=== PATIENT | female | born 1955 | race Caucasian/White ===

== ENCOUNTER → 2017-10-02 10:42 | Outpatient (CLI) | payer MEDICAID, SELFPAY ==
[2017-10-02 12:28] LABS: Anion Gap 8 (5-15); BUN 33 mg/dL (7-18); BUN/Creat Ratio 27.5 RATIO (10-20); Chloride 107 mmol/L (98-107); EST Glomerular Filtration Rate 48 mL/min (>60); Est Glom Filt Rate - Afr Amer 58 mL/min (>60); Glucose 97 mg/dL (70-110); Potassium 4.2 mmol/L (3.5-5.1); Sodium Level 137 mmol/L (136-145)
== END ==
PROVIDERS: Visit Provider Family Medicine
DX: N28.9 Disorder of kidney and ureter, unspecified (principal)
CPT/HCPCS: 36415; 80048

== ENCOUNTER → 2018-08-20 15:30 | Outpatient (CLI) | payer MEDICAID, SELFPAY ==
[2018-08-20 17:26] LABS: ALB/GLOB Ratio 1.1 RATIO (0.9-2.4); AST(SGOT) 14 U/L (15-37); Alanine Aminotransfer ALT/SGPT 24 U/L (13-56); Albumin, Serum 3.6 g/dL (3.2-5.0); Alkaline Phosphatase 91 U/L (45-117); Anion Gap 7 (5-15); BUN 32 mg/dL (7-18); BUN/Creat Ratio 24.6 RATIO (10-20); Calcium,Total 9.3 mg/dL (8.5-10.1); Chloride 111 mmol/L (98-107); EST Glomerular Filtration Rate 44 mL/min (>60); Est Glom Filt Rate - Afr Amer 53 mL/min (>60); Globulin 3.4 g/dL (2.2-4.2); Glucose 136 mg/dL (74-106); Potassium 3.8 mmol/L (3.5-5.1); Sodium Level 143 mmol/L (136-145)
[2018-08-20 17:32] LABS: Vitamin B12 1358 pg/mL (211-911); Vitamin D,25 Hydroxy 28.3 ng/mL (29.95-100.01)
== END ==
PROVIDERS: Family Provider Family Medicine; PCP Family Medicine; Visit Provider Family Medicine
DX: E55.9 Vitamin D deficiency, unspecified (principal); E53.8 Deficiency of other specified B group vitamins; Z51.81 Encounter for therapeutic drug level monitoring
CPT/HCPCS: 36415; 80053; 82306; 82607

== ENCOUNTER → 2020-02-08 14:49 | Outpatient (CLI) | payer MEDICARE, SELFPAY ==
[2020-02-08 17:06] LABS: Free T3 3.5 pg/mL (2.18-3.98); T4 Free Direct 1.18 ng/dL (0.76-1.46); T4 Total, Thyroxin 9.4 ug/dL (4.8-13.9); Thyroid Stim Hormone (TSH) 2.86 uIU/mL (0.358-3.74)
[2020-02-10 23:50] LABS: Anti-Thyroglobulin AB < 1.0 IU/mL (0.0-0.9); Thyroglobulin, Serum Qt. 4.8 ng/mL (1.5-38.5); Thyroxin Bind Glob (TBG) 18 ug/mL (13-39)
== END ==
PROVIDERS: PCP Family Medicine; Referring Provider Family Medicine; Visit Provider Family Medicine
DX: R53.83 Other fatigue (principal); R79.89 Other specified abnormal findings of blood chemistry
CPT/HCPCS: 36415; 82533; 84432; 84436; 84439; 84442; 84443; 84481; 86800

== ENCOUNTER 2021-10-20 14:00 | Outpatient (RCR) | payer MEDICARE, SELFPAY ==
--- NOTE | 2021-09-22 13:05 | HP.SP.AD_ITS ---
History - History Date of Eval: 09/22/21 Medical Diagnosis (from RX): CEREBAL PALSY Previous speech therapy: No Smoking Status: Never smoker Hx Smoking: No Hx Tobacco Use: No Hx Smoking Exposure: No - Pain Is pain an issue with your current prescribed condition?: No - Personal Right Hearing Abillity: Use of Hearing Aid Left Hearing Abillity: Use of Hearing Aid Visual Assistive Devices: Glasses Patients Living Arrangements: With Significant Other Subjective Oral Motor - Comments Comments: Patient experiencing muscle loss after hospitalization stay for pancreatitis. While hospitalized - recommended to be seen by PT and ST for muscle loss/weakness and speech intelligibility. Patient has extensive dental hx which is the sole reason for speech intelligibility / articulation concerns. Objective Oral Motor - Oral Status Dentition: Missing Teeth - Labial Impairment: WNL Observation at Rest: WNL Closure: WNL Pucker: WNL Retraction: WNL - Lingual Impairment: WNL Protrusion: WNL Retraction: WNL Lateralization: WNL - Jaw Comments Comments: Patient's jaw is not symmetrical - deviates to the left side. - Respiratory Status Respiratory Status: Room Air Other Impressions - Comments Impressions -: Patient referred to PT/ST for muscle loss s/p hospitalization for pancre atitis and difficulty w/ speech. Patient has extensive dental hx including - rotten teeth and inability for oral care as a child, infection in oral cavity in [id number] which caused pt. to pull all her teeth. Patient is edentulous - has ill fitting dentures. Reports that dentures do not fit properly (d/t pt.'s small oral cavity), rub against the gum tissue and causes inflammation, raw spots or bleeding. Cuts or scrapes on the gums can increase the risk of infection. Patient has learned to compensate for speech difficulties. Pt. and family report that she is at baseline for speech intelligibility / articulation. To unfamiliar communication partner (speech therapist) - patient is 98-100% intelligible w/ noted 2-3x pt. left off final consonant. Oral mech WNL - besides jaw out of alignment. Plan - Plan Plan: No further skilled ST warranted at this time. Re-consult speech therapy if condition changes. - Recommendations MBS: No Treatment Warranted: No Education - Patient has Indicated that the Following Identified Educational Needs: None The Patient has indicated that they have no educational or learning abilities that may effect their care.: Yes - Patient Instruction Patient Education: Treatment Plan Other Education: No further skilled ST warranted at this time - please re- consult should status change / worsen. Educated pt. on compensatory strategies to improve speech intelligibility re: slow rate, increase volume, put emphasis on all parts of the word. Patient already uses these compensatory strategies throughout structured / conversational speech. Person Taught: Patient Teaching Method: Discussion Response to teaching: Verbalize understanding
--- NOTE | 2021-09-22 13:50 | HP.PTEVAL ---
Patient's Visit Information SUAD HADDAD is a 66 year old F referred to Physical Therapy by Dr. Awa Hargrove DO with a diagnosis of CP. Date of Evaluation: 09/22/21 Physical Therapist: Phillip Melchor, DPT, OCS, CSCS - Visit Plan Frequency: 1-2x /Week Duration: 2-4 Weeks Plan: 1-2x/week for 1-4 weeks keeping it to a minimum due to cost. Please teach patient gym based LE and postural exercises and balasnce ex and work to I after one visit if possible for Silver Sneakers continuance. - Subjective Dr. Hargrove sent her over a whikle ago after pancreatitis before covid but then covid hit. She was weak at the time. Still feels weak when she lowers down into the tub as this is challenging. was helping her get in and out of tub with grab bar. Can't trust muscles like she used to. Has CP and that was always a problem to some degree but more pronounced now and every day. Steps are done daily and they are hard to do and has someone carry stuff up steps for her. Uses stick to walk with for balance and has used it for 13 years when diagnosed with CP. Was falling alot at that time. No pain usually. No spinning or dizzyness regularly. 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 Not employed. No regular exercises. Spends day working on [employer] work adn studying and research. Mostly sitting. Standing long time is hard due to R LBP. Wants ot dance and needs strength adn balance. - Objective Ambulates with cane into PT aafter speech i. Trasnfers I needing UE support for weakness and l knee pain. Steps are with T only as L hurts and has not used it in years. Also requires rail and some pulling gently. LB and neck aROM min limited but no pain. LE AROM WFL, minor tightness in HS. 3+ strength knees, 3 in hip abd and ext and 4 in ankles. sensation LE WNL to gross light touch. Able to heel rasie easily. reflexes patella and achilles 2/3. UE aROM limited in shoulder flexion but not painful, strength 3+/5. Balance is functional albeit low for her age and pt is hesitant and fearful without cane. 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 Rehabilitation Potential: Fair - Anticipated Interventions Patient/Client Instruction: Educate patient on: Condition, Plan of Care For the Purpose of:: To improve muscle performance and motor function, To increase tolerance to activity/condition/position Therapeutic Exercise to Include: Strength training, Postural training, Flexibilty training For the Purpose of:: To improve muscle performance and motor function, To increase tolerance to activity/condition/position Thank you for the opportunity to evaluate your patient. For Medicare and Medicare HMO plans, please review the plan of care and approve it. It will need to be FAXED BACK to us at [phone] for Medicare purposes. For Medicare only, by signing this I certify the plan of care. Please let me know if there are questions or concerns regarding this plan of care. Physician Signature: Date:
--- NOTE | 2022-01-05 08:09 | HP.PTDCSUM ---
It has been my pleasure to treat SUAD HADDAD referred by Dr. Awa Hargrove DO, with the diagnosis of CP for a total of 2 visit(s). Discharge Date: Please see the following information for a summary of their discharge status. Subjective: Seeing pt for rest of her 2nd visit. Teaching her gym ex's - for her to do on her own after today or she may choose another PT appt to go over gym ex;s again. Objective/Function: bEFORE LEAVING- SHOWED HER WERE ALL MACHINES WERER LOCATED ONCE MORE. PT LEFT HER LIST OF EX'S Goal 1:: Pt I in Silver sneakers exercises in gym for LE and postural strength adn balance Goal Progress: to call if not able Plan: hold til end of December and d/c if no contact. She will call if problems. If there are questions or concerns regarding this patient's physical therapy, please feel free to call me at [phone]. Thank you for the referral of this patient. Sincerely, Phillip Melchor, DPT, OCS, CSCS Balance/Gait/Functional tests - Balance/Special Test Scores Functional Gait Assessment Score: 25 % Disability: 16.6700 Lower Extremity Functional Score: 37
== END 2021-10-20 19:00 | disposition home or self-care (01) ==
LOC: PT 14:00
PROVIDERS: PCP Family Medicine; Referring Provider Family Medicine; Visit Provider Family Medicine
DX: G80.9 Cerebral palsy, unspecified (principal); R53.1 Weakness; R47.89 Other speech disturbances
CPT/HCPCS: 92523; 97110; 97162

== ENCOUNTER → 2023-06-05 | Outpatient (CLI) | payer MEDICARE, SELFPAY | END | disposition home or self-care (01) | LOC: BFHLAB 15:11 → LABSPEC 15:14 | PROVIDERS: PCP Family Medicine; Referring Provider Family Medicine; Visit Provider Family Medicine | DX: N39.0 Urinary tract infection, site not specified (principal) | CPT/HCPCS: 87077; 87086; 87088; 87186 ==

== ENCOUNTER 2023-07-25 17:01 | Inpatient (IN) | payer MEDICARE, SELFPAY ==
[2023-07-25] VITALS (12 sets, daily range): BP systolic 136–213; BP diastolic 82–124; PULSE 55–86; RESP 17–22; TEMP 36.2–36.8; O2SAT 96–97; BMI 29.5; BMI 28.3
--- NOTE | 2023-07-25 17:24 | EDS_ITS ---
HPI History of Present Illness Chief Complaint: Chest Pain PFSH PFSH Allergy/AdvReac Type Severity Reaction Status Date / Time No Known Allergies Allergy Verified 07/25/23 17:02 Social History Smoking Status: Never smoker EXAM Physical Exam Const Vital Signs: 07/25/23 17:02 07/25/23 17:08 07/25/23 17:25 Temperature 98.3 F Temperature Source Temporal Pulse Rate 74 Respiratory Rate 22 H Respiratory Effort Normal Non-Labored Blood Pressure 213/124 H Blood Pressure Mean 153 Pulse Ox 96 Oxygen Delivery Method Room Air Room Air [facility] [place] Medical decision making narrative: HISTORY OF PRESENT ILLNESS: 68-year-old female here with concern for chest pain. Notes chest pain is been ongoing for the last 8 hours. It is right-sided it is not an radiating it is nonexertional she denies any shortness of breath. No recent cough. No recent syncope. The patient denies recent surgery in the last 4 weeks or immobilization in the last 3 days, denies previous diagnosis of DVT or PE, hemoptysis, unilateral leg swelling or malignancy with treatment the last 6 months or palliative. No estrogen use noted. Patient denies sudden onset of pain, no tearing sensation, no migratory symptoms, no new numbness, weakness or loss of sensation. Patient denies family history or personal history of [place] ective tissue disorders (Marfan's Syndrome, Elisa Danlos etc). Patient additionally notes several weeks of intermittent breast tenderness. She notes she felt a mass in her right breast. She notes she saw her primary care physician several weeks ago and this was noted at that time it was agreed that she would get confirmatory testing as outpatient but has not received this testing as of yet. Notes family history of breast cancer in her mother REVIEW OF SYSTEMS: Pertinent positives: Chest pain, palpitations, breast mass Pertinent negatives: Syncope, shortness of breath, cough, vomiting PHYSICAL EXAM: Nursing triage notes reviewed, Vital signs reviewed Constitutional: please see mdm HENT: MMM Eyes: Pupils equal round and reactive to light, Extraocular muscles intact Neck: No stridor, no JVD, full neck ROM Lungs: Clear to auscultation, No wheezing or rales. No increased work of breathing, no conversational dyspnea, no accessory muscle use, no nasal flaring. No respiratory distress noted Breast: Breast exam performed jalyn Liang RN present. Right breast with nipple retraction, there is ecchymosis noted to right lateral quadrant, is a palpable mass in this area. There is no warmth, no overlying erythema, crepitus, bullae no fluctuance. The mass is mobile. Heart: Regular rate and rhythm, No murmurs, No rubs and No gallops, 2+ distal pulses (radial, femoral, posterior tibial) in all extremities Abdomen: Soft, there is no tenderness, rigidity, rebound or guarding, no obvious peritoneal signs, no palpable pulsatile abdominal masses, no auscultated abdominal bruit : No CVAT Extremities: No edema Neuro: No focal neurological deficits, cranial nerves II through XII intact, 5/5 strength in all extremities. Intact sensation to light touch in all extremities, 2+ reflexes bilateral patella tendons. Normal gait. No ataxia. Skin: No rash or lesions noted MEDICAL DECISION MAKING: Chief Complaint: Chest pain External records reviewed: No recent cardiac catheterization stress test or echocardiograms noted in the chart Factors affecting care: Hypertension Social determinants of health: Denies cocaine or methamphetamine abuse History obtained from others: Consults: Cardiology (Dr. Hernandez), internal medicine (Dr. Torrez) MDM Narrative: Patient was initially hypertensive otherwise hemodynamically stable and afebrile. No focal cardiopulmonary abnormalities I considered the following differential diagnosis: ACS, pneumonia, PE, anemia, electrolyte disturbance, breast cancer, breast abscess I obtained a broad lab and imaging workup to further elucidate the etiology of the patient's complaints. Given breast symptoms I wanted to obtain a confirmatory ultrasound however this was not available at this time given there is no staff available to conduct the study. Aside opted for CT scan of the patient's chest to further elucidate if there is a PE versus any signs of mass or infection in the right breast ALL IMAGES (IF OBTAINED) HAVE BEEN PERSONALLY REVIEWED AND INTERPRETED BY MYSELF. EKG with n sinus bradycardia, left axis deviation, no obvious ischemic changes Initial high-sensitivity troponin elevated consistent with myocardial ischemia, repeat high-sensitivity troponin continues to uptrend CBC with leukocytosis suggestive of s systemic inflammation, no anemia or thrombocytopenia BMP without significant Union normalities, there is no anion gap to suggest endorgan hypoperfusion, there is CKD BNP elevated consistent with increased myocyte stretch I have personally reviewed the patient's chest x-ray. Chest x-ray is unremarkable for pulmonary edema, pneumothorax, pneumonia or focal cardiopulmonary abnormality. CT scan of the chest shows no evidence of PE, noted stranding in the right breast concerning for infection or mastitis The synthesis of the patient's labs, images, history and physical exam are consistent with NSTEMI, ?breast infection or mass. No evidence of acute STEMI. No evidence of PE. Patient's right breast exam is concerning for breast cancer versus breast infection. Given white blood cell count and signs of stranding and other infectious changes on patient's CT I gave her empiric vancomycin. Patient was admitted to PCU stable condition after starting heparin drip as per Dr. Mueller's recommendations. The patient and/or family, caregivers express understanding. The patient and/or family, caregivers agrees with the plan. Shared decision making: I will have a discussion with the patient and or visitors regarding risk/benefits of further testing or admission. They will be made aware of of the risk/benefits inherent in this decision they will be given the opportunity to voice understanding. Total critical care time today provided was at least 0 minutes. This excludes separately billable procedures. Critical care time (if documented) is secondary to the patient having high probability of clinically significant/life threatening deterioration in the patient's condition which required my urgent intervention. Impression: 1. Chest pain 2. Breast mass 3. NSTEMI 4. Leukocytosis 5. CKD 6. Right breast mastitis Dispo: Admit Lab Data Attestation: I reviewed the patient's lab results. Labs: Laboratory Results - last 24 hr 07/25/23 18:05 WBC 19.0 H RBC 4.88 Hgb 13.9 Hct 43.2 MCV 88.5 MCH 28.5 MCHC 32.2 RDW Std Deviation 45.2 H RDW Coeff of Rory 14.1 Plt Count 429 MPV 10.6 Immature Gran % (Auto) 0.500 Neut % (Auto) 88.1 H Lymph % (Auto) 5.4 L [place] % (Auto) 5.4 Eos % (Auto) 0.1 Baso % (Auto) 0.5 Absolute Neuts (auto) 16.7 H Absolute Lymphs (auto) 1.03 Nucleated RBC % 0 Radiography Diagnostic Testing: Clinical Impression(s) from Imaging Studies Chest X-Ray 07/25/23 17:50 IMPRESSION: No radiographic evidence of acute cardiopulmonary disease. Electronically Signed: Сергей Altman DO at 18:23 EST , Discharge Plan Triage Chief Complaint: Chest Pain ED Provider: Valentin Ceballos Dx/Rx/DC Orders Primary Care Provider: Awa Hargrove Referrals: Awa Hargrove DO [Primary Care Provider] -
--- NOTE | 2023-07-25 17:33 | ED.RN ---
NO OLD EKG
--- NOTE | 2023-07-25 17:50 | RAD_ITS ---
INDICATION: chest pain EXAMINATION/TECHNIQUE: X-RAY - XR Chest 1 View COMPARISON: FINDINGS: LINES/DEVICES: None. LUNGS: No consolidation, edema or effusion. No pneumothorax. MEDIASTINUM AND CARDIOVASCULAR STRUCTURES: Cardiac silhouette not enlarged. Central airways and mediastinal contour are unremarkable. BONES AND SOFT TISSUES: Mild degenerative vertebral changes. RAD/Chest 1 View (Portable) IMPRESSION: No radiographic evidence of acute cardiopulmonary disease. Electronically Signed: Сергей Altman DO at 18:23 [facility] ,
[2023-07-25 18:19] LABS: Absolute Lymphocyte Count 1.03 X10^3/uL (0.83-4.51); Absolute Neutrophil Count 16.7 X10^3/uL (2.0-7.7); Basophil# 0.09 X10^3/uL; Basophil% 0.5 % (0-1); Eosinophil# 0.01 X10^3/uL; Eosinophils% 0.1 % (0-5); Hematocrit 43.2 % (37-47); Hemoglobin 13.9 g/dL (12.0-15.0); Lymphocyte # 1.03 X10^3/ul (0.83-4.51); Lymphocyte % 5.4 % (19-41); Mean Corp Hgb Conc 32.2 g/dL (32-36); Mean Corpuscular Hgb 28.5 pg (27.0-32.0); Mean Corpuscular Volume 88.5 fL (81-99); Mean Platelet Vol. 10.6 fl (6.2-12.0); Monocyte# 1.02 X10^3/uL; Monocyte% 5.4 % (0-10); NRBC Flagged by Analyzer 0 % (0-5); Neutrophil # 16.73 X10^3/uL (2.7-7.7); Neutrophil % 88.1 % (47-70); Platelet Count 429 K/mm3 (150-450); RBC Distribution Width CV 14.1 % (11.6-14.6); RBC Distribution Width SD 45.2 fl (35.1-43.9); Red Blood Count 4.88 M/mm3 (4.2-5.4)
[2023-07-25] MEDS: Aspirin 81 MG TAB.CHEW 324 MG PO (18:42)
[2023-07-25 18:45] LABS: Anion Gap 10 (5-15); BUN 23 mg/dL (7-18); BUN/Creat Ratio 16.3 RATIO (10-20); Calcium,Total 9.3 mg/dL (8.5-10.1); Chloride 111 mmol/L (98-107); Creatinine, Serum 1.41 mg/dL (0.55-1.02); EST Glomerular Filtration Rate 39 mL/min (>60); Est Glom Filt Rate - Afr Amer 47 mL/min (>60); Estimated Creatinine Clearance 29.36 ml/min; Glucose 146 mg/dL (74-106); Potassium 3.7 mmol/L (3.5-5.1); Sodium Level 142 mmol/L (136-145)
--- NOTE | 2023-07-25 18:45 | CT_ITS ---
STUDY: CTA CHEST REASON FOR EXAM: Female, 68 years old. chest pain RADIATION DOSAGE (If Supplied By Facility): CTDIvol = ( 11.73 ) mGy, DLP = ( 445.75 ) mGycm TECHNIQUE: The examination was performed with the intravenous administration of IV 75mL Isovue-370. Post-processing of the angiographic images was performed, with multiplanar reformation and 3D reconstruction. Individualized dose optimization techniques were used for this CT. COMPARISON: FINDINGS: Normal enhancement of the main pulmonary artery and right and left pulmonary arteries. Normal enhancement of the bilateral peripheral pulmonary arteries. There is no demonstrated pulmonary embolism. Normal thoracic aorta and visualized great vessels. There is no demonstrated aortic dissection. Normal heart and pericardium. Normal mediastinum. Normal hilar regions. Normal visualized trachea and bronchi. The lungs are well expanded. 3 mm left upper lobe peripheral nodule, image 177, series 2. Normal pleura. Normal chest wall structures. Degenerative vertebral changes. Normal visualized upper abdomen. CT/CTA Chest W/WO Contrast IMPRESSION: No demonstrated pulmonary embolism or arterial dissection. Left upper lobe nodule likely a granuloma. Electronically Signed: Сергей Altman DO at 20:23 [facility] Reading Location ID and State: [facility] / [place] Tel [phone], Service support ,
[2023-07-25 19:40] LABS: BNP,B-Type NATRIURETIC PEPTIDE 383.4 pg/mL (0-100)
[2023-07-25 20:15] LABS: Reflex Troponin-HS? (from REC) Y
[2023-07-25 21:11] LABS: Troponin-I HS 2328 pg/mL (3.0-54.0)
[2023-07-25] MEDS: Vancomycin IV 1,000 MG/200 ML BAG 200 MG IV (21:26)
[2023-07-25] MEDS: HEPARIN/D5w 25,000 UNITS 25,000 UNITS/250 ML IV.SOLN. 9 UNITS CONT INF (21:27)
[2023-07-25] MEDS: Clonidine HCl 0.1 MG, Clonidine HCl 0.2 MG 0.3 MG PO (21:40)
[2023-07-25 21:54] LABS: Partial Thromboplast Time 28.7 Seconds (24.1-36.2)
[2023-07-25 21:59] LABS: International Normalized Ratio 1.1; Prothrombin Time (Protime)PT. 14.2 SECONDS (11.7-14.9)
[2023-07-25] MEDS: Metoprolol Tartrate 100 MG Tablet PO (22:51)
[2023-07-25] MEDS: 0.9% Normal Saline (500mL Bag) 500 ML 50 ML IV (22:51)
[2023-07-25] MEDS: Lisinopril 40 MG Tablet PO (22:52)
[2023-07-25] MEDS: 0.9% Saline Lock 10 ML Syringe IV (22:52)
--- NOTE | 2023-07-25 22:58 | HP.PCM.HOS_ITS ---
HPI - General General Date of Admission: 07/25/23 Date of Service: 07/25/23 Chief Complaint: Chest pain HPI Narrative SUAD MUSTAFA, is a 68 F who presents to the emergency department with acute onset chest pain since this morning. She woke up this morning with throbbing headache, and severe retrosternal chest pain radiating to the back. The pain was associated with sweating, nausea and vomiting. There were multiple episodes of dry eructations. She has occasionally had chest pain in the past but this was more severe. She resumed it would subside on its own but when the pain became unbearable came to the ED about 7 to 8 hours since the onset of pain. She has a history of resistant hypertension on clonidine, metoprolol, spironola ctone, lisinopril for her blood pressure. She suspects that she forgot her medications last night. At the time of presentation to the ED her blood pressures were extremely elevated above 200/120 mmHg. Over the last few days she is also noticing a tender lump on her right breast. This was seen previously and she was informed by the Nurse Practitioner regarding a suspected abscess per the patient. She has been treated with oral antibiotics in the past. There was minimal response. Does not smoke, no alcohol use, no other drug abuse. [facility] Medical History (Updated 07/25/23 @ 23:[address] Melecio Torrez MD) Chest pain CKD (chronic kidney disease) Hypertension Home Medications clonidine HCl 0.3 mg tablet 0.3 mg PO Q8H BP 07/25/23 [History Last Taken Unknown] ergocalciferol (vitamin D2) 1,250 mcg (50,000 unit) capsule (Vitamin D2) 50,000 unit PO QWEEK supplement 07/25/23 [History Last Taken Unknown] fenofibrate 54 mg tablet 54 mg PO DAILY CHOLESTEROL 07/25/23 [History Last Taken Unknown] lisinopril 40 mg tablet 40 mg PO BID BP 07/25/23 [History Last Taken Unknown] metoprolol tartrate 100 mg tablet 100 mg PO Q12H BP 07/25/23 [History Last Taken Unknown] multivitamin with folic acid 400 mcg tablet (Tab-A-Marcella) 1 tab PO DAILY supplement 07/25/23 [History Last Taken Unknown] spironolactone 25 mg tablet 25 mg PO DAILY DIURESIS 07/25/23 [History Last Taken Unknown] Allergy/AdvReac Type Severity Reaction Status Date / Time No Known Allergies Allergy Verified 07/25/23 17:02 Social History Smoking Status: Never smoker ROS Constitutional Constitutional: Reports malaise Cardiovascular Cardiovascular: Reports chest pain, lightheadedness, palpitations and rapid heart rate; Denies claudication, dyspnea on exertion, edema, paroxysmal nocturnal dyspnea or syncope Respiratory/Chest Respiratory/Chest: Reports cough and dyspnea Gastrointestinal Gastrointestinal: Reports nausea and vomiting; Denies abdominal pain Musculoskeletal Musculoskeletal: Reports back pain Vital Signs Vital Signs Vital Signs: 07/25/23 17:02 07/25/23 17:08 07/25/23 17:25 Temperature 98.3 F Temperature Source Temporal Pulse Rate 74 Respiratory Rate 22 H Respiratory Effort Normal Non-Labored Blood Pressure 213/124 H Blood Pressure Mean 153 Blood Pressure Source Blood Pressure Position Blood Pressure Location Pulse Ox 96 Oxygen Delivery Method Room Air Room Air 07/25/23 18:02 07/25/23 19:30 07/25/23 21:53 Temperature 98.2 F Temperature Source Pulse Rate 59 L 61 Respiratory Rate 19 H 20 H Respiratory Effort Blood Pressure 164/96 H 182/92 H Blood Pressure Mean 118 122 Blood Pressure Source Blood Pressure Position Blood Pressure Location Pulse Ox 96 Oxygen Delivery Method 07/25/23 20:00 07/25/23 21:00 07/25/23 22:32 Temperature 97.1 F L Temperature Source Temporal Pulse Rate 55 L 55 L 65 Respiratory Rate 17 18 18 Respiratory Effort Blood Pressure 178/96 H 182/92 H 168/94 H Blood Pressure Mean 119 118 118 Blood Pressure Source Monitor Blood Pressure Position Semi-Fowlers Blood Pressure Location Right Arm Pulse Ox 97 Oxygen Delivery Method Room Air 07/25/23 22:51 Temperature Temperature Source Pulse Rate 65 Respiratory Rate Respiratory Effort Blood Pressure Blood Pressure Mean Blood Pressure Source Blood Pressure Position Blood Pressure Location Pulse Ox Oxygen Delivery Method Weight Weight: 154 lb 15.759 oz Body Mass Index (BMI) 28.3 Physical Exam Narrative Registered nurse was present in the room throughout the examination as registered occupational therapist. The was also present in the room tenderness present in the right upper quadrant of the breast. No marco-areolar changes. No sinuses or skin changes. Results Lab / Micro Data Attestation: I reviewed the patient's lab results. 07/25/23 18:05 07/25/23 18:05 Labs: Laboratory Results - last 24 hr 07/25/23 18:05: WBC 19.0 H, RBC 4.88, Hgb 13.9, Hct 43.2, MCV 88.5, MCH 28.5, MCHC 32.2, RDW Std Deviation 45.2 H, RDW Coeff of Rory 14.1, Plt Count 429, MPV 10.6, Immature Gran % (Auto) 0.500, Neut % (Auto) 88.1 H, Lymph % (Auto) 5.4 L, [place] % (Auto) 5.4, Eos % (Auto) 0.1, Baso % (Auto) 0.5, Absolute Neuts (auto) 16.7 H, Absolute Lymphs (auto) 1.03, Nucleated RBC % 0, Sodium 142, Potassium 3.7, Chloride 111 H, Carbon Dioxide 21.0, Anion Gap 10, BUN 23 H, Creatinine 1.41 H, Estim Creat Clear Calc 29.36, Est GFR (MDRD) Af Amer 47 L, Est GFR (MDRD) Non-Af 39 L, BUN/Creatinine Ratio 16.3, Glucose 146 H, Calcium 9.3, Troponin I High Sens 1954 H*, B-Natriuretic Peptide 383.4 H 07/25/23 20:22: Troponin I High Sens 2328 H* 07/25/23 21:35: PT 14.2, INR 1.1, APTT 28.7 Imagaing Radiology Impression Chest X-Ray 07/25/23 17:50 IMPRESSION: No radiographic evidence of acute cardiopulmonary disease. Electronically Signed: Сергей Altman DO at 18:23 EST , Chest CTA 07/25/23 18:45 IMPRESSION: No demonstrated pulmonary embolism or arterial dissection. Left upper lobe nodule likely a granuloma. Electronically Signed: Сергей Altman DO at 20:23 EST , ADDENDUM: 07/25/232110 IMPRESSION: undefined Assessment & Plan Assessment/Plan (1) NSTEMI (non-ST elevated myocardial infarction): PLAN: Continue heparin, continue metoprolol, lisinopril, spironolactone, clonidine. Cardiology consulted, n.p.o. after midnight. (2) Hypertensive emergency without congestive heart failure: PLAN: Admit patient to [facility], close monitoring of vitals. Antihypertensive medications as before. Pressure is better controlled now. (3) Resistant hypertension: PLAN: Restart home antihypertensive medications. Close monitoring of blood pressure (4) CKD (chronic kidney disease): PLAN: Daily renal function test (5) Infection: PLAN: Start IV antibiotics. PLAN: Plan Ms Mustafa, presents to the ED with concerns of chest pain in the setting of high blood pressure. 1. ACS: The elevated troponin, clinical presentation and minimal changes on her EKG are suspicious for NSTEMI. This was discussed with the operations administrative assistant on-call, and the patient was started on heparin, aspirin was given. Her home medications were restarted with metoprolol, lisinopril, spironolactone and clonidine. Will keep her n.p.o. overnight if there are plans for cardiac catheterization in the morning. 2. Hypertensive emergency: She presented with a blood pressure of 212/122 in the setting of missing her antihypertensive medications. Given her presentation with severe headache, chest pain the NSTEMI could be because of the hypertensive emergency. We will initially restart all her home medications and gradually titrate to reduce her blood pressure back to her baseline. 3. Chronic kidney disease: Likely secondary to hypertensive nephrosclerosis. Continue to monitor for now 4. Right breast mass, abscess suspected: Start her on IV Augmentin for the suspected breast infection. Her leukocytosis could be because of the severe pain and ACS also. Charges/Coding Visit Charges Inpatient E&M: 45607 Init Hosp L2
[2023-07-25] MEDS: Nitroglycerin (INPATIENT USE) 0.4 MG TAB.SUBL SL (23:12)
[2023-07-25 23:28] LABS: Troponin-I HS (w/2H Reflex) 1954 pg/mL (3.0-54.0)
[2023-07-25] MEDS: Cefazolin 1 GM/50 ML BAG IV (23:35)
[2023-07-26] VITALS (11 sets, daily range): BP systolic 125–139; BP diastolic 61–86; PULSE 56–85; RESP 14–16; TEMP 36.2–36.6; O2SAT 93–96
[2023-07-26 01:48] LABS: Troponin-I HS 1815 pg/mL (3.0-54.0)
[2023-07-26 04:12] LABS: Absolute Lymphocyte Count 2.42 X10^3/uL (0.83-4.51); Absolute Neutrophil Count 10.1 X10^3/uL (2.0-7.7); Basophil% 0.7 % (0-1); Eosinophils% 0.7 % (0-5); Hematocrit 38.6 % (37-47); Hemoglobin 12.2 g/dL (12.0-15.0); Lymphocyte # 2.42 X10^3/ul (0.83-4.51); Lymphocyte % 16.6 % (19-41); Mean Corp Hgb Conc 31.6 g/dL (32-36); Mean Corpuscular Hgb 28.6 pg (27.0-32.0); Mean Corpuscular Volume 90.6 fL (81-99); Mean Platelet Vol. 10.7 fl (6.2-12.0); Monocyte# 1.78 X10^3/uL; Monocyte% 12.2 % (0-10); NRBC Flagged by Analyzer 0 % (0-5); Neutrophil # 10.13 X10^3/uL (2.7-7.7); Neutrophil % 69.2 % (47-70); POSITIVE DIFFERENTIAL YES; Platelet Count 363 K/mm3 (150-450); RBC Distribution Width CV 14.4 % (11.6-14.6); RBC Distribution Width SD 47.1 fl (35.1-43.9); Red Blood Count 4.26 M/mm3 (4.2-5.4); White Blood Count 14.6 K/mm3 (4.4-11.0)
[2023-07-26 04:20] LABS: Differential Indicated SCAN CRITERIA MET
[2023-07-26 04:21] LABS: Partial Thromboplast Time 45.6 Seconds (24.1-36.2)
[2023-07-26 04:29] LABS: International Normalized Ratio 1.1; Prothrombin Time (Protime)PT. 14.7 SECONDS (11.7-14.9)
[2023-07-26 04:31] LABS: AST(SGOT) 22 U/L (15-37); Alanine Aminotransfer ALT/SGPT 26 U/L (13-56); Albumin, Serum 3.2 g/dL (3.2-5.0); Alkaline Phosphatase 68 U/L (45-117); Anion Gap 8 (5-15); BUN 23 mg/dL (7-18); BUN/Creat Ratio 18.3 RATIO (10-20); Bilirubin, Direct 0.12 mg/dL (0.00-0.30); Calcium,Total 8.5 mg/dL (8.5-10.1); Chloride 114 mmol/L (98-107); Creatinine, Serum 1.26 mg/dL (0.55-1.02); EST Glomerular Filtration Rate 45 mL/min (>60); Est Glom Filt Rate - Afr Amer 54 mL/min (>60); Estimated Creatinine Clearance 32.86 ml/min; Globulin 3.1 g/dL (2.2-4.2); Glucose 109 mg/dL (74-106); Potassium 3.6 mmol/L (3.5-5.1); Protein, Total 6.3 g/dL (6.4-8.2); Sodium Level 142 mmol/L (136-145)
[2023-07-26 04:35] LABS: Differential Comment SCANNED; Platelet Morphology LARGE
[2023-07-26 04:38] LABS: BNP,B-Type NATRIURETIC PEPTIDE 1014.8 pg/mL (0-100)
[2023-07-26] MEDS: cloNIDine HCl 0.1 MG Tablet 0.3 MG PO ×3 (05:18→21:01)
--- NOTE | 2023-07-26 07:59 | PCM.PN.HOSP ---
Reason for Visit Reason for Visit: Diagnoses Unspecified infectious disease (07/26/23) Hypertensive emergency (07/26/23) Resistant hypertension (07/26/23) Non-ST elevation (NSTEMI) myocardial infarction (07/26/23) Chronic kidney disease, unspecified (07/26/23) Subjective Subjective Patient is a 68-year-old lady admitted with chest pain and palpitations. Patient was found to have elevated troponin consistent with acute non-STEMI. Was also found to have markedly elevated blood pressure admitted to a monitored bed for subsequent management Objective Data Objective Data Vital Signs: Vital Signs Temp Pulse Resp BP Pulse Ox O2 Del Method 97.1 F L 64 16 126/66 H 95 Room Air 07/26/23 03:23 07/26/23 05:15 07/26/23 03:23 07/26/23 05:15 07/26/23 03:23 07/26/23 03:39 Oxygen Delivery Method Room Air Weight: 70.3 kg Body Mass Index (BMI) 28.3 Intake & Output: Intake and Output for Last 24 Hours 07/24/23 07/25/23 07/26/23 23:59 23:59 23:59 Intake Total 400 / 400 163.45 / 163.45 Balance 400 / 400 163.45 / 163.45 Lab / Micro Data 07/26/23 03:50 07/26/23 03:50 Labs: Laboratory Results - last 24 hr 07/25/23 18:05: WBC 19.0 H, RBC 4.88, Hgb 13.9, Hct 43.2, MCV 88.5, MCH 28.5, MCHC 32.2, RDW Std Deviation 45.2 H, RDW Coeff of Rory 14.1, Plt Count 429, MPV 10.6, Immature Gran % (Auto) 0.500, Neut % (Auto) 88.1 H, Lymph % (Auto) 5.4 L, [place] % (Auto) 5.4, Eos % (Auto) 0.1, Baso % (Auto) 0.5, Absolute Neuts (auto) 16.7 H, Absolute Lymphs (auto) 1.03, Nucleated RBC % 0, Sodium 142, Potassium 3.7, Chloride 111 H, Carbon Dioxide 21.0, Anion Gap 10, BUN 23 H, Creatinine 1.41 H, Estim Creat Clear Calc 29.36, Est GFR (MDRD) Af Amer 47 L, Est GFR (MDRD) Non-Af 39 L, BUN/Creatinine Ratio 16.3, Glucose 146 H, Calcium 9.3, Troponin I High Sens 1954 H*, B-Natriuretic Peptide 383.4 H 07/25/23 20:22: Troponin I High Sens 2328 H* 07/25/23 21:35: PT 14.2, INR 1.1, APTT 28.7 07/26/23 00:55: Troponin I High Sens 1815 H* 07/26/23 03:50: WBC 14.6 H, RBC 4.26, Hgb 12.2, Hct 38.6, MCV 90.6, MCH 28.6, MCHC 31.6 L, RDW Std Deviation 47.1 H, RDW Coeff of Rory 14.4, Plt Count 363, MPV 10.7, Immature Gran % (Auto) 0.600, Neut % (Auto) 69.2, Lymph % (Auto) 16.6 L, [place] % (Auto) 12.2 H, Eos % (Auto) 0.7, Baso % (Auto) 0.7, Absolute Neuts (auto) 10.1 H, Absolute Lymphs (auto) 2.42, Nucleated RBC % 0, Differential Comment SCANNED, Diff Path Review December, Plt Morphology Comment LARGE, PT 14.7, INR 1.1, APTT 45.6 H, Sodium 142, Potassium 3.6, Chloride 114 H, Carbon Dioxide 20.0 L, Anion Gap 8, BUN 23 H, Creatinine 1.26 H, Estim Creat Clear Calc 32.86, Est GFR (MDRD) Af Amer 54 L, Est GFR (MDRD) Non-Af 45 L, BUN/Creatinine Ratio 18.3, Glucose 109 H, Calcium 8.5, Total Bilirubin 0.40, Direct Bilirubin 0.12, AST 22, ALT 26, Alkaline Phosphatase 68, B-Natriuretic Peptide 1014.8 H, Total Protein 6.3 L, Albumin 3.2, Globulin 3.1 Radiography Diagnostic Testing: Radiology Impression Chest X-Ray 07/25/23 17:50 IMPRESSION: No radiographic evidence of acute cardiopulmonary disease. Electronically Signed: Сергей Altman DO at 18:23 EST Reading Location ID and State: [facility] / [place] Tel [phone], Service support , Chest CTA 07/25/23 18:45 IMPRESSION: No demonstrated pulmonary embolism or arterial dissection. Left upper lobe nodule likely a granuloma. Electronically Signed: Сергей Altman DO at 20:23 EST Reading Location ID and State: [place] / [place] Tel [phone], Service support , ADDENDUM: 07/25/232110 IMPRESSION: undefined Physical Exam Narrative GENERAL: cooperative HEENT: Atraumatic; normocephalic EYES; Anicteric, Normal Conjunctiva NECK; supple, normal thyroid, RESPIRATORY: Diminished to auscultation CARDIOVASCULAR: Regular S1 S2, GI: soft, normoactive bowel sounds, : No Renal angle tenderness; EXTREMITIES: No edema, no clubbing, MUSCULOSKELETAL: no muscle wasting NEURO: Awake; no lateralizing signs. SKIN: No Rash PSYCH; Flat affect Assessment & Plan Assessment/Plan (1) NSTEMI (non-ST elevated myocardial infarction): (2) Hypertensive emergency without congestive heart failure: PLAN: Plan Patient is a 68-year-old lady admitted with chest pain and palpitations. Patient was found to have elevated troponin consistent with acute non-STEMI. Was also found to have markedly elevated blood pressure admitted to a monitored bed for subsequent management 1. Acute non-STEMI ? Treatment initiated per protocol with heparin antiplatelet therapy with aspirin patient is already on beta-blockers 8 continue added statin therapy. As part of her management serial cardiac enzymes and 2D echo ordered with consultation placed to cardiology 2. Acute hypertensive emergency ? Admitted to monitored bed treatment initiated with Lisinopril, clonidine, metoprolol. Goal is to keep systolic blood pressure less than 140 3. Acute congestive heart failure ? With suspected heart failure with preserved ejection fraction patient is on diuretics continued 4. Chronic kidney disease stage III ? Secondary to hypertensive nephrosclerosis monitor with daily BMPs 5. Right mass abscess ? Was thought to be an abscess started on Augmentin switched to Zosyn. Did request for ultrasound of the right breast and consultation placed to general surgery 6. Left upper lobe nodule likely a granuloma. ? Patient informed of above plan is to follow-up with serial CT to be organized by PCP 7. Dyslipidemia ? Patient is on fenofibrate and statin therapy 8. DVT prophylaxis ? Patient on heparin Time spent in the patient's overall evaluation,decision-making process, review of diagnostic data, adjustment of management, discussion with other providers, nursing nursing and ancillary staff involved in patient's care documentation, 52 Minutes Charges/Coding Visit Charges Inpatient E&M: 84310 [facility] Hosp L3
--- NOTE | 2023-07-26 08:03 | ECHOD_ITS ---
Reason For Study: s/p MT Procedure This was a 2D Doppler, Color Flow transthoracic echocardiogram. Exam performed portable in patient room. Left Ventricle Normal LV size. Moderate to severe concentric LV hypertrophy. Stage 1 diastolic dysfunction. The left ventricular ejection fraction is 50 %. Basal anterior, septal and basal lateral hypokinesis. Right Ventricle Normal right ventricle. Atria The left and right atria are normal. Mitral Valve Trivial mitral valve insufficiency. Tricuspid Valve Trivial tricuspid valve insufficiency. Normal pulmonary artery pressure. Aortic Valve Trisinus/trileaflet aortic valve. Pulmonic Valve The pulmonic valve is not well visualized. Great Vessels Normal sized aortic root. Pericardium/Pleural No pericardial effusion. MMode/2D Measurements & Calculations LVIDd: 4.2 cm IVSd: 1.7 cm Ao root diam: 3.5 cm LVIDs: 3.4 cm LVPWd: 1.5 cm LA dimension: 3.3 cm FS: 18.8 % LAV(MOD-bp): 32.7 ml LVAd ap4: 22.5 cm2 SV(MOD-sp4): 27.8 ml LAV(MOD-bp) Indexed: 19.1 ml/m2 LVLd ap4: 7.1 cm LAV(MOD-sp2): 35.4 ml EDV(MOD-sp4): 57.6 ml LAV(MOD-sp4): 28.5 ml EDV(sp4-el): 60.3 ml LVAs ap4: 14.2 cm2 LVLs ap4: 5.7 cm ESV(MOD-sp4): 29.8 ml ESV(sp4-el): 30.1 ml EF(MOD-sp4): 48.2 % EF(sp4-el): 50.1 % SV(sp4-el): 30.2 ml LA A4 area: 12.8 cm2 RA A4 area: 12.5 cm2 TAPSE: 1.7 cm Time Measurements MV dec time: 0.23 sec Doppler Measurements & Calculations MV E max quique: 53.6 cm/sec Lat Peak E' Quique: 5.5 cm/sec Med Peak E' Quique: 4.5 cm/sec MV A max quique: 87.1 cm/sec E/E' lat: 9.8 E/E' med: 11.9 MV E/A: 0.62 MV V2 max: 96.9 cm/sec MV P1/2t max quique: 61.2 cm/sec Ao V2 max: 111.4 cm/sec MV max P.8 mmHg MV P1/2t: 81.5 msec Ao max P.0 mmHg MV V2 mean: 44.3 cm/sec MV dec slope: 220.0 cm/sec2 MV mean P.96 mmHg MV V2 VTI: 25.8 cm MVA(P1/2t): 2.7 cm2 LV V1 max: 87.4 cm/sec PA V2 max: 80.4 cm/sec TR max quique: 229.3 cm/sec LV V1 max P.1 mmHg PA V2 mean: 55.3 cm/sec TR max P.0 mmHg LV V1 mean P.6 mmHg LV V1 mean: 57.5 cm/sec LV V1 VTI: 19.2 cm ECHO/Echo Complete Interpretation Summary Moderate to severe concentric LV hypertrophy Basal anterior, septal and basal lateral hypokinesis Stage 1 diastolic dysfunction. The left ventricular ejection fraction is 50 %. Ordering Physician: Ronald Lowe Referring Physician: Awa Hargrove Performed By: Armando Benoit RCS
[2023-07-26] MEDS: Lisinopril 40 MG Tablet PO ×2 (09:22→21:02)
[2023-07-26] MEDS: Fenofibrate 48 MG Tablet PO (09:22)
[2023-07-26] MEDS: Metoprolol Tartrate 100 MG Tablet PO ×2 (09:22→21:02)
[2023-07-26] MEDS: Cefazolin 1 GM/50 ML BAG IV ×3 (09:32→21:02)
--- NOTE | 2023-07-26 09:35 | PCM.CONS.C ---
Assessment & Plan Assessment/Plan (1) NSTEMI (non-ST elevated myocardial infarction): PLAN: Continue aspirin. Beta-blockers. Coronary angiography recommended. Risks benefits and alternatives explained. She understand these and wishes to proceed. (2) Resistant hypertension: PLAN: Add hydrochlorothiazide. On clonidine, lisinopril and metoprolol. (3) CKD (chronic kidney disease): PLAN: Monitor creatinine. HPI Consult Data Date of Consult: 07/26/23 HPI Narrative Reason for Consultation: NSTEMI HPI Narrative: This lady has past medical history significant for resistant hypertension. She presented to the emergency room yesterday with complaints of anterior chest discomfort. According to her, it was a pressure across her anterior chest. No radiation to the arm neck or jaw. Some associated shortness of breath. Per her, it lasted for more than an hour. Patient's workup revealed elevated troponin ruling her in for NSTEMI. Patient denies any previous history of heart disease. [facility] Medical History (Updated 07/25/23 @ 23:[address] Melecio Torrez MD) Chest pain CKD (chronic kidney disease) Hypertension Home Medications clonidine HCl 0.3 mg tablet 0.3 mg PO Q8H BP 07/25/23 [History Last Taken Unknown] ergocalciferol (vitamin D2) 1,250 mcg (50,000 unit) capsule (Vitamin D2) 50,000 unit PO QWEEK supplement 07/25/23 [History Last Taken Unknown] fenofibrate 54 mg tablet 54 mg PO DAILY CHOLESTEROL 07/25/23 [History Last Taken Unknown] lisinopril 40 mg tablet 40 mg PO BID BP 07/25/23 [History Last Taken Unknown] metoprolol tartrate 100 mg tablet 100 mg PO Q12H BP 07/25/23 [History Last Taken Unknown] multivitamin with folic acid 400 mcg tablet (Tab-A-Marcella) 1 tab PO DAILY supplement 07/25/23 [History Last Taken Unknown] spironolactone 25 mg tablet 25 mg PO DAILY DIURESIS 07/25/23 [History Last Taken Unknown] Allergy/AdvReac Type Severity Reaction Status Date / Time No Known Allergies Allergy Verified 07/25/23 17:02 Social History Smoking Status: Never smoker Physical Exam Narrative Comfortable. No apparent distress. Heart sounds 1 and 2 are normal. No murmurs or rubs are noted. Chest is clear to auscultation bilaterally. Alert oriented x 3. No ankle edema. Risk Stratification Risk Stratification Applicable: No Objective Data Vital Signs: Vital Signs Temp Pulse Resp BP Pulse Ox O2 Del Method 97.9 F 62 16 139/86 H 93 Room Air 07/26/23 09:19 07/26/23 09:22 07/26/23 09:19 07/26/23 09:19 07/26/23 09:19 07/26/23 09:19 Oxygen Delivery Method Room Air Weight: 154 lb 15.759 oz Body Mass Index (BMI) 28.3 Intake & Output: Intake and Output for Last 24 Hours 07/24/23 07/25/23 07/26/23 23:59 23:59 23:59 Intake Total 400 / 400 629.28 / 629.28 Balance 400 / 400 629.28 / 629.28 Lab / Micro Data Attestation: I reviewed the patient's lab results. 07/26/23 03:50 07/26/23 03:50 Labs: Laboratory Results - last 24 hr 07/25/23 18:05: WBC 19.0 H, RBC 4.88, Hgb 13.9, Hct 43.2, MCV 88.5, MCH 28.5, MCHC 32.2, RDW Std Deviation 45.2 H, RDW Coeff of Rory 14.1, Plt Count 429, MPV 10.6, Immature Gran % (Auto) 0.500, Neut % (Auto) 88.1 H, Lymph % (Auto) 5.4 L, [place] % (Auto) 5.4, Eos % (Auto) 0.1, Baso % (Auto) 0.5, Absolute Neuts (auto) 16.7 H, Absolute Lymphs (auto) 1.03, Nucleated RBC % 0, Sodium 142, Potassium 3.7, Chloride 111 H, Carbon Dioxide 21.0, Anion Gap 10, BUN 23 H, Creatinine 1.41 H, Estim Creat Clear Calc 29.36, Est GFR (MDRD) Af Amer 47 L, Est GFR (MDRD) Non-Af 39 L, BUN/Creatinine Ratio 16.3, Glucose 146 H, Calcium 9.3, Troponin I High Sens 1954 H*, B-Natriuretic Peptide 383.4 H 07/25/23 20:22: Troponin I High Sens 2328 H* 07/25/23 21:35: PT 14.2, INR 1.1, APTT 28.7 07/26/23 00:55: Troponin I High Sens 1815 H* 07/26/23 03:50: WBC 14.6 H, RBC 4.26, Hgb 12.2, Hct 38.6, MCV 90.6, MCH 28.6, MCHC 31.6 L, RDW Std Deviation 47.1 H, RDW Coeff of Rory 14.4, Plt Count 363, MPV 10.7, Immature Gran % (Auto) 0.600, Neut % (Auto) 69.2, Lymph % (Auto) 16.6 L, [place] % (Auto) 12.2 H, Eos % (Auto) 0.7, Baso % (Auto) 0.7, Absolute Neuts (auto) 10.1 H, Absolute Lymphs (auto) 2.42, Nucleated RBC % 0, Differential Comment SCANNED, Diff Path Review May roman, Plt Morphology Comment LARGE, PT 14.7, INR 1.1, APTT 45.6 H, Sodium 142, Potassium 3.6, Chloride 114 H, Carbon Dioxide 20.0 L, Anion Gap 8, BUN 23 H, Creatinine 1.26 H, Estim Creat Clear Calc 32.86, Est GFR (MDRD) Af Amer 54 L, Est GFR (MDRD) Non-Af 45 L, BUN/Creatinine Ratio 18.3, Glucose 109 H, Calcium 8.5, Total Bilirubin 0.40, Direct Bilirubin 0.12, AST 22, ALT 26, Alkaline Phosphatase 68, B-Natriuretic Peptide 1014.8 H, Total Protein 6.3 L, Albumin 3.2, Globulin 3.1 Rhythm Strip Rhythm Strip: Sinus Rhythm Cardiology Labs/Tests 07/25/23 18:05: WBC 19.0 H, RBC 4.88, Hgb 13.9, Hct 43.2, MCV 88.5, MCH 28.5, MCHC 32.2, Plt Count 429, MPV 10.6, Immature Gran % (Auto) 0.500, Neut % (Auto) 88.1 H, Lymph % (Auto) 5.4 L, [place] % (Auto) 5.4, Eos % (Auto) 0.1, Baso % (Auto) 0.5, Absolute Neuts (auto) 16.7 H, Nucleated RBC % 0, Sodium 142, Potassium 3.7, Chloride 111 H, Carbon Dioxide 21.0, Anion Gap 10, BUN 23 H, Creatinine 1.41 H, Est GFR (MDRD) Af Amer 47 L, Est GFR (MDRD) Non-Af 39 L, BUN/Creatinine Ratio 16.3, Glucose 146 H, Calcium 9.3, B-Natriuretic Peptide 383.4 H 07/25/23 21:35: PT 14.2, INR 1.1, APTT 28.7 07/26/23 03:50: WBC 14.6 H, RBC 4.26, Hgb 12.2, Hct 38.6, MCV 90.6, MCH 28.6, MCHC 31.6 L, Plt Count 363, MPV 10.7, Immature Gran % (Auto) 0.600, Neut % (Auto) 69.2, Lymph % (Auto) 16.6 L, [place] % (Auto) 12.2 H, Eos % (Auto) 0.7, Baso % (Auto) 0.7, Absolute Neuts (auto) 10.1 H, Nucleated RBC % 0, PT 14.7, INR 1.1, APTT 45.6 H, Sodium 142, Potassium 3.6, Chloride 114 H, Carbon Dioxide 20.0 L, Anion Gap 8, BUN 23 H, Creatinine 1.26 H, Est GFR (MDRD) Af Amer 54 L, Est GFR (MDRD) Non-Af 45 L, BUN/Creatinine Ratio 18.3, Glucose 109 H, Calcium 8.5, Total Bilirubin 0.40, Direct Bilirubin 0.12, B-Natriuretic Peptide 1014.8 H Rhythm: EKG: Normal sinus rhythm. T wave changes in inferior leads. ECHO: Stress Test: Cardiac Cath: PCI: CT Surgery: Holter monitor: EPS: PPM: CXR: Chest CT Scan: Radiography Diagnostic Testing: Radiology Impression Chest X-Ray 07/25/23 17:50 IMPRESSION: No radiographic evidence of acute cardiopulmonary disease. Electronically Signed: Сергей Altman DO at 18:23 EST Reading Location ID and State: [facility] / [place] Tel [phone], Service support , Chest CTA 07/25/23 18:45 IMPRESSION: No demonstrated pulmonary embolism or arterial dissection. Left upper lobe nodule likely a granuloma. Electronically Signed: Сергей Altman DO at 20:23 EST Reading Location ID and State: [facility] / [place] Tel [phone], Service support , ADDENDUM: 07/25/232110 IMPRESSION: undefined
--- NOTE | 2023-07-26 10:00 | CASEMGMT ---
RN?CM?GASTROENTEROLOGY MANAGER?CM?to room to meet with patient for initial transition planning/care coordination?assessment.?RN?CM?introduced self and role at [facility].? Pt voices understanding and consents to?assessment?at this time.? Pt resting in bed in no distress at this time.? Pt is A/O at this time and answers all questions appropriately.?? Care providers, pharmacy, and demographics verified/updated at this time. PCP: Dr Hargrove Specialists: none Preferred Pharmacy: [facility] Insurance: Johnna ARRIETA Prescription Benefit:?yes Living Will/HPOA:?Pt does not currently have LW/HCPOA and would like to complete. Ngozi BLUNT, made aware LNOK: , Paul. 8 biological children. 3 step-children Living Arrangements: Lives w/her in 2nd-floor apt w/a flight of stairs to go up. Pt states she does have difficulty w/the stairs. She would like info from JOSE RAUL re: housing. JOSE RAUL Melvin, made aware. Pt states her assists her in and out of tub. Pt manages her own medications. Pt and share home mgnt tasks. Transportation:? pt and both drive DME: States has the following DME:?cane, grab bars ?Pt states no need for further DME at this time.? HHC/SNF: No hx of either. Pt declines wanting HHC or OP therapy at this time. She was made aware, if she changes her mind once she returns home, to discuss this w/her PCP. She voices understanding. Pt wishes to return home and states has no concerns with going home at time of discharge and she states she feels safe to return home. CM?to follow for any further discharge planning/needs.? Pt voices no further concerns/needs at this time.? Advised pt to ask for?CM?if any further questions/concerns/needs arise.? Voices understanding. PLAN:??Home Lonnie LAURENN?RN?CM
--- NOTE | 2023-07-26 10:49 | CASEMGMT ---
Insurance review for hospitals In-network with [employer] insurance if transfer is recommended is as follows:. [facility], [place], [facility], [facility], [facility], [facility], [facility]), [place], [facility], [place], and . Pallavi Guadarrama, Discharge Planning Asst.
--- NOTE | 2023-07-26 11:00 | US_ITS ---
STUDY: ULTRASOUND BREAST - RIGHT REASON FOR EXAM: Female, 68 years old. Bruising in the upper-outer quadrant of the right breast. TECHNIQUE: Axial and longitudinal images of the RIGHT breast were performed with a high resolution ultrasound transducer. # OF IMAGES: 48 COMPARISON: Comparison is made with prior CT scan of the chest dated July 25, 2023. FINDINGS: RIGHT Breast: The upper-outer quadrant of the right breast was examined with ultrasound. There is evidence of dilated ducts with debris within the ducts. There is also evidence of a 1.1 cm x 0.8 cm x 0.6 cm cyst at the 9:00 position of the breast at 6 cm from the nipple. US/Breast Limited Unilateral IMPRESSION: Dilated ducts. 1.1 cm x 0.8 cm x 0.6 cm cyst at the 9:00 position of the breast at 6 sites from nipple. ASSESSMENT CATEGORY: BIRADS Category 2: Benign. A letter regarding these results will be sent to the patient by the facility within 30 days. Electronically Signed: Celestino Irizarry MD at 14:19 EST ,
--- NOTE | 2023-07-26 11:35 | CL.D_ITS ---
Patient Name: SUAD HADDAD Study Date: 07/26/2023 Performing: Zelalem Hernandez MD Ht: 62 inches 157.48 cm : 1955 Wt: 154.98 lbs 70.3 kg Age: 68 Gender: female BSA: 1.72 PROCEDURE(S) PERFORMED [id number])[facility] CLINICAL PROFILE AND INDICATIONS Indications: ACS <= 24 hrs Heart Failure: None Angina Classification Anginal Classification w/in 2 Weeks: CCS IV CAD Presentations: Non-STEMI. Symptom onset Date/Time: Time Not Available CONCLUSIONS Mild Prox RCA /Mid LAD LVEDP 23 mm Hg Coronary artery tortuosity suggestive of hypertensive heaert disease RECOMMENDATIONS Medical therapy Risk factor modification DESCRIPTION OF PROCEDURE The patient arrived to the procedure lab. The risks and benefits of the procedure as well as a full description of our services here and current unavailability of surgical backup were fully explained to the patient and/or their significant other prior to the catheterization. The Timeout was completed, verifying the correct patient and procedure. The patient's procedural site was prepped and draped in the usual fashion. Local anesthetic was given subcutaneously to right radial region with Lidocaine 2%. Using a modified Seldinger technique, arterial access was obtained via the right ulnar artery, a 6Fr sheath was inserted. Right Coronary Artery selective angiography was then performed in multiple views using a 5 Fr. 4.0 Pennock catheter. LV to AO pullback pressures were then recorded. Left Coronary Artery selective angiography was performed in multiple views using a 5 Fr. 4.0 Pennock catheter.The arterial sheath was pulled and a TR Band was applied for hemostasis 10cc air CORONARY ANGIOGRAPHY DOMINANCE: Right Dominant LEFT HEART ASSESSMENT LVEDP: 23 mmHg LEFT MAIN: Angiographically normal LEFT ANTERIOR DESCENDING ARTERY: LAD: Tubular 20% Mid lesion in LAD CIRCUMFLEX ARTERY: Angiographically normal RIGHT CORONARY ARTERY: RCA: Tubular 30% Proximal lesion in RCA COMPLICATIONS No Complications PROCEDURE MEDICATIONS Versed 1 mg IV Fentanyl 50 mcg IV Versed 1 mg IV Morphine 25 mg IV Oxygen: 2 L/min via nasal cannula Oxygen: 3 L/min via nasal cannula Aspirin (325mg) 1 Tabs PO @ 07/26/2023 10:38:09 Nitro Tab .4 SL 07/26/2023 11:03:09 IV Bolus: .9 NaCl 250 ml total 07/26/2023 11:15:14 SUMMARY OF HEMODYNAMIC DATA Time AIR REST ECG 10:35:18 AO 103/65 (83) SA 11:15:02 LV 105/18, 24 11:17:11 LV 114/18, 21 11:17:19 LVp 110/18, 23 11:17:24 AOp 109/72 (90) 11:17:31 11:31:04 Signed By Zelalem Hernandez MD On 07/26/2023 11:35:06 Zelalem Hernandez MD
--- NOTE | 2023-07-26 11:36 | PCM.PN.BLA ---
Progress Note Mild proximal RCA and mid LAD disease. Chest pain and troponin elevation likely secondary to severe uncontrolled hypertension at presentation. Also consider vasospasm. Recommend adequate control of blood pressure. Start on amlodipine for possible vasospasm. Continue aspirin. Risk factor modification.
--- NOTE | 2023-07-26 12:36 | CASEMGMT ---
Social Work SW met w/pt, gave pt some resources for housing. Pt states that she has a [employer] application and just needs to complete it. Pt is agreeable also to a referral to [facility]. Referral made online. Pt is interested in completing LW/POA. SW gave pt the blank forms w/the SW dept number to make an appt, though will try to return to see pt this afternoon to complete the documents as time allows. LEO Duarte
[2023-07-26 14:26] LABS: Pathologist Review Reviewed
--- NOTE | 2023-07-26 16:20 | CASEMGMT ---
Social Work SW assisted pt in completing LW/POA. Pt listed her as POA. SW gave pt originals and copies, and copies placed on the chart. LEO Duarte
[2023-07-26] MEDS: Atorvastatin Calcium 40 MG Tablet PO (21:02)
[2023-07-27 03:15] VITALS: BP 124/79; PULSE 75; RESP 16; TEMP 36.3; O2SAT 95
[2023-07-27 06:00] VITALS: BP 134/111
[2023-07-27] MEDS: cloNIDine HCl 0.1 MG Tablet 0.3 MG PO (06:00)
[2023-07-27] MEDS: Cefazolin 1 GM/50 ML BAG IV (06:03)
[2023-07-27 06:23] LABS: Absolute Lymphocyte Count 2.05 X10^3/uL (0.83-4.51); Absolute Neutrophil Count 6.8 X10^3/uL (2.0-7.7); Basophil# 0.08 X10^3/uL; Basophil% 0.8 % (0-1); Eosinophil# 0.27 X10^3/uL; Eosinophils% 2.6 % (0-5); Hematocrit 35.3 % (37-47); Hemoglobin 11.1 g/dL (12.0-15.0); Lymphocyte # 2.05 X10^3/ul (0.83-4.51); Lymphocyte % 19.7 % (19-41); Mean Corp Hgb Conc 31.4 g/dL (32-36); Mean Corpuscular Hgb 28.9 pg (27.0-32.0); Mean Corpuscular Volume 91.9 fL (81-99); Mean Platelet Vol. 11.2 fl (6.2-12.0); Monocyte# 1.12 X10^3/uL; Monocyte% 10.8 % (0-10); NRBC Flagged by Analyzer 0 % (0-5); Neutrophil # 6.82 X10^3/uL (2.7-7.7); Neutrophil % 65.5 % (47-70); Platelet Count 301 K/mm3 (150-450); RBC Distribution Width CV 14.6 % (11.6-14.6); RBC Distribution Width SD 49.1 fl (35.1-43.9); Red Blood Count 3.84 M/mm3 (4.2-5.4); White Blood Count 10.4 K/mm3 (4.4-11.0)
[2023-07-27 06:46] LABS: Anion Gap 5 (5-15); BUN 30 mg/dL (7-18); BUN/Creat Ratio 21.7 RATIO (10-20); Calcium,Total 9.1 mg/dL (8.5-10.1); Chloride 113 mmol/L (98-107); Creatinine, Serum 1.38 mg/dL (0.55-1.02); EST Glomerular Filtration Rate 40 mL/min (>60); Est Glom Filt Rate - Afr Amer 49 mL/min (>60); Glucose 127 mg/dL (74-106); Magnesium 1.6 mg/dL (1.6-2.6); Phosphorus 2.7 mg/dL (2.5-4.9); Potassium 3.8 mmol/L (3.5-5.1); Sodium Level 140 mmol/L (136-145)
[2023-07-27 08:21] VITALS: BP 101/89; PULSE 79; RESP 16; TEMP 36.7; O2SAT 93
[2023-07-27] MEDS: Lisinopril 40 MG Tablet PO (08:36)
[2023-07-27] MEDS: amLODIPine 5 MG Tablet PO (08:36)
[2023-07-27 08:37] VITALS: PULSE 79
[2023-07-27] MEDS: Metoprolol Tartrate 100 MG Tablet PO (08:37)
[2023-07-27] MEDS: Multivitamins,Therapeutic Tablet 1 TABLET PO (08:37)
[2023-07-27] MEDS: Spironolactone 25 MG Tablet PO (08:37)
[2023-07-27] MEDS: Fenofibrate 48 MG Tablet PO (08:37)
[2023-07-27] MEDS: hydroCHLOROthiazide 25 MG Tablet PO (08:37)
--- NOTE | 2023-07-27 10:29 | PCM.DC.SUM ---
Providers Date of Admission: 07/26/23 Date of Discharge: 07/27/23 Primary Care Physician: Dr. Awa Hargrove, DO Consultations 07/26/23 08:00 Consult: Cardiology Routine Consulting Provider: Zelalem Hernandez Reason for Consult: NSTEMI EMERGENT Consult: No MD Notified: Yes Date Notified: 07/26/23 Time Notified: 08:01 Method of Notification: Text Reason For Visit: NSTEMI Diagnosis Discharge Diagnosis (1) NSTEMI (non-ST elevated myocardial infarction): Status: Acute Code(s): I21.4 - Non-ST elevation (NSTEMI) myocardial infarction (2) Hypertensive emergency without congestive heart failure: Status: Acute Code(s): I16.1 - Hypertensive emergency Plan Patient is a 68-year-old lady admitted with chest pain and palpitations. Patient was found to have elevated troponin consistent with acute non-STEMI. Was also found to have markedly elevated blood pressure admitted to a monitored bed for subsequent management 1. Acute non-STEMI ? Treatment initiated per protocol with heparin antiplatelet therapy with aspirin patient is already on beta-blockers 8 continue added statin therapy. As part of her management serial cardiac enzymes and 2D echo ordered with consultation placed to cardiology ? Patient left heart catheterization did not demonstrate any hemodynamically obstructive lesions. Case was discussed with cardiology was felt patient was possibly experiencing coronary vasospasm amlodipine was added to her treatment regimen. 2D echo obtained during patient hospital stay demonstrated Theleft ventricular ejection fraction is 50 %. Basal anterior, septal and basal lateral hypokinesis. 2. Acute hypertensive emergency ? Admitted to monitored bed treatment initiated with Lisinopril, clonidine, metoprolol. Goal is to keep systolic blood pressure less than 140 ? 07/27/2023; patient blood pressure did improve after addition of HCTZ and amlodipine per recommendations from cardiology. Prescriptions written on discharge for the patient. 3. Acute congestive heart failure ? With suspected heart failure with preserved ejection fraction patient is on diuretics continued 4. Chronic kidney disease stage III ? Secondary to hypertensive nephrosclerosis monitor with daily BMPs 5. Right mass abscess ? Was thought to be an abscess started on Augmentin switched to Zosyn. Did request for ultrasound of the right breast and consultation placed to general surgery 6. Left upper lobe nodule likely a granuloma. ? Patient informed of above plan is to follow-up with serial CT to be organized by PCP 7. Dyslipidemia ? Patient is on fenofibrate and statin therapy 8. DVT prophylaxis ? Patient on heparin Time spent in the patient's overall evaluation,decision-making process, review of diagnostic data, adjustment of management, discussion with other providers, nursing nursing and ancillary staff involved in patient's care documentation, 35 Minutes Medications at Discharge Home Medications clonidine HCl 0.3 mg tablet 0.3 mg PO Q8H BP 07/25/23 ergocalciferol (vitamin D2) 1,250 mcg (50,000 unit) capsule (Vitamin D2) 50,000 unit PO QWEEK supplement 07/25/23 fenofibrate 54 mg tablet 54 mg PO DAILY CHOLESTEROL 07/25/23 lisinopril 40 mg tablet 40 mg PO BID BP 07/25/23 metoprolol tartrate 100 mg tablet 100 mg PO Q12H BP 07/25/23 multivitamin with folic acid 400 mcg tablet (Tab-A-Marcella) 1 tab PO DAILY supplement 07/25/23 spironolactone 25 mg tablet 25 mg PO DAILY DIURESIS 07/25/23 amlodipine 5 mg tablet 5 mg PO DAILY 60 days #60 tabs 07/27/23 aspirin 81 mg capsule 81 mg PO DAILY #60 caps 07/27/23 atorvastatin 40 mg tablet 40 mg PO QHS #60 tabs 07/27/23 hydrochlorothiazide 25 mg tablet 25 mg PO BREAKFAST #60 tabs 07/27/23 Hospital Course Procedures 2-D Echocardiogram and Cardiac catheterization Summary of Care Provided Minutes Spent on Discharge: 35 Physical Exam Narrative GENERAL: cooperative HEENT: Atraumatic; normocephalic EYES; Anicteric, Normal Conjunctiva NECK; supple, normal thyroid, RESPIRATORY: Diminished to auscultation CARDIOVASCULAR: Regular S1 S2, GI: soft, normoactive bowel sounds, : No Renal angle tenderness; EXTREMITIES: No edema, no clubbing, MUSCULOSKELETAL: no muscle wasting NEURO: Awake; no lateralizing signs. SKIN: No Rash PSYCH; Flat affect Weight / BMI Weight Weight: 70.3 kg Body Mass Index (BMI) 28.3 ABG / Lab / Microbiology Data 07/27/23 05:30 07/27/23 05:30 Laboratory: Laboratory Results - last 24 hr 07/26/23 03:50: Diff Path Review Reviewed 07/27/23 05:30: WBC 10.4, RBC 3.84 L, Hgb 11.1 L, Hct 35.3 L, MCV 91.9, MCH 28.9, MCHC 31.4 L, RDW Std Deviation 49.1 H, RDW Coeff of Rory 14.6, Plt Count 301, MPV 11.2, Immature Gran % (Auto) 0.600, Neut % (Auto) 65.5, Lymph % (Auto) 19.7, [place] % (Auto) 10.8 H, Eos % (Auto) 2.6, Baso % (Auto) 0.8, Absolute Neuts (auto) 6.8, Absolute Lymphs (auto) 2.05, Nucleated RBC % 0, Sodium 140, Potassium 3.8, Chloride 113 H, Carbon Dioxide 22.0, Anion Gap 5, BUN 30 H, Creatinine 1.38 H, Estim Creat Clear Calc 30.00, Est GFR (MDRD) Af Amer 49 L, Est GFR (MDRD) Non-Af 40 L, BUN/Creatinine Ratio 21.7 H, Glucose 127 H, Calcium 9.1, Phosphorus 2.7, Magnesium 1.6 Radiography Diagnostic Testing: Radiology Impression Echocardiogram 07/26/23 08:03 Interpretation Summary Moderate to severe concentric LV hypertrophy Basal anterior, septal and basal lateral hypokinesis Stage 1 diastolic dysfunction. The left ventricular ejection fraction is 50 %. Ordering Physician: Ronald Lowe Referring Physician: Awa Hargrove Performed By: Armando Benoit RCS D/C Instructions Discharge Diet: 2000 mg Sodium Diet Discharge Activity: Return to Normal Activity Call your doctor if you observe: Fever of 101 or Higher, Shortness of breath, Fainting spells and Chest pain Meaningful Use Info Meaningful Use Diagnoses (Choose all that apply): AMI AMI/Post PCI/Angioplasty Aspirin given w/in 24hrs of arrival?: Yes ASA at discharge?: Yes Antiplatelet Therapy at Discharge:: No Reason Antiplatelet Therapy not ordered:: Not indicated Statins at discharge?: Yes Eric/ARB at discharge?: Yes Beta Shantel at discharge?: Yes Done w/ Acute NE measure.: Yes Documented LVEF (%): 50 Discharge Plan Admission Admit Date/Time: 07/26/23 00:00 Attending Provider: Ronald Lowe Primary Care Provider: Awa Hargrove Consulting Providers: Melecio Torrez; Zelalem Hernandez Discharge Orders/Prescriptions Prescriptions: New atorvastatin 40 mg Tablet 40 mg PO QHS Qty: 60 0RF amlodipine 5 mg Tablet 5 mg PO DAILY 60 Days Qty: 60 0RF hydrochlorothiazide 25 mg Tablet 25 mg PO BREAKFAST Qty: 60 0RF aspirin 81 mg capsule 81 mg PO DAILY Qty: 60 0RF Continued metoprolol tartrate 100 mg tablet 100 mg PO Q12H Patient Comments: TAKE 1 TABLET BY MOUTH TWICE DAILY clonidine HCl 0.3 mg tablet 0.3 mg PO Q8H Patient Comments: TAKE 1 TABLET BY MOUTH THREE TIMES DAILY lisinopril 40 mg tablet 40 mg PO BID Patient Comments: TAKE 1 TABLET BY MOUTH TWICE DAILY spironolactone 25 mg tablet 25 mg PO DAILY Patient Comments: TAKE 1 TABLET BY MOUTH EVERY DAY fenofibrate 54 mg tablet 54 mg PO DAILY Patient Comments: TAKE 1 TABLET BY MOUTH EVERY DAY ergocalciferol (vitamin D2) [Vitamin D2] 1,250 mcg (50,000 unit) capsule 50,000 unit PO QWEEK multivitamin with folic acid [Tab-A-Marcella] 400 mcg tablet 1 tab PO DAILY Referrals / Follow Up: Awa Hargrove DO [Primary Care Provider] - Within 1 Week Disposition Disposition (needs filled in before D/C Order can be placed): Home, Self Care Charges/Coding Visit Charges Inpatient E&M: 02585 Disch Hosp >30min
[2023-07-27 12:39] VITALS: BP 143/85; PULSE 76; RESP 16; TEMP 36.6; O2SAT 95
== END 2023-07-27 13:32 | disposition home or self-care (01) | DRG 281 ==
LOC: ED 21:28 → PCU 07-26 00:12
PROVIDERS: Admitting Provider Internal Medicine; Emergency Provider Emergency Medicine; PCP Family Medicine; Visit Provider Internal Medicine
DX: I21.4 Non-ST elevation (NSTEMI) myocardial infarction (principal); I50.30 Unspecified diastolic (congestive) heart failure; I16.1 Hypertensive emergency; J84.10 Pulmonary fibrosis, unspecified; N18.30 Chronic kidney disease, stage 3 unspecified; I12.9 Hypertensive chronic kidney disease with stage 1 through stage 4 chronic kidney disease, or unspecified chronic kidney disease; E78.5 Hyperlipidemia, unspecified; Z80.3 Family history of malignant neoplasm of breast; Z79.01 Long term (current) use of anticoagulants; N61.1 Abscess of the breast and nipple; Z79.82 Long term (current) use of aspirin
CPT/HCPCS: 36415; 71045; 71275; 76642; 80048; 80076; 83735; 83880; 84100; 84484; 85025; 85610; 85730; 93005; 93306; 93454; 99152; 99153; 99285; C1894; J7030; J7040; Q9957; Q9967; A4216; C1769

== ENCOUNTER → 2023-09-16 | Outpatient (CLI) | payer MEDICARE, SELFPAY ==
--- OUTSIDE RECORDS SUMMARY | 2023-09-16 14:07 | XMS RPT_ITS | CCD ---
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 Unavailable Bonko, Ronaldo A Unavailable Unavailable Bonko, Ronaldo A Unavailable Unavailable Bonko, Ronaldo A Unavailable Unavailable Bonko, Ronaldo A Unavailable Unavailable Bonko, Ronaldo A Unavailable Unavailable Bonko, Ronaldo A Unavailable Unavailable Bonko, Ronaldo A Unavailable Unavailable Bonko, Ronaldo A Unavailable Unavailable Bonko, Ronaldo A Unavailable Unavailable Bonko, Ronaldo A Unavailable Unavailable Bonko, Ronaldo A Unavailable Unavailable Bonko, Ronaldo A Unavailable Unavailable Malys, Awa A Unavailable Unavailable Malys, Awa A Unavailable Unavailable Malys, Awa A Unavailable Unavailable Unavailable Primary Care Provider Unavailabl e Malys, Awa A Primary Care Provider [phone] Ronaldo Butler. Unavailable Malys, Awa A Primary Care Provider Ronaldo Butler A. Unavailable HANNA VILA Attending Unavailab le MALYS, AWA A Primary Care Unavailable MALYS, AWA A Referring Unavailable HANNA VILA Attending Unavailab le MALYS, AWA A Primary Care Unavailable MALYS, AWA A Referring Unavailable RONALDO BUTLER ACammy Attending Unavailable MALYS, AWA A Primary Care Unavailable SYDNEE ROY Attending U navailable MALYS, AWA A Primary Care Unavailable MALYS, AWA A Referring Unavailable HANNA VILA Admitting Unavailab ANDREE Patel Attending Unavailab le HANNA VILA Referring Unavailab le MALYS, AWA A Primary Care Unavailable MALYS, AWA A Primary Care Unavailable STAREMYANDREE KAYY Attending Unavailab le STADNICK, ANDREE KAYY Referring Unavailab le AWA HARGROVE Primary Care Unavailable STADNICK, ANDREE KAYY Admitting Unavailab le STADNICK, ANDREE KAYY Referring Unavailab le AWA HARGROVE Primary Care Unavailable Awa Hargrove Primary Care Provider Aaw Hargrove Unavailable Elizabeth Patricio Unavailable Unavailabl e Allergies Allergy Classification Reported Allergen(s) Allergy Type Date of Onset Reaction(s) Facility (17 sources) amLODIPine; Translations: [Unknown] Propensity to adverse reactions to drug 7 Swelling/Edema [facility] Work Phone: (1 source) amLODIPine; Translations: [Norvasc] Drug Allergy AOF [facility] Repository (1 source) No Known Allergies; Translations: [No Known Allergies] Propensity to adverse reactions to drug (disorder) [facility] Repository Medications Current Medications Medication Drug Class(es) Dates Sig (Normalized) Sig (Original) Sodium Chloride-Aloe Vera Nasal [place] (2 sources) Start: 02-14-2018 take 1 spray(s) nasal route twice daily as needed sodium chloride-aloe vera [place] Indications: Nasal mucosa dry Instill 1 spray into each nostril 2 (two) times a day as needed. 22 mL 3 02/14/2018 Active cetirizine hydrochloride 10 mg oral tablet (9 sources) Histamine-1 Receptor Antagonist Start: 02-14-2018 End: 02-14-2019 take 1 tablet by mouth once daily cetirizine (ZYRTEC) 10 MG tablet Indications: Allergic rhinitis, unspecified seasonality, unspecified trigger Take 1 (one) tablet (10 mg total) by mouth daily. 30 tablet 5 02/14/2018 Active cloNIDine hydrochloride 0.3 mg oral tablet (15 sources) [place] alpha-2 Adrenergic Agonist Start: 09-06-2016 take 1 tablet by mouth three times daily cloNIDine HCl (CATAPRES) 0.3 MG tablet Take 0.3 mg by mouth 3 (three) times a day. 11 09/06/2016 Active Completed/Discontinued Medications Medication Drug Class(es) Dates Sig (Normalized) Sig (Original) sodium chloride-aloe vera [place] (1 source) Start: 02-14-2018 End: 05-12-2019 take 1 spray(s) nasal route twice daily as needed sodium chloride-aloe vera [place] Indications: Nasal mucosa dry Instill 1 spray into each nostril 2 (two) times a day as needed. 22 mL 3 02/14/2018 05/12/2019 Discontinued (Patient's Request) Problems Active Problems Problem Classification Problem Date Documented Date Episodic/Chronic Immunizations and screening for infectious disease (4 sources) Anti-nuclear factor positive; Translations: [Raised antinuclear antibody] Episodic Other ear and sense organ disorders (3 sources) Sensorineural hearing loss, bilateral; Translations: [Sensorineural hearing loss, bilateral] Chronic Other ear and sense organ disorders (1 source) Excessive cerumen in ear canal ; Translations: [Excessive cerumen in both ear canals] Episodic Other non-traumatic joint disorders (8 sources) Pain in left knee; Translations: [Left knee pain] Onset: 09-13-2016 09-13-2016 Other upper respiratory disease (1 source) Allergic rhinitis Chronic Other upper respiratory disease (2 sources) Nasal mucosa dry; Translations: [Bleeding from nose] Episodic Other upper respiratory disease (4 sources) Perforation of nasal septum; Translations: [Nasal septum perforation] Episodic Spondylosis; intervertebral disc disorders; other back problems (2 sources) Backache 02-24-2022 Episodic Past or Other Problems Problem Classification Problem Date Documented Da te Episodic/Chronic Other non-traumatic joint disorders (4 sources) Pain in left knee; Translations: [Left knee pain] Onset: 09-13-2016 09-13-2016 Episodic Other non-traumatic joint disorders (2 sources) Knee pain; Translations: [Left knee pain] Onset: 09-13-2016 09-13-2016 Episodic Results Test Name Value Interpretation Reference Range Facil ity Vital Signs Date Time Vital Sign Value Performing Clinician Facility 02-24-2022 20:37-0400 Diastolic blood pressure 106 mm[Hg] Awa Hargrove Other Phone: [facility] 02-24-2022 20:37-0400 Heart rate 76 /min Awa Hargrove Other Phone: [facility] 02-24-2022 20:37-0400 Respiratory rate 16 /min Awa Hargrove Other Phone: [facility] 02-24-2022 20:37-0400 SaO2% (BldA) [Mass fraction] 95 % Awa Hargrove Other Phone: [facility] 02-24-2022 20:37-0400 Systolic blood pressure 144 mm[Hg] Awa Hargrove Other Phone: [facility] 02-24-2022 17:58-0400 Body height 157.4 cm Awa Hargrove Other Phone: [facility] 02-24-2022 17:58-0400 Body temperature 97.88 [degF] Awa Hargrove Other Phone: [facility] 08-13-2019 13:10-0500 BMI (Body Mass Index) 32.74 kg/m2 [facility] 08-13-2019 13:10-0500 Body weight 81.19 kg [facility] 08-13-2019 13:10-0500 BP Diastolic 83 mm[Hg] [facility] 08-13-2019 13:10-0500 BP Systolic 148 mm[Hg] [facility] 08-13-2019 13:10-0500 Pulse (Heart Rate) 71 /min Andree [facility] 06-29-2019 09:23-0400 BMI (Body Mass Index) 32.19 kg/m2 [facility] 09:23-0400 Body [facility] 79.83 [facility]-2019 09:23-0400 BP Diastolic 66 mm[Hg] [facility] 06-29-2019 09:23-0400 BP Systolic 99 mm[Hg] [facility] 06-29-2019 09:23-0400 Height 157.5 cm [facility] 06-29-2019 09:23-0400 Pulse (Heart Rate) 67 /min [facility] 06-29-2019 09:23-0400 Pulse Oximetry 95 % Sydnee Roy [facility] 06-04-2019 14:50-0400 BMI (Body Mass Index) 31.77 kg/m2 [facility] 06-04-2019 14:50-0400 Body weight 78.[address] [facility] 06-04-2019 14:50-0400 BP Diastolic 77 mm[Hg] [facility] 06-04-2019 14:50-0400 BP Systolic 140 mm[Hg] [facility] 06-04-2019 14:50-[address] [facility] 06-04-2019 14:50-0400 Pulse (Heart Rate) 69 /min [facility] 06-04-2019 14:50-0400 Pulse Oximetry 95 % [facility] 05-12-2019 13:37-0400 BMI (Body Mass Index) 31.62 kg/m2 [facility] 05-12-2019 13:37-0400 Body weight 78.[address] [facility] 05-12-2019 13:37-0400 BP Diastolic 90 mm[Hg] [facility] 05-12-2019 13:37-0400 BP Systolic 159 mm[Hg] [facility] 05-12-2019 13:37-0400 Pulse (Heart Rate) 94 /min [facility] 05-12-2019 13:37-0400 Pulse Oximetry 91 % [facility] 02-14-2018 11:28-0400 BMI (Body Mass Index) 32.15 kg/m2 [facility] 02-14-2018 11:28-0400 BP Diastolic 73 mm[Hg] [facility] 02-14-2018 11:28-0400 BP Systolic 115 mm[Hg] [facility] 02-14-2018 11:28-[address] [facility] 02-14-2018 11:28-0400 Pulse (Heart Rate) 63 /min [facility] 02-14-2018 11:28-0400 Pulse Oximetry 96 % [facility] 02-14-2018 11:28-[address] [facility] Encounters Encounter Date Encounter Type Care Provider Facility Start: 02-24-2022 End: 02-24-2022 Emergency department patient visit Elizabeth Patricio [facility] Emergency 02 Start: 10-10-2020 End: 10-10-2020 Orders Only Queta Harvey Work Phone: [facility] Start: 08-18-2019 End: 08-18-2019 Documentation procedure Andree Ballesterosbasiliojuliocesar Work Phone: [facility] Start: 08-13-2019 End: 08-17-2019 Patient encounter procedure ANDREE KAYY SALEEMREMY [facility] Start: 08-13-2019 End: 08-13-2019 Patient encounter procedure HANNA TAMEZ [facility] Start: 08-13-2019 End: 08-13-2019 Subsequent hospital visit by physician Andree Flores Saleemremy Work Phone: [facility] Procedures Date Procedure Procedure Detail Performing Clinician Start: 08-13-2019 Urinalysis Andree pérez Saleembasiliojuliocesar Work Phone: Start: 08-13-2019 Standard chest X-ray Da sofi Ballesterosbasiliojuliocesar Work Phone: Plan of Treatment Date Care Activity Detail Author Start: 06-28-2020 End: 06-28-2020 Clinical Support 06/28/2020 Clinical Support Otolaryngology Ronaldo Butler AuD [address] [place] [address] [phone] [facility] Start: 05-03-2020 Influenza vaccination given Sequential Influenza Vaccine (#1) [facility] Start: 01-04-2020 End: 01-04-2020 Office Visit 01/04/2020 Office Visit Otolaryngology Hanna Vila, [place] [address] [facility] [address] [place] [address] [phone] [facility] Start: 06-30-2019 End: 06-30-2019 Office Visit 06/30/2019 Office Visit Orthopedic Surgery Hanna Vila CNP [address] [facility] [address] [place] [address] [phone] Andree Huffman MD [address] [place] [address] [phone] [facility] Start: 06-29-2019 End: 06-29-2019 Office Visit 06/29/2019 Office Visit Otolaryngology Sydnee Roy MD [address] [place] [address] [phone] [facility] Start: 06-25-2019 End: 06-25-2019 Hospital Encounter [facility] Start: 06-04-2019 End: 06-04-2019 Office Visit 06/04/2019 Office Visit Otolaryngology Hanna Vila CNP [address] [place] [address] [phone] [facility] Start: 05-03-2019 Influenza vaccination given SEQUENTIAL INFLUENZA VACCINE (#1) [facility] Start: 2018 Pneumococcal vaccination PNEUMOCOCCAL VACCINE AGE 65+ (1 of 2 - PCV13) [facility] Start: 06-20-2018 Ambulatory 06/20/2018 Hospital Encounter Ronaldo Butler AuD [address] [place] [address] [phone] [facility] Start: 05-03-2018 Influenza vaccination SEQUENTIAL INFLUENZA VACCINE (Season Ended) [facility] Start: 06-18-2017 Ambulatory 06/18/2017 Hospital Encounter Ronaldo Butler AuD [address] [place] [address] [facility] Start: 05-21-2017 Ambulatory 05/21/2017 Hospital Encounter Ronaldo Butler AuD [address] [place] [address] [facility] Start: 05-03-2017 Influenza vaccination SEQUENTIAL INFLUENZA VACCINE (#1) [facility] Work Phone: Start: 05-03-2017 SEQUENTIAL INFLUENZA VACCINE (#1) SEQUENTIAL INFLUENZA VACCINE (#1) [facility] Work Phone: Start: 2013 Zoster vacc, sc ZOSTER VACCINE [facility] Work Phone: Start: 2003 Administration of herpes zoster vaccine Zoster Vaccines (1 of 2) [facility] Start: 2003 Screening for malignant neoplasm of colon [facility] Start: 1971 Hepatitis C antibody, confirmatory test Hepatitis C Screening [facility] Start: 1969 COVID-19 Vaccine (1 of 2) COVID-19 Vaccine (1 of 2) [facility] Start: 1965 Adolescent depression screening assessment Depression Screening (PHQ9) [facility] Start: 1956 History and physical examination, annual for health maintenance Wellness Visit [facility] Start: 1953 Colonoscopy COLONOSCOPY [facility] Work Phone: Start: 1953 Depression screening using PHQ-9 (Patient Health Questionnaire 9) score DEPRESSION SCREENING (PHQ9) [facility] Start: 1953 Fall risk assessment Falls Risk Assessment [facility] Start: 1953 Hepatitis C antibody, confirmatory test HEPATITIS C SCREENING [facility] Start: 1953 HEPATITIS C SCREENING HEPATITIS C SCREENING [facility] Work Phone: Start: 1953 Microscopic observation Cyto stain Nom (Cvx) PAP SMEAR [facility] Work Phone: Start: 1953 Screening colonoscopy COLONOSCOPY [facility] Work Phone: Start: 1953 Screening for malignant neoplasm of cervix PAP SMEAR [facility] Work Phone: Start: 1953 Screening for malignant neoplasm of colon Colorectal Cancer Screening: Colonoscopy [facility] Start: 1953 Screening for osteoporosis Dexa Scan [facility] Start: 1953 Screening for substance abuse SUBSTANCE ABUSE SCREENING (AUDIT-C) [facility] Start: 1953 Screening mammography Mammogram [facility] Start: 1953 TETANUS EVERY 10 YR TETANUS EVERY 10 YR [facility] Work Phone: Start: 1953 Tetanus vaccination [facility] Work Phone: Abnormal finding on CT scan Abnormal finding on CT scan [facility] End: 08-13-2020 Extractable nuclear antigen antibody screening test KENROY Screen (SSA/B,SM,OYSTER CULTURIST,SCL70,JO1) Lab Routine Elevated antinuclear antibody (VINI) level 1 Occurrences starting 08/13/2019 until 08/13/2020 [facility] Payers Date Payer Category Payer Medicare MMO MANAGED MEDI CARE MMO MANAGED MEDICARE O xxxxxxx 2018-Present [id number] 2018 Medicare [id number] 2018 Medicare MMO MANAGED MEDI CARE MMO MANAGED MEDICARE O [id number] 2018-Present [id number] 2017 Unknown 1953 Unknown [id number] 1953 Unknown [id number] 1953 Unknown [id number] 1953 Unknown [id number] 1953 Unknown [id number] 1953 Unknown [id number] 1953 Unknown [id number] 1953 Unknown [id number] Medicaid [id number] Social History Date Type Detail Facility Start: 01-01-2017 End: 08-13-2019 Tobacco smoking status NHIS Never smoker [facility] Work Phone: Sex Assigned At Not on file [facility] Work Phone: Start: 05-12-2019 End: 08-13-2019 Alcohol intake Current non-drinker of alcohol (finding) [facility] Start: 08-13-2019 Tobacco use and exposure Never used [facility] Tobacco smoking consumption unknown [facility] Summary Purpose Family History No Family History Records FoundNo Family History Records FoundNo Family History Records FoundNo Family History Records FoundNo Family History Records Found Advance Directives No Advanced Directives Records FoundDocuments on File Type Date Recorded Patient Perinatal Technician Expl anation Advance Directives and Living Will Documents on File Type Date Recorded Patient Perinatal Technician Expl anation Advance Directives and Livin g Will 08/13/2019 2:07 PM Documents on File Type Date Recorded Patient Perinatal Technician Expl anation Advance Directives and Livin g Will 08/13/2019 2:07 PM Assessments Diagnosis Sensorineural hearing loss, bilateral - Primary Nasal mucosa dry Other diseases of nasal cavity and sinuses Epistaxis Allergic rhinitis, unspecifi ed seasonality, unspecified trigger Diagnosis Nasal septum perforation- Primary Other diseases of nasal cavity and sinuses Excessive cerumen in both ear canals Diagnosis Nasal septum perforation- Primary Other diseases of nasal cavity and sinuses VINI positive Diagnosis Sensorineural hearing loss, bilateral- Primary Diagnosis Nasal septum perforation- Primary Other diseases of nasal cavity and sinuses Elevated antinuclear antibody (VINI) level Other and unspecified nonspecific immunological findings Sensorineural hearing loss, bilateral Diagnosis Elevated antinuclear antibody (VINI) level Other and unspecified nonspecific immunological findings Perforated nasal septum Other diseases of nasal cavity and sinuses Diagnosis Elevated antinuclear antibody (VINI) level Other and unspecified nonspecific immunological findings History of Present Illness * Hanna Vila CNP - 05/12/2019 2:14 PM EDT ENT Clinic Follow up Note History of Present Illness Suad Haddad is a 63 y.o. y/o female presents for follow up regarding nasal perforation. She is a known patient in our clinic who presents today for a new concern. Patient reports approximately 1 month ago she was blowing her nose & noticed she had a hole in her nasal septum that shewas able to put her finger through & feel on the other side. She hears whistling when she breathes. She has a longstanding history of sinus symptoms and recurrent epistaxis. In the past she has tried zyrtec but did not have much change or relief in her symptoms so she discontinued it. Her primary care provider started her on Nasonex nasal spray 2- 3 weeks prior to her noticing the perforation in her nasal septum. She has since discontinued the nasonex. She denies any recreational drug activity, sensitivity to aspirin, asthma or excessive nose picking. Allergies Allergen Reactions Norvasc [Amlodipine] Past Medical History: Diagnosis Date CP (cerebral palsy) (HCC) Fractures Hyperlipidemia Hypertension Social History Socioeconomic History Marital status: Spouse name: Not on file Number of children: Not on file Years of education: Not on file Highest education level: Not on file Occupational History Not on file Social Needs Financial resource strain: Not on file Food insecurity: Worry: Not on file Inability: Not on file Transportation needs: Medical: Not on file Non-medical: Not on file Tobacco Use Smoking status: Never Smoker Smokeless tobacco: Never Used Substance and Sexual Activity Alcohol use: No Drug use: Not on file Sexual activity: Not on file Lifestyle Physical activity: Days per week: Not on file Minutes per session: Not on file Stress: Not on file Relationships Social connections: Talks on phone: Not on file Gets together: Not on file Attends denominational service: Not on file Active member of club or organization: Not on file Attends meetings of clubs or organizations: Not on file Relationship status: Not on file Other Topics Concern Not on file Social History Narrative Not on file History reviewed. No pertinent family history. Past Surgical History: Procedure Laterality Date GALLBLADDER TUBAL LIGATION The following systems were reviewed and revealed the following in addition to any already discussedin the HPI: Review of Systems Constitution: Negative for chills, decreased appetite, fever and weight loss. HENT: Positive for congestion (mild ), hearing loss (long histrory since the late 1969's, wears bilateral hearing amplification ), nosebleeds ( hx of epistaxis & has had scant bleeding from the nose over the last month) and tinnitus (Both ears). Negative for ear discharge, ear pain, hoarse voice and sore throat. Nasal irritation, drainage down the back of the throat, runny nose, throat clearing Patient noticed a perforation in her nasal septum approximately 1 month ago after using nasonex spray for 2-3 weeks Eyes: Negative for discharge, pain and redness. Cardiovascular: Negative for near-syncope, paroxysmal nocturnal dyspnea and syncope. Respiratory: Positive for cough ( occsaionally due to the drainage ). Negative for sleep disturbances due to breathing and snoring. Neurological: Positive for numbness (pt has neuropathy ). Negative for dizziness, headaches, light-headedness, loss of balance, paresthesias, vertigo and weakness. Allergic/Immunologic: Positive for environmental allergies (mild, worse in the spring and fall, notcurrently taking anything ). Negative for persistent infections. Physical Exam Vitals: 05/12/19 1337 BP: (!) 159/90 BP Location: Left arm Patient Position: Sitting BP Cuff Size: X-large Adult Pulse: 94 SpO2: 91% Weight: 78.4 kg (172 lb 14.4 oz) Physical Exam Constitutional: She is oriented to person, place, and time and well-developed, well-nourished, and in no distress. Vital signs are normal. She does not have a sickly appearance. No distress. HENT: Head: Normocephalic and atraumatic. Right Ear: Tympanic membrane and external ear normal. No drainage, swelling or tenderness. A foreign body (scant amount of cerumen cleaned with loop ) is present. No mastoid tenderness. No middle eareffusion. Decreased hearing (able to take voice, misses whisper) is noted. Left Ear: Tympanic membrane and external ear normal. No drainage, swelling or tenderness. A foreignbody (scant amount of cerumen cleaned with loop ) is present. No mastoid tenderness. No middle ear effusion. Decreased hearing (able to take voice, misses whisper) is noted. Nose: Rhinorrhea present. No mucosal edema, nose lacerations or sinus tenderness. Right sinus exhibits no maxillary sinus tenderness and no frontal sinus tenderness. Left sinus exhibits no maxillary sinus tenderness and no frontal sinus tenderness. Mouth/Throat: Uvula is midline, oropharynx is clear and moist and mucous membranes are normal. Eyes: Right eye exhibits no discharge. Left eye exhibits no discharge. Neck: Normal range of motion. Neck supple. Neurological: She is alert and oriented to person, place, and time. Gait normal. Skin: Skin is warm and dry. She is not diaphoretic. Procedure: With the patient in a sitting position utilizing the microscope excessive cerumen was found partially blocking both of the canals causing symptoms noted in physical exam. Excessive cerumen was removed from both ear canals using loop & forceps. The canals and tympanic membranes were then visualized and found to be without acute/chronic pathology. Assessment and Plan: Suad Haddad is a 63 y.o. y/o female who presents with nasal perforation. Subjective history & physical exam are consistent with nasal septum perforation. Patient reports this occurred after 2-3 weeks of using Nasonex nasal spray. She was educated to not using any nasal sprays in the future. She will be given mupirocin ointment & nasal saline gel to help sooth the perforation, aid in healing and to help prevent bleeding. Lab work will be performed to rule out we gener's disease. Patient wears bilateral hearing aids. Upon exam excessive cerumen was found partially blocking bilateral ear canals. Excessive cerumen was removed without difficulty using loop & forceps. There are no signs of acute or chronic pathology. Follow up in 3-4 weeks to evaluate nasal septum perforation & to review lab work results. 1. Nasal septum perforation - VINI; Future - mupirocin (BACTROBAN) 2 % ointment; Apply topically 3 (three) times a day . Dispense: 22 g; Refill: 0 - sodium chloride-aloe vera Gel; Apply topically 2 (two) times a day as needed . Dispense: 14.1 g; Refill: 3 Diagnoses and all orders for this visit: Nasal septum perforation - VINI; Future - mupirocin (BACTROBAN) 2 % ointment; Apply topically 3 (three) times a day . - sodium chloride-aloe vera Gel; Apply topically 2 (two) times a day as needed . Excessive cerumen in both ear canals Hanna Vila CNP documented in this encounter* Hanna Vila CNP - 06/04/2019 4:08 PM EDT ENT Clinic Follow up Note History of Present Illness Suad Haddad is a 63 y.o. y/o female presents for follow up regarding nasal septum perforation & positive VINI results. . She is a known patient in our clinic who was seen 3 weeks ago for a perforation in her nasal septumwhich occurred after using Nasonex nasal spray. Patient was educated to use mupirocin ointment & then transition to nasal saline gel daily. These medications were ordered to help with the dryness& irritation inside the nose, to prevent bleeding, & to prevent worsening of the nasal septum perforation. VINI was order to evaluate for potential Fernando's disease. Patient's VINI came back at 160. I sent a referral for the patient to follow up with rheumatology for further work up and management. Patient denies any bleeding from the nose. Reports she has been using the prescribed ointment &nasal saline gel as directed. She reports the ointments have helped with irritation inside the nose. She denies any recent fevers or infections. Patient's nose whistles due to the perforation in her septum, which is very bothersome for her. Allergies Allergen Reactions Norvasc [Amlodipine] Past Medical History: Diagnosis Date CP (cerebral palsy) (HCC) Fractures Hyperlipidemia Hypertension Nasal septal perforation Social History Socioeconomic History Marital status: Spouse name: Not on file Number of children: Not on file Years of education: Not on file Highest education level: Not on file Occupational History Not on file Social Needs Financial resource strain: Not on file Food insecurity: Worry: Not on file Inability: Not on file Transportation needs: Medical: Not on file Non-medical: Not on file Tobacco Use Smoking status: Never Smoker Smokeless tobacco: Never Used Substance and Sexual Activity Alcohol use: No Drug use: Not on file Sexual activity: Not on file Lifestyle Physical activity: Days per week: Not on file Minutes per session: Not on file Stress: Not on file Relationships Social connections: Talks on phone: Not on file Gets together: Not on file Attends denominational service: Not on file Active member of club or organization: Not on file Attends meetings of clubs or organizations: Not on file Relationship status: Not on file Other Topics Concern Not on file Social History Narrative Not on file History reviewed. No pertinent family history. Past Surgical History: Procedure Laterality Date GALLBLADDER TUBAL LIGATION The following systems were reviewed and revealed the following in addition to any already discussedin the HPI: Review of Systems Constitution: Negative for chills, decreased appetite, fever and weight loss. HENT: Positive for congestion (mild ), hearing loss (long histrory since the late 1970's, wears bilateral hearing amplification ) and tinnitus (Both ears). Negative for ear discharge, ear pain, hoarse voice, nosebleeds ( ) and sore throat. Drainage down the back of the throat, runny nose, throat clearing Patient noticed a perforation in her nasal septum approximately 2 month ago after using nasonex spray for 2-3 weeks. Reports the nasal gel is helping with irritation in the nose Eyes: Negative for discharge, pain and redness. Cardiovascular: Negative for near-syncope, paroxysmal nocturnal dyspnea and syncope. Respiratory: Positive for cough ( occsaionally due to the drainage ). Negative for sleep disturbances due to breathing and snoring. Neurological: Positive for numbness (pt has neuropathy ). Negative for dizziness, headaches, light-headedness, loss of balance, paresthesias, vertigo and weakness. Allergic/Immunologic: Positive for environmental allergies (mild, worse in the spring and fall, notcurrently taking anything ). Negative for persistent infections. Physical Exam Vitals: 06/04/19 1450 BP: 140/77 Pulse: 69 SpO2: 95% Weight: 78.8 kg (173 lb 11 oz) Height: 5' 2 Physical Exam Constitutional: She is oriented to person, place, and time and well-developed, well-nourished, and in no distress. Vital signs are normal. She does not have a sickly appearance. No distress. HENT: Head: Normocephalic and atraumatic. Right Ear: Tympanic membrane and external ear normal. No drainage, swelling or tenderness. No foreign bodies. No mastoid tenderness. No middle ear effusion. Decreased hearing (able to take voice, misses whisper) is noted. Left Ear: Tympanic membrane and external ear normal. No drainage, swelling or tenderness. No foreign bodies. No mastoid tenderness. No middle ear effusion. Decreased hearing (able to take voice, misses whisper) is noted. Nose: No mucosal edema, rhinorrhea, nose lacerations or sinus tenderness. Right sinus exhibits no maxillary sinus tenderness and no frontal sinus tenderness. Left sinus exhibits no maxillary sinus tenderness and no frontal sinus tenderness. Mouth/Throat: Uvula is midline, oropharynx is clear and moist and mucous membranes are normal. Eyes: Right eye exhibits no discharge. Left eye exhibits no discharge. Neck: Normal range of motion. Neck supple. Neurological: She is alert and oriented to person, place, and time. Gait normal. Skin: Skin is warm and dry. She is not diaphoretic. Assessment and Plan: Suad Haddad is a 63 y.o. y/o female who presents with nasal septum perforation & positive VINI. Upon physical exam nasal septum perforation is still present but has not changed in size. The nasalsaline gel does seem to be helping to maintain healthy tissue surrounding the perforation. Patient was educated to continue using nasal saline gel daily to help prevent dryness, irritation or bleeding from the nose. She was educated to avoid picking inside the nose so the perforation does not become larger. Patient has an appointment with scale balancer on 06/30/19 to discuss positive VINI of 160 & forfurther work up & management of potential Fernando's disease. Patient is bothered about the perforation in her nose because it makes a whistling noise which wakes her up at night. At this point she would not be a good surgical candidate for septum repair because she will most likely not heal well & it may only worsen the internal structure of her nose. Patient verbalized understanding & is in agreement with the plan. Follow up as needed for any related or non related problems or concerns in the future. 1. Nasal septum perforation - sodium chloride-aloe vera Gel; Apply topically 2 (two) times a day as needed . Dispense: 14.1 g; Refill: 11 Diagnoses and all orders for this visit: Nasal septum perforation - sodium chloride-aloe vera Gel; Apply topically 2 (two) times a day as needed . VINI positive Hanna Vila CNP documented in this encounter* Ronaldo Btuler, AuD - 06/25/2019 2:27 PM EDT [facility] [address] [place] [address] Name: Suad Haddad : 1955 Date: 06/25/19 Hearing Aid Contact Note: Ms. Haddad returned today for her annual hearing aid follow-up. She reports that she is doing very well with her hearing aids and she denies a decrease in hearing. However, she does feel that the right hearing aid occasionally works its way out of her ear canal. A visual inspection and listening check of her hearing aids was unremarkable. I cleaned her aids, changed her domes and replaced her waxtraps. Function was observed to be excellent. I increased the size of Ms. Haddad's dome on the right side to a medium vented dome. She reported an immediate increase in the feeling of security and animprovement in hearing. She requested I do the same for the other side. Ms. Haddad declined any changes to the output of the hearing aids stating that she was hearing well. Ms. Haddad will return as needed for hearing aid concerns and as scheduled for her routine follow-up. Ms. Haddad expressed agreement with an understanding of the above. Jodi Monge, CCC/A, FAAA MARIBETH Certified Elementary Substitute Teacher documented in this encounter* Piper Quintana MA - 06/29/2019 2:12 PM EDT * Sydnee Roy MD - 06/29/2019 11:40 AM EDT Subjective: Patient ID: Suad Haddad is a 63 y.o. female. Chief Complaint Patient presents with Follow-up positive VINI of 160 & for further work up & management of potential Fernando's disease HPI my reevaluation was requested due to complexity of refractory symptoms and suspected surgical abnormality. Reportedly, patient had developed spontaneous anterior nasal septum perforation, which was annoying due to constant whistling, especially at night. Patient denies associated trauma, cocaine use, illness or infection. She denies lung or throat problems but admits to some arthritis. Patient states that the nasal septum perforation is getting bigger and whistling is less based on her selfdigital examination. The following portions of the patient's history were reviewed and updated as appropriate: allergies, current medications, past family history, past medical history, past social history, past surgicalhistory and problem list. Review of Systems Constitutional: Negative. Negative for activity change, appetite change, chills, diaphoresis, fatigue and fever. HENT: Positive for nosebleeds. Negative for congestion, dental problem, drooling, ear discharge, ear pain, facial swelling, hearing loss, mouth sores, postnasal drip, rhinorrhea, sinus pressure, sinus pain, sneezing, sore throat, tinnitus, trouble swallowing and voice change. Eyes: Negative. Negative for photophobia, pain, discharge, redness, itching and visual disturbance. Respiratory: Negative. Negative for apnea, cough, choking, chest tightness, shortness of breath, wheezing and stridor. Cardiovascular: Negative. Negative for chest pain, palpitations and leg swelling. Gastrointestinal: Negative. Negative for abdominal distention, abdominal pain, anal bleeding, bloodin stool, constipation, diarrhea, nausea and rectal pain. Endocrine: Negative. Genitourinary: Negative. Musculoskeletal: Positive for arthralgias, back pain and joint swelling. Negative for gait problem,myalgias, neck pain and neck stiffness. Skin: Negative. Negative for color change, pallor, rash and wound. Allergic/Immunologic: Negative. Neurological: Negative for dizziness, tremors, seizures, syncope, facial asymmetry, speech difficulty, weakness, light-headedness, numbness and headaches. Objective: BP 99/66 Pulse 67 Ht 5' 2 Wt 79.8 kg (176 lb) SpO2 95% BMI 32.19 kg/m Physical Exam Constitutional: She is oriented to person, place, and time. She appears well- developed and well-nourished. No distress. HENT: Head: Normocephalic and atraumatic. Right Ear: Hearing, tympanic membrane, external ear and ear canal normal. No drainage. No decreasedhearing is noted. Left Ear: Hearing, tympanic membrane, external ear and ear canal normal. No drainage. No decreased hearing is noted. Nose: Septal deviation present. No mucosal edema, rhinorrhea, nose lacerations, sinus tenderness, nasal deformity or nasal septal hematoma. No epistaxis. No foreign bodies. Right sinus exhibits no maxillary sinus tenderness and no frontal sinus tenderness. Left sinus exhibits no maxillary sinus tenderness and no frontal sinus tenderness. Mouth/Throat: Uvula is midline, oropharynx is clear and moist and mucous membranes are normal. She does not have dentures. No oral lesions. No trismus in the jaw. Normal dentition. No dental abscesses, uvula swelling, lacerations or dental caries. No oropharyngeal exudate, posterior oropharyngeal edema, posterior oropharyngeal erythema or tonsillar abscesses. Hearing intact with good healthcare receptionist of whisper at 2 feet distance. C-512, C-1024 tuning fork tests: Hernandez midline, Rinne Air>bone bilateral. Anterior cartilaginous portion of the nasal septum perforation approximately 8- 10 mm in size. No granulations, ulceration or bleeding. Eyes: Pupils are equal, round, and reactive to light. Conjunctivae and EOM are normal. Right eye exhibits no discharge. Left eye exhibits no discharge. No scleral icterus. Neck: Normal range of motion. Neck supple. No JVD present. No tracheal deviation present. No thyromegaly present. Cardiovascular: Normal rate, regular rhythm and normal heart sounds. Pulmonary/Chest: Effort normal and breath sounds normal. No stridor. No respiratory distress. She has no wheezes. Lymphadenopathy: She has no cervical adenopathy. Right cervical: No superficial cervical, no deep cervical and no posterior cervical adenopathy present. Left cervical: No superficial cervical, no deep cervical and no posterior cervical adenopathy present. Neurological: She is alert and oriented to person, place, and time. No cranial nerve deficit. Skin: Skin is warm and dry. She is not diaphoretic. Psychiatric: Her behavior is normal. Endoscopy was used to evaluate the airway on patient with suspected Fernando's disease. Flexible Fiberoptic Laryngoscopy Procedure Note, CPT code 34330. Pre-operative Diagnosis: Fernando's disease. Post-operative Diagnosis: Nasal septum perforation Anesthesia: topical with afrin and lidocaine 4% Endoscopy Type: Flexible Fiberoptic Laryngoscopy Procedure Details: The patient was placed in the sitting position. After topical anesthesia and decongestion, the scope was passed. The nasal cavities, nasopharynx, oropharynx, hypopharynx, and larynx were all examined. Vocal cords were examined during respiration and phonation. The following findings were noted: Findings: The nasal cavity has normal, pink but dry mucosa. Anterior cartilaginous portion of the nasal septum perforation approximately 8-10 mm in size. No granulations, ulceration or bleeding. the nasopharynx is normal, without adenoid hypertrophy or masses. The oropharynx is normal. The hypopharynx is normal. The epiglottis and tongue base are normal. The vocal cords are mobile bilaterally. The pyriform sinuses are normal bilaterally. Condition: Stable. Patient tolerated procedure well. Complications: None Assessment/Plan: Focused examination, including office-based endoscopy had confirmed spontaneous anterior cartilaginous portion of the nasal septum perforation approximately 8-10 mm in size. No granulations, ulceration or bleeding. No glottic or subglottic lesions. This is associated with positive VINI test and highly suspicious for Fernando's disease presentation. Main disturbance symptom of whistling upon breathing is getting better along with enlargement of the size of the perforation. 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 Patient might bene fit from silicone nasal septum buttons if continued to be symptomatic. She has rheumatology consultation pending. We had offered continue routine reevaluation's every 6-month or immediately as neededupon resumption of bleeding or sinus infections. 1. Nasal septum perforation 2. Elevated antinuclear antibody (VINI) level 3. Sensorineural hearing loss, bilateral No orders of the defined types were placed in this encounter. documented in this encounter* Andree Huffman MD - 08/13/2019 3:17 PM EST [facility]. [facility] [address]) [facility] [address] [facility] [address] [facility] [id number] Name: Suad Haddad Date:08/13/19 Allergies: Norvasc [amlodipine] Medications: Current Outpatient Medications: cloNIDine HCl (CATAPRES) 0.3 MG tablet, Take 0.3 mg by mouth 3 (three) times a day., Disp: , Rfl: 11 diclofenac sodium (VOLTAREN) 75 MG EC tablet, Take 75 mg by mouth 2 (two) times a day with meals., Disp: , Rfl: 2 fenofibrate (TRICOR) 54 MG tablet, Take 54 mg by mouth daily., Disp: , Rfl: 11 lisinopril (PRINIVIL,ZESTRIL) 40 MG tablet, Take 40 mg by mouth 2 (two) times a day., Disp: , Rfl: 11 metoprolol tartrate (LOPRESSOR) 100 MG tablet, Take 100 mg by mouth 2 (two) times a day., Disp: , Rfl: 0 spironolactone (ALDACTONE) 50 MG tablet, , Disp: , Rfl: TAB-A-ALVAREZ per tablet, Take 1 tablet by mouth daily ., Disp: , Rfl: 5 VITAMIN D2 50,000 unit capsule, Take 1 capsule by mouth once a week ., Disp: , Rfl: 5 cetirizine (ZYRTEC) 10 MG tablet, Take 1 (one) tablet (10 mg total) by mouth daily., Disp: 30 tablet, Rfl: 5 folic acid-vit B6-vit B12 (FOLBIC) 2.5-25-2 mg tablet, Take 1 tablet by mouth daily ., Disp: , Rfl: KLOR-CON M20 20 mEq tablet, Take 20 mEq by mouth daily., Disp: , Rfl: 11 metoprolol tartrate (LOPRESSOR) 25 MG tablet, Take 25 mg by mouth 2 (two) times a day., Disp: , Rfl: 11 metoprolol tartrate (LOPRESSOR) 50 MG tablet, Take 50 mg by mouth 2 (two) times a day., Disp: , Rfl: 3 mupirocin (BACTROBAN) 2 % ointment, Apply topically 3 (three) times a day . (Patient not taking: Reported on 08/13/2019 .), Disp: 22 g, Rfl: 0 sodium chloride-aloe vera Gel, Apply topically 2 (two) times a day as needed . (Patient not taking:Reported on 08/13/2019 .), Disp: 14.1 g, Rfl: 11 Occupation:Data Unavailable Chief Complaint: Question of granulomatosis with polyangiitis HPI: Suad Haddad is a 64 y.o. female sent in consultation by Gala Vila CNP. Medical information regarding the patient was accessed on [employer]. The patient states that she has a hole in her nose. By this she means a lacuna in the nasal septum.She states that she has a long history of nosebleeds, cannot recall exactly how long but notes thatshe did have nosebleeds in the . Usually fresh blood would be produced. Earlier this year she was given Nasonex by her primary care practitioner and it was after starting this medication that she noted that she had nasal septum home. She was seen by Dr. Roy who evaluated her and his findings are as follows: spontaneous anterior cartilaginous portion of the nasal septum perforation approximately 8-10 mm in size. No granulations, ulceration or bleeding. No glottic or subglottic lesions. This is associated with positive VINI test and highly suspicious for Fernando's disease presentation. Main disturbance symptom of whistling upon breathing is getting better. . . The nasal cavity has normal, pink but dry mucosa. Anterior cartilaginous portion of the nasal septum perforation approximately 8-10 mm in size. No granulations, ulceration or bleeding. the nasopharynx is normal, without adenoid hypertrophy or masses. The oropharynx is normal. The hypopharynx is normal. The epiglottis and tongue base are normal. The vocal cords are mobile bilaterally. The pyriform sinuses are normal bilaterally. The patient states that she has never had hemoptysis. She has no kidney disease she is aware of. She did have kidney stones at one time but that was years ago. She has no skin diseases. She has not recently had any rashes. She has not had a chest x-ray for several years. She denies joint swelling and Raynaud's phenomenon. The patient recently had an antinuclear antibody test done ([facility]) which wasdetermined to be 1: 160, speckled pattern FAMILY HISTORY: 1 maternal aunt had rheumatoid arthritis. Father age 79; mother age 76. 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 Denies asthma, bronchitis, hemoptysis and sleep apnea Last Chest X-Ray: Date: Cardiovascular System: _Positive for hypertension. Denies OR, CHF but states she has a murmur____ Gastrointestinal System: Denies PUD, hepatitis, nausea, vomiting, diarrhea and constipation. Has pyrosis___ Last G.I. X-Ray: ____ Date: ____ Rectum: _Denies rectal bleeding and hemorrhoids____ Genitourinary System: _Positive for kidney stones and kidney disease___ Menstrual History: L.M.P: Endocrine System: _Denies diabetes and thyroid disease Joints: Back, Muscles and Bones: History positive for fractures of toes and fingers; was seen by Dr. Duffy several years ago and determined to have osteoarthritis of the left knee Neuro: _Cerebral palsy (patient notes her left side is the weak side); denies LOC, seizure and phlebitis; claims neuropathy of both feet, etiology unknown Emotional Factors: Sleep (Hours): Alcohol: _Denies Coffee: Tobacco: Denies Industrial Exposure To: Disability: _Yes/No_ Date Stopped Working: ____ Compensation Case: __Yes\No__ Comments: Physical Exams: Gen.: _The patient is well-developed, well-nourished white female who appears stated age. In NAD. Oriented x3 and affect normal___ Head: _Normocephalic and atraumatic with no alopecia___ Neck: Practically no left lateral rotation. Normal right lateral rotation. Markedly reduced left and right lateral flexion. Flexion and extension are intact. Trachea is midline____ Eyes: _EOMI. Pupils are equally round and miotic. Nonresponsive to light. Sclerae anicteric and noninjected___ Nose: _No discharge, deformity or discoloration___ Heart: _Regular rate and rhythm with no murmur or gallop___ Lungs: _Clear to auscultation and percussion bilaterally___ Shoulders: _The left shoulder has a normal range of motion with no tenderness or synovitis. The right shoulder demonstrates anterior tenderness. No synovitis. Pain on abduction. Negative Neer's and Gonzalez signs. Positive pain produced on resistance of supraspinatus tendon.___ Back:_Increased thoracic kyphosis.____ Elbows: Full range of motion with no synovitis or tenderness____ Wrists: _Full range of motion with no synovitis or tenderness___ Hands: _Right-handed. MCPs and PIPs are nontender and without synovitis. Able to make a tight fist bilaterally___ Hips: _Good range of motion bilaterally. Negative Sofia. Negative trochanteric tenderness___ Knees: _Both knees have good range of motion without crepitus or pain. Mildly increased laxity on valgus/varus stressing of the left knee. Positive patellar prehension bilaterally. Medial and lateraljoint tenderness of the left knee.___ Ankles:_Full range of motion bilaterally. No synovitis or tenderness___ Feet: _Negative lateral squeeze test. No MTP tenderness. No toe joint swelling. Symmetric gaps between great toes and second toes bilaterally___ Skin: _Warm and dry no rashes present.___ Strength: Upper extremities:_5/5 strength of deltoids, biceps, triceps and handgrips___ Lower extremities: _5/5 strength of the right hip flexor, quadriceps, hamstring, anterior tibialis and EHL. On the left, the hip flexors 4.5/5, the quadriceps and hamstrings are 4.5/5 and the EHL is 4.5/5 as is the anterior tibialis___ Reflexes: _Biceps DTRs 1+ bilaterally. Infrapatellar tendon reflexes 2+; Achilles tendon reflexes 1+ bilaterally. Plantar responses flat bilaterally___ Assessment and Plan: 1. A chest x-ray is obtained. My impression is patient has no findings consistent with GPA on this film. We will await the radiologist's formal report. 2. It should be noted that an VINI has no value in confirming or refuting a diagnosis of GPA. Low titer, speckled pattern ANAs have a high probability of being false positive . However with the patient's history of dry eyes and dry mouth, there is some possibility of keratoconjunctivitis sicca being present. We will obtain an KENROY battery to further pursue this. 3. We will obtain appropriate lab testing to probe further the hypothesis of GPA being present. We will notify the patient and her healthcare providers when the results are available. Discussed all the above with the patient. documented in this encounter* Andree Huffman MD - 08/18/2019 5:40 PM EST 08/18/2019. 1740 hrs. Patient's labs have all returned and are normal or negative. A letter has been sent to her and her primary care physician regarding this. It is my opinion that the patient does not have GPA. DSS Please note: Portions of this chart may have been created with [employer] voice recognition software. Occasional wrong-word or sound-like substitutions may have occurred due to inherent limitations of the voice recognition software. Please read the chart carefully and recognize, using context, where the substitutions have occurred. documented in this encounter Additional Source Comments INFORMATION SOURCE (unrecogn ized section and content) DATE CREATED AUTHOR AUTHOR'S ORGANIZ ATION 02/20/2018 [facility] DATE CREATED AUTHOR AUTHOR'S ORGANIZ ATION 08/13/2019 [facility] DATE CREATED AUTHOR AUTHOR'S ORGANIZ ATION 08/17/2019 [facility] DATE CREATED AUTHOR AUTHOR'S ORGANIZ ATION 02/28/2022 [facility] Reason for Visit (unrecogniz ed section and content) Reason Comments Follow-up 3 week nasal perf. f /u Reason Comments Follow-up positive VINI of 160 & for further work up & management of potential Fernando's disease Status Reason Specialty Diagnoses / Procedures Re ferred By Contact Referred To Contact Closed Rheumatology Diagnoses Elevated antinuclear antibody (VINI) level Perforated nasal septum Hanna Vila CNP [address] [place] [facility] [address] [place] [address] Andree Huffman MD [address] [phone] <item> Privacy Markings (unrecogniz ed section and content) Section Author: Krystina Menard PROHIBITION ON REDISCLOSURE OF CONFIDENTIAL INFORMATION This notice accompanies a disclosure of information concerning a client made to you with the consent of such client. FOR RECORDS PERTAINING TO PATIENTS WHO ARE OR HAVE BEEN ENROLLED IN A CHEMICAL DEPENDENCY/SUBSTANCEABUSE PROGRAM, SOME INFORMATION MAY BE OMITTED. This clinical summary was aggregated from multiple sources. Caution should be exercised in using it in the provision of clinical care. This summary normalizes information from multiple sources, and as a consequence, information in this document may materially change the coding, format and clinical context of patient data. In addition, data may be omitted in some cases. CLINICAL DECISIONS SHOULD BE BASED ON THE PRIMARY CLINICAL RECORDS. [facility] provides no warranty or guarantee of the accuracy or completeness of information in this document.
--- NOTE | 2023-09-16 14:08 | ST.MBS ---
Modified Barium Swallow Patient Information Study Date: 09/16/23 Study Time: 13:00 Direct Billable Minutes: 124 Total Minutes procedure & reportin Diagnosis: Dysphagia R13.10, Cerebral Palsy G80.9 Referring Physician: Awa Hargrove Reason for Referral: Objectively assess swallow function, assess risk for aspiration, and determine recommendations for least restrictive diet textures and compensatory strategies to improve safety of swallow. Medical History: PMH: CP, dysphagia, NSTEMI, HTN, CKD. The patient reports lifelong swallowing difficulty which worsened from an unspecified illness this past fall. She reports ear infection, fever, and cold symptoms lasting months beginning the end of summer and into fall of 2021. During this time she reported not being able to swallow for 3 weeks. No prior swallow evaluation to today. She reports nuts, pills, and rice are most difficult to swallow. They feel caught in her throat and are hard to get up or down once stuck. She feels fearful of choking in her home at times. She is edentulous and reports being unable to obtain dentures given that her mouth does not have enough space for top and bottom teeth. She wants dental implants but has been told this is not possible due to an issue with her jaw. She reports even if she had jaw surgery she could still not get teeth. For larger meds, she splits them into smaller pieces or dissolves them. For tough to chew foods, she cuts them up or puts them in chopper. Current Diet Ordered: Soft solids / Thin liquids Dentition: Edentulous Mental Status: WNL Respiratory Status: Oxygenating on Room Air Penetration-Aspiration Scale Penetration-Aspiration Scale: OBJECTIVE ASSESSMENT OF SWALLOW FUNCTION (QUANTITATIVE ? PER TRIAL): PENETRATION / ASPIRATION SCALE (ALDANA): 1 = does not enter airway 2 = enters airway/above vocal folds/ejected 3 = enters airway/above vocal folds/not ejected 4 = enters airway/contacts vocal folds/ejected 5 = enters airway/contacts vocal folds/not ejected 6 = enters airway/below vocal folds/ejected 7 = enters airway/below vocal folds/not ejected despite effort 8 = enters airway/below vocal folds/no effort VIDEOFLOROSCOPIC SCALE SCORE (ALDANA): Grade I = aspiration of material that has penetrated into the laryngeal vestibule, intact cough reflex Grade II = aspiration < 10 % of the bolus, intact cough reflex Grade III = aspiration of < 10 % of the bolus, reduced cough reflex or aspiration of > 10 % of the bolus, intact cough reflex Grade IV = aspiration of > 10 % of the bolus, reduced cough reflex Penetration-Aspiration Scale Score Thin Liquid via teaspoon: Result: 1= does not enter airway Thin Liquid via teaspoon Trial 2: Result: 1= does not enter airway Thin Liquid via small single sip: cup: Result: 1= does not enter airway Thin Liquid via sequential sips: cup: Result: 1= does not enter airway Comment: Esophageal screen - overall good esophageal clearance with minimal retention in the lower esophagus. [place] Thick Liquid via small single sip: cup: Result: 1= does not enter airway Comment: Esophageal screen - Complete clearance. Pudding via teaspoon: Result: 1= does not enter airway Comment: Min retention in upper esophagus, which has cleared by the start of the next trial. 1/2 Cookie: Result: 1= does not enter airway Comment: Esophageal screen - Complete clearance. Thin Liquid via single sip: straw: Result: 1= does not enter airway Comment: Minimal retention of barium in upper esophagus Barium tablet with two thin water washes: Result: 1= does not enter airway Comment: Esophageal screen - Complete clearance. Oral Phase Labial Seal: No Labial Escape Tongue Control During Bolus Hold: Posterior escape of less than half of bolus Bolus Preparation/Mastication: Slow prolonged chewing/mashing with complete recollection Bolus Transport/Lingual Motion: Repetitive/disorganized tongue motion (pudding - min lingual pumping for A-P transport) Oral Residue: Residue collection on oral structures Pharyngeal Phase Initiation of Pharyngeal Swallow: Bolus head in pyriforms (thin by straw) Soft Palate Elevation: No bolus between soft palate and pharyngeal wall Laryngeal Elevation: Comp. Superior move thyroid cart w/comp. apprx arytenoid cart-epig pet Anterior Hyoid Excursion: Complete anterior movement Epiglottic Movement: Complete inversion Laryngeal Vestibule Closure at Height of Swallow: Complete; no air/contrast in laryngeal vestibule Pharyngeal Stripping Wave: Present - complete Pharyngoesophageal Segment Opening: Complete distension and complete duration; no obstruction of flow Tongue Base Retraction: Trace column of contrast between tongue base & post. pharyngeal wall Pharyngeal Residue: Trace residue within or on pharyngeal structures Esophageal Phase Esophageal Clearance: Esophageal retention Diagnosis/Impression Diagnosis: Mild oral dysphagia R13.10 Impression: The oral phase is primarily marked by... -Prolonged, but adequate mastication of cookie. Due to patient reporting difficulty with regular lettuce, nuts, seeds, and popcorn, STEEL CRANE OPERATOR suspects inadequate mastication with certain textures due to edentulous status. -Mildly decreased bolus control of thin liquids via straw spilling posteriorly to the pyriforms prior to swallow onset. -Lingual pumping and piecemeal deglutition of pudding. -Mild oral residues of pudding and cookie, which fully cleared with independent initiation of a second swallow. The pharyngeal phase is grossly WNL. A small amount of upper esophageal retention of thin liquid barium was seen at the end of thin liquids via straw. STEEL CRANE OPERATOR reviewed the retention with radiologist, Dr. Irizarry, who verbalized the retention is very minimal and no further work up is warranted at this time. Recommendations Diet: Regular Textures (Easy to chew Textures IDDSI Level 7) and Thin Liquids Comment: Avoid nuts/seeds, tough meat, sticky/chewy food. Small meds ok whole in water. Dissolve/split large medications as needed. Compensatory Strategies: Small Bites, Small Sips, Slow Rate, Alternate bites/solids and sips/liquids, Sitting upright and Remain sitting upright for 30 minutes after PO intake Recommend Repeat Modified Barium Swallow: TBD Need for Skilled Speech Therapy Services: Yes Comment: STEEL CRANE OPERATOR recommended OP evaluation and encouraged the patient to bring some [id number] textures to the bedside evaluation to trial with an STEEL CRANE OPERATOR. Will recommend education re: recommended diet textures and aspiration precautions. Will also recommend implementation of oral motor exercises to include lingual resistance and lingual coordination exercises due to mild oral deficits observed during MBSS. Education Completed: 1. Described result of evaluation., 2. Pt understands evaluation & agrees with goals and treatment plan. and 7. Pt requires further education on strategies & risks. Status Active ST Patient: Active Contact Information [facility] Speech Therapy:: Bernie Young M.A. [facility]-STEEL CRANE OPERATOR Speech-Language Pathologist [facility] [address] [place] [address] [email or web address] [phone]
== END | disposition home or self-care (01) ==
LOC: RAD 13:25
PROVIDERS: PCP Family Medicine; Referring Provider Family Medicine; Visit Provider Family Medicine
DX: R13.10 Dysphagia, unspecified (principal); G80.9 Cerebral palsy, unspecified
CPT/HCPCS: 74230; 92611

== ENCOUNTER 2023-10-25 12:00 | Outpatient (RCR) | payer MEDICARE, SELFPAY ==
--- NOTE | 2023-10-01 15:30 | ST ---
[facility] Speech Pathology [address] [place] [address] Modified Barium Swallow Study MR#: [id number] Acct: [id number] Name: SUAD HADDAD Rep #: [id number] : 1955 68 years old From: Bernie Young M.A., [facility]-BEEF SPLITTER Modified Barium Swallow Patient Information Study Date: 09/16/23 Study Time: 13:00 Direct Billable Minutes: 124 Total Minutes procedure & reportin Diagnosis: Dysphagia R13.10, Cerebral Palsy G80.9 Referring Physician: Awa Hargrove Reason for Referral: Objectively assess swallow function, assess risk for aspiration, and determine recommendations for least restrictive diet textures and compensatory strategies to improve safety of swallow. Medical History: PMH: CP, dysphagia, NSTEMI, HTN, CKD. The patient reports lifelong swallowing difficulty which worsened from an unspecified illness this past fall. She reports ear infection, fever, and cold symptoms lasting months beginning the end of summer and into fall of 2021. During this time she reported not being able to swallow for 3 weeks. No prior swallow evaluation to today. She reports nuts, pills, and rice are most difficult to swallow. They feel caught in her throat and are hard to get up or down once stuck. She feels fearful of choking in her home at times. She is edentulous and reports being unable to obtain dentures given that her mouth does not have enough space for top and bottom teeth. She wants dental implants but has been told this is not possible due to an issue with her jaw. She reports even if she had jaw surgery she could still not get teeth. For larger meds, she splits them into smaller pieces or dissolves them. For tough to chew foods, she cuts them up or puts them in chopper. Current Diet Ordered: Soft solids / Thin liquids Dentition: Edentulous Mental Status: WNL Respiratory Status: Oxygenating on Room Air Penetration-Aspiration Scale Penetration-Aspiration Scale: OBJECTIVE ASSESSMENT OF SWALLOW FUNCTION (QUANTITATIVE ? PER TRIAL): PENETRATION / ASPIRATION SCALE (ALDANA): 1 = does not enter airway 2 = enters airway/above vocal folds/ejected 3 = enters airway/above vocal folds/not ejected 4 = enters airway/contacts vocal folds/ejected 5 = enters airway/contacts vocal folds/not ejected 6 = enters airway/below vocal folds/ejected 7 = enters airway/below vocal folds/not ejected despite effort 8 = enters airway/below vocal folds/no effort VIDEOFLOROSCOPIC SCALE SCORE (ALDANA): Grade I = aspiration of material that has penetrated into the laryngeal vestibule, intact cough reflex Grade II = aspiration < 10 % of the bolus, intact cough reflex Grade III = aspiration of < 10 % of the bolus, reduced cough reflex or aspiration of > 10 % of the bolus, intact cough reflex Grade IV = aspiration of > 10 % of the bolus, reduced cough reflex Penetration-Aspiration Scale Score Thin Liquid via teaspoon: Result: 1= does not enter airway Thin Liquid via teaspoon Trial 2: Result: 1= does not enter airway Thin Liquid via small single sip: cup: Result: 1= does not enter airway Thin Liquid via sequential sips: cup: Result: 1= does not enter airway Comment: Esophageal screen - overall good esophageal clearance with minimal retention in the lower esophagus. [place] Thick Liquid via small single sip: cup: Result: 1= does not enter airway Comment: Esophageal screen - Complete clearance. Pudding via teaspoon: Result: 1= does not enter airway Comment: Min retention in upper esophagus, which has cleared by the start of the next trial. 1/2 Cookie: Result: 1= does not enter airway Comment: Esophageal screen - Complete clearance. Thin Liquid via single sip: straw: Result: 1= does not enter airway Comment: Minimal retention of barium in upper esophagus Barium tablet with two thin water washes: Result: 1= does not enter airway Comment: Esophageal screen - Complete clearance. Oral Phase Labial Seal: No Labial Escape Tongue Control During Bolus Hold: Posterior escape of less than half of bolus Bolus Preparation/Mastication: Slow prolonged chewing/mashing with complete recollection Bolus Transport/Lingual Motion: Repetitive/disorganized tongue motion (pudding - min lingual pumping for A-P transport) Oral Residue: Residue collection on oral structures Pharyngeal Phase Initiation of Pharyngeal Swallow: Bolus head in pyriforms (thin by straw) Soft Palate Elevation: No bolus between soft palate and pharyngeal wall Laryngeal Elevation: Comp. Superior move thyroid cart w/comp. apprx arytenoid cart-epig pet Anterior Hyoid Excursion: Complete anterior movement Epiglottic Movement: Complete inversion Laryngeal Vestibule Closure at Height of Swallow: Complete; no air/contrast in laryngeal vestibule Pharyngeal Stripping Wave: Present - complete Pharyngoesophageal Segment Opening: Complete distension and complete duration; no obstruction of flow Tongue Base Retraction: Trace column of contrast between tongue base & post. pharyngeal wall Pharyngeal Residue: Trace residue within or on pharyngeal structures Esophageal Phase Esophageal Clearance: Esophageal retention Diagnosis/Impression Diagnosis: Mild oral dysphagia R13.10 Impression: The oral phase is primarily marked by... -Prolonged, but adequate mastication of cookie. Due to patient reporting difficulty with regular lettuce, nuts, seeds, and popcorn, BEEF SPLITTER suspects inadequate mastication with certain textures due to edentulous status. -Mildly decreased bolus control of thin liquids via straw spilling posteriorly to the pyriforms prior to swallow onset. -Lingual pumping and piecemeal deglutition of pudding. -Mild oral residues of pudding and cookie, which fully cleared with independent initiation of a second swallow. The pharyngeal phase is grossly WNL. A small amount of upper esophageal retention of thin liquid barium was seen at the end of thin liquids via straw. BEEF SPLITTER reviewed the retention with radiologist, Dr. Irizarry, who verbalized the retention is very minimal and no further work up is warranted at this time. Recommendations Diet: Regular Textures (Easy to chew Textures IDDSI Level 7) and Thin Liquids Comment: Avoid nuts/seeds, tough meat, sticky/chewy food. Small meds ok whole in water. Dissolve/split large medications as needed. Compensatory Strategies: Small Bites, Small Sips, Slow Rate, Alternate bites/solids and sips/liquids, Sitting upright and Remain sitting upright for 30 minutes after PO intake Recommend Repeat Modified Barium Swallow: TBD Need for Skilled Speech Therapy Services: Yes Comment: BEEF SPLITTER recommended OP evaluation and encouraged the patient to bring some [id number] textures to the bedside evaluation to trial with an BEEF SPLITTER. Will recommend education re: recommended diet textures and aspiration precautions. Will also recommend implementation of oral motor exercises to include lingual resistance and lingual coordination exercises due to mild oral deficits observed during MBSS. Education Completed: 1. Described result of evaluation., 2. Pt understands evaluation & agrees with goals and treatment plan. and 7. Pt requires further education on strategies & risks. Status Active ST Patient: Active Contact Information [facility] Speech Therapy:: Bernie Young M.A. CCC-BEEF SPLITTER Speech-Language Pathologist [facility] [address] [place] [address] [email or web address] [phone]
--- NOTE | 2023-10-04 09:25 | HP.SP.EV_ITS ---
Visit History Visit Info Date of Eval: 10/01/23 Visit: 1 Fireperson: SHANNAN Zarate Attending Doctor: Reason for Referral: SWALLOWING TECHNIQUES. RX HERE Previous speech therapy: Yes Results: Previous MBSS on 09/15/23. See results below. Previous bedside swallow evaluation when admitted to the hospital in April 2022. She was not picked up on speech therapy caseload. Other Relevant Medical History/Diagnoses/Surgery: SUAD HADDAD is a 68 year old female who presents to [facility] Therapy d/t concerns with oral phase dysphagia. Per MBSS report She is edentulous (for about 45 years) and reports being unable to obtain dentures given that her mouth does not have enough space for top and bottom teeth. Suad reports about 10 or so years ago she inquired about dental implants but has been told this is not possible due to an issue with needing to reset her jaw. She reports even if she had jaw surgery she could still not get teeth. For larger meds, she splits them into smaller pieces or dissolves them. For tough to chew foods, she cuts them up or puts them in chopper. Suad reports that her symptoms are intermittent and do not occur at every meal. The most frequent symptoms she experiences is odynophagia or globus sensation. Smoking Status: Never smoker Diagnosis Diagnosis: Mild oral dysphagia R13.10 Pain Is pain an issue with your current prescribed condition?: No Personal Preferred language: Kyrgyz Patient Allergies Allergies Allergies: Allergies No Known Allergies Allergy (Verified 07/25/23 17:02) Objective Dysphagia Administered by Administered by: Self Thin Liquids Administred via: Cup Oral Transit: WNL Bolus clearance: fully cleared Gagging: No Cough: none observed/unable to assess Pharyngeal phase: immediate laryngeal elevation Comments: D/t Pt being edentulous, Pt appearing to take a large drink from a cup with how she positions the cup. Even so, there were no overt sign/symptoms of aspiration/penetration. Soft & Bite sized (Mechanical) Administered via: Spoon Oral Preparation: minimal chew thrust gravity assisted Oral Transit: WNL Bolus clearance: fully cleared Gagging: No Cough: none observed/unable to assess Pharyngeal phase: immediate laryngeal elevation Patient Report: Pt reporting that it will be difficult to implement recommended compensatory strategies of alternating bites/drinks, small bites, limiting distractions, and not talking while eating because she has always eaten like she does at baseline. ST expressed that since the Pt has reached out for help this tells ST that she must feel like her swallowing has areas where changes could be made. ST provided education on she hopes Pt would consider implementing some of the recommended strategies to see if this would help improve her swallowing and reduce the choking episodes. Pt showing comprehension of education provided this date. Comments: Pt trialing rice for bedside swallow evaluation because she reports this is a food she intermittently has difficulty with at home. She states that it will typically feel like it stacks up in her throat and then she'll choke on it. Observed Pt on her first 4 independent bites with her consuming large bite sizes and administering another bite prior to swallowing all of the previous one. She benefited from ST cueing her 3x to take intermittent drinks as liquid washes to help prevent the rice from stacking up. At the end of her trials (about 10 bites) Pt reporting her throat felt clear and that nothing was stuck. Regular Administered via: Cup Oral Preparation: minimal chew thrust gravity assisted Oral Transit: Delay > 5 seconds Bolus clearance: fully cleared Gagging: No Cough: none observed/unable to assess Pharyngeal phase: immediate laryngeal elevation Comments: Pt reporting she has a hard time with her medications at home. When asked how she consumes them, Pt stating that she takes 6-7 small ones at the s dwight time and 1-2 large capsules at the same time with only tea. When asked if she has considered trying them in a puree like applesauce, pudding, or yogurt, Pt stating she doesn't think this would work because she doesn't have those foods at home. She is also worried about them dissolving in the puree. During evaluation this date, Pt consuming two large capsules (cinnamon capsules) at the same time with her iced tea. Pt with one swallow and then a forceful backwards head jolt followed by another swallow. Pt reporting intermittent difficulties with pills like this because at times they feel like they go down sideways. ST recommending taking only 1 of the large capsules at a time to help prevent difficulties at home. Pt stating she has worked hard to build up the tolerance to take multiple and that she has so many prescriptions, vitamins and minerals that she takes every day and doesn't want to waste time taking only one at a time. ST reminded her about earlier conversation and how if she wants to mitigate problems at home, that it could be helpful to implement suggested compensatory strategies. Pt showing understanding. Swallowing Impairment Contributing Factors to Swallowing Impairment: Mastication Inefficiency Impact Impact on Safety & Functioning: No Limitations Recommendations Modified Barium Swallow/Cookie Swallow Recommended: No Swallowing Treatment: Yes Diet Texture Recommendations Solids: Soft & Bite sized (Level 6, Chopped) Liquids: Thin (Level 0) Other: Taking only 1 larger pill at a time followed by a liquid wash, vs. taking two at a time like she is used to. Safety Saftey Precautions/Swallowing Recommendations (Check all that Apply): Reduce Dis tractions, Small Sips & Bites when Eating and Alternate Liquids & Solids Results Swallowing Within Normal Limits: No Swallowing Diagnosis: Oral Phase Dysphagia (R13.11) Severity: Mild Modified Barium Results Hx If Applicable Enter into a NOTE MBS Results (from prior exam): 10/01/23 15:30 Speech Therapy by Lata Meneses [facility] Speech Pathology [address] [place] [address] Modified Barium Swallow Study MR#: [id number] Acct: [id number] Name: SUAD HADDAD Rep #: [id number] : 1955 68 years old From: Bernie Young M.A., [facility]-APPLICATION SYSTEMS ARCHITECT Modified Barium Swallow Patient Information Study Date: 09/16/23 Study Time: 13:00 Direct Billable Minutes: 124 Total Minutes procedure & reportin Diagnosis: Dysphagia R13.10, Cerebral Palsy G80.9 Referring Physician: Awa Hargrove Reason for Referral: Objectively assess swallow function, assess risk for aspiration, and determine recommendations for least restrictive diet textures and compensatory strategies to improve safety of swallow. Medical History: PMH: CP, dysphagia, NSTEMI, HTN, CKD. The patient reports lifelong swallowing difficulty which worsened from an unspecified illness this past fall. She reports ear infection, fever, and cold symptoms lasting months beginning the end of summer and into fall. During this time she reported not being able to swallow for 3 weeks. No prior swallow evaluation to today. She reports nuts, pills, and rice are most difficult to swallow. They feel caught in her throat and are hard to get up or down once stuck. She feels fearful of choking in her home at times. She is edentulous and reports being unable to obtain dentures given that her mouth does not have enough space for top and bottom teeth. She wants dental implants but has been told this is not possible due to an issue with her jaw. She reports even if she had jaw surgery she could still not get teeth. For larger meds, she splits them into smaller pieces or dissolves them. For tough to chew foods, she cuts them up or puts them in chopper. Current Diet Ordered: Soft solids / Thin liquids Dentition: Edentulous Mental Status: WNL Respiratory Status: Oxygenating on Room Air Penetration-Aspiration Scale Penetration-Aspiration Scale: OBJECTIVE ASSESSMENT OF SWALLOW FUNCTION (QUANTITATIVE ? PER TRIAL): PENETRATION / ASPIRATION SCALE (ALDANA): 1 = does not enter airway 2 = enters airway/above vocal folds/ejected 3 = enters airway/above vocal folds/not ejected 4 = enters airway/contacts vocal folds/ejected 5 = enters airway/contacts vocal folds/not ejected 6 = enters airway/below vocal folds/ejected 7 = enters airway/below vocal folds/not ejected despite effort 8 = enters airway/below vocal folds/no effort VIDEOFLOROSCOPIC SCALE SCORE (ALDANA): Grade I = aspiration of material that has penetrated into the laryngeal vestibule, intact cough reflex Grade II = aspiration < 10 % of the bolus, intact cough reflex Grade III = aspiration of < 10 % of the bolus, reduced cough reflex or aspiration of > 10 % of the bolus, intact cough reflex Grade IV = aspiration of > 10 % of the bolus, reduced cough reflex Penetration-Aspiration Scale Score Thin Liquid via teaspoon: Result: 1= does not enter airway Thin Liquid via teaspoon Trial 2: Result: 1= does not enter airway Thin Liquid via small single sip: cup: Result: 1= does not enter airway Thin Liquid via sequential sips: cup: Result: 1= does not enter airway Comment: Esophageal screen - overall good esophageal clearance with minimal retention in the lower esophagus. [place] Thick Liquid via small single sip: cup: Result: 1= does not enter airway Comment: Esophageal screen - Complete clearance. Pudding via teaspoon: Result: 1= does not enter airway Comment: Min retention in upper esophagus, which has cleared by the start of the next trial. 1/2 Cookie: Result: 1= does not enter airway Comment: Esophageal screen - Complete clearance. Thin Liquid via single sip: straw: Result: 1= does not enter airway Comment: Minimal retention of barium in upper esophagus Barium tablet with two thin water washes: Result: 1= does not enter airway Comment: Esophageal screen - Complete clearance. Oral Phase Labial Seal: No Labial Escape Tongue Control During Bolus Hold: Posterior escape of less than half of bolus Bolus Preparation/Mastication: Slow prolonged chewing/mashing with complete recollection Bolus Transport/Lingual Motion: Repetitive/disorganized tongue motion (pudding - min lingual pumping for A-P transport) Oral Residue: Residue collection on oral structures Pharyngeal Phase Initiation of Pharyngeal Swallow: Bolus head in pyriforms (thin by straw) Soft Palate Elevation: No bolus between soft palate and pharyngeal wall Laryngeal Elevation: Comp. Superior move thyroid cart w/comp. apprx arytenoid cart-epig pet Anterior Hyoid Excursion: Complete anterior movement Epiglottic Movement: Complete inversion Laryngeal Vestibule Closure at Height of Swallow: Complete; no air/contrast in laryngeal vestibule Pharyngeal Stripping Wave: Present - complete Pharyngoesophageal Segment Opening: Complete distension and complete duration; no obstruction of flow Tongue Base Retraction: Trace column of contrast between tongue base & post. pharyngeal wall Pharyngeal Residue: Trace residue within or on pharyngeal structures Esophageal Phase Esophageal Clearance: Esophageal retention Diagnosis/Impression Diagnosis: Mild oral dysphagia R13.10 Impression: The oral phase is primarily marked by... -Prolonged, but adequate mastication of cookie. Due to patient reporting dif ficulty with regular lettuce, nuts, seeds, and popcorn, APPLICATION SYSTEMS ARCHITECT suspects inadequate mastication with certain textures due to edentulous status. -Mildly decreased bolus control of thin liquids via straw spilling posteriorly to the pyriforms prior to swallow onset. -Lingual pumping and piecemeal deglutition of pudding. -Mild oral residues of pudding and cookie, which fully cleared with independent initiation of a second swallow. The pharyngeal phase is grossly WNL. A small amount of upper esophageal retention of thin liquid barium was seen at the end of thin liquids via straw. APPLICATION SYSTEMS ARCHITECT reviewed the retention with radiologist, Dr. Irizarry, who verbalized the retention is very minimal and no further work up is warranted at this time. Recommendations Diet: Regular Textures (Easy to chew Textures IDDSI Level 7) and Thin Liquids Comment: Avoid nuts/seeds, tough meat, sticky/chewy food. Small meds ok whole in water. Dissolve/split large medications as needed. Compensatory Strategies: Small Bites, Small Sips, Slow Rate, Alternate bites/solids and sips/liquids, Sitting upright and Remain sitting upright for 30 minutes after PO intake Recommend Repeat Modified Barium Swallow: TBD Need for Skilled Speech Therapy Services: Yes Comment: APPLICATION SYSTEMS ARCHITECT recommended OP evaluation and encouraged the patient to bring some [id number] textures to the bedside evaluation to trial with an APPLICATION SYSTEMS ARCHITECT. Will recommend education re: recommended diet textures and aspiration precautions. Will also recommend implementation of oral motor exercises to include lingual resistance and lingual coordination exercises due to mild oral deficits observed during MBSS. Education Completed: 1. Described result of evaluation., 2. Pt understands evaluation & agrees with goals and treatment plan. and 7. Pt requires further education on strategies & risks. Status Active ST Patient: Active Contact Information [facility] Speech Therapy:: Bernie Young M.A. [facility]-APPLICATION SYSTEMS ARCHITECT Speech-Language Pathologist [address] [address] [email or web address] [phone] Electronically signed by Lata Meneses M.S., [facility]-APPLICATION SYSTEMS ARCHITECT on 10/01/23 15:32 Initialized on 10/01/23 15:30 - END OF NOTE Reference: Neuro-QoL instrument Radiation Oncology Patient Plan Plan Plan: Will rx Suad for skilled outpatient tx to address deficits in mild oral dysphagia. Pt would benefit from training and education re: adhering to safe swallowing compensatory strategies, taking larger medication capsules 1 at a time, and adhering to recommended diet textures. Without skilled intervention, Pt is at risk for consuming a restrictive diet putting her at risk for aspiration pneumonia and atrophy of laryngeal musculature. Recommendations Treatment Warranted: Yes Treatment Warranted: Dysphagia Progress Prognosis: Excellent Frequency Frequency: 1x/Week Duration: 4 Weeks Goals that are Established Determination:: Goals will be added/modified as deemed necessary and appropriate. Therapy will be discontinued when results of re-evaluation indicate therapy is no longer needed or lack of progress has been documented. Goal #1-5 Goal #1: Suad will demonstrate understanding of behaviors that impact safety of the swallow by charting frequency of instances of unhealthy intake behaviors (fast rate of intake, large bites/drinks) as they occur throughout the day for at least 4 of the 7 days of the week via bringing chart back to therapy. Goal #2: Suad will demonstrate understanding of compensatory strategy use that improve safety of her swallow by charting frequency of instances of compliance for slow rate of intake, small bites/drinks, alternating bites/sips, adhering to diet recommendations, and taking larger medications 1 at a time as they occur throughout the day for at least 4 of the 7 days of the week via bringing chart back to therapy. Education Patient has Indicated that the Following Identified Educational Needs: None The Patient has indicated that they have no educational or learning abilities that may effect their care.: Yes Patient Instruction Patient Education: Diagnosis, Treatment Plan and Goals Person Taught: Patient Teaching Method: Discussion and Demonstration Response to teaching: Return demonstration and Verbalize understanding
--- NOTE | 2023-10-25 14:03 | HP.SP.DC ---
ST Discharge Summary Discharged: Discharge: KARY HADDAD is a 68 year old female who presented to [facility] Speech Therapy following participation in an MBSS d/t concerns with dysphagia. MBSS interpretation recommended easy to chew foods and thin liquids. Kary participated in three treatment sessions following initial evaluation targeting behavioral changes when approaching how she eats her foods. Discussed following safe swallowing strategies such as taking much smaller bites, slowing her rate of intake, and alternating bites with her drinks. Extensive education was provided during each treatment session re: these safe swallowing strategies with a 7-day checklist provided where Pt could check off her adherence to the strategies at each meal. Asked Pt to return the checklist at each treatment visit. In her two treatment sessions after checklist was given, Pt did not return the checklist and stated that she did not fill it out. During conversations, Pt often stating well I have always done it this way or It's not possible for me to take smaller bites/drinks. Continued education on how if she starts to have difficulties at home that she now has tools and strategies to help mitigate her coughing. Patient appropriate for d/c at this time d/t poor adherence to POC. Pt would benefit from working on the strategies at home independently as extensive education was provided re: how to use at each treatment session. Patient in agreeance re: d/c. Education was provided re: if she were to strictly adhere to the strategies for a month (4 weeks of handouts were given) that ST felt this would become a new habit for her to eat with smaller bites and at a slower rate with intermittent drinks. Please refer Patient back to therapy if she is not noticing any changes in a few months after strictly adhering to the safe swallowing discussed during her sessions. Thank you for allowing me to participate in the care of your patient.
== END 2023-10-25 19:00 | disposition home or self-care (01) ==
LOC: SP 12:00
PROVIDERS: PCP Family Medicine; Referring Provider Family Medicine; Visit Provider Family Medicine
DX: R13.10 Dysphagia, unspecified (principal)
CPT/HCPCS: 92526; 92610

== ENCOUNTER 2023-12-01 10:07 | Inpatient (IN) | payer MEDICARE, SELFPAY ==
[2023-12-01] VITALS (8 sets, daily range): BP systolic 108–144; BP diastolic 72–82; PULSE 48–89; RESP 14–18; TEMP 36.6–36.7; O2SAT 94–98; BMI 30.8
--- NOTE | 2023-12-01 10:23 | EX.ED.DYSGE1 ---
HPI History of Present Illness Chief Complaint: Abd Pain Informant: patient Onset/Context/Timing Onset: Days (7 days) Context: Gradual Onset Timing: Waxes and wanes Narrative Narrative: Patient present secondary to abdominal and back pain for the past week. She states on Saturday, the she had a vasovagal episode while having a bowel movement. She states when she finished she noted the stool was black and tarry. Since that time she is been passing rust colored stool. She does report having at least 2 prior colonoscopies, 1 of which showed some polyps. [facility] Medical History (Updated 12/01/23 @ 14:[address] Raisa Calhoun MD) CKD (chronic kidney disease) High cholesterol Hypertension Home Medications clonidine HCl 0.3 mg tablet 0.3 mg PO Q8H BP 07/25/23 [History Last Taken Unknown] ergocalciferol (vitamin D2) 1,250 mcg (50,000 unit) capsule (Vitamin D2) 50,000 unit PO QWEEK supplement 07/25/23 [History Last Taken Unknown] fenofibrate 54 mg tablet 54 mg PO DAILY CHOLESTEROL 07/25/23 [History Last Taken Unknown] lisinopril 40 mg tablet 40 mg PO BID BP 07/25/23 [History Last Taken Unknown] metoprolol tartrate 100 mg tablet 100 mg PO Q12H BP 07/25/23 [History Last Taken Unknown] multivitamin with folic acid 400 mcg tablet (Tab-A-Marcella) 1 tab PO DAILY supplement 07/25/23 [History Last Taken Unknown] spironolactone 25 mg tablet 25 mg PO DAILY DIURESIS 07/25/23 [History Last Taken Unknown] Allergy/AdvReac Type Severity Reaction Status Date / Time No Known Allergies Allergy Verified 12/01/23 10:09 Social History Smoking Status: Never smoker ROS ROS ED Constitutional Constitutional ED: Denies chills or fever(s) Eyes Eyes: Denies discharge from eye(s) ENT ENT ED: Denies discharge from eye(s), rhinorrhea or sore throat Cardiovascular Cardiovascular: Denies chest pain or palpitations Respiratory/Chest Respiratory/Chest: Denies cough or dyspnea Gastrointestinal Gastrointestinal: Reports abdominal pain and melena; Denies diarrhea, nausea or vomiting Genitourinary Genitourinary ED: Denies dysuria Musculoskeletal Musculoskeletal: Reports back pain; Denies extremity pain Integumentary Denies Abrasions or rash Neurologic Neurologic: Denies headache(s) or weakness Psychiatric Psychiatric: Denies anxiety or depression Allergic/Immunologic Allergic/Immunologic ED: Denies lip swelling or urticaria EXAM Physical Exam Const Vital Signs: 12/01/23 10:07 12/01/23 11:29 12/01/23 12:49 Temperature 98.1 F 98.1 F 98.1 F Temperature Source Temporal Oral Oral Pulse Rate 57 L 53 L 50 L Respiratory Rate 16 18 18 Blood Pressure 118/82 H 125/72 H 108/72 Blood Pressure Mean 94 89 84 Pulse Ox 97 97 97 Oxygen Delivery Method Room Air Room Air Room Air 12/01/23 14:15 Temperature 98 F Temperature Source Pulse Rate 48 L Respiratory Rate 14 Blood Pressure 128/76 H Blood Pressure Mean 93 Pulse Ox 98 Oxygen Delivery Method Positive well nourished and well developed General Appearance ED: well developed HEENT Reports normocephalic and head/scalp atraumatic Eyes PERRL and EOMs intact bilaterally Neck supple Chest Wall inspection of chest normal and palpation of chest normal Resp normal respiratory effort and clear to auscultation bilaterally Cardio regular rate and regular rhythm GI GI Narrative: Abdomen soft with mild diffuse tenderness palpation. No guarding or rebound. Palpation: soft Extremity normal to inspection Neuro oriented x3 and no sensory deficits noted Sensorium / Orientation: alert Motor Exam: strength 5/5 throughout Psych mental status grossly normal Skin no rashes or lesions noted MDM MDM MDM Narrative Medical decision making narrative: IV line established. Labwork obtained to evaluate for leukocytosis, anemia, and electrolyte derangement. Patient given morphine and Zofran for pain and nausea. CT scan of the abdomen pelvis with IV contrast obtained to evaluate for colitis, diverticulitis, other acute bowel abnormality. History & Record Review Discussion w/independent historian: Patient Additional record(s) reviewed:: Prior labs Lab Data Attestation: I reviewed the patient's lab results. Labs: Laboratory Results - last 24 hr 12/01/23 10:35 WBC 12.1 H RBC 3.87 L Hgb 11.1 L Hct 34.7 L MCV 89.7 MCH 28.7 MCHC 32.0 RDW Std Deviation 45.1 H RDW Coeff of Rory 13.9 Plt Count 401 MPV 10.5 Immature Gran % (Auto) 0.600 Neut % (Auto) 71.5 H Lymph % (Auto) 16.6 L Edgar % (Auto) 8.4 Eos % (Auto) 2.2 Baso % (Auto) 0.7 Absolute Neuts (auto) 8.7 H Absolute Lymphs (auto) 2.01 Nucleated RBC % 0 PT 14.6 INR 1.1 APTT 28.2 Sodium 139 Potassium 3.9 Chloride 109 H Carbon Dioxide 23.0 Anion Gap 7 BUN 52 H Creatinine 1.86 H Estim Creat Clear Calc 25.91 Est GFR (MDRD) Af Amer 34 L Est GFR (MDRD) Non-Af 28 L BUN/Creatinine Ratio 28.0 H Glucose 139 H Lactic Acid 1.3 Calcium 9.4 Total Bilirubin 0.40 Direct Bilirubin 0.12 AST 18 ALT 20 Alkaline Phosphatase 76 Total Protein 6.9 Albumin 3.5 Globulin 3.4 Radiography Diagnostic Testing: Clinical Impression(s) from Imaging Studies Abdomen/Pelvis CT 12/01/23 11:08 IMPRESSION: 1. There are multiple colonic diverticula consistent with diverticulosis. No visualized colonic masses or bowel dilatation or high density hemorrhagic fluid within the colon or rectosigmoid junction on the current study. A nuclear medicine RBC scan can be obtained if there is continued clinical concern for GI bleeding. 2. The appendix contains a large appendicolith/6 calcified stone at its origin that measures 9.7 mm in diameter. The appendix is also thickened with a total diameter maximally measuring 1.05 cm in diameter, however there is no periappendiceal inflammatory stranding or active edema in the mucosal wall of the appendix and this is likely due to chronic inflammation or sequela from an appendix mucocele or similar process. Electronically Signed: Jeremie Hernandez MD at 12:39 EDT , Treatment and Re-Evaluation :: Patient declined morphine but did take Zofran. CBC reveals mildly elevated white count at 12.1 with a hemoglobin 11.1. This hemoglobin is stable when compared to prior values from last July. Chemistry studies reveal a BUN of 52 and creatinine 1.86. This is slightly increased over her baseline, but she does have chronic kidney disease. Glucose is 139. LFTs are unremarkable. CT scan without contrast obtained given her renal function. There are multiple colonic diverticula consistent with diverticulosis. No mass or bowel dilatation. The appendix contains a large appendicolith at its origin that measures 9.7 mm in diameter. The appendix is also thickened with a total diameter maximally measuring 1.05 cm. There is no periappendiceal inflammation or stranding. Stool guaiac is obtained and returns negative. I spoke with Dr. Hudson, on-call for surgery. Given the patient does have an elevated white count, although minimal, he did recommend observation in the hospital overnight for clear liquids, repeat abdominal exams, and repeat labs. This was discussed with the patient and she is in agreement. She is now stating that her back hurts worse than what her abdomen does and describes the pain is in the scapular region. I will obtain a chest x-ray as well as an EKG to ensure no acute abnormalities. Patient was admitted in July for an NSTEMI secondary to hypertensive emergency. She had a cardiac cath at that time that showed no focal disease. Portable chest x-ray per my interpretation reveals no acute abnormalities. EKG is sinus bradycardia 59 bpm with no evidence of ischemia. Dr. Hudson did ultimately present to the emergency room to see the patient. He notes that there was also evidence of a mass in the upper abdomen and he is concerned that she may have a duodenal mass with a reactive lymph node. He thinks this better explains the patient's pain including her upper back pain. Patient will be admitted overnight with plan for EGD tomorrow. Discharge Plan Dx/Rx/DC Orders Clinical Impression: Appendicolith, Back pain, Leukocytosis, Duodenal mass Disposition Disposition: Acute Care Hospital [facility]
[2023-12-01] MEDS: Ondansetron 4 MG/2 ML Vial IV (10:35)
[2023-12-01 10:39] LABS: Absolute Lymphocyte Count 2.01 X10^3/uL (0.83-4.51); Absolute Neutrophil Count 8.7 X10^3/uL (2.0-7.7); Basophil# 0.09 X10^3/uL; Basophil% 0.7 % (0-1); Eosinophil# 0.27 X10^3/uL; Eosinophils% 2.2 % (0-5); Hematocrit 34.7 % (37-47); Hemoglobin 11.1 g/dL (12.0-15.0); Lymphocyte # 2.01 X10^3/ul (0.83-4.51); Lymphocyte % 16.6 % (19-41); Mean Corpuscular Hgb 28.7 pg (27.0-32.0); Mean Corpuscular Volume 89.7 fL (81-99); Mean Platelet Vol. 10.5 fl (6.2-12.0); Monocyte# 1.02 X10^3/uL; Monocyte% 8.4 % (0-10); NRBC Flagged by Analyzer 0 % (0-5); Neutrophil # 8.67 X10^3/uL (2.7-7.7); Neutrophil % 71.5 % (47-70); Platelet Count 401 K/mm3 (150-450); RBC Distribution Width CV 13.9 % (11.6-14.6); RBC Distribution Width SD 45.1 fl (35.1-43.9); Red Blood Count 3.87 M/mm3 (4.2-5.4); White Blood Count 12.1 K/mm3 (4.4-11.0)
[2023-12-01] MEDS: 0.9% Normal Saline (1000mL) 1,000 ML 150 ML IV ×2 (10:39→17:13)
[2023-12-01 10:57] LABS: AST(SGOT) 18 U/L (15-37); Alanine Aminotransfer ALT/SGPT 20 U/L (13-56); Albumin, Serum 3.5 g/dL (3.2-5.0); Alkaline Phosphatase 76 U/L (45-117); Anion Gap 7 (5-15); BUN 52 mg/dL (7-18); Bilirubin, Direct 0.12 mg/dL (0.00-0.30); Calcium,Total 9.4 mg/dL (8.5-10.1); Chloride 109 mmol/L (98-107); Creatinine, Serum 1.86 mg/dL (0.55-1.02); EST Glomerular Filtration Rate 28 mL/min (>60); Est Glom Filt Rate - Afr Amer 34 mL/min (>60); Estimated Creatinine Clearance 25.91 ml/min; Globulin 3.4 g/dL (2.2-4.2); Glucose 139 mg/dL (74-106); Potassium 3.9 mmol/L (3.5-5.1); Protein, Total 6.9 g/dL (6.4-8.2); Sodium Level 139 mmol/L (136-145)
[2023-12-01 11:07] LABS: Lactic Acid 1.3 mmol/L (0.4-1.9)
--- NOTE | 2023-12-01 11:08 | CT_ITS ---
STUDY: CT ABDOMEN AND PELVIS WITHOUT CONTRAST REASON FOR EXAM: Female, 68 years old. abd pain, GI bleed RADIATION DOSAGE (If Supplied By Facility): CTDIvol = ( 12.87 ) mGy, DLP = ( 581.96 ) mGycm TECHNIQUE: Transaxial images were obtained from the dome of the diaphragm to the symphysis pubis without oral contrast, and without intravenous contrast. Sagittal and coronal images were reconstructed. Individualized dose optimization techniques were used for this CT. COMPARISON: None. FINDINGS: There are chronic interstitial fibrotic changes of the lung bases. Normal liver. There are surgical clips in the gallbladder fossa consistent with a prior cholecystectomy. Normal spleen. Normal pancreas. There is a small, circumscribed, smooth, low attenuation left adrenal mass, consistent with an adrenal adenoma. Normal right adrenal gland. There is mild cortical atrophy of the right kidney, consistent with chronic medical renal disease. There is moderate cortical atrophy of the left kidney, consistent with chronic medical renal disease. There is a 2.70 x 2.70 cm soft tissue mass/nodule to the right of the C-loop of the duodenum in the right upper quadrant, favored to represent an enlarged mesenteric lymph node or a nonspecified mesenteric tumor. Normal visualized stomach. Normal small intestine. There are multiple colonic diverticula consistent with diverticulosis. No visualized colonic masses or bowel dilatation or high density hemorrhagic fluid within the colon or rectosigmoid junction on the current study. A nuclear medicine RBC scan can be obtained if there is continued clinical concern for GI bleeding. The appendix contains a large appendicolith/6 calcified stone at its origin that measures 9.7 mm in diameter. The appendix is also thickened with a total diameter maximally measuring 1.05 cm in diameter, however there is no periappendiceal inflammatory stranding or active edema in the mucosal wall of the appendix and this is likely due to chronic inflammation or sequela from an appendix mucocele or similar process. There is diffuse atherosclerotic calcification of the abdominal aorta with elongation and tortuosity, but without a demonstrated aneurysm. Normal inferior vena cava. Normal retroperitoneum. Normal urinary bladder. Unremarkable uterus and adnexa. Normal abdominal wall. There are diffuse degenerative changes of the visualized lumbar spine. CT/Abdomen/Pelvis without Cont IMPRESSION: 1. There are multiple colonic diverticula consistent with diverticulosis. No visualized colonic masses or bowel dilatation or high density hemorrhagic fluid within the colon or rectosigmoid junction on the current study. A nuclear medicine RBC scan can be obtained if there is continued clinical concern for GI bleeding. 2. The appendix contains a large appendicolith/6 calcified stone at its origin that measures 9.7 mm in diameter. The appendix is also thickened with a total diameter maximally measuring 1.05 cm in diameter, however there is no periappendiceal inflammatory stranding or active edema in the mucosal wall of the appendix and this is likely due to chronic inflammation or sequela from an appendix mucocele or similar process. Electronically Signed: Jeremie Hernandez MD at 12:39 EDT ,
[2023-12-01 11:30] LABS: International Normalized Ratio 1.1; Prothrombin Time (Protime)PT. 14.6 SECONDS (11.7-14.9)
[2023-12-01 11:31] LABS: Partial Thromboplast Time 28.2 Seconds (24.1-36.2)
--- NOTE | 2023-12-01 13:38 | EKG12_ITS ---
Test Reason : GENERAL Blood Pressure : / mmHG Vent. Rate : 059 BPM Atrial Rate : 059 BPM P-R Int : 176 ms QRS Dur : 096 ms QT Int : 456 ms P-R-T Axes : 007 -25 -10 degrees QTc Int : 451 ms Sinus bradycardia Moderate voltage criteria for LVH, may be normal variant ( R in aVL , [place] product ) Borderline ECG Confirmed by Jose Capone ([id number]), visual effects editor TEZ RICHARDSON ([id number]) on 12/03/2023 10:21:23 AM Referred By: Confirmed By:Jose Capone
--- NOTE | 2023-12-01 14:13 | RAD_ITS ---
STUDY: X-RAY CHEST REASON FOR EXAM: Female, 68 years old. back pain TECHNIQUE: Single AP portable view of the chest. COMPARISON: July 25, 2023 FINDINGS: The lungs are clear and expanded. There is no demonstrated pleural abnormality. Normal size heart. Normal mediastinum and sarah. Normal visualized pulmonary arteries. There is atherosclerotic calcification of the aortic arch with tortuosity. There are diffuse degenerative changes of the visualized thoracic spine. Normal visualized ribs, clavicles, and shoulders. There is no demonstrated abnormality of the visualized soft tissue structures of the upper abdomen. RAD/Chest 1 View (Portable) IMPRESSION: 1. Degenerative changes, as described above. No demonstrated acute cardiopulmonary process. Electronically Signed: Jeremie Hernandez MD at 14:50 EDT ,
--- NOTE | 2023-12-01 14:16 | CON.PCM.SX_ITS ---
Assessment & Plan Assessment/Plan (1) Upper GI bleed: PLAN: Plan The patient seems to be having at least 1 episode of upper GI bleeding and she is having upper GI pain. She has CT scan today and a CT scan revealed a 2.7 x 2.7 cm mass in the right upper quadrant at the C-loop of the duodenum. This was read as possible mesenteric lymph node versus mesenteric mass. I also believe the pylorus looks thickened on the CT scan. She does have an appendicolith and that is why I was originally called. There is no inflammation around the appendix and she does not have any lower abdominal pain or nausea or vomiting. I am concerned for possible ulceration versus malignancy in the upper GI tract. I do not believe she has appendicitis given the fact that she does not have any lower abdominal pain or nausea or vomiting and the CT scan does not show any inflammation around her appendix. 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 I would like to perform an EGD tomorrow to evaluate. I discussed with the admit ting team. She could have full liquids until midnight and then n.p.o. after midnight and I will plan for EGD tomorrow to evaluate. I explained endoscopy in detail to the patient. I explained the risks including but not limited to stroke or heart attack with anesthesia, perforation of the GI tract, bleeding, infection. I explained that any of these could necessitate further emergency surgery. The patient understands and all questions were answered sufficiently. The patient wishes to proceed with procedure. Jules Hudson MD Pager: [facility] [address] [place] [address] [address] [place] [address] Office: HPI Consult Data Date of Consult: 12/01/23 HPI Narrative HPI Narrative: SUAD HADDAD, is a 68 F who presents with upper abdominal pain and black tarry stools. The patient reports that she had none of the symptoms a week ago. She said this past Saturday she started having upper abdominal pain and felt very crampy and sat down to have a bowel movement had a large black tarry bowel movement. The patient reports that she has remained painful throughout the week. She says she has not had any more bleeding or black tarry bowel movements but she still has upper abdominal pain and upper back pain. She does not have any lower abdominal pain. She denies any diarrhea. She denies nausea or vomiting. She denies fevers or chills. [facility] Medical History (Updated 12/01/23 @ 14:[address] Jules Hudson MD) CKD (chronic kidney disease) High cholesterol Hypertension Home Medications clonidine HCl 0.3 mg tablet 0.3 mg PO Q8H BP 07/25/23 [History Last Taken Unknown] ergocalciferol (vitamin D2) 1,250 mcg (50,000 unit) capsule (Vitamin D2) 50,000 unit PO QWEEK supplement 07/25/23 [History Last Taken Unknown] fenofibrate 54 mg tablet 54 mg PO DAILY CHOLESTEROL 07/25/23 [History Last Taken Unknown] lisinopril 40 mg tablet 40 mg PO BID BP 07/25/23 [History Last Taken Unknown] metoprolol tartrate 100 mg tablet 100 mg PO Q12H BP 07/25/23 [History Last Taken Unknown] multivitamin with folic acid 400 mcg tablet (Tab-A-Marcella) 1 tab PO DAILY supp lement 07/25/23 [History Last Taken Unknown] spironolactone 25 mg tablet 25 mg PO DAILY DIURESIS 07/25/23 [History Last Taken Unknown] Allergy/AdvReac Type Severity Reaction Status Date / Time No Known Allergies Allergy Verified 12/01/23 10:09 Social History Smoking Status: Never smoker ROS Constitutional Constitutional: Reports anorexia; Denies chills or fatigue Eyes Eyes: Denies blurry vision ENT HEENT: Denies abnormal hearing Cardiovascular Cardiovascular: Denies chest pain Respiratory/Chest Respiratory/Chest: Denies cough or dyspnea Gastrointestinal Gastrointestinal: Reports abdominal pain and melena; Denies constipation, diarrhea, nausea or vomiting Genitourinary Genitourinary: Denies change in urinary stream Musculoskeletal Musculoskeletal: Denies abnormal gait Integumentary Integumentary: Denies new lesions Neurologic Neurologic: Denies abnormal gait Psychiatric Psychiatric: Denies anxiety Physical Exam Const alert and oriented x3 HEENT normocephalic Eyes PERRL Resp normal respiratory effort Cardio Rate: regular rate Rhythm: regular rhythm GI soft to palpation Inspection: Negative for abdominal distention Palpation: tender epigastric Extremity normal to inspection Neuro CN's II-XII intact bilaterally Lab / Micro Data 12/01/23 10:35 12/01/23 10:35 Labs: Laboratory Results - last 24 hr 12/01/23 10:35: WBC 12.1 H, RBC 3.87 L, Hgb 11.1 L, Hct 34.7 L, MCV 89.7, MCH 28.7, MCHC 32.0, RDW Std Deviation 45.1 H, RDW Coeff of Rory 13.9, Plt Count 401, MPV 10.5, Immature Gran % (Auto) 0.600, Neut % (Auto) 71.5 H, Lymph % (Auto) 16.6 L, Scurry % (Auto) 8.4, Eos % (Auto) 2.2, Baso % (Auto) 0.7, Absolute Neuts (auto) 8.7 H, Absolute Lymphs (auto) 2.01, Nucleated RBC % 0, PT 14.6, INR 1.1, APTT 28.2, Sodium 139, Potassium 3.9, Chloride 109 H, Carbon Dioxide 23.0, Anion Gap 7, BUN 52 H, Creatinine 1.86 H, Estim Creat Clear Calc 25.91, Est GFR (MDRD) Af Amer 34 L, Est GFR (MDRD) Non-Af 28 L, BUN/Creatinine Ratio 28.0 H, Glucose 139 H, Lactic Acid 1.3, Calcium 9.4, Total Bilirubin 0.40, Direct Bilirubin 0.12, AST 18, ALT 20, Alkaline Phosphatase 76, Total Protein 6.9, Albumin 3.5, Globulin 3.4 Micro: Microbiology 12/01/23 13:00 Stool Stool Occult Blood (ABRAHAM) - Final Imaging Radiology Impression Abdomen/Pelvis CT 12/01/23 11:08 IMPRESSION: 1. There are multiple colonic diverticula consistent with diverticulosis. No visualized colonic masses or bowel dilatation or high density hemorrhagic fluid within the colon or rectosigmoid junction on the current study. A nuclear medicine RBC scan can be obtained if there is continued clinical concern for GI bleeding. 2. The appendix contains a large appendicolith/6 calcified stone at its origin that measures 9.7 mm in diameter. The appendix is also thickened with a total diameter maximally measuring 1.05 cm in diameter, however there is no periappendiceal inflammatory stranding or active edema in the mucosal wall of the appendix and this is likely due to chronic inflammation or sequela from an appendix mucocele or similar process. Electronically Signed: Jeremie Hernandez MD at 12:39 EDT ,
--- NOTE | 2023-12-01 15:07 | HP.PCM.HOS_ITS ---
HPI - General General Date of Admission: 12/01/23 Date of Service: 12/01/23 Chief Complaint: abdominal pain HPI Narrative SUAD HADDAD, is a 68 F who presents with abdominal pain. Abdominal pains been going on for 1 week. It is more or less constant, described as pain. Generalized all over her abdomen and not specific. No exacerbating or relieving factors. In the midst of all this, patient did have 1 day where she had a large amount of tarry stool. She presented to the emergency room for evaluation. She had a CAT scan that showed colonic diverticula and large pendulous in the appendix. It also mentioned something in the duodenum measuring 2.7 x 2.7 cm right of the C-loop of the duodenum in the right upper quadrant. Patient was seen by general surgery who was concerned that her abdominal pain not being due to the [place] but possibly due to this area around the duodenum and concern of a GI bleed. Tentative plan is for endoscopy on December 01. [facility] Medical History (Updated 12/01/23 @ 15:[address] Phillip Kingsley DO) CAD (coronary artery disease) Cerebral palsy CKD (chronic kidney disease) High cholesterol Hypertension Home Medications clonidine HCl 0.3 mg tablet 0.3 mg PO Q8H BP 07/25/23 [History Last Taken Un known] ergocalciferol (vitamin D2) 1,250 mcg (50,000 unit) capsule (Vitamin D2) 50,000 unit PO QWEEK supplement 07/25/23 [History Last Taken Unknown] fenofibrate 54 mg tablet 54 mg PO DAILY CHOLESTEROL 07/25/23 [History Last Taken Unknown] lisinopril 40 mg tablet 40 mg PO BID BP 07/25/23 [History Last Taken Unknown] metoprolol tartrate 100 mg tablet 100 mg PO Q12H BP 07/25/23 [History Last Taken Unknown] multivitamin with folic acid 400 mcg tablet (Tab-A-Marcella) 1 tab PO DAILY supplement 07/25/23 [History Last Taken Unknown] spironolactone 25 mg tablet 25 mg PO DAILY DIURESIS 07/25/23 [History Last Taken Unknown] Allergy/AdvReac Type Severity Reaction Status Date / Time No Known Allergies Allergy Verified 12/01/23 10:09 Family History (Updated 12/01/23 @ 15:[address] Phillip Kingsley DO) Other Heart disease Social History (Updated 12/01/23 @ 15:[address] Phillip Kingsley DO) Smoking Status: Never smoker alcohol intake: never substance use type: does not use ROS ROS Narrative Hard of hearing. All review of systems were negative except as mentioned above in the history of present illness and the other review of systems. Vital Signs Vital Signs Vital Signs: 12/01/23 10:07 12/01/23 11:29 12/01/23 12:49 Temperature 36.7 C 36.7 C 36.7 C Temperature Source Temporal Oral Oral Pulse Rate 57 L 53 L 50 L Respiratory Rate 16 18 18 Blood Pressure 118/82 H 125/72 H 108/72 Blood Pressure Mean 94 89 84 Pulse Ox 97 97 97 Oxygen Delivery Method Room Air Room Air Room Air 12/01/23 14:15 Temperature 36.6 C Temperature Source Pulse Rate 48 L Respiratory Rate 14 Blood Pressure 128/76 H Blood Pressure Mean 93 Pulse Ox 98 Oxygen Delivery Method Weight Weight: 74.072 kg Body Mass Index (BMI) 30.8 Physical Exam Narrative - Physical Exam General: Alert, Oriented x3, Cooperative. Hard of hearing HEENT: Atraumatic, PERRLA, EOMI, Normocephalic edentulous Oral: Moist Mucosa, No Gingival or Mucosal Lesions/ Ulcerations Neck: Supple, No JVD, Negative Carotid Bruits Lungs: Clear to auscultation, Normal air movement Cardiovascular: Regular rate, Normal S1, Normal S2, No murmurs Abdomen: Bowel Sounds Present, Soft, Non-Distended, No Hepato-splenomegaly. Ge neralized abdominal pain. Extremities: No clubbing, No cyanosis, No edema, Capillary Refill Less than 3 Seconds Skin: No rashes, No breakdown Musculoskeletal: No Tenderness to Palpation of Joints or Extremities Neurological: Neuro grossly intact Psych/Mental Status: Normal Affect, Appropriate Results Lab / Micro Data Attestation: I reviewed the patient's lab results. 12/01/23 10:35 12/01/23 10:35 Labs: Laboratory Results - last 24 hr 12/01/23 10:35: WBC 12.1 H, RBC 3.87 L, Hgb 11.1 L, Hct 34.7 L, MCV 89.7, MCH 28.7, MCHC 32.0, RDW Std Deviation 45.1 H, RDW Coeff of Rory 13.9, Plt Count 401, MPV 10.5, Immature Gran % (Auto) 0.600, Neut % (Auto) 71.5 H, Lymph % (Auto) 16.6 L, [place] % (Auto) 8.4, Eos % (Auto) 2.2, Baso % (Auto) 0.7, Absolute Neuts (auto) 8.7 H, Absolute Lymphs (auto) 2.01, Nucleated RBC % 0, PT 14.6, INR 1.1, APTT 28.2, Sodium 139, Potassium 3.9, Chloride 109 H, Carbon Dioxide 23.0, Anion Gap 7, BUN 52 H, Creatinine 1.86 H, Estim Creat Clear Calc 25.91, Est GFR (MDRD) Af Amer 34 L, Est GFR (MDRD) Non-Af 28 L, BUN/Creatinine Ratio 28.0 H, Glucose 139 H, Lactic Acid 1.3, Calcium 9.4, Total Bilirubin 0.40, Direct Bilirubin 0.12, AST 18, ALT 20, Alkaline Phosphatase 76, Total Protein 6.9, Albumin 3.5, Globulin 3.4 Micro: Microbiology 12/01/23 13:00 Stool Stool Occult Blood (ABRAHAM) - Final Imaging Radiology Impression Abdomen/Pelvis CT 12/01/23 11:08 IMPRESSION: 1. There are multiple colonic diverticula consistent with diverticulosis. No visualized colonic masses or bowel dilatation or high density hemorrhagic fluid within the colon or rectosigmoid junction on the current study. A nuclear medicine RBC scan can be obtained if there is continued clinical concern for GI bleeding. 2. The appendix contains a large appendicolith/6 calcified stone at its origin that measures 9.7 mm in diameter. The appendix is also thickened with a total diameter maximally measuring 1.05 cm in diameter, however there is no periappendiceal inflammatory stranding or active edema in the mucosal wall of the appendix and this is likely due to chronic inflammation or sequela from an appendix mucocele or similar process. Electronically Signed: Jeremie Hernandez MD at 12:39 EDT , Chest X-Ray 12/01/23 14:13 IMPRESSION: 1. Degenerative changes, as described above. No demonstrated acute cardiopulmonary process. Electronically Signed: Jeremie eHrnandez MD at 14:50 EDT , Assessment & Plan Assessment/Plan (1) Duodenal mass: (2) Upper GI bleed: PLAN: Plan Duodenal mass * Unclear what that is. If it is indeed a mass, lymph nodes, ulceration * General surgery on consultation and plan for EGD on the first. Suspected GI bleed * Patient was complaining of tarry stools earlier in the week * Will start the patient on pantoprazole IV twice daily. * No active bleeding so we will just check a hemoglobin in the morning. * Continue IV fluids for now until patient can eat adequately. Chronic conditions * Hypertension: Continue with clonidine, lisinopril and metoprolol tartrate. Hold spironolactone while on IV fluids. * Hyperlipidemia: Hold fenofibrate for now. * History of CAD: Stable. * Cerebral palsy: No acute issues VTE prophylaxis with SCDs Charges/Coding Visit Charges Inpatient E&M: 19479 Init Hosp L3
[2023-12-01] MEDS: cloNIDine HCl 0.1 MG Tablet 0.3 MG PO ×2 (17:17→21:47)
[2023-12-01] MEDS: Pantoprazole Sodium 40 MG in 0.9% Normal Saline (100mL MB+) 100 ML 330 MG IV (21:47)
[2023-12-01] MEDS: Lisinopril 40 MG Tablet PO (21:47)
[2023-12-02] VITALS (10 sets, daily range): BP systolic 100–148; BP diastolic 58–80; PULSE 56–64; RESP 15–16; TEMP 36–36.6; O2SAT 93–98; BMI 30.8
[2023-12-02] MEDS: 0.9% Normal Saline (1000mL) 1,000 ML 150 ML IV ×2 (00:08→06:36)
[2023-12-02 04:48] LABS: Anion Gap 6 (5-15); BUN 37 mg/dL (7-18); BUN/Creat Ratio 25.3 RATIO (10-20); Calcium,Total 8.4 mg/dL (8.5-10.1); Chloride 117 mmol/L (98-107); Creatinine, Serum 1.46 mg/dL (0.55-1.02); EST Glomerular Filtration Rate 38 mL/min (>60); Est Glom Filt Rate - Afr Amer 46 mL/min (>60); Glucose 106 mg/dL (74-106); Potassium 3.9 mmol/L (3.5-5.1); Sodium Level 141 mmol/L (136-145)
[2023-12-02 05:36] LABS: Absolute Lymphocyte Count 2.03 X10^3/uL (0.83-4.51); Absolute Neutrophil Count 4.7 X10^3/uL (2.0-7.7); Basophil# 0.07 X10^3/uL; Basophil% 0.9 % (0-1); Eosinophils% 3.8 % (0-5); Hematocrit 29.6 % (37-47); Hemoglobin 9.4 g/dL (12.0-15.0); Lymphocyte # 2.03 X10^3/ul (0.83-4.51); Lymphocyte % 25.7 % (19-41); Mean Corp Hgb Conc 31.8 g/dL (32-36); Mean Corpuscular Hgb 28.8 pg (27.0-32.0); Mean Corpuscular Volume 90.8 fL (81-99); Mean Platelet Vol. 10.4 fl (6.2-12.0); Monocyte# 0.76 X10^3/uL; Monocyte% 9.6 % (0-10); NRBC Flagged by Analyzer 0 % (0-5); Neutrophil % 59.5 % (47-70); Platelet Count 288 K/mm3 (150-450); RBC Distribution Width CV 13.7 % (11.6-14.6); RBC Distribution Width SD 45.5 fl (35.1-43.9); Red Blood Count 3.26 M/mm3 (4.2-5.4); White Blood Count 7.9 K/mm3 (4.4-11.0)
[2023-12-02] MEDS: cloNIDine HCl 0.1 MG Tablet 0.3 MG PO ×3 (06:34→22:01)
--- NOTE | 2023-12-02 07:11 | PN.SURG_ITS ---
Subjective Subjective Patient no complaints overnight and reports that her pain is mildly improved. Objective Data Objective Data Vital Signs: Vital Signs Temp Pulse Resp BP Pulse Ox O2 Del Method 98 F 57 L 16 141/58 H 98 Room Air 12/02/23 04:06 12/02/23 04:06 12/02/23 04:06 12/02/23 04:06 12/02/23 04:06 12/02/23 04:06 Oxygen Delivery Method Room Air Weight: 163 lb 4.8 oz Body Mass Index (BMI) 30.8 Intake & Output: Intake and Output for Last 24 Hours 11/30/23 12/01/23 12/02/23 23:59 23:59 23:59 Intake Total 2810 / 3010 1220 / 1220 Balance 2810 / 3010 1220 / 1220 Lab / Micro Data 12/02/23 05:25 12/02/23 03:45 Labs: Laboratory Results - last 24 hr 12/01/23 10:35: WBC 12.1 H, RBC 3.87 L, Hgb 11.1 L, Hct 34.7 L, MCV 89.7, MCH 28.7, MCHC 32.0, RDW Std Deviation 45.1 H, RDW Coeff of Rory 13.9, Plt Count 401, MPV 10.5, Immature Gran % (Auto) 0.600, Neut % (Auto) 71.5 H, Lymph % (Auto) 16.6 L, [place] % (Auto) 8.4, Eos % (Auto) 2.2, Baso % (Auto) 0.7, Absolute Neuts (auto) 8.7 H, Absolute Lymphs (auto) 2.01, Nucleated RBC % 0, PT 14.6, INR 1.1, APTT 28.2, Sodium 139, Potassium 3.9, Chloride 109 H, Carbon Dioxide 23.0, Anion Gap 7, BUN 52 H, Creatinine 1.86 H, Estim Creat Clear Calc 25.91, Est GFR (MDRD) Af Amer 34 L, Est GFR (MDRD) Non-Af 28 L, BUN/Creatinine Ratio 28.0 H, Glucose 139 H, Lactic Acid 1.3, Calcium 9.4, Total Bilirubin 0.40, Direct Bilirubin 0.12, AST 18, ALT 20, Alkaline Phosphatase 76, Total Protein 6.9, Albumin 3.5, Globulin 3.4 12/02/23 03:45: WBC Cancelled, Corrected WBC Cancelled, RBC Cancelled, Hgb Cancelled, Hct Cancelled, MCV Cancelled, MCH Cancelled, MCHC Cancelled, RDW Std Deviation Cancelled, RDW Coeff of Rory Cancelled, Plt Count Cancelled, MPV Cancelled, Immature Gran % (Auto) Cancelled, Neut % (Auto) Cancelled, Lymph % (Auto) Cancelled, [place] % (Auto) Cancelled, Eos % (Auto) Cancelled, Baso % (Auto) Cancelled, Absolute Neuts (auto) Cancelled, Absolute Lymphs (auto) Cancelled, Total Counted Cancelled, Neutrophils % (Manual) Cancelled, Band Neutrophils % Cancelled, Lymphocytes % (Manual) Cancelled, Monocytes % (Manual) Cancelled, Eosinophils % (Manual) Cancelled, Basophils % (Manual) Cancelled, Metamyelocytes % Cancelled, Myelocytes % Cancelled, Promyelocytes % Cancelled, Blast Cells % Cancelled, Plasma Cell % (Manual) Cancelled, Other Cells % Cancelled, Nucleated RBC % Cancelled, Nucleated RBCs/100 WBC Cancelled, Differential Comment Cancell ed, Diff Path Review Cancelled, Hypersegmented Neuts Cancelled, Atypical Lymphocytes Cancelled, Reactive Lymphocytes Cancelled, Smudge Cells Cancelled, Toxic Granulation Cancelled, Toxic Vacuolation Cancelled, Dohle Bodies Cancelled, Shivam Rods Cancelled, Platelet Estimate Cancelled, Plt Morphology C omment Cancelled, RBC Morphology Cancelled 12/02/23 03:45: RBC Morphology Cancelled, Polychromasia Cancelled, Hypochromasia Cancelled, Basophilic Stippling Cancelled, Anisocytosis Cancelled, Microcytosis Cancelled, Macrocytosis Cancelled, Spherocytes Cancelled, Sickle Cells Ca ncelled, Target Cells Cancelled, Tear Drop Cells Cancelled, Ovalocytes Cancelled, Stomatocytes Cancelled, [place] Bodies Cancelled, [place] Cells Cancelled, Bite Cells Cancelled, Crenated Cell Cancelled, Acanthocytes (Spur) Cancelled, Rouleaux Cancelled, Schistocytes Cancelled, Sodium 141, Potassium 3.9, Chloride 117 H, Carbon Dioxide 18.0 L, Anion Gap 6, BUN 37 H, Creatinine 1.46 H, Estim Creat Clear Calc 33.00, Est GFR (MDRD) Af Amer 46 L, Est GFR (MDRD) Non-Af 38 L, BUN/Creatinine Ratio 25.3 H, Glucose 106, Calcium 8.4 L 12/02/23 05:25: WBC 7.9, RBC 3.26 L, Hgb 9.4 L, Hct 29.6 L, MCV 90.8, MCH 28.8, MCHC 31.8 L, RDW Std Deviation 45.5 H, RDW Coeff of Rory 13.7, Plt Count 288, MPV 10.4, Immature Gran % (Auto) 0.500, Neut % (Auto) 59.5, Lymph % (Auto) 25.7, [place] % (Auto) 9.6, Eos % (Auto) 3.8, Baso % (Auto) 0.9, Absolute Neuts (auto) 4.7, Absolute Lymphs (auto) 2.03, Nucleated RBC % 0 Micro: Microbiology 12/01/23 13:00 Stool Stool Occult Blood (ABRAHAM) - Final Radiography Diagnostic Testing: Radiology Impression Abdomen/Pelvis CT 12/01/23 11:08 IMPRESSION: 1. There are multiple colonic diverticula consistent with diverticulosis. No visualized colonic masses or bowel dilatation or high density hemorrhagic fluid within the colon or rectosigmoid junction on the current study. A nuclear medicine RBC scan can be obtained if there is continued clinical concern for GI bleeding. 2. The appendix contains a large appendicolith/6 calcified stone at its origin that measures 9.7 mm in diameter. The appendix is also thickened with a total diameter maximally measuring 1.05 cm in diameter, however there is no periappendiceal inflammatory stranding or active edema in the mucosal wall of the appendix and this is likely due to chronic inflammation or sequela from an appendix mucocele or similar process. Electronically Signed: Jeremie Hernandez MD at 12:39 EDT , Chest X-Ray 12/01/23 14:13 IMPRESSION: 1. Degenerative changes, as described above. No demonstrated acute cardiopulmonary process. Electronically Signed: Jeremie Hernandez MD at 14:50 EDT , Physical Exam Const oriented x3 and no apparent distress Resp normal respiratory effort GI soft to palpation Palpation: tender RUQ Assessment & Plan Assessment/Plan (1) Duodenal mass: (2) Upper GI bleed: PLAN: Plan The patient reported having black tarry stools about a week ago which slowly turned to rust colored. She also reports that she is having right upper quadrant pain and epigastric pain. CT was concerning for an appendicolith but her white count came down to normal on no antibiotics with no left shift today. I do not believe she has acute appendicitis. I am planning on an EGD to evaluate the duodenal bulb and C-loop today. She does have a small mass in the right upper quadrant which could be reactive lymph node versus mesenteric mass. The duodenum also looks thickened on the CT scan. Jules Hudson MD Pager: [facility] [address] [place] [address], [address] [place] [address] Office:
[2023-12-02] MEDS: Lisinopril 40 MG Tablet PO ×2 (08:49→22:00)
[2023-12-02] MEDS: Pantoprazole Sodium 40 MG in 0.9% Normal Saline (100mL MB+) 100 ML 330 MG IV ×2 (08:49→21:59)
[2023-12-02] MEDS: Metoprolol Tartrate 100 MG Tablet PO (08:49)
--- NOTE | 2023-12-02 09:01 | PN.HOSP_ITS ---
Reason for Visit Reason for Visit: Diagnoses Other diseases of stomach and duodenum (12/01/23) Gastrointestinal hemorrhage, unspecified (12/01/23) Subjective Subjective Patient is a 68-year-old lady who presented with abdominal and back pain as well as black tarry stools. Objective Data Objective Data Vital Signs: Vital Signs Temp Pulse Resp BP Pulse Ox O2 Del Method 98 F 61 16 141/58 H 98 Room Air 12/02/23 04:06 12/02/23 08:49 12/02/23 04:06 12/02/23 04:06 12/02/23 04:06 12/02/23 04:06 Oxygen Delivery Method Room Air Weight: 74.072 kg Body Mass Index (BMI) 30.8 Intake & Output: Intake and Output for Last 24 Hours 11/30/23 12/01/23 12/02/23 23:59 23:59 23:59 Intake Total 2810 / 3010 1220 / 1220 Balance 2810 / 3010 1220 / 1220 Lab / Micro Data 12/02/23 05:25 12/02/23 03:45 Labs: Laboratory Results - last 24 hr 12/01/23 10:35: WBC 12.1 H, RBC 3.87 L, Hgb 11.1 L, Hct 34.7 L, MCV 89.7, MCH 28.7, MCHC 32.0, RDW Std Deviation 45.1 H, RDW Coeff of Rory 13.9, Plt Count 401, MPV 10.5, Immature Gran % (Auto) 0.600, Neut % (Auto) 71.5 H, Lymph % (Auto) 16.6 L, [place] % (Auto) 8.4, Eos % (Auto) 2.2, Baso % (Auto) 0.7, Absolute Neuts (auto) 8.7 H, Absolute Lymphs (auto) 2.01, Nucleated RBC % 0, PT 14.6, INR 1.1, APTT 28.2, Sodium 139, Potassium 3.9, Chloride 109 H, Carbon Dioxide 23.0, Anion Gap 7, BUN 52 H, Creatinine 1.86 H, Estim Creat Clear Calc 25.91, Est GFR (MDRD) Af Amer 34 L, Est GFR (MDRD) Non-Af 28 L, BUN/Creatinine Ratio 28.0 H, Glucose 139 H, Lactic Acid 1.3, Calcium 9.4, Total Bilirubin 0.40, Direct Bilirubin 0.12, AST 18, ALT 20, Alkaline Phosphatase 76, Total Protein 6.9, Albumin 3.5, Globulin 3.4 12/02/23 03:45: WBC Cancelled, Corrected WBC Cancelled, RBC Cancelled, Hgb C ancelled, Hct Cancelled, MCV Cancelled, MCH Cancelled, MCHC Cancelled, RDW Std Deviation Cancelled, RDW Coeff of Rory Cancelled, Plt Count Cancelled, MPV Cancelled, Immature Gran % (Auto) Cancelled, Neut % (Auto) Cancelled, Lymph % (Auto) Cancelled, [place] % (Auto) Cancelled, Eos % (Auto) Cancelled, Baso % (Auto) Cancelled, Absolute Neuts (auto) Cancelled, Absolute Lymphs (auto) Cancelled, Total Counted Cancelled, Neutrophils % (Manual) Cancelled, Band Neutrophils % Cancelled, Lymphocytes % (Manual) Cancelled, Monocytes % (Manual) Cancelled, Eosinophils % (Manual) Cancelled, Basophils % (Manual) Cancelled, Metamyelocytes % Cancelled, Myelocytes % Cancelled, Promyelocytes % Cancelled, Blast Cells % Cancelled, Plasma Cell % (Manual) Cancelled, Other Cells % Cancelled, Nucleated RBC % Cancelled, Nucleated RBCs/100 WBC Cancelled, Differential Comment Cancelled, Diff Path Review Cancelled, Hypersegmented Neuts Cancelled, Atypical Lymphocytes Cancelled, Reactive Lymphocytes Cancelled, Smudge Cells Cancelled, Toxic Granulation Cancelled, Toxic Vacuolation Cancelled, Dohle Bodies Cancelled, Shivam Rods Cancelled, Platelet Estimate Cancelled, Plt Morphology Comment Cancelled, RBC Morphology Cancelled 12/02/23 03:45: RBC Morphology Cancelled, Polychromasia Cancelled, Hypochromasia Cancelled, Basophilic Stippling Cancelled, Anisocytosis Cancelled, Microcytosis Cancelled, Macrocytosis Cancelled, Spherocytes Cancelled, Sickle Cells Cancelled, Target Cells Cancelled, Tear Drop Cells Cancelled, Ovalocytes Cancelled, Stomatocytes Cancelled, [place] Bodies Cancelled, [place]erv[place] Cells Cancelled, Bite Cells Cancelled, Crenated Cell Cancelled, Acanthocytes (Spur) Cancelled, Rouleaux Cancelled, Schistocytes Cancelled, Sodium 141, Potassium 3.9, Chloride 117 H, Carbon Dioxide 18.0 L, Anion Gap 6, BUN 37 H, Creatinine 1.46 H, Estim Creat Clear Calc 33.00, Est GFR (MDRD) Af Amer 46 L, Est GFR (MDRD) Non-Af 38 L, BUN/Creatinine Ratio 25.3 H, Glucose 106, Calcium 8.4 L 12/02/23 05:25: WBC 7.9, RBC 3.26 L, Hgb 9.4 L, Hct 29.6 L, MCV 90.8, MCH 28.8, MCHC 31.8 L, RDW Std Deviation 45.5 H, RDW Coeff of Rory 13.7, Plt Count 288, MPV 10.4, Immature Gran % (Auto) 0.500, Neut % (Auto) 59.5, Lymph % (Auto) 25.7, [place] % (Auto) 9.6, Eos % (Auto) 3.8, Baso % (Auto) 0.9, Absolute Neuts (auto) 4.7, Absolute Lymphs (auto) 2.03, Nucleated RBC % 0 Micro: Microbiology 12/01/23 13:00 Stool Stool Occult Blood (ABRAHAM) - Final Radiography Diagnostic Testing: Radiology Impression Abdomen/Pelvis CT 12/01/23 11:08 IMPRESSION: 1. There are multiple colonic diverticula consistent with diverticulosis. No visualized colonic masses or bowel dilatation or high density hemorrhagic fluid within the colon or rectosigmoid junction on the current study. A nuclear medicine RBC scan can be obtained if there is continued clinical concern for GI bleeding. 2. The appendix contains a large appendicolith/6 calcified stone at its origin that measures 9.7 mm in diameter. The appendix is also thickened with a total diameter maximally measuring 1.05 cm in diameter, however there is no periappendiceal inflammatory stranding or active edema in the mucosal wall of the appendix and this is likely due to chronic inflammation or sequela from an appendix mucocele or similar process. Electronically Signed: Jeremie Hernandez MD at 12:39 EDT , Chest X-Ray 12/01/23 14:13 IMPRESSION: 1. Degenerative changes, as described above. No demonstrated acute cardiopulmonary process. Electronically Signed: Jeremie Hernandez MD at 14:50 EDT , Physical Exam Narrative GENERAL: cooperative HEENT: Atraumatic; normocephalic EYES; Anicteric, Normal Conjunctiva NECK; supple, normal thyroid, RESPIRATORY: Diminished to auscultation CARDIOVASCULAR: Regular S1 S2, GI: soft, normoactive bowel sounds, : No Renal angle tenderness; EXTREMITIES: No edema, no clubbing, MUSCULOSKELETAL: no muscle wasting NEURO: Awake; no lateralizing signs. SKIN: No Rash PSYCH; Flat affect Assessment & Plan Assessment/Plan (1) Duodenal mass: (2) Upper GI bleed: PLAN: Plan Patient is a 68-year-old lady who presented with abdominal and back pain as well as black tarry stools. 1. Suspected upper GI bleed ? Patient was started on Protonix consult placed to general surgery for possible endoscopic evaluation 2.Abnormal CT ? CT of the abdomen and pelvis was concerning for appendicolith patient however did not have symptoms consistent with the finding. General surgery on board 3. Hypertension - Blood pressure controlled, home medications continued with dose adjustment as needed 4. Dyslipidemia ? Patient is on fenofibrate, held on admission 5. Cerebral palsy ? Supportive care 6. Coronary artery disease ? No ischemic symptoms on admission 7. DVT prophylaxis ? Bilateral SCDs for now given patient's presentation on admission Time spent in the patient's overall evaluation,decision-making process, review of diagnostic data, adjustment of management, discussion with other providers, nursing nursing and ancillary staff involved in patient's care documentation, 50 Minutes Charges/Coding Visit Charges Inpatient E&M: 68967 Subs Hosp L3
[2023-12-02] MEDS: Lactated Ringers 1,000 ML 15 ML IV (10:34)
--- NOTE | 2023-12-02 11:30 | EGD_PTH ---
PATIENT: NELIDA MUSTAFA LOC: MS3 U#:[id number] AGE/SX: 68/F ROOM: [facility] RE12/01/[address]: Dr. Ronald Lowe MD : [id number] BED: 1 DIS: 12/03/2023 SPEC #: [id number] RECD: 12/02/23 13:50 STATUS: CM RETwyla #: [id number] JERZY: 12/02/23 11:[address]: Jules Hudson DEPT: SURGICAL PATHOLOGY RECD BY: Izabella Lo ENTERED: 12/03/23 08:40 SP TYPE: EGD BIOPSY OTHR DR: MD Dr. Ronald Lombardo MD Dr. Lisa Malys, DO Dr. Nicholas F Kotsonis, MD Tissues: Duodenum, NOS Procedures: Surgery Specimen Level IV Comments: @ Ordering doctor for SUIV edited from to @ chela MORRIS at 12/03/23 0937 @ Submitting doctor edited from to @ by ALEXANDRA at 12/03/23 0937 HEADER OPERATION: EGD biopsy PRE-OP DIAGNOSIS: Duodenal mass, Upper GI bleed TISSUE SUBMITTED: Duodenal ulcer biopsy MICROSCOPIC DIAGNOSIS Duodenal ulcer, biopsy: Fragments of duodenal mucosa with extensive ulceration, fibrinopurulent exudation, acute and chronic inflammation, granulation tissue reaction and reactive epithelial changes. CYRIL/ 12/04/23 MICROSCOPIC DESCRIPTION Slides are reviewed. GROSS DESCRIPTION Received in fixative is one container labeled with the patient's name and designated Duodenal ulcer biopsy. The specimen consists of multiple irregular fragments of light dewey soft tissue that in aggregate measure 1.0 x 0.5 x 0.1 cm. The specimen is totally submitted in one cassette. CYRIL/ 12/03/2023 TC:2 CPT: 08331
--- NOTE | 2023-12-02 11:36 | OP.EGD_ITS ---
Patient Name: Kary Mustafa Procedure Date: 12/02/2023 10:50 AM Date of : 1955 Age: 68 Procedure: Upper GI endoscopy Indications: Abdominal pain in the right upper quadrant, Abnormal CT of the GI tract Providers: Jules Hudson MD Medicines: Propofol per Anesthesia Patient Profile: This is a 68 year old female. Refer to note in patient chart for documentation of history and physical. Complications: No immediate complications. Estimated blood loss: Minimal. Procedure: Pre-Anesthesia Assessment: - Prior to the procedure, a History and Physical was performed, and patient medications and allergies were reviewed. The patient's tolerance of previous anesthesia was also reviewed. The risks and benefits of the procedure and the sedation options and risks were discussed with the patient. All questions were answered, and informed consent was obtained. Prior Anticoagulants: The patient has taken no anticoagulant or antiplatelet agents. After reviewing the risks and benefits, the patient was deemed in satisfactory condition to undergo the procedure. After obtaining informed consent, the endoscope was passed under direct vision. Throughout the procedure, the patient's blood pressure, pulse, and oxygen saturations were monitored continuously. The Endoscope was introduced through the mouth, and advanced to the jejunum. The upper GI endoscopy was accomplished without difficulty. The patient tolerated the procedure well. Scope In: 11:06:17 AM Scope Out: 11:22:28 AM Total Procedure Duration Time 0 hours 16 minutes 11 seconds Findings: Esophagitis with no bleeding was found at the gastroesophageal junction. The stomach was normal. One non-bleeding cratered duodenal ulcer with no stigmata of bleeding was found in the second portion of the duodenum. There was food that was unable to pass this area. It was pushed forward into the duodenum. There was some stenosis of the duodenum. Biopsies were taken with a cold forceps for histology. Biopsies were taken with a cold forceps for histology. Impression: - Reflux esophagitis with no bleeding. - Normal stomach. - Non-bleeding duodenal ulcer with no stigmata of bleeding. Biopsied. Recommendation: - [facility]. - Use Prilosec (omeprazole) 40 mg PO daily for 2 months. - Use sucralfate tablets 1 gram PO QID for 2 weeks. - Continue present medications. Procedure Code(s): --- Professional --- 71333, Esophagogastroduodenoscopy, flexible, transoral; with biopsy, single or multiple Diagnosis Code(s): --- Professional --- K21.00, Gastro-esophageal reflux disease with esophagitis, without bleeding K26.9, Duodenal ulcer, unspecified as acute or chronic, without hemorrhage or perforation R10.11, Right upper quadrant pain R93.3, Abnormal findings on diagnostic imaging of other parts of digestive tract CPT copyright 2021 [employer]. All rights reserved. The codes documented in this report are preliminary and upon boiler shop supervisor review may be revised to meet current compliance requirements. Jules Hudson MD 12/02/2023 11:36:17 AM This report has been signed electronically. Number of Addenda: 0 Note Initiated On: 12/02/2023 10:50 AM
--- NOTE | 2023-12-02 11:36 | PN_ITS ---
Progress Note I performed an EGD on the patient. The GE junction did show some signs of esophagitis. The stomach appeared normal. Once entering the bulb of the duodenum there were some food pieces that were unable to pass the stenosis. I was able to push these pieces past the stenosis. There was an ulcer at the area of stenosis. Biopsies were obtained. I like to start the patient on a PPI and Carafate and I will order full liquids. If she is tolerating full liquids tomorrow she will likely be discharged home on a soft diet on PPI and Carafate. Pathology pending. Jules Hudson MD Pager: [facility] [address] [place] [address], [address] [place] [address] Office:
--- NOTE | 2023-12-02 11:37 | OP.CCLET_ITS ---
12/02/2023 Awa Hargrove [address] [place] [address] Re : Upper GI endoscopy procedure for Kary Mustafa Dear Dr. Hargrove This procedure was performed on Saturday, December 02, 2023. My impressions and recommendations are as follows: Impressions : - Reflux esophagitis with no bleeding. - Normal stomach. - Non-bleeding duodenal ulcer with no stigmata of bleeding. Biopsied. Recommendations : - [facility]. - Use Prilosec (omeprazole) 40 mg PO daily for 2 months. - Use sucralfate tablets 1 gram PO QID for 2 weeks. - Continue present medications. My findings are described in the full procedure note, which is enclosed. If I can be of further assistance, please feel free to contact me at Doctor phone number(s): , Work: . Sincerely, Jules Hudson MD 12/02/2023 11:36:17 AM This report has been signed electronically.
--- NOTE | 2023-12-02 13:05 | CASEMGMT ---
RN?CM?BUS TRANSPORTATION MANAGER?CM?to room to meet with patient for initial transition planning/care coordination?assessment.?RN?CM?introduced self and role at [facility].? Pt voices understanding and consents to?assessment?at this time.? Pt resting in bed in no distress at this time.? Pt is A/O at this time and answers all questions appropriately.?? Care providers, pharmacy, and demographics verified/updated at this time. PCP: Dr Hargrove Specialists: none Preferred Pharmacy: [facility] Insurance: Johnna ARRIETA Prescription Benefit:?yes Living Will/HPOA:?Pt has both LW and HCPOA, who is her . These are on file @ [facility]. LNOK: , Paul. 8 biological children. 3 step-children Living Arrangements: Lives w/her in 2nd-floor apt w/a flight of stairs to go up. Pt states she does have difficulty w/the stairs. She was provided w/ housing info from when she was @ [facility] 07/2023 and referral was made w/[facility]. Pt states they did contact her but she forgets where they're at in the process. She states she was finally able to apply for [employer] housing about 1-2 weeks ago. Pt states her assists her in and out of tub and he does most home mgnt tasks. Pt manages her own medications. Transportation:? pt and both drive DME: States has the following DME:?cane, grab bars ?Pt states no need for further DME at this time.? HHC/SNF: No hx of either. Pt declines wanting HHC. No needs identified. Pt wishes to return home and states has no concerns with going home at time of discharge and she states she feels safe to return home. CM?to follow for any further discharge planning/needs.? Pt voices no further concerns/needs at this time.? Advised pt to ask for?CM?if any further questions/concerns/needs arise.? Voices understanding. PLAN:??Home Lonnie BSN?RN?CM
[2023-12-02] MEDS: Sucralfate 1 GM Tablet PO ×2 (17:24→22:00)
[2023-12-03 05:12] VITALS: BP 116/59; PULSE 63; RESP 16; TEMP 36.8; O2SAT 96
[2023-12-03] MEDS: cloNIDine HCl 0.1 MG Tablet 0.3 MG PO (05:15)
[2023-12-03 06:51] LABS: Absolute Lymphocyte Count 1.83 X10^3/uL (0.83-4.51); Basophil# 0.05 X10^3/uL; Basophil% 0.7 % (0-1); Eosinophils% 4.4 % (0-5); Hematocrit 29.8 % (37-47); Hemoglobin 9.5 g/dL (12.0-15.0); Lymphocyte # 1.83 X10^3/ul (0.83-4.51); Lymphocyte % 26.7 % (19-41); Mean Corp Hgb Conc 31.9 g/dL (32-36); Mean Corpuscular Hgb 29.1 pg (27.0-32.0); Mean Corpuscular Volume 91.1 fL (81-99); Mean Platelet Vol. 11.5 fl (6.2-12.0); Monocyte# 0.68 X10^3/uL; Monocyte% 9.9 % (0-10); NRBC Flagged by Analyzer 0 % (0-5); Neutrophil # 3.96 X10^3/uL (2.7-7.7); Neutrophil % 57.9 % (47-70); Platelet Count 276 K/mm3 (150-450); RBC Distribution Width CV 13.7 % (11.6-14.6); RBC Distribution Width SD 46.1 fl (35.1-43.9); Red Blood Count 3.27 M/mm3 (4.2-5.4); White Blood Count 6.9 K/mm3 (4.4-11.0)
--- NOTE | 2023-12-03 06:59 | PN.SURG_ITS ---
Subjective Subjective The patient reported that she tolerated full liquids yesterday. She is not having any abdominal pain today. Objective Data Objective Data Vital Signs: Vital Signs Temp Pulse Resp BP Pulse Ox O2 Del Method 98.3 F 63 16 116/59 L 96 Room Air 12/03/23 05:12 12/03/23 05:12 12/03/23 05:12 12/03/23 05:12 12/03/23 05:12 12/03/23 05:12 Oxygen Delivery Method Room Air Weight: 163 lb 4.8 oz Body Mass Index (BMI) 30.8 Intake & Output: Intake and Output for Last 24 Hours 12/01/23 12/02/23 12/03/23 23:59 23:59 23:59 Intake Total 2810 / 3010 2200 / 2400 400 / 400 Balance 2810 / 3010 2200 / 2400 400 / 400 Lab / Micro Data 12/03/23 05:45 12/02/23 03:45 Labs: Laboratory Results - last 24 hr 12/03/23 05:45: WBC 6.9, RBC 3.27 L, Hgb 9.5 L, Hct 29.8 L, MCV 91.1, MCH 29.1, MCHC 31.9 L, RDW Std Deviation 46.1 H, RDW Coeff of Rory 13.7, Plt Count 276, MPV 11.5, Immature Gran % (Auto) 0.400, Neut % (Auto) 57.9, Lymph % (Auto) 26.7, Hardin % (Auto) 9.9, Eos % (Auto) 4.4, Baso % (Auto) 0.7, Absolute Neuts (auto) 4.0, Absolute Lymphs (auto) 1.83, Nucleated RBC % 0 Micro: Microbiology 12/01/23 13:00 Stool Stool Occult Blood (ABRAHAM) - Final Physical Exam Const oriented x3 and no apparent distress Resp normal respiratory effort GI soft to palpation and non-tender Assessment & Plan Assessment/Plan (1) Duodenal ulcer: PLAN: The patient had duodenal ulcer yesterday on scope. Pathology from around the ulcer is pending. I have started on a PPI and Carafate. She is not having any pain today I will advance her to a mechanical soft diet. As long as she tolerates diet and is pain-free with eating she can be discharged home on PPI and Carafate and she will follow-up with me in 2 weeks. Pathology is pending. If the pathology is benign I will likely repeat a CT in 1 to 2 months to check on that right upper quadrant mass. If the pathology is malignant I will refer her to tertiary care. Jules Hudson MD Pager: [facility] [address] [place] [address], [address] [place] [address] Office:
[2023-12-03] MEDS: Sucralfate 1 GM Tablet PO (07:01)
[2023-12-03 07:41] LABS: Anion Gap 6 (5-15); BUN 23 mg/dL (7-18); BUN/Creat Ratio 16.2 RATIO (10-20); Calcium,Total 8.6 mg/dL (8.5-10.1); Chloride 117 mmol/L (98-107); Creatinine, Serum 1.42 mg/dL (0.55-1.02); EST Glomerular Filtration Rate 39 mL/min (>60); Est Glom Filt Rate - Afr Amer 47 mL/min (>60); Estimated Creatinine Clearance 33.93 ml/min; Glucose 105 mg/dL (74-106); Magnesium 1.6 mg/dL (1.6-2.6); Phosphorus 2.4 mg/dL (2.5-4.9); Potassium 4.1 mmol/L (3.5-5.1); Sodium Level 143 mmol/L (136-145)
[2023-12-03 07:50] VITALS: BP 105/44; PULSE 55; RESP 16; TEMP 36.8; O2SAT 96
[2023-12-03 07:53] VITALS: PULSE 55
--- NOTE | 2023-12-03 08:54 | PCM.DC.SUM ---
Providers Date of Admission: 12/01/23 Date of Discharge: 12/03/23 Primary Care Physician: Dr. Awa Hargrove, Consultations 12/01/23 16:24 Consult: General Surgery Routine Consulting Provider: Jules Hudson Reason for Consult: duodenal mass EMERGENT Consult: No MD Notified: Yes Date Notified: 12/01/23 Time Notified: 14:35 Method of Notification: ED Physician Initiated Reason For Visit: DUODENAL MASS Diagnosis Discharge Diagnosis (1) Duodenal ulcer: Status: Acute Code(s): K26.9 - Duodenal ulcer, unspecified as acute or chronic, without hemorrhage or perforation Plan Patient is a 68-year-old lady who presented with abdominal and back pain as well as black tarry stools. 1. Suspected upper GI bleed ? Patient was started on Protonix consult placed to general surgery for possible endoscopic evaluation ? Endoscopic evaluation performed on 12/02/2023. Findings and recommendations as below Impressions : - Reflux esophagitis with no bleeding. - Normal stomach. - Non-bleeding duodenal ulcer with no stigmata of bleeding. Biopsied. Recommendations : - [facility]. - Use Prilosec (omeprazole) 40 mg PO daily for 2 months. - Use sucralfate tablets 1 gram PO QID for [address] ? CT of the abdomen and pelvis was concerning for appendicolith patient however did not have symptoms consistent with the finding. General surgery on board 3. Hypertension - Blood pressure controlled, home medications continued with dose adjustment as needed 4. Dyslipidemia ? Patient is on fenofibrate, held on admission 5. Cerebral palsy ? Supportive care 6. Coronary artery disease ? No ischemic symptoms on admission 7. DVT prophylaxis ? Bilateral SCDs for now given patient's presentation on admission Time spent in the patient's overall evaluation,decision-making process, review of diagnostic data, adjustment of management, discussion with other providers, nursing nursing and ancillary staff involved in patient's care documentation, 50 Minutes Medications at Discharge Home Medications clonidine HCl 0.3 mg tablet 0.3 mg PO Q8H BP 07/25/23 ergocalciferol (vitamin D2) 1,250 mcg (50,000 unit) capsule (Vitamin D2) 50,000 unit PO QWEEK supplement 07/25/23 fenofibrate 54 mg tablet 54 mg PO DAILY CHOLESTEROL 07/25/23 lisinopril 40 mg tablet 40 mg PO BID BP 07/25/23 metoprolol tartrate 100 mg tablet 100 mg PO Q12H BP 07/25/23 multivitamin with folic acid 400 mcg tablet (Tab-A-Marcella) 1 tab PO DAILY supplement 07/25/23 spironolactone 25 mg tablet 25 mg PO DAILY DIURESIS 07/25/23 pantoprazole 40 mg tablet,delayed release (Protonix) 40 mg PO DAILY #60 tabs 12/03/23 sucralfate 1 gram tablet 1 g PO 1HR_ACHS 14 days #56 tabs 12/03/23 Hospital Course Summary of Care Provided Minutes Spent on Discharge: 32 Physical Exam Narrative GENERAL: cooperative HEENT: Atraumatic; normocephalic EYES; Anicteric, Normal Conjunctiva NECK; supple, normal thyroid, RESPIRATORY: Diminished to auscultation CARDIOVASCULAR: Regular S1 S2, GI: soft, normoactive bowel sounds, : No Renal angle tenderness; EXTREMITIES: No edema, no clubbing, MUSCULOSKELETAL: no muscle wasting NEURO: Awake; no lateralizing signs. SKIN: No Rash PSYCH; Flat affect Weight / BMI Weight Weight: 74.072 kg Body Mass Index (BMI) 30.8 ABG / Lab / Microbiology Data 12/03/23 05:45 12/03/23 05:45 Laboratory: Laboratory Results - last 24 hr 12/03/23 05:45: WBC 6.9, RBC 3.27 L, Hgb 9.5 L, Hct 29.8 L, MCV 91.1, MCH 29.1, MCHC 31.9 L, RDW Std Deviation 46.1 H, RDW Coeff of Rory 13.7, Plt Count 276, MPV 11.5, Immature Gran % (Auto) 0.400, Neut % (Auto) 57.9, Lymph % (Auto) 26.7, Hockley % (Auto) 9.9, Eos % (Auto) 4.4, Baso % (Auto) 0.7, Absolute Neuts (auto) 4.0, Absolute Lymphs (auto) 1.83, Nucleated RBC % 0, Sodium 143, Potassium 4.1, Chloride 117 H, Carbon Dioxide 20.0 L, Anion Gap 6, BUN 23 H, Creatinine 1.42 H, Estim Creat Clear Calc 33.93, Est GFR (MDRD) Af Amer 47 L, Est GFR (MDRD) Non-Af 39 L, BUN/Creatinine Ratio 16.2, Glucose 105, Calcium 8.6, Phosphorus 2.4 L, Magnesium 1.6 Microbiology: Microbiology 12/01/23 13:00 Stool Stool Occult Blood (ABRAHAM) - Final D/C Instructions Discharge Diet: No restrictions Discharge Activity: Return to Normal Activity Call your doctor if you observe: Fever of 101 or Higher, Shortness of breath, Fainting spells and Chest pain Meaningful Use Info Meaningful Use Diagnoses (Choose all that apply): None applicable Discharge Plan Admission Admit Date/Time: 12/01/23 14:32 Attending Provider: Ronald Lowe Primary Care Provider: Awa Hargrove Consulting Providers: Jules Hudson; Claudy Munoz Discharge Orders/Prescriptions Prescriptions: New sucralfate 1 gram Tablet 1 g PO 1HR_ACHS 14 Days Qty: 56 0RF pantoprazole [Protonix] 40 mg tablet,delayed release (DR/EC) 40 mg PO DAILY Qty: 60 0RF Continued metoprolol tartrate 100 mg tablet 100 mg PO Q12H Patient Comments: TAKE 1 TABLET BY MOUTH TWICE DAILY clonidine HCl 0.3 mg tablet 0.3 mg PO Q8H Patient Comments: TAKE 1 TABLET BY MOUTH THREE TIMES DAILY lisinopril 40 mg tablet 40 mg PO BID Patient Comments: TAKE 1 TABLET BY MOUTH TWICE DAILY spironolactone 25 mg tablet 25 mg PO DAILY Patient Comments: TAKE 1 TABLET BY MOUTH EVERY DAY fenofibrate 54 mg tablet 54 mg PO DAILY Patient Comments: TAKE 1 TABLET BY MOUTH EVERY DAY ergocalciferol (vitamin D2) [Vitamin D2] 1,250 mcg (50,000 unit) capsule 50,000 unit PO QWEEK multivitamin with folic acid [Tab-A-Marcella] 400 mcg tablet 1 tab PO DAILY Referrals / Follow Up: Jules Hudson MD [Med Staff - Active Staff] - Within 1 Month Awa Hargrove DO [Primary Care Provider] - Within 2 Weeks Disposition Disposition (needs filled in before D/C Order can be placed): Home, Self Care Charges/Coding Visit Charges Inpatient E&M: 60116 Disch Hosp >30min
--- NOTE | 2023-12-03 10:02 | PHA.DC.MC.R ---
Pharmacy [facility] has performed discharge medication reconciliation and counseling for this patient. The patient's discharge medication list was reviewed for discrepancies and discrepancies were resolved. The patient was counseled on the following discharge medications and changes in medications for homegoing were reviewed. The Reason for Use, instructions for use, and potential side effects were reviewed for all new medications. The patient's questions regarding all of their medications were answered. 1. Pantoprazole 40 mg PO daily x 2 months 2. Sucralfate 1 gram PO 4x/day x 2 weeks The patient was able to verbally demonstrate an understanding of their discharge medications. Medications at Discharge Home Medications clonidine HCl 0.3 mg tablet 0.3 mg PO Q8H BP 07/25/23 ergocalciferol (vitamin D2) 1,250 mcg (50,000 unit) capsule (Vitamin D2) 50,000 unit PO QWEEK supplement 07/25/23 fenofibrate 54 mg tablet 54 mg PO DAILY CHOLESTEROL 07/25/23 lisinopril 40 mg tablet 40 mg PO BID BP 07/25/23 metoprolol tartrate 100 mg tablet 100 mg PO Q12H BP 07/25/23 multivitamin with folic acid 400 mcg tablet (Tab-A-Marcella) 1 tab PO DAILY supplement 07/25/23 spironolactone 25 mg tablet 25 mg PO DAILY DIURESIS 07/25/23 pantoprazole 40 mg tablet,delayed release (Protonix) 40 mg PO DAILY #60 tabs 12/03/23 sucralfate 1 gram tablet 1 g PO 1HR_ACHS 14 days #56 tabs 12/03/23
[2023-12-03] MEDS: Pantoprazole Sodium 40 MG Tablet PO (10:18)
== END 2023-12-03 14:00 | disposition home or self-care (01) | DRG 384 ==
LOC: ED 13:58 → MS3 15:14
PROVIDERS: Surgery; Admitting Provider Family Medicine; Emergency Provider Emergency Medicine; PCP Family Medicine; Visit Provider Internal Medicine
PROC: 0DJ08ZZ Inspection of Upper Intestinal Tract, Via Natural or Artificial Opening Endoscopic (ICD-10-PCS; CPT 43235; principal; 2023-12-02 11:25)
DX: K26.9 Duodenal ulcer, unspecified as acute or chronic, without hemorrhage or perforation (principal); E78.00 Pure hypercholesterolemia, unspecified; G80.9 Cerebral palsy, unspecified; I12.9 Hypertensive chronic kidney disease with stage 1 through stage 4 chronic kidney disease, or unspecified chronic kidney disease; N18.9 Chronic kidney disease, unspecified; I25.10 Atherosclerotic heart disease of native coronary artery without angina pectoris; K21.00 Gastro-esophageal reflux disease with esophagitis, without bleeding; K92.2 Gastrointestinal hemorrhage, unspecified; R10.11 Right upper quadrant pain; R93.3 Abnormal findings on diagnostic imaging of other parts of digestive tract
CPT/HCPCS: 36415; 71045; 74176; 80048; 80076; 82274; 83605; 83735; 84100; 85025; 85610; 85730; 88305; 93005; 99284; J7030; J7120; J2405

== ENCOUNTER → 2024-04-15 07:06 | Outpatient (REF) | payer MEDICARE, SELFPAY ==
[2024-04-15 08:18] LABS: Absolute Lymphocyte Count 1.52 X10^3/uL (0.83-4.51); Absolute Neutrophil Count 5.4 X10^3/uL (2.0-7.7); Basophil# 0.07 X10^3/uL; Basophil% 0.9 % (0-1); Eosinophil# 0.28 X10^3/uL; Eosinophils% 3.4 % (0-5); Hematocrit 27.9 % (37-47); Hemoglobin 8.5 g/dL (12.0-15.0); Lymphocyte # 1.52 X10^3/ul (0.83-4.51); Lymphocyte % 18.6 % (19-41); Mean Corp Hgb Conc 30.5 g/dL (32-36); Mean Corpuscular Hgb 27.1 pg (27.0-32.0); Mean Corpuscular Volume 88.9 fL (81-99); Mean Platelet Vol. 10.2 fl (6.2-12.0); Monocyte# 0.84 X10^3/uL; Monocyte% 10.3 % (0-10); NRBC Flagged by Analyzer 0 % (0-5); Neutrophil # 5.36 X10^3/uL (2.7-7.7); Neutrophil % 65.7 % (47-70); Platelet Count 352 K/mm3 (150-450); RBC Distribution Width CV 15.8 % (11.6-14.6); RBC Distribution Width SD 50.7 fl (35.1-43.9); Red Blood Count 3.14 M/mm3 (4.2-5.4); White Blood Count 8.2 K/mm3 (4.4-11.0)
[2024-04-15 08:38] LABS: Anion Gap 8 (5-15); BUN 58 mg/dL (7-18); BUN/Creat Ratio 12.2 RATIO (10-20); Calcium,Total 8.9 mg/dL (8.5-10.1); Chloride 105 mmol/L (98-107); Creatinine, Serum 4.74 mg/dL (0.55-1.02); EST Glomerular Filtration Rate 10 mL/min (>60); Est Glom Filt Rate - Afr Amer 12 mL/min (>60); Glucose 114 mg/dL (74-106); Potassium 4.4 mmol/L (3.5-5.1); Sodium Level 138 mmol/L (136-145)
== END ==
LOC: OLS.SW 07:06
PROVIDERS: PCP Family Medicine; Visit Provider Family Medicine
DX: Z02.2 Encounter for examination for admission to residential institution (principal); N17.9 Acute kidney failure, unspecified
CPT/HCPCS: 36415; 80048; 85025

== ENCOUNTER → 2024-04-27 | Outpatient (REF) | payer MEDICARE, SELFPAY ==
[2024-04-27 07:18] LABS: Bacteria 0 SEEN /hpf (None Seen); Mucous, Urine 0 SEEN /hpf (<or=2+); Squamous Epithelial Cells - UA 0 SEEN /hpf (5-10)
[2024-04-27 07:37] LABS: Ketone-Dipstick Negative (Negative); Leukocyte Esterase-Dipstick 500 /ul (Negative); Nitrite-Dipstick Negative (Negative); Occult Blood-Urine 25 /ul (Negative); Protein-Dipstick 100 mg/dl (Negative); Specific Gravity, Urine 1.005 (1.002-1.030); Urine Bilirubin Dipstick Negative (Negative); Urine Urobilinogen Normal (Normal); Urine pH 6.5 (5.0 - 8.0)
[2024-04-27 08:06] LABS: Color, Urine YELLOW (Yellow); Glucose, Dipstick NEGATIVE (Normal)
[2024-04-27 08:07] LABS: Urine Clarity Sl. Cloudy (Clear)
[2024-04-27 08:25] LABS: White Blood Cells >100 SEEN /hpf (0-5)
[2024-04-27 08:28] LABS: Red Blood Cells-Urine 5-10 SEEN /hpf (0-5)
== END ==
LOC: OLS.SW 03:00
PROVIDERS: PCP Family Medicine; Visit Provider Family Medicine
DX: R30.0 Dysuria (principal)
CPT/HCPCS: 81001; 87077; 87086; 87088; 87186

== ENCOUNTER 2024-06-18 17:30 | Emergency (ER) | payer MEDICARE, SELFPAY ==
[2024-06-18 17:31] VITALS: BP 179/99; PULSE 89; RESP 16; TEMP 36.6; O2SAT 98; BMI 30.7
--- NOTE | 2024-06-18 17:37 | CT_ITS ---
STUDY: CT CERVICAL SPINE WITHOUT CONTRAST REASON FOR EXAM: Female, 68 years old. trauma RADIATION DOSAGE (If Supplied By Facility): CTDIvol = ( 20.69 ) mGy, DLP = ( 850.20 ) mGycm TECHNIQUE: High resolution transaxial imaging was performed without contrast material. Sagittal and coronal images were reconstructed. Individualized dose optimization techniques were used for this CT. COMPARISON: None FINDINGS: Normal craniovertebral junction. Normal anterior atlantoaxial articulation. Normal odontoid process. Abnormal straightening of lordotic curvature.. No evidence for acute fracture or subluxation. There is narrowing of the disc spaces at C4-5 through C7-T1 in association with dense anterior bridging osteophytes. There is incomplete bridging of the osteophyte at C2-3 and C3-4 raising question of fractures however there is no appreciable prevertebral soft tissue swelling and the margins appear relatively sclerotic suggesting chronic changes. MRI or bone scan may be useful for further evaluation if clinically warranted Normal visualized soft tissue structures. CT/Spine Cervical without Contras IMPRESSION: Advanced arthritic changes without definitive evidence for acute fracture.. Findings as above Electronically Signed: Devante Santizo MD at 18:31 EDT ,
--- NOTE | 2024-06-18 17:37 | CT_ITS ---
We are attempting to reach an attending provider to discuss findings. An addendum with communication details will be sent when the communication is complete. STUDY: CT BRAIN WITHOUT CONTRAST REASON FOR EXAM: Female, 68 years old. trauma RADIATION DOSAGE (If Supplied By Facility): CTDIvol = ( 44.99 ) mGy, DLP = ( 812.98 ) mGycm TECHNIQUE: Transaxial CT imaging of the brain was performed without administration of intravenous contrast material. Individualized dose optimization techniques were used for this CT. COMPARISON: No relevant priors. FINDINGS: Hematoma in the scalp overlying the frontal bone without associated skull fracture Calcific plaquing of the cavernous carotids Normal size ventricles and extra-axial spaces for the patient''s age. Normal white matter tracts of the cerebral hemispheres. Normal basal ganglia and thalami. Normal brainstem. Normal cerebellum. There is mild subarachnoid hemorrhage in the left cerebral hemisphere and mixed acute/subacute subdural hematoma on the right with maximum dimension of 9.4 mm also in association with mild subarachnoid hemorrhage. There is no significant mass effect upon the right lateral ventricle or midline shift There are no findings of an acute ischemic infarction. Moderate mucosal thickening of the left maxillary sinus. CT/Brain/Head without Contrast IMPRESSION: Hematoma in the scalp overlying the left frontal bone without evidence for acute fracture. There is a contrecoup subtle acute/subacute subdural hematoma in the right cerebral hemisphere in association with mild subarachnoid hemorrhage bilaterally. Electronically Signed: Devante Santizo MD at 18:23 EDT ,
[2024-06-18] MEDS: Lidocaine 1% /Epi 1:100 (20ml) 20 ML Vial INFILT (17:41)
--- NOTE | 2024-06-18 17:55 | ED.VIS.FALL ---
HPI HPI - Fall History of Present Illness Chief Complaint: Fall Informant: patient, family, EMS and SNF Narrative Narrative: 68-year-old female presenting to the emergency room with head and neck injury. Patient has reportedly had several falls today the last 1 was reportedly out of her wheelchair when she struck her head. Was noted to have a hematoma and laceration to the forehead. She was placed in c-collar by EMS. Patient was noted to also be more confused today. She is dialysis patient but still makes urine apparently. They checked her urine and started her on ciprofloxacin. No reported fevers. Patient is on Eliquis due to atrial fibrillation. Her dialysis treatments are Saturday. [facility] Medical History (Updated 06/18/24 @ 18:[address] Eulogio Browne DO) Dialysis patient Post-menopausal CAD (coronary artery disease) Cerebral palsy High cholesterol CKD (chronic kidney disease) Hypertension Home Medications ?Medication ?Instructions ?Recorded ?Last Taken ?Type clonidine HCl 0.3 mg tablet 0.3 mg PO Q8H BP 07/25/23 Unknown History ergocalciferol (vitamin D2) 1,250 50,000 unit PO QWEEK supplement 07/25/23 Unknown History mcg (50,000 unit) capsule (Vitamin D2) fenofibrate 54 mg tablet 54 mg PO DAILY CHOLESTEROL 07/25/23 Unknown History lisinopril 40 mg tablet 40 mg PO BID BP 07/25/23 Unknown History metoprolol tartrate 100 mg tablet 100 mg PO Q12H BP 07/25/23 Unknown History multivitamin with folic acid 400 1 tab PO DAILY supplement 07/25/23 Unknown History mcg tablet (Tab-A-Marcella) spironolactone 25 mg tablet 25 mg PO DAILY DIURESIS 07/25/23 Unknown History pantoprazole 40 mg tablet,delayed 40 mg PO DAILY #60 tabs 12/03/23 Unknown Rx release (Protonix) sucralfate 1 gram tablet 1 g PO BID 12/17/23 Unknown History Allergy/AdvReac Type Severity Reaction Status Date / Time No Known Allergies Allergy Verified 12/17/23 14:24 Family History Other Heart disease Social History Smoking Status: Never smoker alcohol intake: never substance use type: does not use ROS ROS ED Constitutional Constitutional ED: Denies chills, fever(s) or weight loss Eyes Eyes: Denies change in vision or diplopia ENT ENT ED: Denies ear pain, rhinorrhea or sore throat Cardiovascular Cardiovascular: Denies chest pain, orthopnea, palpitations or racing heartbeat Respiratory/Chest Respiratory/Chest: Denies cough, dyspnea or orthopnea Gastrointestinal Gastrointestinal: Denies abdominal pain, diarrhea, nausea or vomiting Genitourinary Genitourinary ED: Denies dysuria, hematuria or urinary frequency Musculoskeletal Musculoskeletal: Reports neck pain; Denies arthralgias or myalgias Integumentary Reports other Details: Forehead hematoma/laceration ; Denies abscess or rash Neurologic Neurologic: Reports headache(s) and other Details: History of cerebral palsy myoclonic jerks increased confusion ; Denies weakness Psychiatric Psychiatric: Denies anxiety, depression, suicidal ideation or suicidal thoughts Endocrine Endocrinology: Denies polydipsia, polyphagia or polyuria Allergic/Immunologic Allergic/Immunologic ED: Denies mouth swelling, tongue swelling or urticaria EXAM Physical Exam Const Vital Signs: 06/18/24 17:31 06/18/24 17:36 06/18/24 19:32 Temperature 97.8 F Temperature Source Temporal Pulse Rate 89 92 Respiratory Rate 16 23 H Respiratory Effort Normal Respiratory Depth Normal Respiratory Pattern Normal Blood Pressure 179/99 H 137/80 H Blood Pressure Mean 125 99 Pulse Ox 98 93 Oxygen Delivery Method Room Air Room Air Room Air 06/18/24 19:54 Temperature 97 F L Temperature Source Pulse Rate 92 Respiratory Rate 23 H Respiratory Effort Respiratory Depth Respiratory Pattern Blood Pressure 137/80 H Blood Pressure Mean 99 Pulse Ox 93 Oxygen Delivery Method Positive well nourished and well developed General Appearance ED: well developed and NAD HEENT Reports normocephalic and moist mucous membranes HEENT Narrative: There is about a dime size circular laceration in the mid forehead with active venous bleeding. The wound edges are irregular and complex showing signs of concussion. Eyes PERRL and EOMs intact bilaterally Neck no lymphadenopathy, supple and no JVD Neck Narrative: C-collar is present Resp normal respiratory effort and clear to auscultation bilaterally Cardio regular rate, regular rhythm and no murmurs GI normal to inspection, nondistended, normoactive bowel sounds and non-tender Palpation: soft Back/Spine no CVA tenderness and normal ROM Extremity normal to inspection General Extremety ED: Negative for edema General Extremity: Negative for edema Neuro CN's II-XII intact bilaterally Neuro Narrative: Patient is alert she does not know the month. She is conversant and tells me about her hair. She does not recall falling. Intermittent myoclonic jerks [place] Coma Scale: document GCS findings Spontaneous Obeys Commands Oriented 15 Sensorium / Orientation: alert Psych mental status grossly normal Mood & Affect: Negative for depressed or tearful Skin no rashes or lesions noted Skin Narrative: See HEENT exam MDM MDM MDM Narrative Medical decision making narrative: Differential diagnosis includes but not limited to skull fracture intracranial hemorrhage cervical spine fracture myofascial strain ligamentous injury laceration neurovascular injury infection sepsis Because of the active bleeding down on Eliquis 1% lidocaine with epinephrine was used to anesthetized the forehead laceration. Once adequate anesthesia was obtained the wound was closed using a total of 4 simple erupted 4-0 Ethilon sutures. Patient was taken to CT where CT of brain and cervical spine was obtained. This demonstrates intraparenchymal bleed on the left frontal area and what appears to be an epidural hematoma in the right parietal occipital region. Because she is on Eliquis, TXA and PCC was ordered. My independent interpretation of the single view chest x-ray is no acute pneumothorax or obvious fracture. My independent interpretation of the plain films of the pelvis is no acute fracture. Patient has been seen in [facility]. I spoke with the family who agrees to transfer there. I spoke with [facility] transfer line and the attending emergency physician. We are currently awaiting ground transportation. While awaiting transfer the patient did begin to vomit she received a dose of Zofran. I have kept her in a c-collar given the CT findings and her altered mental status and inability to feel that I could adequately clear her from the collar at this time. History & Record Review Discussion w/independent historian: EMS personnel, Patient, Family and Other (SNF Paperwork) Lab Data Attestation: I reviewed the patient's lab results. Labs: Laboratory Results - last 24 hr 06/18/24 06/18/24 18:10 18:34 WBC 15.9 H RBC 3.44 L Hgb 10.5 L Hct 31.8 L MCV 92.4 MCH 30.5 MCHC 33.0 RDW Std Deviation 51.6 H RDW Coeff of Rory 15.9 H Plt Count 357 MPV 10.2 Immature Gran % (Auto) 1.400 H Neut % (Auto) 76.4 H Lymph % (Auto) 13.2 L [place] % (Auto) 7.9 Eos % (Auto) 0.7 Baso % (Auto) 0.4 Absolute Neuts (auto) 12.1 H Absolute Lymphs (auto) 2.09 Nucleated RBC % 0 PT 19.5 H INR 1.7 APTT 34.6 Sodium 134 L Potassium 4.4 Chloride 96 L Carbon Dioxide 29.0 Anion Gap 8 BUN 41 H Creatinine 3.99 H Estim Creat Clear Calc 12.06 Est GFR (MDRD) Af Amer 14 L Est GFR (MDRD) Non-Af 12 L BUN/Creatinine Ratio 10.3 Glucose 138 H Calcium 10.0 Radiography Diagnostic Testing: Clinical Impression(s) from Imaging Studies Brain CT 06/18/24 17:37 IMPRESSION: Hematoma in the scalp overlying the left frontal bone without evidence for acute fracture. There is a contrecoup subtle acute/subacute subdural hematoma in the right cerebral hemisphere in association with mild subarachnoid hemorrhage bilaterally. Electronically Signed: Devante Santizo MD at 18:23 EDT , ADDENDUM: 06/18/24 1848 IMPRESSION: undefined ADDENDUM: 06/18/24 1856 IMPRESSION: undefined Cervical Spine CT 06/18/24 17:37 IMPRESSION: Advanced arthritic changes without definitive evidence for acute fracture.. Findings as above Electronically Signed: Devante Santizo MD at 18:31 EDT , Chest X-Ray 06/18/24 18:50 IMPRESSION: ASHD. No acute cardiopulmonary pathology Electronically Signed: Devante Santizo MD at 19:05 EDT , Pelvis X-Ray 06/18/24 18:50 IMPRESSION: Degenerative changes of both hips. No evidence for acute hip or pelvic fracture Electronically Signed: Devante Santizo MD at 19:56 EDT , Management Discussion w/another healthcare provider: Forensic Social Worker ([facility] ED ( Dr Castillo)) and Pharmacist Critical Care Time Critical Care Time: Yes Critical care time (excluding procedures): 30-74 minutes (35 min), Including time spent:, Discussing w/Patient &/or Family/Loan Servicing Officer, Discussing w/Consultants, Arranging Admission or Transfer and Performing Direct Patient Care at Bedside Discharge Plan Triage Chief Complaint: Fall ED Provider: Eulogio Browne Dx/Rx/DC Orders Clinical Impression: Acute intracranial hemorrhage, Anticoagulated, Complex laceration of forehead, AMS (altered mental status), Dialysis patient Prescriptions: No Action sucralfate 1 gram tablet 1 g PO BID metoprolol tartrate 100 mg tablet 100 mg PO Q12H Patient Comments: TAKE 1 TABLET BY MOUTH TWICE DAILY clonidine HCl 0.3 mg tablet 0.3 mg PO Q8H Patient Comments: TAKE 1 TABLET BY MOUTH THREE TIMES DAILY lisinopril 40 mg tablet 40 mg PO BID Patient Comments: TAKE 1 TABLET BY MOUTH TWICE DAILY spironolactone 25 mg tablet 25 mg PO DAILY Patient Comments: TAKE 1 TABLET BY MOUTH EVERY DAY fenofibrate 54 mg tablet 54 mg PO DAILY Patient Comments: TAKE 1 TABLET BY MOUTH EVERY DAY ergocalciferol (vitamin D2) [Vitamin D2] 1,250 mcg (50,000 unit) capsule 50,000 unit PO QWEEK multivitamin with folic acid [Tab-A-Marcella] 400 mcg tablet 1 tab PO DAILY pantoprazole [Protonix] 40 mg tablet,delayed release (DR/EC) 40 mg PO DAILY Qty: 60 0RF Primary Care Provider: Awa Hargrove Referrals: Awa Hargrove DO [Primary Care Provider] - Print Language: Chinese Disposition Disposition: Acute Care Hospital Discharge Location: [facility]
--- NOTE | 2024-06-18 18:38 | ED.RN ---
PT ACCEPTED AT [facility] N2N [id number] ED 2 ED
[2024-06-18] MEDS: TRANEXAMIC ACID 1,000 MG in 0.9% Normal Saline (100mL Bag) 100 ML 440 MG IV (18:43)
[2024-06-18 18:45] LABS: Absolute Lymphocyte Count 2.09 X10^3/uL (0.83-4.51); Absolute Neutrophil Count 12.1 X10^3/uL (2.0-7.7); Basophil% 0.4 % (0-1); Eosinophils% 0.7 % (0-5); Hematocrit 31.8 % (37-47); Hemoglobin 10.5 g/dL (12.0-15.0); Lymphocyte # 2.09 X10^3/ul (0.83-4.51); Lymphocyte % 13.2 % (19-41); Mean Corpuscular Hgb 30.5 pg (27.0-32.0); Mean Corpuscular Volume 92.4 fL (81-99); Mean Platelet Vol. 10.2 fl (6.2-12.0); Monocyte% 7.9 % (0-10); Neutrophil # 12.14 X10^3/uL (2.7-7.7); Neutrophil % 76.4 % (47-70); Platelet Count 357 K/mm3 (150-450); RBC Distribution Width CV 15.9 % (11.6-14.6); RBC Distribution Width SD 51.6 fl (35.1-43.9); Red Blood Count 3.44 M/mm3 (4.2-5.4); White Blood Count 15.9 K/mm3 (4.4-11.0)
[2024-06-18 18:46] LABS: Basophil# 0.07 X10^3/uL; Eosinophil# 0.11 X10^3/uL; Monocyte# 1.26 X10^3/uL; NRBC Flagged by Analyzer 0 % (0-5)
--- NOTE | 2024-06-18 18:50 | RAD_ITS ---
STUDY: X-RAY - PELVIS REASON FOR EXAM: Female, 68 years old. trauma TECHNIQUE: One view of the pelvis was obtained. COMPARISON: None. FINDINGS: There is a non-specific bowel gas pattern. Normal visualized soft tissue structures. Normal bilateral iliac wings, sacroiliac joints and visualized sacrum. Normal visualized bilateral superior and inferior pubic rami. Normal pubic symphysis. Normal ischial tuberosities. Normal visualized right femoral head. Prominent acetabular strut. Normal right hip joint. Normal visualized left femoral head. Prominent acetabular spurring. Normal left hip joint. RAD/Pelvis 1 or 2 Views IMPRESSION: Degenerative changes of both hips. No evidence for acute hip or pelvic fracture Electronically Signed: Devante Santizo MD at 19:56 EDT ,
--- NOTE | 2024-06-18 18:50 | RAD_ITS ---
STUDY: X-RAY CHEST REASON FOR EXAM: Female, 68 years old. trauma TECHNIQUE: AP portable COMPARISON: None. FINDINGS: The lungs are clear and expanded. There is no demonstrated pleural abnormality. Heart is mildly enlarged. Normal mediastinum and sarah. Normal visualized pulmonary arteries. Tortuous aortic arch and descending thoracic aorta. Vascular catheter noted on the right with tip at the atrial caval junction Dorsal spine demonstrates mild degenerative change. Normal visualized ribs, clavicles, and shoulders. There is no demonstrated abnormality of the visualized soft tissue structures of the upper abdomen. RAD/Chest 1 View (Portable) IMPRESSION: ASHD. No acute cardiopulmonary pathology Electronically Signed: Devante Santizo MD at 19:05 EDT ,
[2024-06-18 18:58] LABS: International Normalized Ratio 1.7; Prothrombin Time (Protime)PT. 19.5 SECONDS (11.7-14.9)
[2024-06-18 18:59] LABS: Partial Thromboplast Time 34.6 Seconds (24.1-36.2)
[2024-06-18] MEDS: VIAFLEX IV (19:00)
[2024-06-18] MEDS: HUM PROTHROMBIN CPLX LANS IV (19:00)
[2024-06-18 19:07] LABS: Anion Gap 8 (5-15); BUN 41 mg/dL (7-18); BUN/Creat Ratio 10.3 RATIO (10-20); Chloride 96 mmol/L (98-107); Creatinine, Serum 3.99 mg/dL (0.55-1.02); EST Glomerular Filtration Rate 12 mL/min (>60); Est Glom Filt Rate - Afr Amer 14 mL/min (>60); Estimated Creatinine Clearance 12.06 ml/min; Glucose 138 mg/dL (74-106); Potassium 4.4 mmol/L (3.5-5.1); Sodium Level 134 mmol/L (136-145)
[2024-06-18 19:32] VITALS: BP 137/80; PULSE 92; RESP 23; O2SAT 93
[2024-06-18] MEDS: Ondansetron 4 MG/2 ML Vial IV (19:41)
[2024-06-18 19:54] VITALS: BP 137/80; PULSE 92; RESP 23; TEMP 36.1; O2SAT 93
== END 2024-06-18 20:08 | disposition short-term general hospital (02) ==
PROVIDERS: Emergency Provider Emergency Medicine; PCP Family Medicine; Referring Provider Emergency Medicine; Visit Provider Emergency Medicine
DX: S01.81XA Laceration without foreign body of other part of head, initial encounter (principal); I48.91 Unspecified atrial fibrillation; I62.9 Nontraumatic intracranial hemorrhage, unspecified; E78.00 Pure hypercholesterolemia, unspecified; N18.9 Chronic kidney disease, unspecified; R41.82 Altered mental status, unspecified; I25.10 Atherosclerotic heart disease of native coronary artery without angina pectoris; Z79.01 Long term (current) use of anticoagulants; Z99.2 Dependence on renal dialysis; W05.0XXA Fall from non-moving wheelchair, initial encounter; I12.9 Hypertensive chronic kidney disease with stage 1 through stage 4 chronic kidney disease, or unspecified chronic kidney disease; Z79.899 Other long term (current) drug therapy
CPT/HCPCS: 13131; 70450; 71045; 72125; 72170; 80048; 85025; 85610; 85730; 99285; A4216; C9159; J2405

== ENCOUNTER → 2024-06-18 | Outpatient (REF) | payer MEDICARE, SELFPAY ==
[2024-06-18 16:24] LABS: Bacteria 0 SEEN /hpf (None Seen); Mucous, Urine 0 SEEN /hpf (<or=2+); Red Blood Cells-Urine 0 SEEN /hpf (0-5); Squamous Epithelial Cells - UA 0 SEEN /hpf (5-10)
[2024-06-18 17:33] LABS: Color, Urine Yellow (Yellow); Glucose, Dipstick Normal (Normal); Ketone-Dipstick Negative (Negative); Leukocyte Esterase-Dipstick 500 /ul (Negative); Nitrite-Dipstick Negative (Negative); Occult Blood-Urine 150 /ul (Negative); Protein-Dipstick 100 mg/dl (Negative); Specific Gravity, Urine 1.015 (1.002-1.030); Urine Bilirubin Dipstick Negative (Negative); Urine Clarity Turbid (Clear); Urine Urobilinogen Normal (Normal)
[2024-06-18 18:35] LABS: White Blood Cells >100 SEEN /hpf (0-5)
== END ==
LOC: OLS.SW 16:21
PROVIDERS: PCP Family Medicine; Visit Provider Family Medicine
DX: N39.0 Urinary tract infection, site not specified (principal)
CPT/HCPCS: 81001; 87086; 87088; 87186

== ENCOUNTER 2024-07-16 02:59 | Inpatient (IN) | payer MEDICARE, MEDICAID, SELFPAY ==
[2024-07-16] VITALS (8 sets, daily range): BP systolic 134–171; BP diastolic 86–113; PULSE 98–115; RESP 16–19; TEMP 36.6–37.4; O2SAT 93–97; BMI 32.1; BMI 29.5
--- NOTE | 2024-07-16 03:08 | EDS_ITS ---
HPI History of Present Illness Chief Complaint: Fall Informant: EMS and SNF Narrative Narrative: Patient is a 69-year-old female with previous history of kidney disease requiring dialysis which was reportedly stopped roughly 1 month ago. She also has history of paroxysmal atrial fibrillation and roughly 1 month ago had a subdural and subarachnoid hemorrhage for which she was transferred to [facility] and had her anticoagulation stopped. Nursing staff reports when they came on shift tonight at 6 PM the patient seemed altered/confused. However they were not given report of this in signout and stated they had not been at work for the past week so they are unsure if this was new or had been persistent over the past days they were off. However sometime between midnight and 2 in the morning the patient had an unwitnessed fall and when she was found with her persistent confusion there was concern for repeat brain bleed or potential infection and therefore she was sent to the ER for evaluation. Upon arrival to the ER the patient awakes to voice and is protecting her airway and moving all extremities but cannot follow commands and cannot offer any further history. [facility] Medical History (Updated 07/16/24 @ 06:[address] Eloy Yost, DO) PAF (paroxysmal atrial fibrillation) ESRD on dialysis Traumatic subarachnoid hemorrhage without loss of consciousness, subsequent encounter GERD (gastroesophageal reflux disease) Osteoarthritis Hyperlipidemia History of ESBL E. coli infection Post-menopausal CAD (coronary artery disease) Cerebral palsy High cholesterol Hypertension Home Medications ?Medication ?Instructions ?Recorded ?Last Taken ?Type clonidine HCl 0.3 mg tablet 0.3 mg PO Q8H BP 07/25/23 Unknown History ergocalciferol (vitamin D2) 1,250 50,000 unit PO QWEEK supplement 07/25/23 Unknown History mcg (50,000 unit) capsule (Vitamin D2) metoprolol tartrate 100 mg tablet 100 mg PO Q12H BP 07/25/23 Unknown History spironolactone 25 mg tablet 25 mg PO DAILY DIURESIS 07/25/23 Unknown History pantoprazole 40 mg tablet,delayed 40 mg PO DAILY #60 tabs 12/03/23 Unknown Rx release (Protonix) sucralfate 1 gram tablet 1 g PO BID 12/17/23 Unknown History atorvastatin 40 mg tablet 40 mg PO DAILY 07/16/24 Unknown History buspirone 5 mg tablet 5 mg PO DAILY 07/16/24 Unknown History fenofibrate micronized 67 mg 67 mg PO DAILY 07/16/24 Unknown History capsule magnesium oxide 200 mg PO BID 07/16/24 Unknown History melatonin 3 mg capsule 3 mg PO QHS 07/16/24 Unknown History nifedipine 90 mg tablet,extended 90 mg PO DAILY 07/16/24 Unknown History release nitroglycerin 0.4 mg sublingual 0.4 mg sublingual Q5M PRN chest 07/16/24 Unknown History tablet pain sertraline 100 mg tablet 100 mg PO DAILY 07/16/24 Unknown History sertraline 50 mg tablet 50 mg PO DAILY 07/16/24 Unknown History vit B comp no.9-gkret-U-biotin PO 07/16/24 Unknown History Allergy/AdvReac Type Severity Reaction Status Date / Time No Known Allergies Allergy Verified 07/16/24 03:07 Family History (Updated 07/16/24 @ 05:[address] Hawa Butler MD) Mother Heart disease Father Heart disease Surgical History (Updated 07/16/24 @ 05:[address] Hawa Butler MD) S/P endoscopy Social History (Updated 07/16/24 @ 05:[address] Hawa Butler MD) household members: none housing: longterm Smoking Status: Never smoker alcohol intake: never substance use type: does not use ROS ROS ED Review of Systems ROS Unobtainable: due to mental status EXAM Physical Exam Const Vital Signs: 07/16/24 03:01 07/16/24 03:33 07/16/24 05:00 Temperature 99.3 F H 98.5 F Temperature Source Oral Oral Pulse Rate 109 H 115 H Respiratory Rate 17 19 H Respiratory Effort Normal Non-Labored Respiratory Depth Normal Respiratory Pattern Normal Blood Pressure 171/98 H 134/95 H Blood Pressure Mean 122 108 Pulse Ox 93 97 Oxygen Delivery Method Room Air Room Air Room Air 07/16/24 05:23 Temperature 98.5 F Temperature Source Pulse Rate 106 H Respiratory Rate 19 H Respiratory Effort Respiratory Depth Respiratory Pattern Blood Pressure 134/95 H Blood Pressure Mean 108 Pulse Ox 97 Oxygen Delivery Method Positive well nourished, well developed and obese General Appearance ED: well developed; Negative for pallor Nutritional Appearance: obese HEENT Reports dry mucous membranes HEENT Narrative: Mucous membranes are dry and tacky No obvious tongue or cheek biting noted No tongue or lip swelling present No secondary findings in the posterior pharynx to suggest infection Mouth ED: Yes dry mucous membranes Mouth: dry mucous membranes Eyes PERRL and EOMs intact bilaterally General Eye ED: Negative for scleral icterus Neck supple Neck Narrative: No nuchal rigidity or meningeal signs No bony deformity or step-off of the cervical spine no midline tenderness to palpation Chest Wall Chest Narrative: Mild pain palpation of the left anterior lateral chest wall rib regions 2-5 without bony deformity or crepitance Resp normal respiratory effort and clear to auscultation bilaterally Resp Narrative: Breath sounds are diminished throughout but overall clear to auscultation without signs of respiratory distress Cardio regular rhythm Rate: tachycardic and other Other Details: Tachycardic rate with regular rhythm GI normal to inspection, nondistended, normoactive bowel sounds, non-tender, non- distended and no masses GI Narrative: No voluntary guarding or rigidity or pulsatile mass Auscultation: normoactive bowel sounds Palpation: soft Back/Spine Back/Spine Narrative: No bony deformity or step-off of the thoracic or lumbar spine no midline tenderness to palpation Extremity normal to inspection Extremity Narrative: Pelvis is stable there is no shortening or external rotation of either lower extremity No obvious signs of trauma to bilateral legs or arms Neuro Neuro Narrative: GCS of 13 patient will open eyes to voice and she is unaware of the date and time Patient has global aphasia which gives her an NIH stroke scale score of 2 otherwise there is no obvious focal motor weakness or facial droop or gaze deviation or dysarthria Psych Psych Narrative: Patient has a flat affect Skin no rashes or lesions noted and no wounds General Skin Exam: Negative for jaundice or pallor MDM MDM MDM Narrative Medical decision making narrative: Patient arrived to the ER hypertensive and tachycardic. Her mental status was slightly depressed but she would awake to voice and she is protecting her airway and there is no need for emergent stabilization. She has no obvious focal neurologic deficit other than global aphasia for which she received in a stroke scale score of 2. With her report of fall and her recent history of brain bleed there is concern for an acute on chronic subdural or epidural hemorrhage and t herefore a noncontrast CT was obtained of the head. With concern for compression fracture of the cervical spine from the fall the CT was continued into the neck region. As there is also potential for rib fracture pneumothorax or pelvic fracture x-rays were ordered as well. CT of the head revealed chronic findings from her previous bleed without acute skull fracture or brain bleed. CT of the cervical spine revealed no compression fracture or spondylolisthesis and x-rays revealed no underlying lung pathology or pelvic injury. The patient is creatinine is 3 and therefore this would not allow for a CTA. I did discuss the case with neurology at [facility] Dr. Glaser. She recommends that as there is no signs of active bleeding that the patient receive a full-strength aspirin. Based on the chronic kidney disease and elevated creatinine she recommends an MRI and MRI of the head and neck to check for potential signs of acute stroke based on her global aphasia. There is no obvious metabolic findings such as acute infection of UTI or pneumonia or potential hypoglycemia or hepatic encephalopathy or elevated carbonmonoxide as a potential cause of of her change in mental status. The case was discussed with the hospitalist and informed of the consult with the neurologist and this time she will admit the patient to continue to monitor her mental status and obtain the further tests recommended by neurology History & Record Review Discussion w/independent historian: Other (long-term) Lab Data Attestation: I reviewed the patient's lab results. Labs: Laboratory Results - last 24 hr 07/16/24 07/16/24 03:10 04:47 WBC 12.0 H RBC 3.39 L Hgb 10.4 L Hct 32.0 L MCV 94.4 MCH 30.7 MCHC 32.5 RDW Std Deviation 48.1 H RDW Coeff of Rory 14.2 Plt Count 338 MPV 9.9 Immature Gran % (Auto) 0.800 Neut % (Auto) 84.8 H Lymph % (Auto) 11.0 L [place] % (Auto) 3.0 Eos % (Auto) 0.1 Baso % (Auto) 0.3 Absolute Neuts (auto) 10.2 H Absolute Lymphs (auto) 1.32 Nucleated RBC % 0 PT 15.6 H INR 1.2 APTT 33.1 Sodium 144 Potassium 3.2 L Chloride 114 H Carbon Dioxide 23.0 Anion Gap 7 BUN 41 H Creatinine 3.06 H Estim Creat Clear Calc 15.87 Est GFR (MDRD) Af Amer 19 L Est GFR (MDRD) Non-Af 16 L BUN/Creatinine Ratio 13.4 Glucose 150 H Calcium 9.6 Magnesium 1.9 Total Bilirubin 0.40 Direct Bilirubin 0.13 AST 19 ALT 34 Alkaline Phosphatase 114 Ammonia 25.0 Total Protein 7.3 Albumin 3.8 Globulin 3.5 TSH 1.330 Urine Color Yellow Urine Clarity Clear Urine pH 6.0 Ur Specific [place] 1.015 Urine Protein 100 H Urine Glucose (UA) Normal Urine Ketones Negative Urine Occult Blood 25 H Urine Nitrite Negative Urine Bilirubin Negative Urine Urobilinogen Normal Ur Leukocyte Esterase Negative Urine RBC 0 SEEN Urine WBC 0 SEEN Ur Squamous Epith Cells 0 SEEN Urine Bacteria 0 SEEN Urine Mucus 0 SEEN Urine Opiates Screen NEGATIVE Urine Methadone Screen NEGATIVE Ur Barbiturates Screen NEGATIVE Ur Phencyclidine Scrn NEGATIVE Ur Amphetamines Screen NEGATIVE MDMA (Ecstasy) Screen NEGATIVE U Benzodiazepines Scrn NEGATIVE Urine Cocaine Screen NEGATIVE U Cannabinoids Screen NEGATIVE Ur Drug Screen Comment ABG Data ABG results: ABG 07/16/24 04:45 Specimen Type ARELI Sample Site Not entered VBG pH 7.41 VBG pO2 99 H VBG HCO3 20 L VBG Total CO2 20 L VBG O2 Sat (Calc) 98 H VBG Base Excess -5 L POC Mix VBG pCO2 Pt Tmp 30.5 L O2 Delivery Device Not entered Radiography Diagnostic Testing: Clinical Impression(s) from Imaging Studies Brain CT 07/16/24 03:23 IMPRESSION: 1. Decreased size and density of the previous extra-axial hemorrhage overlying the right parietal lobe, now measuring up to 6 mm in thickness. Resolution of the previous subarachnoid hemorrhage. 2. Low-density subdural fluid collection overlying the right cerebral hemisphere measuring up to 5 mm thickness consistent with a small chronic subdural hematoma or hygroma. 3. No acute intracranial blood products. Electronically Signed: Stevo Cowart MD at 4:10 EST Reading Location ID and State: [address] [place] [address] Tel , Service support , Cervical Spine CT 07/16/24 03:23 IMPRESSION: 1. No acute injuries identified involving the cervical spine. 2. Degenerative changes. Electronically Signed: Stevo Cowart MD at 4:29 EST Reading Location ID and State: [facility] [place] Tel , Service support , Chest X-Ray 07/16/24 03:23 IMPRESSION: No acute findings in the chest. Electronically Signed: Stevo Cowart MD at 4:12 EST , Pelvis X-Ray 07/16/24 03:48 IMPRESSION: No acute findings in the pelvis. Electronically Signed: Stevo Cowart MD at 4:32 EST , 1 view chest x-ray as interpreted by the emergency medicine physician reveals no acute infiltrate pneumothorax or rib fracture 1 view pelvis x-ray as interpreted by the emergency medicine physician reveals no acute fracture or dislocation Management Discussion w/another healthcare provider: Hospitalist and Spin Tank Tender Discharge Plan Dx/Rx/DC Orders Clinical Impression: Altered mental status, Aphasia, CKD (chronic kidney disease), Paroxysmal atrial fibrillation, Hypertension, Hyperlipidemia Disposition Disposition: Acute Care Hospital [facility] Discharge Date/Time: 07/16/24 06:08
--- NOTE | 2024-07-16 03:23 | CT_ITS ---
EXAM: CT HEAD WITHOUT INTRAVENOUS CONTRAST CLINICAL INDICATION: fall TECHNIQUE: Multiple axial images were obtained of the head without intravenous contrast. This CT exam was performed using one or more of the following dose reduction techniques: automated exposure control, adjustment of the mA and/or kV according to patient size, and/or use of iterative reconstruction technique. RADIATION DOSE: CTDIvol = 44.99 mGy, DLP = 745.49 mGy-cm COMPARISON: Head CT 06/18/2024 FINDINGS: BRAIN AND EXTRA-AXIAL SPACES: Decreased size and density of the previous extra-axial hemorrhage overlying the right parietal lobe, now measuring up to 6 mm in thickness. Resolution of the previous subarachnoid hemorrhage. Low-density subdural fluid collection overlying the right cerebral hemisphere measuring up to 5 mm thickness. No evidence of acute infarct. No intracranial mass or mass effect. There is preservation of the padgett/white matter interface. Posterior fossa structures are unremarkable. Basal cisterns are patent. BONES/JOINTS: Unremarkable. No discrete lytic or blastic abnormalities. SINUSES: Unremarkable as visualized. Clear. MASTOID AIR CELLS: Unremarkable. Clear. ORBITS: Visualized globes, extraocular muscles, optic nerves and retrobulbar fat appear unremarkable. CT/Brain/Head without Contrast IMPRESSION: 1. Decreased size and density of the previous extra-axial hemorrhage overlying the right parietal lobe, now measuring up to 6 mm in thickness. Resolution of the previous subarachnoid hemorrhage. 2. Low-density subdural fluid collection overlying the right cerebral hemisphere measuring up to 5 mm thickness consistent with a small chronic subdural hematoma or hygroma. 3. No acute intracranial blood products. Electronically Signed: Stevo Cowart MD at 4:10 EST ,
--- NOTE | 2024-07-16 03:23 | RAD_ITS ---
EXAM: XR CHEST, 1 VIEW CLINICAL INDICATION: fall TECHNIQUE: Frontal view of the chest. COMPARISON: Single view chest 06/18/2024 FINDINGS: LUNGS AND PLEURAL SPACES: Unremarkable. No consolidation or edema. No pneumothorax. No effusion. HEART: Mild enlargement of the cardiac silhouette. MEDIASTINUM: Central airways and mediastinal contour are unremarkable. BONES/JOINTS: Unremarkable. No acute fracture. SOFT TISSUES: Unremarkable. RAD/Chest 1 View (Portable) IMPRESSION: No acute findings in the chest. Electronically Signed: Stevo Cowart MD at 4:12 EST ,
--- NOTE | 2024-07-16 03:23 | CT_ITS ---
EXAM: CT CERVICAL SPINE WITHOUT INTRAVENOUS CONTRAST CLINICAL INDICATION: fall TECHNIQUE: Helically acquired images were obtained of the cervical spine without intravenous contrast. 2D reformatted images were reviewed. This CT exam was performed using one or more of the following dose reduction techniques: automated exposure control, adjustment of the mA and/or kV according to patient size, and/or use of iterative reconstruction technique. RADIATION DOSE: CTDIvol = 25.74 mGy, DLP = 486.89 mGy-cm COMPARISON: Cervical spine CT 06/18/2024 FINDINGS: VERTEBRAE: Prominent, bridging anterior osteophytes. No fracture. No traumatic subluxation. No discrete lytic or blastic abnormality. Normal alignment. Normal craniocervical junction and cervicothoracic junction. DISCS/SPINAL CANAL/NEURAL FORAMINA: Degenerative changes of the intervertebral discs. No critical stenosis. SOFT TISSUES: Unremarkable. No prevertebral soft tissue swelling. LYMPH NODES: Unremarkable. No cervical adenopathy. LUNG APICES: Unremarkable as visualized. Clear. CT/Spine Cervical without Contras IMPRESSION: 1. No acute injuries identified involving the cervical spine. 2. Degenerative changes. Electronically Signed: Stevo Cowart MD at 4:29 EST ,
[2024-07-16 03:39] LABS: Absolute Lymphocyte Count 1.32 X10^3/uL (0.83-4.51); Absolute Neutrophil Count 10.2 X10^3/uL (2.0-7.7); Basophil# 0.04 X10^3/uL; Basophil% 0.3 % (0-1); Eosinophil# 0.01 X10^3/uL; Eosinophils% 0.1 % (0-5); Hemoglobin 10.4 g/dL (12.0-15.0); Lymphocyte # 1.32 X10^3/ul (0.83-4.51); Mean Corp Hgb Conc 32.5 g/dL (32-36); Mean Corpuscular Hgb 30.7 pg (27.0-32.0); Mean Corpuscular Volume 94.4 fL (81-99); Mean Platelet Vol. 9.9 fl (6.2-12.0); Monocyte# 0.36 X10^3/uL; NRBC Flagged by Analyzer 0 % (0-5); Neutrophil # 10.17 X10^3/uL (2.7-7.7); Neutrophil % 84.8 % (47-70); Platelet Count 338 K/mm3 (150-450); RBC Distribution Width CV 14.2 % (11.6-14.6); RBC Distribution Width SD 48.1 fl (35.1-43.9); Red Blood Count 3.39 M/mm3 (4.2-5.4)
--- NOTE | 2024-07-16 03:48 | RAD_ITS ---
EXAM: XR PELVIS, 1 OR 2 VIEWS CLINICAL INDICATION: fall TECHNIQUE: Frontal view of the pelvis. COMPARISON: Single view pelvis from 06/18/2024 FINDINGS: BONES/JOINTS: Acetabular spurring. No displaced fracture. No destructive or sclerotic lesions. Note that overlapping bowel shadows may however obscure fine detail. Sacroiliac joints are unremarkable. No widening of the pubic symphysis. The articular structures are unremarkable. SOFT TISSUES: Unremarkable. No soft tissue swelling or gas. RAD/Pelvis 1 or 2 Views IMPRESSION: No acute findings in the pelvis. Electronically Signed: Stevo Cowart MD at 4:32 EST ,
[2024-07-16 03:56] LABS: International Normalized Ratio 1.2; Prothrombin Time (Protime)PT. 15.6 SECONDS (11.7-14.9)
[2024-07-16 03:57] LABS: Partial Thromboplast Time 33.1 Seconds (24.1-36.2)
[2024-07-16 04:03] LABS: AST(SGOT) 19 U/L (15-37); Alanine Aminotransfer ALT/SGPT 34 U/L (13-56); Albumin, Serum 3.8 g/dL (3.2-5.0); Alkaline Phosphatase 114 U/L (45-117); Anion Gap 7 (5-15); BUN 41 mg/dL (7-18); BUN/Creat Ratio 13.4 RATIO (10-20); Bilirubin, Direct 0.13 mg/dL (0.00-0.30); Calcium,Total 9.6 mg/dL (8.5-10.1); Chloride 114 mmol/L (98-107); Creatinine, Serum 3.06 mg/dL (0.55-1.02); EST Glomerular Filtration Rate 16 mL/min (>60); Est Glom Filt Rate - Afr Amer 19 mL/min (>60); Estimated Creatinine Clearance 15.87 ml/min; Globulin 3.5 g/dL (2.2-4.2); Glucose 150 mg/dL (74-106); Potassium 3.2 mmol/L (3.5-5.1); Protein, Total 7.3 g/dL (6.4-8.2); Sodium Level 144 mmol/L (136-145)
--- NOTE | 2024-07-16 04:04 | ED.RN ---
This nurse [facility] to get report on pt d/t them not calling staff. Nurse stating pt has been confused since she got on shift at 6pm. Per nurse pt is usually supervision assist and A&Ox3. Per nurse pt was her normal self last week and it was not communicated to nightshift if pt was confused or not during dayshift. Pt was found sitting on the floor by staff and unable to state what was happening or going on. Per nurse pt had been seen 30min prior to event and seemed her normal self.
--- NOTE | 2024-07-16 04:41 | EKG12_ITS ---
Test Reason : FALL Blood Pressure : */* mmHG Vent. Rate : 117 BPM Atrial Rate : 117 BPM P-R Int : 166 ms QRS Dur : 88 ms QT Int : 354 ms P-R-T Axes : 47 -2 81 degrees QTcB Int : 493 ms Sinus tachycardia Nonspecific ST and T wave abnormality Abnormal ECG Confirmed by MINH LOUIS, JOSI ([id number]), food expeditor ORIN JACOBO ([id number]) on 07/21/2024 7:46:00 AM Referred By: Confirmed By: JOSI WILKINSON MD
[2024-07-16 04:51] LABS: Blood Gas Specimen Type VEN; O2 Delivery Device Not entered; SITE Not entered; VBG BASE EXCESS -5 mmol/L (-1.0-3.5); VBG Bicarbonate 20 mmol/L (22-26); VBG PO2 99 mmHg (25-40); VBG SO2 98 % (50-70); VBG TCO2 20 mmol/L (23-33); VBG pCO2 30.5 mmHg (41-51); VBG pH 7.41 (7.32-7.42)
[2024-07-16 04:52] LABS: Bacteria 0 SEEN /hpf (None Seen); Mucous, Urine 0 SEEN /hpf (<or=2+); Red Blood Cells-Urine 0 SEEN /hpf (0-5); Squamous Epithelial Cells - UA 0 SEEN /hpf (5-10); White Blood Cells 0 SEEN /hpf (0-5)
[2024-07-16 04:53] LABS: Color, Urine Yellow (Yellow); Glucose, Dipstick Normal (Normal); Ketone-Dipstick Negative (Negative); Leukocyte Esterase-Dipstick Negative /ul (Negative); Nitrite-Dipstick Negative (Negative); Occult Blood-Urine 25 /ul (Negative); Protein-Dipstick 100 mg/dl (Negative); Specific Gravity, Urine 1.015 (1.002-1.030); Urine Bilirubin Dipstick Negative (Negative); Urine Clarity Clear (Clear); Urine Urobilinogen Normal (Normal)
--- NOTE | 2024-07-16 04:54 | HP.PCM.HOS_ITS ---
HPI - General General Date of Admission: 07/16/24 Date of Service: 07/16/24 Chief Complaint: Fall, global aphasia HPI Narrative The patient is a 69 y/o F w/ PMHx: CKD stage IV w/ reported recent LUKE on CKD event with prior usage of HD with reportedly last HD session potentially ~ 1 month ago prior MWF following w/ Dr. Simmons, Chronic anemia/AOCD, GERD w/ Hx GI bleed, HTN, HLD, Cerebral palsy, PAF previously on eliquis, Nonobstructive CAD, GERD, Hx Traumatic acute brain bleed s/p fall acutely 4 weeks prior to current presentation who presents to the [facility] ED on 07/16/24 with history of [facility] recent discharge following mechanical fall found on the floor at ~ 1:35 am with reported decreased talkativeness per RN familiar with her with intracranial bleed with care at [facility] with confusion including to self, place and normal questions she would be familiar prompting ED referral. The SNF RN reports having potentially seen the patient driving after her head bleed. notes that she has recovered well from her recent fall with ICH and has been function and oriented x 3. In the ED the patient is extremely agitated, moving frequently, will answer some questions but fails to answer others with answers primarily short. Occasionally does not follow exam requests but if prompted and extremities lifted will proceed to follow more of the request. Workup in the ED included T99.3, heart 109, BP 171/98, respiratory rate 17, 93% on room air, CBC with WC 12, he 110.4, MCV 94.4, platelet 338 with left shift, unremarkable coags, CMP with potassium 3.2, chloride 114, BUN/creatinine 41/3.06, glucose 150 otherwise hepatic profile not marked appearing, ammonia 25, TSH/1.330, VBG/COVID/influenza/RSV PCR/urinalysis pending upon request evaluation of patient, CT of the brain with decreased size and density the previous extra-axial hemorrhage overlying the right parietal lobe now measuring up to 6 mm in thickness with resolution of the previous subarachnoid hemorrhage, low-density subdural fluid collection overlying the right cerebral hemisphere measuring up to 5 mm thickness consistent with a small chronic subdural hematoma or hygroma with no acute intracranial blood products, CT cervical spine with no acute injuries with degenerative changes, chest x-ray with no acute cardiopulmonary findings, plain film of the pelvis unremarkable, EKG with ST with nonspecific changes with no acute evidence of ischemia, urinalysis pending per ED. in the ED patient ministered 500 mL normal saline. ED discussed case with [facility] neurology who recommended given no active bleeding FS ASA following by baby ASA and follow-up MRI imaging. [facility] Medical History (Updated 07/16/24 @ 04:[address] Hawa Butler MD) PAF (paroxysmal atrial fibrillation) ESRD on dialysis Traumatic subarachnoid hemorrhage without loss of consciousness, subsequent encounter GERD (gastroesophageal reflux disease) Osteoarthritis Hyperlipidemia History of ESBL E. coli infection Post-menopausal CAD (coronary artery disease) Cerebral palsy High cholesterol Hypertension Home Medications ?Medication ?Instructions ?Recorded ?Last Taken ?Type clonidine HCl 0.3 mg tablet 0.3 mg PO Q8H BP 07/25/23 Unknown History ergocalciferol (vitamin D2) 1,250 50,000 unit PO QWEEK supplement 07/25/23 Unknown History mcg (50,000 unit) capsule (Vitamin D2) metoprolol tartrate 100 mg tablet 100 mg PO Q12H BP 07/25/23 Unknown History spironolactone 25 mg tablet 25 mg PO DAILY DIURESIS 07/25/23 Unknown History pantoprazole 40 mg tablet,delayed 40 mg PO DAILY #60 tabs 12/03/23 Unknown Rx release (Protonix) sucralfate 1 gram tablet 1 g PO BID 12/17/23 Unknown History atorvastatin 40 mg tablet 40 mg PO DAILY 07/16/24 Unknown History buspirone 5 mg tablet 5 mg PO DAILY 07/16/24 Unknown History fenofibrate micronized 67 mg 67 mg PO DAILY 07/16/24 Unknown History capsule magnesium oxide 200 mg PO BID 07/16/24 Unknown History melatonin 3 mg capsule 3 mg PO QHS 07/16/24 Unknown History nifedipine 90 mg tablet,extended 90 mg PO DAILY 07/16/24 Unknown History release nitroglycerin 0.4 mg sublingual 0.4 mg sublingual Q5M PRN chest 07/16/24 Unknown History tablet pain sertraline 100 mg tablet 100 mg PO DAILY 07/16/24 Unknown History sertraline 50 mg tablet 50 mg PO DAILY 07/16/24 Unknown History vit B comp no.[id number]-biotin PO 07/16/24 Unknown History Allergy/AdvReac Type Severity Reaction Status Date / Time No Known Allergies Allergy Verified 07/16/24 03:07 Family History (Updated 07/16/24 @ 05:[address] Hawa Butler MD) Mother Heart disease Father Heart disease Surgical History (Updated 07/16/24 @ 05:[address] Hawa Butler MD) S/P endoscopy Social History (Updated 07/16/24 @ 05:[address] Hawa Butler MD) household members: none [facility] Smoking Status: Never smoker alcohol intake: never substance use type: does not use ROS Review of Systems ROS Unobtainable: due to mental status Vital Signs Vital Signs Vital Signs: 07/16/24 03:01 07/16/24 03:33 Temperature 99.3 F H Temperature Source Oral Pulse Rate 109 H Respiratory Rate 17 Respiratory Effort Normal Non-Labored Respiratory Depth Normal Respiratory Pattern Normal Blood Pressure 171/98 H Blood Pressure Mean 122 Pulse Ox 93 Oxygen Delivery Method Room Air Room Air Weight Weight: 170 lb 6.677 oz Body Mass Index (BMI) 32.1 Physical Exam Narrative Physical Examination: General: Awake, alert, oriented to self only, difficult because intermittently answering questions but very short responses and then at other times would not answer questions at all, appears confused and mildly agitated moving in the bed, will follow some commands but not others. Skin: Normal color, normal turgor, no icterus, no cyanosis except occasional ecchymoses, abrasion. HEENT: AT/NC, EOMI, PERRLA, mildly dry MM, no carotid bruits or JVD noted. Lungs: Mild diminished, greater bases, appropriate effort, no evidence of any distress, no rales, ronchi or wheezing. Heart: Mildly tachycardic with regular rhythm; no gallop, rub audible. Abdomen: Soft, obese, NTTP, ND, mildly hyperactive BS, no appreciated HSM. Extremities: No cyanosis, no clubbing, no marked peripheral edema. Neurological: Patient awake, alert, oriented as noted, cognitive function not baseline intact, pupils equally reactive to light and accommodation, cranial nerves grossly appear normal but difficult exam is not following all requests, moving all extremities, difficult to assess for deficits, unable to perform finger-nose or uaiz-cw-upab, equivocal Babinski, unclear if sensation is equal as patient not giving appropriate responses back, significant evidence of aphasia. Psychiatric: Affect appears mildly agitated, no acute evidence of depressive or anxiety feelings but does have underlying history. Results Lab / Micro Data 07/16/24 03:10 07/16/24 03:10 Labs: Laboratory Results - last 24 hr 07/16/24 03:10: WBC 12.0 H, RBC 3.39 L, Hgb 10.4 L, Hct 32.0 L, MCV 94.4, MCH 30.7, MCHC 32.5, RDW Std Deviation 48.1 H, RDW Coeff of Rory 14.2, Plt Count 338, MPV 9.9, Immature Gran % (Auto) 0.800, Neut % (Auto) 84.8 H, Lymph % (Auto) 11.0 L, [place] % (Auto) 3.0, Eos % (Auto) 0.1, Baso % (Auto) 0.3, Absolute Neuts (auto) 10.2 H, Absolute Lymphs (auto) 1.32, Nucleated RBC % 0, PT 15.6 H, INR 1.2, APTT 33.1, Sodium 144, Potassium 3.2 L, Chloride 114 H, Carbon Dioxide 23.0, Anion Gap 7, BUN 41 H, Creatinine 3.06 H, Estim Creat Clear Calc 15.87, Est GFR (MDRD) Af Amer 19 L, Est GFR (MDRD) Non-Af 16 L, BUN/Creatinine Ratio 13.4, Glucose 150 H, Calcium 9.6, Total Bilirubin 0.40, Direct Bilirubin 0.13, AST 19, ALT 34, Alkaline Phosphatase 114, Ammonia 25.0, Total Protein 7.3, Albumin 3.8, Globulin 3.5, TSH 1.330 ABG Data ABG results: ABG 07/16/24 04:45 Specimen Type ARELI Sample Site Not entered VBG pH 7.41 VBG pO2 99 H VBG HCO3 20 L VBG Total CO2 20 L VBG O2 Sat (Calc) 98 H VBG Base Excess -5 L POC Mix VBG pCO2 Pt Tmp 30.5 L O2 Delivery Device Not entered Imaging Radiology Impression Brain CT 07/16/24 03:23 IMPRESSION: 1. Decreased size and density of the previous extra-axial hemorrhage overlying the right parietal lobe, now measuring up to 6 mm in thickness. Resolution of the previous subarachnoid hemorrhage. 2. Low-density subdural fluid collection overlying the right cerebral hemisphere measuring up to 5 mm thickness consistent with a small chronic subdural hematoma or hygroma. 3. No acute intracranial blood products. Electronically Signed: Stevo Cowart MD at 4:10 EST Reading Location ID and State: [facility] / [place] Tel , Service support , Cervical Spine CT 07/16/24 03:23 IMPRESSION: 1. No acute injuries identified involving the cervical spine. 2. Degenerative changes. Electronically Signed: Stevo Cowart MD at 4:29 EST Reading Location ID and State: [facility] / [place] Tel , Service support , Chest X-Ray 07/16/24 03:23 IMPRESSION: No acute findings in the chest. Electronically Signed: Stevo Cowart MD at 4:12 EST Reading Location ID and State: [facility] / [place] Tel , Service support , Pelvis X-Ray 07/16/24 03:48 IMPRESSION: No acute findings in the pelvis. Electronically Signed: Stevo Cowart MD at 4:32 EST Reading Location ID and State: [facility] / [place] Tel , Service support , Assessment & Plan Assessment/Plan (1) Aphasia: PLAN: Plan The patient is a 69 y/o F w/ PMHx: CKD stage IV w/ reported recent LUKE on CKD event with prior usage of HD with reportedly last HD session potentially ~ 1 month ago prior MWF following w/ Dr. Simmons, Chronic anemia/AOCD, GERD w/ Hx GI bleed, HTN, HLD, Cerebral palsy, PAF previously on eliquis, Nonobstructive CAD, GERD, Hx Traumatic acute brain bleed s/p fall acutely 4 weeks prior to current presentation who presents to the [facility] ED on 11/14/24 with [facility] of [facility] recent discharge following mechanical fall with intracranial bleed with care at [facility] with reported recurrent fall and upon evaluation noted be completely aphasic possibly from the beginning of the entire shift reportedly different from baseline prompting ED referral. #1. Mechanical fall with Acute encephalopathy w/ significant agitation, aphasia, global concerning for TIA/CVA complicated by recent mechanical fall approximately 1 month prior with intracranial bleed/TBI at that time: Will admit to PCU, will obtain MRI Brain, will obtain MRA brain and MRA neck with contrast per Neurology request, PT/OT/Speech/Nutrition evaluation per protocol. Will allow permissive HTN, discussed with [facility] Neurology and given their review of CT head and radiology read of no active bleed cleared FS ASA in the ED and continued baby ASA following, will continue home statin w/ AM FLP, fall precautions. Mag, FLP, HgbA1c requested. VBG unremarkable, urinalysis unremarkable. UDS will be requested. Will maintain on fall and aspiration precautions. Given recent intracranial bleed we will hold off on aspirin therapy. Neurology discussion regarding case with the ED with ED physician, awaiting formal evaluation follow-up. #2. Hyperglycemia without diabetic history: Admission glucose elevated 150, possibly stress response, hemoglobin A1c pending. #3. Hypokalemia: Admission K+ 3.2, magnesium level requested, supplementation given, repeat level in AM. #4. Cerebral palsy: Unclear exact extent but prior to recent mechanical fall and TBI with intracranial bleed reportedly had been well-functioning, PT/OT/case management consulted for discharge planning. #5. CKD stage V w/ noted ESRD previously on HD MWF: Patient with per previous records noted dialysis Saturday; however, clarified with SNF staff educator and she stopped dialysis ~ 1 month prior following with Dr. Simmons. Noted next follow-up with Dr. Simmons in September per facility paperwork. #6. Chronic normocytic anemia/AOCD: Admission hemoglobin 10.4, MCV 94.4, baseline previously has vacillated but just prior to this 06/26/2024 8.5, potentially falsely elevated as does appear mildly dry, will continue to trend CBC. #7. Nonobstructive CAD: Cardiac catheterization noted 07/26/2023 with tubular 30% proximal lesion in the RCA and tubular 20% mid lesion in the LAD, aspirin currently held given recent TBI with intracranial bleed but discussed with [facility] Neurology and given their review of CT head and radiology read of no active bleed cleared FS ASA in the ED and continued baby ASA following, temporarily holding hypertensive regimen as noted above, not on statin but on fenofibrate. #8. PAF: Previously been on Eliquis unfortunately with recent fall and traumatic brain injury with intracranial bleed this was discontinued, temporally holding home metoprolol regimen for permissive hypertension, add back once appropriate. Hypertension: Given current presentation and uncertain etiology for aphasia pending MRI of the brain will hold hypertensive regimen and maintain permissive hypertension in the interim. #9. Hyperlipidemia: We will continue patient home statin and fenofibrate regimen, FLP in AM. #10. Anxiety and depression: We will continue patient home sertraline and BuSpar regimen if oral intake deemed safe. #11. GERD with history of GI bleed: We will continue patient on PPI and sucralfate if oral intake deemed safe. #12. DVT prophylaxis: SCDs. #13. CODE STATUS: Full Code per facility paperwork. Charges/Coding Visit Charges Inpatient E&M: 63766 Init Hosp L3
[2024-07-16] MEDS: 0.9% Normal Saline (500mL Bag) 500 ML 999 ML IV (05:03)
[2024-07-16] MEDS: Aspirin 325 MG Tablet PO (05:28)
[2024-07-16 05:53] LABS: Magnesium 1.9 mg/dL (1.6-2.6)
[2024-07-16 06:03] LABS: Amphetamine Urine NEGATIVE (<1000 ng/mL); Barbiturate Urine NEGATIVE (< 200 ng/mL); Benzodiazepine Urine NEGATIVE (< 200 ng/mL); Cocaine Urine NEGATIVE (< 300 ng/mL); Ecstacy Urine NEGATIVE (< 500 ng/mL); Methadone Urine NEGATIVE (< 300 ng/mL); Opiates Urine NEGATIVE (< 300 ng/mL); PCP Urine NEGATIVE (< 25 ng/mL); THC Urine NEGATIVE (< 50 ng/mL); Vista UDS pH Range 6
--- NOTE | 2024-07-16 06:15 | MRI_ITS ---
EXAM: MR HEAD WITHOUT INTRAVENOUS CONTRAST CLINICAL INDICATION: CVA TECHNIQUE: Multiplanar and multisequence MR images of the brain were obtained without intravenous contrast. COMPARISON: CT head without contrast 07/16/2024. FINDINGS: BRAIN AND EXTRA-AXIAL SPACES: Subacute subdural hematoma right cerebral hemisphere with mild mass effect or midline shift. No suspicious acute or subacute ischemic infarcts. Periventricular white matter T2 FLAIR hyperintensity foci in both cerebral hemispheres are chronic white matter ischemic changes. No communicating or noncommunicating hydrocephalus. Posterior fossa structures are unremarkable. Basal cisterns are patent. SELLA: Unremarkable. Normal sella turcica, pituitary gland, infundibular stalk, optic chiasm and hypothalamus. AUDITORY SYSTEM: Unremarkable. The internal auditory canals are patent. BONES/JOINTS: Unremarkable. No discrete lytic or blastic abnormalities. SINUSES: Unremarkable as visualized. Clear. MASTOID AIR CELLS: Unremarkable as visualized. Clear. ORBITS: Unremarkable as visualized. Both globes, extraocular muscles, optic nerves and retrobulbar fat appear unremarkable. VASCULATURE: Unremarkable as visualized. Normal flow voids in the major intracranial circulation. MRI/Brain without Contrast IMPRESSION: 1. Subacute subdural hematoma overlying the right cerebral hemisphere with mild mass effect but no midline shift. 2. No MRI evidence of acute or subacute ischemic infarct. 3. Chronic periventricular white matter ischemic changes in both cerebral hemispheres. 4. No significant interval change when compared to CT head scan of 07/16/2024. Electronically Signed: Brandin Angel MD at 11:22 EST ,
--- NOTE | 2024-07-16 06:15 | ECHOD_ITS ---
Reason For Study: TIA/STROKE Procedure This was a 2D Doppler, Color Flow transthoracic echocardiogram. The study was technically difficult. Patient confused and uncooperative. Exam performed portable in patient room. Left Ventricle Normal LV size. The estimated ejection fraction is 65 %. No evidence for diastolic dysfunction. No regional wall motion abnormalities noted. Right Ventricle Normal RV size. Normal systolic function. Atria The left and right atria are normal. No doppler evidence for ASD. Bubble contrast study negative for right to left interatrial shunt. Mitral Valve There is no mitral valve stenosis. Trivial mitral valve insufficiency. Tricuspid Valve There is no tricuspid stenosis. Trivial tricuspid valve insufficiency. Unable to estimate RV systolic pressure due to insufficient tricuspid regurgitant envelope. Aortic Valve Trisinus/trileaflet aortic valve. There is no aortic stenosis. No aortic valve insufficiency. Pulmonic Valve There is no pulmonic valvular stenosis. No pulmonic valve insufficiency. Great Vessels Normal aortic root. Pericardium/Pleural No pericardial effusion. Medication Performed a rapid injection of agitated mix of 9 cc saline and 1cc air to assess for atrial septal defect. MMode/2D Measurements & Calculations LVIDd: 4.6 cm IVSd: 1.3 cm Ao root diam: 3.4 cm LVIDs: 3.5 cm LVPWd: 1.8 cm RVDd: 2.7 cm FS: 24.5 % LAV(MOD-bp): 42.6 ml LVAd ap4: 26.5 cm2 SV(MOD-sp4): 47.7 ml LAV(MOD-bp) Indexed: 24.2 ml/m2 LVLd ap4: 7.6 cm SI(MOD-sp4): 27.1 ml/m2 LAV(MOD-sp2): 49.2 ml EDV(MOD-sp4): 76.7 ml LAV(MOD-sp4): 38.8 ml EDV(sp4-el): 78.1 ml LVAs ap4: 14.3 cm2 LVLs ap4: 5.9 cm ESV(MOD-sp4): 29.0 ml ESV(sp4-el): 29.2 ml EF(MOD-sp4): 62.2 % EF(sp4-el): 62.6 % SV(sp4-el): 48.9 ml LA A4 area: 14.8 cm2 RA A4 area: 9.0 cm2 Time Measurements MV dec time: 0.06 sec Doppler Measurements & Calculations MV E max quique: 115.2 cm/sec Lat Peak E' Quique: 9.2 cm/sec Med Peak E' Quique: 6.2 cm/sec MV A max quique: 162.0 cm/sec E/E' lat: 12.6 E/E' med: 18.6 MV E/A: 0.71 Ao V2 max: 157.3 cm/sec LV V1 max: 132.0 cm/sec MV dec slope: 2028 cm/sec2 Ao max P.9 mmHg LV V1 max P.0 mmHg Ao V2 mean: 105.4 cm/sec LV V1 mean P.6 mmHg Ao mean P.2 mmHg LV V1 mean: 87.7 cm/sec Ao V2 VTI: 29.0 cm LV V1 VTI: 23.7 cm AV (velocity ratio): 0.82 TR max quique: 293.0 cm/sec TR max P.3 mmHg ECHO/Echo Complete Interpretation Summary The estimated ejection fraction is 65 %. No evidence for diastolic dysfunction. Trivial mitral valve insufficiency. Ordering Physician: Hawa Butler Referring Physician: RAYMOND AMARAL Performed By: Ivelisse Wade and Student
[2024-07-16] MEDS: Potassium Chloride Oral Tablet 20 MEQ 40 MEQ PO (06:53)
[2024-07-16] MEDS: LORazepam 1 MG Tablet PO (09:14)
[2024-07-16] MEDS: Pantoprazole Sodium 40 MG Tablet PO (12:44)
[2024-07-16] MEDS: Sucralfate 1 GM Tablet PO ×2 (12:44→16:39)
[2024-07-16] MEDS: busPIRone 5 MG Tablet PO (12:44)
[2024-07-16] MEDS: Fenofibrate 48 MG Tablet PO (12:45)
[2024-07-16] MEDS: Aspirin 81 MG TAB.CHEW PO (12:45)
[2024-07-16] MEDS: Sertraline 50 MG Tablet PO ×2 (12:45)
[2024-07-16] MEDS: Sertraline 100 MG Tablet PO (12:46)
--- NOTE | 2024-07-16 14:31 | CASEMGMT ---
Discharge Planning Pts confirmed that she is to return to [facility] upon discharge. SW updated. Pallavi Guadarrama DC Planning Asst.
--- NOTE | 2024-07-16 14:43 | CASEMGMT ---
Addendum entered by Pallavi Guadarrama 07/16/24 15:15: Pt will need precert to return. SW updated. Pallavi Guadarrama DC Planning Asst. Original Note: Discharge Planning Updates sent via [facility] to [facility]. Asked if precert is needed to return. Awaiting response. Pallavi Guadarrama DC Planning Asst.
--- NOTE | 2024-07-16 15:49 | CASEMGMT ---
Discharge Planning Note sent to [facility] requesting precert be started. Pallavi Guadarrama DC Planning Asst.
--- NOTE | 2024-07-16 17:47 | PN.HOSP_ITS ---
Hospitalist Note Patient was seen and examined today, she says a few words to this examiner but does not carry on a conversation. Patient's MRI today did not show an acute stroke or process, I canceled her MRI of her head and neck due to the fact that she would not lie still for the MRI this morning and approximately half of it was done. This is despite the patient being given Ativan p.o. PT and OT will continue to work with the patient, as of now we will have to get a pre-CERT for the patient to return to the residential. The etiology of the patient's acute confusion is unknown at this time, I talked briefly with the residential and verified that a few days ago the patient was able to feed herself and was up walking around and seemed oriented x 3. Patient will continue to be offered supportive care for now, it does not appear that the patient is septic or has a severe infection. Teleneurology consultation was ordered.
[2024-07-16] MEDS: MELATONIN 3 MG TABLET PO (22:54)
[2024-07-16] MEDS: Atorvastatin Calcium 40 MG Tablet PO (22:54)
[2024-07-17] VITALS (9 sets, daily range): BP systolic 156–181; BP diastolic 90–114; PULSE 90–107; RESP 16–18; TEMP 36.2–36.5; O2SAT 94–97; BMI 28.7
[2024-07-17] MEDS: cloNIDine HCl 0.1 MG Tablet 0.3 MG PO ×3 (06:02→21:45)
[2024-07-17 06:19] LABS: Absolute Lymphocyte Count 1.79 X10^3/uL (0.83-4.51); Absolute Neutrophil Count 10.7 X10^3/uL (2.0-7.7); Basophil# 0.09 X10^3/uL; Basophil% 0.6 % (0-1); Eosinophil# 0.06 X10^3/uL; Eosinophils% 0.4 % (0-5); Hematocrit 37.9 % (37-47); Hemoglobin 11.9 g/dL (12.0-15.0); Lymphocyte # 1.79 X10^3/ul (0.83-4.51); Lymphocyte % 12.9 % (19-41); Mean Corp Hgb Conc 31.4 g/dL (32-36); Mean Corpuscular Hgb 29.8 pg (27.0-32.0); Mean Corpuscular Volume 94.8 fL (81-99); Mean Platelet Vol. 9.5 fl (6.2-12.0); Monocyte# 1.17 X10^3/uL; Monocyte% 8.4 % (0-10); NRBC Flagged by Analyzer 0 % (0-5); Neutrophil # 10.71 X10^3/uL (2.7-7.7); Platelet Count 384 K/mm3 (150-450); RBC Distribution Width CV 14.4 % (11.6-14.6); White Blood Count 13.9 K/mm3 (4.4-11.0)
[2024-07-17 06:44] LABS: ALB/GLOB Ratio 1.1 RATIO (0.9-2.4); AST(SGOT) 24 U/L (15-37); Alanine Aminotransfer ALT/SGPT 31 U/L (13-56); Albumin, Serum 3.9 g/dL (3.2-5.0); Alkaline Phosphatase 123 U/L (45-117); Anion Gap 8 (5-15); BUN 35 mg/dL (7-18); BUN/Creat Ratio 11.4 RATIO (10-20); Calcium,Total 10.2 mg/dL (8.5-10.1); Chloride 113 mmol/L (98-107); Cholesterol 153 mg/dL (200); Creatinine, Serum 3.08 mg/dL (0.55-1.02); EST Glomerular Filtration Rate 16 mL/min (>60); Est Glom Filt Rate - Afr Amer 19 mL/min (>60); Estimated Creatinine Clearance 14.87 ml/min; Globulin 3.7 g/dL (2.2-4.2); Glucose 119 mg/dL (74-106); High Density Lipoprotein 61 mg/dL; Potassium 3.6 mmol/L (3.5-5.1); Protein, Total 7.6 g/dL (6.4-8.2); Sodium Level 145 mmol/L (136-145); Triglycerides 242 mg/dL; Very Low Density Lipoprotein 48 mg/dL (5-40)
[2024-07-17 07:44] LABS: Hemoglobin A1c 5.6 % (3.8-5.6)
[2024-07-17] MEDS: hydrALAZINE 20 MG/ML Vial 10 MG IV (09:30)
[2024-07-17] MEDS: Sertraline 100 MG Tablet PO (09:43)
[2024-07-17] MEDS: Aspirin 81 MG TAB.CHEW PO (09:43)
[2024-07-17] MEDS: Sertraline 50 MG Tablet PO (09:43)
[2024-07-17] MEDS: NIFEdipine 90 MG Tablet PO (09:44)
[2024-07-17] MEDS: Pantoprazole Sodium 40 MG Tablet PO (09:44)
[2024-07-17] MEDS: busPIRone 5 MG Tablet PO (09:44)
[2024-07-17] MEDS: Spironolactone 25 MG Tablet PO (09:44)
[2024-07-17] MEDS: Fenofibrate 48 MG Tablet PO (09:44)
[2024-07-17] MEDS: Metoprolol Tartrate 100 MG Tablet PO ×2 (09:44→21:46)
--- NOTE | 2024-07-17 10:16 | CON.PCM.NE_ITS ---
Assessment and Plan: Neuro Assessment/Plan SUAD HADDAD is a 69 F with a past medical history of CP,recent intracranial bleed almost a month ago being evaluated by Teleneurology for confusion and global aphasia MRI brain , CT head stable with stable actually decreasing size of bleed .MR angio cancelled because patient unable to tolerate . Acute stroke ruled out . Bleed with stable size. .CMP initially potassium 3.2, chloride 114, BUN/creatinine 41/3.06, glucose 150, ammonia 25, TSH/1.330, no concern for infection. I would recommend stat EEG to rule out seizure . It could be post ictal state or seizure itself . Recommend loading with Keppra 2 gm followed by 750 mg BID a fter the EEG is performed. Diagnosis: concern for seizure post traumatic bleed. I personally attended this patient and spent a total time of 60 minutes evaluating this patient including clinical assessment, review of chart, medical history imaging, and determining appropriate treatment and workup. Magui Dee MD Teleneurology Department , [facility] HPI Consult Data Date of Consult: 07/17/24 HPI Narrative HPI Narrative: As per HPI: The patient is a 69 y/o F w/ PMHx: CKD stage IV w/ reported recent LUKE on CKD event with prior usage of HD with reportedly last HD session potentially ~ 1 month ago prior MWF following w/ Dr. Simmons, Chronic anemia/AOCD, GERD w/ Hx GI bleed, HTN, HLD, Cerebral palsy, PAF previously on eliquis, Nonobstructive CAD, GERD, Hx Traumatic acute brain bleed s/p fall acutely 4 weeks prior to current presentation who presents to the [facility] ED on 07/16/24 with history of being sent in by the residential recent discharge following mechanical fall found on the floor at ~ 1:35 am with reported decreased talkativeness per RN familiar with her with intracranial bleed with care at [facility] with confusion including to self, place and normal questions she would be familiar prompting ED referral. The SNF RN reports having potentially seen the patient driving after her head bleed. notes that she has recovered well from her recent fall with ICH and has been function and oriented x 3. In the ED the patient is extremely agitated, moving frequently, will answer some questions but fails to answer others with answers primarily short. Occasionally does not follow exam requests but if prompted and extremities lifted will proceed to follow more of the request. Workup in the ED included T99.3, heart 109, BP 171/98, respiratory rate 17, 93% on room air, CBC with WC 12, he 110.4, MCV 94.4, platelet 338 with left shift, unremarkable coags, CMP with potassium 3.2, chloride 114, BUN/creatinine 41/3.06, glucose 150 otherwise hepatic profile not marked appearing, ammonia 25, TSH/1.330, VBG/COVID/influenza/RSV PCR/urinalysis pending upon request evaluation of patient, CT of the brain with decreased size and density the previous extra-axial hemorrhage overlying the right parietal lobe now measuring up to 6 mm in thickness with resolution of the previous subarachnoid hemorrhage, low-density subdural fluid collection overlying the right cerebral hemisphere measuring up to 5 mm thickness consistent with a small chronic subdural hematoma or hygroma with no acute intracranial blood products, CT cervical spine with no acute injuries with degenerative changes, chest x-ray with no acute cardiopulmonary findings, plain film of the pelvis unremarkable, EKG with ST with nonspecific changes with no acute evidence of ischemia, urinalysis pending per ED. in the ED patient ministered 500 mL normal saline. On my evaluation, [facility] Medical History (Updated 07/16/24 @ 06:[address] Eloy Yost, DO) PAF (paroxysmal atrial fibrillation) ESRD on dialysis Traumatic subarachnoid hemorrhage without loss of consciousness, subsequent encounter GERD (gastroesophageal reflux disease) Osteoarthritis Hyperlipidemia History of ESBL E. coli infection Post-menopausal CAD (coronary artery disease) Cerebral palsy High cholesterol Hypertension Home Medications ?Medication ?Instructions ?Recorded ?Last Taken ?Type clonidine HCl 0.3 mg tablet 0.3 mg PO Q8H BP 07/25/23 Unknown History ergocalciferol (vitamin D2) 1,250 50,000 unit PO QWEEK supplement 07/25/23 Unknown History mcg (50,000 unit) capsule (Vitamin D2) metoprolol tartrate 100 mg tablet 100 mg PO Q12H BP 07/25/23 Unknown History spironolactone 25 mg tablet 25 mg PO DAILY DIURESIS 07/25/23 Unknown History pantoprazole 40 mg tablet,delayed 40 mg PO DAILY #60 tabs 12/03/23 Unknown Rx release (Protonix) sucralfate 1 gram tablet 1 g PO BID 12/17/23 Unknown History atorvastatin 40 mg tablet 40 mg PO DAILY 07/16/24 Unknown History buspirone 5 mg tablet 5 mg PO DAILY 07/16/24 Unknown History fenofibrate micronized 67 mg 67 mg PO DAILY 07/16/24 Unknown History capsule magnesium oxide 200 mg PO BID 07/16/24 Unknown History melatonin 3 mg capsule 3 mg PO QHS 07/16/24 Unknown History nifedipine 90 mg tablet,extended 90 mg PO DAILY 07/16/24 Unknown History release nitroglycerin 0.4 mg sublingual 0.4 mg sublingual Q5M PRN chest 07/16/24 Unknown History tablet pain sertraline 100 mg tablet 100 mg PO DAILY 07/16/24 Unknown History sertraline 50 mg tablet 50 mg PO DAILY 07/16/24 Unknown History vit B comp no.1-[id number]-[id number]-biotin PO 07/16/24 Unknown History Allergy/AdvReac Type Severity Reaction Status Date / Time No Known Allergies Allergy Verified 07/16/24 03:07 Family History (Updated 07/16/24 @ 05:[address] Hawa Butler MD) Mother Heart disease Father Heart disease Surgical History (Updated 07/16/24 @ 05:[address] Hawa Butler MD) S/P endoscopy Social History (Updated 07/16/24 @ 05:[address] Hawa Butler MD) household members: none housing: residential Smoking Status: Never smoker alcohol intake: never substance use type: does not use Vital Signs Vital Signs Vital Signs: 07/16/24 10:30 07/16/24 11:28 07/16/24 14:00 Temperature 98.4 F 98.4 F Temperature Source Temporal Temporal Pulse Rate 98 98 Respiratory Rate 16 16 Respiratory Effort Non-Labored Respiratory Depth Respiratory Pattern Blood Pressure 138/86 H 138/86 H Blood Pressure Mean 103 103 Blood Pressure Source Blood Pressure Position Blood Pressure Location Pulse Ox 96 Oxygen Delivery Method Room Air 07/16/24 15:05 07/16/24 16:30 07/16/24 22:00 Temperature 97.9 F Temperature Source Temporal Pulse Rate 108 H Respiratory Rate 16 Respiratory Effort Normal Non-Labored Respiratory Depth Normal Respiratory Pattern Normal Blood Pressure 143/97 H Blood Pressure Mean 112 Blood Pressure Source Monitor Blood Pressure Position Semi-Fowlers Blood Pressure Location Right Arm Pulse Ox 96 96 Oxygen Delivery Method Room Air Room Air Room Air 07/16/24 22:37 07/16/24 22:37 07/17/24 03:38 Temperature 98.1 F 98.1 F 97.4 F L Temperature Source Temporal Temporal Temporal Pulse Rate 108 H 108 H 107 H Respiratory Rate 18 18 18 Respiratory Effort Respiratory Depth Respiratory Pattern Blood Pressure 141/113 H 141/113 H 181/110 H Blood Pressure Mean 122 122 133 Blood Pressure Source Monitor Monitor Blood Pressure Position Semi-Fowlers Semi-Fowlers Blood Pressure Location Right Arm Right Arm Pulse Ox 95 95 95 Oxygen Delivery Method Room Air Room Air Room Air 07/17/24 03:38 07/17/24 05:11 07/17/24 07:48 Temperature 97.4 F L Temperature Source Temporal Pulse Rate 107 H Respiratory Rate 18 Respiratory Effort Normal Non-Labored Respiratory Depth Normal Respiratory Pattern Normal Blood Pressure 181/110 H Blood Pressure Mean 133 Blood Pressure Source Blood Pressure Position Blood Pressure Location Pulse Ox 95 96 Oxygen Delivery Method Room Air Room Air 07/17/24 08:37 07/17/24 09:30 07/17/24 09:44 Temperature Temperature Source Pulse Rate 90 90 Respiratory Rate Respiratory Effort Normal Non-Labored Respiratory Depth Respiratory Pattern Blood Pressure 170/114 H Blood Pressure Mean Blood Pressure Source Blood Pressure Position Blood Pressure Location Pulse Ox Oxygen Delivery Method Room Air Weight Weight: 68.9 kg Body Mass Index (BMI) 28.7 NIHSS NIHSS Nursing Documentation NIHSS Nursing Documentation: NIH Stroke Scale Start: 07/16/24 04:00 Freq: Status: Discharge Protocol: Activity Type Activity Date Activity User E-sign Co-sign Detail Recorded Client Recorded Date Recorded By Document 07/16/24 04:00 [id number] 07/16/24 05:37 07/16/24 04:00 NIH Stroke Scale [NIHSS] A score of 0 is normal or asymptomatic . Total possible score is 42. Inpatient: RN or Physician to activate a stroke alert for onset of new stroke symptoms or with NIHSS increase >/= 3 points. Following change in neurological status, NIHSS will be performed per physician order or more frequently PRN. -1a. Level of Consciousness Not alert; Arousable by minor stimuli to obey, answer & respond -1b. LOC Questions Answers neither question correctly. -1c. LOC Commands Performs one task correctly. -2. Best Gaze Normal -9. Best Language Severe aphasia; -Total 6 Query Text:A score of 0 is normal or asymptomatic. Total possible score is 42 . ED: Notify Physician for NIHSS increase by > / = 3 points. Inpatient: RN or Physician to activate a stroke alert for NIHSS increase of > / = 3 points. NIHSS: Ischemic Stroke/TIA Start: 07/16/24 06:15 Text: For PCU Patients: NIH and Neuro Check every 4 Status: Complete hours, PRN and with change in RN caregiver. Freq: [id number] Protocol: Activity Type Activity Date Activity User E-sign Co-sign Detail Recorded Client Recorded Date Recorded By Document 07/16/24 10:30 MML [id number] 07/16/24 11:00 MML 07/16/24 10:30 -1a. Level of Consciousness Alert; keenly responsive -1b. LOC Questions Answers one question correctly. -1c. LOC Commands Performs one task correctly. -2. Best Gaze Normal -3. Visual No visual loss -4. Facial Palsy Normal symmetrical movements -5a. Left Arm No drift; arm holds 90 (or 45 ) degrees for full 10 seconds -5b. Right Arm No drift; arm holds 90 (or 45 ) degrees for full 10 seconds -6a. Left Leg Some effort against gravity ; -6b. Right Leg Some effort against gravity ; -7. Limb Ataxia Absent -8. Sensory Normal; no sensory loss -9. Best Language Mild-to- moderate aphasia; -10. Dysarthria Normal -11. Extinction and Inattention Visual, tactile , auditory, spatial, or personal inattention -Total 8 Query Text:A score of 0 is normal or asymptomatic. Total possible score is 42 . ED: Notify Physician for NIHSS increase by > / = 3 points. Inpatient: RN or Physician to activate a stroke alert for NIHSS increase of > / = 3 points. Coma Scale [Assess] -Eye Opening Spontaneous -Motor Obeys Commands -Verbal Confused [Total] -Coma Scale Total 14 Lab / Micro Data 07/17/24 05:51 07/17/24 05:51 Labs: Laboratory Results - last 24 hr 07/17/24 05:51: WBC 13.9 H, RBC 4.00 L, Hgb 11.9 L, Hct 37.9, MCV 94.8, MCH 29.8, MCHC 31.4 L, RDW Std Deviation 50.0 H, RDW Coeff of Rory 14.4, Plt Count 384, MPV 9.5, Immature Gran % (Auto) 0.700, Neut % (Auto) 77.0 H, Lymph % (Auto) 12.9 L, [place] % (Auto) 8.4, Eos % (Auto) 0.4, Baso % (Auto) 0.6, Absolute Neuts (auto) 10.7 H, Absolute Lymphs (auto) 1.79, Nucleated RBC % 0, Sodium 145, Potassium 3.6, Chloride 113 H, Carbon Dioxide 24.0, Anion Gap 8, BUN 35 H, C reatinine 3.08 H, Estim Creat Clear Calc 14.87, Est GFR (MDRD) Af Amer 19 L, Est GFR (MDRD) Non-Af 16 L, BUN/Creatinine Ratio 11.4, Glucose 119 H, Hemoglobin A1c 5.6, Calcium 10.2 H, Total Bilirubin 0.50, AST 24, ALT 31, Alkaline Phosphatase 123 H, Total Protein 7.6, Albumin 3.9, Globulin 3.7, Albumin/Globulin Ratio 1.1, Triglycerides 242 H, Cholesterol 153, LDL Cholesterol 44, VLDL Cholesterol 48 H, HDL Cholesterol 61 Imaging Radiology Impression Brain MRI 07/16/24 06:15 IMPRESSION: 1. Subacute subdural hematoma overlying the right cerebral hemisphere with mild mass effect but no midline shift. 2. No MRI evidence of acute or subacute ischemic infarct. 3. Chronic periventricular white matter ischemic changes in both cerebral hemispheres. 4. No significant interval change when compared to CT head scan of 07/16/2024. Electronically Signed: Brandin Angel MD at 11:22 EST , Echocardiogram 07/16/24 06:15 Interpretation Summary The estimated ejection fraction is 65 %. No evidence for diastolic dysfunction. Trivial mitral valve insufficiency. Ordering Physician: Hawa Butler Referring Physician: RAYMOND AMARAL Performed By: Ivelisse Wade and Student Active Medications Active Medications Active Medications: Current Medications Generic Name Dose Route Start Last Admin Trade Name Freq PRN Reason Stop Dose Admin Acetaminophen 650 mg 07/16/24 06:15 Acetaminophen 325 Mg Tablet PO Q4H PRN PRN Fever, pain 1-06/11 Al Hydroxide/Mg Hydroxide 30 ml 07/16/24 06:15 Mag Hydrox/Al Hydrox/Simeth 30 Ml Udc PO Q6H PRN PRN Gastric Burning Albuterol Sulfate 2.5 mg 07/16/24 06:15 Albuterol 2.5 Mg/3 Ml Vial.Neb. INHALATION Q2H PRN PRN Dyspnea, wheezing Aspirin 81 mg 07/16/24 08:00 07/17/24 09:43 Aspirin 81 Mg Tab.Chew PO 81 mg BREAKFAST JACQUES Administration Atorvastatin Calcium 40 mg 07/16/24 22:00 07/16/24 22:54 Atorvastatin Calcium 40 Mg Tablet PO 40 mg QHS JACQUES Administration Buspirone HCl 5 mg 07/16/24 10:00 07/17/24 09:44 Buspirone 5 Mg Tablet PO 5 mg DAILY JACQUES Administration Clonidine 0.3 mg 07/17/24 06:00 07/17/24 06:02 Clonidine Hcl 0.1 Mg Tablet PO 0.3 mg Q8 JACQUES Administration Fenofibrate 48 mg 07/16/24 10:00 07/17/24 09:44 Fenofibrate 48 Mg Tablet PO 48 mg DAILY JACQUES Administration Guaifenesin 20 ml 07/16/24 06:15 Guaifenesin 10 Ml Udc (200mg/10ml) PO Q4H PRN PRN COUGH Hydralazine HCl 10 mg 07/17/24 05:02 07/17/24 09:30 Hydralazine 20 Mg/Ml Vial IV 10 mg Q4H PRN PRN Administration SBP > 160 Protocol Melatonin 3 mg 07/16/24 22:00 07/16/24 22:54 Melatonin 3 Mg Tablet PO 3 mg QHS JACQUES Administration Metoprolol Tartrate 100 mg 07/17/24 10:00 07/17/24 09:44 Metoprolol Tartrate 100 Mg Tablet PO 100 mg Q12 JACQUES Administration Protocol Nifedipine 90 mg 07/17/24 10:00 07/17/24 09:44 Nifedipine 90 Mg Tablet PO 90 mg DAILY JACQUES Administration Protocol Ondansetron HCl 4 mg 07/16/24 06:15 Ondansetron 4 Mg/2 Ml Vial IV Q8H PRN PRN NAUSEA/VOMITING Pantoprazole Sodium 40 mg 07/16/24 10:00 07/17/24 09:44 Pantoprazole Sodium 40 Mg Tablet PO 40 mg DAILY JACQUES Administration Prochlorperazine Edisylate 5 mg 07/16/24 06:15 Prochlorperazine 10 Mg/2 Ml Vial IV Q4H PRN PRN Breakthrough Nausea/Vomiting Senna/Docusate Sodium 2 tablet 07/16/24 06:15 Senna/Docusate Sodium 1 Tablet PO BID PRN PRN Constipation Sertraline HCl 50 mg 07/16/24 10:00 07/17/24 09:43 Sertraline 50 Mg Tablet PO 50 mg DAILY JACQUES Administration Sertraline HCl 100 mg 07/16/24 10:00 07/17/24 09:43 Sertraline 100 Mg Tablet PO 100 mg DAILY JACQUES Administration Spironolactone 25 mg 07/17/24 10:00 07/17/24 09:44 Spironolactone 25 Mg Tablet PO 25 mg DAILY JCAQUES Administration Protocol Sucralfate 1 gm 07/16/24 07:00 07/16/24 16:39 Sucralfate 1 Gm Tablet PO 1 gm 0700,1600 [facility] Administration
--- NOTE | 2024-07-17 11:55 | CASEMGMT ---
Discharge Planning [facility] notified that pt may return over the weekend. Phone/fax received and green sheet placed in chart. Pallavi Guadarrama DC Planning Asst.
--- NOTE | 2024-07-17 11:55 | CASEMGMT ---
Patient has been approved to return to [facility], however patient is not ready. [facility] notified. Plan: d/c back to [facility] under skilled level of care when medically ready. Huma POSADAS
[2024-07-17] MEDS: levETIRAcetam IV 2,000 MG in 0.9% Normal Saline (250mL Bag) 230 ML 1000 MG IV (12:02)
--- NOTE | 2024-07-17 14:40 | PN.HOSP_ITS ---
Reason for Visit Reason for Visit: Diagnoses Aphasia (07/16/24) Subjective Subjective Patient was seen and examined today, she still exhibits altered mental status is not able to carry on a conversation with this examiner. Patient only says a few words to me. She still seems confused. I talked by phone with neurology today, they recommended starting the patient on Keppra for possible seizures and obtain an EEG. We got pre-CERT for the patient return to her assisted facility but until I can confirm that her mental status is improved I have elected to keep her here. Objective Data Objective Data Vital Signs: Vital Signs Temp Pulse Resp BP Pulse Ox O2 Del Method 97.4 F L 90 18 170/114 H 96 Room Air 07/17/24 03:38 07/17/24 09:44 07/17/24 03:38 07/17/24 09:30 07/17/24 07:48 07/17/24 08:37 Oxygen Delivery Method Room Air Weight: 68.9 kg Body Mass Index (BMI) 28.7 Intake & Output: Intake and Output for Last 24 Hours 07/15/24 07/16/24 07/17/24 23:59 23:59 23:59 Intake Total 720 / 720 250 / 250 Output Total 500 / 500 400 / 400 Balance 220 / 220 -150 / -150 Lab / Micro Data 07/17/24 05:51 07/17/24 05:51 Labs: Laboratory Results - last 24 hr 07/17/24 05:51: WBC 13.9 H, RBC 4.00 L, Hgb 11.9 L, Hct 37.9, MCV 94.8, MCH 29.8, MCHC 31.4 L, RDW Std Deviation 50.0 H, RDW Coeff of Rory 14.4, Plt Count 384, MPV 9.5, Immature Gran % (Auto) 0.700, Neut % (Auto) 77.0 H, Lymph % (Auto) 12.9 L, [place] % (Auto) 8.4, Eos % (Auto) 0.4, Baso % (Auto) 0.6, Absolute Neuts (auto) 10.7 H, Absolute Lymphs (auto) 1.79, Nucleated RBC % 0, Sodium 145, Potassium 3.6, Chloride 113 H, Carbon Dioxide 24.0, Anion Gap 8, BUN 35 H, C reatinine 3.08 H, Estim Creat Clear Calc 14.87, Est GFR (MDRD) Af Amer 19 L, Est GFR (MDRD) Non-Af 16 L, BUN/Creatinine Ratio 11.4, Glucose 119 H, Hemoglobin A1c 5.6, Calcium 10.2 H, Total Bilirubin 0.50, AST 24, ALT 31, Alkaline Phosphatase 123 H, Total Protein 7.6, Albumin 3.9, Globulin 3.7, Albumin/Globulin Ratio 1.1, Triglycerides 242 H, Cholesterol 153, LDL Cholesterol 44, VLDL Cholesterol 48 H, HDL Cholesterol 61 Micro: Microbiology 07/16/24 04:15 Mucosa - Nose SARS-CoV-2, Influenza & RSV (PCR) - Final Physical Exam Const alert and no apparent distress Constitutional Narrative: Patient is alert, she is confused. General Appearance: well developed Orientation / Consciousness: awake and confused HEENT normocephalic, head/scalp atraumatic and moist oral mucous membranes Eyes PERRL, EOMs intact bilaterally and conjunctivae normal Neck supple, no JVD, thyroid normal and no carotid bruits General: trachea midline Resp normal respiratory effort, no retractions, no use of accessory muscles and clear to auscultation bilaterally Auscultation: Negative for rales, rhonchi or wheezes Cardio regular rate, regular rhythm, no murmurs, no rub and no gallops GI normal to inspection, nondistended, normoactive bowel sounds, soft to palpation, non-tender and non-distended Extremity no clubbing, cyanosis or edema Skin no rashes or lesions noted General Skin Exam: no breakdown Neuro CN's II-XII intact bilaterally Neuro Narrative: Patient is confused, she is not able to carry on a conversation, she only says a few words to this examiner. Sensorium / Orientation: awake and alert Psych Psych Narrative: Patient only says a few words to this examiner, she exhibits confusion Assessment & Plan Assessment/Plan (1) Altered mental status: PLAN: Plan 1. Encephalopathy-etiology unclear at this point, again teleneurology recommended the patient be placed on seizure medications (Keppra) and an EEG be obtained to rule out seizure. Patient will be reevaluated tomorrow by teleneurology, for now the patient will stay in the hospital here #2 hypokalemia-potassium supplementation was given, labs will be monitored as needed #3 history of cerebral palsy-complicates care, management, recovery, and prognosis #4 chronic kidney disease stage V-patient is no longer on dialysis at this time, labs will be monitored as necessary #5 recent intracranial bleed June 18, 2024-there is no evidence on the patient's MRI this admission that this area is expanding, the appearance appears to be improving. Total clinical time spent by myself addressing the patient's medical issues, reviewing all of her data, and collaborating with patient's care team: 35 minutes Charges/Coding Visit Charges Inpatient E&M: 19272 Subs Hosp L2
[2024-07-17] MEDS: Sucralfate 1 GM Tablet PO (14:58)
[2024-07-17] MEDS: levETIRAcetam IV 750 MG in 0.9% Normal Saline (100mL Bag) 100 ML 430 MG IV (21:44)
[2024-07-17] MEDS: MELATONIN 3 MG TABLET PO (21:46)
[2024-07-17] MEDS: Atorvastatin Calcium 40 MG Tablet PO (21:47)
[2024-07-18] VITALS (8 sets, daily range): BP systolic 128–149; BP diastolic 74–88; PULSE 69–84; RESP 16–18; TEMP 36.5–36.7; O2SAT 93–96; BMI 29.1
[2024-07-18] MEDS: Sucralfate 1 GM Tablet PO ×2 (06:26→16:32)
[2024-07-18] MEDS: cloNIDine HCl 0.1 MG Tablet 0.3 MG PO ×3 (06:26→21:01)
[2024-07-18] MEDS: levETIRAcetam IV 750 MG in 0.9% Normal Saline (100mL Bag) 100 ML 430 MG IV ×2 (09:08→21:00)
[2024-07-18] MEDS: NIFEdipine 90 MG Tablet PO (09:11)
[2024-07-18] MEDS: Sertraline 50 MG Tablet PO (09:12)
[2024-07-18] MEDS: Fenofibrate 48 MG Tablet PO (09:13)
[2024-07-18] MEDS: busPIRone 5 MG Tablet PO (09:13)
[2024-07-18] MEDS: Spironolactone 25 MG Tablet PO (09:14)
[2024-07-18] MEDS: Aspirin 81 MG TAB.CHEW PO (09:14)
[2024-07-18] MEDS: Metoprolol Tartrate 100 MG Tablet PO ×2 (09:15→21:01)
[2024-07-18] MEDS: Sertraline 100 MG Tablet PO (09:15)
--- NOTE | 2024-07-18 10:15 | NEURO.PNOTE ---
Assessment and Plan: Neuro Assessment/Plan Assessment and Plan: SUAD HADDAD is a 69 F with a past medical history of CP,recent intracranial bleed almost a month ago being evaluated by Teleneurology for confusion and global aphasia .MRI brain , CT head stable stable actually decreasing size of bleed . MR angio cancelled because patient unable to tolerate . Acute stroke ruled out . Bleed with stable size. .CMP initially potassium 3.2, chloride 114, BUN/creatinine 41/3.06, glucose 150, ammonia 25, TSH/1.330, no concern for infection. Stat EEG to ruled out seizure however showed GPD concerning for diffuse cortical irritability and also showed moderate diffuse encephalopathy .Given clinical concern, recommended loading with Keppra 2 gm followed by 750 mg BID .Continue to be aphasic. Cause of global aphasia remains unclear. Recommend CSF analysis to rule out infections/autoimmune encephalitis. Please order CSF culture,protein,glucose,cell count with differentials,serum and CSF autoimmune panel. I personally attended this patient and spent a total time of 30 minutes evaluating this patient including clinical assessment, review of chart, medical history imaging, and determining appropriate treatment and workup. Magui Dee MD [facility] teleneurology dept Subject: Neurology Subjective SUAD HADDAD is a 69 year old F, who we are seeing in consultation today for advice on the management of global aphasia and related patient care. NIHSS NIHSS Nursing Documentation NIHSS Nursing Documentation: NIH Stroke Scale Start: 07/16/24 04:00 Freq: Status: Discharge Protocol: Activity Type Activity Date Activity User E-sign Co-sign Detail Recorded Client Recorded Date Recorded By Document 07/16/24 04:00 [id number] 07/16/24 05:37 07/16/24 04:00 NIH Stroke Scale [NIHSS] A score of 0 is normal or asymptomatic . Total possible score is 42. Inpatient: RN or Physician to activate a stroke alert for onset of new stroke symptoms or with NIHSS increase >/= 3 points. Following change in neurological status, NIHSS will be performed per physician order or more frequently PRN. -1a. Level of Consciousness Not alert; Arousable by minor stimuli to obey, answer & respond -1b. LOC Questions Answers neither question correctly. -1c. LOC Commands Performs one task correctly. -2. Best Gaze Normal -9. Best Language Severe aphasia; -Total 6 Query Text:A score of 0 is normal or asymptomatic. Total possible score is 42 . ED: Notify Physician for NIHSS increase by > / = 3 points. Inpatient: RN or Physician to activate a stroke alert for NIHSS increase of > / = 3 points. NIHSS: Ischemic Stroke/TIA Start: 07/16/24 06:15 Text: For PCU Patients: NIH and Neuro Check every 4 Status: Complete hours, PRN and with change in RN caregiver. Freq: [id number] Protocol: Activity Type Activity Date Activity User E-sign Co-sign Detail Recorded Client Recorded Date Recorded By Document 07/16/24 10:30 MML [id number] 07/16/24 11:00 MML 07/16/24 10:30 -1a. Level of Consciousness Alert; keenly responsive -1b. LOC Questions Answers one question correctly. -1c. LOC Commands Performs one task correctly. -2. Best Gaze Normal -3. Visual No visual loss -4. Facial Palsy Normal symmetrical movements -5a. Left Arm No drift; arm holds 90 (or 45 ) degrees for full 10 seconds -5b. Right Arm No drift; arm holds 90 (or 45 ) degrees for full 10 seconds -6a. Left Leg Some effort against gravity ; -6b. Right Leg Some effort against gravity ; -7. Limb Ataxia Absent -8. Sensory Normal; no sensory loss -9. Best Language Mild-to- moderate aphasia; -10. Dysarthria Normal -11. Extinction and Inattention Visual, tactile , auditory, spatial, or personal inattention -Total 8 Query Text:A score of 0 is normal or asymptomatic. Total possible score is 42 . ED: Notify Physician for NIHSS increase by > / = 3 points. Inpatient: RN or Physician to activate a stroke alert for NIHSS increase of > / = 3 points. Coma Scale [Assess] -Eye Opening Spontaneous -Motor Obeys Commands -Verbal Confused [Total] -Coma Scale Total 14 Objective Data Objective Data Vital Signs: Vital Signs Temp Pulse Resp BP Pulse Ox O2 Del Method 98.0 F 84 18 149/86 H 93 Room Air 07/18/24 03:39 07/18/24 09:15 07/18/24 03:39 07/18/24 03:39 07/18/24 07:04 07/18/24 07:04 Oxygen Delivery Method Room Air Weight: 69.9 kg Body Mass Index (BMI) 29.1 Intake & Output: Intake and Output for Last 24 Hours 07/16/24 07/17/24 07/18/24 23:59 23:59 23:59 Intake Total 720 / 720 717.5 / 717.5 107.5 / 107.5 Output Total 500 / 500 1350 / 1350 Balance 220 / 220 -632.5 / -632.5 107.5 / 107.5 Lab / Micro Data 07/17/24 05:51 07/17/24 05:51 Micro: Microbiology 07/16/24 04:15 Mucosa - Nose SARS-CoV-2, Influenza & RSV (PCR) - Final Physical Exam Neuro Neuro Narrative: -? General: Laying comfortably in bed; in no acute distress. -? HENT: Normal oropharynx and mucosa. Normal external appearance of ears and nose. Exophthalmos. -? Neck: Supple, no pain or tenderness -? CV:? No peripheral edema. -? Pulmonary:? Normal respiratory effort. -? Ext: No cyanosis, edema, or deformity -? Skin: No rash. Normal palpation of skin.? -? Musculoskeletal: full range of motion; no joint tenderness. Normal digits and nails by inspection. No clubbing. -? NEURO: -? Mental Status: . -? Language: speech is globally aphasic.? Continue to perseverate on things. -? Cranial Nerves: PERRL 3 mm/brisk. EOMI, visual mathias full, no facial asymmetry, facial sensation intact, hearing intact, tongue midline, no evidence of atrophy or fibrillations. As performed by the nurse -? Motor:able to lift arms and legs against gravity R L -? Tone: is normal and bulk is normal -? Gait- deferred
--- NOTE | 2024-07-18 15:02 | CASEMGMT ---
PERLITA CM NOTE: Insurance review for hospitals In-network with?[facility] Insurance if transfer is recommended is as follows: [facility], [place], [facility], [facility], [facility], [facility], [facility] , [facility], and [facility]. Lonnie LAURENN RN CM
--- NOTE | 2024-07-18 15:42 | PCM.PN.HOSP ---
Reason for Visit Reason for Visit: Diagnoses Altered mental status, unspecified (07/16/24) Aphasia (07/16/24) Subjective Subjective Patient was seen and examined today, I briefly talked with neurology, neurology feels that the patient has improved (so to why) but the patient is not yet back to baseline. Neurology would like to reevaluate the patient tomorrow if she is not back to baseline they recommend sending her out for a spinal tap to another facility. Patient is able to talk with me-she is able to make a few sentences and she ask about milk although she was holding a milk carton. It appears that she wanted another carton of milk. Objective Data Objective Data Vital Signs: Vital Signs Temp Pulse Resp BP Pulse Ox O2 Del Method 97.9 F 84 18 138/88 H 96 Room Air 07/18/24 09:10 07/18/24 09:15 07/18/24 09:10 07/18/24 09:10 07/18/24 09:10 07/18/24 09:10 Oxygen Delivery Method Room Air Weight: 69.9 kg Body Mass Index (BMI) 29.1 Intake & Output: Intake and Output for Last 24 Hours 07/16/24 07/17/24 07/18/24 23:59 23:59 23:59 Intake Total 720 / 720 717.5 / 717.5 107.5 / 107.5 Output Total 500 / 500 1350 / 1350 Balance 220 / 220 -632.5 / -632.5 107.5 / 107.5 Lab / Micro Data 07/17/24 05:51 07/17/24 05:51 Micro: Microbiology 07/16/24 04:15 Mucosa - Nose SARS-CoV-2, Influenza & RSV (PCR) - Final Physical Exam Narrative alert and no apparent distress Constitutional Narrative: Patient is alert, she is able to speak briefly with me General Appearance: well developed Orientation / Consciousness: awake she responds to simple questions with a few words HEENT normocephalic, head/scalp atraumatic and moist oral mucous membranes Eyes PERRL, EOMs intact bilaterally and conjunctivae normal Neck supple, no JVD, thyroid normal and no carotid bruits General: trachea midline Resp normal respiratory effort, no retractions, no use of accessory muscles and clear to auscultation bilaterally Auscultation: Negative for rales, rhonchi or wheezes Cardio regular rate, regular rhythm, no murmurs, no rub and no gallops GI normal to inspection, nondistended, normoactive bowel sounds, soft to palpation, non-tender and non-distended Extremity no clubbing, cyanosis or edema Skin no rashes or lesions noted General Skin Exam: no breakdown Neuro CN's II-XII intact bilaterally Neuro Narrative: she is able to carry on short conversations Sensorium / Orientation: awake and alert Psych Psych Narrative: Patient only says a few words to this examiner Assessment & Plan Assessment/Plan (1) Altered mental status: PLAN: Plan 1. Encephalopathy-etiology unclear at this point, patient is on seizure medications at this time, EEG did not show any focal seizure area but there were generalized periodic discharges noted on the EEG which indicates diffuse cortical irritability, this could be seen in metabolic states but can be concerning for intracranial pathology such as meningitis. Patient will be reevaluated tomorrow, if her status does not markedly improved she may be transferred to another facility for further care and undergo spinal tap. #2 hypokalemia-potassium supplementation was given, labs will be monitored as needed #3 history of cerebral palsy-complicates care, management, recovery, and prognosis #4 chronic kidney disease stage V-patient is no longer on dialysis at this time, labs will be monitored as necessary #5 recent intracranial bleed June 18, 2024-there is no evidence on the patient's MRI this admission that this area is expanding, the appearance appears to be improving. Labs will be obtained tomorrow Total clinical time spent by myself addressing the patient's medical issues, reviewing all of her data, and collaborating with patient's care team: 35 minutes Charges/Coding Visit Charges Inpatient E&M: 63921 Subs Hosp L2
[2024-07-18] MEDS: MELATONIN 3 MG TABLET PO (21:01)
[2024-07-18] MEDS: Atorvastatin Calcium 40 MG Tablet PO (21:01)
[2024-07-19] VITALS (10 sets, daily range): BP systolic 110–132; BP diastolic 63–86; PULSE 60–77; RESP 16–18; TEMP 36.2–36.7; O2SAT 93–96; BMI 29.1
[2024-07-19 05:47] LABS: Absolute Lymphocyte Count 2.78 X10^3/uL (0.83-4.51); Absolute Neutrophil Count 8.7 X10^3/uL (2.0-7.7); Basophil% 0.8 % (0-1); Eosinophil# 0.37 X10^3/uL; Eosinophils% 2.8 % (0-5); Hematocrit 31.9 % (37-47); Hemoglobin 10.1 g/dL (12.0-15.0); Lymphocyte # 2.78 X10^3/ul (0.83-4.51); Lymphocyte % 21.3 % (19-41); Mean Corp Hgb Conc 31.7 g/dL (32-36); Mean Corpuscular Hgb 30.1 pg (27.0-32.0); Mean Corpuscular Volume 94.9 fL (81-99); Mean Platelet Vol. 10.2 fl (6.2-12.0); Monocyte# 1.06 X10^3/uL; Monocyte% 8.1 % (0-10); NRBC Flagged by Analyzer 0 % (0-5); Neutrophil # 8.65 X10^3/uL (2.7-7.7); Neutrophil % 66.2 % (47-70); Platelet Count 344 K/mm3 (150-450); RBC Distribution Width CV 14.4 % (11.6-14.6); RBC Distribution Width SD 50.1 fl (35.1-43.9); Red Blood Count 3.36 M/mm3 (4.2-5.4); White Blood Count 13.1 K/mm3 (4.4-11.0)
[2024-07-19] MEDS: cloNIDine HCl 0.1 MG Tablet 0.3 MG PO ×3 (06:05→22:42)
[2024-07-19] MEDS: Sucralfate 1 GM Tablet PO ×2 (06:06→15:27)
[2024-07-19 06:08] LABS: AST(SGOT) 9 U/L (15-37); Alanine Aminotransfer ALT/SGPT 18 U/L (13-56); Alkaline Phosphatase 87 U/L (45-117); Anion Gap 8 (5-15); BUN 74 mg/dL (7-18); BUN/Creat Ratio 17.1 RATIO (10-20); Calcium,Total 9.1 mg/dL (8.5-10.1); Chloride 110 mmol/L (98-107); Creatinine, Serum 4.32 mg/dL (0.55-1.02); EST Glomerular Filtration Rate 11 mL/min (>60); Est Glom Filt Rate - Afr Amer 13 mL/min (>60); Estimated Creatinine Clearance 10.68 ml/min; Globulin 2.9 g/dL (2.2-4.2); Glucose 114 mg/dL (74-106); Potassium 3.8 mmol/L (3.5-5.1); Protein, Total 5.9 g/dL (6.4-8.2); Sodium Level 139 mmol/L (136-145)
[2024-07-19] MEDS: levETIRAcetam IV 750 MG in 0.9% Normal Saline (100mL Bag) 100 ML 430 MG IV ×2 (09:39→22:41)
[2024-07-19] MEDS: Spironolactone 25 MG Tablet PO (09:44)
[2024-07-19] MEDS: Aspirin 81 MG TAB.CHEW PO (09:44)
[2024-07-19] MEDS: busPIRone 5 MG Tablet PO (09:45)
[2024-07-19] MEDS: Metoprolol Tartrate 100 MG Tablet PO ×2 (09:45→22:43)
[2024-07-19] MEDS: NIFEdipine 90 MG Tablet PO (09:45)
[2024-07-19] MEDS: Sertraline 50 MG Tablet PO (09:46)
[2024-07-19] MEDS: Fenofibrate 48 MG Tablet PO (09:46)
[2024-07-19] MEDS: Sertraline 100 MG Tablet PO (09:46)
--- NOTE | 2024-07-19 15:24 | PCM.PN.HOSP ---
Reason for Visit Reason for Visit: Diagnoses Altered mental status, unspecified (07/16/24) Aphasia (07/16/24) Subjective Subjective Patient was seen and examined today, her significant other was at the bedside and I talked with her today also. Patient is having difficulty stringing sentences together when she talks, she does respond to simple questions however. This is not much different than her mental status was yesterday although she does appear to be more alert today. Objective Data Objective Data Vital Signs: Vital Signs Temp Pulse Resp BP Pulse Ox O2 Del Method 97.2 F L 60 18 116/86 H 96 Room Air 07/19/24 14:00 07/19/24 14:00 07/19/24 14:00 07/19/24 14:00 07/19/24 14:00 07/19/24 14:00 Oxygen Delivery Method Room Air Weight: 69.9 kg Body Mass Index (BMI) 29.1 Intake & Output: Intake and Output for Last 24 Hours 07/17/24 07/18/24 07/19/24 23:59 23:59 23:59 Intake Total 717.5 / 717.5 1035.0 / 1235.0 707.5 / 707.5 Output Total 1350 / 1350 300 / 600 700 / 700 Balance -632.5 / -632.5 735.0 / 635.0 7.5 / 7.5 Lab / Micro Data 07/19/24 04:15 07/19/24 04:15 Labs: Laboratory Results - last 24 hr 07/19/24 04:15: WBC 13.1 H, RBC 3.36 L, Hgb 10.1 L, Hct 31.9 L, MCV 94.9, MCH 30.1, MCHC 31.7 L, RDW Std Deviation 50.1 H, RDW Coeff of Rory 14.4, Plt Count 344, MPV 10.2, Immature Gran % (Auto) 0.800, Neut % (Auto) 66.2, Lymph % (Auto) 21.3, [place] % (Auto) 8.1, Eos % (Auto) 2.8, Baso % (Auto) 0.8, Absolute Neuts (auto) 8.7 H, Absolute Lymphs (auto) 2.78, Nucleated RBC % 0, Sodium 139, Potassium 3.8, Chloride 110 H, Carbon Dioxide 21.0, Anion Gap 8, BUN 74 H, Creatinine 4.32 H, Estim Creat Clear Calc 10.68, Est GFR (MDRD) Af Amer 13 L, Est GFR (MDRD) Non-Af 11 L, BUN/Creatinine Ratio 17.1, Glucose 114 H, Calcium 9.1, Total Bilirubin 0.30, AST 9 L, ALT 18, Alkaline Phosphatase 87, Total Protein 5.9 L, Albumin 3.0 L, Globulin 2.9, Albumin/Globulin Ratio 1.0 Micro: Microbiology 07/16/24 04:15 Mucosa - Nose SARS-CoV-2, Influenza & RSV (PCR) - Final Physical Exam Narrative alert and no apparent distress Constitutional Narrative: Patient is alert, she is able to speak briefly with me General Appearance: well developed Orientation / Consciousness: awake she responds to simple questions with a few words, she has difficulty forming sentences however HEENT normocephalic, head/scalp atraumatic and moist oral mucous membranes Eyes PERRL, EOMs intact bilaterally and conjunctivae normal Neck supple, no JVD, thyroid normal and no carotid bruits General: trachea midline Resp normal respiratory effort, no retractions, no use of accessory muscles and clear to auscultation bilaterally Auscultation: Negative for rales, rhonchi or wheezes Cardio regular rate, regular rhythm, no murmurs, no rub and no gallops GI normal to inspection, nondistended, normoactive bowel sounds, soft to palpation, non-tender and non-distended Extremity no clubbing, cyanosis or edema Skin no rashes or lesions noted General Skin Exam: no breakdown Neuro CN's II-XII intact bilaterally Neuro Narrative: she is able to carry on short conversations Sensorium / Orientation: awake and alert Psych Psych Narrative: Patient only says a few words to this examiner, she has difficulty forming sentences however Assessment & Plan Assessment/Plan (1) Altered mental status: PLAN: Plan 1. Encephalopathy-etiology unclear at this point, patient is on seizure medications at this time, EEG did not show any focal seizure area but there were generalized periodic discharges noted on the EEG which indicates diffuse cortical irritability, this could be seen in metabolic states but can be concerning for intracranial pathology such as meningitis. I talked to teleneurology today, they recommended obtaining a spinal tap for cytology and cell count and culture, they said they may decide to repeat the patient's head CT tomorrow. I had a conversation with the patient's significant other who was in the room at the time my examination today, he would rather have the patient undergo spinal tap here rather than transfer her out to a tertiary facility. #2 hypokalemia-potassium supplementation was given, labs will be monitored as needed #3 history of cerebral palsy-complicates care, management, recovery, and prognosis #4 chronic kidney disease stage V-patient is no longer on dialysis at this time, labs will be monitored as necessary, patient's creatinine today is 4.32, I have elected to place the patient on some fluids overnight and repeat her BMP tomorrow to see if it is improved. If not, nephrology may have to see the patient in consultation #5 recent intracranial bleed with subdural hematoma in the right cerebral hemisphere June 18, 2024-there is no evidence on the patient's MRI this admission that this area is expanding, the appearance appears to be improving. Total clinical time spent by myself addressing the patient's medical issues, reviewing all of her data, and collaborating with patient's care team: 35 minutes Charges/Coding Visit Charges Inpatient E&M: 75960 Subs Hosp L2
[2024-07-19] MEDS: MELATONIN 3 MG TABLET PO (22:43)
[2024-07-19] MEDS: Atorvastatin Calcium 40 MG Tablet PO (22:43)
[2024-07-20] VITALS (11 sets, daily range): BP systolic 101–140; BP diastolic 63–81; PULSE 56–62; RESP 16–18; TEMP 36.3–36.7; O2SAT 92–96; BMI 29.1
--- NOTE | 2024-07-20 | FLU_PTH ---
PATIENT: NELIDA MUSTAFA LOC: [facility] U#:[id number] AGE/SX: 69/F ROOM: [facility] RE07/16/[address]: Dr. Adams Nieto MD : 1955 BED: 1 DIS: 07/22/2024 SPEC #: [id number] RECD: 07/20/24 11:58 STATUS: CM REQ #: [id number] JERZY: 07/20/24 00:[address]: Alejo Kunz DEPT: CYTOLOGY RECD BY: Americo Berman ENTERED: 07/20/24 11:59 SP TYPE: Fluid OTHR DR: MD Dr. Dylan Crawley MD Archana Hinduja, MD Dr. Allison Jordan, DO Dr. Autumn L White, MD Dr. Alicia Zha, MD Danielle Becker, MD Dr. Deepak Gulati, MD Dr. Hera Kamdar, MD Dr. Jan Bittar, MD Dr. James Burke, MD Jesse Mindel, MD Ryan Lindsey Dr., MD LEBRON PAIGE, MD Margaret Beigel, MD Dr. Matthew Gusler, MD Dr. Maryam Mian, MD Dr. Mohamed Ridha, MD Dr. Mhd Ezzat Zaghlouleh, MD Nabil Khandker, MD Dr. Prakash Chand, MD Dr. Paul Nielsen, MD Dr. Peter Robinson, MD Dr. Rami Ibrahim, MD Dr. Sushil Lakhani, MD Sarita Maturu, MD Dr. Vivien Lee, MD Yousef Hannawi, MD Tissues: Cerebrospinal Fluid Procedures: Special Stain Group II Surgery Specimen Level IV Cytospin Fluid HEADER OPERATION: Not noted PRE-OP DIAGNOSIS: Encephalopathy, aphasis, CVA TISSUE SUBMITTED: Cerebrospinal fluid for cytology DIAGNOSIS CYTOLOGY Cerebrospinal fluid for cytology (cytospin): Negative for malignant cells. See comment. 07/20/2024 COMMENT The specimen is bloody. Clinical correlation and appropriate follow up are necessary. CYTOLOGY STUDY Slides are reviewed. CYTOLOGY GROSS Received is 4 ml of clear- colorless fluid labeled with the patient's name and and designated per the requisition as Cerebrospinal fluid. Submitted for cytology preparation. Mr 07/20/2024 TC:5 CPT: 69445
[2024-07-20] MEDS: cloNIDine HCl 0.1 MG Tablet 0.3 MG PO ×3 (05:38→22:04)
[2024-07-20] MEDS: Sucralfate 1 GM Tablet PO ×2 (05:38→16:58)
[2024-07-20 06:44] LABS: AST(SGOT) 7 U/L (15-37); Alanine Aminotransfer ALT/SGPT 15 U/L (13-56); Albumin, Serum 2.9 g/dL (3.2-5.0); Alkaline Phosphatase 83 U/L (45-117); Anion Gap 8 (5-15); BUN 86 mg/dL (7-18); BUN/Creat Ratio 19.2 RATIO (10-20); Calcium,Total 8.9 mg/dL (8.5-10.1); Chloride 110 mmol/L (98-107); Creatinine, Serum 4.47 mg/dL (0.55-1.02); EST Glomerular Filtration Rate 10 mL/min (>60); Est Glom Filt Rate - Afr Amer 13 mL/min (>60); Estimated Creatinine Clearance 10.32 ml/min; Glucose 110 mg/dL (74-106); Protein, Total 5.9 g/dL (6.4-8.2); Sodium Level 139 mmol/L (136-145)
--- NOTE | 2024-07-20 09:35 | RAD_ITS ---
PROCEDURE: Fluoroscopic guided Lumbar Puncture. DATE: July 20, 2024. CLINICAL INDICATION: Encephalopathy. PHYSICIAN: Celestino Irizarry M.D. MEDICATIONS: 1% lidocaine administered subcutaneously for local anesthesia. ACCESS SITE: Lower posterior back. NEEDLE: 22-gauge spinal needle. SPECIMEN: Approximately 14 mL clear]CSF fluid. FLUOROSCOPY TIME (if supplied): (2:27) minutes/seconds. 46.9 mGy. COMPLICATIONS: None immediate. The risks, benefits, and alternatives to the procedure were explained to the patient. The specific risks of bleeding, infection, and neurovascular injury were detailed and accepted. Witnessed informed consent was obtained. The patient was placed on the fluoroscopic table in the prone position. The level for needle entry was determined and marked. The overlying skin was cleaned and prepped in the usual sterile fashion. 2% lidocaine was administered subcutaneously for local anesthesia. Under fluoroscopic guidance a 22-gauge spinal needle was advanced. The thecal sac was entered at the L3- L4 vertebral level. The inner stylet was removed. There was spontaneous flow of clear CSF fluid. The patient was placed in a reversed Trendelenburg position. Approximately 14 mL of cerebrospinal fluid was collected using gravity. The specimen was collected and submitted to the laboratory for further evaluation. The needle was withdrawn,. Hemostasis was achieved and a sterile dressing placed. The patient tolerated the procedure well without any immediate complications. The patient was placed supine with head elevated and returned to the floor in stable condition. RAD/Dx Lumbar Puncture w/IMG Guide IMPRESSION: Successful fluoroscopic-guided lumbar puncture. Electronically Signed: Celestino Irizarry MD at 10:39 EST ,
[2024-07-20] MEDS: Lidocaine 2% (5ml sdv) 5 ML VIAL.MPF INFILT (09:42)
[2024-07-20 10:10] LABS: Cytology, Body Fluid / CSF SEE PATHOLOGY REPORT
[2024-07-20] MEDS: levETIRAcetam IV 750 MG in 0.9% Normal Saline (100mL Bag) 100 ML 430 MG IV ×2 (10:27→23:45)
[2024-07-20 11:04] LABS: Glucose Spinal Fluid 65 mg/dL (40-75)
[2024-07-20] MEDS: NIFEdipine 90 MG Tablet PO (11:08)
[2024-07-20] MEDS: Metoprolol Tartrate 100 MG Tablet PO ×2 (11:08→22:04)
[2024-07-20] MEDS: Spironolactone 25 MG Tablet PO (11:08)
[2024-07-20] MEDS: Sertraline 100 MG Tablet PO (11:09)
[2024-07-20] MEDS: busPIRone 5 MG Tablet PO (11:09)
[2024-07-20] MEDS: Aspirin 81 MG TAB.CHEW PO (11:09)
[2024-07-20] MEDS: Fenofibrate 48 MG Tablet PO (11:09)
[2024-07-20] MEDS: Sertraline 50 MG Tablet PO (11:09)
[2024-07-20 11:39] LABS: Appearance CSF (character) CLEAR (Clear); CSF Color COLORLESS (Colorless); Tested Tube # 4
[2024-07-20 11:47] LABS: RBC Count, Spinal Fluid 22 /mm-3 (None seen); White Count, CSF 0 /mm-3 (0 - 5)
[2024-07-20 12:15] LABS: Body Fluid QC Type(s) BF1Q; Lymphocytes,CSF 100 % (40 - 80)
--- NOTE | 2024-07-20 15:47 | PN.HOSP_ITS ---
Reason for Visit Reason for Visit: Diagnoses Altered mental status, unspecified (07/16/24) Aphasia (07/16/24) Objective Data Objective Data Vital Signs: Vital Signs Temp Pulse Resp BP Pulse Ox O2 Del Method 97.5 F L 60 18 122/70 H 94 Room Air 07/20/24 14:21 07/20/24 14:21 07/20/24 14:21 07/20/24 14:21 07/20/24 14:21 07/20/24 14:21 Oxygen Delivery Method Room Air Weight: 154 lb 1.65 oz Body Mass Index (BMI) 29.1 Intake & Output: Intake and Output for Last 24 Hours 07/18/24 07/19/24 07/20/24 23:59 23:59 23:59 Intake Total 1035.0 / 1235.0 1055.0 / 1355.0 627.5 / 627.5 Output Total 300 / 600 700 / 900 400 / 400 Balance 735.0 / 635.0 355.0 / 455.0 227.5 / 227.5 Lab / Micro Data 07/19/24 04:15 07/20/24 05:30 Labs: Laboratory Results - last 24 hr 07/20/24 05:30: Sodium 139, Potassium 4.0, Chloride 110 H, Carbon Dioxide 20.0 L , Anion Gap 8, BUN 86 H, Creatinine 4.47 H, Estim Creat Clear Calc 10.32, Est GFR (MDRD) Af Amer 13 L, Est GFR (MDRD) Non-Af 10 L, BUN/Creatinine Ratio 19.2, Glucose 110 H, Calcium 8.9, Total Bilirubin 0.30, AST 7 L, ALT 15, Alkaline Phosphatase 83, Total Protein 5.9 L, Albumin 2.9 L, Globulin 3.0, Albumin/Globulin Ratio 1.0 07/20/24 09:51: CSF Appearance CLEAR, CSF Color COLORLESS, CSF WBC 0, CSF RBC 22 H, CSF Cell Count Tube # 4, CSF Total Cell Counted TNP, CSF Lymphocytes 100 H, CSF Comment May follow, CSF Glucose 65, CSF Total Protein 42.0 Micro: Microbiology 07/20/24 09:51 Csf, Spinal Fluid Gram Stain - Final 07/16/24 04:15 Mucosa - Nose SARS-CoV-2, Influenza & RSV (PCR) - Final Radiography Diagnostic Testing: Radiology Impression Lumbar Puncture Fluoroscopy 07/20/24 09:35 IMPRESSION: Successful fluoroscopic-guided lumbar puncture. Electronically Signed: Celestino Irizarry MD at 10:39 EST , Physical Exam Narrative Seen and examined. Patient has difficulty understanding the questions and formulating words into sentences. She is unclear for started on therapeutic questions of mentation. Physical exam General: Awake, disoriented to time and place HEENT: Atraumatic, PERRLA, EOMI, Normocephalic Oral: No Gingival or Mucosal Lesions/ Ulcerations Neck: Supple, No JVD, Negative Carotid Bruits Chest wall/Lungs: Air entry diminished in bilateral lung bases. No crepitation/rhonchi Cardiovascular: Regular rate, Regular Rhythm, Normal S1, Normal S2, systolic murmur. Abdomen: Bowel Sounds Present, Soft, Non Tender, Non-Distended : No dysuria. No renal angle tenderness. No suprapubic tenderness. Extremities: No edema, Capillary Refill Less than 3 Seconds Skin: No rashes, No breakdown Musculoskeletal: Muscle strength 4+/5 at knees and hip joints. No Tenderness to Palpation of Joints or Extremities Neurological: Cranial nerves II-XII grossly intact, DTR 2+/4. Incoherent speech. Psych/Mental Status: Flat affect. Cognitive deficit/amnesia/early dementia Assessment & Plan Assessment/Plan (1) Altered mental status: PLAN: Plan 68-year-old female was admitted with altered mental status, confusion from detention. The patient also had unwitnessed fall and was admitted for for concern of repeat bleed after initial subdural hematoma in June 2024 1. Subacute encephalopathy, with subdural hematoma in June 2024 fall: Patient is on seizure medications at this time, EEG did not show any focal seizure area but there were generalized periodic discharges noted on the EEG which indicates diffuse cortical irritability, this could be seen in metabolic states but can be concerning for intracranial pathology such as meningitis. 07/20: Patient had lumbar puncture as per neurologist recommendation. CSF micro scopic study shows total protein 42, glucose 65, RBC 22, WBC 0, lymphocytes 100%. Most other tests are pending. #2 hypokalemia-potassium supplementation was given, labs will be monitored as needed 07/20: Hypokalemia corrected #3 history of cerebral palsy-complicates care, management, recovery, and prognosis #4 chronic kidney disease stage V-patient is no longer on dialysis at this time, 07/20: BUNs/creatinine 86/4.47. Catia Designer consulted. #5 recent intracranial bleed with subdural hematoma in the right cerebral hemisphere June 18, 2024-there is no evidence on the patient's MRI this admission that this area is expanding, the appearance appears to be improving. Microbiology Past 72 Hours 07/20/24 09:51 Csf, Spinal Fluid Gram Stain - Final Laboratory Results 07/20/24 05:30: Sodium 139, Potassium 4.0, Chloride 110 H, Carbon Dioxide 20.0 L , Anion Gap 8, BUN 86 H, Creatinine 4.47 H, Estim Creat Clear Calc 10.32, Est GFR (MDRD) Af Amer 13 L, Est GFR (MDRD) Non-Af 10 L, BUN/Creatinine Ratio 19.2, Glucose 110 H, Calcium 8.9, Total Bilirubin 0.30, AST 7 L, ALT 15, Alkaline Phosphatase 83, Total Protein 5.9 L, Albumin 2.9 L, Globulin 3.0, Albumin/Globulin Ratio 1.0 07/20/24 09:51: CSF Appearance CLEAR, CSF Color COLORLESS, CSF WBC 0, CSF RBC 22 H, CSF Cell Count Tube # 4, CSF Total Cell Counted TNP, CSF Lymphocytes 100 H, CSF Comment May follow, CSF Glucose 65, CSF Total Protein 42.0, Miscellaneous Cytology Pending Clinical Impression(s) from Imaging Studies Brain CT 07/16/24 03:23 IMPRESSION: 1. Decreased size and density of the previous extra-axial hemorrhage overlying the right parietal lobe, now measuring up to 6 mm in thickness. Resolution of the previous subarachnoid hemorrhage. 2. Low-density subdural fluid collection overlying the right cerebral hemisphere measuring up to 5 mm thickness consistent with a small chronic subdural hematoma or hygroma. 3. No acute intracranial blood products. Electronically Signed: Stevo Cowart MD at 4:10 EST , Cervical Spine CT 07/16/24 03:23 IMPRESSION: 1. No acute injuries identified involving the cervical spine. 2. Degenerative changes. Electronically Signed: Stevo Cowart MD at 4:29 EST , Chest X-Ray 07/16/24 03:23 IMPRESSION: No acute findings in the chest. Electronically Signed: Stevo Cowart MD at 4:12 EST , Pelvis X-Ray 07/16/24 03:48 IMPRESSION: No acute findings in the pelvis. Brain MRI 07/16/24 06:15 IMPRESSION: 1. Subacute subdural hematoma overlying the right cerebral hemisphere with mild mass effect but no midline shift. 2. No MRI evidence of acute or subacute ischemic infarct. 3. Chronic periventricular white matter ischemic changes in both cerebral hemispheres. 4. No significant interval change when compared to CT head scan of 07/16/2024. Echocardiogram 07/16/24 06:15 Interpretation Summary The estimated ejection fraction is 65 %. No evidence for diastolic dysfunction. Trivial mitral valve insufficiency. Lumbar Puncture Fluoroscopy 07/20/24 09:35 IMPRESSION: Successful fluoroscopic-guided lumbar puncture. Charges/Coding Visit Charges Inpatient E&M: 14790 Subs Hosp L2
[2024-07-20] MEDS: Atorvastatin Calcium 40 MG Tablet PO (22:04)
[2024-07-20] MEDS: MELATONIN 3 MG TABLET PO (22:05)
[2024-07-21 02:37] VITALS: BMI 29.1
[2024-07-21 03:30] VITALS: BP 116/79; PULSE 59; RESP 16; TEMP 36.6; O2SAT 96
[2024-07-21 05:43] VITALS: BMI 29.9
[2024-07-21] MEDS: Sucralfate 1 GM Tablet PO ×2 (06:30→17:00)
[2024-07-21] MEDS: cloNIDine HCl 0.1 MG Tablet 0.3 MG PO ×3 (06:30→21:09)
--- NOTE | 2024-07-21 09:26 | CASEMGMT ---
Addendum entered by Pallavi Guadarrama 07/21/24 14:56: [facility] has obtained new precert. Pallavi Guadarrmaa DC Planning Asst. Original Note: Discharge Planning Pts precert has . Updates sent to [facility] to resubmit. Pallavi Guadarrama DC Planning Asst.
[2024-07-21 09:30] VITALS: BP 127/69; PULSE 60; RESP 16; TEMP 36.3; O2SAT 97
[2024-07-21 09:32] VITALS: BP 127/69; PULSE 60
[2024-07-21] MEDS: Fenofibrate 48 MG Tablet PO (09:32)
[2024-07-21] MEDS: Sertraline 50 MG Tablet PO (09:32)
[2024-07-21] MEDS: NIFEdipine 90 MG Tablet PO (09:32)
[2024-07-21] MEDS: Sertraline 100 MG Tablet PO (09:32)
[2024-07-21] MEDS: Metoprolol Tartrate 100 MG Tablet PO ×2 (09:32→21:09)
[2024-07-21] MEDS: Spironolactone 25 MG Tablet PO (09:32)
[2024-07-21] MEDS: levETIRAcetam IV 750 MG in 0.9% Normal Saline (100mL Bag) 100 ML 430 MG IV ×2 (09:32→21:09)
[2024-07-21] MEDS: Aspirin 81 MG TAB.CHEW PO (09:33)
[2024-07-21] MEDS: busPIRone 5 MG Tablet PO (09:33)
[2024-07-21 11:37] LABS: Albumin, Serum 3.1 g/dL (3.2-5.0); BUN 90 mg/dL (7-18); BUN/Creat Ratio 21.4 RATIO (10-20); Calcium,Total 8.7 mg/dL (8.5-10.1); Chloride 110 mmol/L (98-107); Creatinine, Serum 4.21 mg/dL (0.55-1.02); EST Glomerular Filtration Rate 11 mL/min (>60); Est Glom Filt Rate - Afr Amer 13 mL/min (>60); Estimated Creatinine Clearance 11.11 ml/min; Glucose 191 mg/dL (74-106); Phosphorus 5.7 mg/dL (2.5-4.9); Potassium 3.8 mmol/L (3.5-5.1); Sodium Level 138 mmol/L (136-145)
--- NOTE | 2024-07-21 11:48 | CON.PCM.RE_ITS ---
<Statement entered by Maria Ines Guaman MD - 07/21/24 22:27> I have personally performed a face to face assessment of the patient and have reviewed the ELLIE Note. Consult for LUKE on CKD. Patient is known to our service both at [facility] and with her recent admission at [facility]. The patient was admitted at [facility] Between 06/18/2024 until 06/24/2024 after a fall resulting in subdural hematoma. Hospital course was complicated by ESBL E. coli UTI as well. During this admission, the patient was seen by our service. She was taken off of hemodialysis during this admission and TDC was removed on 06/24/2024. Her last hemodialysis treatment dialysis was on 06/17/2024. We are asked to see the patient during this admission because of rising serum creatinine. The patient denies chest pain, shortness of breath at rest, or nausea. There is no edema of the lower extremities. Her appetite has been fair. At this point, there is no urgent need to restart dialysis. However, the patient was told that if there is no reversible causes for LUKE, it is possible that we may need to restart dialysis. For now, we will give a trial of IV fluid to see if there is any component of prerenal LUKE. Will recheck renal function, volume status, acid-base, and electrolytes again tomorrow. Donte Sahu MD Documented by User: Winifred Nickerson, [employer] 07/21/24 12:18 Assessment & Plan Assessment/Plan (1) LUKE (acute kidney injury): (2) Altered mental status: PLAN: Plan This is a pleasant 69-year-old female with past medical history significant for recent intracranial bleed with subdural hematoma and right cerebral hemisphere in June 2024 status post fall (hospitalized at [facility]), history of cerebral palsy, hypertension, hyperlipidemia, GERD with history of GI bleed, A- fib, dialysis requiring acute kidney injury with unknown baseline serum creatinine who was admitted to the hospital after fall. Nephrology consulted as patient has rising serum creatinine with recent history of dialysis requiring LUKE secondary to ATN. Patient was started on hemodialysis when hospitalized in [facility] mid April 2024. Patient was receiving hemodialysis from April 2024 to mid June 2024. Her last hemodialysis session was on 06/17, tunneled hemodialysis catheter has been removed. Patient's baseline creatinine is unknown. In 2018 baseline creatinine had been ranging around 1.1 to 1.3 mg/dL. There is a gap in lab work until recently. With this current hospitalization on 07/16 creatinine 3.06, creatinine was 4.47 yesterday and today her creatinine is 4.21. Reason for rise in serum creatinine unknown, there has been no recent contrast exposure, patient appears near euvolemic to slightly hypovolemic on exam and patient is making urine. At this time there is no acute indication for renal replacement therapy today. Will stop Aldactone and give gentle trial of IV fluids. Patient has a history of urinary retention and will check bladder scan postvoid to rule out urinary retention contributing to LUKE. There has been no significant documented hypotensive episodes but current blood pressures are low normal. No recent YOLY or ARB's. Had lengthy discussion today with patient that if no significant improvement in renal function she may need renal placement therapy again. Questions were answered and patient is in agreement for hemodialysis if needed. Will also check Cystatin C given patient's low muscle mass. Further orders forthcoming as hospitalization evolves, thank you for allowing us participate in the care of Ms. Haddad. HPI Consult Data Date of Consult: 07/21/24 HPI Narrative HPI Narrative: SUAD HADDAD, is a 69 F who was brought to the emergency room on 07/16 for evaluation of fall and aphasia. Patient had CT of C-spine which did not show any acute injuries, chest x-ray no acute findings, pelvis x-ray no acute findings. Patient has history of traumatic acute brain bleed status post fall in which she had been receiving care at [facility] about a month ago. CT brain in ER did not show any new acute findings. Nephrology consulted as patient has rising serum creatinine. Patient is known to our group after she developed dialysis requiring acute kidney injury and she was receiving dialysis 3 times weekly at [facility] [place]. Patient sustained dialysis requiring acute kidney injury after hospitalized in [facility] for severe sepsis, non-STEMI, metabolic encephalopathy and urine retention. LUKE was felt to be secondary to ATN. Baseline serum creatinine was unknown at that time. Patient was discharged from hospital to [facility] in and then started dialysis at the kidney center mid April 2024. She was monitored for potential renal recovery. When patient was transferred to [facility] in June renal function improved enough that patient was able to come off hemodialysis; her tunneled hemodialysis catheter was removed. Her creatinine at time of discharge from [facility] was 3.18 on 06/24. Patient's last dialysis at kidney center was 06/17; she was admitted to [facility] on 06/18 and never received dialysis at [facility]. Patient is alert but having difficult time recalling recent events. She reports appetite is poor, denies any nausea or vomiting. Patient reports she does have urine output, denies dysuria. [facility] Medical History (Updated 07/21/24 @ 12:00 by JOVANY Laurent) PAF (paroxysmal atrial fibrillation) ESRD on dialysis Traumatic subarachnoid hemorrhage without loss of consciousness, subsequent encounter GERD (gastroesophageal reflux disease) Osteoarthritis Hyperlipidemia History of ESBL E. coli infection Post-menopausal CAD (coronary artery disease) Cerebral palsy High cholesterol Hypertension Home Medications ?Medication ?Instructions ?Recorded ?Last Taken ?Type clonidine HCl 0.3 mg tablet 0.3 mg PO Q8H BP 07/25/23 Unknown History ergocalciferol (vitamin D2) 1,250 50,000 unit PO QWEEK supplement 07/25/23 Unknown History mcg (50,000 unit) capsule (Vitamin D2) metoprolol tartrate 100 mg tablet 100 mg PO Q12H BP 07/25/23 Unknown History spironolactone 25 mg tablet 25 mg PO DAILY DIURESIS 07/25/23 Unknown History pantoprazole 40 mg tablet,delayed 40 mg PO DAILY #60 tabs 12/03/23 Unknown Rx release (Protonix) sucralfate 1 gram tablet 1 g PO BID 12/17/23 Unknown History atorvastatin 40 mg tablet 40 mg PO DAILY 07/16/24 Unknown History buspirone 5 mg tablet 5 mg PO DAILY 07/16/24 Unknown History fenofibrate micronized 67 mg 67 mg PO DAILY 07/16/24 Unknown History capsule magnesium oxide 200 mg PO BID 07/16/24 Unknown History melatonin 3 mg capsule 3 mg PO QHS 07/16/24 Unknown History nifedipine 90 mg tablet,extended 90 mg PO DAILY 07/16/24 Unknown History release nitroglycerin 0.4 mg sublingual 0.4 mg sublingual Q5M PRN chest 07/16/24 Unknown History tablet pain sertraline 100 mg tablet 100 mg PO DAILY 07/16/24 Unknown History sertraline 50 mg tablet 50 mg PO DAILY 07/16/24 Unknown History vit B comp no.1-yxqmf-T-biotin PO 07/16/24 Unknown History Allergy/AdvReac Type Severity Reaction Status Date / Time No Known Allergies Allergy Verified 07/16/24 03:07 Family History (Updated 07/16/24 @ 05:[address] Hawa Butler MD) Mother Heart disease Father Heart disease Surgical History (Updated 07/16/24 @ 05:[address] Hawa Butler MD) S/P endoscopy Social History (Updated 07/16/24 @ 05:[address] Hawa Butler MD) household members: none housing: snf Smoking Status: Never smoker alcohol intake: never substance use type: does not use ROS ROS Narrative As in HPI Physical Exam Narrative Alert and oriented, no apparent distress, having difficult time recalling recent events S1, S2, RRR Lungs clear. No wheezes, rhonchi or rales noted abdomen soft, nontender No edema Lab / Micro Data 07/19/24 04:15 07/21/24 11:00 Labs: Laboratory Results - last 24 hr 07/20/24 09:51: CSF Lymphocytes 100 H, Miscellaneous Cytology SEE PATHOLOGY REPORT 07/21/24 11:00: Sodium 138, Potassium 3.8, Chloride 110 H, Carbon Dioxide 17.0 L , BUN 90 H, Creatinine 4.21 H, Estim Creat Clear Calc 11.11, Est GFR (MDRD) Af Amer 13 L, Est GFR (MDRD) Non-Af 11 L, BUN/Creatinine Ratio 21.4 H, Glucose 191 H, Calcium 8.7, Phosphorus 5.7 H, Albumin 3.1 L Micro: Microbiology 07/20/24 09:51 Csf, Spinal Fluid Gram Stain - Final 07/20/24 09:51 Csf, Spinal Fluid CSF Culture - Preliminary No growth in 24 hours. Final to follow. Documented by User: Dr. Maria Ines Guaman MD 07/21/24 22:27 Assessment & Plan Assessment/Plan (1) LUKE (acute kidney injury): (2) Altered mental status: HPI Consult Data Date of Consult: 07/21/24 [facility] Medical History (Updated 07/21/24 @ 12:00 by Winifred Nickerson, [employer]IVER-C) PAF (paroxysmal atrial fibrillation) ESRD on dialysis Traumatic subarachnoid hemorrhage without loss of consciousness, subsequent encounter GERD (gastroesophageal reflux disease) Osteoarthritis Hyperlipidemia History of ESBL E. coli infection Post-menopausal CAD (coronary artery disease) Cerebral palsy High cholesterol Hypertension Home Medications ?Medication ?Instructions ?Recorded ?Last Taken ?Type clonidine HCl 0.3 mg tablet 0.3 mg PO Q8H BP 07/25/23 Unknown History ergocalciferol (vitamin D2) 1,250 50,000 unit PO QWEEK supplement 07/25/23 Unknown History mcg (50,000 unit) capsule (Vitamin D2) metoprolol tartrate 100 mg tablet 100 mg PO Q12H BP 07/25/23 Unknown History spironolactone 25 mg tablet 25 mg PO DAILY DIURESIS 07/25/23 Unknown History pantoprazole 40 mg tablet,delayed 40 mg PO DAILY #60 tabs 12/03/23 Unknown Rx release (Protonix) sucralfate 1 gram tablet 1 g PO BID 12/17/23 Unknown History atorvastatin 40 mg tablet 40 mg PO DAILY 07/16/24 Unknown History buspirone 5 mg tablet 5 mg PO DAILY 07/16/24 Unknown History fenofibrate micronized 67 mg 67 mg PO DAILY 07/16/24 Unknown History capsule magnesium oxide 200 mg PO BID 07/16/24 Unknown History melatonin 3 mg capsule 3 mg PO QHS 07/16/24 Unknown History nifedipine 90 mg tablet,extended 90 mg PO DAILY 07/16/24 Unknown History release nitroglycerin 0.4 mg sublingual 0.4 mg sublingual Q5M PRN chest 07/16/24 Unknown History tablet pain sertraline 100 mg tablet 100 mg PO DAILY 07/16/24 Unknown History sertraline 50 mg tablet 50 mg PO DAILY 07/16/24 Unknown History vit B comp no.9-banlr-Q-biotin PO 07/16/24 Unknown History Allergy/AdvReac Type Severity Reaction Status Date / Time No Known Allergies Allergy Verified 07/16/24 03:07 Family History (Updated 07/16/24 @ 05:[address] Hawa Butler MD) Mother Heart disease Father Heart disease Surgical History (Updated 07/16/24 @ 05:[address] Hawa Butler MD) S/P endoscopy Social History (Updated 07/16/24 @ 05:[address] Hawa Butler MD) household members: none housing: snf Smoking Status: Never smoker alcohol intake: never substance use type: does not use Lab / Micro Data 07/19/24 04:15 07/21/24 11:00
[2024-07-21] MEDS: Sodium Bicarbonate 650 MG Tablet PO ×3 (13:28→21:09)
[2024-07-21] MEDS: 0.9% Normal Saline (1000mL) 1,000 ML 60 ML IV (13:28)
--- NOTE | 2024-07-21 13:33 | PCM.PN.HOSP ---
Reason for Visit Reason for Visit: Diagnoses Altered mental status, unspecified (07/16/24) Aphasia (07/16/24) Objective Data Objective Data Vital Signs: Vital Signs Temp Pulse Resp BP Pulse Ox O2 Del Method 97.4 F L 60 16 127/69 H 97 Room Air 07/21/24 09:30 07/21/24 09:32 07/21/24 09:30 07/21/24 09:32 07/21/24 09:30 07/21/24 09:30 Oxygen Delivery Method Room Air Weight: 158 lb 4.67 oz Body Mass Index (BMI) 29.9 Intake & Output: Intake and Output for Last 24 Hours 07/19/24 07/20/24 07/21/24 23:59 23:59 23:59 Intake Total 1055.0 / 1355.0 867.5 / 1375.0 615.0 / 615.0 Output Total 700 / 900 400 / 400 Balance 355.0 / 455.0 467.5 / 975.0 615.0 / 615.0 Lab / Micro Data 07/19/24 04:15 07/21/24 11:00 Labs: Laboratory Results - last 24 hr 07/20/24 09:51: Miscellaneous Cytology SEE PATHOLOGY REPORT 07/21/24 11:00: Sodium 138, Potassium 3.8, Chloride 110 H, Carbon Dioxide 17.0 L, BUN 90 H, Creatinine 4.21 H, Estim Creat Clear Calc 11.11, Est GFR (MDRD) Af Amer 13 L, Est GFR (MDRD) Non-Af 11 L, BUN/Creatinine Ratio 21.4 H, Glucose 191 H, Calcium 8.7, Phosphorus 5.7 H, Albumin 3.1 L Micro: Microbiology 07/20/24 09:51 Csf, Spinal Fluid Gram Stain - Final 07/20/24 09:51 Csf, Spinal Fluid CSF Culture - Preliminary No growth in 24 hours. Final to follow. 07/16/24 04:15 Mucosa - Nose SARS-CoV-2, Influenza & RSV (PCR) - Final Physical Exam Narrative Seen and examined. No significant change from yesterday. Patient has difficulty understanding the questions and formulating words into sentences. She is unclear for started on therapeutic questions of mentation. Discussed with the forest and conservation worker. Had BM today. Physical exam General: Awake, disoriented to time and place. HEENT: Atraumatic, PERRLA, EOMI, Normocephalic Oral: No Gingival or Mucosal Lesions/ Ulcerations Neck: Supple, No JVD, Negative Carotid Bruits Chest wall/Lungs: Air entry diminished in bilateral lung bases. No crepitation/rhonchi Cardiovascular: Regular rate, Regular Rhythm, Normal S1, Normal S2, systolic murmur. Abdomen: Bowel Sounds Present, Soft, Non Tender, Non-Distended : No dysuria. No renal angle tenderness. No suprapubic tenderness. Extremities: No edema, Capillary Refill Less than 3 Seconds Skin: No rashes, No breakdown Musculoskeletal: Muscle strength 4+/5 at knees and hip joints. No Tenderness to Palpation of Joints or Extremities Neurological: Cranial nerves II-XII grossly intact, DTR 2+/4. Incoherent speech. Psych/Mental Status: Flat affect. Cognitive deficit/amnesia/early dementia Assessment & Plan Assessment/Plan (1) Altered mental status: PLAN: Plan 68-year-old female was admitted with altered mental status, confusion from group home. The patient also had unwitnessed fall and was admitted for for concern of repeat bleed after initial subdural hematoma in June 2024 1. Subacute encephalopathy, with subdural hematoma in June 2024 fall: Patient is on seizure medications at this time, EEG did not show any focal seizure area but there were generalized periodic discharges noted on the EEG which indicates diffuse cortical irritability, this could be seen in metabolic states but can be concerning for intracranial pathology such as meningitis. 07/20: Patient had lumbar puncture as per neurologist recommendation. CSF micro scopic study shows total protein 42, glucose 65, RBC 22, WBC 0, lymphocytes 100%. Most other tests are pending. 07/21: CSF Gram stain negative for more than 24 hours. Cause of global amnesia remains unclear but possible differential might be toxic metabolic encephalopathy. Patient might be encephalopathic from uremia. #2 hypokalemia-potassium supplementation was given, labs will be monitored as needed 07/20: Hypokalemia corrected #3 history of cerebral palsy-complicates care, management, recovery, and prognosis #4 chronic kidney disease stage V-patient is no longer on dialysis at this time, 07/20: BUNs/creatinine 86/4.47. [place] Clerk consulted. 07/21: BUN/creatinine 90/4.21. Discussed with the forest and conservation worker. She had temporary dialysis in recent past and there is high probability that she might progress that will need dialysis. #5 recent intracranial bleed with subdural hematoma in the right cerebral hemisphere June 18, 2024-there is no evidence on the patient's MRI this admission that this area is expanding, the appearance appears to be improving. Microbiology Past 72 Hours 07/20/24 09:51 Csf, Spinal Fluid Gram Stain - Final 07/20/24 09:51 Csf, Spinal Fluid CSF Culture - Preliminary No growth in 24 hours. Final to follow. Laboratory Results 07/20/24 09:51: Miscellaneous Cytology SEE PATHOLOGY REPORT 07/21/24 11:00: Sodium 138, Potassium 3.8, Chloride 110 H, Carbon Dioxide 17.0 L, BUN 90 H, Creatinine 4.21 H, Estim Creat Clear Calc 11.11, Est GFR (MDRD) Af Amer 13 L, Est GFR (MDRD) Non-Af 11 L, BUN/Creatinine Ratio 21.4 H, Glucose 191 H, Calcium 8.7, Phosphorus 5.7 H, Albumin 3.1 L Clinical Impression(s) from Imaging Studies Brain CT 07/16/24 03:23 IMPRESSION: 1. Decreased size and density of the previous extra-axial hemorrhage overlying the right parietal lobe, now measuring up to 6 mm in thickness. Resolution of the previous subarachnoid hemorrhage. 2. Low-density subdural fluid collection overlying the right cerebral hemisphere measuring up to 5 mm thickness consistent with a small chronic subdural hematoma or hygroma. 3. No acute intracranial blood products. Electronically Signed: Stevo Cowart MD at 4:10 EST Reading Location ID and State: [facility] / [place] Tel , Service support , Cervical Spine CT 07/16/24 03:23 IMPRESSION: 1. No acute injuries identified involving the cervical spine. 2. Degenerative changes. Electronically Signed: Stevo Cowart MD at 4:29 EST , Chest X-Ray 07/16/24 03:23 IMPRESSION: No acute findings in the chest. Electronically Signed: Stevo Cowart MD at 4:12 EST , Pelvis X-Ray 07/16/24 03:48 IMPRESSION: No acute findings in the pelvis. Brain MRI 07/16/24 06:15 IMPRESSION: 1. Subacute subdural hematoma overlying the right cerebral hemisphere with mild mass effect but no midline shift. 2. No MRI evidence of acute or subacute ischemic infarct. 3. Chronic periventricular white matter ischemic changes in both cerebral hemispheres. 4. No significant interval change when compared to CT head scan of 07/16/2024. Echocardiogram 07/16/24 06:15 Interpretation Summary The estimated ejection fraction is 65 %. No evidence for diastolic dysfunction. Trivial mitral valve insufficiency. Lumbar Puncture Fluoroscopy 07/20/24 09:35 IMPRESSION: Successful fluoroscopic-guided lumbar puncture. Charges/Coding Visit Charges Inpatient E&M: 14992 Subs Hosp L2
[2024-07-21 13:35] VITALS: BP 128/78; PULSE 56; RESP 16; TEMP 36.4; O2SAT 97
[2024-07-21 14:46] VITALS: BMI 29.9
[2024-07-21 21:00] VITALS: BP 126/73; PULSE 60; RESP 16; TEMP 36.6; O2SAT 97
[2024-07-21 21:09] VITALS: BP 126/73; PULSE 60
[2024-07-21] MEDS: MELATONIN 3 MG TABLET PO (21:09)
[2024-07-21] MEDS: Atorvastatin Calcium 40 MG Tablet PO (21:09)
[2024-07-22 01:52] VITALS: BMI 29.9
[2024-07-22 03:50] VITALS: BP 115/64; PULSE 59; RESP 16; TEMP 36.6; O2SAT 96
[2024-07-22 05:26] VITALS: BMI 29.9
[2024-07-22] MEDS: Sucralfate 1 GM Tablet PO (06:15)
[2024-07-22] MEDS: cloNIDine HCl 0.1 MG Tablet 0.3 MG PO ×2 (06:15→14:18)
[2024-07-22 06:19] LABS: Absolute Lymphocyte Count 1.91 X10^3/uL (0.83-4.51); Absolute Neutrophil Count 6.9 X10^3/uL (2.0-7.7); Basophil# 0.07 X10^3/uL; Basophil% 0.7 % (0-1); Eosinophils% 3.9 % (0-5); Hematocrit 30.3 % (37-47); Hemoglobin 9.3 g/dL (12.0-15.0); Lymphocyte # 1.91 X10^3/ul (0.83-4.51); Lymphocyte % 18.8 % (19-41); Mean Corp Hgb Conc 30.7 g/dL (32-36); Mean Corpuscular Hgb 29.4 pg (27.0-32.0); Mean Corpuscular Volume 95.9 fL (81-99); Mean Platelet Vol. 10.7 fl (6.2-12.0); Monocyte% 7.9 % (0-10); NRBC Flagged by Analyzer 0 % (0-5); Platelet Count 260 K/mm3 (150-450); RBC Distribution Width CV 14.4 % (11.6-14.6); RBC Distribution Width SD 50.7 fl (35.1-43.9); Red Blood Count 3.16 M/mm3 (4.2-5.4); White Blood Count 10.2 K/mm3 (4.4-11.0)
[2024-07-22 07:01] LABS: Albumin, Serum 2.9 g/dL (3.2-5.0); BUN 86 mg/dL (7-18); BUN/Creat Ratio 22.4 RATIO (10-20); Calcium,Total 8.6 mg/dL (8.5-10.1); Chloride 114 mmol/L (98-107); Creatinine, Serum 3.84 mg/dL (0.55-1.02); EST Glomerular Filtration Rate 12 mL/min (>60); Est Glom Filt Rate - Afr Amer 15 mL/min (>60); Estimated Creatinine Clearance 12.18 ml/min; Glucose 100 mg/dL (74-106); Phosphorus 6.2 mg/dL (2.5-4.9); Potassium 3.9 mmol/L (3.5-5.1); Sodium Level 142 mmol/L (136-145)
[2024-07-22 09:15] VITALS: BP 133/73; PULSE 61; RESP 18; TEMP 36.5; O2SAT 94
[2024-07-22] MEDS: levETIRAcetam IV 750 MG in 0.9% Normal Saline (100mL Bag) 100 ML 430 MG IV (09:15)
[2024-07-22] MEDS: 0.9% Saline Lock 10 ML Syringe IV (09:17)
[2024-07-22 09:18] VITALS: PULSE 61
[2024-07-22] MEDS: Aspirin 81 MG TAB.CHEW PO (09:18)
[2024-07-22] MEDS: Metoprolol Tartrate 100 MG Tablet PO (09:18)
[2024-07-22] MEDS: busPIRone 5 MG Tablet PO (09:18)
[2024-07-22] MEDS: Sodium Bicarbonate 650 MG Tablet PO ×2 (09:18→14:18)
[2024-07-22] MEDS: NIFEdipine 90 MG Tablet PO (09:19)
[2024-07-22] MEDS: Fenofibrate 48 MG Tablet PO (09:19)
[2024-07-22] MEDS: Sertraline 100 MG Tablet PO (09:19)
[2024-07-22] MEDS: Sertraline 50 MG Tablet PO (09:19)
--- NOTE | 2024-07-22 10:08 | PCM.TXEXTCAR ---
Diet Diet Order/Speech Therapy: 07/16/24 06:16 Diet: Cardiac - Heart Healthy Food consistency:: Mechanical (Minced/Moist) Liquid Consistency:: Regular/Thin Routine Orders/Code Status Suppository Type: Dulcolax 10mg Suppository Frequency: Daily PRN DC O2, CPAP, BIPAP needs Additional Home O2 Discharge instructions: No Wound(s) MID LOWER BACK: Wound Type: Puncture Therapies Extremity Affected:: Bilateral Lower Physical Therapy: Eval and Treat Occupational Therapy: Eval and Treat Speech Therapy: Eval and Treat Problem/Diagnosis (1) LUKE (acute kidney injury): Status: Acute Code(s): N17.9 - Acute kidney failure, unspecified (2) Altered mental status: Status: Acute Code(s): R41.82 - Altered mental status, unspecified Plan 68-year-old female was admitted with altered mental status, confusion from longterm. The patient also had unwitnessed fall and was admitted for for concern of repeat bleed after initial subdural hematoma in June 2024 1. Subacute encephalopathy, with subdural hematoma in June 2024 fall: Patient is on seizure medications at this time, EEG did not show any focal seizure area but there were generalized periodic discharges noted on the EEG which indicates diffuse cortical irritability, this could be seen in metabolic states but can be concerning for intracranial pathology such as meningitis. 07/20: Patient had lumbar puncture as per neurologist recommendation. CSF micro scopic study shows total protein 42, glucose 65, RBC 22, WBC 0, lymphocytes 100%. Most other tests are pending. 07/21: CSF Gram stain negative for more than 24 hours. Cause of global amnesia remains unclear but possible differential might be toxic metabolic encephalopathy. Patient might be encephalopathic from uremia. 07/22: CSF gram-negative more than 48 hours. Patient discharged on Keppra 250 mg twice daily, adjusted to the creatinine clearance. Discussed with the neurologist. #2 hypokalemia-potassium supplementation was given, labs will be monitored as needed 07/20: Hypokalemia corrected #3 history of cerebral palsy-complicates care, management, recovery, and prognosis 07/22: Chronic cognitive issues, amnesia #4 chronic kidney disease stage V-patient is no longer on dialysis at this time, 07/20: BUNs/creatinine 86/4.47. Proposal Writer consulted. 07/21: BUN/creatinine 90/4.21. Discussed with the miter saw operator. She had temporary dialysis in recent past and there is high probability that she might progress that will need dialysis. 07/22: Improvement in the creatinine. BUN/creatinine 86/3.84. Discussed with the miter saw operator. Advised to follow-up in [place] [facility] office in 1 week. No nephrotoxic medications including diuretic or Lasix #5. Recent intracranial bleed with subdural hematoma in the right cerebral hemisphere June 18, 2024-there is no evidence on the patient's MRI this admission that this area is expanding, the appearance appears to be improving. Microbiology Past 72 Hours 07/20/24 09:51 Csf, Spinal Fluid Gram Stain - Final 07/20/24 09:51 Csf, Spinal Fluid CSF Culture - Preliminary No growth in 24 hours. Final to follow. Laboratory Results 07/20/24 09:51: CSF Comment Pending 07/22/24 05:46: WBC 10.2, RBC 3.16 L, Hgb 9.3 L, Hct 30.3 L, MCV 95.9, MCH 29.4, MCHC 30.7 L, RDW Std Deviation 50.7 H, RDW Coeff of Rory 14.4, Plt Count 260, MPV 10.7, Immature Gran % (Auto) 0.700, Neut % (Auto) 68.0, Lymph % (Auto) 18.8 L, Clark % (Auto) 7.9, Eos % (Auto) 3.9, Baso % (Auto) 0.7, Absolute Neuts (auto) 6.9, Absolute Lymphs (auto) 1.91, Nucleated RBC % 0, Sodium 142, Potassium 3.9, Chloride 114 H, Carbon Dioxide 19.0 L, BUN 86 H, Creatinine 3.84 H, Estim Creat Clear Calc 12.18, Est GFR (MDRD) Af Amer 15 L, Est GFR (MDRD) Non-Af 12 L, BUN/Creatinine Ratio 22.4 H, Glucose 100, Calcium 8.6, Phosphorus 6.2 H, Albumin 2.9 L, Miscellaneous Test Pending Clinical Impression(s) from Imaging Studies Brain CT 07/16/24 03:23 IMPRESSION: 1. Decreased size and density of the previous extra-axial hemorrhage overlying the right parietal lobe, now measuring up to 6 mm in thickness. Resolution of the previous subarachnoid hemorrhage. 2. Low-density subdural fluid collection overlying the right cerebral hemisphere measuring up to 5 mm thickness consistent with a small chronic subdural hematoma or hygroma. 3. No acute intracranial blood products. Electronically Signed: Stevo Cowart MD at 4:10 EST , Cervical Spine CT 07/16/24 03:23 IMPRESSION: 1. No acute injuries identified involving the cervical spine. 2. Degenerative changes. Electronically Signed: Stevo Cowart MD at 4:29 EST , Chest X-Ray 07/16/24 03:23 IMPRESSION: No acute findings in the chest. Electronically Signed: Stevo Cowart MD at 4:12 EST , Pelvis X-Ray 07/16/24 03:48 IMPRESSION: No acute findings in the pelvis. Brain MRI 07/16/24 06:15 IMPRESSION: 1. Subacute subdural hematoma overlying the right cerebral hemisphere with mild mass effect but no midline shift. 2. No MRI evidence of acute or subacute ischemic infarct. 3. Chronic periventricular white matter ischemic changes in both cerebral hemispheres. 4. No significant interval change when compared to CT head scan of 07/16/2024. Echocardiogram 07/16/24 06:15 Interpretation Summary The estimated ejection fraction is 65 %. No evidence for diastolic dysfunction. Trivial mitral valve insufficiency. Lumbar Puncture Fluoroscopy 07/20/24 09:35 IMPRESSION: Successful fluoroscopic-guided lumbar puncture. Allergies/Procedures Done in Hospital Allergies No Known Allergies Allergy (Verified 07/16/24 03:07) Type of Care/Length of Stay Estimated LOS: Convalescent Care Less Than 30 days Type of Care Needed: Skilled Rehab Potential: Good Prognosis: Good Additional Orders/Day of Discharge Day of Discharge: 07/22/24 Dietary and Speech Recommendations Dietitian Recommendations/Changes: Continue cardiac diet per RPG DEVELOPER recommendation for consistency/texture. Will monitor weight, as available. Reviewed and approved by Josephine Greenwood RD, LD. Discharge Plan Admission Admit Date/Time: 07/16/24 05:29 Primary Reason for Your Visit: Altered mental status, CKD stage V. LUKE resolved. Attending Provider: Adams Nieto Primary Care Provider: Phuc Barker Consulting Providers: Patrice Penny; Dylan Wynne; Kaylee Dior; Cynthia Snyder; Joana Schneider; Conor Cortes; Gabi Glaser; Alex Talley; Nathaniel Lua; Willis Huang; Scarlet Dudley; Tony Schaffer; Magui Dee; Kiana Goodwin; Karma Rawls; Diego Anguiano; Wai Wheatley; Phan Alexander; Vernell Segovia; Rodolfo Chapman; Hawa Butler; Cha Peace; Doe Jeffery; Ryan Torrez; NEGRA DICKEY; Martin Rowan; Gogo Asif; Alejo Kunz; Maria Ines Guaman Discharge Orders/Prescriptions Prescriptions: New acetaminophen 325 mg Tablet 650 mg PO Q4H PRN PRN (Reason: Fever, pain 1-06/11) Qty: 0 0RF sennosides-docusate sodium [Stimulant Laxative Plus] 8.6-50 mg Tablet 2 tab PO BID Qty: 0 0RF levetiracetam 250 mg Tablet 250 mg PO BID Qty: 0 0RF sodium bicarbonate 650 mg Tablet 650 mg PO 4X/DAY Qty: 0 0RF Continued metoprolol tartrate 100 mg tablet 100 mg PO Q12H Patient Comments: TAKE 1 TABLET BY MOUTH TWICE DAILY clonidine HCl 0.3 mg tablet 0.3 mg PO Q8H Patient Comments: TAKE 1 TABLET BY MOUTH THREE TIMES DAILY ergocalciferol (vitamin D2) [Vitamin D2] 1,250 mcg (50,000 unit) capsule 50,000 unit PO QWEEK atorvastatin 40 mg tablet 40 mg PO DAILY buspirone 5 mg tablet 5 mg PO DAILY melatonin 3 mg capsule 3 mg PO QHS nifedipine 90 mg tablet extended release 90 mg PO DAILY fenofibrate micronized 67 mg capsule 67 mg PO DAILY nitroglycerin 0.4 mg tablet, sublingual 0.4 mg sublingual Q5M PRN (Reason: chest pain) vit B comp no.7-isedw-N-biotin [Zenaida-Marcella Rx] PO Changed sertraline 100 mg tablet 50 mg PO DAILY 30 Days Qty: 0 0RF magnesium oxide 200 mg magnesium tablet 200 mg PO DAILY 30 Days Qty: 0 0RF Discontinued sucralfate 1 gram tablet 1 g PO BID spironolactone 25 mg tablet 25 mg PO DAILY Patient Comments: TAKE 1 TABLET BY MOUTH EVERY DAY sertraline 50 mg tablet 50 mg PO DAILY pantoprazole [Protonix] 40 mg tablet,delayed release (DR/EC) 40 mg PO DAILY Qty: 60 0RF Referrals / Follow Up: Bonnie Simmons MD [Med Staff - Consulting] - Within 1 Week Awa Hargrove DO [Med Staff - Active Staff] - Phuc Barker MD [Primary Care Provider] - Disposition Disposition (needs filled in before D/C Order can be placed): [facility] Facility
--- NOTE | 2024-07-22 13:17 | DS.PCM_ITS ---
Providers Date of Admission: 07/16/24 Date of Discharge: 07/22/24 Primary Care Physician: Dr. Phuc Barker MD Consultations 07/16/24 04:41 Neurology [Consult: Tele-Neurology] NOW Consulting Provider: [facility] Reason for Consult: Altered mental status EMERGENT Consult: Yes MD Notified: Yes Date Notified: 07/16/24 Time Notified: 04:42 Method of Notification: ED Physician Initiated Method of Consult:: Telemedicine Nursing Unit Staff Notify [facility] of Tele-Neurology Consult: Yes 07/16/24 06:15 Consult: Tele-Neurology Routine Consulting Provider: [facility] Reason for Consult: encephalopathy EMERGENT Consult: No MD Notified: Yes Date Notified: 07/16/24 Time Notified: 05:32 Method of Notification: Verbal Nursing Unit Staff Notify [facility] of Tele-Neurology Consult: Yes 07/20/24 15:57 Consult: Nephrology Routine Consulting Provider: Maria Ines Guaman Reason for Consult: CKD Stage 5, was on dialysis EMERGENT Consult: No MD Notified: Yes Date Notified: 07/20/24 Time Notified: 15:57 Method of Notification: Verbal Reason For Visit: ENCEPHALOPATHY, APHASIS, ? CVA Diagnosis Discharge Diagnosis (1) LUKE (acute kidney injury): Status: Acute Code(s): N17.9 - Acute kidney failure, unspecified (2) Altered mental status: Status: Acute Code(s): R41.82 - Altered mental status, unspecified Plan 68-year-old female was admitted with altered mental status, confusion from fpc. The patient also had unwitnessed fall and was admitted for for concern of repeat bleed after initial subdural hematoma in June 2024 1. Subacute encephalopathy, with subdural hematoma in June 2024 fall: Patient is on seizure medications at this time, EEG did not show any focal seizure area but there were generalized periodic discharges noted on the EEG which indicates diffuse cortical irritability, this could be seen in metabolic states but can be concerning for intracranial pathology such as meningitis. 07/20: Patient had lumbar puncture as per neurologist recommendation. CSF micro scopic study shows total protein 42, glucose 65, RBC 22, WBC 0, lymphocytes 100%. Most other tests are pending. 07/21: CSF Gram stain negative for more than 24 hours. Cause of global amnesia remains unclear but possible differential might be toxic metabolic encephalopathy. Patient might be encephalopathic from uremia. 07/22: CSF gram-negative more than 48 hours. Patient discharged on Keppra 250 mg twice daily, adjusted to the creatinine clearance. Discussed with the neurologist. As acute or subacute stroke was ruled out therefore baby aspirin discontinued. #2 hypokalemia-potassium supplementation was given, labs will be monitored as needed 07/20: Hypokalemia corrected #3 history of cerebral palsy-complicates care, management, recovery, and prognosis 07/22: Chronic cognitive issues, amnesia #4 chronic kidney disease stage V-patient is no longer on dialysis at this time, 07/20: BUNs/creatinine 86/4.47. Medical Device [employer] consulted. 07/21: BUN/creatinine 90/4.21. Discussed with the physician scientist. She had temporary dialysis in recent past and there is high probability that she might progress that will need dialysis. 07/22: Improvement in the creatinine. BUN/creatinine 86/3.84. Discussed with the physician scientist. Advised to follow-up in [facility] office in 1 week. No nephrotoxic medications including diuretic or Lasix. #5. Recent intracranial bleed with subdural hematoma in the right cerebral hemisphere June 18, 2024-there is no evidence on the patient's MRI this admission that this area is expanding, the appearance appears to be improving. 6. Anxiety and depression, dementia: Sertraline dose was decreased to 50 mg daily. Magnesium oxide decreased to 200 mg daily. Discharge medication reconciliation done. Discharge follow-up instructions completed. Discharge process discussed with the patient and all questions were answered to patient's satisfaction. Follow with PCP in 1 to 2 weeks Total time spent, exact 35 minutes on discharge meds reconciliation, examination, coordination of care with nurses and ancillary staff, review of imaging and blood test and discussion with the patient on follow-up instructions. Microbiology Past 72 Hours 07/20/24 09:51 Csf, Spinal Fluid Gram Stain - Final 07/20/24 09:51 Csf, Spinal Fluid CSF Culture - Preliminary No growth in 24 hours. Final to follow. Laboratory Results 07/20/24 09:51: CSF Comment Pending 07/22/24 05:46: WBC 10.2, RBC 3.16 L, Hgb 9.3 L, Hct 30.3 L, MCV 95.9, MCH 29.4, MCHC 30.7 L, RDW Std Deviation 50.7 H, RDW Coeff of Rory 14.4, Plt Count 260, MPV 10.7, Immature Gran % (Auto) 0.700, Neut % (Auto) 68.0, Lymph % (Auto) 18.8 L, [place] % (Auto) 7.9, Eos % (Auto) 3.9, Baso % (Auto) 0.7, Absolute Neuts (auto) 6.9, Absolute Lymphs (auto) 1.91, Nucleated RBC % 0, Sodium 142, Potassium 3.9, Chloride 114 H, Carbon Dioxide 19.0 L, BUN 86 H, Creatinine 3.84 H, Estim Creat Clear Calc 12.18, Est GFR (MDRD) Af Amer 15 L, Est GFR (MDRD) Non-Af 12 L, B UN/Creatinine Ratio 22.4 H, Glucose 100, Calcium 8.6, Phosphorus 6.2 H, Albumin 2.9 L, Miscellaneous Test Pending Clinical Impression(s) from Imaging Studies Brain CT 07/16/24 03:23 IMPRESSION: 1. Decreased size and density of the previous extra-axial hemorrhage overlying the right parietal lobe, now measuring up to 6 mm in thickness. Resolution of the previous subarachnoid hemorrhage. 2. Low-density subdural fluid collection overlying the right cerebral hemisphere measuring up to 5 mm thickness consistent with a small chronic subdural hematoma or hygroma. 3. No acute intracranial blood products. Electronically Signed: Stevo Cowart MD at 4:10 EST Reading Location ID and State: [address] [place] [address] Tel , Service support , Cervical Spine CT 07/16/24 03:23 IMPRESSION: 1. No acute injuries identified involving the cervical spine. 2. Degenerative changes. Electronically Signed: Stevo Cowart MD at 4:29 EST Reading Location ID and State: [facility] / [place] Tel , Service support , Chest X-Ray 07/16/24 03:23 IMPRESSION: No acute findings in the chest. Electronically Signed: Stevo Cowart MD at 4:12 EST , Pelvis X-Ray 07/16/24 03:48 IMPRESSION: No acute findings in the pelvis. Brain MRI 07/16/24 06:15 IMPRESSION: 1. Subacute subdural hematoma overlying the right cerebral hemisphere with mild mass effect but no midline shift. 2. No MRI evidence of acute or subacute ischemic infarct. 3. Chronic periventricular white matter ischemic changes in both cerebral hemispheres. 4. No significant interval change when compared to CT head scan of 07/16/2024. Echocardiogram 07/16/24 06:15 Interpretation Summary The estimated ejection fraction is 65 %. No evidence for diastolic dysfunction. Trivial mitral valve insufficiency. Lumbar Puncture Fluoroscopy 07/20/24 09:35 IMPRESSION: Successful fluoroscopic-guided lumbar puncture. Medications at Discharge Home Medications clonidine HCl 0.3 mg tablet 0.3 mg PO Q8H BP 07/25/23 ergocalciferol (vitamin D2) 1,250 mcg (50,000 unit) capsule (Vitamin D2) 50,000 unit PO QWEEK supplement 07/25/23 metoprolol tartrate 100 mg tablet 100 mg PO Q12H BP 07/25/23 atorvastatin 40 mg tablet 40 mg PO DAILY 07/16/24 buspirone 5 mg tablet 5 mg PO DAILY 07/16/24 fenofibrate micronized 67 mg capsule 67 mg PO DAILY 07/16/24 melatonin 3 mg capsule 3 mg PO QHS 07/16/24 nifedipine 90 mg tablet,extended release 90 mg PO DAILY 07/16/24 nitroglycerin 0.4 mg sublingual tablet 0.4 mg sublingual Q5M PRN chest pain 07/16/24 vit B comp no.3-scglp-O-biotin PO 07/16/24 acetaminophen 325 mg tablet 650 mg (2 x 325 mg) PO Q4H PRN PRN Fever, pain 1- 06/11 #0 tabs 07/22/24 levetiracetam 250 mg tablet 250 mg PO BID #0 tabs 07/22/24 magnesium oxide 200 mg PO DAILY 30 days #0 tabs 07/22/24 sennosides 8.6 mg-docusate sodium 50 mg tablet (Stimulant Laxative Plus) 2 tab PO BID #0 tabs 07/22/24 sertraline 100 mg tablet 50 mg (1/2 x 100 mg) PO DAILY 30 days #0 tabs 07/22/24 sodium bicarbonate 650 mg tablet 650 mg PO 4X/DAY #0 tabs 07/22/24 Physical Exam Narrative Seen and examined. No significant change in the last 2 days. Patient has difficulty understanding the questions and formulating words into sentences. Discussed with the physician scientist. Had BM today. Physical exam General: Awake, disoriented to time and place. Incoherent speech. HEENT: Atraumatic, PERRLA, EOMI, Normocephalic Oral: No Gingival or Mucosal Lesions/ Ulcerations Neck: Supple, No JVD, Negative Carotid Bruits Chest wall/Lungs: Air entry diminished in bilateral lung bases. No crepitation/rhonchi Cardiovascular: Regular rate, Regular Rhythm, Normal S1, Normal S2, systolic murmur. Abdomen: Bowel Sounds Present, Soft, Non Tender, Non-Distended : No dysuria. No renal angle tenderness. No suprapubic tenderness. Extremities: No edema, Capillary Refill Less than 3 Seconds Skin: No rashes, No breakdown Musculoskeletal: Muscle strength 4+/5 at knees and hip joints. No Tenderness to Palpation of Joints or Extremities Neurological: Cranial nerves II-XII grossly intact, DTR 2+/4. Incoherent speech. Psych/Mental Status: Flat affect. Cognitive deficit/amnesia/early dementia Weight / BMI Weight Weight: 158 lb 4.67 oz Body Mass Index (BMI) 29.9 ABG / Lab / Microbiology Data 07/22/24 05:46 07/22/24 05:46 Laboratory: Laboratory Results - last 24 hr 07/22/24 05:46: WBC 10.2, RBC 3.16 L, Hgb 9.3 L, Hct 30.3 L, MCV 95.9, MCH 29.4, MCHC 30.7 L, RDW Std Deviation 50.7 H, RDW Coeff of Rory 14.4, Plt Count 260, MPV 10.7, Immature Gran % (Auto) 0.700, Neut % (Auto) 68.0, Lymph % (Auto) 18.8 L, [place] % (Auto) 7.9, Eos % (Auto) 3.9, Baso % (Auto) 0.7, Absolute Neuts (auto) 6.9, Absolute Lymphs (auto) 1.91, Nucleated RBC % 0, Sodium 142, Potassium 3.9, Chloride 114 H, Carbon Dioxide 19.0 L, BUN 86 H, Creatinine 3.84 H, Estim Creat Clear Calc 12.18, Est GFR (MDRD) Af Amer 15 L, Est GFR (MDRD) Non-Af 12 L, B UN/Creatinine Ratio 22.4 H, Glucose 100, Calcium 8.6, Phosphorus 6.2 H, Albumin 2.9 L Microbiology: Microbiology 07/20/24 09:51 Csf, Spinal Fluid Gram Stain - Final 07/20/24 09:51 Csf, Spinal Fluid CSF Culture - Preliminary No growth in 24 hours. Final to follow. 07/16/24 04:15 Mucosa - Nose SARS-CoV-2, Influenza & RSV (PCR) - Final D/C Instructions DC O2, CPAP, BIPAP Needs Additional Home O2 Discharge instructions: No DC home with Oxygen: No Meaningful Use Info Meaningful Use Meaningful Use Diagnoses (Choose all that apply): None applicable Ischemic Stroke Statin Dosing Therapy Reference: STATIN DOSE THERAPY REFERENCE: * Patients > 75 years receive moderate or high dose statin therapy. * Patients 75 years or YOUNGER should receive HIGH intensity statin dose unless contraindicated. You will be required to document reason for non-treatment if statin daily dose does not meet guidelines. HIGH DOSE STATIN THERAPY DAILY Atorvastatin > than or = to 40 mg Rosuvastatin > than or = to 20 mg Amlodipine + Atorvastatin > than or = to 2.5/40 mg Ezetimibe + Simvastatin 10/80 mg Simvastatin 80mg Discharge Plan Admission Admit Date/Time: 07/16/24 05:29 Primary Reason for Your Visit: Altered mental status, CKD stage V. LUKE resolved. Attending Provider: Adams Nieto Primary Care Provider: Phuc Barker Consulting Providers: Patrice Penny; Dylan Wynne; Kaylee Dior; Cynthia Snyder; Joana Schneider; Conor Cortes; Gabi Glaser; Alex Talley; Nathaniel Lua; Willis Huang; Scarlet Dudley; Tony Schaffer; Magui Dee; Kiana Goodwin; Karma Rawls; Diego Anguiano; Wai Wheatley; Phan Alexander; Vernell Segovia; Rodolfo Chapman; Hawa Butler; Cha Peace; Doe Jeffery; Ryan Torrez; NEGRA DICKEY; Martin Rowan; Gogo Asif; Alejo Kunz; Maria Ines Guaman Discharge Orders/Prescriptions Prescriptions: New acetaminophen 325 mg Tablet 650 mg PO Q4H PRN PRN (Reason: Fever, pain 1-06/11) Qty: 0 0RF sennosides-docusate sodium [Stimulant Laxative Plus] 8.6-50 mg Tablet 2 tab PO BID Qty: 0 0RF levetiracetam 250 mg Tablet 250 mg PO BID Qty: 0 0RF sodium bicarbonate 650 mg Tablet 650 mg PO 4X/DAY Qty: 0 0RF Continued metoprolol tartrate 100 mg tablet 100 mg PO Q12H Patient Comments: TAKE 1 TABLET BY MOUTH TWICE DAILY clonidine HCl 0.3 mg tablet 0.3 mg PO Q8H Patient Comments: TAKE 1 TABLET BY MOUTH THREE TIMES DAILY ergocalciferol (vitamin D2) [Vitamin D2] 1,250 mcg (50,000 unit) capsule 50,000 unit PO QWEEK atorvastatin 40 mg tablet 40 mg PO DAILY buspirone 5 mg tablet 5 mg PO DAILY melatonin 3 mg capsule 3 mg PO QHS nifedipine 90 mg tablet extended release 90 mg PO DAILY fenofibrate micronized 67 mg capsule 67 mg PO DAILY nitroglycerin 0.4 mg tablet, sublingual 0.4 mg sublingual Q5M PRN (Reason: chest pain) vit B comp no.7-zyqru-N-biotin [Zenaida-Marcella Rx] PO Changed sertraline 100 mg tablet 50 mg PO DAILY 30 Days Qty: 0 0RF magnesium oxide 200 mg magnesium tablet 200 mg PO DAILY 30 Days Qty: 0 0RF Discontinued sucralfate 1 gram tablet 1 g PO BID spironolactone 25 mg tablet 25 mg PO DAILY Patient Comments: TAKE 1 TABLET BY MOUTH EVERY DAY sertraline 50 mg tablet 50 mg PO DAILY pantoprazole [Protonix] 40 mg tablet,delayed release (DR/EC) 40 mg PO DAILY Qty: 60 0RF Referrals / Follow Up: Bonnie Simmons MD [Med Staff - Consulting] - Within 1 Week Awa Hargrove DO [Med Staff - Active Staff] - Phuc Barker MD [Primary Care Provider] - Disposition Disposition (needs filled in before D/C Order can be placed): Half-Way Facility Charges/Coding Visit Charges Inpatient E&M: 59022 Disch Hosp >30min
--- NOTE | 2024-07-22 13:34 | CASEMGMT ---
Patient is ready for discharge back to [facility]. Plan: d/c back to [facility] under skilled level of care. Physicians will transport patient via wheelchair van. Huma POSADAS
[2024-07-22 13:47] VITALS: BMI 29.9
[2024-07-22 13:49] LABS: Pathologist Review May follow
[2024-07-22 14:16] VITALS: BP 133/74; PULSE 65; RESP 18; TEMP 36.7; O2SAT 98
--- NOTE | 2024-07-22 14:26 | NURSING ---
called report to cecil at [facility]
--- NOTE | 2024-07-22 14:27 | PHA.DC_ITS ---
Pharmacy [place] Med Reconciliation Pharmacy Service has performed discharge medication reconciliation for this patient. The patient's discharge medication list was reviewed for discrepancies and discrepancies were resolved. Medications at Discharge Home Medications clonidine HCl 0.3 mg tablet 0.3 mg PO Q8H BP 07/25/23 ergocalciferol (vitamin D2) 1,250 mcg (50,000 unit) capsule (Vitamin D2) 50,000 unit PO QWEEK supplement 07/25/23 metoprolol tartrate 100 mg tablet 100 mg PO Q12H BP 07/25/23 atorvastatin 40 mg tablet 40 mg PO DAILY 07/16/24 buspirone 5 mg tablet 5 mg PO DAILY 07/16/24 fenofibrate micronized 67 mg capsule 67 mg PO DAILY 07/16/24 melatonin 3 mg capsule 3 mg PO QHS 07/16/24 nifedipine 90 mg tablet,extended release 90 mg PO DAILY 07/16/24 nitroglycerin 0.4 mg sublingual tablet 0.4 mg sublingual Q5M PRN chest pain 07/16/24 vit B comp no.7-slqbi-M-biotin PO 07/16/24 acetaminophen 325 mg tablet 650 mg (2 x 325 mg) PO Q4H PRN PRN Fever, pain 1- 06/11 #0 tabs 07/22/24 levetiracetam 250 mg tablet 250 mg PO BID #0 tabs 07/22/24 magnesium oxide 200 mg PO DAILY 30 days #0 tabs 07/22/24 sennosides 8.6 mg-docusate sodium 50 mg tablet (Stimulant Laxative Plus) 2 tab PO BID #0 tabs 07/22/24 sertraline 100 mg tablet 50 mg (1/2 x 100 mg) PO DAILY 30 days #0 tabs 07/22/24 sodium bicarbonate 650 mg tablet 650 mg PO 4X/DAY #0 tabs 07/22/24
--- NOTE | 2024-07-22 14:33 | CASEMGMT ---
Discharge Planning Discharge orders, signed med list, and transport time sent to [facility] via [facility]. Physicians will transport patient by wheelchair at 3p. Nursing, SW, patient, and her updated. Pallavi Guadarrama DC Planning Asst.
--- NOTE | 2024-07-22 15:08 | PN.RENAL_ITS ---
Subjective Subjective Patient is sitting up in bed, waiting for discharge back to [facility] today. Today she states she is feeling better. No nausea or vomiting. No complaints. Objective Data Objective Data Vital Signs: Vital Signs Temp Pulse Resp BP Pulse Ox O2 Del Method 98.0 F 65 18 133/74 H 98 Room Air 07/22/24 14:16 07/22/24 14:16 07/22/24 14:16 07/22/24 14:16 07/22/24 14:16 07/22/24 14:16 Oxygen Delivery Method Room Air Weight: 71.8 kg Body Mass Index (BMI) 29.9 Intake & Output: Intake and Output for Last 24 Hours 07/20/24 07/21/24 07/22/24 23:59 23:59 23:59 Intake Total 867.5 / 1375.0 722.5 / 972.5 1847.5 / 1847.5 Output Total 400 / 400 Balance 467.5 / 975.0 722.5 / 972.5 1847.5 / 1847.5 Lab / Micro Data 07/22/24 05:46 07/22/24 05:46 Labs: Laboratory Results - last 24 hr 07/20/24 09:51: CSF Comment May follow 07/22/24 05:46: WBC 10.2, RBC 3.16 L, Hgb 9.3 L, Hct 30.3 L, MCV 95.9, MCH 29.4, MCHC 30.7 L, RDW Std Deviation 50.7 H, RDW Coeff of Rory 14.4, Plt Count 260, MPV 10.7, Immature Gran % (Auto) 0.700, Neut % (Auto) 68.0, Lymph % (Auto) 18.8 L, [place] % (Auto) 7.9, Eos % (Auto) 3.9, Baso % (Auto) 0.7, Absolute Neuts (auto) 6.9, Absolute Lymphs (auto) 1.91, Nucleated RBC % 0, Sodium 142, Potassium 3.9, Chloride 114 H, Carbon Dioxide 19.0 L, BUN 86 H, Creatinine 3.84 H, Estim Creat Clear Calc 12.18, Est GFR (MDRD) Af Amer 15 L, Est GFR (MDRD) Non-Af 12 L, B UN/Creatinine Ratio 22.4 H, Glucose 100, Calcium 8.6, Phosphorus 6.2 H, Albumin 2.9 L Micro: Microbiology 07/20/24 09:51 Csf, Spinal Fluid Gram Stain - Final 07/20/24 09:51 Csf, Spinal Fluid CSF Culture - Preliminary No growth in 24 hours. Final to follow. 07/16/24 04:15 Mucosa - Nose SARS-CoV-2, Influenza & RSV (PCR) - Final Physical Exam Narrative Alert and oriented, no apparent distress, having difficult time recalling recent events S1, S2, RRR Lungs clear. No wheezes, rhonchi or rales noted abdomen soft, nontender No edema Assessment & Plan Assessment/Plan (1) LUKE (acute kidney injury): (2) Altered mental status: PLAN: Plan This is a pleasant 69-year-old female with past medical history significant for recent intracranial bleed with subdural hematoma and right cerebral hemisphere in June 2024 status post fall (hospitalized at [facility]), history of cerebral palsy, hypertension, hyperlipidemia, GERD with history of GI bleed, A- fib, dialysis requiring acute kidney injury with unknown baseline serum creatinine who was admitted to the hospital after fall. Nephrology consulted as patient has rising serum creatinine with recent history of dialysis requiring LUKE secondary to ATN. Patient was started on hemodialysis when hospitalized in [facility] mid April 2024. Patient was receiving hemodialysis from April 2024 to mid June 2024. Her last hemodialysis session was on 06/17, tunneled hemodialysis catheter has been removed. -LUKE on CKD stage IV/ possible V; patient's baseline creatinine is unknown. In 2018 baseline creatinine had been ranging around 1.1 to 1.3 mg/dL. There is a gap in lab work until recently. With this current hospitalization on 07/16 creatinine 3.06--> SCr 4.47 (peak 07/20). Aldactone stopped yesterday. Patient did receive 1 L gentle IV fluids and today serum creatinine 3.84. Possible baseline creatinine around 3.1. No acute indication for S[employer] AND [employer] REPA[employer]ER. Reason for rise in serum creatinine unknown, possibly from volume depletion and overdiuresis. There has been no recent contrast exposure. Patient is nonoliguric. Discussed discharge with Dr. Nieto. Patient will not be discharged on diuretic, YOLY or ARB. Will arrange for hospital follow-up in [place] office.
== END 2024-07-22 15:19 | disposition skilled nursing facility (03) | DRG 92 ==
LOC: ED 05:22 → PCU 05:37
PROVIDERS: Internal Medicine; Nurse Practitioner Adult Health; Admitting Provider Family Medicine; Emergency Provider Emergency Medicine; PCP Family Medicine; Visit Provider Internal Medicine
DX: R47.01 Aphasia (principal); G93.49 Other encephalopathy; I12.0 Hypertensive chronic kidney disease with stage 5 chronic kidney disease or end stage renal disease; N17.9 Acute kidney failure, unspecified; Z99.2 Dependence on renal dialysis; G80.9 Cerebral palsy, unspecified; I48.0 Paroxysmal atrial fibrillation; E16.2 Hypoglycemia, unspecified; E78.00 Pure hypercholesterolemia, unspecified; K21.9 Gastro-esophageal reflux disease without esophagitis; I25.10 Atherosclerotic heart disease of native coronary artery without angina pectoris; W19.XXXA Unspecified fall, initial encounter; E87.6 Hypokalemia; F41.8 Other specified anxiety disorders; R41.82 Altered mental status, unspecified; Z79.899 Other long term (current) drug therapy; Y92.129 Unspecified place in nursing home as the place of occurrence of the external cause; R73.9 Hyperglycemia, unspecified
CPT/HCPCS: 36415; 62328; 70450; 70551; 71045; 72125; 72170; 80048; 80053; 80061; 80069; 80076; 80307; 81001; 82140; 82803; 82945; 83036; 83735; 84157; 84443; 85025; 85610; 85730; 87070; 87205; 87631; 88108; 88305; 88313; 89050; 89051; 93005; 93306; 94762; 95819; 97110; 97162; 97166; 97530; 97535; 97802; 97803; 99285; A4216

== ENCOUNTER 2024-07-24 06:01 | Emergency (ER) | payer MEDICARE, SELFPAY ==
[2024-07-24] VITALS (7 sets, daily range): BP systolic 111–150; BP diastolic 61–96; PULSE 62–78; RESP 16–19; TEMP 36.7–36.8; O2SAT 95–98; BMI 30.3
--- NOTE | 2024-07-24 06:37 | EKG12_ITS ---
Test Reason : CP Blood Pressure : */* mmHG Vent. Rate : 68 BPM Atrial Rate : 68 BPM P-R Int : 188 ms QRS Dur : 102 ms QT Int : 426 ms P-R-T Axes : 26 -21 -3 degrees QTcB Int : 452 ms Normal sinus rhythm Moderate voltage criteria for LVH, may be normal variant ( R in aVL , [place] product ) Borderline ECG Confirmed by Jose Capone ([id number]), photography editor TEZ RICHARDSON ([id number]) on 07/27/2024 6:20:40 AM Referred By: LUCY Confirmed By: Jose Capone
--- NOTE | 2024-07-24 06:38 | RAD_ITS ---
INDICATION: chest pain EXAMINATION/TECHNIQUE: X-RAY - XR Chest 2 Views COMPARISON: No relevant prior comparison study available FINDINGS: LINES/DEVICES: None. LUNGS: No consolidation, edema or effusion. No pneumothorax. MEDIASTINUM AND CARDIOVASCULAR STRUCTURES: Moderate cardiomegaly. BONES AND SOFT TISSUES: Unremarkable. RAD/Chest PA and Lateral IMPRESSION: Moderate Cardiomegaly. Electronically Signed: Alissa Kessler MD at 7:21 EST ,
--- NOTE | 2024-07-24 06:41 | ED.VIS.CHEST ---
HPI <Dr. Armando Briones, DO - Last Filed: 07/28/24 20:51> History of Present Illness Chief Complaint: Chest Pain Narrative Narrative: Chief complaint and HPI: Resolved chest pain. 69-year-old female with past medical history significant for intracranial bleed with subdural hematoma and right cerebral hemisphere in June 2024 status post fall, cerebral palsy, hypertension, hyperlipidemia, paroxysmal atrial fibrillation, CKD, CAD with history of CT presents for evaluation of resolved chest pain. Patient resides at a care facility. She states yesterday evening she developed chest pain. She describes it as crampy as well as slight pressure. She states that it was different than her previous chest pain with her CT and that it was not severe in nature. She states she was given a nitro and the pain eventually disappeared. She cannot relate if the nitro is what made the pain better. Patient states the pain did not last very long. Patient is currently not having any chest pain. The nursing staff discussed the patient with Dr. Knxo who wanted the patient evaluated in the emergency department given that she was just recently admitted for altered mental status. Patient denies any fever, chills, shortness of breath, chest pain currently, abdominal pain, nausea, vomiting, dysuria. Patient is currently alert and oriented x 4 and is upset that she is here in the emergency department. Review of systems: See HPI Medications: As listed on the chart Allergies: As listed on the chart PFSH: Per chart Vital signs: As listed on the chart. Reviewed. Physical exam: Gen: A&O x4, NAD Head: Normocephalic, atraumatic Eyes: No sclera icterus, conjunctiva clear ENT: Moist mucous membranes Neck: Trachea midline, No JVD CV: RRR, no murmurs, no peripheral edema Resp: Lungs CTA BL, no w/r/c GI: Abd soft, non-distended, non-tender, no r/r/g Musc: Full ROM, no deformity Skin: Warm, dry Neuro: Alert, oriented, grossly intact, sensation intact Psych: Cooperative, appropriate mood and affect [facility] <Dr. Armando Briones, DO - Last Filed: 07/28/24 20:51> [facility] Medical History (Updated 07/24/24 @ 10:[address] Darien Askew MD) PAF (paroxysmal atrial fibrillation) ESRD on dialysis Traumatic subarachnoid hemorrhage without loss of consciousness, subsequent encounter GERD (gastroesophageal reflux disease) Osteoarthritis Hyperlipidemia History of ESBL E. coli infection Post-menopausal CAD (coronary artery disease) Cerebral palsy High cholesterol Hypertension Home Medications ?Medication ?Instructions ?Recorded ?Last Taken ?Type clonidine HCl 0.3 mg tablet 0.2 mg PO Q8H BP 07/25/23 Unknown History ergocalciferol (vitamin D2) 1,250 50,000 unit PO QWEEK supplement 07/25/23 Unknown History mcg (50,000 unit) capsule (Vitamin D2) atorvastatin 40 mg tablet 40 mg PO DAILY 07/16/24 Unknown History buspirone 5 mg tablet 5 mg PO DAILY 07/16/24 Unknown History fenofibrate micronized 67 mg 67 mg PO DAILY 07/16/24 Unknown History capsule melatonin 3 mg capsule 3 mg PO QHS 07/16/24 Unknown History nifedipine 90 mg tablet,extended 90 mg PO DAILY 07/16/24 Unknown History release nitroglycerin 0.4 mg sublingual 0.4 mg sublingual Q5M PRN chest 07/16/24 Unknown History tablet pain vit B comp no.[id number]-U-biotin 1 tab PO DAILY 07/16/24 Unknown History acetaminophen 325 mg tablet 650 mg (2 x 325 mg) PO Q4H PRN PRN 07/22/24 Unknown Rx Fever, pain 1-06/11 #0 tabs magnesium oxide 200 mg PO DAILY 30 days #0 tabs 07/22/24 Unknown Rx sertraline 100 mg tablet 150 mg PO DAILY 07/24/24 Unknown History sodium bicarbonate 650 mg tablet 650 mg PO TID 07/24/24 Unknown History Allergy/AdvReac Type Severity Reaction Status Date / Time No Known Allergies Allergy Verified 07/24/24 06:02 Family History (Updated 07/16/24 @ 05:[address] Hawa Butler MD) Mother Heart disease Father Heart disease Surgical History (Updated 07/16/24 @ 05:[address] Hawa Butler MD) S/P endoscopy Social History (Updated 07/16/24 @ 05:[address] Hawa Butler MD) household members: none housing: halfway Smoking Status: Never smoker alcohol intake: never substance use type: does not use EXAM <Dr. Armando Briones, - Last Filed: 07/28/24 20:51> Physical Exam Const Vital Signs: 07/24/24 06:02 07/24/24 06:02 07/24/24 06:21 Temperature 98.1 F Temperature Source Oral Pulse Rate Respiratory Rate 16 Respiratory Effort Normal Non-Labored Blood Pressure 138/83 H Blood Pressure Mean 101 Pulse Ox 98 Oxygen Delivery Method Room Air 07/24/24 07:02 07/24/24 07:59 07/24/24 09:00 Temperature Temperature Source Pulse Rate 62 69 78 Respiratory Rate 17 17 18 Respiratory Effort Blood Pressure 111/61 127/76 H 150/96 H Blood Pressure Mean 77 93 114 Pulse Ox 95 98 98 Oxygen Delivery Method Room Air Room Air Room Air 07/24/24 10:00 Temperature Temperature Source Pulse Rate 78 Respiratory Rate 19 H Respiratory Effort Blood Pressure 132/82 H Blood Pressure Mean 98 Pulse Ox 98 Oxygen Delivery Method Room Air <Dr. Darien Askew MD - Last Filed: 07/24/24 10:47> Physical Exam Const Vital Signs: 07/24/24 06:02 07/24/24 06:02 07/24/24 06:21 Temperature 98.1 F Temperature Source Oral Pulse Rate Respiratory Rate 16 Respiratory Effort Normal Non-Labored Blood Pressure 138/83 H Blood Pressure Mean 101 Pulse Ox 98 Oxygen Delivery Method Room Air 07/24/24 07:02 07/24/24 07:59 07/24/24 09:00 Temperature Temperature Source Pulse Rate 62 69 78 Respiratory Rate 17 17 18 Respiratory Effort Blood Pressure 111/61 127/76 H 150/96 H Blood Pressure Mean 77 93 114 Pulse Ox 95 98 98 Oxygen Delivery Method Room Air Room Air Room Air 07/24/24 10:00 Temperature Temperature Source Pulse Rate 78 Respiratory Rate 19 H Respiratory Effort Blood Pressure 132/82 H Blood Pressure Mean 98 Pulse Ox 98 Oxygen Delivery Method Room Air MDM <Dr. Armando Briones DO - Last Filed: 07/28/24 20:51> [facility] MDM Narrative Medical decision making narrative: 69-year-old female presents for evaluation of resolved chest pain. Onset of chest pain was yesterday and resolved. Patient cannot relate if it resolved with nitro or not. States it was different than her previous CT. Patient is alert and oriented x 4. She is upset that she is here in the emergency department. I did discuss her the risks and benefits to treatment. After long discussion she did consent to treatment. Differential diagnosis includes but is not limited to musculoskeletal pain, costochondritis, ACS, pleurisy. Cardiac workup ordered. Patient currently has no complaints. EKG and chest x-ray reviewed see below. CBC with mild leukocytosis of 13.3. Baseline anemia. BMP shows baseline CKD. Initial troponin within normal limits. Delta troponin pending at this time. Patient signed out to day physician. He will await repeat delta. If delta is negative, suspect patient will be discharged back to the facility with follow-up care. EKG: Interpreted by me/EM physician: EKG shows normal sinus rhythm without any acute ischemic changes. Heart rate 68. Diagnostic: Interpreted by me/EM physician: Chest x-ray with cardiomegaly but negative for pneumonia, effusion, pneumothorax. This is similar to previous chest x-ray Impression: 1. Resolved chest pain 2. Chronic anemia 3. CKD Lab Data Labs: Laboratory Results - last 24 hr 07/24/24 07/24/24 06:34 08:50 WBC 13.3 H RBC 3.31 L Hgb 9.7 L Hct 32.3 L MCV 97.6 MCH 29.3 MCHC 30.0 L RDW Std Deviation 50.5 H RDW Coeff of Rory 14.1 Plt Count 250 MPV 11.1 Immature Gran % (Auto) 0.800 Neut % (Auto) 74.3 H Lymph % (Auto) 15.4 L Parke % (Auto) 7.7 Eos % (Auto) 1.4 Baso % (Auto) 0.4 Absolute Neuts (auto) 9.9 H Absolute Lymphs (auto) 2.05 Nucleated RBC % 0 Sodium 140 Potassium 3.6 Chloride 110 H Carbon Dioxide 21.0 Anion Gap 9 BUN 69 H Creatinine 3.58 H Estim Creat Clear Calc 13.16 Est GFR (MDRD) Af Amer 16 L Est GFR (MDRD) Non-Af 13 L BUN/Creatinine Ratio 19.3 Glucose 103 Calcium 9.3 Troponin I High Sens 15 17 Radiography Diagnostic Testing: Clinical Impression(s) from Imaging Studies Chest X-Ray 07/24/24 06:38 IMPRESSION: Moderate Cardiomegaly. Electronically Signed: Alissa Kessler MD at 7:21 EST , <Dr. Darien Askew MD - Last Filed: 07/24/24 10:47> [facility] Lab Data Attestation: I reviewed the patient's lab results. Lab results narrative: White count is elevated 13.3. There is a slight shift. No bandemia. Patient does have anemia with normal indices. Electrolyte panel is remarked for BUN/creatinine of 69 and 3.58. Estimated GFR is 13. First and second troponin are 15 and 17 respectively with delta +2.Review of prior laboratory results indicates patient's creatinine is at baseline. Labs: Laboratory Results - last 24 hr 07/24/24 07/24/24 06:34 08:50 WBC 13.3 H RBC 3.31 L Hgb 9.7 L Hct 32.3 L MCV 97.6 MCH 29.3 MCHC 30.0 L RDW Std Deviation 50.5 H RDW Coeff of Rory 14.1 Plt Count 250 MPV 11.1 Immature Gran % (Auto) 0.800 Neut % (Auto) 74.3 H Lymph % (Auto) 15.4 L Parke % (Auto) 7.7 Eos % (Auto) 1.4 Baso % (Auto) 0.4 Absolute Neuts (auto) 9.9 H Absolute Lymphs (auto) 2.05 Nucleated RBC % 0 Sodium 140 Potassium 3.6 Chloride 110 H Carbon Dioxide 21.0 Anion Gap 9 BUN 69 H Creatinine 3.58 H Estim Creat Clear Calc 13.16 Est GFR (MDRD) Af Amer 16 L Est GFR (MDRD) Non-Af 13 L BUN/Creatinine Ratio 19.3 Glucose 103 Calcium 9.3 Troponin I High Sens 15 17 Radiography Diagnostic Testing: Clinical Impression(s) from Imaging Studies Chest X-Ray 07/24/24 06:38 IMPRESSION: Moderate Cardiomegaly. Electronically Signed: Alissa Kessler MD at 7:21 EST , Treatment and Re-Evaluation :: Per discussion with the evening physician if second troponin is normal patient to be discharged home. She was made aware of her results. Discharge Plan Triage Chief Complaint: Chest Pain ED Provider: Armando Briones Dx/Rx/DC Orders Clinical Impression: Chest pain, Paroxysmal atrial fibrillation, Hypertension, End-stage renal disease on hemodialysis Instructions: Chest Pain [facility] Prescriptions: No Action clonidine HCl 0.3 mg tablet 0.2 mg PO Q8H Patient Comments: TAKE 1 TABLET BY MOUTH THREE TIMES DAILY ergocalciferol (vitamin D2) [Vitamin D2] 1,250 mcg (50,000 unit) capsule 50,000 unit PO QWEEK atorvastatin 40 mg tablet 40 mg PO DAILY buspirone 5 mg tablet 5 mg PO DAILY melatonin 3 mg capsule 3 mg PO QHS nifedipine 90 mg tablet extended release 90 mg PO DAILY fenofibrate micronized 67 mg capsule 67 mg PO DAILY nitroglycerin 0.4 mg tablet, sublingual 0.4 mg sublingual Q5M PRN (Reason: chest pain) vit B comp no.[id number]-L-biotin [Zenaida-Marcella Rx] 1 tab PO DAILY acetaminophen 325 mg Tablet 650 mg PO Q4H PRN PRN (Reason: Fever, pain -06/11) Qty: 0 0RF magnesium oxide 200 mg magnesium tablet 200 mg PO DAILY 30 Days Qty: 0 0RF sertraline 100 mg tablet 150 mg PO DAILY sodium bicarbonate 650 mg Tablet 650 mg PO TID Primary Care Provider: Puhc Barker Referrals: Phuc Barker MD [Primary Care Provider] - 3-5 Days Activity Restrictions/Additional Instructions: Return back to the ED if symptoms change or worsen Print Language: Urdu Disposition Disposition: Home, Self Care Discharge Date/Time: 07/24/24 10:59
[2024-07-24 06:53] LABS: Absolute Lymphocyte Count 2.05 X10^3/uL (0.83-4.51); Absolute Neutrophil Count 9.9 X10^3/uL (2.0-7.7); Basophil# 0.05 X10^3/uL; Basophil% 0.4 % (0-1); Eosinophil# 0.19 X10^3/uL; Eosinophils% 1.4 % (0-5); Hematocrit 32.3 % (37-47); Hemoglobin 9.7 g/dL (12.0-15.0); Lymphocyte # 2.05 X10^3/ul (0.83-4.51); Lymphocyte % 15.4 % (19-41); Mean Corpuscular Hgb 29.3 pg (27.0-32.0); Mean Corpuscular Volume 97.6 fL (81-99); Mean Platelet Vol. 11.1 fl (6.2-12.0); Monocyte# 1.03 X10^3/uL; Monocyte% 7.7 % (0-10); NRBC Flagged by Analyzer 0 % (0-5); Neutrophil # 9.88 X10^3/uL (2.7-7.7); Neutrophil % 74.3 % (47-70); Platelet Count 250 K/mm3 (150-450); RBC Distribution Width CV 14.1 % (11.6-14.6); RBC Distribution Width SD 50.5 fl (35.1-43.9); Red Blood Count 3.31 M/mm3 (4.2-5.4); White Blood Count 13.3 K/mm3 (4.4-11.0)
[2024-07-24 07:09] LABS: Anion Gap 9 (5-15); BUN 69 mg/dL (7-18); BUN/Creat Ratio 19.3 RATIO (10-20); Calcium,Total 9.3 mg/dL (8.5-10.1); Chloride 110 mmol/L (98-107); Creatinine, Serum 3.58 mg/dL (0.55-1.02); EST Glomerular Filtration Rate 13 mL/min (>60); Est Glom Filt Rate - Afr Amer 16 mL/min (>60); Estimated Creatinine Clearance 13.16 ml/min; Glucose 103 mg/dL (74-106); Potassium 3.6 mmol/L (3.5-5.1); Sodium Level 140 mmol/L (136-145); Troponin-I HS (w/2H Reflex) 15 pg/mL (3.0-54.0)
--- NOTE | 2024-07-24 07:15 | ED.RN ---
attempted times 3 to start Iv unsuccessful,was able to get the blood.Pt is mad that she is here. Charge nurse,Jayden Washington made aware.
[2024-07-24 08:49] LABS: Reflex Troponin-HS? (from REC) Y
[2024-07-24 09:16] LABS: Troponin-I HS 17 pg/mL (3.0-54.0)
--- NOTE | 2024-07-24 11:02 | ED.RN ---
report given to [facility] RN. Patient friend transporting patient back to facility.
== END 2024-07-24 10:59 | disposition home or self-care (01) ==
PROVIDERS: Emergency Provider Surgery; PCP Family Medicine; Visit Provider Surgery
DX: R07.9 Chest pain, unspecified (principal); I12.0 Hypertensive chronic kidney disease with stage 5 chronic kidney disease or end stage renal disease; N18.6 End stage renal disease; I48.0 Paroxysmal atrial fibrillation; I25.10 Atherosclerotic heart disease of native coronary artery without angina pectoris; Z99.2 Dependence on renal dialysis; D64.9 Anemia, unspecified; K21.9 Gastro-esophageal reflux disease without esophagitis; E78.5 Hyperlipidemia, unspecified; I25.2 Old myocardial infarction
CPT/HCPCS: 71046; 80048; 84484; 85025; 93005; 99284

== ENCOUNTER → 2024-08-27 | Outpatient (REF) | payer MEDICARE, SELFPAY ==
[2024-08-27 08:11] LABS: Hematocrit 29.9 % (37-47); Hemoglobin 9.7 g/dL (12.0-15.0); Mean Corp Hgb Conc 32.4 g/dL (32-36); Mean Corpuscular Hgb 29.9 pg (27.0-32.0); Mean Corpuscular Volume 92.3 fL (81-99); Mean Platelet Vol. 10.9 fl (6.2-12.0); Platelet Count 292 K/mm3 (150-450); RBC Distribution Width CV 13.7 % (11.6-14.6); RBC Distribution Width SD 46.5 fl (35.1-43.9); Red Blood Count 3.24 M/mm3 (4.2-5.4); White Blood Count 11.3 K/mm3 (4.4-11.0)
[2024-08-27 08:32] LABS: Anion Gap 10 (5-15); BUN 62 mg/dL (7-18); BUN/Creat Ratio 17.9 RATIO (10-20); Calcium,Total 8.9 mg/dL (8.5-10.1); Chloride 106 mmol/L (98-107); Creatinine, Serum 3.47 mg/dL (0.55-1.02); EST Glomerular Filtration Rate 14 mL/min (>60); Est Glom Filt Rate - Afr Amer 17 mL/min (>60); Glucose 122 mg/dL (74-106); Potassium 3.5 mmol/L (3.5-5.1); Sodium Level 139 mmol/L (136-145)
[2024-08-27 10:54] LABS: Protein, Urine (Random) 131.6 mg/dL (<11.9); Protein:Creat Ratio 3233 mg/g CRE (0-200)
== END ==
LOC: OLS.SW 05:00
PROVIDERS: PCP Family Medicine
DX: N17.9 Acute kidney failure, unspecified (principal)
CPT/HCPCS: 36415; 80048; 82570; 84156; 85027

== ENCOUNTER → 2024-08-31 | Outpatient (REF) | payer MEDICAID, SELFPAY ==
[2024-08-31 09:49] LABS: Cholesterol 127 mg/dL (200); High Density Lipoprotein 46 mg/dL; Triglycerides 241 mg/dL; Very Low Density Lipoprotein 48 mg/dL (5-40)
== END | disposition home or self-care (01) ==
LOC: OLS.SW 05:00
PROVIDERS: PCP Family Medicine; Visit Provider Internal Medicine
DX: E78.5 Hyperlipidemia, unspecified (principal)
CPT/HCPCS: 36415; 80061

== ENCOUNTER → 2024-09-21 | Outpatient (REF) | payer MEDICAID, SELFPAY ==
[2024-09-21 09:35] LABS: Bacteria 0 SEEN /hpf (None Seen); Mucous, Urine 0 SEEN /hpf (<or=2+); Red Blood Cells-Urine 0 SEEN /hpf (0-5)
[2024-09-21 10:05] LABS: Color, Urine Yellow (Yellow); Glucose, Dipstick 50 mg/dl (Normal); Ketone-Dipstick Negative (Negative); Leukocyte Esterase-Dipstick 500 /ul (Negative); Nitrite-Dipstick Negative (Negative); Occult Blood-Urine 25 /ul (Negative); Protein-Dipstick 100 mg/dl (Negative); Urine Bilirubin Dipstick Negative (Negative); Urine Clarity Sl. Cloudy (Clear); Urine Urobilinogen Normal (Normal); Urine pH 6.5 (5.0 - 8.0)
[2024-09-21 10:14] LABS: Squamous Epithelial Cells - UA 0-5 SEEN /hpf (5-10); White Blood Cells 25-50 SEEN /hpf (0-5)
== END | disposition home or self-care (01) ==
LOC: OLS.SW 05:00
PROVIDERS: PCP Family Medicine; Visit Provider Internal Medicine
DX: N39.0 Urinary tract infection, site not specified (principal)
CPT/HCPCS: 81001; 87086; 87088; 87186

== ENCOUNTER → 2024-11-30 | Outpatient (REF) | payer MEDICARE, MEDICAID, SELFPAY ==
[2024-11-30 08:39] LABS: Absolute Neutrophil Count 6.5 X10^3/uL (2.0-7.7); Basophil# 0.07 X10^3/uL; Basophil% 0.7 % (0-1); Eosinophil# 0.35 X10^3/uL; Eosinophils% 3.4 % (0-5); Hematocrit 28.3 % (37-47); Hemoglobin 9.5 g/dL (12.0-15.0); Lymphocyte % 22.4 % (19-41); Mean Corp Hgb Conc 33.6 g/dL (32-36); Mean Corpuscular Hgb 31.1 pg (27.0-32.0); Mean Corpuscular Volume 92.8 fL (81-99); Mean Platelet Vol. 10.1 fl (6.2-12.0); Monocyte# 0.97 X10^3/uL; Monocyte% 9.5 % (0-10); NRBC Flagged by Analyzer 0 % (0-5); Neutrophil # 6.46 X10^3/uL (2.7-7.7); Platelet Count 335 K/mm3 (150-450); RBC Distribution Width CV 11.9 % (11.6-14.6); RBC Distribution Width SD 40.1 fl (35.1-43.9); Red Blood Count 3.05 M/mm3 (4.2-5.4); White Blood Count 10.3 K/mm3 (4.4-11.0)
[2024-11-30 08:53] LABS: ALB/GLOB Ratio 1.8 RATIO (0.9-2.4); AST(SGOT) 17 U/L (<=31); Alanine Aminotransfer ALT/SGPT 12 U/L (<=34); Albumin, Serum 4.3 g/dL (3.4-4.8); Alkaline Phosphatase 73 U/L (35-104); Anion Gap 17 (5-15); BUN 49 mg/dL (4-19); BUN/Creat Ratio 12.9 RATIO (10-20); Calcium,Total 9.6 mg/dL (7.6-11.0); Carbon Dioxide 18.2 mmol/L (21.0-32.0); Chloride 105 mmol/L (98-108); Creatinine, Serum 3.82 mg/dL (0.70-1.20); EST Glomerular Filtration Rate 12 (>60); Globulin 2.4 g/dL (2.2-4.2); Glucose 93 mg/dL (70-99); Magnesium 2.1 mg/dL (1.5-2.2); Potassium 3.7 mmol/L (3.3-5.1); Protein, Total 6.7 g/dL (5.9-8.4); Sodium Level 140 mmol/L (133-145); Total Bilirubin 0.18 mg/dL (0.00-1.30)
== END ==
LOC: OLS.SW 04:00
PROVIDERS: PCP Family Medicine; Referring Provider Internal Medicine; Visit Provider Internal Medicine
DX: I48.91 Unspecified atrial fibrillation (principal); I10 Essential (primary) hypertension; E78.5 Hyperlipidemia, unspecified; R41.82 Altered mental status, unspecified
CPT/HCPCS: 36415; 80053; 83735; 85025

== ENCOUNTER → 2024-12-02 | Outpatient (REF) | payer MEDICARE, MEDICAID, SELFPAY ==
[2024-12-02 09:53] LABS: Hematocrit 28.2 % (37-47); Hemoglobin 9.8 g/dL (12.0-15.0); Mean Corp Hgb Conc 34.8 g/dL (32-36); Mean Corpuscular Hgb 32.1 pg (27.0-32.0); Mean Corpuscular Volume 92.5 fL (81-99); Mean Platelet Vol. 10.3 fl (6.2-12.0); Platelet Count 341 K/mm3 (150-450); RBC Distribution Width CV 11.9 % (11.6-14.6); RBC Distribution Width SD 39.9 fl (35.1-43.9); Red Blood Count 3.05 M/mm3 (4.2-5.4); White Blood Count 10.2 K/mm3 (4.4-11.0)
[2024-12-02 10:24] LABS: Anion Gap 17 (5-15); BUN 50 mg/dL (4-19); BUN/Creat Ratio 13.2 RATIO (10-20); Calcium,Total 9.4 mg/dL (7.6-11.0); Carbon Dioxide 19.6 mmol/L (21.0-32.0); Chloride 105 mmol/L (98-108); Creatinine, Serum 3.79 mg/dL (0.70-1.20); EST Glomerular Filtration Rate 12 (>60); Glucose 127 mg/dL (70-99); Potassium 3.7 mmol/L (3.3-5.1); Sodium Level 141 mmol/L (133-145); Vitamin D,25 Hydroxy 31.9 ng/mL (30-100)
[2024-12-02 11:22] LABS: Protein, Urine (Random) 96.5 mg/dL (0.0-12.0); Protein:Creat Ratio 1973 mg/g CRE (0-200)
== END ==
LOC: OLS.SW 05:00
PROVIDERS: PCP Family Medicine; Visit Provider Internal Medicine
DX: E78.5 Hyperlipidemia, unspecified (principal); I12.9 Hypertensive chronic kidney disease with stage 1 through stage 4 chronic kidney disease, or unspecified chronic kidney disease; I48.0 Paroxysmal atrial fibrillation; N18.9 Chronic kidney disease, unspecified
CPT/HCPCS: 36415; 80048; 82306; 82570; 84156; 85027

== ENCOUNTER → 2025-01-13 | Outpatient (REF) | payer MEDICARE, MEDICAID, SELFPAY ==
[2025-01-13 10:34] LABS: Vitamin D,25 Hydroxy 57.4 ng/mL (30-100)
== END ==
LOC: OLS.SW 05:00
PROVIDERS: PCP Family Medicine; Visit Provider Internal Medicine
DX: E55.9 Vitamin D deficiency, unspecified (principal)
CPT/HCPCS: 36415; 82306

== ENCOUNTER → 2025-02-12 07:15 | Outpatient (REF) | payer MEDICARE, MEDICAID, SELFPAY ==
[2025-02-12 09:22] LABS: Magnesium 2.2 mg/dL (1.5-2.2)
== END ==
LOC: OLS.SW 07:15
PROVIDERS: PCP Family Medicine; Visit Provider Family Medicine
DX: N18.9 Chronic kidney disease, unspecified (principal); I48.0 Paroxysmal atrial fibrillation; M62.81 Muscle weakness (generalized); I25.2 Old myocardial infarction
CPT/HCPCS: 36415; 83735

== ENCOUNTER → 2025-03-30 | Outpatient (REF) | payer MEDICARE, MEDICAID, SELFPAY ==
[2025-03-30 07:13] LABS: Mucous, Urine 0 SEEN /hpf (<or=2+); Red Blood Cells-Urine 0 SEEN /hpf (0-5)
[2025-03-30 08:11] LABS: Color, Urine Yellow (Yellow); Glucose, Dipstick 100 mg/dl (Normal); Ketone-Dipstick Negative (Negative); Leukocyte Esterase-Dipstick 500 /ul (Negative); Nitrite-Dipstick Negative (Negative); Occult Blood-Urine 25 /ul (Negative); Protein-Dipstick 100 mg/dl (Negative); Specific Gravity, Urine 1.010 (1.002-1.030); Urine Bilirubin Dipstick Negative (Negative)
[2025-03-30 08:33] LABS: Transitional Epithelial - Ur 0-5 SEEN /hpf (0-5)
[2025-03-30 08:34] LABS: Squamous Epithelial Cells - UA 0-5 SEEN /hpf (5-10)
== END ==
LOC: OLS.SW 01:10
PROVIDERS: PCP Family Medicine; Visit Provider Family Medicine
DX: R41.82 Altered mental status, unspecified (principal); R82.90 Unspecified abnormal findings in urine
CPT/HCPCS: 81001; 87077; 87086; 87088; 87186

== ENCOUNTER → 2025-04-06 | Outpatient (REF) | payer MEDICARE, MEDICAID, SELFPAY ==
[2025-04-06 08:58] LABS: Hematocrit 27.1 % (37-47); Hemoglobin 8.9 g/dL (12.0-15.0); Mean Corp Hgb Conc 32.8 g/dL (32-36); Mean Corpuscular Volume 94.8 fL (81-99); Mean Platelet Vol. 10.6 fl (6.2-12.0); Platelet Count 301 K/mm3 (150-450); RBC Distribution Width CV 12.3 % (11.6-14.6); RBC Distribution Width SD 42.8 fl (35.1-43.9); Red Blood Count 2.86 M/mm3 (4.2-5.4); White Blood Count 9.2 K/mm3 (4.4-11.0)
[2025-04-06 09:20] LABS: AST(SGOT) 18 U/L (<=31); Alanine Aminotransfer ALT/SGPT 14 U/L (<=34); Albumin, Serum 4.3 g/dL (3.4-4.8); Alkaline Phosphatase 83 U/L (35-104); Anion Gap 16 (5-15); BUN 55 mg/dL (4-19); BUN/Creat Ratio 12.3 RATIO (10-20); Calcium,Total 9.5 mg/dL (7.6-11.0); Carbon Dioxide 21.7 mmol/L (21.0-32.0); Chloride 103 mmol/L (98-108); Globulin 2.3 g/dL (2.2-4.2); Glucose 139 mg/dL (70-99); Potassium 4.0 mmol/L (3.3-5.1)
[2025-04-08 17:08] LABS: KEPPRA (LEVETIRACETAM) 11.2 ug/mL (10.0-40.0)
== END ==
LOC: OLS.SW 04:00
PROVIDERS: PCP Family Medicine; Referring Provider Family Medicine; Visit Provider Family Medicine
DX: Z79.899 Other long term (current) drug therapy (principal)
CPT/HCPCS: 36415; 80053; 80177; 84100; 85027

== ENCOUNTER → 2025-05-04 05:00 | Outpatient (REF) | payer MEDICARE, MEDICAID, SELFPAY ==
[2025-05-04 09:37] LABS: Hematocrit 25.9 % (37-47); Hemoglobin 8.5 g/dL (12.0-15.0); Mean Corp Hgb Conc 32.8 g/dL (32-36); Mean Corpuscular Volume 95.9 fL (81-99); Mean Platelet Vol. 10.8 fl (6.2-12.0); Platelet Count 301 K/mm3 (150-450); RBC Distribution Width CV 12.6 % (11.6-14.6); RBC Distribution Width SD 43.2 fl (35.1-43.9); Red Blood Count 2.70 M/mm3 (4.2-5.4); White Blood Count 8.4 K/mm3 (4.4-11.0)
[2025-05-04 10:05] LABS: AST(SGOT) 16 U/L (<=31); Alanine Aminotransfer ALT/SGPT 14 U/L (<=34); Albumin, Serum 4.2 g/dL (3.4-4.8); Alkaline Phosphatase 78 U/L (35-104); Anion Gap 15 (5-15); BUN 56 mg/dL (4-19); BUN/Creat Ratio 11.7 RATIO (10-20); Calcium,Total 9.1 mg/dL (7.6-11.0); Carbon Dioxide 21.5 mmol/L (21.0-32.0); Chloride 103 mmol/L (98-108); Globulin 2.3 g/dL (2.2-4.2); Glucose 131 mg/dL (70-99); Potassium 3.6 mmol/L (3.3-5.1)
== END ==
LOC: OLS.SW 05:00
PROVIDERS: PCP Family Medicine; Visit Provider Internal Medicine Nephrology
DX: N18.5 Chronic kidney disease, stage 5 (principal)
CPT/HCPCS: 36415; 80053; 84100; 85027

== ENCOUNTER → 2025-05-17 | Outpatient (CLI) | payer MEDICARE, MEDICAID, SELFPAY ==
[2025-05-17 16:03] LABS: Ammonia 16.9 umol/L (11-51)
[2025-05-17 16:45] LABS: Ferritin 936 ng/mL (22-378); Iron 106 ug/dL (50-170); Magnesium 2.2 mg/dL (1.5-2.2); Vitamin B12 676 pg/mL (180-914)
--- OUTSIDE RECORDS SUMMARY | 2025-05-17 21:01 | XMS RPT_ITS | CCD ---
Author Organization [facility] Care Team Providers Care Couples Therapist Name Role Phone Dr. Awa Hargrove Primary Care Provider Dr. Valentin Ceballos Emergency Provider Dr. Melecio Torrez Admit Provider Unavailable Dr. Melecio Torrez Attending Provider Unavailab Dr. Melecio Martinez Other Provider Unavailable Dr. Ronald Lowe Attending Provider Unavailable Chrissy, Dr. Cardenas Other Provider Unavailable David, Dr. Masterson Other Provider David, Dr. Masterson Attending Provider Dr. Awa Hargrove Primary Care Provider Dr. Zelalem Hernandez Attending Provider David, Dr. Masterson Referring Provider Dr. Valentin Ceballos Referring Provider Dr. Awa Hargrove Primary Care Provider Dr. Raisa Calhoun Emergency Provider [phone] Dr. Jules Hudson Attending Provider Dr. Claudy Munoz Admit Provider Dr. Claudy Munoz Other Provider Dr. Phillip Kingsley Attending Provider Dr. Jules Hudson Other Provider Dr. Ronald Lowe Attending Provider Unavailable Chrissy, Dr. Cardenas Other Provider Unavailable Awa Hargrove DO Primary Care Provider Dr. Phuc Barker MD Primary Care Provider [facility] Attending Provid er Unavailable Lucita LOUIS, Dr. Vaughn Attending Provider Unavailej Landrum MD, Dr. Vaughn Referring Provider Unavailej Barker MD, Dr. Friend Primary Care Provider Lucita LOUIS, Dr. Vaughn Attending Provider UnavailDevendra Tejada DO Primary Care Provider [phone] DEVENDRA BEVERLY Primary Care Unavailable SULTANA GARCIA Referring Unavailable DEVENDRA BEVERLY Primary Care Unavailable BERNARDO, JAYAPRASHAILA R Referring Unavailabl e SULTANA GARCIA Attending Unavailable Phuc Barker Primary Care Unavailable Devendra Fernández Attending Unavailable Hawa Butler Admitting Unavailable Phuc Barker Primary Care Unavailable Patrice Penny Consulting Unavailable Alejo Kunz Attending Unavailable Dylan Wynne Consulting Unavailable Kaylee Dior Consulting Unavailable Cynthia Snyder Consulting Unavailable Shruthi Schneidercia Consulting Unavailable Conor Cortes Consulting Unavailable Gabi Glaser Consulting Unavailable Alex Talley Consulting Unavailable Nathaniel Lua Consulting Unavailable Willis Huang Consulting Unavailable Scarlet Dudley Consulting Unavailable Tony Schaffer Consulting Unavailable Magui Dee Consulting Unavailable Kiana Goodwin Consulting Unavailable Karma Rawls Consulting UnavailDiego Fink Consulting Unavailable Wai Wheatley Consulting Unavailable Phan Alexander Consulting Unavailable Vernell Segovia Consulting Unavailable Rodolfo Chapman Consulting Unavailable Hawa Butler Consulting Unavailable Cha Peace Consulting Unavailable Doe Jeffery Consulting Unavailable Ryan Torrez Consulting Unavailable NEGRA DICKEY Consulting Unavailable Martin Rowan Consulting Unavailable Gogo Asif Consulting Unavailable Alejo Kunz Consulting Unavailable Adams Nieto Attending Unavailable Tanphaichitr, Natthavat Consulting UnavailAdams Martínez Consulting Unavailable Phuc Barker Primary Care Unavailable Devendra Fernández Referring Unavailable Devendra Fernández Attending Unavailable Phuc Barker Primary Care Unavailable Devendra Fernández Attending Unavailable Phuc Barker Primary Care Unavailable Johana Mckinley Attending Unavailable Phuc Barker Primary Care Unavailable Johana Mckinley Attending Unavailable Phuc Barker Primary Care Unavailable Armando Briones Attending UnavailPhuc William Primary Care Unavailable Bonnie Simmons Attending Unavailable Barker, Phuc Primary Care Unavailable Carmen Cates Attending UnavailHawa Castillo Attending Unavailable Barker, Phuc Primary Care Unavailable [facility] Attending Unavailable Phuc Hampton Attending Unavailable Delvin, Awa Primary Care Unavailable Barker, Phuc Primary Care Unavailable Angeldla Johana MCCLELLAND Attending Unavailable Gudla KRYSTIN Johana Referring Unavailable Malys, Awa Primary Care Unavailable Eulogio Browne Attending Unavailable Eulogio Browne Referring Unavailable Hawa Butler Admitting Unavailable Barker, Phuc Primary Care Unavailable Patrice Penny Consulting Unavailable Adams Nieto Attending Unavailable Dylan Wynne Consulting Unavailable Kaylee Dior Consulting Unavailable Cynthia Snyder Consulting Unavailable Joana Schneider Consulting Unavailable Conor Cortes Consulting Unavailable Gabi Glaser Consulting Unavailable Alex Talley Consulting Unavailable Nathaniel Lua Consulting Unavailable Willis Huang Consulting Unavailable Scarlet Dudley Consulting Unavailable Tony Schaffer Consulting Unavailable Magui Dee Consulting Unavailable RidKiana reyes Consulting Unavailable Zalizet, Mhd Ronaldo Consulting UnavailDiego Fink Consulting Unavailable Wai Wheatley Consulting Unavailable Phan Alexander Consulting Unavailable Vernell Segovia Consulting Unavailable Rodolfo Chapman Consulting Unavailable Hawa Butler Consulting Unavailable Cha Peace Consulting Unavailable Doe Jeffery Consulting Unavailable Ryan Torrez Consulting Unavailable NEGRA DICKEY Consulting Unavailable Martin Rowan Consulting Unavailable Gogo Asif Consulting Unavailable Alejo Kunz Consulting Unavailable Tanphaichitr, Natthavat Consulting Unavaila ble Barker, Phuc Primary Care Unavailable Gudla KRYSTIN, Johana Attending Unavailable Barker, Phuc Primary Care Unavailable Lucya KRYSTIN Johana Attending Unavailable Delvin, Awa Primary Care Unavailable Phuc Hampton Attending Unavailable Mj LOUIS, Dr. Friend Primary Care Provider Rush LOUIS, Dr. Ramsay Attending Provider Unavail able Dr. Devendra Beverly MD Referring Provider Unavail able Dr. Bonnie Simmons MD Attending Provider Dr. Phuc Barker MD Referring Provider Caitlyn LOUIS, Dr. Baltazar Attending Provider Allergies Allergy Classification Reported Allergen(s) Allergy Type Date of Onset Reaction(s) Facility (10 sources) amLODIPine; Translations: [AMLODIPINE] Drug Allergy 09-13-2016 Other: See Comments [facility] (5 sources) Aspartame; Translations: [ASPARTAME] Drug Allergy 04-20-2025 Other: See Comments [facility] Comment on above: feet & legs Medications Current Medications Medication Drug Class(es) Dates Sig (Normalized) Sig (Original) acetaminophen 325 mg oral tablet (10 sources) Start: 07-22-2024 take 2 tablets by mouth every four hours as needed for pain Acetaminophen 325 mg Tablet Active 650 mg PO EVERY 4 HOURS NEEDED as needed for Fever, pain 0 0 July 22, 2024 1:00am take 650 mg rectal r oute every four hours as needed acetaminophen (TYLENOL) 650 mg supposito ry 650 mg by RECTAL route every 4 hours as needed for fever (specify temp.) or pain. Suspended atorvastatin 40 mg oral tablet (15 sources) HMG-CoA Reductase Inhibitor Start: 07-16-2024 take 1 tablet by mouth once daily Atorvastatin 40 mg tablet Active 40 mg PO DAILY July 16, 2024 1:00am Start: 07-27-2023 End: 12-01-2023 take 1 tablet by mouth at bedtime Atorvastatin 40 mg Tablet Discontinued 40 mg PO AT BEDTIME 60 0 July 27, 2023 1:00am December 01, 2023 2:17pm B Complex-Vitamin C-Folic Ac id (KAVIN-MARCELLA) 0.8 mg tab (5 sources) take 1 tablet by mouth once daily B Complex-Vitamin C-Folic Acid (KAVIN-MARCELLA) 0.8 mg tab Take 1 tablet by mouth once daily. Active take 1 tablet by mouth once simin y B Complex-Vitamin C-Folic Acid (KAVIN-MARCELLA) 0.8 mg tab Take 1 tablet by mouth once daily. Suspended bisacodyl 10 mg rectal suppository (5 sources) Stimulant Laxative take 10 mg rectal route once daily as needed for constipation bisacodyl (DULCOLAX) 10 mg supp 10 mg by RECTAL route once daily as needed for constipation. Active cloNIDine hydrochloride 0.3 mg oral tablet (20 sources) Central alpha-2 Adrenergic Agonist Start: 023 take 0.2 mg by mouth every eight hours Clonidine Hcl 0.3 mg tablet Active 0.2 mg PO Q8H July 25, 2023 1:00am BP Start: 07-25-2023 take 0.3 mg by mouth every eight hours Clonidine Hcl Active 0.3 MG PO Q8H July 25, 2023 1:00am take 1 tablet by lakia th three times daily cloNIDine HCl (CATAPRES) 0.2 mg tablet Take 0.2 mg by mouth three times a day. Active take 1 tablet by lakia th three times daily cloNIDine HCl (CATAPRES) 0.3 mg tablet Take 0.3 mg by mouth three times a day. Active cranberry fruit (CRANBERRY) 450 mg tab (3 sources) take 1 tablet by mouth once daily cranberry fruit (CRANBERRY) 450 mg tab Take 450 mg by mouth once daily. Active Cranberry Fruit (1 source) Non-Standardized Food Allergenic Extract, Non-Standardized Plant Allergenic Extract Start: 05-17-20 take 1 tablet by mouth once daily Cranberry Fruit 450 mg tablet Active 450 mg PO daily May 17, 2025 12:00am administer with a meal enteric contrast (will be provided with radiology test) (4 sources) Start: 02-19-20 enteric contrast (will be provided with radiology test) For CT ABD/PEL W IVCON Routine order Administer, As Directed One Time Only, via Oral, Rectal, both Oral and Rectal, Enteric Tube, Stoma or Indwelling Catheter, Enteric Contrast as designated per enteric contrast guidelines 1 Each 0 02/19/2024 Active ergocalciferol 1.25 mg oral capsule (17 sources) Provitamin D2 Compound Start: 07-25-20 Ergocalciferol (Vitamin D2) (Vitamin D2) 1,250 mcg (50,000 unit) capsule Active 81305 U PO EVERY WEEK July 25, 2023 1:00am supplement famotidine 20 mg oral tablet (4 sources) Histamine-2 Receptor Antagonist Start: 05-17-20 25 take 1 tablet by mouth at bedtime Famotidine 20 mg tablet Active 20 mg PO AT BEDTIME May 17, 2025 12:00am take 1 tablet by lakia th once daily at bedtime famotidine (PEPCID) 20 mg tablet Take 20 mg by mouth daily at bedtime. Active fenofibrate 67 mg oral capsule (20 sources) Peroxisome Proliferator Receptor alpha Agonist Start: 07-16-2024 take 1 capsule by mouth once daily Fenofibrate Micronized 67 mg capsule Active 67 mg PO DAILY July 16, 2024 1:00am Start: 07-25-2023 End: 07-16-2024 take 1 tablet by mouth once daily Fenofibrate 54 mg tablet Discontinued 54 mg PO DAILY July 25, 2023 1:00am July 16, 2024 4:17am CHOLESTEROL folic acid/vit B complex and C (KAVIN-MARCELLA PO) (3 sources) take 1 tablet by mouth once daily folic acid/vit B complex and C (KAVIN-MARCELLA PO) Take 1 tablet by mouth once daily. Active guaiFENesin 40 mg/ml oral solution (5 sources) take 10 mL by mouth every four hours as needed guaiFENesin 200 mg/5 mL liqd Take 10 mL by mouth every 4 hours as needed (cough, congestion). Active iv contrast (will be provided with radiology test) (4 sources) Start: 02-19-2024 iv contrast (will be provided with radiology test) CT ABD/PEL -Inject, intravenously, once for 1 dose.No IV access, insert saline lock prior to the beginning of sedation, infusion, injection of imaging exam. Discontinue saline lock post exam. If Pt. has a central line or IVAD, may access for administration according to line specific nursing protocol. Once exam is complete flush line and de-access according to line specific nursing protocol in the CT contrast administration guidelines link. 1 Each 0 02/19/2024 Active levETIRAcetam 250 mg oral tablet (7 sources) Start: 05-17-2025 take 1 tablet by mouth twice daily Levetiracetam 250 mg tablet Active 250 mg PO TWICE A DAY May 17, 2025 12:00am Start: 07-22-2024 End: 07-24-2024 take 1 tablet by mouth twice daily Levetiracetam 250 mg Tablet Discontinued 250 mg PO TWICE A DAY 0 0 July 22, 2024 1:00am July 24, 2024 7:14am Start: 06-24-2024 take 1 tablet by lakia twice daily levETIRAcetam (KEPPRA) 500 mg tablet Take 1 tablet by mouth two times a day for 7 doses. 7 tablet 06/24/2024 Active mag hydrox/aluminum hyd/jeny th (ANTACID SUSPENSION ORAL) (5 sources) take 30 mL by mouth every four hours as needed mag hydrox/aluminum hyd/simeth (ANTACID SUSPENSION ORAL) Take 30 mL by mouth every 4 hours as needed (GI distress). Active take 30 mL by mouth every four hours as needed mag hydrox/aluminum hyd/simeth (ANTACID SUSPENSION ORAL) Take 30 mL by mouth every 4 hours as needed (GI distress). Suspended Magnesium (1 source) Start: 05-17-2025 take 2 tablets by mo [facility] once daily Magnesium 200 mg tablet Active 400 mg PO daily May 17, 2025 12:00am magnesium hydroxide 80 mg/ml oral suspension (5 sources) take 30 mL by mouth once daily as needed for constipation magnesium hydroxide (MILK OF MAGNESIA) 400 mg/5 mL suspension Take 30 mL by mouth once daily as needed for constipation. Active melatonin 3 mg oral capsule (8 sources) Start: 07-16-2024 take 1 capsule by mo [facility] at bedtime Melatonin 3 mg capsule Active 3 mg PO AT BEDTIME July 16, 2024 1:00am take 1 tablet by lakia once daily at bedtime melatonin 3 mg tablet Take 3 mg by mouth daily at bedtime. Active metoprolol tartrate 100 mg oral tablet (18 sources) beta-Adrenergic Shantel Start: 05-17-2025 take 1 tablet by mouth twice daily Metoprolol Tartrate 100 mg tablet Active 100 mg PO TWICE A DAY May 17, 2025 12:00am Start: 07-25-2023 End: 07-24-2024 take 1 tablet by mouth every twelve hours Metoprolol Tartrate 100 mg tablet Discontinued 100 mg PO Q12H July 25, 2023 1:00am July 24, 2024 7:13am BP take 1 tablet by lakia th twice daily metoprolol tartrate, short acting, (LOPRESSOR) 100 mg tablet Take 100 mg by mouth two times a day. Active Multivitamin preparation (9 sources) Start: 05-20-2019 take 1 tablet by mouth once daily multivitamin (TAB A MARCELLA ORAL) Take 1 tablet by mouth once daily. 05/20/2019 Active Start: 05-20-2019 take 1 tablet by lakia th once daily multivitamin (TAB A MARCELLA ORAL) Take 1 tablet by mouth once daily. 05/20/2019 Suspended Start: 05-20-2019 take 1 tablet by lakia th once daily multivitamin (TAB A MARCELLA ORAL) Take 1 tablet by mouth once daily. 0 05/20/2019 Active 24 hr NIFEdipine 90 mg extended release oral tablet (8 sources) Dihydropyridine Calcium Channel Shantel Start: 07-16-2024 take 1 tablet by mouth once daily Nifedipine 90 mg tablet extended release Active 90 mg PO DAILY July 16, 2024 1:00am take 1 tablet by lakia th once daily at bedtime NIFEdipine ER (PROCARDIA XL) 90 mg 24 hr tablet Take 90 mg by mouth daily at bedtime. Active nitroglycerin 0.4 mg sublingual tablet (8 sources) Nitrate Vasodilator Start: 07-16-2024 Nitroglycerin 0.4 mg tablet, sublingual Active 0.4 mg SL Q5M as needed for chest pain July 16, 2024 1:00am omeprazole 40 mg delayed release oral capsule (1 source) Proton Pump Inhibitor Start: 03-23-2024 End: 03-23-2025 take 1 capsule by mouth once daily omeprazole (PRILOSEC) 40 mg capsule Take 1 capsule by mouth once daily. 90 capsule 2 03/23/2024 03/23/2025 Active polyethylene glycol 3350 49597 mg powder for oral solution (5 sources) Osmotic Laxative polyethylene gl ycol 3350 (MIRALAX) 17 gram packet Take 17 g by mouth once daily as needed for constipation. Dissolve dose in 4 - 8 ounces of liquid and take as directed. Active sertraline 50 mg oral tablet (20 sources) Serotonin Reuptake Inhibitor Start: 05-17-2025 take 1 tablet by mouth once daily Sertraline 50 mg tablet Active 50 mg PO daily May 17, 2025 12:00am Start: 07-24-2024 End: 05-17-2025 Sertraline 100 mg tablet Discontinued 150 mg PO DAILY July 24, 2024 1:00am May 17, 2025 9:36am Start: 07-22-2024 End: 07-24-2024 Sertraline 100 mg tablet Discontinued 50 mg PO DAILY 0 30 0 July 22, 2024 2:14pm July 24, 2024 7:14am Start: 07-16-2024 End: 07-22-2024 take 1 tablet by mouth once daily Sertraline 100 mg tablet Discontinued 100 mg PO DAILY July 16, 2024 1:00am July 22, 2024 2:14pm Start: 07-16-2024 End: 07-22-2024 take 1 tablet by mouth once daily Sertraline 50 mg tablet Discontinued 50 mg PO DAILY July 16, 2024 1:00am July 22, 2024 2:09pm take 1 capsule by mo [facility] once daily at bedtime sertraline 150 mg capsule Take 150 mg by mouth daily at bedtime. Active sodium phosphate,mono-dibasi c (FLEET ENEMA GA) (3 sources) sodium phosphate ,mono-dibasic (FLEET ENEMA GA) 1 suppository by RECTAL route as needed. Active vit B comp no.8-mddbp-K-biot in (3 sources) Start: 07-16-2024 vit B comp no.4-uonij-I-biot in Active 1 {tbl} PO DAILY July 16, 2024 1:00am Completed/Discontinued Medications Medication Drug Class(es) Dates Sig (Normalized) Sig (Original) amLODIPine 5 mg oral tablet (7 sources) Dihydropyridine Calcium Channel Shantel Start: 07-27-2023 End: 12-01-2023 take 1 tablet by mouth once daily Amlodipine 5 mg Tablet Discontinued 5 mg PO DAILY 60 60 0 July 27, 2023 1:00am December 01, 2023 2:18pm apixaban 5 mg oral tablet (2 sources) Factor Xa Inhibitor take 1 tablet by mouth twice daily apixaban (ELIQUIS) 5 mg tab(s) Take 5 mg by mouth two times a day. Suspended aspirin 81 mg oral tablet (7 sources) Platelet Aggregation Inhibitor, Nonsteroidal Anti-inflammatory Drug Start: 07-27-2023 End: 12-01-2023 take 1 capsule by mouth once daily Aspirin 81 mg capsule Discontinued 81 mg PO DAILY 60 0 July 27, 2023 1:00am December 01, 2023 2:17pm busPIRone hydrochloride 5 mg oral tablet (8 sources) Start: 07-16-2024 End: 05-17-2025 take 1 tablet by mouth once daily Buspirone 5 mg tablet Discontinued 5 mg PO DAILY July 16, 2024 1:00am May 17, 2025 9:40am take 2.5 mg by mouth twice daily busPIRone (BUSPAR) 5 mg tablet Take 2.5 mg by mouth two times a day. Active calcium chloride 0.0014 meq/ml / potassium chloride 0.004 meq/ml / sodium chloride 0.103 meq/ml / sodium lactate 0.028 meq/ml injectable solution (2 sources) Start: 03-23-2024 End: 03-24-2024 lactated ringers iv infusion ciprofloxacin 250 mg oral tablet (2 sources) Quinolone Antimicrobial Start: 06-18-2024 End: 06-25-2024 take 1 tablet by mouth twice daily ciprofloxacin HCl (CIPRO) 250 mg tablet Take 250 mg by mouth two times a day. 06/18/2024 06/25/2024 Suspended clopidogrel 75 mg oral tablet (2 sources) P2Y12 Platelet Inhibitor take 1 tablet by mouth once daily clopidogrel (PLAVIX) 75 mg tablet Take 75 mg by mouth once daily. Suspended docusate sodium 50 mg / sennosides, alf 8.6 mg oral tablet (3 sources) Start: 07-22-2024 End: 07-24-2024 Sennosides-Docusate Sodium (Stimulant Laxative Plus) 8.6-50 mg Tablet Discontinued 2 {tbl} PO TWICE A DAY 0 0 July 22, 2024 1:00am July 24, 2024 7:13am hydroCHLOROthiazide 25 mg oral tablet (7 sources) Thiazide Diuretic Start: 07-27-2023 End: 12-01-2023 take 1 tablet by mouth at breakfast Hydrochlorothiazide 25 mg Tablet Discontinued 25 mg PO WITH BREAKFAST 60 0 July 27, 2023 1:00am December 01, 2023 2:18pm lisinopril 40 mg oral tablet (17 sources) Angiotensin Converting Enzyme Inhibitor Start: 07-25-2023 End: 07-16-2024 take 1 tablet by mouth twice daily Lisinopril 40 mg tablet Discontinued 40 mg PO TWICE A DAY July 25, 2023 1:00am July 16, 2024 4:20am BP magnesium oxide 200 mg oral tablet (11 sources) Start: 07-22-2024 End: 05-17-2025 take 1 tablet by mouth once daily Magnesium Oxide 200 mg magnesium tablet Discontinued 200 mg PO DAILY 0 30 0 July 22, 2024 2:14pm May 17, 2025 9:32am Start: 07-16-2024 End: 07-22-2024 take 1 tablet by mouth twice daily Magnesium Oxide 200 mg magnesium tablet Discontinued 200 mg PO TWICE A DAY July 16, 2024 1:00am July 22, 2024 2:14pm take 0.5 tablet by m outh twice daily magnesium oxide 400 mg magnesium tab Take 0.5 tablets by mouth two times a day. Active Multivitamin With Folic Acid (Tab-A-Marcella) 400 mcg tablet (8 sources) Start: 07-25-2023 End: 07-16-2024 Multivitamin With Folic Acid (Tab-A-Marcella) 400 mcg tablet Discontinued 1 {tbl} PO DAILY July 25, 2023 1:00am July 16, 2024 4:20am supplement Start: 07-25-2023 End: 07-16-2024 Multivitamin With Folic Acid (Tab-A-Marcella) 400 mcg tablet Discontinued 1 {tbl} PO DAILY July 25, 2023 1:00am July 16, 2024 4:20am Start: 07-25-2023 take 1 tablet by lakia th once daily Multivitamin With Folic Acid (Tab-A-Marcella) 400 mcg tablet Active 1 TABLET PO DAILY July 25, 2023 1:00am Start: 07-25-2023 take 1 tablet by lakia th once daily Multivitamin With Folic Acid (Tab-A-Marcella) 400 mcg tablet Active 1 TABLET PO DAILY July 25, 2023 12:00am pantoprazole 40 mg delayed release oral tablet (9 sources) Proton Pump Inhibitor Start: 12-03-2023 End: 07-22-2024 take 1 tablet by mouth once daily Pantoprazole (Protonix) 40 mg tablet,delayed release (DR/EC) Discontinued 40 mg PO DAILY 60 0 December 03, 2023 12:00am July 22, 2024 2:12pm sodium bicarbonate 650 mg oral tablet (9 sources) Start: 07-22-2024 End: 07-24-2024 take 1 tablet by mouth four times daily Sodium Bicarbonate 650 mg Tablet Discontinued 650 mg PO 4 TIMES DAILY 0 0 July 22, 2024 1:00am July 24, 2024 7:14am Start: 06-24-2024 take 1 tablet by lakia th three times daily Sodium Bicarbonate 650 mg Tablet Active 650 mg PO THREE TIMES A DAY July 24, 2024 1:00am sodium phosphate, dibasic 59.3 mg/ml / sodium phosphate, monobasic 161 mg/ml enema (2 sources) sodium phosphate -sodium bisphosphate (FLEET ENEMA) enema 1 Enema by RECTAL route as needed for constipation. Suspended spironolactone 25 mg oral tablet (12 sources) Aldosterone Antagonist Start: 07-25-20 End: 07-22-20 take 1 tablet by mouth once daily Spironolactone 25 mg tablet Discontinued 25 mg PO DAILY July 25, 2023 1:00am July 22, 2024 2:09pm DIURESIS sucralfate 1000 mg oral tablet (7 sources) Aluminum Complex Start: 12-03-19 End: 07-22-20 take 1 tablet by mouth twice daily Sucralfate 1 gram tablet Discontinued 1 g PO TWICE A DAY December 17, 2023 2:26pm July 22, 2024 2:10pm Problems Active Problems Problem Classification Problem Date Documented Da te Episodic/Chronic Acute and unspecified renal failure (5 sources) Acute renal failure syndrome; Translations: [Acute kidney failure, unspecified] Onset: 4 07-30-2024 Episodic Acute cerebrovascular disease (14 sources) Hematoma of subdural space of neuraxis; Translations: [SDH (subdural hematoma) (HCC)] Onset: 4 06-20-2024 Chronic Acute myocardial infarction (10 sources) Myocardial infarction; Translations: [Non-ST elevation (NSTEMI) myocardial infarction] Onset: 5 07-25-2023 Chronic Appendicitis and other appendiceal conditions (7 sources) Disorder of appendix; Translations: [Disease of appendix, unspecified] 12-01-2023 Episodic Cardiac dysrhythmias (5 sources) Paroxysmal atrial fibrillation; Translations: [Paroxysmal atrial fibrillation] Onset: 5 07-16-2024 Chronic Chronic kidney disease (20 sources) Chronic kidney disease; Translations: [Chronic kidney disease, unspecified] Onset: 4 Resolved: 4 07-25-2023 Chronic Coronary atherosclerosis and other heart disease (9 sources) Coronary arteriosclerosis; Translations: [Atherosclerotic heart disease of [place] coronary artery without angina pectoris] Onset: 4 03-23-2024 Chronic Deficiency and other anemia (3 sources) Anemia; Translations: [Anemia, unspecified] 04-20-2025 Episodic Deficiency and other anemia (1 source) Anemia, unspecified; Translations: [Anemia, unspecified type] Onset: 5 Episodic Delirium, dementia, and amnestic and other cognitive disorders (2 sources) Dementia; Translations: [Unspecified dementia without behavioral disturbance] 05-17-2025 Chronic Diseases of white blood cells (7 sources) Leukocytosis; Translations: [Elevated white blood cell count, unspecified] 12-01-2023 Chronic Disorders of lipid metabolism (13 sources) Mixed hyperlipidemia; Translations: [Mixed hyperlipidemia] Onset: 4 03-23-2024 Chronic Essential hypertension (20 sources) Hypertensive disorder; Translations: [Resistant hypertension] Onset: 4 07-25-2023 Chronic Gastroduodenal ulcer (except hemorrhage) (5 sources) Ulcer of duodenum; Translations: [Duodenal ulcer, unspecified as acute or chronic, without hemorrhage or perforation] 12-03-2023 Chronic Gastrointestinal hemorrhage (11 sources) Duodenal ulcer with hemorrhage; Translations: [Chronic or unspecified duodenal ulcer with hemorrhage] Onset: 4 02-19-2024 Chronic Gastrointestinal hemorrhage (7 sources) Upper gastrointestinal bleeding; Translations: [Gastrointestinal hemorrhage, unspecified] 12-01-2023 Episodic Genitourinary symptoms and ill-defined conditions (1 source) Unspecified abnormal findings in urine; Translations: [Unspecified abnormal findings in urine] Onset: 5 Episodic Hypertension with complications and secondary hypertension (9 sources) Hypertensive emergency; Translations: [Hypertensive emergency] 07-25-2023 Chronic Malaise and fatigue (1 source) Asthenia; Translations: [Weakness] 05-17-2025 Episodic Nonspecific chest pain (4 sources) Chest pain; Translations: [Chest pain, unspecified] Onset: 5 08-01-2024 Episodic Nutritional deficiencies (1 source) Vitamin D deficiency, unspecified; Translations: [Vitamin D deficiency, unspecified] Onset: Chronic Open wounds of head; neck; and trunk (4 sources) Complex laceration of forehead; Translations: [Laceration without foreign body of other part of head, initial encounter] Onset: 5 06-26-2024 Episodic Osteoporosis (5 sources) Senile osteoporosis; Translations: [Age-related osteoporosis without current pathological fracture] Onset: 4 06-19-2024 Chronic Other aftercare (3 sources) Drug therapy finding; Translations: [skilled nursing (current) use of anticoagulants] 06-26-2024 Episodic Other aftercare (2 sources) Other alf (current) drug therapy; Translations: [Other alf (current) drug therapy] Onset: 5 Episodic Other connective tissue disease (1 source) Muscle weakness (generalized); Translations: [Muscle weakness (generalized)] Onset: 5 Episodic Other disorders of stomach and duodenum (5 sources) Mass of duodenum; Translations: [Other diseases of stomach and duodenum] 12-01-2023 Episodic Other disorders of stomach and duodenum (2 sources) Other diseases of stomach and duodenum; Translations: [Other specified disorders of stomach and duodenum] 12-01-2023 Episodic Other endocrine disorders (11 sources) Adrenal mass; Translations: [Other specified disorders of adrenal gland] Onset: 4 02-19-2024 Chronic Other infections; including parasitic (7 sources) Disorder due to infection; Translations: [Unspecified infectious disease] 07-25-2023 Episodic Other infections; including parasitic (2 sources) Unspecified infectious disease; Translations: [Unspecified infectious and parasitic diseases] 07-27-2023 Episodic Other nervous system disorders (3 sources) Aphasia; Translations: [Aphasia] 07-30-2024 Chronic Other nervous system disorders (2 sources) Aphasia; Translations: [Aphasia] Onset: 4 Chronic Residual codes; unclassified (6 sources) Altered mental status; Translations: [Altered mental status, unspecified] 07-30-2024 Episodic Residual codes; unclassified (2 sources) Altered mental status, unspecified; Translations: [Altered mental status, unspecified] Onset: 5 Episodic Spondylosis; intervertebral disc disorders; other back problems (7 sources) Backache; Translations: [Dorsalgia, unspecified] 12-01-2023 Episodic Thyroid disorders (1 source) Hypothyroidism, unspecified; Translations: [Hypothyroidism, unspecified] Onset: Chronic Past or Other Problems Problem Classification Problem Date Documented Da te Episodic/Chronic Deficiency and other anemia (5 sources) Chronic anemia; Translations: [Anemia, unspecified] Onset: 06-19-2024 06-19-2024 Episodic E Codes: Fall (5 sources) Fall; Translations: [Unspecified fall, initial encounter] Onset: 06-19-2024 06-19-2024 Episodic Fluid and electrolyte disorders (5 sources) Hyponatremia; Translations: [Hypo-osmolality and hyponatremia] Onset: 06-19-2024 Resolved: 06-24-2024 06-19-2024 Episodic Other non-traumatic joint disorders (9 sources) Pain in left knee; Translations: [Pain in joint, lower leg] Onset: 09-13-2016 02-19-2024 Episodic Urinary tract infections (1 source) Urinary tract infection, site not specified; Translations: [Urinary tract infection, site not specified] Onset: 10-14-2024 Episodic Results Test Name Value Interpretation Reference Range Facility Anion gap in Serum or Plasma Ordered By: Bonnie Simmons on 05-04-2025 Anion gap [Moles/Vol] 15 mmol/L 5- [facility] BUN/creatinine ratioOrdered By: Bonnie Simmons on 05-04-2025 Urea nitrogen/Creatinine [Mass ratio] 11.7 mg/mg 06-21 [facility] Bilirubin, totalOrdered By: Bonnie Simmons on 05-04-2025 Bilirubin [Mass/Vol] 0.27 mg/dL 0.00-1.30 [facility] CBC-Complete Blood Cnt No Di ffon 05-04-2025 Erythrocyte distribution width (RBC) [Ratio] 12.6 % Normal 11.6-14.6 [facility] Comment on above: Order Comment: 516-1 Performed By: #### L 500.4050, L501.2300, L100.0500 ####[facility] [address] [place], [address] Hematocrit (Bld) [Volume fraction] 25.9 % Low 37-47 [facility] Comment on above: Order Comment: 516-1 Performed By: #### L 500.4050, L501.2300, L100.0500 ####[facility] [address] [place], [address] Hemoglobin (Bld) [Mass/Vol] 8.5 g/dL Low 12.0-15.0 [facility] Comment on above: Order Comment: 516-1 Performed By: #### L 500.4050, L501.2300, L100.0500 ####[facility] [address] [place], [address] MCH (RBC) [Entitic mass] 31.5 pg Normal 27.0-32.0 [facility] Comment on above: Order Comment: 516-1 Performed By: #### L 500.4050, L501.2300, L100.0500 ####[facility] [address] [place], [address] MCHC (RBC) [Mass/Vol] 32.8 g/dL Normal 32-36 [facility] Comment on above: Order Comment: 516-1 Performed By: #### L 500.4050, L501.2300, L100.0500 ####[facility] [address] [place], [address] MCV (RBC) [Entitic vol] 95.9 fL Normal 81-99 [facility] Comment on above: Order Comment: 516-1 Performed By: #### L 500.4050, L501.2300, L100.0500 ####[facility] [address] [place], [address] Platelet mean volume (Bld) [Entitic vol] 10.8 fL Normal 6.2-12.0 [facility] Comment on above: Order Comment: 516-1 Performed By: #### L 500.4050, L501.2300, L100.0500 ####[facility] [address] [place], [address] Platelets (Bld) [#/Vol] 301 10*3/uL Normal 150-450 [facility] Comment on above: Order Comment: 516-1 Performed By: #### L 500.4050, L501.2300, L100.0500 ####[facility] [address] [place], [address] RBC (Bld) [#/Vol] 2.70 10*6/uL Low 4.2-5.4 [facility] Comment on above: Order Comment: 516-1 Performed By: #### L 500.4050, L501.2300, L100.0500 ####[facility] [address] [place], [address] RDW SD 43.2 fl Normal 35.1-43.9 [facility] Comment on above: Order Comment: 516-1 Performed By: #### L 500.4050, L501.2300, L100.0500 ####[facility] [address] [place], [address] WBC (Bld) [#/Vol] 8.4 10*3/uL Normal 4.4-11.0 [facility] Comment on above: Order Comment: 516-1 Performed By: #### L 500.4050, L501.2300, L100.0500 ####[facility] [address] [place], [address] Carbon dioxide, total [Moles /volume] in Central venous bloodOrdered By: Bonnie Simmons on 05-04-2025 CO2 [Moles/Vol] 21.5 mmol/L 21.0-32.0 [facility] Chloride assayOrdered By: Nick Simmons on 05-04-2025 Chloride [Moles/Vol] 103 mmol/L 98-108 [facility] Comprehensive Metabolic Prof ilon 05-04-2025 Albumin [Mass/Vol] 4.2 g/dL Normal 3.4-4.8 [facility] Comment on above: Order Comment: 516-1 Performed By: #### L 500.4050, L501.2300, L100.0500 ####[facility] [address] [place], [address] Albumin/Globulin [Mass ratio] 1.9 {ratio} Normal 0.9-2.4 [facility] Comment on above: Order Comment: 516-1 Performed By: #### L 500.4050, L501.2300, L100.0500 ####[facility] [address] [place], [address] ALK PHOS 78 U/L Normal 35-104 [facility] Comment on above: Order Comment: 516-1 Performed By: #### L 500.4050, L501.2300, L100.0500 ####[facility] [address] [place], [address] ALT [Catalytic activity/Vol] 14 U/L Normal <=34 [facility] Comment on above: Order Comment: 516-1 Performed By: #### L 500.4050, L501.2300, L100.0500 ####[facility] [address] [place], [address] AST [Catalytic activity/Vol] 16 U/L Normal <=31 [facility] Comment on above: Order Comment: 516-1 Performed By: #### L 500.4050, L501.2300, L100.0500 ####[facility] [address] [place], [address] Bilirubin [Mass/Vol] 0.27 mg/dL Normal 0.00-1.30 [facility] Comment on above: Order Comment: 516-1 Performed By: #### L 500.4050, L501.2300, L100.0500 ####[facility] [address] [place], [address] BUN/CRE 11.7 RATIO Normal 10-20 [facility] Comment on above: Order Comment: 516-1 Performed By: #### L 500.4050, L501.2300, L100.0500 ####[facility] [address] [place], [address] Calcium [Mass/Vol] 9.1 mg/dL Normal 7.6-11.0 [facility] Comment on above: Order Comment: 516-1 Performed By: #### L 500.4050, L501.2300, L100.0500 ####[facility] [address] [place], [address] Chloride [Moles/Vol] 103 mmol/L Normal 98-108 [facility] Comment on above: Order Comment: 516-1 Performed By: #### L 500.4050, L501.2300, L100.0500 ####[facility] [address] [place], [address] CO2 [Moles/Vol] 21.5 mmol/L Normal 21.0-32.0 [facility] Comment on above: Order Comment: 516-1 Performed By: #### L 500.4050, L501.2300, L100.0500 ####[facility] [address] [place], [address] Creatinine [Mass/Vol] 4.78 mg/dL High 0.70-1.20 [facility] Comment on above: Order Comment: 516-1 Performed By: #### L 500.4050, L501.2300, L100.0500 ####[facility] [address] [place], [address] GAP 15 Normal 5-15 [facility] Comment on above: Order Comment: 516-1 Performed By: #### L 500.4050, L501.2300, L100.0500 ####[facility] [address] [place], [address] GFR/1.73 sq M.predicted among non-blacks MDRD (S/P/Bld) [Vol rate/Area] 9 mL/min/{1.73_m2} Low >60 [facility] Comment on above: Order Comment: - Result Comment: mL/m in/1.73m2 CKD-EPI Creatinine Equation (2020) Performed By: #### L 500.4050, L501.2300, L100.0500 ####[facility] [address] [place], [address] Globulin (S) [Mass/Vol] 2.3 g/dL Normal 2.2-4.2 [facility] Comment on above: Order Comment: 51- Performed By: #### L 500.4050, L501.2300, L100.0500 ####[facility] [address] [place], [address] Glucose [Mass/Vol] 131 mg/dL High 70-99 [facility] Comment on above: Order Comment: 516-1 Performed By: #### L 500.4050, L501.2300, L100.0500 ####[facility] [address] [place], [address] Potassium [Moles/Vol] 3.6 mmol/L Normal 3.3-5.1 [facility] Comment on above: Order Comment: 516-1 Performed By: #### L 500.4050, L501.2300, L100.0500 ####[facility] [address] [place], [address] Sodium [Moles/Vol] 140 mmol/L Normal 133-145 [facility] Comment on above: Order Comment: 516-1 Performed By: #### L 500.4050, L501.2300, L100.0500 ####[facility] [address] [place], [address] T PROT 6.5 g/dL Normal 5.9-8.4 [facility] Comment on above: Order Comment: 516-1 Performed By: #### L 500.4050, L501.2300, L100.0500 ####[facility] [address] [place], [address] Urea nitrogen [Mass/Vol] 56 mg/dL High 4-19 [facility] Comment on above: Order Comment: 516-1 Performed By: #### L 500.4050, L501.2300, L100.0500 ####[facility] [address] [place], [address] Erythrocyte distribution wid th ratioOrdered By: Bonnie Simmons on 05-04-2025 Erythrocyte distribution width (RBC) [Ratio] 12.6 % 11.6-14.6 [facility] Erythrocyte distribution wid th standard deviationOrdered By: Bonnie Simmons on 05-04-2025 Erythrocyte distribution width (RBC) [Ratio] 43.2 fl 35.1-43.9 [facility] Glomerular filtration rate ( GFR) estimation/1.73 sq m using serum, plasma, or whole bOrdered By: Bonnie Simmons on 05-04-2025 GFR/1.73 sq M.predicted among non-blacks MDRD (S/P/Bld) [Vol rate/Area] 9 mL/min/{1.73_m2} Low >60 [facility] Comment on above: mL/min/1.73m2 CKD-EP I Creatinine Equation (2020) Hematocrit Auto (Bld) [Volum e fraction]Ordered By: Bonnie Simmons on 05-04-2025 Hematocrit (Bld) [Volume fraction] 25.9 % Low 37-47 [facility] Hemoglobin measurementOrdere d By: Bonnie Simmons on 05-04-2025 Hemoglobin (Bld) [Mass/Vol] 8.5 g/dL Low 12.0-15.0 [facility] Laboratory - Chemistry and C hemistry - challengeOrdered By: Bonnie Simmons on 05-04-2025 AST [Catalytic activity/Vol] 16 U/L <32 [facility] MCV (mean corpuscular volume ) determinationOrdered By: Bonnie Simmons on 05-04-2025 MCV (RBC) [Entitic vol] 95.9 fL 81-99 [facility] Mean corpuscular hemoglobin (MCH) determinationOrdered By: Bonnie Simmons on 05-04-2025 MCH (RBC) [Entitic mass] 31.5 pg 27.0-32.0 [facility] Mean corpuscular hemoglobin concentration (MCHC) determinationOrdered By: Bonnie Simmons on 05-04-2025 MCHC (RBC) [Mass/Vol] 32.8 g/dL 32-36 [facility] Mean platelet volume determi nationOrdered By: Bonnie Simmons on 05-04-2025 Platelet mean volume (Bld) [Entitic vol] 10.8 fL 6.2-12.0 [facility] Phosphoruson 05-04-2025 Phosphate [Mass/Vol] 4.8 mg/dL High 2.7-4.5 [facility] Comment on above: Order Comment: 516-1 Performed By: #### L 500.4050, L501.2300, L100.0500 ####[facility] [address] [place], [address] Platelet countOrdered By: Nick Simmons on 05-04-2025 Platelets (Bld) [#/Vol] 301 10*3/uL 150-450 [facility] Potassium measurement (mass/ volume)Ordered By: Bonnie Simmons on 05-04-2025 Potassium (Unsp spec) [Mass/Vol] 3.6 mmol/L 3.3-5.1 [facility] RBC Auto (Bld) [#/Vol]Ordere d By: Bonnie Simmons on 05-04-2025 RBC (Bld) [#/Vol] 2.70 10*6/uL Low 4.2-5.4 [facility] Serum creatinine measurement (mass/volume)Ordered By: Bonnie Simmons on 05-04-2025 Creatinine [Mass/Vol] 4.78 mg/dL High 0.70-1.20 [facility] Serum globulin measurementOr dered By: Bonnie Simmons on 05-04-2025 Globulin (S) [Mass/Vol] 2.3 g/dL 2.2-4.2 [facility] Serum glucose measurement (m ass/volume)Ordered By: Bonnie Simmons on 05-04-2025 Glucose [Mass/Vol] 131 mg/dL High 70-99 [facility] Serum or plasma alanine mckeon otransferase (ALT) measurementOrdered By: Bonnie Simmons on 05-04-2025 ALT [Catalytic activity/Vol] 14 U/L <35 [facility] Serum or plasma albumin yamil urement (mass/volume)Ordered By: Bonnie Simmons on 05-04-2025 Albumin [Mass/Vol] 4.2 g/dL 3.4-4.8 [facility] Serum or plasma albumin/glob ulin mass ratioOrdered By: Bonnie Simmons on 05-04-2025 Albumin/Globulin [Mass ratio] 1.9 {ratio} 0.9-2.4 [facility] Serum or plasma alkaline anthony sphatase measurementOrdered By: Bonnie Simmons on 05-04-2025 ALP [Catalytic activity/Vol] 78 U/L 35-104 [facility] Serum or plasma calcium yamil urement (mass/volume)Ordered By: Bonnie Simmons on 05-04-2025 Calcium [Mass/Vol] 9.1 mg/dL 7.6-11.0 [facility] Serum or plasma urea nitroge n measurement (mass/volume)Ordered By: Bonnie Simmons on 05-04-2025 Urea nitrogen [Mass/Vol] 56 mg/dL High 4-19 [facility] Sodium levelOrdered By: Gray Simmons on 05-04-2025 Sodium [Moles/Vol] 140 mmol/L 133-145 [facility] Total proteinOrdered By: Aman Simmons on 05-04-2025 Protein [Mass/Vol] 6.5 g/dL 5.9-8.4 [facility] White blood cell (WBC) count Ordered By: Bonnie Simmons on 05-04-2025 WBC (Bld) [#/Vol] 8.4 10*3/uL 4.4-11.0 [facility] CNPCatarina 04-29-2025 MARY Telephone (HEMAWS) ZAHIDA BELTRE ([id number]) 1955 F Date Time Provider Department 04/29/25 SULTANA GARCIA During your visit today, we recorded the following information about you: Sultana Garcia 04/29/2025 2:45 PM Signed Labs reviewed. Hgb has improved at this time to 10.3. No iron deficiency. Kidney function appears to be worsening. At this time she is not a candidate for GURPREET or IV iron. Recommend continuing to follow up with nephrology. Plan to recheck CBC in 3 months for stability. (Orders entered) Pt currently resides in [facility]. I attempted to reach spouse number rang busy. No answer on daughter Jeanette's phone (she was present for appt) Case and labs reviewed with Dr Vivas. Sultana Garcia APRN.Jazzy Munguia LPN 04/29/2025 2:52 PM Addendum I called and spoke to Hope, patient's nurse at [facility]. Patient is scheduled to see nephrology in early June. She also has a CBC drawn every 28 days; Hope will fax the results in July (3 month CBC). Jazzy Arciniega LPN Allergies As of Date: 04/29/2025 Noted Allergy Reaction AMLODIPINE 09/13/2016 14 - Other: See Comments ASPARTAME 04/20/2025 14 - Other: See Comments Comments: Extremely thirsty Date Reviewed: 04/20/2025 Reviewed by: Sultana Garcia - Fully Assessed Primary Visit Diagnosis: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, not on chronic dialysis (HCC) [N18.5, D63.1] Order(s[facility] Order #: [id number] FUTURE Prescriptions as of 04/29/2025 - cloNIDine HCl (CATAPRES) 0.3 mg tablet Take 0.3 mg by mouth three times a day. - cranberry fruit (CRANBERRY) 450 mg tab Take 450 mg by mouth once daily. - famotidine (PEPCID) 20 mg tablet Take 20 mg by mouth daily at bedtime. - sodium phosphate,mono-dibas ic (FLEET ENEMA GA) 1 suppository by RECTAL route as needed. - folic acid/vit B complex and C (KAVIN-MARCELLA PO) Take 1 tablet by mouth once daily. - sertraline (ZOLOFT) 50 mg tablet Take 50 mg by mouth once daily. - levETIRAcetam (KEPPRA) 500 mg tablet Take 1 tablet by mouth two times a day for 7 doses. - sodium bicarbonate 650 mg tablet Take 1 tablet by mouth three times a day. - acetaminophen (TYLENOL) 325 mg tablet Take 650 mg by mouth every 4 hours as needed for fever (specify temp.) or pain. - mag hydrox/aluminum hyd/simeth (ANTACID SUSPENSION ORAL) Take 30 mL by mouth every 4 hours as needed (GI distress). - atorvastatin (LIPITOR) 40 mg tablet Take 40 mg by mouth daily at bedtime. - bisacodyl (DULCOLAX) 10 mg supp 10 mg by RECTAL route once daily as needed for constipation. - busPIRone (BUSPAR) 5 mg tablet Take 2.5 mg by mouth two times a day. - fenofibrate (LOFIBRA) 67 mg capsule Take 67 mg by mouth daily with breakfast. - guaiFENesin 200 mg/5 mL liqd Take 10 mL by mouth every 4 hours as needed (cough, congestion). - magnesium oxide 400 mg magnesium tab Take 0.5 tablets by mouth two times a day. - melatonin 3 mg tablet Take 3 mg by mouth daily at bedtime. - magnesium hydroxide (MILK OF MAGNESIA) 400 mg/5 mL suspension Take 30 mL by mouth once daily as needed for constipation. - polyethylene glycol 3350 (MIRALAX) 17 gram packet Take 17 g by mouth once daily as needed for constipation. Dissolve dose in 4 - 8 ounces of liquid and take as directed. - NIFEdipine ER (PROCARDIA XL) 90 mg 24 hr tablet Take 90 mg by mouth daily at bedtime. - nitroglycerin sublingual (NITROQUICK) 0.4 mg SL tablet Dissolve 0.4 mg under the tongue every 5 minutes as needed for chest pain. - pantoprazole DR (PROTONIX) 40 mg tablet Take 40 mg by mouth daily at 6 am. - B Complex-Vitamin C-Folic Acid (KAVIN-MARCELLA) 0.8 mg tab Take 1 tablet by mouth once daily. - sertraline 150 mg capsule Take 150 mg by mouth daily at bedtime. - metoprolol tartrate, short acting, (LOPRESSOR) 100 mg tablet Take 100 mg by mouth two times a day. - cloNIDine HCl (CATAPRES) 0.2 mg tablet Take 0.2 mg by mouth three times a day. - lisinopril (ZESTRIL) 40 mg tablet Take 40 mg by mouth two times a day. - ergocalciferol 50,000 unit capsule (VITAMIN D2, DRISDOL) Take 1 capsule by mouth one time a week. - multivitamin (TAB A MARCELLA ORAL) Take 1 tablet by mouth once daily. Problem List As Of Date 04/29/2025 Noted Resolved Left knee pain [M25.562] 09/13/2016 Adrenal nodule (HCC) [E27.9] 02/19/2024 Duodenal ulcer with hemorrhage [K26.4] 02/19/2024 Pre-op examination [Z01.818] 03/23/2024 Coronary artery disease involving peoria enrique*03/23/2024 HTN (hypertension) [I10] 03/23/2024 Mixed hyperlipidemia [E78.2] 03/23/2024 Subdural hemorrhage (HCC) [I62.00] 06/18/2024 SDH (subdural hematoma) (HCC) [S06.5XAA] 06/18/2024 Fall [W19.XXXA] 06/19/2024 Age-related osteoporosis without current pathol*04/13/2024 Dependence on renal dialysis (HCC) [Z99.2] 04/07/2024 (more content not included)... Normal [facility] CNPNon 04-22-2025 [facility] Telephone (HEMAWS) ZAHIDA BELTRE ([id number]) 1955 F Date Time Provider Department 04/22/25 SULTANA GARCIA During your visit today, we recorded the following information about you: Yazmin Medel 04/22/2025 10:25 AM Signed Please fax 04/20 lab results to [facility] at [phone] Radha Nichols LPN 04/22/2025 11:06 AM Signed Labs faxed as directed. Radha Nichols LPN Allergies As of Date: 04/22/2025 Noted Allergy Reaction AMLODIPINE 09/13/2016 14 - Other: See Comments ASPARTAME 04/20/2025 14 - Other: See Comments Comments: Extremely thirsty Date Reviewed: 04/20/2025 Reviewed by: Sultana Garcia - Fully Assessed Reason for Visit: Electronic Communication [530] Prescriptions as of 04/22/2025 - cloNIDine HCl (CATAPRES) 0.3 mg tablet Take 0.3 mg by mouth three times a day. - cranberry fruit (CRANBERRY) 450 mg tab Take 450 mg by mouth once daily. - famotidine (PEPCID) 20 mg tablet Take 20 mg by mouth daily at bedtime. - sodium phosphate,mono-dibas ic (FLEET ENEMA GA) 1 suppository by RECTAL route as needed. - folic acid/vit B complex and C (KAVNI-MARCELLA PO) Take 1 tablet by mouth once daily. - sertraline (ZOLOFT) 50 mg tablet Take 50 mg by mouth once daily. - levETIRAcetam (KEPPRA) 500 mg tablet Take 1 tablet by mouth two times a day for 7 doses. - sodium bicarbonate 650 mg tablet Take 1 tablet by mouth three times a day. - acetaminophen (TYLENOL) 325 mg tablet Take 650 mg by mouth every 4 hours as needed for fever (specify temp.) or pain. - mag hydrox/aluminum hyd/simeth (ANTACID SUSPENSION ORAL) Take 30 mL by mouth every 4 hours as needed (GI distress). - atorvastatin (LIPITOR) 40 mg tablet Take 40 mg by mouth daily at bedtime. - bisacodyl (DULCOLAX) 10 mg supp 10 mg by RECTAL route once daily as needed for constipation. - busPIRone (BUSPAR) 5 mg tablet Take 2.5 mg by mouth two times a day. - fenofibrate (LOFIBRA) 67 mg capsule Take 67 mg by mouth daily with breakfast. - guaiFENesin 200 mg/5 mL liqd Take 10 mL by mouth every 4 hours as needed (cough, congestion). - magnesium oxide 400 mg magnesium tab Take 0.5 tablets by mouth two times a day. - melatonin 3 mg tablet Take 3 mg by mouth daily at bedtime. - magnesium hydroxide (MILK OF MAGNESIA) 400 mg/5 mL suspension Take 30 mL by mouth once daily as needed for constipation. - polyethylene glycol 3350 (MIRALAX) 17 gram packet Take 17 g by mouth once daily as needed for constipation. Dissolve dose in 4 - 8 ounces of liquid and take as directed. - NIFEdipine ER (PROCARDIA XL) 90 mg 24 hr tablet Take 90 mg by mouth daily at bedtime. - nitroglycerin sublingual (NITROQUICK) 0.4 mg SL tablet Dissolve 0.4 mg under the tongue every 5 minutes as needed for chest pain. - pantoprazole DR (PROTONIX) 40 mg tablet Take 40 mg by mouth daily at 6 am. - B Complex-Vitamin C-Folic Acid (KAVIN-MARCELLA) 0.8 mg tab Take 1 tablet by mouth once daily. - sertraline 150 mg capsule Take 150 mg by mouth daily at bedtime. - metoprolol tartrate, short acting, (LOPRESSOR) 100 mg tablet Take 100 mg by mouth two times a day. - cloNIDine HCl (CATAPRES) 0.2 mg tablet Take 0.2 mg by mouth three times a day. - lisinopril (ZESTRIL) 40 mg tablet Take 40 mg by mouth two times a day. - ergocalciferol 50,000 unit capsule (VITAMIN D2, DRISDOL) Take 1 capsule by mouth one time a week. - multivitamin (TAB A MARCELLA ORAL) Take 1 tablet by mouth once daily. Problem List As Of Date 04/22/2025 Noted Resolved Left knee pain [M25.562] 09/13/2016 Adrenal nodule (HCC) [E27.9] 02/19/2024 Duodenal ulcer with hemorrhage [K26.4] 02/19/2024 Pre-op examination [Z01.818] 03/23/2024 Coronary artery disease involving peoria enrique*03/23/2024 HTN (hypertension) [I10] 03/23/2024 Mixed hyperlipidemia [E78.2] 03/23/2024 Subdural hemorrhage (HCC) [I62.00] 06/18/2024 SDH (subdural hematoma) (HCC) [S06.5XAA] 06/18/2024 Fall [W19.XXXA] 06/19/2024 Age-related osteoporosis without current pathol*04/13/2024 Dependence on renal dialysis (HCC) [Z99.2] 04/07/2024 06/24/2024 Chronic anemia [D64.9] 06/19/2024 Hyponatremia [E87.1] 06/19/2024 06/24/2024 Encounter Status:Closed by RADHA NICHOLS on 04/22/[address] [facility] COPPER BLOODOrdered By: Giovanni Hanson on 04-21-2025 Copper [Mass/Vol] 107 ug/dL 80 - 155 ug/dL [facility] Comment on above: This test was devomario ped, and its performance characteristics determined by the [facility] Department of Pathology and Laboratory Medicine. It has not been cleared or approved by the FDA. The [facility] Department of Pathology and Laboratory Medicine is regulated under CLIA as qualified to perform high-complexity testing. This test is used for clinical purposes. It should not be regarded as investigational or for research. ERYTHROPOIETIN/EPOon 025 Erythropoietin (EPO) Qn 13.2 [IU]/L [facility] Erythropoietin (EPO) Qnon Interpretation and review of laboratory results Normal [facility] Test analyzed by the Pedrito DxI method. [facility] FERRITINon 04-21-2025 Ferritin [Mass/Vol] 987.0 ng/mL High 14.7 - 2 05.1 ng/mL [facility] FOLATE, SERUMon 04-21-2025 Folate [Mass/Vol] ng/mL 4.7 - PINF ng/mL [facility] Comment on above: A result of > 20 ng/ mL is not necessarily indicative of a pathologic or treatable condition: it reflects a limitation of the test methodology. Assay reference range: 4.8 to 24.2 ng/mL. Suitable for detection of folate deficiency. Reference: Folate III (Folate III) [package insert V 1.0 Palestinian]. [employer], [place], [place]: July 2015. Ferritin [Mass/Vol]on 2024 Interpretation and review of laboratory results Abnormal [facility] Iron and Iron binding capaci ty panelon 04-21-2025 Interpretation and review of laboratory results Normal [facility] Iron [Mass/Vol] 104 ug/dL 41 - 186 ug/dL [facility] Iron binding capacity [Mass/Vol] 342 ug/dL 232 - 386 ug/dL [facility] Iron/TIBC [Molar ratio] 30.4 % 15.0 - 57.0 % [facility] No Panel InformationOrdered By: Paris Hanson on 04-21-2025 Interpretation and review of laboratory results Normal [facility] No Panel Informationon 04-21 Interpretation and review of laboratory results Normal [facility] VITAMIN B12on 04-21-2025 Cobalamin (Vitamin B12) [Mass/Vol] 840 pg/mL 232 - 1245 pg/mL [facility] ZINC BLDon 04-21-2025 Zinc [Mass/Vol] 84 ug/dL 60 - 120 ug/dL [facility] Comment on above: This test was hu ped, and its performance characteristics determined by the [facility] Department of Pathology and Laboratory Medicine. It has not been cleared or approved by the FDA. The [facility] Department of Pathology and Laboratory Medicine is regulated under CLIA as qualified to perform high-complexity testing. This test is used for clinical purposes. It should not be regarded as investigational or for research. CBC panel Auto (Bld)on 04-20 Erythrocyte distribution width (RBC) [Ratio] 12.6 % 11.5 - 15.0 % [facility] Hematocrit (Bld) [Volume fraction] 31.1 % Low 36.0 - 46.0 % [facility] Hemoglobin (Bld) [Mass/Vol] 10.3 g/dL Low 11.5 - 15.5 g/dL [facility] Interpretation and review of laboratory results Abnormal [facility] MCH (RBC) [Entitic mass] 31.7 pg 26. 0 - 34.0 pg [facility] MCHC (RBC) [Mass/Vol] 33.1 g/dL 30.5 - 36.0 g/dL [facility] MCV (RBC) [Entitic vol] 95.7 fL 80.0 - 100.0 fL [facility] Nucleated RBC (Bld) [#/Vol] NINF [facility] Platelet mean volume (Bld) [Entitic vol] 9.9 fL 9.0 - 12.7 fL [facility] Platelets (Bld) [#/Vol] 368 10*3/uL [facility] RBC (Bld) [#/Vol] 3.25 10*6/uL Low 3.90 - 5.2 0 m/uL [facility] WBC (Bld) [#/Vol] 12.16 10*3/uL [facility] Erythrocyte distribution width (RBC) [Ratio] 12.6 % Normal 11.5-15.[address] [facility] Comment on above: Order Comment: Speci men Type: BLOOD SPECIMEN Ordering Facility: [facility] Address: [address] [place], [place] [address] Performed By: #### 5 8410-2 #### [facility] [id number] [address] [place] [address] [place] Hematocrit (Bld) [Volume fraction] 31.1 % Low 36.0-46.[address] [facility] Comment on above: Order Comment: Speci men Type: BLOOD SPECIMEN Ordering Facility: [facility] Address: [address] [place] [id number] Performed By: #### 5 8410-2 #### [facility] [id number] [address] [place] [address] [place] Hemoglobin (Bld) [Mass/Vol] 10.3 g/dL Low 11.5-15.[address] [facility] Comment on above: Order Comment: Speci men Type: BLOOD SPECIMEN Ordering Facility: [facility] Address: [address] [place] [address] Performed By: #### 5 8410-2 #### [facility] CLIA [id number] [address] [place] [address] STATES [facility] MCH (RBC) [Entitic mass] 31.7 pg Normal 26.0-34.[address] [facility] Comment on above: Order Comment: Speci men Type: BLOOD SPECIMEN Ordering Facility: [facility] Address: [address] [place] [address] Performed By: #### 5 8410-2 #### [facility] CLIA [id number] [address] [place] [address] [place] MCHC (RBC) [Mass/Vol] 33.1 g/dL Normal 30.5-36.0 [facility] Comment on above: Order Comment: Speci men Type: BLOOD SPECIMEN Ordering Facility: [facility] Address: [address] [place] [address] Performed By: #### 5 8410-2 #### [facility] [id number] [address] [place] [address] [place] MCV (RBC) [Entitic vol] 95.7 fL Normal 80.0-100.0 [facility] Comment on above: Order Comment: Speci men Type: BLOOD SPECIMEN Ordering Facility: [facility] Address: [address] [place] [address] Performed By: #### 5 8410-2 #### [facility] CLIA [id number] [address] [place] [address] [place] Nucleated RBC (Bld) [#/Vol] 10*3/uL Normal <0.[address] [facility] Comment on above: Order Comment: Speci men Type: BLOOD SPECIMEN Ordering Facility: [facility] Address: [address] [place] [address] Performed By: #### 5 8410-2 #### [facility] CLIA [id number] [address] [place] [address] [place] Platelet mean volume (Bld) [Entitic vol] 9.9 fL Normal 9.0-12.[address] [facility] Comment on above: Order Comment: Speci men Type: BLOOD SPECIMEN Ordering Facility: [facility] Address: [address] [place] [address] Performed By: #### 5 8410-2 #### [facility] CLIA [id number] [address] [place] [address] [place] Platelets (Bld) [#/Vol] 368 10*3/uL Normal 150-[address] [facility] Comment on above: Order Comment: Speci men Type: BLOOD SPECIMEN Ordering Facility: [facility] Address: [address] [place] [address] Performed By: #### 5 8410-2 #### [facility] CLIA [id number] [address] [place] [address] [place] RBC (Bld) [#/Vol] 3.25 10*6/uL Low 3.90-5.20 [facility] Comment on above: Order Comment: Speci men Type: BLOOD SPECIMEN Ordering Facility: [facility] Address: [address] [place] [address] Performed By: #### 5 8410-2 #### [facility] CLIA [id number] [address] [place] [address] [place] WBC (Bld) [#/Vol] 12.16 10*3/uL High 3.70-11.00 [facility] Comment on above: Order Comment: Speci men Type: BLOOD SPECIMEN Ordering Facility: [facility] Address: [address] [place] [address] Performed By: #### 5 8410-2 #### [facility] CLIA [id number] [address] [place] [address] [place] CNOVSPon 04-20-2025 CNOVSP Visit (SP) Office (LAICE) ZAHIDA BELTRE ([id number]) 1955 F Date Time Provider Department 04/20/25 1:00 PM SULTANA GARCIA During your visit today, we recorded the following information about you: Temperature Pulse Blood pressure Weight 97.9 degrees 67/minute 123/78 71.7 kg Height 1.562 m Sultana Garcia 04/23/2025 3:55 PM Signed Progress Note Zahida Beltre 1955 Encounter date: 04/20/2025 HPI: Zahida Beltre is a 69 year old female with extensive PMH of Kidney failure hx of dialysis for about 6 - 8 months, CAD, subdural hematoma, HTN, Chronic anemia. 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 She is a poor historian, rather tangential. Currently resides in a group home facility since last year. Per chart review she has had significant behavioral changes which appear to have started 12/2024 at which point she changed her name and appearance. Per nephrology notes baseline creatinine is around 3.7. Denies fevers, chills or NS. Reports chronic infections over her lifetime. Recent UTI dx and treated in SNF around April 01. No current abx use. Ice cravings for at least the last year. No appetite. Food provided by facility. She states she was not eating much when she first got there because they were pureeing meals. Prior to admission she was following primarily vegetarian diet. Denies bleeding. No dark or tarry stools. No bony aches or pains. Chronic headaches. Hx of subdural hematoma, following with neuro. No PO iron currently. No known issues. No NSAIDs. No known blood transfusions. Hx of IV iron. Hx of dialysis. No known hx of bleeding disorders. Brother heart attack. Mother had breast cancer, paternal grandmother breast cancer. No personal hx of cancer that she is aware of. PAST MEDICAL HISTORY Diagnosis Date Atrial fibrillation (HCC) Cerebral palsy (HCC) Chronic kidney disease, stage V (HCC) Depression GERD (gastroesophageal reflux disease) HTN (hypertension) Hyperlipemia Muscle weakness (generalized) Osteoarthritis Osteoporosis Traumatic subarachnoid hemorrhage without loss of consciousness (HCC) PAST SURGICAL HISTORY Procedure Laterality Date EXPL LAP W W/WO BX LIGATE FALLOPIAN TUBE REMOVAL GALLBLADDER Current Outpatient Medications Medication Sig Dispense Refill cloNIDine HCl (CATAPRES) 0.3 mg tablet Take 0.3 mg by mouth three times a day. cranberry fruit (CRANBERRY) 450 mg tab Take 450 mg by mouth once daily. famotidine (PEPCID) 20 mg tablet Take 20 mg by mouth daily at bedtime. sodium phosphate,mono-dibas ic (FLEET ENEMA GA) 1 suppository by RECTAL route as needed. folic acid/vit B complex and C (KAVIN-MARCELLA PO) Take 1 tablet by mouth once daily. sertraline (ZOLOFT) 50 mg tablet Take 50 mg by mouth once daily. levETIRAcetam (KEPPRA) 500 mg tablet Take 1 tablet by mouth two times a day for 7 doses. 7 tablet 0 sodium bicarbonate 650 mg tablet Take 1 tablet by mouth three times a day. (Patient taking differently: Take 650 mg by mouth before meals and at bedtime.) acetaminophen (TYLENOL) 325 mg tablet Take 650 mg by mouth every 4 hours as needed for fever (specify temp.) or pain. mag hydrox/aluminum hyd/simeth (ANTACID SUSPENSION ORAL) Take 30 mL by mouth every 4 hours as needed (GI distress). atorvastatin (LIPITOR) 40 mg tablet Take 40 mg by mouth daily at bedtime. bisacodyl (DULCOLAX) 10 mg supp 10 mg by RECTAL route once daily as needed for constipation. fenofibrate (LOFIBRA) 67 mg capsule Take 67 mg by mouth daily with breakfast. guaiFENesin 200 mg/5 mL liqd Take 10 mL by mouth every 4 hours as needed (cough, congestion). magnesium oxide 400 mg magnesium tab Take 0.5 tablets by mouth two times a day. (Patient taking differently: Take 1 tablet by mouth two times a day.) melatonin 3 mg tablet Take 3 mg by mouth daily at bedtime. magnesium hydroxide (MILK OF MAGNESIA) 400 mg/5 mL suspension Take 30 mL by mouth once daily as needed for constipation. NIFEdipine ER (PROCARDIA XL) 90 mg 24 hr tablet Take 90 mg by mouth daily at bedtime. nitroglycerin sublingual (NITROQUICK) 0.4 mg SL tablet Dissolve 0.4 mg under the tongue every 5 minutes as needed for chest pain. metoprolol tartrate, short acting, (LOPRESSOR) 100 mg tablet Take 100 mg by mouth two times a day. ergocalciferol 50,000 unit capsule (VITAMIN D2, DRISDOL) Take 1 capsule by mouth one time a week. busPIRone (BUSPAR) 5 mg tablet Take 2.5 mg by mouth two times a day. (Patient not taking: Reported on 04/20/2025) polyethylene glycol 3350 (MIRALAX) 17 gram packet Take 17 g by mouth once daily as needed for constipation. Dissolve dose in 4 - 8 ounces of liquid and take as directed. (Patient not taking: Reported on 04/20/2025) pantoprazole DR (PROTONIX) 40 mg tablet Take 40 (more content not included)... Normal [facility] COPPER BLOODon 04-20-2025 Copper [Mass/Vol] 107 ug/dL Normal 80-155 [facility] Comment on above: Order Comment: Speci men Type: BLOOD SPECIMEN Ordering Facility: [facility] Address: [address] [place] [address] Result Comment: This test was developed, and its performance characteristics determined by the [facility] Department of Pathology and Laboratory Medicine. It has not been cleared or approved by the FDA. The [facility] Department of Pathology and Laboratory Medicine is regulated under CLIA as qualified to perform high-complexity testing. This test is used for clinical purposes. It should not be regarded as investigational or for research. Performed By: #### 5 763-8, COPPER #### [facility] CLIA [id number] [address] [place], [place] [address] [place] [address] [place] Comprehensive metabolic 2000 panelOrdered By: Farnaz Mata on 04-20-2025 Albumin [Mass/Vol] 4.8 g/dL 3.9 - 4.9 g/dL [facility] ALP [Catalytic activity/Vol] 95 U/L 34 - 123 U/L [facility] ALT [Catalytic activity/Vol] 12 U/L 7 - 38 U/L [facility] Anion gap [Moles/Vol] 17 mmol/L High 8 - 15 mmol/L [facility] AST [Catalytic activity/Vol] 13 U/L 13 - 35 U/L [facility] Bilirubin [Mass/Vol] 0.2 mg/dL 0.2 - 1 .3 mg/dL [facility] Calcium [Mass/Vol] 9.9 mg/dL 8.5 - 10. 2 mg/dL [facility] Chloride [Moles/Vol] 100 mmol/L 98 - 10 7 mmol/L [facility] CO2 [Moles/Vol] 21 mmol/L Low 22 - 30 mmol/L [facility] Creatinine [Mass/Vol] 4.68 mg/dL High 0.58 - 0.96 mg/dL [facility] GFR/1.73 sq M.predicted among non-blacks MDRD (S/P/Bld) [Vol rate/Area] 9 mL/min/{1.73_m2} Low - PINF [facility] Comment on above: Estimated Glomerular Filtration Rate (eGFR) is calculated using the 2020 CKD-EPI creatinine equation. This equation utilizes serum creatinine, sex, and age as parameters. The creatinine assay has traceable calibration to isotope dilution-mass spectrometry. Refer to KDIGO guidelines for clinical interpretation. In patients with unstable renal function, e.g. those with acute kidney injury, the eGFR may not accurately reflect actual GFR. Glucose [Mass/Vol] 125 mg/dL High 74 - 99 mg/dL [facility] Comment on above: The [place] Diabete s Association (ADA) provides guidance for cutoff values for fasting glucose and random glucose. The ADA defines fasting as no caloric intake for at least 8 hours. Fasting plasma glucose results between 100 to 125 mg/dL indicate increased risk for diabetes (prediabetes). Fasting plasma glucose results greater than or equal to 126 mg/dL meet the criteria for diagnosis of diabetes. In the absence of unequivocal hyperglycemia, results should be confirmed by repeat testing. In a patient with classic symptoms of hyperglycemia or hyperglycemic crisis, random plasma glucose results greater than or equal to 200 mg/dL meet the criteria for diagnosis of diabetes. Reference: Standards of Medical Care in Diabetes 2016, [place] [employer]. Diabetes Care. 2016.39(Suppl 1). Interpretation and review of laboratory results Abnormal [facility] Potassium [Moles/Vol] 4.0 mmol/L 3.7 - 5.1 mmol/L [facility] Protein [Mass/Vol] 7.5 g/dL 6.3 - 8.0 g/dL [facility] Sodium [Moles/Vol] 138 mmol/L 136 - 144 mmol/L [facility] Urea nitrogen [Mass/Vol] 58 mg/dL High 7 - 21 mg/d L [facility] Comprehensive metabolic 2000 panelon 04-20-2025 Albumin [Mass/Vol] 4.8 g/dL Normal 3.9-4.9 [facility] Comment on above: Order Comment: Speci men Type: BLOOD SPECIMEN Ordering Facility: [facility] Address: [address] [place] [address] Performed By: #### 2 4323-8 #### [facility] [id number] [address] [place] [address] [place] ALP [Catalytic activity/Vol] 95 U/L Normal 34-[address] [facility] Comment on above: Order Comment: Speci men Type: BLOOD SPECIMEN Ordering Facility: [facility] Address: [address] [place] [address] Performed By: #### 2 4323-8 #### [facility] CLIA [id number] [address] [place] [address] [place] ALT [Catalytic activity/Vol] 12 U/L Normal 7-[address] [facility] Comment on above: Order Comment: Speci men Type: BLOOD SPECIMEN Ordering Facility: [facility] Address: [address] [place] [address] Performed By: #### 2 4323-8 #### [facility] [id number] [address] [place] [address] [place] Anion gap [Moles/Vol] 17 mmol/L High 8-15 [facility] Comment on above: Order Comment: Speci men Type: BLOOD SPECIMEN Ordering Facility: [facility] Address: [address] [place], [place] [address] Performed By: #### 2 4323-8 #### [facility] CLIA [id number] [address] [place] [address] [place] AST [Catalytic activity/Vol] 13 U/L Normal 13-[address] [facility] Comment on above: Order Comment: Speci men Type: BLOOD SPECIMEN Ordering Facility: [facility] Address: [address] [place] [address] Performed By: #### 2 4323-8 #### [facility] CLIA [id number] [address] [place] [address] [place] Bilirubin [Mass/Vol] 0.2 mg/dL Normal 0.2-1.3 [facility] Comment on above: Order Comment: Speci men Type: BLOOD SPECIMEN Ordering Facility: [facility] Address: [address] [place] [address] Performed By: #### 2 4323-8 #### [facility] CLIA [id number] [address] [place] [address] [place] Calcium [Mass/Vol] 9.9 mg/dL Normal 8.5-10.2 [facility] Comment on above: Order Comment: Speci men Type: BLOOD SPECIMEN Ordering Facility: [facility] Address: [address] [place] [address] Performed By: #### 2 4323-8 #### [facility] CLIA [id number] [address] [place] [address] [place] Chloride [Moles/Vol] 100 mmol/L Normal 98-107 [facility] Comment on above: Order Comment: Speci men Type: BLOOD SPECIMEN Ordering Facility: [facility] Address: [address] [place] [address] Performed By: #### 2 4323-8 #### [facility] CLIA [id number] [address] [place] [address] [place] CO2 [Moles/Vol] 21 mmol/L Low 22-[address] [facility] Comment on above: Order Comment: Speci men Type: BLOOD SPECIMEN Ordering Facility: [facility] Address: [address] [place] [address] Performed By: #### 2 4323-8 #### [facility] CLIA [id number] [address] [place] [address] [place] Creatinine [Mass/Vol] 4.68 mg/dL High 0.58-0.96 [facility] Comment on above: Order Comment: Speci men Type: BLOOD SPECIMEN Ordering Facility: [facility] Address: [address] [place] [address] Performed By: #### 2 4323-8 #### [facility] [id number] [address] [place] [address] [place] eGFRcr SerPlBld CKD-EPI 2020 9 mL/min/1.73m??? Low >=[address] [facility] Comment on above: Order Comment: Speci men Type: BLOOD SPECIMEN Ordering Facility: [facility] Address: [address] [place] [address] Result Comment: Saige mated Glomerular Filtration Rate (eGFR) is calculated using the 2020 CKD-EPI creatinine equation. This equation utilizes serum creatinine, sex, and age as parameters. The creatinine assay has traceable calibration to isotope dilution-mass spectrometry. Refer to KDIGO guidelines for clinical interpretation. In patients with unstable renal function, e.g. those with acute kidney injury, the eGFR may not accurately reflect actual GFR. Performed By: #### 2 4323-8 #### [facility] CLIA [id number] [address] [place] [address] [place] Glucose [Mass/Vol] 125 mg/dL High 74-99 [facility] Comment on above: Order Comment: Speci men Type: BLOOD SPECIMEN Ordering Facility: [facility] Address: [address] [place] [address] Result Comment: The [place] Diabetes Association (ADA) provides guidance for cutoff values for fasting glucose and random glucose. The ADA defines fasting as no caloric intake for at least 8 hours. Fasting plasma glucose results between 100 to 125 mg/dL indicate increased risk for diabetes (prediabetes). Fasting plasma glucose results greater than or equal to 126 mg/dL meet the criteria for diagnosis of diabetes. In the absence of unequivocal hyperglycemia, results should be confirmed by repeat testing. In a patient with classic symptoms of hyperglycemia or hyperglycemic crisis, random plasma glucose results greater than or equal to 200 mg/dL meet the criteria for diagnosis of diabetes. Reference: Standards of Medical Care in Diabetes 2016, [place] [employer]. Diabetes Care. 2016.39(Suppl 1). Performed By: #### 2 4323-8 #### [facility] CLIA [id number] [address] [place] [address] [place] Potassium [Moles/Vol] 4.0 mmol/L Normal 3.7-5.1 [facility] Comment on above: Order Comment: Speci men Type: BLOOD SPECIMEN Ordering Facility: [facility] Address: [address] [place] [address] Performed By: #### 2 4323-8 #### [facility] [id number] [address] [place] [address] [place] Protein [Mass/Vol] 7.5 g/dL Normal 6.3-8.0 [facility] Comment on above: Order Comment: Speci men Type: BLOOD SPECIMEN [facility] [facility] Address: [address] [place] [address] Performed By: #### 2 4323-8 #### [facility] CLIA [id number] [address] [place] [address] [place] Sodium [Moles/Vol] 138 mmol/L Normal 136-144 [facility] Comment on above: Order Comment: Speci men Type: BLOOD SPECIMEN Ordering Facility: [facility] Address: [address] [place] [address] Performed By: #### 2 4323-8 #### [facility] CLIA [id number] [address] [place] [address] [place] Urea nitrogen [Mass/Vol] 58 mg/dL High 7-[address] [facility] Comment on above: Order Comment: Speci men Type: BLOOD SPECIMEN Ordering Facility: [facility] Address: [address] [place] [address] Performed By: #### 2 4323-8 #### [facility] CLIA [id number] [address] [place] [address] [place] EPO SerPl-aCncon 04-20-2025 Erythropoietin (EPO) Qn 13.2 mIU/mL Normal 2.6-18.[address] [facility] Comment on above: Order Comment: Speci men Type: BLOOD SPECIMENOrdering Facility: [facility] Address: [address] [place] [address] Performed By: #### 1 5061-5 ####[facility] LABCLIA [id number] [place] [address] [place] Ferritin SerPl-mCncon 2024 Ferritin [Mass/Vol] 987.0 ng/mL High 14.7-205.1 [facility] Comment on above: Order Comment: Speci men Type: BLOOD SPECIMEN Ordering Facility: [facility] Address: [address] [place] [address] Performed By: #### 5 0190-8, 2284-8, 2276-4, 2132-9 #### [facility] CLIA [id number] [address] [place] [address] [place] Folate SerPl-mCncon 04-20-20 25 Folate [Mass/Vol] ng/mL Normal >4.7 [facility] Comment on above: Order Comment: Speci men Type: BLOOD SPECIMEN Ordering Facility: [facility] Address: [address] [place] [address] Result Comment: A re sult of > 20 ng/mL is not necessarily indicative of a pathologic or treatable condition: it reflects a limitation of the test methodology. Assay reference range: 4.8 to 24.2 ng/mL. Suitable for detection of folate deficiency. Reference: Folate III (Folate III) [package insert V 1.0 Palestinian]. [facility], [place], [place]: July 2015. Performed By: #### 5 0190-8, 2284-8, 2275-4, 9 #### [facility] CLIA [id number] [address] [place] [address] [place] Iron and Iron binding capaci ty panelon 04-20-2025 Iron [Mass/Vol] 104 ug/dL Normal 41-[address] [facility] Comment on above: Order Comment: Speci men Type: BLOOD SPECIMEN Ordering Facility: [facility] Address: [address] [place] [address] Performed By: #### 5 0190-8, 2284-8, 2275-12, 2132-05 #### [facility] CLIA [id number] [address] [place] [address] [place] Iron binding capacity [Mass/Vol] 342 ug/dL Normal 232-[address] [facility] Comment on above: Order Comment: Speci men Type: BLOOD SPECIMEN Ordering Facility: [facility] Address: [address] [place] [address] Performed By: #### 5 0190-8, 2284-8, 2275-12, 2132-05 #### [facility] CLIA [id number] [address] [place] [address] [place] Iron/TIBC [Molar ratio] 30.4 % Normal 15.0-57.[address] [facility] Comment on above: Order Comment: Speci men Type: BLOOD SPECIMEN Ordering Facility: [facility] Address: [address] [place] [address] Performed By: #### 5 0190-8, 2284-8, 2275-12, 2132-05 #### [facility] CLIA [id number] [address] [place] [address] [place] Vit B12 SerPl-ncon 025 Cobalamin (Vitamin B12) [Mass/Vol] 840 pg/mL Normal 232-[address] [facility] Comment on above: Order Comment: Speci men Type: BLOOD SPECIMEN Ordering Facility: [facility] Address: [address] [place] [address] Performed By: #### 5 0190-8, 2284-8, 2276-4, 2132-9 #### [facility] CLIA [id number] [address] [place] [address] [place] Zinc SerPl-ncon 04-20-2025 Zinc [Mass/Vol] 84 ug/dL Normal 60-[address] [facility] Comment on above: Order Comment: Speci men Type: BLOOD SPECIMEN Ordering Facility: [facility] Address: [address] [place] [address] Result Comment: This test was developed, and its performance characteristics determined by the [facility] Department of Pathology and Laboratory Medicine. It has not been cleared or approved by the FDA. The [facility] Department of Pathology and Laboratory Medicine is regulated under CLIA as qualified to perform high-complexity testing. This test is used for clinical purposes. It should not be regarded as investigational or for research. Performed By: #### 5 763-8, COPPER #### [facility] CLIA [id number] [address] [place] [address] [place] KEPPRA (LEVETIRACETAM)on KEPPRA 11.2 ug/mL Normal 10.0-40.0 [facility] Comment on above: Order Comment: 516.1 Result Comment: Perf ormed at: [facility] [address] [id number] Director: Rk Petty MD, Phone: [phone] Performed By: #### L 500.4050, L3310.0000, L501.2300, L100.0500 ####[facility] [address] [place], [address] Anion gap in Serum or Plasma Ordered By: Devendra Beverly on 04-06-2025 Anion gap [Moles/Vol] 16 mmol/L High 5-15 [facility] BUN/creatinine ratioOrdered By: Devendra Beverly on 04-06-2025 Urea nitrogen/Creatinine [Mass ratio] 12.3 mg/mg 10-20 [facility] Bilirubin, totalOrdered By: Devendra Beverly on 04-06-2025 Bilirubin [Mass/Vol] 0.24 mg/dL 0.00-1.30 [facility] CBC-Complete Blood Cnt No Di ffon 04-06-2025 Erythrocyte distribution width (RBC) [Ratio] 12.3 % Normal 11.6-14.6 [facility] Comment on above: Order Comment: 516.1 Performed By: #### L 500.4050, L3310.0000, L501.2300, L100.0500 ####[facility] [address] [place], [address] Hematocrit (Bld) [Volume fraction] 27.1 % Low 37-47 [facility] Comment on above: Order Comment: 516.1 Performed By: #### L 500.4050, L3310.0000, L501.2300, L100.0500 ####[facility] [address] [place], [address] Hemoglobin (Bld) [Mass/Vol] 8.9 g/dL Low 12.0-15.0 [facility] Comment on above: Order Comment: 516.1 Performed By: #### L 500.4050, L3310.0000, L501.2300, L100.0500 ####[facility] [address] [place], [address] MCH (RBC) [Entitic mass] 31.1 pg Normal 27.0-32.0 [facility] Comment on above: Order Comment: 516.1 Performed By: #### L 500.4050, L3310.0000, L501.2300, L100.0500 ####[facility] [address] [place], [address] MCHC (RBC) [Mass/Vol] 32.8 g/dL Normal 32-36 [facility] Comment on above: Order Comment: 516.1 Performed By: #### L 500.4050, L3310.0000, L501.2300, L100.0500 ####[facility] [address] [place], [address] MCV (RBC) [Entitic vol] 94.8 fL Normal 81-99 [facility] Comment on above: Order Comment: 516.1 Performed By: #### L 500.4050, L3310.0000, L501.2300, L100.0500 ####[facility] [address] [place], [address] Platelet mean volume (Bld) [Entitic vol] 10.6 fL Normal 6.2-12.0 [facility] Comment on above: Order Comment: 516.1 Performed By: #### L 500.4050, L3310.0000, L501.2300, L100.0500 ####[facility] [address] [place], [address] Platelets (Bld) [#/Vol] 301 10*3/uL Normal 150-450 [facility] Comment on above: Order Comment: 516.1 Performed By: #### L 500.4050, L3310.0000, L501.2300, L100.0500 ####[facility] [address] [place], [address] RBC (Bld) [#/Vol] 2.86 10*6/uL Low 4.2-5.4 [facility] Comment on above: Order Comment: 516.1 Performed By: #### L 500.4050, L3310.0000, L501.2300, L100.0500 ####[facility] [address] [place], [address] RDW SD 42.8 fl Normal 35.1-43.9 [facility] Comment on above: Order Comment: 516.1 Performed By: #### L 500.4050, L3310.0000, L501.2300, L100.0500 ####[facility] [address] [place], [address] WBC (Bld) [#/Vol] 9.2 10*3/uL Normal 4.4-11.0 [facility] Comment on above: Order Comment: 516.1 Performed By: #### L 500.4050, L3310.0000, L501.2300, L100.0500 ####[facility] [address] [place], [address] Carbon dioxide, total [Moles /volume] in Central venous bloodOrdered By: Devendra Beverly on 04-06-2025 CO2 [Moles/Vol] 21.7 mmol/L 21.0-32.0 [facility] Chloride assayOrdered By: Keaton Beverly on 04-06-2025 Chloride [Moles/Vol] 103 mmol/L 98-108 [facility] Comprehensive Metabolic Prof ilon 04-06-2025 Albumin [Mass/Vol] 4.3 g/dL Normal 3.4-4.8 [facility] Comment on above: Order Comment: 516.1 Performed By: #### L 500.4050, L3310.0000, L501.2300, L100.0500 ####[facility] [address] [place], [address] Albumin/Globulin [Mass ratio] 1.8 {ratio} Normal 0.9-2.4 [facility] Comment on above: Order Comment: 516.1 Performed By: #### L 500.4050, L3310.0000, L501.2300, L100.0500 ####[facility] [address] [place], [address] ALK PHOS 83 U/L Normal 35-104 [facility] Comment on above: Order Comment: 516.1 Performed By: #### L 500.4050, L3310.0000, L501.2300, L100.0500 ####[facility] [address] [place], [address] ALT [Catalytic activity/Vol] 14 U/L Normal <=34 [facility] Comment on above: Order Comment: 516.1 Performed By: #### L 500.4050, L3310.0000, L501.2300, L100.0500 ####[facility] [address] [place], [address] AST [Catalytic activity/Vol] 18 U/L Normal <=31 [facility] Comment on above: Order Comment: 516.1 Performed By: #### L 500.4050, L3310.0000, L501.2300, L100.0500 ####[facility] [address] [place], [address] Bilirubin [Mass/Vol] 0.24 mg/dL Normal 0.00-1.30 [facility] Comment on above: Order Comment: 516.1 Performed By: #### L 500.4050, L3310.0000, L501.2300, L100.0500 ####[facility] [address] [place], [address] BUN/CRE 12.3 RATIO Normal 10-20 [facility] Comment on above: Order Comment: 516.1 Performed By: #### L 500.4050, L3310.0000, L501.2300, L100.0500 ####[facility] [address] [place], [address] Calcium [Mass/Vol] 9.5 mg/dL Normal 7.6-11.0 [facility] Comment on above: Order Comment: 516.1 Performed By: #### L 500.4050, L3310.0000, L501.2300, L100.0500 ####[facility] [address] [place], [address] Chloride [Moles/Vol] 103 mmol/L Normal 98-108 [facility] Comment on above: Order Comment: 516.1 Performed By: #### L 500.4050, L3310.0000, L501.2300, L100.0500 ####[facility] [address] [place], [address] CO2 [Moles/Vol] 21.7 mmol/L Normal 21.0-32.0 [facility] Comment on above: Order Comment: 516.1 Performed By: #### L 500.4050, L3310.0000, L501.2300, L100.0500 ####[facility] [address] [place], [address] Creatinine [Mass/Vol] 4.45 mg/dL High 0.70-1.20 [facility] Comment on above: Order Comment: 516.1 Performed By: #### L 500.4050, L3310.0000, L501.2300, L100.0500 ####[facility] [address] [place], [address] GAP 16 High 5-15 [facility] Comment on above: Order Comment: 516.1 Performed By: #### L 500.4050, L3310.0000, L501.2300, L100.0500 ####[facility] [address] [place], [address] GFR/1.73 sq M.predicted among non-blacks MDRD (S/P/Bld) [Vol rate/Area] 10 mL/min/{1.73_m2} Low >60 [facility] Comment on above: Order Comment: 516.1 Result Comment: mL/m in/1.73m2 CKD-EPI Creatinine Equation (2020) Performed By: #### L 500.4050, L3310.0000, L501.2300, L100.0500 ####[facility] [address] [place], [address] Globulin (S) [Mass/Vol] 2.3 g/dL Normal 2.2-4.2 [facility] Comment on above: Order Comment: 516.1 Performed By: #### L 500.4050, L3310.0000, L501.2300, L100.0500 ####[facility] [address] [place], [address] Glucose [Mass/Vol] 139 mg/dL High 70-99 [facility] Comment on above: Order Comment: 516.1 Performed By: #### L 500.4050, L3310.0000, L501.2300, L100.0500 ####[facility] [address] [place], [address] Potassium [Moles/Vol] 4.0 mmol/L Normal 3.3-5.1 [facility] Comment on above: Order Comment: 516.1 Performed By: #### L 500.4050, L3310.0000, L501.2300, L100.0500 ####[facility] [address] [place], [address] Sodium [Moles/Vol] 140 mmol/L Normal 133-145 [facility] Comment on above: Order Comment: 516.1 Performed By: #### L 500.4050, L3310.0000, L501.2300, L100.0500 ####[facility] [address] [place], [address] T PROT 6.6 g/dL Normal 5.9-8.4 [facility] Comment on above: Order Comment: 516.1 Performed By: #### L 500.4050, L3310.0000, L501.2300, L100.0500 ####[facility] [address] [place], [address] Urea nitrogen [Mass/Vol] 55 mg/dL High 4-19 [facility] Comment on above: Order Comment: 516.1 Performed By: #### L 500.4050, L3310.0000, L501.2300, L100.0500 ####[facility] [address], [address] Erythrocyte distribution wid th ratioOrdered By: Devendra Beverly on 04-06-2025 Erythrocyte distribution width (RBC) [Ratio] 12.3 % 11.6-14.6 [facility] Erythrocyte distribution wid th standard deviationOrdered By: Devendra Beverly on 04-06-2025 Erythrocyte distribution width (RBC) [Ratio] 42.8 fl 35.1-43.9 [facility] Glomerular filtration rate ( GFR) estimation/1.73 sq m using serum, plasma, or whole bOrdered By: Devendra Beverly on 04-06-2025 GFR/1.73 sq M.predicted among non-blacks MDRD (S/P/Bld) [Vol rate/Area] 10 mL/min/{1.73_m2} Low >60 [facility] Comment on above: mL/min/1.73m2 CKD-EP I Creatinine Equation (2020) Hematocrit Auto (Bld) [Volum e fraction]Ordered By: Devendra Beverly on 04-06-2025 Hematocrit (Bld) [Volume fraction] 27.1 % Low 37-47 [facility] Hemoglobin measurementOrdere d By: Devendra Beverly on 04-06-2025 Hemoglobin (Bld) [Mass/Vol] 8.9 g/dL Low 12.0-15.0 [facility] Laboratory - Chemistry and C hemistry - challengeOrdered By: Devendra Beverly on 04-06-2025 AST [Catalytic activity/Vol] 18 U/L <32 [facility] LevetiracetamOrdered By: Tee Beverly on 04-06-2025 levETIRAcetam [Mass/Vol] 11.2 ug/mL 10.0-40.0 [facility] Comment on above: Performed at: [address] [id number] Director: Rk Petty MD, Phone: [phone] MCV (mean corpuscular volume ) determinationOrdered By: Devendra Beverly on 04-06-2025 MCV (RBC) [Entitic vol] 94.8 fL 81-99 [facility] Mean corpuscular hemoglobin (MCH) determinationOrdered By: Devendra Beverly on 04-06-2025 MCH (RBC) [Entitic mass] 31.1 pg 27.0-32.0 [facility] Mean corpuscular hemoglobin concentration (MCHC) determinationOrdered By: Devendra Beverly on 04-06-2025 MCHC (RBC) [Mass/Vol] 32.8 g/dL 32-36 [facility] Mean platelet volume determi nationOrdered By: Devendra Beverly on 04-06-2025 Platelet mean volume (Bld) [Entitic vol] 10.6 fL 6.2-12.0 [facility] Phosphoruson 04-06-2025 Phosphate [Mass/Vol] 4.7 mg/dL High 2.7-4.5 [facility] Comment on above: Order Comment: 516.1 Performed By: #### L 500.4050, L3310.0000, L501.2300, L100.0500 ####[facility] [address] [place], [address] Platelet countOrdered By: Keaton Beverly on 04-06-2025 Platelets (Bld) [#/Vol] 301 10*3/uL 150-450 [facility] Potassium measurement (mass/ volume)Ordered By: Devendra Beverly on 04-06-2025 Potassium (Unsp spec) [Mass/Vol] 4.0 mmol/L 3.3-5.1 [facility] RBC Auto (Bld) [#/Vol]Ordere d By: Devendra Beverly on 04-06-2025 RBC (Bld) [#/Vol] 2.86 10*6/uL Low 4.2-5.4 [facility] Serum creatinine measurement (mass/volume)Ordered By: Devendra Beverly on 04-06-2025 Creatinine [Mass/Vol] 4.45 mg/dL High 0.70-1.20 [facility] Serum globulin measurementOr dered By: Devendra Beverly on 04-06-2025 Globulin (S) [Mass/Vol] 2.3 g/dL 2.2-4.2 [facility] Serum glucose measurement (m ass/volume)Ordered By: Devendra Beverly on 04-06-2025 Glucose [Mass/Vol] 139 mg/dL High 70-99 [facility] Serum or plasma alanine mckeon otransferase (ALT) measurementOrdered By: Devendra Beverly on 04-06-2025 ALT [Catalytic activity/Vol] 14 U/L <35 [facility] Serum or plasma albumin yamil urement (mass/volume)Ordered By: Devendra Beverly on 04-06-2025 Albumin [Mass/Vol] 4.3 g/dL 3.4-4.8 [facility] Serum or plasma albumin/glob ulin mass ratioOrdered By: Devendra Beverly on 04-06-2025 Albumin/Globulin [Mass ratio] 1.8 {ratio} 0.9-2.4 [facility] Serum or plasma alkaline anthony sphatase measurementOrdered By: Devendra Beverly on 04-06-2025 ALP [Catalytic activity/Vol] 83 U/L 35-104 [facility] Serum or plasma calcium yamil urement (mass/volume)Ordered By: Devendra Beverly on 04-06-2025 Calcium [Mass/Vol] 9.5 mg/dL 7.6-11.0 [facility] Serum or plasma urea nitroge n measurement (mass/volume)Ordered By: Devendra Beverly on 04-06-2025 Urea nitrogen [Mass/Vol] 55 mg/dL High 4-19 [facility] Sodium levelOrdered By: Collin Beverly on 04-06-2025 Sodium [Moles/Vol] 140 mmol/L 133-145 [facility] Total proteinOrdered By: Tee Beverly on 04-06-2025 Protein [Mass/Vol] 6.6 g/dL 5.9-8.4 [facility] White blood cell (WBC) count Ordered By: Devendra Beverly on 04-06-2025 WBC (Bld) [#/Vol] 9.2 10*3/uL 4.4-11.0 [facility] Urine Cultureon 04-01-2025 URC Normal [facility] Comment on above: Performed By: #### L 400.0001, M100.2199 ####[facility] [address] [place], [address] Bilirubin Test strip Ql (U)O rdered By: Devendra Beverly on 03-30-2025 Bilirubin Ql (U) Negative Negative [facility] Ketones Test strip Ql (U)Ord ered By: Devendra Beverly on 03-30-2025 Ketones Ql (U) Negative Negative [facility] Microscopic analysis of urin e for red blood cells (RBC)Ordered By: Devendra Beverly on 03-30-2025 Microscopic analysis of urine for red blood cells (RBC) 0 SEEN /hpf 0-5 [facility] Mucus LM Ql (Urine sed)Order ed By: Devendra Beverly on 03-30-2025 Mucus Ql (Urine sed) 0 SEEN /hpf [facility] Nitrite Test strip Ql (U)Ord ered By: Devendra Beverly on 03-30-2025 Nitrite Ql (U) Negative Negative [facility] Protein Test strip Ql (U)Ord ered By: Devendra Beverly on 03-30-2025 Protein Ql (U) 100 mg/dl High Negative [facility] Squamous epithelial cells de tection in urine sediment by light microscopyOrdered By: Devendra Beverly on 03-30-2025 Epithelial cells.squamous LM Ql (Urine sed) 0-5 SEEN /hpf 5-10 [facility] Transitional cells detection in urine sediment by light microscopyOrdered By: Devendra Beverly on 03-30-2025 Transitional cells LM Ql (Urine sed) 0-5 SEEN /hpf 0-5 [facility] Urinalysis, Completeon 03-30 BACTERIA 1+ /hpf Normal None Seen [facility] Comment on above: Order Comment: CLEAN CATCH Performed By: #### L 400.0001, M100.0 ####[facility] [address], [address] EPI,SQUAMOUS 0-5 SEEN Normal 5-10 [facility] Comment on above: Order Comment: CLEAN CATCH Performed By: #### L 400.0001, M100.2200 ####[facility] [address] [place], [address] WBC 25-50 SEEN Normal 0-5 [facility] Comment on above: Order Comment: CLEAN CATCH Performed By: #### L 400.0001, M100.2200 ####[facility] [address] [place], [address] EPI,TRANSITION 0-5 SEEN Normal 0-5 [facility] Comment on above: Order Comment: CLEAN CATCH Performed By: #### L 400.0001, M100.2200 ####[facility] [address] [place], [address] Mucus Ql (Urine sed) 0 SEEN Normal [facility] Comment on above: Order Comment: CLEAN CATCH Performed By: #### L 400.0001, M100.2200 ####[facility] [address] [place], [address] RBC 0 SEEN Normal 0-5 [facility] Comment on above: Order Comment: CLEAN CATCH Performed By: #### L 400.0001, M100.2200 ####[facility] [address] [place], [address] Urine clarityOrdered By: Tee Beverly on 03-30-2025 Clarity (U) Sl. Cloudy Clear [facility] Urine color determinationOrd ered By: Devendra Beverly on 03-30-2025 Color (U) Yellow Yellow [facility] Urine cultureOrdered By: Tee Beverly on 03-30-2025 Bacteria identified Cx Nom (U) Morganella morganii sp morgani Abnormal [facility] Urine glucose detectionOrder ed By: Devendra Beverly on 03-30-2025 Glucose Ql (U) 100 mg/dl High Normal [facility] Urine leukocyte esterase det ection by dipstickOrdered By: Devendra Beverly on 03-30-2025 Leukocyte esterase Test strip Ql (U) 500 /ul High Negative [facility] Urine pHOrdered By: Devendra warren on 03-30-2025 pH (U) 7.0 [pH] 5.0 - 8.0 [facility] Urine sediment bacteria coun t by microscopy (number/high power field)Ordered By: Devendra Beverly on 03-30-2025 Bacteria LM.HPF (Urine sed) [#/Area] 1 /[HPF] None Seen [facility] Urine specific gravity measu rementOrdered By: Devendra Beverly on 03-30-2025 Specific gravity (U) [Rel density] 1.010 1.002-1.030 [facility] Urine urobilinogen measureme ntOrdered By: Devendra Beverly on 03-30-2025 Urobilinogen Ql (U) Normal mg/dl Normal [facility] White blood cell countOrdere d By: Devendra Beverly on 03-30-2025 White blood cell count 25-50 SEEN /hpf 0-5 [facility] Magnesiumon 02-12-2025 Magnesium [Mass/Vol] 2.2 mg/dL Normal 1.5-2.2 [facility] Comment on above: Performed By: #### L 501.5207 ####[facility] [address] [place], [place], [address] Magnesium measurement (mass/ volume)Ordered By: Devendra Beverly on 02-12-2025 Magnesium (Unsp spec) [Mass/Vol] 2.2 mg/dL 1.5-2.2 [facility] Vitamin D,25 Hydroxyon 01-13 Vitamin D 25-OH 57.4 ng/mL Normal 30-100 [facility] Comment on above: Order Comment: 516-1 Result Comment: Lois min D StatusDeficiency: <20 ng/mL (50nmol/L)Insufficiency: 20-30 ng/mL (50-75 nmol/L)Sufficiency: 30-100 ng/mL (75-250 nmol/L)Toxicity: >100 ng/mL (>250 nmol/L) Performed By: #### L 506.1001 ####[facility] [address] [place], [address] Anion gap in Serum or Plasma Ordered By: Johana Landrum on 12-02-2024 Anion gap [Moles/Vol] 17 mmol/L High 5-15 [facility] BUN/creatinine ratioOrdered By: Johana Landrum on 12-02-2024 Urea nitrogen/Creatinine [Mass ratio] 13.2 mg/mg - [facility] Basic Metabolic Profile (BMP )on 12-02-2024 BUN/CRE 13.2 RATIO Normal - [facility] Comment on above: Order Comment: 516.1 Performed By: #### L 506.1001, L100.0500, L500.2500, L501.0900 ####[facility] [address] [place], [address] Calcium [Mass/Vol] 9.4 mg/dL Normal 7.6-11.0 [facility] Comment on above: Order Comment: 516.1 Performed By: #### L 506.1001, L100.0500, L500.2500, L501.0900 ####[facility] [address] [place], [address] Chloride [Moles/Vol] 105 mmol/L Normal 98-108 [facility] Comment on above: Order Comment: 516.1 Performed By: #### L 506.1001, L100.0500, L500.2500, L501.0900 ####[facility] [address] [place], [address] CO2 [Moles/Vol] 19.6 mmol/L Low 21.0-32.0 [facility] Comment on above: Order Comment: 516.1 Performed By: #### L 506.1001, L100.0500, L500.2500, L501.0900 ####[facility] [address] [place], [address] Creatinine [Mass/Vol] 3.79 mg/dL High 0.70-1.20 [facility] Comment on above: Order Comment: 516.1 Performed By: #### L 506.1001, L100.0500, L500.2500, L501.0900 ####[facility] [address] [place], [address] GAP 17 High 5-15 [facility] Comment on above: Order Comment: 516.1 Performed By: #### L 506.1001, L100.0500, L500.2500, L501.0900 ####[facility] [address] [place], [address] GFR/1.73 sq M.predicted among non-blacks MDRD (S/P/Bld) [Vol rate/Area] 12 mL/min/{1.73_m2} Low >60 [facility] Comment on above: Order Comment: 516.1 Result Comment: mL/m in/1.73m2 CKD-EPI Creatinine Equation (2020) Performed By: #### L 506.1001, L100.0500, L500.2500, L501.0900 ####[facility] [address] [place], [address] Glucose [Mass/Vol] 127 mg/dL High 70-99 [facility] Comment on above: Order Comment: 516.1 Performed By: #### L 506.1001, L100.0500, L500.2500, L501.0900 ####[facility] [address] [place], [address] Potassium [Moles/Vol] 3.7 mmol/L Normal 3.3-5.1 [facility] Comment on above: Order Comment: 516.1 Performed By: #### L 506.1001, L100.0500, L500.2500, L501.0900 ####[facility] [address] [place], [address] Sodium [Moles/Vol] 141 mmol/L Normal 133-145 [facility] Comment on above: Order Comment: 516.1 Performed By: #### L 506.1001, L100.0500, L500.2500, L501.0900 ####[facility] [address] [place], [address] Urea nitrogen [Mass/Vol] 50 mg/dL High 4-19 [facility] Comment on above: Order Comment: 516.1 Performed By: #### L 506.1001, L100.0500, L500.2500, L501.0900 ####[facility] [address] [place], [address] CBC-Complete Blood Cnt No Di ffon 12-02-2024 Erythrocyte distribution width (RBC) [Ratio] 11.9 % Normal 11.6-14.6 [facility] Comment on above: Order Comment: 516.1 Performed By: #### L 506.1001, L100.0500, L500.2500, L501.0900 ####[facility] [address] [place], [address] Hematocrit (Bld) [Volume fraction] 28.2 % Low 37-47 [facility] Comment on above: Order Comment: 516.1 Performed By: #### L 506.1001, L100.0500, L500.2500, L501.0900 ####[facility] [address] [place], [address] Hemoglobin (Bld) [Mass/Vol] 9.8 g/dL Low 12.0-15.0 [facility] Comment on above: Order Comment: 516.1 Performed By: #### L 506.1001, L100.0500, L500.2500, L501.0900 ####[facility] [address] [place], [address] MCH (RBC) [Entitic mass] 32.1 pg High 27.0-32.0 [facility] Comment on above: Order Comment: 516.1 Performed By: #### L 506.1001, L100.0500, L500.2500, L501.0900 ####[facility] [address] [place], [address] MCHC (RBC) [Mass/Vol] 34.8 g/dL Normal 32-36 [facility] Comment on above: Order Comment: 516.1 Performed By: #### L 506.1001, L100.0500, L500.2500, L501.0900 ####[facility] [address] [place], [address] MCV (RBC) [Entitic vol] 92.5 fL Normal 81-99 [facility] Comment on above: Order Comment: 516.1 Performed By: #### L 506.1001, L100.0500, L500.2500, L501.0900 ####[facility] [address] [place], [address] Platelet mean volume (Bld) [Entitic vol] 10.3 fL Normal 6.2-12.0 [facility] Comment on above: Order Comment: 516.1 Performed By: #### L 506.1001, L100.0500, L500.2500, L501.0900 ####[facility] [address] [place], [address] Platelets (Bld) [#/Vol] 341 10*3/uL Normal 150-450 [facility] Comment on above: Order Comment: 516.1 Performed By: #### L 506.1001, L100.0500, L500.2500, L501.0900 ####[facility] [address] [place], [address] RBC (Bld) [#/Vol] 3.05 10*6/uL Low 4.2-5.4 [facility] Comment on above: Order Comment: 516.1 Performed By: #### L 506.1001, L100.0500, L500.2500, L501.0900 ####[facility] [address] [place], [address] RDW SD 39.9 fl Normal 35.1-43.9 [facility] Comment on above: Order Comment: 516.1 Performed By: #### L 506.1001, L100.0500, L500.2500, L501.0900 ####[facility] [address] [place], [address] WBC (Bld) [#/Vol] 10.2 10*3/uL Normal 4.4-11.0 [facility] Comment on above: Order Comment: 516.1 Performed By: #### L 506.1001, L100.0500, L500.2500, L501.0900 ####[facility] [address] [place], [address] Carbon dioxide, total [Moles /volume] in Central venous bloodOrdered By: Johana Landrum on 12-02-2024 CO2 [Moles/Vol] 19.6 mmol/L Low 21.0-32.0 [facility] Chloride assayOrdered By: Jake Landrum on 12-02-2024 Chloride [Moles/Vol] 105 mmol/L 98-108 [facility] Creatinine Unsp time (U) [Ma ss/Vol]Ordered By: Johana Landrum on 12-02-2024 Creatinine (U) [Mass/Vol] 48.90 mg/dL 28.00-217.00 [facility] Erythrocyte distribution wid th (RBC) [Ratio]Ordered By: Johana Landrum on 12-02-2024 Erythrocyte distribution width (RBC) [Entitic vol] 39.9 fL 35.1-43.9 [facility] Erythrocyte distribution wid th ratioOrdered By: Johana Landrum on 12-02-2024 Erythrocyte distribution width (RBC) [Ratio] 11.9 % 11.6-14.6 [facility] Erythrocyte distribution wid th standard deviationOrdered By: Johana Landrum on 12-02-2024 Erythrocyte distribution width (RBC) [Ratio] 39.9 fl 35.1-43.9 [facility] GFR/1.73 sq M.predicted sharif g non-blacks MDRD (S/P/Bld) [Vol rate/Area]Ordered By: Johana Landrum on 12-02-2024 Estimated GFR (MDRD) Non-Af Amer 12 Low >60 [facility] Comment on above: mL/min/1.73m2 CKD-EP I Creatinine Equation (2020) Glomerular filtration rate ( GFR) estimation/1.73 sq m using serum, plasma, or whole bOrdered By: Johana Landrum on 12-02-2024 GFR/1.73 sq M.predicted among non-blacks MDRD (S/P/Bld) [Vol rate/Area] 12 mL/min/{1.73_m2} Low >60 [facility] Comment on above: mL/min/1.73m2 CKD-EP I Creatinine Equation (2020) Hematocrit Auto (Bld) [Volum e fraction]Ordered By: Johana Landrum on 12-02-2024 Hematocrit (Bld) [Volume fraction] 28.2 % Low 37-47 [facility] Hemoglobin measurementOrdere d By: Johana Landrum on 12-02-2024 Hemoglobin (Bld) [Mass/Vol] 9.8 g/dL Low 12.0-15.0 [facility] L506.1001on 12-02-2024 Vitamin D 25-OH 31.9 ng/mL Normal 30-100 [facility] Comment on above: Order Comment: 516.1 Result Comment: Lois min D StatusDeficiency: <20 ng/mL (50nmol/L)Insufficiency: 20-30 ng/mL (50-75 nmol/L)Sufficiency: 30-100 ng/mL (75-250 nmol/L)Toxicity: >100 ng/mL (>250 nmol/L) Performed By: #### L 506.1001, L100.0500, L500.2500, L501.0900 ####[facility] [address] [place], [place], [id number] MCV (mean corpuscular volume ) determinationOrdered By: Johana Landrum on 12-02-2024 MCV (RBC) [Entitic vol] 92.5 fL 81-99 [facility] Mean corpuscular hemoglobin (MCH) determinationOrdered By: Johana Landrum on 12-02-2024 MCH (RBC) [Entitic mass] 32.1 pg High 27.0-32.0 [facility] Mean corpuscular hemoglobin concentration (MCHC) determinationOrdered By: Johana Landrum on 12-02-2024 MCHC (RBC) [Mass/Vol] 34.8 g/dL 32-36 [facility] Mean platelet volume determi nationOrdered By: Johana Landrum on 12-02-2024 Platelet mean volume (Bld) [Entitic vol] 10.3 fL 6.2-12.0 [facility] Platelet countOrdered By: Jake Landrum on 12-02-2024 Platelets (Bld) [#/Vol] 341 10*3/uL 150-450 [facility] Potassium (Unsp spec) [Mass/ Vol]Ordered By: Johanajosé manuel Landrum on 12-02-2024 Potassium [Moles/Vol] 3.7 mmol/L 3.3-5.1 [facility] Potassium measurement (mass/ volume)Ordered By: Johanajosé manuel Landrum on 12-02-2024 Potassium (Unsp spec) [Mass/Vol] 3.7 mmol/L 3.3-5.1 [facility] Protein+Creatinine Ratio,Uri neon 12-02-2024 PROT:CRE RATIO 1973 mg/g CRE High 0-200 [facility] Comment on above: Performed By: #### L 506.1001, L100.0500, L500.2500, L501.0900 ####[facility] [address] [place], [place], [id number] Protein (U) [Mass/Vol] 96.5 mg/dL High 0.0-12.0 [facility] Comment on above: Performed By: #### L 506.1001, L100.0500, L500.2500, L501.0900 ####[facility] [address] [place], [address] UR CREAT 48.90 mg/dL Normal 28.00-217.00 [facility] Comment on above: Performed By: #### L 506.1001, L100.0500, L500.2500, L501.0900 ####[facility] [address] [place], [address] Protein/Creatinine (U) [Mass ratio]Ordered By: Johana Landrum on 12-02-2024 Urine Protein/Creatinine Ratio 1973 mg/g CRE High 0-200 [facility] RBC Auto (Bld) [#/Vol]Ordere d By: Johana Landrum on 12-02-2024 RBC (Bld) [#/Vol] 3.05 10*6/uL Low 4.2-5.4 [facility] Random urine creatinine yamil urement (mass/volume)Ordered By: Johana Landrum on 12-02-2024 Creatinine Unsp time (U) [Mass/Vol] 48.90 mg/dL 28.00-217.00 [facility] Serum creatinine measurement (mass/volume)Ordered By: Johana Landrum on 12-02-2024 Creatinine [Mass/Vol] 3.79 mg/dL High 0.70-1.20 [facility] Serum glucose measurement (m ass/volume)Ordered By: Johana Landrum on 12-02-2024 Glucose [Mass/Vol] 127 mg/dL High 70-99 [facility] Serum or plasma calcium yamil urement (mass/volume)Ordered By: Johana Landrum on 12-02-2024 Calcium [Mass/Vol] 9.4 mg/dL 7.6-11.0 [facility] Serum or plasma urea nitroge n measurement (mass/volume)Ordered By: Johana Landrum on 12-02-2024 Urea nitrogen [Mass/Vol] 50 mg/dL High 4-19 [facility] Sodium levelOrdered By: Doris Landrum on 12-02-2024 Sodium [Moles/Vol] 141 mmol/L 133-145 [facility] Urine protein measurement (m ass/volume)Ordered By: Johana Landrum on 12-02-2024 Protein (U) [Mass/Vol] 96.5 mg/dL High 0.0-12.0 [facility] Urine protein/creatinine mas s ratioOrdered By: Johana Landrum on 12-02-2024 Protein/Creatinine (U) [Mass ratio] 1973 mg/g CRE High 0-200 [facility] Vitamin D, 25-hydroxyOrdered By: Johana Landrum on 12-02-2024 Vitamin D 25-Hydroxy 31.9 ng/mL 30-100 [facility] Comment on above: Vitamin D StatusDefi ciency: <20 ng/mL (50nmol/L)Insufficiency: 20-30 ng/mL (50-75 nmol/L)Sufficiency: 30-100 ng/mL (75-250 nmol/L)Toxicity: >100 ng/mL (>250 nmol/L) White blood cell (WBC) count Ordered By: Johana Landrum on 12-02-2024 WBC (Bld) [#/Vol] 10.2 10*3/uL 4.4-11.0 [facility] Absolute lymphocyte countOrd ered By: Johana Landrum on 11-30-2024 Lymphocytes Auto (Unsp spec) [#/Vol] 2.30 10*3/uL 0.83-4.51 [facility] Absolute neutrophil countOrd ered By: Johana Landrum on 11-30-2024 Neutrophils (Bld) [#/Vol] 6.5 10*3/uL 2.0-7.7 [facility] Anion gap in Serum or Plasma Ordered By: Johana Landrum on 11-30-2024 Anion gap [Moles/Vol] 17 mmol/L High 5-15 [facility] Automated lymphocyte count a s percentage of total leukocytesOrdered By: Johana Landrum on 11-30-2024 Lymphocytes/100 WBC Auto (Unsp spec) 22.4 % 19-41 [facility] BUN/creatinine ratioOrdered By: Johana Landrum on 11-30-2024 Urea nitrogen/Creatinine [Mass ratio] 12.9 mg/mg 10-20 [facility] Basophil percentageOrdered B y: Joahna Landrum on 11-30-2024 Basophils/100 WBC (Bld) 0.7 % 0-1 [facility] Bilirubin, totalOrdered By: Johana Landrum on 11-30-2024 Bilirubin [Mass/Vol] 0.18 mg/dL 0.00-1.30 [facility] CBC W/Diff, Automatedon 11-02-2024 Absolute Lymph 2.30 X10 3/uL Normal 0.83-4.51 [facility] Comment on above: Order Comment: 516.1 Performed By: #### L 500.4050, L501.5200, L100.0100 ####[facility] [address] [place], [address] Absolute Neut 6.5 X10 3/uL Normal 2.0-7.7 [facility] Comment on above: Order Comment: 516.1 Performed By: #### L 500.4050, L501.5200, L100.0100 ####[facility] [address] [place], [address] Basophils/100 WBC (Bld) 0.7 % Normal 0-1 [facility] Comment on above: Order Comment: 516.1 Performed By: #### L 500.4050, L501.5200, L100.0100 ####[facility] [address] [place], [address] Eosinophils/100 WBC (Bld) 3.4 % Normal 0-5 [facility] Comment on above: Order Comment: 516.1 Performed By: #### L 500.4050, L501.5200, L100.0100 ####[facility] [address] [place], [address] Erythrocyte distribution width (RBC) [Ratio] 11.9 % Normal 11.6-14.6 [facility] Comment on above: Order Comment: 516.1 Performed By: #### L 500.4050, L501.5200, L100.0100 ####[facility] [address] [place], [address] Hematocrit (Bld) [Volume fraction] 28.3 % Low 37-47 [facility] Comment on above: Order Comment: 516.1 Performed By: #### L 500.4050, L501.5200, L100.0100 ####[facility] [address] [place], [address] Hemoglobin (Bld) [Mass/Vol] 9.5 g/dL Low 12.0-15.0 [facility] Comment on above: Order Comment: 516.1 Performed By: #### L 500.4050, L501.5200, L100.0100 ####[facility] [address] [place], [address] IG% 1.000 High 0.0-0.9 [facility] Comment on above: Order Comment: 516.1 Result Comment: IG% - Immature Granulocytes (promyelocytes, myelocytes andmetamyelocytes) > 1% indicates that a LEFT SHIFT is Present. Performed By: #### L 500.4050, L501.5200, L100.0100 ####[facility] [address] [place], [address] Lymphocytes/100 WBC (Bld) 22.4 % Normal 19-41 [facility] Comment on above: Order Comment: 516.1 Performed By: #### L 500.4050, L501.5200, L100.0100 ####[facility] [address] [place], [address] MCH (RBC) [Entitic mass] 31.1 pg Normal 27.0-32.0 [facility] Comment on above: Order Comment: 516.1 Performed By: #### L 500.4050, L501.5200, L100.0100 ####[facility] [address] [place], [address] MCHC (RBC) [Mass/Vol] 33.6 g/dL Normal 32-36 [facility] Comment on above: Order Comment: 516.1 Performed By: #### L 500.4050, L501.5200, L100.0100 ####[facility] [address] [place], [address] MCV (RBC) [Entitic vol] 92.8 fL Normal 81-99 [facility] Comment on above: Order Comment: 516.1 Performed By: #### L 500.4050, L501.5200, L100.0100 ####[facility] [address] [place], [address] Monocytes/100 WBC (Bld) 9.5 % Normal 0-10 [facility] Comment on above: Order Comment: 516.1 Performed By: #### L 500.4050, L501.5200, L100.0100 ####[facility] [address] [place], [address] Neutrophils/100 WBC (Bld) 63.0 % Normal 47-70 [facility] Comment on above: Order Comment: 516.1 Performed By: #### L 500.4050, L501.5200, L100.0100 ####[facility] [address] [place], [address] Nucleated RBC (Bld) [#/Vol] 0 10*3/uL Normal 0-5 [facility] Comment on above: Order Comment: 516.1 Performed By: #### L 500.4050, L501.5200, L100.0100 ####[facility] [address] [place], [address] Platelet mean volume (Bld) [Entitic vol] 10.1 fL Normal 6.2-12.0 [facility] Comment on above: Order Comment: 516.1 Performed By: #### L 500.4050, L501.5200, L100.0100 ####[facility] [address] [place], [address] Platelets (Bld) [#/Vol] 335 10*3/uL Normal 150-450 [facility] Comment on above: Order Comment: 516.1 Performed By: #### L 500.4050, L501.5200, L100.0100 ####[facility] [address] [place], [address] RBC (Bld) [#/Vol] 3.05 10*6/uL Low 4.2-5.4 [facility] Comment on above: Order Comment: 516.1 Performed By: #### L 500.4050, L501.5200, L100.0100 ####[facility] [address] [place], [address] RDW SD 40.1 fl Normal 35.1-43.9 [facility] Comment on above: Order Comment: 516.1 Performed By: #### L 500.4050, L501.5200, L100.0100 ####[facility] [address] [place], [address] WBC (Bld) [#/Vol] 10.3 10*3/uL Normal 4.4-11.0 [facility] Comment on above: Order Comment: 516.1 Performed By: #### L 500.4050, L501.5200, L100.0100 ####[facility] [address] [place], [address] Carbon dioxide, total [Moles /volume] in Central venous bloodOrdered By: Johana Landrum on 11-30-2024 CO2 [Moles/Vol] 18.2 mmol/L Low 21.0-32.0 [facility] Chloride assayOrdered By: Jake Landrum on 11-30-2024 Chloride [Moles/Vol] 105 mmol/L 98-108 [facility] Comprehensive Metabolic Prof ilon 11-30-2024 Albumin [Mass/Vol] 4.3 g/dL Normal 3.4-4.8 [facility] Comment on above: Order Comment: 516.1 Performed By: #### L 500.4050, L501.5200, L100.0100 ####[facility] [address] [place], [address] Albumin/Globulin [Mass ratio] 1.8 {ratio} Normal 0.9-2.4 [facility] Comment on above: Order Comment: 516.1 Performed By: #### L 500.4050, L501.5200, L100.0100 ####[facility] [address] [place], [address] ALK PHOS 73 U/L Normal 35-104 [facility] Comment on above: Order Comment: 516.1 Performed By: #### L 500.4050, L501.5200, L100.0100 ####[facility] [address] [place], [address] ALT [Catalytic activity/Vol] 12 U/L Normal <=34 [facility] Comment on above: Order Comment: 516.1 Performed By: #### L 500.4050, L501.5200, L100.0100 ####[facility] [address] [place], [address] AST [Catalytic activity/Vol] 17 U/L Normal <=31 [facility] Comment on above: Order Comment: 516.1 Performed By: #### L 500.4050, L501.5200, L100.0100 ####[facility] [address] [place], [address] Bilirubin [Mass/Vol] 0.18 mg/dL Normal 0.00-1.30 [facility] Comment on above: Order Comment: 516.1 Performed By: #### L 500.4050, L501.5200, L100.0100 ####[facility] [address] [place], [address] BUN/CRE 12.9 RATIO Normal 10-20 [facility] Comment on above: Order Comment: 516.1 Performed By: #### L 500.4050, L501.5200, L100.0100 ####[facility] [address] [place], [address] Calcium [Mass/Vol] 9.6 mg/dL Normal 7.6-11.0 [facility] Comment on above: Order Comment: 516.1 Performed By: #### L 500.4050, L501.5200, L100.0100 ####[facility] [address] [place], [address] Chloride [Moles/Vol] 105 mmol/L Normal 98-108 [facility] Comment on above: Order Comment: 516.1 Performed By: #### L 500.4050, L501.5200, L100.0100 ####[facility] [address] [place], [address] CO2 [Moles/Vol] 18.2 mmol/L Low 21.0-32.0 [facility] Comment on above: Order Comment: 516.1 Performed By: #### L 500.4050, L501.5200, L100.0100 ####[facility] [address] [place], [address] Creatinine [Mass/Vol] 3.82 mg/dL High 0.70-1.20 [facility] Comment on above: Order Comment: 516.1 Performed By: #### L 500.4050, L501.5200, L100.0100 ####[facility] [address] [place], [address] GAP 17 High 5-15 [facility] Comment on above: Order Comment: 516.1 Performed By: #### L 500.4050, L501.5200, L100.0100 ####[facility] [address] [place], [address] GFR/1.73 sq M.predicted among non-blacks MDRD (S/P/Bld) [Vol rate/Area] 12 mL/min/{1.73_m2} Low >60 [facility] Comment on above: Order Comment: 516.1 Result Comment: mL/m in/1.73m2 CKD-EPI Creatinine Equation (2020) Performed By: #### L 500.4050, L501.5200, L100.0100 ####[facility] [address] [place], [address] Globulin (S) [Mass/Vol] 2.4 g/dL Normal 2.2-4.2 [facility] Comment on above: Order Comment: 516.1 Performed By: #### L 500.4050, L501.5200, L100.0100 ####[facility] [address] [place], [address] Glucose [Mass/Vol] 93 mg/dL Normal 70-99 [facility] Comment on above: Order Comment: 516.1 Performed By: #### L 500.4050, L501.5200, L100.0100 ####[facility] [address] [place], [address] Potassium [Moles/Vol] 3.7 mmol/L Normal 3.3-5.1 [facility] Comment on above: Order Comment: 516.1 Performed By: #### L 500.4050, L501.5200, L100.0100 ####[facility] [address] [place], [address] Sodium [Moles/Vol] 140 mmol/L Normal 133-145 [facility] Comment on above: Order Comment: 516.1 Performed By: #### L 500.4050, L501.5200, L100.0100 ####[facility] [address], [address] T PROT 6.7 g/dL Normal 5.9-8.4 [facility] Comment on above: Order Comment: 516.1 Performed By: #### L 500.4050, L501.5200, L100.0100 ####[facility] [address] [place], [address] Urea nitrogen [Mass/Vol] 49 mg/dL High 4-19 [facility] Comment on above: Order Comment: 516.1 Performed By: #### L 500.4050, L501.5200, L100.0100 ####[facility] [address] [place], [address] Eosinophil percentageOrdered By: Johana Landrum on 11-30-2024 Eosinophils/100 WBC (Bld) 3.4 % 0-5 [facility] Erythrocyte distribution wid th (RBC) [Ratio]Ordered By: Johana Landrum on 11-30-2024 Erythrocyte distribution width (RBC) [Entitic vol] 40.1 fL 35.1-43.9 [facility] Erythrocyte distribution wid th ratioOrdered By: Johana Landrum on 11-30-2024 Erythrocyte distribution width (RBC) [Ratio] 11.9 % 11.6-14.6 [facility] Erythrocyte distribution wid th standard deviationOrdered By: Johanajosé manuel Landrum on 11-30-2024 Erythrocyte distribution width (RBC) [Ratio] 40.1 fl 35.1-43.9 [facility] GFR/1.73 sq M.predicted sharif g non-blacks MDRD (S/P/Bld) [Vol rate/Area]Ordered By: Johana Landrum on 11-30-2024 Estimated GFR (MDRD) Non-Af Amer 12 Low >60 [facility] Comment on above: mL/min/1.73m2 CKD-EP I Creatinine Equation (2020) Glomerular filtration rate ( GFR) estimation/1.73 sq m using serum, plasma, or whole bOrdered By: Johana Landrum on 11-30-2024 GFR/1.73 sq M.predicted among non-blacks MDRD (S/P/Bld) [Vol rate/Area] 12 mL/min/{1.73_m2} Low >60 [facility] Comment on above: mL/min/1.73m2 CKD-EP I Creatinine Equation (2020) Hematocrit Auto (Bld) [Volum e fraction]Ordered By: Johana Landrum on 11-30-2024 Hematocrit (Bld) [Volume fraction] 28.3 % Low 37-47 [facility] Hemoglobin measurementOrdere d By: Johana Landrum on 11-30-2024 Hemoglobin (Bld) [Mass/Vol] 9.5 g/dL Low 12.0-15.0 [facility] Immature granulocytes/100 WB C Auto (Bld)Ordered By: Johana Landrum on 11-30-2024 Immature granulocytes/100 WBC (Bld) 1.000 % High 0.0-0.9 [facility] Comment on above: IG% - Immature Granu locytes (promyelocytes, myelocytes and metamyelocytes) > 1% indicates that a LEFT SHIFT is Present. Laboratory - Chemistry and C hemistry - challengeOrdered By: Johana Landrum on 11-30-2024 AST [Catalytic activity/Vol] 17 U/L <32 [facility] Lymphocytes Auto (Unsp spec) [#/Vol]Ordered By: Johana Landrum on 11-30-2024 Lymphocytes (Bld) [#/Vol] 2.30 10*3/uL 0.83-4.51 [facility] Lymphocytes/100 WBC Auto (Un sp spec)Ordered By: Johana Landrum on 11-30-2024 Lymphocytes/100 WBC (Bld) 22.4 % 19-41 [facility] MCV (mean corpuscular volume ) determinationOrdered By: Johana Landrum on 11-30-2024 MCV (RBC) [Entitic vol] 92.8 fL 81-99 [facility] Magnesiumon 0331-2025 Magnesium [Mass/Vol] 2.1 mg/dL Normal 1.5-2.2 [facility] Comment on above: Order Comment: 516.1 Performed By: #### L 500.4050, L501.5200, L100.0100 ####[facility] [address] [place], [place], [address] Magnesium (Unsp spec) [Mass/ Vol]Ordered By: Johana Landrum on 11-30-2024 Magnesium [Mass/Vol] 2.1 mg/dL 1.5-2.2 [facility] Magnesium measurement (mass/ volume)Ordered By: Johana Landrum on 11-30-2024 Magnesium (Unsp spec) [Mass/Vol] 2.1 mg/dL 1.5-2.2 [facility] Mean corpuscular hemoglobin (MCH) determinationOrdered By: Johana Landrum on 11-30-2024 MCH (RBC) [Entitic mass] 31.1 pg 27.0-32.0 [facility] Mean corpuscular hemoglobin concentration (MCHC) determinationOrdered By: Johana Landrum on 11-30-2024 MCHC (RBC) [Mass/Vol] 33.6 g/dL 32-36 [facility] Mean platelet volume determi nationOrdered By: Johana Landrum on 11-30-2024 Platelet mean volume (Bld) [Entitic vol] 10.1 fL 6.2-12.0 [facility] Monocyte percentageOrdered B y: Johana Landrum on 11-30-2024 Monocytes/100 WBC (Bld) 9.5 % 0-10 [facility] Neutrophil percentageOrdered By: Johana Landrum on 11-30-2024 Neutrophils/100 WBC (Bld) 63.0 % 47-70 [facility] Nucleated red blood cell per centageOrdered By: Johana Landrum on 11-30-2024 Nucleated RBC/100 WBC (Bld) [Ratio] 0 % 0-5 [facility] Platelet countOrdered By: Jake Landrum on 11-30-2024 Platelets (Bld) [#/Vol] 335 10*3/uL 150-450 [facility] Potassium (Unsp spec) [Mass/ Vol]Ordered By: Johana Landrum on 11-30-2024 Potassium [Moles/Vol] 3.7 mmol/L 3.3-5.1 [facility] Potassium measurement (mass/ volume)Ordered By: Johana Landrum on 11-30-2024 Potassium (Unsp spec) [Mass/Vol] 3.7 mmol/L 3.3-5.1 [facility] RBC Auto (Bld) [#/Vol]Ordere d By: Johana Landrum on 11-30-2024 RBC (Bld) [#/Vol] 3.05 10*6/uL Low 4.2-5.4 [facility] Serum creatinine measurement (mass/volume)Ordered By: Johana Landrum on 11-30-2024 Creatinine [Mass/Vol] 3.82 mg/dL High 0.70-1.20 [facility] Serum globulin measurementOr dered By: Johana Landrum on 11-30-2024 Globulin (S) [Mass/Vol] 2.4 g/dL 2.2-4.2 [facility] Serum glucose measurement (m ass/volume)Ordered By: Johana Landrum on 11-30-2024 Glucose [Mass/Vol] 93 mg/dL 70-99 [facility] Serum or plasma alanine mckeon otransferase (ALT) measurementOrdered By: Johana Landrum on 11-30-2024 ALT [Catalytic activity/Vol] 12 U/L <35 [facility] Serum or plasma albumin yamil urement (mass/volume)Ordered By: Johana Landrum on 11-30-2024 Albumin [Mass/Vol] 4.3 g/dL 3.4-4.8 [facility] Serum or plasma albumin/glob ulin mass ratioOrdered By: Johana Landrum on 11-30-2024 Albumin/Globulin [Mass ratio] 1.8 {ratio} 0.9-2.4 [facility] Serum or plasma alkaline anthony sphatase measurementOrdered By: Johana Landrum on 11-30-2024 ALP [Catalytic activity/Vol] 73 U/L 35-104 [facility] Serum or plasma calcium yamil urement (mass/volume)Ordered By: Johana Landrum on 11-30-2024 Calcium [Mass/Vol] 9.6 mg/dL 7.6-11.0 [facility] Serum or plasma urea nitroge n measurement (mass/volume)Ordered By: Johana Landrum on 11-30-2024 Urea nitrogen [Mass/Vol] 49 mg/dL High 4-19 [facility] Sodium levelOrdered By: Doris Landrum on 11-30-2024 Sodium [Moles/Vol] 140 mmol/L 133-145 [facility] Total proteinOrdered By: Daisy Landrum on 11-30-2024 Protein [Mass/Vol] 6.7 g/dL 5.9-8.4 [facility] White blood cell (WBC) count Ordered By: Johana Landrum on 11-30-2024 WBC (Bld) [#/Vol] 10.3 10*3/uL 4.4-11.0 [facility] Urine Cultureon 09-24-2024 URC Normal [facility] Comment on above: Performed By: #### L 400.0001, M100.2200 ####[facility] [address] [place], [address] Bilirubin Test strip Ql (U)O rdered By: Johana Landrum on 09-21-2024 Bilirubin Ql (U) Negative Negative [facility] Epithelial cells.squamous LM Ql (Urine sed)Ordered By: Johana Landrum on 09-21-2024 Epithelial cells.squamous LM.HPF (Urine sed) [#/Area] 0 /[HPF] 5-10 [facility] Glucose Ql (U)Ordered By: Jake Landrum on 09-21-2024 Glucose (U) [Mass/Vol] 50 mg/dL High Normal [facility] Ketones Test strip Ql (U)Ord ered By: Johana Landrum on 09-21-2024 Ketones Ql (U) Negative Negative [facility] Microscopic analysis of urin e for red blood cells (RBC)Ordered By: Johana Landrum on 09-21-2024 Urine RBC 0 SEEN /hpf 0-5 [facility] Mucus LM Ql (Urine sed)Order ed By: Johana Landrum on 09-21-2024 Mucus Ql (Urine sed) 0 SEEN /hpf [facility] Nitrite Test strip Ql (U)Ord ered By: Johana Landrum on 09-21-2024 Nitrite Ql (U) Negative Negative [facility] Protein Test strip Ql (U)Ord ered By: Johana Landrum on 09-21-2024 Protein Ql (U) 100 mg/dl High Negative [facility] Urinalysis, Completeon 09-21 EPI,SQUAMOUS 0-5 SEEN Normal 5-10 [facility] Comment on above: Order Comment: CLEAN CATCH Performed By: #### L 400.0001, M100.2200 ####[facility] [address] [place], [address] WBC 25-50 SEEN Normal 0-5 [facility] Comment on above: Order Comment: CLEAN CATCH Performed By: #### L 400.0001, M100.2200 ####[facility] [address] [place], [address] BACTERIA 0 SEEN Normal None Seen [facility] Comment on above: Order Comment: CLEAN CATCH Performed By: #### L 400.0001, M100.2200 ####[facility] [address] [place], [address] Mucus Ql (Urine sed) 0 SEEN Normal [facility] Comment on above: Order Comment: CLEAN CATCH Performed By: #### L 400.0001, M100.2200 ####[facility] [address] [place], [address] RBC 0 SEEN Normal 0-5 [facility] Comment on above: Order Comment: CLEAN CATCH Performed By: #### L 400.0001, M100.2200 ####[facility] [address] [place], [address] Urine blood detectionOrdered By: Johana Landrum on 09-21-2024 Urine Occult Blood 25 /ul High Negative [facility] Urine clarityOrdered By: Daisy Landrum on 09-21-2024 Clarity (U) Sl. Cloudy Clear [facility] Urine color determinationOrd ered By: Johana Landrum on 09-21-2024 Color (U) Yellow Yellow [facility] Urine cultureOrdered By: Daisy Landrum on 09-21-2024 Bacteria identified Cx Nom (U) ESBL Escherichia coli Abnormal [facility] Urine leukocyte esterase det ection by dipstickOrdered By: Johana Landrum on 09-21-2024 Leukocyte esterase Test strip Ql (U) 500 /ul High Negative [facility] Urine pHOrdered By: Johana Holguin udla on 09-21-2024 pH (U) 6.5 [pH] 5.0 - 8.0 [facility] Urine sediment bacteria coun t by microscopy (number/high power field)Ordered By: Johana Landrum on 09-21-2024 Bacteria LM.HPF (Urine sed) [#/Area] 0 /[HPF] None Seen [facility] Urine specific gravity measu rementOrdered By: Johana Landrum on 09-21-2024 Specific gravity (U) [Rel density] 1.010 1.002-1.030 [facility] Urobilinogen Ql (U)Ordered B y: Johana Landrum on 09-21-2024 Urine Urobilinogen Normal mg/dl Normal [facility] White blood cell countOrdere d By: Johana Landrum on 09-21-2024 Urine WBC 25-50 SEEN /hpf 0-5 [facility] High density lipoprotein (HD L) measurementOrdered By: Johana Landrum on 08-31-2024 Cholesterol in HDL [Mass/Vol] 46 mg/dL >40 [facility] Comment on above: The drugs N-Acetylcy steine and Metamizole may falsely depress this assay. Reference Range HDL <40 mg/dL Low HDL Cholesterol HDL >or= 60 mg/dL High HDL Cholesterol Lipid Profileon 08-31-2024 Cholesterol [Mass/Vol] 127 mg/dL Normal 200 [facility] Comment on above: Order Comment: Result Comment: <200 mg/dL Desirable 200-240 mg/dL Borderline >240 mg/dL High Risk Performed By: #### L 500.4100 ####[facility] [address] [place], [address] Cholesterol in HDL [Mass/Vol] 46 mg/dL Normal [facility] Comment on above: Order Comment: Result Comment: The drugs N-Acetylcysteine and Metamizole may falselydepress this assay. Reference Range HDL <40 mg/dL Low HDL Cholesterol HDL >or= 60 mg/dL High HDL Cholesterol Performed By: #### L 500.4100 ####[facility] [address] [place], [address] Cholesterol in LDL [Mass/Vol] 33 mg/dL Normal 0-130 [facility] Comment on above: Order Comment: Performed By: #### L 500.4100 ####[facility] [address] [place], [address] Cholesterol in VLDL [Mass/Vol] 48 mg/dL High 5-40 [facility] Comment on above: Order Comment: Performed By: #### L 500.4100 ####[facility] [address] [place], [address] Triglyceride [Mass/Vol] 241 mg/dL High [facility] Comment on above: Order Comment: Result Comment: The drugs N-Acetylcysteine and Metamizole may falselydepress this assay.Serum Triglycerides Reference Interval Normal <150 mg/dL Borderline high 150 - 199 mg/dL High 200 - 499 mg/dL Very High > or = 500 mg/dL Performed By: #### L 500.4100 ####[facility] [address] [place], [address] Low density lipoprotein (LDL ) cholesterol measurementOrdered By: Johana Landrum on 08-31-2024 Cholesterol in LDL [Mass/Vol] 33 mg/dL 0-130 [facility] Serum or plasma cholesterol measurement (mass/volume)Ordered By: Joahna Landrum on 08-31-2024 Cholesterol [Mass/Vol] 127 mg/dL <200 [facility] Comment on above: <200 mg/dL Desirable 200-240 mg/dL Borderline >240 mg/dL High Risk Triglycerides measurementOrd ered By: Johana Landrum on 08-31-2024 Triglyceride [Mass/Vol] 241 mg/dL High <199 [facility] Comment on above: The drugs N-Acetylcy steine and Metamizole may falsely depress this assay.Serum Triglycerides Reference Interval Normal <150 mg/dL Borderline high 150 - 199 mg/dL High 200 - 499 mg/dL Very High > or = 500 mg/dL Very low density lipoprotein (VLDL) cholesterol measurementOrdered By: Johana Landrum on 08-31-2024 VLDL Cholesterol 48 mg/dL High 5-40 [facility] Automated blood erythrocyte countOrdered By: [facility] on 08-27-2024 RBC (Bld) [#/Vol] 3.24 10*6/uL Low 4.2-5.4 [facility] Comment on above: Order Comment: 517.1 Performed By: #### L 500.2500, L100.0500 ####[facility] [address] [facility] [id number] Automated blood hematocrit ( percentage)Ordered By: [facility] on 08-27-2024 Hematocrit (Bld) [Volume fraction] 29.9 % Low 37-47 [facility] Comment on above: Order Comment: 517.1 Performed By: #### L 500.2500, L100.0500 ####[facility] [address] [place], [address] Basic Metabolic Profile (BMP )on 08-27-2024 BUN/CRE 17.9 RATIO Normal 10-20 [facility] Comment on above: Order Comment: 517.1 Performed By: #### L 500.2500, L100.0500 ####[facility] [address] [place], [address] CA,Total 8.9 mg/dL Normal 8.5-10.1 [facility] Comment on above: Order Comment: 517.1 Performed By: #### L 500.2500, L100.0500 ####[facility] [address] [place], [address] EST GFR - AA 17 mL/min Low >60 [facility] Comment on above: Order Comment: 517.1 Result Comment: Afri can Omani GFR Calc Performed By: #### L 500.2500, L100.0500 ####[facility] [address] [place], [address] GAP 10 Normal 5-15 [facility] Comment on above: Order Comment: 517.1 Performed By: #### L 500.2500, L100.0500 ####[facility] [address] [place], [address] GFR/1.73 sq M.predicted among non-blacks MDRD (S/P/Bld) [Vol rate/Area] 14 mL/min/{1.73_m2} Low >60 [facility] Comment on above: Order Comment: 517.1 Result Comment: Non- GFR Calc Performed By: #### L 500.2500, L100.0500 ####[facility] [address] [place], [address] Blood urea nitrogen (BUN)/cr eatinine ratioOrdered By: [facility] on 08-27-2024 Urea nitrogen/Creatinine [Mass ratio] 17.9 mg/mg 10-20 [facility] CBC-Complete Blood Cnt No Di ffon 08-27-2024 RDW SD 46.5 fl High 35.1-43.9 [facility] Comment on above: Order Comment: 517.1 Performed By: #### L 500.2500, L100.0500 ####[facility] [address] [place], [address] Carbon dioxide measurementOr dered By: [facility] on 08-27-2024 CO2 [Moles/Vol] 22.0 mmol/L Normal 21.0-32.0 [facility] Comment on above: Order Comment: 517.1 Performed By: #### L 500.2500, L100.0500 ####[facility] [address] [place], [address] Chloride measurementOrdered By: [facility] on 08-27-2024 Chloride [Moles/Vol] 106 mmol/L Normal 98-107 [facility] Comment on above: Order Comment: 517.1 Performed By: #### L 500.2500, L100.0500 ####[facility] [address] [place], [address] Erythrocyte distribution wid th (RBC) [Ratio]Ordered By: [facility] on 08-27-2024 Erythrocyte distribution width (RBC) [Entitic vol] 46.5 fL High 35.1-43.9 [facility] Erythrocyte distribution wid th ratioOrdered By: [facility] on 08-27-2024 Erythrocyte distribution width (RBC) [Ratio] 13.7 % Normal 11.6-14.6 [facility] Comment on above: Order Comment: 517.1 Performed By: #### L 500.2500, L100.0500 ####[facility] [address] [place], [address] Estimated glomerular filtrat ion rate (GFR) AmericanOrdered By: [facility] on 08-27-2024 Estimated GFR (MDRD) Amer 17 mL/min Low >60 [facility] Comment on above: GFR Calc Glomerular filtration rate ( GFR) estimationOrdered By: [facility] on 08-27-2024 Estimated GFR (MDRD) Non-Af Amer 14 mL/min Low >60 [facility] Comment on above: Non- GFR Calc Glucose measurementOrdered B y: [facility] on 08-27-2024 Glucose [Mass/Vol] 122 mg/dL High 74-106 [facility] Comment on above: Fasting Glucose resu lt from 100 to 125 mg/dL suggests IMPAIRED HOMEOSTASIS per A.D.A. criteria. Order Comment: 517.1 Result Comment: Fast ing Glucose result from 100 to 125 mg/dLsuggests IMPAIRED HOMEOSTASIS per A.D.A. criteria. Performed By: #### L 500.2500, L100.0500 ####[facility] [address] [place], [address] Hemoglobin measurementOrdere d By: [facility] on 08-27-2024 Hemoglobin (Bld) [Mass/Vol] 9.7 g/dL Low 12.0-15.0 [facility] Comment on above: Order Comment: 517.1 Performed By: #### L 500.2500, L100.0500 ####[facility] [address] [place], [address] MCV (mean corpuscular volume ) determinationOrdered By: [facility] on 08-27-2024 MCV (RBC) [Entitic vol] 92.3 fL Normal 81-99 [facility] Comment on above: Order Comment: 517.1 Performed By: #### L 500.2500, L100.0500 ####[facility] [address] [place], [address] Mean corpuscular hemoglobin (MCH) determinationOrdered By: [facility] on 08-27-2024 MCH (RBC) [Entitic mass] 29.9 pg Normal 27.0-32.0 [facility] Comment on above: Order Comment: 517.1 Performed By: #### L 500.2500, L100.0500 ####[facility] [address] [place], [address] Mean corpuscular hemoglobin concentration (MCHC) determinationOrdered By: [facility] on 08-27-2024 MCHC (RBC) [Mass/Vol] 32.4 g/dL Normal 32-36 [facility] Comment on above: Order Comment: 517.1 Performed By: #### L 500.2500, L100.0500 ####[facility] [address] [place], [address] Mean platelet volume determi nationOrdered By: [facility] on 08-27-2024 Platelet mean volume (Bld) [Entitic vol] 10.9 fL Normal 6.2-12.0 [facility] Comment on above: Order Comment: 517.1 Performed By: #### L 500.2500, L100.0500 ####[facility] [address] [place], [address] Platelet countOrdered By: [facility] on 08-27-2024 Platelets (Bld) [#/Vol] 292 10*3/uL Normal 150-450 [facility] Comment on above: Order Comment: 517.1 Performed By: #### L 500.2500, L100.0500 ####[facility] [address] [place], [address] Potassium measurementOrdered By: [facility] on 08-27-2024 Potassium [Moles/Vol] 3.5 mmol/L Normal 3.5-5.1 [facility] Comment on above: Order Comment: 517.1 Performed By: #### L 500.2500, L100.0500 ####[facility] [address] [place], [address] Protein+Creatinine Ratio,Uri neon 08-27-2024 PROT:CRE RATIO 3233 mg/g CRE High 0-200 [facility] Comment on above: Performed By: #### L 501.0900 ####[facility] [address] [place], [address] Protein (U) [Mass/Vol] 131.6 mg/dL High <11.9 [facility] Comment on above: Performed By: #### L 501.0900 ####[facility] [address] [place], [address] UR CREAT 40.70 mg/dL Normal NO RANGE EST. [facility] Comment on above: Performed By: #### L 501.0900 ####[facility] [address] [place], [address] Protein/Creatinine (U) [Mass ratio]Ordered By: [facility] on 08-27-2024 Urine Protein/Creatinine Ratio 3233 mg/g CRE High 0-200 [facility] Random urine protein measure mentOrdered By: [facility] on 08-27-2024 Protein (U) [Mass/Vol] 131.6 mg/dL High 0.0-11.8 [facility] Serum anion gap measurementO rdered By: [facility] on 08-27-2024 Anion gap [Moles/Vol] 10 mmol/L 5-15 [facility] Serum or plasma calcium yamil urement (mass/volume)Ordered By: [facility] on 08-27-2024 Calcium [Mass/Vol] 8.9 mg/dL 8.5-10.1 [facility] Serum or plasma creatinine m easurement (mass/volume)Ordered By: [facility] on 08-27-2024 Creatinine [Mass/Vol] 3.47 mg/dL High 0.55-1.02 [facility] Comment on above: The validity of the calculated GFR & GFRAA in patients over 70 years has not been determined. Clinical correlation is essential. Order Comment: 517.1 Result Comment: The validity of the calculated GFR GFRAA in patients over70 years has not been determined. Clinical correlation isessential. Performed By: #### L 500.2500, L100.0500 ####[facility] [address] [place], [address] Serum or plasma urea nitroge n measurement (mass/volume)Ordered By: [facility] on 08-27-2024 Urea nitrogen [Mass/Vol] 62 mg/dL High 7-18 [facility] Comment on above: Order Comment: 517.1 Performed By: #### L 500.2500, L100.0500 ####[facility] [address] [place], [address] Sodium levelOrdered By: Yevgeniy [facility] on 08-27-2024 Sodium [Moles/Vol] 139 mmol/L Normal 136-145 [facility] Comment on above: Order Comment: 517.1 Performed By: #### L 500.2500, L100.0500 ####[facility] [address] [place], [address] Urine creatinine measurement (mass/volume)Ordered By: [facility] on 08-27-2024 Creatinine (U) [Mass/Vol] 40.70 mg/dL NO RANGE EST. [facility] White blood cell (WBC) count Ordered By: [facility] on 08-27-2024 WBC (Bld) [#/Vol] 11.3 10*3/uL High 4.4-11.0 [facility] Comment on above: Order Comment: 517.1 Performed By: #### L 500.2500, L100.0500 ####[facility] [address] [place], [place], [address] Miscellaneous Lab Procedureo n 08-06-2024 [facility] Normal [facility] Comment on above: Order Comment: [id number]/ CYSTATIN C/ SERUM/ [id number]/ CYSTATIN C/ SERUM/ RT Result Comment: TEST RESULTS LIMITSCystatin C 3.85 High mg/L 0.78-1.15 TESTING PERFORMED AT [facility]. ORIGINAL REPORT ON FILE IN LAB CONTAINS ADDITIONAL TEST SITE INFORMATION. Performed By: #### L 801.1541 ####[facility] [address] [place], [address] 12 Lead EKGon 07-24-2024 12 Lead EKG Normal [facility] Basic Metabolic Profile (BMP )on 07-24-2024 BUN/CRE 19.3 RATIO Normal 10-20 [facility] Comment on above: Order Comment: 1Y Performed By: #### L 500.2500, L501.5425, L100.0100 ####[facility] [address] [place], [address] CA,Total 9.3 mg/dL Normal 8.5-10.1 [facility] Comment on above: Order Comment: 1Y Performed By: #### L 500.2500, L501.5425, L100.0100 ####[facility] [address] [place], [address] Chloride [Moles/Vol] 110 mmol/L High 98-107 [facility] Comment on above: Order Comment: 1Y Performed By: #### L 500.2500, L501.5425, L100.0100 ####[facility] [address] [place], [address] CO2 [Moles/Vol] 21.0 mmol/L Normal 21.0-32.0 [facility] Comment on above: Order Comment: 1Y Performed By: #### L 500.2500, L501.5425, L100.0100 ####[facility] [address] [place], [address] Creatinine [Mass/Vol] 3.58 mg/dL High 0.55-1.02 [facility] Comment on above: Order Comment: 1Y Result Comment: The validity of the calculated GFR GFRAA in patients over70 years has not been determined. Clinical correlation isessential. Performed By: #### L 500.2500, L501.5425, L100.0100 ####[facility] [address] [place], [address] ECRCL 13.16 ml/min Normal [facility] Comment on above: Order Comment: 1Y Performed By: #### L 500.2500, L501.5425, L100.0100 ####[facility] [address] [place], [address] EST GFR - AA 16 mL/min Low >60 [facility] Comment on above: Order Comment: 1Y Result Comment: Afri can Omani GFR Calc Performed By: #### L 500.2500, L501.5425, L100.0100 ####[facility] [address] [place], [address] GAP 9 Normal 5-15 [facility] Comment on above: Order Comment: 1Y Performed By: #### L 500.2500, L501.5425, L100.0100 ####[facility] [address] [place], [address] GFR/1.73 sq M.predicted among non-blacks MDRD (S/P/Bld) [Vol rate/Area] 13 mL/min/{1.73_m2} Low >60 [facility] Comment on above: Order Comment: 1Y Result Comment: Non- GFR Calc Performed By: #### L 500.2500, L501.5425, L100.0100 ####[facility] [address] [place], [address] Glucose [Mass/Vol] 103 mg/dL Normal 74-106 [facility] Comment on above: Order Comment: 1Y Result Comment: Fast ing Glucose result from 100 to 125 mg/dLsuggests IMPAIRED HOMEOSTASIS per A.D.A. criteria. Performed By: #### L 500.2500, L501.5425, L100.0100 ####[facility] [address] [place], [address] Potassium [Moles/Vol] 3.6 mmol/L Normal 3.5-5.1 [facility] Comment on above: Order Comment: 1Y Performed By: #### L 500.2500, L501.5425, L100.0100 ####[facility] [address] [place], [address] Sodium [Moles/Vol] 140 mmol/L Normal 136-145 [facility] Comment on above: Order Comment: 1Y Performed By: #### L 500.2500, L501.5425, L100.0100 ####[facility] [address] [place], [address] Urea nitrogen [Mass/Vol] 69 mg/dL High 7-18 [facility] Comment on above: Order Comment: 1Y Performed By: #### L 500.2500, L501.5425, L100.0100 ####[facility] [address] [place], [address] CBC W/Diff, Automatedon 11-2 -2023 Absolute Lymph 2.05 X10 3/uL Normal 0.83-4.51 [facility] Comment on above: Performed By: #### L 500.2500, L501.5425, L100.0100 ####[facility] [address] [place], [address] Absolute Neut 9.9 X10 3/uL High 2.0-7.7 [facility] Comment on above: Performed By: #### L 500.2500, L501.5425, L100.0100 ####[facility] [address] [place], [address] Basophils/100 WBC (Bld) 0.4 % Normal 0-1 [facility] Comment on above: Performed By: #### L 500.2500, L501.5425, L100.0100 ####[facility] [address] [place], [address] Eosinophils/100 WBC (Bld) 1.4 % Normal 0-5 [facility] Comment on above: Performed By: #### L 500.2500, L501.5425, L100.0100 ####[facility] [address] [place], [address] Erythrocyte distribution width (RBC) [Ratio] 14.1 % Normal 11.6-14.6 [facility] Comment on above: Performed By: #### L 500.2500, L501.5425, L100.0100 ####[facility] [address] [place], [address] Hematocrit (Bld) [Volume fraction] 32.3 % Low 37-47 [facility] Comment on above: Performed By: #### L 500.2500, L501.5425, L100.0100 ####[facility] [address] [place], [address] Hemoglobin (Bld) [Mass/Vol] 9.7 g/dL Low 12.0-15.0 [facility] Comment on above: Performed By: #### L 500.2500, L501.5425, L100.0100 ####[facility] [address] [place], [address] IG% 0.800 Normal 0.0-0.9 [facility] Comment on above: Result Comment: IG% - Immature Granulocytes (promyelocytes, myelocytes andmetamyelocytes) > 1% indicates that a LEFT SHIFT is Present. Performed By: #### L 500.2500, L501.5425, L100.0100 ####[facility] [address] [place], [address] Lymphocytes/100 WBC (Bld) 15.4 % Low 19-41 [facility] Comment on above: Performed By: #### L 500.2500, L501.5425, L100.0100 ####[facility] [address] [place], [address] MCH (RBC) [Entitic mass] 29.3 pg Normal 27.0-32.0 [facility] Comment on above: Performed By: #### L 500.2500, L501.5425, L100.0100 ####[facility] [address] [place], [address] MCHC (RBC) [Mass/Vol] 30.0 g/dL Low 32-36 [facility] Comment on above: Performed By: #### L 500.2500, L501.5425, L100.0100 ####[facility] [address] [place], [address] MCV (RBC) [Entitic vol] 97.6 fL Normal 81-99 [facility] Comment on above: Performed By: #### L 500.2500, L501.5425, L100.0100 ####[facility] [address] [place], [address] Monocytes/100 WBC (Bld) 7.7 % Normal 0-10 [facility] Comment on above: Performed By: #### L 500.2500, L501.5425, L100.0100 ####[facility] [address] [place], [address] Neutrophils/100 WBC (Bld) 74.3 % High 47-70 [facility] Comment on above: Performed By: #### L 500.2500, L501.5425, L100.0100 ####[facility] [address] [place], [address] Nucleated RBC (Bld) [#/Vol] 0 10*3/uL Normal 0-5 [facility] Comment on above: Performed By: #### L 500.2500, L501.5425, L100.0100 ####[facility] [address] [place], [address] Platelet mean volume (Bld) [Entitic vol] 11.1 fL Normal 6.2-12.0 [facility] Comment on above: Performed By: #### L 500.2500, L501.5425, L100.0100 ####[facility] [address] [place], [address] Platelets (Bld) [#/Vol] 250 10*3/uL Normal 150-450 [facility] Comment on above: Performed By: #### L 500.2500, L501.5425, L100.0100 ####[facility] [address] [place], [address] RBC (Bld) [#/Vol] 3.31 10*6/uL Low 4.2-5.4 [facility] Comment on above: Performed By: #### L 500.2500, L501.5425, L100.0100 ####[facility] [address] [place], [address] RDW SD 50.5 fl High 35.1-43.9 [facility] Comment on above: Performed By: #### L 500.2500, L501.5425, L100.0100 ####[facility] [address] [place], [address] WBC (Bld) [#/Vol] 13.3 10*3/uL High 4.4-11.0 [facility] Comment on above: Performed By: #### L 500.2500, L501.5425, L100.0100 ####[facility] [address] [place], [address] Chest PA and Lateralon 07-24 Chest PA and Lateral Normal [facility] Emergency Department Summary on 07-24-2024 Emergency Department Summary Normal [facility] L501.4020on 07-24-2024 TROPONIN-I HS 17 pg/mL Normal 3.0-54.0 [facility] Comment on above: Result Comment: Plea se Note: New Test Units and Gender Specific Reference Ranges. For more information see Policy Stat Procedure [place] High Sensitivity Troponin (TNIH) and attachments. Performed By: #### L 501.4020 ####[facility] [address] [place], [address] L501.5425on 07-24-2024 TROPONIN-I HS 15 pg/mL Normal 3.0-54.0 [facility] Comment on above: Order Comment: 1Y Result Comment: Merritt monk Note: New Test Units and Gender Specific Reference Ranges. For more information see Policy Stat Procedure [place] High Sensitivity Troponin (TNIH) and attachments. Performed By: #### L 500.2500, L501.5425, L100.0100 ####[facility] [address] [place], [address] Basic Metabolic Profile (BMP )on 07-23-2024 BUN Normal 7-18 [facility] Comment on above: Result Comment: Canc elled via OM: Order cancelled - Patient discharged Performed By: #### L 500.2500, L100.0100 ####[facility] [address] [place], [address] BUN/CRE Normal 10-20 [facility] Comment on above: Result Comment: Canc elled via OM: Order cancelled - Patient discharged Performed By: #### L 500.2500, L100.0100 ####[facility] [address] [place], [address] CA,Total Normal 8.5-10.1 [facility] Comment on above: Result Comment: Canc elled via OM: Order cancelled - Patient discharged Performed By: #### L 500.2500, L100.0100 ####[facility] [address] [place], [address] CL Normal 98-107 [facility] Comment on above: Result Comment: Canc elled via OM: Order cancelled - Patient discharged Performed By: #### L 500.2500, L100.0100 ####[facility] [address] [place], [address] CO2 Normal 21.0-32.0 [facility] Comment on above: Result Comment: Canc elled via OM: Order cancelled - Patient discharged Performed By: #### L 500.2500, L100.0100 ####[facility] [address] [place], [address] CREAT,SERUM Normal 0.55-1.02 [facility] Comment on above: Result Comment: Canc elled via OM: Order cancelled - Patient discharged Performed By: #### L 500.2500, L100.0100 ####[facility] [address] [place], [address] EST GFR Normal >60 [facility] Comment on above: Result Comment: Canc elled via OM: Order cancelled - Patient discharged Performed By: #### L 500.2500, L100.0100 ####[facility] [address] [place], [address] EST GFR - AA Normal >60 [facility] Comment on above: Result Comment: Canc elled via OM: Order cancelled - Patient discharged Performed By: #### L 500.2500, L100.0100 ####[facility] [address] [place], [address] GAP Normal 5-15 [facility] Comment on above: Result Comment: Canc elled via OM: Order cancelled - Patient discharged Performed By: #### L 500.2500, L100.0100 ####[facility] [address] [place], [address] GLU Normal 74-106 [facility] Comment on above: Result Comment: Canc elled via OM: Order cancelled - Patient discharged Performed By: #### L 500.2500, L100.0100 ####[facility] [address] [place], [address] Potassium Normal 3.5-5.1 [facility] Comment on above: Result Comment: Canc elled via OM: Order cancelled - Patient discharged Performed By: #### L 500.2500, L100.0100 ####[facility] [address] [place], [address] Basic Metabolic Profile (BMP) Normal 136-145 [facility] Comment on above: Result Comment: Canc elled via OM: Order cancelled - Patient discharged Performed By: #### L 500.2500, L100.0100 ####[facility] [address] [place], [address] CBC W/Diff, Automatedon 11-2 Absolute Neut Normal 2.0-7.7 [facility] Comment on above: Result Comment: Canc elled via OM: Order cancelled - Patient discharged Performed By: #### L 500.2500, L100.0100 ####[facility] [address] [place], [address] HCT Normal 37-47 [facility] Comment on above: Result Comment: Canc elled via OM: Order cancelled - Patient discharged Performed By: #### L 500.2500, L100.0100 ####[facility] [address] [place], [address] HGB Normal 12.0-15.0 [facility] Comment on above: Result Comment: Canc elled via OM: Order cancelled - Patient discharged Performed By: #### L 500.2500, L100.0100 ####[facility] [address] [place], [address] MCH Normal 27.0-32.0 [facility] Comment on above: Result Comment: Canc elled via OM: Order cancelled - Patient discharged Performed By: #### L 500.2500, L100.0100 ####[facility] [address] [place], [address] MCHC Normal 32-36 [facility] Comment on above: Result Comment: Canc elled via OM: Order cancelled - Patient discharged Performed By: #### L 500.2500, L100.0100 ####[facility] [address] [place], [address] MCV Normal 81-99 [facility] Comment on above: Result Comment: Canc elled via OM: Order cancelled - Patient discharged Performed By: #### L 500.2500, L100.0100 ####[facility] [address] [place], [address] NEUT% Normal 47-70 [facility] Comment on above: Result Comment: Canc elled via OM: Order cancelled - Patient discharged Performed By: #### L 500.2500, L100.0100 ####[facility] [address] [place], [address] PLT Normal 150-450 [facility] Comment on above: Result Comment: Canc elled via OM: Order cancelled - Patient discharged Performed By: #### L 500.2500, L100.0100 ####[facility] [address] [place], [address] RBC Normal 4.2-5.4 [facility] Comment on above: Result Comment: Canc elled via OM: Order cancelled - Patient discharged Performed By: #### L 500.2500, L100.0100 ####[facility] [address] [place], [address] RDW CV Normal 11.6-14.6 [facility] Comment on above: Result Comment: Canc elled via OM: Order cancelled - Patient discharged Performed By: #### L 500.2500, L100.0100 ####[facility] [address] [place], [address] RDW SD Normal 35.1-43.9 [facility] Comment on above: Result Comment: Canc elled via OM: Order cancelled - Patient discharged Performed By: #### L 500.2500, L100.0100 ####[facility] [address] [place], [address] WBC Normal 4.4-11.0 [facility] Comment on above: Result Comment: Canc elled via OM: Order cancelled - Patient discharged Performed By: #### L 500.2500, L100.0100 ####[facility] [address] [place], [address] CBC W/Diff, Automatedon 11-2 0-2024 Absolute Lymph 1.91 X10 3/uL Normal 0.83-4.51 [facility] Comment on above: Performed By: #### L 100.0100 ####[facility] [address] [place], [address] Absolute Neut 6.9 X10 3/uL Normal 2.0-7.7 [facility] Comment on above: Performed By: #### L 100.0100 ####[facility] [address] [place], [address] Basophils/100 WBC (Bld) 0.7 % Normal 0-1 [facility] Comment on above: Performed By: #### L 100.0100 ####[facility] [address] [place], [address] Eosinophils/100 WBC (Bld) 3.9 % Normal 0-5 [facility] Comment on above: Performed By: #### L 100.0100 ####[facility] [address] [place], [address] Erythrocyte distribution width (RBC) [Ratio] 14.4 % Normal 11.6-14.6 [facility] Comment on above: Performed By: #### L 100.0100 ####[facility] [address] [place], [address] Hematocrit (Bld) [Volume fraction] 30.3 % Low 37-47 [facility] Comment on above: Performed By: #### L 100.0100 ####[facility] [address] [place], [address] Hemoglobin (Bld) [Mass/Vol] 9.3 g/dL Low 12.0-15.0 [facility] Comment on above: Performed By: #### L 100.0100 ####[facility] [address] [place], [address] IG% 0.700 Normal 0.0-0.9 [facility] Comment on above: Result Comment: IG% - Immature Granulocytes (promyelocytes, myelocytes andmetamyelocytes) > 1% indicates that a LEFT SHIFT is Present. Performed By: #### L 100.0100 ####[facility] [address] [place], [address] Lymphocytes/100 WBC (Bld) 18.8 % Low 19-41 [facility] Comment on above: Performed By: #### L 100.0100 ####[facility] [address] [place], [address] MCH (RBC) [Entitic mass] 29.4 pg Normal 27.0-32.0 [facility] Comment on above: Performed By: #### L 100.0100 ####[facility] [address] [place], [address] MCHC (RBC) [Mass/Vol] 30.7 g/dL Low 32-36 [facility] Comment on above: Performed By: #### L 100.0100 ####[facility] [address] [place], [address] MCV (RBC) [Entitic vol] 95.9 fL Normal 81-99 [facility] Comment on above: Performed By: #### L 100.0100 ####[facility] [address] [place], [address] Monocytes/100 WBC (Bld) 7.9 % Normal 0-10 [facility] Comment on above: Performed By: #### L 100.0100 ####[facility] [address] [place], [address] Neutrophils/100 WBC (Bld) 68.0 % Normal 47-70 [facility] Comment on above: Performed By: #### L 100.0100 ####[facility] [address] [place], [address] Nucleated RBC (Bld) [#/Vol] 0 10*3/uL Normal 0-5 [facility] Comment on above: Performed By: #### L 100.0100 ####[facility] [address] [place], [address] Platelet mean volume (Bld) [Entitic vol] 10.7 fL Normal 6.2-12.0 [facility] Comment on above: Performed By: #### L 100.0100 ####[facility] [address] [place], [address] Platelets (Bld) [#/Vol] 260 10*3/uL Normal 150-450 [facility] Comment on above: Performed By: #### L 100.0100 ####[facility] [address] [place], [address] RBC (Bld) [#/Vol] 3.16 10*6/uL Low 4.2-5.4 [facility] Comment on above: Performed By: #### L 100.0100 ####[facility] [address] [place], [address] RDW SD 50.7 fl High 35.1-43.9 [facility] Comment on above: Performed By: #### L 100.0100 ####[facility] [address] [place], [address] WBC (Bld) [#/Vol] 10.2 10*3/uL Normal 4.4-11.0 [facility] Comment on above: Performed By: #### L 100.0100 ####[facility] [address] [place], [address] Cerebral Spinal Fluid Cultur mojgan 07-22-2024 CSFC No growth in 72 hours. Normal [facility] Comment on above: Performed By: #### L 350.1000, M100.2300, M100.2000, L501.1600, L200.0100, L501.0400 ####[facility] [address] [place], [address] Renal Profileon 07-22-2024 Albumin [Mass/Vol] 2.9 g/dL Low 3.2-5.0 [facility] Comment on above: Performed By: #### L 500.3600 ####[facility] [address] [place], [address] BUN/CRE 22.4 RATIO High 10-20 [facility] Comment on above: Performed By: #### L 500.3600 ####[facility] [address] [place], [address] CA,Total 8.6 mg/dL Normal 8.5-10.1 [facility] Comment on above: Performed By: #### L 500.3600 ####[facility] [address] [place], [address] Chloride [Moles/Vol] 114 mmol/L High 98-107 [facility] Comment on above: Performed By: #### L 500.3600 ####[facility] [address] [place], [address] CO2 [Moles/Vol] 19.0 mmol/L Low 21.0-32.0 [facility] Comment on above: Performed By: #### L 500.3600 ####[facility] [address] [place], [address] Creatinine [Mass/Vol] 3.84 mg/dL High 0.55-1.02 [facility] Comment on above: Result Comment: The validity of the calculated GFR GFRAA in patients over70 years has not been determined. Clinical correlation isessential. Performed By: #### L 500.3600 ####[facility] [address] [place], [address] ECRCL 12.18 ml/min Normal [facility] Comment on above: Performed By: #### L 500.3600 ####[facility] [address] [place], [address] EST GFR - AA 15 mL/min Low >60 [facility] Comment on above: Result Comment: Afri can [place] GFR Calc Performed By: #### L 500.3600 ####[facility] [address] [place], [address] GFR/1.73 sq M.predicted among non-blacks MDRD (S/P/Bld) [Vol rate/Area] 12 mL/min/{1.73_m2} Low >60 [facility] Comment on above: Result Comment: Non- GFR Calc Performed By: #### L 500.3600 ####[facility] [address] [place], [address] Glucose [Mass/Vol] 100 mg/dL Normal 74-106 [facility] Comment on above: Result Comment: Fast ing Glucose result from 100 to 125 mg/dLsuggests IMPAIRED HOMEOSTASIS per A.D.A. criteria. Performed By: #### L 500.3600 ####[facility] [address] [place], [address] Phosphate [Mass/Vol] 6.2 mg/dL High 2.5-4.9 [facility] Comment on above: Performed By: #### L 500.3600 ####[facility] [address] [place], [address] Potassium [Moles/Vol] 3.9 mmol/L Normal 3.5-5.1 [facility] Comment on above: Performed By: #### L 500.3600 ####[facility] [address] [place], [address] Sodium [Moles/Vol] 142 mmol/L Normal 136-145 [facility] Comment on above: Performed By: #### L 500.3600 ####[facility] [address] [place], [address] Urea nitrogen [Mass/Vol] 86 mg/dL High 03-19 [facility] Comment on above: Performed By: #### L 500.3600 ####[facility] [address] [place], [address] Spinal Fluid Cell Count+Diff on 07-22-2024 PATH REV May follow Normal [facility] Comment on above: Order Comment: Speci men Source? spinal fluid Result Comment: NO E VIDENCE OF MALIGNANCY.KATHLEEN KRAFT MD 07/22/2024 AMENDED REPORT 07/22/24 0830 PATH REV previously reported as: May follow Performed By: #### L 350.1000, M100.2300, M100.2000, L501.1600, L200.0100, L501.0400 ####[facility] [address] [place], [address] Consultation - Nephrologyon 07-21-2024 Consultation - Nephrology Normal [facility] Renal Profileon 07-21-2024 Albumin [Mass/Vol] 3.1 g/dL Low 3.2-5.0 [facility] Comment on above: Performed By: #### L 500.3600 ####[facility] [address] [place], [address] BUN/CRE 21.4 RATIO High 06-21 [facility] Comment on above: Performed By: #### L 500.3600 ####[facility] [address] [place], [address] CA,Total 8.7 mg/dL Normal 8.5-10.1 [facility] Comment on above: Performed By: #### L 500.3600 ####[facility] [address] [place], [address] Chloride [Moles/Vol] 110 mmol/L High 98-107 [facility] Comment on above: Performed By: #### L 500.3600 ####[facility] [address] [place], [address] CO2 [Moles/Vol] 17.0 mmol/L Low 21.0-32.0 [facility] Comment on above: Performed By: #### L 500.3600 ####[facility] [address] [place], [address] Creatinine [Mass/Vol] 4.21 mg/dL High 0.55-1.02 [facility] Comment on above: Result Comment: The validity of the calculated GFR GFRAA in patients over70 years has not been determined. Clinical correlation isessential. Performed By: #### L 500.3600 ####[facility] [address] [place], [address] ECRCL 11.11 ml/min Normal [facility] Comment on above: Performed By: #### L 500.3600 ####[facility] [address] [place], [address] EST GFR - AA 13 mL/min Low >60 [facility] Comment on above: Result Comment: Afri can [place] GFR Calc Performed By: #### L 500.3600 ####[facility] [address] [place], [address] GFR/1.73 sq M.predicted among non-blacks MDRD (S/P/Bld) [Vol rate/Area] 11 mL/min/{1.73_m2} Low >60 [facility] Comment on above: Result Comment: Non- GFR Calc Performed By: #### L 500.3600 ####[facility] [address] [place], [address] Glucose [Mass/Vol] 191 mg/dL High 74-106 [facility] Comment on above: Result Comment: Fast ing Glucose result greater than or equal to 126 mg/dLsuggests DIABETES MELLITUS per A.D.A. criteria. Performed By: #### L 500.3600 ####[facility] [address] [place], [address] Phosphate [Mass/Vol] 5.7 mg/dL High 2.5-4.9 [facility] Comment on above: Performed By: #### L 500.3600 ####[facility] [address] [place], [address] Potassium [Moles/Vol] 3.8 mmol/L Normal 3.5-5.1 [facility] Comment on above: Performed By: #### L 500.3600 ####[facility] [address] [place], [address] Sodium [Moles/Vol] 138 mmol/L Normal 136-145 [facility] Comment on above: Performed By: #### L 500.3600 ####[facility] [address] [place], [address] Urea nitrogen [Mass/Vol] 90 mg/dL High 7-18 [facility] Comment on above: Performed By: #### L 500.3600 ####[facility] [address] [place], [address] Comprehensive Metabolic Prof ilon 07-20-2024 Albumin [Mass/Vol] 2.9 g/dL Low 3.2-5.0 [facility] Comment on above: Performed By: #### L 500.4050 ####[facility] [address] [place], [address] Albumin/Globulin [Mass ratio] 1.0 {ratio} Normal 0.9-2.4 [facility] Comment on above: Performed By: #### L 500.4050 ####[facility] [address] [place], [address] ALK P 83 U/L Normal 45-117 [facility] Comment on above: Performed By: #### L 500.4050 ####[facility] [address] [place], [address] ALT [Catalytic activity/Vol] 15 U/L Normal 13-56 [facility] Comment on above: Performed By: #### L 500.4050 ####[facility] [address] [place], [address] AST [Catalytic activity/Vol] 7 U/L Low 15-37 [facility] Comment on above: Performed By: #### L 500.4050 ####[facility] [address] [place], [address] Bilirubin [Mass/Vol] 0.30 mg/dL Normal 0.20-1.00 [facility] Comment on above: Result Comment: For patients on eltrombopag therapy, use of Dimension [place] TBIL is not recommended. Performed By: #### L 500.4050 ####[facility] [address] [place], [address] BUN/CRE 19.2 RATIO Normal 10-20 [facility] Comment on above: Performed By: #### L 500.4050 ####[facility] [address] [place], [address] CA,Total 8.9 mg/dL Normal 8.5-10.1 [facility] Comment on above: Performed By: #### L 500.4050 ####[facility] [address] [place], [address] Chloride [Moles/Vol] 110 mmol/L High 98-107 [facility] Comment on above: Performed By: #### L 500.4050 ####[facility] [address] [place], [address] CO2 [Moles/Vol] 20.0 mmol/L Low 21.0-32.0 [facility] Comment on above: Performed By: #### L 500.4050 ####[facility] [address] [place], [address] Creatinine [Mass/Vol] 4.47 mg/dL High 0.55-1.02 [facility] Comment on above: Result Comment: The validity of the calculated GFR GFRAA in patients over70 years has not been determined. Clinical correlation isessential. Performed By: #### L 500.4050 ####[facility] [address] [place], [address] ECRCL 10.32 ml/min Normal [facility] Comment on above: Performed By: #### L 500.4050 ####[facility] [address] [place], [address] EST GFR - AA 13 mL/min Low >60 [facility] Comment on above: Result Comment: Afri can [place] GFR Calc Performed By: #### L 500.4050 ####[facility] [address] [place], [address] GAP 8 Normal 5-15 [facility] Comment on above: Performed By: #### L 500.4050 ####[facility] [address] [place], [address] GFR/1.73 sq M.predicted among non-blacks MDRD (S/P/Bld) [Vol rate/Area] 10 mL/min/{1.73_m2} Low >60 [facility] Comment on above: Result Comment: Non- GFR Calc Performed By: #### L 500.4050 ####[facility] [address] [place], [address] Globulin (S) [Mass/Vol] 3.0 g/dL Normal 2.2-4.2 [facility] Comment on above: Performed By: #### L 500.4050 ####[facility] [address] [place], [address] Glucose [Mass/Vol] 110 mg/dL High 74-106 [facility] Comment on above: Result Comment: Fast ing Glucose result from 100 to 125 mg/dLsuggests IMPAIRED HOMEOSTASIS per A.D.A. criteria. Performed By: #### L 500.4050 ####[facility] [address] [place], [address] Potassium [Moles/Vol] 4.0 mmol/L Normal 3.5-5.1 [facility] Comment on above: Performed By: #### L 500.4050 ####[facility] [address] [place], [address] Sodium [Moles/Vol] 139 mmol/L Normal 136-145 [facility] Comment on above: Performed By: #### L 500.4050 ####[facility] [address] [place], [address] T PROT 5.9 g/dL Low 6.4-8.2 [facility] Comment on above: Performed By: #### L 500.4050 ####[facility] [address] [place], [address] Urea nitrogen [Mass/Vol] 86 mg/dL High 7-18 [facility] Comment on above: Performed By: #### L 500.4050 ####[facility] [address] [place], [address] Cytology, Body Fluid / CSFon 07-20-2024 CYTOLOGY,BF/CSF SEE PATHOLOGY REPORT Normal [facility] Comment on above: Result Comment: Spec imen submitted to Anatomical Pathology Department fortesting. Performed By: #### L 350.1000, M100.2300, M100.2000, L501.1600, L200.0100, L501.0400 ####[facility] [address] [place], [address] Dx Lumbar Puncture w/IMG Kit maurizio 07-20-2024 Dx Lumbar Puncture w/IMG Guide Normal [facility] Glucose Spinal Fluidon 07-20 GLU SPINAL FLD 65 mg/dL Normal 40-75 [facility] Comment on above: Performed By: #### L 350.1000, M100.2300, M100.2000, L501.1600, L200.0100, L501.0400 ####[facility] [address] [place], [address] Gram Stainon 07-20-2024 GS Gram Stain No organisms seen 1+ Red Blood Cells 1+ White Blood Cells Normal [facility] Comment on above: Performed By: #### L 350.1000, M100.2300, M100.2000, L501.1600, L200.0100, L501.0400 ####[facility] [address] [place], [address] Protein Spinal Fluidon 07-20 PROTEIN CSF 42.0 mg/dL Normal 15.0-45.0 [facility] Comment on above: Performed By: #### L 350.1000, M100.2300, M100.2000, L501.1600, L200.0100, L501.0400 ####[facility] [address] [place], [address] Special Stain Group IIon Special Stain Group II Normal [facility] Comment on above: Performed By: #### P SSII ####[facility] [address] [place], [address] CBC W/Diff, Automatedon - Absolute Lymph 2.78 X10 3/uL Normal 0.83-4.51 [facility] Comment on above: Performed By: #### L 500.4050, L100.0100 ####[facility] [address] [place], [address] Absolute Neut 8.7 X10 3/uL High 2.0-7.7 [facility] Comment on above: Performed By: #### L 500.4050, L100.0100 ####[facility] [address] [place], [address] Basophils/100 WBC (Bld) 0.8 % Normal 0-1 [facility] Comment on above: Performed By: #### L 500.4050, L100.0100 ####[facility] [address] [place], [address] Eosinophils/100 WBC (Bld) 2.8 % Normal 0-5 [facility] Comment on above: Performed By: #### L 500.4050, L100.0100 ####[facility] [address] [place], [address] Erythrocyte distribution width (RBC) [Ratio] 14.4 % Normal 11.6-14.6 [facility] Comment on above: Performed By: #### L 500.4050, L100.0100 ####[facility] [address] [place], [address] Hematocrit (Bld) [Volume fraction] 31.9 % Low 37-47 [facility] Comment on above: Performed By: #### L 500.4050, L100.0100 ####[facility] [address] [place], [address] Hemoglobin (Bld) [Mass/Vol] 10.1 g/dL Low 12.0-15.0 [facility] Comment on above: Performed By: #### L 500.4050, L100.0100 ####[facility] [address] [place], [address] IG% 0.800 Normal 0.0-0.9 [facility] Comment on above: Result Comment: IG% - Immature Granulocytes (promyelocytes, myelocytes andmetamyelocytes) > 1% indicates that a LEFT SHIFT is Present. Performed By: #### L 500.4050, L100.0100 ####[facility] [address] [place], [address] Lymphocytes/100 WBC (Bld) 21.3 % Normal 19-41 [facility] Comment on above: Performed By: #### L 500.4050, L100.0100 ####[facility] [address] [place], [address] MCH (RBC) [Entitic mass] 30.1 pg Normal 27.0-32.0 [facility] Comment on above: Performed By: #### L 500.4050, L100.0100 ####[facility] [address] [place], [address] MCHC (RBC) [Mass/Vol] 31.7 g/dL Low 32-36 [facility] Comment on above: Performed By: #### L 500.4050, L100.0100 ####[facility] [address] [place], [address] MCV (RBC) [Entitic vol] 94.9 fL Normal 81-99 [facility] Comment on above: Performed By: #### L 500.4050, L100.0100 ####[facility] [address] [place], [address] Monocytes/100 WBC (Bld) 8.1 % Normal 0-10 [facility] Comment on above: Performed By: #### L 500.4050, L100.0100 ####[facility] [address] [place], [address] Neutrophils/100 WBC (Bld) 66.2 % Normal 47-70 [facility] Comment on above: Performed By: #### L 500.4050, L100.0100 ####[facility] [address] [place], [address] Nucleated RBC (Bld) [#/Vol] 0 10*3/uL Normal 0-5 [facility] Comment on above: Performed By: #### L 500.4050, L100.0100 ####[facility] [address] [place], [address] Platelet mean volume (Bld) [Entitic vol] 10.2 fL Normal 6.2-12.0 [facility] Comment on above: Performed By: #### L 500.4050, L100.0100 ####[facility] [address] [place], [address] Platelets (Bld) [#/Vol] 344 10*3/uL Normal 150-450 [facility] Comment on above: Performed By: #### L 500.4050, L100.0100 ####[facility] [address] [place], [address] RBC (Bld) [#/Vol] 3.36 10*6/uL Low 4.2-5.4 [facility] Comment on above: Performed By: #### L 500.4050, L100.0100 ####[facility] [address] [place], [address] RDW SD 50.1 fl High 35.1-43.9 [facility] Comment on above: Performed By: #### L 500.4050, L100.0100 ####[facility] [address] [place], [address] WBC (Bld) [#/Vol] 13.1 10*3/uL High 4.4-11.0 [facility] Comment on above: Performed By: #### L 500.4050, L100.0100 ####[facility] [address] [place], [address] Comprehensive Metabolic Prof ilon 07-19-2024 Albumin [Mass/Vol] 3.0 g/dL Low 3.2-5.0 [facility] Comment on above: Performed By: #### L 500.4050, L100.0100 ####[facility] [address] [place], [address] Albumin/Globulin [Mass ratio] 1.0 {ratio} Normal 0.9-2.4 [facility] Comment on above: Performed By: #### L 500.4050, L100.0100 ####[facility] [address] [place], [address] ALK P 87 U/L Normal 45-117 [facility] Comment on above: Performed By: #### L 500.4050, L100.0100 ####[facility] [address] [place], [address] ALT [Catalytic activity/Vol] 18 U/L Normal 13-56 [facility] Comment on above: Performed By: #### L 500.4050, L100.0100 ####[facility] [address] [place], [address] AST [Catalytic activity/Vol] 9 U/L Low 15-37 [facility] Comment on above: Performed By: #### L 500.4050, L100.0100 ####[facility] [address] [place], [address] Bilirubin [Mass/Vol] 0.30 mg/dL Normal 0.20-1.00 [facility] Comment on above: Result Comment: For patients on eltrombopag therapy, use of Dimension [place] TBIL is not recommended. Performed By: #### L 500.4050, L100.0100 ####[facility] [address] [place], [address] BUN/CRE 17.1 RATIO Normal 10-20 [facility] Comment on above: Performed By: #### L 500.4050, L100.0100 ####[facility] [address] [place], [address] CA,Total 9.1 mg/dL Normal 8.5-10.1 [facility] Comment on above: Performed By: #### L 500.4050, L100.0100 ####[facility] [address] [place], [address] Chloride [Moles/Vol] 110 mmol/L High 98-107 [facility] Comment on above: Performed By: #### L 500.4050, L100.0100 ####[facility] [address] [place], [address] CO2 [Moles/Vol] 21.0 mmol/L Normal 21.0-32.0 [facility] Comment on above: Performed By: #### L 500.4050, L100.0100 ####[facility] [address] [place], [address] Creatinine [Mass/Vol] 4.32 mg/dL High 0.55-1.02 [facility] Comment on above: Result Comment: The validity of the calculated GFR GFRAA in patients over70 years has not been determined. Clinical correlation isessential. Performed By: #### L 500.4050, L100.0100 ####[facility] [address] [place], [address] ECRCL 10.68 ml/min Normal [facility] Comment on above: Performed By: #### L 500.4050, L100.0100 ####[facility] [address] [place], [address] EST GFR - AA 13 mL/min Low >60 [facility] Comment on above: Result Comment: Afri can [place] GFR Calc Performed By: #### L 500.4050, L100.0100 ####[facility] [address] [place], [address] GAP 8 Normal 5-15 [facility] Comment on above: Performed By: #### L 500.4050, L100.0100 ####[facility] [address] [place], [address] GFR/1.73 sq M.predicted among non-blacks MDRD (S/P/Bld) [Vol rate/Area] 11 mL/min/{1.73_m2} Low >60 [facility] Comment on above: Result Comment: Non- GFR Calc Performed By: #### L 500.4050, L100.0100 ####[facility] [address] [place], [address] Globulin (S) [Mass/Vol] 2.9 g/dL Normal 2.2-4.2 [facility] Comment on above: Performed By: #### L 500.4050, L100.0100 ####[facility] [address] [place], [address] Glucose [Mass/Vol] 114 mg/dL High 74-106 [facility] Comment on above: Result Comment: Fast ing Glucose result from 100 to 125 mg/dLsuggests IMPAIRED HOMEOSTASIS per A.D.A. criteria. Performed By: #### L 500.4050, L100.0100 ####[facility] [address] [place], [address] Potassium [Moles/Vol] 3.8 mmol/L Normal 3.5-5.1 [facility] Comment on above: Performed By: #### L 500.4050, L100.0100 ####[facility] [address] [place], [address] Sodium [Moles/Vol] 139 mmol/L Normal 136-145 [facility] Comment on above: Performed By: #### L 500.4050, L100.0100 ####[facility] [address] [place], [address] T PROT 5.9 g/dL Low 6.4-8.2 [facility] Comment on above: Performed By: #### L 500.4050, L100.0100 ####[facility] [address] [place], [address] Urea nitrogen [Mass/Vol] 74 mg/dL High 7-18 [facility] Comment on above: Performed By: #### L 500.4050, L100.0100 ####[facility] [address] [place], [address] CBC W/Diff, Automatedon 07-03 Absolute Lymph 1.79 X10 3/uL Normal 0.83-4.51 [facility] Comment on above: Performed By: #### L 500.4100, L501.9985, L500.4050, L100.0100 ####[facility] [address] [place], [address] Absolute Neut 10.7 X10 3/uL High 2.0-7.7 [facility] Comment on above: Performed By: #### L 500.4100, L501.9985, L500.4050, L100.0100 ####[facility] [address] [place], [address] Basophils/100 WBC (Bld) 0.6 % Normal 0-1 [facility] Comment on above: Performed By: #### L 500.4100, L501.9985, L500.4050, L100.0100 ####[facility] [address] [place], [address] Eosinophils/100 WBC (Bld) 0.4 % Normal 0-5 [facility] Comment on above: Performed By: #### L 500.4100, L501.9985, L500.4050, L100.0100 ####[facility] [address] [place], [address] Erythrocyte distribution width (RBC) [Ratio] 14.4 % Normal 11.6-14.6 [facility] Comment on above: Performed By: #### L 500.4100, L501.9985, L500.4050, L100.0100 ####[facility] [address] [place], [address] Hematocrit (Bld) [Volume fraction] 37.9 % Normal 37-47 [facility] Comment on above: Performed By: #### L 500.4100, L501.9985, L500.4050, L100.0100 ####[facility] [address] [place], [address] Hemoglobin (Bld) [Mass/Vol] 11.9 g/dL Low 12.0-15.0 [facility] Comment on above: Performed By: #### L 500.4100, L501.9985, L500.4050, L100.0100 ####[facility] [address] [place], [address] IG% 0.700 Normal 0.0-0.9 [facility] Comment on above: Result Comment: IG% - Immature Granulocytes (promyelocytes, myelocytes andmetamyelocytes) > 1% indicates that a LEFT SHIFT is Present. Performed By: #### L 500.4100, L501.9985, L500.4050, L100.0100 ####[facility] [address] [place], [address] Lymphocytes/100 WBC (Bld) 12.9 % Low 19-41 [facility] Comment on above: Performed By: #### L 500.4100, L501.9985, L500.4050, L100.0100 ####[facility] [address] [place], [address] MCH (RBC) [Entitic mass] 29.8 pg Normal 27.0-32.0 [facility] Comment on above: Performed By: #### L 500.4100, L501.9985, L500.4050, L100.0100 ####[facility] [address] [place], [address] MCHC (RBC) [Mass/Vol] 31.4 g/dL Low 32-36 [facility] Comment on above: Performed By: #### L 500.4100, L501.9985, L500.4050, L100.0100 ####[facility] [address] [place], [address] MCV (RBC) [Entitic vol] 94.8 fL Normal 81-99 [facility] Comment on above: Performed By: #### L 500.4100, L501.9985, L500.4050, L100.0100 ####[facility] [address] [place], [address] Monocytes/100 WBC (Bld) 8.4 % Normal 0-10 [facility] Comment on above: Performed By: #### L 500.4100, L501.9985, L500.4050, L100.0100 ####[facility] [address] [place], [address] Neutrophils/100 WBC (Bld) 77.0 % High 47-70 [facility] Comment on above: Performed By: #### L 500.4100, L501.9985, L500.4050, L100.0100 ####[facility] [address] [place], [address] Nucleated RBC (Bld) [#/Vol] 0 10*3/uL Normal 0-5 [facility] Comment on above: Performed By: #### L 500.4100, L501.9985, L500.4050, L100.0100 ####[facility] [address] [place], [address] Platelet mean volume (Bld) [Entitic vol] 9.5 fL Normal 6.2-12.0 [facility] Comment on above: Performed By: #### L 500.4100, L501.9985, L500.4050, L100.0100 ####[facility] [address] [place], [address] Platelets (Bld) [#/Vol] 384 10*3/uL Normal 150-450 [facility] Comment on above: Performed By: #### L 500.4100, L501.9985, L500.4050, L100.0100 ####[facility] [address] [place], [address] RBC (Bld) [#/Vol] 4.00 10*6/uL Low 4.2-5.4 [facility] Comment on above: Performed By: #### L 500.4100, L501.9985, L500.4050, L100.0100 ####[facility] [address] [place], [address] RDW SD 50.0 fl High 35.1-43.9 [facility] Comment on above: Performed By: #### L 500.4100, L501.9985, L500.4050, L100.0100 ####[facility] [address] [place], [address] WBC (Bld) [#/Vol] 13.9 10*3/uL High 4.4-11.0 [facility] Comment on above: Performed By: #### L 500.4100, L501.9985, L500.4050, L100.0100 ####[facility] [address] [place], [address] Comprehensive Metabolic Prof ilon 07-17-2024 ALB Normal 3.2-5.0 [facility] Comment on above: Result Comment: MARISELA TAMEZ RN Performed By: #### L 500.4050 ####[facility] [address] [place], [address] ALK P Normal 45-117 [facility] Comment on above: Result Comment: MARISELA TAMEZ RN Performed By: #### L 500.4050 ####[facility] [address] [place], [address] ALT Normal 13-56 [facility] Comment on above: Result Comment: MARISELA TAMEZ RN Performed By: #### L 500.4050 ####[facility] [address] [place], [address] AST Normal 15-37 [facility] Comment on above: Result Comment: MARISELA TAMEZ RN Performed By: #### L 500.4050 ####[facility] [address] [place], [address] BUN Normal 7-18 [facility] Comment on above: Result Comment: MARISELA TAMEZ RN Performed By: #### L 500.4050 ####[facility] [address] [place], [address] BUN/CRE Normal 10-20 [facility] Comment on above: Result Comment: MARISELA TAMEZ RN Performed By: #### L 500.4050 ####[facility] [address] [place], [address] CA,Total Normal 8.5-10.1 [facility] Comment on above: Result Comment: MARISELA TAMEZ RN Performed By: #### L 500.4050 ####[facility] [address] [place], [address] CL Normal 98-107 [facility] Comment on above: Result Comment: MARISELA TAMEZ RN Performed By: #### L 500.4050 ####[facility] [address] [place], [address] CO2 Normal 21.0-32.0 [facility] Comment on above: Result Comment: MARISELA TAMEZ RN Performed By: #### L 500.4050 ####[facility] [address] [place], [address] CREAT,SERUM Normal 0.55-1.02 [facility] Comment on above: Result Comment: MARISELA TAMEZ RN Performed By: #### L 500.4050 ####[facility] [address] [place], [address] EST GFR Normal >60 [facility] Comment on above: Result Comment: MARISELA TAMEZ RN Performed By: #### L 500.4050 ####[facility] [address] [place], [address] EST GFR - AA Normal >60 [facility] Comment on above: Result Comment: MARISELA TAMEZ RN Performed By: #### L 500.4050 ####[facility] [address] [place], [address] GAP Normal 5-15 [facility] Comment on above: Result Comment: MARISELA TAMEZ RN Performed By: #### L 500.4050 ####[facility] [address] [place], [address] GLU Normal 74-106 [facility] Comment on above: Result Comment: MARISELA TAMEZ RN Performed By: #### L 500.4050 ####[facility] [address] [place], [address] Potassium Normal 3.5-5.1 [facility] Comment on above: Result Comment: MARISELA TAMEZ RN Performed By: #### L 500.4050 ####[facility] [address] [place], [address] T BILI Normal 0.20-1.00 [facility] Comment on above: Result Comment: MARISELA TAMEZ RN Performed By: #### L 500.4050 ####[facility] [address] [place], [address] T PROT Normal 6.4-8.2 [facility] Comment on above: Result Comment: MARISELA TAMEZ RN Performed By: #### L 500.4050 ####[facility] [address] [place], [address] Comprehensive Metabolic Profil Normal 136-145 [facility] Comment on above: Result Comment: MARISELA TAMEZ RN Performed By: #### L 500.4050 ####[facility] [address] [place], [address] Albumin [Mass/Vol] 3.9 g/dL Normal 3.2-5.0 [facility] Comment on above: Performed By: #### L 500.4100, L501.9985, L500.4050, L100.0100 ####[facility] [address] [place], [address] Albumin/Globulin [Mass ratio] 1.1 {ratio} Normal 0.9-2.4 [facility] Comment on above: Performed By: #### L 500.4100, L501.9985, L500.4050, L100.0100 ####[facility] [address] [place], [address] ALK P 123 U/L High 45-117 [facility] Comment on above: Performed By: #### L 500.4100, L501.9985, L500.4050, L100.0100 ####[facility] [address] [place], [address] ALT [Catalytic activity/Vol] 31 U/L Normal 13-56 [facility] Comment on above: Performed By: #### L 500.4100, L501.9985, L500.4050, L100.0100 ####[facility] [address] [place], [address] AST [Catalytic activity/Vol] 24 U/L Normal 15-37 [facility] Comment on above: Performed By: #### L 500.4100, L501.9985, L500.4050, L100.0100 ####[facility] [address] [place], [address] Bilirubin [Mass/Vol] 0.50 mg/dL Normal 0.20-1.00 [facility] Comment on above: Result Comment: For patients on eltrombopag therapy, use of Dimension [place] TBIL is not recommended. Performed By: #### L 500.4100, L501.9985, L500.4050, L100.0100 ####[facility] [address] [place], [address] BUN/CRE 11.4 RATIO Normal 10-20 [facility] Comment on above: Performed By: #### L 500.4100, L501.9985, L500.4050, L100.0100 ####[facility] [address] [place], [address] CA,Total 10.2 mg/dL High 8.5-10.1 [facility] Comment on above: Performed By: #### L 500.4100, L501.9985, L500.4050, L100.0100 ####[facility] [address] [place], [address] Chloride [Moles/Vol] 113 mmol/L High 98-107 [facility] Comment on above: Performed By: #### L 500.4100, L501.9985, L500.4050, L100.0100 ####[facility] [address] [place], [address] CO2 [Moles/Vol] 24.0 mmol/L Normal 21.0-32.0 [facility] Comment on above: Performed By: #### L 500.4100, L501.9985, L500.4050, L100.0100 ####[facility] [address] [place], [address] Creatinine [Mass/Vol] 3.08 mg/dL High 0.55-1.02 [facility] Comment on above: Result Comment: The validity of the calculated GFR GFRAA in patients over70 years has not been determined. Clinical correlation isessential. Performed By: #### L 500.4100, L501.9985, L500.4050, L100.0100 ####[facility] [address] [place], [address] ECRCL 14.87 ml/min Normal [facility] Comment on above: Performed By: #### L 500.4100, L501.9985, L500.4050, L100.0100 ####[facility] [address] [place], [address] EST GFR - AA 19 mL/min Low >60 [facility] Comment on above: Result Comment: Afri can [place]i GFR Calc Performed By: #### L 500.4100, L501.9985, L500.4050, L100.0100 ####[facility] [address] [place], [address] GAP 8 Normal 5-15 [facility] Comment on above: Performed By: #### L 500.4100, L501.9985, L500.4050, L100.0100 ####[facility] [address] [place], [address] GFR/1.73 sq M.predicted among non-blacks MDRD (S/P/Bld) [Vol rate/Area] 16 mL/min/{1.73_m2} Low >60 [facility] Comment on above: Result Comment: Non- GFR Calc Performed By: #### L 500.4100, L501.9985, L500.4050, L100.0100 ####[facility] [address] [place], [address] Globulin (S) [Mass/Vol] 3.7 g/dL Normal 2.2-4.2 [facility] Comment on above: Performed By: #### L 500.4100, L501.9985, L500.4050, L100.0100 ####[facility] [address] [place], [address] Glucose [Mass/Vol] 119 mg/dL High 74-106 [facility] Comment on above: Result Comment: Fast ing Glucose result from 100 to 125 mg/dLsuggests IMPAIRED HOMEOSTASIS per A.D.A. criteria. Performed By: #### L 500.4100, L501.9985, L500.4050, L100.0100 ####[facility] [address] [place], [address] Potassium [Moles/Vol] 3.6 mmol/L Normal 3.5-5.1 [facility] Comment on above: Performed By: #### L 500.4100, L501.9985, L500.4050, L100.0100 ####[facility] [address] [place], [address] Sodium [Moles/Vol] 145 mmol/L Normal 136-145 [facility] Comment on above: Performed By: #### L 500.4100, L501.9985, L500.4050, L100.0100 ####[facility] [address] [place], [address] T PROT 7.6 g/dL Normal 6.4-8.2 [facility] Comment on above: Performed By: #### L 500.4100, L501.9985, L500.4050, L100.0100 ####[facility] [address] [place], [address] Urea nitrogen [Mass/Vol] 35 mg/dL High 7-18 [facility] Comment on above: Performed By: #### L 500.4100, L501.9985, L500.4050, L100.0100 ####[facility] [address] [place], [address] Hemoglobin A1con 07-17-2024 HbA1c (Bld) [Mass fraction] 5.6 % Normal 3.8-5.6 [facility] Comment on above: Result Comment: Norm al < 5.7 % Prediabetic 5.7 - 6.4 % Diabetic >or= 6.5 % Please note range changes. Performed By: #### L 500.4100, L501.9985, L500.4050, L100.0100 ####[facility] [address] [place], [address] Lipid Profileon 07-17-2024 Cholesterol [Mass/Vol] 153 mg/dL Normal 200 [facility] Comment on above: Result Comment: <200 mg/dL Desirable 200-240 mg/dL Borderline >240 mg/dL High Risk Performed By: #### L 500.4100, L501.9985, L500.4050, L100.0100 ####[facility] [address] [place], [address] Cholesterol in HDL [Mass/Vol] 61 mg/dL Normal [facility] Comment on above: Result Comment: The drugs N-Acetylcysteine and Metamizole may falselydepress this assay. Reference Range HDL <40 mg/dL Low HDL Cholesterol HDL >or= 60 mg/dL High HDL Cholesterol Performed By: #### L 500.4100, L501.9985, L500.4050, L100.0100 ####[facility] [address] [place], [address] Cholesterol in LDL [Mass/Vol] 44 mg/dL Normal 0-130 [facility] Comment on above: Performed By: #### L 500.4100, L501.9985, L500.4050, L100.0100 ####[facility] [address] [place], [address] Cholesterol in VLDL [Mass/Vol] 48 mg/dL High 5-40 [facility] Comment on above: Performed By: #### L 500.4100, L501.9985, L500.4050, L100.0100 ####[facility] [address] [place], [address] Triglyceride [Mass/Vol] 242 mg/dL High [facility] Comment on above: Result Comment: The drugs N-Acetylcysteine and Metamizole may falselydepress this assay.Serum Triglycerides Reference Interval Normal <150 mg/dL Borderline high 150 - 199 mg/dL High 200 - 499 mg/dL Very High > or = 500 mg/dL Performed By: #### L 500.4100, L501.9985, L500.4050, L100.0100 ####[facility] [address] [place], [address] MR/CON.PCM.NEon 07-17-2024 MR/CON.PCM.NE Normal [facility] 12 Lead EKGon 07-16-2024 12 Lead EKG Normal [facility] Ammoniaon 07-16-2024 Ammonia (P) [Moles/Vol] 25.0 umol/L Normal 11-32 [facility] Comment on above: Performed By: #### L 503.5510, L300.4310, L300.3900, L100.0100, L500.2500, L500.3400 ####[facility] [address] [place], [address] Basic Metabolic Profile (BMP )on 07-16-2024 BUN/CRE 13.4 RATIO Normal 10-20 [facility] Comment on above: Performed By: #### L 503.5510, L300.4310, L300.3900, L100.0100, L500.2500, L500.3400 ####[facility] [address] [place], [address] CA,Total 9.6 mg/dL Normal 8.5-10.1 [facility] Comment on above: Performed By: #### L 503.5510, L300.4310, L300.3900, L100.0100, L500.2500, L500.3400 ####[facility] [address] [place], [address] Chloride [Moles/Vol] 114 mmol/L High 98-107 [facility] Comment on above: Performed By: #### L 503.5510, L300.4310, L300.3900, L100.0100, L500.2500, L500.3400 ####[facility] [address] [place], [address] CO2 [Moles/Vol] 23.0 mmol/L Normal 21.0-32.0 [facility] Comment on above: Performed By: #### L 503.5510, L300.4310, L300.3900, L100.0100, L500.2500, L500.3400 ####[facility] [address] [place], [address] Creatinine [Mass/Vol] 3.06 mg/dL High 0.55-1.02 [facility] Comment on above: Result Comment: The validity of the calculated GFR GFRAA in patients over70 years has not been determined. Clinical correlation isessential. Performed By: #### L 503.5510, L300.4310, L300.3900, L100.0100, L500.2500, L500.3400 ####[facility] [address] [place], [address] ECRCL 15.87 ml/min Normal [facility] Comment on above: Performed By: #### L 503.5510, L300.4310, L300.3900, L100.0100, L500.2500, L500.3400 ####[facility] [address] [place], [address] EST GFR - AA 19 mL/min Low >60 [facility] Comment on above: Result Comment: Afri can [place] GFR Calc Performed By: #### L 503.5510, L300.4310, L300.3900, L100.0100, L500.2500, L500.3400 ####[facility] [address] [place], [address] GAP 7 Normal 5-15 [facility] Comment on above: Performed By: #### L 503.5510, L300.4310, L300.3900, L100.0100, L500.2500, L500.3400 ####[facility] [address] [place], [address] GFR/1.73 sq M.predicted among non-blacks MDRD (S/P/Bld) [Vol rate/Area] 16 mL/min/{1.73_m2} Low >60 [facility] Comment on above: Result Comment: Non- GFR Calc Performed By: #### L 503.5510, L300.4310, L300.3900, L100.0100, L500.2500, L500.3400 ####[facility] [address] [place], [address] Glucose [Mass/Vol] 150 mg/dL High 74-106 [facility] Comment on above: Result Comment: Fast ing Glucose result greater than or equal to 126 mg/dLsuggests DIABETES MELLITUS per A.D.A. criteria. Performed By: #### L 503.5510, L300.4310, L300.3900, L100.0100, L500.2500, L500.3400 ####[facility] [address] [place], [address] Potassium [Moles/Vol] 3.2 mmol/L Low 3.5-5.1 [facility] Comment on above: Performed By: #### L 503.5510, L300.4310, L300.3900, L100.0100, L500.2500, L500.3400 ####[facility] [address] [place], [address] Sodium [Moles/Vol] 144 mmol/L Normal 136-145 [facility] Comment on above: Performed By: #### L 503.5510, L300.4310, L300.3900, L100.0100, L500.2500, L500.3400 ####[facility] [address] [place], [address] Urea nitrogen [Mass/Vol] 41 mg/dL High 7-18 [facility] Comment on above: Performed By: #### L 503.5510, L300.4310, L300.3900, L100.0100, L500.2500, L500.3400 ####[facility] [address] [place], [address] Brain without Contraston Brain without Contrast Normal [facility] Brain/Head without Contrasto n 07-16-2024 Brain/Head without Contrast Normal [facility] CBC W/Diff, Automatedon 07-03 Absolute Lymph 1.32 X10 3/uL Normal 0.83-4.51 [facility] Comment on above: Performed By: #### L 503.5510, L300.4310, L300.3900, L100.0100, L500.2500, L500.3400 ####[facility] [address] [place], [address] Absolute Neut 10.2 X10 3/uL High 2.0-7.7 [facility] Comment on above: Performed By: #### L 503.5510, L300.4310, L300.3900, L100.0100, L500.2500, L500.3400 ####[facility] [address] [place], [address] Basophils/100 WBC (Bld) 0.3 % Normal 0-1 [facility] Comment on above: Performed By: #### L 503.5510, L300.4310, L300.3900, L100.0100, L500.2500, L500.3400 ####[facility] [address] [place], [address] Eosinophils/100 WBC (Bld) 0.1 % Normal 0-5 [facility] Comment on above: Performed By: #### L 503.5510, L300.4310, L300.3900, L100.0100, L500.2500, L500.3400 ####[facility] [address] [place], [address] Erythrocyte distribution width (RBC) [Ratio] 14.2 % Normal 11.6-14.6 [facility] Comment on above: Performed By: #### L 503.5510, L300.4310, L300.3900, L100.0100, L500.2500, L500.3400 ####[facility] [address] [place], [address] Hematocrit (Bld) [Volume fraction] 32.0 % Low 37-47 [facility] Comment on above: Performed By: #### L 503.5510, L300.4310, L300.3900, L100.0100, L500.2500, L500.3400 ####[facility] [address] [place], [address] Hemoglobin (Bld) [Mass/Vol] 10.4 g/dL Low 12.0-15.0 [facility] Comment on above: Performed By: #### L 503.5510, L300.4310, L300.3900, L100.0100, L500.2500, L500.3400 ####[facility] [address] [place], [address] IG% 0.800 Normal 0.0-0.9 [facility] Comment on above: Result Comment: IG% - Immature Granulocytes (promyelocytes, myelocytes andmetamyelocytes) > 1% indicates that a LEFT SHIFT is Present. Performed By: #### L 503.5510, L300.4310, L300.3900, L100.0100, L500.2500, L500.3400 ####[facility] [address] [place], [address] Lymphocytes/100 WBC (Bld) 11.0 % Low 19-41 [facility] Comment on above: Performed By: #### L 503.5510, L300.4310, L300.3900, L100.0100, L500.2500, L500.3400 ####[facility] [address] [place], [address] MCH (RBC) [Entitic mass] 30.7 pg Normal 27.0-32.0 [facility] Comment on above: Performed By: #### L 503.5510, L300.4310, L300.3900, L100.0100, L500.2500, L500.3400 ####[facility] [address] [place], [address] MCHC (RBC) [Mass/Vol] 32.5 g/dL Normal 32-36 [facility] Comment on above: Performed By: #### L 503.5510, L300.4310, L300.3900, L100.0100, L500.2500, L500.3400 ####[facility] [address] [place], [address] MCV (RBC) [Entitic vol] 94.4 fL Normal 81-99 [facility] Comment on above: Performed By: #### L 503.5510, L300.4310, L300.3900, L100.0100, L500.2500, L500.3400 ####[facility] [address] [place], [address] Monocytes/100 WBC (Bld) 3.0 % Normal 0-10 [facility] Comment on above: Performed By: #### L 503.5510, L300.4310, L300.3900, L100.0100, L500.2500, L500.3400 ####[facility] [address] [place], [address] Neutrophils/100 WBC (Bld) 84.8 % High 47-70 [facility] Comment on above: Performed By: #### L 503.5510, L300.4310, L300.3900, L100.0100, L500.2500, L500.3400 ####[facility] [address] [place], [address] Nucleated RBC (Bld) [#/Vol] 0 10*3/uL Normal 0-5 [facility] Comment on above: Performed By: #### L 503.5510, L300.4310, L300.3900, L100.0100, L500.2500, L500.3400 ####[facility] [address] [place], [address] Platelet mean volume (Bld) [Entitic vol] 9.9 fL Normal 6.2-12.0 [facility] Comment on above: Performed By: #### L 503.5510, L300.4310, L300.3900, L100.0100, L500.2500, L500.3400 ####[facility] [address] [place], [address] Platelets (Bld) [#/Vol] 338 10*3/uL Normal 150-450 [facility] Comment on above: Performed By: #### L 503.5510, L300.4310, L300.3900, L100.0100, L500.2500, L500.3400 ####[facility] [facility] [address] [place], [address] RBC (Bld) [#/Vol] 3.39 10*6/uL Low 4.2-5.4 [facility] Comment on above: Performed By: #### L 503.5510, L300.4310, L300.3900, L100.0100, L500.2500, L500.3400 ####[facility] [address] [place], [address] RDW SD 48.1 fl High 35.1-43.9 [facility] Comment on above: Performed By: #### L 503.5510, L300.4310, L300.3900, L100.0100, L500.2500, L500.3400 ####[facility] [address] [place], [address] WBC (Bld) [#/Vol] 12.0 10*3/uL High 4.4-11.0 [facility] Comment on above: Performed By: #### L 503.5510, L300.4310, L300.3900, L100.0100, L500.2500, L500.3400 ####[facility] [address] [place], [address] Chest 1 View (Portable)on Chest 1 View (Portable) Normal [facility] Echo Completeon 07-16-2024 Echo Complete Normal [facility] Emergency Department Summary on 07-16-2024 Emergency Department Summary Normal [facility] H AND P Exam - Hospitaliston 07-16-2024 H&P Exam - Hospitalist Normal [facility] Liver Profileon 07-16-2024 Albumin [Mass/Vol] 3.8 g/dL Normal 3.2-5.0 [facility] Comment on above: Performed By: #### L 503.5510, L300.4310, L300.3900, L100.0100, L500.2500, L500.3400 ####[facility] [address] [place], [address] ALK P 114 U/L Normal 45-117 [facility] Comment on above: Performed By: #### L 503.5510, L300.4310, L300.3900, L100.0100, L500.2500, L500.3400 ####[facility] [address] [place], [address] ALT [Catalytic activity/Vol] 34 U/L Normal 13-56 [facility] Comment on above: Performed By: #### L 503.5510, L300.4310, L300.3900, L100.0100, L500.2500, L500.3400 ####[facility] [address] [place], [address] AST [Catalytic activity/Vol] 19 U/L Normal 15-37 [facility] Comment on above: Performed By: #### L 503.5510, L300.4310, L300.3900, L100.0100, L500.2500, L500.3400 ####[facility] [address] [place], [address] Bilirubin [Mass/Vol] 0.40 mg/dL Normal 0.20-1.00 [facility] Comment on above: Result Comment: For patients on eltrombopag therapy, use of Dimension [place] TBIL is not recommended. Performed By: #### L 503.5510, L300.4310, L300.3900, L100.0100, L500.2500, L500.3400 ####[facility] [address] [place], [address] Bilirubin.direct [Mass/Vol] 0.13 mg/dL Normal 0.00-0.30 [facility] Comment on above: Performed By: #### L 503.5510, L300.4310, L300.3900, L100.0100, L500.2500, L500.3400 ####[facility] [address] [place], [address] Globulin (S) [Mass/Vol] 3.5 g/dL Normal 2.2-4.2 [facility] Comment on above: Performed By: #### L 503.5510, L300.4310, L300.3900, L100.0100, L500.2500, L500.3400 ####[facility] [address] [place], [address] T PROT 7.3 g/dL Normal 6.4-8.2 [facility] Comment on above: Performed By: #### L 503.5510, L300.4310, L300.3900, L100.0100, L500.2500, L500.3400 ####[facility] [address] [place], [address] M100.678on 07-16-2024 M100.678 Pending SARS-CoV-2 (COVID 19) Negative INFLUENZA A Negative INFLUENZA B Negative RSV PCR Negative Normal [facility] Comment on above: Performed By: #### M 100.678 ####[facility] [address] [place], [address] Magnesiumon 07-16-2024 Magnesium [Mass/Vol] 1.9 mg/dL Normal 1.6-2.6 [facility] Comment on above: Order Comment: Comme nts: may add to ED labs Performed By: #### L 501.5204 ####[facility] [address] [place], [address] Partial Thromboplast Timeon 07-16-2024 aPTT Coag (Bld) [Time] 33.1 s Normal 24.1-36.2 [facility] Comment on above: Performed By: #### L 503.5510, L300.4310, L300.3900, L100.0100, L500.2500, L500.3400 ####[facility] [address], [address] Pelvis 1 or 2 Viewson 2023 Pelvis 1 or 2 Views Normal [facility] Prothrombin Time w/INRon INR Coag (PPP) [Relative time] 1.2 {INR} Normal [facility] Comment on above: Performed By: #### L 503.5510, L300.4310, L300.3900, L100.0100, L500.2500, L500.3400 ####[facility] [address], [address] PT Coag (PPP) [Time] 15.6 s High 11.7-14.9 [facility] Comment on above: Performed By: #### L 503.5510, L300.4310, L300.3900, L100.0100, L500.2500, L500.3400 ####[facility] [address], [address] Spine Cervical without Contr ason 07-16-2024 Spine Cervical without Contras Normal [facility] Thyroid Stim Hormone (TSH)on 07-16-2024 TSH 1.330 uIU/mL Normal 0.358-3.740 [facility] Comment on above: Performed By: #### L 501.9562 ####[facility] [address] [place], [address] Urinalysis, Completeon 07-16 BACTERIA 0 SEEN Normal None Seen [facility] Comment on above: Order Comment: BLADD ER TAP Performed By: #### L 400.0001 ####[facility] [address] [place], [address] EPI,SQUAMOUS 0 SEEN Normal 5-10 [facility] Comment on above: Order Comment: BLADD ER TAP Performed By: #### L 400.0001 ####[facility] [address] [place], [address] Mucus Ql (Urine sed) 0 SEEN Normal [facility] Comment on above: Order Comment: BLADD ER TAP Performed By: #### L 400.0001 ####[facility] [address] [place], [address] RBC 0 SEEN Normal 0-5 [facility] Comment on above: Order Comment: BLADD ER TAP Performed By: #### L 400.0001 ####[facility] [address] [place], [address] WBC 0 SEEN Normal 0-5 [facility] Comment on above: Order Comment: BLADD ER TAP Performed By: #### L 400.0001 ####[facility] [address] [place], [address] Urine Drug Screen (VISTA)on 07-16-2024 AMPHETAMINES Negative Normal <1000 ng/mL [facility] Comment on above: Performed By: #### L 505.5000 ####[facility] [address] [place], [address] BARBITIURATES Negative Normal < 200 ng/mL [facility] Comment on above: Performed By: #### L 505.5000 ####[facility] [address] [place], [address] BENZODIAZIPINE Negative Normal < 200 ng/mL [facility] Comment on above: Performed By: #### L 505.5000 ####[facility] [address] [place], [address] COCAINE Negative Normal < 300 ng/mL [facility] Comment on above: Performed By: #### L 505.5000 ####[facility] [address] [place], [address] ECSTACY Negative Normal < 500 ng/mL [facility] Comment on above: Performed By: #### L 505.5000 ####[facility] [address] [place], [address] METHADONE Negative Normal < 300 ng/mL [facility] Comment on above: Performed By: #### L 505.5000 ####[facility] [address] [place], [address] OPIATES Negative Normal < 300 ng/mL [facility] Comment on above: Performed By: #### L 505.5000 ####[facility] [address] [place], [address] PCP Negative Normal < 25 ng/mL [facility] Comment on above: Performed By: #### L 505.5000 ####[facility] [address] [place], [address] THC Negative Normal < 50 ng/mL [facility] Comment on above: Performed By: #### L 505.5000 ####[facility] [address] [place], [address] VISTA UDS PH 6 Normal [facility] Comment on above: Performed By: #### L 505.5000 ####[facility] [address] [place], [address] Venous Blood Gason 4 Blood Gas Type ARELI Normal [facility] Comment on above: Performed By: #### L 9000.0810 ####[facility] [address] [place], [address] CO2 [Moles/Vol] 20 mmol/L Low 23-33 [facility] Comment on above: Performed By: #### L 9000.0810 ####[facility] [address] [place], [address] HCO3 (Bld) [Moles/Vol] 20 mmol/L Low 22-26 [facility] Comment on above: Performed By: #### L 9000.0810 ####[facility] [address] [place], [address] O2 Delivery Dev Not entered Normal [facility] Comment on above: Performed By: #### L 9000.0810 ####[facility] [address] [place], [address] SITE Not entered Normal [facility] Comment on above: Performed By: #### L 9000.0810 ####[facility] [address] [place], [address] VBG BE -5 mmol/L Low -1.0-3.5 [facility] Comment on above: Performed By: #### L 9000.0810 ####[facility] [address] [place], [address] VBG pCO2 30.5 mmHg Low 41-51 [facility] Comment on above: Performed By: #### L 9000.0810 ####[facility] [address] [place], [address] VBG pH 7.41 Normal 7.32-7.42 [facility] Comment on above: Performed By: #### L 9000.0810 ####[facility] [address] [place], [address] VBG PO2 99 mmHg High 25-40 [facility] Comment on above: Performed By: #### L 9000.0810 ####[facility] [address] [place], [address] VBG SO2 98 High 50-70 [facility] Comment on above: Performed By: #### L 9000.0810 ####[facility] [address] [place], [address] Basic Metabolic Profile (BMP )on 06-26-2024 BUN/CRE 14.8 RATIO Normal 10-20 [facility] Comment on above: Order Comment: 516.1 Performed By: #### L 500.2500, L100.0500 ####[facility] [address] [place], [address] CA,Total 9.2 mg/dL Normal 8.5-10.1 [facility] Comment on above: Order Comment: 516.1 Performed By: #### L 500.2500, L100.0500 ####[facility] [address] [place], [address] Chloride [Moles/Vol] 109 mmol/L High 98-107 [facility] Comment on above: Order Comment: 516.1 Performed By: #### L 500.2500, L100.0500 ####[facility] [address] [place], [address] CO2 [Moles/Vol] 24.0 mmol/L Normal 21.0-32.0 [facility] Comment on above: Order Comment: 516.1 Performed By: #### L 500.2500, L100.0500 ####[facility] [address] [place], [address] Creatinine [Mass/Vol] 3.45 mg/dL High 0.55-1.02 [facility] Comment on above: Order Comment: 516.1 Result Comment: The validity of the calculated GFR GFRAA in patients over70 years has not been determined. Clinical correlation isessential. Performed By: #### L 500.2500, L100.0500 ####[facility] [address] [place], [address] EST GFR - AA 17 mL/min Low >60 [facility] Comment on above: Order Comment: 516.1 Result Comment: Afri can [place] GFR Calc Performed By: #### L 500.2500, L100.0500 ####[facility] [address] [place], [address] GAP 7 Normal 5-15 [facility] Comment on above: Order Comment: 516.1 Performed By: #### L 500.2500, L100.0500 ####[facility] [address] [place], [address] GFR/1.73 sq M.predicted among non-blacks MDRD (S/P/Bld) [Vol rate/Area] 14 mL/min/{1.73_m2} Low >60 [facility] Comment on above: Order Comment: 516.1 Result Comment: Non- GFR Calc Performed By: #### L 500.2500, L100.0500 ####[facility] [address] [place], [address] Glucose [Mass/Vol] 101 mg/dL Normal 74-106 [facility] Comment on above: Order Comment: 516.1 Result Comment: Fast ing Glucose result from 100 to 125 mg/dLsuggests IMPAIRED HOMEOSTASIS per A.D.A. criteria. Performed By: #### L 500.2500, L100.0500 ####[facility] [address] [place], [address] Potassium [Moles/Vol] 4.3 mmol/L Normal 3.5-5.1 [facility] Comment on above: Order Comment: 516.1 Performed By: #### L 500.2500, L100.0500 ####[facility] [address] [place], [address] Sodium [Moles/Vol] 140 mmol/L Normal 136-145 [facility] Comment on above: Order Comment: 516.1 Performed By: #### L 500.2500, L100.0500 ####[facility] [address] [place], [address] Urea nitrogen [Mass/Vol] 51 mg/dL High 7-18 [facility] Comment on above: Order Comment: 516.1 Performed By: #### L 500.2500, L100.0500 ####[facility] [address] [place], [address] CBC-Complete Blood Cnt No Di ffon 06-26-2024 Erythrocyte distribution width (RBC) [Ratio] 15.8 % High 11.6-14.6 [facility] Comment on above: Order Comment: 516.1 Performed By: #### L 500.2500, L100.0500 ####[facility] [address] [place], [address] Hematocrit (Bld) [Volume fraction] 27.9 % Low 37-47 [facility] Comment on above: Order Comment: 516.1 Performed By: #### L 500.2500, L100.0500 ####[facility] [address] [place], [address] Hemoglobin (Bld) [Mass/Vol] 8.5 g/dL Low 12.0-15.0 [facility] Comment on above: Order Comment: 516.1 Performed By: #### L 500.2500, L100.0500 ####[facility] [address] [place], [address] MCH (RBC) [Entitic mass] 29.6 pg Normal 27.0-32.0 [facility] Comment on above: Order Comment: 516.1 Performed By: #### L 500.2500, L100.0500 ####[facility] [address] [place], [address] MCHC (RBC) [Mass/Vol] 30.5 g/dL Low 32-36 [facility] Comment on above: Order Comment: 516.1 Performed By: #### L 500.2500, L100.0500 ####[facility] [address] [place], [address] MCV (RBC) [Entitic vol] 97.2 fL Normal 81-99 [facility] Comment on above: Order Comment: 516.1 Performed By: #### L 500.2500, L100.0500 ####[facility] [address] [place], [address] Platelet mean volume (Bld) [Entitic vol] 10.5 fL Normal 6.2-12.0 [facility] Comment on above: Order Comment: 516.1 Performed By: #### L 500.2500, L100.0500 ####[facility] [address] [place], [address] Platelets (Bld) [#/Vol] 297 10*3/uL Normal 150-450 [facility] Comment on above: Order Comment: 516.1 Performed By: #### L 500.2500, L100.0500 ####[facility] [address] [place], [address] RBC (Bld) [#/Vol] 2.87 10*6/uL Low 4.2-5.4 [facility] Comment on above: Order Comment: 516.1 Performed By: #### L 500.2500, L100.0500 ####[facility] [address] [place], [address] RDW SD 56.2 fl High 35.1-43.9 [facility] Comment on above: Order Comment: 516.1 Performed By: #### L 500.2500, L100.0500 ####[facility] [address] [place], [address] WBC (Bld) [#/Vol] 9.1 10*3/uL Normal 4.4-11.0 [facility] Comment on above: Order Comment: 516.1 Performed By: #### L 500.2500, L100.0500 ####[facility] [address] [place], [address] Urine Cultureon 06-21-2024 URC Normal [facility] Comment on above: Performed By: #### L 400.0001, M100.2200 ####[facility] [address] [place], [address] Basic Metabolic Profile (BMP )on 06-18-2024 BUN/CRE 10.3 RATIO Normal 06-21 [facility] Comment on above: Performed By: #### L 100.0100, L500.2500 ####[facility] [address] [place], [address] CA,Total 10.0 mg/dL Normal 8.5-10.1 [facility] Comment on above: Performed By: #### L 100.0100, L500.2500 ####[facility] [address] [place], [address] Chloride [Moles/Vol] 96 mmol/L Low 98-107 [facility] Comment on above: Performed By: #### L 100.0100, L500.2500 ####[facility] [address] [place], [address] CO2 [Moles/Vol] 29.0 mmol/L Normal 21.0-32.0 [facility] Comment on above: Performed By: #### L 100.0100, L500.2500 ####[facility] [address] [place], [address] Creatinine [Mass/Vol] 3.99 mg/dL High 0.55-1.02 [facility] Comment on above: Result Comment: The validity of the calculated GFR GFRAA in patients over70 years has not been determined. Clinical correlation isessential. Performed By: #### L 100.0100, L500.2500 ####[facility] [address] [place], [address] ECRCL 12.06 ml/min Normal [facility] Comment on above: Performed By: #### L 100.0100, L500.2500 ####[facility] [address] [place], [address] EST GFR - AA 14 mL/min Low >60 [facility] Comment on above: Result Comment: Afri can [place] GFR Calc Performed By: #### L 100.0100, L500.2500 ####[facility] [address] [place], [address] GAP 8 Normal 5-15 [facility] Comment on above: Performed By: #### L 100.0100, L500.2500 ####[facility] [address] [place], [address] GFR/1.73 sq M.predicted among non-blacks MDRD (S/P/Bld) [Vol rate/Area] 12 mL/min/{1.73_m2} Low >60 [facility] Comment on above: Result Comment: Non- GFR Calc Performed By: #### L 100.0100, L500.2500 ####[facility] [address] [place], [address] Glucose [Mass/Vol] 138 mg/dL High 74-106 [facility] Comment on above: Result Comment: Fast ing Glucose result greater than or equal to 126 mg/dLsuggests DIABETES MELLITUS per A.D.A. criteria. Performed By: #### L 100.0100, L500.2500 ####[facility] [address] [place], [address] Potassium [Moles/Vol] 4.4 mmol/L Normal 3.5-5.1 [facility] Comment on above: Result Comment: Mode rate Hemolysis, Result may be falsely increased. Performed By: #### L 100.0100, L500.2500 ####[facility] [address] [place], [address] Sodium [Moles/Vol] 134 mmol/L Low 136-145 [facility] Comment on above: Performed By: #### L 100.0100, L500.2500 ####[facility] [address] [place], [address] Urea nitrogen [Mass/Vol] 41 mg/dL High 7-18 [facility] Comment on above: Performed By: #### L 100.0100, L500.2500 ####[facility] [address] [place], [address] Brain/Head without Contrasto n 06-18-2023 Brain/Head without Contrast Normal [facility] CBC W/Diff, Automatedon 10-09 08-2023 Nucleated RBC (Bld) [#/Vol] 0 10*3/uL Normal 0-5 [facility] Comment on above: Performed By: #### L 100.0100, L500.2500 ####[facility] [address] [place], [address] Absolute Lymph 2.09 X10 3/uL Normal 0.83-4.51 [facility] Comment on above: Performed By: #### L 100.0100, L500.2500 ####[facility] [address] [place], [address] Absolute Neut 12.1 X10 3/uL High 2.0-7.7 [facility] Comment on above: Performed By: #### L 100.0100, L500.2500 ####[facility] [address] [place], [address] Basophils/100 WBC (Bld) 0.4 % Normal 0-1 [facility] Comment on above: Performed By: #### L 100.0100, L500.2500 ####[facility] [address] [place], [address] Eosinophils/100 WBC (Bld) 0.7 % Normal 0-5 [facility] Comment on above: Performed By: #### L 100.0100, L500.2500 ####[facility] [address] [place], [address] Erythrocyte distribution width (RBC) [Ratio] 15.9 % High 11.6-14.6 [facility] Comment on above: Performed By: #### L 100.0100, L500.2500 ####[facility] [address] [place], [address] Hematocrit (Bld) [Volume fraction] 31.8 % Low 37-47 [facility] Comment on above: Performed By: #### L 100.0100, L500.2500 ####[facility] [address] [place], [address] Hemoglobin (Bld) [Mass/Vol] 10.5 g/dL Low 12.0-15.0 [facility] Comment on above: Performed By: #### L 100.0100, L500.2500 ####[facility] [address] [place], [address] IG% 1.400 High 0.0-0.9 [facility] Comment on above: Result Comment: IG% - Immature Granulocytes (promyelocytes, myelocytes andmetamyelocytes) > 1% indicates that a LEFT SHIFT is Present. Performed By: #### L 100.0100, L500.2500 ####[facility] [address] [place], [address] Lymphocytes/100 WBC (Bld) 13.2 % Low 19-41 [facility] Comment on above: Performed By: #### L 100.0100, L500.2500 ####[facility] [address] [place], [address] MCH (RBC) [Entitic mass] 30.5 pg Normal 27.0-32.0 [facility] Comment on above: Performed By: #### L 100.0100, L500.2500 ####[facility] [address] [place], [address] MCHC (RBC) [Mass/Vol] 33.0 g/dL Normal 32-36 [facility] Comment on above: Performed By: #### L 100.0100, L500.2500 ####[facility] [address] [place], [address] MCV (RBC) [Entitic vol] 92.4 fL Normal 81-99 [facility] Comment on above: Performed By: #### L 100.0100, L500.2500 ####[facility] [address] [place], [address] Monocytes/100 WBC (Bld) 7.9 % Normal 0-10 [facility] Comment on above: Performed By: #### L 100.0100, L500.2500 ####[facility] [address] [place], [address] Neutrophils/100 WBC (Bld) 76.4 % High 47-70 [facility] Comment on above: Performed By: #### L 100.0100, L500.2500 ####[facility] [address] [place], [address] Platelet mean volume (Bld) [Entitic vol] 10.2 fL Normal 6.2-12.0 [facility] Comment on above: Performed By: #### L 100.0100, L500.2500 ####[facility] [address] [place], [address] Platelets (Bld) [#/Vol] 357 10*3/uL Normal 150-450 [facility] Comment on above: Performed By: #### L 100.0100, L500.2500 ####[facility] [address] [place], [address] RBC (Bld) [#/Vol] 3.44 10*6/uL Low 4.2-5.4 [facility] Comment on above: Performed By: #### L 100.0100, L500.2500 ####[facility] [address] [place], [address] RDW SD 51.6 fl High 35.1-43.9 [facility] Comment on above: Performed By: #### L 100.0100, L500.2500 ####[facility] [address] [place], [address] WBC (Bld) [#/Vol] 15.9 10*3/uL High 4.4-11.0 [facility] Comment on above: Performed By: #### L 100.0100, L500.2500 ####[facility] [address] [place], [address] Chest 1 View (Portable)on Chest 1 View (Portable) Normal [facility] Emergency Department Summary on 06-18-2024 Emergency Department Summary Normal [facility] Partial Thromboplast Timeon 06-18-2024 aPTT Coag (Bld) [Time] 34.6 s Normal 24.1-36.2 [facility] Comment on above: Performed By: #### L 300.4310, L300.3900 ####[facility] [address] [place], [address] Pelvis 1 or 2 Viewson 2023 Pelvis 1 or 2 Views Normal [facility] Prothrombin Time w/INRon INR Coag (PPP) [Relative time] 1.7 {INR} Normal [facility] Comment on above: Performed By: #### L 300.4310, L300.3900 ####[facility] [address] [place], [address] PT Coag (PPP) [Time] 19.5 s High 11.7-14.9 [facility] Comment on above: Performed By: #### L 300.4310, L300.3900 ####[facility] [address] [place], [address] Spine Cervical without Contr ason 06-18-2024 Spine Cervical without Contras Normal [facility] Urinalysis, Completeon 06-18 WBC >100 SEEN Normal 0-5 [facility] Comment on above: Order Comment: Urine , Random Result Comment: Micr oscopic field is filled. Other elements may beobscured. Performed By: #### L 400.0001, M100.2200 ####[facility] [address] [place], [address] BACTERIA 0 SEEN Normal None Seen [facility] Comment on above: Order Comment: Urine , Random Performed By: #### L 400.0001, M100.2200 ####[facility] [address] [place], [address] EPI,SQUAMOUS 0 SEEN Normal 5-10 [facility] Comment on above: Order Comment: Urine , Random Performed By: #### L 400.0001, M100.2200 ####[facility] [address] [place], [address] Mucus Ql (Urine sed) 0 SEEN Normal [facility] Comment on above: Order Comment: Urine , Random Performed By: #### L 400.0001, M100.2200 ####[facility] [address] [place], [address] RBC 0 SEEN Normal 0-5 [facility] Comment on above: Order Comment: Urine , Random Performed By: #### L 400.0001, M100.2200 ####[facility] [address] [place], [address] EGD Study observation Asia baldwin 03-23-2024 [facility] Gastrointestinal Endoscopy Patient Name: Kary Haddad Procedure Date: 03/23/2024 11:01 AM Date of : 1955 Admit Type: Outpatient Room: [place] [address] Gender: Female Note Status: Finalized Attending MD: Casimiro Torrez MD, [id number] Procedure: Upper GI endoscopy Indications: Follow-up of duodenal ulcer Providers: Casimiro Torrez MD Patient Profile: This is a 68 year old female. Refer to note in patient chart for documentation of history and physical. Referring Physician: Jules Alvarez MD (Referring MD) Medicines: Monitored Anesthesia Care Complications: No immediate complications. Procedure: Pre-Anesthesia Assessment: - Prior to the procedure, a History and Physical was performed, and patient medications and allergies were reviewed. The patient's tolerance of previous anesthesia was also reviewed. The risks and benefits of the procedure and the sedation options and risks were discussed with the patient. All questions were answered, and informed consent was obtained. Prior Anticoagulants: The patient has taken no anticoagulant or antiplatelet agents. ASA Grade Assessment: II - A patient with mild systemic disease. After reviewing the risks and benefits, the patient was deemed in satisfactory condition to undergo the procedure. After obtaining informed consent, the endoscope was passed under direct vision. Throughout the procedure, the patient's blood pressure, pulse, and oxygen saturations were monitored continuously. The Endoscope was introduced through the mouth, and advanced to the second part of duodenum. I was present and participated during the entire procedure, including non-george portions, and during the administration and monitoring of Moderate Sedation. The upper GI endoscopy was accomplished without difficulty. The patient tolerated the procedure well. Moderate Sedation: Exam was performed under monitored anesthesia care (MAC) Findings: The examined esophagus was normal. Multiple localized small erosions with no bleeding and no stigmata of recent bleeding were found in the entire examined stomach. Biopsies were taken with a cold forceps for Helicobacter pylori testing. Verification of patient identification for the specimen was done. Estimated blood loss was minimal. Patchy mildly erythematous mucosa without active bleeding and with no stigmata of bleeding was found in the duodenal bulb. The exam of the duodenum was otherwise normal. Estimated Blood Loss: Estimated blood loss: none. Impression: - Normal esophagus. - Erosive gastropathy with no bleeding and no stigmata of recent bleeding. Biopsied. - Erythematous duodenopathy. Recommendation: - Discharge patient to home. - Resume previous diet. - Continue present medications. - Await pathology results. - Use Prilosec (omeprazole) 40 mg PO daily. Attending Participation: I personally performed the entire procedure. Scope In: 1:48:16 PM Scope Out: 1:53:17 PM MD Casimiro Moss MD 03/23/2024 2:15:25 PM This report has been signed electronically by Casimiro Torrez MD Number of Addenda: 0 Note Initiated On: 03/23/2024 11:01 AM [facility] Radiology Study observation (narrative) [facility] Absolute lymphocyte countOrd ered By: Ronald Lowe on 12-03-2023 Lymphocytes Auto (Unsp spec) [#/Vol] 1.83 10*3/uL 0.83-4.51 [facility] Automated lymphocyte count a s percentage of total leukocytesOrdered By: Ronald Lowe on 12-03-2023 Lymphocytes/100 WBC Auto (Unsp spec) 26.7 % 19-41 [facility] Basophil percentageOrdered B y: Ronald Lowe on 12-03-2023 Basophil percentage 2.4 mg/dL 2.5-4.9 [facility] Basophils/100 WBC (Bld) 0.7 % 0-1 [facility] Chloride [Moles/Vol] 117 mmol/L 98-107 [facility] Eosinophils/100 WBC (Bld) 4.4 % 0-5 [facility] Glucose [Mass/Vol] 105 mg/dL 74-106 [facility] Comment on above: Fasting Glucose resu lt from 100 to 125 mg/dL suggests IMPAIRED HOMEOSTASIS per A.D.A. criteria. Hemoglobin (Bld) [Mass/Vol] 9.5 g/dL 12.0-15.0 [facility] Monocytes/100 WBC (Bld) 9.9 % 0-10 [facility] Neutrophils (Bld) [#/Vol] 4.0 10*3/uL 2.0-7.7 [facility] Neutrophils/100 WBC (Bld) 57.9 % 47-70 [facility] Potassium [Moles/Vol] 4.1 mmol/L 3.5-5.1 [facility] Sodium [Moles/Vol] 143 mmol/L 136-145 [facility] WBC (Bld) [#/Vol] 6.9 10*3/uL 4.4-11.0 [facility] Determination of erythrocyte mean corpuscular volume (MCV)Ordered By: Ronald Lowe on 12-03-2023 MCV (RBC) [Entitic vol] 91.1 fL 81-99 [facility] Erythrocyte distribution wid th ratioOrdered By: Ronald Lowe on 12-03-2023 Erythrocyte distribution width (RBC) [Ratio] 13.7 % 11.6-14.6 [facility] Erythrocyte distribution wid th standard deviationOrdered By: Ronald Lowe on 12-03-2023 Erythrocyte distribution width (RBC) [Entitic vol] 46.1 fL 35.1-43.9 [facility] Hematocrit Auto (Bld) [Volum e fraction]Ordered By: Ronald Lowe on 12-03-2023 Hematocrit (Bld) [Volume fraction] 29.8 % 37-47 [facility] Immature granulocytes/100 WB C Auto (Bld)Ordered By: Ronald Lowe on 12-03-2023 Immature granulocytes/100 WBC (Bld) 0.400 % 0.0-0.9 [facility] Comment on above: IG% - Immature Granu locytes (promyelocytes, myelocytes and metamyelocytes) > 1% indicates that a LEFT SHIFT is Present. Laboratory - Chemistry and C hemistry - challengeOrdered By: Ronald Lowe on 12-03-2023 CO2 [Moles/Vol] 20.0 mmol/L 21.0-32.0 [facility] Magnesium [Mass/Vol] 1.6 mg/dL 1.6-2.6 [facility] Urea nitrogen/Creatinine [Mass ratio] 16.2 mg/mg 10-20 [facility] Laboratory - Hematology and Cell countsOrdered By: Ronald Lowe on 12-03-2023 MCH (RBC) [Entitic mass] 29.1 pg 27.0-32.0 [facility] MCHC (RBC) [Mass/Vol] 31.9 g/dL 32-36 [facility] Nucleated RBC/100 WBC (Bld) [Ratio] 0 % 0-5 [facility] Platelet mean volume (Bld) [Entitic vol] 11.5 fL 6.2-12.0 [facility] Platelets (Bld) [#/Vol] 276 10*3/uL 150-450 [facility] No Panel InformationOrdered By: Ronald Lowe on 12-03-2023 Estimated Creatinine Clearance Calc 33.93 ml/min [facility] Estimated GFR (MDRD) Amer 47 mL/min >60 [facility] Comment on above: GFR Calc Estimated GFR (MDRD) Non-Af Amer 39 mL/min >60 [facility] Comment on above: Non- GFR Calc RBC Auto (Bld) [#/Vol]Ordere d By: Ronald Lowe on 12-03-2023 RBC (Bld) [#/Vol] 3.27 10*6/uL 4.2-5.4 [facility] Serum or plasma calcium yamil urement (mass/volume)Ordered By: Ronald Lowe on 12-03-2023 Calcium [Mass/Vol] 8.6 mg/dL 8.5-10.1 [facility] Serum or plasma creatinine m easurement (mass/volume)Ordered By: Ronald Lowe on 12-03-2023 Creatinine [Mass/Vol] 1.42 mg/dL 0.55-1.02 [facility] Comment on above: The validity of the calculated GFR & GFRAA in patients over 70 years has not been determined. Clinical correlation is essential. Serum or plasma urea nitroge n measurement (mass/volume)Ordered By: Ronald Lowe on 12-03-2023 Urea nitrogen [Mass/Vol] 23 mg/dL 7-18 [facility] Thin prep Papanicolaou smear with manual screeningOrdered By: Ronald Lowe on 12-03-2023 Thin prep Papanicolaou smear with manual screening 6 5-15 [facility] Absolute lymphocyte countOrd ered By: Raisa Calhoun on 12-01-2023 Lymphocytes Auto (Unsp spec) [#/Vol] 2.01 10*3/uL 0.83-4.51 [facility] Activated partial thrombopla stin time (aPTT) in platelet poor plasma by coagulation aOrdered By: Raisajeff Calhoun on 12-01-2023 aPTT Coag (PPP) [Time] 28.2 s 24.1-36.2 [facility] Automated lymphocyte count a s percentage of total leukocytesOrdered By: Riasa Calhoun on 12-01-2023 Lymphocytes/100 WBC Auto (Unsp spec) 16.6 % 19-41 [facility] Basophil percentageOrdered B y: Raisa Calhoun on 12-01-2023 Basophils/100 WBC (Bld) 0.7 % 0-1 [facility] Bilirubin [Mass/Vol] 0.40 mg/dL 0.20-1.00 [facility] Comment on above: For patients on eltr ombopag therapy, use of Dimension [place] TBIL is not recommended. Chloride [Moles/Vol] 109 mmol/L 98-107 [facility] Eosinophils/100 WBC (Bld) 2.2 % 0-5 [facility] Glucose [Mass/Vol] 139 mg/dL 74-106 [facility] Comment on above: Fasting Glucose resu lt greater than or equal to 126 mg/dL suggests DIABETES MELLITUS per A.D.A. criteria. Hemoglobin (Bld) [Mass/Vol] 11.1 g/dL 12.0-15.0 [facility] Lactate [Moles/Vol] 1.3 mmol/L 0.4-2.0 [facility] Monocytes/100 WBC (Bld) 8.4 % 0-10 [facility] Neutrophils (Bld) [#/Vol] 8.7 10*3/uL 2.0-7.7 [facility] Neutrophils/100 WBC (Bld) 71.5 % 47-70 [facility] Potassium [Moles/Vol] 3.9 mmol/L 3.5-5.1 [facility] Protein [Mass/Vol] 6.9 g/dL 6.4-8.2 [facility] Sodium [Moles/Vol] 139 mmol/L 136-145 [facility] WBC (Bld) [#/Vol] 12.1 10*3/uL 4.4-11.0 [facility] Determination of erythrocyte mean corpuscular volume (MCV)Ordered By: aRisa Calhoun on 12-01-2023 MCV (RBC) [Entitic vol] 89.7 fL 81-99 [facility] Direct bilirubinOrdered By: Raisa Calhoun on 12-01-2023 Bilirubin.direct [Mass/Vol] 0.12 mg/dL 0.00-0.30 [facility] Erythrocyte distribution wid th ratioOrdered By: Raisa Calhoun on 12-01-2023 Erythrocyte distribution width (RBC) [Ratio] 13.9 % 11.6-14.6 [facility] Erythrocyte distribution wid th standard deviationOrdered By: Raisa Calhoun on 12-01-2023 Erythrocyte distribution width (RBC) [Entitic vol] 45.1 fL 35.1-43.9 [facility] Hematocrit Auto (Bld) [Volum e fraction]Ordered By: Raisa Calhoun on 12-01-2023 Hematocrit (Bld) [Volume fraction] 34.7 % 37-47 [facility] Immature granulocytes/100 WB C Auto (Bld)Ordered By: Raisa Calhoun on 12-01-2023 Immature granulocytes/100 WBC (Bld) 0.600 % 0.0-0.9 [facility] Comment on above: IG% - Immature Granu locytes (promyelocytes, myelocytes and metamyelocytes) > 1% indicates that a LEFT SHIFT is Present. Laboratory - Chemistry and C hemistry - challengeOrdered By: Raisa Calhoun on 12-01-2023 ALP [Catalytic activity/Vol] 76 U/L 45-117 [facility] ALT [Catalytic activity/Vol] 20 U/L 13-56 [facility] CO2 [Moles/Vol] 23.0 mmol/L 21.0-32.0 [facility] Globulin (S) [Mass/Vol] 3.4 g/dL 2.2-4.2 [facility] Urea nitrogen/Creatinine [Mass ratio] 28.0 mg/mg 10-20 [facility] Laboratory - CoagulationOrde red By: Raisa Calhoun on 12-01-2023 INR Coag (Bld) [Relative time] 1.1 {INR} [facility] PT Coag (PPP) [Time] 14.6 s 11.7-14.9 [facility] Laboratory - Hematology and Cell countsOrdered By: Raisa Calhoun on 12-01-2023 MCH (RBC) [Entitic mass] 28.7 pg 27.0-32.0 [facility] MCHC (RBC) [Mass/Vol] 32.0 g/dL 32-36 [facility] Nucleated RBC/100 WBC (Bld) [Ratio] 0 % 0-5 [facility] Platelet mean volume (Bld) [Entitic vol] 10.5 fL 6.2-12.0 [facility] Platelets (Bld) [#/Vol] 401 10*3/uL 150-450 [facility] No Panel InformationOrdered By: Raisa Calhoun on 12-01-2023 Estimated Creatinine Clearance Calc 25.91 ml/min [facility] Estimated GFR (MDRD) Amer 34 mL/min >60 [facility] Comment on above: GFR Calc Estimated GFR (MDRD) Non-Af Amer 28 mL/min >60 [facility] Comment on above: Non- GFR Calc RBC Auto (Bld) [#/Vol]Ordere d By: Raisa Calhoun on 12-01-2023 RBC (Bld) [#/Vol] 3.87 10*6/uL 4.2-5.4 [facility] Serum or plasma calcium yamil urement (mass/volume)Ordered By: Raisa Calhoun on 12-01-2023 Calcium [Mass/Vol] 9.4 mg/dL 8.5-10.1 [facility] Serum or plasma creatinine m easurement (mass/volume)Ordered By: Raisa Calhoun on 12-01-2023 Creatinine [Mass/Vol] 1.86 mg/dL 0.55-1.02 [facility] Comment on above: The validity of the calculated GFR & GFRAA in patients over 70 years has not been determined. Clinical correlation is essential. Serum or plasma urea nitroge n measurement (mass/volume)Ordered By: Raisa Calhoun on 12-01-2023 Urea nitrogen [Mass/Vol] 52 mg/dL 7-18 [facility] Stool gastrointestinal hemog lobin detection by immunologic methodOrdered By: Raisa Calhoun on 12-01-2023 Lower GI hemoglobin IA Ql (Stl) [facility] Thin prep Papanicolaou smear with manual screeningOrdered By: Raisa Calhoun on 12-01-2023 Thin prep Papanicolaou smear with manual screening 3.5 g/dL 3.2-5.0 [facility] Thin prep Papanicolaou smear with manual screening 18 U/L 15-37 [facility] Thin prep Papanicolaou smear with manual screening 7 5-15 [facility] Absolute lymphocyte countOrd ered By: Ronald Lowe on 07-27-2023 Lymphocytes Auto (Unsp spec) [#/Vol] 2.05 10*3/uL 0.83-4.51 [facility] Basophil percentageOrdered B y: Ronald Lowe on 07-27-2023 Basophil percentage 2.7 mg/dL 2.5-4.9 [facility] Basophils/100 WBC (Bld) 0.8 % 0-1 [facility] Chloride [Moles/Vol] 113 mmol/L 98-107 [facility] Eosinophils/100 WBC (Bld) 2.6 % 0-5 [facility] Glucose [Mass/Vol] 127 mg/dL 74-106 [facility] Comment on above: Fasting Glucose resu lt greater than or equal to 126 mg/dL suggests DIABETES MELLITUS per A.D.A. criteria. Neutrophils (Bld) [#/Vol] 6.8 10*3/uL 2.0-7.7 [facility] Neutrophils/100 WBC (Bld) 65.5 % 47-70 [facility] Potassium [Moles/Vol] 3.8 mmol/L 3.5-5.1 [facility] Sodium [Moles/Vol] 140 mmol/L 136-145 [facility] WBC (Bld) [#/Vol] 10.4 10*3/uL 4.4-11.0 [facility] Blood erythrocytes count (nu mber/volume)Ordered By: Ronald Lowe on 07-27-2023 RBC (Bld) [#/Vol] 3.84 10*6/uL 4.2-5.4 [facility] Blood hemoglobin measurement (mass/volume)Ordered By: Ronald Lowe on 07-27-2023 Hemoglobin (Bld) [Mass/Vol] 11.1 g/dL 12.0-15.0 [facility] Blood lymphocytes/100 leukoc ytesOrdered By: Ronald Lowe on 07-27-2023 Lymphocytes/100 WBC (Bld) 19.7 % 19-41 [facility] Blood monocytes/100 leukocyt esOrdered By: Ronald Lowe on 07-27-2023 Monocytes/100 WBC (Bld) 10.8 % 0-10 [facility] Blood platelet mean volumeOr dered By: Ronald Lowe on 07-27-2023 Platelet mean volume (Bld) [Entitic vol] 11.2 fL 6.2-12.0 [facility] Determination of erythrocyte mean corpuscular volume (MCV)Ordered By: Ronald Lowe on 07-27-2023 MCV (RBC) [Entitic vol] 91.9 fL 81-99 [facility] Hematocrit Auto (Bld) [Volum e fraction]Ordered By: Ronald Lowe on 07-27-2023 Hematocrit (Bld) [Volume fraction] 35.3 % 37-47 [facility] Laboratory - Chemistry and C hemistry - challengeOrdered By: Ronald Lowe on 07-27-2023 CO2 [Moles/Vol] 22.0 mmol/L 21.0-32.0 [facility] Magnesium [Mass/Vol] 1.6 mg/dL 1.6-2.6 [facility] Urea nitrogen/Creatinine [Mass ratio] 21.7 mg/mg 10-20 [facility] Laboratory - Hematology and Cell countsOrdered By: Ronald Lowe on 07-27-2023 Erythrocyte distribution width (RBC) [Entitic vol] 49.1 fL 35.1-43.9 [facility] Erythrocyte distribution width (RBC) [Ratio] 14.6 % 11.6-14.6 [facility] Immature granulocytes/100 WBC (Bld) 0.600 % 0.0-0.9 [facility] Comment on above: IG% - Immature Granu locytes (promyelocytes, myelocytes and metamyelocytes) > 1% indicates that a LEFT SHIFT is Present. MCH (RBC) [Entitic mass] 28.9 pg 27.0-32.0 [facility] Nucleated RBC/100 WBC (Bld) [Ratio] 0 % 0-5 [facility] [Mass/Vol]Or dered By: Ronald Lowe on 07-27-2023 MCHC (RBC) [Mass/Vol] 31.4 g/dL 32-36 [facility] No Panel InformationOrdered By: Ronald Lowe on 07-27-2023 Estimated Creatinine Clearance Calc 30.00 ml/min [facility] Estimated GFR (MDRD) Amer 49 mL/min >60 [facility] Comment on above: GFR Calc Estimated GFR (MDRD) Non-Af Amer 40 mL/min >60 [facility] Comment on above: Non- GFR Calc Platelets bldOrdered By: Donnie Lowe on 07-27-2023 Platelets (Bld) [#/Vol] 301 10*3/uL 150-450 [facility] Serum or plasma calcium yamil urement (mass/volume)Ordered By: Ronald Lowe on 07-27-2023 Calcium [Mass/Vol] 9.1 mg/dL 8.5-10.1 [facility] Serum or plasma creatinine m easurement (mass/volume)Ordered By: Ronald Lowe on 07-27-2023 Creatinine [Mass/Vol] 1.38 mg/dL 0.55-1.02 [facility] Comment on above: The validity of the calculated GFR & GFRAA in patients over 70 years has not been determined. Clinical correlation is essential. Serum or plasma urea nitroge n measurement (mass/volume)Ordered By: Ronald Lowe on 07-27-2023 Urea nitrogen [Mass/Vol] 30 mg/dL 7-18 [facility] Thin prep Papanicolaou smear with manual screeningOrdered By: Ronald Lowe on 07-27-2023 Thin prep Papanicolaou smear with manual screening 5 5-15 [facility] Basophil percentageOrdered B y: Melecio Torrez on 07-26-2023 Bilirubin [Mass/Vol] 0.40 mg/dL 0.20-1.00 [facility] Comment on above: For patients on eltr ombopag therapy, use of Dimension [place] TBIL is not recommended. Protein [Mass/Vol] 6.3 g/dL 6.4-8.2 [facility] Blood manual differential co mment interpretation (narrative result)Ordered By: Melecio Torrez on 07-26-2023 Manual differential comment Fitz (Bld) [Interp] SCANNED [facility] Comment on above: MONOCYTOSIS PRESENT Blood platelet morphology de termination (nominal result)Ordered By: Melecio Torrez on 07-26-2023 Platelet morphology finding Nom (Bld) LARGE [facility] Direct bilirubinOrdered By: Melecio Torrez on 07-26-2023 Bilirubin.direct [Mass/Vol] 0.12 mg/dL 0.00-0.30 [facility] INR in Blood by Coagulation assayOrdered By: Melecio Torrez on 07-26-2023 INR Coag (Bld) [Relative time] 1.1 {INR} [facility] Laboratory - Chemistry and C hemistry - challengeOrdered By: Melecio Torrez on 07-26-2023 ALP [Catalytic activity/Vol] 68 U/L 45-117 [facility] ALT [Catalytic activity/Vol] 26 U/L 13-56 [facility] Globulin (S) [Mass/Vol] 3.1 g/dL 2.2-4.2 [facility] Natriuretic peptide B (Bld) [Mass/Vol] 1014.8 pg/mL 0-100 [facility] Laboratory - CoagulationOrde red By: Melecio Torrez on 07-26-2023 aPTT Coag (Bld) [Time] 45.6 s 24.1-36.2 [facility] PT Coag (PPP) [Time] 14.7 s 11.7-14.9 [facility] No Panel InformationOrdered By: Melecio Torrez on 07-26-2023 Troponin I High Sensitivity 1815 pg/mL 3.0-54.0 [facility] Comment on above: Critical Result(s) C alled at: 01:45:09 07/26/2023 by: Miguel Angel Baldwin. ADRIA AlejandreRN) (PCU) Results read back by same. Please Note: New Test Units and Gender Specific Reference Ranges. For more information see Policy Stat Procedure [place] High Sensitivity Troponin (TNIH) and attachments. Review by pathologistOrdered By: Melecio Torrez on 07-26-2023 Pathologist review Fitz (Unsp spec) [Interp] Reviewed [facility] Comment on above: Previous reported re sult: Anna owens Edited by: MARIA LUISA on 07/26/23:1426Neutrophilic leukocytosis.Clinical correlation suggested.Dereck Nunn D.O. 07/26/23 AMENDED REPORT 07/26/23 1426 PATH REV previously reported as: December roman Serum or plasma albumin yamil urement (mass/volume)Ordered By: Melecio Torrez on 07-26-2023 Albumin [Mass/Vol] 3.2 g/dL 3.2-5.0 [facility] Thin prep Papanicolaou smear with manual screeningOrdered By: Melecio Torrez on 07-26-2023 Thin prep Papanicolaou smear with manual screening 22 U/L 15-37 [facility] Absolute lymphocyte countOrd ered By: Valentin Ceballos on 07-25-2023 Lymphocytes Auto (Unsp spec) [#/Vol] 1.03 10*3/uL 0.83-4.51 [facility] Basophil percentageOrdered B y: Valentin Ceballos on 07-25-2023 Basophils/100 WBC (Bld) 0.5 % 0-1 [facility] Chloride [Moles/Vol] 111 mmol/L 98-107 [facility] Eosinophils/100 WBC (Bld) 0.1 % 0-5 [facility] Glucose [Mass/Vol] 146 mg/dL 74-106 [facility] Comment on above: Fasting Glucose resu lt greater than or equal to 126 mg/dL suggests DIABETES MELLITUS per A.D.A. criteria. Neutrophils (Bld) [#/Vol] 16.7 10*3/uL 2.0-7.7 [facility] Neutrophils/100 WBC (Bld) 88.1 % 47-70 [facility] Potassium [Moles/Vol] 3.7 mmol/L 3.5-5.1 [facility] Sodium [Moles/Vol] 142 mmol/L 136-145 [facility] WBC (Bld) [#/Vol] 19.0 10*3/uL 4.4-11.0 [facility] Blood erythrocytes count (nu mber/volume)Ordered By: Valentin Ceballos on 07-25-2023 RBC (Bld) [#/Vol] 4.88 10*6/uL 4.2-5.4 [facility] Blood hemoglobin measurement (mass/volume)Ordered By: Valentin Ceballos on 07-25-2023 Hemoglobin (Bld) [Mass/Vol] 13.9 g/dL 12.0-15.0 [facility] Blood lymphocytes/100 leukoc ytesOrdered By: Valentin Ceballos on 07-25-2023 Lymphocytes/100 WBC (Bld) 5.4 % 19-41 [facility] Blood monocytes/100 leukocyt esOrdered By: Valentin Ceballos on 07-25-2023 Monocytes/100 WBC (Bld) 5.4 % 0-10 [facility] Blood platelet mean volumeOr dered By: Valentin Ceballos on 07-25-2023 Platelet mean volume (Bld) [Entitic vol] 10.6 fL 6.2-12.0 [facility] Determination of erythrocyte mean corpuscular volume (MCV)Ordered By: Valentin Ceballos on 07-25-2023 MCV (RBC) [Entitic vol] 88.5 fL 81-99 [facility] Hematocrit Auto (Bld) [Volum e fraction]Ordered By: Valentin Ceballos on 07-25-2023 Hematocrit (Bld) [Volume fraction] 43.2 % 37-47 [facility] Laboratory - Chemistry and C hemistry - challengeOrdered By: Valentin Ceballos on 07-25-2023 CO2 [Moles/Vol] 21.0 mmol/L 21.0-32.0 [facility] Natriuretic peptide B (Bld) [Mass/Vol] 383.4 pg/mL 0-100 [facility] Urea nitrogen/Creatinine [Mass ratio] 16.3 mg/mg 10-20 [facility] Laboratory - Hematology and Cell countsOrdered By: Valentin Ceballos on 07-25-2023 Erythrocyte distribution width (RBC) [Entitic vol] 45.2 fL 35.1-43.9 [facility] Erythrocyte distribution width (RBC) [Ratio] 14.1 % 11.6-14.6 [facility] Immature granulocytes/100 WBC (Bld) 0.500 % 0.0-0.9 [facility] Comment on above: IG% - Immature Granu locytes (promyelocytes, myelocytes and metamyelocytes) > 1% indicates that a LEFT SHIFT is Present. MCH (RBC) [Entitic mass] 28.5 pg 27.0-32.0 [facility] Nucleated RBC/100 WBC (Bld) [Ratio] 0 % 0-5 [facility] MCHC Auto (RBC) [Mass/Vol]Or dered By: Valentin Ceballos on 07-25-2023 MCHC (RBC) [Mass/Vol] 32.2 g/dL 32-36 [facility] No Panel InformationOrdered By: Valentin Ceballos on 07-25-2023 Troponin I High Sensitivity 2328 pg/mL 3.0-54.0 [facility] Comment on above: Critical Result(s) C alled at: 21:09:57 07/25/2023 by: Dary Becerra to Kaye Baldwin. Results read back by same. Please Note: New Test Units and Gender Specific Reference Ranges. For more information see Policy Stat Procedure [place] High Sensitivity Troponin (TNIH) and attachments. Estimated Creatinine Clearance Calc 29.36 ml/min [facility] Estimated GFR (MDRD) Amer 47 mL/min >60 [facility] Comment on above: GFR Calc Estimated GFR (MDRD) Non-Af Amer 39 mL/min >60 [facility] Comment on above: Non- GFR Calc Platelets bldOrdered By: Jozef Ceballos on 07-25-2023 Platelets (Bld) [#/Vol] 429 10*3/uL 150-450 [facility] Serum or plasma calcium yamil urement (mass/volume)Ordered By: Valentin Ceballos on 07-25-2023 Calcium [Mass/Vol] 9.3 mg/dL 8.5-10.1 [facility] Serum or plasma creatinine m easurement (mass/volume)Ordered By: Valentin Ceballos on 07-25-2023 Creatinine [Mass/Vol] 1.41 mg/dL 0.55-1.02 [facility] Comment on above: The validity of the calculated GFR & GFRAA in patients over 70 years has not been determined. Clinical correlation is essential. Serum or plasma urea nitroge n measurement (mass/volume)Ordered By: Valentin Ceballos on 07-25-2023 Urea nitrogen [Mass/Vol] 23 mg/dL 03-19 [facility] Thin prep Papanicolaou smear with manual screeningOrdered By: Valentin Ceballos on 07-25-2023 Thin prep Papanicolaou smear with manual screening 01-14 [facility] Culture, urineOrdered By: Edith Hargrove on 06-05-2023 Bacteria identified Cx Nom (U) Escherichia coli [facility] Vital Signs Date Time Vital Sign Value Performing Clinician Faci lity 05-17-2025 09:17-0400 Body temperature 98.2 [degF] Dr. Phuc Barker MD Work Phone: [facility] 05-17-2025 09:17-0400 Body weight 74.[address] Phuc Barker MD Work Phone: [facility] 05-17-2025 09:17-0400 Diastolic blood pressure 74 mm[Hg] Dr. Phuc Barker MD Work Phone: [facility] 05-17-2025 09:17-0400 Heart rate 75 /min Dr. Phuc Barker MD Work Phone: [facility] 05-17-2025 09:17-0400 Respiratory rate 17 /min Dr. Phuc Barker MD Work Phone: [facility] 05-17-2025 09:17-0400 SaO2% (BldA) [Mass fraction] 96 % Dr. Phuc Barker MD Work Phone: [facility] 05-17-2025 09:17-0400 Systolic blood pressure 126 mm[Hg] Dr. Phuc Barker MD Work Phone: [facility] 04-20-2025 13:06-0400 Body height 156.2 cm Sultana Garcia Work Phone: [facility] 04-20-2025 13:06-0400 Body mass index (BMI) [Ratio] 29.37 kg/m2 Sultana Garcia Work Phone: [facility] 04-20-2025 13:06-0400 Body temperature 97.9 [degF] Sultana Garcia Work Phone: [facility] 04-20-2025 13:06-0400 Body weight 71.67 kg Sultana Garcia Work Phone: [facility] 04-20-2025 13:06-0400 Diastolic blood pressure 78 mm[Hg] Sultana Garcia Work Phone: [facility] 04-20-2025 13:06-0400 Heart rate 67 /min Sultana Garcia Work Phone: [facility] 04-20-2025 13:06-0400 SaO2% (BldA) [Mass fraction] 95 % Sultana Garcia Work Phone: [facility] 04-20-2025 13:06-0400 Systolic blood pressure 123 mm[Hg] Sultana Garcia Work Phone: [facility] 03-23-2024 14:15-0400 Heart rate 69 /min Casimiro Torrez MD Work Phone: [facility] 03-23-2024 14:15-0400 Respiratory rate 17 /min Casimiro Torrez MD Work Phone: [facility] 03-23-2024 14:15-0400 SaO2% (BldA) [Mass fraction] 98 % Casimiro Torrez MD Work Phone: [facility] 03-23-2024 14:05-0400 Body temperature 97.2 [degF] Casimiro Torrez MD Work Phone: [facility] 03-23-2024 14:05-0400 Diastolic blood pressure 53 mm[Hg] Casimiro Torrez MD Work Phone: [facility] 03-23-2024 14:05-0400 Systolic blood pressure 100 mm[Hg] Casimiro Torrez MD Work Phone: [facility] 12-03-2023 07:53-0400 Heart rate 55 /min Dr. Awa Hargrove Work Phone: [facility] 12-03-2023 07:50-0400 Body temperature 98.2 [degF] Dr. Awa Hargrove Work Phone: [facility] 12-03-2023 07:50-0400 Diastolic blood pressure 44 mm[Hg] Dr. Awa Hargrove Work Phone: [facility] 12-03-2023 07:50-0400 Respiratory rate 16 /min Dr. Awa Hargrove Work Phone: [facility] 12-03-2023 07:50-0400 SaO2% (BldA) [Mass fraction] 96 % Dr. Awa Hargrove Work Phone: [facility] 12-03-2023 07:50-0400 Systolic blood pressure 105 mm[Hg] Dr. Awa Hargrove Work Phone: [facility] 12-02-2023 08:56-0400 Body height 154.[address] Awa Hargrove Work Phone: [facility] 12-02-2023 08:56-0400 Body mass index (BMI) [Ratio] 30.8 kg/m2 Dr. Awa Hargrove Work Phone: [facility] 12-02-2023 08:56-0400 Body weight 74.[address] Awa Hargrove Work Phone: [facility] 12-01-2023 14:15-0400 Body temperature 98 [degF] Dr. Awa Hargrove Work Phone: [facility] 12-01-2023 14:15-0400 Diastolic blood pressure 76 mm[Hg] Dr. Awa Hargrove Work Phone: [facility] 12-01-2023 14:15-0400 Heart rate 48 /min Dr. Awa Hargrove Work Phone: [facility] 12-01-2023 14:15-0400 Respiratory rate 14 /min Dr. Awa Hargrove Work Phone: [facility] 12-01-2023 14:15-0400 SaO2% (BldA) [Mass fraction] 98 % Dr. Awa Hargrove Work Phone: [facility] 12-01-2023 14:15-0400 Systolic blood pressure 128 mm[Hg] Dr. Awa Hargrove Work Phone: [facility] 12-01-2023 10:07-0400 Body height 154.[address] Awa Hargrove Work Phone: [facility] 12-01-2023 10:07-0400 Body mass index (BMI) [Ratio] 30.8 kg/m2 Dr. Awa Hargrove Work Phone: [facility] 12-01-2023 10:07-0400 Body weight 74.[address] Awa Hargrove Work Phone: [facility] 07-27-2023 12:39-0500 Body temperature 97.8 [degF] Dr. Awa Hargrove Work Phone: [facility] 07-27-2023 12:39-0500 Diastolic blood pressure 85 mm[Hg] Dr. Awa Hargrove Work Phone: [facility] 07-27-2023 12:39-0500 Heart rate 76 /min Dr. Awa Hargrove Work Phone: [facility] 07-27-2023 12:39-0500 Respiratory rate 16 /min Dr. Awa Hargrove Work Phone: [facility] 07-27-2023 12:39-0500 SaO2% (BldA) [Mass fraction] 95 % Dr. Awa Hargrove Work Phone: [facility] 07-27-2023 12:39-0500 Systolic blood pressure 143 mm[Hg] Dr. Awa Hargrove Work Phone: [facility] 07-25-2023 22:10-0500 Body height 157.[address] Awa Hargrove Work Phone: [facility] 07-25-2023 22:10-0500 Body mass index (BMI) [Ratio] 28.3 kg/m2 Dr. Awa Hargrove Work Phone: [facility] 07-25-2023 22:10-0500 Body weight 70.[address] Awa Hargrove Work Phone: [facility] 07-25-2023 21:53-0500 Body temperature 98.2 [degF] [facility] 07-25-2023 21:53-0500 Diastolic blood pressure 92 mm[Hg] [facility] 07-25-2023 21:53-0500 Heart rate 61 /min [facility] 07-25-2023 21:53-0500 Respiratory rate 20 /min [facility] 07-25-2023 21:53-0500 SaO2% (BldA) [Mass fraction] 96 % [facility] 07-25-2023 21:53-0500 Systolic blood pressure 182 mm[Hg] [facility] 07-25-2023 17:02-0500 Body height 157.48 cm [facility] 07-25-2023 17:02-0500 Body mass index (BMI) [Ratio] 29.5 kg/m2 [facility] 07-25-2023 17:02-0500 Body weight 73.11 kg [facility] Encounters Encounter Date Encounter Type Care Provider Facility Start: 05-17-2025 End: 05-17-[address] Phuc Barker MD Work Phone: -[facility] Start: 05-17-2025 End: 05-17-[address] Giovanny Brady MD -[facility] Work Phone: Start: 05-04-2025 ambulatory Phuc Barker Facility:[facility] Start: 05-04-[address] Ebonie Simmons MD -[facility] Start: 04-29-2025 End: 04-29-2025 Telephone encounter Sultana Garcia Work Phone: Hematology/Oncology Start: 04-22-2025 End: 04-22-2025 Telephone encounter Sultana Garcia Work Phone: Hematology/Oncology Comment on above: Electronic Communica tion Start: 04-20-2025 End: 04-20-2025 Patient encounter procedure Sultana Garcia Work Phone: Hematology/Oncology Start: 04-20-2025 End: 04-20-2025 ambulatory Sultana Garcia Work Phone: Hematology/Oncology Comment on above: Anemia, unspecified type (Primary Dx) Start: 04-06-2025 ambulatory Phuc Barker Facility:[facility] Start: 04-06-[address] Devendra delacruz MD [facility] Start: 03-30-2025 ambulatory Phuc Barker Facility:[facility] Start: 03-30-[address] Devendra delacruz MD [facility] Start: 02-12-2025 ambulatory Phuc Barker Facility:[facility] Start: 02-12-[address] Devendra delacruz MD [facility] Start: 01-13-2025 End: 01-13-[address] Phuc Barker MD Work Phone: [facility] Work Phone: Start: 01-13-2025 End: 01-13-[address] Johana Landrum MD [facility] Start: 01-13-2025 End: 01-13-2025 ambulatory Phuc Barker Facility:[facility] Start: 12-02-2024 End: 12-02-[address] Johana Landrum MD -[facility] Start: 12-02-[address] Johana Landrum MD -[facility] Start: 12-02-2024 End: 12-02-2024 ambulatory Phuc Barker Facility:[facility] Start: 11-30-2024 End: 11-30-[address] Phuc Barker MD Work Phone: [facility] Work Phone: Start: 11-30-2024 End: 11-30-[address] Johana Landrum MD -[facility] Start: 11-30-2024 End: 11-30-2024 ambulatory Phuc Barker Facility:[facility] Start: 09-21-2024 End: 09-21-[address] Johana Landrum MD -[facility] Start: 09-21-2024 End: 09-21-2024 ambulatory Phuc Barker Facility:[facility] Start: 08-31-2024 End: 08-31-[address] Johana Landrum MD [facility] Start: 08-31-2024 End: 08-31-2024 ambulatory Phuc Barker Facility:[facility] Start: 08-27-2024 End: 08-27-2024 Departed Referred [facility] -[facility] Start: 08-27-2024 End: 08-27-2024 ambulatory Phuc Barker Facility:[facility] Start: 07-24-2024 End: 07-24-2024 Emergency department patient visit Phuc Barker Facility:[facility] Start: 07-16-2024 ambulatory Phuc Barker Facility:[facility] Start: 07-16-2024 ambulatory Hawa L White Facility :[facility] Start: 07-16-2024 End: 07-22-2024 Evaluation and management of inpatient Hawa L White Facility:[facility] Start: 06-26-2024 ambulatory Phuc Barker OLS Facili ty:[facility] Start: 06-22-2024 End: 06-22-2024 ambulatory Renita Knott SUPERINTENDENT CAR CONSTRUCTIONCammyTAILOR APPRENTICE Work Phone: [facility] Comment on above: [facility] Start Start: 06-20-2024 End: 06-20-2024 Orders Only Becca Garcia PA-C Work Phone: [facility] Comment on above: SDH (subdural hemato ma) (HCC) (Primary Dx) Start: 06-18-2024 End: 06-18-2024 Emergency department patient visit Awa Hargroev Facility:[facility] Start: 06-18-2024 End: 06-18-2024 [facility] Start: 03-23-2024 End: 03-23-2024 Orders Only Casimiro Torrez MD Work Phone: [place] [facility] Comment on above: Duodenal ulcer with hemorrhage [K26.4] Start: 03-23-2024 End: 03-23-2024 Preprocedural examination done Casimiro Torrez MD Work Phone: [facility] Start: 03-06-2024 End: 03-06-2024 Subsequent hospital visit by physician [facility] Cat Scan Comment on above: Duodenal ulcer with hemorrhage [K26.4] Start: 12-03-2023 Non-patient / Non-visit Dr. Edith Hargrove Work Phone: [facility] Work Phone: Start: 12-03-2023 Non-patient / Non-visit Dr. Edith Hargrove Work Phone: [facility] Start: 12-02-2023 Non-patient / Non-visit Dr. Edith Hargrove Work Phone: [facility] Work Phone: Start: 12-02-2023 Non-patient / Non-visit Dr. Edith Hargrove Work Phone: [facility] Start: 12-01-2023 End: 12-03-2023 Evaluation and management of inpatient Dr. Awa Hargrove Work Phone: [facility]-Medical Surgical 3 Work Phone: Start: 12-01-2023 Non-patient / Non-visit Dr. Edith Hargrove Work Phone: [facility] Work Phone: Start: 10-25-2023 End: 10-25-[address] Awa Hargrove Work Phone: [facility]-Speech Therapy Work Phone: Start: 09-16-2023 End: 09-16-[address] Awa Hargrove Work Phone: [facility] Work Phone: Start: 09-16-2023 End: 09-16-[address] Awa Hargrove Work Phone: [facility]-Radiology, [facility] Work Phone: Start: 07-29-2023 Non-patient / Non-visit Dr. dEith Hargrove Work Phone: [facility] Start: 07-27-2023 Non-patient / Non-visit Dr. Edith Hargrove Work Phone: [facility] Work Phone: Start: 07-26-2023 Non-patient / Non-visit Dr. Edith Hargrove Work Phone: [facility] Start: 07-26-2023 Non-patient / Non-visit Dr. Edith Hargrove Work Phone: [facility] Work Phone: Start: 07-25-2023 End: 07-25-2023 Non-patient / Non-visit Dr. Awa Hargrove Work Phone: [facility] Work Phone: Start: 07-25-2023 End: 07-27-2023 Evaluation and management of inpatient [facility]-Progressive Care Unit Work Phone: Start: 06-05-2023 End: 06-05-2023 Patient encounter procedure [facility]-Laboratory, Specimen Work Phone: Start: 10-20-2021 End: 10-20-2021 Discharged Recurring [facility]-Physical Therapy Procedures Date Procedure Procedure Detail Performing Clinician Start: 05-04-2025 Serum inorganic phosphate measurement Dr. Phuc Barker MD Work Phone: Start: 04-06-2025 Serum inorganic phosphate measurement Dr. Phuc Barker MD Work Phone: Start: 03-30-[address] Phuc Barker MD Work Phone: Start: 03-30-2025 Urnls dip stick/tablet reagent auto microscopy Dr. Phuc Barker MD Work Phone: Start: 01-13-2025 Vitamin D, 25-hydroxy measurement Dr. Justus Braker MD Work Phone: Comment on above: Vitamin D StatusDeficiency: <20 ng/mL (5 0nmol/L)Insufficiency: 20-30 ng/mL (50-75 nmol/L)Sufficiency: 30-100 ng/mL (75-250 nmol/L)Toxicity: >100 ng/mL (>250 nmol/L) Start: 12-02-2024 Vitamin D, 25-hydroxy measurement Dr. Justus Barker MD Work Phone: Comment on above: Vitamin D StatusDeficiency: <20 ng/mL (5 0nmol/L)Insufficiency: 20-30 ng/mL (50-75 nmol/L)Sufficiency: 30-100 ng/mL (75-250 nmol/L)Toxicity: >100 ng/mL (>250 nmol/L) Start: 09-21-[address] Phuc Barker MD Work Phone: Start: 03-23-2024 Esophagogastroduodenoscopy transoral diagnostic Jules Alvarez MD Work Phone: Start: 12-02-[address] Awa delacruz Work Phone: Start: 12-01-2023 Plain chest X-ray Dr. Awa Hargrove Work Phone: Start: 12-01-2023 Measurement of occult blood in stool specimen using immunoassay Dr. Awa Hargrove Work Phone: Start: 12-01-2023 CT of abdomen and pelvis without contrast Dr. Awa Hargrove Work Phone: Start: 09-16-[address] Awa Hargrove Work Phone: Start: 07-26-[address] Awa Hargrove Work Phone: Start: 07-25-2023 CT angiography of chest with contrast Start: 07-25-2023 Plain chest X-ray Start: 06-05-2023 Urine culture Start: 03-03-2020 Lipid 1996 panel - Serum or Plasma Ct Ws tr Plan of Treatment Date Care Activity Detail Author Start: 2028 RSV Vaccine (1 - 1-dose 75+ series) RSV Vaccine (1 - 1-dose 75+ series) [facility] Start: 04-20-2028 Diabetes Screening Diabetes Screening [facility] Start: 08-27-2027 Screening for malignant neoplasm of colon [facility] Start: 06-22-2027 Diabetes Screening Diabetes Screening [facility] Start: 06-20-2027 Diabetes Screening Diabetes Screening [facility] Start: 03-02-2027 Diabetes Screening Diabetes Screening [facility] Start: 07-30-2025 End: 10-29-2025 CBC W Auto Differential panel - Blood COMPLETE BLOOD COUNT AND DIFFERENTIAL Lab STAT 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, not on chronic dialysis (HCC) Expected: 07/30/2025 (Approximate), Expires: 10/29/2025 [facility] Work Phone: Comment on above: Expected: 07/30/2025 (Approximate), Expi res: 10/29/2025 Start: 06-15-2025 Hepatitis B Vaccine (3 of 3 - Risk Dialysis Recombivax 3-dose series) Hepatitis B Vaccine (3 of 3 - Risk Dialysis Recombivax 3-dose series) [facility] Start: 05-03-2025 Influenza vaccination Influenza Vaccine (#1) [facility] Start: 03-03-2025 Lipid panel Lipid Screening [facility] Start: 09-02-2024 Advance Directive Discussion Advance Directive Discussion [facility] Start: 09-02-2024 Medicare Advantage Annual Wellness Visit Medicare Advantage Annual Wellness Visit [facility] Start: 07-23-2024 End: 07-23-2024 Patient encounter procedure 07/23/2024 1:30 PM EST Office [facility] [address] [place] [id number] Sosa aSlas, SUPERINTENDENT CAR CONSTRUCTION.TAILOR APPRENTICE [address] [facility] [place] [address] SDH (subdural hematoma) (HCC) [S06.5XAA [facility] Comment on above: SDH (subdural hematoma) (HCC) [S06.5XAA Start: 07-20-2024 End: 07-20-2024 Patient encounter procedure 07/20/2024 11:00 AM EST Appointment [facility] [address] [place] [phone] SDH (subdural hematoma) (HCC) [S06.5XAA [facility] Comment on above: SDH (subdural hematoma) (HCC) [S06.5XAA Start: 05-03-2024 Covid-19 Vaccine ( season) Covid-19 Vaccine ( season) [facility] Start: 05-03-2024 Influenza vaccination Influenza Vaccine (#1) [facility] Start: 04-13-2024 End: 04-13-2024 Admission to same day surgery center 04/13/2024 11:30 AM EDT [facility] GENERAL SURGERY DEPARTMENT 1 [facility], [facility] [address] [place] [address] Jules Alvarez MD [address] [place] [address] Go Over EGD/ CT Scan 03/06 [facility] Comment on above: Go Over EGD/ CT Scan 03/06 Start: 03-30-2024 End: 03-30-2024 Admission to same day surgery center 03/30/2024 11:00 AM EDT [facility] GENERAL SURGERY DEPARTMENT [address] [facility], [facility] [address] [place] [address] Jules Alvarez MD [address] [place] [address] Go Over EGD/ CT Scan 03/06 [facility] Comment on above: Go Over EGD/ CT Scan 03/06 Start: 03-23-2024 End: 03-23-2024 Patient encounter procedure 03/23/2024 8:00 AM EDT Appointment [facility] [address] [place] [address] Jules Alvarez MD [address] [place] [address] [facility] Start: 12-05-2023 Blood chemistry [facility] Start: 12-04-2023 Blood chemistry [facility] Start: 12-03-2023 Patient discharge [facility] Start: 12-02-2023 Electrocardiographic monitoring [facility] Start: 12-01-2023 Ambulation without limitation [facility] Start: 12-01-2023 Assessment of risk of venous thromboembolism [facility] Start: 12-01-2023 Documentation procedure [facility] Start: 12-01-2023 Insertion of catheter into peripheral vein [facility] Start: 12-01-2023 Providing care according to standard [facility] Start: 12-01-2023 Referral to general surgeon [facility] Start: 12-01-2023 [facility] Start: 12-01-2023 Verification routine [facility] Start: 12-01-2023 Admission procedure [facility] Start: 12-01-2023 Hospital admission, emergency, from emergency room, medical nature [facility] Start: 09-02-2023 Advance Directive Discussion Advance Directive Discussion [facility] Start: 09-02-2023 Behavioral Health Screening Behavioral Health Screening [facility] Start: 07-29-2023 Patient referral [facility] Work Phone: Start: 07-27-2023 Patient discharge [facility] Start: 07-26-2023 Notification of physician [facility] Start: 07-26-2023 Patient education [facility] Start: 07-26-2023 Provision of activity privileges [facility] Start: 07-26-2023 Pulse taking [facility] Start: 07-26-2023 Taking patient vital signs [facility] Start: 07-26-2023 Wound care [facility] Start: 07-26-2023 [facility] Start: 07-26-2023 Ultrasonography of breast Breast Limited Unilateral [facility] Start: 07-26-2023 US Breast limited [facility] Start: 07-26-2023 Referral to 911 emergency dispatcher [facility] Start: 07-26-2023 Admission procedure [facility] Start: 07-25-2023 End: 07-26-2023 Measuring intake and output [facility] Start: 07-25-2023 End: 07-26-2023 Providing care according to standard [facility] Start: 07-25-2023 Application of intermittent pneumatic compression device [facility] Start: 07-25-2023 Oxygen therapy [facility] Start: 07-25-2023 Tobacco use cessation education [facility] Start: 07-25-2023 Provision of activity privileges [facility] Start: 07-25-2023 Assessment of risk of venous thromboembolism [facility] Start: 07-25-2023 End: 07-26-2023 Insertion of catheter into peripheral vein [facility] Start: 07-25-2023 End: 07-25-2023 [facility] Start: 07-25-2023 Following clinical pathway protocol [facility] Start: 07-25-2023 Partial thromboplastin time, activated [facility] Start: 07-25-2023 Prothrombin time [facility] Start: 07-25-2023 Hospital admission, emergency, from emergency room, medical nature [facility] Start: 07-25-2023 End: 07-26-2023 [facility] Start: 05-03-2023 Covid-19 Vaccine ( season) Covid-19 Vaccine () [facility] Start: 03-03-2021 Hepatitis B surface antibody level LDL Cholesterol [facility] Start: 2018 Pneumococcal Vaccine: 65+ (1 of 1 - PCV) Pneumococcal Vaccine: 65+ (1 of 1 - PCV) [facility] Start: 2018 Screening for osteoporosis Bone Density Screening [facility] Start: 2013 RSV Vaccine (1 - 1-dose 60+ series) RSV Vaccine (1 - 1-dose 60+ series) [facility] Start: 2003 Pneumococcal Vaccine: 50+ (1 of 1 - PCV) Pneumococcal Vaccine: 50+ (1 of 1 - PCV) [facility] Start: 2003 Shingrix Vaccine (1 of 2) Shingrix Vaccine (1 of 2) [facility] Start: 1998 Screening for malignant neoplasm of colon [facility] Start: 1993 Screening for malignant neoplasm of breast Mammogram Screening [facility] Start: 1972 Urine microalbumin profile DTaP,Tdap,Td Vaccine (1 - Tdap) [facility] Start: 1971 Annual PCP Team Chronic Disease Visit Annual PCP Team Chronic Disease Visit [facility] Start: 1971 Anxiety Screening Anxiety Screening [facility] Start: 1971 BP Controlled (<130/80) BP Controlled (<130/80) [facility] Start: 1971 Depression Screening Depression Screening [facility] Start: 1971 Hepatitis C screening Hepatitis C Screening [facility] Start: 1959 Pneumococcal Vaccine: 65+ (1 of 2 - PCV) Pneumococcal Vaccine: 65+ (1 of 2 - PCV) [facility] Blood ammonia measurement [facility] CT Abdomen and Pelvi s W contrast IV CT ABD/PEL W IVCON Radiology Routine Duodenal ulcer with hemorrhage 03/06/2024 12:15 PM EDT [facility] Work Phone: End: 07-20-2025 CT Head WO contrast CT BRAIN WO IVCON Radiology Routine SDH (subdural hematoma) (HCC) 1 Occurrences starting 06/20/2024 until 07/20/2025 [facility] Work Phone: Comment on above: 1 Occurrences starting 06/20/2024 until 07/20/2025 Cytoplasmic ANCA Screen [facility] Erythrocyte mean cor puscular volume determination [facility] Erythrocyte mean cor puscular volume determination [facility] Erythrocyte sediment ation rate [facility] Ferritin [Mass/volum e] in Serum or Plasma [facility] Folic acid measurement, RBC [facility] Hematocrit [Volume F raction] of Blood [facility] Hematocrit [Volume F raction] of Blood [facility] Hemoglobin [Mass/vol ume] in Blood [facility] Hemoglobin [Mass/vol ume] in Blood [facility] INR in Blood by Coag ulation assay [facility] Iron [Mass/mass] in Unspecified specimen [facility] Leukocytes [#/volume ] in Blood [facility] Leukocytes [#/volume ] in Blood [facility] Magnesium measurement [facility] Mean corpuscular hem oglobin concentration determination [facility] Mean corpuscular hem oglobin concentration determination [facility] Mean corpuscular hem oglobin determination [facility] Mean corpuscular hem oglobin determination [facility] Neutrophil count [facility] Neutrophil count [facility] Neutrophil percent differential count [facility] Neutrophil percent differential count [facility] Patient referral [facility] Work Phone: Platelets [#/volume] in Blood [facility] Platelets [#/volume] in Blood [facility] Red blood cell count [facility] Red blood cell count [facility] Red cell distributio n width determination [facility] Red cell distributio n width determination [facility] SURGICAL PATHOLOGY SURGICAL PATH OLOGY Lab Routine Duodenal ulcer with hemorrhage Release Upon Ordering for 1 Occurrences starting 03/23/2024 [facility] Work Phone: Comment on above: Release Upon Ordering for 1 Occurrences starting 03/23/2024 Thiamine measurement [facility] Thyroid stimulating hormone measurement [facility] Vitamin B12 measurement [facility] Vitamin B6 measurement [facility] Vitamin D, 1,25-dihy droxy measurement [facility] Immunizations Immunization Date Immunization Notes Care Provider Anni nicolas 06-15-2024 Hepatitis B vaccine (recombinant), CpG adjuvanted Becca Garcia PA-C Work Phone: [facility] 05-11-2024 Hepatitis B vaccine (recombinant), CpG adjuvanted Becca Garcia PA-C Work Phone: [facility] Payers Date Payer Category Payer Medicare (Managed Care) TANA Purvis [employer] HMO [id number] 2024 Medicaid [id number] 2024 Medicare [id number] 2024 Self-pay [id number] 2023 Unknown [employer]NA [employer] ADVANTAGE HMO [id number] 2023-Present [phone] [address] [place] [address] [facility] [id number] Medicare [id number] Unknown [id number] Unknown [id number] [id number]. 462 Unknown [id number] 2.840.1.490150.3.579.2. 462 Unknown [id number] .0.1.214444.3.579.2. 462 Unknown [id number] 2.16.840.1.250224.3.579.2. 462 Unknown [id number] 2.16.840.1.508446.3.579.2. 462 Unknown [id number] 2.16.840.1.201658.3.579.2. 462 Unknown [id number] 2.16.840.1.679137.3.579.2. 462 Unknown [id number] 2.16840.1.251095.3.579.2. 462 Unknown [id number] 2.16840.1.707217.3.579.2. 462 Unknown [id number] 2.840.1.940064.3.579.2. 462 Unknown [id number] 2.840.1.353160.3.579.2. 462 Unknown [id number] 2.840.1.458673.3.579.2. 462 Unknown [id number] 2.840.1.880452.3.579.2. 462 Unknown [id number] 2.840.1.294026.3.579.2. 462 Unknown [id number] 2.840.1.674788.3.579.2. 462 Unknown [id number] 2.840.1.862215.3.579.2. 462 Unknown [id number] 2.840.1.765725.3.579.2. 462 Unknown [id number] 2.16840.1.999642.3.579.2. 462 Unknown [id number] 2.16840.1.576614.3.579.2. 462 Unknown [id number] 2.16840.1.642233.3.579.2. 462 Unknown [id number] 2.16840.1.830821.3.579.2. 462 Unknown [id number] 2.840.1.179632.3.579.2. 462 Social History Date Type Detail Facility Start: 09-22-2021 End: 12-01-2023 Tobacco smoking status NHIS Unknown if ever smoked [facility] Start: 1955 Sex Assigned At Female [facility] Start: 02-19-2024 End: 07-24-2024 Tobacco smoking status NHIS Never smoked tobacco [facility] Start: 02-19-2024 Tobacco use and exposure Smokeless tobacco non-user [facility] Start: 02-19-2024 End: 04-20-2025 Alcohol intake Ex-drinker (finding) [facility] Start: 02-19-2024 End: 02-25-2024 History of Social function [facility] Start: 02-19-2024 End: 02-25-2024 Tobacco use panel [facility] Start: 12-18-2023 National Score (1-100), lower number is lower risk 96 [facility] Start: 1955 Sex Assigned At Not on file [facility] Start: 12-15-2024 Sex Female (finding) [facility] NEGATED: Highlighted row [facility] Goals Date Patient Goal Desired Activity /State Functional Status Date Assessment Result Facility 06-24-2024 Are you deaf, or do you have serious difficulty hearing No 06/24/2024 3:21 PM Marisela Thompson RN No [facility] 06-24-2024 Are you blind, or do you have serious difficulty seeing, even when wearing glasses No 06/24/2024 3:21 PM Marisela Thompson RN No [facility] 06-24-2024 Do you have serious difficulty walking or climbing stairs Yes 06/24/2024 3:21 PM Marisela Thompson RN Yes [facility] 06-24-2024 Do you have difficul ty dressing or bathing Yes 06/24/2024 3:21 PM Marisela Thompson RN Yes [facility] 06-24-2024 Because of a physica l, mental, or emotional condition, do you have difficulty doing errands alone such as visiting a physician's office or shopping Yes 06/24/2024 3:21 PM Marisela Thompson RN Yes [facility] 12-03-2023 Functional status Bathroom Privilege [facility] Work Phone: 07-27-2023 Functional status Ambulates;Bath room Privilege [facility] Work Phone: Mental Status Date Assessment Result Facility 06-24-2024 Because of a physica l, mental, or emotional condition, do you have serious difficulty concentrating, remembering, or making decisions No 06/24/2024 3:21 PM EDT Marisela Lamar RN No [facility] 12-02-2023 Cognitive function Voice/Name [facility] Work Phone: 07-27-2023 Cognitive function Awake;Alert;A ppropriate; Follows Commands [facility] Work Phone: 07-27-2023 Cognitive function Voice/Name [facility] Work Phone: 07-25-2023 Cognitive function Voice/Name [facility] Work Phone: Clinical Notes 07-25-2023 to 04-29-2025 Telephone Encounter - Jazzy Arciniega LPN - 04/29/2025 2:51 PM EDTTelephone Encounter - Jazzy Arciniega LPN - 04/29/2025 2:51 PM EDTTelephone Encounter - Sultana Garcia - 04/29/2025 2:37 PM EDT Note Date & Type Note Facility 04-29-2025 Telephone encounter Note I called and spoke to Hope, patient's nurse at [facility]. Patient is scheduled to see nephrology in early June. She also has a CBC drawn every 28 days; Hope will fax the results in July (3 month CBC). Jazzy Arciniega LPN [facility] 04-29-2025 Miscellaneous Notes I called and spoke to Hope, patient's nurse at [facility]. Patient is scheduled to see nephrology in early June. She also has a CBC drawn every 28 days; Hope will fax the results in July (3 month CBC). Jazzy Arciniega LPN Labs reviewed. Hgb has improved at this time to 10.3. No iron deficiency. Kidney function appears to be worsening. At this time she is not a candidate for GURPREET or IV iron. Recommend continuing to follow up with nephrology. Plan to recheck CBC in 3 months for stability. (Orders entered) Pt currently resides in [facility]. I attempted to reach spouse john goncalves busfrancis. No answer on daughter Jeanette's phone (she was present for appt) Case and labs reviewed with Dr Vivas. Sultana Garcia APRN.TAILOR APPRENTICE documented in this encounter [facility] 04-29-2025 Telephone encounter Note Labs reviewed. Hgb has improved at this time to 10.3. No iron deficiency. Kidney function appears to be worsening. At this time she is not a candidate for GURPREET or IV iron. Recommend continuing to follow up with nephrology. Plan to recheck CBC in 3 months for stability. (Orders entered) Pt currently resides in [facility]. I attempted to reach spouse number ivanna busfrancis. No answer on daughter Jeanette's phone (she was present for appt) Case and labs reviewed with Dr Vivas. Sultana Garcia APRN.TAILOR APPRENTICE [facility] 04-22-2025 Telephone encounter Note Labs faxed as directed. Radha Nichols LPN [facility] 04-22-2025 Miscellaneous Notes Labs faxed as directed. Radha Nichols LPN Please fax 04/20 lab results to [facility] at [phone] documented in this encounter [facility] 04-22-2025 Telephone encounter Note Please fax 04/20 lab results to [facility] at [phone] [facility] Work Phone: 04-20-2025 Instructions Sultana Garcia - 04/20/2025 2:09 PM EDT Labs today Follow up pending labs for possible IV iron and aranesp injection documented in this encounter [facility] 04-20-2025 Note HNO ID: [id number] Author: SULTANA GARCIA, ? Service: ? Author Type: Nurse Practitioner Type: Progress Notes Filed: 04/23/2025 15:55 Note Text: Progress Note Zahida Beltre 1955 Encounter date: 04/20/2025 HPI: Zahida Beltre is a 69 year old female with extensive PMH of Kidney failure hx of dialysis for about 6 - 8 months, CAD, subdural hematoma, HTN, Chronic anemia. 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 She is a poor historian, rather tangential. Currently resides in a group home facility since last year. Per chart review she has had significant behavioral changes which appear to have started 12/2024 at which point she changed her name and appearance. Per nephrology notes baseline creatinine is around 3.7. Denies fevers, chills or NS. Reports chronic infections over her lifetime. Recent UTI dx and treated in SNF around April 01. No current abx use. Ice cravings for at least the last year. No appetite. Food provided by facility. She states she was not eating much when she first got there because they were pureeing meals. Prior to admission she was following primarily vegetarian diet. Denies bleeding. No dark or tarry stools. No bony aches or pains. Chronic headaches. Hx of subdural hematoma, following with neuro. No PO iron currently. No known issues. No NSAIDs. No known blood transfusions. Hx of IV iron. Hx of dialysis. No known hx of bleeding disorders. Brother heart attack. Mother had breast cancer, paternal grandmother breast cancer. No personal hx of cancer that she is aware of. PAST MEDICAL HISTORY Diagnosis Date Atrial fibrillation (HCC) Cerebral palsy (HCC) Chronic kidney disease, stage V (HCC) Depression GERD (gastroesophageal reflux disease) HTN (hypertension) Hyperlipemia Muscle weakness (generalized) Osteoarthritis Osteoporosis Traumatic subarachnoid hemorrhage without loss of consciousness (HCC) PAST SURGICAL HISTORY Procedure Laterality Date EXPL LAP W W/WO BX LIGATE FALLOPIAN TUBE REMOVAL GALLBLADDER Current Outpatient Medications Medication Sig Dispense Refill cloNIDine HCl (CATAPRES) 0.3 mg tablet Take 0.3 mg by mouth three times a day. cranberry fruit (CRANBERRY) 450 mg tab Take 450 mg by mouth once daily. famotidine (PEPCID) 20 mg tablet Take 20 mg by mouth daily at bedtime. sodium phosphate,mono-dibasic (FLEET ENEMA GA) 1 suppository by RECTAL route as needed. folic acid/vit B complex and C (KAVIN-MARCELLA PO) Take 1 tablet by mouth once daily. sertraline (ZOLOFT) 50 mg tablet Take 50 mg by mouth once daily. levETIRAcetam (KEPPRA) 500 mg tablet Take 1 tablet by mouth two times a day for 7 doses. 7 tablet 0 sodium bicarbonate 650 mg tablet Take 1 tablet by mouth three times a day. (Patient taking differently: Take 650 mg by mouth before meals and at bedtime.) acetaminophen (TYLENOL) 325 mg tablet Take 650 mg by mouth every 4 hours as needed for fever (specify temp.) or pain. mag hydrox/aluminum hyd/simeth (ANTACID SUSPENSION ORAL) Take 30 mL by mouth every 4 hours as needed (GI distress). atorvastatin (LIPITOR) 40 mg tablet Take 40 mg by mouth daily at bedtime. bisacodyl (DULCOLAX) 10 mg supp 10 mg by RECTAL route once daily as needed for constipation. fenofibrate (LOFIBRA) 67 mg capsule Take 67 mg by mouth daily with breakfast. guaiFENesin 200 mg/5 mL liqd Take 10 mL by mouth every 4 hours as needed (cough, congestion). magnesium oxide 400 mg magnesium tab Take 0.5 tablets by mouth two times a day. (Patient taking differently: Take 1 tablet by mouth two times a day.) melatonin 3 mg tablet Take 3 mg by mouth daily at bedtime. magnesium hydroxide (MILK OF MAGNESIA) 400 mg/5 mL suspension Take 30 mL by mouth once daily as needed for constipation. NIFEdipine ER (PROCARDIA XL) 90 mg 24 hr tablet Take 90 mg by mouth daily at bedtime. nitroglycerin sublingual (NITROQUICK) 0.4 mg SL tablet Dissolve 0.4 mg under the tongue every 5 minutes as needed for chest pain. metoprolol tartrate, short acting, (LOPRESSOR) 100 mg tablet Take 100 mg by mouth two times a day. ergocalciferol 50,000 unit capsule (VITAMIN D2, DRISDOL) Take 1 capsule by mouth one time a week. busPIRone (BUSPAR) 5 mg tablet Take 2.5 mg by mouth two times a day. (Patient not taking: Reported on 04/20/2025) polyethylene glycol 3350 (MIRALAX) 17 gram packet Take 17 g by mouth once daily as needed for constipation. Dissolve dose in 4 - 8 ounces of liquid and take as directed. (Patient not taking: Reported on 04/20/2025) pantoprazole DR (PROTONIX) 40 mg tablet Take 40 mg by mouth daily at 6 am. (Patient not taking: Reported on 04/20/2025) B Complex-Vitamin C-Folic Acid (KAVIN-MARCELLA) 0.8 mg tab Take 1 tablet by mouth once daily. (Patient not taking: Reported on 04/20/2025) sertraline 150 mg capsule Take 150 mg by mouth daily at bedtime. (Patient not taking (more content not included)... [facility] 04-20-2025 History of Presen t illness Narrative Progress Note Zahida Beltre 1955 Encounter date: 04/20/2025 HPI: Zahida Beltre is a 69 year old female with extensive PMH of Kidney failure hx of dialysis for about 6 - 8 months, CAD, subdural hematoma, HTN, Chronic anemia. 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 She is a poor historian, rather tangential. Currently resides in a group home facility since last year. Per chart review she has had significant behavioral changes which appear to have started 12/2024 at which point she changed her name and appearance. Per nephrology notes baseline creatinine is around 3.7. Denies fevers, chills or NS. Reports chronic infections over her lifetime. Recent UTI dx and treated in SNF around April 01. No current abx use. Ice cravings for at least the last year. No appetite. Food provided by facility. She states she was not eating much when she first got there because they were pureeing meals. Prior to admission she was following primarily vegetarian diet. Denies bleeding. No dark or tarry stools. No bony aches or pains. Chronic headaches. Hx of subdural hematoma, following with neuro. No PO iron currently. No known issues. No NSAIDs. No known blood transfusions. Hx of IV iron. Hx of dialysis. No known hx of bleeding disorders. Brother heart attack. Mother had breast cancer, paternal grandmother breast cancer. No personal hx of cancer that she is aware of. PAST MEDICAL HISTORY Diagnosis Date Atrial fibrillation (HCC) Cerebral palsy (HCC) Chronic kidney disease, stage V (HCC) Depression GERD (gastroesophageal reflux disease) HTN (hypertension) Hyperlipemia Muscle weakness (generalized) Osteoarthritis Osteoporosis Traumatic subarachnoid hemorrhage without loss of consciousness (HCC) PAST SURGICAL HISTORY Procedure Laterality Date EXPL LAP W W/WO BX LIGATE FALLOPIAN TUBE REMOVAL GALLBLADDER Current Outpatient Medications Medication Sig Dispense Refill cloNIDine HCl (CATAPRES) 0.3 mg tablet Take 0.3 mg by mouth three times a day. cranberry fruit (CRANBERRY) 450 mg tab Take 450 mg by mouth once daily. famotidine (PEPCID) 20 mg tablet Take 20 mg by mouth daily at bedtime. sodium phosphate,mono-dibasic (FLEET ENEMA GA) 1 suppository by RECTAL route as needed. folic acid/vit B complex and C (KAVIN-MARCELLA PO) Take 1 tablet by mouth once daily. sertraline (ZOLOFT) 50 mg tablet Take 50 mg by mouth once daily. levETIRAcetam (KEPPRA) 500 mg tablet Take 1 tablet by mouth two times a day for 7 doses. 7 tablet 0 sodium bicarbonate 650 mg tablet Take 1 tablet by mouth three times a day. (Patient taking differently: Take 650 mg by mouth before meals and at bedtime.) acetaminophen (TYLENOL) 325 mg tablet Take 650 mg by mouth every 4 hours as needed for fever (specify temp.) or pain. mag hydrox/aluminum hyd/simeth (ANTACID SUSPENSION ORAL) Take 30 mL by mouth every 4 hours as needed (GI distress). atorvastatin (LIPITOR) 40 mg tablet Take 40 mg by mouth daily at bedtime. bisacodyl (DULCOLAX) 10 mg supp 10 mg by RECTAL route once daily as needed for constipation. fenofibrate (LOFIBRA) 67 mg capsule Take 67 mg by mouth daily with breakfast. guaiFENesin 200 mg/5 mL liqd Take 10 mL by mouth every 4 hours as needed (cough, congestion). magnesium oxide 400 mg magnesium tab Take 0.5 tablets by mouth two times a day. (Patient taking differently: Take 1 tablet by mouth two times a day.) melatonin 3 mg tablet Take 3 mg by mouth daily at bedtime. magnesium hydroxide (MILK OF MAGNESIA) 400 mg/5 mL suspension Take 30 mL by mouth once daily as needed for constipation. NIFEdipine ER (PROCARDIA XL) 90 mg 24 hr tablet Take 90 mg by mouth daily at bedtime. nitroglycerin sublingual (NITROQUICK) 0.4 mg SL tablet Dissolve 0.4 mg under the tongue every 5 minutes as needed for chest pain. metoprolol tartrate, short acting, (LOPRESSOR) 100 mg tablet Take 100 mg by mouth two times a day. ergocalciferol 50,000 unit capsule (VITAMIN D2, DRISDOL) Take 1 capsule by mouth one time a week. busPIRone (BUSPAR) 5 mg tablet Take 2.5 mg by mouth two times a day. (Patient not taking: Reported on 04/20/2025) polyethylene glycol 3350 (MIRALAX) 17 gram packet Take 17 g by mouth once daily as needed for constipation. Dissolve dose in 4 - 8 ounces of liquid and take as directed. (Patient not taking: Reported on 04/20/2025) pantoprazole DR (PROTONIX) 40 mg tablet Take 40 mg by mouth daily at 6 am. (Patient not taking: Reported on 04/20/2025) B Complex-Vitamin C-Folic Acid (KAVIN-MARCELLA) 0.8 mg tab Take 1 tablet by mouth once daily. (Patient not taking: Reported on 04/20/2025) sertraline 150 mg capsule Take 150 mg by mouth daily at bedtime. (Patient not taking: Reported on 04/20/2025) cloNIDine HCl (CATAPRES) 0.2 mg tablet Take 0.2 mg by mouth three times a day. (Patient not taking: Reported on 04/20/2025) lisinopril (ZESTRIL) 40 mg tablet Take 40 mg by mouth two times a day. (Patient not taking: Reported on 04/20/2025) multivitamin (TAB A MARCELLA ORAL) Take 1 tablet by mouth once daily. (Patient not taking: Reported on 04/20/2025) No current facility-administered medications for this visit. ALLERGIES Allergen Reactions Amlodipine Other: See Comments Aspartame Other: See Comments Extremely thirsty FAMILY HISTORY Problem Relation Age of Onset Hypertension Mother Diabetes Mother Heart Mother Heart Father Hypertension Father Diabetes Brother Diabetes Brother SOCIAL HISTORY[1] Review of Systems: Negative except as noted in HPI reviewed 04/20/2025 Physical Exam: BP 123/78 Pulse 67 Temp (Src) 97.9 (Temporal) Ht 5' 1.5 (1.56m) Wt 158 lb (71.7kg) SpO2 95% BMI 29.37 kg/(m^2). General: Age-appropriate well developed. HEENT: Normocephalic, no sclera icterus, external ears normal, oral cavity clear. Chest: Clear bilaterally, no wheezes, not labored. Heart: Normal S1 and S2, no abnormal sounds Abdomen: Soft, nontender, nondistended, bowel sounds present Extremities: No cyanosis, clubbing, gross deformities Neurological: Cranial nerves II through XII are intact bilaterally,no focal deficits. Skin: Warm and dry with no rashes or ulcerations. Hematologic: no bruising or petechiae. Psychiatric: Alert and oriented x3. I have performed the physical exam today (04/20/2025) and have edited the note to correlate with current findings. Lab Results Component Value Date WBC 7.86 06/24/2024 HB 8.5 (L) 06/24/2024 MCV 96.1 06/24/2024 PLT 161 06/24/2024 Lab Results Component Value Date NA 137 06/24/2024 K 4.3 06/24/2024 CO2 20 (L) 06/24/2024 BUN 45 (H) 06/24/2024 CREAT 3.18 (H) 06/24/2024 Assessment and Plan: Ms. Beltre is a pleasant 69 year old woman presenting as a new anemia referral by her hydraulic operator Dr Marie Anemia, chronic - likely multifactorial CKD/kidney failure, malabsorption, etc - OSH chart reviewed. Baseline hgb appears to be around 10. - has a recent hx of dialysis was discontinued a few months ago. She does have a hx of IV iron use - discussed need for repeat labs with patient and daughter today. - follow up pending labs for possible IV iron and aranesp injection Sultana Garcia APRN.TAILOR APPRENTICE I spent a total of 60 minutes on the date of the service which included preparing to see the patient, [id number] patient care, completing clinical documentation, obtaining and/or reviewing separately obtained history, performing a medically appropriate examination, and counseling and educating the patient/family/caregiver. Portions of this note including HPI, ROS, impression/plan may have been copied forward as to provide important historical information essential in contributing to medical decision making. Documentation has been reviewed and edited as necessary to support clinical decision making for today's visit and to reflect my own independent evaluation of this patient. [1] Social History Tobacco Use Smoking status: Never Smokeless tobacco: Never Vaping Use Vaping status: Never Used Substance Use Topics Alcohol use: Not Currently Drug use: Not Currently documented in this encounter [facility] 07-22-2024 Note [facility] 06-22-2024 History of Presen t illness Narrative [facility] Outpatient Parenteral Antimicrobial Therapy (OPAT) Start Form Patient Info Patient MRN Patient Name Address Date of [id number] Kary Haddad [address] [facility] [place] [id number] 1955 Start Date 06/22/2024 Physician Group Cc_phi Diagnosis Group Diagnosis Genitourinary: Cystitis Micro-organism IV Antibiotics Antibiotic Dose Frequency Stop Date Ertapenem 500 mg every 24 hours 06/27/2024 Lab Monitoring Plan Labs Frequency While on CBC/diff Creatinine Liver Function Tests every Saturday every Saturday every Saturday Ertapenem Ertapenem Ertapenem OPAT Pharmacy Consult Yes Cath Care Protocol Flush IV line with 10 mL of normal saline (0.9%) before and after each dose of medication or at a minimum once daily. Flush IV line with 10-20 mL of normal saline (0.9%) after lab draw. Labs may be drawn on Saturday if Saturday is a holiday. Follow up Provider Follow up date/time Appointment type OTHER In-person Provider Monitoring Treatment Course Kee Singh III, MD Address [address] [place] [address] documented in this encounter [facility] 03-23-2024 History and physical note HISTORY AND PHYSICAL EXAMINATION SERVICE DATE: 03/23/2024 SERVICE TIME: 11:06 AM PRIMARY CARE PHYSICIAN: Awa Hargrove DO REASON FOR VISIT: The reason for this visit is To perform a comprehensive review of the patients past medical history, assess their current health status and obtain any additional testing required based on anesthesia guidelines. To assess and identify potential anesthesia problems, particularly those that may suggest potential complications or contraindications to the planned procedure. The patient has the following: ACTIVE PROBLEM LIST Left Knee Pain Adrenal Nodule (Hcc) Duodenal Ulcer With Hemorrhage Pre-Op Examination Coronary Artery Disease Involving [place] Coronary Artery of [place] Heart Without Angina Pectoris Htn (Hypertension) Mixed Hyperlipidemia Subjective CHIEF COMPLAINT: Preoperative Examination HPI: Patient present to [facility] for the above procedure. Patient here for routine Upper GI Endoscopy screening. Patient had an EGD in December in [place]. This demonstrated an adrenal nodule that was concerning for adrenal adenoma. Patient denies any N/V/D or constipation. Denies any abdominal pain. Denies any melena, hematochezia, or hematemesis. Patient denies any other problems at this time. Denies any family history of colon cancer or other gastric cancer. Patient is agreeable to planned procedure. METS: Walk a block or two on level ground (2.75 METs) Patient denies any CP/SOB with above activity. PAST MEDICAL HISTORY Diagnosis Date Cerebral palsy (HCC) HTN (hypertension) PAST SURGICAL HISTORY Procedure Laterality Date EXPL LAP W W/WO BX LIGATE FALLOPIAN TUBE REMOVAL GALLBLADDER History reviewed. No pertinent family history. SOCIAL HISTORY: Social History Tobacco Use Smoking status: Never Smokeless tobacco: Never Vaping Use Vaping Use: Never used Substance Use Topics Alcohol use: Not Currently Drug use: Not Currently Prior to Admission medications as of 03/23/24 1117 Medication Sig Last Dose Taking metoprolol tartrate, short acting, (LOPRESSOR) 100 mg tablet Take 100 mg by mouth two times a day. 03/23/2024 Yes cloNIDine HCl (CATAPRES) 0.3 mg tablet Take 0.3 mg by mouth three times a day. 03/23/2024 Yes lisinopril (ZESTRIL) 40 mg tablet Take 40 mg by mouth two times a day. 03/23/2024 Yes spironolactone (ALDACTONE) 25 mg tablet Take 1 tablet by mouth every afternoon. 03/22/2024 Yes Fenofibrate (LOFIBRA) 54 mg tablet Take 54 mg by mouth once daily. 03/23/2024 Yes ergocalciferol 50,000 unit capsule (VITAMIN D2, DRISDOL) Take 1 capsule by mouth one time a week. Past Week Yes multivitamin (TAB A MARCELLA ORAL) Take 1 tablet by mouth once daily. 03/23/2024 Yes iv contrast (will be provided with radiology test) CT ABD/PEL -Inject, intravenously, once for 1 dose.No IV access, insert saline lock prior to the beginning of sedation, infusion, injection of imaging exam. Discontinue saline lock post exam. If Pt. has a central line or IVAD, may access for administration according to line specific nursing protocol. Once exam is complete flush line and de-access according to line specific nursing protocol in the CT contrast administration guidelines link. enteric contrast (will be provided with radiology test) For CT ABD/PEL W IVCON Routine order Administer, As Directed One Time Only, via Oral, Rectal, both Oral and Rectal, Enteric Tube, Stoma or Indwelling Catheter, Enteric Contrast as designated per enteric contrast guidelines No medication comments found. ALLERGIES Allergen Reactions Amlodipine Other: See Comments REVIEW OF SYSTEMS: PAIN ASSESSMENT: Pain Pain Level: 4 Acceptable level: 4 Pain Location: Back Pain Assessment: Assessment Description: Aching Duration: Continuous Intervention/Comfort measure: Emotional Support/Reassurance Tool: Verbal (Numeric Rating or Visual Analog Scale) General: Denies fever, chills, and unexpected weight change. Neuro: Denies dizziness and headaches. Respiratory: Denies SOB. Cardiovascular: Denies CP and palpitations. +HTN +HLD +hx of MA +CAD GI: See HPI. : Denies dysuria. Endocrine: No history of diabetes or thyroid conditions. Hematology: Denies history of bleeding or clotting disorder. No known autoimmune disorders. Psych: Denies anxiety/depression. Musculoskeletal: Denies joint pain and swelling. Skin: Denies open sores and rashes. Objective PHYSICAL EXAM: VITALS: BP 122/75 Pulse 59 Temp (Src) 98.2 (Temporal) Resp 14 SpO2 97% O2 Therapy: Room Air General: NAD. Cooperative. Skin: Skin is warm, no rashes, and no open sores. HEENT: Normocephalic. Cardiovascular: Normal S1 & S2. No murmur. Lungs: CTA Bilaterally. No respiratory distress. Abdomen: Soft. Pos BS x4quad Extremities: No edema. Neurological: Alert and oriented to person, place, and time. Pulses: radial pulses +2 Diagnostic tests reviewed for today's visit: Lab Value Units Date High Low HB No results within date range. HCT No results within date range. WBC No results within date range. PLT No results within date range. NA 137 mmol/L 03/02/2024 144 136 K 4.6 mmol/L 03/02/2024 5.1 3.7 GLUC 151 mg/dL 03/02/2024 99 74 BUN 47 mg/dL 03/02/2024 21 7 CREAT 1.42 mg/dL 03/02/2024 0.96 0.58 PTSEC No results within date range. INR No results within date range. APTT No results within date range. ALT No results within date range. AST No results within date range. TBILI No results within date range. TSH No results within date range. Lab Value Units Date High Low HCGQT No results within date range. UHCG No results within date range. HCG, BODY* No results within date range. Lab Value Units Date High Low ABORHD No results within date range. ABSCREEN No results within date range. No results found for: HBA1C Assessment/Plan Patient has the following medical conditions which may affect marco-operative course Problem List Items Addressed This Visit Cardiovascular Mixed hyperlipidemia Current Assessment & Plan Fenofibrate- last dose taken today. Continue as prescribed. HTN (hypertension) Current Assessment & Plan Lisinopril, Clonidine, Spironolactone, and Metoprolol- last doses taken today. Continue as prescribed. Coronary artery disease involving [place] coronary artery of [place] heart without angina pectoris Current Assessment & Plan MA in 07/2023. No cardiac stents. Does not follow with cardiology. Managed by PCP. Patient has all medical care in [place]- unable to access any cardiac imaging through [facility] or Care Everywhere. Gastrointestinal Duodenal ulcer with hemorrhage Relevant Orders EGD DIAGNOSTIC Oncology Adrenal nodule (HCC) Current Assessment & Plan EGD today. Other Pre-op examination - Primary Current Assessment & Plan see note for medical conditions which may affect marco-operative course that were addressed at today's visit. Diagnosis: Duodenal ulcer with hemorrhage [K26.4] Planned Procedure: EGD The Following Tests/Procedures Have Been Initiated: IV start and Maintenance fluid for the procedure. ANESTHESIA FINDINGS: Significant Anesthesia Considerations: None Planned Anesthetic: MAC I spent a total of 20 minutes on the date of the service which included preparing to see the patient, [id number] patient care, completing clinical documentation, and performing a medically appropriate examination. Instructions Given to Patient: Patient given verbal preop instructions and voices comprehension and compliance. SIGNATURE: Noemy Jaramillo APRN.CNP PATIENT NAME: Kary Haddad DATE: March 23, 2024 TIME: 10:48 AM PAGER/CONTACT #: [facility] 03-23-2024 History and physical note HISTORY AND PHYSICAL EXAMINATION SERVICE DATE: 03/23/2024 SERVICE TIME: 11:06 AM PRIMARY CARE PHYSICIAN: Awa Hargrove DO REASON FOR VISIT: The reason for this visit is To perform a comprehensive review of the patients past medical history, assess their current health status and obtain any additional testing required based on anesthesia guidelines. To assess and identify potential anesthesia problems, particularly those that may suggest potential complications or contraindications to the planned procedure. The patient has the following: ACTIVE PROBLEM LIST Left Knee Pain Adrenal Nodule (Hcc) Duodenal Ulcer With Hemorrhage Pre-Op Examination Coronary Artery Disease Involving [place] Coronary Artery of [place] Heart Without Angina Pectoris Htn (Hypertension) Mixed Hyperlipidemia Subjective CHIEF COMPLAINT: Preoperative Examination HPI: Patient present to [facility] for the above procedure. Patient here for routine Upper GI Endoscopy screening. Patient had an EGD in December in [place]. This demonstrated an adrenal nodule that was concerning for adrenal adenoma. Patient denies any N/V/D or constipation. Denies any abdominal pain. Denies any melena, hematochezia, or hematemesis. Patient denies any other problems at this time. Denies any family history of colon cancer or other gastric cancer. Patient is agreeable to planned procedure. METS: Walk a block or two on level ground (2.75 METs) Patient denies any CP/SOB with above activity. PAST MEDICAL HISTORY Diagnosis Date Cerebral palsy (HCC) HTN (hypertension) PAST SURGICAL HISTORY Procedure Laterality Date EXPL LAP W W/WO BX LIGATE FALLOPIAN TUBE REMOVAL GALLBLADDER History reviewed. No pertinent family history. SOCIAL HISTORY: Social History Tobacco Use Smoking status: Never Smokeless tobacco: Never Vaping Use Vaping Use: Never used Substance Use Topics Alcohol use: Not Currently Drug use: Not Currently Prior to Admission medications as of 03/23/24 1117 Medication Sig Last Dose Taking metoprolol tartrate, short acting, (LOPRESSOR) 100 mg tablet Take 100 mg by mouth two times a day. 03/23/2024 Yes cloNIDine HCl (CATAPRES) 0.3 mg tablet Take 0.3 mg by mouth three times a day. 03/23/2024 Yes lisinopril (ZESTRIL) 40 mg tablet Take 40 mg by mouth two times a day. 03/23/2024 Yes spironolactone (ALDACTONE) 25 mg tablet Take 1 tablet by mouth every afternoon. 03/22/2024 Yes Fenofibrate (LOFIBRA) 54 mg tablet Take 54 mg by mouth once daily. 03/23/2024 Yes ergocalciferol 50,000 unit capsule (VITAMIN D2, DRISDOL) Take 1 capsule by mouth one time a week. Past Week Yes multivitamin (TAB A MARCELLA ORAL) Take 1 tablet by mouth once daily. 03/23/2024 Yes iv contrast (will be provided with radiology test) CT ABD/PEL -Inject, intravenously, once for 1 dose.No IV access, insert saline lock prior to the beginning of sedation, infusion, injection of imaging exam. Discontinue saline lock post exam. If Pt. has a central line or IVAD, may access for administration according to line specific nursing protocol. Once exam is complete flush line and de-access according to line specific nursing protocol in the CT contrast administration guidelines link. enteric contrast (will be provided with radiology test) For CT ABD/PEL W IVCON Routine order Administer, As Directed One Time Only, via Oral, Rectal, both Oral and Rectal, Enteric Tube, Stoma or Indwelling Catheter, Enteric Contrast as designated per enteric contrast guidelines No medication comments found. ALLERGIES Allergen Reactions Amlodipine Other: See Comments REVIEW OF SYSTEMS: PAIN ASSESSMENT: Pain Pain Level: 4 Acceptable level: 4 Pain Location: Back Pain Assessment: Assessment Description: Aching Duration: Continuous Intervention/Comfort measure: Emotional Support/Reassurance Tool: Verbal (Numeric Rating or Visual Analog Scale) General: Denies fever, chills, and unexpected weight change. Neuro: Denies dizziness and headaches. Respiratory: Denies SOB. Cardiovascular: Denies CP and palpitations. +HTN +HLD +hx of [place] +CAD GI: See HPI. : Denies dysuria. Endocrine: No history of diabetes or thyroid conditions. Hematology: Denies history of bleeding or clotting disorder. No known autoimmune disorders. Psych: Denies anxiety/depression. Musculoskeletal: Denies joint pain and swelling. Skin: Denies open sores and rashes. Objective PHYSICAL EXAM: VITALS: BP 122/75 Pulse 59 Temp (Src) 98.2 (Temporal) Resp 14 SpO2 97% O2 Therapy: Room Air General: NAD. Cooperative. Skin: Skin is warm, no rashes, and no open sores. HEENT: Normocephalic. Cardiovascular: Normal S1 & S2. No murmur. Lungs: CTA Bilaterally. No respiratory distress. Abdomen: Soft. Pos BS x4quad Extremities: No edema. Neurological: Alert and oriented to person, place, and time. Pulses: radial pulses +2 Diagnostic tests reviewed for today's visit: Lab Value Units Date High Low HB No results within date range. HCT No results within date range. WBC No results within date range. PLT No results within date range. NA 137 mmol/L 03/02/2024 144 136 K 4.6 mmol/L 03/02/2024 5.1 3.7 GLUC 151 mg/dL 03/02/2024 99 74 BUN 47 mg/dL 03/02/2024 21 7 CREAT 1.42 mg/dL 03/02/2024 0.96 0.58 PTSEC No results within date range. INR No results within date range. APTT No results within date range. ALT No results within date range. AST No results within date range. TBILI No results within date range. TSH No results within date range. Lab Value Units Date High Low HCGQT No results within date range. UHCG No results within date range. HCG, BODY* No results within date range. Lab Value Units Date High Low ABORHD No results within date range. ABSCREEN No results within date range. No results found for: HBA1C Assessment/Plan Patient has the following medical conditions which may affect marco-operative course Problem List Items Addressed This Visit Cardiovascular Mixed hyperlipidemia Current Assessment & Plan Fenofibrate- last dose taken today. Continue as prescribed. HTN (hypertension) Current Assessment & Plan Lisinopril, Clonidine, Spironolactone, and Metoprolol- last doses taken today. Continue as prescribed. Coronary artery disease involving [place] coronary artery of [place] heart without angina pectoris Current Assessment & Plan MA in 07/2023. No cardiac stents. Does not follow with cardiology. Managed by PCP. Patient has all medical care in [place]- unable to access any cardiac imaging through [facility] or Care Everywhere. Gastrointestinal Duodenal ulcer with hemorrhage Relevant Orders EGD DIAGNOSTIC Oncology Adrenal nodule (HCC) Current Assessment & Plan EGD today. Other Pre-op examination - Primary Current Assessment & Plan see note for medical conditions which may affect marco-operative course that were addressed at today's visit. Diagnosis: Duodenal ulcer with hemorrhage [K26.4] Planned Procedure: EGD The Following Tests/Procedures Have Been Initiated: IV start and Maintenance fluid for the procedure. ANESTHESIA FINDINGS: Significant Anesthesia Considerations: None Planned Anesthetic: MAC I spent a total of 20 minutes on the date of the service which included preparing to see the patient, [id number] patient care, completing clinical documentation, and performing a medically appropriate examination. Instructions Given to Patient: Patient given verbal preop instructions and voices comprehension and compliance. SIGNATURE: Noemy Jaramillo APRN.CNP PATIENT NAME: Kary Haddad DATE: March 23, 2024 TIME: 10:48 AM PAGER/CONTACT #: documented in this encounter [facility] 03-06-2024 History of Presen t illness Narrative Radiology Service Progress Note DATE OF SERVICE: March 06, 2024 TIME: 4:12 PM PATIENT IDENTITY VERIFICATION COMPLETED USING TWO (2) STANDARD IDENTIFIERS: Name and Date of confirmed by patient verbally. FALL SCREENING: Has the patient had 2 falls in the last year or 1 fall with injury or currently using an Ambulatory Assistive Device (Walker, Cane, Wheelchair, Crutches, etc.)? No PATIENT GENDER DATA: Female. status: : No status: NO. PATIENT RELEVANT IMPLANT DATA REVIEWED: Yes PATIENT PRESENTS WITH AN IMPLANTABLE OR ATTACHED HONEY EXTRACTOR: No ALLERGIES: Reviewed and unchanged CONTRAST ALLERGY: NO. EXAM: CT -CONTRAST INDUCED NEPHROPATHY RISK FACTORS: Patient age > 60 years CREATININE: Creatinine Date Value Ref Range Status 03/02/2024 1.42 (H) 0.58 - 0.96 mg/dL Final Estimated Glomerular Filtration Rate Date Value Ref Range Status 03/02/2024 40 (L) >=60 mL/min/1.73m Final Comment: Estimated Glomerular Filtration Rate (eGFR) is calculated using the 2020 CKD-EPI creatinine equation. This equation utilizes serum creatinine, sex, and age as parameters. The creatinine assay has traceable calibration to isotope dilution-mass spectrometry. Refer to KDIGO guidelines for clinical interpretation. In patients with unstable renal function, e.g. those with acute kidney injury, the eGFR may not accurately reflect actual GFR. P.O.C.T. RESULTS: POC done: Yes, See Lab Tab March 06, 2024 TREATMENT: N/A PERIPHERAL IV DATA: Ambulatory: A peripheral IV was started in the Left antecubital site with a Angio cath: 22 gauge. RADIOLOGY DEPARTMENT: CT; Exam(s) Completed: Abdomen/Pelvis SIGNATURE: RT Anton(R) PATIENT NAME: Kary Haddad DATE: March 06, 2024 TIME: 4:12 PM documented in this encounter [facility] 12-03-2023 Consult note Note Date/Time December 03, 2023 10:02am [facility] Medical Records Department [address] [place] [address] Counseling Note - Pharmacy 12/03/23 1002 MR#: [id number] Acct: [id number] Name: KARY HADDAD Rep #:[id number] : 1955 68 From: Bhaskar Grimes PCP: Dr. Awa Hargrove, DO Status:ADM IN [id number] Service has performed discharge medication reconciliation and counseling for this patient. The patient's discharge medication list was reviewed for discrepancies and discrepancies were resolved. The patient was counseled on the following discharge medications and changes in medications for homegoing were reviewed. The Reason for Use, instructions for use, and potential side effects were reviewed for all new medications. The patient's questions regarding all of their medications were answered. 1. Pantoprazole 40 mg PO daily x 2 months 2. Sucralfate 1 gram PO 4x/day x 2 weeks The patient was able to verbally demonstrate an understanding of their dischargemedications. Medications at Discharge Home Medications clonidine HCl 0.3 mg tablet 0.3 mg PO Q8H BP 07/25/23 ergocalciferol (vitamin D2) 1,250 mcg (50,000 unit) capsule (Vitamin D2) 50,000 unit PO QWEEK supplement 07/25/23 fenofibrate 54 mg tablet 54 mg PO DAILY CHOLESTEROL 07/25/23 lisinopril 40 mg tablet 40 mg PO BID BP 07/25/23 metoprolol tartrate 100 mg tablet 100 mg PO Q12H BP 07/25/23 multivitamin with folic acid 400 mcg tablet (Tab-A-Marcella) 1 tab PO DAILY supplement 07/25/23 spironolactone 25 mg tablet 25 mg PO DAILY DIURESIS 07/25/23 pantoprazole 40 mg tablet,delayed release (Protonix) 40 mg PO DAILY #60 tabs 12/03/23 sucralfate 1 gram tablet 1 g PO 1HR_ACHS 14 days #56 tabs 12/03/23 12/03/23 1002 <Electronically signed by Bhaskar martínez> Date _ Bhaskar Grimes Cosigner Signature (if applicable): Date CC: ~ Signed [facility] Work Phone: [phone]) 443-495504-02-2024 Discharge summary Author Ronald Lowe [facility] December 03, 2023 8:59am Note Date/Time December 03, 2023 8:56 am [facility] Medical Records Department [address] [place] [address] Discharge Summary 12/03/23 0854 MR#: [id number] Acct: [id number] Name: KARY HADDAD Rep #:[id number] : 1955 68 From: Ronald Lowe MD PCP: Dr. Awa Hargrove DO Status:ADM IN Location: [address] Providers Date of Admission: 12/01/23 Date of Discharge: 12/03/23 Primary Care Physician: Dr. Awa Hargrove DO Consultations 12/01/23 16:24 Consult: General Surgery Routine Consulting Provider: Jules Hudson Reason for Consult: duodenal mass EMERGENT Consult: No MD Notified: Yes Date Notified: 12/01/23 Time Notified: 14:35 Method of Notification: ED Physician Initiated Reason For Visit: DUODENAL MASS Diagnosis Discharge Diagnosis (1) Duodenal ulcer: Status: Acute Code(s): K26.9 - Duodenal ulcer, unspecified as acute or chronic, without hemorrhage or perforation Plan Patient is a 68-year-old lady who presented with abdominal and back pain as wellas black tarry stools. 1. Suspected upper GI bleed ? Patient was started on Protonix consult placed to general surgery for possibleendoscopic evaluation ? Endoscopic evaluation performed on 12/02/2023. Findings and recommendations as below Impressions : - Reflux esophagitis with no bleeding. - Normal stomach. - Non-bleeding duodenal ulcer with no stigmata of bleeding. Biopsied. Recommendations : - [facility]. - Use Prilosec (omeprazole) 40 mg PO daily for 2 months. - Use sucralfate tablets 1 gram PO QID for [address] ? CT of the abdomen and pelvis was concerning for appendicolith patient however did not have symptoms consistent with the finding. General surgery on board 3. Hypertension - Blood pressure controlled, home medications continued with dose adjustment as needed 4. Dyslipidemia ? Patient is on fenofibrate, held on admission 5. Cerebral palsy ? Supportive care 6. Coronary artery disease ? No ischemic symptoms on admission 7. DVT prophylaxis ? Bilateral SCDs for now given patient's presentation on admission Time spent in the patient's overall evaluation,decision-making process, review of diagnostic data, adjustment of management, discussion with other providers, nursing nursing and ancillary staff involved in patient's care documentation, 50 Minutes Medications at Discharge Home Medications clonidine HCl 0.3 mg tablet 0.3 mg PO Q8H BP 07/25/23 ergocalciferol (vitamin D2) 1,250 mcg (50,000 unit) capsule (Vitamin D2) 50,000 unit PO QWEEK supplement 07/25/23 fenofibrate 54 mg tablet 54 mg PO DAILY CHOLESTEROL 07/25/23 lisinopril 40 mg tablet 40 mg PO BID BP 07/25/23 metoprolol tartrate 100 mg tablet 100 mg PO Q12H BP 07/25/23 multivitamin with folic acid 400 mcg tablet (Tab-A-Marcella) 1 tab PO DAILY supplement 07/25/23 spironolactone 25 mg tablet 25 mg PO DAILY DIURESIS 07/25/23 pantoprazole 40 mg tablet,delayed release (Protonix) 40 mg PO DAILY #60 tabs 12/03/23 sucralfate 1 gram tablet 1 g PO 1HR_ACHS 14 days #56 tabs 12/03/23 Hospital Course Summary of Care Provided Minutes Spent on Discharge: 32 Physical Exam Narrative GENERAL: cooperative HEENT: Atraumatic; normocephalic EYES; Anicteric, Normal Conjunctiva NECK; supple, normal thyroid, RESPIRATORY: Diminished to auscultation CARDIOVASCULAR: Regular S1 S2, GI: soft, normoactive bowel sounds, : No Renal angle tenderness; EXTREMITIES: No edema, no clubbing, MUSCULOSKELETAL: no muscle wasting NEURO: Awake; no lateralizing signs. SKIN: No Rash PSYCH; Flat affect Weight / BMI Weight Weight: 74.072 kg Body Mass Index (BMI) 30.8 ABG / Lab / Microbiology Data 12/03/23 05:45 12/03/23 05:45 Laboratory: Laboratory Results - last 24 hr 12/03/23 05:45: WBC 6.9, RBC 3.27 L, Hgb 9.5 L, Hct 29.8 L, MCV 91.1, MCH 29.1, MCHC 31.9 L, RDW Std Deviation 46.1 H, RDW Coeff of Rory 13.7, Plt Count 276, MPV11.5, Immature Gran % (Auto) 0.400, Neut % (Auto) 57.9, Lymph % (Auto) 26.7, Tillman % (Auto) 9.9, Eos % (Auto) 4.4, Baso % (Auto) 0.7, Absolute Neuts (auto) 4.0, Absolute Lymphs (auto) 1.83, Nucleated RBC % 0, Sodium 143, Potassium 4.1, Chloride 117 H, Carbon Dioxide 20.0 L, Anion Gap 6, BUN 23 H, Creatinine 1.42 H,Estim Creat Clear Calc 33.93, Est GFR (MDRD) Af Amer 47 L, Est GFR (MDRD) Non-Af39 L, BUN/Creatinine Ratio 16.2, Glucose 105, Calcium 8.6, Phosphorus 2.4 L, Magnesium 1.6 Microbiology: Microbiology 12/01/23 13:00 Stool Stool Occult Blood (ABRAHAM) - Final D/C Instructions Discharge Diet: No restrictions Discharge Activity: Return to Normal Activity Call your doctor if you observe: Fever of 101 or Higher, Shortness of breath, Fainting spells and Chest pain Meaningful Use Info Meaningful Use Diagnoses (Choose all that apply): None applicable Discharge Plan Admission Admit Date/Time: 12/01/23 14:32 Attending Provider: Ronald Lowe Primary Care Provider: Awa Hargrove Consulting Providers: Jules Hudson; Claudy Munoz Discharge Orders/Prescriptions Prescriptions: New sucralfate 1 gram Tablet 1 g PO 1HR_ACHS 14 Days Qty: 56 0RF pantoprazole [Protonix] 40 mg tablet,delayed release (DR/EC) 40 mg PO DAILY Qty: 60 0RF Continued metoprolol tartrate 100 mg tablet 100 mg PO Q12H Patient Comments: TAKE 1 TABLET BY MOUTH TWICE DAILY clonidine HCl 0.3 mg tablet 0.3 mg PO Q8H Patient Comments: TAKE 1 TABLET BY MOUTH THREE TIMES DAILY lisinopril 40 mg tablet 40 mg PO BID Patient Comments: TAKE 1 TABLET BY MOUTH TWICE DAILY spironolactone 25 mg tablet 25 mg PO DAILY Patient Comments: TAKE 1 TABLET BY MOUTH EVERY DAY fenofibrate 54 mg tablet 54 mg PO DAILY Patient Comments: TAKE 1 TABLET BY MOUTH EVERY DAY ergocalciferol (vitamin D2) [Vitamin D2] 1,250 mcg (50,000 unit) capsule 50,000 unit PO QWEEK multivitamin with folic acid [Tab-A-Marcella] 400 mcg tablet 1 tab PO DAILY Referrals / Follow Up: Jules Hudson MD [Med Staff - Active Staff] - Within 1 Month Awa Hargrove DO [Primary Care Provider] - Within 2 Weeks Disposition Disposition (needs filled in before D/C Order can be placed): Home, Self Care Charges/Coding Visit Charges Inpatient E&M: 64031 Disch Hosp >30min 12/03/23 0859 <Electronically signed by Ronald Lowe MD> Cosigner Signature (if applicable): CC: Dr. Ronald Lowe MD; Dr. Awa Hargrove DO~ Signed [facility] Work Phone: 1(212) 511-336304-02-2024 Progress note Author uJles Hudson [facility] December 03, 2023 7:00am Note Date/Time December 03, 2023 7:01 am [facility] Medical Records Department [address] [place] [address] Progress Note - Surgery 12/03/23 0659 MR#: [id number] Acct: [id number] Name: KARY HADDAD Rep #:[id number] : 1955 68 From: Jules pope MD PCP: Dr. Awa Hargrove DO Status:ADM IN Location: MS3 ER115-7 Subjective Subjective The patient reported that she tolerated full liquids yesterday. She is not having any abdominal pain today. Objective Data Objective Data Vital Signs: Vital Signs Temp Pulse Resp BP Pulse Ox O2 Del Method 98.3 F 63 16 116/59 L 96 Room Air 12/03/23 05:12 12/03/23 05:12 12/03/23 05:12 12/03/23 05:12 12/03/23 05:12 12/03/23 05:12 Oxygen Delivery Method Room Air Weight: 163 lb 4.8 oz Body Mass Index (BMI) 30.8 Intake & Output: Intake and Output for Last 24 Hours 12/01/23 12/02/23 12/03/23 23:59 23:59 23:59 Intake Total 2810 / 3010 2200 / 2400 400 / 400 Balance 2810 / 3010 2200 / 2400 400 / 400 Lab / Micro Data 12/03/23 05:45 12/02/23 03:45 Labs: Laboratory Results - last 24 hr 12/03/23 05:45: WBC 6.9, RBC 3.27 L, Hgb 9.5 L, Hct 29.8 L, MCV 91.1, MCH 29.1, MCHC 31.9 L, RDW Std Deviation 46.1 H, RDW Coeff of Rory 13.7, Plt Count 276, MPV11.5, Immature Gran % (Auto) 0.400, Neut % (Auto) 57.9, Lymph % (Auto) 26.7, Tillman % (Auto) 9.9, Eos % (Auto) 4.4, Baso % (Auto) 0.7, Absolute Neuts (auto) 4.0, Absolute Lymphs (auto) 1.83, Nucleated RBC % 0 Micro: Microbiology 12/01/23 13:00 Stool Stool Occult Blood (ABRAHAM) - Final Physical Exam Const oriented x3 and no apparent distress Resp normal respiratory effort GI soft to palpation and non-tender Assessment & Plan Assessment/Plan (1) Duodenal ulcer: PLAN: The patient had duodenal ulcer yesterday on scope. Pathology from around the ulcer is pending. I have started on a PPI and Carafate. She is not having any pain today I will advance her to a mechanical soft diet. As long as she tolerates diet and is pain-free with eating she can be discharged home on PPI and Carafate and she will follow-up with me in 2 weeks. Pathology is pending. If the pathology is benign I will likely repeat a CT in 1 to 2 months to check on that right upper quadrant mass. If the pathology is malignant I will refer her to tertiary care. Jules Hudson MD Pager: [facility] [address] [place] [address], [address] [place] [address] Office: 12/03/23 0700 <Electronically signed by Jules Hudson MD> Cosigner Signature (if applicable): CC: ~ Signed [facility] Work Phone: 1(625) 274-939004-01-2024 Progress note Author Ronald Lowe [facility] December 02, 2023 2:56pm Note Date/Time December 02, 2023 9:06 am [facility] Medical Records Department [address] [place] [address] Progress Note - Hospitalist 12/02/23900 MR#: [id number] Acct: [id number] Name: KARY HADDAD Rep #:[id number] : 1955 68 From: Ronald Lowe MD PCP: Dr. Awa Hargrove, DO Status:ADM IN Location: [place] [address]-1 Reason for Visit Reason for Visit: Diagnoses Other diseases of stomach and duodenum (12/01/23) Gastrointestinal hemorrhage, unspecified (12/01/23) Subjective Subjective Patient is a 68-year-old lady who presented with abdominal and back pain as wellas black tarry stools. Objective Data Objective Data Vital Signs: Vital Signs Temp Pulse Resp BP Pulse Ox O2 Del Method 98 F 61 16 141/58 H 98 Room Air 12/02/23 04:06 12/02/23 08:49 12/02/23 04:06 12/02/23 04:06 12/02/23 04:06 12/02/23 04:06 Oxygen Delivery Method Room Air Weight: 74.072 kg Body Mass Index (BMI) 30.8 Intake & Output: Intake and Output for Last 24 Hours 03/30/24 03/31/24 04/01/24 23:59 23:59 23:59 Intake Total 2810 / 3010 1220 / 1220 Balance 2810 / 3010 1220 / 1220 Lab / Micro Data 12/02/23 05:25 12/02/23 03:45 Labs: Laboratory Results - last 24 hr 12/01/23 10:35: WBC 12.1 H, RBC 3.87 L, Hgb 11.1 L, Hct 34.7 L, MCV 89.7, MCH 28.7, MCHC 32.0, RDW Std Deviation 45.1 H, RDW Coeff of Rory 13.9, Plt Count 401,MPV 10.5, Immature Gran % (Auto) 0.600, Neut % (Auto) 71.5 H, Lymph % (Auto) 16.6 L, Tillman % (Auto) 8.4, Eos % (Auto) 2.2, Baso % (Auto) 0.7, Absolute Neuts (auto) 8.7 H, Absolute Lymphs (auto) 2.01, Nucleated RBC % 0, PT 14.6, INR 1.1, APTT 28.2, Sodium 139, Potassium 3.9, Chloride 109 H, Carbon Dioxide 23.0, AnionGap 7, BUN 52 H, Creatinine 1.86 H, Estim Creat Clear Calc 25.91, Est GFR (MDRD)Af Amer 34 L, Est GFR (MDRD) Non-Af 28 L, BUN/Creatinine Ratio 28.0 H, Glucose 139 H, Lactic Acid 1.3, Calcium 9.4, Total Bilirubin 0.40, Direct Bilirubin 0.12, AST 18, ALT 20, Alkaline Phosphatase 76, Total Protein 6.9, Albumin 3.5, Globulin 3.4 12/02/23 03:45: WBC Cancelled, Corrected WBC Cancelled, RBC Cancelled, Hgb Cancelled, Hct Cancelled, MCV Cancelled, MCH Cancelled, MCHC Cancelled, RDW Std Deviation Cancelled, RDW Coeff of Rory Cancelled, Plt Count Cancelled, MPV Cancelled, Immature Gran % (Auto) Cancelled, Neut % (Auto) Cancelled, Lymph % (Auto) Cancelled, Tillman % (Auto) Cancelled, Eos % (Auto) Cancelled, Baso % (Auto)Cancelled, Absolute Neuts (auto) Cancelled, Absolute Lymphs (auto) Cancelled, Total Counted Cancelled, Neutrophils % (Manual) Cancelled, Band Neutrophils % Cancelled, Lymphocytes % (Manual) Cancelled, Monocytes % (Manual) Cancelled, Eosinophils % (Manual) Cancelled, Basophils % (Manual) Cancelled, Metamyelocytes% Cancelled, Myelocytes % Cancelled, Promyelocytes % Cancelled, Blast Cells % Cancelled, Plasma Cell % (Manual) Cancelled, Other Cells % Cancelled, Nucleated RBC % Cancelled, Nucleated RBCs/100 WBC Cancelled, Differential Comment Cancelled, Diff Path Review Cancelled, Hypersegmented Neuts Cancelled, Atypical Lymphocytes Cancelled, Reactive Lymphocytes Cancelled, Smudge Cells Cancelled, Toxic Granulation Cancelled, Toxic Vacuolation Cancelled, Dohle Bodies Cancelled, Shivam Rods Cancelled, Platelet Estimate Cancelled, Plt Morphology Comment Cancelled, RBC Morphology Cancelled 12/02/23 03:45: RBC Morphology Cancelled, Polychromasia Cancelled, HypochromasiaCancelled, Basophilic Stippling Cancelled, Anisocytosis Cancelled, Microcytosis Cancelled, Macrocytosis Cancelled, Spherocytes Cancelled, Sickle Cells Cancelled, Target Cells Cancelled, Tear Drop Cells Cancelled, Ovalocytes Cancelled, Stomatocytes Cancelled, [place] Bodies Cancelled, Largo Cells Cancelled, Bite Cells Cancelled, Crenated Cell Cancelled, Acanthocytes (Spur) Cancelled, Rouleaux Cancelled, Schistocytes Cancelled, Sodium 141, Potassium 3.9, Chloride 117 H, Carbon Dioxide 18.0 L, Anion Gap 6, BUN 37 H, Creatinine 1.46 H, Estim Creat Clear Calc 33.00, Est GFR (MDRD) Af Amer 46 L, Est GFR (MDRD) Non-Af 38 L, BUN/Creatinine Ratio 25.3 H, Glucose 106, Calcium 8.4 L 12/02/23 05:25: WBC 7.9, RBC 3.26 L, Hgb 9.4 L, Hct 29.6 L, MCV 90.8, MCH 28.8, MCHC 31.8 L, RDW Std Deviation 45.5 H, RDW Coeff of Rory 13.7, Plt Count 288, MPV10.4, Immature Gran % (Auto) 0.500, Neut % (Auto) 59.5, Lymph % (Auto) 25.7, Tillman % (Auto) 9.6, Eos % (Auto) 3.8, Baso % (Auto) 0.9, Absolute Neuts (auto) 4.7, Absolute Lymphs (auto) 2.03, Nucleated RBC % 0 Micro: Microbiology 12/01/23 13:00 Stool Stool Occult Blood (ABRAHAM) - Final Radiography Diagnostic Testing: Radiology Impression Abdomen/Pelvis CT 12/01/23 11:08 IMPRESSION: 1. There are multiple colonic diverticula consistent with diverticulosis. No visualized colonic masses or bowel dilatation or high density hemorrhagic fluid within the colon or rectosigmoid junction on the current study. A nuclear medicine RBC scan can be obtained if there is continued clinical concern for GI bleeding. 2. The appendix contains a large appendicolith/6 calcified stone at its origin that measures 9.7 mm in diameter. The appendix is also thickened with a total diameter maximally measuring 1.05 cm in diameter, however there is no periappendiceal inflammatory stranding or active edema in the mucosal wall of the appendix and this is likely due to chronic inflammation or sequela from an appendix mucocele or similar process. Electronically Signed: Jeremie Hernandez MD at 12:39 EDT , Chest X-Ray 12/01/23 14:13 IMPRESSION: 1. Degenerative changes, as described above. No demonstrated acute cardiopulmonary process. Electronically Signed: Jeremie Hernandez MD at 14:50 EDT , Physical Exam Narrative GENERAL: cooperative HEENT: Atraumatic; normocephalic EYES; Anicteric, Normal Conjunctiva NECK; supple, normal thyroid, RESPIRATORY: Diminished to auscultation CARDIOVASCULAR: Regular S1 S2, GI: soft, normoactive bowel sounds, : No Renal angle tenderness; EXTREMITIES: No edema, no clubbing, MUSCULOSKELETAL: no muscle wasting NEURO: Awake; no lateralizing signs. SKIN: No Rash PSYCH; Flat affect Assessment & Plan Assessment/Plan (1) Duodenal mass: (2) Upper GI bleed: PLAN: Plan Patient is a 68-year-old lady who presented with abdominal and back pain as wellas black tarry stools. 1. Suspected upper GI bleed ? Patient was started on Protonix consult placed to general surgery for possibleendoscopic evaluation 2.Abnormal CT ? CT of the abdomen and pelvis was concerning for appendicolith patient however did not have symptoms consistent with the finding. General surgery on board 3. Hypertension - Blood pressure controlled, home medications continued with dose adjustment as needed 4. Dyslipidemia ? Patient is on fenofibrate, held on admission 5. Cerebral palsy ? Supportive care 6. Coronary artery disease ? No ischemic symptoms on admission 7. DVT prophylaxis ? Bilateral SCDs for now given patient's presentation on admission Time spent in the patient's overall evaluation,decision-making process, review of diagnostic data, adjustment of management, discussion with other providers, nursing nursing and ancillary staff involved in patient's care documentation, 50 Minutes Charges/Coding Visit Charges Inpatient E&M: 66599 Subs Hosp L3 12/02/23 9946 <Electronically signed by Rnoald Lowe MD> Cosigner Signature (if applicable): CC: ~ Signed [facility] Work Phone: 1(335) 898-569004-01-2024 Progress note Author Jules Hudson [facility] December 02, 2023 11:37am Note Date/Time December 02, 2023 11:3 7am [facility] Medical Records Department [address] [place] [address] Progress Note 12/02/23 1136 MR#: [id number] Acct: [id number] Name: KARY HADDAD Rell Rep #:[id number] : 1955 68 From: Jules pope MD PCP: Dr. Awa Hargrove, DO Status:ADM IN [id number] Note I performed an EGD on the patient. The GE junction did show some signs of esophagitis. The stomach appeared normal. Once entering the bulb of the duodenum there were some food pieces that were unable to pass the stenosis. I was able to push these pieces past the stenosis. There was an ulcer at the areaof stenosis. Biopsies were obtained. I like to start the patient on a PPI and Carafate and I will order full liquids. If she is tolerating full liquids tomorrow she will likely be discharged home on a soft diet on PPI and Carafate. Pathology pending. Jules Hudson MD Pager: [facility] [address] [place] [address], [address] [place] [address] Office: 12/02/23 1135 <Electronically signed by Jules Hudson MD> Jules Hudson MD Cosigner Signature (if applicable): CC: ~ Signed [facility] Work Phone: 1(124) 655-946104-01-2024 Procedure [facility] 12-02-2023 Procedure [facility]04-01-2024 Progress note Author Jules Hudson [facility] December 02, 2023 7:12am Note Date/Time December 02, 2023 7:12 am [facility] Medical Records Department [address] [place] [address] Progress Note - Surgery 12/02/23710 MR#: [id number] Acct: [id number] Name: AKRY HADDAD Rep #:[id number] : 1955 68 From: Jules pope MD PCP: Dr. Awa Hargrove, DO Status:ADM IN Location: [place] [address] Subjective Subjective Patient no complaints overnight and reports that her pain is mildly improved. Objective Data Objective Data Vital Signs: Vital Signs Temp Pulse Resp BP Pulse Ox O2 Del Method 98 F 57 L 16 141/58 H 98 Room Air 12/02/23 04:06 12/02/23 04:06 12/02/23 04:06 12/02/23 04:06 12/02/23 04:06 12/02/23 04:06 Oxygen Delivery Method Room Air Weight: 163 lb 4.8 oz Body Mass Index (BMI) 30.8 Intake & Output: Intake and Output for Last 24 Hours 11/30/23 12/01/23 12/02/23 23:59 23:59 23:59 Intake Total 2810 / 3010 1220 / 1220 Balance 2810 / 3010 1220 / 1220 Lab / Micro Data 12/02/23 05:25 12/02/23 03:45 Labs: Laboratory Results - last 24 hr 12/01/23 10:35: WBC 12.1 H, RBC 3.87 L, Hgb 11.1 L, Hct 34.7 L, MCV 89.7, MCH 28.7, MCHC 32.0, RDW Std Deviation 45.1 H, RDW Coeff of Rory 13.9, Plt Count 401,MPV 10.5, Immature Gran % (Auto) 0.600, Neut % (Auto) 71.5 H, Lymph % (Auto) 16.6 L, Tillman % (Auto) 8.4, Eos % (Auto) 2.2, Baso % (Auto) 0.7, Absolute Neuts (auto) 8.7 H, Absolute Lymphs (auto) 2.01, Nucleated RBC % 0, PT 14.6, INR 1.1, APTT 28.2, Sodium 139, Potassium 3.9, Chloride 109 H, Carbon Dioxide 23.0, AnionGap 7, BUN 52 H, Creatinine 1.86 H, Estim Creat Clear Calc 25.91, Est GFR (MDRD)Af Amer 34 L, Est GFR (MDRD) Non-Af 28 L, BUN/Creatinine Ratio 28.0 H, Glucose 139 H, Lactic Acid 1.3, Calcium 9.4, Total Bilirubin 0.40, Direct Bilirubin 0.12, AST 18, ALT 20, Alkaline Phosphatase 76, Total Protein 6.9, Albumin 3.5, Globulin 3.4 12/02/23 03:45: WBC Cancelled, Corrected WBC Cancelled, RBC Cancelled, Hgb Cancelled, Hct Cancelled, MCV Cancelled, MCH Cancelled, MCHC Cancelled, RDW Std Deviation Cancelled, RDW Coeff of Rory Cancelled, Plt Count Cancelled, MPV Cancelled, Immature Gran % (Auto) Cancelled, Neut % (Auto) Cancelled, Lymph % (Auto) Cancelled, Tillman % (Auto) Cancelled, Eos % (Auto) Cancelled, Baso % (Auto)Cancelled, Absolute Neuts (auto) Cancelled, Absolute Lymphs (auto) Cancelled, Total Counted Cancelled, Neutrophils % (Manual) Cancelled, Band Neutrophils % Cancelled, Lymphocytes % (Manual) Cancelled, Monocytes % (Manual) Cancelled, Eosinophils % (Manual) Cancelled, Basophils % (Manual) Cancelled, Metamyelocytes% Cancelled, Myelocytes % Cancelled, Promyelocytes % Cancelled, Blast Cells % Cancelled, Plasma Cell % (Manual) Cancelled, Other Cells % Cancelled, Nucleated RBC % Cancelled, Nucleated RBCs/100 WBC Cancelled, Differential Comment Cancelled, Diff Path Review Cancelled, Hypersegmented Neuts Cancelled, Atypical Lymphocytes Cancelled, Reactive Lymphocytes Cancelled, Smudge Cells Cancelled, Toxic Granulation Cancelled, Toxic Vacuolation Cancelled, Dohle Bodies Cancelled, Shivam Rods Cancelled, Platelet Estimate Cancelled, Plt Morphology Comment Cancelled, RBC Morphology Cancelled 12/02/23 03:45: RBC Morphology Cancelled, Polychromasia Cancelled, HypochromasiaCancelled, Basophilic Stippling Cancelled, Anisocytosis Cancelled, Microcytosis Cancelled, Macrocytosis Cancelled, Spherocytes Cancelled, Sickle Cells Cancelled, Target Cells Cancelled, Tear Drop Cells Cancelled, Ovalocytes Cancelled, Stomatocytes Cancelled, [place] Bodies Cancelled, Largo Cells Cancelled, Bite Cells Cancelled, Crenated Cell Cancelled, Acanthocytes (Spur) Cancelled, Rouleaux Cancelled, Schistocytes Cancelled, Sodium 141, Potassium 3.9, Chloride 117 H, Carbon Dioxide 18.0 L, Anion Gap 6, BUN 37 H, Creatinine 1.46 H, Estim Creat Clear Calc 33.00, Est GFR (MDRD) Af Amer 46 L, Est GFR (MDRD) Non-Af 38 L,BUN/Creatinine Ratio 25.3 H, Glucose 106, Calcium 8.4 L 12/02/23 05:25: WBC 7.9, RBC 3.26 L, Hgb 9.4 L, Hct 29.6 L, MCV 90.8, MCH 28.8, MCHC 31.8 L, RDW Std Deviation 45.5 H, RDW Coeff of Rory 13.7, Plt Count 288, MPV10.4, Immature Gran % (Auto) 0.500, Neut % (Auto) 59.5, Lymph % (Auto) 25.7, Tillman % (Auto) 9.6, Eos % (Auto) 3.8, Baso % (Auto) 0.9, Absolute Neuts (auto) 4.7, Absolute Lymphs (auto) 2.03, Nucleated RBC % 0 Micro: Microbiology 12/01/23 13:00 Stool Stool Occult Blood (ABRAHAM) - Final Radiography Diagnostic Testing: Radiology Impression Abdomen/Pelvis CT 12/01/23 11:08 IMPRESSION: 1. There are multiple colonic diverticula consistent with diverticulosis. No visualized colonic masses or bowel dilatation or high density hemorrhagic fluid within the colon or rectosigmoid junction on the current study. A nuclear medicine RBC scan can be obtained if there is continued clinical concern for GI bleeding. 2. The appendix contains a large appendicolith/6 calcified stone at its origin that measures 9.7 mm in diameter. The appendix is also thickened with a total diameter maximally measuring 1.05 cm in diameter, however there is no periappendiceal inflammatory stranding or active edema in the mucosal wall of the appendix and this is likely due to chronic inflammation or sequela from an appendix mucocele or similar process. Electronically Signed: Jeremie Hernandez MD at 12:39 EDT Reading Location ID and State: [facility] / [place] , Service support , Chest X-Ray 12/01/23 14:13 IMPRESSION: 1. Degenerative changes, as described above. No demonstrated acute cardiopulmonary process. Electronically Signed: Jeremie Hernandez MD at 14:50 EDT , Physical Exam Const oriented x3 and no apparent distress Resp normal respiratory effort GI soft to palpation Palpation: tender RUQ Assessment & Plan Assessment/Plan (1) Duodenal mass: (2) Upper GI bleed: PLAN: Plan The patient reported having black tarry stools about a week ago which slowly turned to rust colored. She also reports that she is having right upper quadrant pain and epigastric pain. CT was concerning for an appendicolith but her white count came down to normal on no antibiotics with no left shift today. I do not believe she has acute appendicitis. I am planning on an EGD to evaluate the duodenal bulb and C-loop today. She does have a small mass in the right upper quadrant which could be reactive lymph node versus mesenteric mass. The duodenum also looks thickened on the CT scan. Jules Hudson MD Pager: [facility] [address] [facility] [address] [place] [address] Office: 12/02/23 0712 <Electronically signed by Jules Hudson MD> Cosigner Signature (if applicable): CC: ~ Signed [facility] Work Phone: [phone] History and physical note Author Phillip Kingsley [facility] December 01, 2023 3:13pm Note Date/Time December 01, 2023 3:1 2pm [facility] Medical Records Department [address] [place] [address] H&P Exam - Hospitalist 12/01/23 1507 MR#: [id number] Acct: [id number] Name: KARY HADDAD Rep #:[id number] : 1955 68 From: Phillip Kingsley DO PCP: Dr. Awa Hargrove DO Status:ADM PING Location: [place] [address] HPI - General General Date of Admission: 12/01/23 Date of Service: 12/01/23 Chief Complaint: abdominal pain HPI Narrative KARY HADDAD, is a 68 F who presents with abdominal pain. Abdominal pains been going on for 1 week. It is more or less constant, described as pain. Generalized all over her abdomen and not specific. No exacerbating or relievingfactors. In the midst of all this, patient did have 1 day where she had a largeamount of tarry stool. She presented to the emergency room for evaluation. Shehad a CAT scan that showed colonic diverticula and large pendulous in the appendix. It also mentioned something in the duodenum measuring 2.7 x 2.7 cm right of the C-loop of the duodenum in the right upper quadrant. Patient was seen by general surgery who was concerned that her abdominal pain not being due to the [place] but possibly due to this area around the duodenum and concern of a GI bleed. Tentative plan is for endoscopy on December 01. [facility] Medical History (Updated 12/01/23 @ 15:[address] Phillip Kingsley DO) CAD (coronary artery disease) Cerebral palsy CKD (chronic kidney disease) High cholesterol Hypertension Home Medications clonidine HCl 0.3 mg tablet 0.3 mg PO Q8H BP 07/25/23 [History Last Taken Unknown] ergocalciferol (vitamin D2) 1,250 mcg (50,000 unit) capsule (Vitamin D2) 50,000 unit PO QWEEK supplement 07/25/23 [History Last Taken Unknown] fenofibrate 54 mg tablet 54 mg PO DAILY CHOLESTEROL 07/25/23 [History Last Taken Unknown] lisinopril 40 mg tablet 40 mg PO BID BP 07/25/23 [History Last Taken Unknown] metoprolol tartrate 100 mg tablet 100 mg PO Q12H BP 07/25/23 [History Last Taken Unknown] multivitamin with folic acid 400 mcg tablet (Tab-A-Marcella) 1 tab PO DAILY supplement 07/25/23 [History Last Taken Unknown] spironolactone 25 mg tablet 25 mg PO DAILY DIURESIS 07/25/23 [History Last Taken Unknown] Allergy/AdvReac Type Severity Reaction Status Date / Time No Known Allergies Allergy Verified 12/01/23 10:09 Family History (Updated 12/01/23 @ 15:[address] Phillip Kingsley DO) Other Heart disease Social History (Updated 12/01/23 @ 15:[address] Phillip Kingsley DO) Smoking Status: Never smoker alcohol intake: never substance use type: does not use ROS ROS Narrative Hard of hearing. All review of systems were negative except as mentioned above in the history of present illness and the other review of systems. Vital Signs Vital Signs Vital Signs: 12/01/23 10:07 12/01/23 11:29 12/01/23 12:49 Temperature 36.7 C 36.7 C 36.7 C Temperature Source Temporal Oral Oral Pulse Rate 57 L 53 L 50 L Respiratory Rate 16 18 18 Blood Pressure 118/82 H 125/72 H 108/72 Blood Pressure Mean 94 89 84 Pulse Ox 97 97 97 Oxygen Delivery Method Room Air Room Air Room Air 12/01/23 14:15 Temperature 36.6 C Temperature Source Pulse Rate 48 L Respiratory Rate 14 Blood Pressure 128/76 H Blood Pressure Mean 93 Pulse Ox 98 Oxygen Delivery Method Weight Weight: 74.072 kg Body Mass Index (BMI) 30.8 Physical Exam Narrative - Physical Exam General: Alert, Oriented x3, Cooperative. Hard of hearing HEENT: Atraumatic, PERRLA, EOMI, Normocephalic edentulous Oral: Moist Mucosa, No Gingival or Mucosal Lesions/ Ulcerations Neck: Supple, No JVD, Negative Carotid Bruits Lungs: Clear to auscultation, Normal air movement Cardiovascular: Regular rate, Normal S1, Normal S2, No murmurs Abdomen: Bowel Sounds Present, Soft, Non-Distended, No Hepato-splenomegaly. Generalized abdominal pain. Extremities: No clubbing, No cyanosis, No edema, Capillary Refill Less than 3 Seconds Skin: No rashes, No breakdown Musculoskeletal: No Tenderness to Palpation of Joints or Extremities Neurological: Neuro grossly intact Psych/Mental Status: Normal Affect, Appropriate Results Lab / Micro Data Attestation: I reviewed the patient's lab results. 12/01/23 10:35 12/01/23 10:35 Labs: Laboratory Results - last 24 hr 12/01/23 10:35: WBC 12.1 H, RBC 3.87 L, Hgb 11.1 L, Hct 34.7 L, MCV 89.7, MCH 28.7, MCHC 32.0, RDW Std Deviation 45.1 H, RDW Coeff of Rory 13.9, Plt Count 401,MPV 10.5, Immature Gran % (Auto) 0.600, Neut % (Auto) 71.5 H, Lymph % (Auto) 16.6 L, Tillman % (Auto) 8.4, Eos % (Auto) 2.2, Baso % (Auto) 0.7, Absolute Neuts (auto) 8.7 H, Absolute Lymphs (auto) 2.01, Nucleated RBC % 0, PT 14.6, INR 1.1, APTT 28.2, Sodium 139, Potassium 3.9, Chloride 109 H, Carbon Dioxide 23.0, AnionGap 7, BUN 52 H, Creatinine 1.86 H, Estim Creat Clear Calc 25.91, Est GFR (MDRD)Af Amer 34 L, Est GFR (MDRD) Non-Af 28 L, BUN/Creatinine Ratio 28.0 H, Glucose 139 H, Lactic Acid 1.3, Calcium 9.4, Total Bilirubin 0.40, Direct Bilirubin 0.12, AST 18, ALT 20, Alkaline Phosphatase 76, Total Protein 6.9, Albumin 3.5, Globulin 3.4 Micro: Microbiology 12/01/23 13:00 Stool Stool Occult Blood (ABRAHAM) - Final Imaging Radiology Impression Abdomen/Pelvis CT 12/01/23 11:08 IMPRESSION: 1. There are multiple colonic diverticula consistent with diverticulosis. No visualized colonic masses or bowel dilatation or high density hemorrhagic fluid within the colon or rectosigmoid junction on the current study. A nuclear medicine RBC scan can be obtained if there is continued clinical concern for GI bleeding. 2. The appendix contains a large appendicolith/6 calcified stone at its origin that measures 9.7 mm in diameter. The appendix is also thickened with a total diameter maximally measuring 1.05 cm in diameter, however there is no periappendiceal inflammatory stranding or active edema in the mucosal wall of the appendix and this is likely due to chronic inflammation or sequela from an appendix mucocele or similar process. Electronically Signed: Jeremie Hernandez MD at 12:39 EDT Reading Location ID and State: [facility] / [place] , Service support , Chest X-Ray 12/01/23 14:13 IMPRESSION: 1. Degenerative changes, as described above. No demonstrated acute cardiopulmonary process. Electronically Signed: Jeremie Hernandez MD at 14:50 EDT , Assessment & Plan Assessment/Plan (1) Duodenal mass: (2) Upper GI bleed: PLAN: Plan Duodenal mass * Unclear what that is. If it is indeed a mass, lymph nodes, ulceration * General surgery on consultation and plan for EGD on the first. Suspected GI bleed * Patient was complaining of tarry stools earlier in the week * Will start the patient on pantoprazole IV twice daily. * No active bleeding so we will just check a hemoglobin in the morning. * Continue IV fluids for now until patient can eat adequately. Chronic conditions * Hypertension: Continue with clonidine, lisinopril and metoprolol tartrate. H old spironolactone while on IV fluids. * Hyperlipidemia: Hold fenofibrate for now. * History of CAD: Stable. * Cerebral palsy: No acute issues VTE prophylaxis with SCDs Charges/Coding Visit Charges Inpatient E&M: 72615 Init Hosp L3 12/01/23 1513 <Electronically signed by Phillip Kingsley DO> Cosigner Signature (if applicable): CC: Dr. Phillip Kingsley DO; Dr. Awa Hargrove DO~ Signed [facility] Work Phone: [phone]) 394-502303-31-2024 Discharge summary Author Raisa Calhoun [facility] December 01, 2023 2:35pm Note Date/Time December 01, 2023 10: 27am [facility] Medical Records Department [address] [place] [address] Emergency Department Summary 12/01/23 MR#: [id number] Acct: [id number] Name: KARY HADDAD Rep #:[id number] : 1955 68 From: Raisa Calhoun MD PCP: Dr. Awa Hargrove DO Status:REG ER Location: ED HPI History of Present Illness Chief Complaint: Abd Pain Informant: patient Onset/Context/Timing Onset: Days (7 days) Context: Gradual Onset Timing: Waxes and wanes Narrative Narrative: Patient present secondary to abdominal and back pain for the past week. She states on Saturday, the she had a vasovagal episode while having a bowel movement. She states when she finished she noted the stool was black and tarry. Since that time she is been passing rust colored stool. She does report havingat least 2 prior colonoscopies, 1 of which showed some polyps. [facility] Medical History (Updated 12/01/23 @ 14:[address] Raisa Calhoun MD) CKD (chronic kidney disease) High cholesterol Hypertension Home Medications clonidine HCl 0.3 mg tablet 0.3 mg PO Q8H BP 07/25/23 [History Last Taken Unknown] ergocalciferol (vitamin D2) 1,250 mcg (50,000 unit) capsule (Vitamin D2) 50,000 unit PO QWEEK supplement 07/25/23 [History Last Taken Unknown] fenofibrate 54 mg tablet 54 mg PO DAILY CHOLESTEROL 07/25/23 [History Last Taken Unknown] lisinopril 40 mg tablet 40 mg PO BID BP 07/25/23 [History Last Taken Unknown] metoprolol tartrate 100 mg tablet 100 mg PO Q12H BP 07/25/23 [History Last Taken Unknown] multivitamin with folic acid 400 mcg tablet (Tab-A-Marcella) 1 tab PO DAILY supplement 07/25/23 [History Last Taken Unknown] spironolactone 25 mg tablet 25 mg PO DAILY DIURESIS 07/25/23 [History Last Taken Unknown] Allergy/AdvReac Type Severity Reaction Status Date / Time No Known Allergies Allergy Verified 12/01/23 10:09 Social History Smoking Status: Never smoker ROS ROS ED Constitutional Constitutional ED: Denies chills or fever(s) Eyes Eyes: Denies discharge from eye(s) ENT ENT ED: Denies discharge from eye(s), rhinorrhea or sore throat Cardiovascular Cardiovascular: Denies chest pain or palpitations Respiratory/Chest Respiratory/Chest: Denies cough or dyspnea Gastrointestinal Gastrointestinal: Reports abdominal pain and melena; Denies diarrhea, nausea or vomiting Genitourinary Genitourinary ED: Denies dysuria Musculoskeletal Musculoskeletal: Reports back pain; Denies extremity pain Integumentary Denies Abrasions or rash Neurologic Neurologic: Denies headache(s) or weakness Psychiatric Psychiatric: Denies anxiety or depression Allergic/Immunologic Allergic/Immunologic ED: Denies lip swelling or urticaria EXAM Physical Exam Const Vital Signs: 12/01/23 10:07 12/01/23 11:29 12/01/23 12:49 Temperature 98.1 F 98.1 F 98.1 F Temperature Source Temporal Oral Oral Pulse Rate 57 L 53 L 50 L Respiratory Rate 16 18 18 Blood Pressure 118/82 H 125/72 H 108/72 Blood Pressure Mean 94 89 84 Pulse Ox 97 97 97 Oxygen Delivery Method Room Air Room Air Room Air 12/01/23 14:15 Temperature 98 F Temperature Source Pulse Rate 48 L Respiratory Rate 14 Blood Pressure 128/76 H Blood Pressure Mean 93 Pulse Ox 98 Oxygen Delivery Method Positive well nourished and well developed General Appearance ED: well developed HEENT Reports normocephalic and head/scalp atraumatic Eyes PERRL and EOMs intact bilaterally Neck supple Chest Wall inspection of chest normal and palpation of chest normal Resp normal respiratory effort and clear to auscultation bilaterally Cardio regular rate and regular rhythm GI GI Narrative: Abdomen soft with mild diffuse tenderness palpation. No guarding or rebound. Palpation: soft Extremity normal to inspection Neuro oriented x3 and no sensory deficits noted Sensorium / Orientation: alert Motor Exam: strength 5/5 throughout Psych mental status grossly normal Skin no rashes or lesions noted MDM MDM MDM Narrative Medical decision making narrative: IV line established. Labwork obtained to evaluate for leukocytosis, anemia, andelectrolyte derangement. Patient given morphine and Zofran for pain and nausea. CT scan of the abdomen pelvis with IV contrast obtained to evaluate for colitis, diverticulitis, other acute bowel abnormality. History & Record Review Discussion w/independent historian: Patient Additional record(s) reviewed:: Prior labs Lab Data Attestation: I reviewed the patient's lab results. Labs: Laboratory Results - last 24 hr 12/01/23 10:35 WBC 12.1 H RBC 3.87 L Hgb 11.1 L Hct 34.7 L MCV 89.7 MCH 28.7 MCHC 32.0 RDW Std Deviation 45.1 H RDW Coeff of Rory 13.9 Plt Count 401 MPV 10.5 Immature Gran % (Auto) 0.600 Neut % (Auto) 71.5 H Lymph % (Auto) 16.6 L Tillman % (Auto) 8.4 Eos % (Auto) 2.2 Baso % (Auto) 0.7 Absolute Neuts (auto) 8.7 H Absolute Lymphs (auto) 2.01 Nucleated RBC % 0 PT 14.6 INR 1.1 APTT 28.2 Sodium 139 Potassium 3.9 Chloride 109 H Carbon Dioxide 23.0 Anion Gap 7 BUN 52 H Creatinine 1.86 H Estim Creat Clear Calc 25.91 Est GFR (MDRD) Af Amer 34 L Est GFR (MDRD) Non-Af 28 L BUN/Creatinine Ratio 28.0 H Glucose 139 H Lactic Acid 1.3 Calcium 9.4 Total Bilirubin 0.40 Direct Bilirubin 0.12 AST 18 ALT 20 Alkaline Phosphatase 76 Total Protein 6.9 Albumin 3.5 Globulin 3.4 Radiography Diagnostic Testing: Clinical Impression(s) from Imaging Studies Abdomen/Pelvis CT 12/01/23 11:08 IMPRESSION: 1. There are multiple colonic diverticula consistent with diverticulosis. No visualized colonic masses or bowel dilatation or high density hemorrhagic fluid within the colon or rectosigmoid junction on the current study. A nuclear medicine RBC scan can be obtained if there is continued clinical concern for GI bleeding. 2. The appendix contains a large appendicolith/6 calcified stone at its origin that measures 9.7 mm in diameter. The appendix is also thickened with a total diameter maximally measuring 1.05 cm in diameter, however there is no periappendiceal inflammatory stranding or active edema in the mucosal wall of the appendix and this is likely due to chronic inflammation or sequela from an appendix mucocele or similar process. Electronically Signed: Jeremie Hernandez MD at 12:39 EDT , Treatment and Re-Evaluation :: Patient declined morphine but did take Zofran. CBC reveals mildly elevated white count at 12.1 with a hemoglobin 11.1. This hemoglobin is stable when compared to prior values from last July. Chemistry studies reveal a BUN of 52 and creatinine 1.86. This is slightly increased over her baseline, but she does have chronic kidney disease. Glucose is 139. LFTs are unremarkable. CT scan without contrast obtained given her renal function. There are multiple colonic diverticula consistent with diverticulosis. No mass or bowel dilatation. The appendix contains a large appendicolith at its origin that measures 9.7 mm in diameter. The appendix is also thickened with a total diameter maximally measuring 1.05 cm. There is no periappendiceal inflammation or stranding. Stool guaiac is obtained and returns negative. I spoke with Dr. Hudson, on-call for surgery. Given the patient does have an elevated white count, although minimal, he did recommend observation in the hospital overnight for clear liquids, repeat abdominal exams, and repeat labs. This was discussed with the patient and she is in agreement. She is now statingthat her back hurts worse than what her abdomen does and describes the pain is in the scapular region. I will obtain a chest x-ray as well as an EKG to ensureno acute abnormalities. Patient was admitted in July for an NSTEMI secondary to hypertensive emergency. She had a cardiac cath at that time that showed no focal disease. Portable chest x-ray per my interpretation reveals no acute abnormalities. EKG is sinus bradycardia 59 bpm with no evidence of ischemia. Dr. Hudson did ultimately present to the emergency room to see the patient. He notes that there was also evidence of a mass in the upper abdomen and he is concerned that she may have a duodenal mass with a reactive lymph node. He thinks this better explains the patient's pain including her upper back pain. Patient will be admitted overnight with plan for EGD tomorrow. Discharge Plan Dx/Rx/DC Orders Clinical Impression: Appendicolith, Back pain, Leukocytosis, Duodenal mass Disposition Disposition: [facility] What to do if you have Problems For any increased pain, shortness of breath, bleeding, nausea or vomiting, chestpain, or any unexpected problems, contact your Primary Care Provider. Call [facility] [facility] ([phone]) or report to the closest Emergency Room. Call 911 if necessary. 12/01/23 1435 <Electronically signed by Raisa Calhoun MD> Cosigner Signature (if applicable): CC: Dr. Awa Hargrove, DO ~ Signed [facility] Work Phone: [phone]) 505-252803-31-2024 Consult note Author Jules Hudson [facility] December 01, 2023 2:20pm Note Date/Time December 01, 2023 2:2 0pm [facility] Medical Records Department [address] [place] [address] Consultation - Surgical 12/01/23 1416 MR#: [id number] Acct: [id number] Name: KARY HADDAD Rep #:[id number] : 1955 68 From: Jules pope MD PCP: Dr. Awa Hargrove, Status:REG ER Location: ED Assessment & Plan Assessment/Plan (1) Upper GI bleed: PLAN: Plan The patient seems to be having at least 1 episode of upper GI bleeding and she is having upper GI pain. She has CT scan today and a CT scan revealed a 2.7 x 2.7 cm mass in the right upper quadrant at the C-loop of the duodenum. This wasread as possible mesenteric lymph node versus mesenteric mass. I also believe the pylorus looks thickened on the CT scan. She does have an appendicolith and that is why I was originally called. There is no inflammation around the appendix and she does not have any lower abdominal pain or nausea or vomiting. I am concerned for possible ulceration versus malignancy in the upper GI tract. I do not believe she has appendicitis given the fact that she does not have any lower abdominal pain or nausea or vomiting and the CT scan does not show any inflammation around her appendix. 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 I would like to perform an EGD tomorrow to evaluate. I discussed with the admitting team. She could have full liquids until midnight and then n.p.o. after midnight and I will plan for EGD tomorrow to evaluate. I explained endoscopy in detail to the patient. I explained the risks includingbut not limited to stroke or heart attack with anesthesia, perforation of the GItract, bleeding, infection. I explained that any of these could necessitate further emergency surgery. The patient understands and all questions were answered sufficiently. The patient wishes to proceed with procedure. Jules Hudson MD Pager: [facility] [address] [place] [address] [address] [place] [address] Office: HPI Consult Data Date of Consult: 12/01/23 HPI Narrative HPI Narrative: KARY HADDAD, is a 68 F who presents with upper abdominal pain and black tarry stools. The patient reports that she had none of the symptoms a week ago. She said this past Saturday she started having upper abdominal pain and felt very crampy and sat down to have a bowel movement had a large black tarry bowel movement. The patient reports that she has remained painful throughout the week. She says she has not had any more bleeding or black tarry bowel movementsbut she still has upper abdominal pain and upper back pain. She does not have any lower abdominal pain. She denies any diarrhea. She denies nausea or vomiting. She denies fevers or chills. [facility] Medical History (Updated 12/01/23 @ 14:[address] Jules Hudson MD) CKD (chronic kidney disease) High cholesterol Hypertension Home Medications clonidine HCl 0.3 mg tablet 0.3 mg PO Q8H BP 07/25/23 [History Last Taken Unknown] ergocalciferol (vitamin D2) 1,250 mcg (50,000 unit) capsule (Vitamin D2) 50,000 unit PO QWEEK supplement 07/25/23 [History Last Taken Unknown] fenofibrate 54 mg tablet 54 mg PO DAILY CHOLESTEROL 07/25/23 [History Last Taken Unknown] lisinopril 40 mg tablet 40 mg PO BID BP 07/25/23 [History Last Taken Unknown] metoprolol tartrate 100 mg tablet 100 mg PO Q12H BP 07/25/23 [History Last Taken Unknown] multivitamin with folic acid 400 mcg tablet (Tab-A-Marcella) 1 tab PO DAILY supplement 07/25/23 [History Last Taken Unknown] spironolactone 25 mg tablet 25 mg PO DAILY DIURESIS 07/25/23 [History Last Taken Unknown] Allergy/AdvReac Type Severity Reaction Status Date / Time No Known Allergies Allergy Verified 12/01/23 10:09 Social History Smoking Status: Never smoker ROS Constitutional Constitutional: Reports anorexia; Denies chills or fatigue Eyes Eyes: Denies blurry vision ENT HEENT: Denies abnormal hearing Cardiovascular Cardiovascular: Denies chest pain Respiratory/Chest Respiratory/Chest: Denies cough or dyspnea Gastrointestinal Gastrointestinal: Reports abdominal pain and melena; Denies constipation, diarrhea, nausea or vomiting Genitourinary Genitourinary: Denies change in urinary stream Musculoskeletal Musculoskeletal: Denies abnormal gait Integumentary Integumentary: Denies new lesions Neurologic Neurologic: Denies abnormal gait Psychiatric Psychiatric: Denies anxiety Physical Exam Const alert and oriented x3 HEENT normocephalic Eyes PERRL Resp normal respiratory effort Cardio Rate: regular rate Rhythm: regular rhythm GI soft to palpation Inspection: Negative for abdominal distention Palpation: tender epigastric Extremity normal to inspection Neuro CN's II-XII intact bilaterally Lab / Micro Data 12/01/23 10:35 12/01/23 10:35 Labs: Laboratory Results - last 24 hr 12/01/23 10:35: WBC 12.1 H, RBC 3.87 L, Hgb 11.1 L, Hct 34.7 L, MCV 89.7, MCH 28.7, MCHC 32.0, RDW Std Deviation 45.1 H, RDW Coeff of Rory 13.9, Plt Count 401,MPV 10.5, Immature Gran % (Auto) 0.600, Neut % (Auto) 71.5 H, Lymph % (Auto) 16.6 L, Tillman % (Auto) 8.4, Eos % (Auto) 2.2, Baso % (Auto) 0.7, Absolute Neuts (auto) 8.7 H, Absolute Lymphs (auto) 2.01, Nucleated RBC % 0, PT 14.6, INR 1.1, APTT 28.2, Sodium 139, Potassium 3.9, Chloride 109 H, Carbon Dioxide 23.0, AnionGap 7, BUN 52 H, Creatinine 1.86 H, Estim Creat Clear Calc 25.91, Est GFR (MDRD)Af Amer 34 L, Est GFR (MDRD) Non-Af 28 L, BUN/Creatinine Ratio 28.0 H, Glucose 139 H, Lactic Acid 1.3, Calcium 9.4, Total Bilirubin 0.40, Direct Bilirubin 0.12, AST 18, ALT 20, Alkaline Phosphatase 76, Total Protein 6.9, Albumin 3.5, Globulin 3.4 Micro: Microbiology 12/01/23 13:00 Stool Stool Occult Blood (ABRAHAM) - Final Imaging Radiology Impression Abdomen/Pelvis CT 12/01/23 11:08 IMPRESSION: 1. There are multiple colonic diverticula consistent with diverticulosis. No visualized colonic masses or bowel dilatation or high density hemorrhagic fluid within the colon or rectosigmoid junction on the current study. A nuclear medicine RBC scan can be obtained if there is continued clinical concern for GI bleeding. 2. The appendix contains a large appendicolith/6 calcified stone at its origin that measures 9.7 mm in diameter. The appendix is also thickened with a total diameter maximally measuring 1.05 cm in diameter, however there is no periappendiceal inflammatory stranding or active edema in the mucosal wall of the appendix and this is likely due to chronic inflammation or sequela from an appendix mucocele or similar process. Electronically Signed: Jeremie Hernandez MD at 12:39 EDT , 12/01/23 1420 <Electronically signed by Jules Hudson MD> Cosigner Signature (if applicable): CC: Dr. Awa Hargrove, DO~ Signed [facility] Work Phone: [phone] Discharge summary Author Raisa Calhoun [facility] December 01, 2023 2:35pm Note Date/Time December 01, 2023 10: 27am [facility] Medical Records Department [address] [place] [address] Emergency Department Summary 12/01/23 MR#: [id number] Acct: [id number] Name: KARY HADDAD Rep #:[id number] : 1955 68 From: Raisa Calhoun MD PCP: Dr. Awa Hargrove, DO Status:REG ER Location: ED HPI History of Present Illness Chief Complaint: Abd Pain Informant: patient Onset/Context/Timing Onset: Days (7 days) Context: Gradual Onset Timing: Waxes and wanes Narrative Narrative: Patient present secondary to abdominal and back pain for the past week. She states on Saturday, the she had a vasovagal episode while having a bowel movement. She states when she finished she noted the stool was black and tarry. Since that time she is been passing rust colored stool. She does report havingat least 2 prior colonoscopies, 1 of which showed some polyps. [facility] Medical History (Updated 12/01/23 @ 14:[address] Raisa Calhoun MD) CKD (chronic kidney disease) High cholesterol Hypertension Home Medications clonidine HCl 0.3 mg tablet 0.3 mg PO Q8H BP 07/25/23 [History Last Taken Unknown] ergocalciferol (vitamin D2) 1,250 mcg (50,000 unit) capsule (Vitamin D2) 50,000 unit PO QWEEK supplement 07/25/23 [History Last Taken Unknown] fenofibrate 54 mg tablet 54 mg PO DAILY CHOLESTEROL 07/25/23 [History Last Taken Unknown] lisinopril 40 mg tablet 40 mg PO BID BP 07/25/23 [History Last Taken Unknown] metoprolol tartrate 100 mg tablet 100 mg PO Q12H BP 07/25/23 [History Last Taken Unknown] multivitamin with folic acid 400 mcg tablet (Tab-A-Marcella) 1 tab PO DAILY supplement 07/25/23 [History Last Taken Unknown] spironolactone 25 mg tablet 25 mg PO DAILY DIURESIS 07/25/23 [History Last Taken Unknown] Allergy/AdvReac Type Severity Reaction Status Date / Time No Known Allergies Allergy Verified 12/01/23 10:09 Social History Smoking Status: Never smoker ROS ROS ED Constitutional Constitutional ED: Denies chills or fever(s) Eyes Eyes: Denies discharge from eye(s) ENT ENT ED: Denies discharge from eye(s), rhinorrhea or sore throat Cardiovascular Cardiovascular: Denies chest pain or palpitations Respiratory/Chest Respiratory/Chest: Denies cough or dyspnea Gastrointestinal Gastrointestinal: Reports abdominal pain and melena; Denies diarrhea, nausea or vomiting Genitourinary Genitourinary ED: Denies dysuria Musculoskeletal Musculoskeletal: Reports back pain; Denies extremity pain Integumentary Denies Abrasions or rash Neurologic Neurologic: Denies headache(s) or weakness Psychiatric Psychiatric: Denies anxiety or depression Allergic/Immunologic Allergic/Immunologic ED: Denies lip swelling or urticaria EXAM Physical Exam Const Vital Signs: 12/01/23 10:07 12/01/23 11:29 12/01/23 12:49 Temperature 98.1 F 98.1 F 98.1 F Temperature Source Temporal Oral Oral Pulse Rate 57 L 53 L 50 L Respiratory Rate 16 18 18 Blood Pressure 118/82 H 125/72 H 108/72 Blood Pressure Mean 94 89 84 Pulse Ox 97 97 97 Oxygen Delivery Method Room Air Room Air Room Air 12/01/23 14:15 Temperature 98 F Temperature Source Pulse Rate 48 L Respiratory Rate 14 Blood Pressure 128/76 H Blood Pressure Mean 93 Pulse Ox 98 Oxygen Delivery Method Positive well nourished and well developed General Appearance ED: well developed HEENT Reports normocephalic and head/scalp atraumatic Eyes PERRL and EOMs intact bilaterally Neck supple Chest Wall inspection of chest normal and palpation of chest normal Resp normal respiratory effort and clear to auscultation bilaterally Cardio regular rate and regular rhythm GI GI Narrative: Abdomen soft with mild diffuse tenderness palpation. No guarding or rebound. Palpation: soft Extremity normal to inspection Neuro oriented x3 and no sensory deficits noted Sensorium / Orientation: alert Motor Exam: strength 5/5 throughout Psych mental status grossly normal Skin no rashes or lesions noted MDM MDM MDM Narrative Medical decision making narrative: IV line established. Labwork obtained to evaluate for leukocytosis, anemia, andelectrolyte derangement. Patient given morphine and Zofran for pain and nausea. CT scan of the abdomen pelvis with IV contrast obtained to evaluate for colitis, diverticulitis, other acute bowel abnormality. History & Record Review Discussion w/independent historian: Patient Additional record(s) reviewed:: Prior labs Lab Data Attestation: I reviewed the patient's lab results. Labs: Laboratory Results - last 24 hr 12/01/23 10:35 WBC 12.1 H RBC 3.87 L Hgb 11.1 L Hct 34.7 L MCV 89.7 MCH 28.7 MCHC 32.0 RDW Std Deviation 45.1 H RDW Coeff of Rory 13.9 Plt Count 401 MPV 10.5 Immature Gran % (Auto) 0.600 Neut % (Auto) 71.5 H Lymph % (Auto) 16.6 L Tillman % (Auto) 8.4 Eos % (Auto) 2.2 Baso % (Auto) 0.7 Absolute Neuts (auto) 8.7 H Absolute Lymphs (auto) 2.01 Nucleated RBC % 0 PT 14.6 INR 1.1 APTT 28.2 Sodium 139 Potassium 3.9 Chloride 109 H Carbon Dioxide 23.0 Anion Gap 7 BUN 52 H Creatinine 1.86 H Estim Creat Clear Calc 25.91 Est GFR (MDRD) Af Amer 34 L Est GFR (MDRD) Non-Af 28 L BUN/Creatinine Ratio 28.0 H Glucose 139 H Lactic Acid 1.3 Calcium 9.4 Total Bilirubin 0.40 Direct Bilirubin 0.12 AST 18 ALT 20 Alkaline Phosphatase 76 Total Protein 6.9 Albumin 3.5 Globulin 3.4 Radiography Diagnostic Testing: Clinical Impression(s) from Imaging Studies Abdomen/Pelvis CT 12/01/23 11:08 IMPRESSION: 1. There are multiple colonic diverticula consistent with diverticulosis. No visualized colonic masses or bowel dilatation or high density hemorrhagic fluid within the colon or rectosigmoid junction on the current study. A nuclear medicine RBC scan can be obtained if there is continued clinical concern for GI bleeding. 2. The appendix contains a large appendicolith/6 calcified stone at its origin that measures 9.7 mm in diameter. The appendix is also thickened with a total diameter maximally measuring 1.05 cm in diameter, however there is no periappendiceal inflammatory stranding or active edema in the mucosal wall of the appendix and this is likely due to chronic inflammation or sequela from an appendix mucocele or similar process. Electronically Signed: Jeremie Hernandez MD at 12:39 EDT , Treatment and Re-Evaluation :: Patient declined morphine but did take Zofran. CBC reveals mildly elevated white count at 12.1 with a hemoglobin 11.1. This hemoglobin is stable when compared to prior values from last July. Chemistry studies reveal a BUN of 52 and creatinine 1.86. This is slightly increased over her baseline, but she does have chronic kidney disease. Glucose is 139. LFTs are unremarkable. CT scan without contrast obtained given her renal function. There are multiple colonic diverticula consistent with diverticulosis. No mass or bowel dilatation. The appendix contains a large appendicolith at its origin that measures 9.7 mm in diameter. The appendix is also thickened with a total diameter maximally measuring 1.05 cm. There is no periappendiceal inflammation or stranding. Stool guaiac is obtained and returns negative. I spoke with Dr. Hudson, on-call for surgery. Given the patient does have an elevated white count, although minimal, he did recommend observation in the hospital overnight for clear liquids, repeat abdominal exams, and repeat labs. This was discussed with the patient and she is in agreement. She is now statingthat her back hurts worse than what her abdomen does and describes the pain is in the scapular region. I will obtain a chest x-ray as well as an EKG to ensureno acute abnormalities. Patient was admitted in July for an NSTEMI secondary to hypertensive emergency. She had a cardiac cath at that time that showed no focal disease. Portable chest x-ray per my interpretation reveals no acute abnormalities. EKG is sinus bradycardia 59 bpm with no evidence of ischemia. Dr. Hudson did ultimately present to the emergency room to see the patient. He notes that there was also evidence of a mass in the upper abdomen and he is concerned that she may have a duodenal mass with a reactive lymph node. He thinks this better explains the patient's pain including her upper back pain. Patient will be admitted overnight with plan for EGD tomorrow. Discharge Plan Dx/Rx/DC Orders Clinical Impression: Appendicolith, Back pain, Leukocytosis, Duodenal mass Disposition Disposition: Acute Care Hospital [facility] What to do if you have Problems For any increased pain, shortness of breath, bleeding, nausea or vomiting, chestpain, or any unexpected problems, contact your Primary Care Provider. Call [facility] ([phone]) or report to the closest Emergency Room. Call 911 if necessary. 12/01/23 1435 <Electronically signed by Raisa Calhoun MD> Cosigner Signature (if applicable): CC: Dr. Awa Hargrove DO ~ Signed [facility] Work Phone: 1(513) 948-360501-15-2024 Procedure [facility] 07-27-2023 Discharge summary Author Ronald Lowe [facility] July 27, 2023 10:37am Note Date/Time July 27, 2023 10:32am [facility] Medical Records Department [address] [place] [address] Discharge Summary 07/27/23 1029 MR#: [id number] Acct: [id number] Name: KARY HADDAD Rep #:[id number] : 1955 68 From: Ronald Lowe MD PCP: Dr. Awa Hargrove DO Status:ADM IN Location: [place] [id number] Providers Date of Admission: 07/26/23 Date of Discharge: 07/27/23 Primary Care Physician: Dr. Awa Hargrove DO Consultations 07/26/23 08:00 Consult: Cardiology Routine Consulting Provider: Zelalem Hernandez Reason for Consult: NSTEMI EMERGENT Consult: No MD Notified: Yes Date Notified: 07/26/23 Time Notified: 08:01 Method of Notification: Text Reason For Visit: NSTEMI Diagnosis Discharge Diagnosis (1) NSTEMI (non-ST elevated myocardial infarction): Status: Acute Code(s): I21.4 - Non-ST elevation (NSTEMI) myocardial infarction (2) Hypertensive emergency without congestive heart failure: Status: Acute Code(s): I16.1 - Hypertensive emergency Plan Patient is a 68-year-old lady admitted with chest pain and palpitations. Patient was found to have elevated troponin consistent with acute non-STEMI. Was also found to have markedly elevated blood pressure admitted to a monitored bed for subsequent management 1. Acute non-STEMI ? Treatment initiated per protocol with heparin antiplatelet therapy with aspirin patient is already on beta-blockers 8 continue added statin therapy. Aspart of her management serial cardiac enzymes and 2D echo ordered with consultation placed to cardiology ? Patient left heart catheterization did not demonstrate any hemodynamically obstructive lesions. Case was discussed with cardiology was felt patient was possibly experiencing coronary vasospasm amlodipine was added to her treatment regimen. 2D echo obtained during patient hospital stay demonstrated Theleft ventricular ejection fraction is 50 %. Basal anterior, septal and basal lateral hypokinesis. 2. Acute hypertensive emergency ? Admitted to monitored bed treatment initiated with Lisinopril, clonidine, metoprolol. Goal is to keep systolic blood pressure less than 140 ? 07/27/2023; patient blood pressure did improve after addition of HCTZ and amlodipine per recommendations from cardiology. Prescriptions written on discharge for the patient. 3. Acute congestive heart failure ? With suspected heart failure with preserved ejection fraction patient is on diuretics continued 4. Chronic kidney disease stage III ? Secondary to hypertensive nephrosclerosis monitor with daily BMPs 5. Right mass abscess ? Was thought to be an abscess started on Augmentin switched to Zosyn. Did request for ultrasound of the right breast and consultation placed to general surgery 6. Left upper lobe nodule likely a granuloma. ? Patient informed of above plan is to follow-up with serial CT to be organized by PCP 7. Dyslipidemia ? Patient is on fenofibrate and statin therapy 8. DVT prophylaxis ? Patient on heparin Time spent in the patient's overall evaluation,decision-making process, review of diagnostic data, adjustment of management, discussion with other providers, nursing nursing and ancillary staff involved in patient's care documentation, 35 Minutes Medications at Discharge Home Medications clonidine HCl 0.3 mg tablet 0.3 mg PO Q8H BP 07/25/23 ergocalciferol (vitamin D2) 1,250 mcg (50,000 unit) capsule (Vitamin D2) 50,000 unit PO QWEEK supplement 07/25/23 fenofibrate 54 mg tablet 54 mg PO DAILY CHOLESTEROL 07/25/23 lisinopril 40 mg tablet 40 mg PO BID BP 07/25/23 metoprolol tartrate 100 mg tablet 100 mg PO Q12H BP 07/25/23 multivitamin with folic acid 400 mcg tablet (Tab-A-Marcella) 1 tab PO DAILY supplement 07/25/23 spironolactone 25 mg tablet 25 mg PO DAILY DIURESIS 07/25/23 amlodipine 5 mg tablet 5 mg PO DAILY 60 days #60 tabs 07/27/23 aspirin 81 mg capsule 81 mg PO DAILY #60 caps 07/27/23 atorvastatin 40 mg tablet 40 mg PO QHS #60 tabs 07/27/23 hydrochlorothiazide 25 mg tablet 25 mg PO BREAKFAST #60 tabs 07/27/23 Hospital Course Procedures 2-D Echocardiogram and Cardiac catheterization Summary of Care Provided Minutes Spent on Discharge: 35 Physical Exam Narrative GENERAL: cooperative HEENT: Atraumatic; normocephalic EYES; Anicteric, Normal Conjunctiva NECK; supple, normal thyroid, RESPIRATORY: Diminished to auscultation CARDIOVASCULAR: Regular S1 S2, GI: soft, normoactive bowel sounds, : No Renal angle tenderness; EXTREMITIES: No edema, no clubbing, MUSCULOSKELETAL: no muscle wasting NEURO: Awake; no lateralizing signs. SKIN: No Rash PSYCH; Flat affect Weight / BMI Weight Weight: 70.3 kg Body Mass Index (BMI) 28.3 ABG / Lab / Microbiology Data 07/27/23 05:30 07/27/23 05:30 Laboratory: Laboratory Results - last 24 hr 07/26/23 03:50: Diff Path Review Reviewed 07/27/23 05:30: WBC 10.4, RBC 3.84 L, Hgb 11.1 L, Hct 35.3 L, MCV 91.9, MCH 28.9, MCHC 31.4 L, RDW Std Deviation 49.1 H, RDW Coeff of Rory 14.6, Plt Count 301, MPV 11.2, Immature Gran % (Auto) 0.600, Neut % (Auto) 65.5, Lymph % (Auto) 19.7, Tillman % (Auto) 10.8 H, Eos % (Auto) 2.6, Baso % (Auto) 0.8, Absolute Neuts (auto) 6.8, Absolute Lymphs (auto) 2.05, Nucleated RBC % 0, Sodium 140, Potassium 3.8, Chloride 113 H, Carbon Dioxide 22.0, Anion Gap 5, BUN 30 H, Creatinine 1.38 H, Estim Creat Clear Calc 30.00, Est GFR (MDRD) Af Amer 49 L, Est GFR (MDRD) Non-Af 40 L, BUN/Creatinine Ratio 21.7 H, Glucose 127 H, Calcium 9.1, Phosphorus 2.7, Magnesium 1.6 Radiography Diagnostic Testing: Radiology Impression Echocardiogram 07/26/23 08:03 Interpretation Summary Moderate to severe concentric LV hypertrophy Basal anterior, septal and basal lateral hypokinesis Stage 1 diastolic dysfunction. The left ventricular ejection fraction is 50 %. Ordering Physician: Ronald Lowe Referring Physician: Awa Hargrove Performed By: Armando Benoit RCS D/C Instructions Discharge Diet: 2000 mg Sodium Diet Discharge Activity: Return to Normal Activity Call your doctor if you observe: Fever of 101 or Higher, Shortness of breath, Fainting spells and Chest pain Meaningful Use Info Meaningful Use Diagnoses (Choose all that apply): AMI AMI/Post PCI/Angioplasty Aspirin given w/in 24hrs of arrival?: Yes ASA at discharge?: Yes Antiplatelet Therapy at Discharge:: No Reason Antiplatelet Therapy not ordered:: Not indicated Statins at discharge?: Yes Eric/ARB at discharge?: Yes Beta Shantel at discharge?: Yes Done w/ Acute MA measure.: Yes Documented LVEF (%): 50 Discharge Plan Admission Admit Date/Time: 07/26/23 00:00 Attending Provider: Ronald Lowe Primary Care Provider: Awa Hargrove Consulting Providers: Melecio Torrez; Zelalem Hernandez Discharge Orders/Prescriptions Prescriptions: New atorvastatin 40 mg Tablet 40 mg PO QHS Qty: 60 0RF amlodipine 5 mg Tablet 5 mg PO DAILY 60 Days Qty: 60 0RF hydrochlorothiazide 25 mg Tablet 25 mg PO BREAKFAST Qty: 60 0RF aspirin 81 mg capsule 81 mg PO DAILY Qty: 60 0RF Continued metoprolol tartrate 100 mg tablet 100 mg PO Q12H Patient Comments: TAKE 1 TABLET BY MOUTH TWICE DAILY clonidine HCl 0.3 mg tablet 0.3 mg PO Q8H Patient Comments: TAKE 1 TABLET BY MOUTH THREE TIMES DAILY lisinopril 40 mg tablet 40 mg PO BID Patient Comments: TAKE 1 TABLET BY MOUTH TWICE DAILY spironolactone 25 mg tablet 25 mg PO DAILY Patient Comments: TAKE 1 TABLET BY MOUTH EVERY DAY fenofibrate 54 mg tablet 54 mg PO DAILY Patient Comments: TAKE 1 TABLET BY MOUTH EVERY DAY ergocalciferol (vitamin D2) [Vitamin D2] 1,250 mcg (50,000 unit) capsule 50,000 unit PO QWEEK multivitamin with folic acid [Tab-A-Marcella] 400 mcg tablet 1 tab PO DAILY Referrals / Follow Up: Awa Hargrove DO [Primary Care Provider] - Within 1 Week Disposition Disposition (needs filled in before D/C Order can be placed): Home, Self Care Charges/Coding Visit Charges Inpatient E&M: 76188 Disch Hosp >30min 07/27/23 1037 <Electronically signed by Ronald Lowe MD> Cosigner Signature (if applicable): CC: Dr. Ronald Lowe MD; Dr. Awa Hargrove DO~ Signed [facility] Work Phone: 1(654) 691-267211-24-2023 Progress note Author Ronald Nielsonjohn [facility] July 26, 2023 1:39pm Note Date/Time July 26, 2023 8:07am [facility] Medical Records Department [address] [place] [address] Progress Note - Hospitalist 07/26/23 0759 MR#: [id number] Acct: [id number] Name: KARY HADDAD Rep #:[id number] : 1955 68 From: Ronald Lowe MD PCP: Dr. Awa Hargrove DO Status:ADM IN Location: [place] [address] Reason for Visit Reason for Visit: Diagnoses Unspecified infectious disease (07/26/23) Hypertensive emergency (07/26/23) Resistant hypertension (07/26/23) Non-ST elevation (NSTEMI) myocardial infarction (07/26/23) Chronic kidney disease, unspecified (07/26/23) Subjective Subjective Patient is a 68-year-old lady admitted with chest pain and palpitations. Patient was found to have elevated troponin consistent with acute non-STEMI. Was also found to have markedly elevated blood pressure admitted to a monitored bed for subsequent management Objective Data Objective Data Vital Signs: Vital Signs Temp Pulse Resp BP Pulse Ox O2 Del Method 97.1 F L 64 16 126/66 H 95 Room Air 07/26/23 03:23 07/26/23 05:15 07/26/23 03:23 07/26/23 05:15 07/26/23 03:23 07/26/23 03:39 Oxygen Delivery Method Room Air Weight: 70.3 kg Body Mass Index (BMI) 28.3 Intake & Output: Intake and Output for Last 24 Hours 07/24/23 07/25/23 07/26/23 23:59 23:59 23:59 Intake Total 400 / 400 163.45 / 163.45 Balance 400 / 400 163.45 / 163.45 Lab / Micro Data 07/26/23 03:50 07/26/23 03:50 Labs: Laboratory Results - last 24 hr 07/25/23 18:05: WBC 19.0 H, RBC 4.88, Hgb 13.9, Hct 43.2, MCV 88.5, MCH 28.5, MCHC 32.2, RDW Std Deviation 45.2 H, RDW Coeff of Rory 14.1, Plt Count 429, MPV 10.6, Immature Gran % (Auto) 0.500, Neut % (Auto) 88.1 H, Lymph % (Auto) 5.4 L, Tillman % (Auto) 5.4, Eos % (Auto) 0.1, Baso % (Auto) 0.5, Absolute Neuts (auto) 16.7 H, Absolute Lymphs (auto) 1.03, Nucleated RBC % 0, Sodium 142, Potassium 3.7, Chloride 111 H, Carbon Dioxide 21.0, Anion Gap 10, BUN 23 H, Creatinine 1.41 H, Estim Creat Clear Calc 29.36, Est GFR (MDRD) Af Amer 47 L, Est GFR (MDRD) Non-Af 39 L, BUN/Creatinine Ratio 16.3, Glucose 146 H, Calcium 9.3, Troponin I High Sens 1954 H*, B-Natriuretic Peptide 383.4 H 07/25/23 20:22: Troponin I High Sens 2328 H* 07/25/23 21:35: PT 14.2, INR 1.1, APTT 28.7 07/26/23 00:55: Troponin I High Sens 1815 H* 07/26/23 03:50: WBC 14.6 H, RBC 4.26, Hgb 12.2, Hct 38.6, MCV 90.6, MCH 28.6, MCHC 31.6 L, RDW Std Deviation 47.1 H, RDW Coeff of Rory 14.4, Plt Count 363, MPV10.7, Immature Gran % (Auto) 0.600, Neut % (Auto) 69.2, Lymph % (Auto) 16.6 L, Tillman % (Auto) 12.2 H, Eos % (Auto) 0.7, Baso % (Auto) 0.7, Absolute Neuts (auto)10.1 H, Absolute Lymphs (auto) 2.42, Nucleated RBC % 0, Differential Comment SCANNED, Diff Path Review December, Plt Morphology Comment LARGE, PT 14.7, INR 1.1, APTT 45.6 H, Sodium 142, Potassium 3.6, Chloride 114 H, Carbon Dioxide 20.0L, Anion Gap 8, BUN 23 H, Creatinine 1.26 H, Estim Creat Clear Calc 32.86, Est GFR (MDRD) Af Amer 54 L, Est GFR (MDRD) Non-Af 45 L, BUN/Creatinine Ratio 18.3, Glucose 109 H, Calcium 8.5, Total Bilirubin 0.40, Direct Bilirubin 0.12, AST 22,ALT 26, Alkaline Phosphatase 68, B-Natriuretic Peptide 1014.8 H, Total Protein 6.3 L, Albumin 3.2, Globulin 3.1 Radiography Diagnostic Testing: Radiology Impression Chest X-Ray 07/25/23 17:50 IMPRESSION: No radiographic evidence of acute cardiopulmonary disease. Electronically Signed: Сергей Altman DO at 18:23 EST , Chest CTA 07/25/23 18:45 IMPRESSION: No demonstrated pulmonary embolism or arterial dissection. Left upper lobe nodule likely a granuloma. Electronically Signed: Сергей Altman DO at 20:23 EST , ADDENDUM: 07/25/232110 IMPRESSION: undefined Physical Exam Narrative GENERAL: cooperative HEENT: Atraumatic; normocephalic EYES; Anicteric, Normal Conjunctiva NECK; supple, normal thyroid, RESPIRATORY: Diminished to auscultation CARDIOVASCULAR: Regular S1 S2, GI: soft, normoactive bowel sounds, : No Renal angle tenderness; EXTREMITIES: No edema, no clubbing, MUSCULOSKELETAL: no muscle wasting NEURO: Awake; no lateralizing signs. SKIN: No Rash PSYCH; Flat affect Assessment & Plan Assessment/Plan (1) NSTEMI (non-ST elevated myocardial infarction): (2) Hypertensive emergency without congestive heart failure: PLAN: Plan Patient is a 68-year-old lady admitted with chest pain and palpitations. Patient was found to have elevated troponin consistent with acute non-STEMI. Was also found to have markedly elevated blood pressure admitted to a monitored bed for subsequent management 1. Acute non-STEMI ? Treatment initiated per protocol with heparin antiplatelet therapy with aspirin patient is already on beta-blockers 8 continue added statin therapy. Aspart of her management serial cardiac enzymes and 2D echo ordered with consultation placed to cardiology 2. Acute hypertensive emergency ? Admitted to monitored bed treatment initiated with Lisinopril, clonidine, metoprolol. Goal is to keep systolic blood pressure less than 140 3. Acute congestive heart failure ? With suspected heart failure with preserved ejection fraction patient is on diuretics continued 4. Chronic kidney disease stage III ? Secondary to hypertensive nephrosclerosis monitor with daily BMPs 5. Right mass abscess ? Was thought to be an abscess started on Augmentin switched to Zosyn. Did request for ultrasound of the right breast and consultation placed to general surgery 6. Left upper lobe nodule likely a granuloma. ? Patient informed of above plan is to follow-up with serial CT to be organized by PCP 7. Dyslipidemia ? Patient is on fenofibrate and statin therapy 8. DVT prophylaxis ? Patient on heparin Time spent in the patient's overall evaluation,decision-making process, review of diagnostic data, adjustment of management, discussion with other providers, nursing nursing and ancillary staff involved in patient's care documentation, 52 Minutes Charges/Coding Visit Charges Inpatient E&M: 28647 Subs Hosp L3 07/26/23 4405 <Electronically signed by Ronald Lowe MD> Cosigner Signature (if applicable): CC: ~ Signed [facility] Work Phone: 1(199) 125-661911-24-2023 Progress note Author Zelalem Hernandez [facility] July 26, 2023 11:37am Note Date/Time July 26, 2023 11:37am [facility] Medical Records Department [address] [place] [address] Progress Note 07/26/23 1136 MR#: [id number] Acct: [id number] Name: KARY HADDAD Rep #:[id number] : 1955 68 From: Zelalem Hernandez MD PCP: Dr. Awa Hargrove, DO Status:ADM IN Location: [place] [address] Progress Note Mild proximal RCA and mid LAD disease. Chest pain and troponin elevation likelysecondary to severe uncontrolled hypertension at presentation. Also consider vasospasm. Recommend adequate control of blood pressure. Start on amlodipine for possible vasospasm. Continue aspirin. Risk factor modification. 07/26/23 1137 <Electronically signed by Zelalem Hernandez MD> Zelalem Hernandez MD Cosigner Signature (if applicable): CC: ~ Signed [facility] Work Phone: 1(853) 494-819611-24-2023 Consult note Author Zelalem Hernandez [facility] July 26, 2023 9:40am Note Date/Time July 26, 2023 9:40am [facility] Medical Records Department [address] [place] [address] Consultation - Cardiology 07/26/23 0935 MR#: [id number] Acct: [id number] Name: KARY HADDAD Rep #:[id number] : 1955 68 From: Zelalem Hernandez MD PCP: Dr. Awa Hargrove, DO Status:ADM IN Location: [place] [address] Assessment & Plan Assessment/Plan (1) NSTEMI (non-ST elevated myocardial infarction): PLAN: Continue aspirin. Beta-blockers. Coronary angiography recommended. Risks benefits and alternatives explained. She understand these and wishes to proceed. (2) Resistant hypertension: PLAN: Add hydrochlorothiazide. On clonidine, lisinopril and metoprolol. (3) CKD (chronic kidney disease): PLAN: Monitor creatinine. HPI Consult Data Date of Consult: 07/26/23 HPI Narrative Reason for Consultation: NSTEMI HPI Narrative: This lady has past medical history significant for resistant hypertension. She presented to the emergency room yesterday with complaints of anterior chest discomfort. According to her, it was a pressure across her anterior chest. No radiation to the arm neck or jaw. Some associated shortness of breath. Per her, it lasted for more than an hour. Patient's workup revealed elevated troponin ruling her in for NSTEMI. Patient denies any previous history of heart disease. [facility] Medical History (Updated 07/25/23 @ 23:[address] Melecio Torrez MD) Chest pain CKD (chronic kidney disease) Hypertension Home Medications clonidine HCl 0.3 mg tablet 0.3 mg PO Q8H BP 07/25/23 [History Last Taken Unknown] ergocalciferol (vitamin D2) 1,250 mcg (50,000 unit) capsule (Vitamin D2) 50,000 unit PO QWEEK supplement 07/25/23 [History Last Taken Unknown] fenofibrate 54 mg tablet 54 mg PO DAILY CHOLESTEROL 07/25/23 [History Last Taken Unknown] lisinopril 40 mg tablet 40 mg PO BID BP 07/25/23 [History Last Taken Unknown] metoprolol tartrate 100 mg tablet 100 mg PO Q12H BP 07/25/23 [History Last Taken Unknown] multivitamin with folic acid 400 mcg tablet (Tab-A-Marcella) 1 tab PO DAILY supplement 07/25/23 [History Last Taken Unknown] spironolactone 25 mg tablet 25 mg PO DAILY DIURESIS 07/25/23 [History Last Taken Unknown] Allergy/AdvReac Type Severity Reaction Status Date / Time No Known Allergies Allergy Verified 07/25/23 17:02 Social History Smoking Status: Never smoker Physical Exam Narrative Comfortable. No apparent distress. Heart sounds 1 and 2 are normal. No murmurs or rubs are noted. Chest is clear to auscultation bilaterally. Alert oriented x 3. No ankle edema. Risk Stratification Risk Stratification Applicable: No Objective Data Vital Signs: Vital Signs Temp Pulse Resp BP Pulse Ox O2 Del Method 97.9 F 62 16 139/86 H 93 Room Air 07/26/23 09:19 07/26/23 09:22 07/26/23 09:19 07/26/23 09:19 07/26/23 09:19 07/26/23 09:19 Oxygen Delivery Method Room Air Weight: 154 lb 15.759 oz Body Mass Index (BMI) 28.3 Intake & Output: Intake and Output for Last 24 Hours 07/24/23 07/25/23 07/26/23 23:59 23:59 23:59 Intake Total 400 / 400 629.28 / 629.28 Balance 400 / 400 629.28 / 629.28 Lab / Micro Data Attestation: I reviewed the patient's lab results. 07/26/23 03:50 07/26/23 03:50 Labs: Laboratory Results - last 24 hr 07/25/23 18:05: WBC 19.0 H, RBC 4.88, Hgb 13.9, Hct 43.2, MCV 88.5, MCH 28.5, MCHC 32.2, RDW Std Deviation 45.2 H, RDW Coeff of Rory 14.1, Plt Count 429, MPV 10.6, Immature Gran % (Auto) 0.500, Neut % (Auto) 88.1 H, Lymph % (Auto) 5.4 L, Tillman % (Auto) 5.4, Eos % (Auto) 0.1, Baso % (Auto) 0.5, Absolute Neuts (auto) 16.7 H, Absolute Lymphs (auto) 1.03, Nucleated RBC % 0, Sodium 142, Potassium 3.7, Chloride 111 H, Carbon Dioxide 21.0, Anion Gap 10, BUN 23 H, Creatinine 1.41 H, Estim Creat Clear Calc 29.36, Est GFR (MDRD) Af Amer 47 L, Est GFR (MDRD) Non-Af 39 L, BUN/Creatinine Ratio 16.3, Glucose 146 H, Calcium 9.3, Troponin I High Sens 1954 H*, B-Natriuretic Peptide 383.4 H 07/25/23 20:22: Troponin I High Sens 2328 H* 07/25/23 21:35: PT 14.2, INR 1.1, APTT 28.7 07/26/23 00:55: Troponin I High Sens 1815 H* 07/26/23 03:50: WBC 14.6 H, RBC 4.26, Hgb 12.2, Hct 38.6, MCV 90.6, MCH 28.6, MCHC 31.6 L, RDW Std Deviation 47.1 H, RDW Coeff of Rory 14.4, Plt Count 363, MPV10.7, Immature Gran % (Auto) 0.600, Neut % (Auto) 69.2, Lymph % (Auto) 16.6 L, Tillman % (Auto) 12.2 H, Eos % (Auto) 0.7, Baso % (Auto) 0.7, Absolute Neuts (auto)10.1 H, Absolute Lymphs (auto) 2.42, Nucleated RBC % 0, Differential Comment SCANNED, Diff Path Review December, Plt Morphology Comment LARGE, PT 14.7, INR 1.1, APTT 45.6 H, Sodium 142, Potassium 3.6, Chloride 114 H, Carbon Dioxide 20.0L, Anion Gap 8, BUN 23 H, Creatinine 1.26 H, Estim Creat Clear Calc 32.86, Est GFR (MDRD) Af Amer 54 L, Est GFR (MDRD) Non-Af 45 L, BUN/Creatinine Ratio 18.3, Glucose 109 H, Calcium 8.5, Total Bilirubin 0.40, Direct Bilirubin 0.12, AST 22,ALT 26, Alkaline Phosphatase 68, B-Natriuretic Peptide 1014.8 H, Total Protein 6.3 L, Albumin 3.2, Globulin 3.1 Rhythm Strip Rhythm Strip: Sinus Rhythm Cardiology Labs/Tests 07/25/23 18:05: WBC 19.0 H, RBC 4.88, Hgb 13.9, Hct 43.2, MCV 88.5, MCH 28.5, MCHC 32.2, Plt Count 429, MPV 10.6, Immature Gran % (Auto) 0.500, Neut % (Auto) 88.1 H, Lymph % (Auto) 5.4 L, Tillman % (Auto) 5.4, Eos % (Auto) 0.1, Baso % (Auto)0.5, Absolute Neuts (auto) 16.7 H, Nucleated RBC % 0, Sodium 142, Potassium 3.7,Chloride 111 H, Carbon Dioxide 21.0, Anion Gap 10, BUN 23 H, Creatinine 1.41 H, Est GFR (MDRD) Af Amer 47 L, Est GFR (MDRD) Non-Af 39 L, BUN/Creatinine Ratio 16.3, Glucose 146 H, Calcium 9.3, B-Natriuretic Peptide 383.4 H 07/25/23 21:35: PT 14.2, INR 1.1, APTT 28.7 07/26/23 03:50: WBC 14.6 H, RBC 4.26, Hgb 12.2, Hct 38.6, MCV 90.6, MCH 28.6, MCHC 31.6 L, Plt Count 363, MPV 10.7, Immature Gran % (Auto) 0.600, Neut % (Auto) 69.2, Lymph % (Auto) 16.6 L, Tillman % (Auto) 12.2 H, Eos % (Auto) 0.7, Baso% (Auto) 0.7, Absolute Neuts (auto) 10.1 H, Nucleated RBC % 0, PT 14.7, INR 1.1,APTT 45.6 H, Sodium 142, Potassium 3.6, Chloride 114 H, Carbon Dioxide 20.0 L, Anion Gap 8, BUN 23 H, Creatinine 1.26 H, Est GFR (MDRD) Af Amer 54 L, Est GFR (MDRD) Non-Af 45 L, BUN/Creatinine Ratio 18.3, Glucose 109 H, Calcium 8.5, TotalBilirubin 0.40, Direct Bilirubin 0.12, B-Natriuretic Peptide 1014.8 H Rhythm: EKG: Normal sinus rhythm. T wave changes in inferior leads. ECHO: Stress Test: Cardiac Cath: PCI: CT Surgery: Holter monitor: EPS: PPM: CXR: Chest CT Scan: Radiography Diagnostic Testing: Radiology Impression Chest X-Ray 07/25/23 17:50 IMPRESSION: No radiographic evidence of acute cardiopulmonary disease. Electronically Signed: Сергей Altman DO at 18:23 EST , Chest CTA 07/25/23 18:45 IMPRESSION: No demonstrated pulmonary embolism or arterial dissection. Left upper lobe nodule likely a granuloma. Electronically Signed: Сергей Altman DO at 20:23 EST , ADDENDUM: 07/25/232110 IMPRESSION: undefined 07/26/23 0940 <Electronically signed by Zelalem Hernandez MD> Cosigner Signature (if applicable): CC: Dr. Melecio Torrez MD; Dr. Zelalem Hernandez MD; Dr. Awa Hargrove DO~ Signed [facility] Work Phone: 1(319) 359-999611-24-2023 History and physical note Author Melecio Torrez [facility] July 25, 2023 11:25pm Note Date/Time July 25, 2023 11:17pm [facility] Medical Records Department [address] [place] [address] H&P Exam - Hospitalist 07/25/238 MR#: [id number] Acct: [id number] Name: KARY HADDAD Rep #:[id number] : 1955 68 From: Melecio Torrez MD PCP: Dr. Awa Hargrove DO Status:ADM IN Location: [place] [address] 1 HPI - General General Date of Admission: 07/25/23 Date of Service: 07/25/23 Chief Complaint: Chest pain HPI Narrative KARY HADDAD, is a 68 F who presents to the emergency department with acute onset chest pain since this morning. She woke up this morning with throbbing headache, and severe retrosternal chest pain radiating to the back. The pain was associated with sweating, nausea and vomiting. There were multiple episodes of dry eructations. She has occasionally had chest pain in the past but this was more severe. She resumed it would subside on its own but when the pain became unbearable came to the ED about 7 to 8 hours since the onset of pain. She has a history of resistant hypertension on clonidine, metoprolol, spironolactone, lisinopril for her blood pressure. She suspects that she forgother medications last night. At the time of presentation to the ED her blood pressures were extremely elevated above 200/120 mmHg. Over the last few days she is also noticing a tender lump on her right breast. This was seen previously and she was informed by the Nurse Practitioner regarding a suspected abscess per the patient. She has been treated with oral antibiotics in the past. There was minimal response. Does not smoke, no alcohol use, no other drug abuse. [facility] Medical History (Updated 07/25/23 @ 23:[address] Melecio Torrez MD) Chest pain CKD (chronic kidney disease) Hypertension Home Medications clonidine HCl 0.3 mg tablet 0.3 mg PO Q8H BP 07/25/23 [History Last Taken Unknown] ergocalciferol (vitamin D2) 1,250 mcg (50,000 unit) capsule (Vitamin D2) 50,000 unit PO QWEEK supplement 07/25/23 [History Last Taken Unknown] fenofibrate 54 mg tablet 54 mg PO DAILY CHOLESTEROL 07/25/23 [History Last Taken Unknown] lisinopril 40 mg tablet 40 mg PO BID BP 07/25/23 [History Last Taken Unknown] metoprolol tartrate 100 mg tablet 100 mg PO Q12H BP 07/25/23 [History Last Taken Unknown] multivitamin with folic acid 400 mcg tablet (Tab-A-Marcella) 1 tab PO DAILY supplement 07/25/23 [History Last Taken Unknown] spironolactone 25 mg tablet 25 mg PO DAILY DIURESIS 07/25/23 [History Last Taken Unknown] Allergy/AdvReac Type Severity Reaction Status Date / Time No Known Allergies Allergy Verified 07/25/23 17:02 Social History Smoking Status: Never smoker ROS Constitutional Constitutional: Reports malaise Cardiovascular Cardiovascular: Reports chest pain, lightheadedness, palpitations and rapid heart rate; Denies claudication, dyspnea on exertion, edema, paroxysmal nocturnal dyspnea or syncope Respiratory/Chest Respiratory/Chest: Reports cough and dyspnea Gastrointestinal Gastrointestinal: Reports nausea and vomiting; Denies abdominal pain Musculoskeletal Musculoskeletal: Reports back pain Vital Signs Vital Signs Vital Signs: 07/25/23 17:02 07/25/23 17:08 07/25/23 17:25 Temperature 98.3 F Temperature Source Temporal Pulse Rate 74 Respiratory Rate 22 H Respiratory Effort Normal Non-Labored Blood Pressure 213/124 H Blood Pressure Mean 153 Blood Pressure Source Blood Pressure Position Blood Pressure Location Pulse Ox 96 Oxygen Delivery Method Room Air Room Air 07/25/23 18:02 07/25/23 19:30 07/25/23 21:53 Temperature 98.2 F Temperature Source Pulse Rate 59 L 61 Respiratory Rate 19 H 20 H Respiratory Effort Blood Pressure 164/96 H 182/92 H Blood Pressure Mean 118 122 Blood Pressure Source Blood Pressure Position Blood Pressure Location Pulse Ox 96 Oxygen Delivery Method 07/25/23 20:00 07/25/23 21:00 07/25/23 22:32 Temperature 97.1 F L Temperature Source Temporal Pulse Rate 55 L 55 L 65 Respiratory Rate 17 18 18 Respiratory Effort Blood Pressure 178/96 H 182/92 H 168/94 H Blood Pressure Mean 119 118 118 Blood Pressure Source Monitor Blood Pressure Position Semi-Fowlers Blood Pressure Location Right Arm Pulse Ox 97 Oxygen Delivery Method Room Air 07/25/23 22:51 Temperature Temperature Source Pulse Rate 65 Respiratory Rate Respiratory Effort Blood Pressure Blood Pressure Mean Blood Pressure Source Blood Pressure Position Blood Pressure Location Pulse Ox Oxygen Delivery Method Weight Weight: 154 lb 15.759 oz Body Mass Index (BMI) 28.3 Physical Exam Narrative Registered nurse was present in the room throughout the examination as veneer repairer machine. The was also present in the room tenderness present in the right upper quadrant of the breast. No marco-areolar changes. No sinuses or skin changes. Results Lab / Micro Data Attestation: I reviewed the patient's lab results. 07/25/23 18:05 07/25/23 18:05 Labs: Laboratory Results - last 24 hr 07/25/23 18:05: WBC 19.0 H, RBC 4.88, Hgb 13.9, Hct 43.2, MCV 88.5, MCH 28.5, MCHC 32.2, RDW Std Deviation 45.2 H, RDW Coeff of Rory 14.1, Plt Count 429, MPV 10.6, Immature Gran % (Auto) 0.500, Neut % (Auto) 88.1 H, Lymph % (Auto) 5.4 L, Tillman % (Auto) 5.4, Eos % (Auto) 0.1, Baso % (Auto) 0.5, Absolute Neuts (auto) 16.7 H, Absolute Lymphs (auto) 1.03, Nucleated RBC % 0, Sodium 142, Potassium 3.7, Chloride 111 H, Carbon Dioxide 21.0, Anion Gap 10, BUN 23 H, Creatinine 1.41 H, Estim Creat Clear Calc 29.36, Est GFR (MDRD) Af Amer 47 L, Est GFR (MDRD) Non-Af 39 L, BUN/Creatinine Ratio 16.3, Glucose 146 H, Calcium 9.3, Troponin I High Sens 1954 H*, B-Natriuretic Peptide 383.4 H 07/25/23 20:22: Troponin I High Sens 2328 H* 07/25/23 21:35: PT 14.2, INR 1.1, APTT 28.7 Imagaing Radiology Impression Chest X-Ray 07/25/23 17:50 IMPRESSION: No radiographic evidence of acute cardiopulmonary disease. Electronically Signed: Сергей Altman DO at 18:23 EST , Chest CTA 07/25/23 18:45 IMPRESSION: No demonstrated pulmonary embolism or arterial dissection. Left upper lobe nodule likely a granuloma. Electronically Signed: Сергей Altman DO at 20:23 EST , ADDENDUM: 07/25/232110 IMPRESSION: undefined Assessment & Plan Assessment/Plan (1) NSTEMI (non-ST elevated myocardial infarction): PLAN: Continue heparin, continue metoprolol, lisinopril, spironolactone, clonidine. Cardiology consulted, n.p.o. after midnight. (2) Hypertensive emergency without congestive heart failure: PLAN: Admit patient to PCS, close monitoring of vitals. Antihypertensive medications as before. Pressure is better controlled now. (3) Resistant hypertension: PLAN: Restart home antihypertensive medications. Close monitoring of blood pressure (4) CKD (chronic kidney disease): PLAN: Daily renal function test (5) Infection: PLAN: Start IV antibiotics. PLAN: Plan Ms Haddad, presents to the ED with concerns of chest pain in the setting of highblood pressure. 1. ACS: The elevated troponin, clinical presentation and minimal changes on her EKG are suspicious for NSTEMI. This was discussed with the 911 emergency dispatcher on-call,and the patient was started on heparin, aspirin was given. Her home medicationswere restarted with metoprolol, lisinopril, spironolactone and clonidine. Will keep her n.p.o. overnight if there are plans for cardiac catheterization in the morning. 2. Hypertensive emergency: She presented with a blood pressure of 212/122 in the setting of missing her antihypertensive medications. Given her presentationwith severe headache, chest pain the NSTEMI could be because of the hypertensiveemergency. We will initially restart all her home medications and gradually titrate to reduce her blood pressure back to her baseline. 3. Chronic kidney disease: Likely secondary to hypertensive nephrosclerosis. Continue to monitor for now 4. Right breast mass, abscess suspected: Start her on IV Augmentin for the suspected breast infection. Her leukocytosis could be because of the severe pain and ACS also. Charges/Coding Visit Charges Inpatient E&M: 69534 Init Hosp L2 07/25/232319 <Electronically signed by Melecio Torrez MD> Cosigner Signature (if applicable): CC: Dr. Melecio Torrez MD; Dr. Awa Hargrove DO~ Signed ADDENDUM by Dr. Melecio Torrez MD on 07/25/23 at 2325 Addendum Started IV Cefazolin for the suspected breast lesion, will consider US of the breast lesion if there is no improvement in the leucocytosis. 07/25/232324<Electronically signed by Melecio Torrez MD> Cosigner Signature (if applicable): cc: Dr. Melecio Torrez MD; Dr. Awa Hargrove DO ~* Signed [facility] Work Phone: 1(397) 972-804011-23-2023 Discharge summary Author Valentin Ceballos [facility] July 25, 2023 9:27pm Note Date/Time July 25, 2023 5:26pm [facility] Medical Records Department [address] [place] [id number] Emergency Department Summary 07/25/23 MR#: [id number] Acct: [id number] Name: KARY HADDAD Rep #:[id number] : 1955 68 From: Valentin Caicedo PCP: Dr. Awa Hargrove DO Status:REG ER Location: ED HPI History of Present Illness Chief Complaint: Chest Pain PFSH PFSH Allergy/AdvReac Type Severity Reaction Status Date / Time No Known Allergies Allergy Verified 07/25/23 17:02 Social History Smoking Status: Never smoker EXAM Physical Exam Const Vital Signs: 07/25/23 17:02 07/25/23 17:08 07/25/23 17:25 Temperature 98.3 F Temperature Source Temporal Pulse Rate 74 Respiratory Rate 22 H Respiratory Effort Normal Non-Labored Blood Pressure 213/124 H Blood Pressure Mean 153 Pulse Ox 96 Oxygen Delivery Method Room Air Room Air [facility] Narrative Medical decision making narrative: HISTORY OF PRESENT ILLNESS: 68-year-old female here with concern for chest pain. Notes chest pain is been ongoing for the last 8 hours. It is right-sided it is not an radiating it is nonexertional she denies any shortness of breath. No recent cough. No recent syncope. The patient denies recent surgery in the last 4 weeks or immobilization in the last 3 days, denies previous diagnosis of DVT or PE, hemoptysis, unilateral leg swelling or malignancy with treatment the last 6 months or palliative. No estrogen use noted. Patient denies sudden onset of pain, no tearing sensation, no migratory symptoms, no new numbness, weakness or loss of sensation. Patient denies family history or personal history of Connective tissue disorders (Marfan's Syndrome, Elisa Danlos etc). Patient additionally notes several weeks of intermittent breast tenderness. She notes she felt a mass in her right breast. She notes she saw her primary care physician several weeks ago and this was noted at that time it was agreed that she would get confirmatory testing as outpatient but has not received this testing as of yet. Notes family history of breast cancer in her mother REVIEW OF SYSTEMS: Pertinent positives: Chest pain, palpitations, breast mass Pertinent negatives: Syncope, shortness of breath, cough, vomiting PHYSICAL EXAM: Nursing triage notes reviewed, Vital signs reviewed Constitutional: please see [facility] HENT: MMM Eyes: Pupils equal round and reactive to light, Extraocular muscles intact Neck: No stridor, no JVD, full neck ROM Lungs: Clear to auscultation, No wheezing or rales. No increased work of breathing, no conversational dyspnea, no accessory muscle use, no nasal flaring. No respiratory distress noted Breast: Breast exam performed veneer repairer machine Azul 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 Right breast with nipple retraction, there is ecchymosis noted to right lateral quadrant, is a palpable mass in this area. There is no warmth, no overlying erythema, crepitus, bullae no fluctuance. The mass is mobile. Heart: Regular rate and rhythm, No murmurs, No rubs and No gallops, 2+ distal pulses (radial, femoral, posterior tibial) in all extremities Abdomen: Soft, there is no tenderness, rigidity, rebound or guarding, no obviousperitoneal signs, no palpable pulsatile abdominal masses, no auscultated abdominal bruit : No CVAT Extremities: No edema Neuro: No focal neurological deficits, cranial nerves II through XII intact, 5/5strength in all extremities. Intact sensation to light touch in all extremities,2+ reflexes bilateral patella tendons. Normal gait. No ataxia. Skin: No rash or lesions noted MEDICAL DECISION MAKING: Chief Complaint: Chest pain External records reviewed: No recent cardiac catheterization stress test or echocardiograms noted in the chart Factors affecting care: Hypertension Social determinants of health: Denies cocaine or methamphetamine abuse History obtained from others: Consults: Cardiology (Dr. Hernandez), internal medicine (Dr. Torrez) MDM Narrative: Patient was initially hypertensive otherwise hemodynamically stable and afebrile. No focal cardiopulmonary abnormalities I considered the following differential diagnosis: ACS, pneumonia, PE, anemia, electrolyte disturbance, breast cancer, breast abscess I obtained a broad lab and imaging workup to further elucidate the etiology of the patient's complaints. Given breast symptoms I wanted to obtain a confirmatory ultrasound however this was not available at this time given there is no staff available to conduct the study. Aside opted for CT scan of the patient's chest to further elucidate if there is a PE versus any signs of mass or infection in the right breast ALL IMAGES (IF OBTAINED) HAVE BEEN PERSONALLY REVIEWED AND INTERPRETED BY MYSELF. EKG with n sinus bradycardia, left axis deviation, no obvious ischemic changes Initial high-sensitivity troponin elevated consistent with myocardial ischemia, repeat high-sensitivity troponin continues to uptrend CBC with leukocytosis suggestive of s systemic inflammation, no anemia or thrombocytopenia BMP without significant [place] normalities, there is no anion gap to suggest endorgan hypoperfusion, there is CKD BNP elevated consistent with increased myocyte stretch I have personally reviewed the patient's chest x-ray. Chest x-ray is unremarkable for pulmonary edema, pneumothorax, pneumonia or focal cardiopulmonary abnormality. CT scan of the chest shows no evidence of PE, noted stranding in the right breast concerning for infection or mastitis The synthesis of the patient's labs, images, history and physical exam are consistent with NSTEMI, ?breast infection or mass. No evidence of acute STEMI. No evidence of PE. Patient's right breast exam is concerning for breast cancer versus breast infection. Given white blood cell count and signs of stranding and other infectious changes on patient's CT I gave her empiric vancomycin. Patient was admitted to PCU stable condition after starting heparin drip as per Dr. Mueller's recommendations. The patient and/or family, caregivers express understanding. The patient and/orfamily, caregivers agrees with the plan. Shared decision making: I will have a discussion with the patient and or visitors regarding risk/benefits of further testing or admission. They will be made aware of of the risk/benefits inherent in this decision they will be given the opportunity tovoice understanding. Total critical care time today provided was at least 0 minutes. This excludes separately billable procedures. Critical care time (if documented) is secondary to the patient having high probability of clinically significant/life threatening deterioration in the patient's condition which required my urgent intervention. Impression: 1. Chest pain 2. Breast mass 3. NSTEMI 4. Leukocytosis 5. CKD 6. Right breast mastitis Dispo: Admit Lab Data Attestation: I reviewed the patient's lab results. Labs: Laboratory Results - last 24 hr 07/25/23 18:05 WBC 19.0 H RBC 4.88 Hgb 13.9 Hct 43.2 MCV 88.5 MCH 28.5 MCHC 32.2 RDW Std Deviation 45.2 H RDW Coeff of Rory 14.1 Plt Count 429 MPV 10.6 Immature Gran % (Auto) 0.500 Neut % (Auto) 88.1 H Lymph % (Auto) 5.4 L Tillman % (Auto) 5.4 Eos % (Auto) 0.1 Baso % (Auto) 0.5 Absolute Neuts (auto) 16.7 H Absolute Lymphs (auto) 1.03 Nucleated RBC % 0 Radiography Diagnostic Testing: Clinical Impression(s) from Imaging Studies Chest X-Ray 07/25/23 17:50 IMPRESSION: No radiographic evidence of acute cardiopulmonary disease. Electronically Signed: Сергей Altman DO at 18:23 EST , Discharge Plan Triage Chief Complaint: Chest Pain ED Provider: Valentin Ceballos Dx/Rx/DC Orders Primary Care Provider: Awa Hargrove Referrals: Awa Hargrove DO [Primary Care Provider] - What to do if you have Problems For any increased pain, shortness of breath, bleeding, nausea or vomiting, chestpain, or any unexpected problems, contact your Primary Care Provider. Call [facility] ([phone]) or report to the closest Emergency Room. Call 911 if necessary. 07/25/232126 <Electronically signed by Valentin Ceballos DO> Cosigner Signature (if applicable): CC: Dr. Awa Hargrove DO ~ Signed [facility] Work Phone: [phone]) 930-281611-23-2023 Discharge summary Author Valentin [facility] July 25, 2023 9:27pm Note Date/Time July 25, 2023 5:26pm [facility] Medical Records Department [address] [place] [address] Emergency Department Summary 07/25/23 MR#: [id number] Acct: [id number] Name: KARY HADDAD Rep #:[id number] : 1955 68 From: Valentin Caicedo PCP: Dr. Awa Hargrove DO Status:REG ER Location: ED HPI History of Present Illness Chief Complaint: Chest Pain PFSH PFSH Allergy/AdvReac Type Severity Reaction Status Date / Time No Known Allergies Allergy Verified 07/25/23 17:02 Social History Smoking Status: Never smoker EXAM Physical Exam Const Vital Signs: 07/25/23 17:02 07/25/23 17:08 07/25/23 17:25 Temperature 98.3 F Temperature Source Temporal Pulse Rate 74 Respiratory Rate 22 H Respiratory Effort Normal Non-Labored Blood Pressure 213/124 H Blood Pressure Mean 153 Pulse Ox 96 Oxygen Delivery Method Room Air Room Air MDM MDM MDM Narrative Medical decision making narrative: HISTORY OF PRESENT ILLNESS: 68-year-old female here with concern for chest pain. Notes chest pain is been ongoing for the last 8 hours. It is right-sided it is not an radiating it is nonexertional she denies any shortness of breath. No recent cough. No recent syncope. The patient denies recent surgery in the last 4 weeks or immobilization in the last 3 days, denies previous diagnosis of DVT or PE, hemoptysis, unilateral leg swelling or malignancy with treatment the last 6 months or palliative. No estrogen use noted. Patient denies sudden onset of pain, no tearing sensation, no migratory symptoms, no new numbness, weakness or loss of sensation. Patient denies family history or personal history of Connective tissue disorders (Marfan's Syndrome, Elisa Danlos etc). Patient additionally notes several weeks of intermittent breast tenderness. She notes she felt a mass in her right breast. She notes she saw her primary care physician several weeks ago and this was noted at that time it was agreed that she would get confirmatory testing as outpatient but has not received this testing as of yet. Notes family history of breast cancer in her mother REVIEW OF SYSTEMS: Pertinent positives: Chest pain, palpitations, breast mass Pertinent negatives: Syncope, shortness of breath, cough, vomiting PHYSICAL EXAM: Nursing triage notes reviewed, Vital signs reviewed Constitutional: please see mdm HENT: MMM Eyes: Pupils equal round and reactive to light, Extraocular muscles intact Neck: No stridor, no JVD, full neck ROM Lungs: Clear to auscultation, No wheezing or rales. No increased work of breathing, no conversational dyspnea, no accessory muscle use, no nasal flaring. No respiratory distress noted Breast: Breast exam performed veneer repairer machine Azul 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 Right breast with nipple retraction, there is ecchymosis noted to right lateral quadrant, is a palpable mass in this area. There is no warmth, no overlying erythema, crepitus, bullae no fluctuance. The mass is mobile. Heart: Regular rate and rhythm, No murmurs, No rubs and No gallops, 2+ distal pulses (radial, femoral, posterior tibial) in all extremities Abdomen: Soft, there is no tenderness, rigidity, rebound or guarding, no obviousperitoneal signs, no palpable pulsatile abdominal masses, no auscultated abdominal bruit : No CVAT Extremities: No edema Neuro: No focal neurological deficits, cranial nerves II through XII intact, 5/5strength in all extremities. Intact sensation to light touch in all extremities,2+ reflexes bilateral patella tendons. Normal gait. No ataxia. Skin: No rash or lesions noted MEDICAL DECISION MAKING: Chief Complaint: Chest pain External records reviewed: No recent cardiac catheterization stress test or echocardiograms noted in the chart Factors affecting care: Hypertension Social determinants of health: Denies cocaine or methamphetamine abuse History obtained from others: Consults: Cardiology (Dr. Hernandez), internal medicine (Dr. Torrez) MDM Narrative: Patient was initially hypertensive otherwise hemodynamically stable and afebrile. No focal cardiopulmonary abnormalities I considered the following differential diagnosis: ACS, pneumonia, PE, anemia, electrolyte disturbance, breast cancer, breast abscess I obtained a broad lab and imaging workup to further elucidate the etiology of the patient's complaints. Given breast symptoms I wanted to obtain a confirmatory ultrasound however this was not available at this time given there is no staff available to conduct the study. Aside opted for CT scan of the patient's chest to further elucidate if there is a PE versus any signs of mass or infection in the right breast ALL IMAGES (IF OBTAINED) HAVE BEEN PERSONALLY REVIEWED AND INTERPRETED BY MYSELF. EKG with n sinus bradycardia, left axis deviation, no obvious ischemic changes Initial high-sensitivity troponin elevated consistent with myocardial ischemia, repeat high-sensitivity troponin continues to uptrend CBC with leukocytosis suggestive of s systemic inflammation, no anemia or thrombocytopenia BMP without significant Paty normalities, there is no anion gap to suggest endorgan hypoperfusion, there is CKD BNP elevated consistent with increased myocyte stretch I have personally reviewed the patient's chest x-ray. Chest x-ray is unremarkable for pulmonary edema, pneumothorax, pneumonia or focal cardiopulmonary abnormality. CT scan of the chest shows no evidence of PE, noted stranding in the right breast concerning for infection or mastitis The synthesis of the patient's labs, images, history and physical exam are consistent with NSTEMI, ?breast infection or mass. No evidence of acute STEMI. No evidence of PE. Patient's right breast exam is concerning for breast cancer versus breast infection. Given white blood cell count and signs of stranding and other infectious changes on patient's CT I gave her empiric vancomycin. Patient was admitted to PCU stable condition after starting heparin drip as per Dr. Mueller's recommendations. The patient and/or family, caregivers express understanding. The patient and/orfamily, caregivers agrees with the plan. Shared decision making: I will have a discussion with the patient and or visitors regarding risk/benefits of further testing or admission. They will be made aware of of the risk/benefits inherent in this decision they will be given the opportunity tovoice understanding. Total critical care time today provided was at least 0 minutes. This excludes separately billable procedures. Critical care time (if documented) is secondary to the patient having high probability of clinically significant/life threatening deterioration in the patient's condition which required my urgent intervention. Impression: 1. Chest pain 2. Breast mass 3. NSTEMI 4. Leukocytosis 5. CKD 6. Right breast mastitis Dispo: Admit Lab Data Attestation: I reviewed the patient's lab results. Labs: Laboratory Results - last 24 hr 07/25/23 18:05 WBC 19.0 H RBC 4.88 Hgb 13.9 Hct 43.2 MCV 88.5 MCH 28.5 MCHC 32.2 RDW Std Deviation 45.2 H RDW Coeff of Rory 14.1 Plt Count 429 MPV 10.6 Immature Gran % (Auto) 0.500 Neut % (Auto) 88.1 H Lymph % (Auto) 5.4 L Tillman % (Auto) 5.4 Eos % (Auto) 0.1 Baso % (Auto) 0.5 Absolute Neuts (auto) 16.7 H Absolute Lymphs (auto) 1.03 Nucleated RBC % 0 Radiography Diagnostic Testing: Clinical Impression(s) from Imaging Studies Chest X-Ray 07/25/23 17:50 IMPRESSION: No radiographic evidence of acute cardiopulmonary disease. Electronically Signed: Сергей Altman DO at 18:23 EST Reading Location ID and State: [facility] / [place] Tel [phone], Service support , Discharge Plan Triage Chief Complaint: Chest Pain ED Provider: Valentin Ceballos Dx/Rx/DC Orders Primary Care Provider: Awa Hargrove Referrals: Awa Hargrove DO [Primary Care Provider] - What to do if you have Problems For any increased pain, shortness of breath, bleeding, nausea or vomiting, chestpain, or any unexpected problems, contact your Primary Care Provider. Call [facility] ([phone]) or report to the closest Emergency Room. Call 911 if necessary. 07/25/232126 <Electronically signed by Valentin Ceballos DO> Cosigner Signature (if applicable): CC: Dr. Awa Hargrove DO ~ Signed [facility] Work Phone: Consult note Author Jules Hudson [facility] December 01, 2023 2:20pm Note Date/Time December 01, 2023 2:2 0pm [facility] Medical Records Department [address] [place] [id number] Consultation - Surgical 12/01/23 1416 MR#: [id number] Acct: [id number] Name: KARY HADDAD Rep #:[id number] : 1955 68 From: Jules pope MD PCP: Dr. Awa Hargroev, DO Status:REG ER Location: ED Assessment & Plan Assessment/Plan (1) Upper GI bleed: PLAN: Plan The patient seems to be having at least 1 episode of upper GI bleeding and she is having upper GI pain. She has CT scan today and a CT scan revealed a 2.7 x 2.7 cm mass in the right upper quadrant at the C-loop of the duodenum. This wasread as possible mesenteric lymph node versus mesenteric mass. I also believe the pylorus looks thickened on the CT scan. She does have an appendicolith and that is why I was originally called. There is no inflammation around the appendix and she does not have any lower abdominal pain or nausea or vomiting. I am concerned for possible ulceration versus malignancy in the upper GI tract. I do not believe she has appendicitis given the fact that she does not have any lower abdominal pain or nausea or vomiting and the CT scan does not show any inflammation around her appendix. 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 I would like to perform an EGD tomorrow to evaluate. I discussed with the admitting team. She could have full liquids until midnight and then n.p.o. after midnight and I will plan for EGD tomorrow to evaluate. I explained endoscopy in detail to the patient. I explained the risks includingbut not limited to stroke or heart attack with anesthesia, perforation of the GItract, bleeding, infection. I explained that any of these could necessitate further emergency surgery. The patient understands and all questions were answered sufficiently. The patient wishes to proceed with procedure. Jules Hudson MD Pager: [facility] [address] [place] [address], [address] [place] [address] Office: HPI Consult Data Date of Consult: 12/01/23 HPI Narrative HPI Narrative: KARY HADDAD, is a 68 F who presents with upper abdominal pain and black tarry stools. The patient reports that she had none of the symptoms a week ago. She said this past Saturday she started having upper abdominal pain and felt very crampy and sat down to have a bowel movement had a large black tarry bowel movement. The patient reports that she has remained painful throughout the week. She says she has not had any more bleeding or black tarry bowel movementsbut she still has upper abdominal pain and upper back pain. She does not have any lower abdominal pain. She denies any diarrhea. She denies nausea or vomiting. She denies fevers or chills. [facility] Medical History (Updated 12/01/23 @ 14:[address] Jules Hudson MD) CKD (chronic kidney disease) High cholesterol Hypertension Home Medications clonidine HCl 0.3 mg tablet 0.3 mg PO Q8H BP 07/25/23 [History Last Taken Unknown] ergocalciferol (vitamin D2) 1,250 mcg (50,000 unit) capsule (Vitamin D2) 50,000 unit PO QWEEK supplement 07/25/23 [History Last Taken Unknown] fenofibrate 54 mg tablet 54 mg PO DAILY CHOLESTEROL 07/25/23 [History Last Taken Unknown] lisinopril 40 mg tablet 40 mg PO BID BP 07/25/23 [History Last Taken Unknown] metoprolol tartrate 100 mg tablet 100 mg PO Q12H BP 07/25/23 [History Last Taken Unknown] multivitamin with folic acid 400 mcg tablet (Tab-A-Marcella) 1 tab PO DAILY supplement 07/25/23 [History Last Taken Unknown] spironolactone 25 mg tablet 25 mg PO DAILY DIURESIS 07/25/23 [History Last Taken Unknown] Allergy/AdvReac Type Severity Reaction Status Date / Time No Known Allergies Allergy Verified 12/01/23 10:09 Social History Smoking Status: Never smoker ROS Constitutional Constitutional: Reports anorexia; Denies chills or fatigue Eyes Eyes: Denies blurry vision ENT HEENT: Denies abnormal hearing Cardiovascular Cardiovascular: Denies chest pain Respiratory/Chest Respiratory/Chest: Denies cough or dyspnea Gastrointestinal Gastrointestinal: Reports abdominal pain and melena; Denies constipation, diarrhea, nausea or vomiting Genitourinary Genitourinary: Denies change in urinary stream Musculoskeletal Musculoskeletal: Denies abnormal gait Integumentary Integumentary: Denies new lesions Neurologic Neurologic: Denies abnormal gait Psychiatric Psychiatric: Denies anxiety Physical Exam Const alert and oriented x3 HEENT normocephalic Eyes PERRL Resp normal respiratory effort Cardio Rate: regular rate Rhythm: regular rhythm GI soft to palpation Inspection: Negative for abdominal distention Palpation: tender epigastric Extremity normal to inspection Neuro CN's II-XII intact bilaterally Lab / Micro Data 12/01/23 10:35 12/01/23 10:35 Labs: Laboratory Results - last 24 hr 12/01/23 10:35: WBC 12.1 H, RBC 3.87 L, Hgb 11.1 L, Hct 34.7 L, MCV 89.7, MCH 28.7, MCHC 32.0, RDW Std Deviation 45.1 H, RDW Coeff of Rory 13.9, Plt Count 401,MPV 10.5, Immature Gran % (Auto) 0.600, Neut % (Auto) 71.5 H, Lymph % (Auto) 16.6 L, Tillman % (Auto) 8.4, Eos % (Auto) 2.2, Baso % (Auto) 0.7, Absolute Neuts (auto) 8.7 H, Absolute Lymphs (auto) 2.01, Nucleated RBC % 0, PT 14.6, INR 1.1, APTT 28.2, Sodium 139, Potassium 3.9, Chloride 109 H, Carbon Dioxide 23.0, AnionGap 7, BUN 52 H, Creatinine 1.86 H, Estim Creat Clear Calc 25.91, Est GFR (MDRD)Af Amer 34 L, Est GFR (MDRD) Non-Af 28 L, BUN/Creatinine Ratio 28.0 H, Glucose 139 H, Lactic Acid 1.3, Calcium 9.4, Total Bilirubin 0.40, Direct Bilirubin 0.12, AST 18, ALT 20, Alkaline Phosphatase 76, Total Protein 6.9, Albumin 3.5, Globulin 3.4 Micro: Microbiology 12/01/23 13:00 Stool Stool Occult Blood (ABRAHAM) - Final Imaging Radiology Impression Abdomen/Pelvis CT 12/01/23 11:08 IMPRESSION: 1. There are multiple colonic diverticula consistent with diverticulosis. No visualized colonic masses or bowel dilatation or high density hemorrhagic fluid within the colon or rectosigmoid junction on the current study. A nuclear medicine RBC scan can be obtained if there is continued clinical concern for GI bleeding. 2. The appendix contains a large appendicolith/6 calcified stone at its origin that measures 9.7 mm in diameter. The appendix is also thickened with a total diameter maximally measuring 1.05 cm in diameter, however there is no periappendiceal inflammatory stranding or active edema in the mucosal wall of the appendix and this is likely due to chronic inflammation or sequela from an appendix mucocele or similar process. Electronically Signed: Jeremie Hernandez MD at 12:39 EDT , 12/01/23 1420 <Electronically signed by Jules Hudson MD> Cosigner Signature (if applicable): CC: Dr. Awa Hargrove, DO~ Signed [facility] Work Phone: Evaluation noteNo assessment information available [facility] Work Phone: Evaluation note* Diagnosis Onset Date Resolution Status Hypertensive emergency without congestive heart failur e acute Infection acute NSTEMI (non-ST elevated myocardial infarction) acute Resistant hypertension acute CKD (chronic kidney disease) chronic [facility] Work Phone: Evaluation note* Diagnosis Onset Date Resolution Status Infection acute CKD (chronic kidney disease) chronic Hypertensive emergency witho ut congestive heart failure resolved NSTEMI (non-ST elevated myocardial infarction) resolved Resistant hypertension resol garima [facility] Work Phone: Evaluation note* Diagnosis Onset Date Resolution Status Appendicolith acute Back pain acute Duodenal mass acute Leukocytosis acute Upper GI bleed acute [facility] Work Phone: Evaluation note* Diagnosis Onset Date Resolution Status Appendicolith acute Back pain acute Duodenal mass acute Duodenal ulcer acute Leukocytosis acute Upper GI bleed acute [facility] Work Phone: Evaluation note* Diagnosis Duodenal ulcer with hemorrhage Chronic or unspecified duodenal ulcer with hemorrhage, without mention of obstruction [facility] Pre-op examination- Primary Preoperative examination, unspecified Duodenal ulcer with hemorrhage Chronic or unspecified duodenal ulcer with hemorrhage, without mention of obstruction Pre-op examination Preoperative examination, unspecified Coronary artery disease involving peoria coronary artery of peoria heart without angina pectoris Adrenal nodule (HCC) Unspecified disorder of adrenal glands Primary hypertension Unspecified essential hypertension Mixed hyperlipidemia Coronary artery disease involving peoria coronary artery of pe[place] heart without angina pectoris Adrenal nodule (HCC) Unspecified disorder of adrenal glands HTN (hypertension) Unspecified essential hypertension Mixed hyperlipidemia * Assessment & Plan Note - Noemy Jaramillo APRN.CNP - 03/23/2024 11:22 AM EDT Associated Problem(s): Mixed hyperlipidemia Fenofibrate- last dose taken today. Continue as prescribed. * Assessment & Plan Note - Nomey Jaramillo APRN.CNP - 03/23/2024 11:21 AM EDT Associated Problem(s): HTN (hypertension) Lisinopril, Clonidine, Spironolactone, and Metoprolol- last doses taken today. Continue as prescribed. * Assessment & Plan Note - Noemy Jaramillo APRN.CNP - 03/23/2024 11:18 AM EDT Associated Problem(s): Adrenal nodule (HCC) EGD today. * Assessment & Plan Note - Noemy Jaramillo APRN.CNP - 03/23/2024 11:14 AM EDT Associated Problem(s): Coronary artery disease involving peoria coronary artery of pe[place] heart without angina pectoris MA in 07/2023. No cardiac stents. Does not follow with cardiology. Managed by PCP. Patient has all medical care in [place]- unable to access any cardiac imaging through [facility] or Care Everywhere. * Assessment & Plan Note - Noemy Jaramillo APRN.CNP - 03/23/2024 10:48 AM EDT Associated Problem(s): Pre-op examination see note for medical conditions which may affect marco-operative course that were addressed at today's visit. [facility] Pre-op examination- Primary Preoperative examination, unspecified Duodenal ulcer with hemorrhage Chronic or unspecified duodenal ulcer with hemorrhage, without mention of obstruction Pre-op examination Preoperative examination, unspecified Coronary artery disease involving peoria coronary artery of pe[place] heart without angina pectoris Adrenal nodule (HCC) Unspecified disorder of adrenal glands Primary hypertension Unspecified essential hypertension Mixed hyperlipidemia Coronary artery disease involving peoria coronary artery of peoria heart without angina pectoris Adrenal nodule (HCC) Unspecified disorder of adrenal glands Mixed hyperlipidemia SDH (subdural hematoma) (HCC)- Primary Subdural hemorrhage [facility] Diagnosis Pre-op examination- Primary Preoperative examination, unspecified Duodenal ulcer with hemorrhage Chronic or unspecified duodenal ulcer with hemorrhage, without mention of obstruction Pre-op examination Preoperative examination, unspecified Coronary artery disease involving peoria coronary artery of pe[place] heart without angina pectoris Adrenal nodule (HCC) Unspecified disorder of adrenal glands Primary hypertension Unspecified essential hypertension Mixed hyperlipidemia Coronary artery disease involving peoria coronary artery of pe[place] heart without angina pectoris Adrenal nodule (HCC) Unspecified disorder of adrenal glands Mixed hyperlipidemia Anemia, unspecified type- Primary [facility] Diagnosis Pre-op examination- Primary Preoperative examination, unspecified Duodenal ulcer with hemorrhage Chronic or unspecified duodenal ulcer with hemorrhage, without mention of obstruction Pre-op examination Preoperative examination, unspecified Coronary artery disease involving peoria coronary artery of pe[place] heart without angina pectoris Adrenal nodule (HCC) Unspecified disorder of adrenal glands Primary hypertension Unspecified essential hypertension Mixed hyperlipidemia Coronary artery disease involving peoria coronary artery of peoria heart without angina pectoris Adrenal nodule (HCC) Unspecified disorder of adrenal glands Mixed hyperlipidemia 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, not on chronic dialysis (HCC)- Primary [facility] Diagnosis Onset Date Resolution Status Admit Date Anemia acute May 9:05am Dementia acute May 9:05am [facility] Work Phone: History and physical note Author Phillip Kingsley [facility] December 01, 2023 3:13pm Note Date/Time December 01, 2023 3:1 2pm [facility] Medical Records Department [address] [facility] [place] [address] H&P Exam - Hospitalist 12/01/23 1507 MR#: [id number] Acct: [id number] Name: KARY HADDAD Rep #:[id number] : 1955 68 From: Phillip Kingsley DO PCP: Dr. Awa Hargrove DO Status:ADM PING Location: [address] HPI - General General Date of Admission: 12/01/23 Date of Service: 12/01/23 Chief Complaint: abdominal pain HPI Narrative KARY HADDAD, is a 68 F who presents with abdominal pain. Abdominal pains been going on for 1 week. It is more or less constant, described as pain. Generalized all over her abdomen and not specific. No exacerbating or relievingfactors. In the midst of all this, patient did have 1 day where she had a largeamount of tarry stool. She presented to the emergency room for evaluation. Shehad a CAT scan that showed colonic diverticula and large pendulous in the appendix. It also mentioned something in the duodenum measuring 2.7 x 2.7 cm right of the C-loop of the duodenum in the right upper quadrant. Patient was seen by general surgery who was concerned that her abdominal pain not being due to the [place] but possibly due to this area around the duodenum and concern of a GI bleed. Tentative plan is for endoscopy on December 01. [facility] Medical History (Updated 12/01/23 @ 15:[address] Phillip Kingsley DO) CAD (coronary artery disease) Cerebral palsy CKD (chronic kidney disease) High cholesterol Hypertension Home Medications clonidine HCl 0.3 mg tablet 0.3 mg PO Q8H BP 07/25/23 [History Last Taken Unknown] ergocalciferol (vitamin D2) 1,250 mcg (50,000 unit) capsule (Vitamin D2) 50,000 unit PO QWEEK supplement 07/25/23 [History Last Taken Unknown] fenofibrate 54 mg tablet 54 mg PO DAILY CHOLESTEROL 07/25/23 [History Last Taken Unknown] lisinopril 40 mg tablet 40 mg PO BID BP 07/25/23 [History Last Taken Unknown] metoprolol tartrate 100 mg tablet 100 mg PO Q12H BP 07/25/23 [History Last Taken Unknown] multivitamin with folic acid 400 mcg tablet (Tab-A-Marcella) 1 tab PO DAILY supplement 07/25/23 [History Last Taken Unknown] spironolactone 25 mg tablet 25 mg PO DAILY DIURESIS 07/25/23 [History Last Taken Unknown] Allergy/AdvReac Type Severity Reaction Status Date / Time No Known Allergies Allergy Verified 12/01/23 10:09 Family History (Updated 12/01/23 @ 15:[address] Phillip Kingsley DO) Other Heart disease Social History (Updated 12/01/23 @ 15:[address] Phillip Kingsley DO) Smoking Status: Never smoker alcohol intake: never substance use type: does not use ROS ROS Narrative Hard of hearing. All review of systems were negative except as mentioned above in the history of present illness and the other review of systems. Vital Signs Vital Signs Vital Signs: 12/01/23 10:07 12/01/23 11:29 12/01/23 12:49 Temperature 36.7 C 36.7 C 36.7 C Temperature Source Temporal Oral Oral Pulse Rate 57 L 53 L 50 L Respiratory Rate 16 18 18 Blood Pressure 118/82 H 125/72 H 108/72 Blood Pressure Mean 94 89 84 Pulse Ox 97 97 97 Oxygen Delivery Method Room Air Room Air Room Air 12/01/23 14:15 Temperature 36.6 C Temperature Source Pulse Rate 48 L Respiratory Rate 14 Blood Pressure 128/76 H Blood Pressure Mean 93 Pulse Ox 98 Oxygen Delivery Method Weight Weight: 74.072 kg Body Mass Index (BMI) 30.8 Physical Exam Narrative - Physical Exam General: Alert, Oriented x3, Cooperative. Hard of hearing HEENT: Atraumatic, PERRLA, EOMI, Normocephalic edentulous Oral: Moist Mucosa, No Gingival or Mucosal Lesions/ Ulcerations Neck: Supple, No JVD, Negative Carotid Bruits Lungs: Clear to auscultation, Normal air movement Cardiovascular: Regular rate, Normal S1, Normal S2, No murmurs Abdomen: Bowel Sounds Present, Soft, Non-Distended, No Hepato-splenomegaly. Generalized abdominal pain. Extremities: No clubbing, No cyanosis, No edema, Capillary Refill Less than 3 Seconds Skin: No rashes, No breakdown Musculoskeletal: No Tenderness to Palpation of Joints or Extremities Neurological: Neuro grossly intact Psych/Mental Status: Normal Affect, Appropriate Results Lab / Micro Data Attestation: I reviewed the patient's lab results. 12/01/23 10:35 12/01/23 10:35 Labs: Laboratory Results - last 24 hr 12/01/23 10:35: WBC 12.1 H, RBC 3.87 L, Hgb 11.1 L, Hct 34.7 L, MCV 89.7, MCH 28.7, MCHC 32.0, RDW Std Deviation 45.1 H, RDW Coeff of Rory 13.9, Plt Count 401,MPV 10.5, Immature Gran % (Auto) 0.600, Neut % (Auto) 71.5 H, Lymph % (Auto) 16.6 L, Tillman % (Auto) 8.4, Eos % (Auto) 2.2, Baso % (Auto) 0.7, Absolute Neuts (auto) 8.7 H, Absolute Lymphs (auto) 2.01, Nucleated RBC % 0, PT 14.6, INR 1.1, APTT 28.2, Sodium 139, Potassium 3.9, Chloride 109 H, Carbon Dioxide 23.0, AnionGap 7, BUN 52 H, Creatinine 1.86 H, Estim Creat Clear Calc 25.91, Est GFR (MDRD)Af Amer 34 L, Est GFR (MDRD) Non-Af 28 L, BUN/Creatinine Ratio 28.0 H, Glucose 139 H, Lactic Acid 1.3, Calcium 9.4, Total Bilirubin 0.40, Direct Bilirubin 0.12, AST 18, ALT 20, Alkaline Phosphatase 76, Total Protein 6.9, Albumin 3.5, Globulin 3.4 Micro: Microbiology 12/01/23 13:00 Stool Stool Occult Blood (ABRAHAM) - Final Imaging Radiology Impression Abdomen/Pelvis CT 12/01/23 11:08 IMPRESSION: 1. There are multiple colonic diverticula consistent with diverticulosis. No visualized colonic masses or bowel dilatation or high density hemorrhagic fluid within the colon or rectosigmoid junction on the current study. A nuclear medicine RBC scan can be obtained if there is continued clinical concern for GI bleeding. 2. The appendix contains a large appendicolith/6 calcified stone at its origin that measures 9.7 mm in diameter. The appendix is also thickened with a total diameter maximally measuring 1.05 cm in diameter, however there is no periappendiceal inflammatory stranding or active edema in the mucosal wall of the appendix and this is likely due to chronic inflammation or sequela from an appendix mucocele or similar process. Electronically Signed: Jeremie Hernandez MD at 12:39 EDT , Chest X-Ray 12/01/23 14:13 IMPRESSION: 1. Degenerative changes, as described above. No demonstrated acute cardiopulmonary process. Electronically Signed: Jeremie Hernandez MD at 14:50 EDT , Assessment & Plan Assessment/Plan (1) Duodenal mass: (2) Upper GI bleed: PLAN: Plan Duodenal mass * Unclear what that is. If it is indeed a mass, lymph nodes, ulceration * General surgery on consultation and plan for EGD on the first. Suspected GI bleed * Patient was complaining of tarry stools earlier in the week * Will start the patient on pantoprazole IV twice daily. * No active bleeding so we will just check a hemoglobin in the morning. * Continue IV fluids for now until patient can eat adequately. Chronic conditions * Hypertension: Continue with clonidine, lisinopril and metoprolol tartrate. H old spironolactone while on IV fluids. * Hyperlipidemia: Hold fenofibrate for now. * History of CAD: Stable. * Cerebral palsy: No acute issues VTE prophylaxis with SCDs Charges/Coding Visit Charges Inpatient E&M: 25145 Init Hosp L3 12/01/23 1513 <Electronically signed by Phillip Kingsley DO> Cosigner Signature (if applicable): CC: Dr. Phillip Kingsley DO; Dr. Awa Hargrove DO~ Signed [facility] Work Phone: Resgfc for referral (narrative)* Outpatient Procedure (Routine) - Closed Specialty Diagnoses / Procedures Referred By Contac t Referred To [facility] DIGESTIVE DISEASE SCAMMON Diagnoses Duodenal ulcer with hemorrhage Procedures EGD DIAGNOSTIC ESOPHAGOGASTRODUODENOSC OPY TRANSORAL DIAGNOSTIC Jules Alvarez MD [address] [place] [address] [address] Referral ID Status Reason Start Date Expiration Date V isits Requested Visits Authorized [id number] Closed Auto-Generate d Referral 02/21/2024 02/20/2025 1 1 [facility]No reason for referral information availableWPremier [facility] Work Phone: Reypog for visit Narrative* Outpatient Procedure (Routine) - Closed Specialty Diagnoses / Procedures Referred By Contac t Referred To [facility] DISEASE SCAMMON Diagnoses Duodenal ulcer with hemorrhage Procedures EGD DIAGNOSTIC ESOPHAGOGASTRODUODENOSC OPY TRANSORAL DIAGNOSTIC Jules Alvarez MD [address] [place] [address] [facility] [address] [place] [address] Referral ID Status Reason Start Date Expiration Date V isits Requested Visits Authorized [id number] Closed Auto-Generate d Referral 02/21/2024 02/20/2025 1 1 [facility] Chief Complaint and Reason for Visit Chief Complaint CEREBAL PALSY/ RX HE RE Chief Complaint NSTEMI Chief Complaint NSTEMI NSTEMI NSTEMI NSTEMI NSTEMI Reason for Visit Hypertensive emergen cy without congestive heart failure Infection NSTEMI (non-ST elevated myocardial infarction) Resistant hypertension CKD (chronic kidney disease) Chief Complaint CP NSTEMI NSTEMI NSTEMI NSTEMI NSTEMI Dysphagia, unspecified Reason for Visit Infection CKD (chronic kidney disease) Hypertensive emergency without congestive heart failure NSTEMI (non-ST elevated myocardial infarction) Resistant hypertension Chief Complaint Dysphagia, unspecifi ed SWALLOWING TECHNIQUES. RX HERE ABD PAIN DUODENAL MASS APPENDICOLITH, ABD PAIN, DUODENAL MASS Reason for Visit Appendicolith Back pain Duodenal mass Leukocytosis Upper GI bleed Chief Complaint Dysphagia, unspecifi ed SWALLOWING TECHNIQUES. RX HERE ABD PAIN DUODENAL MASS APPENDICOLITH, ABD PAIN, DUODENAL MASS DUODENAL MASS DUODENAL MASS DUODENAL MASS DUODENAL MASS Reason for Visit Appendicolith Back pain Duodenal mass Duodenal ulcer Leukocytosis Upper GI bleed Chief Complaint Admit Date ALF LABWORK August 27, 2024 5:00am ALF LAB WORK August 31 5:00am ALF LAB WORK September 21, 2024 5:00am ALF LAB WORK November 30, 2024 4 :00am Chief Complaint Admit Date ALF LAB WORK November 30, 2024 4 :00am ALF LAB WORK December 02, 2024 5: 00am LABWORK January 13, 2025 5:00a m Chief Complaint Admit Date ALF LAB WORK February 12, 2025 7: 15am ALF LAB WORK March 30, 2025 1: 10am ALF LAB WORK April 06, 2025 4 :00am LABWORK May 04, 2025 5:00am DECLINING MENTAL STATUS May 17, 2025 9:05am Reason for Visit Admit Date Anemia May 17, 2025 9:05am Dementia May 17, 2025 9:05am Advance Directives Date Activated Date Inactivated Comments 06/18/2024 9:54 PM 06/24/2024 9:06 PM Question Answer Comments Full Code Order Discussed With: Surrogate Salma on Maker Surrogate Decision Maker Name: Jeanette Craven Advance Directive Response Recorded Date/ Time Living Will No July 25, 023 5:08pm Power of Insulation Cutter No July 25, 2023 5:08pm Advance Directive Response Recorded Date/ Time Living Will No July 25 023 10:10pm Power of Insulation Cutter No July 25, 2023 10:10pm Advance Directive Response Recorded Date/ Time Living Will No December 01, 2023 10:38am Power of Insulation Cutter No November 30 10:38am Advance Directive Response Recorded Date/ Time Living Will No December 01, 2023 3:43pm Power of Insulation Cutter No November 30 3:43pm Date Activated Date Inactivated Comments 06/18/2024 9:54 PM Question Answer Comments Full Code Order Discussed With: Surrogate Fosterisi on Maker Surrogate Decision Maker Name: Jeanette Craven Date Activated Date Inactivated Comments 06/18/2024 9:54 PM Reason for Referral Specialty Diagnoses / Procedures Referred By Contac t Referred To Contact CT IMAGING Diagnoses SDH (subdural hematoma) (HCC) Procedures CT BRAIN WO IVCON CT HEAD/BRAIN W/O CONTRAST MATERIAL Becca Garcia PA-C [address] [place] [address] [place] [address] Referral ID Status Reason Start Date Expiration Date Visits Requested Visits Authorized [id number] New Request Auto-Generat ed Referral 07/20/2025 1 1 Family History No Family History Records Found Relationship Condition Age at Onset Recorded Date/T barron mother Cardiac disease Unknown father Cardiac disease Unknown Summary Purpose Additional Source Comments Goals (unrecognized section and content) Goals may be documented in a n alternate sectionGoals may be documented in an alternate sectionGoals may be documented in an alternate sectionGoals may be documented in an alternate sectionGoals may be documented in an alternate sectionGoals may be documented in an alternate section Care Teams (unrecognized sec tion and content) Team Status: Active Member Role Status Dates Dr. Awa Hargrove DO Family Provider Active Dr. Awa Hargrove DO Primary Care Provider Active Team Status: Active Member Role Status Dates Dr. Awa Hargrove DO Primary Care Provider Active Dr. Valentin Ceballos DO Emergency Provider Active Dr. Melecio Torrez MD Admit Provider, Attending Prov ider Active Team Status: Inactive Member Role Status Dates Dr. Awa Hargrove DO Primary Care Provide r, Attending Provider, Referring Provider Active Team Status: Active Member Role Status Dates Dr. Awa Hargrove DO Primary Care Provider Active Dr. Valentin Ceballos DO Emergency Provider Active Dr. Melecio Torrez MD Admit Provider, Attending Provider, Other Provider Active Team Status: Active Member Role Status Dates Dr. Awa Hargrove DO Primary Care Provider Active Dr. Valentin Ceballos DO Emergency Provider Active Dr. Melecio Torrez MD Admit Provider, Other Provider Active Dr. Ronald Lowe MD Other Provider Active Dr. Zelalem Hernandez MD Attending Provider, Other Provid er Active Team Status: Active Member Role Status Dates Dr. Awa Hargrove DO Primary Care Provider Active Dr. Valentin Ceballos , DO Emergency Provider Active Dr. Melecio Torrez MD Admit Provider, Other Provider Active Dr. Ronald Lowe MD Attending Provider, Other Provid er Active Dr. Zelalem Hernandez MD Other Provider Active Team Status: Inactive Member Role Status Dates Dr. Awa Hargrove , DO Primary Care Provider Active Dr. Valentin Ceballos , DO Emergency Provider Active Dr. Melecio Torrez MD Admit Provider, Other Provider Active Dr. Ronald Lowe MD Attending Provider Active Dr. Zelalem Hernandez MD Other Provider Active Team Status: Active Member Role Status Dates Dr. Awa Hargrove DO Primary Care Provider Active Dr. Valentin Ceballos , DO Referring Provider, Emergency P rovider Active Dr. Melecio Torrez MD Admit Provider, Attending Provider, Other Provider Active Team Status: Active Member Role Status Dates Dr. wAa Hargrove DO Primary Care Provider Active Dr. Valentin Ceballos DO Emergency Provider Active Dr. Melecio Torrez MD Admit Provider, Other Provider Active Dr. Ronald Lowe MD Other Provider Active Dr. Zelalem Hernandez MD Attending Provider , Referring Provider, Other Provider Active Team Status: Active Member Role Status Dates Dr. Awa Hargrove DO Primary Care Provider Active Dr. Zelalem Hernandez MD Attending Provider Active Team Status: Active Member Role Status Dates Dr. Awa Hargrove DO Primary Care Provider Active Dr. Zelalem Hernandez MD Attending Provider, Referring Pr ovider Active Team Status: Active Member Role Status Dates Dr. Awa Hargrove DO Primary Care Provider Active Dr. Raisa Calhoun MD Emergency Provider Active Dr. Jlues Hudson MD Attending Provider Active Team Status: Active Member Role Status Dates Dr. Awa Hargrove DO Primary Care Provider Active Dr. Raisa Calhoun MD Emergency Provider Active Dr. Claudy Munoz MD Admit Provider, Other Pro vider Active Dr. Phillip Kingsley , DO Attending Provider Active Team Status: Active Member Role Status Dates Dr. Awa Malys , DO Primary Care Provider Active Dr. Raisa Calhoun MD Emergency Provider Active Dr. Claudy Munoz MD Admit Provider, Attending Provider Active Team Status: Active Member Role Status Dates Dr. Aaw Hargrove DO Primary Care Provider Active Dr. Raisa Calhoun MD Emergency Provider Active Dr. Claudy Munoz MD Admit Provider, Other Pro vider Active Dr. Jules Hudson MD Attending Provider, Other Provider Active Team Status: Active Member Role Status Dates Dr. Awa Hargrove DO Primary Care Provider Active Dr. Raisa Calhoun MD Emergency Provider Active Dr. Claudy Munoz MD Admit Provider, Other Pro vider Active Dr. Jules Hudson MD Other Provider Active Dr. Ronald Lowe MD Attending Provider, Other Provid er Active Team Status: Active Member Role Status Dates Dr. Awa Hargrove DO Primary Care Provider Active Dr. Raisa Calhoun MD Emergency Provider Active Dr. Claudy Munoz MD Admit Provider, Other Pro vider Active Dr. Jules Hudson MD Attending Provider, Other Provider Active Dr. Ronald Lowe MD Other Provider Active Team Status: Inactive Member Role Status Dates Dr. Awa Hargrove DO Primary Care Provider Active Dr. Raisa Calhoun MD Emergency Provider Active Dr. Claudy Munoz MD Admit Provider, Other Pro vider Active Dr. Jules Hudson MD Other Provider Active Dr. Ronald Lowe MD Attending Provider Active Couples Therapist Relationship Specialty Start Date End Date Awa Hargrove DO [address] [place] [address] PCP - General Family Medicine 02/19/24 Couples Therapist Relationship Specialty Start Date End Date Awa Hargrove DO [address] [place] [address] PCP - General Family Medicine 02/19/24 Couples Therapist Relationship Specialty Start Date End Date RubensAwa peñaloza DO [address] [place] [address] PCP - General Family Medicine 02/19/24 Couples Therapist Relationship Specialty Start Date End Date Awa Hargrove DO [address] [place] [address] PCP - General Family Medicine 02/19/24 Couples Therapist Relationship Specialty Start Date End Date Awa Hargrove DO [address] [place], [place] [address] PCP - General Family Medicine 02/19/24 Couples Therapist Relationship Specialty Start Date End Date Awa Hargrove DO [address] [place], [place] [address] PCP - General Family Medicine 02/19/24 Team Status: Active Member Role Status Dates Dr. Awa Hargrove DO Family Provider Active Dr. Phuc Barker MD Primary Care Provider Active Team Status: Inactive Member Role Status Dates Dr. Phuc Barker MD Primary Care Provider Active Start: August 27, 2024 End: August 27, 2024 [facility] Attending Provider Active Start: August End: August 27, 2024 Team Status: Inactive Member Role Status Dates Dr. Phuc Barker MD Primary Care Provider Active Start: August 31, 2024 End: August 31, 2024 Dr. Johana MCCLELLAND MD Attending Provider Active Start: August 31, 2024 End: August 31, 2024 Team Status: Inactive Member Role Status Dates Dr. Phuc Barker MD Primary Care Provider Active Start: September 21, 2024 End: September 21, 2024 Dr. Johana MCCLELLAND MD Attending Provider Active Start: September 21, 2024 End: September 21, 2024 Team Status: Inactive Member Role Status Dates Dr. Phuc Barker MD Primary Care Provider Active Start: November 30, 2024 End: November 30, 2024 Dr. Johana MCCLELLAND MD Attending Provider Active Start: November 30, 2024 End: November 30, 2024 Dr. Johana MCCLELLAND MD Referring Provider Active Start: November 30, 2024 End: November 30, 2024 Team Status: Active Member Role Status Dates Dr. Phuc Barker MD Primary Care Provider Active Start: December 02, 2024 Dr. Johana MCCLELLAND MD Attending Provider Active Start: December 02, 2024 Team Status: Inactive Member Role Status Dates Dr. Phuc Barker MD Primary Care Provider Active Start: December 02, 2024 End: December 02, 2024 Dr. Johana MCCLELLAND MD Attending Provider Active Start: December 02, 2024 End: December 02, 2024 Team Status: Inactive Member Role Status Dates Dr. Phuc Barker MD Primary Care Provider Active Start: January 13, 2025 End: January 13, 2025 Dr. Johana MCCLELLAND MD Attending Provider Active Start: January 13, 2025 End: January 13, 2025 Couples Therapist Relationship Specialty Start Date End Date Devendra Beverly DO [address] [place] [address] PCP - General Family Medicine 04/20/25 Team Status: Active Member Role/Relationship Status Dates Dr. Awa Hargrove DO Family Provider Active Dr. Phuc Barker MD Primary Care Provider Active Team Status: Active Member Role/Relationship Status Dates Dr. Phuc Barker MD Primary Care Provider Active Start: February 12, 2025 Dr. Devendra MCCLELLAND MD Attending Provider Active Start: February 12, 2025 Team Status: Active Member Role/Relationship Status Dates Dr. Phuc Barker MD Primary Care Provider Active Start: March 30, 2025 Dr. Devendra MCCLELLAND MD Attending Provider Active Start: March 30, 2025 Team Status: Active Member Role/Relationship Status Dates Dr. Phuc Barker MD Primary Care Provider Active Start: April 06, 2025 Dr. Devendra MCCLELLAND MD Attending Provider Active Start: April 06, 2025 Dr. Devendra MCCLELLAND MD Referring Provider Active Start: April 06, 2025 Team Status: Active Member Role/Relationship Status Dates Dr. Phuc Barker MD Primary Care Provider Active Start: May 04, 2025 Dr. Bonnie Simmons MD Attending Provider Active Start: May 04, 2025 Team Status: Inactive Member Role/Relationship Status Dates Dr. Phuc Barker MD Primary Care Provider Active Start: May 17, 2025 End: May 17, 2025 Dr. Phuc Barker MD Referring Provider Active Start: May 17, 2025 End: May 17, 2025 Dr. Giovanny Brady MD Attending Provider Active Start: May 17, 2025 End: May 17, 2025 Source Comments (unrecognize d section and content) In the event this informatio n is protected by the Federal Confidentiality of Alcohol and Drug Abuse Patient Records regulations: The Federal rules restrict any use of the information to criminally investigate or prosecute any alcohol or drug abuse patient.[facility] the event this information is protected by the Federal Confidentiality of Alcohol and Drug Abuse Patient Records regulations: The Federal rules restrict any use of the information to criminally investigate or prosecute any alcohol or drug abuse patient.[facility] the event this information is protected by the Federal Confidentiality of Alcohol and Drug Abuse Patient Records regulations: The Federal rules restrict any use of the information to criminally investigate or prosecute any alcohol or drug abuse patient.[facility] the event this information is protected by the Federal Confidentiality of Alcohol and Drug Abuse Patient Records regulations: The Federal rules restrict any use of the information to criminally investigate or prosecute any alcohol or drug abuse patient.[facility] HospitalIn the event this information is protected by the Federal Confidentiality of Alcohol and Drug Abuse Patient Records regulations: The Federal rules restrict any use of the information to criminally investigate or prosecute any alcohol or drug abuse patient.[facility]In the event this information is protected by the Federal Confidentiality of Alcohol and Drug Abuse Patient Records regulations: The Federal rules restrict any use of the information to criminally investigate or prosecute any alcohol or drug abuse patient.[facility] HospitalIn the event this information is protected by the Federal Confidentiality of Alcohol and Drug Abuse Patient Records regulations: The Federal rules restrict any use of the information to criminally investigate or prosecute any alcohol or drug abuse patient.[facility] HospitalIn the event this information is protected by the Federal Confidentiality of Alcohol and Drug Abuse Patient Records regulations: The Federal rules restrict any use of the information to criminally investigate or prosecute any alcohol or drug abuse patient.[facility] HospitalIn the event this information is protected by the Federal Confidentiality of Alcohol and Drug Abuse Patient Records regulations: The Federal rules restrict any use of the information to criminally investigate or prosecute any alcohol or drug abuse patient.[facility] Reason for Visit (unrecogniz ed section and content) Specialty Diagnoses / Procedures Referred By Contac t Referred To Contact CT IMAGING Diagnoses Duodenal ulcer with hemorrhage Procedures CT ABD/PEL W IVCON CT ABD & PELVIS W/CONTRAST Jules Alvarez MD [address] [place] [address] [place] [address] Referral ID Status Reason Start Date Expiration Date V isits Requested Visits Authorized [id number] Closed Auto-Generate d Referral 02/19/2024 03/20/2025 1 [address] Specialty Diagnoses / Procedures Referred By Contac t Referred To Contact CT IMAGING Diagnoses Duodenal ulcer with hemorrhage Procedures CT ABD/PEL W IVCON CT ABD & PELVIS W/CONTRAST Jules Alvarez MD [address] [place] [address] [place] [address] Reason Comments CoPat Start Reason Comments Electronic Communication Reason Comments New Patient Evaluation INFORMATION SOURCE (unrecogn ized section and content) DATE CREATED AUTHOR 05/01/[address] [facility] DATE CREATED AUTHOR AUTHOR'S PHILLIP ATSARAH 05/04/2025 [facility] FOR RECORDS PERTAINING TO PATIENTS WHO ARE [...] BE BASED ON THE PRIMARY CLINICAL RECORDS. [facility]. provides no warranty or guarantee of the accuracy or completeness of information in this document.
[2025-05-21 12:09] LABS: ANTINUCLEAR ANTIBODIES DIRECT Negative (Negative); Vitamin D 1,25-Dihydroxy 20.8 pg/mL (24.8-81.5)
[2025-05-25 15:08] LABS: Folate, Hemolysate Test > 620.0 ng/mL (Not Estab.); Folate, RBC (Hct) Test 26.0 % (34.0-46.6); Folates, RBC Test > 2385 ng/mL (>498); VITAMIN B6 41.6 ug/L (3.4-65.2); Vitamin B1, Thiamine 164.7 nmol/L (66.5-200.0)
== END | disposition home or self-care (01) ==
PROVIDERS: PCP Family Medicine; Referring Provider Psychiatry & Neurology Neurology; Visit Provider Psychiatry & Neurology Neurology
DX: D64.9 Anemia, unspecified (principal); F03.90 Unspecified dementia, unspecified severity, without behavioral disturbance, psychotic disturbance, mood disturbance, and anxiety; I10 Essential (primary) hypertension; Z86.2 Personal history of diseases of the blood and blood-forming organs and certain disorders involving the immune mechanism; R53.1 Weakness
CPT/HCPCS: 36415; 82140; 82607; 82652; 82728; 82747; 83540; 83735; 83883; 84207; 84425; 84443; 85014; 85652; 86038; 86225

== ENCOUNTER → 2025-06-01 | Outpatient (REF) | payer MEDICARE, MEDICAID, SELFPAY ==
[2025-06-01 09:35] LABS: AST(SGOT) 15 U/L (<=31); Alanine Aminotransfer ALT/SGPT 15 U/L (<=34); Albumin, Serum 4.2 g/dL (3.4-4.8); Alkaline Phosphatase 82 U/L (35-104); Anion Gap 16 (5-15); BUN 61 mg/dL (4-19); BUN/Creat Ratio 13.8 RATIO (10-20); Calcium,Total 9.3 mg/dL (7.6-11.0); Carbon Dioxide 19.1 mmol/L (21.0-32.0); Chloride 105 mmol/L (98-108); Globulin 2.3 g/dL (2.2-4.2); Glucose 132 mg/dL (70-99); Potassium 3.9 mmol/L (3.3-5.1)
[2025-06-01 09:51] LABS: Hematocrit 26.0 % (37-47); Hemoglobin 8.4 g/dL (12.0-15.0); Mean Corp Hgb Conc 32.3 g/dL (32-36); Mean Corpuscular Volume 98.1 fL (81-99); Mean Platelet Vol. 10.9 fl (6.2-12.0); Platelet Count 308 K/mm3 (150-450); RBC Distribution Width CV 13.2 % (11.6-14.6); RBC Distribution Width SD 46.5 fl (35.1-43.9); Red Blood Count 2.65 M/mm3 (4.2-5.4); White Blood Count 10.1 K/mm3 (4.4-11.0)
== END ==
LOC: OLS.SW 05:00
PROVIDERS: PCP Family Medicine
DX: N39.0 Urinary tract infection, site not specified (principal); F03.90 Unspecified dementia, unspecified severity, without behavioral disturbance, psychotic disturbance, mood disturbance, and anxiety; N18.9 Chronic kidney disease, unspecified
CPT/HCPCS: 36415; 80053; 84100; 85027

== ENCOUNTER → 2025-06-03 | Outpatient (REF) | payer MEDICARE, MEDICAID, SELFPAY ==
[2025-06-03 10:03] LABS: Anion Gap 17 (5-15); BUN 58 mg/dL (4-19); BUN/Creat Ratio 13.4 RATIO (10-20); Calcium,Total 9.6 mg/dL (7.6-11.0); Carbon Dioxide 21.4 mmol/L (21.0-32.0); Chloride 104 mmol/L (98-108); Glucose 136 mg/dL (70-99); Potassium 3.8 mmol/L (3.3-5.1)
[2025-06-03 11:44] LABS: Mucous, Urine 0 SEEN /hpf (<or=2+)
[2025-06-03 11:51] LABS: Color, Urine Yellow (Yellow); Glucose, Dipstick 250 mg/dl (Normal); Ketone-Dipstick Negative (Negative); Leukocyte Esterase-Dipstick 500 /ul (Negative); Nitrite-Dipstick Negative (Negative); Occult Blood-Urine 25 /ul (Negative); Protein-Dipstick 100 mg/dl (Negative); Specific Gravity, Urine 1.010 (1.002-1.030); Urine Bilirubin Dipstick Negative (Negative)
[2025-06-03 12:01] LABS: Red Blood Cells-Urine 5-10 SEEN /hpf (0-5); Squamous Epithelial Cells - UA 5-10 SEEN /hpf (5-10)
[2025-06-03 12:34] LABS: Creatinine, Urine (random) 61.30 mg/dL (28.00-217.00); Protein, Urine (Random) 126.0 mg/dL (0.0-12.0); Protein:Creat Ratio 2055 mg/g CRE (0-200)
== END ==
LOC: OLS.SW 05:00
PROVIDERS: PCP Family Medicine
DX: N18.9 Chronic kidney disease, unspecified (principal); G80.9 Cerebral palsy, unspecified; R39.9 Unspecified symptoms and signs involving the genitourinary system
CPT/HCPCS: 36415; 80048; 81001; 82570; 84156

== ENCOUNTER → 2025-06-29 | Outpatient (REF) | payer MEDICARE, MEDICAID, SELFPAY ==
--- OUTSIDE RECORDS SUMMARY | 2025-06-29 04:20 | XMS RPT_ITS | CCD ---
Author Organization [facility] Care Team Providers Care Electronic Warfare Operator Name Role Phone Dr. Awa Hargrove Primary Care Provider Dr. Valentin Ceballos Emergency Provider Dr. Melecio Torrez Admit Provider Unavailable Dr. Melecio Torrez Attending Provider Unavailab Dr. Melecio Martinez Other Provider Unavailable Dr. Ronald Lowe Attending Provider Unavailable Dr. Ronald Lowe Other Provider Unavailable David, Dr. Masterson Other Provider David, Dr. Masterson Attending Provider Dr. Awa Hargrove Primary Care Provider [phone] David, Dr. Masterson Attending Provider David, Dr. Masterson Referring Provider Dr. Valentin Ceballos Referring Provider [phone] Dr. Awa Hargrove Primary Care Provider [phone] Raisa Calhoun Emergency Provider Dr. Jules Hudson Attending Provider Dr. Claudy Munoz Admit Provider Dr. Claudy Munoz Other Provider Dr. Phillip Kingsley Attending Provider Dr. Jules Hudson Other Provider Dr. Ronald Lowe Attending Provider Unavailable Dr. Ronald Lowe Other Provider Unavailable Malys DO, Awa A Primary Care Provider Mj LOIUS, Dr. Friend Primary Care Provider [facility] Attending Provid er Unavailable Lucita LOUIS, Dr. Vaughn Attending Provider Unavailjimenez Landrum MD, Dr. Vaughn Referring Provider Unavailjimenez Barker MD, Dr. Friend Primary Care Provider Lucita LOUIS, Dr. Vaughn Attending Provider UnavailDevendra Tejada DO Primary Care Provider [phone] AMY LARA Attending Unava ilable MALEMMA, AWA FLOWER Primary Care Unavailable AMY LARA Attending Unava ilable GRIS, AWA MUNDO Primary Care Unavailable Mj LOUIS, Dr. Friend Primary Care Provider Rush LOUIS, Dr. Ramsay Attending Provider Unavail uday Beverly MD, Dr. Ramsay Referring Provider Unavail uday Chang MD, Dr. Nicole Attending Provider Mj LOUIS, Dr. Friend Referring Provider Caitlyn LOUIS, Dr. Baltazar Attending Provider Mj LOUIS, Dr. Friend Primary Care Physician Dr. Devendra Beverly MD Attending Physician Marlene Chang MD, Dr. Nicole Attending Physician Caitlyn LOUIS, Dr. Baltazar Attending Physician [phone] Caitlyn LOUIS, Dr. Baltazar Referring Provider [phone] [facility] Attending Physic cathi Unavailable SULTANA GARCIA Referring Unavailable DEVENDRA BEVERLY Primary Care Unavailable SULTANA GARCIA Attending Unavailable JAJA CHANG Referring Unavailjohny e DEVENDRA BEVERLY Primary Care Unavailable Adams Nieto Attending Unavailable Hawa Butler Admitting Unavailable Phuc Barker Primary Care Unavailable Patrice Penny Consulting Unavailable Adeli, Amir Consulting Unavailable Hinduja, Kaylee Consulting Unavailable Claudio, Cynthia Consulting Unavailable Zha, Joana Consulting Unavailable Sebastian, Conor Consulting Unavailable Alfredito, Gabi Consulting Unavailable Bittar, Alex Consulting Unavailable Nathaniel Lua Consulting Unavailable Willis Huang Consulting Unavailable Scarlet Dudley Consulting Unavailable Tony Schaffer Consulting Unavailable Magui Dee Consulting Unavailable Kiana Goodwin Consulting Unavailable Sinai, Manueld Ronaldo Consulting UnavailDiego Fink Consulting Unavailable Wai Wheatley Consulting Unavailable Phan Alexander Consulting Unavailable Vernell Segovia Consulting Unavailable Rodolfo Chapman Consulting Unavailable Hawa Butler Consulting Unavailable Cha Peace Consulting Unavailable Doe Jeffery Consulting Unavailable Ryan Torrez Consulting Unavailable NEGRA DICKEY Consulting Unavailable Martin Rowan Consulting Unavailable Gogo Asif Consulting Unavailable Alejo Kunz Consulting Unavailable Tanphaichishaniqua, Natthavat Consulting Unavaila jamilah Nieto, Adams Consulting Unavailable Mj, Phuc Primary Care Unavailable Giovanny Brady Referring Unavailable Giovanny Brady Attending Unavailable Hawa Butler Attending Unavailable Barker, Phuc Primary Care Unavailable Carmen Cates Attending Unavailjohny e Barker, Phuc Primary Care Unavailable Armando Briones Attending Unavailjohny Hargrove, Awa Primary Care Unavailable Barker OLS, Phuc Attending Unavailable Barker, Phuc Primary Care Unavailable Devendra Fernández Attending Unavailable Gudla OLS, Johana Attending Unavailable Lucya KRYSTIN, Johana Referring Unavailable Barker, Phuc Primary Care Unavailable Barker, Phuc Primary Care Unavailable Giovanny Brady Attending Unavailable Barker, Phuc Referring Unavailable Alejo Kunz Attending Unavailable Lucya KRYSTIN, Johana Attending Unavailable Barker, Phuc Primary Care Unavailable Barker, Phuc Primary Care Unavailable Bonnie Chang Attending Unavailable Barker, Phuc Primary Care Unavailable Gudla OLS, Johana Attending Unavailable Gudla OLS, Johana Attending Unavailable Barker, Phuc Primary Care Unavailable Gerson, Adams Attending Unavailable Barker, Phuc Primary Care Unavailable Hawa Butler Admitting Unavailable Patrice Penny Consulting Unavailable AdeDylan roy Consulting Unavailable HindKaylee kulkarni Consulting Unavailable Cynthia Snyder Consulting Unavailable Jennie Joana Consulting Unavailable Conor Cortes Consulting Unavailable Gabi Glaser Consulting Unavailable Alex Talley Consulting Unavailable Nathaniel Lua Consulting Unavailable Willis Huang Consulting Unavailable Scarlet Dudley Consulting Unavailable Tony Schaffer Consulting Unavailable Magui Dee Consulting Unavailable Ridha, Mohamed Consulting Unavailable Sinai, Karma Higgins Consulting UnavailDiego Fink Consulting Unavailable Wai Wheatley Consulting Unavailable Phan Alexander Consulting Unavailable Vernell Segovia Consulting Unavailable Rodolfo Chapman Consulting Unavailable Hawa Butler Consulting Unavailable Cha Peace Consulting Unavailable Doe Jeffery Consulting Unavailable Ryan Torrez Consulting Unavailable NEGRA DICKEY Consulting Unavailable Martin Rowan Consulting Unavailable Gogo Asif Consulting Unavailable Alejo Kunz Consulting Unavailable Tanphaichishaniqua Nattoney Consulting UnavailPhuc Elias [facility] Unavailable Devendra Fernández Attending Unavailable Mj Phuc [facility] Unavailable Devendra Fernández Referring Unavailable Devendra Fernández Attending Unavailable Mj Phuc [facility] Unavailable [facility] Attending Unavailable Johana Mckinley Attending Unavailable Mj Phuc [facility] Attending Unavailable [facility] Un[facility] Allergies Allergy Classification Reported Allergen(s) Allergy Type Date of Onset Reaction(s) Facility (11 sources) amLODIPine; Translations: [AMLODIPINE] Drug Allergy 7 Other: See Comments [facility] (7 sources) Aspartame; Translations: [ASPARTAME] Drug Allergy 5 Other: See Comments [facility] Comment on above: feet & legs (1 source) Aspartame Drug Allergy 5 [facility] Repository Medications Current Medications Medication Drug Class(es) Dates Sig (Normalized) Sig (Original) acetaminophen 325 mg oral tablet (11 sources) Start: 07-22-2024 take 2 tablets by mouth every four hours as needed for pain take 650 mg rectal r oute every four hours as needed acetaminophen (TYLENOL) 650 mg supposito ry 650 mg by RECTAL route every 4 hours as needed for fever (specify temp.) or pain. Suspended atorvastatin 40 mg oral tablet (17 sources) HMG-CoA Reductase Inhibitor Start: 07-16-2024 take 1 tablet by mouth once daily Start: 07-27-2023 End: 12-01-2023 take 1 tablet [...] 0.2 mg by mouth every eight hours Start: 07-25-2023 take 0.3 mg by mouth [...] by mouth once daily. Active Cranberry Fruit (2 sources) Non-Standardized Food Allergenic Extract, Non-Standardized Plant Allergenic Extract Start: take 1 tablet by mouth once daily Start: 05-17-2025 take 1 tablet by lakia th once daily Cranberry Fruit 450 mg tablet Active 450 mg PO daily May 17, 2025 12:00am administer with a meal enteric contrast (will be provided with radiology test) (4 sources) Start: 02-19-[address] (will be provided with radiology test) For CT ABD/PEL W IVCON Routine order Administer, As Directed One Time Only, via Oral, Rectal, both Oral and Rectal, Enteric Tube, Stoma or Indwelling Catheter, Enteric Contrast as designated per enteric contrast guidelines 1 Each 0 02/19/2024 Active ergocalciferol 1.25 mg oral capsule (18 sources) Provitamin D2 Compound Start: 07-25-2023 famotidine 20 mg oral tablet (5 sources) Histamine-2 Receptor Antagonist Start: 05-17-2025 take 1 tablet by mouth at bedtime take 1 tablet by lakia th once daily at bedtime famotidine (PEPCID) 20 mg tablet Take 20 mg by mouth daily at bedtime. Active fenofibrate 67 mg oral capsule (20 sources) Peroxisome Proliferator Receptor alpha Agonist Start: 07-16-2024 take 1 capsule by mouth once daily Start: 07-25-2023 End: 07-16-2024 take 1 tablet [...] 02/19/2024 Active levETIRAcetam 250 mg oral tablet (9 sources) Start: 05-17-2025 take 1 tablet by mouth twice daily Start: 07-22-2024 End: 07-24-2024 take 1 tablet by mouth twice daily Levetiracetam 250 mg Tablet Discontinued 250 mg PO TWICE A DAY 0 0 July 22, 2024 1:00am July 24, 2024 7:14am Start: 06-24-2024 take 1 tablet by lakia th twice daily levETIRAcetam (KEPPRA) 500 mg tablet [...] hours as needed (GI distress). Suspended Magnesium (2 sources) Start: 05-17-2025 take 2 tablets by mouth once d aily Start: 05-17-2025 take 2 tablets by mo [facility] once daily Magnesium 200 mg tablet Active 400 mg PO daily May 17, 2025 12:00am magnesium hydroxide 80 mg/ml oral suspension (5 sources) take 30 mL by mouth once daily as needed for constipation magnesium hydroxide (MILK OF MAGNESIA) 400 mg/5 mL suspension Take 30 mL by mouth once daily as needed for constipation. Active melatonin 3 mg oral capsule (9 sources) Start: 07-16-2024 take 1 capsule by mouth at bedtime take 1 tablet by lakia once daily at bedtime melatonin 3 mg tablet Take 3 mg by mouth daily at bedtime. Active metoprolol tartrate 100 mg oral tablet (20 sources) beta-Adrenergic Shantel Start: 05-17-2025 take 1 tablet by mouth twice daily Start: 07-25-2023 End: 07-24-2024 take 1 tablet by mouth every twelve hours Metoprolol Tartrate 100 mg tablet Discontinued 100 mg PO Q12H July 25, 2023 1:00am July 24, 2024 7:13am BP take 1 tablet by lakia twice daily metoprolol tartrate, short acting, (LOPRESSOR) [...] NIFEdipine 90 mg extended release oral tablet (9 sources) Dihydropyridine Calcium Channel Shantel Start: 07-16-2024 take 1 tablet by mouth once daily take 1 tablet by lakia th once daily at bedtime NIFEdipine ER (PROCARDIA XL) 90 mg 24 hr tablet Take 90 mg by mouth daily at bedtime. Active nitroglycerin 0.4 mg sublingual tablet (9 sources) Nitrate Vasodilator Start: 07-16-2024 omeprazole 40 mg delayed release oral capsule (1 source) Proton Pump Inhibitor Start: 03-23-2024 End: 03-23-2025 take 1 capsule by mouth once daily omeprazole (PRILOSEC) 40 mg capsule Take 1 capsule by mouth once daily. 90 capsule 2 03/23/2024 03/23/2025 Active polyethylene glycol 3350 72925 mg powder for oral solution (5 sources) Osmotic Laxative polyethylene glycol 3350 (MIRALAX) 17 gram packet Take 17 g by mouth once daily as needed for constipation. Dissolve dose in 4 - 8 ounces of liquid and take as directed. Active sertraline 50 mg oral tablet (20 sources) Serotonin Reuptake Inhibitor Start: 05-17-2025 take 1 tablet by mouth once daily Start: 07-24-2024 End: 05-17-2025 Sertraline 100 mg [...] 22, 2024 2:09pm take 1 capsule by [facility] once daily at bedtime sertraline 150 mg capsule Take 150 mg by mouth daily at bedtime. Active sodium phosphate,mono-dibasi c (FLEET ENEMA VA) (3 sources) sodium phosphate ,mono-dibasic (FLEET ENEMA VA) 1 suppository by RECTAL route as needed. Active vit B comp no.8-oswtc-L-biot in (4 sources) Start: 07-16-2024 Start: 07-16-2024 vit B comp no. 7-pkcab-C-biotin Active 1 {tbl} PO DAILY July 16, 2024 1:00am Completed/Discontinued Medications Medication Drug Class(es) Dates Sig (Normalized) Sig (Original) amLODIPine 5 mg oral tablet (8 sources) Dihydropyridine Calcium Channel Shantel Start: 07-27-2023 [...] day. Suspended aspirin 81 mg oral tablet (8 sources) Platelet Aggregation Inhibitor, Nonsteroidal Anti-inflammatory Drug Start: 07-27-2023 End: 12-01-2023 take 1 capsule by mouth once daily Aspirin 81 mg capsule Discontinued 81 mg PO DAILY 60 0 July 27, 2023 1:00am December 01, 2023 2:17pm busPIRone hydrochloride 5 mg oral tablet (9 sources) Start: 07-16-2024 End: 05-17-2025 take 1 [...] / sennosides, alf 8.6 mg oral tablet (4 sources) Start: 07-22-2024 End: 07-24-2024 Sennosides-Docusate Sodium (Stimulant Laxative Plus) 8.6-50 mg Tablet Discontinued 2 {tbl} PO TWICE A DAY 0 0 July 22, 2024 1:00am July 24, 2024 7:13am hydroCHLOROthiazide 25 mg oral tablet (8 sources) Thiazide Diuretic Start: 07-27-2023 End: 12-01-2023 take 1 tablet by mouth at breakfast Hydrochlorothiazide 25 mg Tablet Discontinued 25 mg PO WITH BREAKFAST 60 0 July 27, 2023 1:00am December 01, 2023 2:18pm lisinopril 40 mg oral tablet (18 sources) Angiotensin Converting Enzyme Inhibitor Start: 07-25-2023 End: 07-16-2024 take 1 tablet by mouth twice daily Lisinopril 40 mg tablet Discontinued 40 mg PO TWICE A DAY July 25, 2023 1:00am July 16, 2024 4:20am BP magnesium oxide 200 mg oral tablet (13 sources) Start: 07-22-2024 End: 05-17-2025 take 1 [...] 22, 2024 2:14pm take 0.5 tablet by out twice daily magnesium oxide 400 mg magnesium tab Take 0.5 tablets by mouth two times a day. Active Multivitamin With Folic Acid (Tab-A-Marcella) 400 mcg tablet (9 sources) Start: 07-25-2023 End: 07-16-2024 Multivitamin With [...] pantoprazole 40 mg delayed release oral tablet (10 sources) Proton Pump Inhibitor Start: 12-03-2023 End: 07-22-2024 take 1 tablet by mouth once daily Pantoprazole (Protonix) 40 mg tablet,delayed release (DR/EC) Discontinued 40 mg PO DAILY 60 0 December 03, 2023 12:00am July 22, 2024 2:12pm sodium bicarbonate 650 mg oral tablet (11 sources) Start: 07-22-2024 End: 07-24-2024 take 1 tablet by mouth four times daily Sodium Bicarbonate 650 mg Tablet Discontinued 650 mg PO 4 TIMES DAILY 0 0 July 22, 2024 1:00am July 24, 2024 7:14am Start: 06-24-2024 take 1 tablet by mouth three t imes daily sodium phosphate, dibasic 59.3 mg/ml / sodium phosphate, monobasic 161 mg/ml enema (2 sources) sodium phosphate -sodium bisphosphate (FLEET ENEMA) enema 1 Enema by RECTAL route as needed for constipation. Suspended spironolactone 25 mg oral tablet (13 sources) Aldosterone Antagonist Start: 07-25-20 End: 07-22-20 take 1 tablet by mouth once daily Spironolactone 25 mg tablet Discontinued 25 mg PO DAILY July 25, 2023 1:00am July 22, 2024 2:09pm DIURESIS sucralfate 1000 mg oral tablet (9 sources) Aluminum Complex Start: 12-03-19 End: 07-22-20 take 1 tablet by mouth twice daily Sucralfate 1 gram tablet Discontinued 1 g PO TWICE A DAY December 17, 2023 2:26pm July 22, 2024 2:10pm Problems Active Problems Problem Classification Problem Date Documented Da te Episodic/Chronic Acute cerebrovascular disease (17 sources) Hematoma of subdural space of neuraxis; Translations: [SDH (subdural hematoma) (HCC)] Onset: 4 06-20-2024 Chronic Acute myocardial infarction (11 sources) Myocardial infarction; Translations: [Non-ST elevation (NSTEMI) myocardial infarction] Onset: 5 07-25-2023 Chronic Appendicitis and other appendiceal conditions (8 sources) Disorder of appendix; Translations: [Disease of appendix, unspecified] 12-01-2023 Episodic Cardiac dysrhythmias (6 sources) Paroxysmal atrial fibrillation; Translations: [Paroxysmal atrial fibrillation] Onset: 5 07-16-2024 Chronic Chronic kidney disease (20 sources) Chronic kidney disease; Translations: [Chronic kidney disease, unspecified] Onset: 4 Resolved: 4 07-25-2023 Chronic Coronary atherosclerosis and other heart disease (9 sources) Coronary arteriosclerosis; Translations: [Atherosclerotic heart disease of [place] coronary artery without angina pectoris] Onset: 4 03-23-2024 Chronic Coronary atherosclerosis and other heart disease (2 sources) Presence of coronary angioplasty implant and graft; Translations: [Presence of coronary angioplasty implant and graft] Onset: 5 Episodic Deficiency and other anemia (5 sources) Anemia; Translations: [Anemia, unspecified] 04-20-2025 Episodic Deficiency and other anemia (2 sources) Anemia, unspecified; Translations: [Anemia, unspecified type] Onset: 5 Episodic Delirium, dementia, and amnestic and other cognitive disorders (6 sources) Dementia; Translations: [Unspecified dementia without behavioral disturbance] Onset: 5 05-17-2025 Chronic Diseases of white blood cells (8 sources) Leukocytosis; Translations: [Elevated white blood cell count, unspecified] 12-01-2023 Chronic Disorders of lipid metabolism (16 sources) Mixed hyperlipidemia; Translations: [Mixed hyperlipidemia] Onset: 4 03-23-2024 Chronic Essential hypertension (20 sources) Hypertensive disorder; Translations: [Resistant hypertension] Onset: 4 07-25-2023 Chronic Gastroduodenal ulcer (except hemorrhage) (6 sources) Ulcer of duodenum; Translations: [Duodenal ulcer, unspecified as acute or chronic, without hemorrhage or perforation] 12-03-2023 Chronic Gastrointestinal hemorrhage (11 sources) Duodenal ulcer with hemorrhage; Translations: [Chronic or unspecified duodenal ulcer with hemorrhage] Onset: 4 02-19-2024 Chronic Gastrointestinal hemorrhage (8 sources) Upper gastrointestinal bleeding; Translations: [Gastrointestinal hemorrhage, unspecified] 12-01-2023 Episodic Genitourinary symptoms and ill-defined conditions (1 source) Unspecified abnormal findings in urine; Translations: [Unspecified abnormal findings in urine] Onset: 5 Episodic Hypertension with complications and secondary hypertension (10 sources) Hypertensive emergency; Translations: [Hypertensive emergency] 07-25-2023 Chronic Malaise and fatigue (3 sources) Asthenia; Translations: [Weakness] Onset: 5 05-17-2025 Episodic Nutritional deficiencies (1 source) Vitamin D deficiency, unspecified; Translations: [Vitamin D deficiency, unspecified] Onset: 5 Chronic Open wounds of head; neck; and trunk (4 sources) Complex laceration of forehead; Translations: [Laceration without foreign body of other part of head, initial encounter] 06-26-2024 Episodic Osteoporosis (5 sources) Senile osteoporosis; Translations: [Age-related osteoporosis without current pathological fracture] Onset: 4 06-19-2024 Chronic Other aftercare (4 sources) Drug therapy finding; Translations: [nursing home (current) use of anticoagulants] 06-26-2024 Episodic Other aftercare (2 sources) Other intermediate accountant (current) drug therapy; Translations: [Other intermediate accountant (current) drug therapy] Onset: 5 Episodic Other disorders of stomach and duodenum (6 sources) Mass of duodenum; Translations: [Other diseases of stomach and duodenum] 12-01-2023 Episodic Other disorders of stomach and duodenum (2 sources) Other diseases of stomach and duodenum; Translations: [Other specified disorders of stomach and duodenum] 12-01-2023 Episodic Other endocrine disorders (11 sources) Adrenal mass; Translations: [Other specified disorders of adrenal gland] Onset: 4 02-19-2024 Chronic Other hematologic conditions (1 source) Personal history of diseases of the blood and blood-forming organs and certain disorders involving the immune mechanism; Translations: [Personal history of diseases of the blood and blood-forming organs and certain disorders involving the immune mechanism] Onset: 5 Episodic Other infections; including parasitic (8 sources) Disorder due to infection; Translations: [Unspecified infectious disease] 07-25-2023 Episodic Other infections; including parasitic (2 sources) Unspecified infectious disease; Translations: [Unspecified infectious and parasitic diseases] 07-27-2023 Episodic Other nervous system disorders (4 sources) Aphasia; Translations: [Aphasia] 07-30-2024 Chronic Other nervous system disorders (2 sources) Aphasia; Translations: [Aphasia] Onset: 4 Chronic Other nervous system disorders (2 sources) Abnormal gait; Translations: [Unspecified abnormalities of gait and mobility] 05-18-2025 Episodic Paralysis (1 source) Cerebral palsy, unspecified; Translations: [Cerebral palsy, unspecified] Onset: 5 Chronic Peripheral and visceral atherosclerosis (2 sources) Unspecified atherosclerosis; Translations: [Unspecified atherosclerosis] Onset: 5 Chronic Residual codes; unclassified (8 sources) Altered mental status; Translations: [Altered mental status, unspecified] 07-30-2024 Episodic Residual codes; unclassified (2 sources) Altered mental status, unspecified; Translations: [Altered mental status, unspecified] Onset: 5 Episodic Spondylosis; intervertebral disc disorders; other back problems (10 sources) Backache; Translations: [Dorsalgia, unspecified] 12-01-2023 Episodic Thyroid disorders (1 source) Hypothyroidism, unspecified; Translations: [Hypothyroidism, unspecified] Onset: 5 Chronic Unclassified (2 sources) 6 month f/u Onset: 5 Urinary tract infections (2 sources) Urinary tract infection, site not specified; Translations: [Urinary tract infection, site not specified] Onset: 5 Episodic Past or Other Problems Problem Classification Problem Date Documented Da te Episodic/Chronic Acute and unspecified renal failure (6 sources) Acute renal failure syndrome; Translations: [Acute kidney failure, unspecified] Onset: 07-22-2024 07-30-2024 Episodic Deficiency and other anemia (5 sources) Chronic anemia; Translations: [Anemia, unspecified] Onset: 06-19-2024 06-19-2024 Episodic E Codes: Fall (5 sources) Fall; Translations: [Unspecified fall, initial encounter] Onset: 06-19-2024 06-19-2024 Episodic Fluid and electrolyte disorders (5 sources) Hyponatremia; Translations: [Hypo-osmolality and hyponatremia] Onset: 06-19-2024 Resolved: 06-24-2024 06-19-2024 Episodic Nonspecific chest pain (5 sources) Chest pain; Translations: [Chest pain, unspecified] Onset: 01-07-2025 08-01-2024 Episodic Other connective tissue disease (1 source) Muscle weakness (generalized); Translations: [Muscle weakness (generalized)] Onset: 03-08-2025 Episodic Other non-traumatic joint disorders (9 sources) Pain in left knee; Translations: [Pain in joint, lower leg] Onset: 09-13-2016 02-19-2024 Episodic Results Test Name Value Interpretation Reference Range Facility Basic Metabolic Profile (BMP )on 06-03-2025 BUN/CRE 13.4 RATIO Normal 06-21 [facility] Comment on above: Order Comment: 516.1 Performed By: #### L 500.2500 ####[facility] [id number] [place], [address] Calcium [Mass/Vol] 9.6 mg/dL Normal 7.6-11.0 [facility] Comment on above: Order Comment: 516.1 Performed By: #### L 500.2500 ####[facility] [id number] [place], [address] Chloride [Moles/Vol] 104 mmol/L Normal 98-108 [facility] Comment on above: Order Comment: 516.1 Performed By: #### L 500.2500 ####[facility] [id number] [place], [address] CO2 [Moles/Vol] 21.4 mmol/L Normal 21.0-32.0 [facility] Comment on above: Order Comment: 516.1 Performed By: #### L 500.2500 ####[facility] [id number] [place], [address] Creatinine [Mass/Vol] 4.31 mg/dL High 0.70-1.20 [facility] Comment on above: Order Comment: 516.1 Performed By: #### L 500.2500 ####[facility] [id number] [place], [address] GAP 17 High 5-15 [facility] Comment on above: Order Comment: 516.1 Performed By: #### L 500.2500 ####[facility] [id number] [place], [address] GFR/1.73 sq M.predicted among non-blacks MDRD (S/P/Bld) [Vol rate/Area] 10 mL/min/{1.73_m2} Low >60 [facility] Comment on above: Order Comment: 516.1 Result Comment: mL/m in/1.73m2 CKD-EPI Creatinine Equation (2020) Performed By: #### L 500.2500 ####[facility] [address] [place], [address] Glucose [Mass/Vol] 136 mg/dL High 70-99 [facility] Comment on above: Order Comment: 516.1 Performed By: #### L 500.2500 ####[facility] [address] [place], [place], [id number] Potassium [Moles/Vol] 3.8 mmol/L Normal 3.3-5.1 [facility] Comment on above: Order Comment: 516.1 Performed By: #### L 500.2500 ####[facility] [address] [place], [place], [address] Sodium [Moles/Vol] 143 mmol/L Normal 133-145 [facility] Comment on above: Order Comment: 516.1 Performed By: #### L 500.2500 ####[facility] [address] [place], [place], [id number] Urea nitrogen [Mass/Vol] 58 mg/dL High 4-19 [facility] Comment on above: Order Comment: 516.1 Performed By: #### L 500.2500 ####[facility] [address] [place], [address] CNPCatarina 06-03-2025 MARY Telephone (ALICE) ZAHIDA BELTRE ([id number]) 1955 F Date Time Provider Department 06/03/25 FELECIA SCHWARZ During your visit today, we recorded the following information about you: Radha Nichols LPN 06/03/2025 11:14 AM Signed Received results C[facility]CBC [facility] @ results, informed she did not order the testing , but pt. Has worsening kidney function and needs to see Zipper Trimmer. Spoke with Nursing on [facility] she informed that Dr. Chang ordered the testing, and they needed to be sure he received the results. Voiced understanding and will fax results to systems coordinator. Radha Nichols LPN Allergies As of Date: 06/03/2025 Noted Allergy Reaction AMLODIPINE 09/13/2016 14 - Other: See Comments ASPARTAME 04/20/2025 14 - Other: See Comments Comments: Extremely thirsty Date Reviewed: 04/20/2025 Reviewed by: Sultana Garcia - Fully Assessed Reason for Visit: Results, Lab [1201] Prescriptions as of 06/03/2025 - cloNIDine HCl (CATAPRES) 0.3 mg tablet Take 0.3 mg by mouth three times a day. - cranberry fruit (CRANBERRY) 450 mg tab Take 450 mg by mouth once daily. - famotidine (PEPCID) 20 mg tablet Take 20 mg by mouth daily at bedtime. - sodium phosphate,mono-dibasic (FLEET ENEMA VA) 1 suppository by RECTAL route as needed. [...] once daily. Problem List As Of Date 06/03/2025 Noted Resolved Left knee pain [M25.562] 09/13/2016 Adrenal nodule (HCC) [E27.9] 02/19/2024 Duodenal ulcer with hemorrhage [K26.4] 02/19/2024 Pre-op examination [Z01.818] 03/23/2024 Coronary artery disease involving [place] enrique*03/23/2024 HTN (hypertension) [I10] 03/23/2024 Mixed hyperlipidemia [E78.2] 03/23/2024 Subdural hemorrhage (HCC) [I62.00] 06/18/2024 SDH (subdural hematoma) (HCC) [S06.5XAA] 06/18/2024 Fall [W19.XXXA] 06/19/2024 Age-related osteoporosis without current pathol*04/13/2024 Dependence on renal dialysis (HCC) [Z99.2] 04/07/2024 06/24/2024 Chronic anemia [D64.9] 06/19/2024 Hyponatremia [E87.1] 06/19/2024 06/24/2024 Encounter Status:Closed by RADHA NICHOLS on 06/03/25 Normal [facility] Protein+Creatinine Ratio,Uri neon 06-03-2025 PROT:CRE RATIO 2055 mg/g CRE High 0-200 [facility] Comment on above: Performed By: #### L 400.0001, L501.0900 ####[facility] [address] [place], [address] Protein (U) [Mass/Vol] 126.0 mg/dL High 0.0-12.0 [facility] Comment on above: Performed By: #### L 400.0001, L501.0900 ####[facility] [address] [place], [address] UR CREAT 61.30 mg/dL Normal 28.00-217.0 0 [facility] Comment on above: Performed By: #### L 400.0001, L501.0900 ####[facility] [address] [place], [address] Urinalysis, Completeon 06-03 BACTERIA RARE Normal None Seen [facility] Comment on above: Order Comment: Urine , Random Performed By: #### L 400.0001, L501.0900 ####[facility] [address] [place], [address] EPI,SQUAMOUS 5-10 SEEN Normal 5-10 [facility] Comment on above: Order Comment: Urine , Random Performed By: #### L 400.0001, L501.0900 ####[facility] [address] [place], [address] RBC 5-10 SEEN Normal 0-5 [facility] Comment on above: Order Comment: Urine , Random Performed By: #### L 400.0001, L501.0900 ####[facility] [address] [place], [address] WBC 50-100 SEEN Normal 0-5 [facility] Comment on above: Order Comment: Urine , Random Performed By: #### L 400.0001, L501.0900 ####[facility] [address] [place], [address] Mucus Ql (Urine sed) 0 SEEN Normal [facility] Comment on above: Order Comment: Urine , Random Performed By: #### L 400.0001, L501.0900 ####[facility] [address] [place], [address] Anion gap in Serum or Plasma Ordered By: [facility] on 06-01-2025 Anion gap [Moles/Vol] 16 mmol/L High 5-15 [facility] BUN/creatinine ratioOrdered By: [facility] on 06-01-2025 Urea nitrogen/Creatinine [Mass ratio] 13.8 mg/mg 10-20 [facility] Bilirubin, totalOrdered By: [facility] on 06-01-2025 Bilirubin [Mass/Vol] 0.24 mg/dL 0.00-1.30 [facility] CBC-Complete Blood Cnt No Di ffon 06-01-2025 Erythrocyte distribution width (RBC) [Ratio] 13.2 % Normal 11.6-14.6 [facility] Comment on above: Order Comment: 516.1 Performed By: #### L 100.0500, L500.4050, L501.2300 ####[facility] [address] [place], [address] Hematocrit (Bld) [Volume fraction] 26.0 % Low 37-47 [facility] Comment on above: Order Comment: 516.1 Performed By: #### L 100.0500, L500.4050, L501.2300 ####[facility] [address] [place], [address] Hemoglobin (Bld) [Mass/Vol] 8.4 g/dL Low 12.0-15.0 [facility] Comment on above: Order Comment: 516.1 Performed By: #### L 100.0500, L500.4050, L501.2300 ####[facility] [address] [place], [address] MCH (RBC) [Entitic mass] 31.7 pg Normal 27.0-32.0 [facility] Comment on above: Order Comment: 516.1 Performed By: #### L 100.0500, L500.4050, L501.2300 ####[facility] [address] [place], [address] MCHC (RBC) [Mass/Vol] 32.3 g/dL Normal 32-36 [facility] Comment on above: Order Comment: 516.1 Performed By: #### L 100.0500, L500.4050, L501.2300 ####[facility] [address] [place], [address] MCV (RBC) [Entitic vol] 98.1 fL Normal 81-99 [facility] Comment on above: Order Comment: 516.1 Performed By: #### L 100.0500, L500.4050, L501.2300 ####[facility] [address] [place], [address] Platelet mean volume (Bld) [Entitic vol] 10.9 fL Normal 6.2-12.0 [facility] Comment on above: Order Comment: 516.1 Performed By: #### L 100.0500, L500.4050, L501.2300 ####[facility] [address] [place], [address] Platelets (Bld) [#/Vol] 308 10*3/uL Normal 150-450 [facility] Comment on above: Order Comment: 516.1 Performed By: #### L 100.0500, L500.4050, L501.2300 ####[facility] [address] [place], [address] RBC (Bld) [#/Vol] 2.65 10*6/uL Low 4.2-5.4 [facility] Comment on above: Order Comment: 516.1 Performed By: #### L 100.0500, L500.4050, L501.2300 ####[facility] [address] [place], [address] RDW SD 46.5 fl High 35.1-43.9 [facility] Comment on above: Order Comment: 516.1 Performed By: #### L 100.0500, L500.4050, L501.2300 ####[facility] [address] [place], [address] WBC (Bld) [#/Vol] 10.1 10*3/uL Normal 4.4-11.0 [facility] Comment on above: Order Comment: 516.1 Performed By: #### L 100.0500, L500.4050, L501.2300 ####[facility] [address] [place], [address] Carbon dioxide, total [Moles /volume] in Central venous bloodOrdered By: [facility] on 06-01-2025 CO2 [Moles/Vol] 19.1 mmol/L Low 21.0-32.0 [facility] Chloride assayOrdered By: [facility] on 06-01-2025 Chloride [Moles/Vol] 105 mmol/L 98-108 [facility] Comprehensive Metabolic Prof ilon 06-01-2025 Albumin [Mass/Vol] 4.2 g/dL Normal 3.4-4.8 [facility] Comment on above: Order Comment: 516.1 Performed By: #### L 100.0500, L500.4050, L501.2300 ####[facility] [address] [place], [address] Albumin/Globulin [Mass ratio] 1.8 {ratio} Normal 0.9-2.4 [facility] Comment on above: Order Comment: 516.1 Performed By: #### L 100.0500, L500.4050, L501.2300 ####[facility] [address] [place], [address] ALK PHOS 82 U/L Normal 35-104 [facility] Comment on above: Order Comment: 516.1 Performed By: #### L 100.0500, L500.4050, L501.2300 ####[facility] [address] [place], [address] ALT [Catalytic activity/Vol] 15 U/L Normal <=34 [facility] Comment on above: Order Comment: 516.1 Performed By: #### L 100.0500, L500.4050, L501.2300 ####[facility] [address] [place], [address] AST [Catalytic activity/Vol] 15 U/L Normal <=31 [facility] Comment on above: Order Comment: 516.1 Performed By: #### L 100.0500, L500.4050, L501.2300 ####[facility] [address] [place], [address] Bilirubin [Mass/Vol] 0.24 mg/dL Normal 0.00-1.30 [facility] Comment on above: Order Comment: 516.1 Performed By: #### L 100.0500, L500.4050, L501.2300 ####[facility] [address] [place], [address] BUN/CRE 13.8 RATIO Normal 10-20 [facility] Comment on above: Order Comment: 516.1 Performed By: #### L 100.0500, L500.4050, L501.2300 ####[facility] [address] [place], [address] Calcium [Mass/Vol] 9.3 mg/dL Normal 7.6-11.0 [facility] Comment on above: Order Comment: 516.1 Performed By: #### L 100.0500, L500.4050, L501.2300 ####[facility] [address] [place], [address] Chloride [Moles/Vol] 105 mmol/L Normal 98-108 [facility] Comment on above: Order Comment: 516.1 Performed By: #### L 100.0500, L500.4050, L501.2300 ####[facility] [address] [place], [address] CO2 [Moles/Vol] 19.1 mmol/L Low 21.0-32.0 [facility] Comment on above: Order Comment: 516.1 Performed By: #### L 100.0500, L500.4050, L501.2300 ####[facility] [address] [place], [address] Creatinine [Mass/Vol] 4.42 mg/dL High 0.70-1.20 [facility] Comment on above: Order Comment: 516.1 Performed By: #### L 100.0500, L500.4050, L501.2300 ####[facility] [address] [place], [address] GAP 16 High 5-15 [facility] Comment on above: Order Comment: 516.1 Performed By: #### L 100.0500, L500.4050, L501.2300 ####[facility] [address] [place], [address] GFR/1.73 sq M.predicted among non-blacks MDRD (S/P/Bld) [Vol rate/Area] 10 mL/min/{1.73_m2} Low >60 [facility] Comment on above: Order Comment: 516.1 Result Comment: mL/m in/1.73m2 CKD-EPI Creatinine Equation (2020) Performed By: #### L 100.0500, L500.4050, L501.2300 ####[facility] [address] [place], [address] Globulin (S) [Mass/Vol] 2.3 g/dL Normal 2.2-4.2 [facility] Comment on above: Order Comment: 516.1 Performed By: #### L 100.0500, L500.4050, L501.2300 ####[facility] [address] [place], [address] Glucose [Mass/Vol] 132 mg/dL High 70-99 [facility] Comment on above: Order Comment: 516.1 Performed By: #### L 100.0500, L500.4050, L501.2300 ####[facility] [address] [place], [address] Potassium [Moles/Vol] 3.9 mmol/L Normal 3.3-5.1 [facility] Comment on above: Order Comment: 516.1 Performed By: #### L 100.0500, L500.4050, L501.2300 ####[facility] [address] [place], [address] Sodium [Moles/Vol] 141 mmol/L Normal 133-145 [facility] Comment on above: Order Comment: 516.1 Performed By: #### L 100.0500, L500.4050, L501.2300 ####[facility] [address] [place], [address] T PROT 6.5 g/dL Normal 5.9-8.4 [facility] Comment on above: Order Comment: 516.1 Performed By: #### L 100.0500, L500.4050, L501.2300 ####[facility] [address] [place], [address] Urea nitrogen [Mass/Vol] 61 mg/dL High 4-19 [facility] Comment on above: Order Comment: 516.1 Performed By: #### L 100.0500, L500.4050, L501.2300 ####[facility] [address] [place], [address] Erythrocyte distribution wid th ratioOrdered By: [facility] on 06-01-2025 Erythrocyte distribution width (RBC) [Ratio] 13.2 % 11.6-14.6 [facility] Erythrocyte distribution wid th standard deviationOrdered By: [facility] on 06-01-2025 Erythrocyte distribution width (RBC) [Ratio] 46.5 fl High 35.1-43.9 [facility] Glomerular filtration rate ( GFR) estimation/1.73 sq m using serum, plasma, or whole bOrdered By: [facility] on 06-01-2025 GFR/1.73 sq M.predicted among non-blacks MDRD (S/P/Bld) [Vol rate/Area] 10 mL/min/{1.73_m2} Low >60 [facility] Comment on above: mL/min/1.73m2 CKD-EP I Creatinine Equation (2020) Hematocrit Auto (Bld) [Volum e fraction]Ordered By: [facility] on 06-01-2025 Hematocrit (Bld) [Volume fraction] 26.0 % Low 37-47 [facility] Hemoglobin measurementOrdere d By: [facility] on 06-01-2025 Hemoglobin (Bld) [Mass/Vol] 8.4 g/dL Low 12.0-15.0 [facility] Laboratory - Chemistry and C hemistry - challengeOrdered By: [facility] on 06-01-2025 AST [Catalytic activity/Vol] 15 U/L <32 [facility] MCV (mean corpuscular volume ) determinationOrdered By: [facility] on 06-01-2025 MCV (RBC) [Entitic vol] 98.1 fL 81-99 [facility] Mean corpuscular hemoglobin (MCH) determinationOrdered By: [facility] on 06-01-2025 MCH (RBC) [Entitic mass] 31.7 pg 27.0-32.0 [facility] Mean corpuscular hemoglobin concentration (MCHC) determinationOrdered By: [facility] on 06-01-2025 MCHC (RBC) [Mass/Vol] 32.3 g/dL 32-36 [facility] Mean platelet volume determi nationOrdered By: [facility] on 06-01-2025 Platelet mean volume (Bld) [Entitic vol] 10.9 fL 6.2-12.0 [facility] Phosphoruson 06-01-2025 Phosphate [Mass/Vol] 5.2 mg/dL High 2.7-4.5 [facility] Comment on above: Order Comment: 516.1 Performed By: #### L 100.0500, L500.4050, L501.2300 ####[facility] [address] [place], [address] Platelet countOrdered By: [facility] on 06-01-2025 Platelets (Bld) [#/Vol] 308 10*3/uL 150-450 [facility] Potassium measurement (mass/ volume)Ordered By: [facility] on 06-01-2025 Potassium (Unsp spec) [Mass/Vol] 3.9 mmol/L 3.3-5.1 [facility] RBC Auto (Bld) [#/Vol]Ordere d By: [facility] on 06-01-2025 RBC (Bld) [#/Vol] 2.65 10*6/uL Low 4.2-5.4 [facility] Serum creatinine measurement (mass/volume)Ordered By: [facility] on 06-01-2025 Creatinine [Mass/Vol] 4.42 mg/dL High 0.70-1.20 [facility] Serum globulin measurementOr dered By: [facility] on 06-01-2025 Globulin (S) [Mass/Vol] 2.3 g/dL 2.2-4.2 [facility] Serum glucose measurement (m ass/volume)Ordered By: [facility] on 06-01-2025 Glucose [Mass/Vol] 132 mg/dL High 70-99 [facility] Serum or plasma alanine mckeon otransferase (ALT) measurementOrdered By: [facility] on 06-01-2025 ALT [Catalytic activity/Vol] 15 U/L <35 [facility] Serum or plasma albumin yamil urement (mass/volume)Ordered By: [facility] on 06-01-2025 Albumin [Mass/Vol] 4.2 g/dL 3.4-4.8 [facility] Serum or plasma albumin/glob ulin mass ratioOrdered By: [facility] on 06-01-2025 Albumin/Globulin [Mass ratio] 1.8 {ratio} 0.9-2.4 [facility] Serum or plasma alkaline anthony sphatase measurementOrdered By: [facility] on 06-01-2025 ALP [Catalytic activity/Vol] 82 U/L 35-104 [facility] Serum or plasma calcium yamil urement (mass/volume)Ordered By: [facility] on 06-01-2025 Calcium [Mass/Vol] 9.3 mg/dL 7.6-11.0 [facility] Serum or plasma urea nitroge n measurement (mass/volume)Ordered By: [facility] on 06-01-2025 Urea nitrogen [Mass/Vol] 61 mg/dL High 4-19 [facility] Sodium levelOrdered By: [facility] on 06-01-2025 Sodium [Moles/Vol] 141 mmol/L 133-145 [facility] Total proteinOrdered By: [facility] [place] on 06-01-2025 Protein [Mass/Vol] 6.5 g/dL 5.9-8.4 [facility] White blood cell (WBC) count Ordered By: [facility] on 06-01-2025 WBC (Bld) [#/Vol] 10.1 10*3/uL 4.4-11.0 [facility] Folates, RBCon 05-25-2025 Fol.,Hemolysate > 620.0 Normal Not Estab. [facility] Comment on above: Order Comment: Test( s) 906672-Fonjgxz B6was developed and its performance characteristicsdetermined by [employer]. It has not been cleared or approvedby the Food and Drug Administration. Performed By: #### L 3100.1725, L501.9520, L503.6150, L503.0106, L503.5510, L101.9900, L3300.0960, L3100.5450, L3300.8200, L3300.8000, L3130.0010, L503.6550, L501.5200 ####[facility] [address] [place], [place], [address] Folate, RBC > 2385 Normal >498 [facility] Comment on above: Order Comment: Test( s) 457220-Sssowkm B6was developed and its performance characteristicsdetermined by [employer]. It has not been cleared or approvedby the Food and Drug Administration. Performed By: #### L 3100.1725, L501.9520, L503.6150, L503.0106, L503.5510, L101.9900, L3300.0960, L3100.5450, L3300.8200, L3300.8000, L3130.0010, L503.6550, L501.5200 ####[facility] [address] [place], [place], [address] Hematocrit (Bld) [Volume fraction] 26.0 % Low 34.0-46.6 [facility] Comment on above: Order Comment: Test( s) 068275-Xjwolvd B6was developed and its performance characteristicsdetermined by [employer]. It has not been cleared or approvedby the Food and Drug Administration. Performed By: #### L 3100.1725, L501.9520, L503.6150, L503.0106, L503.5510, L101.9900, L3300.0960, L3100.5450, L3300.8200, L3300.8000, L3130.0010, L503.6550, L501.5200 ####[facility] [address] [place], [place], [address] [place] Lambda Light Chainson 05-25-2025 FR KAPPA LT CHN 41.4 mg/L Abnormal 3.3-19.4 [facility] Comment on above: Order Comment: Test( s) 671544-Qvnammj B6was developed and its performance characteristicsdetermined by [employer]. It has not been cleared or approvedby the Food and Drug Administration. Performed By: #### L 3100.1725, L501.9520, L503.6150, L503.0106, L503.5510, L101.9900, L3300.0960, L3100.5450, L3300.8200, L3300.8000, L3130.0010, L503.6550, L501.5200 ####[facility] [address] [place], [address] FR LAMBDA LT CH 34.3 mg/L Abnormal 5.7-26.3 [facility] Comment on above: Order Comment: Test( s) 472635-Taaukpv B6was developed and its performance characteristicsdetermined by [employer]. It has not been cleared or approvedby the Food and Drug Administration. Performed By: #### L 3100.1725, L501.9520, L503.6150, L503.0106, L503.5510, L101.9900, L3300.0960, L3100.5450, L3300.8200, L3300.8000, L3130.0010, L503.6550, L501.5200 ####[facility] [address] [place], [address] KAPPA/LAMBDA % 1.21 Normal 0.26-1.65 [facility] Comment on above: Order Comment: Test( s) 779081-Qxrwqkq B6was developed and its performance characteristicsdetermined by [employer]. It has not been cleared or approvedby the Food and Drug Administration. Performed By: #### L 3100.1725, L501.9520, L503.6150, L503.0106, L503.5510, L101.9900, L3300.0960, L3100.5450, L3300.8200, L3300.8000, L3130.0010, L503.6550, L501.5200 ####[facility] [address] [place], [place], [address] L3300.8200on 05-25-2025 VITAMIN B6 41.6 ug/L Normal 3.4-65.2 [facility] Comment on above: Order Comment: Test( s) 374387-Oufwanp B6was developed and its performance characteristicsdetermined by [facility]. It has not been cleared or approvedby the Food and Drug Administration. Result Comment: Ve rified by repeat analysis Deficiency: <3.4 Marginal: 3.4 - 5.1 Adequate: >5.1 Performed By: #### L 3100.1725, L501.9520, L503.6150, L503.0106, L503.5510, L101.9900, L3300.0960, L3100.5450, L3300.8200, L3300.8000, L3130.0010, L503.6550, L501.5200 ####[facility] [address] [place], [address] Vitamin B1, Thiamineon 05-25 VIT B1 THIAMINE 164.7 nmol/L Normal 66.5-200.0 [facility] Comment on above: Order Comment: Test( s) 815523-Iuassdw B6was developed and its performance characteristicsdetermined by [facility]. It has not been cleared or approvedby the Food and Drug Administration. Result Comment: Perf ormed at: [address] [id number] Director: Hussein Aguilar PhD, Phone: [phone] at: [address] [id number] Director: Rk Petty MD, Phone: [phone] Performed By: #### L 3100.1725, L501.9520, L503.6150, L503.0106, L503.5510, L101.9900, L3300.0960, L3100.5450, L3300.8200, L3300.8000, L3130.0010, L503.6550, L501.5200 ####[facility] [address] [place], [place], [address] VINI w/ Reflex Mult Confirmon 05-21-2025 ANTI-DNA (DS)AB TNP Normal [facility] Comment on above: Performed By: #### L 3100.1725, L501.9520, L503.6150, L503.0106, L503.5510, L101.9900, L3300.0960, L3100.5450, L3300.8200, L3300.8000, L3130.0010, L503.6550, L501.5200 ####[facility] [address] [place], [place], [address] ANTI-SS-A TNP Normal [facility] Comment on above: Performed By: #### L 3100.1725, L501.9520, L503.6150, L503.0106, L503.5510, L101.9900, L3300.0960, L3100.5450, L3300.8200, L3300.8000, L3130.0010, L503.6550, L501.5200 ####[facility] [address] [place], [place], [id number] ANTI-SS-B TNP Normal [facility] Comment on above: Performed By: #### L 3100.1725, L501.9520, L503.6150, L503.0106, L503.5510, L101.9900, L3300.0960, L3100.5450, L3300.8200, L3300.8000, L3130.0010, L503.6550, L501.5200 ####[facility] [address] [place], [place], [id number] Vitamin D 1,25-Dihydroxyon 0 05-21-2025 VIT D 1,25 DIHY 20.8 pg/mL Abnormal 24.8-81.5 [facility] Comment on above: Performed By: #### L 3100.1725, L501.9520, L503.6150, L503.0106, L503.5510, L101.9900, L3300.0960, L3100.5450, L3300.8200, L3300.8000, L3130.0010, L503.6550, L501.5200 ####[facility] [address] [place], [place], [address] Ammoniaon 05-17-2025 Ammonia (P) [Moles/Vol] 16.9 umol/L Normal 11-51 [facility] Comment on above: Performed By: #### L 3100.1725, L501.9520, L503.6150, L503.0106, L503.5510, L101.9900, L3300.0960, L3100.5450, L3300.8200, L3300.8000, L3130.0010, L503.6550, L501.5200 ####[facility] [address] [place], [place], [address] Erythrocyte Sed Rateon 05-17 SED RATE 6 mm/hr Normal 0-30 [facility] Comment on above: Performed By: #### L 3100.1725, L501.9520, L503.6150, L503.0106, L503.5510, L101.9900, L3300.0960, L3100.5450, L3300.8200, L3300.8000, L3130.0010, L503.6550, L501.5200 ####[facility] [address] [place], [place], [address] Erythrocyte folate measureme nt with hematocritOrdered By: Giovanny Brady on 05-17-2025 Hematocrit (Bld) [Volume fraction] 26.0 % Low 34.0-46.6 [facility] Erythrocyte sedimentation ra teOrdered By: Giovanny Brady on 05-17-2025 ESR (Bld) [Velocity] 6 mm/h 0-30 [facility] Ferritinon 05-17-2025 Ferritin [Mass/Vol] 936 ng/mL High 22-378 [facility] Comment on above: Performed By: #### L 3100.1725, L501.9520, L503.6150, L503.0106, L503.5510, L101.9900, L3300.0960, L3100.5450, L3300.8200, L3300.8000, L3130.0010, L503.6550, L501.5200 ####[facility] [address] [place], [place], [phone] Ironon 05-17-2025 Iron [Mass/Vol] 106 ug/dL Normal 50-170 [facility] Comment on above: Performed By: #### L 3100.1725, L501.9520, L503.6150, L503.0106, L503.5510, L101.9900, L3300.0960, L3100.5450, L3300.8200, L3300.8000, L3130.0010, L503.6550, L501.5200 ####[facility] [address] [place], [place], [address] Iron measurement (mass/mass) Ordered By: Giovanny Brady on 05-17-2025 Iron (Unsp spec) [Mass/Mass] 106 ug/dL 50-170 [facility] Magnesiumon 05-17-2025 Magnesium [Mass/Vol] 2.2 mg/dL Normal 1.5-2.2 [facility] Comment on above: Performed By: #### L 3100.1725, L501.9520, L503.6150, L503.0106, L503.5510, L101.9900, L3300.0960, L3100.5450, L3300.8200, L3300.8000, L3130.0010, L503.6550, L501.5200 ####[facility] [address] [place], [place], [address] Magnesium measurement (mass/ volume)Ordered By: Giovanny Brady on 05-17-2025 Magnesium (Unsp spec) [Mass/Vol] 2.2 mg/dL 1.5-2.2 [facility] Neurology Visit Reporton Neurology Visit Report Normal [facility] Serum DNA double strand anti body assay (units/volume)Ordered By: Giovanny Brady on 05-17-2025 DNA double strand Ab Qn (S) [facility] Comment on above: Test not performed Serum Scl-70 antibody assay (units/volume)Ordered By: Giovanny Brady on 05-17-2025 SCL-70 extractable nuclear Ab Qn (S) [facility] Comment on above: Test not performed Serum immunoglobulin kappa l ight chains/immunoglobulin lambda light chains mass ratioOrdered By: Giovanny Brady on 05-17-2025 Immunoglobulin light chains.kappa/Immunoglo bulin light chains.lambda (S) [Mass ratio] 1.21 0.26-1.65 [facility] Serum or plasma calcitriol m easurement (mass/volume)Ordered By: Giovanny Brady on 05-17-2025 1,25-dihydroxyvitamin D3 [Mass/Vol] 20.8 pg/mL Low 24.8-81.5 [facility] Serum or plasma ferritin maris surement (mass/volume)Ordered By: Giovanny Brady on 05-17-2025 Ferritin [Mass/Vol] 936 ng/mL High 22-378 [facility] Serum or plasma immunoglobul in kappa light chains measurement (mass/volume)Ordered By: Giovanny Brady on 05-17-2025 Immunoglobulin light chains.kappa [Mass/Vol] 41.4 mg/L High 3.3-19.4 [facility] Serum or plasma thiamine maris surement (mass/volume)Ordered By: Giovanny Brady on 05-17-2025 Thiamine [Mass/Vol] 164.7 nmol/L 66.5-200.0 [facility] Comment on above: Performed at: [facility] Prasanna brower [address] [id number] Director: Hussein Aguilar PhD, Phone: [phone] at: - [facility] [id number] Director: Rk Petty MD, Phone: [phone] TSH DL <= 0.005 mIU/L QnOrde red By: Giovanny Brady on 05-17-2025 TSH Qn 2.250 uIU/mL 0.300-4.200 [facility] Thyroid Stim Hormone (TSH)on 05-17-2025 TSH 2.250 uIU/mL Normal 0.300-4.200 [facility] Comment on above: Performed By: #### L 3100.1725, L501.9520, L503.6150, L503.0106, L503.5510, L101.9900, L3300.0960, L3100.5450, L3300.8200, L3300.8000, L3130.0010, L503.6550, L501.5200 ####[facility] [address] [place], [place], [phone] Venous blood ammonia measure mentOrdered By: Giovanny Brady on 05-17-2025 Ammonia (P) [Moles/Vol] 16.9 umol/L 11-51 [facility] Vitamin B12on 05-17-2025 Cobalamin (Vitamin B12) [Mass/Vol] 676 pg/mL Normal 180-914 [facility] Comment on above: Performed By: #### L 3100.1725, L501.9520, L503.6150, L503.0106, L503.5510, L101.9900, L3300.0960, L3100.5450, L3300.8200, L3300.8000, L3130.0010, L503.6550, L501.5200 ####[facility] [address] [place], [place], [phone] Vitamin B12 ser/plasOrdered By: Giovanny Brady on 05-17-2025 Cobalamin (Vitamin B12) [Mass/Vol] 676 pg/mL 180-4 [facility] Anion gap in Serum or Plasma Ordered By: Bonnie Chang on 05-04-2025 Anion gap [Moles/Vol] 15 mmol/L -15 [facility] BUN/creatinine ratioOrdered By: Bonnie Chang on 05-04-2025 Urea nitrogen/Creatinine [Mass ratio] 11.7 mg/mg 10-20 [facility] Bilirubin, totalOrdered By: Bonnie Chang on 05-04-2025 Bilirubin [Mass/Vol] 0.27 mg/dL 0.00-1.30 [facility] CBC-Complete Blood Cnt No Di ffon 05-04-2025 Erythrocyte distribution width (RBC) [Ratio] 12.6 % Normal 11.6-14.6 [facility] Comment on above: Order Comment: 516-1 Performed By: #### L 501.2300, L500.4050, L100.0500 ####[facility] [address] [place], [address] Hematocrit (Bld) [Volume fraction] 25.9 % Low 37-47 [facility] Comment on above: Order Comment: 516-1 Performed By: #### L 501.2300, L500.4050, L100.0500 ####[facility] [address] [place], [address] Hemoglobin (Bld) [Mass/Vol] 8.5 g/dL Low 12.0-15.0 [facility] Comment on above: Order Comment: 516-1 Performed By: #### L 501.2300, L500.4050, L100.0500 ####[facility] [address] [place], [address] MCH (RBC) [Entitic mass] 31.5 pg Normal 27.0-32.0 [facility] Comment on above: Order Comment: 516-1 Performed By: #### L 501.2300, L500.4050, L100.0500 ####[facility] [address] [place], [address] MCHC (RBC) [Mass/Vol] 32.8 g/dL Normal 32-36 [facility] Comment on above: Order Comment: 516-1 Performed By: #### L 501.2300, L500.4050, L100.0500 ####[facility] [address] [place], [address] MCV (RBC) [Entitic vol] 95.9 fL Normal 81-99 [facility] Comment on above: Order Comment: 516-1 Performed By: #### L 501.2300, L500.4050, L100.0500 ####[facility] [address] [place], [address] Platelet mean volume (Bld) [Entitic vol] 10.8 fL Normal 6.2-12.0 [facility] Comment on above: Order Comment: 516-1 Performed By: #### L 501.2300, L500.4050, L100.0500 ####[facility] [address] [place], [address] Platelets (Bld) [#/Vol] 301 10*3/uL Normal 150-450 [facility] Comment on above: Order Comment: 516-1 Performed By: #### L 501.2300, L500.4050, L100.0500 ####[facility] [address] [place], [address] RBC (Bld) [#/Vol] 2.70 10*6/uL Low 4.2-5.4 [facility] Comment on above: Order Comment: 516-1 Performed By: #### L 501.2300, L500.4050, L100.0500 ####[facility] [address] [place], [address] RDW SD 43.2 fl Normal 35.1-43.9 [facility] Comment on above: Order Comment: 516-1 Performed By: #### L 501.2300, L500.4050, L100.0500 ####[facility] [address] [place], [address] WBC (Bld) [#/Vol] 8.4 10*3/uL Normal 4.4-11.0 [facility] Comment on above: Order Comment: 516-1 Performed By: #### L 501.2300, L500.4050, L100.0500 ####[facility] [address] [place], [address] Carbon dioxide, total [Moles /volume] in Central venous bloodOrdered By: Bonnie Chang on 05-04-2025 CO2 [Moles/Vol] 21.5 mmol/L 21.0-32.0 [facility] Chloride assayOrdered By: Nick Chang on 05-04-2025 Chloride [Moles/Vol] 103 mmol/L 98-108 [facility] Comprehensive Metabolic Prof ilon 05-04-2025 Albumin [Mass/Vol] 4.2 g/dL Normal 3.4-4.8 [facility] Comment on above: Order Comment: 516-1 Performed By: #### L 501.2300, L500.4050, L100.0500 ####[facility] [address] [place], [address] Albumin/Globulin [Mass ratio] 1.9 {ratio} Normal 0.9-2.4 [facility] Comment on above: Order Comment: 516-1 Performed By: #### L 501.2300, L500.4050, L100.0500 ####[facility] [address] [place], [address] ALK PHOS 78 U/L Normal 35-104 [facility] Comment on above: Order Comment: 516-1 Performed By: #### L 501.2300, L500.4050, L100.0500 ####[facility] [address] [place], [address] ALT [Catalytic activity/Vol] 14 U/L Normal <=34 [facility] Comment on above: Order Comment: 516-1 Performed By: #### L 501.2300, L500.4050, L100.0500 ####[facility] [address] [place], [address] AST [Catalytic activity/Vol] 16 U/L Normal <=31 [facility] Comment on above: Order Comment: 516-1 Performed By: #### L 501.2300, L500.4050, L100.0500 ####[facility] [address] [place], [address] Bilirubin [Mass/Vol] 0.27 mg/dL Normal 0.00-1.30 [facility] Comment on above: Order Comment: 516-1 Performed By: #### L 501.2300, L500.4050, L100.0500 ####[facility] [address] [place], [address] BUN/CRE 11.7 RATIO Normal 10-20 [facility] Comment on above: Order Comment: 516-1 Performed By: #### L 501.2300, L500.4050, L100.0500 ####[facility] [address] [place], [address] Calcium [Mass/Vol] 9.1 mg/dL Normal 7.6-11.0 [facility] Comment on above: Order Comment: 516-1 Performed By: #### L 501.2300, L500.4050, L100.0500 ####[facility] [address] [place], [address] Chloride [Moles/Vol] 103 mmol/L Normal 98-108 [facility] Comment on above: Order Comment: 516-1 Performed By: #### L 501.2300, L500.4050, L100.0500 ####[facility] [address] [place], [address] CO2 [Moles/Vol] 21.5 mmol/L Normal 21.0-32.0 [facility] Comment on above: Order Comment: 516-1 Performed By: #### L 501.2300, L500.4050, L100.0500 ####[facility] [address] [place], [address] Creatinine [Mass/Vol] 4.78 mg/dL High 0.70-1.20 [facility] Comment on above: Order Comment: 516-1 Performed By: #### L 501.2300, L500.4050, L100.0500 ####[facility] [address] [place], [address] GAP 15 Normal 5-15 [facility] Comment on above: Order Comment: 516-1 Performed By: #### L 501.2300, L500.4050, L100.0500 ####[facility] [address] [place], [address] GFR/1.73 sq M.predicted among non-blacks MDRD (S/P/Bld) [Vol rate/Area] 9 mL/min/{1.73_m2} Low >60 [facility] Comment on above: Order Comment: 516-1 Result Comment: mL/m in/1.73m2 CKD-EPI Creatinine Equation (2020) Performed By: #### L 501.2300, L500.4050, L100.0500 ####[facility] [address] [place], [address] Globulin (S) [Mass/Vol] 2.3 g/dL Normal 2.2-4.2 [facility] Comment on above: Order Comment: 516-1 Performed By: #### L 501.2300, L500.4050, L100.0500 ####[facility] [address] [place], [address] Glucose [Mass/Vol] 131 mg/dL High 70-99 [facility] Comment on above: Order Comment: 516-1 Performed By: #### L 501.2300, L500.4050, L100.0500 ####[facility] [address] [place], [address] Potassium [Moles/Vol] 3.6 mmol/L Normal 3.3-5.1 [facility] Comment on above: Order Comment: 516-1 Performed By: #### L 501.2300, L500.4050, L100.0500 ####[facility] [address] [place], [address] Sodium [Moles/Vol] 140 mmol/L Normal 133-145 [facility] Comment on above: Order Comment: 516-1 Performed By: #### L 501.2300, L500.4050, L100.0500 ####[facility] [address] [place], [address] T PROT 6.5 g/dL Normal 5.9-8.4 [facility] Comment on above: Order Comment: 516-1 Performed By: #### L 501.2300, L500.4050, L100.0500 ####[facility] [address] [place], [address] Urea nitrogen [Mass/Vol] 56 mg/dL High 4-19 [facility] Comment on above: Order Comment: 516-1 Performed By: #### L 501.2300, L500.4050, L100.0500 ####[facility] [address] [place], [address] Erythrocyte distribution wid th ratioOrdered By: Bonnie Chang on 05-04-2025 Erythrocyte distribution width (RBC) [Ratio] 12.6 % 11.6-14.6 [facility] Erythrocyte distribution wid th standard deviationOrdered By: Bonnie Chang on 05-04-2025 Erythrocyte distribution width (RBC) [Ratio] 43.2 fl 35.1-43.9 [facility] Glomerular filtration rate ( GFR) estimation/1.73 sq m using serum, plasma, or whole bOrdered By: Bonnie Chang on 05-04-2025 GFR/1.73 sq M.predicted among non-blacks MDRD (S/P/Bld) [Vol rate/Area] 9 mL/min/{1.73_m2} Low >60 [facility] Comment on above: mL/min/1.73m2 CKD-EP I Creatinine Equation (2020) Hematocrit Auto (Bld) [Volum e fraction]Ordered By: Bonnie Chang on 05-04-2025 Hematocrit (Bld) [Volume fraction] 25.9 % Low 37-47 [facility] Hemoglobin measurementOrdere d By: Bonnie Chang on 05-04-2025 Hemoglobin (Bld) [Mass/Vol] 8.5 g/dL Low 12.0-15.0 [facility] Laboratory - Chemistry and C hemistry - challengeOrdered By: Bonnie Chang on 05-04-2025 AST [Catalytic activity/Vol] 16 U/L <32 [facility] MCV (mean corpuscular volume ) determinationOrdered By: Bonnie Chang on 05-04-2025 MCV (RBC) [Entitic vol] 95.9 fL 81-99 [facility] Mean corpuscular hemoglobin (MCH) determinationOrdered By: Bonnie Chang on 05-04-2025 MCH (RBC) [Entitic mass] 31.5 pg 27.0-32.0 [facility] Mean corpuscular hemoglobin concentration (MCHC) determinationOrdered By: Bonnie Chang on 05-04-2025 MCHC (RBC) [Mass/Vol] 32.8 g/dL 32-36 [facility] Mean platelet volume determi nationOrdered By: Bonnie Chang on 05-04-2025 Platelet mean volume (Bld) [Entitic vol] 10.8 fL 6.2-12.0 [facility] Phosphoruson 05-04-2025 Phosphate [Mass/Vol] 4.8 mg/dL High 2.7-4.5 [facility] Comment on above: Order Comment: 516-1 Performed By: #### L 501.2300, L500.4050, L100.0500 ####[facility] [address] [place], [address] Platelet countOrdered By: Nick Chang on 05-04-2025 Platelets (Bld) [#/Vol] 301 10*3/uL 150-450 [facility] Potassium measurement (mass/ volume)Ordered By: Bonnie Chang on 05-04-2025 Potassium (Unsp spec) [Mass/Vol] 3.6 mmol/L 3.3-5.1 [facility] RBC Auto (Bld) [#/Vol]Ordere d By: Bonnie Chang on 05-04-2025 RBC (Bld) [#/Vol] 2.70 10*6/uL Low 4.2-5.4 [facility] Serum creatinine measurement (mass/volume)Ordered By: Bonnie Chang on 05-04-2025 Creatinine [Mass/Vol] 4.78 mg/dL High 0.70-1.20 [facility] Serum globulin measurementOr dered By: Bonnie Chang on 05-04-2025 Globulin (S) [Mass/Vol] 2.3 g/dL 2.2-4.2 [facility] Serum glucose measurement (m ass/volume)Ordered By: Bonnie Chang on 05-04-2025 Glucose [Mass/Vol] 131 mg/dL High 70-99 [facility] Serum or plasma alanine mckeon otransferase (ALT) measurementOrdered By: Bonnie Chang on 05-04-2025 ALT [Catalytic activity/Vol] 14 U/L <35 [facility] Serum or plasma albumin yamil urement (mass/volume)Ordered By: Bonnie Chang on 05-04-2025 Albumin [Mass/Vol] 4.2 g/dL 3.4-4.8 [facility] Serum or plasma albumin/glob ulin mass ratioOrdered By: Bonnie Chang on 05-04-2025 Albumin/Globulin [Mass ratio] 1.9 {ratio} 0.9-2.4 [facility] Serum or plasma alkaline anthony sphatase measurementOrdered By: Bonnie Chang on 05-04-2025 ALP [Catalytic activity/Vol] 78 U/L 35-104 [facility] Serum or plasma calcium yamil urement (mass/volume)Ordered By: Bonnie Chang on 05-04-2025 Calcium [Mass/Vol] 9.1 mg/dL 7.6-11.0 [facility] Serum or plasma urea nitroge n measurement (mass/volume)Ordered By: Bonnie Chang on 05-04-2025 Urea nitrogen [Mass/Vol] 56 mg/dL High 4-19 [facility] Sodium levelOrdered By: Gray Chang on 05-04-2025 Sodium [Moles/Vol] 140 mmol/L 133-145 [facility] Total proteinOrdered By: Aman Chang on 05-04-2025 Protein [Mass/Vol] 6.5 g/dL 5.9-8.4 [facility] White blood cell (WBC) count Ordered By: Bonnie Chang on 05-04-2025 WBC (Bld) [#/Vol] 8.4 10*3/uL 4.4-11.0 [facility] CNPNon 04-29-2025 MARY Telephone (ALICE) ZAHIDA BELTRE ([id number]) 1955 F Date Time Provider Department 04/29/25 [...] stability. (Orders entered) Pt currently resides in [facility]. I attempted to reach spouse number ivanna busfrancis. No answer on daughter Jeanette's phone (she was present for appt) Case and labs reviewed with Dr Vivas. Sultnaa Garcia APRN.Jazzy Munguia LPN 04/29/2025 2:52 PM Addendum I called and spoke to Hope, patient's nurse at [facility]. Patient is scheduled to see nephrology in [...] [N18.5, D63.1] Order(s):COMPLETE BLOOD COUNT AND DIFFERENTIAL [SQCBCDIF] Order #: [id number] FUTURE Prescriptions as of 04/29/2025 - cloNIDine HCl (CATAPRES) 0.3 mg tablet Take 0.3 mg by mouth three times a day. - cranberry fruit (CRANBERRY) 450 mg tab Take 450 mg by mouth once daily. - famotidine (PEPCID) 20 mg tablet Take 20 mg by mouth daily at bedtime. - sodium phosphate,mono-dibasic (FLEET ENEMA VA) 1 suppository by RECTAL route as needed. [...] examination [Z01.818] 03/23/2024 Coronary artery disease involving [place] enrique*03/23/2024 HTN (hypertension) [I10] 03/23/2024 Mixed hyperlipidemia [E78.2] 03/23/2024 Subdural hemorrhage (HCC) [I62.00] 06/18/2024 SDH (subdural hematoma) (HCC) [S06.5XAA] 06/18/2024 Fall [W19.XXXA] 06/19/2024 Age-related osteoporosis without current pathol*04/13/2024 Dependence on renal dialysis (HCC) [Z99.2] 04/07/2024 (more content not included)... Normal [facility] CNPNon 04-22-2025 CNPN Telephone (ALICE) ZAHIDA BELTRE ([id number]) 1955 F Date Time Provider Department 04/22/25 SULTANA GARCIA During your visit today, we recorded the following information about you: Yazmin Medel 04/22/2025 10:25 AM Signed Please fax 04/20 lab results to [facility] at [phone] Radha Nichols LPN 04/22/2025 11:06 AM Signed Labs faxed as directed. Radha Nichols LPN Allergies As of Date: 04/22/2025 Noted Allergy Reaction AMLODIPINE 09/13/2016 14 - Other: See Comments ASPARTAME 04/20/2025 14 - Other: See Comments Comments: Extremely thirsty Date Reviewed: 04/20/2025 Reviewed by: Sultana Garcia - Fully Assessed Reason for Visit: Electronic Communication [890] Prescriptions as of 04/22/2025 - cloNIDine HCl (CATAPRES) 0.3 mg tablet Take 0.3 mg by mouth three times a day. - cranberry fruit (CRANBERRY) 450 mg tab Take 450 mg by mouth once daily. - famotidine (PEPCID) 20 mg tablet Take 20 mg by mouth daily at bedtime. - sodium phosphate,mono-dibasic (FLEET ENEMA VA) 1 suppository by RECTAL route as needed. [...] examination [Z01.818] 03/23/2024 Coronary artery disease involving [place] enrique*03/23/2024 HTN (hypertension) [I10] 03/23/2024 Mixed hyperlipidemia [E78.2] 03/23/2024 Subdural hemorrhage (HCC) [I62.00] 06/18/2024 SDH (subdural hematoma) (HCC) [S06.5XAA] 06/18/2024 Fall [W19.XXXA] 06/19/2024 Age-related osteoporosis without current pathol*04/13/2024 Dependence on renal dialysis (HCC) [Z99.2] 04/07/2024 06/24/2024 Chronic anemia [D64.9] 06/19/2024 Hyponatremia [E87.1] 06/19/2024 06/24/2024 Encounter Status:Closed by RADHA NICHOLS on 04/22/25 Normal [facility] COPPER BLOODOrdered By: Giovanni Hanson on 04-21-2025 Copper [Mass/Vol] 107 ug/dL 80 - 155 ug/dL [facility] Comment on above: This test was hu pozo, and its performance characteristics determined by the [facility] Department of Pathology and Laboratory Medicine. It has not been cleared or approved by the FDA. The [facility] Department of Pathology and Laboratory Medicine is regulated under CLIA as qualified to perform high-complexity testing. This test is used for clinical purposes. It should not be regarded as investigational or for research. ERYTHROPOIETIN/EPOon 025 Erythropoietin (EPO) Qn 13.2 [IU]/L [facility] Erythropoietin (EPO) Qnon Interpretation and review of laboratory results Normal [facility] Test analyzed by the ThoundsI method. [facility] FERRITINon 04-21-2025 Ferritin [Mass/Vol] 987.0 ng/mL High 14.7 - 205.1 ng/mL [facility] FOLATE, SERUMon 04-21-2025 Folate [Mass/Vol] ng/mL 4.7 - PINF ng/mL [facility] Comment on above: A result of > 20 ng/ mL is not necessarily indicative of a pathologic or treatable condition: it reflects a limitation of the test methodology. Assay reference range: 4.8 to 24.2 ng/mL. Suitable for detection of folate deficiency. Reference: Folate III (Folate III) [package insert V 1.0 [place]]. [facility], [place], [place]: July 2015. Ferritin [Mass/Vol]on 2024 Interpretation and review of laboratory results Abnormal [facility] Iron and Iron binding capaci ty panelon 04-21-2025 Interpretation and review of laboratory results Normal [facility] Iron [Mass/Vol] 104 ug/dL 41 - 186 ug/dL [facility] Iron binding capacity [Mass/Vol] 342 ug/dL 232 - 386 ug/dL [facility] Iron/TIBC [Molar ratio] 30.4 % 15.0 - 57.0 % [facility] No Panel InformationOrdered By: Paris Hanson on 04-21-2025 Interpretation and review of laboratory results Normal [facility] No Panel Informationon 04-21 Interpretation and review of laboratory results Normal [facility] VITAMIN B12on 04-21-2025 Cobalamin (Vitamin B12) [Mass/Vol] 840 pg/mL 232 - 1245 pg/mL [facility] ZINC BLDon 04-21-2025 Zinc [Mass/Vol] 84 ug/dL 60 - 120 ug/dL [facility] Comment on above: This test was develo ped, and its performance characteristics determined by the [facility] Department of Pathology and Laboratory Medicine. It has not been cleared or approved by the FDA. The [facility] Department of Pathology and Laboratory Medicine is regulated under CLIA as qualified to perform high-complexity testing. This test is used for clinical purposes. It should not be regarded as investigational or for research. CBC panel Auto (Bld)on 04-20 Erythrocyte distribution width (RBC) [Ratio] 12.6 % 11.5 - 15.0 % [facility] Hematocrit (Bld) [Volume fraction] 31.1 % Low 36.0 - 46.0 % [facility] Hemoglobin (Bld) [Mass/Vol] 10.3 g/dL Low 11.5 - 15.5 g/dL [facility] Interpretation and review of laboratory results Abnormal [facility] MCH (RBC) [Entitic mass] 31.7 pg 26.0 - 34.0 pg [facility] MCHC (RBC) [Mass/Vol] 33.1 g/dL 30.5 - 36.0 g/dL [facility] MCV (RBC) [Entitic vol] 95.7 fL 80.0 - 100.0 fL [facility] Nucleated RBC (Bld) [#/Vol] NINF [facility] Platelet mean volume (Bld) [Entitic vol] 9.9 fL 9.0 - 12.7 fL [facility] Platelets (Bld) [#/Vol] 368 10*3/uL [facility] RBC (Bld) [#/Vol] 3.25 10*6/uL Low 3.90 - 5.2 0 m/uL [facility] WBC (Bld) [#/Vol] 12.16 10*3/uL High [facility] Erythrocyte distribution width (RBC) [Ratio] 12.6 % Normal 11.5-15.0 [facility] Comment on above: Order Comment: Speci men Type: BLOOD SPECIMEN Ordering Facility: [facility] Address: [address] [place] [address] Performed By: #### 5 8410-2 #### [facility] CLIA [id number] [address] [place] [address] [place] Hematocrit (Bld) [Volume fraction] 31.1 % Low 36.0-46.0 [facility] Comment on above: Order Comment: Speci men Type: BLOOD SPECIMEN Ordering Facility: [facility] Address: [address] [place] [address] Performed By: #### 5 8410-2 #### [facility] CLIA [id number] [address] [place] [address] [place] Hemoglobin (Bld) [Mass/Vol] 10.3 g/dL Low 11.5-15.5 [facility] Comment on above: Order Comment: Speci men Type: BLOOD SPECIMEN Ordering Facility: [facility] Address: [address] [place] [address] Performed By: #### 5 8410-2 #### [facility] [id number] [address] [place] [address] [place] MCH (RBC) [Entitic mass] 31.7 pg Normal 26.0-34.0 [facility] Comment on above: Order Comment: Speci men Type: BLOOD SPECIMEN Ordering Facility: [facility] Address: [address] [place] [address] Performed By: #### 5 8410-2 #### [facility] CLIA [id number] [address] [place] [address] [place] MCHC (RBC) [Mass/Vol] 33.1 g/dL Normal 30.5-36.0 [facility] Comment on above: Order Comment: Speci men Type: BLOOD SPECIMEN Ordering Facility: [facility] Address: [address] [place] [address] Performed By: #### 5 8410-2 #### [facility] CLIA [id number] [address] [place] [address] [place] MCV (RBC) [Entitic vol] 95.7 fL Normal 80.0-100.0 [facility] Comment on above: Order Comment: Speci men Type: BLOOD SPECIMEN Ordering Facility: [facility] Address: [address] [place] [address] Performed By: #### 5 8410-2 #### [facility] CLIA [id number] [address] [place] [address] [place] Nucleated RBC (Bld) [#/Vol] 10*3/uL Normal <0.01 [facility] Comment on above: Order Comment: Speci men Type: BLOOD SPECIMEN Ordering Facility: [facility] Address: [address] [place] [address] Performed By: #### 5 8410-2 #### [facility] [id number] [address] [place] [address] [place] Platelet mean volume (Bld) [Entitic vol] 9.9 fL Normal 9.0-12.7 [facility] Comment on above: Order Comment: Speci men Type: BLOOD SPECIMEN Ordering Facility: [facility] Address: [address] [place] [address] Performed By: #### 5 8410-2 #### [facility] [id number] [address] [place] [address] [place] Platelets (Bld) [#/Vol] 368 10*3/uL Normal 150-400 [facility] Comment on above: Order Comment: Speci men Type: BLOOD SPECIMEN Ordering Facility: [facility] Address: [address] [place] [address] Performed By: #### 5 8410-2 #### [facility] CLIA [id number] [address] [place] [address] [place] RBC (Bld) [#/Vol] 3.25 10*6/uL Low 3.90-5.20 [facility] Comment on above: Order Comment: Speci men Type: BLOOD SPECIMEN Ordering Facility: [facility] Address: [address] [place] [address] Performed By: #### 5 8410-2 #### [facility] CLIA [id number] [address] [place] [address] [place] WBC (Bld) [#/Vol] 12.16 10*3/uL High 3.70-11.00 [facility] Comment on above: Order Comment: Speci men Type: BLOOD SPECIMEN Ordering Facility: [facility] Address: [address] [place] [address] Performed By: #### 5 8410-2 #### [facility] CLIA [id number] [address] [place] [address] [place] CNOVSPon 04-20-2025 CNOVSP Visit (SP) Office (H EMAWS) ZAHIDA EBLTRE ([id number]) 1955 F Date Time Provider Department 04/20/25 [...] daughter Jeanette as a referral from her systems coordinator for management of anemia. She is a poor historian, rather tangential. Currently resides in a care home facility since last year. Per chart [...] daily at bedtime. sodium phosphate,mono-dibasic (FLEET ENEMA VA) 1 suppository by RECTAL route as needed. [...] Take 40 (more content not included)... Normal [facility] COPPER BLOODon 04-20-2025 Copper [Mass/Vol] 107 ug/dL Normal 80-155 [facility] Comment on above: Order Comment: Dee Dee godfrey Type: BLOOD SPECIMEN Ordering Facility: [facility] Address: [address] [place] [address] Result Comment: This test was developed, and its performance characteristics determined by the [facility] Department of Pathology and Laboratory Medicine. It has not been cleared or approved by the FDA. The [facility] Department of Pathology and Laboratory Medicine is regulated under CLIA as qualified to perform high-complexity testing. This test is used for clinical purposes. It should not be regarded as investigational or for research. Performed By: #### 5 763-8, COPPER #### [facility] CLIA [id number] [address] [place], [place] [address] [place] [address] [place] Comprehensive metabolic 2000 panelOrdered By: Farnaz Mata on 04-20-2025 Albumin [Mass/Vol] 4.8 g/dL 3.9 - 4.9 g/dL [facility] ALP [Catalytic activity/Vol] 95 U/L 34 - 123 U/L [facility] ALT [Catalytic activity/Vol] 12 U/L 7 - 38 U/L [facility] Anion gap [Moles/Vol] 17 mmol/L High 8 - 15 mmol/L [facility] AST [Catalytic activity/Vol] 13 U/L 13 - 35 U/L [facility] Bilirubin [Mass/Vol] 0.2 mg/dL 0.2 - 1 .3 mg/dL [facility] Calcium [Mass/Vol] 9.9 mg/dL 8.5 - 10. 2 mg/dL [facility] Chloride [Moles/Vol] 100 mmol/L 98 - 10 7 mmol/L [facility] CO2 [Moles/Vol] 21 mmol/L Low 22 - 30 mmol/L [facility] Creatinine [Mass/Vol] 4.68 mg/dL High 0.58 - 0.96 mg/dL [facility] GFR/1.73 sq M.predicted among non-blacks MDRD (S/P/Bld) [Vol rate/Area] 9 mL/min/{1.73_m2} Low - PINF [facility] Comment on above: Estimated Glomerular Filtration [...] 125 mg/dL High 74 - 99 mg/dL [facility] Comment on above: The [place] Diabete s Association (ADA) provides guidance for [...] Standards of Medical Care in Diabetes 2016, [place] Diabetes Association. Diabetes Care. 2016.39(Suppl 1). Interpretation and review of laboratory results Abnormal [facility] Potassium [Moles/Vol] 4.0 mmol/L 3.7 - 5.1 mmol/L [facility] Protein [Mass/Vol] 7.5 g/dL 6.3 - 8.0 g/dL [facility] Sodium [Moles/Vol] 138 mmol/L 136 - 144 mmol/L [facility] Urea nitrogen [Mass/Vol] 58 mg/dL High 7 - 21 mg/dL [facility] Comprehensive metabolic 2000 panelon 04-20-2025 Albumin [Mass/Vol] 4.8 g/dL Normal 3.9-4.9 [facility] Comment on above: Order Comment: Dee Dee godfrey Type: BLOOD SPECIMEN Ordering Facility: [facility] Address: [address] [place] [address] Performed By: #### 2 4323-8 #### [facility] [id number] [address] [place] [address] [place] ALP [Catalytic activity/Vol] 95 U/L Normal 34-123 [facility] Comment on above: Order Comment: Dee Dee godfrey Type: BLOOD SPECIMEN Ordering Facility: [facility] Address: [address] [place], [place] [address] Performed By: #### 2 4323-8 #### [facility] [place] CLIA [id number] [address] [place] [address] [place] ALT [Catalytic activity/Vol] 12 U/L Normal 7-38 [facility] Comment on above: Order Comment: Speci men Type: BLOOD SPECIMEN Ordering Facility: [facility] Address: [facility] [place] [address] Performed By: #### 2 4323-8 #### [facility] CLIA [id number] [address] [place] [address] [place] Anion gap [Moles/Vol] 17 mmol/L High 8-15 [facility] Comment on above: Order Comment: Speci men Type: BLOOD SPECIMEN Ordering Facility: [facility] Address: [address] [place] [address] Performed By: #### 2 4323-8 #### [facility] CLIA [id number] [address] [place] [address] [place] AST [Catalytic activity/Vol] 13 U/L Normal 13-35 [facility] Comment on above: Order Comment: Speci men Type: BLOOD SPECIMEN Ordering Facility: [facility] Address: [facility] [place] [address] Performed By: #### 2 4323-8 #### [facility] CLIA [id number] [address] [place] [address] [place] Bilirubin [Mass/Vol] 0.2 mg/dL Normal 0.2-1.3 [facility] Comment on above: Order Comment: Speci men Type: BLOOD SPECIMEN Ordering Facility: [facility] Address: [address] [place] [address] Performed By: #### 2 4323-8 #### [facility] CLIA [id number] [address] [place] [address] [place] Calcium [Mass/Vol] 9.9 mg/dL Normal 8.5-10.2 [facility] Comment on above: Order Comment: Speci men Type: BLOOD SPECIMEN Ordering Facility: [facility] Address: [address] [place] [address] Performed By: #### 2 4323-8 #### [facility] CLIA [id number] [address] [place] [address] [place] Chloride [Moles/Vol] 100 mmol/L Normal 98-107 [facility] Comment on above: Order Comment: Speci men Type: BLOOD SPECIMEN Ordering Facility: [facility] Address: [address] [place] [address] Performed By: #### 2 4323-8 #### [facility] CLIA [id number] [address] [place] [address] [place] CO2 [Moles/Vol] 21 mmol/L Low 22-30 [facility] Comment on above: Order Comment: Speci men Type: BLOOD SPECIMEN Ordering Facility: [facility] Address: [address] [place] [address] Performed By: #### 2 4323-8 #### [facility] CLIA [id number] [address] [place] [address] [place] Creatinine [Mass/Vol] 4.68 mg/dL High 0.58-0.96 [facility] Comment on above: Order Comment: Speci men Type: BLOOD SPECIMEN Ordering Facility: [facility] Address: [address] [place] [address] Performed By: #### 2 4323-8 #### [facility] [id number] [address] [place] [address] [place] eGFRcr SerPlBld CKD-EPI 2020 9 mL/min/1.73m??? Low >=60 [facility] Comment on above: Order Comment: Speci men Type: BLOOD SPECIMEN Ordering Facility: [facility] Address: [address] [place], [place] [address] Result Comment: Saige mated Glomerular Filtration Rate [...] GFR. Performed By: #### 2 4323-8 #### [facility] CLIA [id number] [address] [place] [address] [place] Glucose [Mass/Vol] 125 mg/dL High 74-99 [facility] Comment on above: Order Comment: Dee Dee godfrey Type: BLOOD SPECIMEN Ordering Facility: [facility] Address: [address] [place] [address] Result Comment: The [place] Diabetes Association (ADA) provides guidance for cutoff [...] Standards of Medical Care in Diabetes 2016, [place] Diabetes Association. Diabetes Care. 2016.39(Suppl 1). Performed By: #### 2 4323-8 #### [facility] CLIA [id number] [address] [place] [address] [place] Potassium [Moles/Vol] 4.0 mmol/L Normal 3.7-5.1 [facility] Comment on above: Order Comment: Dee Dee godfrey Type: BLOOD SPECIMEN Ordering Facility: [facility] Address: [address] [place] [address] Performed By: #### 2 4323-8 #### [facility] CLIA [id number] [address] [place] [address] [place] Protein [Mass/Vol] 7.5 g/dL Normal 6.3-8.0 [facility] Comment on above: Order Comment: Speci men Type: BLOOD SPECIMEN Ordering Facility: [facility] Address: [address] [place] [address] Performed By: #### 2 4323-8 #### [facility] CLIA [id number] [address] [place] [address] [place] Sodium [Moles/Vol] 138 mmol/L Normal 136-144 [facility] Comment on above: Order Comment: Speci men Type: BLOOD SPECIMEN Ordering Facility: [facility] Address: [address] [place] [address] Performed By: #### 2 4323-8 #### [facility] [id number] [address] [place] [address] [place] Urea nitrogen [Mass/Vol] 58 mg/dL High 7-21 [facility] Comment on above: Order Comment: Speci men Type: BLOOD SPECIMEN Ordering Facility: [facility] Address: [address] [place] [address] Performed By: #### 2 4323-8 #### [facility] CLIA [id number] [address] [place] [address] [place] EPO SerPl-aCncon 04-20-2025 Erythropoietin (EPO) Qn 13.2 mIU/mL Normal 2.6-18.5 [facility] Comment on above: Order Comment: Speci men Type: BLOOD SPECIMENOrdering Facility: [facility] Address: [address] [place] [address] Performed By: #### 1 5061-5 ####[facility] [id number] [place] [address] [place] Ferritin SerPl-mCncon 2024 Ferritin [Mass/Vol] 987.0 ng/mL High 14.7-205.1 [facility] Comment on above: Order Comment: Speci men Type: BLOOD SPECIMEN Ordering Facility: [facility] Address: [address] [place] [address] Performed By: #### 5 0190-8, 4, 2132-05, 2284-04 #### [facility] CLIA [id number] [address] [place] [address] [place] Folate [facility] 04-20-20 25 Folate [Mass/Vol] ng/mL Normal >4.7 [facility] Comment on above: Order Comment: Dee Dee godfrey Type: BLOOD SPECIMEN Ordering Facility: [facility] Address: [address] [place] [address] Result Comment: A re sult of > 20 ng/mL is not necessarily indicative of a pathologic or treatable condition: it reflects a limitation of the test methodology. Assay reference range: 4.8 to 24.2 ng/mL. Suitable for detection of folate deficiency. Reference: Folate III (Folate III) [package insert V 1.0 [place]]. [facility], [place], [place]: July 2015. Performed By: #### 5 0190-8, 2275-12, 2132-05, 2284-04 #### [facility] CLIA [id number] [address] [place] [address] [place] Iron and Iron binding capaci [facility] 04-20-2025 Iron [Mass/Vol] 104 ug/dL Normal 41-186 [facility] Comment on above: Order Comment: Speci men Type: BLOOD SPECIMEN Ordering Facility: [facility] Address: [address] [place] [address] Performed By: #### 5 0190-8, 2275-12, 2132-05, 2284-04 #### [facility] CLIA [id number] [address] [place] [address] [place] Iron binding capacity [Mass/Vol] 342 ug/dL Normal 232-386 [facility] Comment on above: Order Comment: Speci men Type: BLOOD SPECIMEN Ordering Facility: [facility] Address: [address] [place] [address] Performed By: #### 5 0190-8, 2275-12, 2132-05, 2284-04 #### [facility] CLIA [id number] [address] [place] [address] [place] Iron/TIBC [Molar ratio] 30.4 % Normal 15.0-57.0 [facility] Comment on above: Order Comment: Speci men Type: BLOOD SPECIMEN Ordering Facility: [facility] Address: [address] [place] [address] Performed By: #### 5 0190-8, 2275-12, 2132-05, 2284-04 #### [facility] CLIA [id number] [address] [place] [address] [place] Vit B12 SerPl-mCncon 025 Cobalamin (Vitamin B12) [Mass/Vol] 840 pg/mL Normal 232-1245 [facility] Comment on above: Order Comment: Speci men Type: BLOOD SPECIMEN Ordering Facility: [facility] Address: [address] [place] [address] Performed By: #### 5 0190-8, 2275-12, 2132-05, 2284-04 #### [facility] CLIA [id number] [address] [place] [address] [place] Zinc SerPl-mCncon 04-20-2025 Zinc [Mass/Vol] 84 ug/dL Normal 60-120 [facility] Comment on above: Order Comment: Speci men Type: BLOOD SPECIMEN Ordering Facility: [facility] Address: [address] [place] [address] Result Comment: This test was developed, and its performance characteristics determined by the [facility] Department of Pathology and Laboratory Medicine. It has not been cleared or approved by the FDA. The [facility] Department of Pathology and Laboratory Medicine is regulated under CLIA as qualified to perform high-complexity testing. This test is used for clinical purposes. It should not be regarded as investigational or for research. Performed By: #### 5 763-8, COPPER #### [facility] CLIA [id number] [address] [place] [address] [place] KEPPRA (LEVETIRACETAM)on KEPPRA 11.2 ug/mL Normal 10.0-40.0 [facility] Comment on above: Order Comment: 516.1 Result Comment: Perf ormed at: - [facility] [id number] Director: Rk Petty MD, Phone: [phone] Performed By: #### L 501.2300, L500.4050, L3310.0000, L100.0500 ####[facility] [address] [place], [place], [id number] Anion gap in Serum or Plasma Ordered By: Devendra Beverly on 04-06-2025 Anion gap [Moles/Vol] 16 mmol/L High 5-15 [facility] BUN/creatinine ratioOrdered By: Devendra Beverly on 04-06-2025 Urea nitrogen/Creatinine [Mass ratio] 12.3 mg/mg 10-20 [facility] Bilirubin, totalOrdered By: Devendra Beverly on 04-06-2025 Bilirubin [Mass/Vol] 0.24 mg/dL 0.00-1.30 [facility] CBC-Complete Blood Cnt No Di ffon 04-06-2025 Erythrocyte distribution width (RBC) [Ratio] 12.3 % Normal 11.6-14.6 [facility] Comment on above: Order Comment: 516.1 Performed By: #### L 501.2300, L500.4050, L3310.0000, L100.0500 ####[facility] [address] [place], [place], [id number] Hematocrit (Bld) [Volume fraction] 27.1 % Low 37-47 [facility] Comment on above: Order Comment: 516.1 Performed By: #### L 501.2300, L500.4050, L3310.0000, L100.0500 ####[facility] [address] [place], [address] Hemoglobin (Bld) [Mass/Vol] 8.9 g/dL Low 12.0-15.0 [facility] Comment on above: Order Comment: 516.1 Performed By: #### L 501.2300, L500.4050, L3310.0000, L100.0500 ####[facility] [address] [place], [address] MCH (RBC) [Entitic mass] 31.1 pg Normal 27.0-32.0 [facility] Comment on above: Order Comment: 516.1 Performed By: #### L 501.2300, L500.4050, L3310.0000, L100.0500 ####[facility] [address] [place], [address] MCHC (RBC) [Mass/Vol] 32.8 g/dL Normal 32-36 [facility] Comment on above: Order Comment: 516.1 Performed By: #### L 501.2300, L500.4050, L3310.0000, L100.0500 ####[facility] [address] [place], [address] MCV (RBC) [Entitic vol] 94.8 fL Normal 81-99 [facility] Comment on above: Order Comment: 516.1 Performed By: #### L 501.2300, L500.4050, L3310.0000, L100.0500 ####[facility] [address] [place], [address] Platelet mean volume (Bld) [Entitic vol] 10.6 fL Normal 6.2-12.0 [facility] Comment on above: Order Comment: 516.1 Performed By: #### L 501.2300, L500.4050, L3310.0000, L100.0500 ####[facility] [address] [place], [address] Platelets (Bld) [#/Vol] 301 10*3/uL Normal 150-450 [facility] Comment on above: Order Comment: 516.1 Performed By: #### L 501.2300, L500.4050, L3310.0000, L100.0500 ####[facility] [address] [place], [address] RBC (Bld) [#/Vol] 2.86 10*6/uL Low 4.2-5.4 [facility] Comment on above: Order Comment: 516.1 Performed By: #### L 501.2300, L500.4050, L3310.0000, L100.0500 ####[facility] [address] [place], [address] RDW SD 42.8 fl Normal 35.1-43.9 [facility] Comment on above: Order Comment: 516.1 Performed By: #### L 501.2300, L500.4050, L3310.0000, L100.0500 ####[facility] [address] [place], [address] WBC (Bld) [#/Vol] 9.2 10*3/uL Normal 4.4-11.0 [facility] Comment on above: Order Comment: 516.1 Performed By: #### L 501.2300, L500.4050, L3310.0000, L100.0500 ####[facility] [address] [place], [address] Carbon dioxide, total [Moles /volume] in Central venous bloodOrdered By: Devendra Beverly on 04-06-2025 CO2 [Moles/Vol] 21.7 mmol/L 21.0-32.0 [facility] Chloride assayOrdered By: Keaton Beverly on 04-06-2025 Chloride [Moles/Vol] 103 mmol/L 98-108 [facility] Comprehensive Metabolic Prof ilon 04-06-2025 Albumin [Mass/Vol] 4.3 g/dL Normal 3.4-4.8 [facility] Comment on above: Order Comment: 516.1 Performed By: #### L 501.2300, L500.4050, L3310.0000, L100.0500 ####[facility] [address] [place], [address] Albumin/Globulin [Mass ratio] 1.8 {ratio} Normal 0.9-2.4 [facility] Comment on above: Order Comment: 516.1 Performed By: #### L 501.2300, L500.4050, L3310.0000, L100.0500 ####[facility] [address] [place], [address] ALK PHOS 83 U/L Normal 35-104 [facility] Comment on above: Order Comment: 516.1 Performed By: #### L 501.2300, L500.4050, L3310.0000, L100.0500 ####[facility] [address] [place], [address] ALT [Catalytic activity/Vol] 14 U/L Normal <=34 [facility] Comment on above: Order Comment: 516.1 Performed By: #### L 501.2300, L500.4050, L3310.0000, L100.0500 ####[facility] [address] [place], [address] AST [Catalytic activity/Vol] 18 U/L Normal <=31 [facility] Comment on above: Order Comment: 516.1 Performed By: #### L 501.2300, L500.4050, L3310.0000, L100.0500 ####[facility] [address] [place], [address] Bilirubin [Mass/Vol] 0.24 mg/dL Normal 0.00-1.30 [facility] Comment on above: Order Comment: 516.1 Performed By: #### L 501.2300, L500.4050, L3310.0000, L100.0500 ####[facility] [address] [place], [address] BUN/CRE 12.3 RATIO Normal 10-20 [facility] Comment on above: Order Comment: 516.1 Performed By: #### L 501.2300, L500.4050, L3310.0000, L100.0500 ####[facility] [address] [place], [address] Calcium [Mass/Vol] 9.5 mg/dL Normal 7.6-11.0 [facility] Comment on above: Order Comment: 516.1 Performed By: #### L 501.2300, L500.4050, L3310.0000, L100.0500 ####[facility] [address] [place], [address] Chloride [Moles/Vol] 103 mmol/L Normal 98-108 [facility] Comment on above: Order Comment: 516.1 Performed By: #### L 501.2300, L500.4050, L3310.0000, L100.0500 ####[facility] [address] [place], [address] CO2 [Moles/Vol] 21.7 mmol/L Normal 21.0-32.0 [facility] Comment on above: Order Comment: 516.1 Performed By: #### L 501.2300, L500.4050, L3310.0000, L100.0500 ####[facility] [address] [place], [address] Creatinine [Mass/Vol] 4.45 mg/dL High 0.70-1.20 [facility] Comment on above: Order Comment: 516.1 Performed By: #### L 501.2300, L500.4050, L3310.0000, L100.0500 ####[facility] [address] [place], [address] GAP 16 High 5-15 [facility] Comment on above: Order Comment: 516.1 Performed By: #### L 501.2300, L500.4050, L3310.0000, L100.0500 ####[facility] [address] [place], [address] GFR/1.73 sq M.predicted among non-blacks MDRD (S/P/Bld) [Vol rate/Area] 10 mL/min/{1.73_m2} Low >60 [facility] Comment on above: Order Comment: 516.1 Result Comment: mL/m in/1.73m2 CKD-EPI Creatinine Equation (2020) Performed By: #### L 501.2300, L500.4050, L3310.0000, L100.0500 ####[facility] [address] [place], [address] Globulin (S) [Mass/Vol] 2.3 g/dL Normal 2.2-4.2 [facility] Comment on above: Order Comment: 516.1 Performed By: #### L 501.2300, L500.4050, L3310.0000, L100.0500 ####[facility] [address] [place], [address] Glucose [Mass/Vol] 139 mg/dL High 70-99 [facility] Comment on above: Order Comment: 516.1 Performed By: #### L 501.2300, L500.4050, L3310.0000, L100.0500 ####[facility] [address] [place], [address] Potassium [Moles/Vol] 4.0 mmol/L Normal 3.3-5.1 [facility] Comment on above: Order Comment: 516.1 Performed By: #### L 501.2300, L500.4050, L3310.0000, L100.0500 ####[facility] [address] [place], [address] Sodium [Moles/Vol] 140 mmol/L Normal 133-145 [facility] Comment on above: Order Comment: 516.1 Performed By: #### L 501.2300, L500.4050, L3310.0000, L100.0500 ####[facility] [address] [place], [address] T PROT 6.6 g/dL Normal 5.9-8.4 [facility] Comment on above: Order Comment: 516.1 Performed By: #### L 501.2300, L500.4050, L3310.0000, L100.0500 ####[facility] [address] [place], [address] Urea nitrogen [Mass/Vol] 55 mg/dL High 4-19 [facility] Comment on above: Order Comment: 516.1 Performed By: #### L 501.2300, L500.4050, L3310.0000, L100.0500 ####[facility] [address] [place], [address] Erythrocyte distribution wid th ratioOrdered By: Devendra Beverly on 04-06-2025 Erythrocyte distribution width (RBC) [Ratio] 12.3 % 11.6-14.6 [facility] Erythrocyte distribution wid th standard deviationOrdered By: Devendra Beverly on 04-06-2025 Erythrocyte distribution width (RBC) [Ratio] 42.8 fl 35.1-43.9 [facility] Glomerular filtration rate ( GFR) estimation/1.73 sq m using serum, plasma, or whole bOrdered By: Devendra Beverly on 04-06-2025 GFR/1.73 sq M.predicted among non-blacks MDRD (S/P/Bld) [Vol rate/Area] 10 mL/min/{1.73_m2} Low >60 [facility] Comment on above: mL/min/1.73m2 CKD-EP I Creatinine Equation (2020) Hematocrit Auto (Bld) [Volum e fraction]Ordered By: Devendra Beverly on 04-06-2025 Hematocrit (Bld) [Volume fraction] 27.1 % Low 37-47 [facility] Hemoglobin measurementOrdere d By: Devendra Beverly on 04-06-2025 Hemoglobin (Bld) [Mass/Vol] 8.9 g/dL Low 12.0-15.0 [facility] Laboratory - Chemistry and C hemistry - challengeOrdered By: Devendra Beverly on 04-06-2025 AST [Catalytic activity/Vol] 18 U/L <32 [facility] LevetiracetamOrdered By: Tee Beverly on 04-06-2025 levETIRAcetam [Mass/Vol] 11.2 ug/mL 10.0-40.0 [facility] Comment on above: Performed at: [address] [id number] Director: Rk Petty MD, Phone: [phone] MCV (mean corpuscular volume ) determinationOrdered By: Devendra Beverly on 04-06-2025 MCV (RBC) [Entitic vol] 94.8 fL 81-99 [facility] Mean corpuscular hemoglobin (MCH) determinationOrdered By: Devendra Beverly on 04-06-2025 MCH (RBC) [Entitic mass] 31.1 pg 27.0-32.0 [facility] Mean corpuscular hemoglobin concentration (MCHC) determinationOrdered By: Devendra Beverly on 04-06-2025 MCHC (RBC) [Mass/Vol] 32.8 g/dL 32-36 [facility] Mean platelet volume determi nationOrdered By: Devendra Beverly on 04-06-2025 Platelet mean volume (Bld) [Entitic vol] 10.6 fL 6.2-12.0 [facility] Phosphoruson 04-06-2025 Phosphate [Mass/Vol] 4.7 mg/dL High 2.7-4.5 [facility] Comment on above: Order Comment: 516.1 Performed By: #### L 501.2300, L500.4050, L3310.0000, L100.0500 ####[facility] [address] [place], [address] Platelet countOrdered By: Keaton Beverly on 04-06-2025 Platelets (Bld) [#/Vol] 301 10*3/uL 150-450 [facility] Potassium measurement (mass/ volume)Ordered By: Devendra Beverly on 04-06-2025 Potassium (Unsp spec) [Mass/Vol] 4.0 mmol/L 3.3-5.1 [facility] RBC Auto (Bld) [#/Vol]Ordere d By: Devendra Beverly on 04-06-2025 RBC (Bld) [#/Vol] 2.86 10*6/uL Low 4.2-5.4 [facility] Serum creatinine measurement (mass/volume)Ordered By: Devendra Beverly on 04-06-2025 Creatinine [Mass/Vol] 4.45 mg/dL High 0.70-1.20 [facility] Serum globulin measurementOr dered By: Devendra Beverly on 04-06-2025 Globulin (S) [Mass/Vol] 2.3 g/dL 2.2-4.2 [facility] Serum glucose measurement (m ass/volume)Ordered By: Devendra Beverly on 04-06-2025 Glucose [Mass/Vol] 139 mg/dL High 70-99 [facility] Serum or plasma alanine mckeon otransferase (ALT) measurementOrdered By: Devendra Beverly on 04-06-2025 ALT [Catalytic activity/Vol] 14 U/L <35 [facility] Serum or plasma albumin yamil urement (mass/volume)Ordered By: Devendra Beverly on 04-06-2025 Albumin [Mass/Vol] 4.3 g/dL 3.4-4.8 [facility] Serum or plasma albumin/glob ulin mass ratioOrdered By: Devendra Beverly on 04-06-2025 Albumin/Globulin [Mass ratio] 1.8 {ratio} 0.9-2.4 [facility] Serum or plasma alkaline anthony sphatase measurementOrdered By: Devendra Beverly on 04-06-2025 ALP [Catalytic activity/Vol] 83 U/L 35-104 [facility] Serum or plasma calcium yamil urement (mass/volume)Ordered By: Devendra Beverly on 04-06-2025 Calcium [Mass/Vol] 9.5 mg/dL 7.6-11.0 [facility] Serum or plasma urea nitroge n measurement (mass/volume)Ordered By: Devendra Beverly on 04-06-2025 Urea nitrogen [Mass/Vol] 55 mg/dL High 4-19 [facility] Sodium levelOrdered By: Collin Beverly on 04-06-2025 Sodium [Moles/Vol] 140 mmol/L 133-145 [facility] Total proteinOrdered By: Tee Beverly on 04-06-2025 Protein [Mass/Vol] 6.6 g/dL 5.9-8.4 [facility] White blood cell (WBC) count Ordered By: Devendra Beverly on 04-06-2025 WBC (Bld) [#/Vol] 9.2 10*3/uL 4.4-11.0 [facility] Urine Cultureon 04-01-2025 URC Normal [facility] Comment on above: Performed By: #### L 400.0001, M100.2200 ####[facility] [address] [place], [place], [id number] Bilirubin Test strip Ql (U)O rdered By: Devendra Beverly on 03-30-2025 Bilirubin Ql (U) Negative Negative [facility] Ketones Test strip Ql (U)Ord ered By: Devendra Beverly on 03-30-2025 Ketones Ql (U) Negative Negative [facility] Microscopic analysis of urin e for red blood cells (RBC)Ordered By: Devendra Beverly on 03-30-2025 Microscopic analysis of urine for red blood cells (RBC) 0 SEEN /hpf 0-5 [facility] Mucus LM Ql (Urine sed)Order ed By: Devendra Beverly on 03-30-2025 Mucus Ql (Urine sed) 0 SEEN /hpf [facility] Nitrite Test strip Ql (U)Ord ered By: Devendra Beverly on 03-30-2025 Nitrite Ql (U) Negative Negative [facility] Protein Test strip Ql (U)Ord ered By: Devendra Beverly on 03-30-2025 Protein Ql (U) 100 mg/dl High Negative [facility] Squamous epithelial cells de tection in urine sediment by light microscopyOrdered By: Devendra Beverly on 03-30-2025 Epithelial cells.squamous LM Ql (Urine sed) 0-5 SEEN /hpf 5-10 [facility] Transitional cells detection in urine sediment by light microscopyOrdered By: Devendra Beverly on 03-30-2025 Transitional cells LM Ql (Urine sed) 0-5 SEEN /hpf 0-5 [facility] Urinalysis, Completeon 03-30 BACTERIA 1+ /hpf Normal None Seen [facility] Comment on above: Order Comment: CLEAN CATCH Performed By: #### L 400.0001, M100.2200 ####[facility] [address] [place], [address] EPI,SQUAMOUS 0-5 SEEN Normal 5-10 [facility] Comment on above: Order Comment: CLEAN CATCH Performed By: #### L 400.0001, M100.0 ####[facility] [address] [place], [address] WBC 25-50 SEEN Normal 0-[address] [place] [address] Comment on above: Order Comment: CLEAN CATCH Performed By: #### L 400.0001, M100.2200 ####[facility] [address] [place], [address] EPI,TRANSITION 0-5 SEEN Normal 0-[address] [place] [address] Comment on above: Order Comment: CLEAN CATCH Performed By: #### L 400.0001, M100.2200 ####[facility] [address] [place], [address] Mucus Ql (Urine sed) 0 SEEN Normal [facility] Comment on above: Order Comment: CLEAN CATCH Performed By: #### L 400.0001, M100.2200 ####[facility] [address] [place], [address] RBC 0 SEEN Normal 0-5 [facility] Comment on above: Order Comment: CLEAN CATCH Performed By: #### L 400.0001, M100.2200 ####[facility] [address] [place], [place], [address] Urine clarityOrdered By: Tee Beverly on 03-30-2025 Clarity (U) Sl. Cloudy Clear [facility] Urine color determinationOrd ered By: Devendra Beverly on 03-30-2025 Color (U) Yellow Yellow [facility] Urine cultureOrdered By: Tee Beverly on 03-30-2025 Bacteria identified Cx Nom (U) Morganella morganii sp morgani Abnormal [facility] Urine glucose detectionOrder ed By: Devendra Beverly on 03-30-2025 Glucose Ql (U) 100 mg/dl High Normal [facility] Urine leukocyte esterase det ection by dipstickOrdered By: Devendra Beverly on 03-30-2025 Leukocyte esterase Test strip Ql (U) 500 /ul High Negative [facility] Urine pHOrdered By: Devendra warren on 03-30-2025 pH (U) 7.0 [pH] 5.0 - 8.0 [facility] Urine sediment bacteria coun t by microscopy (number/high power field)Ordered By: Devendra Beverly on 03-30-2025 Bacteria LM.HPF (Urine sed) [#/Area] 1 /[HPF] None Seen [facility] Urine specific gravity measu rementOrdered By: Devendra Beverly on 03-30-2025 Specific gravity (U) [Rel density] 1.010 1.002-1.030 [facility] Urine urobilinogen measureme ntOrdered By: Devendra Beverly on 03-30-2025 Urobilinogen Ql (U) Normal mg/dl Normal [facility] White blood cell countOrdere d By: Devendra Beverly on 03-30-2025 White blood cell count 25-50 SEEN /hpf 0-5 [facility] Magnesiumon 02-12-2025 Magnesium [Mass/Vol] 2.2 mg/dL Normal 1.5-2.2 [facility] Comment on above: Performed By: #### L 501.5200 ####[facility] [address] [place], [address] Magnesium measurement (mass/ volume)Ordered By: Devendra Beverly on 02-12-2025 Magnesium (Unsp spec) [Mass/Vol] 2.2 mg/dL 1.5-2.2 [facility] Vitamin D,25 Hydroxyon 01-13 Vitamin D 25-OH 57.4 ng/mL Normal 30-100 [facility] Comment on above: Order Comment: 516-1 Result Comment: Lois min D StatusDeficiency: <20 ng/mL (50nmol/L)Insufficiency: 20-30 ng/mL (50-75 nmol/L)Sufficiency: 30-100 ng/mL (75-250 nmol/L)Toxicity: >100 ng/mL (>250 nmol/L) Performed By: #### L 506.1001 ####[facility] [address] [place], [address] Anion gap in Serum or Plasma Ordered By: Johana Landrum on 12-02-2024 Anion gap [Moles/Vol] 17 mmol/L High 5-15 [facility] BUN/creatinine ratioOrdered By: Johana Landrum on 12-02-2024 Urea nitrogen/Creatinine [Mass ratio] 13.2 mg/mg 10-20 [facility] Basic Metabolic Profile (BMP )on 12-02-2024 BUN/CRE 13.2 RATIO Normal -20 [facility] Comment on above: Order Comment: 516.1 Performed By: #### L 506.1001, L501.0900, L100.0500, L500.2500 ####[facility] [address] [place], [address] Calcium [Mass/Vol] 9.4 mg/dL Normal 7.6-11.0 [facility] Comment on above: Order Comment: 516.1 Performed By: #### L 506.1001, L501.0900, L100.0500, L500.2500 ####[facility] [address] [place], [address] Chloride [Moles/Vol] 105 mmol/L Normal 98-108 [facility] Comment on above: Order Comment: 516.1 Performed By: #### L 506.1001, L501.0900, L100.0500, L500.2500 ####[facility] [address] [place], [address] CO2 [Moles/Vol] 19.6 mmol/L Low 21.0-32.0 [facility] Comment on above: Order Comment: 516.1 Performed By: #### L 506.1001, L501.0900, L100.0500, L500.2500 ####[facility] [address] [place], [address] Creatinine [Mass/Vol] 3.79 mg/dL High 0.70-1.20 [facility] Comment on above: Order Comment: 516.1 Performed By: #### L 506.1001, L501.0900, L100.0500, L500.2500 ####[facility] [address] [place], [address] GAP 17 High 5-15 [facility] Comment on above: Order Comment: 516.1 Performed By: #### L 506.1001, L501.0900, L100.0500, L500.2500 ####[facility] [address] [place], [address] GFR/1.73 sq M.predicted among non-blacks MDRD (S/P/Bld) [Vol rate/Area] 12 mL/min/{1.73_m2} Low >60 [facility] Comment on above: Order Comment: 516.1 Result Comment: mL/m in/1.73m2 CKD-EPI Creatinine Equation (2020) Performed By: #### L 506.1001, L501.0900, L100.0500, L500.2500 ####[facility] [address] [place], [address] Glucose [Mass/Vol] 127 mg/dL High 70-99 [facility] Comment on above: Order Comment: 516.1 Performed By: #### L 506.1001, L501.0900, L100.0500, L500.2500 ####[facility] [address] [place], [address] Potassium [Moles/Vol] 3.7 mmol/L Normal 3.3-5.1 [facility] Comment on above: Order Comment: 516.1 Performed By: #### L 506.1001, L501.0900, L100.0500, L500.2500 ####[facility] [address] [place], [address] Sodium [Moles/Vol] 141 mmol/L Normal 133-145 [facility] Comment on above: Order Comment: 516.1 Performed By: #### L 506.1001, L501.0900, L100.0500, L500.2500 ####[facility] [address] [place], [address] Urea nitrogen [Mass/Vol] 50 mg/dL High 4-19 [facility] Comment on above: Order Comment: 516.1 Performed By: #### L 506.1001, L501.0900, L100.0500, L500.2500 ####[facility] [address] [place], [address] CBC-Complete Blood Cnt No Di ffon 12-02-2024 Erythrocyte distribution width (RBC) [Ratio] 11.9 % Normal 11.6-14.6 [facility] Comment on above: Order Comment: 516.1 Performed By: #### L 506.1001, L501.0900, L100.0500, L500.2500 ####[facility] [address] [place], [address] Hematocrit (Bld) [Volume fraction] 28.2 % Low 37-47 [facility] Comment on above: Order Comment: 516.1 Performed By: #### L 506.1001, L501.0900, L100.0500, L500.2500 ####[facility] [address] [place], [address] Hemoglobin (Bld) [Mass/Vol] 9.8 g/dL Low 12.0-15.0 [facility] Comment on above: Order Comment: 516.1 Performed By: #### L 506.1001, L501.0900, L100.0500, L500.2500 ####[facility] [address] [place], [address] MCH (RBC) [Entitic mass] 32.1 pg High 27.0-32.0 [facility] Comment on above: Order Comment: 516.1 Performed By: #### L 506.1001, L501.0900, L100.0500, L500.2500 ####[facility] [address] [place], [address] MCHC (RBC) [Mass/Vol] 34.8 g/dL Normal 32-36 [facility] Comment on above: Order Comment: 516.1 Performed By: #### L 506.1001, L501.0900, L100.0500, L500.2500 ####[facility] [address] [place], [address] MCV (RBC) [Entitic vol] 92.5 fL Normal 81-99 [facility] Comment on above: Order Comment: 516.1 Performed By: #### L 506.1001, L501.0900, L100.0500, L500.2500 ####[facility] [address] [place], [address] Platelet mean volume (Bld) [Entitic vol] 10.3 fL Normal 6.2-12.0 [facility] Comment on above: Order Comment: 516.1 Performed By: #### L 506.1001, L501.0900, L100.0500, L500.2500 ####[facility] [address] [place], [address] Platelets (Bld) [#/Vol] 341 10*3/uL Normal 150-450 [facility] Comment on above: Order Comment: 516.1 Performed By: #### L 506.1001, L501.0900, L100.0500, L500.2500 ####[facility] [address] [place], [address] RBC (Bld) [#/Vol] 3.05 10*6/uL Low 4.2-5.4 [facility] Comment on above: Order Comment: 516.1 Performed By: #### L 506.1001, L501.0900, L100.0500, L500.2500 ####[facility] [address] [place], [address] RDW SD 39.9 fl Normal 35.1-43.9 [facility] Comment on above: Order Comment: 516.1 Performed By: #### L 506.1001, L501.0900, L100.0500, L500.2500 ####[facility] [address] [place], [address] WBC (Bld) [#/Vol] 10.2 10*3/uL Normal 4.4-11.0 [facility] Comment on above: Order Comment: 516.1 Performed By: #### L 506.1001, L501.0900, L100.0500, L500.2500 ####[facility] [address] [place], [address] Carbon dioxide, total [Moles /volume] in Central venous bloodOrdered By: Johana Landrum on 12-02-2024 CO2 [Moles/Vol] 19.6 mmol/L Low 21.0-32.0 [facility] Chloride assayOrdered By: Jake Landrum on 12-02-2024 Chloride [Moles/Vol] 105 mmol/L 98-108 [facility] Creatinine Unsp time (U) [Ma ss/Vol]Ordered By: Johana Landrum on 12-02-2024 Creatinine (U) [Mass/Vol] 48.90 mg/dL 28.00-217.0 0 [facility] Erythrocyte distribution wid th (RBC) [Ratio]Ordered By: Johana Landrum on 12-02-2024 Erythrocyte distribution width (RBC) [Entitic vol] 39.9 fL 35.1-43.9 [facility] Erythrocyte distribution wid th ratioOrdered By: Johana Landrum on 12-02-2024 Erythrocyte distribution width (RBC) [Ratio] 11.9 % 11.6-14.6 [facility] Erythrocyte distribution wid th standard deviationOrdered By: Johana Landrum on 12-02-2024 Erythrocyte distribution width (RBC) [Ratio] 39.9 fl 35.1-43.9 [facility] GFR/1.73 sq M.predicted sharif g non-blacks MDRD (S/P/Bld) [Vol rate/Area]Ordered By: Johana Landrum on 12-02-2024 Estimated GFR (MDRD) Non-Af Amer 12 Low >60 [facility] Comment on above: mL/min/1.73m2 CKD-EP I Creatinine Equation (2020) Glomerular filtration rate ( GFR) estimation/1.73 sq m using serum, plasma, or whole bOrdered By: Johana Landrum on 12-02-2024 GFR/1.73 sq M.predicted among non-blacks MDRD (S/P/Bld) [Vol rate/Area] 12 mL/min/{1.73_m2} Low >60 [facility] Comment on above: mL/min/1.73m2 CKD-EP I Creatinine Equation (2020) Hematocrit Auto (Bld) [Volum e fraction]Ordered By: Johana Landrum on 12-02-2024 Hematocrit (Bld) [Volume fraction] 28.2 % Low 37-47 [facility] Hemoglobin measurementOrdere d By: Johana Landrum on 12-02-2024 Hemoglobin (Bld) [Mass/Vol] 9.8 g/dL Low 12.0-15.0 [facility] L506.1001on 12-02-2024 Vitamin D 25-OH 31.9 ng/mL Normal 30-100 [facility] Comment on above: Order Comment: 516.1 Result Comment: Lois min D StatusDeficiency: <20 ng/mL (50nmol/L)Insufficiency: 20-30 ng/mL (50-75 nmol/L)Sufficiency: 30-100 ng/mL (75-250 nmol/L)Toxicity: >100 ng/mL (>250 nmol/L) Performed By: #### L 506.1001, L501.0900, L100.0500, L500.2500 ####[facility] [address] [place], [address] MCV (mean corpuscular volume ) determinationOrdered By: Johana Landrum on 12-02-2024 MCV (RBC) [Entitic vol] 92.5 fL 81-99 [facility] Mean corpuscular hemoglobin (MCH) determinationOrdered By: Johana Landrum on 12-02-2024 MCH (RBC) [Entitic mass] 32.1 pg High 27.0-32.0 [facility] Mean corpuscular hemoglobin concentration (MCHC) determinationOrdered By: Johana Landrum on 12-02-2024 MCHC (RBC) [Mass/Vol] 34.8 g/dL 32-36 [facility] Mean platelet volume determi nationOrdered By: Johana Landrum on 12-02-2024 Platelet mean volume (Bld) [Entitic vol] 10.3 fL 6.2-12.0 [facility] Platelet countOrdered By: Jake Landrum on 12-02-2024 Platelets (Bld) [#/Vol] 341 10*3/uL 150-450 [facility] Potassium (Unsp spec) [Mass/ Vol]Ordered By: Johana Landrum on 12-02-2024 Potassium [Moles/Vol] 3.7 mmol/L 3.3-5.1 [facility] Potassium measurement (mass/ volume)Ordered By: Johana Landrum on 12-02-2024 Potassium (Unsp spec) [Mass/Vol] 3.7 mmol/L 3.3-5.1 [facility] Protein+Creatinine Ratio,Uri neon 12-02-2024 PROT:CRE RATIO 1973 mg/g CRE High 0-200 [facility] Comment on above: Performed By: #### L 506.1001, L501.0900, L100.0500, L500.2500 ####[facility] [address] [place], [address] Protein (U) [Mass/Vol] 96.5 mg/dL High 0.0-12.0 [facility] Comment on above: Performed By: #### L 506.1001, L501.0900, L100.0500, L500.2500 ####[facility] [address] [place], [address] UR CREAT 48.90 mg/dL Normal 28.00-217.0 0 [facility] Comment on above: Performed By: #### L 506.1001, L501.0900, L100.0500, L500.2500 ####[facility] [address] [place], [address] Protein/Creatinine (U) [Mass ratio]Ordered By: Johana Landrum on 12-02-2024 Urine Protein/Creatinine Ratio 1973 mg/g CRE High 0-200 [facility] RBC Auto (Bld) [#/Vol]Ordere d By: Johana Landrum on 12-02-2024 RBC (Bld) [#/Vol] 3.05 10*6/uL Low 4.2-5.4 [facility] Random urine creatinine yamil urement (mass/volume)Ordered By: Johana Landrum on 12-02-2024 Creatinine Unsp time (U) [Mass/Vol] 48.90 mg/dL 28.00-217.0 0 [facility] Serum creatinine measurement (mass/volume)Ordered By: Johana Landrum on 12-02-2024 Creatinine [Mass/Vol] 3.79 mg/dL High 0.70-1.20 [facility] Serum glucose measurement (m ass/volume)Ordered By: Johana Landrum on 12-02-2024 Glucose [Mass/Vol] 127 mg/dL High 70-99 [facility] Serum or plasma calcium yamil urement (mass/volume)Ordered By: Johana Landrum on 12-02-2024 Calcium [Mass/Vol] 9.4 mg/dL 7.6-11.0 [facility] Serum or plasma urea nitroge n measurement (mass/volume)Ordered By: Johana Landrum on 12-02-2024 Urea nitrogen [Mass/Vol] 50 mg/dL High 4-19 [facility] Sodium levelOrdered By: Doris Landrum on 12-02-2024 Sodium [Moles/Vol] 141 mmol/L 133-145 [facility] Urine protein measurement (m ass/volume)Ordered By: Johana Landrum on 12-02-2024 Protein (U) [Mass/Vol] 96.5 mg/dL High 0.0-12.0 [facility] Urine protein/creatinine mas s ratioOrdered By: Johana Landrum on 12-02-2024 Protein/Creatinine (U) [Mass ratio] 1973 mg/g CRE High 0-200 [facility] Vitamin D, 25-hydroxyOrdered By: Johana Landrum on 12-02-2024 Vitamin D 25-Hydroxy 31.9 ng/mL 30-100 [facility] Comment on above: Vitamin D StatusDefi ciency: <20 ng/mL (50nmol/L)Insufficiency: 20-30 ng/mL (50-75 nmol/L)Sufficiency: 30-100 ng/mL (75-250 nmol/L)Toxicity: >100 ng/mL (>250 nmol/L) White blood cell (WBC) count Ordered By: Johana Landrum on 12-02-2024 WBC (Bld) [#/Vol] 10.2 10*3/uL 4.4-11.0 [facility] Absolute lymphocyte countOrd ered By: Johana Landrum on 11-30-2024 Lymphocytes Auto (Unsp spec) [#/Vol] 2.30 10*3/uL 0.83-4.51 [facility] Absolute neutrophil countOrd ered By: Johana Ortizsherley on 11-30-2024 Neutrophils (Bld) [#/Vol] 6.5 10*3/uL 2.0-7.7 [facility] Anion gap in Serum or Plasma Ordered By: Johana Landrum on 11-30-2024 Anion gap [Moles/Vol] 17 mmol/L High 5-15 [facility] Automated lymphocyte count a s percentage of total leukocytesOrdered By: Johanajosé manuel Landrum on 11-30-2024 Lymphocytes/100 WBC Auto (Unsp spec) 22.4 % 19-41 [facility] BUN/creatinine ratioOrdered By: Johanajosé manuel Landrum on 11-30-2024 Urea nitrogen/Creatinine [Mass ratio] 12.9 mg/mg 10-20 [facility] Basophil percentageOrdered B y: Johana Landrum on 11-30-2024 Basophils/100 WBC (Bld) 0.7 % 0-1 [facility] Bilirubin, totalOrdered By: Johanajosé manuel Landrum on 11-30-2024 Bilirubin [Mass/Vol] 0.18 mg/dL 0.00-1.30 [facility] CBC W/Diff, Automatedon 11-02 Absolute Lymph 2.30 X10 3/uL Normal 0.83-4.51 [facility] Comment on above: Order Comment: 516.1 Performed By: #### L 500.4050, L501.5200, L100.0100 ####[facility] [address] [place], [address] Absolute Neut 6.5 X10 3/uL Normal 2.0-7.7 [facility] Comment on above: Order Comment: 516.1 Performed By: #### L 500.4050, L501.5200, L100.0100 ####[facility] [address] [place], [address] Basophils/100 WBC (Bld) 0.7 % Normal 0-1 [facility] Comment on above: Order Comment: 516.1 Performed By: #### L 500.4050, L501.5200, L100.0100 ####[facility] [address] [place], [address] Eosinophils/100 WBC (Bld) 3.4 % Normal 0-5 [facility] Comment on above: Order Comment: 516.1 Performed By: #### L 500.4050, L501.5200, L100.0100 ####[facility] [address] [place], [address] Erythrocyte distribution width (RBC) [Ratio] 11.9 % Normal 11.6-14.6 [facility] Comment on above: Order Comment: 516.1 Performed By: #### L 500.4050, L501.5200, L100.0100 ####[facility] [address] [place], [address] Hematocrit (Bld) [Volume fraction] 28.3 % Low 37-47 [facility] Comment on above: Order Comment: 516.1 Performed By: #### L 500.4050, L501.5200, L100.0100 ####[facility] [address] [place], [address] Hemoglobin (Bld) [Mass/Vol] 9.5 g/dL Low 12.0-15.0 [facility] Comment on above: Order Comment: 516.1 Performed By: #### L 500.4050, L501.5200, L100.0100 ####[facility] [address] [place], [address] IG% 1.000 High 0.0-0.9 [facility] Comment on above: Order Comment: 516.1 Result Comment: IG% - Immature Granulocytes (promyelocytes, myelocytes andmetamyelocytes) > 1% indicates that a LEFT SHIFT is Present. Performed By: #### L 500.4050, L501.5200, L100.0100 ####[facility] [address] [place], [address] Lymphocytes/100 WBC (Bld) 22.4 % Normal 19-41 [facility] Comment on above: Order Comment: 516.1 Performed By: #### L 500.4050, L501.5200, L100.0100 ####[facility] [address] [place], [address] MCH (RBC) [Entitic mass] 31.1 pg Normal 27.0-32.0 [facility] Comment on above: Order Comment: 516.1 Performed By: #### L 500.4050, L501.5200, L100.0100 ####[facility] [address] [place], [address] MCHC (RBC) [Mass/Vol] 33.6 g/dL Normal 32-36 [facility] Comment on above: Order Comment: 516.1 Performed By: #### L 500.4050, L501.5200, L100.0100 ####[facility] [address] [place], [address] MCV (RBC) [Entitic vol] 92.8 fL Normal 81-99 [facility] Comment on above: Order Comment: 516.1 Performed By: #### L 500.4050, L501.5200, L100.0100 ####[facility] [address] [place], [address] Monocytes/100 WBC (Bld) 9.5 % Normal 0-10 [facility] Comment on above: Order Comment: 516.1 Performed By: #### L 500.4050, L501.5200, L100.0100 ####[facility] [address] [place], [address] Neutrophils/100 WBC (Bld) 63.0 % Normal 47-70 [facility] Comment on above: Order Comment: 516.1 Performed By: #### L 500.4050, L501.5200, L100.0100 ####[facility] [address] [place], [address] Nucleated RBC (Bld) [#/Vol] 0 10*3/uL Normal 0-5 [facility] Comment on above: Order Comment: 516.1 Performed By: #### L 500.4050, L501.5200, L100.0100 ####[facility] [address] [place], [address] Platelet mean volume (Bld) [Entitic vol] 10.1 fL Normal 6.2-12.0 [facility] Comment on above: Order Comment: 516.1 Performed By: #### L 500.4050, L501.5200, L100.0100 ####[facility] [address] [place], [address] Platelets (Bld) [#/Vol] 335 10*3/uL Normal 150-450 [facility] Comment on above: Order Comment: 516.1 Performed By: #### L 500.4050, L501.5200, L100.0100 ####[facility] [address] [place], [address] RBC (Bld) [#/Vol] 3.05 10*6/uL Low 4.2-5.4 [facility] Comment on above: Order Comment: 516.1 Performed By: #### L 500.4050, L501.5200, L100.0100 ####[facility] [address] [place], [address] RDW SD 40.1 fl Normal 35.1-43.9 [facility] Comment on above: Order Comment: 516.1 Performed By: #### L 500.4050, L501.5200, L100.0100 ####[facility] [address] [place], [address] WBC (Bld) [#/Vol] 10.3 10*3/uL Normal 4.4-11.0 [facility] Comment on above: Order Comment: 516.1 Performed By: #### L 500.4050, L501.5200, L100.0100 ####[facility] [address] [place], [address] Carbon dioxide, total [Moles /volume] in Central venous bloodOrdered By: Johana Landrum on 11-30-2024 CO2 [Moles/Vol] 18.2 mmol/L Low 21.0-32.0 [facility] Chloride assayOrdered By: Jake Landrum on 11-30-2024 Chloride [Moles/Vol] 105 mmol/L 98-108 [facility] Comprehensive Metabolic Prof ilon 11-30-2024 Albumin [Mass/Vol] 4.3 g/dL Normal 3.4-4.8 [facility] Comment on above: Order Comment: 516.1 Performed By: #### L 500.4050, L501.5200, L100.0100 ####[facility] [address] [place], [address] Albumin/Globulin [Mass ratio] 1.8 {ratio} Normal 0.9-2.4 [facility] Comment on above: Order Comment: 516.1 Performed By: #### L 500.4050, L501.5200, L100.0100 ####[facility] [address] [place], [address] ALK PHOS 73 U/L Normal 35-104 [facility] Comment on above: Order Comment: 516.1 Performed By: #### L 500.4050, L501.5200, L100.0100 ####[facility] [address] [place], [address] ALT [Catalytic activity/Vol] 12 U/L Normal <=34 [facility] Comment on above: Order Comment: 516.1 Performed By: #### L 500.4050, L501.5200, L100.0100 ####[facility] [address] [place], [address] AST [Catalytic activity/Vol] 17 U/L Normal <=31 [facility] Comment on above: Order Comment: 516.1 Performed By: #### L 500.4050, L501.5200, L100.0100 ####[facility] [address] [place], [address] Bilirubin [Mass/Vol] 0.18 mg/dL Normal 0.00-1.30 [facility] Comment on above: Order Comment: 516.1 Performed By: #### L 500.4050, L501.5200, L100.0100 ####[facility] [address] [place], [address] BUN/CRE 12.9 RATIO Normal 10-20 [facility] Comment on above: Order Comment: 516.1 Performed By: #### L 500.4050, L501.5200, L100.0100 ####[facility] [address] [place], [address] Calcium [Mass/Vol] 9.6 mg/dL Normal 7.6-11.0 [facility] Comment on above: Order Comment: 516.1 Performed By: #### L 500.4050, L501.5200, L100.0100 ####[facility] [address] [place], [address] Chloride [Moles/Vol] 105 mmol/L Normal 98-108 [facility] Comment on above: Order Comment: 516.1 Performed By: #### L 500.4050, L501.5200, L100.0100 ####[facility] [address] [place], [address] CO2 [Moles/Vol] 18.2 mmol/L Low 21.0-32.0 [facility] Comment on above: Order Comment: 516.1 Performed By: #### L 500.4050, L501.5200, L100.0100 ####[facility] [address] [place], [address] Creatinine [Mass/Vol] 3.82 mg/dL High 0.70-1.20 [facility] Comment on above: Order Comment: 516.1 Performed By: #### L 500.4050, L501.5200, L100.0100 ####[facility] [address] [place], [address] GAP 17 High 5-15 [facility] Comment on above: Order Comment: 516.1 Performed By: #### L 500.4050, L501.5200, L100.0100 ####[facility] [address] [place], [address] GFR/1.73 sq M.predicted among non-blacks MDRD (S/P/Bld) [Vol rate/Area] 12 mL/min/{1.73_m2} Low >60 [facility] Comment on above: Order Comment: 516.1 Result Comment: mL/m in/1.73m2 CKD-EPI Creatinine Equation (2020) Performed By: #### L 500.4050, L501.5200, L100.0100 ####[facility] [address] [place], [address] Globulin (S) [Mass/Vol] 2.4 g/dL Normal 2.2-4.2 [facility] Comment on above: Order Comment: 516.1 Performed By: #### L 500.4050, L501.5200, L100.0100 ####[facility] [address] [place], [address] Glucose [Mass/Vol] 93 mg/dL Normal 70-99 [facility] Comment on above: Order Comment: 516.1 Performed By: #### L 500.4050, L501.5200, L100.0100 ####[facility] [address] [place], [address] Potassium [Moles/Vol] 3.7 mmol/L Normal 3.3-5.1 [facility] Comment on above: Order Comment: 516.1 Performed By: #### L 500.4050, L501.5200, L100.0100 ####[facility] [address] [place], [address] Sodium [Moles/Vol] 140 mmol/L Normal 133-145 [facility] Comment on above: Order Comment: 516.1 Performed By: #### L 500.4050, L501.5200, L100.0100 ####[facility] [address] [place], [address] T PROT 6.7 g/dL Normal 5.9-8.4 [facility] Comment on above: Order Comment: 516.1 Performed By: #### L 500.4050, L501.5200, L100.0100 ####[facility] [address] [place], [address] Urea nitrogen [Mass/Vol] 49 mg/dL High 4-19 [facility] Comment on above: Order Comment: 516.1 Performed By: #### L 500.4050, L501.5200, L100.0100 ####[facility] [address] [place], [address] Eosinophil percentageOrdered By: Johana Landrum on 11-30-2024 Eosinophils/100 WBC (Bld) 3.4 % 0-5 [facility] Erythrocyte distribution wid th (RBC) [Ratio]Ordered By: Johana Landrum on 11-30-2024 Erythrocyte distribution width (RBC) [Entitic vol] 40.1 fL 35.1-43.9 [facility] Erythrocyte distribution wid th ratioOrdered By: Johana Landrum on 11-30-2024 Erythrocyte distribution width (RBC) [Ratio] 11.9 % 11.6-14.6 [facility] Erythrocyte distribution wid th standard deviationOrdered By: Johana Landrum on 11-30-2024 Erythrocyte distribution width (RBC) [Ratio] 40.1 fl 35.1-43.9 [facility] GFR/1.73 sq M.predicted sharif g non-blacks MDRD (S/P/Bld) [Vol rate/Area]Ordered By: Johana Landrum on 11-30-2024 Estimated GFR (MDRD) Non-Af Amer 12 Low >60 [facility] Comment on above: mL/min/1.73m2 CKD-EP I Creatinine Equation (2020) Glomerular filtration rate ( GFR) estimation/1.73 sq m using serum, plasma, or whole bOrdered By: Johana Landrum on 11-30-2024 GFR/1.73 sq M.predicted among non-blacks MDRD (S/P/Bld) [Vol rate/Area] 12 mL/min/{1.73_m2} Low >60 [facility] Comment on above: mL/min/1.73m2 CKD-EP I Creatinine Equation (2020) Hematocrit Auto (Bld) [Volum e fraction]Ordered By: Johana Landrum on 11-30-2024 Hematocrit (Bld) [Volume fraction] 28.3 % Low 37-47 [facility] Hemoglobin measurementOrdere d By: Johana Landrum on 11-30-2024 Hemoglobin (Bld) [Mass/Vol] 9.5 g/dL Low 12.0-15.0 [facility] Immature granulocytes/100 WB C Auto (Bld)Ordered By: Johana Landrum on 11-30-2024 Immature granulocytes/100 WBC (Bld) 1.000 % High 0.0-0.9 [facility] Comment on above: IG% - Immature Granu locytes (promyelocytes, myelocytes and metamyelocytes) > 1% indicates that a LEFT SHIFT is Present. Laboratory - Chemistry and C hemistry - challengeOrdered By: Johana Landrum on 11-30-2024 AST [Catalytic activity/Vol] 17 U/L <32 [facility] Lymphocytes Auto (Unsp spec) [#/Vol]Ordered By: Johana Landrum on 11-30-2024 Lymphocytes (Bld) [#/Vol] 2.30 10*3/uL 0.83-4.51 [facility] Lymphocytes/100 WBC Auto (Un sp spec)Ordered By: Johana Landrum on 11-30-2024 Lymphocytes/100 WBC (Bld) 22.4 % 19-41 [facility] MCV (mean corpuscular volume ) determinationOrdered By: Johana Landrum on 11-30-2024 MCV (RBC) [Entitic vol] 92.8 fL 81-99 [facility] Magnesiumon 11-30-2024 Magnesium [Mass/Vol] 2.1 mg/dL Normal 1.5-2.2 [facility] Comment on above: Order Comment: 516.1 Performed By: #### L 500.4050, L501.5200, L100.0100 ####[facility] [address] [place], [place], [address] Magnesium (Unsp spec) [Mass/ Vol]Ordered By: Johana Landrum on 11-30-2024 Magnesium [Mass/Vol] 2.1 mg/dL 1.5-2.2 [facility] Magnesium measurement (mass/ volume)Ordered By: Johana Landrum on 11-30-2024 Magnesium (Unsp spec) [Mass/Vol] 2.1 mg/dL 1.5-2.2 [facility] Mean corpuscular hemoglobin (MCH) determinationOrdered By: Johana Landrum on 11-30-2024 MCH (RBC) [Entitic mass] 31.1 pg 27.0-32.0 [facility] Mean corpuscular hemoglobin concentration (MCHC) determinationOrdered By: Johana Landrum on 11-30-2024 MCHC (RBC) [Mass/Vol] 33.6 g/dL 32-36 [facility] Mean platelet volume determi nationOrdered By: Johana Landrum on 11-30-2024 Platelet mean volume (Bld) [Entitic vol] 10.1 fL 6.2-12.0 [facility] Monocyte percentageOrdered B y: Johana Landrum on 11-30-2024 Monocytes/100 WBC (Bld) 9.5 % 0-10 [facility] Neutrophil percentageOrdered By: Johana Landrum on 11-30-2024 Neutrophils/100 WBC (Bld) 63.0 % 47-70 [facility] Nucleated red blood cell per centageOrdered By: Johana Landrum on 11-30-2024 Nucleated RBC/100 WBC (Bld) [Ratio] 0 % 0-5 [facility] Platelet countOrdered By: Jake Landrum on 11-30-2024 Platelets (Bld) [#/Vol] 335 10*3/uL 150-450 [facility] Potassium (Unsp spec) [Mass/ Vol]Ordered By: Johana Landrum on 11-30-2024 Potassium [Moles/Vol] 3.7 mmol/L 3.3-5.1 [facility] Potassium measurement (mass/ volume)Ordered By: Johana Landrum on 11-30-2024 Potassium (Unsp spec) [Mass/Vol] 3.7 mmol/L 3.3-5.1 [facility] RBC Auto (Bld) [#/Vol]Ordere d By: Johana Landrum on 11-30-2024 RBC (Bld) [#/Vol] 3.05 10*6/uL Low 4.2-5.4 [facility] Serum creatinine measurement (mass/volume)Ordered By: Johana Landrum on 11-30-2024 Creatinine [Mass/Vol] 3.82 mg/dL High 0.70-1.20 [facility] Serum globulin measurementOr dered By: Johana Landrum on 11-30-2024 Globulin (S) [Mass/Vol] 2.4 g/dL 2.2-4.2 [facility] Serum glucose measurement (m ass/volume)Ordered By: Johana Landrum on 11-30-2024 Glucose [Mass/Vol] 93 mg/dL 70-99 [facility] Serum or plasma alanine mckeon otransferase (ALT) measurementOrdered By: Johana Landrum on 11-30-2024 ALT [Catalytic activity/Vol] 12 U/L <35 [facility] Serum or plasma albumin yamil urement (mass/volume)Ordered By: Johana Landrum on 11-30-2024 Albumin [Mass/Vol] 4.3 g/dL 3.4-4.8 [facility] Serum or plasma albumin/glob ulin mass ratioOrdered By: Johana Landrum on 11-30-2024 Albumin/Globulin [Mass ratio] 1.8 {ratio} 0.9-2.4 [facility] Serum or plasma alkaline anthony sphatase measurementOrdered By: Johana Landrum on 11-30-2024 ALP [Catalytic activity/Vol] 73 U/L 35-104 [facility] Serum or plasma calcium yamil urement (mass/volume)Ordered By: Johana Landrum on 11-30-2024 Calcium [Mass/Vol] 9.6 mg/dL 7.6-11.0 [facility] Serum or plasma urea nitroge n measurement (mass/volume)Ordered By: Johana Landrum on 11-30-2024 Urea nitrogen [Mass/Vol] 49 mg/dL High 4-19 [facility] Sodium levelOrdered By: Doris Landrum on 11-30-2024 Sodium [Moles/Vol] 140 mmol/L 133-145 [facility] Total proteinOrdered By: Daisy Landrum on 11-30-2024 Protein [Mass/Vol] 6.7 g/dL 5.9-8.4 [facility] White blood cell (WBC) count Ordered By: Johana Landrum on 11-30-2024 WBC (Bld) [#/Vol] 10.3 10*3/uL 4.4-11.0 [facility] Urine Cultureon 09-24-2024 URC Normal [facility] Comment on above: Performed By: #### L 400.0001, M100.2200 ####[facility] [address] [place], [place], [id number] Bilirubin Test strip Ql (U)O rdered By: Johana Landrum on 09-21-2024 Bilirubin Ql (U) Negative Negative [facility] Epithelial cells.squamous LM Ql (Urine sed)Ordered By: Johana Landrum on 09-21-2024 Epithelial cells.squamous LM.HPF (Urine sed) [#/Area] 0 /[HPF] 5-10 [facility] Glucose Ql (U)Ordered By: Jake Landrum on 09-21-2024 Glucose (U) [Mass/Vol] 50 mg/dL High Normal [facility] Ketones Test strip Ql (U)Ord ered By: Johana Landrum on 09-21-2024 Ketones Ql (U) Negative Negative [facility] Microscopic analysis of urin e for red blood cells (RBC)Ordered By: Johana Landrum on 09-21-2024 Urine RBC 0 SEEN /hpf 0-5 [facility] Mucus LM Ql (Urine sed)Order ed By: Johana Landrum on 09-21-2024 Mucus Ql (Urine sed) 0 SEEN /hpf [facility] Nitrite Test strip Ql (U)Ord ered By: Johana Landrum on 09-21-2024 Nitrite Ql (U) Negative Negative [facility] Protein Test strip Ql (U)Ord ered By: Johana Landrum on 09-21-2024 Protein Ql (U) 100 mg/dl High Negative [facility] Urinalysis, Completeon 09-21 EPI,SQUAMOUS 0-5 SEEN Normal 5-10 [facility] Comment on above: Order Comment: CLEAN CATCH Performed By: #### L 400.0001, M100.2200 ####[facility] [address] [place], [address] WBC 25-50 SEEN Normal 0-5 [facility] Comment on above: Order Comment: CLEAN CATCH Performed By: #### L 400.0001, M100.2200 ####[facility] [address] [place], [address] BACTERIA 0 SEEN Normal None Seen [facility] Comment on above: Order Comment: CLEAN CATCH Performed By: #### L 400.0001, M100.2200 ####[facility] [address] [place], [address] Mucus Ql (Urine sed) 0 SEEN Normal [facility] Comment on above: Order Comment: CLEAN CATCH Performed By: #### L 400.0001, M100.2200 ####[facility] [address] [place], [address] RBC 0 SEEN Normal 0-5 [facility] Comment on above: Order Comment: CLEAN CATCH Performed By: #### L 400.0001, M100.0 ####[facility] [address] [place], [address] Urine blood detectionOrdered By: Johana Landrum on 09-21-2024 Urine Occult Blood 25 /ul High Negative [facility] Urine clarityOrdered By: Daisy Landrum on 09-21-2024 Clarity (U) Sl. Cloudy Clear [facility] Urine color determinationOrd ered By: Johana Landrum on 09-21-2024 Color (U) Yellow Yellow [facility] Urine cultureOrdered By: Daisy Landrum on 09-21-2024 Bacteria identified Cx Nom (U) ESBL Escherichia coli Abnormal [facility] Urine leukocyte esterase det ection by dipstickOrdered By: Johana Landrum on 09-21-2024 Leukocyte esterase Test strip Ql (U) 500 /ul High Negative [facility] Urine pHOrdered By: Johana payton on 09-21-2024 pH (U) 6.5 [pH] 5.0 - 8.0 [facility] Urine sediment bacteria coun t by microscopy (number/high power field)Ordered By: Johana Landrum on 09-21-2024 Bacteria LM.HPF (Urine sed) [#/Area] 0 /[HPF] None Seen [facility] Urine specific gravity measu rementOrdered By: Johana Landrum on 09-21-2024 Specific gravity (U) [Rel density] 1.010 1.002-1.030 [facility] Urobilinogen Ql (U)Ordered B y: Johana Ortizkathyjimenez on 09-21-2024 Urine Urobilinogen Normal mg/dl Normal [facility] White blood cell countOrdere d By: Johana Ortizkathyjimenez on 09-21-2024 Urine WBC 25-50 SEEN /hpf 0-5 [facility] High density lipoprotein (HD L) measurementOrdered By: Johana Landrum on 08-31-2024 Cholesterol in HDL [Mass/Vol] 46 mg/dL >40 [facility] Comment on above: The drugs N-Acetylcy steine and Metamizole may falsely depress this assay. Reference Range HDL <40 mg/dL Low HDL Cholesterol HDL >or= 60 mg/dL High HDL Cholesterol Lipid Profileon 08-31-2024 Cholesterol [Mass/Vol] 127 mg/dL Normal 200 [facility] Comment on above: Order Comment: Result Comment: <200 mg/dL Desirable 200-240 mg/dL Borderline >240 mg/dL High Risk Performed By: #### L 500.4100 ####[facility] [address] [place], [address] Cholesterol in HDL [Mass/Vol] 46 mg/dL Normal [facility] Comment on above: Order Comment: Result Comment: The drugs N-Acetylcysteine and Metamizole may falselydepress this assay. Reference Range HDL <40 mg/dL Low HDL Cholesterol HDL >or= 60 mg/dL High HDL Cholesterol Performed By: #### L 500.4100 ####[facility] [address] [place], [address] Cholesterol in LDL [Mass/Vol] 33 mg/dL Normal 0-130 [facility] Comment on above: Order Comment: Performed By: #### L 500.4100 ####[facility] [address] [place], [address] Cholesterol in VLDL [Mass/Vol] 48 mg/dL High 5-40 [facility] Comment on above: Order Comment: Performed By: #### L 500.4100 ####[facility] [address] [place], [place], [address] Triglyceride [Mass/Vol] 241 mg/dL High [facility] Comment on above: Order Comment: 517- Result Comment: The drugs N-Acetylcysteine and Metamizole may falselydepress this assay.Serum Triglycerides Reference Interval Normal <150 mg/dL Borderline high 150 - 199 mg/dL High 200 - 499 mg/dL Very High > or = 500 mg/dL Performed By: #### L 500.4100 ####[facility] [address] [place], [place], [address] Low density lipoprotein (LDL ) cholesterol measurementOrdered By: Johana Landrum on 08-31-2024 Cholesterol in LDL [Mass/Vol] 33 mg/dL 0-130 [facility] Serum or plasma cholesterol measurement (mass/volume)Ordered By: Johana Landrum on 08-31-2024 Cholesterol [Mass/Vol] 127 mg/dL <200 [facility] Comment on above: <200 mg/dL Desirable 200-240 mg/dL Borderline >240 mg/dL High Risk Triglycerides measurementOrd ered By: Johana Landrum on 08-31-2024 Triglyceride [Mass/Vol] 241 mg/dL High <199 [facility] Comment on above: The drugs N-Acetylcy steine and Metamizole may falsely depress this assay.Serum Triglycerides Reference Interval Normal <150 mg/dL Borderline high 150 - 199 mg/dL High 200 - 499 mg/dL Very High > or = 500 mg/dL Very low density lipoprotein (VLDL) cholesterol measurementOrdered By: Johana Landrum on 08-31-2024 VLDL Cholesterol 48 mg/dL High 5-40 [facility] Automated blood erythrocyte countOrdered By: [facility] on 08-27-2024 RBC (Bld) [#/Vol] 3.24 10*6/uL Low 4.2-5.4 [facility] Comment on above: Order Comment: 517. Performed By: #### L 500.2500, L100.0500 ####[facility] [address] [place], [address] Automated blood hematocrit ( percentage)Ordered By: [facility] on 08-27-2024 Hematocrit (Bld) [Volume fraction] 29.9 % Low 37-47 [facility] Comment on above: Order Comment: 517.1 Performed By: #### L 500.2500, L100.0500 ####[facility] [address] [place], [address] Basic Metabolic Profile (BMP )on 08-27-2024 BUN/CRE 17.9 RATIO Normal 10-20 [facility] Comment on above: Order Comment: 517.1 Performed By: #### L 500.2500, L100.0500 ####[facility] [address] [place], [address] CA,Total 8.9 mg/dL Normal 8.5-10.1 [facility] Comment on above: Order Comment: 517.1 Performed By: #### L 500.2500, L100.0500 ####[facility] [address] [place], [address] EST GFR - AA 17 mL/min Low >60 [facility] Comment on above: Order Comment: 517.1 Result Comment: Afri can Brazilian GFR Calc Performed By: #### L 500.2500, L100.0500 ####[facility] [address] [place], [address] GAP 10 Normal 5-15 [facility] Comment on above: Order Comment: 517.1 Performed By: #### L 500.2500, L100.0500 ####[facility] [address] [place], [address] GFR/1.73 sq M.predicted among non-blacks MDRD (S/P/Bld) [Vol rate/Area] 14 mL/min/{1.73_m2} Low >60 [facility] Comment on above: Order Comment: 517.1 Result Comment: Non- GFR Calc Performed By: #### L 500.2500, L100.0500 ####[facility] [address] [place], [address] Blood urea nitrogen (BUN)/cr eatinine ratioOrdered By: [facility] on 08-27-2024 Urea nitrogen/Creatinine [Mass ratio] 17.9 mg/mg 10-20 [facility] CBC-Complete Blood Cnt No Di ffon 08-27-2024 RDW SD 46.5 fl High 35.1-43.9 [facility] Comment on above: Order Comment: 517.1 Performed By: #### L 500.2500, L100.0500 ####[facility] [address] [place], [place], [address] Carbon dioxide measurementOr dered By: [facility] on 08-27-2024 CO2 [Moles/Vol] 22.0 mmol/L Normal 21.0-32.0 [facility] Comment on above: Order Comment: 517.1 Performed By: #### L 500.2500, L100.0500 ####[facility] [address] [place], [address] Chloride measurementOrdered By: [facility] on 08-27-2024 Chloride [Moles/Vol] 106 mmol/L Normal 98-107 [facility] Comment on above: Order Comment: 517.1 Performed By: #### L 500.2500, L100.0500 ####[facility] [address] [place], [address] Erythrocyte distribution wid th (RBC) [Ratio]Ordered By: [facility] on 08-27-2024 Erythrocyte distribution width (RBC) [Entitic vol] 46.5 fL High 35.1-43.9 [facility] Erythrocyte distribution wid th ratioOrdered By: [facility] on 08-27-2024 Erythrocyte distribution width (RBC) [Ratio] 13.7 % Normal 11.6-14.6 [facility] Comment on above: Order Comment: 517.1 Performed By: #### L 500.2500, L100.0500 ####[facility] [address] [place], [address] Estimated glomerular filtrat ion rate (GFR) AmericanOrdered By: [facility] on 08-27-2024 Estimated GFR (MDRD) Amer 17 mL/min Low >60 [facility] Comment on above: GFR Calc Glomerular filtration rate ( GFR) estimationOrdered By: [facility] on 08-27-2024 Estimated GFR (MDRD) Non-Af Amer 14 mL/min Low >60 [facility] Comment on above: Non- GFR Calc Glucose measurementOrdered B y: [facility] on 08-27-2024 Glucose [Mass/Vol] 122 mg/dL High 74-106 [facility] Comment on above: Fasting Glucose resu lt from 100 to 125 mg/dL suggests IMPAIRED HOMEOSTASIS per A.D.A. criteria. Order Comment: 517.1 Result Comment: Fast ing Glucose result from 100 to 125 mg/dLsuggests IMPAIRED HOMEOSTASIS per A.D.A. criteria. Performed By: #### L 500.2500, L100.0500 ####[facility] [address] [place], [address] Hemoglobin measurementOrdere d By: [facility] on 08-27-2024 Hemoglobin (Bld) [Mass/Vol] 9.7 g/dL Low 12.0-15.0 [facility] Comment on above: Order Comment: 517.1 Performed By: #### L 500.2500, L100.0500 ####[facility] [address] [place], [address] MCV (mean corpuscular volume ) determinationOrdered By: [facility] on 08-27-2024 MCV (RBC) [Entitic vol] 92.3 fL Normal 81-99 [facility] Comment on above: Order Comment: 517.1 Performed By: #### L 500.2500, L100.0500 ####[facility] [address] [place], [address] Mean corpuscular hemoglobin (MCH) determinationOrdered By: [facility] on 08-27-2024 MCH (RBC) [Entitic mass] 29.9 pg Normal 27.0-32.0 [facility] Comment on above: Order Comment: 517.1 Performed By: #### L 500.2500, L100.0500 ####[facility] [address] [place], [address] Mean corpuscular hemoglobin concentration (MCHC) determinationOrdered By: [facility] on 08-27-2024 MCHC (RBC) [Mass/Vol] 32.4 g/dL Normal 32-36 [facility] Comment on above: Order Comment: 517.1 Performed By: #### L 500.2500, L100.0500 ####[facility] [address] [place], [address] Mean platelet volume determi nationOrdered By: [facility] on 08-27-2024 Platelet mean volume (Bld) [Entitic vol] 10.9 fL Normal 6.2-12.0 [facility] Comment on above: Order Comment: 517.1 Performed By: #### L 500.2500, L100.0500 ####[facility] [address] [place], [address] Platelet countOrdered By: [facility] on 08-27-2024 Platelets (Bld) [#/Vol] 292 10*3/uL Normal 150-450 [facility] Comment on above: Order Comment: 517.1 Performed By: #### L 500.2500, L100.0500 ####[facility] [address] [place], [address] Potassium measurementOrdered By: [facility] on 08-27-2024 Potassium [Moles/Vol] 3.5 mmol/L Normal 3.5-5.1 [facility] Comment on above: Order Comment: 517.1 Performed By: #### L 500.2500, L100.0500 ####[facility] [address] [place], [address] Protein+Creatinine Ratio,Uri neon 08-27-2024 PROT:CRE RATIO 3233 mg/g CRE High 0-200 [facility] Comment on above: Performed By: #### L 501.0900 ####[facility] [address] [place], [address] Protein (U) [Mass/Vol] 131.6 mg/dL High <11.9 [facility] Comment on above: Performed By: #### L 501.0900 ####[facility] [address] [place], [address] UR CREAT 40.70 mg/dL Normal NO RANGE EST. [facility] Comment on above: Performed By: #### L 501.0900 ####[facility] [address] [place], [address] Protein/Creatinine (U) [Mass ratio]Ordered By: [facility] on 08-27-2024 Urine Protein/Creatinine Ratio 3233 mg/g CRE High 0-200 [facility] Random urine protein measure mentOrdered By: [facility] on 08-27-2024 Protein (U) [Mass/Vol] 131.6 mg/dL High 0.0-11.8 [facility] Serum anion gap measurementO rdered By: [facility] on 08-27-2024 Anion gap [Moles/Vol] 10 mmol/L 5-15 [facility] Serum or plasma calcium yamil urement (mass/volume)Ordered By: [facility] on 08-27-2024 Calcium [Mass/Vol] 8.9 mg/dL 8.5-10.1 [facility] Serum or plasma creatinine m easurement (mass/volume)Ordered By: [facility] on 08-27-2024 Creatinine [Mass/Vol] 3.47 mg/dL High 0.55-1.02 [facility] Comment on above: The validity of the calculated GFR & GFRAA in patients over 70 years has not been determined. Clinical correlation is essential. Order Comment: 517.1 Result Comment: The validity of the calculated GFR GFRAA in patients over70 years has not been determined. Clinical correlation isessential. Performed By: #### L 500.2500, L100.0500 ####[facility] [address] [place], [address] Serum or plasma urea nitroge n measurement (mass/volume)Ordered By: [facility] on 08-27-2024 Urea nitrogen [Mass/Vol] 62 mg/dL High 7-18 [facility] Comment on above: Order Comment: 517.1 Performed By: #### L 500.2500, L100.0500 ####[facility] [address] [place], [address] Sodium levelOrdered By: [facility] on 08-27-2024 Sodium [Moles/Vol] 139 mmol/L Normal 136-145 [facility] Comment on above: Order Comment: 517.1 Performed By: #### L 500.2500, L100.0500 ####[facility] [address] [place], [address] Urine creatinine measurement (mass/volume)Ordered By: [facility] on 08-27-2024 Creatinine (U) [Mass/Vol] 40.70 mg/dL NO RANGE EST. [facility] White blood cell (WBC) count Ordered By: [facility] on 08-27-2024 WBC (Bld) [#/Vol] 11.3 10*3/uL High 4.4-11.0 [facility] Comment on above: Order Comment: 517.1 Performed By: #### L 500.2500, L100.0500 ####[facility] [address] [place], [address] Miscellaneous Lab Procedureo n 08-06-2024 MISC LAB TEST Normal [facility] Comment on above: Order Comment: [id number]/ CYSTATIN C/ SERUM/ [id number]/ CYSTATIN C/ SERUM/ RT Result Comment: TEST RESULTS LIMITSCystatin C 3.85 High mg/L 0.78-1.15 ___ [facility] ORIGINAL REPORT ON FILE IN LAB CONTAINS ADDITIONAL TEST SITE INFORMATION. Performed By: #### L 801.1541 ####[facility] [address] [place], [address] 12 Lead EKGon 07-24-2024 12 Lead EKG Normal [facility] Basic Metabolic Profile (BMP )on 07-24-2024 BUN/CRE 19.3 RATIO Normal 10-20 [facility] Comment on above: Order Comment: 1Y Performed By: #### L 500.2500, L501.5425, L100.0100 ####[facility] [address] [place], [address] CA,Total 9.3 mg/dL Normal 8.5-10.1 [facility] Comment on above: Order Comment: 1Y Performed By: #### L 500.2500, L501.5425, L100.0100 ####[facility] [address] [place], [address] Chloride [Moles/Vol] 110 mmol/L High 98-107 [facility] Comment on above: Order Comment: 1Y Performed By: #### L 500.2500, L501.5425, L100.0100 ####[facility] [address] [place], [address] CO2 [Moles/Vol] 21.0 mmol/L Normal 21.0-32.0 [facility] Comment on above: Order Comment: 1Y Performed By: #### L 500.2500, L501.5425, L100.0100 ####[facility] [address] [place], [address] Creatinine [Mass/Vol] 3.58 mg/dL High 0.55-1.02 [facility] Comment on above: Order Comment: 1Y Result Comment: The validity of the calculated GFR GFRAA in patients over70 years has not been determined. Clinical correlation isessential. Performed By: #### L 500.2500, L501.5425, L100.0100 ####[facility] [address] [place], [address] ECRCL 13.16 ml/min Normal [facility] Comment on above: Order Comment: 1Y Performed By: #### L 500.2500, L501.5425, L100.0100 ####[facility] [address] [place], [address] EST GFR - AA 16 mL/min Low >60 [facility] Comment on above: Order Comment: 1Y Result Comment: Afri can Brazilian GFR Calc Performed By: #### L 500.2500, L501.5425, L100.0100 ####[facility] [address] [place], [address] GAP 9 Normal 5-15 [facility] Comment on above: Order Comment: 1Y Performed By: #### L 500.2500, L501.5425, L100.0100 ####[facility] [address] [place], [address] GFR/1.73 sq M.predicted among non-blacks MDRD (S/P/Bld) [Vol rate/Area] 13 mL/min/{1.73_m2} Low >60 [facility] Comment on above: Order Comment: 1Y Result Comment: Non- GFR Calc Performed By: #### L 500.2500, L501.5425, L100.0100 ####[facility] [address] [place], [address] Glucose [Mass/Vol] 103 mg/dL Normal 74-106 [facility] Comment on above: Order Comment: 1Y Result Comment: Fast ing Glucose result from 100 to 125 mg/dLsuggests IMPAIRED HOMEOSTASIS per A.D.A. criteria. Performed By: #### L 500.2500, L501.5425, L100.0100 ####[facility] [address] [place], [address] Potassium [Moles/Vol] 3.6 mmol/L Normal 3.5-5.1 [facility] Comment on above: Order Comment: 1Y Performed By: #### L 500.2500, L501.5425, L100.0100 ####[facility] [address] [place], [address] Sodium [Moles/Vol] 140 mmol/L Normal 136-145 [facility] Comment on above: Order Comment: 1Y Performed By: #### L 500.2500, L501.5425, L100.0100 ####[facility] [address] [place], [address] Urea nitrogen [Mass/Vol] 69 mg/dL High 7-18 [facility] Comment on above: Order Comment: 1Y Performed By: #### L 500.2500, L501.5425, L100.0100 ####[facility] [address] [place], [address] CBC W/Diff, Automatedon 11-2 Absolute Lymph 2.05 X10 3/uL Normal 0.83-4.51 [facility] Comment on above: Performed By: #### L 500.2500, L501.5425, L100.0100 ####[facility] [address] [place], [address] Absolute Neut 9.9 X10 3/uL High 2.0-7.7 [facility] Comment on above: Performed By: #### L 500.2500, L501.5425, L100.0100 ####[facility] [address] [place], [address] Basophils/100 WBC (Bld) 0.4 % Normal 0-1 [facility] Comment on above: Performed By: #### L 500.2500, L501.5425, L100.0100 ####[facility] [address] [place], [address] Eosinophils/100 WBC (Bld) 1.4 % Normal 0-5 [facility] Comment on above: Performed By: #### L 500.2500, L501.5425, L100.0100 ####[facility] [address] [place], [address] Erythrocyte distribution width (RBC) [Ratio] 14.1 % Normal 11.6-14.6 [facility] Comment on above: Performed By: #### L 500.2500, L501.5425, L100.0100 ####[facility] [address] [place], [address] Hematocrit (Bld) [Volume fraction] 32.3 % Low 37-47 [facility] Comment on above: Performed By: #### L 500.2500, L501.5425, L100.0100 ####[facility] [address] [place], [address] Hemoglobin (Bld) [Mass/Vol] 9.7 g/dL Low 12.0-15.0 [facility] Comment on above: Performed By: #### L 500.2500, L501.5425, L100.0100 ####[facility] [address] [place], [address] IG% 0.800 Normal 0.0-0.9 [facility] Comment on above: Result Comment: IG% - Immature Granulocytes (promyelocytes, myelocytes andmetamyelocytes) > 1% indicates that a LEFT SHIFT is Present. Performed By: #### L 500.2500, L501.5425, L100.0100 ####[facility] [address] [place], [address] Lymphocytes/100 WBC (Bld) 15.4 % Low 19-41 [facility] Comment on above: Performed By: #### L 500.2500, L501.5425, L100.0100 ####[facility] [address] [place], [address] MCH (RBC) [Entitic mass] 29.3 pg Normal 27.0-32.0 [facility] Comment on above: Performed By: #### L 500.2500, L501.5425, L100.0100 ####[facility] [address] [place], [address] MCHC (RBC) [Mass/Vol] 30.0 g/dL Low 32-36 [facility] Comment on above: Performed By: #### L 500.2500, L501.5425, L100.0100 ####[facility] [address] [place], [address] MCV (RBC) [Entitic vol] 97.6 fL Normal 81-99 [facility] Comment on above: Performed By: #### L 500.2500, L501.5425, L100.0100 ####[facility] [address] [place], [address] Monocytes/100 WBC (Bld) 7.7 % Normal 0-10 [facility] Comment on above: Performed By: #### L 500.2500, L501.5425, L100.0100 ####[facility] [address] [place], [address] Neutrophils/100 WBC (Bld) 74.3 % High 47-70 [facility] Comment on above: Performed By: #### L 500.2500, L501.5425, L100.0100 ####[facility] [address] [place], [address] Nucleated RBC (Bld) [#/Vol] 0 10*3/uL Normal 0-5 [facility] Comment on above: Performed By: #### L 500.2500, L501.5425, L100.0100 ####[facility] [address] [place], [address] Platelet mean volume (Bld) [Entitic vol] 11.1 fL Normal 6.2-12.0 [facility] Comment on above: Performed By: #### L 500.2500, L501.5425, L100.0100 ####[facility] [address] [place], [address] Platelets (Bld) [#/Vol] 250 10*3/uL Normal 150-450 [facility] Comment on above: Performed By: #### L 500.2500, L501.5425, L100.0100 ####[facility] [address] [place], [address] RBC (Bld) [#/Vol] 3.31 10*6/uL Low 4.2-5.4 [facility] Comment on above: Performed By: #### L 500.2500, L501.5425, L100.0100 ####[facility] [address] [place], [address] RDW SD 50.5 fl High 35.1-43.9 [facility] Comment on above: Performed By: #### L 500.2500, L501.5425, L100.0100 ####[facility] [address] [place], [address] WBC (Bld) [#/Vol] 13.3 10*3/uL High 4.4-11.0 [facility] Comment on above: Performed By: #### L 500.2500, L501.5425, L100.0100 ####[facility] [address] [place], [address] Chest PA and Lateralon 07-24 Chest PA and Lateral Normal [facility] Emergency Department Summary on 07-24-2024 Emergency Department Summary Normal [facility] L501.4020on 07-24-2024 TROPONIN-I HS 17 pg/mL Normal 3.0-54.0 [facility] Comment on above: Result Comment: Plea se Note: New Test Units and Gender Specific Reference Ranges. For more information see Policy Stat Procedure [place] High Sensitivity Troponin (TNIH) and attachments. Performed By: #### L 501.4020 ####[facility] [address] [place], [address] L501.5425on 07-24-2024 TROPONIN-I HS 15 pg/mL Normal 3.0-54.0 [facility] Comment on above: Order Comment: 1Y Result Comment: Plea se Note: New Test Units and Gender Specific Reference Ranges. For more information see Policy Stat Procedure [place] High Sensitivity Troponin (TNIH) and attachments. Performed By: #### L 500.2500, L501.5425, L100.0100 ####[facility] [address] [place], [address] Basic Metabolic Profile (BMP )on 07-23-2024 BUN Normal 7-18 [facility] Comment on above: Result Comment: Canc elled via OM: Order cancelled - Patient discharged Performed By: #### L 500.2500, L100.0100 ####[facility] [address] [place], [address] BUN/CRE Normal 10-20 [facility] Comment on above: Result Comment: Canc elled via OM: Order cancelled - Patient discharged Performed By: #### L 500.2500, L100.0100 ####[facility] [address] [place], [address] CA,Total Normal 8.5-10.1 [facility] Comment on above: Result Comment: Canc elled via OM: Order cancelled - Patient discharged Performed By: #### L 500.2500, L100.0100 ####[facility] [address] [place], [address] CL Normal 98-107 [facility] Comment on above: Result Comment: Canc elled via OM: Order cancelled - Patient discharged Performed By: #### L 500.2500, L100.0100 ####[facility] [address] [place], [address] CO2 Normal 21.0-32.0 [facility] Comment on above: Result Comment: Canc elled via OM: Order cancelled - Patient discharged Performed By: #### L 500.2500, L100.0100 ####[facility] [address] [place], [address] CREAT,SERUM Normal 0.55-1.02 [facility] Comment on above: Result Comment: Canc elled via OM: Order cancelled - Patient discharged Performed By: #### L 500.2500, L100.0100 ####[facility] [address] [place], [address] EST GFR Normal >60 [facility] Comment on above: Result Comment: Canc elled via OM: Order cancelled - Patient discharged Performed By: #### L 500.2500, L100.0100 ####[facility] [address] [place], [address] EST GFR - AA Normal >60 [facility] Comment on above: Result Comment: Canc elled via OM: Order cancelled - Patient discharged Performed By: #### L 500.2500, L100.0100 ####[facility] [address] [place], [address] GAP Normal 5-15 [facility] Comment on above: Result Comment: Canc elled via OM: Order cancelled - Patient discharged Performed By: #### L 500.2500, L100.0100 ####[facility] [address] [place], [address] GLU Normal 74-106 [facility] Comment on above: Result Comment: Canc elled via OM: Order cancelled - Patient discharged Performed By: #### L 500.2500, L100.0100 ####[facility] [address] [place], [address] Potassium Normal 3.5-5.1 [facility] Comment on above: Result Comment: Canc elled via OM: Order cancelled - Patient discharged Performed By: #### L 500.2500, L100.0100 ####[facility] [address] [place], [address] Basic Metabolic Profile (BMP) Normal 136-145 [facility] Comment on above: Result Comment: Canc elled via OM: Order cancelled - Patient discharged Performed By: #### L 500.2500, L100.0100 ####[facility] [address] [place], [address] CBC W/Diff, Automatedon 11-2 Absolute Neut Normal 2.0-7.7 [facility] Comment on above: Result Comment: Canc elled via OM: Order cancelled - Patient discharged Performed By: #### L 500.2500, L100.0100 ####[facility] [address] [place], [address] HCT Normal 37-47 [facility] Comment on above: Result Comment: Canc elled via OM: Order cancelled - Patient discharged Performed By: #### L 500.2500, L100.0100 ####[facility] [address] [place], [address] HGB Normal 12.0-15.0 [facility] Comment on above: Result Comment: Canc elled via OM: Order cancelled - Patient discharged Performed By: #### L 500.2500, L100.0100 ####[facility] [address] [place], [address] MCH Normal 27.0-32.0 [facility] Comment on above: Result Comment: Canc elled via OM: Order cancelled - Patient discharged Performed By: #### L 500.2500, L100.0100 ####[facility] [address] [place], [address] MCHC Normal 32-36 [facility] Comment on above: Result Comment: Canc elled via OM: Order cancelled - Patient discharged Performed By: #### L 500.2500, L100.0100 ####[facility] [address] [place], [address] MCV Normal 81-99 [facility] Comment on above: Result Comment: Canc elled via OM: Order cancelled - Patient discharged Performed By: #### L 500.2500, L100.0100 ####[facility] [address] [place], [address] NEUT% Normal 47-70 [facility] Comment on above: Result Comment: Canc elled via OM: Order cancelled - Patient discharged Performed By: #### L 500.2500, L100.0100 ####[facility] [address] [place], [address] PLT Normal 150-450 [facility] Comment on above: Result Comment: Canc elled via OM: Order cancelled - Patient discharged Performed By: #### L 500.2500, L100.0100 ####[facility] [address] [place], [address] RBC Normal 4.2-5.4 [facility] Comment on above: Result Comment: Canc elled via OM: Order cancelled - Patient discharged Performed By: #### L 500.2500, L100.0100 ####[facility] [address] [place], [address] RDW CV Normal 11.6-14.6 [facility] Comment on above: Result Comment: Canc elled via OM: Order cancelled - Patient discharged Performed By: #### L 500.2500, L100.0100 ####[facility] [address] [place], [address] RDW SD Normal 35.1-43.9 [facility] Comment on above: Result Comment: Canc elled via OM: Order cancelled - Patient discharged Performed By: #### L 500.2500, L100.0100 ####[facility] [address] [place], [address] WBC Normal 4.4-11.0 [facility] Comment on above: Result Comment: Canc elled via OM: Order cancelled - Patient discharged Performed By: #### L 500.2500, L100.0100 ####[facility] [address] [place], [address] CBC W/Diff, Automatedon 11-2 0-2024 Absolute Lymph 1.91 X10 3/uL Normal 0.83-4.51 [facility] Comment on above: Performed By: #### L 100.0100 ####[facility] [address] [place], [address] Absolute Neut 6.9 X10 3/uL Normal 2.0-7.7 [facility] Comment on above: Performed By: #### L 100.0100 ####[facility] [address] [place], [address] Basophils/100 WBC (Bld) 0.7 % Normal 0-1 [facility] Comment on above: Performed By: #### L 100.0100 ####[facility] [address] [place], [address] Eosinophils/100 WBC (Bld) 3.9 % Normal 0-5 [facility] Comment on above: Performed By: #### L 100.0100 ####[facility] [address] [place], [address] Erythrocyte distribution width (RBC) [Ratio] 14.4 % Normal 11.6-14.6 [facility] Comment on above: Performed By: #### L 100.0100 ####[facility] [address] [place], [address] Hematocrit (Bld) [Volume fraction] 30.3 % Low 37-47 [facility] Comment on above: Performed By: #### L 100.0100 ####[facility] [address] [place], [address] Hemoglobin (Bld) [Mass/Vol] 9.3 g/dL Low 12.0-15.0 [facility] Comment on above: Performed By: #### L 100.0100 ####[facility] [address] [place], [address] IG% 0.700 Normal 0.0-0.9 [facility] Comment on above: Result Comment: IG% - Immature Granulocytes (promyelocytes, myelocytes andmetamyelocytes) > 1% indicates that a LEFT SHIFT is Present. Performed By: #### L 100.0100 ####[facility] [address] [place], [address] Lymphocytes/100 WBC (Bld) 18.8 % Low 19-41 [facility] Comment on above: Performed By: #### L 100.0100 ####[facility] [address] [place], [address] MCH (RBC) [Entitic mass] 29.4 pg Normal 27.0-32.0 [facility] Comment on above: Performed By: #### L 100.0100 ####[facility] [address] [place], [address] MCHC (RBC) [Mass/Vol] 30.7 g/dL Low 32-36 [facility] Comment on above: Performed By: #### L 100.0100 ####[facility] [address] [place], [address] MCV (RBC) [Entitic vol] 95.9 fL Normal 81-99 [facility] Comment on above: Performed By: #### L 100.0100 ####[facility] [address] [place], [address] Monocytes/100 WBC (Bld) 7.9 % Normal 0-10 [facility] Comment on above: Performed By: #### L 100.0100 ####[facility] [address] [place], [address] Neutrophils/100 WBC (Bld) 68.0 % Normal 47-70 [facility] Comment on above: Performed By: #### L 100.0100 ####[facility] [address] [place], [address] Nucleated RBC (Bld) [#/Vol] 0 10*3/uL Normal 0-5 [facility] Comment on above: Performed By: #### L 100.0100 ####[facility] [address] [place], [address] Platelet mean volume (Bld) [Entitic vol] 10.7 fL Normal 6.2-12.0 [facility] Comment on above: Performed By: #### L 100.0100 ####[facility] [address] [place], [address] Platelets (Bld) [#/Vol] 260 10*3/uL Normal 150-450 [facility] Comment on above: Performed By: #### L 100.0100 ####[facility] [address] [place], [address] RBC (Bld) [#/Vol] 3.16 10*6/uL Low 4.2-5.4 [facility] Comment on above: Performed By: #### L 100.0100 ####[facility] [address] [place], [address] RDW SD 50.7 fl High 35.1-43.9 [facility] Comment on above: Performed By: #### L 100.0100 ####[facility] [address] [place], [address] WBC (Bld) [#/Vol] 10.2 10*3/uL Normal 4.4-11.0 [facility] Comment on above: Performed By: #### L 100.0100 ####[facility] [address] [place], [address] Cerebral Spinal Fluid Cultur mojgan 07-22-2024 CSFC No growth in 72 hours. Normal [facility] Comment on above: Performed By: #### M 100.2300, M100.2000, L350.1000, L501.1600, L200.0100, L501.0400 ####[facility] [address] [place], [address] Renal Profileon 07-22-2024 Albumin [Mass/Vol] 2.9 g/dL Low 3.2-5.0 [facility] Comment on above: Performed By: #### L 500.3600 ####[facility] [address] [place], [address] BUN/CRE 22.4 RATIO High -20 [facility] Comment on above: Performed By: #### L 500.3600 ####[facility] [address] [place], [address] CA,Total 8.6 mg/dL Normal 8.5-10.1 [facility] Comment on above: Performed By: #### L 500.3600 ####[facility] [address] [place], [address] Chloride [Moles/Vol] 114 mmol/L High 98-107 [facility] Comment on above: Performed By: #### L 500.3600 ####[facility] [address] [place], [address] CO2 [Moles/Vol] 19.0 mmol/L Low 21.0-32.0 [facility] Comment on above: Performed By: #### L 500.3600 ####[facility] [address] [place], [address] Creatinine [Mass/Vol] 3.84 mg/dL High 0.55-1.02 [facility] Comment on above: Result Comment: The validity of the calculated GFR GFRAA in patients over70 years has not been determined. Clinical correlation isessential. Performed By: #### L 500.3600 ####[facility] [address] [place], [address] ECRCL 12.18 ml/min Normal [facility] Comment on above: Performed By: #### L 500.3600 ####[facility] [address] [place], [address] EST GFR - AA 15 mL/min Low >60 [facility] Comment on above: Result Comment: Afri can Brazilian GFR Calc Performed By: #### L 500.3600 ####[facility] [address] [place], [address] GFR/1.73 sq M.predicted among non-blacks MDRD (S/P/Bld) [Vol rate/Area] 12 mL/min/{1.73_m2} Low >60 [facility] Comment on above: Result Comment: Non- GFR Calc Performed By: #### L 500.3600 ####[facility] [address] [place], [address] Glucose [Mass/Vol] 100 mg/dL Normal 74-106 [facility] Comment on above: Result Comment: Fast ing Glucose result from 100 to 125 mg/dLsuggests IMPAIRED HOMEOSTASIS per A.D.A. criteria. Performed By: #### L 500.3600 ####[facility] [address] [place], [address] Phosphate [Mass/Vol] 6.2 mg/dL High 2.5-4.9 [facility] Comment on above: Performed By: #### L 500.3600 ####[facility] [address] [place], [address] Potassium [Moles/Vol] 3.9 mmol/L Normal 3.5-5.1 [facility] Comment on above: Performed By: #### L 500.3600 ####[facility] [address] [place], [address] Sodium [Moles/Vol] 142 mmol/L Normal 136-145 [facility] Comment on above: Performed By: #### L 500.3600 ####[facility] [address] [place], [address] Urea nitrogen [Mass/Vol] 86 mg/dL High 7-18 [facility] Comment on above: Performed By: #### L 500.3600 ####[facility] [address] [place], [address] Spinal Fluid Cell Count+Diff on 07-22-2024 PATH REV May follow Normal [facility] Comment on above: Order Comment: Speci men Source? spinal fluid Result Comment: NO E VIDENCE OF MALIGNANCY.KATHLEEN KRAFT MD 07/22/2024 AMENDED REPORT 07/22/2430 PATH REV previously reported as: May follow Performed By: #### M 100.2300, M100.2000, L350.1000, L501.1600, L200.0100, L501.0400 ####[facility] [address] [place], [address] Consultation - Nephrologyon 07-21-2024 Consultation - Nephrology Normal [facility] Renal Profileon 07-21-2024 Albumin [Mass/Vol] 3.1 g/dL Low 3.2-5.0 [facility] Comment on above: Performed By: #### L 500.3600 ####[facility] [address] [place], [address] BUN/CRE 21.4 RATIO High 10-20 [facility] Comment on above: Performed By: #### L 500.3600 ####[facility] [address] [place], [address] CA,Total 8.7 mg/dL Normal 8.5-10.1 [facility] Comment on above: Performed By: #### L 500.3600 ####[facility] [address] [place], [address] Chloride [Moles/Vol] 110 mmol/L High 98-107 [facility] Comment on above: Performed By: #### L 500.3600 ####[facility] [address] [place], [address] CO2 [Moles/Vol] 17.0 mmol/L Low 21.0-32.0 [facility] Comment on above: Performed By: #### L 500.3600 ####[facility] [address] [place], [address] Creatinine [Mass/Vol] 4.21 mg/dL High 0.55-1.02 [facility] Comment on above: Result Comment: The validity of the calculated GFR GFRAA in patients over70 years has not been determined. Clinical correlation isessential. Performed By: #### L 500.3600 ####[facility] [address] [place], [address] ECRCL 11.11 ml/min Normal [facility] Comment on above: Performed By: #### L 500.3600 ####[facility] [address] [place], [address] EST GFR - AA 13 mL/min Low >60 [facility] Comment on above: Result Comment: Afri can Brazilian GFR Calc Performed By: #### L 500.3600 ####[facility] [address] [place], [address] GFR/1.73 sq M.predicted among non-blacks MDRD (S/P/Bld) [Vol rate/Area] 11 mL/min/{1.73_m2} Low >60 [facility] Comment on above: Result Comment: Non- GFR Calc Performed By: #### L 500.3600 ####[facility] [address] [place], [address] Glucose [Mass/Vol] 191 mg/dL High 74-106 [facility] Comment on above: Result Comment: Fast ing Glucose result greater than or equal to 126 mg/dLsuggests DIABETES MELLITUS per A.D.A. criteria. Performed By: #### L 500.3600 ####[facility] [address] [place], [address] Phosphate [Mass/Vol] 5.7 mg/dL High 2.5-4.9 [facility] Comment on above: Performed By: #### L 500.3600 ####[facility] [address] [place], [address] Potassium [Moles/Vol] 3.8 mmol/L Normal 3.5-5.1 [facility] Comment on above: Performed By: #### L 500.3600 ####[facility] [address] [place], [address] Sodium [Moles/Vol] 138 mmol/L Normal 136-145 [facility] Comment on above: Performed By: #### L 500.3600 ####[facility] [address] [place], [address] Urea nitrogen [Mass/Vol] 90 mg/dL High 7-18 [facility] Comment on above: Performed By: #### L 500.3600 ####[facility] [address] [place], [address] Comprehensive Metabolic Prof ilon 07-20-2024 Albumin [Mass/Vol] 2.9 g/dL Low 3.2-5.0 [facility] Comment on above: Performed By: #### L 500.4050 ####[facility] [address] [place], [address] Albumin/Globulin [Mass ratio] 1.0 {ratio} Normal 0.9-2.4 [facility] Comment on above: Performed By: #### L 500.4050 ####[facility] [address] [place], [address] ALK P 83 U/L Normal 45-117 [facility] Comment on above: Performed By: #### L 500.4050 ####[facility] [address] [place], [address] ALT [Catalytic activity/Vol] 15 U/L Normal 13-56 [facility] Comment on above: Performed By: #### L 500.4050 ####[facility] [address] [place], [address] AST [Catalytic activity/Vol] 7 U/L Low 15-37 [facility] Comment on above: Performed By: #### L 500.4050 ####[facility] [address] [place], [address] Bilirubin [Mass/Vol] 0.30 mg/dL Normal 0.20-1.00 [facility] Comment on above: Result Comment: For patients on eltrombopag therapy, use of Dimension [place] TBIL is not recommended. Performed By: #### L 500.4050 ####[facility] [address] [place], [address] BUN/CRE 19.2 RATIO Normal 10-20 [facility] Comment on above: Performed By: #### L 500.4050 ####[facility] [address] [place], [address] CA,Total 8.9 mg/dL Normal 8.5-10.1 [facility] Comment on above: Performed By: #### L 500.4050 ####[facility] [address] [place], [address] Chloride [Moles/Vol] 110 mmol/L High 98-107 [facility] Comment on above: Performed By: #### L 500.4050 ####[facility] [address] [place], [address] CO2 [Moles/Vol] 20.0 mmol/L Low 21.0-32.0 [facility] Comment on above: Performed By: #### L 500.4050 ####[facility] [address] [place], [address] Creatinine [Mass/Vol] 4.47 mg/dL High 0.55-1.02 [facility] Comment on above: Result Comment: The validity of the calculated GFR GFRAA in patients over70 years has not been determined. Clinical correlation isessential. Performed By: #### L 500.4050 ####[facility] [address] [place], [address] ECRCL 10.32 ml/min Normal [facility] Comment on above: Performed By: #### L 500.4050 ####[facility] [address] [place], [address] EST GFR - AA 13 mL/min Low >60 [facility] Comment on above: Result Comment: Afri can Brazilian GFR Calc Performed By: #### L 500.4050 ####[facility] [address] [place], [address] GAP 8 Normal 5-15 [facility] Comment on above: Performed By: #### L 500.4050 ####[facility] [address] [place], [address] GFR/1.73 sq M.predicted among non-blacks MDRD (S/P/Bld) [Vol rate/Area] 10 mL/min/{1.73_m2} Low >60 [facility] Comment on above: Result Comment: Non- GFR Calc Performed By: #### L 500.4050 ####[facility] [address] [place], [address] Globulin (S) [Mass/Vol] 3.0 g/dL Normal 2.2-4.2 [facility] Comment on above: Performed By: #### L 500.4050 ####[facility] [address] [place], [address] Glucose [Mass/Vol] 110 mg/dL High 74-106 [facility] Comment on above: Result Comment: Fast ing Glucose result from 100 to 125 mg/dLsuggests IMPAIRED HOMEOSTASIS per A.D.A. criteria. Performed By: #### L 500.4050 ####[facility] [address] [place], [address] Potassium [Moles/Vol] 4.0 mmol/L Normal 3.5-5.1 [facility] Comment on above: Performed By: #### L 500.4050 ####[facility] [address] [place], [address] Sodium [Moles/Vol] 139 mmol/L Normal 136-145 [facility] Comment on above: Performed By: #### L 500.4050 ####[facility] [address] [place], [address] T PROT 5.9 g/dL Low 6.4-8.2 [facility] Comment on above: Performed By: #### L 500.4050 ####[facility] [address] [place], [address] Urea nitrogen [Mass/Vol] 86 mg/dL High 7-18 [facility] Comment on above: Performed By: #### L 500.4050 ####[facility] [address] [place], [address] Cytology, Body Fluid / CSFon 07-20-2024 CYTOLOGY,BF/CSF SEE PATHOLOGY REPORT Normal [facility] Comment on above: Result Comment: Spec imen submitted to Anatomical Pathology Department fortesting. Performed By: #### M 100.2300, M100.2000, L350.1000, L501.1600, L200.0100, L501.0400 ####[facility] [address] [place], [address] Dx Lumbar Puncture w/IMG Kit maurizio 07-20-2024 Dx Lumbar Puncture w/IMG Guide Normal [facility] Glucose Spinal Fluidon 07-20 GLU SPINAL FLD 65 mg/dL Normal 40-75 [facility] Comment on above: Performed By: #### M 100.2300, M100.2000, L350.1000, L501.1600, L200.0100, L501.0400 ####[facility] [address] [place], [address] Gram Stainon 07-20-2024 GS Gram Stain No organisms seen 1+ Red Blood Cells 1+ White Blood Cells Normal [facility] Comment on above: Performed By: #### M 100.2300, M100.2000, L350.1000, L501.1600, L200.0100, L501.0400 ####[facility] [address] [place], [address] Protein Spinal Fluidon 11-18 -2024 PROTEIN CSF 42.0 mg/dL Normal 15.0-45.0 [facility] Comment on above: Performed By: #### M 100.2300, M100.2000, L350.1000, L501.1600, L200.0100, L501.0400 ####[facility] [address] [place], [address] Special Stain Group IIon Special Stain Group II Normal [facility] Comment on above: Performed By: #### P SSII ####[facility] [address] [place], [address] CBC W/Diff, Automatedon 07-03 Absolute Lymph 2.78 X10 3/uL Normal 0.83-4.51 [facility] Comment on above: Performed By: #### L 500.4050, L100.0100 ####[facility] [address] [place], [address] Absolute Neut 8.7 X10 3/uL High 2.0-7.7 [facility] Comment on above: Performed By: #### L 500.4050, L100.0100 ####[facility] [address] [place], [address] Basophils/100 WBC (Bld) 0.8 % Normal 0-1 [facility] Comment on above: Performed By: #### L 500.4050, L100.0100 ####[facility] [address] [place], [address] Eosinophils/100 WBC (Bld) 2.8 % Normal 0-5 [facility] Comment on above: Performed By: #### L 500.4050, L100.0100 ####[facility] [address] [place], [address] Erythrocyte distribution width (RBC) [Ratio] 14.4 % Normal 11.6-14.6 [facility] Comment on above: Performed By: #### L 500.4050, L100.0100 ####[facility] [address] [place], [address] Hematocrit (Bld) [Volume fraction] 31.9 % Low 37-47 [facility] Comment on above: Performed By: #### L 500.4050, L100.0100 ####[facility] [address] [place], [address] Hemoglobin (Bld) [Mass/Vol] 10.1 g/dL Low 12.0-15.0 [facility] Comment on above: Performed By: #### L 500.4050, L100.0100 ####[facility] [address] [place], [address] IG% 0.800 Normal 0.0-0.9 [facility] Comment on above: Result Comment: IG% - Immature Granulocytes (promyelocytes, myelocytes andmetamyelocytes) > 1% indicates that a LEFT SHIFT is Present. Performed By: #### L 500.4050, L100.0100 ####[facility] [address] [place], [address] Lymphocytes/100 WBC (Bld) 21.3 % Normal 19-41 [facility] Comment on above: Performed By: #### L 500.4050, L100.0100 ####[facility] [address] [place], [address] MCH (RBC) [Entitic mass] 30.1 pg Normal 27.0-32.0 [facility] Comment on above: Performed By: #### L 500.4050, L100.0100 ####[facility] [address] [place], [address] MCHC (RBC) [Mass/Vol] 31.7 g/dL Low 32-36 [facility] Comment on above: Performed By: #### L 500.4050, L100.0100 ####[facility] [address] [place], [address] MCV (RBC) [Entitic vol] 94.9 fL Normal 81-99 [facility] Comment on above: Performed By: #### L 500.4050, L100.0100 ####[facility] [address] [place], [address] Monocytes/100 WBC (Bld) 8.1 % Normal 0-10 [facility] Comment on above: Performed By: #### L 500.4050, L100.0100 ####[facility] [address] [place], [address] Neutrophils/100 WBC (Bld) 66.2 % Normal 47-70 [facility] Comment on above: Performed By: #### L 500.4050, L100.0100 ####[facility] [address] [place], [address] Nucleated RBC (Bld) [#/Vol] 0 10*3/uL Normal 0-5 [facility] Comment on above: Performed By: #### L 500.4050, L100.0100 ####[facility] [address] [place], [address] Platelet mean volume (Bld) [Entitic vol] 10.2 fL Normal 6.2-12.0 [facility] Comment on above: Performed By: #### L 500.4050, L100.0100 ####[facility] [address] [place], [address] Platelets (Bld) [#/Vol] 344 10*3/uL Normal 150-450 [facility] Comment on above: Performed By: #### L 500.4050, L100.0100 ####[facility] [address] [place], [address] RBC (Bld) [#/Vol] 3.36 10*6/uL Low 4.2-5.4 [facility] Comment on above: Performed By: #### L 500.4050, L100.0100 ####[facility] [address] [place], [address] RDW SD 50.1 fl High 35.1-43.9 [facility] Comment on above: Performed By: #### L 500.4050, L100.0100 ####[facility] [address] [place], [address] WBC (Bld) [#/Vol] 13.1 10*3/uL High 4.4-11.0 [facility] Comment on above: Performed By: #### L 500.4050, L100.0100 ####[facility] [address] [place], [address] [facility] 07-19-2024 Albumin [Mass/Vol] 3.0 g/dL Low 3.2-5.0 [facility] Comment on above: Performed By: #### L 500.4050, L100.0100 ####[facility] [address] [place], [address] Albumin/Globulin [Mass ratio] 1.0 {ratio} Normal 0.9-2.4 [facility] Comment on above: Performed By: #### L 500.4050, L100.0100 ####[facility] [address] [place], [address] ALK P 87 U/L Normal 45-117 [facility] Comment on above: Performed By: #### L 500.4050, L100.0100 ####[facility] [address] [place], [address] ALT [Catalytic activity/Vol] 18 U/L Normal 13-56 [facility] Comment on above: Performed By: #### L 500.4050, L100.0100 ####[facility] [address] [place], [address] AST [Catalytic activity/Vol] 9 U/L Low 15-37 [facility] Comment on above: Performed By: #### L 500.4050, L100.0100 ####[facility] [address] [place], [address] Bilirubin [Mass/Vol] 0.30 mg/dL Normal 0.20-1.00 [facility] Comment on above: Result Comment: For patients on eltrombopag therapy, use of Dimension [place] TBIL is not recommended. Performed By: #### L 500.4050, L100.0100 ####[facility] [address] [place], [address] BUN/CRE 17.1 RATIO Normal 10-20 [facility] Comment on above: Performed By: #### L 500.4050, L100.0100 ####[facility] [address] [place], [address] CA,Total 9.1 mg/dL Normal 8.5-10.1 [facility] Comment on above: Performed By: #### L 500.4050, L100.0100 ####[facility] [address] [place], [address] Chloride [Moles/Vol] 110 mmol/L High 98-107 [facility] Comment on above: Performed By: #### L 500.4050, L100.0100 ####[facility] [address] [place], [address] CO2 [Moles/Vol] 21.0 mmol/L Normal 21.0-32.0 [facility] Comment on above: Performed By: #### L 500.4050, L100.0100 ####[facility] [address] [place], [address] Creatinine [Mass/Vol] 4.32 mg/dL High 0.55-1.02 [facility] Comment on above: Result Comment: The validity of the calculated GFR GFRAA in patients over70 years has not been determined. Clinical correlation isessential. Performed By: #### L 500.4050, L100.0100 ####[facility] [address] [place], [address] ECRCL 10.68 ml/min Normal [facility] Comment on above: Performed By: #### L 500.4050, L100.0100 ####[facility] [address] [place], [address] EST GFR - AA 13 mL/min Low >60 [facility] Comment on above: Result Comment: Afri can Brazilian GFR Calc Performed By: #### L 500.4050, L100.0100 ####[facility] [address] [place], [address] GAP 8 Normal 5-15 [facility] Comment on above: Performed By: #### L 500.4050, L100.0100 ####[facility] [address] [place], [address] GFR/1.73 sq M.predicted among non-blacks MDRD (S/P/Bld) [Vol rate/Area] 11 mL/min/{1.73_m2} Low >60 [facility] Comment on above: Result Comment: Non- GFR Calc Performed By: #### L 500.4050, L100.0100 ####[facility] [address] [place], [address] Globulin (S) [Mass/Vol] 2.9 g/dL Normal 2.2-4.2 [facility] Comment on above: Performed By: #### L 500.4050, L100.0100 ####[facility] [address] [place], [address] Glucose [Mass/Vol] 114 mg/dL High 74-106 [facility] Comment on above: Result Comment: Fast ing Glucose result from 100 to 125 mg/dLsuggests IMPAIRED HOMEOSTASIS per A.D.A. criteria. Performed By: #### L 500.4050, L100.0100 ####[facility] [address] [place], [address] Potassium [Moles/Vol] 3.8 mmol/L Normal 3.5-5.1 [facility] Comment on above: Performed By: #### L 500.4050, L100.0100 ####[facility] [address] [place], [address] Sodium [Moles/Vol] 139 mmol/L Normal 136-145 [facility] Comment on above: Performed By: #### L 500.4050, L100.0100 ####[facility] [address] [place], [address] T PROT 5.9 g/dL Low 6.4-8.2 [facility] Comment on above: Performed By: #### L 500.4050, L100.0100 ####[facility] [address] [place], [address] Urea nitrogen [Mass/Vol] 74 mg/dL High 7-18 [facility] Comment on above: Performed By: #### L 500.4050, L100.0100 ####[facility] [address] [place], [address] CBC W/Diff, Automatedon 11 Absolute Lymph 1.79 X10 3/uL Normal 0.83-4.51 [facility] Comment on above: Performed By: #### L 500.4100, L501.9985, L500.4050, L100.0100 ####[facility] [address] [place], [address] Absolute Neut 10.7 X10 3/uL High 2.0-7.7 [facility] Comment on above: Performed By: #### L 500.4100, L501.9985, L500.4050, L100.0100 ####[facility] [address] [place], [address] Basophils/100 WBC (Bld) 0.6 % Normal 0-1 [facility] Comment on above: Performed By: #### L 500.4100, L501.9985, L500.4050, L100.0100 ####[facility] [address] [place], [address] Eosinophils/100 WBC (Bld) 0.4 % Normal 0-5 [facility] Comment on above: Performed By: #### L 500.4100, L501.9985, L500.4050, L100.0100 ####[facility] [address] [place], [address] Erythrocyte distribution width (RBC) [Ratio] 14.4 % Normal 11.6-14.6 [facility] Comment on above: Performed By: #### L 500.4100, L501.9985, L500.4050, L100.0100 ####[facility] [address] [place], [address] Hematocrit (Bld) [Volume fraction] 37.9 % Normal 37-47 [facility] Comment on above: Performed By: #### L 500.4100, L501.9985, L500.4050, L100.0100 ####[facility] [address] [place], [address] Hemoglobin (Bld) [Mass/Vol] 11.9 g/dL Low 12.0-15.0 [facility] Comment on above: Performed By: #### L 500.4100, L501.9985, L500.4050, L100.0100 ####[facility] [address] [place], [address] IG% 0.700 Normal 0.0-0.9 [facility] Comment on above: Result Comment: IG% - Immature Granulocytes (promyelocytes, myelocytes andmetamyelocytes) > 1% indicates that a LEFT SHIFT is Present. Performed By: #### L 500.4100, L501.9985, L500.4050, L100.0100 ####[facility] [address] [place], [address] Lymphocytes/100 WBC (Bld) 12.9 % Low 19-41 [facility] Comment on above: Performed By: #### L 500.4100, L501.9985, L500.4050, L100.0100 ####[facility] [address] [place], [address] MCH (RBC) [Entitic mass] 29.8 pg Normal 27.0-32.0 [facility] Comment on above: Performed By: #### L 500.4100, L501.9985, L500.4050, L100.0100 ####[facility] [address] [place], [address] MCHC (RBC) [Mass/Vol] 31.4 g/dL Low 32-36 [facility] Comment on above: Performed By: #### L 500.4100, L501.9985, L500.4050, L100.0100 ####[facility] [address] [place], [address] MCV (RBC) [Entitic vol] 94.8 fL Normal 81-99 [facility] Comment on above: Performed By: #### L 500.4100, L501.9985, L500.4050, L100.0100 ####[facility] [address] [place], [address] Monocytes/100 WBC (Bld) 8.4 % Normal 0-10 [facility] Comment on above: Performed By: #### L 500.4100, L501.9985, L500.4050, L100.0100 ####[facility] [address] [place], [address] Neutrophils/100 WBC (Bld) 77.0 % High 47-70 [facility] Comment on above: Performed By: #### L 500.4100, L501.9985, L500.4050, L100.0100 ####[facility] [address] [place], [address] Nucleated RBC (Bld) [#/Vol] 0 10*3/uL Normal 0-5 [facility] Comment on above: Performed By: #### L 500.4100, L501.9985, L500.4050, L100.0100 ####[facility] [address] [place], [address] Platelet mean volume (Bld) [Entitic vol] 9.5 fL Normal 6.2-12.0 [facility] Comment on above: Performed By: #### L 500.4100, L501.9985, L500.4050, L100.0100 ####[facility] [address] [place], [address] Platelets (Bld) [#/Vol] 384 10*3/uL Normal 150-450 [facility] Comment on above: Performed By: #### L 500.4100, L501.9985, L500.4050, L100.0100 ####[facility] [address] [place], [address] RBC (Bld) [#/Vol] 4.00 10*6/uL Low 4.2-5.4 [facility] Comment on above: Performed By: #### L 500.4100, L501.9985, L500.4050, L100.0100 ####[facility] [address] [place], [address] RDW SD 50.0 fl High 35.1-43.9 [facility] Comment on above: Performed By: #### L 500.4100, L501.9985, L500.4050, L100.0100 ####[facility] [address] [place], [address] WBC (Bld) [#/Vol] 13.9 10*3/uL High 4.4-11.0 [facility] Comment on above: Performed By: #### L 500.4100, L501.9985, L500.4050, L100.0100 ####[facility] [address] [place], [address] Comprehensive Metabolic Prof ilon 07-17-2024 ALB Normal 3.2-5.0 [facility] Comment on above: Result Comment: MARISELA TAMEZ RN Performed By: #### L 500.4050 ####[facility] [address] [place], [address] ALK P Normal 45-117 [facility] Comment on above: Result Comment: MARISELA TAMEZ RN Performed By: #### L 500.4050 ####[facility] [address] [place], [address] ALT Normal 13-56 [facility] Comment on above: Result Comment: MARISELA TAMEZ RN Performed By: #### L 500.4050 ####[facility] [address] [place], [address] AST Normal 15-37 [facility] Comment on above: Result Comment: MARISELA TAMEZ RN Performed By: #### L 500.4050 ####[facility] [address] [place], [address] BUN Normal 7-18 [facility] Comment on above: Result Comment: MARISELA TAMEZ RN Performed By: #### L 500.4050 ####[facility] [address] [place], [address] BUN/CRE Normal 10-20 [facility] Comment on above: Result Comment: MARISELA TAMEZ RN Performed By: #### L 500.4050 ####[facility] [address] [place], [address] CA,Total Normal 8.5-10.1 [facility] Comment on above: Result Comment: MARISELA TAMEZ RN Performed By: #### L 500.4050 ####[facility] [address] [place], [address] CL Normal 98-107 [facility] Comment on above: Result Comment: MARISELA TAMEZ RN Performed By: #### L 500.4050 ####[facility] [address] [place], [address] CO2 Normal 21.0-32.0 [facility] Comment on above: Result Comment: MARISELA TAMEZ RN Performed By: #### L 500.4050 ####[facility] [address] [place], [address] CREAT,SERUM Normal 0.55-1.02 [facility] Comment on above: Result Comment: MARISELA TAMEZ RN Performed By: #### L 500.4050 ####[facility] [address] [place], [address] EST GFR Normal >60 [facility] Comment on above: Result Comment: MARISELA TAMEZ RN Performed By: #### L 500.4050 ####[facility] [address] [place], [address] EST GFR - AA Normal >60 [facility] Comment on above: Result Comment: MARISELA TAMEZ RN Performed By: #### L 500.4050 ####[facility] [address] [place], [address] GAP Normal 5-15 [facility] Comment on above: Result Comment: MARISELA TAMEZ RN Performed By: #### L 500.4050 ####[facility] [address] [place], [address] GLU Normal 74-106 [facility] Comment on above: Result Comment: MARISELA TAMEZ RN Performed By: #### L 500.4050 ####[facility] [address] [place], [address] Potassium Normal 3.5-5.1 [facility] Comment on above: Result Comment: MARISELA TAMEZ RN Performed By: #### L 500.4050 ####[facility] [address] [place], [address] T BILI Normal 0.20-1.00 [facility] Comment on above: Result Comment: MARISELA TAMEZ RN Performed By: #### L 500.4050 ####[facility] [address] [place], [address] T PROT Normal 6.4-8.2 [facility] Comment on above: Result Comment: MARISELA TAMEZ RN Performed By: #### L 500.4050 ####[facility] [address] [place], [address] Comprehensive Metabolic Profil Normal 136-145 [facility] Comment on above: Result Comment: MARISELA TAMEZ RN Performed By: #### L 500.4050 ####[facility] [address] [place], [address] Albumin [Mass/Vol] 3.9 g/dL Normal 3.2-5.0 [facility] Comment on above: Performed By: #### L 500.4100, L501.9985, L500.4050, L100.0100 ####[facility] [address] [place], [address] Albumin/Globulin [Mass ratio] 1.1 {ratio} Normal 0.9-2.4 [facility] Comment on above: Performed By: #### L 500.4100, L501.9985, L500.4050, L100.0100 ####[facility] [address] [place], [address] ALK P 123 U/L High 45-117 [facility] Comment on above: Performed By: #### L 500.4100, L501.9985, L500.4050, L100.0100 ####[facility] [address] [place], [address] ALT [Catalytic activity/Vol] 31 U/L Normal 13-56 [facility] Comment on above: Performed By: #### L 500.4100, L501.9985, L500.4050, L100.0100 ####[facility] [address] [place], [address] AST [Catalytic activity/Vol] 24 U/L Normal 15-37 [facility] Comment on above: Performed By: #### L 500.4100, L501.9985, L500.4050, L100.0100 ####[facility] [address] [place], [address] Bilirubin [Mass/Vol] 0.50 mg/dL Normal 0.20-1.00 [facility] Comment on above: Result Comment: For patients on eltrombopag therapy, use of Dimension [place] TBIL is not recommended. Performed By: #### L 500.4100, L501.9985, L500.4050, L100.0100 ####[facility] [address] [place], [address] BUN/CRE 11.4 RATIO Normal 10-20 [facility] Comment on above: Performed By: #### L 500.4100, L501.9985, L500.4050, L100.0100 ####[facility] [address] [place], [address] CA,Total 10.2 mg/dL High 8.5-10.1 [facility] Comment on above: Performed By: #### L 500.4100, L501.9985, L500.4050, L100.0100 ####[facility] [address] [place], [address] Chloride [Moles/Vol] 113 mmol/L High 98-107 [facility] Comment on above: Performed By: #### L 500.4100, L501.9985, L500.4050, L100.0100 ####[facility] [address] [place], [address] CO2 [Moles/Vol] 24.0 mmol/L Normal 21.0-32.0 [facility] Comment on above: Performed By: #### L 500.4100, L501.9985, L500.4050, L100.0100 ####[facility] [address] [place], [address] Creatinine [Mass/Vol] 3.08 mg/dL High 0.55-1.02 [facility] Comment on above: Result Comment: The validity of the calculated GFR GFRAA in patients over70 years has not been determined. Clinical correlation isessential. Performed By: #### L 500.4100, L501.9985, L500.4050, L100.0100 ####[facility] [address] [place], [address] ECRCL 14.87 ml/min Normal [facility] Comment on above: Performed By: #### L 500.4100, L501.9985, L500.4050, L100.0100 ####[facility] [address] [place], [address] EST GFR - AA 19 mL/min Low >60 [facility] Comment on above: Result Comment: Afri can Brazilian GFR Calc Performed By: #### L 500.4100, L501.9985, L500.4050, L100.0100 ####[facility] [address] [place], [address] GAP 8 Normal 5-15 [facility] Comment on above: Performed By: #### L 500.4100, L501.9985, L500.4050, L100.0100 ####[facility] [address] [place], [address] GFR/1.73 sq M.predicted among non-blacks MDRD (S/P/Bld) [Vol rate/Area] 16 mL/min/{1.73_m2} Low >60 [facility] Comment on above: Result Comment: Non- GFR Calc Performed By: #### L 500.4100, L501.9985, L500.4050, L100.0100 ####[facility] [address] [place], [address] Globulin (S) [Mass/Vol] 3.7 g/dL Normal 2.2-4.2 [facility] Comment on above: Performed By: #### L 500.4100, L501.9985, L500.4050, L100.0100 ####[facility] [address] [place], [address] Glucose [Mass/Vol] 119 mg/dL High 74-106 [facility] Comment on above: Result Comment: Fast ing Glucose result from 100 to 125 mg/dLsuggests IMPAIRED HOMEOSTASIS per A.D.A. criteria. Performed By: #### L 500.4100, L501.9985, L500.4050, L100.0100 ####[facility] [address] [place], [address] Potassium [Moles/Vol] 3.6 mmol/L Normal 3.5-5.1 [facility] Comment on above: Performed By: #### L 500.4100, L501.9985, L500.4050, L100.0100 ####[facility] [address] [place], [address] Sodium [Moles/Vol] 145 mmol/L Normal 136-145 [facility] Comment on above: Performed By: #### L 500.4100, L501.9985, L500.4050, L100.0100 ####[facility] [address] [place], [address] T PROT 7.6 g/dL Normal 6.4-8.2 [facility] Comment on above: Performed By: #### L 500.4100, L501.9985, L500.4050, L100.0100 ####[facility] [address] [place], [address] Urea nitrogen [Mass/Vol] 35 mg/dL High 7-18 [facility] Comment on above: Performed By: #### L 500.4100, L501.9985, L500.4050, L100.0100 ####[facility] [address] [place], [address] Hemoglobin A1con 07-17-2024 HbA1c (Bld) [Mass fraction] 5.6 % Normal 3.8-5.6 [facility] Comment on above: Result Comment: Norm al < 5.7 % Prediabetic 5.7 - 6.4 % Diabetic >or= 6.5 % Please note range changes. Performed By: #### L 500.4100, L501.9985, L500.4050, L100.0100 ####[facility] [address] [place], [address] Lipid Profileon 07-17-2024 Cholesterol [Mass/Vol] 153 mg/dL Normal 200 [facility] Comment on above: Result Comment: <200 mg/dL Desirable 200-240 mg/dL Borderline >240 mg/dL High Risk Performed By: #### L 500.4100, L501.9985, L500.4050, L100.0100 ####[facility] [address] [place], [address] Cholesterol in HDL [Mass/Vol] 61 mg/dL Normal [facility] Comment on above: Result Comment: The drugs N-Acetylcysteine and Metamizole may falselydepress this assay. Reference Range HDL <40 mg/dL Low HDL Cholesterol HDL >or= 60 mg/dL High HDL Cholesterol Performed By: #### L 500.4100, L501.9985, L500.4050, L100.0100 ####[facility] [address] [place], [address] Cholesterol in LDL [Mass/Vol] 44 mg/dL Normal 0-130 [facility] Comment on above: Performed By: #### L 500.4100, L501.9985, L500.4050, L100.0100 ####[facility] [address] [place], [address] Cholesterol in VLDL [Mass/Vol] 48 mg/dL High 5-40 [facility] Comment on above: Performed By: #### L 500.4100, L501.9985, L500.4050, L100.0100 ####[facility] [address] [place], [address] Triglyceride [Mass/Vol] 242 mg/dL High [facility] Comment on above: Result Comment: The drugs N-Acetylcysteine and Metamizole may falselydepress this assay.Serum Triglycerides Reference Interval Normal <150 mg/dL Borderline high 150 - 199 mg/dL High 200 - 499 mg/dL Very High > or = 500 mg/dL Performed By: #### L 500.4100, L501.9985, L500.4050, L100.0100 ####[facility] [address] [place], [address] MR/CON.PCM.NEon 07-17-2024 MR/CON.PCM.NE Normal [facility] 12 Lead EKGon 07-16-2024 12 Lead EKG Normal [facility] Ammoniaon 07-16-2024 Ammonia (P) [Moles/Vol] 25.0 umol/L Normal [facility] Comment on above: Performed By: #### L 503.5510, L300.4310, L300.3900, L100.0100, L500.2500, L500.3400 ####[facility] [address] [place], [address] Basic Metabolic Profile (BMP )on 07-16-2024 BUN/CRE 13.4 RATIO Normal 10-20 [facility] Comment on above: Performed By: #### L 503.5510, L300.4310, L300.3900, L100.0100, L500.2500, L500.3400 ####[facility] [address] [place], [address] CA,Total 9.6 mg/dL Normal 8.5-10.1 [facility] Comment on above: Performed By: #### L 503.5510, L300.4310, L300.3900, L100.0100, L500.2500, L500.3400 ####[facility] [address] [place], [address] Chloride [Moles/Vol] 114 mmol/L High 98-107 [facility] Comment on above: Performed By: #### L 503.5510, L300.4310, L300.3900, L100.0100, L500.2500, L500.3400 ####[facility] [address] [place], [address] CO2 [Moles/Vol] 23.0 mmol/L Normal 21.0-32.0 [facility] Comment on above: Performed By: #### L 503.5510, L300.4310, L300.3900, L100.0100, L500.2500, L500.3400 ####[facility] [address] [place], [address] Creatinine [Mass/Vol] 3.06 mg/dL High 0.55-1.02 [facility] Comment on above: Result Comment: The validity of the calculated GFR GFRAA in patients over70 years has not been determined. Clinical correlation isessential. Performed By: #### L 503.5510, L300.4310, L300.3900, L100.0100, L500.2500, L500.3400 ####[facility] [address] [place], [address] ECRCL 15.87 ml/min Normal [facility] Comment on above: Performed By: #### L 503.5510, L300.4310, L300.3900, L100.0100, L500.2500, L500.3400 ####[facility] [address] [place], [address] EST GFR - AA 19 mL/min Low >60 [facility] Comment on above: Result Comment: Afri can Brazilian GFR Calc Performed By: #### L 503.5510, L300.4310, L300.3900, L100.0100, L500.2500, L500.3400 ####[facility] [address] [place], [address] GAP 7 Normal 5-15 [facility] Comment on above: Performed By: #### L 503.5510, L300.4310, L300.3900, L100.0100, L500.2500, L500.3400 ####[facility] [address] [place], [address] GFR/1.73 sq M.predicted among non-blacks MDRD (S/P/Bld) [Vol rate/Area] 16 mL/min/{1.73_m2} Low >60 [facility] Comment on above: Result Comment: Non- GFR Calc Performed By: #### L 503.5510, L300.4310, L300.3900, L100.0100, L500.2500, L500.3400 ####[facility] [address] [place], [address] Glucose [Mass/Vol] 150 mg/dL High 74-106 [facility] Comment on above: Result Comment: Fast ing Glucose result greater than or equal to 126 mg/dLsuggests DIABETES MELLITUS per A.D.A. criteria. Performed By: #### L 503.5510, L300.4310, L300.3900, L100.0100, L500.2500, L500.3400 ####[facility] [address] [place], [address] Potassium [Moles/Vol] 3.2 mmol/L Low 3.5-5.1 [facility] Comment on above: Performed By: #### L 503.5510, L300.4310, L300.3900, L100.0100, L500.2500, L500.3400 ####[facility] [address] [place], [address] Sodium [Moles/Vol] 144 mmol/L Normal 136-145 [facility] Comment on above: Performed By: #### L 503.5510, L300.4310, L300.3900, L100.0100, L500.2500, L500.3400 ####[facility] [address] [place], [address] Urea nitrogen [Mass/Vol] 41 mg/dL High 7-18 [facility] Comment on above: Performed By: #### L 503.5510, L300.4310, L300.3900, L100.0100, L500.2500, L500.3400 ####[facility] [address] [place], [address] Brain without Contraston Brain without Contrast Normal [facility] Brain/Head without Contrasto n 07-16-2024 Brain/Head without Contrast Normal [facility] CBC W/Diff, Automatedon 07-03 Absolute Lymph 1.32 X10 3/uL Normal 0.83-4.51 [facility] Comment on above: Performed By: #### L 503.5510, L300.4310, L300.3900, L100.0100, L500.2500, L500.3400 ####[facility] [address] [place], [address] Absolute Neut 10.2 X10 3/uL High 2.0-7.7 [facility] Comment on above: Performed By: #### L 503.5510, L300.4310, L300.3900, L100.0100, L500.2500, L500.3400 ####[facility] [address] [place], [address] Basophils/100 WBC (Bld) 0.3 % Normal 0-1 [facility] Comment on above: Performed By: #### L 503.5510, L300.4310, L300.3900, L100.0100, L500.2500, L500.3400 ####[facility] [address] [place], [address] Eosinophils/100 WBC (Bld) 0.1 % Normal 0-5 [facility] Comment on above: Performed By: #### L 503.5510, L300.4310, L300.3900, L100.0100, L500.2500, L500.3400 ####[facility] [address] [place], [address] Erythrocyte distribution width (RBC) [Ratio] 14.2 % Normal 11.6-14.6 [facility] Comment on above: Performed By: #### L 503.5510, L300.4310, L300.3900, L100.0100, L500.2500, L500.3400 ####[facility] [address] [place], [address] Hematocrit (Bld) [Volume fraction] 32.0 % Low 37-47 [facility] Comment on above: Performed By: #### L 503.5510, L300.4310, L300.3900, L100.0100, L500.2500, L500.3400 ####[facility] [address], [address] Hemoglobin (Bld) [Mass/Vol] 10.4 g/dL Low 12.0-15.0 [facility] Comment on above: Performed By: #### L 503.5510, L300.4310, L300.3900, L100.0100, L500.2500, L500.3400 ####[facility] [address] [place], [address] IG% 0.800 Normal 0.0-0.9 [facility] Comment on above: Result Comment: IG% - Immature Granulocytes (promyelocytes, myelocytes andmetamyelocytes) > 1% indicates that a LEFT SHIFT is Present. Performed By: #### L 503.5510, L300.4310, L300.3900, L100.0100, L500.2500, L500.3400 ####[facility] [address] [place], [address] Lymphocytes/100 WBC (Bld) 11.0 % Low 19-41 [facility] Comment on above: Performed By: #### L 503.5510, L300.4310, L300.3900, L100.0100, L500.2500, L500.3400 ####[facility] [address] [place], [address] MCH (RBC) [Entitic mass] 30.7 pg Normal 27.0-32.0 [facility] Comment on above: Performed By: #### L 503.5510, L300.4310, L300.3900, L100.0100, L500.2500, L500.3400 ####[facility] [address] [place], [address] MCHC (RBC) [Mass/Vol] 32.5 g/dL Normal 32-36 [facility] Comment on above: Performed By: #### L 503.5510, L300.4310, L300.3900, L100.0100, L500.2500, L500.3400 ####[facility] [address] [place], [address] MCV (RBC) [Entitic vol] 94.4 fL Normal 81-99 [facility] Comment on above: Performed By: #### L 503.5510, L300.4310, L300.3900, L100.0100, L500.2500, L500.3400 ####[facility] [address] [place], [address] Monocytes/100 WBC (Bld) 3.0 % Normal 0-10 [facility] Comment on above: Performed By: #### L 503.5510, L300.4310, L300.3900, L100.0100, L500.2500, L500.3400 ####[facility] [address] [place], [address] Neutrophils/100 WBC (Bld) 84.8 % High 47-70 [facility] Comment on above: Performed By: #### L 503.5510, L300.4310, L300.3900, L100.0100, L500.2500, L500.3400 ####[facility] [address] [place], [address] Nucleated RBC (Bld) [#/Vol] 0 10*3/uL Normal 0-5 [facility] Comment on above: Performed By: #### L 503.5510, L300.4310, L300.3900, L100.0100, L500.2500, L500.3400 ####[facility] [address] [place], [address] Platelet mean volume (Bld) [Entitic vol] 9.9 fL Normal 6.2-12.0 [facility] Comment on above: Performed By: #### L 503.5510, L300.4310, L300.3900, L100.0100, L500.2500, L500.3400 ####[facility] [address] [place], [address] Platelets (Bld) [#/Vol] 338 10*3/uL Normal 150-450 [facility] Comment on above: Performed By: #### L 503.5510, L300.4310, L300.3900, L100.0100, L500.2500, L500.3400 ####[facility] [address] [place], [address] RBC (Bld) [#/Vol] 3.39 10*6/uL Low 4.2-5.4 [facility] Comment on above: Performed By: #### L 503.5510, L300.4310, L300.3900, L100.0100, L500.2500, L500.3400 ####[facility] [address] [place], [address] RDW SD 48.1 fl High 35.1-43.9 [facility] Comment on above: Performed By: #### L 503.5510, L300.4310, L300.3900, L100.0100, L500.2500, L500.3400 ####[facility] [address] [place], [address] WBC (Bld) [#/Vol] 12.0 10*3/uL High 4.4-11.0 [facility] Comment on above: Performed By: #### L 503.5510, L300.4310, L300.3900, L100.0100, L500.2500, L500.3400 ####[facility] [address] [place], [address] Chest 1 View (Portable)on Chest 1 View (Portable) Normal [facility] Echo Completeon 07-16-2024 Echo Complete Normal [facility] Emergency Department Summary on 07-16-2024 Emergency Department Summary Normal [facility] H AND P Exam - Hospitaliston 07-16-2024 H&P Exam - Hospitalist Normal [facility] Liver Profileon 07-16-2024 Albumin [Mass/Vol] 3.8 g/dL Normal 3.2-5.0 [facility] Comment on above: Performed By: #### L 503.5510, L300.4310, L300.3900, L100.0100, L500.2500, L500.3400 ####[facility] [address] [place], [address] ALK P 114 U/L Normal 45-117 [facility] Comment on above: Performed By: #### L 503.5510, L300.4310, L300.3900, L100.0100, L500.2500, L500.3400 ####[facility] [address] [place], [address] ALT [Catalytic activity/Vol] 34 U/L Normal 13-56 [facility] Comment on above: Performed By: #### L 503.5510, L300.4310, L300.3900, L100.0100, L500.2500, L500.3400 ####[facility] [address] [place], [address] AST [Catalytic activity/Vol] 19 U/L Normal 15-37 [facility] Comment on above: Performed By: #### L 503.5510, L300.4310, L300.3900, L100.0100, L500.2500, L500.3400 ####[facility] [address] [place], [address] Bilirubin [Mass/Vol] 0.40 mg/dL Normal 0.20-1.00 [facility] Comment on above: Result Comment: For patients on eltrombopag therapy, use of Dimension [place] TBIL is not recommended. Performed By: #### L 503.5510, L300.4310, L300.3900, L100.0100, L500.2500, L500.3400 ####[facility] [address] [place], [address] Bilirubin.direct [Mass/Vol] 0.13 mg/dL Normal 0.00-0.30 [facility] Comment on above: Performed By: #### L 503.5510, L300.4310, L300.3900, L100.0100, L500.2500, L500.3400 ####[facility] [address] [place], [address] Globulin (S) [Mass/Vol] 3.5 g/dL Normal 2.2-4.2 [facility] Comment on above: Performed By: #### L 503.5510, L300.4310, L300.3900, L100.0100, L500.2500, L500.3400 ####[facility] [address] [place], [address] T PROT 7.3 g/dL Normal 6.4-8.2 [facility] Comment on above: Performed By: #### L 503.5510, L300.4310, L300.3900, L100.0100, L500.2500, L500.3400 ####[facility] [address] [place], [address] M100.678on 07-16-2024 M100.678 Pending SARS-CoV-2 (COVID 19) Negative INFLUENZA A Negative INFLUENZA B Negative RSV PCR Negative Normal [facility] Comment on above: Performed By: #### M 100.678 ####[facility] [address] [place], [address] Magnesiumon 07-16-2024 Magnesium [Mass/Vol] 1.9 mg/dL Normal 1.6-2.6 [facility] Comment on above: Order Comment: Comme nts: may add to ED labs Performed By: #### L 501.5200 ####[facility] [address] [place], [address] Partial Thromboplast Timeon 07-16-2024 aPTT Coag (Bld) [Time] 33.1 s Normal 24.1-36.2 [facility] Comment on above: Performed By: #### L 503.5510, L300.4310, L300.3900, L100.0100, L500.2500, L500.3400 ####[facility] [address] [place], [address] Pelvis 1 or 2 Viewson 2023 Pelvis 1 or 2 Views Normal [facility] Prothrombin Time w/INRon INR Coag (PPP) [Relative time] 1.2 {INR} Normal [facility] Comment on above: Performed By: #### L 503.5510, L300.4310, L300.3900, L100.0100, L500.2500, L500.3400 ####[facility] [address] [place], [address] PT Coag (PPP) [Time] 15.6 s High 11.7-14.9 [facility] Comment on above: Performed By: #### L 503.5510, L300.4310, L300.3900, L100.0100, L500.2500, L500.3400 ####[facility] [address] [place], [address] Spine Cervical without Contr ason 07-16-2024 Spine Cervical without Contras Normal [facility] Thyroid Stim Hormone (TSH)on 07-16-2024 TSH 1.330 uIU/mL Normal 0.358-3.740 [facility] Comment on above: Performed By: #### L 501.9520 ####[facility] [address] [place], [address] Urinalysis, Completeon 07-16 BACTERIA 0 SEEN Normal None Seen [facility] Comment on above: Order Comment: BLADD ER TAP Performed By: #### L 400.0001 ####[facility] [address] [place], [address] EPI,SQUAMOUS 0 SEEN Normal 5-10 [facility] Comment on above: Order Comment: BLADD ER TAP Performed By: #### L 400.0001 ####[facility] [address] [place], [address] Mucus Ql (Urine sed) 0 SEEN Normal [facility] Comment on above: Order Comment: BLADD ER TAP Performed By: #### L 400.0001 ####[facility] [address] [place], [address] RBC 0 SEEN Normal 0-5 [facility] Comment on above: Order Comment: BLADD ER TAP Performed By: #### L 400.0001 ####[facility] [address] [place], [address] WBC 0 SEEN Normal 0-5 [facility] Comment on above: Order Comment: BLADD ER TAP Performed By: #### L 400.0001 ####[facility] [address] [place], [address] Urine Drug Screen (VISTA)on 07-16-2024 AMPHETAMINES Negative Normal <1000 ng/mL [facility] Comment on above: Performed By: #### L 505.5000 ####[facility] [address] [place], [address] BARBITIURATES Negative Normal < 200 ng/mL [facility] Comment on above: Performed By: #### L 505.5000 ####[facility] [address] [place], [address] BENZODIAZIPINE Negative Normal < 200 ng/mL [facility] Comment on above: Performed By: #### L 505.5000 ####[facility] [address] [place], [address] COCAINE Negative Normal < 300 ng/mL [facility] Comment on above: Performed By: #### L 505.5000 ####[facility] [address] [place], [address] ECSTACY Negative Normal < 500 ng/mL [facility] Comment on above: Performed By: #### L 505.5000 ####[facility] [address] [place], [address] METHADONE Negative Normal < 300 ng/mL [facility] Comment on above: Performed By: #### L 505.5000 ####[facility] [address] [place], [address] OPIATES Negative Normal < 300 ng/mL [facility] Comment on above: Performed By: #### L 505.5000 ####[facility] [address] [place], [address] PCP Negative Normal < 25 ng/mL [facility] Comment on above: Performed By: #### L 505.5000 ####[facility] [address] [place], [address] THC Negative Normal < 50 ng/mL [facility] Comment on above: Performed By: #### L 505.5000 ####[facility] [address] [place], [address] VISTA UDS PH 6 Normal [facility] Comment on above: Performed By: #### L 505.5000 ####[facility] [address] [place], [address] Venous Blood Gason 4 Blood Gas Type ARELI Normal [facility] Comment on above: Performed By: #### L 9000.0810 ####[facility] [address] [place], [address] CO2 [Moles/Vol] 20 mmol/L Low 23-33 [facility] Comment on above: Performed By: #### L 9000.0810 ####[facility] [address] [place], [address] HCO3 (Bld) [Moles/Vol] 20 mmol/L Low 22-26 [facility] Comment on above: Performed By: #### L 9000.0810 ####[facility] [address] [place], [address] O2 Delivery Dev Not entered Normal [facility] Comment on above: Performed By: #### L 9000.0810 ####[facility] [address] [place], [address] SITE Not entered Normal [facility] Comment on above: Performed By: #### L 9000.0810 ####[facility] [address] [place], [address] VBG BE -5 mmol/L Low -1.0-3.5 [facility] Comment on above: Performed By: #### L 9000.0810 ####[facility] [address] [place], [address] VBG pCO2 30.5 mmHg Low 41-51 [facility] Comment on above: Performed By: #### L 9000.0810 ####[facility] [address] [place], [address] VBG pH 7.41 Normal 7.32-7.42 [facility] Comment on above: Performed By: #### L 9000.0810 ####[facility] [address] [place], [address] VBG PO2 99 mmHg High 25-40 [facility] Comment on above: Performed By: #### L 9000.0810 ####[facility] [address] [place], [address] VBG SO2 98 High 50-70 [facility] Comment on above: Performed By: #### L 9000.0810 ####[facility] [address] [place], [address] Basic Metabolic Profile (BMP )on 06-26-2023 BUN/CRE 14.8 RATIO Normal 10-20 [facility] Comment on above: Order Comment: 516.1 Performed By: #### L 500.2500, L100.0500 ####[facility] [address] [place], [address] CA,Total 9.2 mg/dL Normal 8.5-10.1 [facility] Comment on above: Order Comment: 516.1 Performed By: #### L 500.2500, L100.0500 ####[facility] [address] [place], [address] Chloride [Moles/Vol] 109 mmol/L High 98-107 [facility] Comment on above: Order Comment: 516.1 Performed By: #### L 500.2500, L100.0500 ####[facility] [address] [place], [address] CO2 [Moles/Vol] 24.0 mmol/L Normal 21.0-32.0 [facility] Comment on above: Order Comment: 516.1 Performed By: #### L 500.2500, L100.0500 ####[facility] [address] [place], [address] Creatinine [Mass/Vol] 3.45 mg/dL High 0.55-1.02 [facility] Comment on above: Order Comment: 516.1 Result Comment: The validity of the calculated GFR GFRAA in patients over70 years has not been determined. Clinical correlation isessential. Performed By: #### L 500.2500, L100.0500 ####[facility] [address] [place], [address] EST GFR - AA 17 mL/min Low >60 [facility] Comment on above: Order Comment: 516.1 Result Comment: Afri can Brazilian GFR Calc Performed By: #### L 500.2500, L100.0500 ####[facility] [address] [place], [address] GAP 7 Normal 5-15 [facility] Comment on above: Order Comment: 516.1 Performed By: #### L 500.2500, L100.0500 ####[facility] [address] [place], [address] GFR/1.73 sq M.predicted among non-blacks MDRD (S/P/Bld) [Vol rate/Area] 14 mL/min/{1.73_m2} Low >60 [facility] Comment on above: Order Comment: 516.1 Result Comment: Non- GFR Calc Performed By: #### L 500.2500, L100.0500 ####[facility] [address] [place], [address] Glucose [Mass/Vol] 101 mg/dL Normal 74-106 [facility] Comment on above: Order Comment: 516.1 Result Comment: Fast ing Glucose result from 100 to 125 mg/dLsuggests IMPAIRED HOMEOSTASIS per A.D.A. criteria. Performed By: #### L 500.2500, L100.0500 ####[facility] [address] [place], [address] Potassium [Moles/Vol] 4.3 mmol/L Normal 3.5-5.1 [facility] Comment on above: Order Comment: 516.1 Performed By: #### L 500.2500, L100.0500 ####[facility] [address] [place], [address] Sodium [Moles/Vol] 140 mmol/L Normal 136-145 [facility] Comment on above: Order Comment: 516.1 Performed By: #### L 500.2500, L100.0500 ####[facility] [address] [place], [address] Urea nitrogen [Mass/Vol] 51 mg/dL High 7-18 [facility] Comment on above: Order Comment: 516.1 Performed By: #### L 500.2500, L100.0500 ####[facility] [address] [place], [address] CBC-Complete Blood Cnt No Di ffon 06-26-2024 Erythrocyte distribution width (RBC) [Ratio] 15.8 % High 11.6-14.6 [facility] Comment on above: Order Comment: 516.1 Performed By: #### L 500.2500, L100.0500 ####[facility] [address] [place], [address] Hematocrit (Bld) [Volume fraction] 27.9 % Low 37-47 [facility] Comment on above: Order Comment: 516.1 Performed By: #### L 500.2500, L100.0500 ####[facility] [address] [place], [address] Hemoglobin (Bld) [Mass/Vol] 8.5 g/dL Low 12.0-15.0 [facility] Comment on above: Order Comment: 516.1 Performed By: #### L 500.2500, L100.0500 ####[facility] [address] [place], [address] MCH (RBC) [Entitic mass] 29.6 pg Normal 27.0-32.0 [facility] Comment on above: Order Comment: 516.1 Performed By: #### L 500.2500, L100.0500 ####[facility] [address] [place], [address] MCHC (RBC) [Mass/Vol] 30.5 g/dL Low 32-36 [facility] Comment on above: Order Comment: 516.1 Performed By: #### L 500.2500, L100.0500 ####[facility] [address] [place], [address] MCV (RBC) [Entitic vol] 97.2 fL Normal 81-99 [facility] Comment on above: Order Comment: 516.1 Performed By: #### L 500.2500, L100.0500 ####[facility] [address] [place], [address] Platelet mean volume (Bld) [Entitic vol] 10.5 fL Normal 6.2-12.0 [facility] Comment on above: Order Comment: 516.1 Performed By: #### L 500.2500, L100.0500 ####[facility] [address] [place], [address] Platelets (Bld) [#/Vol] 297 10*3/uL Normal 150-450 [facility] Comment on above: Order Comment: 516.1 Performed By: #### L 500.2500, L100.0500 ####[facility] [address] [place], [address] RBC (Bld) [#/Vol] 2.87 10*6/uL Low 4.2-5.4 [facility] Comment on above: Order Comment: 516.1 Performed By: #### L 500.2500, L100.0500 ####[facility] [address] [place], [address] RDW SD 56.2 fl High 35.1-43.9 [facility] Comment on above: Order Comment: 516.1 Performed By: #### L 500.2500, L100.0500 ####[facility] [address] [place], [address] WBC (Bld) [#/Vol] 9.1 10*3/uL Normal 4.4-11.0 [facility] Comment on above: Order Comment: 516.1 Performed By: #### L 500.2500, L100.0500 ####[facility] [address] [place], [address] EGD Study observation Narrat iveon 03-23-2024 [facility] Gastrointestinal Endoscopy Patient Name: Kary Haddad Procedure Date: 03/23/2024 11:01 AM Date of : 1955 Admit Type: Outpatient Room: [place] [address] Gender: Female Note Status: Finalized Attending MD: Casimiro Torrez MD, [id number] Procedure: Upper GI endoscopy Indications: Follow-up of [...] Note Initiated On: 03/23/2024 11:01 AM [facility] Radiology Study observation (narrative) [facility] Absolute lymphocyte countOrd ered By: Ronald Lowe on 12-03-2023 Lymphocytes Auto (Unsp spec) [#/Vol] 1.83 10*3/uL 0.83-4.51 [facility] Automated lymphocyte count a s percentage of total leukocytesOrdered By: Ronald Lowe on 12-03-2023 Lymphocytes/100 WBC Auto (Unsp spec) 26.7 % 19-41 [facility] Basophil percentageOrdered B y: Ronald Lowe on 12-03-2023 Basophil percentage 2.4 mg/dL 2.5-4.9 [facility] Basophils/100 WBC (Bld) 0.7 % 0-1 [facility] Chloride [Moles/Vol] 117 mmol/L 98-107 [facility] Eosinophils/100 WBC (Bld) 4.4 % 0-5 [facility] Glucose [Mass/Vol] 105 mg/dL 74-106 [facility] Comment on above: Fasting Glucose resu lt from 100 to 125 mg/dL suggests IMPAIRED HOMEOSTASIS per A.D.A. criteria. Hemoglobin (Bld) [Mass/Vol] 9.5 g/dL 12.0-15.0 [facility] Monocytes/100 WBC (Bld) 9.9 % 0-10 [facility] Neutrophils (Bld) [#/Vol] 4.0 10*3/uL 2.0-7.7 [facility] Neutrophils/100 WBC (Bld) 57.9 % 47-70 [facility] Potassium [Moles/Vol] 4.1 mmol/L 3.5-5.1 [facility] Sodium [Moles/Vol] 143 mmol/L 136-145 [facility] WBC (Bld) [#/Vol] 6.9 10*3/uL 4.4-11.0 [facility] Determination of erythrocyte mean corpuscular volume (MCV)Ordered By: Ronald Lowe on 12-03-2023 MCV (RBC) [Entitic vol] 91.1 fL 81-99 [facility] Erythrocyte distribution wid th ratioOrdered By: Ronald Lowe on 12-03-2023 Erythrocyte distribution width (RBC) [Ratio] 13.7 % 11.6-14.6 [facility] Erythrocyte distribution wid th standard deviationOrdered By: Ronald Lowe on 12-03-2023 Erythrocyte distribution width (RBC) [Entitic vol] 46.1 fL 35.1-43.9 [facility] Hematocrit Auto (Bld) [Volum e fraction]Ordered By: Ronald Lowe on 12-03-2023 Hematocrit (Bld) [Volume fraction] 29.8 % 37-47 [facility] Immature granulocytes/100 WB C Auto (Bld)Ordered By: Ronald Lowe on 12-03-2023 Immature granulocytes/100 WBC (Bld) 0.400 % 0.0-0.9 [facility] Comment on above: IG% - Immature Granu locytes (promyelocytes, myelocytes and metamyelocytes) > 1% indicates that a LEFT SHIFT is Present. Laboratory - Chemistry and C hemistry - challengeOrdered By: Ronald Lowe on 12-03-2023 CO2 [Moles/Vol] 20.0 mmol/L 21.0-32.0 [facility] Magnesium [Mass/Vol] 1.6 mg/dL 1.6-2.6 [facility] Urea nitrogen/Creatinine [Mass ratio] 16.2 mg/mg 10-20 [facility] Laboratory - Hematology and Cell countsOrdered By: Ronald Lowe on 12-03-2023 MCH (RBC) [Entitic mass] 29.1 pg 27.0-32.0 [facility] MCHC (RBC) [Mass/Vol] 31.9 g/dL 32-36 [facility] Nucleated RBC/100 WBC (Bld) [Ratio] 0 % 0-5 [facility] Platelet mean volume (Bld) [Entitic vol] 11.5 fL 6.2-12.0 [facility] Platelets (Bld) [#/Vol] 276 10*3/uL 150-450 [facility] No Panel InformationOrdered By: Ronald Lowe on 12-03-2023 Estimated Creatinine Clearance Calc 33.93 ml/min [facility] Estimated GFR (MDRD) Amer 47 mL/min >60 [facility] Comment on above: GFR Calc Estimated GFR (MDRD) Non-Af Amer 39 mL/min >60 [facility] Comment on above: Non- GFR Calc RBC Auto (Bld) [#/Vol]Ordere d By: Ronald Lowe on 12-03-2023 RBC (Bld) [#/Vol] 3.27 10*6/uL 4.2-5.4 [facility] Serum or plasma calcium yamil urement (mass/volume)Ordered By: Ronald Lowe on 12-03-2023 Calcium [Mass/Vol] 8.6 mg/dL 8.5-10.1 [facility] Serum or plasma creatinine m easurement (mass/volume)Ordered By: Ronald Lowe on 12-03-2023 Creatinine [Mass/Vol] 1.42 mg/dL 0.55-1.02 [facility] Comment on above: The validity of the calculated GFR & GFRAA in patients over 70 years has not been determined. Clinical correlation is essential. Serum or plasma urea nitroge n measurement (mass/volume)Ordered By: Ronald Lowe on 12-03-2023 Urea nitrogen [Mass/Vol] 23 mg/dL 7-18 [facility] Thin prep Papanicolaou smear with manual screeningOrdered By: Ronald Lowe on 12-03-2023 Thin prep Papanicolaou smear with manual screening 6 5-15 [facility] Absolute lymphocyte countOrd ered By: Raisa Calhoun on 12-01-2023 Lymphocytes Auto (Unsp spec) [#/Vol] 2.01 10*3/uL 0.83-4.51 [facility] Activated partial thrombopla stin time (aPTT) in platelet poor plasma by coagulation aOrdered By: Raisa Calhoun on 12-01-2023 aPTT Coag (PPP) [Time] 28.2 s 24.1-36.2 [facility] Automated lymphocyte count a s percentage of total leukocytesOrdered By: Raisa Calhoun on 12-01-2023 Lymphocytes/100 WBC Auto (Unsp spec) 16.6 % 19-41 [facility] Basophil percentageOrdered B y: Raisa Calhoun on 12-01-2023 Basophils/100 WBC (Bld) 0.7 % 0-1 [facility] Bilirubin [Mass/Vol] 0.40 mg/dL 0.20-1.00 [facility] Comment on above: For patients on eltr ombopag therapy, use of Dimension [place] TBIL is not recommended. Chloride [Moles/Vol] 109 mmol/L 98-107 [facility] Eosinophils/100 WBC (Bld) 2.2 % 0-5 [facility] Glucose [Mass/Vol] 139 mg/dL 74-106 [facility] Comment on above: Fasting Glucose resu lt greater than or equal to 126 mg/dL suggests DIABETES MELLITUS per A.D.A. criteria. Hemoglobin (Bld) [Mass/Vol] 11.1 g/dL 12.0-15.0 [facility] Lactate [Moles/Vol] 1.3 mmol/L 0.4-2.0 [facility] Monocytes/100 WBC (Bld) 8.4 % 0-10 [facility] Neutrophils (Bld) [#/Vol] 8.7 10*3/uL 2.0-7.7 [facility] Neutrophils/100 WBC (Bld) 71.5 % 47-70 [facility] Potassium [Moles/Vol] 3.9 mmol/L 3.5-5.1 [facility] Protein [Mass/Vol] 6.9 g/dL 6.4-8.2 [facility] Sodium [Moles/Vol] 139 mmol/L 136-145 [facility] WBC (Bld) [#/Vol] 12.1 10*3/uL 4.4-11.0 [facility] Determination of erythrocyte mean corpuscular volume (MCV)Ordered By: Raisa Calhoun on 12-01-2023 MCV (RBC) [Entitic vol] 89.7 fL 81-99 [facility] Direct bilirubinOrdered By: Raisa Calhoun on 12-01-2023 Bilirubin.direct [Mass/Vol] 0.12 mg/dL 0.00-0.30 [facility] Erythrocyte distribution wid th ratioOrdered By: Raisa Calhoun on 12-01-2023 Erythrocyte distribution width (RBC) [Ratio] 13.9 % 11.6-14.6 [facility] Erythrocyte distribution wid th standard deviationOrdered By: Raisa Calhoun on 12-01-2023 Erythrocyte distribution width (RBC) [Entitic vol] 45.1 fL 35.1-43.9 [facility] Hematocrit Auto (Bld) [Volum e fraction]Ordered By: Raisa Calhoun on 12-01-2023 Hematocrit (Bld) [Volume fraction] 34.7 % 37-47 [facility] Immature granulocytes/100 WB C Auto (Bld)Ordered By: Raisa Calhoun on 12-01-2023 Immature granulocytes/100 WBC (Bld) 0.600 % 0.0-0.9 [facility] Comment on above: IG% - Immature Granu locytes (promyelocytes, myelocytes and metamyelocytes) > 1% indicates that a LEFT SHIFT is Present. Laboratory - Chemistry and C hemistry - challengeOrdered By: Raisa Calhoun on 12-01-2023 ALP [Catalytic activity/Vol] 76 U/L 45-117 [facility] ALT [Catalytic activity/Vol] 20 U/L 13-56 [facility] CO2 [Moles/Vol] 23.0 mmol/L 21.0-32.0 [facility] Globulin (S) [Mass/Vol] 3.4 g/dL 2.2-4.2 [facility] Urea nitrogen/Creatinine [Mass ratio] 28.0 mg/mg 10-20 [facility] Laboratory - CoagulationOrde red By: Raisa Calhoun on 12-01-2023 INR Coag (Bld) [Relative time] 1.1 {INR} [facility] PT Coag (PPP) [Time] 14.6 s 11.7-14.9 [facility] Laboratory - Hematology and Cell countsOrdered By: Raisa Calhoun on 12-01-2023 MCH (RBC) [Entitic mass] 28.7 pg 27.0-32.0 [facility] MCHC (RBC) [Mass/Vol] 32.0 g/dL 32-36 [facility] Nucleated RBC/100 WBC (Bld) [Ratio] 0 % 0-5 [facility] Platelet mean volume (Bld) [Entitic vol] 10.5 fL 6.2-12.0 [facility] Platelets (Bld) [#/Vol] 401 10*3/uL 150-450 [facility] No Panel InformationOrdered By: Raisa Calhoun on 12-01-2023 Estimated Creatinine Clearance Calc 25.91 ml/min [facility] Estimated GFR (MDRD) Amer 34 mL/min >60 [facility] Comment on above: GFR Calc Estimated GFR (MDRD) Non-Af Amer 28 mL/min >60 [facility] Comment on above: Non- GFR Calc RBC Auto (Bld) [#/Vol]Ordere d By: Raisa Calhoun on 12-01-2023 RBC (Bld) [#/Vol] 3.87 10*6/uL 4.2-5.4 [facility] Serum or plasma calcium yamil urement (mass/volume)Ordered By: Raias Calhoun on 12-01-2023 Calcium [Mass/Vol] 9.4 mg/dL 8.5-10.1 [facility] Serum or plasma creatinine m easurement (mass/volume)Ordered By: Raisa Calhoun on 12-01-2023 Creatinine [Mass/Vol] 1.86 mg/dL 0.55-1.02 [facility] Comment on above: The validity of the calculated GFR & GFRAA in patients over 70 years has not been determined. Clinical correlation is essential. Serum or plasma urea nitroge n measurement (mass/volume)Ordered By: Raisa Calhoun on 12-01-2023 Urea nitrogen [Mass/Vol] 52 mg/dL 7-18 [facility] Stool gastrointestinal hemog lobin detection by immunologic methodOrdered By: Raisa Calhoun on 12-01-2023 Lower GI hemoglobin IA Ql (Stl) [facility] Thin prep Papanicolaou smear with manual screeningOrdered By: Raisa Calhoun on 12-01-2023 Thin prep Papanicolaou smear with manual screening 3.5 g/dL 3.2-5.0 [facility] Thin prep Papanicolaou smear with manual screening 18 U/L 15-37 [facility] Thin prep Papanicolaou smear with manual screening 7 5-15 [facility] Absolute lymphocyte countOrd ered By: Ronald Lowe on 07-27-2023 Lymphocytes Auto (Unsp spec) [#/Vol] 2.05 10*3/uL 0.83-4.51 [facility] Basophil percentageOrdered B y: Ronald Lowe on 07-27-2023 Basophil percentage 2.7 mg/dL 2.5-4.9 [facility] Basophils/100 WBC (Bld) 0.8 % 0-1 [facility] Chloride [Moles/Vol] 113 mmol/L 98-107 [facility] Eosinophils/100 WBC (Bld) 2.6 % 0-5 [facility] Glucose [Mass/Vol] 127 mg/dL 74-106 [facility] Comment on above: Fasting Glucose resu lt greater than or equal to 126 mg/dL suggests DIABETES MELLITUS per A.D.A. criteria. Neutrophils (Bld) [#/Vol] 6.8 10*3/uL 2.0-7.7 [facility] Neutrophils/100 WBC (Bld) 65.5 % 47-70 [facility] Potassium [Moles/Vol] 3.8 mmol/L 3.5-5.1 [facility] Sodium [Moles/Vol] 140 mmol/L 136-145 [facility] WBC (Bld) [#/Vol] 10.4 10*3/uL 4.4-11.0 [facility] Blood erythrocytes count (nu mber/volume)Ordered By: Ronald Lowe on 07-27-2023 RBC (Bld) [#/Vol] 3.84 10*6/uL 4.2-5.4 [facility] Blood hemoglobin measurement (mass/volume)Ordered By: Ronald Lowe on 07-27-2023 Hemoglobin (Bld) [Mass/Vol] 11.1 g/dL 12.0-15.0 [facility] Blood lymphocytes/100 leukoc ytesOrdered By: Ronald Lowe on 07-27-2023 Lymphocytes/100 WBC (Bld) 19.7 % 19-41 [facility] Blood monocytes/100 leukocyt esOrdered By: Ronald Loew on 07-27-2023 Monocytes/100 WBC (Bld) 10.8 % 0-10 [facility] Blood platelet mean volumeOr dered By: Ronald Lowe on 07-27-2023 Platelet mean volume (Bld) [Entitic vol] 11.2 fL 6.2-12.0 [facility] Determination of erythrocyte mean corpuscular volume (MCV)Ordered By: Ronald Lowe on 07-27-2023 MCV (RBC) [Entitic vol] 91.9 fL 81-99 [facility] Hematocrit Auto (Bld) [Volum e fraction]Ordered By: Ronald Lowe on 07-27-2023 Hematocrit (Bld) [Volume fraction] 35.3 % 37-47 [facility] Laboratory - Chemistry and C hemistry - challengeOrdered By: Ronald Lowe on 07-27-2023 CO2 [Moles/Vol] 22.0 mmol/L 21.0-32.0 [facility] Magnesium [Mass/Vol] 1.6 mg/dL 1.6-2.6 [facility] Urea nitrogen/Creatinine [Mass ratio] 21.7 mg/mg 10-20 [facility] Laboratory - Hematology and Cell countsOrdered By: Ronald Lowe on 07-27-2023 Erythrocyte distribution width (RBC) [Entitic vol] 49.1 fL 35.1-43.9 [facility] Erythrocyte distribution width (RBC) [Ratio] 14.6 % 11.6-14.6 [facility] Immature granulocytes/100 WBC (Bld) 0.600 % 0.0-0.9 [facility] Comment on above: IG% - Immature Granu locytes (promyelocytes, myelocytes and metamyelocytes) > 1% indicates that a LEFT SHIFT is Present. MCH (RBC) [Entitic mass] 28.9 pg 27.0-32.0 [facility] Nucleated RBC/100 WBC (Bld) [Ratio] 0 % 0-5 [facility] MCHC Auto (RBC) [Mass/Vol]Or dered By: Ronald Lowe on 07-27-2023 MCHC (RBC) [Mass/Vol] 31.4 g/dL 32-36 [facility] No Panel InformationOrdered By: Ronald Lowe on 07-27-2023 Estimated Creatinine Clearance Calc 30.00 ml/min [facility] Estimated GFR (MDRD) Amer 49 mL/min >60 [facility] Comment on above: GFR Calc Estimated GFR (MDRD) Non-Af Amer 40 mL/min >60 [facility] Comment on above: Non- GFR Calc Platelets bldOrdered By: Donnie Lowe on 07-27-2023 Platelets (Bld) [#/Vol] 301 10*3/uL 150-450 [facility] Serum or plasma calcium yamil urement (mass/volume)Ordered By: Ronald Lowe on 07-27-2023 Calcium [Mass/Vol] 9.1 mg/dL 8.5-10.1 [facility] Serum or plasma creatinine m easurement (mass/volume)Ordered By: Ronald Lowe on 07-27-2023 Creatinine [Mass/Vol] 1.38 mg/dL 0.55-1.02 [facility] Comment on above: The validity of the calculated GFR & GFRAA in patients over 70 years has not been determined. Clinical correlation is essential. Serum or plasma urea nitroge n measurement (mass/volume)Ordered By: Ronald Lowe on 07-27-2023 Urea nitrogen [Mass/Vol] 30 mg/dL 7-18 [facility] Thin prep Papanicolaou smear with manual screeningOrdered By: Ronald Lowe on 07-27-2023 Thin prep Papanicolaou smear with manual screening 5 5-15 [facility] Basophil percentageOrdered B y: Melecio Torrez on 07-26-2023 Bilirubin [Mass/Vol] 0.40 mg/dL 0.20-1.00 [facility] Comment on above: For patients on eltr ombopag therapy, use of Dimension [place] TBIL is not recommended. Protein [Mass/Vol] 6.3 g/dL 6.4-8.2 [facility] Blood manual differential co mment interpretation (narrative result)Ordered By: Melecio Torrez on 07-26-2023 Manual differential comment Fitz (Bld) [Interp] SCANNED [facility] Comment on above: MONOCYTOSIS PRESENT Blood platelet morphology de termination (nominal result)Ordered By: Melecio Torrez on 07-26-2023 Platelet morphology finding Nom (Bld) LARGE [facility] Direct bilirubinOrdered By: Melecio Torrez on 07-26-2023 Bilirubin.direct [Mass/Vol] 0.12 mg/dL 0.00-0.30 [facility] INR in Blood by Coagulation assayOrdered By: Melecio Torrez on 07-26-2023 INR Coag (Bld) [Relative time] 1.1 {INR} [facility] Laboratory - Chemistry and C hemistry - challengeOrdered By: Melecio Torrez on 07-26-2023 ALP [Catalytic activity/Vol] 68 U/L 45-117 [facility] ALT [Catalytic activity/Vol] 26 U/L 13-56 [facility] Globulin (S) [Mass/Vol] 3.1 g/dL 2.2-4.2 [facility] Natriuretic peptide B (Bld) [Mass/Vol] 1014.8 pg/mL 0-100 [facility] Laboratory - CoagulationOrde red By: Melecio Torrez on 07-26-2023 aPTT Coag (Bld) [Time] 45.6 s 24.1-36.2 [facility] PT Coag (PPP) [Time] 14.7 s 11.7-14.9 [facility] No Panel InformationOrdered By: Melecio Torrez on 07-26-2023 Troponin I High Sensitivity 1815 pg/mL 3.0-54.0 [facility] Comment on above: Critical Result(s) C alled at: 01:45:09 07/26/2023 by: Miguel Angel Baldwin. ADRIA AlejandreRN) (PCU) Results read back by same. Please Note: New Test Units and Gender Specific Reference Ranges. For more information see Policy Stat Procedure [place] High Sensitivity Troponin (TNIH) and attachments. Review by pathologistOrdered By: Melecio Torrez on 07-26-2023 Pathologist review Fitz (Unsp spec) [Interp] Reviewed [facility] Comment on above: Previous reported re sult: Anna owens Edited by: MARIA LUISA on 07/26/23:1426Neutrophilic leukocytosis.Clinical correlation suggested.Dereck Nunn D.O. 07/26/23 AMENDED REPORT 07/26/23 1426 PATH REV previously reported as: Anna owens Serum or plasma albumin yamil urement (mass/volume)Ordered By: Melecio Torrez on 07-26-2023 Albumin [Mass/Vol] 3.2 g/dL 3.2-5.0 [facility] Thin prep Papanicolaou smear with manual screeningOrdered By: Melecio Torrez on 07-26-2023 Thin prep Papanicolaou smear with manual screening 22 U/L 15-37 [facility] Absolute lymphocyte countOrd ered By: Valentin Ceballos on 07-25-2023 Lymphocytes Auto (Unsp spec) [#/Vol] 1.03 10*3/uL 0.83-4.51 [facility] Basophil percentageOrdered B y: Valentin Ceballos on 07-25-2023 Basophils/100 WBC (Bld) 0.5 % 0-1 [facility] Chloride [Moles/Vol] 111 mmol/L 98-107 [facility] Eosinophils/100 WBC (Bld) 0.1 % 0-5 [facility] Glucose [Mass/Vol] 146 mg/dL 74-106 [facility] Comment on above: Fasting Glucose resu lt greater than or equal to 126 mg/dL suggests DIABETES MELLITUS per A.D.A. criteria. Neutrophils (Bld) [#/Vol] 16.7 10*3/uL 2.0-7.7 [facility] Neutrophils/100 WBC (Bld) 88.1 % 47-70 [facility] Potassium [Moles/Vol] 3.7 mmol/L 3.5-5.1 [facility] Sodium [Moles/Vol] 142 mmol/L 136-145 [facility] WBC (Bld) [#/Vol] 19.0 10*3/uL 4.4-11.0 [facility] Blood erythrocytes count (nu mber/volume)Ordered By: Valentin Ceballos on 07-25-2023 RBC (Bld) [#/Vol] 4.88 10*6/uL 4.2-5.4 [facility] Blood hemoglobin measurement (mass/volume)Ordered By: Valentin Ceballos on 07-25-2023 Hemoglobin (Bld) [Mass/Vol] 13.9 g/dL 12.0-15.0 [facility] Blood lymphocytes/100 leukoc ytesOrdered By: Valentin Ceballos on 07-25-2023 Lymphocytes/100 WBC (Bld) 5.4 % 19-41 [facility] Blood monocytes/100 leukocyt esOrdered By: Valentin Ceballos on 07-25-2023 Monocytes/100 WBC (Bld) 5.4 % 0-10 [facility] Blood platelet mean volumeOr dered By: Valentin Ceballos on 07-25-2023 Platelet mean volume (Bld) [Entitic vol] 10.6 fL 6.2-12.0 [facility] Determination of erythrocyte mean corpuscular volume (MCV)Ordered By: Valentin Ceballos on 07-25-2023 MCV (RBC) [Entitic vol] 88.5 fL 81-99 [facility] Hematocrit Auto (Bld) [Volum e fraction]Ordered By: Valentin Ceballos on 07-25-2023 Hematocrit (Bld) [Volume fraction] 43.2 % 37-47 [facility] Laboratory - Chemistry and C hemistry - challengeOrdered By: Valentin Ceballos on 07-25-2023 CO2 [Moles/Vol] 21.0 mmol/L 21.0-32.0 [facility] Natriuretic peptide B (Bld) [Mass/Vol] 383.4 pg/mL 0-100 [facility] Urea nitrogen/Creatinine [Mass ratio] 16.3 mg/mg 10-20 [facility] Laboratory - Hematology and Cell countsOrdered By: Valentin Ceballos on 07-25-2023 Erythrocyte distribution width (RBC) [Entitic vol] 45.2 fL 35.1-43.9 [facility] Erythrocyte distribution width (RBC) [Ratio] 14.1 % 11.6-14.6 [facility] Immature granulocytes/100 WBC (Bld) 0.500 % 0.0-0.9 [facility] Comment on above: IG% - Immature Granu locytes (promyelocytes, myelocytes and metamyelocytes) > 1% indicates that a LEFT SHIFT is Present. MCH (RBC) [Entitic mass] 28.5 pg 27.0-32.0 [facility] Nucleated RBC/100 WBC (Bld) [Ratio] 0 % 0-5 [facility] MCHC Auto (RBC) [Mass/Vol]Or dered By: Valentin Ceballos on 07-25-2023 MCHC (RBC) [Mass/Vol] 32.2 g/dL 32-36 [facility] No Panel InformationOrdered By: Valentin Ceballos on 07-25-2023 Troponin I High Sensitivity 2328 pg/mL 3.0-54.0 [facility] Comment on above: Critical Result(s) C alled at: 21:09:57 07/25/2023 by: Dary Becerra to Kaye Baldwin. Results read back by same. Please Note: New Test Units and Gender Specific Reference Ranges. For more information see Policy Stat Procedure [place] High Sensitivity Troponin (TNIH) and attachments. Estimated Creatinine Clearance Calc 29.36 ml/min [facility] Estimated GFR (MDRD) Amer 47 mL/min >60 [facility] Comment on above: GFR Calc Estimated GFR (MDRD) Non-Af Amer 39 mL/min >60 [facility] Comment on above: Non- GFR Calc Platelets bldOrdered By: Jozef Ceballos on 07-25-2023 Platelets (Bld) [#/Vol] 429 10*3/uL 150-450 [facility] Serum or plasma calcium yamil urement (mass/volume)Ordered By: Valentin Ceballos on 07-25-2023 Calcium [Mass/Vol] 9.3 mg/dL 8.5-10.1 [facility] Serum or plasma creatinine m easurement (mass/volume)Ordered By: Valentin Ceballos on 07-25-2023 Creatinine [Mass/Vol] 1.41 mg/dL 0.55-1.02 [facility] Comment on above: The validity of the calculated GFR & GFRAA in patients over 70 years has not been determined. Clinical correlation is essential. Serum or plasma urea nitroge n measurement (mass/volume)Ordered By: Valentin Ceballos on 07-25-2023 Urea nitrogen [Mass/Vol] 23 mg/dL 7-18 [facility] Thin prep Papanicolaou smear with manual screeningOrdered By: Valentin Ceballos on 07-25-2023 Thin prep Papanicolaou smear with manual screening 10 5-15 [facility] Culture, urineOrdered By: Edith Hargrove on 06-05-2023 Bacteria identified Cx Nom (U) Escherichia coli [facility] Vital Signs Date Time Vital Sign Value Performing Clinician Faci lity 05-17-2025 09:17-0400 Body temperature 98.2 [degF] Dr. Phuc Barker MD Work Phone: [facility] 05-17-2025 09:17-0400 Body weight 74.[address] Phuc Barker MD Work Phone: [facility] 05-17-2025 09:17-0400 Diastolic blood pressure 74 mm[Hg] Dr. Phuc Barker MD Work Phone: [facility] 05-17-2025 09:17-0400 Heart rate 75 /min Dr. Phuc Barker MD Work Phone: [facility] 05-17-2025 09:17-0400 Respiratory rate 17 /min Dr. Phuc Barker MD Work Phone: [facility] 05-17-2025 09:17-0400 SaO2% (BldA) [Mass fraction] 96 % Dr. Phuc Barker MD Work Phone: [facility] 05-17-2025 09:17-0400 Systolic blood pressure 126 mm[Hg] Dr. Phuc Barker MD Work Phone: [facility] 04-20-2025 13:06-0400 Body height 156.2 cm Sultana Garcia Work Phone: [facility] 04-20-2025 13:06-0400 Body mass index (BMI) [Ratio] 29.37 kg/m2 Sultana Garcia Work Phone: [facility] 04-20-2025 13:06-0400 Body temperature 97.9 [degF] Sultana Garcia Work Phone: [facility] 04-20-2025 13:06-0400 Body weight 71.67 kg Sultana Garcia Work Phone: [facility] 04-20-2025 13:06-0400 Diastolic blood pressure 78 mm[Hg] Sultana Garcia Work Phone: [facility] 04-20-2025 13:06-0400 Heart rate 67 /min Sultanajenn Garcia Work Phone: [facility] 04-20-2025 13:06-0400 SaO2% (BldA) [Mass fraction] 95 % Sultanajenn Garcia Work Phone: [facility] 04-20-2025 13:06-0400 Systolic blood pressure 123 mm[Hg] Sultana Garcia Work Phone: [facility] 03-23-2024 14:15-0400 Heart rate 69 /min Casimiro Torrez MD Work Phone: [facility] 03-23-2024 14:15-0400 Respiratory rate 17 /min Casimiro Torrez MD Work Phone: [facility] 03-23-2024 14:15-0400 SaO2% (BldA) [Mass fraction] 98 % Casimiro Torrez MD Work Phone: [facility] 03-23-2024 14:05-0400 Body temperature 97.2 [degF] Casimiro Torrez MD Work Phone: [facility] 03-23-2024 14:05-0400 Diastolic blood pressure 53 mm[Hg] Casimiro Torrez MD Work Phone: [facility] 03-23-2024 14:05-0400 Systolic blood pressure 100 mm[Hg] Casimiro Torrez MD Work Phone: [facility] 12-03-2023 07:53-0400 Heart rate 55 /min Dr. Awa Hargrove Work Phone: [facility] 12-03-2023 07:50-0400 Body temperature 98.2 [degF] Dr. Awa Hargrove Work Phone: [facility] 12-03-2023 07:50-0400 Diastolic blood pressure 44 mm[Hg] Dr. Awa Hargrove Work Phone: [facility] 12-03-2023 07:50-0400 Respiratory rate 16 /min Dr. Awa Hargrove Work Phone: [facility] 12-03-2023 07:50-0400 SaO2% (BldA) [Mass fraction] 96 % Dr. Awa Hargrove Work Phone: [facility] 12-03-2023 07:50-0400 Systolic blood pressure 105 mm[Hg] Dr. Awa Hargrove Work Phone: [facility] 12-02-2023 08:56-0400 Body height 154.[address] Awa Hargrove Work Phone: [facility] 12-02-2023 08:56-0400 Body mass index (BMI) [Ratio] 30.8 kg/m2 Dr. Awa Hargrove Work Phone: [facility] 12-02-2023 08:56-0400 Body weight 74.[address] Awa Hargrove Work Phone: [facility] 12-01-2023 14:15-0400 Body temperature 98 [degF] Dr. Awa Hargrove Work Phone: [facility] 12-01-2023 14:15-0400 Diastolic blood pressure 76 mm[Hg] Dr. Awa Hragrove Work Phone: [facility] 12-01-2023 14:15-0400 Heart rate 48 /min Dr. Awa Hargrove Work Phone: [facility] 12-01-2023 14:15-0400 Respiratory rate 14 /min Dr. Awa Hargrove Work Phone: [facility] 12-01-2023 14:15-0400 SaO2% (BldA) [Mass fraction] 98 % Dr. Awa Hargrove Work Phone: [facility] 12-01-2023 14:15-0400 Systolic blood pressure 128 mm[Hg] Dr. Awa Hargrove Work Phone: [facility] 12-01-2023 10:07-0400 Body height 154.[address] Awa Hargrove Work Phone: [facility] 12-01-2023 10:07-0400 Body mass index (BMI) [Ratio] 30.8 kg/m2 Dr. Awa Hargrove Work Phone: [facility] 12-01-2023 10:07-0400 Body weight 74.[address] Awa Hargrove Work Phone: [facility] 07-27-2023 12:39-0500 Body temperature 97.8 [degF] Dr. Awa Hargrove Work Phone: [facility] 07-27-2023 12:39-0500 Diastolic blood pressure 85 mm[Hg] Dr. Awa Hargrove Work Phone: [facility] 07-27-2023 12:39-0500 Heart rate 76 /min Dr. Awa Hargrove Work Phone: [facility] 07-27-2023 12:39-0500 Respiratory rate 16 /min Dr. Awa Hargrove Work Phone: [facility] 07-27-2023 12:39-0500 SaO2% (BldA) [Mass fraction] 95 % Dr. Awa Hargrove Work Phone: [facility] 07-27-2023 12:39-0500 Systolic blood pressure 143 mm[Hg] Dr. Awa Hargrove Work Phone: [facility] 07-25-2023 22:10-0500 Body height 157.[address] Awa Hargrove Work Phone: [facility] 07-25-2023 22:10-0500 Body mass index (BMI) [Ratio] 28.3 kg/m2 Dr. Awa Hargrove Work Phone: [facility] 07-25-2023 22:10-0500 Body weight 70.[address] Awa Hargrove Work Phone: [facility] 07-25-2023 21:53-0500 Body temperature 98.2 [degF] [facility] 07-25-2023 21:53-0500 Diastolic blood pressure 92 mm[Hg] [facility] 07-25-2023 21:53-0500 Heart rate 61 /min [facility] 07-25-2023 21:53-0500 Respiratory rate 20 /min [facility] 07-25-2023 21:53-0500 SaO2% (BldA) [Mass fraction] 96 % [facility] 07-25-2023 21:53-0500 Systolic blood pressure 182 mm[Hg] [facility] 07-25-2023 17:02-0500 Body height 157.[address] [facility] 07-25-2023 17:02-0500 Body mass index (BMI) [Ratio] 29.5 kg/m2 [facility] 07-25-2023 17:02-0500 Body weight 73.[address] [facility] Encounters Encounter Date Encounter Type Care Provider Facility Start: 06-03-2025 ambulatory [facility] Facility:[facility] Start: 06-01-2025 ambulatory [facility] Facility:[facility] Start: 05-17-2025 End: 05-17-[address] Phuc Barker MD Work Phone: -[facility] Start: 05-17-2025 End: 05-17-[address] Giovanny Brady MD -[facility] Work Phone: Start: 05-17-2025 End: 05-17-[address] Giovanny Brady MD -[facility] Work Phone: Start: 05-17-2025 End: 05-17-[address] Phuc Barker MD Work Phone: -[facility] Start: 05-17-2025 End: 05-17-2025 ambulatory Phuc Barker Facility:[facility] Start: 05-14-2025 End: 05-14-2025 ambulatory [facility] Start: 05-04-2025 ambulatory Phuc Barker Facility:[facility] Start: 05-04-[address] Ebonie Chang MD -[facility] Start: 04-29-2025 End: 04-29-2025 Telephone encounter Sultana Garcia Work Phone: Hematology/Oncology Start: 04-22-2025 End: 04-22-2025 Telephone encounter Sultana Garcia Work Phone: Hematology/Oncology Comment on above: Electronic Communica tion Start: 04-20-2025 End: 04-20-2025 Patient encounter procedure Sultana Garcia Work Phone: Hematology/Oncology Start: 04-20-2025 End: 04-20-2025 ambulatory Sultana Garcia Work Phone: Hematology/Oncology Comment on above: Anemia, unspecified type (Primary Dx) Start: 04-06-[facility] Start: 04-06-[address] Devendra delacruz MD [facility] Start: 03-30-2025 [facility] Start: 03-30-[address] Devendra delacruz MD [facility] Start: 02-12-2025 [facility] Start: 02-12-[address] Devendra delacruz MD [facility] Start: 01-13-2025 End: 01-13-[address] Phuc Barker MD Work Phone: [facility] Work Phone: Start: 01-13-2025 End: 01-13-[address] Johana Landrum MD [facility] Start: 01-13-2025 End: 01-13-2025 ambulatory Johanajosé manuel MCCLELLAND Facility:[facility] Start: 12-02-2024 End: 12-02-[address] Johana Landrum MD -[facility] Start: 12-02-[address] Johana Landrum MD [facility] Start: 12-02-2024 End: 12-02-2024 ambulatory Johana MCCLELLAND Facility:[facility] Start: 11-30-2024 End: 11-30-[address] Phuc Barker MD Work Phone: [facility] Work Phone: Start: 11-30-2024 End: 11-30-[address] Johana Landrum MD [facility] Start: 11-30-2024 End: 11-30-2024 ambulatory Johana MCCLELLAND Facility:[facility] Start: 11-12-2024 End: 11-12-2024 ambulatory [facility] Start: 09-21-2024 End: 09-21-[address] Johana Landrum MD -[facility] Start: 09-21-2024 End: 09-21-2024 ambulatory Phuc Barker Facility:[facility] Start: 08-31-2024 End: 08-31-[address] Johana Landrum MD -[facility] Start: 08-31-2024 End: 08-31-2024 ambulatory Johana MCCLELLAND Facility:[facility] Start: 08-27-2024 End: 08-27-2024 Departed Referred [facility] Start: 08-27-2024 End: 08-27-2024 ambulatory Phuc Barker Facility:[facility] Start: 07-24-2024 End: 07-24-2024 Emergency department patient visit Phuc Barker Facility:[facility] Start: 07-16-2024 ambulatory Phuc Barker [facility] Start: 07-16-[facility] Start: 07-16-2024 End: 07-22-2024 Evaluation and management of inpatient Adams Gerson Facility:[facility] Start: 06-26-2024 ambulatory Awa Hargrove Facility:[facility] Start: 06-22-2024 End: 06-22-2024 ambulatory Renita Knott [employer]PER[employer]OR[employer] Work Phone: [facility] Comment on above: CoPat Start Start: 06-20-2024 End: 06-20-2024 Orders Only Becca Garcia PA-C Work Phone: [facility] Comment on above: SDH (subdural hemato ma) (HCC) (Primary Dx) Start: 03-23-2024 End: 03-23-2024 Orders Only Casimiro Torrez MD Work Phone: [facility] Comment on above: Duodenal ulcer with hemorrhage [K26.4] Start: 03-23-2024 End: 03-23-2024 Preprocedural examination done Casimiro Torrez MD Work Phone: [facility] Start: 03-06-2024 End: 03-06-2024 Subsequent hospital visit by physician [facility] Cat Scan Comment on above: Duodenal ulcer with hemorrhage [K26.4] Start: 12-03-2023 Non-patient / Non-visit Dr. Edith Hargrove Work Phone: [facility] Inpatient Physicians Work Phone: Start: 12-03-2023 Non-patient / Non-visit Dr. Edith Hargrove Work Phone: [facility] Start: 12-02-2023 Non-patient / Non-visit Dr. Edith Hargrove Work Phone: [facility] Work Phone: Start: 12-02-2023 Non-patient / Non-visit Dr. Edith Hargrove Work Phone: [facility] Start: 12-01-2023 End: 12-03-2023 Evaluation and management of inpatient Dr. Awa Hargrove Work Phone: [facility]-Medical Surgical 3 Work Phone: Start: 12-01-2023 Non-patient / Non-visit Dr. Edith Hargrove Work Phone: [facility] Work Phone: Start: 10-25-2023 End: 10-25-[address] Awa Hargrove Work Phone: [facility]-Speech Therapy Work Phone: Start: 09-16-2023 End: 09-16-[address] Awa Hargrove Work Phone: [facility] Work Phone: Start: 09-16-2023 End: 09-16-[address] Awa Hargrove Work Phone: [facility]-Radiology, [facility] Work Phone: Start: 07-29-2023 Non-patient / Non-visit Dr. Edith Hargrove Work Phone: [facility] Start: 07-27-2023 Non-patient / Non-visit Dr. Edith Hargrove Work Phone: [facility] Inpatient Physicians Work Phone: Start: 07-26-2023 Non-patient / Non-visit Dr. Edith Hargrove Work Phone: [facility] Start: 07-26-2023 Non-patient / Non-visit Dr. Edith Hargrove Work Phone: [facility] Physicians Work Phone: Start: 07-25-2023 End: 07-25-2023 Non-patient / Non-visit Dr. Awa Hargrove Work Phone: [facility] Inpatient Physicians Work Phone: Start: 07-25-2023 End: 07-27-2023 Evaluation and management of inpatient [facility]-Progressive Care Unit Work Phone: Start: 06-05-2023 End: 06-05-2023 Patient encounter procedure [facility]-Laboratory, Specimen Work Phone: Start: 10-20-2021 End: 10-20-2021 Discharged Recurring [facility]-Physical Therapy Procedures Date Procedure Procedure Detail Performing Clinician Start: 06-01-[address] Phuc Barker MD Work Phone: Start: 05-17-[address] Phuc Barker MD Work Phone: Comment on above: Performed at: [address] [id number] Director: Rk Petty MD, Phone: [phone] at: [address] [id number] Director: Hussein Aguilar PhD, Phone: [phone] Start: 05-17-2025 Antibody to centromere measurement Dr. El Barker MD Work Phone: Comment on above: Test not performed Start: 05-17-2025 Antibody to extractable nuclear antigen measurement Dr. Phuc Barker MD Work Phone: Comment on above: Test not performed Start: 05-17-2025 Antibody to TAJ-[address] Phuc goledn MD Work Phone: Comment on above: Test not performed Start: 05-17-2025 Antibody to lupus La protein measurement Dr. Phuc Barker MD Work Phone: Comment on above: Test not performed Start: 05-17-2025 Antibody to SS-A measurement Dr. Phuc golden MD Work Phone: Comment on above: Test not performed Start: 05-17-[address] Phuc rae MD Work Phone: Comment on above: Test not performed Start: 05-17-2025 Folic acid measurement, RBC Dr. Phuc dotson MD Work Phone: Start: 05-17-2025 SKEINS YARN EXAMINER antibody measurement Dr. Phuc rae MD Work Phone: Comment on above: Test not performed Start: 05-17-2025 Urine lambda light chain measurement Dr. Phuc Barker MD Work Phone: Start: 05-17-[address] Phuc Barker MD Work Phone: Comment on above: Verified by repeat analysis Deficien cy: <3.4 Marginal: 3.4 - 5.1 Adequate: >5.1 Start: 05-04-2025 Serum inorganic phosphate measurement Dr. Phuc Barker MD Work Phone: Start: 04-06-2025 Serum inorganic phosphate measurement Dr. Phuc Barker MD Work Phone: Start: 03-30-[address] Phuc Barker MD Work Phone: Start: 03-30-2025 Urnls dip stick/tablet reagent auto microscopy Dr. Phuc Barker MD Work Phone: Start: 01-13-2025 Vitamin D, 25-hydroxy measurement Dr. Justus Barker [...] RSV Vaccine (1 - 1-dose 75+ series) [facility] Start: 04-20-2028 Diabetes Screening Diabetes Screening [facility] Start: 08-27-2027 Screening for malignant neoplasm of colon [facility] Start: 06-22-2027 Diabetes Screening Diabetes Screening [facility] Start: 06-20-2027 Diabetes Screening Diabetes Screening [facility] Start: 03-02-2027 Diabetes Screening Diabetes Screening [facility] Start: 07-30-2025 End: 10-29-2025 CBC W Auto Differential panel - Blood COMPLETE BLOOD COUNT AND DIFFERENTIAL Lab STAT 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, not on chronic dialysis (HCC) Expected: 07/30/2025 (Approximate), Expires: 10/29/2025 [facility] Work Phone: Comment on above: Expected: 07/30/2025 (Approximate), Expi res: 10/29/2025 Start: 06-15-2025 Hepatitis B Vaccine (3 of 3 - Risk Dialysis Recombivax 3-dose series) Hepatitis B Vaccine (3 of 3 - Risk Dialysis Recombivax 3-dose series) [facility] Start: 06-01-2025 Registered Referred Registered Referred -[facility] Start: 05-18-2025 Electroencephalogram [facility] Start: 05-03-2025 Influenza vaccination Influenza Vaccine (#1) [facility] Start: 03-03-2025 Lipid panel Lipid Screening [facility] Start: 09-02-2024 Advance Directive Discussion Advance Directive Discussion [facility] Start: 09-02-2024 Medicare Advantage Annual Wellness Visit Medicare Advantage Annual Wellness Visit [facility] Start: 07-23-2024 End: 07-23-2024 Patient encounter procedure 07/23/2024 1:30 PM EST Office Visit [facility] [address] [facility] [place] [id number] Sosa Salas APRN.SIGN MAKER [address] [place] [address] SDH (subdural hematoma) (HCC) [S06.5XAA [facility] Comment on above: SDH (subdural hematoma) (HCC) [S06.5XAA Start: 07-20-2024 End: 07-20-2024 Patient encounter procedure 07/20/2024 11:00 AM EST Appointment [facility] [address] [place] [phone] SDH (subdural hematoma) (HCC) [S06.5XAA [facility] Comment on above: SDH (subdural hematoma) (HCC) [S06.5XAA Start: 05-03-2024 Covid-19 Vaccine ( season) Covid-19 Vaccine ( season) [facility] Start: 05-03-2024 Influenza vaccination Influenza Vaccine (#1) [facility] Start: 04-13-2024 End: 04-13-2024 Admission to same day surgery center 04/13/2024 11:30 AM EDT [facility] GENERAL SURGERY DEPARTMENT [address] [facility] [address] [place] [address] Jules Alvarez MD [address] [place] [address] Go Over EGD/ CT Scan 03/[address] [facility] GENERAL SURGERY DEPARTMENT Comment on above: Go Over EGD/ CT Scan 03/06 Start: 03-30-2024 End: 03-30-2024 Admission to same day surgery center 03/30/2024 11:00 AM EDT [facility] GENERAL SURGERY DEPARTMENT [address] [facility] 3rd Floor [place], [place] [id number] Jules Alvarez MD [address] [place] [address] Go Over EGD/ CT Scan 03/06 [facility] SURGERY DEPARTMENT Comment on above: Go Over EGD/ CT Scan 03/06 Start: 03-23-2024 End: 03-23-2024 Patient encounter procedure 03/23/2024 8:00 AM EDT Appointment [facility] [address] [place] [address] Jules Alvarez MD [address] [place] [address] [facility] Start: 12-05-2023 Blood chemistry [facility] Start: 12-04-2023 Blood chemistry [facility] Start: 12-03-2023 Patient discharge [facility] Start: 12-02-2023 Electrocardiographic monitoring [facility] Start: 12-01-2023 Ambulation without limitation [facility] Start: 12-01-2023 Assessment of risk of venous thromboembolism [facility] Start: 12-01-[address] [facility] Start: 12-01-2023 Insertion of catheter into peripheral vein [facility] Start: 12-01-2023 Providing care according to standard [facility] Start: 12-01-2023 Referral to general surgeon [facility] Start: 12-01-2023 [facility] Start: 12-01-2023 Verification routine [facility] Start: 12-01-2023 Admission procedure [facility] Start: 12-01-2023 Hospital admission, emergency, from emergency room, medical nature [facility] Start: 09-02-2023 Advance Directive Discussion Advance Directive Discussion [facility] Start: 09-02-2023 Behavioral Health Screening Behavioral Health Screening [facility] Start: 07-29-2023 Patient referral [facility] Work Phone: Start: 07-27-2023 Patient discharge [facility] Start: 07-26-2023 Notification of physician [facility] Start: 07-26-2023 Patient education [facility] Start: 07-26-2023 Provision of activity privileges [facility] Start: 07-26-2023 Pulse taking [facility] Start: 07-26-2023 Taking patient vital signs [facility] Start: 07-26-2023 Wound care [facility] Start: 07-26-2023 [facility] Start: 07-26-2023 Ultrasonography of breast Breast Limited Unilateral [facility] Start: 07-26-2023 US Breast limited [facility] Start: 07-26-2023 Referral to presser first [facility] Start: 07-26-2023 Admission procedure [facility] Start: 07-25-2023 End: 07-26-2023 Measuring intake and output [facility] Start: 07-25-2023 End: 07-26-2023 Providing care according to standard [facility] Start: 07-25-2023 Application of intermittent pneumatic compression device [facility] Start: 07-25-2023 Oxygen therapy [facility] Start: 07-25-2023 Tobacco use cessation education [facility] Start: 07-25-2023 Provision of activity privileges [facility] Start: 07-25-2023 Assessment of risk of venous thromboembolism [facility] Start: 07-25-2023 End: 07-26-2023 Insertion of catheter into peripheral vein [facility] Start: 07-25-2023 End: 07-25-2023 [facility] Start: 07-25-2023 Following clinical pathway protocol [facility] Start: 07-25-2023 Partial thromboplastin time, activated [facility] Start: 07-25-2023 Prothrombin time [facility] Start: 07-25-2023 Hospital admission, emergency, from emergency room, medical nature [facility] Start: 07-25-2023 End: 07-26-2023 [facility] Start: 05-03-2023 Covid-19 Vaccine ( season) Covid-19 Vaccine () [facility] Start: 03-03-2021 Hepatitis B surface antibody level LDL Cholesterol [facility] Start: 2018 Pneumococcal Vaccine: 65+ (1 of 1 - PCV) Pneumococcal Vaccine: 65+ (1 of 1 - PCV) [facility] Start: 2018 Screening for osteoporosis Bone Density Screening [facility] Start: 2013 RSV Vaccine (1 - 1-dose 60+ series) RSV Vaccine (1 - 1-dose 60+ series) [facility] Start: 2003 Pneumococcal Vaccine: 50+ (1 of 1 - PCV) Pneumococcal Vaccine: 50+ (1 of 1 - PCV) [facility] Start: 2003 Shingrix Vaccine (1 of 2) Shingrix Vaccine (1 of 2) [facility] Start: 1998 Screening for malignant neoplasm of colon [facility] Start: 1993 Screening for malignant neoplasm of breast Mammogram Screening [facility] Start: 1972 Urine microalbumin profile DTaP,Tdap,Td Vaccine (1 - Tdap) [facility] Start: 1971 Annual PCP Team Chronic Disease Visit Annual PCP Team Chronic Disease Visit [facility] Start: 1971 Anxiety Screening Anxiety Screening [facility] Start: 1971 BP Controlled (<130/80) BP Controlled (<130/80) [facility] Start: 1971 Depression Screening Depression Screening [facility] Start: 1971 Hepatitis C screening Hepatitis C Screening [facility] Start: 1959 Pneumococcal Vaccine: 65+ (1 of 2 - PCV) Pneumococcal Vaccine: 65+ (1 of 2 - PCV) [facility] Blood ammonia measurement [facility] CT Abdomen and Pelvi s W contrast IV CT ABD/PEL W IVCON Radiology Routine Duodenal ulcer with hemorrhage 03/06/2024 12:15 PM EDT [facility] Work Phone: End: 07-20-2025 CT Head WO contrast CT BRAIN WO IVCON Radiology Routine SDH (subdural hematoma) (HCC) 1 Occurrences starting 06/20/2024 until 07/20/2025 [facility] Work Phone: Comment on above: 1 Occurrences starting 06/20/2024 until 07/20/2025 Cytoplasmic ANCA Screen [facility] Erythrocyte mean cor puscular volume determination [facility] Erythrocyte mean cor puscular volume determination [facility] Erythrocyte sediment ation rate [facility] Ferritin [Mass/volum e] in Serum or Plasma [facility] Folic acid measurement, RBC [facility] Hematocrit [Volume F raction] of Blood [facility] Hematocrit [Volume F raction] of Blood [facility] Hemoglobin [Mass/vol ume] in Blood [facility] Hemoglobin [Mass/vol ume] in Blood [facility] INR in Blood by Coag ulation assay [facility] Iron [Mass/mass] in Unspecified specimen [facility] Leukocytes [#/volume ] in Blood [facility] Leukocytes [#/volume ] in Blood [facility] Magnesium measurement [facility] Mean corpuscular hem oglobin concentration determination [facility] Mean corpuscular hem oglobin concentration determination [facility] Mean corpuscular hem oglobin determination [facility] Mean corpuscular hem oglobin determination [facility] MR Brain WO contrast [facility] MR Cervical spine [facility] Neutrophil count [facility] Neutrophil count [facility] Neutrophil percent differential count [facility] Neutrophil percent differential count [facility] Patient referral [facility] Work Phone: Platelets [#/volume] in Blood [facility] Platelets [#/volume] in Blood [facility] Red blood cell count [facility] Red blood cell count [facility] Red cell distributio n width determination [facility] Red cell distributio n width determination [facility] SURGICAL PATHOLOGY SURGICAL PATH OLOGY Lab Routine Duodenal ulcer with hemorrhage Release Upon Ordering for 1 Occurrences starting 03/23/2024 [facility] Work Phone: Comment on above: Release Upon Ordering for 1 Occurrences starting 03/23/2024 Thiamine measurement [facility] Thyroid stimulating hormone measurement [facility] Vitamin B12 measurement [facility] Vitamin B6 measurement [facility] Vitamin D, 1,25-dihy droxy measurement [facility] Immunizations Immunization Date Immunization Notes Care Provider Anni nicolas 06-15-2024 Hepatitis B vaccine (recombinant), CpG adjuvanted Becca Garcia PA-C Work Phone: [facility] 05-11-2024 Hepatitis B vaccine (recombinant), CpG adjuvanted Becca Garcia PA-C Work Phone: [facility] Payers Date Payer Category Payer Medicare (Managed Care) TANA Hyun GREG ADVANTAGE HMO Member Subscriber Plan / Payer (Effective 2024-Present) Name: Zahida Beltre Relation to Subscriber: Self Name: Zahida Beltre Payer ID: [id number] (NAIC) Group ID: [id number] Type: HMO Address: [address] [place] [id number] 2024 Medicaid [id number] 2024 Self-pay [id number] 2023 Unknown TANA [facility] MEDICARE ADVANTAGE O [id number] 2023-Present [phone] [address] [place] [address] [facility] [id number] 2023 Medicare [id number] 1955 Unknown [id number]. 1244 1955 Unknown [id number] .840.1.415416.3.579.2. 1244 Medicare [id number] Unknown [id number] Unknown [id number] 2.840.1.258585.3.579.2. 462 Unknown [id number] 2.840.1.808776.3.579.2. 462 Unknown [id number] 2.16.840.1.785875.3.579.2. 462 Unknown [id number] 2.16.840.1.482972.3.579.2. 462 Unknown [id number] 2.16.840.1.167222.3.579.2. 462 Unknown [id number] 2.16.840.1.002200.3.579.2. 462 Unknown [id number] 2.16.840.1.037137.3.579.2. 462 Unknown [id number] 2.16.840.1.633492.3.579.2. 462 Unknown [id number] 2.16.840.1.448363.3.579.2. 462 Unknown [id number] 2.16840.1.031808.3.579.2. 462 Unknown [id number] 2.840.1.033058.3.579.2. 462 Unknown [id number] 2.16840.1.660446.3.579.2. 462 Unknown [id number] 2.16.840.1.772461.3.579.2. 462 Unknown [id number] 2.16840.1.365821.3.579.2. 462 Unknown [id number] 2.16840.1.392253.3.579.2. 462 Unknown [id number] 2.16840.1.931341.3.579.2. 462 Unknown [id number] 2.16.840.1.189773.3.579.2. 462 Unknown [id number] 2.16.840.1.198517.3.579.2. 462 Unknown [id number] 2.16.840.1.490015.3.579.2. 462 Unknown [id number] 2.16.840.1.415895.3.579.2. 462 Unknown [id number] 2.16.840.1.289772.3.579.2. 462 Unknown [id number] 2.16.840.1.422966.3.579.2. 462 Unknown [id number] 2.16.840.1.585700.3.579.2. 462 Unknown [id number] 2.16.840.1.875841.3.579.2. 462 Social History Date Type Detail Facility Start: 09-22-2021 End: 12-01-2023 Tobacco smoking status INIS Unknown if ever smoked [facility] Start: 1955 Sex Assigned At Female [facility] Start: 02-19-2024 End: 07-24-2024 Tobacco smoking status NHIS Never smoked tobacco [facility] Start: 02-19-2024 Tobacco use and exposure Smokeless tobacco non-user [facility] Start: 02-19-2024 End: 04-20-2025 Alcohol intake Ex-drinker (finding) [facility] Start: 02-19-2024 End: 02-25-2024 History of Social function [facility] Start: 02-19-2024 End: 02-25-2024 Tobacco use panel [facility] Start: 12-18-2023 National Score (1-100), lower number is lower risk 96 [facility] Start: 1955 Sex Assigned At Not on file [facility] Start: 12-15-2024 Sex Female (finding) [facility] NEGATED: Highlighted row [facility] Goals Date Patient Goal Desired Activity /State Functional Status Date Assessment Result Facility 06-24-2024 Are you deaf, or do you have serious difficulty hearing No 06/24/2024 3:21 PM Marisela Thompson RN No [facility] 06-24-2024 Are you blind, or do you have serious difficulty seeing, even when wearing glasses No 06/24/2024 3:21 PM Marisela Thompson RN No [facility] 06-24-2024 Do you have serious difficulty walking or climbing stairs Yes 06/24/2024 3:21 PM Marisela Thompson RN Yes [facility] 06-24-2024 Do you have difficul ty dressing or bathing Yes 06/24/2024 3:21 PM EDT Marisela Lamar RN Yes [facility] 06-24-2024 Because of a physica l, mental, or emotional condition, do you have difficulty doing errands alone such as visiting a physician's office or shopping Yes 06/24/2024 3:21 PM EDT Marisela Lamar RN Yes [facility] 12-03-2023 Functional status Bathroom Privilege [facility] Work Phone: 07-27-2023 Functional status Ambulates;Bath room Privilege [facility] Work Phone: Mental Status Date Assessment Result Facility 06-24-2024 Because of a physica l, mental, or emotional condition, do you have serious difficulty concentrating, remembering, or making decisions No 06/24/2024 3:21 PM EDT Marisela Lamar RN No [facility] 12-02-2023 Cognitive function Voice/Name [facility] Work Phone: 07-27-2023 Cognitive function Awake;Alert;A ppropriate; Follows Commands [facility] Work Phone: 07-27-2023 Cognitive function Voice/Name [facility] Work Phone: 07-25-2023 Cognitive function Voice/Name [facility] Work Phone: Clinical Notes 07-25-2023 to 05-17-2025 Note Date & Type Note Facility 05-17-2025 Evaluation note Diagnosis Onset Date Resolution Abnormal gait acute May 032024 9:05am Anemia acute May 9:05am Dementia acute May 9:05am Neck pain acute May 9:05am Chronic intracranial subdural hematoma chronic May 9:05am [facility] Work Phone: 1(775) 380-822708-28-2025 Telephone encounter Note* Telephone Encounter - Jazzy Arciniega LPN - 04/29/2025 2:51 PM EDT I called and spoke to Hope, patient's nurse at [facility]. Patient is scheduled to see nephrology in early June. She also has a CBC drawn every 28 days; Hope will fax the results in July (3 month CBC). Jazzy Arciniega LPN [facility]08-28-2025 Miscellaneous Notes* Telephone Encounter - Jazzy Arciniega LPN - 04/29/2025 2:51 PM EDT I called and spoke to Hope, patient's nurse at [facility]. Patient is scheduled to see nephrology in early June. She also has a CBC drawn every 28 days; Hope will fax the results in July (3 month CBC). Jazzy Arciniega LPN * Telephone Encounter - Sultana Garcia - 04/29/2025 2:37 PM EDT Labs reviewed. Hgb has improved at this time to 10.3. No iron deficiency. Kidney function appears to be worsening.At this time she is not a candidate for GURPREET or IV iron. Recommend continuing to follow up with nephrology. Plan to recheck CBC in 3 months for stability. (Orders entered) Pt currently resides in [facility]. I attempted to reach spouse number rang busy. No answeron daughter Jeanette's phone (she was present for appt) Case and labs reviewed with Dr Vivas. Sultana Garcia APRN.SIGN MAKER documented in this encounterNationwide [facility]08-28-2025 Telephone encounter Note * Telephone Encounter - Sultana Garcia - 04/29/2025 2:37 PM EDT Labs reviewed. Hgb has improved at this time to 10.3. No iron deficiency. Kidney function appears to be worsening.At this time she is not a candidate for GURPREET or IV iron. Recommend continuing to follow up with nephrology. Plan to recheck CBC in 3 months for stability. (Orders entered) Pt currently resides in [facility]. I attempted to reach spouse number rang busy. No answeron daughter Jeanette's phone (she was present for appt) Case and labs reviewed with Dr Vivas. Sultana Garcia APRN.SIGN MAKER [facility]08-21-2025 Telephone encounter Note* Telephone Encounter - Radha Nichols LPN - 04/22/2025 11:06 AM EDT Labs faxed as directed. Radha Nichols LPN [facility]08-21-2025 Miscellaneous Notes* Telephone Encounter - Radha Nichols LPN - 04/22/2025 11:06 AM EDT Labs faxed as directed. Radha Nichols LPN * Telephone Encounter - Yazmin Medel - 04/22/2025 10:24 AM EDT Please fax 04/20 lab results to [facility] at [phone] documented in this encounterNationwide [facility] Hospital08-21-2025 Telephone encounter Note * Telephone Encounter - Yazmin Medel - 04/22/2025 10:24 AM EDT Please fax 04/20 lab results to [facility] at [phone] [facility] Work Phone: 1(245) 894-380908-19-2025 Instructions* Patient Instructions* Sultana Garcia - 04/20/2025 2:09 PM EDT Labs today Follow up pending labs for possible IV iron and aranesp injection documented in this encounterNationwide Children'S Hospital08-19-2025 NoteHNO ID: [id number] Author: SULTANA GARCIA, ? Service: ? Author [...] daughter Jeanette as a referral from her systems coordinator for management of anemia. She is a poor historian, rather tangential. Currently resides in a care home facility since last year. Per chart [...] daily at bedtime. sodium phosphate,mono-dibasic (FLEET ENEMA VA) 1 suppository by RECTAL route as needed. [...] bedtime. (Patient not taking (more content not included)...[facility]08-19-2025 History of Present illness Narrative* Sultana Garcia - 04/20/2025 1:06 PM EDT Progress Note Zahida Beltre 1955 Encounter date: 04/20/2025 HPI: Zahida Beltre is a 69 year old female with extensive PMH of Kidney failure hx of dialysis for about 6 - 8 months, CAD, subdural hematoma, HTN, Chronic anemia. She presents today with her daughter Jeanette as a referral from her systems coordinator for management of anemia. She is a poor historian, rather tangential. Currently resides in a care home facility since last year. Per chart [...] Food provided by facility. She states she wasnot eating much when she first got there [...] daily at bedtime. sodium phosphate,mono-dibasic (FLEET ENEMA VA) 1 suppository by RECTAL route as needed. [...] and take as directed. (Patient not taking: Reportedon 04/20/2025) pantoprazole DR (PROTONIX) 40 mg tablet [...] mouth three times a day. (Patient not taking:Reported on 04/20/2025) lisinopril (ZESTRIL) 40 mg tablet [...] 67 Temp (Src) 97.9 (Temporal) Ht 5' 1.5" (1.56m) Wt 158 lb (71.7kg) SpO2 95% [...] as a new anemia referral by her systems coordinator Dr Marie Anemia, chronic - likely multifactorial [...] IV iron and aranesp injection Sultana Garcia APRN.SALVATORE I spent a total of 60 minutes on the date of the service which included preparing to see the patient, [id number] patient care, completing clinical documentation, obtaining and/or [...] Drug use: Not Currently documented in this encounterNationwide [facility] Hospital11-20-2024 [facility]10-21-2024 History of Present illness Narrative* Renita Knott APRN.SIGN MAKER - 06/22/2024 3:43 PM EDT [facility] Outpatient Parenteral Antimicrobial Therapy (OPAT) Start Form Patient Info Patient MRN Patient Name Address Date of [id number] Kary Haddad [address] [facility] [id number] 1955 Start Date 06/22/2024 Physician Group [id number] [...] Treatment Course Kee Singh III, MD Address [address] [place] [address] documented in this encounterNationwide Children'S Hospital07-22-2024 History and physical note * Noemy Jaramillo APRN.SIGN MAKER - 03/23/2024 12:25 PM EDT HISTORY AND PHYSICAL EXAMINATION SERVICE DATE: 03/23/2024 [...] Hemorrhage Pre-Op Examination Coronary Artery Disease Involving Jackson Coronary Artery of [place] Heart Without Angina Pectoris Htn (Hypertension) Mixed Hyperlipidemia Subjective CHIEF COMPLAINT: Preoperative Examination HPI: Patient present to [facility] for the above procedure. Patient here for routine Upper GI Endoscopy screening. Patient had an EGD in December in [place]. This demonstrated an adrenal nodule that was [...] Once exam is complete flush line and de-accessaccording to line specific nursing protocol in the [...] CP and palpitations. +HTN +HLD +hx of [place] +CAD GI: See HPI. : Denies dysuria. [...] within date range. No results found for: "HBA1C" Assessment/Plan Patient has the following medical conditions which may affect marco-operative course Problem List Items Addressed This Visit Cardiovascular Mixed hyperlipidemia Current Assessment & Plan Fenofibrate- last dose taken today. Continue as prescribed. HTN (hypertension) Current Assessment & Plan Lisinopril, Clonidine, Spironolactone, and Metoprolol- last doses taken today. Continue as prescribed. Coronary artery disease involving [place] coronary artery of [place] heart without angina pectoris Current Assessment & Plan OK in 07/2023. No cardiac stents. Does not follow with cardiology. Managed by PCP. Patient has all medical care in [place]- unable to access any cardiac imaging through [facility] or Care Everywhere. Gastrointestinal Duodenal ulcer with [...] which included preparing to see the patient, [id number] patient care, completing clinical documentation, and performing a medically appropriate examination. Instructions Given to Patient: Patient given verbal preop instructions and voices comprehension and compliance. SIGNATURE: Noemy Jaramillo APRN.CNP PATIENT NAME: Kary Haddad DATE: March 23, 2024 TIME: 10:48 AM PAGER/CONTACT #: [facility]07-22-[facility] History and physical note* Noemy Jaramillo APRN.CNP - 03/23/2024 12:25 PM EDT HISTORY AND PHYSICAL EXAMINATION SERVICE DATE: 03/23/2024 [...] Hemorrhage Pre-Op Examination Coronary Artery Disease Involving Jackson Coronary Artery of Jackson Heart Without Angina Pectoris Htn (Hypertension) Mixed Hyperlipidemia Subjective CHIEF COMPLAINT: Preoperative Examination HPI: Patient present to [facility] for the above procedure. Patient here for routine Upper GI Endoscopy screening. Patient had an EGD in December in [place]. This demonstrated an adrenal nodule that was [...] Once exam is complete flush line and de-accessaccording to line specific nursing protocol in the [...] CP and palpitations. +HTN +HLD +hx of OK +CAD GI: See HPI. : Denies dysuria. [...] within date range. No results found for: "HBA1C" Assessment/Plan Patient has the following medical conditions which may affect marco-operative course Problem List Items Addressed This Visit Cardiovascular Mixed hyperlipidemia Current Assessment & Plan Fenofibrate- last dose taken today. Continue as prescribed. HTN (hypertension) Current Assessment & Plan Lisinopril, Clonidine, Spironolactone, and Metoprolol- last doses taken today. Continue as prescribed. Coronary artery disease involving [place] coronary artery of [place] heart without angina pectoris Current Assessment & Plan OK in 07/2023. No cardiac stents. Does not follow with cardiology. Managed by PCP. Patient has all medical care in [place]- unable to access any cardiac imaging through [facility] or Care Everywhere. Gastrointestinal Duodenal ulcer with [...] which included preparing to see the patient, [id number] patient care, completing clinical documentation, and performing a medically appropriate examination. Instructions Given to Patient: Patient given verbal preop instructions and voices comprehension and compliance. SIGNATURE: Noemy Jaramillo APRN.SIGN MAKER PATIENT NAME: Kary Haddad DATE: March 23, 2024 TIME: 10:48 AM PAGER/CONTACT #: [facility] History of Present illness Narrative* Didi Merrill RT(R) - 03/06/2024 11:00 AM EDT Radiology Service Progress Note DATE OF SERVICE: [...] PATIENT PRESENTS WITH AN IMPLANTABLE OR ATTACHED BRATTICE BUILDER: No ALLERGIES: Reviewed and unchanged CONTRAST ALLERGY: [...] creatinine assay has traceable calibration to isotope dilution- mass spectrometry. Refer to KDIGO guidelines for clinical interpretation. In patients with unstable renal function, e.g. those with acute kidney injury, the eGFRmay not accurately reflect actual GFR. P.O.C.T. RESULTS: POC done: Yes, See Lab Tab March 06, 2024 TREATMENT: N/A PERIPHERAL IV DATA: Ambulatory: A peripheral IV was started in the Left antecubital site with a Angio cath: 22 gauge. RADIOLOGY DEPARTMENT: CT; Exam(s) Completed: Abdomen/Pelvis SIGNATURE: RT Anton(Spencer) PATIENT NAME: Kary Haddad DATE: March 06, 2024 TIME: 4:12 PM documented in this encounterNation[facility] Consult note Author Bhaskar Grimes [facility] December 03, 2023 10:02am Note Date/Time December 03, 2023 10:0 2am [facility] Medical Records Department [address] [place] [address] Counseling Note - Pharmacy 12/03/23 1002 MR#: [id number] Acct: [id number] Name: KARY HADDAD Rep #:[id number] : 1955 68 From: Bhaskar Grimes PCP: Dr. Awa Hargrove, DO Status:ADM IN Y Location: [place] [address] [facility] Service has performed discharge [...] Bhaskar Grimes Cosigner Signature (if applicable): Date _ CC: ~ Signed [facility] Work Phone: 1(835) 827-176104-02-2024 Discharge summary Author Ronald Lowe [facility] December 03, 2023 8:59am Note Date/Time December 03, 2023 8:56 am [facility] Medical Records Department [address] [place] [address] Discharge Summary 12/03/23 0854 MR#: [id number] Acct: [id number] Name: KARY HADDAD Rep #:[id number] : 1955 68 From: Ronald Lowe MD PCP: Dr. Awa Hargrove DO Status:ADM [facility] Prov[facility] Date of Admission: 12/01/23 Date of [...] % (Auto) 57.9, Lymph % (Auto) 26.7, Monroe % (Auto) 9.9, Eos % (Auto) 4.4, [...] Self Care Charges/Coding Visit Charges Inpatient E&M: 61342 Disch Hosp >30min 12/03/23 0859 <Electronically signed by Ronald Loew MD> Cosigner Signature (if applicable): CC: Dr. Ronald Lowe MD; Dr. Awa Hargrove DO~ Signed [facility] Work Phone: 1(520) 967-610804-02-2024 Progress note Author Jules Hudson [facility] December 03, 2023 7:00am Note Date/Time December 03, 2023 7:01 am [facility] Medical Records Department [address] [place] [address] Progress Note - Surgery 12/03/23 0659 MR#: [id number] Acct: [id number] Name: KARY HADDAD Rep #:[id number] : 1955 68 From: Jules pope MD PCP: Dr. Awa Hargrove DO Status:ADM IN Location: [facility] PQ625-0 Subjective Subjective The patient reported that she [...] % (Auto) 57.9, Lymph % (Auto) 26.7, Monroe % (Auto) 9.9, Eos % (Auto) 4.4, [...] to tertiary care. Jules Hudson MD Pager: [facility] [address], [address] [place] [address] Office: 12/03/23 0700 <Electronically signed by Jules Hudson MD> Cosigner Signature (if applicable): CC: ~ Signed [facility] Work Phone: 1(221) 716-228204-01-2024 Progress note Author Ronald Lowe [facility] December 02, 2023 2:56pm Note Date/Time December 02, 2023 9:06 am [facility] Medical Records Department [address] [place] [address] Progress Note - Hospitalist 12/02/23900 MR#: [id number] Acct: [id number] Name: HADDADKARY D Rep #:[id number] : 1955 68 From: Ronald Lowe MD PCP: Dr. Awa Hargrove, DO Status:ADM IN [facility] Reason for Visit Reason for Visit: Diagnoses [...] 71.5 H, Lymph % (Auto) 16.6 L, Monroe % (Auto) 8.4, Eos % (Auto) 2.2, [...] % (Auto) Cancelled, Lymph % (Auto) Cancelled, [place] % (Auto) Cancelled, Eos % (Auto) Cancelled, [...] Drop Cells Cancelled, Ovalocytes Cancelled, Stomatocytes Cancelled, [place] Bodies Cancelled, [place] Cells Cancelled, Bite Cells Cancelled, Crenated Cell [...] % (Auto) 59.5, Lymph % (Auto) 25.7, Monroe % (Auto) 9.6, Eos % (Auto) 3.8, [...] 12:39 EDT Reading Location ID and State: [address] [place] [address] , Service support , Chest X-Ray 12/01/23 [...] 50 Minutes Charges/Coding Visit Charges Inpatient E&M: 87760 [facility]osp 12/02/23 1456 <Electronically signed by Ronald Lowe MD> Cosigner Signature (if applicable): CC: ~ Signed [facility] Work Phone: 1(262) 433-638204-01-2024 Progress note Author Jules Hudson [facility] December 02, 2023 11:37am Note Date/Time December 02, 2023 11:3 7am [facility] Medical Records Department [address] [place] [address] Progress Note 12/02/23 1136 MR#: [id number] Acct: [id number] Name: KARY HADDAD Rep #:[id number] : 1955 68 From: Jules pope MD PCP: Dr. Awa Hargrove, DO Status:ADM IN Location: [facility] ER240-4 Progress Note I performed an EGD on [...] Carafate. Pathology pending. Jules Hudson MD Pager: [facility] [address] [place] [address] Office: 12/02/23 1133 <Electronically signed by Jules Hudson MD> Jules Hudson MD Cosigner Signature (if applicable): CC: ~ Signed [facility] Work Phone: 1(100) 460-291904-01-2024 Procedure [facility] 12-02-2023 Procedure [facility]04-01-2024 Progress note Author Jules Hudson [facility] December 02, 2023 7:12am Note Date/Time December 02, 2023 7:12 am [facility] Medical Records Department [address] [place] [address] Progress Note - Surgery 12/02/23710 MR#: [id number] Acct: [id number] Name: HADDADKARY [place] Rep #:[id number] : 1955 68 From: Jules pope MD PCP: Dr. Awa Hargrove, DO Status:ADM IN Location: [place] [address] Subjective Subjective Patient no complaints overnight and [...] 71.5 H, Lymph % (Auto) 16.6 L, Monroe % (Auto) 8.4, Eos % (Auto) 2.2, [...] % (Auto) Cancelled, Lymph % (Auto) Cancelled, Monroe % (Auto) Cancelled, Eos % (Auto) Cancelled, [...] Drop Cells Cancelled, Ovalocytes Cancelled, Stomatocytes Cancelled, [place] Bodies Cancelled, [place]erv[place] Cells Cancelled, Bite Cells Cancelled, Crenated Cell [...] % (Auto) 59.5, Lymph % (Auto) 25.7, Monroe % (Auto) 9.6, Eos % (Auto) 3.8, [...] the CT scan. Jules Hudson MD Pager: [facility] [address] [facility], [address] [place] [address] Office: 12/02/23 0712 <Electronically signed by Jules Hudson MD> Cosigner Signature (if applicable): CC: ~ Signed [facility] Work Phone: 1(247) 421-992703-31-2024 History and physical note Author Phillip Kingsley [facility] December 01, 2023 3:13pm Note Date/Time December 01, 2023 3:1 2pm [facility] Medical Records Department [address] [place] [address] H&P Exam - Hospitalist 12/01/23 1507 MR#: [id number] Acct: [id number] Name: KARY HADDAD Rep #:[id number] : 1955 68 From: Phillip Kingsley DO PCP: Dr. Awa Hargrove DO Status:ADM PING Location: [facility] II991-0 HPI - General General Date of Admission: 12/01/23 Date of Service: 12/01/23 Chief Complaint: abdominal pain HPI Narrative KARY HADDAD, is a 68 F who presents with abdominal pain. Abdominal pains been going on for 1 week. It is more or less constant, described as "pain". Generalized all over her abdomen and not [...] plan is for endoscopy on December 01. [facility] Medical History (Updated 12/01/23 @ 15:10 by [...] 71.5 H, Lymph % (Auto) 16.6 L, Monroe % (Auto) 8.4, Eos % (Auto) 2.2, [...] with SCDs Charges/Coding Visit Charges Inpatient E&M: 06408 Init Hosp L3 12/01/23 1513 <Electronically signed by Phillip Kingsley DO> Cosigner Signature (if applicable): CC: Dr. Phillip Kingsley DO; Dr. Awa Hargrove DO~ Signed [facility] Work Phone: 1(576) 637-642003-31-2024 Discharge summary Author Raisa Calhoun [facility] December 01, 2023 2:35pm Note Date/Time December 01, 2023 10: 27am [facility] Medical Records Department [address] [place] [address] Emergency Department Summary 12/01/23 MR#: [id number] Acct: [id number] Name: KARY HADDAD Rep #:[id number] : 1955 68 From: Raisa Calhoun MD [...] colonoscopies, 1 of which showed some polyps. [facility] Medical History (Updated 12/01/23 @ 14:24 by [...] 71.5 H Lymph % (Auto) 16.6 L Monroe % (Auto) 8.4 Eos % (Auto) 2.2 [...] Back pain, Leukocytosis, Duodenal mass Disposition Disposition: [facility] What to do if you have Problems For any increased pain, shortness of breath, bleeding, nausea or vomiting, chestpain, or any unexpected problems, contact your Primary Care Provider. Call [facility] ([phone]) or report to the closest Emergency Room. Call 911 if necessary. 12/01/23 1435 <Electronically signed by Raisa Calhoun MD> Cosigner Signature (if applicable): CC: Dr. Awa Hargrove, ~ Signed [facility] Work Phone: 1(902) 841-409503-31-2024 Consult note Author Jules Hudson [facility] December 01, 2023 2:20pm Note Date/Time December 01, 2023 2:2 0pm [facility] Medical Records Department [address] [place] [address] Consultation - Surgical 12/01/23 1416 MR#: [id number] Acct: [id number] Name: KARY HADDAD Rep #:[id number] : 1955 68 From: Jules pope MD PCP: Dr. Awa Hargrove DO Status:[facility] ER Location: ED Assessment & Plan Assessment/Plan [...] proceed with procedure. Jules Hudson MD Pager: [facility] [address] [place] [address], [address] [place] [address] Office: HPI Consult Data Date of Consult: [...] or vomiting. She denies fevers or chills. [facility] Medical History (Updated 12/01/23 @ 14:[address] Jlues Hudson MD) CKD (chronic kidney disease) High [...] 71.5 H, Lymph % (Auto) 16.6 L, Monroe % (Auto) 8.4, Eos % (Auto) 2.2, [...] applicable): CC: Dr. Awa Hargrove, DO~ Signed [facility] Work Phone: 1(960) 289-271403-31-2024 Discharge summary Author Raisa Calhoun [facility] December 01, 2023 2:35pm Note Date/Time December 01, 2023 10: 27am [facility] Medical Records Department [address] [place] [address] Emergency Department Summary 12/01/23 MR#: [id number] Acct: [id number] Name: KARY HADDAD Rep #:[id number] : 1955 68 From: Raisa Calhoun MD [...] colonoscopies, 1 of which showed some polyps. [facility] Medical History (Updated 12/01/23 @ 14:24 by [...] 71.5 H Lymph % (Auto) 16.6 L [place] % (Auto) 8.4 Eos % (Auto) 2.2 [...] Duodenal mass Disposition Disposition: [facility] What to do if you have Problems For any increased pain, shortness of breath, bleeding, nausea or vomiting, chestpain, or any unexpected problems, contact your Primary Care Provider. Call [facility] ([phone]) or report to the closest Emergency Room. Call 911 if necessary. 12/01/23 1435 <Electronically signed by Raisa Calhoun MD> Cosigner Signature (if applicable): CC: Dr. Awa Hargrove, ~ Signed [facility] Work Phone: 1(156) 468-538501-15-2024 Procedure [facility] 07-27-2023 Discharge summary Author Ronald Lowe [facility] July 27, 2023 10:37am Note Date/Time July 27, 2023 10:32am [facility] Medical Records Department [address] [place] [address] Discharge Summary 07/27/23 1029 MR#: [id number] Acct: [id number] Name: KARY HADDAD [place] Rep #:[id number] : 1955 68 From: Ronald Lowe MD PCP: Dr. Awa Hargrove DO Status:ADM IN Location: [place] [id number]- [id number] Providers Date of Admission: 07/26/23 Date [...] % (Auto) 65.5, Lymph % (Auto) 19.7, Monroe % (Auto) 10.8 H, Eos % (Auto) [...] Shantel at discharge?: Yes Done w/ Acute OK measure.: Yes Documented LVEF (%): 50 Discharge [...] Self Care Charges/Coding Visit Charges Inpatient E&M: 12350 Disch Hosp >30min 07/27/23 1037 <Electronically signed by Ronald Lowe MD> Cosigner Signature (if applicable): CC: Dr. Ronald Lowe MD; Dr. Awa Hargrove DO~ Signed [facility] Work Phone: 1(375) 880-610011-24-2023 Progress note Author Ronald Lowe [facility] July 26, 2023 1:39pm Note Date/Time July 26, 2023 8:07am [facility] Medical Records Department [address] [place] [address] Progress Note - Hospitalist 07/26/23 0759 MR#: [id number] Acct: [id number] Name: KARY HADDAD Rep #:[id number] : 1955 68 From: Ronald Lowe MD PCP: Dr. Awa Hargrove DO Status:ADM IN Location: [place] [address] Reason for Visit Reason for Visit: Diagnoses [...] 88.1 H, Lymph % (Auto) 5.4 L, Monroe % (Auto) 5.4, Eos % (Auto) 0.1, [...] (Auto) 69.2, Lymph % (Auto) 16.6 L, [place] % (Auto) 12.2 H, Eos % (Auto) [...] 18:23 EST Reading Location ID and State: [facility] / ID Tel [phone], Service support , Chest CTA 07/25/23 18:45 IMPRESSION: No [...] 52 Minutes Charges/Coding Visit Charges Inpatient E&M: 63970 Subs Hosp L3 07/26/23 1405 <Electronically signed by Ronald Lowe MD> Cosigner Signature (if applicable): CC: ~ Signed [facility] Work Phone: 1(775) 872-146111-24-2023 Progress note Author Zelalem David [facility] July 26, 2023 11:37am Note Date/Time July 26, 2023 11:37am [facility] Medical Records Department [address] [place] [address] Progress Note 07/26/23 1136 MR#: [id number] Acct: [id number] Name: KARY HADDAD Rep #:[id number] : 1955 68 From: Zelalem Hernandez MD PCP: Dr. Awa Hargrove, DO Status:ADM IN Location: [place] [address] Progress Note Mild proximal RCA and mid LAD disease. Chest pain and troponin elevation likelysecondary to severe uncontrolled hypertension at presentation. Also consider vasospasm. Recommend adequate control of blood pressure. Start on amlodipine for possible vasospasm. Continue aspirin. Risk factor modification. 07/26/23 1137 <Electronically signed by Zelalem Hernandez MD> Zelalem Hernandez MD Cosigner Signature (if applicable): CC: ~ Signed [facility] Work Phone: 1(435) 252-683311-24-2023 Consult note Author Zelalem [facility] July 26, 2023 9:40am Note Date/Time July 26, 2023 9:40am [facility] Medical Records Department [address] [place] [address] Consultation - Cardiology 07/26/23 0935 MR#: [id number] Acct: [id number] Name: KARY HADDAD Rep #:[id number] : 1955 68 From: Zelalem Hernandez MD PCP: Dr. Awa Hargrove, DO Status:ADM IN Location: [place] [address] Assessment & Plan Assessment/Plan (1) NSTEMI (non-ST [...] denies any previous history of heart disease. [facility] Medical History (Updated 07/25/23 @ 23:18 by [...] 88.1 H, Lymph % (Auto) 5.4 L, [place] % (Auto) 5.4, Eos % (Auto) 0.1, [...] (Auto) 69.2, Lymph % (Auto) 16.6 L, [place] % (Auto) 12.2 H, Eos % (Auto) [...] 88.1 H, Lymph % (Auto) 5.4 L, [place] % (Auto) 5.4, Eos % (Auto) 0.1, [...] (Auto) 69.2, Lymph % (Auto) 16.6 L, [place] % (Auto) 12.2 H, Eos % (Auto) [...] MD; Dr. Zelalem Hernandez MD; Dr. Awa Hargrove, DO~ Signed [facility] Work Phone: 1(653) 180-618111-24-2023 History and physical note Author Melecio Torrez [facility] July 25, 2023 11:25pm Note Date/Time July 25, 2023 11:17pm [facility] Medical Records Department [address] [place] [address] H&P Exam - Hospitalist 07/25/23 0638 MR#: [id number] Acct: [id number] Name: KARY HADDAD Rep #:[id number] : 1955 68 From: Melecio Torrez MD PCP: Dr. Awa Hargrove DO Status:ADM IN Location: [place] [address] HPI - General General Date of Admission: [...] no alcohol use, no other drug abuse. 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 The was also present in the room [...] 88.1 H, Lymph % (Auto) 5.4 L, Monroe % (Auto) 5.4, Eos % (Auto) 0.1, [...] for NSTEMI. This was discussed with the presser first on-call,and the patient was started on heparin, [...] ACS also. Charges/Coding Visit Charges Inpatient E&M: 54210 Init Hosp L2 07/25/232319 <Electronically signed by [...] MD; Dr. Awa Hargrove DO ~* Signed [facility] Work Phone: 1(382) 274-863611-23-2023 Discharge summary [facility] July 25, 2023 9:27pm Note Date/Time July 25, 2023 5:26pm [facility] Medical Records Department [address] [place] [address] Emergency Department Summary 07/25/23 MR#: [id number] Acct: [id number] Name: KARY HADDAD Rep #:[id number] : 1955 68 From: Valentin Caicedo PCP: [...] Oxygen Delivery Method Room Air Room Air [facility] Narrative Medical decision making narrative: HISTORY OF [...] respiratory distress noted Breast: 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 Right breast with nipple [...] 88.1 H Lymph % (Auto) 5.4 L Monroe % (Auto) 5.4 Eos % (Auto) 0.1 Baso % (Auto) 0.5 Absolute Neuts (auto) 16.7 H Absolute Lymphs (auto) 1.03 Nucleated RBC % 0 Radiography Diagnostic Testing: Clinical Impression(s) from Imaging Studies Chest X-Ray 07/25/23 17:50 IMPRESSION: No radiographic evidence of acute cardiopulmonary disease. Electronically Signed: Сергей Altman DO at 18:23 EST Reading Location ID and State: [facility] / ID Tel [phone], Service support , Discharge Plan Triage Chief Complaint: Chest Pain ED Provider: Valentin Ceballos Dx/Rx/DC Orders Primary Care Provider: Awa Hargrove Referrals: Awa Hargrove DO [Primary Care Provider] - What to do if you have Problems For any increased pain, shortness of breath, bleeding, nausea or vomiting, chestpain, or any unexpected problems, contact your Primary Care Provider. Call [facility] ([phone]) or report to the closest Emergency Room. Call 911 if necessary. 07/25/232126 <Electronically signed by Valentin Ceballos DO> Cosigner Signature (if applicable): CC: Dr. 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 Right breast with nipple [...] 88.1 H Lymph % (Auto) 5.4 L [place] % (Auto) 5.4 Eos % (Auto) 0.1 Baso % (Auto) 0.5 Absolute Neuts (auto) 16.7 H Absolute Lymphs (auto) 1.03 Nucleated RBC % 0 Radiography Diagnostic Testing: Clinical Impression(s) from Imaging Studies Chest X-Ray 07/25/23 17:50 IMPRESSION: No radiographic evidence of acute cardiopulmonary disease. Electronically Signed: Сергей Altman DO at 18:23 EST Reading Location ID and State: [facility] / ID Tel [phone], Service support , Discharge Plan Triage Chief Complaint: Chest Pain ED Provider: Valentin Ceballos Dx/Rx/DC Orders Primary Care Provider: Awa Hargrove Referrals: Awa Hargrove DO [Primary Care Provider] - What to do if you have Problems For any increased pain, shortness of breath, bleeding, nausea or vomiting, chestpain, or any unexpected problems, contact your Primary Care Provider. Call [facility] ([phone]) or report to the closest Emergency Room. Call 911 if necessary. 07/25/232126 <Electronically signed by Valentin Ceballos DO> Cosigner Signature (if applicable): CC: Dr. Awa Hargrove DO ~ Signed [facility] Work Phone: Consult note Author Jules Hudson [facility] December 01, 2023 2:20pm Note Date/Time December 01, 2023 2:2 0pm [facility] Medical Records Department [address] [place] [address] Consultation - Surgical 12/01/23 1416 MR#: [id number] Acct: [id number] Name: KARY HADDAD Rep #:[id number] : 1955 68 From: Jules pope MD PCP: Dr. Awa Hargrove, DO Status:REG ER Location: ED Assessment & [...] proceed with procedure. Jules Hudson MD Pager: [facility] [facility] [address] [place] [address], [address] [place] [address] Office: HPI Consult Data Date of Consult: [...] or vomiting. She denies fevers or chills. [facility] Medical History (Updated 12/01/23 @ 14:18 by [...] 71.5 H, Lymph % (Auto) 16.6 L, [place] % (Auto) 8.4, Eos % (Auto) 2.2, [...] 12:39 EDT Reading Location ID and State: [facility] / [place] , Service support , 12/01/23 1420 <Electronically signed by Jules Hudson MD> Cosigner Signature (if applicable): CC: Dr. Awa Hargrove, DO~ Signed [facility] Work Phone: Evaluation noteNo assessment information available [facility] Work Phone: Evaluation note* Diagnosis Onset Date Resolution Status Hypertensive emergency without congestive heart failur e acute Infection acute NSTEMI (non-ST elevated myocardial infarction) acute Resistant hypertension acute CKD (chronic kidney disease) chronic [facility] Work Phone: Evaluation note* Diagnosis Onset Date Resolution Status Infection acute CKD (chronic kidney disease) chronic Hypertensive emergency witho ut congestive heart failure resolved NSTEMI (non-ST elevated myocardial infarction) resolved Resistant hypertension resol garima [facility] Work Phone: Evaluation note* Diagnosis Onset Date Resolution Status Appendicolith acute Back pain acute Duodenal mass acute Leukocytosis acute Upper GI bleed acute [facility] Work Phone: Evaluation note* Diagnosis Onset Date Resolution Status Appendicolith acute Back pain acute Duodenal mass acute Duodenal ulcer acute Leukocytosis acute Upper GI bleed acute [facility] Work Phone: Evaluation note* Diagnosis Duodenal ulcer with hemorrhage Chronic or unspecified duodenal ulcer with hemorrhage, without mention of obstruction [facility] Pre-op examination- Primary Preoperative examination, unspecified Duodenal ulcer with hemorrhage Chronic or unspecified duodenal ulcer with hemorrhage, without mention of obstruction Pre-op examination Preoperative examination, unspecified Coronary artery disease involving [place] coronary artery of [place] heart without angina pectoris Adrenal nodule (HCC) Unspecified disorder of adrenal glands Primary hypertension Unspecified essential hypertension Mixed hyperlipidemia Coronary artery disease involving [place] coronary artery of [place] heart without angina pectoris Adrenal nodule (HCC) Unspecified disorder of adrenal glands HTN (hypertension) Unspecified essential hypertension Mixed hyperlipidemia * Assessment & Plan Note - Noemy Jaramillo APRN.CNP - 03/23/2024 11:22 AM EDT Associated Problem(s): Mixed hyperlipidemia Fenofibrate- last dose taken today. Continue as prescribed. * Assessment & Plan Note - Noemy Jaramillo APRN.CNP - 03/23/2024 11:21 AM EDT [...] EDT Associated Problem(s): Coronary artery disease involving [place] coronary artery of [place] heart without angina pectoris [place] in 07/2023. No cardiac stents. Does not follow with cardiology. Managed by PCP. Patient has all medical care in [place]- unable to access any cardiac imaging through [facility] or Care Everywhere. * Assessment & Plan Note - Noemy Jaramillo APRN.CNP - 03/23/2024 10:48 AM EDT Associated Problem(s): Pre-op examination see note for medical conditions which may affect marco-operative course that were addressed at today's visit. [facility] Pre-op examination- Primary Preoperative examination, unspecified Duodenal ulcer with hemorrhage Chronic or unspecified duodenal ulcer with hemorrhage, without mention of obstruction Pre-op examination Preoperative examination, unspecified Coronary artery disease involving [place] coronary artery of [place] heart without angina pectoris Adrenal nodule (HCC) Unspecified disorder of adrenal glands Primary hypertension Unspecified essential hypertension Mixed hyperlipidemia Coronary artery disease involving [place] coronary artery of [place] heart without angina pectoris Adrenal nodule (HCC) Unspecified disorder of adrenal glands Mixed hyperlipidemia SDH (subdural hematoma) (HCC)- Primary Subdural hemorrhage [facility] Diagnosis Pre-op examination- Primary Preoperative examination, unspecified Duodenal ulcer with hemorrhage Chronic or unspecified duodenal ulcer with hemorrhage, without mention of obstruction Pre-op examination Preoperative examination, unspecified Coronary artery disease involving [place] coronary artery of [place] heart without angina pectoris Adrenal nodule (HCC) Unspecified disorder of adrenal glands Primary hypertension Unspecified essential hypertension Mixed hyperlipidemia Coronary artery disease involving [place] coronary artery of [place] heart without angina pectoris Adrenal nodule (HCC) Unspecified disorder of adrenal glands Mixed hyperlipidemia Anemia, unspecified type- Primary [facility] this encounter [facility] [place] [facility] Diagnosis Pre-op examination- Primary Preoperative examination, unspecified Duodenal ulcer with hemorrhage Chronic or unspecified duodenal ulcer with hemorrhage, without mention of obstruction Pre-op examination Preoperative examination, unspecified Coronary artery disease involving [place] coronary artery of [place] heart without angina pectoris Adrenal nodule (HCC) Unspecified disorder of adrenal glands Primary hypertension Unspecified essential hypertension Mixed hyperlipidemia Coronary artery disease involving [place] coronary artery of [place] heart without angina pectoris Adrenal nodule (HCC) Unspecified disorder of adrenal glands Mixed hyperlipidemia 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, not on chronic dialysis (HCC)- Primary [facility] encounter [facility] Diagnosis Onset Date Resolution Status Admit Date Anemia acute May 9:05am Dementia acute May 9:05am [facility] Work Phone: History and physical note Author Phillip Kingsley [facility] December 01, 2023 3:13pm Note Date/Time December 01, 2023 3:1 2pm [facility] Medical Records Department [address] [place] [address] H&P Exam - Hospitalist 12/01/23 1507 MR#: [id number] Acct: [id number] Name: KARY HADDAD Rep #:[id number] : 1955 68 From: Phillip Kingsley DO PCP: Dr. Awa Hargrove DO Status:ADM PING Location: [address] HPI - General General Date of Admission: 12/01/23 Date of Service: 12/01/23 Chief Complaint: abdominal pain HPI Narrative KARY HADDAD, is a 68 F who presents with abdominal pain. Abdominal pains been going on for 1 week. It is more or less constant, described as "pain". Generalized all over her abdomen and not [...] plan is for endoscopy on December 01. [facility] Medical History (Updated 12/01/23 @ 15:10 by [...] 71.5 H, Lymph % (Auto) 16.6 L, [place] % (Auto) 8.4, Eos % (Auto) 2.2, [...] with SCDs Charges/Coding Visit Charges Inpatient E&M: 20131 Init Hosp 12/01/23 4133 <Electronically signed by Phillip Kingsley DO> Cosigner Signature (if applicable): CC: Dr. Phillip Kingsley DO; Dr. Awa Hargrove DO~ Signed [facility] Work Phone: Remodx for referral (narrative)* Outpatient Procedure (Routine) - Closed Specialty Diagnoses / Procedures Referred By Karely bailon Referred To [facility] [place] Diagnoses Duodenal ulcer with hemorrhage Procedures EGD DIAGNOSTIC ESOPHAGOGASTRODUODENOSC OPY TRANSORAL DIAGNOSTIC Jules Alvarez MD [address] [place] [address] [address] Referral ID Status Reason Start Date Expiration Date V isits Requested Visits Authorized [id number] Closed Auto-Generate d Referral 02/21/2024 02/20/2025 1 1 [facility]ative[facility]No reason for referral information [facility]WMari[facility] Work Phone: Rejqqj for visit Narrative* Outpatient Procedure (Routine) - Closed Specialty Diagnoses / Procedures Referred By Karely t Referred To Contact [facility] [place] Diagnoses Duodenal ulcer with hemorrhage Procedures EGD DIAGNOSTIC ESOPHAGOGASTRODUODENOSC OPY TRANSORAL DIAGNOSTIC Jules Alvarez MD [address] [place] [address] [address] Referral ID Status Reason Start Date Expiration Date V isits Requested Visits Authorized [id number] Closed Auto-Generate d Referral 02/21/2024 02/20/2025 1 1 [facility] Chief Complaint and Reason for Visit [...] Upper GI bleed Chief Complaint Admit Date [facility] August 27, 2024 5:00am [facility] August 31 5:00am [facility] September 21, 2024 5:00am [facility] WORK November 30, 2024 4 :00am Chief Complaint Admit Date [facility] WORK November 30, 2024 4 :00am [facility] LAB WORK December 02, 2024 5: 00am LABWORK January 13, 2025 5:00a m Chief Complaint Admit Date [facility] WORK February 12, 2025 7: 15am [facility] LAB WORK March 30, 2025 1: 10am [facility]-W[facility] LAB WORK April 06, 2025 4 :00am LABWORK May 04, 2025 5:00am DECLINING MENTAL STATUS May 17, 2025 9:05am Reason for Visit Admit Date Anemia May 17, 2025 9:05am Dementia May 17, 2025 9:05am Chief Complaint Admit Date [facility] WORK February 12, 2025 7: 15am [facility] WORK March 30, 2025 1: 10am [facility] LAB WORK April 06, 2025 4 :00am LABWORK May 04, 2025 5:00am DECLINING MENTAL STATUS May 17, 2025 9:05am EORDERS May 17, 2025 10:54am Reason for Visit Admit Date Abnormal gait May 17, 2025 9:05am Anemia May 17, 2025 9:05am Dementia May 17, 2025 9:05am Neck pain May 17, 2025 9:05am Chronic intracranial subdural hematoma S eptember 2024 9:05am Advance Directives No Advanced Directives Records Found Date Activated Date Inactivated Comments 06/18/2024 9:54 PM 06/24/2024 9:06 PM Question Answer Comments Full Code Order Discussed With: Surrogate Luis Ei on Maker Surrogate Decision Maker Name: Jeanette Craven Advance Directive Response Recorded Date/ Time Living Will No July 25, 2 023 5:08pm Power of Senior Mobile Solutions Architect No July 25, 2023 5:08pm Advance Directive Response Recorded Date/ Time Living Will No July 25, 023 10:10pm Power of Senior Mobile Solutions Architect No July 25, 2023 10:10pm Advance Directive Response Recorded Date/ Time Living Will No December 01, 2023 10:38am Power of Senior Mobile Solutions Architect No November 30 10:38am Advance Directive Response Recorded Date/ Time Living Will No December 01, 2023 3:43pm Power of Senior Mobile Solutions Architect No November 30 3:43pm Date Activated Date Inactivated Comments 06/18/2024 9:54 PM Question Answer Comments Full Code Order Discussed With: Surrogate Decisi on Maker Surrogate Decision Maker Name: Jeanette Craven Date Activated Date Inactivated Comments 06/18/2024 9:54 PM Reason for Referral Specialty Diagnoses / Procedures Referred By Contac t Referred To Contact CT IMAGING Diagnoses SDH (subdural hematoma) (HCC) Procedures CT BRAIN WO IVCON CT HEAD/BRAIN W/O CONTRAST MATERIAL Becca Garcia, RUDDY [address] [place] [address] [place] [id number] Referral ID Status Reason Start Date Expiration Date Visits Requested Visits Authorized [id number] New Request Auto-Generat ed Referral 4 07/20/2025 1 1 Family History No Family [...] Status Dates Dr. Awa Hargrove , DO Family Provider Active Dr. Awa Hargrove [...] Active Member Role Status Dates Dr. Awa Hargrvoe , DO Primary Care Provider Active Dr. [...] Care Provider Active Dr. Valentin Ceballos DO Referring Provider, Emergency P rovider Active [...] Raisa Calhoun MD Emergency Provider Active Dr. Jules Hudson MD Attending Provider Active Team Status: Active Member Role Status Dates Dr. Awa Hargrove DO Primary Care Provider Active Dr. Raisa Calhoun MD Emergency Provider Active Dr. Claudy Munoz MD Admit Provider, Other Pro vider Active Dr. Phillip Kingsley DO Attending Provider Active Team Status: Active [...] Dr. Ronald Lowe MD Attending Provider Active Electronic Warfare Operator Relationship Specialty Start Date End Date Awa Hargrove DO [address] [place] [address] PCP - General Family Medicine 02/19/24 Electronic Warfare Operator Relationship Specialty Start Date End Date Awa Hargrove DO [address] [place] [address] PCP - General Family Medicine 02/19/24 Electronic Warfare Operator Relationship Specialty Start Date End Date Awa Hargrove DO [address] [place] [address] PCP - General Family Medicine 02/19/24 Electronic Warfare Operator Relationship Specialty Start Date End Date Awa Hargrove DO [address] [place] [address] PCP - General Family Medicine 02/19/24 Electronic Warfare Operator Relationship Specialty Start Date End Date Awa Hargrove [address] [place] [address] PCP - General Family Medicine 02/19/24 Electronic Warfare Operator Relationship Specialty Start Date End Date Awa Hargrove [address] [place] [address] PCP - General Family Medicine 02/19/24 Team Status: Active Member Role Status Dates Dr. Awa Hargrove DO Family Provider Active Dr. Phuc Barker MD Primary Care Provider Active Team Status: Inactive Member Role Status Dates Dr. Phuc Barker MD Primary Care Provider Active Start: August 27, 2024 End: August 27, 2024 [facility] Attending Provider Active Start: August End: August 27, 2024 Team Status: Inactive Member Role Status Dates Dr. Phuc Barker MD Primary Care Provider Active Start: August 31, 2024 End: August 31, 2024 Dr. Johana MCCLLELAND MD Attending Provider Active Start: August 31, [...] January 13, 2025 End: January 13, 2025 Electronic Warfare Operator Relationship Specialty Start Date End Date Devendra Beverly DO [address] [facility] [place] [address] PCP - General Family Medicine 04/20/25 Team [...] Active Start: May 04, 2025 Dr. Bonnie Chang MD Attending Provider Active Start: May 04, 2025 Team Status: Inactive Member Role/Relationship Status Dates Dr. Phuc Barker MD Primary Care Provider Active Start: May 17, 2025 End: May 17, 2025 Dr. Phuc Barker MD Referring Provider Active Start: May 17, 2025 End: May 17, 2025 Dr. Giovanny Brady MD Attending Provider Active Start: May 17, 2025 End: May 17, 2025 Team Status: Active Member Role/Relationship Status Dates Dr. Awa Hargrove DO Primary care physician Active Dr. Phuc Barker MD Primary care physician Active Team Status: Active Member Role/Relationship Status Dates Dr. Phuc Barker MD Primary care physician Active Start: February 12, 2025 Dr. Devendra MCCLELLAND MD Attending physician Active Start: February 12, 2025 Team Status: Active Member Role/Relationship Status Dates Dr. Phuc Barker MD Primary care physician Active Start: March 30, 2025 Dr. Devendra MCCLELLAND MD Attending physician Active Start: March 30, 2025 Team Status: Active Member Role/Relationship Status Dates Dr. Phuc Barker MD Primary care physician Active Start: April 06, 2025 Dr. Devendra MCCLELLAND MD Attending physician Active Start: April 06, 2025 Dr. Devendra MCCLELLAND MD Referring Provider Active Start: April 06, 2025 Team Status: Active Member Role/Relationship Status Dates Dr. Phuc Barker MD Primary care physician Active Start: May 04, 2025 Dr. Bonnie Chang MD Attending physician Active Start: May 04, 2025 Team Status: Inactive Member Role/Relationship Status Dates Dr. Phuc Barker MD Primary care physician Active Start: May 17, 2025 End: May 17, 2025 Dr. Phuc Barker MD Referring Provider Active Start: May 17, 2025 End: May 17, 2025 Dr. Giovanny Brady MD Attending physician Active Start: May 17, 2025 End: May 17, 2025 Team Status: Inactive Member Role/Relationship Status Dates Dr. Phuc Barker MD Primary care physician Active Start: May 17, 2025 End: May 17, 2025 Dr. Giovanny Brady MD Attending physician Active Start: May 17, 2025 End: May 17, 2025 Dr. Giovanny Brady MD Referring Provider Active Start: May 17, 2025 End: May 17, 2025 Team Status: Active Member Role/Relationship Status Dates Dr. Phuc Barker MD Primary care physician Active Start: June 01, 2025 [facility] Attending physician Active Start: May Source Comments (unrecognize d section and content) In the event this informatio n is protected by the Federal Confidentiality of Alcohol and Drug Abuse Patient Records regulations: The Federal rules restrict any use of the information to criminally investigate or prosecute any alcohol or drug abuse patient.[facility] the event this information is protected by the Federal Confidentiality of Alcohol and Drug Abuse Patient Records regulations: The Federal rules restrict any use of the information to criminally investigate or prosecute any alcohol or drug abuse patient.[facility] the event this information is protected by the Federal Confidentiality of Alcohol and Drug Abuse Patient Records regulations: The Federal rules restrict any use of the information to criminally investigate or prosecute any alcohol or drug abuse patient.[facility] the event this information is protected by the Federal Confidentiality of Alcohol and Drug Abuse Patient Records regulations: The Federal rules restrict any use of the information to criminally investigate or prosecute any alcohol or drug abuse patient.[facility] the event this information is protected by the Federal Confidentiality of Alcohol and Drug Abuse Patient Records regulations: The Federal rules restrict any use of the information to criminally investigate or prosecute any alcohol or drug abuse patient.[facility] the event this information is protected by the Federal Confidentiality of Alcohol and Drug Abuse Patient Records regulations: The Federal rules restrict any use of the information to criminally investigate or prosecute any alcohol or drug abuse patient.[facility] the event this information is protected by the Federal Confidentiality of Alcohol and Drug Abuse Patient Records regulations: The Federal rules restrict any use of the information to criminally investigate or prosecute any alcohol or drug abuse patient.[facility] the event this information is protected by the Federal Confidentiality of Alcohol and Drug Abuse Patient Records regulations: The Federal rules restrict any use of the information to criminally investigate or prosecute any alcohol or drug abuse patient.[facility] the event this information is protected by the Federal Confidentiality of Alcohol and Drug Abuse Patient Records regulations: The Federal rules restrict any use of the information to criminally investigate or prosecute any alcohol or drug abuse patient.[facility] Reason for Visit (unrecogniz ed section and content) Specialty Diagnoses / Procedures Referred By Contac t Referred To Contact CT IMAGING Diagnoses Duodenal ulcer with hemorrhage Procedures CT ABD/PEL W IVCON CT ABD & PELVIS W/CONTRAST Jules Alvarez MD [address] [place] [address] [place] [address] Referral ID Status Reason Start Date Expiration Date V isits Requested Visits Authorized [id number] Closed Auto-Generate d Referral 02/19/2024 03/20/2025 1 [address] Specialty Diagnoses / Procedures Referred By Contac t Referred To Contact CT IMAGING Diagnoses Duodenal ulcer with hemorrhage Procedures CT ABD/PEL W IVCON CT ABD & PELVIS W/CONTRAST Jules Alvarez MD [address] [place] [address] [place] [address] Reason Comments CoPat Start Reason Comments Electronic Communication Reason Comments New Patient Evaluation INFORMATION SOURCE (unrecogn ized section and content) DATE CREATED AUTHOR 05/16/2025 [facility] DATE CREATED AUTHOR AUTHOR'S ORGANIZ ATION 06/08/2025 [facility] DATE CREATED AUTHOR AUTHOR'S ORGANIZ ATION 06/23/2025 [facility] FOR RECORDS PERTAINING TO PATIENTS WHO ARE [...] BE BASED ON THE PRIMARY CLINICAL RECORDS. [employer] provides no warranty or guarantee of the accuracy or completeness of information in this document.
[2025-06-29 08:38] LABS: Hematocrit 27.5 % (37-47); Hemoglobin 9.2 g/dL (12.0-15.0); Mean Corp Hgb Conc 33.5 g/dL (32-36); Mean Corpuscular Volume 95.5 fL (81-99); Mean Platelet Vol. 10.6 fl (6.2-12.0); Platelet Count 306 K/mm3 (150-450); RBC Distribution Width CV 12.1 % (11.6-14.6); RBC Distribution Width SD 41.6 fl (35.1-43.9); Red Blood Count 2.88 M/mm3 (4.2-5.4); White Blood Count 9.5 K/mm3 (4.4-11.0)
[2025-06-29 09:19] LABS: AST(SGOT) 17 U/L (<=31); Alanine Aminotransfer ALT/SGPT 13 U/L (<=34); Albumin, Serum 4.3 g/dL (3.4-4.8); Alkaline Phosphatase 80 U/L (35-104); Anion Gap 14 (5-15); BUN 54 mg/dL (4-19); BUN/Creat Ratio 11.8 RATIO (10-20); Calcium,Total 9.5 mg/dL (7.6-11.0); Carbon Dioxide 21.2 mmol/L (21.0-32.0); Chloride 106 mmol/L (98-108); Globulin 2.3 g/dL (2.2-4.2); Glucose 128 mg/dL (70-99); Potassium 3.8 mmol/L (3.3-5.1)
[2025-07-01 12:08] LABS: KEPPRA (LEVETIRACETAM) 14.8 ug/mL (10.0-40.0)
== END ==
LOC: OLS.SW 05:00
PROVIDERS: PCP Family Medicine; Visit Provider Family Medicine
DX: Z79.899 Other long term (current) drug therapy (principal)
CPT/HCPCS: 36415; 80053; 80177; 84100; 85027

== ENCOUNTER → 2025-07-06 | Outpatient (REF) | payer MEDICARE, MEDICAID, SELFPAY ==
--- OUTSIDE RECORDS SUMMARY | 2025-07-06 04:42 | XMS RPT_ITS | CCD ---
Author Organization [facility] Care Team Providers Care Scouring Machine Tender Name Role Phone Dr. Awa Hargrove Primary Care Provider Dr. Valentin Ceballos Emergency Provider [phone] Dr. Melecio Torrez Admit Provider Unavailable Dr. [...] Dr. Awa Hargrove Primary Care Provider [phone] Raisa Calhoun Emergency Provider Dr. Jules Hudson Attending Provider Dr. Claudy Munoz Admit Provider Dr. Claudy Munoz Other Provider Dr. Phillip Kingsley Attending Provider Dr. Jules Hudson Other Provider Dr. Ronald Lowe Attending Provider Unavailable Dr. Ronald Lowe Other Provider Unavailable Malys DO, Awa A Primary Care Provider Mj LOUIS, Dr. Friend Primary Care Provider [phone] [facility] Attending Provid er Unavailable Lucita LOUIS, Dr. Vaughn Attending Provider Unavailej Landrum MD, Dr. Vaughn Referring Provider Unavailej Barker MD, Dr. Friend Primary Care Provider Lucita LOUIS, Dr. Vaughn Attending Provider UnavailDevendra Tejada DO Primary Care Provider [phone] AMY LARA Attending Unava ilable AWA HARGROVE Primary Care Unavailable AMY LARA Attending Unava ilable DELVIN, AWA FLOWER Primary Care Unavailable Mj LOUIS, Dr. Friend Primary Care Provider Rush LOUIS, Dr. Ramsay Attending Provider Unavail uday Beverly MD, Dr. Ramsay Referring Provider Unavail uday Chang MD, Dr. Nicole Attending Provider [phone] Mj LOUIS, Dr. Friend Referring Provider Caitlyn LOUIS, Dr. Baltazar Attending Provider Mj LOUIS, Dr. Friend Primary Care Physician Rush LOUIS, Dr. Ramsay Attending Physician Marlene Chang MD, Dr. Nicole Attending Physician Caitlyn LOUIS, Dr. Baltazar Attending Physician Caitlyn LOUIS, Dr. Baltazar Referring Provider [facility] Attending Physic cathi Unavailable SULTANA GARCIA Referring Unavailable DEVENDRA BEVERLY Primary Care Unavailable SULTANA GARCIA Attending Unavailable JAJA CHANG Referring Unavailabl e DEVENDRA BEVERLY Primary Care Unavailable Phuc Barker Primary Care Unavailable Phuc Barker Referring Unavailable Giovanny Brady Attending Unavailable Hawa Butler Admitting Unavailable Adams Nieto Attending Unavailable Phuc Barker Primary Care Unavailable Patrice Penny Consulting Unavailable Adeli, Amir Consulting Unavailable Hinduja, Kaylee Consulting Unavailable Claudio, Cynthia Consulting Unavailable Zha, Joana Consulting Unavailable Sebastian, Conor Consulting Unavailable Alfredito, Gabi Consulting Unavailable Bittar, Alex Consulting Unavailable Nathaniel Lua Consulting Unavailable Willis Huang Consulting Unavailable Scarlet Dudley Consulting Unavailable Tony Schaffer Consulting Unavailable Luiz, Magui Consulting Unavailable Ridha, Mohamed Consulting Unavailable Zaghlouleh, Mhd Ronaldo Consulting UnavailDiego Fink Consulting Unavailable Wheatley, Rami Consulting Unavailable Benjamin, Phan Consulting Unavailable Vernell Segovia Consulting Unavailable Adela, Rodolfo Consulting Unavailable Hawa Butler Consulting Unavailable Cha Peace Consulting Unavailable Doe Jeffery Consulting Unavailable Ryan Torrez Consulting Unavailable KELI, OMER Consulting Unavailable Harpal, Martin Consulting Unavailable Gogo Asif Consulting Unavailable Alejo Kunz Consulting Unavailable Tanphaichitr, Natthavat Consulting Unavaila jamilah Nieto, Adams Consulting Unavailable Alejo Kunz Attending Unavailable Barker, Phuc Primary Care Unavailable Johana Mckinley Attending Unavailable Hawa Butler Attending Unavailable Johana Mckinley Attending Unavailable Barker, Phuc Primary Care Unavailable Johana Mckinley Attending Unavailable Barker, Phuc Primary Care Unavailable Barker, Phuc Primary Care Unavailable Patrice Penny Consulting Unavailable Hawa Butler Admitting Unavailable Gerson, Adams Attending Unavailable Adeli, Amir Consulting Unavailable Hindunick, Kaylee Consulting Unavailable Claudio, Cynthia Consulting Unavailable Jennie, Joana Consulting Unavailable Sebastian, Conor Consulting Unavailable Alfredito, Gabi Consulting Unavailable Bittar, Alex Consulting Unavailable Nathaniel Lua Consulting Unavailable Willis Huang Consulting Unavailable Scarlet Dudley Consulting Unavailable Tony Schaffer Consulting Unavailable Luiz, Magui Consulting Unavailable Ridha, Mohamed Consulting Unavailable Zaghlouleh, Mhd Ronaldo Consulting UnavailDiego Fink Consulting Unavailable Wheatley, Rami Consulting Unavailable Benjamin, Phan Consulting Unavailable Vernell Segovia Consulting Unavailable Adela, Savageseadilene Consulting Unavailable Hawa Butler Consulting Unavailable Cha Peace Consulting Unavailable Deo Jeffery Consulting Unavailable Shan, Ryaningh Consulting Unavailable KELI, OMER Consulting Unavailable Bariandker, Martin Consulting Unavailable Laya, Gogo Consulting Unavailable Alejo Kunz Consulting Unavailable Tanphaichitr, Natthavat Consulting Unavaila ble Barker, Phuc Primary Care Unavailable Bonnie Chang Attending Unavailable [facility] Attending Unavailable Barker, Phuc Primary Care Unavailable Barker, Phuc Primary Care Unavailable [facility] Attending Unavailable Barker, Phuc Primary Care Unavailable [facility] Attending Unavailable Barker, Phuc Primary Care Unavailable Devendra Fernández Attending Unavailable Barker, Phuc Primary Care Unavailable Rush MCCLELLAND, Devendra Attending Unavailable Barker, Phuc Primary Care Unavailable Armando Briones Attending Unavailabl e Gukathya OLS, Johana Attending Unavailable Barker, Phuc Primary Care Unavailable Gudla OLS, Johana Referring Unavailable Gudla OLS, Johana Attending Unavailable Barker, Phuc Primary Care Unavailable Barker, Phuc Primary Care Unavailable Rush MCCLELLAND, Devendra Attending Unavailable Barker, Phuc Primary Care Unavailable Baddour, Giovanny Referring Unavailable Baddour, Giovanny Attending Unavailable Rush MCCLELLAND, Devendra Referring Unavailable Barker, Phuc Primary Care Unavailable Devendra Fernández Attending Unavailable Barker, Phuc Primary Care Unavailable Baddour, Giovanny Referring Unavailable Baddour, Giovanny Attending Unavailable Barker, Phuc Primary Care Unavailable Baddour, Giovanny Referring Unavailable Baddour, Giovanny Attending Unavailable Barker, Phuc Primary Care Unavailable NagJames wrightadefidel Attending Unavailabl e Allergies Allergy Classification Reported Allergen(s) Allergy Type Date of Onset Reaction(s) Facility (11 sources) amLODIPine; Translations: [AMLODIPINE] Drug Allergy 7 Other: See Comments [facility] (7 sources) Aspartame; Translations: [ASPARTAME] Drug Allergy 5 Other: See Comments [facility] Comment on above: feet & legs (1 source) Aspartame Drug Allergy 5 [facility] Repository Medications Current Medications Medication Drug Class(es) [...] (20 sources) Central alpha-2 Adrenergic Agonist Start: take 0.2 mg by mouth every eight [...] provided with radiology test) (4 sources) Start: 06-19-[address] (will be provided with [...] Start: 05-17-2025 take 2 tablets by mo [facility] once daily Magnesium 200 mg tablet Active [...] by lakia th once daily at bedtime melatonin 3 mg [...] 2 03/23/2024 03/23/2025 Active polyethylene glycol 3350 02818 mg powder for oral solution (5 sources) [...] 22, 2024 2:09pm take 1 capsule by [facility] once daily at bedtime sertraline 150 mg capsule Take 150 mg by mouth daily at bedtime. Active sodium phosphate,mono-dibasi c (FLEET ENEMA CA) (3 sources) sodium phosphate ,mono-dibasic (FLEET ENEMA CA) 1 suppository by RECTAL route as needed. Active vit B comp no.3-bjdoo-N-biot in (4 sources) Start: 07-16-2024 Start: 07-16-2024 vit B comp no. 8-pnekh-B-biotin Active 1 {tbl} PO DAILY July 16, [...] Suspended docusate sodium 50 mg / sennosides, custodial 8.6 mg oral tablet (4 sources) Start: [...] Documented Da te Episodic/Chronic Acute cerebrovascular disease (18 sources) Hematoma of subdural space of neuraxis; [...] Coronary arteriosclerosis; Translations: [Atherosclerotic heart disease of [place] coronary artery without angina pectoris] Onset: 4 [...] aftercare (4 sources) Drug therapy finding; Translations: [jail (current) use of anticoagulants] 06-26-2024 Episodic Other aftercare (1 source) Other chcf (current) drug therapy; Translations: [Other chcf (current) drug therapy] Onset: 5 Episodic Other [...] unspecified; Translations: [Altered mental status, unspecified] Onset: 4 Episodic Spondylosis; intervertebral disc disorders; other back problems (10 sources) Backache; Translations: [Dorsalgia, unspecified] 12-01-2023 Episodic Thyroid disorders (1 source) Hypothyroidism, unspecified; Translations: [Hypothyroidism, unspecified] Onset: 5 Chronic Unclassified (2 sources) 6 month f/u Onset: 5 Urinary tract infections (1 source) Urinary tract [...] Test Name Value Interpretation Reference Range Facility [facility]EP[facility] (LEVETIRACETAM)on KEPPRA 14.8 ug/mL Normal 10.0-40.0 [facility] Comment on above: Order Comment: 516.1 Result Comment: Perf ormed at: - [facility] [address] [id number] Director: Rk Petty MD, Phone: [phone] Performed By: #### L 3310.0000, L100.0500, L501.2300, L500.4050 ####[facility] [address] [place], [address] CBC-Complete Blood Cnt No Dayana ffon 06-29-2025 Erythrocyte distribution width (RBC) [Ratio] 12.1 % Normal 11.6-14.6 [facility] Comment on above: Order Comment: 516.1 Performed By: #### L 3310.0000, L100.0500, L501.2300, L500.4050 ####[facility] [address] [place], [address] Hematocrit (Bld) [Volume fraction] 27.5 % Low 37-47 [facility] Comment on above: Order Comment: 516.1 Performed By: #### L 3310.0000, L100.0500, L501.2300, L500.4050 ####[facility] [address] [place], [address] Hemoglobin (Bld) [Mass/Vol] 9.2 g/dL Low 12.0-15.0 [facility] Comment on above: Order Comment: 516.1 Performed By: #### L 3310.0000, L100.0500, L501.2300, L500.4050 ####[facility] [address] [place], [address] MCH (RBC) [Entitic mass] 31.9 pg Normal 27.0-32.0 [facility] Comment on above: Order Comment: 516.1 Performed By: #### L 3310.0000, L100.0500, L501.2300, L500.4050 ####[facility] [address] [place], [address] MCHC (RBC) [Mass/Vol] 33.5 g/dL Normal 32-36 [facility] Comment on above: Order Comment: 516.1 Performed By: #### L 3310.0000, L100.0500, L501.2300, L500.4050 ####[facility] [address] [place], [address] MCV (RBC) [Entitic vol] 95.5 fL Normal 81-99 [facility] Comment on above: Order Comment: 516.1 Performed By: #### L 3310.0000, L100.0500, L501.2300, L500.4050 ####[facility] [address] [place], [address] Platelet mean volume (Bld) [Entitic vol] 10.6 fL Normal 6.2-12.0 [facility] Comment on above: Order Comment: 516.1 Performed By: #### L 3310.0000, L100.0500, L501.2300, L500.4050 ####[facility] [address] [place], [address] Platelets (Bld) [#/Vol] 306 10*3/uL Normal 150-450 [facility] Comment on above: Order Comment: 516.1 Performed By: #### L 3310.0000, L100.0500, L501.2300, L500.4050 ####[facility] [address] [place], [address] RBC (Bld) [#/Vol] 2.88 10*6/uL Low 4.2-5.4 [facility] Comment on above: Order Comment: 516.1 Performed By: #### L 3310.0000, L100.0500, L501.2300, L500.4050 ####[facility] [address] [place], [address] RDW SD 41.6 fl Normal 35.1-43.9 [facility] Comment on above: Order Comment: 516.1 Performed By: #### L 3310.0000, L100.0500, L501.2300, L500.4050 ####[facility] [address] [place], [address] WBC (Bld) [#/Vol] 9.5 10*3/uL Normal 4.4-11.0 [facility] Comment on above: Order Comment: 516.1 Performed By: #### L 3310.0000, L100.0500, L501.2300, L500.4050 ####[facility] [address] [place], [address] Comprehensive Metabolic Prof ilon 06-29-2025 Albumin [Mass/Vol] 4.3 g/dL Normal 3.4-4.8 [facility] Comment on above: Order Comment: 516.1 Performed By: #### L 3310.0000, L100.0500, L501.2300, L500.4050 ####[facility] [address] [place], [address] Albumin/Globulin [Mass ratio] 1.9 {ratio} Normal 0.9-2.4 [facility] Comment on above: Order Comment: 516.1 Performed By: #### L 3310.0000, L100.0500, L501.2300, L500.4050 ####[facility] [address] [place], [address] ALK PHOS 80 U/L Normal 35-104 [facility] Comment on above: Order Comment: 516.1 Performed By: #### L 3310.0000, L100.0500, L501.2300, L500.4050 ####[facility] [address] [place], [address] ALT [Catalytic activity/Vol] 13 U/L Normal <=34 [facility] Comment on above: Order Comment: 516.1 Performed By: #### L 3310.0000, L100.0500, L501.2300, L500.4050 ####[facility] [address] [place], [address] AST [Catalytic activity/Vol] 17 U/L Normal <=31 [facility] Comment on above: Order Comment: 516.1 Performed By: #### L 3310.0000, L100.0500, L501.2300, L500.4050 ####[facility] [address] [place], [address] Bilirubin [Mass/Vol] 0.26 mg/dL Normal 0.00-1.30 [facility] Comment on above: Order Comment: 516.1 Performed By: #### L 3310.0000, L100.0500, L501.2300, L500.4050 ####[facility] [address] [place], [address] BUN/CRE 11.8 RATIO Normal 10-20 [facility] Comment on above: Order Comment: 516.1 Performed By: #### L 3310.0000, L100.0500, L501.2300, L500.4050 ####[facility] [address] [place], [address] Calcium [Mass/Vol] 9.5 mg/dL Normal 7.6-11.0 [facility] Comment on above: Order Comment: 516.1 Performed By: #### L 3310.0000, L100.0500, L501.2300, L500.4050 ####[facility] [address] [place], [address] Chloride [Moles/Vol] 106 mmol/L Normal 98-108 [facility] Comment on above: Order Comment: 516.1 Performed By: #### L 3310.0000, L100.0500, L501.2300, L500.4050 ####[facility] [address] [place], [address] CO2 [Moles/Vol] 21.2 mmol/L Normal 21.0-32.0 [facility] Comment on above: Order Comment: 516.1 Performed By: #### L 3310.0000, L100.0500, L501.2300, L500.4050 ####[facility] [address] [place], [address] Creatinine [Mass/Vol] 4.61 mg/dL High 0.70-1.20 [facility] Comment on above: Order Comment: 516.1 Performed By: #### L 3310.0000, L100.0500, L501.2300, L500.4050 ####[facility] [address] [place], [address] GAP 14 Normal 5-15 [facility] Comment on above: Order Comment: 516.1 Performed By: #### L 3310.0000, L100.0500, L501.2300, L500.4050 ####[facility] [address] [place], [address] GFR/1.73 sq M.predicted among non-blacks MDRD (S/P/Bld) [Vol rate/Area] 10 mL/min/{1.73_m2} Low >60 [facility] Comment on above: Order Comment: 516.1 Result Comment: mL/m in/1.73m2 CKD-EPI Creatinine Equation (2020) Performed By: #### L 3310.0000, L100.0500, L501.2300, L500.4050 ####[facility] [address] [place], [address] Globulin (S) [Mass/Vol] 2.3 g/dL Normal 2.2-4.2 [facility] Comment on above: Order Comment: 516.1 Performed By: #### L 3310.0000, L100.0500, L501.2300, L500.4050 ####[facility] [address] [place], [address] Glucose [Mass/Vol] 128 mg/dL High 70-99 [facility] Comment on above: Order Comment: 516.1 Performed By: #### L 3310.0000, L100.0500, L501.2300, L500.4050 ####[facility] [address] [place], [address] Potassium [Moles/Vol] 3.8 mmol/L Normal 3.3-5.1 [facility] Comment on above: Order Comment: 516.1 Performed By: #### L 3310.0000, L100.0500, L501.2300, L500.4050 ####[facility] [address] [place], [address] Sodium [Moles/Vol] 141 mmol/L Normal 133-145 [facility] Comment on above: Order Comment: 516.1 Performed By: #### L 3310.0000, L100.0500, L501.2300, L500.4050 ####[facility] [address] [place], [address] T PROT 6.6 g/dL Normal 5.9-8.4 [facility] Comment on above: Order Comment: 516.1 Performed By: #### L 3310.0000, L100.0500, L501.2300, L500.4050 ####[facility] [address] [place], [address] Urea nitrogen [Mass/Vol] 54 mg/dL High 4-19 [facility] Comment on above: Order Comment: 516.1 Performed By: #### L 3310.0000, L100.0500, L501.2300, L500.4050 ####[facility] [address] [place], [address] Phosphoruson 06-29-2025 Phosphate [Mass/Vol] 4.9 mg/dL High 2.7-4.5 [facility] Comment on above: Order Comment: 516.1 Performed By: #### L 3310.0000, L100.0500, L501.2300, L500.4050 ####[facility] [address] [place], [address] Basic Metabolic Profile (BMP )on 06-03-2025 BUN/CRE 13.4 RATIO Normal 10-20 [facility] Comment on above: Order Comment: 516.1 Performed By: #### L 500.2500 ####[facility] [address] [place], [address] Calcium [Mass/Vol] 9.6 mg/dL Normal 7.6-11.0 [facility] Comment on above: Order Comment: 516.1 Performed By: #### L 500.2500 ####[facility] [address] [place], [address] Chloride [Moles/Vol] 104 mmol/L Normal 98-108 [facility] Comment on above: Order Comment: 516.1 Performed By: #### L 500.2500 ####[facility] [address] [place], [address] CO2 [Moles/Vol] 21.4 mmol/L Normal 21.0-32.0 [facility] Comment on above: Order Comment: 516.1 Performed By: #### L 500.2500 ####[facility] [address] [place], [address] Creatinine [Mass/Vol] 4.31 mg/dL High 0.70-1.20 [facility] Comment on above: Order Comment: 516.1 Performed By: #### L 500.2500 ####[facility] [address] [place], [address] GAP 17 High 5-15 [facility] Comment on above: Order Comment: 516.1 Performed By: #### L 500.2500 ####[facility] [address] [place], [address] GFR/1.73 sq M.predicted among non-blacks MDRD (S/P/Bld) [Vol rate/Area] 10 mL/min/{1.73_m2} Low >60 [facility] Comment on above: Order Comment: 516.1 Result Comment: mL/m in/1.73m2 CKD-EPI Creatinine Equation (2020) Performed By: #### L 500.2500 ####[facility] [address] [place], [address] Glucose [Mass/Vol] 136 mg/dL High 70-99 [facility] Comment on above: Order Comment: 516.1 Performed By: #### L 500.2500 ####[facility] [address] [place], [address] Potassium [Moles/Vol] 3.8 mmol/L Normal 3.3-5.1 [facility] Comment on above: Order Comment: 516.1 Performed By: #### L 500.2500 ####[facility] [address] [place], [address] Sodium [Moles/Vol] 143 mmol/L Normal 133-145 [facility] Comment on above: Order Comment: 516.1 Performed By: #### L 500.2500 ####[facility] [address] [place], [address] Urea nitrogen [Mass/Vol] 58 mg/dL High 4-19 [facility] Comment on above: Order Comment: 516.1 Performed By: #### L 500.2500 ####[facility] [address] [place], [address] CNPCatarina 06-03-2025 SALVATOREN Telephone (HEMAWS) ZAHIDA BELTRE ([id number]) 1955 F Date Time Provider Department 06/03/25 FELECIA SCHWARZ During your visit today, we recorded the following information about you: Radha Nichols LPN 06/03/2025 11:14 AM Signed Received results CMP/CBC from [facility], Delma Garcia ACID CONDITIONING WORKER looked @ results, informed she did not order the testing , but pt. Has worsening kidney function and needs to see Child Caregiver. Spoke with Nursing on [address] [place] [address] Chang ordered the testing, and they needed to be sure he received the results. Voiced understanding and will fax results to carbon capture power plant operator. Radha Nichols LPN Allergies As of Date: [...] at bedtime. - sodium phosphate,mono-dibasic (FLEET ENEMA CA) 1 suppository by RECTAL route as needed. [...] examination [Z01.818] 03/23/2024 Coronary artery disease involving [place] enrique*03/23/2024 HTN (hypertension) [I10] 03/23/2024 Mixed hyperlipidemia [E78.2] 03/23/2024 Subdural hemorrhage (HCC) [I62.00] 06/18/2024 SDH (subdural hematoma) (HCC) [S06.5XAA] 06/18/2024 Fall [W19.XXXA] 06/19/2024 Age-related osteoporosis without current pathol*04/13/2024 Dependence on renal dialysis (HCC) [Z99.2] 04/07/2024 06/24/2024 Chronic anemia [D64.9] 06/19/2024 Hyponatremia [E87.1] 06/19/2024 06/24/2024 Encounter Status:Closed by RADHA NICHOLS on 06/03/25 Normal [facility] Protein+Creatinine Ratio,Uri neon 06-03-2025 PROT:CRE RATIO 2055 mg/g CRE High 0-200 [facility] Comment on above: Performed By: #### L 400.0001, L501.0900 ####[facility] [address] [place], [address] Protein (U) [Mass/Vol] 126.0 mg/dL High 0.0-12.0 [facility] Comment on above: Performed By: #### L 400.0001, L501.0900 ####[facility] [address] [place], [address] UR CREAT 61.30 mg/dL Normal 28.00-217.0 0 [facility] Comment on above: Performed By: #### L 400.0001, L501.0900 ####[facility] [address] [place], [address] Urinalysis, Completeon 06-03 BACTERIA RARE Normal None Seen [facility] Comment on above: Order Comment: Urine , Random Performed By: #### L 400.0001, L501.0900 ####[facility] [address] [place], [address] EPI,SQUAMOUS 5-10 SEEN Normal 5-10 [facility] Comment on above: Order Comment: Urine , Random Performed By: #### L 400.0001, L501.0900 ####[facility] [address] [place], [address] RBC 5-10 SEEN Normal 0-5 [facility] Comment on above: Order Comment: Urine , Random Performed By: #### L 400.0001, L501.0900 ####[facility] [address] [place], [address] WBC 50-100 SEEN Normal 0-5 [facility] Comment on above: Order Comment: Urine , Random Performed By: #### L 400.0001, L501.0900 ####[facility] [address] [place], [address] Mucus Ql (Urine sed) 0 SEEN Normal [facility] Comment on above: Order Comment: Urine , Random Performed By: #### L 400.0001, L501.0900 ####[facility] [address] [place], [address] Anion gap in Serum or Plasma Ordered By: [facility] on 06-01-2025 Anion gap [Moles/Vol] 16 mmol/L High 5-15 [facility] BUN/creatinine ratioOrdered By: [facility] on 06-01-2025 Urea nitrogen/Creatinine [Mass ratio] 13.8 mg/mg 10-20 [facility] Bilirubin, totalOrdered By: [facility] on 06-01-2025 Bilirubin [Mass/Vol] 0.24 mg/dL 0.00-1.30 [facility] CBC-Complete Blood Cnt No Dayana vazquez 06-01-2025 Erythrocyte distribution width (RBC) [Ratio] 13.2 % Normal 11.6-14.6 [facility] Comment on above: Order Comment: 516.1 Performed By: #### L 100.0500, L500.4050, L501.2300 ####[facility] [address] [place], [address] Hematocrit (Bld) [Volume fraction] 26.0 % Low 37-47 [facility] Comment on above: Order Comment: 516.1 Performed By: #### L 100.0500, L500.4050, L501.2300 ####[facility] [address] [place], [address] Hemoglobin (Bld) [Mass/Vol] 8.4 g/dL Low 12.0-15.0 [facility] Comment on above: Order Comment: 516.1 Performed By: #### L 100.0500, L500.4050, L501.2300 ####[facility] [address] [place], [address] MCH (RBC) [Entitic mass] 31.7 pg Normal 27.0-32.0 [facility] Comment on above: Order Comment: 516.1 Performed By: #### L 100.0500, L500.4050, L501.2300 ####[facility] [address] [place], [address] MCHC (RBC) [Mass/Vol] 32.3 g/dL Normal 32-36 [facility] Comment on above: Order Comment: 516.1 Performed By: #### L 100.0500, L500.4050, L501.2300 ####[facility] [address] [place], [address] MCV (RBC) [Entitic vol] 98.1 fL Normal 81-99 [facility] Comment on above: Order Comment: 516.1 Performed By: #### L 100.0500, L500.4050, L501.2300 ####[facility] [address] [place], [address] Platelet mean volume (Bld) [Entitic vol] 10.9 fL Normal 6.2-12.0 [facility] Comment on above: Order Comment: 516.1 Performed By: #### L 100.0500, L500.4050, L501.2300 ####[facility] [address] [place], [address] Platelets (Bld) [#/Vol] 308 10*3/uL Normal 150-450 [facility] Comment on above: Order Comment: 516.1 Performed By: #### L 100.0500, L500.4050, L501.2300 ####[facility] [address] [place], [address] RBC (Bld) [#/Vol] 2.65 10*6/uL Low 4.2-5.4 [facility] Comment on above: Order Comment: 516.1 Performed By: #### L 100.0500, L500.4050, L501.2300 ####[facility] [address] [place], [address] RDW SD 46.5 fl High 35.1-43.9 [facility] Comment on above: Order Comment: 516.1 Performed By: #### L 100.0500, L500.4050, L501.2300 ####[facility] [address] [place], [address] WBC (Bld) [#/Vol] 10.1 10*3/uL Normal 4.4-11.0 [facility] Comment on above: Order Comment: 516.1 Performed By: #### L 100.0500, L500.4050, L501.2300 ####[facility] [address] [place], [address] Carbon dioxide, total [Moles /volume] in Central venous bloodOrdered By: [facility] on 06-01-2025 CO2 [Moles/Vol] 19.1 mmol/L Low 21.0-32.0 [facility] Chloride assayOrdered By: [facility], [place] on 06-01-2025 Chloride [Moles/Vol] 105 mmol/L 98-108 [facility] Comprehensive Metabolic Prof ilon 06-01-2025 Albumin [Mass/Vol] 4.2 g/dL Normal 3.4-4.8 [facility] Comment on above: Order Comment: 516.1 Performed By: #### L 100.0500, L500.4050, L501.2300 ####[facility] [address] [place], [address] Albumin/Globulin [Mass ratio] 1.8 {ratio} Normal 0.9-2.4 [facility] Comment on above: Order Comment: 516.1 Performed By: #### L 100.0500, L500.4050, L501.2300 ####[facility] [address] [place], [address] ALK PHOS 82 U/L Normal 35-104 [facility] Comment on above: Order Comment: 516.1 Performed By: #### L 100.0500, L500.4050, L501.2300 ####[facility] [address] [place], [address] ALT [Catalytic activity/Vol] 15 U/L Normal <=34 [facility] Comment on above: Order Comment: 516.1 Performed By: #### L 100.0500, L500.4050, L501.2300 ####[facility] [address] [place], [address] AST [Catalytic activity/Vol] 15 U/L Normal <=31 [facility] Comment on above: Order Comment: 516.1 Performed By: #### L 100.0500, L500.4050, L501.2300 ####[facility] [address] [place], [address] Bilirubin [Mass/Vol] 0.24 mg/dL Normal 0.00-1.30 [facility] Comment on above: Order Comment: 516.1 Performed By: #### L 100.0500, L500.4050, L501.2300 ####[facility] [address] [place], [address] BUN/CRE 13.8 RATIO Normal 10-20 [facility] Comment on above: Order Comment: 516.1 Performed By: #### L 100.0500, L500.4050, L501.2300 ####[facility] [address] [place], [address] Calcium [Mass/Vol] 9.3 mg/dL Normal 7.6-11.0 [facility] Comment on above: Order Comment: 516.1 Performed By: #### L 100.0500, L500.4050, L501.2300 ####[facility] [address] [place], [address] Chloride [Moles/Vol] 105 mmol/L Normal 98-108 [facility] Comment on above: Order Comment: 516.1 Performed By: #### L 100.0500, L500.4050, L501.2300 ####[facility] [address] [place], [address] CO2 [Moles/Vol] 19.1 mmol/L Low 21.0-32.0 [facility] Comment on above: Order Comment: 516.1 Performed By: #### L 100.0500, L500.4050, L501.2300 ####[facility] [address] [place], [address] Creatinine [Mass/Vol] 4.42 mg/dL High 0.70-1.20 [facility] Comment on above: Order Comment: 516.1 Performed By: #### L 100.0500, L500.4050, L501.2300 ####[facility] [address] [place], [address] GAP 16 High 5-15 [facility] Comment on above: Order Comment: 516.1 Performed By: #### L 100.0500, L500.4050, L501.2300 ####[facility] [address] [place], [address] GFR/1.73 sq M.predicted among non-blacks MDRD (S/P/Bld) [Vol rate/Area] 10 mL/min/{1.73_m2} Low >60 [facility] Comment on above: Order Comment: 516.1 Result Comment: mL/m in/1.73m2 CKD-EPI Creatinine Equation (2020) Performed By: #### L 100.0500, L500.4050, L501.2300 ####[facility] [address] [place], [address] Globulin (S) [Mass/Vol] 2.3 g/dL Normal 2.2-4.2 [facility] Comment on above: Order Comment: 516.1 Performed By: #### L 100.0500, L500.4050, L501.2300 ####[facility] [address] [place], [address] Glucose [Mass/Vol] 132 mg/dL High 70-99 [facility] Comment on above: Order Comment: 516.1 Performed By: #### L 100.0500, L500.4050, L501.2300 ####[facility] [address] [place], [address] Potassium [Moles/Vol] 3.9 mmol/L Normal 3.3-5.1 [facility] Comment on above: Order Comment: 516.1 Performed By: #### L 100.0500, L500.4050, L501.2300 ####[facility] [address] [place], [address] Sodium [Moles/Vol] 141 mmol/L Normal 133-145 [facility] Comment on above: Order Comment: 516.1 Performed By: #### L 100.0500, L500.4050, L501.2300 ####[facility] [address] [place], [address] T PROT 6.5 g/dL Normal 5.9-8.4 [facility] Comment on above: Order Comment: 516.1 Performed By: #### L 100.0500, L500.4050, L501.2300 ####[facility] [address] [place], [address] Urea nitrogen [Mass/Vol] 61 mg/dL High 4-19 [facility] Comment on above: Order Comment: 516.1 Performed By: #### L 100.0500, L500.4050, L501.2300 ####[facility] [address] [place], [address] Erythrocyte distribution wid th ratioOrdered By: [facility] on 06-01-2025 Erythrocyte distribution width (RBC) [Ratio] 13.2 % 11.6-14.6 [facility] Erythrocyte distribution wid th standard deviationOrdered By: [facility] on 06-01-2025 Erythrocyte distribution width (RBC) [Ratio] 46.5 fl High 35.1-43.9 [facility] Glomerular filtration rate ( GFR) estimation/1.73 sq m using serum, plasma, or whole bOrdered By: [facility] on 06-01-2025 GFR/1.73 sq M.predicted among non-blacks MDRD (S/P/Bld) [Vol rate/Area] 10 mL/min/{1.73_m2} Low >60 [facility] Comment on above: mL/min/1.73m2 CKD-EP I Creatinine Equation (2020) Hematocrit Auto (Bld) [Volum e fraction]Ordered By: [facility] on 06-01-2025 Hematocrit (Bld) [Volume fraction] 26.0 % Low 37-47 [facility] Hemoglobin measurementOrdere d By: [facility] on 06-01-2025 Hemoglobin (Bld) [Mass/Vol] 8.4 g/dL Low 12.0-15.0 [facility] Laboratory - Chemistry and C hemistry - challengeOrdered By: [facility] on 06-01-2025 AST [Catalytic activity/Vol] 15 U/L <32 [facility] MCV (mean corpuscular volume ) determinationOrdered By: [facility] on 06-01-2025 MCV (RBC) [Entitic vol] 98.1 fL 81-99 [facility] Mean corpuscular hemoglobin (MCH) determinationOrdered By: [facility] on 06-01-2025 MCH (RBC) [Entitic mass] 31.7 pg 27.0-32.0 [facility] Mean corpuscular hemoglobin concentration (MCHC) determinationOrdered By: [facility] on 06-01-2025 MCHC (RBC) [Mass/Vol] 32.3 g/dL 32-36 [facility] Mean platelet volume determi nationOrdered By: [facility] on 06-01-2025 Platelet mean volume (Bld) [Entitic vol] 10.9 fL 6.2-12.0 [facility] Phosphoruson 06-01-2025 Phosphate [Mass/Vol] 5.2 mg/dL High 2.7-4.5 [facility] Comment on above: Order Comment: 516.1 Performed By: #### L 100.0500, L500.4050, L501.2300 ####[facility] [address] [place], [place], [id number] Platelet countOrdered By: [facility], [place] on 06-01-2025 Platelets (Bld) [#/Vol] 308 10*3/uL 150-450 [facility] Potassium measurement (mass/ volume)Ordered By: [facility] on 06-01-2025 Potassium (Unsp spec) [Mass/Vol] 3.9 mmol/L 3.3-5.1 [facility] RBC Auto (Bld) [#/Vol]Ordere d By: [facility] on 06-01-2025 RBC (Bld) [#/Vol] 2.65 10*6/uL Low 4.2-5.4 [facility] Serum creatinine measurement (mass/volume)Ordered By: [facility] on 06-01-2025 Creatinine [Mass/Vol] 4.42 mg/dL High 0.70-1.20 [facility] Serum globulin measurementOr dered By: [facility] on 06-01-2025 Globulin (S) [Mass/Vol] 2.3 g/dL 2.2-4.2 [facility] Serum glucose measurement (m ass/volume)Ordered By: [facility] on 06-01-2025 Glucose [Mass/Vol] 132 mg/dL High 70-99 [facility] Serum or plasma alanine mckeon otransferase (ALT) measurementOrdered By: [facility] on 06-01-2025 ALT [Catalytic activity/Vol] 15 U/L <35 [facility] Serum or plasma albumin yamil urement (mass/volume)Ordered By: [facility] on 06-01-2025 Albumin [Mass/Vol] 4.2 g/dL 3.4-4.8 [facility] Serum or plasma albumin/glob ulin mass ratioOrdered By: [facility] on 06-01-2025 Albumin/Globulin [Mass ratio] 1.8 {ratio} 0.9-2.4 [facility] Serum or plasma alkaline anthony sphatase measurementOrdered By: [facility] on 06-01-2025 ALP [Catalytic activity/Vol] 82 U/L 35-104 [facility] Serum or plasma calcium yamil urement (mass/volume)Ordered By: [facility] on 06-01-2025 Calcium [Mass/Vol] 9.3 mg/dL 7.6-11.0 [facility] Serum or plasma urea nitroge n measurement (mass/volume)Ordered By: [facility] on 06-01-2025 Urea nitrogen [Mass/Vol] 61 mg/dL High 4-19 [facility] Sodium levelOrdered By: [facility] on 06-01-2025 Sodium [Moles/Vol] 141 mmol/L 133-145 [facility] Total proteinOrdered By: [facility] on 06-01-2025 Protein [Mass/Vol] 6.5 g/dL 5.9-8.4 [facility] White blood cell (WBC) count Ordered By: [facility] on 06-01-2025 WBC (Bld) [#/Vol] 10.1 10*3/uL 4.4-11.0 [facility] Folates, RBCon 05-25-2025 Fol.,Hemolysate > 620.0 Normal Not Estab. [facility] Comment on above: Order Comment: Test( s) 218197-Ywkdyak B6was developed and its performance characteristicsdetermined by [employer]. It has not been cleared or approvedby the Food and Drug Administration. Performed By: #### L 3100.1725, L501.9520, L503.6150, L503.0106, L503.5510, L101.9900, L3300.0960, L3100.5450, L3300.8200, L3300.8000, L3130.0010, L503.6550, L501.5200 ####[facility] [address] [place], [place], [id number] Folate, RBC > 2385 Normal >498 [facility] Comment on above: Order Comment: Test( s) 713395-Bytvrst B6was developed and its performance characteristicsdetermined by [employer]. It has not been cleared or approvedby the Food and Drug Administration. Performed By: #### L 3100.1725, L501.9520, L503.6150, L503.0106, L503.5510, L101.9900, L3300.0960, L3100.5450, L3300.8200, L3300.8000, L3130.0010, L503.6550, L501.5200 ####[facility] [address] [place], [place], [address] Hematocrit (Bld) [Volume fraction] 26.0 % Low 34.0-46.6 [facility] Comment on above: Order Comment: Test( s) 905017-Jacjqwp B6was developed and its performance characteristicsdetermined by [employer]. It has not been cleared or approvedby the Food and Drug Administration. Performed By: #### L 3100.1725, L501.9520, L503.6150, L503.0106, L503.5510, L101.9900, L3300.0960, L3100.5450, L3300.8200, L3300.8000, L3130.0010, L503.6550, L501.5200 ####[facility] [address] [place], [place], [id number] [place] Lambda Light Chainson 05-25-2025 FR KAPPA LT CHN 41.4 mg/L Abnormal 3.3-19.4 [facility] Comment on above: Order Comment: Test( s) 254885-Llzpmcz B6was developed and its performance characteristicsdetermined by [employer]. It has not been cleared or approvedby the Food and Drug Administration. Performed By: #### L 3100.1725, L501.9520, L503.6150, L503.0106, L503.5510, L101.9900, L3300.0960, L3100.5450, L3300.8200, L3300.8000, L3130.0010, L503.6550, L501.5200 ####[facility] [address] [place], [place], [phone] FR LAMBDA LT CH 34.3 mg/L Abnormal 5.7-26.3 [facility] Comment on above: Order Comment: Test( s) 586709-Vjhjxga B6was developed and its performance characteristicsdetermined by [employer]. It has not been cleared or approvedby the Food and Drug Administration. Performed By: #### L 3100.1725, L501.9520, L503.6150, L503.0106, L503.5510, L101.9900, L3300.0960, L3100.5450, L3300.8200, L3300.8000, L3130.0010, L503.6550, L501.5200 ####[facility] [address] [place], [place], [address] KAPPA/LAMBDA % 1.21 Normal 0.26-1.65 [facility] Comment on above: Order Comment: Test( s) 279250-Asxijge B6was developed and its performance characteristicsdetermined by [employer]. It has not been cleared or approvedby the Food and Drug Administration. Performed By: #### L 3100.1725, L501.9520, L503.6150, L503.0106, L503.5510, L101.9900, L3300.0960, L3100.5450, L3300.8200, L3300.8000, L3130.0010, L503.6550, L501.5200 ####[facility] [address] [place], [place], [phone] L3300.8200on 05-25-2025 VITAMIN B6 41.6 ug/L Normal 3.4-65.2 [facility] Comment on above: Order Comment: Test( s) 819601-Azskwvk B6was developed and its performance characteristicsdetermined by [employer]. It has not been cleared or approvedby the Food and Drug Administration. Result Comment: Ve rified by repeat analysis Deficiency: <3.4 Marginal: 3.4 - 5.1 Adequate: >5.1 Performed By: #### L 3100.1725, L501.9520, L503.6150, L503.0106, L503.5510, L101.9900, L3300.0960, L3100.5450, L3300.8200, L3300.8000, L3130.0010, L503.6550, L501.5200 ####[facility] [address] [place], [place], [address] Vitamin B1, Thiamineon 05-25 VIT B1 THIAMINE 164.7 nmol/L Normal 66.5-200.0 [facility] Comment on above: Order Comment: Test( s) 326273-Hisqpgp B6was developed and its performance characteristicsdetermined by [employer]. It has not been cleared or approvedby the Food and Drug Administration. Result Comment: Perf ormed at: - [address] [id number] Director: Hussein Aguilar PhD, Phone: [phone] at: [facility] [address] [id number] Director: Rk Petty MD, Phone: [phone] Performed By: #### L 3100.1725, L501.9520, L503.6150, L503.0106, L503.5510, L101.9900, L3300.0960, L3100.5450, L3300.8200, L3300.8000, L3130.0010, L503.6550, L501.5200 ####[facility] [address] [place], [place], [phone] VINI w/ Reflex Mult Confirmon 05-21-2025 ANTI-DNA (DS)AB TNP Normal [facility] Comment on above: Performed By: #### L 3100.1725, L501.9520, L503.6150, L503.0106, L503.5510, L101.9900, L3300.0960, L3100.5450, L3300.8200, L3300.8000, L3130.0010, L503.6550, L501.5200 ####[facility] [address] [place], [place], [id number] ANTI-SS-A TNP Normal [facility] Comment on above: Performed By: #### L 3100.1725, L501.9520, L503.6150, L503.0106, L503.5510, L101.9900, L3300.0960, L3100.5450, L3300.8200, L3300.8000, L3130.0010, L503.6550, L501.5200 ####[facility] [address] [place], [place], [address] ANTI-SS-B TNP Normal [facility] Comment on above: Performed By: #### L 3100.1725, L501.9520, L503.6150, L503.0106, L503.5510, L101.9900, L3300.0960, L3100.5450, L3300.8200, L3300.8000, L3130.0010, L503.6550, L501.5200 ####[facility] [address] [place], [place], [phone] Vitamin D 1,25-Dihydroxyon 0 05-21-2025 VIT D 1,25 DIHY 20.8 pg/mL Abnormal 24.8-81.5 [facility] Comment on above: Performed By: #### L 3100.1725, L501.9520, L503.6150, L503.0106, L503.5510, L101.9900, L3300.0960, L3100.5450, L3300.8200, L3300.8000, L3130.0010, L503.6550, L501.5200 ####[facility] [address] [place], [place], [address] Ammoniaon 05-17-2025 Ammonia (P) [Moles/Vol] 16.9 umol/L Normal 11-51 [facility] Comment on above: Performed By: #### L 3100.1725, L501.9520, L503.6150, L503.0106, L503.5510, L101.9900, L3300.0960, L3100.5450, L3300.8200, L3300.8000, L3130.0010, L503.6550, L501.5200 ####[facility] [address] [place], [place], [address] Erythrocyte Sed Rateon 05-17 SED RATE 6 mm/hr Normal 0-30 [facility] Comment on above: Performed By: #### L 3100.1725, L501.9520, L503.6150, L503.0106, L503.5510, L101.9900, L3300.0960, L3100.5450, L3300.8200, L3300.8000, L3130.0010, L503.6550, L501.5200 ####[facility] [address] [place], [place], [phone] Erythrocyte folate measureme nt with hematocritOrdered By: Giovanny Brady on 05-17-2025 Hematocrit (Bld) [Volume fraction] 26.0 % Low 34.0-46.6 [facility] Erythrocyte sedimentation ra teOrdered By: Giovanny Brady on 05-17-2025 ESR (Bld) [Velocity] 6 mm/h 0-30 [facility] Ferritinon 05-17-2025 Ferritin [Mass/Vol] 936 ng/mL High 22-378 [facility] Comment on above: Performed By: #### L 3100.1725, L501.9520, L503.6150, L503.0106, L503.5510, L101.9900, L3300.0960, L3100.5450, L3300.8200, L3300.8000, L3130.0010, L503.6550, L501.5200 ####[facility] [address] [place], [place], [address] Ironon 05-17-2025 Iron [Mass/Vol] 106 ug/dL Normal 50-170 [facility] Comment on above: Performed By: #### L 3100.1725, L501.9520, L503.6150, L503.0106, L503.5510, L101.9900, L3300.0960, L3100.5450, L3300.8200, L3300.8000, L3130.0010, L503.6550, L501.5200 ####[facility] [address] [place], [place], [id number] Iron measurement (mass/mass) Ordered By: Giovanny Brady on 05-17-2025 Iron (Unsp spec) [Mass/Mass] 106 ug/dL 50-170 [facility] Magnesiumon 05-17-2025 Magnesium [Mass/Vol] 2.2 mg/dL Normal 1.5-2.2 [facility] Comment on above: Performed By: #### L 3100.1725, L501.9520, L503.6150, L503.0106, L503.5510, L101.9900, L3300.0960, L3100.5450, L3300.8200, L3300.8000, L3130.0010, L503.6550, L501.5200 ####[facility] [address] [place], [address] Magnesium measurement (mass/ volume)Ordered By: Giovanny Brady on 05-17-2025 Magnesium (Unsp spec) [Mass/Vol] 2.2 mg/dL 1.5-2.2 [facility] Neurology Visit Reporton Neurology Visit Report Normal [facility] Serum DNA double strand anti body assay (units/volume)Ordered By: Giovanny Brady on 05-17-2025 DNA double strand Ab Qn (S) [facility] Comment on above: Test not performed Serum Scl-70 antibody assay (units/volume)Ordered By: Giovanny Brady on 05-17-2025 SCL-70 extractable nuclear Ab Qn (S) [facility] Comment on above: Test not performed Serum immunoglobulin kappa l ight chains/immunoglobulin lambda light chains mass ratioOrdered By: Giovanny Brady on 05-17-2025 Immunoglobulin light chains.kappa/Immunoglo bulin light chains.lambda (S) [Mass ratio] 1.21 0.26-1.65 [facility] Serum or plasma calcitriol m easurement (mass/volume)Ordered By: Giovanny Brady on 05-17-2025 1,25-dihydroxyvitamin D3 [Mass/Vol] 20.8 pg/mL Low 24.8-81.5 [facility] Serum or plasma ferritin maris surement (mass/volume)Ordered By: Giovanny Brady on 05-17-2025 Ferritin [Mass/Vol] 936 ng/mL High 22-378 [facility] Serum or plasma immunoglobul in kappa light chains measurement (mass/volume)Ordered By: Giovanny Brady on 05-17-2025 Immunoglobulin light chains.kappa [Mass/Vol] 41.4 mg/L High 3.3-19.4 [facility] Serum or plasma thiamine maris surement (mass/volume)Ordered By: Giovanny Brady on 05-17-2025 Thiamine [Mass/Vol] 164.7 nmol/L 66.5-200.0 [facility] Comment on above: Performed at: [address] [id number] Director: Hussein Aguilar PhD, Phone: [phone] at: [facility] [address] [id number] Director: Rk Petty MD, Phone: [phone] TSH DL <= 0.005 mIU/L QnOrde red By: Giovanny Brady on 05-17-2025 TSH Qn 2.250 uIU/mL 0.300-4.200 [facility] Thyroid Stim Hormone (TSH)on 05-17-2025 TSH 2.250 uIU/mL Normal 0.300-4.200 [facility] Comment on above: Performed By: #### L 3100.1725, L501.9520, L503.6150, L503.0106, L503.5510, L101.9900, L3300.0960, L3100.5450, L3300.8200, L3300.8000, L3130.0010, L503.6550, L501.5200 ####[facility] [address] [place], [address] Venous blood ammonia measure mentOrdered By: Giovanny Brady on 05-17-2025 Ammonia (P) [Moles/Vol] 16.9 umol/L 11-51 [facility] Vitamin B12on 05-17-2025 Cobalamin (Vitamin B12) [Mass/Vol] 676 pg/mL Normal 180-914 [facility] Comment on above: Performed By: #### L 3100.1725, L501.9520, L503.6150, L503.0106, L503.5510, L101.9900, L3300.0960, L3100.5450, L3300.8200, L3300.8000, L3130.0010, L503.6550, L501.5200 ####[facility] [address] [place], [address] Vitamin B12 ser/plasOrdered By: Giovanny Brady on 05-17-2025 Cobalamin (Vitamin B12) [Mass/Vol] 676 pg/mL 180-914 [facility] Anion gap in Serum or Plasma Ordered By: Bonnie Chang on 05-04-2025 Anion gap [Moles/Vol] 15 mmol/L 01-14 [facility] BUN/creatinine ratioOrdered By: Bonnie Chang on 05-04-2025 Urea nitrogen/Creatinine [Mass ratio] 11.7 mg/mg 06-21 [facility] Bilirubin, totalOrdered By: Bonnie Chang on 05-04-2025 Bilirubin [Mass/Vol] 0.27 mg/dL 0.00-1.30 [facility] CBC-Complete Blood Cnt No Di ffon 05-04-2025 Erythrocyte distribution width (RBC) [Ratio] 12.6 % Normal 11.6-14.6 [facility] Comment on above: Order Comment: 516-1 Performed By: #### L 501.2300, L500.4050, L100.0500 ####[facility] [address] [place], [address] Hematocrit (Bld) [Volume fraction] 25.9 % Low 37-47 [facility] Comment on above: Order Comment: 516-1 Performed By: #### L 501.2300, L500.4050, L100.0500 ####[facility] [address] [place], [address] Hemoglobin (Bld) [Mass/Vol] 8.5 g/dL Low 12.0-15.0 [facility] Comment on above: Order Comment: 516-1 Performed By: #### L 501.2300, L500.4050, L100.0500 ####[facility] [address] [place], [address] MCH (RBC) [Entitic mass] 31.5 pg Normal 27.0-32.0 [facility] Comment on above: Order Comment: 516-1 Performed By: #### L 501.2300, L500.4050, L100.0500 ####[facility] [address] [place], [address] MCHC (RBC) [Mass/Vol] 32.8 g/dL Normal 32-36 [facility] Comment on above: Order Comment: 516-1 Performed By: #### L 501.2300, L500.4050, L100.0500 ####[facility] [address] [place], [address] MCV (RBC) [Entitic vol] 95.9 fL Normal 81-99 [facility] Comment on above: Order Comment: 516-1 Performed By: #### L 501.2300, L500.4050, L100.0500 ####[facility] [address] [place], [address] Platelet mean volume (Bld) [Entitic vol] 10.8 fL Normal 6.2-12.0 [facility] Comment on above: Order Comment: 516-1 Performed By: #### L 501.2300, L500.4050, L100.0500 ####[facility] [address] [place], [address] Platelets (Bld) [#/Vol] 301 10*3/uL Normal 150-450 [facility] Comment on above: Order Comment: 516-1 Performed By: #### L 501.2300, L500.4050, L100.0500 ####[facility] [address] [place], [address] RBC (Bld) [#/Vol] 2.70 10*6/uL Low 4.2-5.4 [facility] Comment on above: Order Comment: 516-1 Performed By: #### L 501.2300, L500.4050, L100.0500 ####[facility] [address] [place], [address] RDW SD 43.2 fl Normal 35.1-43.9 [facility] Comment on above: Order Comment: 516-1 Performed By: #### L 501.2300, L500.4050, L100.0500 ####[facility] [address] [place], [address] WBC (Bld) [#/Vol] 8.4 10*3/uL Normal 4.4-11.0 [facility] Comment on above: Order Comment: 51- Performed By: #### L 501.2300, L500.4050, L100.0500 ####[facility] [address] [place], [address] Carbon dioxide, total [Moles /volume] in Central venous bloodOrdered By: Bonnie Chang on 05-04-2025 CO2 [Moles/Vol] 21.5 mmol/L 21.0-32.0 [facility] Chloride assayOrdered By: Nick Chang on 05-04-2025 Chloride [Moles/Vol] 103 mmol/L 98-108 [facility] Comprehensive Metabolic Prof ilon 05-04-2025 Albumin [Mass/Vol] 4.2 g/dL Normal 3.4-4.8 [facility] Comment on above: Order Comment: 516-1 Performed By: #### L 501.2300, L500.4050, L100.0500 ####[facility] [address] [place], [address] Albumin/Globulin [Mass ratio] 1.9 {ratio} Normal 0.9-2.4 [facility] Comment on above: Order Comment: 516-1 Performed By: #### L 501.2300, L500.4050, L100.0500 ####[facility] [address] [place], [address] ALK PHOS 78 U/L Normal 35-104 [facility] Comment on above: Order Comment: 516-1 Performed By: #### L 501.2300, L500.4050, L100.0500 ####[facility] [address] [place], [address] ALT [Catalytic activity/Vol] 14 U/L Normal <=34 [facility] Comment on above: Order Comment: 516-1 Performed By: #### L 501.2300, L500.4050, L100.0500 ####[facility] [address] [place], [address] AST [Catalytic activity/Vol] 16 U/L Normal <=31 [facility] Comment on above: Order Comment: 516-1 Performed By: #### L 501.2300, L500.4050, L100.0500 ####[facility] [address] [place], [address] Bilirubin [Mass/Vol] 0.27 mg/dL Normal 0.00-1.30 [facility] Comment on above: Order Comment: 516-1 Performed By: #### L 501.2300, L500.4050, L100.0500 ####[facility] [address] [place], [address] BUN/CRE 11.7 RATIO Normal 10-20 [facility] Comment on above: Order Comment: 516-1 Performed By: #### L 501.2300, L500.4050, L100.0500 ####[facility] [address] [place], [address] Calcium [Mass/Vol] 9.1 mg/dL Normal 7.6-11.0 [facility] Comment on above: Order Comment: 516-1 Performed By: #### L 501.2300, L500.4050, L100.0500 ####[facility] [address] [place], [address] Chloride [Moles/Vol] 103 mmol/L Normal 98-108 [facility] Comment on above: Order Comment: 516-1 Performed By: #### L 501.2300, L500.4050, L100.0500 ####[facility] [address] [place], [address] CO2 [Moles/Vol] 21.5 mmol/L Normal 21.0-32.0 [facility] Comment on above: Order Comment: 516-1 Performed By: #### L 501.2300, L500.4050, L100.0500 ####[facility] [address] [place], [address] Creatinine [Mass/Vol] 4.78 mg/dL High 0.70-1.20 [facility] Comment on above: Order Comment: 516-1 Performed By: #### L 501.2300, L500.4050, L100.0500 ####[facility] [address] [place], [address] GAP 15 Normal 5-15 [facility] Comment on above: Order Comment: 516-1 Performed By: #### L 501.2300, L500.4050, L100.0500 ####[facility] [address] [place], [address] GFR/1.73 sq M.predicted among non-blacks MDRD (S/P/Bld) [Vol rate/Area] 9 mL/min/{1.73_m2} Low >60 [facility] Comment on above: Order Comment: 516-1 Result Comment: mL/m in/1.73m2 CKD-EPI Creatinine Equation (2020) Performed By: #### L 501.2300, L500.4050, L100.0500 ####[facility] [address] [place], [address] Globulin (S) [Mass/Vol] 2.3 g/dL Normal 2.2-4.2 [facility] Comment on above: Order Comment: 516-1 Performed By: #### L 501.2300, L500.4050, L100.0500 ####[facility] [address] [place], [address] Glucose [Mass/Vol] 131 mg/dL High 70-99 [facility] Comment on above: Order Comment: 516-1 Performed By: #### L 501.2300, L500.4050, L100.0500 ####[facility] [address] [place], [address] Potassium [Moles/Vol] 3.6 mmol/L Normal 3.3-5.1 [facility] Comment on above: Order Comment: 516-1 Performed By: #### L 501.2300, L500.4050, L100.0500 ####[facility] [address] [place], [address] Sodium [Moles/Vol] 140 mmol/L Normal 133-145 [facility] Comment on above: Order Comment: 516-1 Performed By: #### L 501.2300, L500.4050, L100.0500 ####[facility] [address] [place], [address] T PROT 6.5 g/dL Normal 5.9-8.4 [facility] Comment on above: Order Comment: 516-1 Performed By: #### L 501.2300, L500.4050, L100.0500 ####[facility] [address] [place], [address] Urea nitrogen [Mass/Vol] 56 mg/dL High 4-19 [facility] Comment on above: Order Comment: 516-1 Performed By: #### L 501.2300, L500.4050, L100.0500 ####[facility] [address] [place], [address] Erythrocyte distribution wid th ratioOrdered By: Bonnie Chang on 05-04-2025 Erythrocyte distribution width (RBC) [Ratio] 12.6 % 11.6-14.6 [facility] Erythrocyte distribution wid th standard deviationOrdered By: Bonnie Chang on 05-04-2025 Erythrocyte distribution width (RBC) [Ratio] 43.2 fl 35.1-43.9 [facility] Glomerular filtration rate ( GFR) estimation/1.73 sq m using serum, plasma, or whole bOrdered By: Bonnie Chang on 05-04-2025 GFR/1.73 sq M.predicted among non-blacks MDRD (S/P/Bld) [Vol rate/Area] 9 mL/min/{1.73_m2} Low >60 [facility] Comment on above: mL/min/1.73m2 CKD-EP I Creatinine Equation (2020) Hematocrit Auto (Bld) [Volum e fraction]Ordered By: Bonnie Chang on 05-04-2025 Hematocrit (Bld) [Volume fraction] 25.9 % Low 37-47 [facility] Hemoglobin measurementOrdere d By: Bonnie Chang on 05-04-2025 Hemoglobin (Bld) [Mass/Vol] 8.5 g/dL Low 12.0-15.0 [facility] Laboratory - Chemistry and C hemistry - challengeOrdered By: Bonnie Chang on 05-04-2025 AST [Catalytic activity/Vol] 16 U/L <32 [facility] MCV (mean corpuscular volume ) determinationOrdered By: Bonnie Chang on 05-04-2025 MCV (RBC) [Entitic vol] 95.9 fL 81-99 [facility] Mean corpuscular hemoglobin (MCH) determinationOrdered By: Bonnie Chang on 05-04-2025 MCH (RBC) [Entitic mass] 31.5 pg 27.0-32.0 [facility] Mean corpuscular hemoglobin concentration (MCHC) determinationOrdered By: Bonnie Chang on 05-04-2025 MCHC (RBC) [Mass/Vol] 32.8 g/dL 32-36 [facility] Mean platelet volume determi nationOrdered By: Bonnie Chang on 05-04-2025 Platelet mean volume (Bld) [Entitic vol] 10.8 fL 6.2-12.0 [facility] Phosphoruson 05-04-2025 Phosphate [Mass/Vol] 4.8 mg/dL High 2.7-4.5 [facility] Comment on above: Order Comment: 516-1 Performed By: #### L 501.2300, L500.4050, L100.0500 ####[facility] [address] [facility] [place], [address] Platelet countOrdered By: Nick Chang on 05-04-2025 Platelets (Bld) [#/Vol] 301 10*3/uL 150-450 [facility] Potassium measurement (mass/ volume)Ordered By: Bonnie Chang on 05-04-2025 Potassium (Unsp spec) [Mass/Vol] 3.6 mmol/L 3.3-5.1 [facility] RBC Auto (Bld) [#/Vol]Ordere d By: Bonnie Chang on 05-04-2025 RBC (Bld) [#/Vol] 2.70 10*6/uL Low 4.2-5.4 [facility] Serum creatinine measurement (mass/volume)Ordered By: Bonnie Chang on 05-04-2025 Creatinine [Mass/Vol] 4.78 mg/dL High 0.70-1.20 [facility] Serum globulin measurementOr dered By: Bonnie Chang on 05-04-2025 Globulin (S) [Mass/Vol] 2.3 g/dL 2.2-4.2 [facility] Serum glucose measurement (m ass/volume)Ordered By: Bonnie Chang on 05-04-2025 Glucose [Mass/Vol] 131 mg/dL High 70-99 [facility] Serum or plasma alanine mckeon otransferase (ALT) measurementOrdered By: Bonnie Chang on 05-04-2025 ALT [Catalytic activity/Vol] 14 U/L <35 [facility] Serum or plasma albumin yamil urement (mass/volume)Ordered By: Bonnie Chang on 05-04-2025 Albumin [Mass/Vol] 4.2 g/dL 3.4-4.8 [facility] Serum or plasma albumin/glob ulin mass ratioOrdered By: Bonnie Chang on 05-04-2025 Albumin/Globulin [Mass ratio] 1.9 {ratio} 0.9-2.4 [facility] Serum or plasma alkaline anthony sphatase measurementOrdered By: Bonnie Chang on 05-04-2025 ALP [Catalytic activity/Vol] 78 U/L 35-104 [facility] Serum or plasma calcium yamil urement (mass/volume)Ordered By: Bonnie Chang on 05-04-2025 Calcium [Mass/Vol] 9.1 mg/dL 7.6-11.0 [facility] Serum or plasma urea nitroge n measurement (mass/volume)Ordered By: Bonnie Chang on 05-04-2025 Urea nitrogen [Mass/Vol] 56 mg/dL High 4-19 [facility] Sodium levelOrdered By: Gray Chang on 05-04-2025 Sodium [Moles/Vol] 140 mmol/L 133-145 [facility] Total proteinOrdered By: Aman Chang on 05-04-2025 Protein [Mass/Vol] 6.5 g/dL 5.9-8.4 [facility] White blood cell (WBC) count Ordered By: Bonnie Chang on 05-04-2025 WBC (Bld) [#/Vol] 8.4 10*3/uL 4.4-11.0 [facility] CNPNon 04-29-2025 MARY Telephone (HEMAWS) ZAHIDA BELTRE ([id number]) 1955 F Date Time Provider Department 04/29/25 [...] stability. (Orders entered) Pt currently resides in [facility]. I attempted to reach spouse number ivanna busfrancis. No answer on daughter Jeanette's phone (she was present for appt) Case and labs reviewed with Dr Vivas. Sultana Garcia, [employer] EDUC[employer] DRIVER.Jazzy Munguia LPN 04/29/2025 2:52 PM Addendum I called and spoke to Hope, patient's nurse at [facility]. Patient is scheduled to see [...] BLOOD COUNT AND DIFFERENTIAL [SQCBCDIF] Order #: [id number] FUTURE Prescriptions as of 04/29/2025 - cloNIDine HCl (CATAPRES) 0.3 mg tablet Take 0.3 mg by mouth three times a day. - cranberry fruit (CRANBERRY) 450 mg tab Take 450 mg by mouth once daily. - famotidine (PEPCID) 20 mg tablet Take 20 mg by mouth daily at bedtime. - sodium phosphate,mono-dibasic (FLEET ENEMA CA) 1 suppository by RECTAL route as needed. [...] examination [Z01.818] 03/23/2024 Coronary artery disease involving [place]*03/23/2024 HTN (hypertension) [I10] 03/23/2024 Mixed hyperlipidemia [E78.2] 03/23/2024 Subdural hemorrhage (HCC) [I62.00] 06/18/2024 SDH (subdural hematoma) (HCC) [S06.5XAA] 06/18/2024 Fall [W19.XXXA] 06/19/2024 Age-related osteoporosis without current pathol*04/13/2024 Dependence on renal dialysis (HCC) [Z99.2] 04/07/2024 (more content not included)... Normal [facility] Evelyn 04-22-2025 MARY Telephone (HEMAWS) ZAHIDA BELTRE ([id number]) 1955 F Date Time Provider Department 04/22/25 SULTANA GARCIA During your visit today, we recorded the following information about you: Yazmin Medel 04/22/2025 10:25 AM Signed Please fax 04/20 lab results to [facility] at [phone] Radha Nichols LPN 04/22/2025 11:06 AM Signed Labs faxed as directed. Radha Nichols LPN Allergies As of Date: 04/22/2025 Noted Allergy Reaction AMLODIPINE 09/13/2016 14 - Other: See Comments ASPARTAME 04/20/2025 14 - Other: See Comments Comments: Extremely thirsty Date Reviewed: 04/20/2025 Reviewed by: Sultana Garcia - Fully Assessed Reason for Visit: Electronic Communication [240] Prescriptions as of 04/22/2025 - cloNIDine HCl (CATAPRES) 0.3 mg tablet Take 0.3 mg by mouth three times a day. - cranberry fruit (CRANBERRY) 450 mg tab Take 450 mg by mouth once daily. - famotidine (PEPCID) 20 mg tablet Take 20 mg by mouth daily at bedtime. - sodium phosphate,mono-dibasic (FLEET ENEMA CA) 1 suppository by RECTAL route as needed. [...] examination [Z01.818] 03/23/2024 Coronary artery disease involving [place]*03/23/2024 HTN (hypertension) [I10] 03/23/2024 Mixed hyperlipidemia [E78.2] 03/23/2024 Subdural hemorrhage (HCC) [I62.00] 06/18/2024 SDH (subdural hematoma) (HCC) [S06.5XAA] 06/18/2024 Fall [W19.XXXA] 06/19/2024 Age-related osteoporosis without current pathol*04/13/2024 Dependence on renal dialysis (HCC) [Z99.2] 04/07/2024 06/24/2024 Chronic anemia [D64.9] 06/19/2024 Hyponatremia [E87.1] 06/19/2024 06/24/2024 Encounter Status:Closed by RADHA NICHOLS on 04/22/25 Normal [facility] COPPER BLOODOrdered By: Giovanni Hanson on 04-21-2025 Copper [Mass/Vol] 107 ug/dL 80 - 155 ug/dL [facility] Comment on above: This test was hu ped, and its performance characteristics determined by the [facility] Department of Pathology and Laboratory Medicine. It has not been cleared or approved by the FDA. The [facility] Department of Pathology and Laboratory Medicine is regulated under CLIA as qualified to perform high-complexity testing. This test is used for clinical purposes. It should not be regarded as investigational or for research. ERYTHROPOIETIN/EPOon 025 Erythropoietin (EPO) Qn 13.2 [IU]/L [facility] Erythropoietin (EPO) Qnon Interpretation and review of laboratory results Normal [facility] Test analyzed by the [employer] DxI method. [facility] FERRITINon 04-21-2025 Ferritin [Mass/Vol] 987.0 ng/mL High 14.7 - 205.1 ng/mL [facility] FOLATE, SERUMon 04-21-2025 Folate [Mass/Vol] ng/mL 4.7 - PINF ng/mL [facility] Comment on above: A result of > 20 ng/ mL is not necessarily indicative of a pathologic or treatable condition: it reflects a limitation of the test methodology. Assay reference range: 4.8 to 24.2 ng/mL. Suitable for detection of folate deficiency. Reference: Folate III (Folate III) [package insert V 1.0 [place]uvian]. [facility], [place], [place]: July 2015. Ferritin [Mass/Vol]on 2024 Interpretation and review of laboratory results Abnormal [facility] Iron and Iron binding capaci ty panelon 04-21-2025 Interpretation and review of laboratory results Normal [facility] Iron [Mass/Vol] 104 ug/dL 41 - 186 ug/dL [facility] Iron binding capacity [Mass/Vol] 342 ug/dL 232 - 386 ug/dL [facility] Iron/TIBC [Molar ratio] 30.4 % 15.0 - 57.0 % [facility] No Panel InformationOrdered By: Paris Hanson on 04-21-2025 Interpretation and review of laboratory results Normal [facility] No Panel Informationon 04-21 Interpretation and review of laboratory results Normal [facility] VITAMIN B12on 04-21-2025 Cobalamin (Vitamin B12) [Mass/Vol] 840 pg/mL 232 - 1245 pg/mL [facility] ZINC BLDon 04-21-2025 Zinc [Mass/Vol] 84 ug/dL 60 - 120 ug/dL [facility] Comment on above: This test was hu pozo, and its performance characteristics determined by the [facility] Department of Pathology and Laboratory Medicine. It has not been cleared or approved by the FDA. The [facility] Department of Pathology and Laboratory Medicine is regulated under CLIA as qualified to perform high-complexity testing. This test is used for clinical purposes. It should not be regarded as investigational or for research. CBC panel Auto (Bld)on 04-20 Erythrocyte distribution width (RBC) [Ratio] 12.6 % 11.5 - 15.0 % [facility] Hematocrit (Bld) [Volume fraction] 31.1 % Low 36.0 - 46.0 % [facility] Hemoglobin (Bld) [Mass/Vol] 10.3 g/dL Low 11.5 - 15.5 g/dL [facility] Interpretation and review of laboratory results Abnormal [facility] MCH (RBC) [Entitic mass] 31.7 pg 26.0 - 34.0 pg [facility] MCHC (RBC) [Mass/Vol] 33.1 g/dL 30.5 - 36.0 g/dL [facility] MCV (RBC) [Entitic vol] 95.7 fL 80.0 - 100.0 fL [facility] Nucleated RBC (Bld) [#/Vol] NINF [facility] Platelet mean volume (Bld) [Entitic vol] 9.9 fL 9.0 - 12.7 fL [facility] Platelets (Bld) [#/Vol] 368 10*3/uL [facility] RBC (Bld) [#/Vol] 3.25 10*6/uL Low 3.90 - 5.2 0 m/uL [facility] WBC (Bld) [#/Vol] 12.16 10*3/uL [facility] Erythrocyte distribution width (RBC) [Ratio] 12.6 % Normal 11.5-15.0 [facility] Comment on above: Order Comment: Olgai bekah Type: BLOOD SPECIMEN Ordering Facility: [facility] Address: [address] [place] [address] Performed By: #### 5 8410-2 #### [facility] [id number] [address] [place] [address] [place] [facility] Hematocrit (Bld) [Volume fraction] 31.1 % Low 36.0-46.0 [facility] Comment on above: Order Comment: Dee Dee godfrey Type: BLOOD SPECIMEN Ordering Facility: [facility] Address: [address] [place] [address] Performed By: #### 5 8410-2 #### [facility] CLIA [id number] [address] [place] [address] [place] [facility] Hemoglobin (Bld) [Mass/Vol] 10.3 g/dL Low 11.5-15.5 [facility] Comment on above: Order Comment: Olgai bekah Type: BLOOD SPECIMEN Ordering Facility: [facility] Address: [address] [place] [address] Performed By: #### 5 8410-2 #### [facility] CLIA [id number] [address] [place] [address] [place] MCH (RBC) [Entitic mass] 31.7 pg Normal 26.0-34.0 [facility] Comment on above: Order Comment: Speci men Type: BLOOD SPECIMEN Ordering Facility: [facility] Address: [address] [place] [address] Performed By: #### 5 8410-2 #### [facility] CLIA [id number] [address] [place] [address] [place] MCHC (RBC) [Mass/Vol] 33.1 g/dL Normal 30.5-36.0 [facility] Comment on above: Order Comment: Speci men Type: BLOOD SPECIMEN Ordering Facility: [facility] Address: [address] [place] [address] Performed By: #### 5 8410-2 #### [facility] CLIA [id number] [address] [place] [address] [place] MCV (RBC) [Entitic vol] 95.7 fL Normal 80.0-100.0 [facility] Comment on above: Order Comment: Speci men Type: BLOOD SPECIMEN Ordering Facility: [facility] Address: [address] [place] [address] Performed By: #### 5 8410-2 #### [facility] CLIA [id number] [address] [place] [address] [place] Nucleated RBC (Bld) [#/Vol] 10*3/uL Normal <0.01 [facility] Comment on above: Order Comment: Speci men Type: BLOOD SPECIMEN Ordering Facility: [facility] Address: [address] [place] [address] Performed By: #### 5 8410-2 #### [facility] CLIA [id number] [address] [place] [address] [place] Platelet mean volume (Bld) [Entitic vol] 9.9 fL Normal 9.0-12.7 [facility] Comment on above: Order Comment: Speci men Type: BLOOD SPECIMEN Ordering Facility: [facility] Address: [address] [place] [address] Performed By: #### 5 8410-2 #### [facility] CLIA [id number] [address] [place] [address] [place] Platelets (Bld) [#/Vol] 368 10*3/uL Normal 150-400 [facility] Comment on above: Order Comment: Speci men Type: BLOOD SPECIMEN Ordering Facility: [facility] Address: [address] [place] [address] Performed By: #### 5 8410-2 #### [facility] CLIA [id number] [address] [place] [address] [place] RBC (Bld) [#/Vol] 3.25 10*6/uL Low 3.90-5.20 [facility] Comment on above: Order Comment: Speci men Type: BLOOD SPECIMEN Ordering Facility: [facility] Address: [address] [place] [address] Performed By: #### 5 8410-2 #### [facility] CLIA [id number] [address] [place] [address] [place] WBC (Bld) [#/Vol] 12.16 10*3/uL High 3.70-11.00 [facility] Comment on above: Order Comment: Speci men Type: BLOOD SPECIMEN Ordering Facility: [facility] Address: [address] [place] [address] Performed By: #### 5 8410-2 #### [facility] [id number] [address] [place] [address] [place] CNOVSPon 04-20-2025 CNOVSP [facility] ZAHIDA BELTRE ([id number]) 1955 F Date Time Provider Department 04/20/25 [...] daughter Jeanette 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 She is a poor historian, rather tangential. Currently resides in a correction facility since last year. Per chart review [...] daily at bedtime. sodium phosphate,mono-dibasic (FLEET ENEMA CA) 1 suppository by RECTAL route as needed. [...] Take 40 (more content not included)... Normal [facility] COPPER BLOODon 04-20-2025 Copper [Mass/Vol] 107 ug/dL Normal 80-155 [facility] Comment on above: Order Comment: Speci men Type: BLOOD SPECIMEN Ordering Facility: [facility] Address: [address] [place] [address] Result Comment: This test was developed, and its performance characteristics determined by the [facility] Department of Pathology and Laboratory Medicine. It has not been cleared or approved by the FDA. The [facility] Department of Pathology and Laboratory Medicine is regulated under CLIA as qualified to perform high-complexity testing. This test is used for clinical purposes. It should not be regarded as investigational or for research. Performed By: #### 5 763-8, COPPER #### [facility] CLIA [id number] [address] [place] [address] [place] Comprehensive metabolic 2000 panelOrdered By: Farnaz Mata on 04-20-2025 Albumin [Mass/Vol] 4.8 g/dL 3.9 - 4.9 g/dL [facility] ALP [Catalytic activity/Vol] 95 U/L 34 - 123 U/L [facility] ALT [Catalytic activity/Vol] 12 U/L 7 - 38 U/L [facility] Anion gap [Moles/Vol] 17 mmol/L High 8 - 15 mmol/L [facility] AST [Catalytic activity/Vol] 13 U/L 13 - 35 U/L [facility] Bilirubin [Mass/Vol] 0.2 mg/dL 0.2 - 1 .3 mg/dL [facility] Calcium [Mass/Vol] 9.9 mg/dL 8.5 - 10. 2 mg/dL [facility] Chloride [Moles/Vol] 100 mmol/L 98 - 10 7 mmol/L [facility] CO2 [Moles/Vol] 21 mmol/L Low 22 - 30 mmol/L [facility] Creatinine [Mass/Vol] 4.68 mg/dL High 0.58 - 0.96 mg/dL [facility] GFR/1.73 sq M.predicted among non-blacks MDRD (S/P/Bld) [Vol rate/Area] 9 mL/min/{1.73_m2} Low - PINF [facility] Comment on above: Estimated Glomerular Filtration Rate [...] 125 mg/dL High 74 - 99 mg/dL [facility] Comment on above: The [place] Diabete s Association (ADA) provides guidance for [...] Standards of Medical Care in Diabetes 2016, [place] Diabetes Association. Diabetes Care. 2016.39(Suppl 1). Interpretation and review of laboratory results Abnormal [facility] Potassium [Moles/Vol] 4.0 mmol/L 3.7 - 5.1 mmol/L [facility] Protein [Mass/Vol] 7.5 g/dL 6.3 - 8.0 g/dL [facility] Sodium [Moles/Vol] 138 mmol/L 136 - 144 mmol/L [facility] Urea nitrogen [Mass/Vol] 58 mg/dL High 7 - 21 mg/dL [facility] Comprehensive metabolic 2000 panelon 04-20-2025 Albumin [Mass/Vol] 4.8 g/dL Normal 3.9-4.9 [facility] Comment on above: Order Comment: Speci men Type: BLOOD SPECIMEN Ordering Facility: [facility] Address: [address] [place] [address] Performed By: #### 2 4323-8 #### [facility] CLIA [id number] [address] [place] [address] [place] ALP [Catalytic activity/Vol] 95 U/L Normal 34-123 [facility] Comment on above: Order Comment: Speci men Type: BLOOD SPECIMEN Ordering Facility: [facility] Address: [address] [place] [address] Performed By: #### 2 4323-8 #### [facility] CLIA [id number] [address] [place] [address] [place] ALT [Catalytic activity/Vol] 12 U/L Normal 7-38 [facility] Comment on above: Order Comment: Speci men Type: BLOOD SPECIMEN Ordering Facility: [facility] Address: [address] [place] [address] Performed By: #### 2 4323-8 #### [facility] CLIA [id number] [address] [place] [address] [place] Anion gap [Moles/Vol] 17 mmol/L High 8-15 [facility] Comment on above: Order Comment: Speci men Type: BLOOD SPECIMEN Ordering Facility: [facility] Address: [address] [place] [address] Performed By: #### 2 4323-8 #### [facility] CLIA [id number] [address] [place] [address] [place] AST [Catalytic activity/Vol] 13 U/L Normal 13-35 [facility] Comment on above: Order Comment: Speci men Type: BLOOD SPECIMEN Ordering Facility: [facility] Address: [address] [place] [address] Performed By: #### 2 4323-8 #### [facility] CLIA [id number] [address] [place] [address] [place] Bilirubin [Mass/Vol] 0.2 mg/dL Normal 0.2-1.3 [facility] Comment on above: Order Comment: Speci men Type: BLOOD SPECIMEN Ordering Facility: [facility] Address: [address] [place] [address] Performed By: #### 2 4323-8 #### [facility] [id number] [address] [place] [address] [place] Calcium [Mass/Vol] 9.9 mg/dL Normal 8.5-10.2 [facility] Comment on above: Order Comment: Speci men Type: BLOOD SPECIMEN Ordering Facility: [facility] Address: [address] [place] [address] Performed By: #### 2 4323-8 #### [facility] [id number] [address] [place] [address] [place] Chloride [Moles/Vol] 100 mmol/L Normal 98-107 [facility] Comment on above: Order Comment: Speci men Type: BLOOD SPECIMEN Ordering Facility: [facility] Address: [address] [place] [address] Performed By: #### 2 4323-8 #### [facility] [id number] [address] [place] [address] [place] CO2 [Moles/Vol] 21 mmol/L Low 22-30 [facility] Comment on above: Order Comment: Speci men Type: BLOOD SPECIMEN Ordering Facility: [facility] Address: [address] [place] [address] Performed By: #### 2 4323-8 #### [facility] CLIA [id number] [address] [place] [address] [place] Creatinine [Mass/Vol] 4.68 mg/dL High 0.58-0.96 [facility] Comment on above: Order Comment: Dee Dee godfrey Type: BLOOD SPECIMEN Ordering Facility: [facility] Address: [address] [place] [address] Performed By: #### 2 4323-8 #### [facility] CLIA [id number] [address] [place] [address] [place] eGFRcr SerPlBld CKD-EPI 2020 9 mL/min/1.73m??? Low >=60 [facility] Comment on above: Order Comment: Dee Dee godfrey Type: BLOOD SPECIMEN Ordering Facility: [facility] Address: [address] [place] [address] Result Comment: Saige mated Glomerular Filtration Rate [...] GFR. Performed By: #### 2 4323-8 #### [facility] [id number] [address] [place] [address] [place] Glucose [Mass/Vol] 125 mg/dL High 74-99 [facility] Comment on above: Order Comment: Dee Dee godfrey Type: BLOOD SPECIMEN Ordering Facility: [facility] Address: [address] [place], [place] [address] Result Comment: The [place] Diabetes Association (ADA) provides guidance for cutoff [...] Standards of Medical Care in Diabetes 2016, [place] Diabetes Association. Diabetes Care. 2016.39(Suppl 1). Performed By: #### 2 4323-8 #### [facility] CLIA [id number] [address] [place] [address] [place] Potassium [Moles/Vol] 4.0 mmol/L Normal 3.7-5.1 [facility] Comment on above: Order Comment: Dee Dee godfrey Type: BLOOD SPECIMEN Ordering Facility: [facility] Address: [address] [place] [address] Performed By: #### 2 4323-8 #### [facility] [id number] [address] [place] [address] [place] Protein [Mass/Vol] 7.5 g/dL Normal 6.3-8.0 [facility] Comment on above: Order Comment: Dee Dee godfrey Type: BLOOD SPECIMEN Ordering Facility: [facility] Address: [address] [place] [address] Performed By: #### 2 4323-8 #### [facility] [id number] [address] [place] [address] [place] Sodium [Moles/Vol] 138 mmol/L Normal 136-144 [facility] Comment on above: Order Comment: Olgai bekah Type: BLOOD SPECIMEN Ordering Facility: [facility] Address: [address] [place] [address] Performed By: #### 2 4323-8 #### [facility] [id number] [address] [place] [address] [place] Urea nitrogen [Mass/Vol] 58 mg/dL High 7-21 [facility] Comment on above: Order Comment: Olgai men Type: BLOOD SPECIMEN Ordering Facility: [facility] Address: [address] [place] [address] Performed By: #### 2 4323-8 #### [facility] CLIA [id number] [address] [place] [address] [place] EPO SerPl-aCncon 04-20-2025 Erythropoietin (EPO) Qn 13.2 mIU/mL Normal 2.6-18.5 [facility] Comment on above: Order Comment: Speci men Type: BLOOD SPECIMENOrdering Facility: [facility] Address: [address] [place] [address] Performed By: #### 1 5061-5 ####[facility] [id number] [place] [address] [place] Ferritin SerPl-mCncon 2024 Ferritin [Mass/Vol] 987.0 ng/mL High 14.7-205.1 [facility] Comment on above: Order Comment: Speci men Type: BLOOD SPECIMEN Ordering Facility: [facility] Address: [address] [place] [address] Performed By: #### 5 0190-8, 2276-4, 2132-9, 2284-8 #### [facility] CLIA [id number] [address] [place] [address] [place] Folate SerPl-mCncon 04-20-20 25 Folate [Mass/Vol] ng/mL Normal >4.7 [facility] Comment on above: Order Comment: Speci [facility] Type: BLOOD SPECIMEN Ordering Facility: [facility] Address: [address] [place] [address] Result Comment: A re sult of > 20 ng/mL is not necessarily indicative of a pathologic or treatable condition: it reflects a limitation of the test methodology. Assay reference range: 4.8 to 24.2 ng/mL. Suitable for detection of folate deficiency. Reference: Folate III (Folate III) [package insert V 1.0 [place]uvian]. [employer] [facility], [place] [employer], [place]: July 2015. Performed By: #### 5 0190-8, 6-4, 9, 2284-04 #### [facility] CLIA [id number] [address] [place] [address] [place] Iron and Iron binding capaci ty panelon 04-20-2025 Iron [Mass/Vol] 104 ug/dL Normal 41-186 [facility] Comment on above: Order Comment: Speci men Type: BLOOD SPECIMEN Ordering Facility: [facility] Address: [address] [place] [address] Performed By: #### 5 0190-8, 2275-4, 2132-05, 2284-04 #### [facility] CLIA [id number] [address] [place] [address] [place] Iron binding capacity [Mass/Vol] 342 ug/dL Normal 232-386 [facility] Comment on above: Order Comment: Speci men Type: BLOOD SPECIMEN Ordering Facility: [facility] Address: [address] [place] [address] Performed By: #### 5 0190-8, 2275-4, 2132-05, 2284-04 #### [facility] CLIA [id number] [address] [place] [address] [place] Iron/TIBC [Molar ratio] 30.4 % Normal 15.0-57.0 [facility] Comment on above: Order Comment: Speci men Type: BLOOD SPECIMEN Ordering Facility: [facility] Address: [address] [place] [address] Performed By: #### 5 0190-8, 2275-4, 2132-05, 2284-04 #### [facility] CLIA [id number] [address] [place] [address] [place] Vit B12 SerPl-mCncon 025 Cobalamin (Vitamin B12) [Mass/Vol] 840 pg/mL Normal 232-1245 [facility] Comment on above: Order Comment: Speci men Type: BLOOD SPECIMEN Ordering Facility: [facility] Address: [address] [place] [address] Performed By: #### 5 0190-8, 2276-4, 2132-9, 2284-8 #### [facility] CLIA [id number] [address] [place] [address] [place] Zinc SerPl-mCncon 04-20-2025 Zinc [Mass/Vol] 84 ug/dL Normal 60-120 [facility] Comment on above: Order Comment: Speci men Type: BLOOD SPECIMEN Ordering Facility: [facility] Address: [address] [place] [address] Result Comment: This test was developed, and its performance characteristics determined by the [facility] Department of Pathology and Laboratory Medicine. It has not been cleared or approved by the FDA. The [facility] Department of Pathology and Laboratory Medicine is regulated under CLIA as qualified to perform high-complexity testing. This test is used for clinical purposes. It should not be regarded as investigational or for research. Performed By: #### 5 763-8, COPPER #### [facility] CLIA [id number] [address] [place] [address] [place] KEPPRA (LEVETIRACETAM)on KEPPRA 11.2 ug/mL Normal 10.0-40.0 [facility] Comment on above: Order Comment: 516.1 Result Comment: Perf ormed at: - [facility] [id number] Director: Rk Petty MD, Phone: [phone] Performed By: #### L 501.2300, L500.4050, L3310.0000, L100.0500 ####[facility] [address] [place], [place], [id number] Anion gap in Serum or Plasma Ordered By: Devendra Beverly on 04-06-2025 Anion gap [Moles/Vol] 16 mmol/L High 5-15 [facility] BUN/creatinine ratioOrdered By: Devendra Beverly on 04-06-2025 Urea nitrogen/Creatinine [Mass ratio] 12.3 mg/mg 10-20 [facility] Bilirubin, totalOrdered By: Devendra Beverly on 04-06-2025 Bilirubin [Mass/Vol] 0.24 mg/dL 0.00-1.30 [facility] CBC-Complete Blood Cnt No Di ffon 04-06-2025 Erythrocyte distribution width (RBC) [Ratio] 12.3 % Normal 11.6-14.6 [facility] Comment on above: Order Comment: 516.1 Performed By: #### L 501.2300, L500.4050, L3310.0000, L100.0500 ####[facility] [address] [place], [address] Hematocrit (Bld) [Volume fraction] 27.1 % Low 37-47 [facility] Comment on above: Order Comment: 516.1 Performed By: #### L 501.2300, L500.4050, L3310.0000, L100.0500 ####[facility] [address] [place], [address] Hemoglobin (Bld) [Mass/Vol] 8.9 g/dL Low 12.0-15.0 [facility] Comment on above: Order Comment: 516.1 Performed By: #### L 501.2300, L500.4050, L3310.0000, L100.0500 ####[facility] [address] [place], [address] MCH (RBC) [Entitic mass] 31.1 pg Normal 27.0-32.0 [facility] Comment on above: Order Comment: 516.1 Performed By: #### L 501.2300, L500.4050, L3310.0000, L100.0500 ####[facility] [address] [place], [address] MCHC (RBC) [Mass/Vol] 32.8 g/dL Normal 32-36 [facility] Comment on above: Order Comment: 516.1 Performed By: #### L 501.2300, L500.4050, L3310.0000, L100.0500 ####[facility] [address] [place], [address] MCV (RBC) [Entitic vol] 94.8 fL Normal 81-99 [facility] Comment on above: Order Comment: 516.1 Performed By: #### L 501.2300, L500.4050, L3310.0000, L100.0500 ####[facility] [address] [place], [address] Platelet mean volume (Bld) [Entitic vol] 10.6 fL Normal 6.2-12.0 [facility] Comment on above: Order Comment: 516.1 Performed By: #### L 501.2300, L500.4050, L3310.0000, L100.0500 ####[facility] [address] [place], [address] Platelets (Bld) [#/Vol] 301 10*3/uL Normal 150-450 [facility] Comment on above: Order Comment: 516.1 Performed By: #### L 501.2300, L500.4050, L3310.0000, L100.0500 ####[facility] [address] [place], [address] RBC (Bld) [#/Vol] 2.86 10*6/uL Low 4.2-5.4 [facility] Comment on above: Order Comment: 516.1 Performed By: #### L 501.2300, L500.4050, L3310.0000, L100.0500 ####[facility] [address] [place], [address] RDW SD 42.8 fl Normal 35.1-43.9 [facility] Comment on above: Order Comment: 516.1 Performed By: #### L 501.2300, L500.4050, L3310.0000, L100.0500 ####[facility] [address] [place], [address] WBC (Bld) [#/Vol] 9.2 10*3/uL Normal 4.4-11.0 [facility] Comment on above: Order Comment: 516.1 Performed By: #### L 501.2300, L500.4050, L3310.0000, L100.0500 ####[facility] [address] [place], [address] Carbon dioxide, total [Moles /volume] in Central venous bloodOrdered By: Devendra Beverly on 04-06-2025 CO2 [Moles/Vol] 21.7 mmol/L 21.0-32.0 [facility] Chloride assayOrdered By: Keaton Beverly on 04-06-2025 Chloride [Moles/Vol] 103 mmol/L 98-108 [facility] Comprehensive Metabolic Prof ilon 04-06-2025 Albumin [Mass/Vol] 4.3 g/dL Normal 3.4-4.8 [facility] Comment on above: Order Comment: 516.1 Performed By: #### L 501.2300, L500.4050, L3310.0000, L100.0500 ####[facility] [address] [place], [address] Albumin/Globulin [Mass ratio] 1.8 {ratio} Normal 0.9-2.4 [facility] Comment on above: Order Comment: 516.1 Performed By: #### L 501.2300, L500.4050, L3310.0000, L100.0500 ####[facility] [address] [place], [address] ALK PHOS 83 U/L Normal 35-104 [facility] Comment on above: Order Comment: 516.1 Performed By: #### L 501.2300, L500.4050, L3310.0000, L100.0500 ####[facility] [address] [place], [address] ALT [Catalytic activity/Vol] 14 U/L Normal <=34 [facility] Comment on above: Order Comment: 516.1 Performed By: #### L 501.2300, L500.4050, L3310.0000, L100.0500 ####[facility] [address] [place], [address] AST [Catalytic activity/Vol] 18 U/L Normal <=31 [facility] Comment on above: Order Comment: 516.1 Performed By: #### L 501.2300, L500.4050, L3310.0000, L100.0500 ####[facility] [address] [place], [address] Bilirubin [Mass/Vol] 0.24 mg/dL Normal 0.00-1.30 [facility] Comment on above: Order Comment: 516.1 Performed By: #### L 501.2300, L500.4050, L3310.0000, L100.0500 ####[facility] [address] [place], [address] BUN/CRE 12.3 RATIO Normal 10-20 [facility] Comment on above: Order Comment: 516.1 Performed By: #### L 501.2300, L500.4050, L3310.0000, L100.0500 ####[facility] [address] [place], [address] Calcium [Mass/Vol] 9.5 mg/dL Normal 7.6-11.0 [facility] Comment on above: Order Comment: 516.1 Performed By: #### L 501.2300, L500.4050, L3310.0000, L100.0500 ####[facility] [address] [place], [address] Chloride [Moles/Vol] 103 mmol/L Normal 98-108 [facility] Comment on above: Order Comment: 516.1 Performed By: #### L 501.2300, L500.4050, L3310.0000, L100.0500 ####[facility] [address] [place], [address] CO2 [Moles/Vol] 21.7 mmol/L Normal 21.0-32.0 [facility] Comment on above: Order Comment: 516.1 Performed By: #### L 501.2300, L500.4050, L3310.0000, L100.0500 ####[facility] [address] [place], [address] Creatinine [Mass/Vol] 4.45 mg/dL High 0.70-1.20 [facility] Comment on above: Order Comment: 516.1 Performed By: #### L 501.2300, L500.4050, L3310.0000, L100.0500 ####[facility] [address] [place], [address] GAP 16 High 5-15 [facility] Comment on above: Order Comment: 516.1 Performed By: #### L 501.2300, L500.4050, L3310.0000, L100.0500 ####[facility] [address] [place], [address] GFR/1.73 sq M.predicted among non-blacks MDRD (S/P/Bld) [Vol rate/Area] 10 mL/min/{1.73_m2} Low >60 [facility] Comment on above: Order Comment: 516.1 Result Comment: mL/m in/1.73m2 CKD-EPI Creatinine Equation (2020) Performed By: #### L 501.2300, L500.4050, L3310.0000, L100.0500 ####[facility] [address] [place], [address] Globulin (S) [Mass/Vol] 2.3 g/dL Normal 2.2-4.2 [facility] Comment on above: Order Comment: 516.1 Performed By: #### L 501.2300, L500.4050, L3310.0000, L100.0500 ####[facility] [address] [place], [address] Glucose [Mass/Vol] 139 mg/dL High 70-99 [facility] Comment on above: Order Comment: 516.1 Performed By: #### L 501.2300, L500.4050, L3310.0000, L100.0500 ####[facility] [address] [place], [address] Potassium [Moles/Vol] 4.0 mmol/L Normal 3.3-5.1 [facility] Comment on above: Order Comment: 516.1 Performed By: #### L 501.2300, L500.4050, L3310.0000, L100.0500 ####[facility] [address] [place], [address] Sodium [Moles/Vol] 140 mmol/L Normal 133-145 [facility] Comment on above: Order Comment: 516.1 Performed By: #### L 501.2300, L500.4050, L3310.0000, L100.0500 ####[facility] [address] [place], [address] T PROT 6.6 g/dL Normal 5.9-8.4 [facility] Comment on above: Order Comment: 516.1 Performed By: #### L 501.2300, L500.4050, L3310.0000, L100.0500 ####[facility] [address] [place], [address] Urea nitrogen [Mass/Vol] 55 mg/dL High 4-19 [facility] Comment on above: Order Comment: 516.1 Performed By: #### L 501.2300, L500.4050, L3310.0000, L100.0500 ####[facility] [facility] [address] [place], [address] Erythrocyte distribution wid th ratioOrdered By: Devendra Beverly on 04-06-2025 Erythrocyte distribution width (RBC) [Ratio] 12.3 % 11.6-14.6 [facility] Erythrocyte distribution wid th standard deviationOrdered By: Devendra Beverly on 04-06-2025 Erythrocyte distribution width (RBC) [Ratio] 42.8 fl 35.1-43.9 [facility] Glomerular filtration rate ( GFR) estimation/1.73 sq m using serum, plasma, or whole bOrdered By: Devendra Beverly on 04-06-2025 GFR/1.73 sq M.predicted among non-blacks MDRD (S/P/Bld) [Vol rate/Area] 10 mL/min/{1.73_m2} Low >60 [facility] Comment on above: mL/min/1.73m2 CKD-EP I Creatinine Equation (2020) Hematocrit Auto (Bld) [Volum e fraction]Ordered By: Devendra Beverly on 04-06-2025 Hematocrit (Bld) [Volume fraction] 27.1 % Low 37-47 [facility] Hemoglobin measurementOrdere d By: Devendra Beverly on 04-06-2025 Hemoglobin (Bld) [Mass/Vol] 8.9 g/dL Low 12.0-15.0 [facility] Laboratory - Chemistry and C hemistry - challengeOrdered By: Devendra Beverly on 04-06-2025 AST [Catalytic activity/Vol] 18 U/L <32 [facility] LevetiracetamOrdered By: Tee Beverly on 04-06-2025 levETIRAcetam [Mass/Vol] 11.2 ug/mL 10.0-40.0 [facility] Comment on above: Performed at: [facility] [address] [id number] Director: Rk Petty MD, Phone: [phone] MCV (mean corpuscular volume ) determinationOrdered By: Devendra Beverly on 04-06-2025 MCV (RBC) [Entitic vol] 94.8 fL 81-99 [facility] Mean corpuscular hemoglobin (MCH) determinationOrdered By: Devendra Beverly on 04-06-2025 MCH (RBC) [Entitic mass] 31.1 pg 27.0-32.0 [facility] Mean corpuscular hemoglobin concentration (MCHC) determinationOrdered By: Devendra Beverly on 04-06-2025 MCHC (RBC) [Mass/Vol] 32.8 g/dL 32-36 [facility] Mean platelet volume determi nationOrdered By: Devendra Beverly on 04-06-2025 Platelet mean volume (Bld) [Entitic vol] 10.6 fL 6.2-12.0 [facility] Phosphoruson 04-06-2025 Phosphate [Mass/Vol] 4.7 mg/dL High 2.7-4.5 [facility] Comment on above: Order Comment: 516.1 Performed By: #### L 501.2300, L500.4050, L3310.0000, L100.0500 ####[facility] [address] [place], [address] Platelet countOrdered By: Keaton Beverly on 04-06-2025 Platelets (Bld) [#/Vol] 301 10*3/uL 150-450 [facility] Potassium measurement (mass/ volume)Ordered By: Devendra Beverly on 04-06-2025 Potassium (Unsp spec) [Mass/Vol] 4.0 mmol/L 3.3-5.1 [facility] RBC Auto (Bld) [#/Vol]Ordere d By: Devendra Beverly on 04-06-2025 RBC (Bld) [#/Vol] 2.86 10*6/uL Low 4.2-5.4 [facility] Serum creatinine measurement (mass/volume)Ordered By: Devendra Beverly on 04-06-2025 Creatinine [Mass/Vol] 4.45 mg/dL High 0.70-1.20 [facility] Serum globulin measurementOr dered By: Devendra Beverly on 04-06-2025 Globulin (S) [Mass/Vol] 2.3 g/dL 2.2-4.2 [facility] Serum glucose measurement (m ass/volume)Ordered By: Devendra Beverly on 04-06-2025 Glucose [Mass/Vol] 139 mg/dL High 70-99 [facility] Serum or plasma alanine mckeon otransferase (ALT) measurementOrdered By: Devendra Beverly on 04-06-2025 ALT [Catalytic activity/Vol] 14 U/L <35 [facility] Serum or plasma albumin yamil urement (mass/volume)Ordered By: Devendra Beverly on 04-06-2025 Albumin [Mass/Vol] 4.3 g/dL 3.4-4.8 [facility] Serum or plasma albumin/glob ulin mass ratioOrdered By: Devendra Beverly on 04-06-2025 Albumin/Globulin [Mass ratio] 1.8 {ratio} 0.9-2.4 [facility] Serum or plasma alkaline anthony sphatase measurementOrdered By: Devendra Beverly on 04-06-2025 ALP [Catalytic activity/Vol] 83 U/L 35-104 [facility] Serum or plasma calcium yamil urement (mass/volume)Ordered By: Devendra Beverly on 04-06-2025 Calcium [Mass/Vol] 9.5 mg/dL 7.6-11.0 [facility] Serum or plasma urea nitroge n measurement (mass/volume)Ordered By: Devendra Beverly on 04-06-2025 Urea nitrogen [Mass/Vol] 55 mg/dL High 4-19 [facility] Sodium levelOrdered By: Collin Beverly on 04-06-2025 Sodium [Moles/Vol] 140 mmol/L 133-145 [facility] Total proteinOrdered By: Tee Beverly on 04-06-2025 Protein [Mass/Vol] 6.6 g/dL 5.9-8.4 [facility] White blood cell (WBC) count Ordered By: Devendra Beverly on 04-06-2025 WBC (Bld) [#/Vol] 9.2 10*3/uL 4.4-11.0 [facility] Urine Cultureon 04-01-2025 URC Normal [facility] Comment on above: Performed By: #### L 400.0001, M100.2200 ####[facility] [address] [place], [address] Bilirubin Test strip Ql (U)O rdered By: Devendra Beverly on 03-30-2025 Bilirubin Ql (U) Negative Negative [facility] Ketones Test strip Ql (U)Ord ered By: Devendra Beverly on 03-30-2025 Ketones Ql (U) Negative Negative [facility] Microscopic analysis of urin e for red blood cells (RBC)Ordered By: Devendra Beverly on 03-30-2025 Microscopic analysis of urine for red blood cells (RBC) 0 SEEN /hpf 0-5 [facility] Mucus LM Ql (Urine sed)Order ed By: Devendra Beverly on 03-30-2025 Mucus Ql (Urine sed) 0 SEEN /hpf [facility] Nitrite Test strip Ql (U)Ord ered By: Devendra Beverly on 03-30-2025 Nitrite Ql (U) Negative Negative [facility] Protein Test strip Ql (U)Ord ered By: Devendra Beverly on 03-30-2025 Protein Ql (U) 100 mg/dl High Negative [facility] Squamous epithelial cells de tection in urine sediment by light microscopyOrdered By: Devendra Beverly on 03-30-2025 Epithelial cells.squamous LM Ql (Urine sed) 0-5 SEEN /hpf 5-10 [facility] Transitional cells detection in urine sediment by light microscopyOrdered By: Devendra Beverly on 03-30-2025 Transitional cells LM Ql (Urine sed) 0-5 SEEN /hpf 0-5 [facility] Urinalysis, Completeon 03-30 BACTERIA 1+ /hpf Normal None Seen [facility] Comment on above: Order Comment: CLEAN CATCH Performed By: #### L 400.0001, M100.0 ####[facility] [address] [place], [address] EPI,SQUAMOUS 0-5 SEEN Normal 5-10 [facility] Comment on above: Order Comment: CLEAN CATCH Performed By: #### L 400.0001, M100.2200 ####[facility] [address] [place], [address] WBC 25-50 SEEN Normal 0-5 [facility] Comment on above: Order Comment: CLEAN CATCH Performed By: #### L 400.0001, M100.2200 ####[facility] [address] [place], [address] EPI,TRANSITION 0-5 SEEN Normal 0-5 [facility] Comment on above: Order Comment: CLEAN CATCH Performed By: #### L 400.0001, M100.2200 ####[facility] [address] [place], [address] Mucus Ql (Urine sed) 0 SEEN Normal [facility] Comment on above: Order Comment: CLEAN CATCH Performed By: #### L 400.0001, M100.2200 ####[facility] [address] [place], [address] RBC 0 SEEN Normal 0-5 [facility] Comment on above: Order Comment: CLEAN CATCH Performed By: #### L 400.0001, M100.2200 ####[facility] [address] [place], [address] Urine clarityOrdered By: Tee Beverly on 03-30-2025 Clarity (U) Sl. Cloudy Clear [facility] Urine color determinationOrd ered By: Devendra Beverly on 03-30-2025 Color (U) Yellow Yellow [facility] Urine cultureOrdered By: Tee Beverly on 03-30-2025 Bacteria identified Cx Nom (U) Morganella morganii sp morgani Abnormal [facility] Urine glucose detectionOrder ed By: Devendra Beverly on 03-30-2025 Glucose Ql (U) 100 mg/dl High Normal [facility] Urine leukocyte esterase det ection by dipstickOrdered By: Devendra Beverly on 03-30-2025 Leukocyte esterase Test strip Ql (U) 500 /ul High Negative [facility] Urine pHOrdered By: Devendra warren on 03-30-2025 pH (U) 7.0 [pH] 5.0 - 8.0 [facility] Urine sediment bacteria coun t by microscopy (number/high power field)Ordered By: Devendra Beverly on 03-30-2025 Bacteria LM.HPF (Urine sed) [#/Area] 1 /[HPF] None Seen [facility] Urine specific gravity measu rementOrdered By: Devendra Beverly on 03-30-2025 Specific gravity (U) [Rel density] 1.010 1.002-1.030 [facility] Urine urobilinogen measureme ntOrdered By: Devendra Beverly on 03-30-2025 Urobilinogen Ql (U) Normal mg/dl Normal [facility] White blood cell countOrdere d By: Devendra Beverly on 03-30-2025 White blood cell count 25-50 SEEN /hpf 0-5 [facility] Magnesiumon 02-12-2025 Magnesium [Mass/Vol] 2.2 mg/dL Normal 1.5-2.2 [facility] Comment on above: Performed By: #### L 501.5200 ####[facility] [address] [place], [place], [id number] Magnesium measurement (mass/ volume)Ordered By: Devendra Beverly on 02-12-2025 Magnesium (Unsp spec) [Mass/Vol] 2.2 mg/dL 1.5-2.2 [facility] Vitamin D,25 Hydroxyon 01-13 Vitamin D 25-OH 57.4 ng/mL Normal 30-100 [facility] Comment on above: Order Comment: 516-1 Result Comment: Lois min D StatusDeficiency: <20 ng/mL (50nmol/L)Insufficiency: 20-30 ng/mL (50-75 nmol/L)Sufficiency: 30-100 ng/mL (75-250 nmol/L)Toxicity: >100 ng/mL (>250 nmol/L) Performed By: #### L 506.1001 ####[facility] [address] [place], [place], [id number] Anion gap in Serum or Plasma Ordered By: Johana Landrum on 12-02-2024 Anion gap [Moles/Vol] 17 mmol/L High 5-15 [facility] BUN/creatinine ratioOrdered By: Johana Landrum on 12-02-2024 Urea nitrogen/Creatinine [Mass ratio] 13.2 mg/mg - [facility] Basic Metabolic Profile (BMP )on 12-02-2024 BUN/CRE 13.2 RATIO Normal - [facility] Comment on above: Order Comment: 516.1 Performed By: #### L 506.1001, L501.0900, L100.0500, L500.2500 ####[facility] [address] [place], [address] Calcium [Mass/Vol] 9.4 mg/dL Normal 7.6-11.0 [facility] Comment on above: Order Comment: 516.1 Performed By: #### L 506.1001, L501.0900, L100.0500, L500.2500 ####[facility] [address] [place], [address] Chloride [Moles/Vol] 105 mmol/L Normal 98-108 [facility] Comment on above: Order Comment: 516.1 Performed By: #### L 506.1001, L501.0900, L100.0500, L500.2500 ####[facility] [address] [place], [address] CO2 [Moles/Vol] 19.6 mmol/L Low 21.0-32.0 [facility] Comment on above: Order Comment: 516.1 Performed By: #### L 506.1001, L501.0900, L100.0500, L500.2500 ####[facility] [address] [place], [address] Creatinine [Mass/Vol] 3.79 mg/dL High 0.70-1.20 [facility] Comment on above: Order Comment: 516.1 Performed By: #### L 506.1001, L501.0900, L100.0500, L500.2500 ####[facility] [address] [place], [address] GAP 17 High 5-15 [facility] Comment on above: Order Comment: 516.1 Performed By: #### L 506.1001, L501.0900, L100.0500, L500.2500 ####[facility] [address] [place], [address] GFR/1.73 sq M.predicted among non-blacks MDRD (S/P/Bld) [Vol rate/Area] 12 mL/min/{1.73_m2} Low >60 [facility] Comment on above: Order Comment: 516.1 Result Comment: mL/m in/1.73m2 CKD-EPI Creatinine Equation (2020) Performed By: #### L 506.1001, L501.0900, L100.0500, L500.2500 ####[facility] [address] [place], [address] Glucose [Mass/Vol] 127 mg/dL High 70-99 [facility] Comment on above: Order Comment: 516.1 Performed By: #### L 506.1001, L501.0900, L100.0500, L500.2500 ####[facility] [address] [place], [address] Potassium [Moles/Vol] 3.7 mmol/L Normal 3.3-5.1 [facility] Comment on above: Order Comment: 516.1 Performed By: #### L 506.1001, L501.0900, L100.0500, L500.2500 ####[facility] [address] [place], [address] Sodium [Moles/Vol] 141 mmol/L Normal 133-145 [facility] Comment on above: Order Comment: 516.1 Performed By: #### L 506.1001, L501.0900, L100.0500, L500.2500 ####[facility] [address] [place], [address] Urea nitrogen [Mass/Vol] 50 mg/dL High 4-19 [facility] Comment on above: Order Comment: 516.1 Performed By: #### L 506.1001, L501.0900, L100.0500, L500.2500 ####[facility] [address] [place], [address] CBC-Complete Blood Cnt No Di ffon 12-02-2024 Erythrocyte distribution width (RBC) [Ratio] 11.9 % Normal 11.6-14.6 [facility] Comment on above: Order Comment: 516.1 Performed By: #### L 506.1001, L501.0900, L100.0500, L500.2500 ####[facility] [address] [place], [address] Hematocrit (Bld) [Volume fraction] 28.2 % Low 37-47 [facility] Comment on above: Order Comment: 516.1 Performed By: #### L 506.1001, L501.0900, L100.0500, L500.2500 ####[facility] [address] [place], [address] Hemoglobin (Bld) [Mass/Vol] 9.8 g/dL Low 12.0-15.0 [facility] Comment on above: Order Comment: 516.1 Performed By: #### L 506.1001, L501.0900, L100.0500, L500.2500 ####[facility] [address] [place], [address] MCH (RBC) [Entitic mass] 32.1 pg High 27.0-32.0 [facility] Comment on above: Order Comment: 516.1 Performed By: #### L 506.1001, L501.0900, L100.0500, L500.2500 ####[facility] [address] [place], [address] MCHC (RBC) [Mass/Vol] 34.8 g/dL Normal 32-36 [facility] Comment on above: Order Comment: 516.1 Performed By: #### L 506.1001, L501.0900, L100.0500, L500.2500 ####[facility] [address] [place], [address] MCV (RBC) [Entitic vol] 92.5 fL Normal 81-99 [facility] Comment on above: Order Comment: 516.1 Performed By: #### L 506.1001, L501.0900, L100.0500, L500.2500 ####[facility] [address] [place], [address] Platelet mean volume (Bld) [Entitic vol] 10.3 fL Normal 6.2-12.0 [facility] Comment on above: Order Comment: 516.1 Performed By: #### L 506.1001, L501.0900, L100.0500, L500.2500 ####[facility] [address] [place], [address] Platelets (Bld) [#/Vol] 341 10*3/uL Normal 150-450 [facility] Comment on above: Order Comment: 516.1 Performed By: #### L 506.1001, L501.0900, L100.0500, L500.2500 ####[facility] [address] [place], [address] RBC (Bld) [#/Vol] 3.05 10*6/uL Low 4.2-5.4 [facility] Comment on above: Order Comment: 516.1 Performed By: #### L 506.1001, L501.0900, L100.0500, L500.2500 ####[facility] [address] [place], [address] RDW SD 39.9 fl Normal 35.1-43.9 [facility] Comment on above: Order Comment: 516.1 Performed By: #### L 506.1001, L501.0900, L100.0500, L500.2500 ####[facility] [address] [place], [address] WBC (Bld) [#/Vol] 10.2 10*3/uL Normal 4.4-11.0 [facility] Comment on above: Order Comment: 516.1 Performed By: #### L 506.1001, L501.0900, L100.0500, L500.2500 ####[facility] [address] [place], [address] Carbon dioxide, total [Moles /volume] in Central venous bloodOrdered By: Johana Landrum on 12-02-2024 CO2 [Moles/Vol] 19.6 mmol/L Low 21.0-32.0 [facility] Chloride assayOrdered By: Jake Landrum on 12-02-2024 Chloride [Moles/Vol] 105 mmol/L 98-108 [facility] Creatinine Unsp time (U) [Ma ss/Vol]Ordered By: Johana Landrum on 12-02-2024 Creatinine (U) [Mass/Vol] 48.90 mg/dL 28.00-217.0 0 [facility] Erythrocyte distribution wid th (RBC) [Ratio]Ordered By: Johana Landrum on 12-02-2024 Erythrocyte distribution width (RBC) [Entitic vol] 39.9 fL 35.1-43.9 [facility] Erythrocyte distribution wid th ratioOrdered By: Johana Landrum on 12-02-2024 Erythrocyte distribution width (RBC) [Ratio] 11.9 % 11.6-14.6 [facility] Erythrocyte distribution wid th standard deviationOrdered By: Johana Landrum on 12-02-2024 Erythrocyte distribution width (RBC) [Ratio] 39.9 fl 35.1-43.9 [facility] GFR/1.73 sq M.predicted sharif g non-blacks MDRD (S/P/Bld) [Vol rate/Area]Ordered By: Johana Landrum on 12-02-2024 Estimated GFR (MDRD) Non-Af Amer 12 Low >60 [facility] Comment on above: mL/min/1.73m2 CKD-EP I Creatinine Equation (2020) Glomerular filtration rate ( GFR) estimation/1.73 sq m using serum, plasma, or whole bOrdered By: Johana Landrum on 12-02-2024 GFR/1.73 sq M.predicted among non-blacks MDRD (S/P/Bld) [Vol rate/Area] 12 mL/min/{1.73_m2} Low >60 [facility] Comment on above: mL/min/1.73m2 CKD-EP I Creatinine Equation (2020) Hematocrit Auto (Bld) [Volum e fraction]Ordered By: Johana Landrum on 12-02-2024 Hematocrit (Bld) [Volume fraction] 28.2 % Low 37-47 [facility] Hemoglobin measurementOrdere d By: Johana Landrum on 12-02-2024 Hemoglobin (Bld) [Mass/Vol] 9.8 g/dL Low 12.0-15.0 [facility] L506.1001on 12-02-2024 Vitamin D 25-OH 31.9 ng/mL Normal 30-100 [facility] Comment on above: Order Comment: 516.1 Result Comment: Lois min D StatusDeficiency: <20 ng/mL (50nmol/L)Insufficiency: 20-30 ng/mL (50-75 nmol/L)Sufficiency: 30-100 ng/mL (75-250 nmol/L)Toxicity: >100 ng/mL (>250 nmol/L) Performed By: #### L 506.1001, L501.0900, L100.0500, L500.2500 ####[facility] [address] [place], [place], [id number] MCV (mean corpuscular volume ) determinationOrdered By: Johana Landrum on 12-02-2024 MCV (RBC) [Entitic vol] 92.5 fL 81-99 [facility] Mean corpuscular hemoglobin (MCH) determinationOrdered By: Johana Landrum on 12-02-2024 MCH (RBC) [Entitic mass] 32.1 pg High 27.0-32.0 [facility] Mean corpuscular hemoglobin concentration (MCHC) determinationOrdered By: Johana Landrum on 12-02-2024 MCHC (RBC) [Mass/Vol] 34.8 g/dL 32-36 [facility] Mean platelet volume determi nationOrdered By: Johana Landrum on 12-02-2024 Platelet mean volume (Bld) [Entitic vol] 10.3 fL 6.2-12.0 [facility] Platelet countOrdered By: Jake Landrum on 12-02-2024 Platelets (Bld) [#/Vol] 341 10*3/uL 150-450 [facility] Potassium (Unsp spec) [Mass/ Vol]Ordered By: Johana Landrum on 12-02-2024 Potassium [Moles/Vol] 3.7 mmol/L 3.3-5.1 [facility] Potassium measurement (mass/ volume)Ordered By: Johana Landrum on 12-02-2024 Potassium (Unsp spec) [Mass/Vol] 3.7 mmol/L 3.3-5.1 [facility] Protein+Creatinine Ratio,Uri neon 12-02-2024 PROT:CRE RATIO 1973 mg/g CRE High 0-200 [facility] Comment on above: Performed By: #### L 506.1001, L501.0900, L100.0500, L500.2500 ####[facility] [address] [place], [address] Protein (U) [Mass/Vol] 96.5 mg/dL High 0.0-12.0 [facility] Comment on above: Performed By: #### L 506.1001, L501.0900, L100.0500, L500.2500 ####[facility] [address] [place], [address] UR CREAT 48.90 mg/dL Normal 28.00-217.0 0 [facility] Comment on above: Performed By: #### L 506.1001, L501.0900, L100.0500, L500.2500 ####[facility] [address] [place], [address] Protein/Creatinine (U) [Mass ratio]Ordered By: Johana Landrum on 12-02-2024 Urine Protein/Creatinine Ratio 1973 mg/g CRE High 0-200 [facility] RBC Auto (Bld) [#/Vol]Ordere d By: Johana Landrum on 12-02-2024 RBC (Bld) [#/Vol] 3.05 10*6/uL Low 4.2-5.4 [facility] Random urine creatinine yamil urement (mass/volume)Ordered By: Johana Landrum on 12-02-2024 Creatinine Unsp time (U) [Mass/Vol] 48.90 mg/dL 28.00-217.0 0 [facility] Serum creatinine measurement (mass/volume)Ordered By: Johana Landrum on 12-02-2024 Creatinine [Mass/Vol] 3.79 mg/dL High 0.70-1.20 [facility] Serum glucose measurement (m ass/volume)Ordered By: Johana Landrum on 12-02-2024 Glucose [Mass/Vol] 127 mg/dL High 70-99 [facility] Serum or plasma calcium yamil urement (mass/volume)Ordered By: Johana Landrum on 12-02-2024 Calcium [Mass/Vol] 9.4 mg/dL 7.6-11.0 [facility] Serum or plasma urea nitroge n measurement (mass/volume)Ordered By: Johana Landrum on 12-02-2024 Urea nitrogen [Mass/Vol] 50 mg/dL High 4-19 [facility] Sodium levelOrdered By: Doris Landrum on 12-02-2024 Sodium [Moles/Vol] 141 mmol/L 133-145 [facility] Urine protein measurement (m ass/volume)Ordered By: Johana Landrum on 12-02-2024 Protein (U) [Mass/Vol] 96.5 mg/dL High 0.0-12.0 [facility] Urine protein/creatinine mas s ratioOrdered By: Johana Landrum on 12-02-2024 Protein/Creatinine (U) [Mass ratio] 1973 mg/g CRE High 0-200 [facility] Vitamin D, 25-hydroxyOrdered By: Johana Landrum on 12-02-2024 Vitamin D 25-Hydroxy 31.9 ng/mL 30-100 [facility] Comment on above: Vitamin D StatusDefi ciency: <20 ng/mL (50nmol/L)Insufficiency: 20-30 ng/mL (50-75 nmol/L)Sufficiency: 30-100 ng/mL (75-250 nmol/L)Toxicity: >100 ng/mL (>250 nmol/L) White blood cell (WBC) count Ordered By: Johana Landrum on 12-02-2024 WBC (Bld) [#/Vol] 10.2 10*3/uL 4.4-11.0 [facility] Absolute lymphocyte countOrd ered By: Johana Landrum on 11-30-2024 Lymphocytes Auto (Unsp spec) [#/Vol] 2.30 10*3/uL 0.83-4.51 [facility] Absolute neutrophil countOrd ered By: Johana Landrum on 11-30-2024 Neutrophils (Bld) [#/Vol] 6.5 10*3/uL 2.0-7.7 [facility] Anion gap in Serum or Plasma Ordered By: Johana Landrum on 11-30-2024 Anion gap [Moles/Vol] 17 mmol/L High 5-15 [facility] Automated lymphocyte count a s percentage of total leukocytesOrdered By: Johana Landrum on 11-30-2024 Lymphocytes/100 WBC Auto (Unsp spec) 22.4 % 19-41 [facility] BUN/creatinine ratioOrdered By: Johana Landrum on 11-30-2024 Urea nitrogen/Creatinine [Mass ratio] 12.9 mg/mg 10-20 [facility] Basophil percentageOrdered B y: Johana Landrum on 11-30-2024 Basophils/100 WBC (Bld) 0.7 % 0-1 [facility] Bilirubin, totalOrdered By: Johana Landrum on 03-31-2025 Bilirubin [Mass/Vol] 0.18 mg/dL 0.00-1.30 [facility] CBC W/Diff, Automatedon 03-3 -2024 Absolute Lymph 2.30 X10 3/uL Normal 0.83-4.51 [facility] Comment on above: Order Comment: 516.1 Performed By: #### L 500.4050, L501.5200, L100.0100 ####[facility] [address] [place], [address] Absolute Neut 6.5 X10 3/uL Normal 2.0-7.7 [facility] Comment on above: Order Comment: 516.1 Performed By: #### L 500.4050, L501.5200, L100.0100 ####[facility] [address] [place], [address] Basophils/100 WBC (Bld) 0.7 % Normal 0-1 [facility] Comment on above: Order Comment: 516.1 Performed By: #### L 500.4050, L501.5200, L100.0100 ####[facility] [address] [place], [address] Eosinophils/100 WBC (Bld) 3.4 % Normal 0-5 [facility] Comment on above: Order Comment: 516.1 Performed By: #### L 500.4050, L501.5200, L100.0100 ####[facility] [address] [place], [address] Erythrocyte distribution width (RBC) [Ratio] 11.9 % Normal 11.6-14.6 [facility] Comment on above: Order Comment: 516.1 Performed By: #### L 500.4050, L501.5200, L100.0100 ####[facility] [address] [place], [address] Hematocrit (Bld) [Volume fraction] 28.3 % Low 37-47 [facility] Comment on above: Order Comment: 516.1 Performed By: #### L 500.4050, L501.5200, L100.0100 ####[facility] [address] [place], [address] Hemoglobin (Bld) [Mass/Vol] 9.5 g/dL Low 12.0-15.0 [facility] Comment on above: Order Comment: 516.1 Performed By: #### L 500.4050, L501.5200, L100.0100 ####[facility] [address] [place], [address] IG% 1.000 High 0.0-0.9 [facility] Comment on above: Order Comment: 516.1 Result Comment: IG% - Immature Granulocytes (promyelocytes, myelocytes andmetamyelocytes) > 1% indicates that a LEFT SHIFT is Present. Performed By: #### L 500.4050, L501.5200, L100.0100 ####[facility] [address] [place], [address] Lymphocytes/100 WBC (Bld) 22.4 % Normal 19-41 [facility] Comment on above: Order Comment: 516.1 Performed By: #### L 500.4050, L501.5200, L100.0100 ####[facility] [address] [place], [address] MCH (RBC) [Entitic mass] 31.1 pg Normal 27.0-32.0 [facility] Comment on above: Order Comment: 516.1 Performed By: #### L 500.4050, L501.5200, L100.0100 ####[facility] [address] [place], [address] MCHC (RBC) [Mass/Vol] 33.6 g/dL Normal 32-36 [facility] Comment on above: Order Comment: 516.1 Performed By: #### L 500.4050, L501.5200, L100.0100 ####[facility] [address] [place], [address] MCV (RBC) [Entitic vol] 92.8 fL Normal 81-99 [facility] Comment on above: Order Comment: 516.1 Performed By: #### L 500.4050, L501.5200, L100.0100 ####[facility] [address] [place], [address] Monocytes/100 WBC (Bld) 9.5 % Normal 0-10 [facility] Comment on above: Order Comment: 516.1 Performed By: #### L 500.4050, L501.5200, L100.0100 ####[facility] [address] [place], [address] Neutrophils/100 WBC (Bld) 63.0 % Normal 47-70 [facility] Comment on above: Order Comment: 516.1 Performed By: #### L 500.4050, L501.5200, L100.0100 ####[facility] [address] [place], [address] Nucleated RBC (Bld) [#/Vol] 0 10*3/uL Normal 0-5 [facility] Comment on above: Order Comment: 516.1 Performed By: #### L 500.4050, L501.5200, L100.0100 ####[facility] [address] [place], [address] Platelet mean volume (Bld) [Entitic vol] 10.1 fL Normal 6.2-12.0 [facility] Comment on above: Order Comment: 516.1 Performed By: #### L 500.4050, L501.5200, L100.0100 ####[facility] [address] [place], [address] Platelets (Bld) [#/Vol] 335 10*3/uL Normal 150-450 [facility] Comment on above: Order Comment: 516.1 Performed By: #### L 500.4050, L501.5200, L100.0100 ####[facility] [address] [place], [address] RBC (Bld) [#/Vol] 3.05 10*6/uL Low 4.2-5.4 [facility] Comment on above: Order Comment: 516.1 Performed By: #### L 500.4050, L501.5200, L100.0100 ####[facility] [address] [place], [address] RDW SD 40.1 fl Normal 35.1-43.9 [facility] Comment on above: Order Comment: 516.1 Performed By: #### L 500.4050, L501.5200, L100.0100 ####[facility] [address] [place], [address] WBC (Bld) [#/Vol] 10.3 10*3/uL Normal 4.4-11.0 [facility] Comment on above: Order Comment: 516.1 Performed By: #### L 500.4050, L501.5200, L100.0100 ####[facility] [address] [place], [address] Carbon dioxide, total [Moles /volume] in Central venous bloodOrdered By: Johana Landrum on 11-30-2024 CO2 [Moles/Vol] 18.2 mmol/L Low 21.0-32.0 [facility] Chloride assayOrdered By: Jake Landrum on 11-30-2024 Chloride [Moles/Vol] 105 mmol/L 98-108 [facility] Comprehensive Metabolic Prof ilon 11-30-2024 Albumin [Mass/Vol] 4.3 g/dL Normal 3.4-4.8 [facility] Comment on above: Order Comment: 516.1 Performed By: #### L 500.4050, L501.5200, L100.0100 ####[facility] [address] [place], [address] Albumin/Globulin [Mass ratio] 1.8 {ratio} Normal 0.9-2.4 [facility] Comment on above: Order Comment: 516.1 Performed By: #### L 500.4050, L501.5200, L100.0100 ####[facility] [address] [place], [address] ALK PHOS 73 U/L Normal 35-104 [facility] Comment on above: Order Comment: 516.1 Performed By: #### L 500.4050, L501.5200, L100.0100 ####[facility] [address] [place], [address] ALT [Catalytic activity/Vol] 12 U/L Normal <=34 [facility] Comment on above: Order Comment: 516.1 Performed By: #### L 500.4050, L501.5200, L100.0100 ####[facility] [address] [place], [address] AST [Catalytic activity/Vol] 17 U/L Normal <=31 [facility] Comment on above: Order Comment: 516.1 Performed By: #### L 500.4050, L501.5200, L100.0100 ####[facility] [address] [place], [address] Bilirubin [Mass/Vol] 0.18 mg/dL Normal 0.00-1.30 [facility] Comment on above: Order Comment: 516.1 Performed By: #### L 500.4050, L501.5200, L100.0100 ####[facility] [address] [place], [address] BUN/CRE 12.9 RATIO Normal 10-20 [facility] Comment on above: Order Comment: 516.1 Performed By: #### L 500.4050, L501.5200, L100.0100 ####[facility] [address] [place], [address] Calcium [Mass/Vol] 9.6 mg/dL Normal 7.6-11.0 [facility] Comment on above: Order Comment: 516.1 Performed By: #### L 500.4050, L501.5200, L100.0100 ####[facility] [address] [place], [address] Chloride [Moles/Vol] 105 mmol/L Normal 98-108 [facility] Comment on above: Order Comment: 516.1 Performed By: #### L 500.4050, L501.5200, L100.0100 ####[facility] [address] [place], [address] CO2 [Moles/Vol] 18.2 mmol/L Low 21.0-32.0 [facility] Comment on above: Order Comment: 516.1 Performed By: #### L 500.4050, L501.5200, L100.0100 ####[facility] [address] [place], [address] Creatinine [Mass/Vol] 3.82 mg/dL High 0.70-1.20 [facility] Comment on above: Order Comment: 516.1 Performed By: #### L 500.4050, L501.5200, L100.0100 ####[facility] [address] [place], [address] GAP 17 High 5-15 [facility] Comment on above: Order Comment: 516.1 Performed By: #### L 500.4050, L501.5200, L100.0100 ####[facility] [address] [place], [address] GFR/1.73 sq M.predicted among non-blacks MDRD (S/P/Bld) [Vol rate/Area] 12 mL/min/{1.73_m2} Low >60 [facility] Comment on above: Order Comment: 516.1 Result Comment: mL/m in/1.73m2 CKD-EPI Creatinine Equation (2020) Performed By: #### L 500.4050, L501.5200, L100.0100 ####[facility] [address] [place], [address] Globulin (S) [Mass/Vol] 2.4 g/dL Normal 2.2-4.2 [facility] Comment on above: Order Comment: 516.1 Performed By: #### L 500.4050, L501.5200, L100.0100 ####[facility] [address] [place], [address] Glucose [Mass/Vol] 93 mg/dL Normal 70-99 [facility] Comment on above: Order Comment: 516.1 Performed By: #### L 500.4050, L501.5200, L100.0100 ####[facility] [address] [place], [address] Potassium [Moles/Vol] 3.7 mmol/L Normal 3.3-5.1 [facility] Comment on above: Order Comment: 516.1 Performed By: #### L 500.4050, L501.5200, L100.0100 ####[facility] [address] [place], [address] Sodium [Moles/Vol] 140 mmol/L Normal 133-145 [facility] Comment on above: Order Comment: 516.1 Performed By: #### L 500.4050, L501.5200, L100.0100 ####[facility] [address] [place], [address] T PROT 6.7 g/dL Normal 5.9-8.4 [facility] Comment on above: Order Comment: 516.1 Performed By: #### L 500.4050, L501.5200, L100.0100 ####[facility] [address] [place], [address] Urea nitrogen [Mass/Vol] 49 mg/dL High 4-19 [facility] Comment on above: Order Comment: 516.1 Performed By: #### L 500.4050, L501.5200, L100.0100 ####[facility] [address] [place], [address] Eosinophil percentageOrdered By: Johana Landrum on 11-30-2024 Eosinophils/100 WBC (Bld) 3.4 % 0-5 [facility] Erythrocyte distribution wid th (RBC) [Ratio]Ordered By: Johana Landrum on 11-30-2024 Erythrocyte distribution width (RBC) [Entitic vol] 40.1 fL 35.1-43.9 [facility] Erythrocyte distribution wid th ratioOrdered By: Johana Landrum on 11-30-2024 Erythrocyte distribution width (RBC) [Ratio] 11.9 % 11.6-14.6 [facility] Erythrocyte distribution wid th standard deviationOrdered By: Johana Landrum on 11-30-2024 Erythrocyte distribution width (RBC) [Ratio] 40.1 fl 35.1-43.9 [facility] GFR/1.73 sq M.predicted sharif g non-blacks MDRD (S/P/Bld) [Vol rate/Area]Ordered By: Johana Landrum on 11-30-2024 Estimated GFR (MDRD) Non-Af Amer 12 Low >60 [facility] Comment on above: mL/min/1.73m2 CKD-EP I Creatinine Equation (2020) Glomerular filtration rate ( GFR) estimation/1.73 sq m using serum, plasma, or whole bOrdered By: Johana Landrum on 11-30-2024 GFR/1.73 sq M.predicted among non-blacks MDRD (S/P/Bld) [Vol rate/Area] 12 mL/min/{1.73_m2} Low >60 [facility] Comment on above: mL/min/1.73m2 CKD-EP I Creatinine Equation (2020) Hematocrit Auto (Bld) [Volum e fraction]Ordered By: Johana Landrum on 11-30-2024 Hematocrit (Bld) [Volume fraction] 28.3 % Low 37-47 [facility] Hemoglobin measurementOrdere d By: Johana Landrum on 11-30-2024 Hemoglobin (Bld) [Mass/Vol] 9.5 g/dL Low 12.0-15.0 [facility] Immature granulocytes/100 WB C Auto (Bld)Ordered By: Johana Landrum on 11-30-2024 Immature granulocytes/100 WBC (Bld) 1.000 % High 0.0-0.9 [facility] Comment on above: IG% - Immature Granu locytes (promyelocytes, myelocytes and metamyelocytes) > 1% indicates that a LEFT SHIFT is Present. Laboratory - Chemistry and C hemistry - challengeOrdered By: Johana Landrum on 11-30-2024 AST [Catalytic activity/Vol] 17 U/L <32 [facility] Lymphocytes Auto (Unsp spec) [#/Vol]Ordered By: Johana Landrum on 11-30-2024 Lymphocytes (Bld) [#/Vol] 2.30 10*3/uL 0.83-4.51 [facility] Lymphocytes/100 WBC Auto (Un sp spec)Ordered By: Johana Landrum on 11-30-2024 Lymphocytes/100 WBC (Bld) 22.4 % 19-41 [facility] MCV (mean corpuscular volume ) determinationOrdered By: Johanajosé manuel Landrum on 11-30-2024 MCV (RBC) [Entitic vol] 92.8 fL 81-99 [facility] Magnesiumon 11-30-2024 Magnesium [Mass/Vol] 2.1 mg/dL Normal 1.5-2.2 [facility] Comment on above: Order Comment: 516.1 Performed By: #### L 500.4050, L501.5200, L100.0100 ####[facility] [address] [place], [address] Magnesium (Unsp spec) [Mass/ Vol]Ordered By: Johana Landrum on 11-30-2024 Magnesium [Mass/Vol] 2.1 mg/dL 1.5-2.2 [facility] Magnesium measurement (mass/ volume)Ordered By: Johana Landrum on 11-30-2024 Magnesium (Unsp spec) [Mass/Vol] 2.1 mg/dL 1.5-2.2 [facility] Mean corpuscular hemoglobin (MCH) determinationOrdered By: Johana Landrum on 11-30-2024 MCH (RBC) [Entitic mass] 31.1 pg 27.0-32.0 [facility] Mean corpuscular hemoglobin concentration (MCHC) determinationOrdered By: Johana Landrum on 11-30-2024 MCHC (RBC) [Mass/Vol] 33.6 g/dL 32-36 [facility] Mean platelet volume determi nationOrdered By: Johana Landrum on 11-30-2024 Platelet mean volume (Bld) [Entitic vol] 10.1 fL 6.2-12.0 [facility] Monocyte percentageOrdered B y: Johana Landrum on 11-30-2024 Monocytes/100 WBC (Bld) 9.5 % 0-10 [facility] Neutrophil percentageOrdered By: Johana Landrum on 11-30-2024 Neutrophils/100 WBC (Bld) 63.0 % 47-70 [facility] Nucleated red blood cell per centageOrdered By: Johana Landrum on 11-30-2024 Nucleated RBC/100 WBC (Bld) [Ratio] 0 % 0-5 [facility] Platelet countOrdered By: Jake Landrum on 11-30-2024 Platelets (Bld) [#/Vol] 335 10*3/uL 150-450 [facility] Potassium (Unsp spec) [Mass/ Vol]Ordered By: Johana Landrum on 11-30-2024 Potassium [Moles/Vol] 3.7 mmol/L 3.3-5.1 [facility] Potassium measurement (mass/ volume)Ordered By: Johana Landrum on 11-30-2024 Potassium (Unsp spec) [Mass/Vol] 3.7 mmol/L 3.3-5.1 [facility] RBC Auto (Bld) [#/Vol]Ordere d By: Johana Landrum on 11-30-2024 RBC (Bld) [#/Vol] 3.05 10*6/uL Low 4.2-5.4 [facility] Serum creatinine measurement (mass/volume)Ordered By: Johana Landrum on 11-30-2024 Creatinine [Mass/Vol] 3.82 mg/dL High 0.70-1.20 [facility] Serum globulin measurementOr dered By: Johana Landrum on 11-30-2024 Globulin (S) [Mass/Vol] 2.4 g/dL 2.2-4.2 [facility] Serum glucose measurement (m ass/volume)Ordered By: Johana Landrum on 11-30-2024 Glucose [Mass/Vol] 93 mg/dL 70-99 [facility] Serum or plasma alanine mckeon otransferase (ALT) measurementOrdered By: Johana Landrum on 11-30-2024 ALT [Catalytic activity/Vol] 12 U/L <35 [facility] Serum or plasma albumin yamil urement (mass/volume)Ordered By: Johana Landrum on 11-30-2024 Albumin [Mass/Vol] 4.3 g/dL 3.4-4.8 [facility] Serum or plasma albumin/glob ulin mass ratioOrdered By: Johana Landrum on 11-30-2024 Albumin/Globulin [Mass ratio] 1.8 {ratio} 0.9-2.4 [facility] Serum or plasma alkaline anthony sphatase measurementOrdered By: Johana Landrum on 11-30-2024 ALP [Catalytic activity/Vol] 73 U/L 35-104 [facility] Serum or plasma calcium yamil urement (mass/volume)Ordered By: Johana Landrum on 11-30-2024 Calcium [Mass/Vol] 9.6 mg/dL 7.6-11.0 [facility] Serum or plasma urea nitroge n measurement (mass/volume)Ordered By: Johana Landrum on 11-30-2024 Urea nitrogen [Mass/Vol] 49 mg/dL High 4-19 [facility] Sodium levelOrdered By: Doris Landrum on 11-30-2024 Sodium [Moles/Vol] 140 mmol/L 133-145 [facility] Total proteinOrdered By: Daisy Landrum on 11-30-2024 Protein [Mass/Vol] 6.7 g/dL 5.9-8.4 [facility] White blood cell (WBC) count Ordered By: Johana Landrum on 11-30-2024 WBC (Bld) [#/Vol] 10.3 10*3/uL 4.4-11.0 [facility] Urine Cultureon 09-24-2024 URC Normal [facility] Comment on above: Performed By: #### L 400.0001, M100.2200 ####[facility] [address] [place], [address] Bilirubin Test strip Ql (U)O rdered By: Johana Landrum on 09-21-2024 Bilirubin Ql (U) Negative Negative [facility] Epithelial cells.squamous LM Ql (Urine sed)Ordered By: Johana Landrum on 09-21-2024 Epithelial cells.squamous LM.HPF (Urine sed) [#/Area] 0 /[HPF] 5-10 [facility] Glucose Ql (U)Ordered By: Jake Landrum on 09-21-2024 Glucose (U) [Mass/Vol] 50 mg/dL High Normal [facility] Ketones Test strip Ql (U)Ord ered By: Johana Landrum on 09-21-2024 Ketones Ql (U) Negative Negative [facility] Microscopic analysis of urin e for red blood cells (RBC)Ordered By: Johana Landrum on 09-21-2024 Urine RBC 0 SEEN /hpf 0-5 [facility] Mucus LM Ql (Urine sed)Order ed By: Johana Landrum on 09-21-2024 Mucus Ql (Urine sed) 0 SEEN /hpf [facility] Nitrite Test strip Ql (U)Ord ered By: Johana Landrum on 09-21-2024 Nitrite Ql (U) Negative Negative [facility] Protein Test strip Ql (U)Ord ered By: Johana Landrum on 09-21-2024 Protein Ql (U) 100 mg/dl High Negative [facility] Urinalysis, Completeon 09-21 EPI,SQUAMOUS 0-5 SEEN Normal 5-10 [facility] Comment on above: Order Comment: CLEAN CATCH Performed By: #### L 400.0001, M100.2200 ####[facility] [address] [place], [address] WBC 25-50 SEEN Normal 0-5 [facility] Comment on above: Order Comment: CLEAN CATCH Performed By: #### L 400.0001, M100.2200 ####[facility] [address] [place], [address] BACTERIA 0 SEEN Normal None Seen [facility] Comment on above: Order Comment: CLEAN CATCH Performed By: #### L 400.0001, M100.2200 ####[facility] [address] [place], [address] Mucus Ql (Urine sed) 0 SEEN Normal [facility] Comment on above: Order Comment: CLEAN CATCH Performed By: #### L 400.0001, M100.2200 ####[facility] [address] [place], [address] RBC 0 SEEN Normal 0-5 [facility] Comment on above: Order Comment: CLEAN CATCH Performed By: #### L 400.0001, M100.2200 ####[facility] [address] [place], [address] Urine blood detectionOrdered By: Johana Lanrdum on 09-21-2024 Urine Occult Blood 25 /ul High Negative [facility] Urine clarityOrdered By: Daisy Landrum on 09-21-2024 Clarity (U) Sl. Cloudy Clear [facility] Urine color determinationOrd ered By: Johana Landrum on 09-21-2024 Color (U) Yellow Yellow [facility] Urine cultureOrdered By: Daisy Landrum on 09-21-2024 Bacteria identified Cx Nom (U) ESBL Escherichia coli Abnormal [facility] Urine leukocyte esterase det ection by dipstickOrdered By: Johana Landrum on 09-21-2024 Leukocyte esterase Test strip Ql (U) 500 /ul High Negative [facility] Urine pHOrdered By: Johana Holguin udla on 09-21-2024 pH (U) 6.5 [pH] 5.0 - 8.0 [facility] Urine sediment bacteria coun t by microscopy (number/high power field)Ordered By: Johana Landrum on 09-21-2024 Bacteria LM.HPF (Urine sed) [#/Area] 0 /[HPF] None Seen [facility] Urine specific gravity measu rementOrdered By: Johana Landrum on 09-21-2024 Specific gravity (U) [Rel density] 1.010 1.002-1.030 [facility] Urobilinogen Ql (U)Ordered B y: Johana Landrum on 09-21-2024 Urine Urobilinogen Normal mg/dl Normal [facility] White blood cell countOrdere d By: Johana Landrum on 09-21-2024 Urine WBC 25-50 SEEN /hpf 0-5 [facility] High density lipoprotein (HD L) measurementOrdered By: Johana Landrum on 08-31-2024 Cholesterol in HDL [Mass/Vol] 46 mg/dL >40 [facility] Comment on above: The drugs N-Acetylcy steine and Metamizole may falsely depress this assay. Reference Range HDL <40 mg/dL Low HDL Cholesterol HDL >or= 60 mg/dL High HDL Cholesterol Lipid Profileon 08-31-2024 Cholesterol [Mass/Vol] 127 mg/dL Normal 200 [facility] Comment on above: Order Comment: 517-1 Result Comment: <200 mg/dL Desirable 200-240 mg/dL Borderline >240 mg/dL High Risk Performed By: #### L 130.7126 ####[facility] [address] [place], [address] Cholesterol in HDL [Mass/Vol] 46 mg/dL Normal [facility] Comment on above: Order Comment: - Result Comment: The drugs N-Acetylcysteine and Metamizole may falselydepress this assay. Reference Range HDL <40 mg/dL Low HDL Cholesterol HDL >or= 60 mg/dL High HDL Cholesterol Performed By: #### L 500.4100 ####[facility] [address] [place], [address] Cholesterol in LDL [Mass/Vol] 33 mg/dL Normal 0-130 [facility] Comment on above: Order Comment: - Performed By: #### L 500.4100 ####[facility] [address] [place], [address] Cholesterol in VLDL [Mass/Vol] 48 mg/dL High 5-40 [facility] Comment on above: Order Comment: - Performed By: #### L 500.4100 ####[facility] [address] [place], [address] Triglyceride [Mass/Vol] 241 mg/dL High [facility] Comment on above: Order Comment: Result Comment: The drugs N-Acetylcysteine and Metamizole may falselydepress this assay.Serum Triglycerides Reference Interval Normal <150 mg/dL Borderline high 150 - 199 mg/dL High 200 - 499 mg/dL Very High > or = 500 mg/dL Performed By: #### L 500.4100 ####[facility] [address] [place], [address] Low density lipoprotein (LDL ) cholesterol measurementOrdered By: Johana Landrum on 08-31-2024 Cholesterol in LDL [Mass/Vol] 33 mg/dL 0-130 [facility] Serum or plasma cholesterol measurement (mass/volume)Ordered By: Johana Landrum on 08-31-2024 Cholesterol [Mass/Vol] 127 mg/dL <200 [facility] Comment on above: <200 mg/dL Desirable 200-240 mg/dL Borderline >240 mg/dL High Risk Triglycerides measurementOrd ered By: Johana Landrum on 08-31-2024 Triglyceride [Mass/Vol] 241 mg/dL High <199 [facility] Comment on above: The drugs N-Acetylcy steine and Metamizole may falsely depress this assay.Serum Triglycerides Reference Interval Normal <150 mg/dL Borderline high 150 - 199 mg/dL High 200 - 499 mg/dL Very High > or = 500 mg/dL Very low density lipoprotein (VLDL) cholesterol measurementOrdered By: Johana Landrum on 08-31-2024 VLDL Cholesterol 48 mg/dL High 5-40 [facility] Automated blood erythrocyte countOrdered By: [facility] on 08-27-2024 RBC (Bld) [#/Vol] 3.24 10*6/uL Low 4.2-5.4 [facility] Comment on above: Order Comment: 517.1 Performed By: #### L 500.2500, L100.0500 ####[facility] [address] [place], [address] Automated blood hematocrit ( percentage)Ordered By: [facility] on 08-27-2024 Hematocrit (Bld) [Volume fraction] 29.9 % Low 37-47 [facility] Comment on above: Order Comment: 517.1 Performed By: #### L 500.2500, L100.0500 ####[facility] [address] [place], [address] Basic Metabolic Profile (BMP )on 08-27-2024 BUN/CRE 17.9 RATIO Normal 10-20 [facility] Comment on above: Order Comment: 517.1 Performed By: #### L 500.2500, L100.0500 ####[facility] [address] [place], [address] CA,Total 8.9 mg/dL Normal 8.5-10.1 [facility] Comment on above: Order Comment: 517.1 Performed By: #### L 500.2500, L100.0500 ####[facility] [address] [place], [address] EST GFR - AA 17 mL/min Low >60 [facility] Comment on above: Order Comment: 517.1 Result Comment: Afri can Micronesian GFR Calc Performed By: #### L 500.2500, L100.0500 ####[facility] [address] [place], [address] GAP 10 Normal 5-15 [facility] Comment on above: Order Comment: 517.1 Performed By: #### L 500.2500, L100.0500 ####[facility] [address] [place], [address] GFR/1.73 sq M.predicted among non-blacks MDRD (S/P/Bld) [Vol rate/Area] 14 mL/min/{1.73_m2} Low >60 [facility] Comment on above: Order Comment: 517.1 Result Comment: Non- GFR Calc Performed By: #### L 500.2500, L100.0500 ####[facility] [address] [place], [address] Blood urea nitrogen (BUN)/cr eatinine ratioOrdered By: [facility] on 08-27-2024 Urea nitrogen/Creatinine [Mass ratio] 17.9 mg/mg 10-20 [facility] CBC-Complete Blood Cnt No Di ffon 08-27-2024 RDW SD 46.5 fl High 35.1-43.9 [facility] Comment on above: Order Comment: 517.1 Performed By: #### L 500.2500, L100.0500 ####[facility] [address] [place], [address] Carbon dioxide measurementOr dered By: [facility] on 08-27-2024 CO2 [Moles/Vol] 22.0 mmol/L Normal 21.0-32.0 [facility] Comment on above: Order Comment: 517.1 Performed By: #### L 500.2500, L100.0500 ####[facility] [address] [place], [address] Chloride measurementOrdered By: [facility] on 08-27-2024 Chloride [Moles/Vol] 106 mmol/L Normal 98-107 [facility] Comment on above: Order Comment: 517.1 Performed By: #### L 500.2500, L100.0500 ####[facility] [address] [place], [place], [address] Erythrocyte distribution wid th (RBC) [Ratio]Ordered By: [facility] on 08-27-2024 Erythrocyte distribution width (RBC) [Entitic vol] 46.5 fL High 35.1-43.9 [facility] Erythrocyte distribution wid th ratioOrdered By: [facility] on 08-27-2024 Erythrocyte distribution width (RBC) [Ratio] 13.7 % Normal 11.6-14.6 [facility] Comment on above: Order Comment: 517.1 Performed By: #### L 500.2500, L100.0500 ####[facility] [address] [place], [place], [id number] Estimated glomerular filtrat ion rate (GFR) AmericanOrdered By: [facility] on 08-27-2024 Estimated GFR (MDRD) Amer 17 mL/min Low >60 [facility] Comment on above: GFR Calc Glomerular filtration rate ( GFR) estimationOrdered By: [facility] on 08-27-2024 Estimated GFR (MDRD) Non-Af Amer 14 mL/min Low >60 [facility] Comment on above: Non- GFR Calc Glucose measurementOrdered B y: [facility] on 08-27-2024 Glucose [Mass/Vol] 122 mg/dL High 74-106 [facility] Comment on above: Fasting Glucose resu lt from 100 to 125 mg/dL suggests IMPAIRED HOMEOSTASIS per A.D.A. criteria. Order Comment: 517.1 Result Comment: Fast ing Glucose result from 100 to 125 mg/dLsuggests IMPAIRED HOMEOSTASIS per A.D.A. criteria. Performed By: #### L 500.2500, L100.0500 ####[facility] [address] [place], [place], [id number] Hemoglobin measurementOrdere d By: [facility] on 08-27-2024 Hemoglobin (Bld) [Mass/Vol] 9.7 g/dL Low 12.0-15.0 [facility] Comment on above: Order Comment: 517.1 Performed By: #### L 500.2500, L100.0500 ####[facility] [address] [place], [place], [id number] MCV (mean corpuscular volume ) determinationOrdered By: [facility] on 08-27-2024 MCV (RBC) [Entitic vol] 92.3 fL Normal 81-99 [facility] Comment on above: Order Comment: 517.1 Performed By: #### L 500.2500, L100.0500 ####[facility] [address] [place], [place], [address] Mean corpuscular hemoglobin (MCH) determinationOrdered By: [facility] on 08-27-2024 MCH (RBC) [Entitic mass] 29.9 pg Normal 27.0-32.0 [facility] Comment on above: Order Comment: 517.1 Performed By: #### L 500.2500, L100.0500 ####[facility] [address] [place], [address] Mean corpuscular hemoglobin concentration (MCHC) determinationOrdered By: [facility] on 08-27-2024 MCHC (RBC) [Mass/Vol] 32.4 g/dL Normal 32-36 [facility] Comment on above: Order Comment: 517.1 Performed By: #### L 500.2500, L100.0500 ####[facility] [address] [place], [address] Mean platelet volume determi nationOrdered By: [facility] on 08-27-2024 Platelet mean volume (Bld) [Entitic vol] 10.9 fL Normal 6.2-12.0 [facility] Comment on above: Order Comment: 517.1 Performed By: #### L 500.2500, L100.0500 ####[facility] [address] [place], [address] Platelet countOrdered By: [facility] [place] on 08-27-2024 Platelets (Bld) [#/Vol] 292 10*3/uL Normal 150-450 [facility] Comment on above: Order Comment: 517.1 Performed By: #### L 500.2500, L100.0500 ####[facility] [address] [place], [address] Potassium measurementOrdered By: [facility] on 08-27-2024 Potassium [Moles/Vol] 3.5 mmol/L Normal 3.5-5.1 [facility] Comment on above: Order Comment: 517.1 Performed By: #### L 500.2500, L100.0500 ####[facility] [address] [place], [address] Protein+Creatinine Ratio,Uri neon 08-27-2024 PROT:CRE RATIO 3233 mg/g CRE High 0-200 [facility] Comment on above: Performed By: #### L 501.0900 ####[facility] [address] [place], [address] Protein (U) [Mass/Vol] 131.6 mg/dL High <11.9 [facility] Comment on above: Performed By: #### L 501.0900 ####[facility] [address] [place], [address] UR CREAT 40.70 mg/dL Normal NO RANGE EST. [facility] Comment on above: Performed By: #### L 501.0900 ####[facility] [address] [place], [address] Protein/Creatinine (U) [Mass ratio]Ordered By: [facility] on 08-27-2024 Urine Protein/Creatinine Ratio 3233 mg/g CRE High 0-200 [facility] Random urine protein measure mentOrdered By: [facility] on 08-27-2024 Protein (U) [Mass/Vol] 131.6 mg/dL High 0.0-11.8 [facility] Serum anion gap measurementO rdered By: [facility] on 08-27-2024 Anion gap [Moles/Vol] 10 mmol/L 5-15 [facility] Serum or plasma calcium yamil urement (mass/volume)Ordered By: [facility] on 08-27-2024 Calcium [Mass/Vol] 8.9 mg/dL 8.5-10.1 [facility] Serum or plasma creatinine m easurement (mass/volume)Ordered By: [facility] on 08-27-2024 Creatinine [Mass/Vol] 3.47 mg/dL High 0.55-1.02 [facility] Comment on above: The validity of the calculated GFR & GFRAA in patients over 70 years has not been determined. Clinical correlation is essential. Order Comment: 517.1 Result Comment: The validity of the calculated GFR GFRAA in patients over70 years has not been determined. Clinical correlation isessential. Performed By: #### L 500.2500, L100.0500 ####[facility] [address] [place], [address] Serum or plasma urea nitroge n measurement (mass/volume)Ordered By: [facility] on 08-27-2024 Urea nitrogen [Mass/Vol] 62 mg/dL High 7-18 [facility] Comment on above: Order Comment: 517.1 Performed By: #### L 500.2500, L100.0500 ####[facility] [address] [place], [address] Sodium levelOrdered By: [facility] on 08-27-2024 Sodium [Moles/Vol] 139 mmol/L Normal 136-145 [facility] Comment on above: Order Comment: 517.1 Performed By: #### L 500.2500, L100.0500 ####[facility] [address] [place], [address] Urine creatinine measurement (mass/volume)Ordered By: [facility] on 08-27-2024 Creatinine (U) [Mass/Vol] 40.70 mg/dL NO RANGE EST. [facility] White blood cell (WBC) count Ordered By: [facility] on 08-27-2024 WBC (Bld) [#/Vol] 11.3 10*3/uL High 4.4-11.0 [facility] Comment on above: Order Comment: 517.1 Performed By: #### L 500.2500, L100.0500 ####[facility] [address] [place], [address] Miscellaneous Lab Procedureo n 08-06-2024 [facility] LAB TEST Normal [facility] Comment on above: Order Comment: [id number]/ CYSTATIN C/ SERUM/ [id number]/ CYSTATIN C/ SERUM/ RT Result Comment: TEST RESULTS LIMITSCystatin C 3.85 High mg/L 0.78-1.15 ___ TESTING PERFORMED AT [facility]. ORIGINAL REPORT ON FILE IN LAB CONTAINS ADDITIONAL TEST SITE INFORMATION. Performed By: #### L 801.1541 ####[facility] [address] [place], [address] 12 Lead EKGon 07-24-2024 12 Lead EKG Normal [facility] Basic Metabolic Profile (BMP )on 07-24-2024 BUN/CRE 19.3 RATIO Normal 10-20 [facility] Comment on above: Order Comment: 1Y Performed By: #### L 500.2500, L501.5425, L100.0100 ####[facility] [address] [place], [address] CA,Total 9.3 mg/dL Normal 8.5-10.1 [facility] Comment on above: Order Comment: 1Y Performed By: #### L 500.2500, L501.5425, L100.0100 ####[facility] [address] [place], [address] Chloride [Moles/Vol] 110 mmol/L High 98-107 [facility] Comment on above: Order Comment: 1Y Performed By: #### L 500.2500, L501.5425, L100.0100 ####[facility] [address] [place], [address] CO2 [Moles/Vol] 21.0 mmol/L Normal 21.0-32.0 [facility] Comment on above: Order Comment: 1Y Performed By: #### L 500.2500, L501.5425, L100.0100 ####[facility] [address] [place], [address] Creatinine [Mass/Vol] 3.58 mg/dL High 0.55-1.02 [facility] Comment on above: Order Comment: 1Y Result Comment: The validity of the calculated GFR GFRAA in patients over70 years has not been determined. Clinical correlation isessential. Performed By: #### L 500.2500, L501.5425, L100.0100 ####[facility] [address] [place], [address] ECRCL 13.16 ml/min Normal [facility] Comment on above: Order Comment: 1Y Performed By: #### L 500.2500, L501.5425, L100.0100 ####[facility] [address] [place], [address] EST GFR - AA 16 mL/min Low >60 [facility] Comment on above: Order Comment: 1Y Result Comment: Afri can Micronesian GFR Calc Performed By: #### L 500.2500, L501.5425, L100.0100 ####[facility] [address] [place], [address] GAP 9 Normal 5-15 [facility] Comment on above: Order Comment: 1Y Performed By: #### L 500.2500, L501.5425, L100.0100 ####[facility] [address] [place], [address] GFR/1.73 sq M.predicted among non-blacks MDRD (S/P/Bld) [Vol rate/Area] 13 mL/min/{1.73_m2} Low >60 [facility] Comment on above: Order Comment: 1Y Result Comment: Non- GFR Calc Performed By: #### L 500.2500, L501.5425, L100.0100 ####[facility] [address] [place], [address] Glucose [Mass/Vol] 103 mg/dL Normal 74-106 [facility] Comment on above: Order Comment: 1Y Result Comment: Fast ing Glucose result from 100 to 125 mg/dLsuggests IMPAIRED HOMEOSTASIS per A.D.A. criteria. Performed By: #### L 500.2500, L501.5425, L100.0100 ####[facility] [address] [place], [address] Potassium [Moles/Vol] 3.6 mmol/L Normal 3.5-5.1 [facility] Comment on above: Order Comment: 1Y Performed By: #### L 500.2500, L501.5425, L100.0100 ####[facility] [address] [place], [address] Sodium [Moles/Vol] 140 mmol/L Normal 136-145 [facility] Comment on above: Order Comment: 1Y Performed By: #### L 500.2500, L501.5425, L100.0100 ####[facility] [address] [place], [address] Urea nitrogen [Mass/Vol] 69 mg/dL High 7-18 [facility] Comment on above: Order Comment: 1Y Performed By: #### L 500.2500, L501.5425, L100.0100 ####[facility] [address] [place], [address] CBC W/Diff, Automatedon 11-2 Absolute Lymph 2.05 X10 3/uL Normal 0.83-4.51 [facility] Comment on above: Performed By: #### L 500.2500, L501.5425, L100.0100 ####[facility] [address] [place], [address] Absolute Neut 9.9 X10 3/uL High 2.0-7.7 [facility] Comment on above: Performed By: #### L 500.2500, L501.5425, L100.0100 ####[facility] [address] [place], [address] Basophils/100 WBC (Bld) 0.4 % Normal 0-1 [facility] Comment on above: Performed By: #### L 500.2500, L501.5425, L100.0100 ####[facility] [address] [place], [address] Eosinophils/100 WBC (Bld) 1.4 % Normal 0-5 [facility] Comment on above: Performed By: #### L 500.2500, L501.5425, L100.0100 ####[facility] [address] [place], [address] Erythrocyte distribution width (RBC) [Ratio] 14.1 % Normal 11.6-14.6 [facility] Comment on above: Performed By: #### L 500.2500, L501.5425, L100.0100 ####[facility] [address] [place], [address] Hematocrit (Bld) [Volume fraction] 32.3 % Low 37-47 [facility] Comment on above: Performed By: #### L 500.2500, L501.5425, L100.0100 ####[facility] [address] [place], [address] Hemoglobin (Bld) [Mass/Vol] 9.7 g/dL Low 12.0-15.0 [facility] Comment on above: Performed By: #### L 500.2500, L501.5425, L100.0100 ####[facility] [address] [place], [address] IG% 0.800 Normal 0.0-0.9 [facility] Comment on above: Result Comment: IG% - Immature Granulocytes (promyelocytes, myelocytes andmetamyelocytes) > 1% indicates that a LEFT SHIFT is Present. Performed By: #### L 500.2500, L501.5425, L100.0100 ####[facility] [address] [place], [address] Lymphocytes/100 WBC (Bld) 15.4 % Low 19-41 [facility] Comment on above: Performed By: #### L 500.2500, L501.5425, L100.0100 ####[facility] [address] [place], [address] MCH (RBC) [Entitic mass] 29.3 pg Normal 27.0-32.0 [facility] Comment on above: Performed By: #### L 500.2500, L501.5425, L100.0100 ####[facility] [address] [place], [address] MCHC (RBC) [Mass/Vol] 30.0 g/dL Low 32-36 [facility] Comment on above: Performed By: #### L 500.2500, L501.5425, L100.0100 ####[facility] [address] [place], [address] MCV (RBC) [Entitic vol] 97.6 fL Normal 81-99 [facility] Comment on above: Performed By: #### L 500.2500, L501.5425, L100.0100 ####[facility] [address] [place], [address] Monocytes/100 WBC (Bld) 7.7 % Normal 0-10 [facility] Comment on above: Performed By: #### L 500.2500, L501.5425, L100.0100 ####[facility] [address] [place], [address] Neutrophils/100 WBC (Bld) 74.3 % High 47-70 [facility] Comment on above: Performed By: #### L 500.2500, L501.5425, L100.0100 ####[facility] [address] [place], [address] Nucleated RBC (Bld) [#/Vol] 0 10*3/uL Normal 0-5 [facility] Comment on above: Performed By: #### L 500.2500, L501.5425, L100.0100 ####[facility] [address] [place], [address] Platelet mean volume (Bld) [Entitic vol] 11.1 fL Normal 6.2-12.0 [facility] Comment on above: Performed By: #### L 500.2500, L501.5425, L100.0100 ####[facility] [address] [place], [address] Platelets (Bld) [#/Vol] 250 10*3/uL Normal 150-450 [facility] Comment on above: Performed By: #### L 500.2500, L501.5425, L100.0100 ####[facility] [address] [place], [address] RBC (Bld) [#/Vol] 3.31 10*6/uL Low 4.2-5.4 [facility] Comment on above: Performed By: #### L 500.2500, L501.5425, L100.0100 ####[facility] [address] [place], [address] RDW SD 50.5 fl High 35.1-43.9 [facility] Comment on above: Performed By: #### L 500.2500, L501.5425, L100.0100 ####[facility] [address] [place], [address] WBC (Bld) [#/Vol] 13.3 10*3/uL High 4.4-11.0 [facility] Comment on above: Performed By: #### L 500.2500, L501.5425, L100.0100 ####[facility] [address] [place], [address] Chest PA and Lateralon 07-24 Chest PA and Lateral Normal [facility] Emergency Department Summary on 07-24-2024 Emergency Department Summary Normal [facility] L501.4020on 07-24-2024 TROPONIN-I HS 17 pg/mL Normal 3.0-54.0 [facility] Comment on above: Result Comment: Plea se Note: New Test Units and Gender Specific Reference Ranges. For more information see Policy Stat Procedure [place] High Sensitivity Troponin (TNIH) and attachments. Performed By: #### L 501.4020 ####[facility] [address] [place], [address] L501.5425on 07-24-2024 TROPONIN-I HS 15 pg/mL Normal 3.0-54.0 [facility] Comment on above: Order Comment: 1Y Result Comment: Plea se Note: New Test Units and Gender Specific Reference Ranges. For more information see Policy Stat Procedure [place] High Sensitivity Troponin (TNIH) and attachments. Performed By: #### L 500.2500, L501.5425, L100.0100 ####[facility] [address] [place], [address] Basic Metabolic Profile (BMP )on 07-23-2024 BUN Normal 7-18 [facility] Comment on above: Result Comment: Canc elled via OM: Order cancelled - Patient discharged Performed By: #### L 500.2500, L100.0100 ####[facility] [address] [place], [address] BUN/CRE Normal 10-20 [facility] Comment on above: Result Comment: Canc elled via OM: Order cancelled - Patient discharged Performed By: #### L 500.2500, L100.0100 ####[facility] [address] [place], [address] CA,Total Normal 8.5-10.1 [facility] Comment on above: Result Comment: Canc elled via OM: Order cancelled - Patient discharged Performed By: #### L 500.2500, L100.0100 ####[facility] [address] [place], [address] CL Normal 98-107 [facility] Comment on above: Result Comment: Canc elled via OM: Order cancelled - Patient discharged Performed By: #### L 500.2500, L100.0100 ####[facility] [address] [place], [address] CO2 Normal 21.0-32.0 [facility] Comment on above: Result Comment: Canc elled via OM: Order cancelled - Patient discharged Performed By: #### L 500.2500, L100.0100 ####[facility] [address] [place], [address] CREAT,SERUM Normal 0.55-1.02 [facility] Comment on above: Result Comment: Canc elled via OM: Order cancelled - Patient discharged Performed By: #### L 500.2500, L100.0100 ####[facility] [address] [place], [address] EST GFR Normal >60 [facility] Comment on above: Result Comment: Canc elled via OM: Order cancelled - Patient discharged Performed By: #### L 500.2500, L100.0100 ####[facility] [address] [place], [address] EST GFR - AA Normal >60 [facility] Comment on above: Result Comment: Canc elled via OM: Order cancelled - Patient discharged Performed By: #### L 500.2500, L100.0100 ####[facility] [address] [place], [address] GAP Normal 5-15 [facility] Comment on above: Result Comment: Canc elled via OM: Order cancelled - Patient discharged Performed By: #### L 500.2500, L100.0100 ####[facility] [address] [place], [address] GLU Normal 74-106 [facility] Comment on above: Result Comment: Canc elled via OM: Order cancelled - Patient discharged Performed By: #### L 500.2500, L100.0100 ####[facility] [address] [place], [address] Potassium Normal 3.5-5.1 [facility] Comment on above: Result Comment: Canc elled via OM: Order cancelled - Patient discharged Performed By: #### L 500.2500, L100.0100 ####[facility] [address] [place], [address] Basic Metabolic Profile (BMP) Normal 136-145 [facility] Comment on above: Result Comment: Canc elled via OM: Order cancelled - Patient discharged Performed By: #### L 500.2500, L100.0100 ####[facility] [address] [place], [address] CBC W/Diff, Automatedon 11-2 Absolute Neut Normal 2.0-7.7 [facility] Comment on above: Result Comment: Canc elled via OM: Order cancelled - Patient discharged Performed By: #### L 500.2500, L100.0100 ####[facility] [address] [place], [address] HCT Normal 37-47 [facility] Comment on above: Result Comment: Canc elled via OM: Order cancelled - Patient discharged Performed By: #### L 500.2500, L100.0100 ####[facility] [address] [place], [address] HGB Normal 12.0-15.0 [facility] Comment on above: Result Comment: Canc elled via OM: Order cancelled - Patient discharged Performed By: #### L 500.2500, L100.0100 ####[facility] [address] [place], [address] MCH Normal 27.0-32.0 [facility] Comment on above: Result Comment: Canc elled via OM: Order cancelled - Patient discharged Performed By: #### L 500.2500, L100.0100 ####[facility] [address] [place], [address] MCHC Normal 32-36 [facility] Comment on above: Result Comment: Canc elled via OM: Order cancelled - Patient discharged Performed By: #### L 500.2500, L100.0100 ####[facility] [address] [place], [address] MCV Normal 81-99 [facility] Comment on above: Result Comment: Canc elled via OM: Order cancelled - Patient discharged Performed By: #### L 500.2500, L100.0100 ####[facility] [address] [place], [address] NEUT% Normal 47-70 [facility] Comment on above: Result Comment: Canc elled via OM: Order cancelled - Patient discharged Performed By: #### L 500.2500, L100.0100 ####[facility] [address] [place], [address] PLT Normal 150-450 [facility] Comment on above: Result Comment: Canc elled via OM: Order cancelled - Patient discharged Performed By: #### L 500.2500, L100.0100 ####[facility] [address] [place], [address] RBC Normal 4.2-5.4 [facility] Comment on above: Result Comment: Canc elled via OM: Order cancelled - Patient discharged Performed By: #### L 500.2500, L100.0100 ####[facility] [address] [place], [address] RDW CV Normal 11.6-14.6 [facility] Comment on above: Result Comment: Canc elled via OM: Order cancelled - Patient discharged Performed By: #### L 500.2500, L100.0100 ####[facility] [address] [place], [address] RDW SD Normal 35.1-43.9 [facility] Comment on above: Result Comment: Canc elled via OM: Order cancelled - Patient discharged Performed By: #### L 500.2500, L100.0100 ####[facility] [address] [place], [address] WBC Normal 4.4-11.0 [facility] Comment on above: Result Comment: Canc elled via OM: Order cancelled - Patient discharged Performed By: #### L 500.2500, L100.0100 ####[facility] [address] [place], [address] CBC W/Diff, Automatedon 11-2 0-2023 Absolute Lymph 1.91 X10 3/uL Normal 0.83-4.51 [facility] Comment on above: Performed By: #### L 100.0100 ####[facility] [address] [place], [address] Absolute Neut 6.9 X10 3/uL Normal 2.0-7.7 [facility] Comment on above: Performed By: #### L 100.0100 ####[facility] [address] [place], [address] Basophils/100 WBC (Bld) 0.7 % Normal 0-1 [facility] Comment on above: Performed By: #### L 100.0100 ####[facility] [address] [place], [address] Eosinophils/100 WBC (Bld) 3.9 % Normal 0-5 [facility] Comment on above: Performed By: #### L 100.0100 ####[facility] [address] [place], [address] Erythrocyte distribution width (RBC) [Ratio] 14.4 % Normal 11.6-14.6 [facility] Comment on above: Performed By: #### L 100.0100 ####[facility] [address] [place], [address] Hematocrit (Bld) [Volume fraction] 30.3 % Low 37-47 [facility] Comment on above: Performed By: #### L 100.0100 ####[facility] [address] [place], [address] Hemoglobin (Bld) [Mass/Vol] 9.3 g/dL Low 12.0-15.0 [facility] Comment on above: Performed By: #### L 100.0100 ####[facility] [address] [place], [address] IG% 0.700 Normal 0.0-0.9 [facility] Comment on above: Result Comment: IG% - Immature Granulocytes (promyelocytes, myelocytes andmetamyelocytes) > 1% indicates that a LEFT SHIFT is Present. Performed By: #### L 100.0100 ####[facility] [address] [place], [address] Lymphocytes/100 WBC (Bld) 18.8 % Low 19-41 [facility] Comment on above: Performed By: #### L 100.0100 ####[facility] [address] [place], [address] MCH (RBC) [Entitic mass] 29.4 pg Normal 27.0-32.0 [facility] Comment on above: Performed By: #### L 100.0100 ####[facility] [address] [place], [address] MCHC (RBC) [Mass/Vol] 30.7 g/dL Low 32-36 [facility] Comment on above: Performed By: #### L 100.0100 ####[facility] [address] [place], [address] MCV (RBC) [Entitic vol] 95.9 fL Normal 81-99 [facility] Comment on above: Performed By: #### L 100.0100 ####[facility] [address] [place], [address] Monocytes/100 WBC (Bld) 7.9 % Normal 0-10 [facility] Comment on above: Performed By: #### L 100.0100 ####[facility] [address] [place], [address] Neutrophils/100 WBC (Bld) 68.0 % Normal 47-70 [facility] Comment on above: Performed By: #### L 100.0100 ####[facility] [address] [place], [address] Nucleated RBC (Bld) [#/Vol] 0 10*3/uL Normal 0-5 [facility] Comment on above: Performed By: #### L 100.0100 ####[facility] [address] [place], [address] Platelet mean volume (Bld) [Entitic vol] 10.7 fL Normal 6.2-12.0 [facility] Comment on above: Performed By: #### L 100.0100 ####[facility] [address] [place], [address] Platelets (Bld) [#/Vol] 260 10*3/uL Normal 150-450 [facility] Comment on above: Performed By: #### L 100.0100 ####[facility] [address] [place], [address] RBC (Bld) [#/Vol] 3.16 10*6/uL Low 4.2-5.4 [facility] Comment on above: Performed By: #### L 100.0100 ####[facility] [address] [place], [address] RDW SD 50.7 fl High 35.1-43.9 [facility] Comment on above: Performed By: #### L 100.0100 ####[facility] [address] [place], [address] WBC (Bld) [#/Vol] 10.2 10*3/uL Normal 4.4-11.0 [facility] Comment on above: Performed By: #### L 100.0100 ####[facility] [address] [place], [address] Cerebral Spinal Fluid Cultur mojgan 07-22-2024 CSFC No growth in 72 hours. Normal [facility] Comment on above: Performed By: #### M 100.2300, M100.2000, L350.1000, L501.1600, L200.0100, L501.0400 ####[facility] [address] [place], [address] Renal Profileon 07-22-2024 Albumin [Mass/Vol] 2.9 g/dL Low 3.2-5.0 [facility] Comment on above: Performed By: #### L 500.3600 ####[facility] [address] [place], [address] BUN/CRE 22.4 RATIO High 10-20 [facility] Comment on above: Performed By: #### L 500.3600 ####[facility] [address] [place], [address] CA,Total 8.6 mg/dL Normal 8.5-10.1 [facility] Comment on above: Performed By: #### L 500.3600 ####[facility] [address] [place], [address] Chloride [Moles/Vol] 114 mmol/L High 98-107 [facility] Comment on above: Performed By: #### L 500.3600 ####[facility] [address] [place], [address] CO2 [Moles/Vol] 19.0 mmol/L Low 21.0-32.0 [facility] Comment on above: Performed By: #### L 500.3600 ####[facility] [address] [place], [address] Creatinine [Mass/Vol] 3.84 mg/dL High 0.55-1.02 [facility] Comment on above: Result Comment: The validity of the calculated GFR GFRAA in patients over70 years has not been determined. Clinical correlation isessential. Performed By: #### L 500.3600 ####[facility] [address] [place], [address] ECRCL 12.18 ml/min Normal [facility] Comment on above: Performed By: #### L 500.3600 ####[facility] [address] [place], [address] EST GFR - AA 15 mL/min Low >60 [facility] Comment on above: Result Comment: Afri can Micronesian GFR Calc Performed By: #### L 500.3600 ####[facility] [address] [place], [address] GFR/1.73 sq M.predicted among non-blacks MDRD (S/P/Bld) [Vol rate/Area] 12 mL/min/{1.73_m2} Low >60 [facility] Comment on above: Result Comment: Non- GFR Calc Performed By: #### L 500.3600 ####[facility] [address] [place], [address] Glucose [Mass/Vol] 100 mg/dL Normal 74-106 [facility] Comment on above: Result Comment: Fast ing Glucose result from 100 to 125 mg/dLsuggests IMPAIRED HOMEOSTASIS per A.D.A. criteria. Performed By: #### L 500.3600 ####[facility] [address] [place], [address] Phosphate [Mass/Vol] 6.2 mg/dL High 2.5-4.9 [facility] Comment on above: Performed By: #### L 500.3600 ####[facility] [address] [place], [address] Potassium [Moles/Vol] 3.9 mmol/L Normal 3.5-5.1 [facility] Comment on above: Performed By: #### L 500.3600 ####[facility] [address] [place], [address] Sodium [Moles/Vol] 142 mmol/L Normal 136-145 [facility] Comment on above: Performed By: #### L 500.3600 ####[facility] [address] [place], [address] Urea nitrogen [Mass/Vol] 86 mg/dL High 7-18 [facility] Comment on above: Performed By: #### L 500.3600 ####[facility] [address] [place], [address] Spinal Fluid Cell Count+Diff on 07-22-2024 PATH REV May follow Normal [facility] Comment on above: Order Comment: Speci men Source? spinal fluid Result Comment: NO E VIDENCE OF MALIGNANCY.KATHLEEN KRAFT MD 07/22/2024 AMENDED REPORT 07/22/24829 PATH REV previously reported as: May follow Performed By: #### M 100.2300, M100.2000, L350.1000, L501.1600, L200.0100, L501.0400 ####[facility] [address] [place], [address] Consultation - Nephrologyon 07-21-2024 Consultation - Nephrology Normal [facility] Renal Profileon 07-21-2024 Albumin [Mass/Vol] 3.1 g/dL Low 3.2-5.0 [facility] Comment on above: Performed By: #### L 500.3600 ####[facility] [address] [place], [address] BUN/CRE 21.4 RATIO High 10-20 [facility] Comment on above: Performed By: #### L 500.3600 ####[facility] [address] [place], [address] CA,Total 8.7 mg/dL Normal 8.5-10.1 [facility] Comment on above: Performed By: #### L 500.3600 ####[facility] [address] [place], [address] Chloride [Moles/Vol] 110 mmol/L High 98-107 [facility] Comment on above: Performed By: #### L 500.3600 ####[facility] [address] [place], [address] CO2 [Moles/Vol] 17.0 mmol/L Low 21.0-32.0 [facility] Comment on above: Performed By: #### L 500.3600 ####[facility] [address] [place], [address] Creatinine [Mass/Vol] 4.21 mg/dL High 0.55-1.02 [facility] Comment on above: Result Comment: The validity of the calculated GFR GFRAA in patients over70 years has not been determined. Clinical correlation isessential. Performed By: #### L 500.3600 ####[facility] [address] [place], [address] ECRCL 11.11 ml/min Normal [facility] Comment on above: Performed By: #### L 500.3600 ####[facility] [address] [place], [address] EST GFR - AA 13 mL/min Low >60 [facility] Comment on above: Result Comment: Afri can Micronesian GFR Calc Performed By: #### L 500.3600 ####[facility] [address] [place], [address] GFR/1.73 sq M.predicted among non-blacks MDRD (S/P/Bld) [Vol rate/Area] 11 mL/min/{1.73_m2} Low >60 [facility] Comment on above: Result Comment: Non- GFR Calc Performed By: #### L 500.3600 ####[facility] [address] [place], [address] Glucose [Mass/Vol] 191 mg/dL High 74-106 [facility] Comment on above: Result Comment: Fast ing Glucose result greater than or equal to 126 mg/dLsuggests DIABETES MELLITUS per A.D.A. criteria. Performed By: #### L 500.3600 ####[facility] [address] [place], [address] Phosphate [Mass/Vol] 5.7 mg/dL High 2.5-4.9 [facility] Comment on above: Performed By: #### L 500.3600 ####[facility] [address] [place], [address] Potassium [Moles/Vol] 3.8 mmol/L Normal 3.5-5.1 [facility] Comment on above: Performed By: #### L 500.3600 ####[facility] [address] [place], [address] Sodium [Moles/Vol] 138 mmol/L Normal 136-145 [facility] Comment on above: Performed By: #### L 500.3600 ####[facility] [address] [place], [address] Urea nitrogen [Mass/Vol] 90 mg/dL High 7-18 [facility] Comment on above: Performed By: #### L 500.3600 ####[facility] [address] [place], [address] Comprehensive Metabolic Prof [facility] 07-20-2024 Albumin [Mass/Vol] 2.9 g/dL Low 3.2-5.0 [facility] Comment on above: Performed By: #### L 500.4050 ####[facility] [address] [place], [address] Albumin/Globulin [Mass ratio] 1.0 {ratio} Normal 0.9-2.4 [facility] Comment on above: Performed By: #### L 500.4050 ####[facility] [address] [place], [address] ALK P 83 U/L Normal 45-117 [facility] Comment on above: Performed By: #### L 500.4050 ####[facility] [address] [place], [address] ALT [Catalytic activity/Vol] 15 U/L Normal 13-56 [facility] Comment on above: Performed By: #### L 500.4050 ####[facility] [address] [place], [address] AST [Catalytic activity/Vol] 7 U/L Low 15-37 [facility] Comment on above: Performed By: #### L 500.4050 ####[facility] [address] [place], [address] Bilirubin [Mass/Vol] 0.30 mg/dL Normal 0.20-1.00 [facility] Comment on above: Result Comment: For patients on eltrombopag therapy, use of Dimension [place] TBIL is not recommended. Performed By: #### L 500.4050 ####[facility] [address] [place], [address] BUN/CRE 19.2 RATIO Normal 10-20 [facility] Comment on above: Performed By: #### L 500.4050 ####[facility] [address] [place], [address] CA,Total 8.9 mg/dL Normal 8.5-10.1 [facility] Comment on above: Performed By: #### L 500.4050 ####[facility] [address] [place], [address] Chloride [Moles/Vol] 110 mmol/L High 98-107 [facility] Comment on above: Performed By: #### L 500.4050 ####[facility] [address] [place], [address] CO2 [Moles/Vol] 20.0 mmol/L Low 21.0-32.0 [facility] Comment on above: Performed By: #### L 500.4050 ####[facility] [address] [place], [address] Creatinine [Mass/Vol] 4.47 mg/dL High 0.55-1.02 [facility] Comment on above: Result Comment: The validity of the calculated GFR GFRAA in patients over70 years has not been determined. Clinical correlation isessential. Performed By: #### L 500.4050 ####[facility] [address] [place], [address] ECRCL 10.32 ml/min Normal [facility] Comment on above: Performed By: #### L 500.4050 ####[facility] [address] [place], [address] EST GFR - AA 13 mL/min Low >60 [facility] Comment on above: Result Comment: Afri can Micronesian GFR Calc Performed By: #### L 500.4050 ####[facility] [address] [place], [address] GAP 8 Normal 5-15 [facility] Comment on above: Performed By: #### L 500.4050 ####[facility] [address] [place], [address] GFR/1.73 sq M.predicted among non-blacks MDRD (S/P/Bld) [Vol rate/Area] 10 mL/min/{1.73_m2} Low >60 [facility] Comment on above: Result Comment: Non- GFR Calc Performed By: #### L 500.4050 ####[facility] [address] [place], [address] Globulin (S) [Mass/Vol] 3.0 g/dL Normal 2.2-4.2 [facility] Comment on above: Performed By: #### L 500.4050 ####[facility] [address] [place], [address] Glucose [Mass/Vol] 110 mg/dL High 74-106 [facility] Comment on above: Result Comment: Fast ing Glucose result from 100 to 125 mg/dLsuggests IMPAIRED HOMEOSTASIS per A.D.A. criteria. Performed By: #### L 500.4050 ####[facility] [address] [place], [address] Potassium [Moles/Vol] 4.0 mmol/L Normal 3.5-5.1 [facility] Comment on above: Performed By: #### L 500.4050 ####[facility] [address] [place], [address] Sodium [Moles/Vol] 139 mmol/L Normal 136-145 [facility] Comment on above: Performed By: #### L 500.4050 ####[facility] [address] [place], [address] T PROT 5.9 g/dL Low 6.4-8.2 [facility] Comment on above: Performed By: #### L 500.4050 ####[facility] [address] [place], [address] Urea nitrogen [Mass/Vol] 86 mg/dL High 7-18 [facility] Comment on above: Performed By: #### L 500.4050 ####[facility] [address] [place], [address] Cytology, Body Fluid / CSFon 07-20-2024 CYTOLOGY,BF/CSF SEE PATHOLOGY REPORT Normal [facility] Comment on above: Result Comment: Spec imen submitted to Anatomical Pathology Department fortesting. Performed By: #### M 100.2300, M100.2000, L350.1000, L501.1600, L200.0100, L501.0400 ####[facility] [address] [place], [address] Dx Lumbar Puncture w/IMG Kit maurizio 07-20-2024 Dx Lumbar Puncture w/IMG Guide Normal [facility] Glucose Spinal Fluidon 07-20 GLU SPINAL FLD 65 mg/dL Normal 40-75 [facility] Comment on above: Performed By: #### M 100.2300, M100.2000, L350.1000, L501.1600, L200.0100, L501.0400 ####[facility] [address] [place], [address] Gram Stainon 07-20-2024 GS Gram Stain No organisms seen 1+ Red Blood Cells 1+ White Blood Cells Normal [facility] Comment on above: Performed By: #### M 100.2300, M100.2000, L350.1000, L501.1600, L200.0100, L501.0400 ####[facility] [address] [place], [address] Protein Spinal Fluidon 07-20 PROTEIN CSF 42.0 mg/dL Normal 15.0-45.0 [facility] Comment on above: Performed By: #### M 100.2300, M100.2000, L350.1000, L501.1600, L200.0100, L501.0400 ####[facility] [address] [place], [address] Special Stain Group IIon Special Stain Group II Normal [facility] Comment on above: Performed By: #### P SSII ####[facility] [address] [place], [address] CBC W/Diff, Automatedon 07-03 Absolute Lymph 2.78 X10 3/uL Normal 0.83-4.51 [facility] Comment on above: Performed By: #### L 500.4050, L100.0100 ####[facility] [address] [place], [address] Absolute Neut 8.7 X10 3/uL High 2.0-7.7 [facility] Comment on above: Performed By: #### L 500.4050, L100.0100 ####[facility] [address] [place], [address] Basophils/100 WBC (Bld) 0.8 % Normal 0-1 [facility] Comment on above: Performed By: #### L 500.4050, L100.0100 ####[facility] [address] [place], [address] Eosinophils/100 WBC (Bld) 2.8 % Normal 0-5 [facility] Comment on above: Performed By: #### L 500.4050, L100.0100 ####[facility] [address] [place], [address] Erythrocyte distribution width (RBC) [Ratio] 14.4 % Normal 11.6-14.6 [facility] Comment on above: Performed By: #### L 500.4050, L100.0100 ####[facility] [address] [place], [address] Hematocrit (Bld) [Volume fraction] 31.9 % Low 37-47 [facility] Comment on above: Performed By: #### L 500.4050, L100.0100 ####[facility] [address] [place], [address] Hemoglobin (Bld) [Mass/Vol] 10.1 g/dL Low 12.0-15.0 [facility] Comment on above: Performed By: #### L 500.4050, L100.0100 ####[facility] [address] [place], [address] IG% 0.800 Normal 0.0-0.9 [facility] Comment on above: Result Comment: IG% - Immature Granulocytes (promyelocytes, myelocytes andmetamyelocytes) > 1% indicates that a LEFT SHIFT is Present. Performed By: #### L 500.4050, L100.0100 ####[facility] [address] [place], [address] Lymphocytes/100 WBC (Bld) 21.3 % Normal 19-41 [facility] Comment on above: Performed By: #### L 500.4050, L100.0100 ####[facility] [address] [place], [address] MCH (RBC) [Entitic mass] 30.1 pg Normal 27.0-32.0 [facility] Comment on above: Performed By: #### L 500.4050, L100.0100 ####[facility] [address] [place], [address] MCHC (RBC) [Mass/Vol] 31.7 g/dL Low 32-36 [facility] Comment on above: Performed By: #### L 500.4050, L100.0100 ####[facility] [address] [place], [address] MCV (RBC) [Entitic vol] 94.9 fL Normal 81-99 [facility] Comment on above: Performed By: #### L 500.4050, L100.0100 ####[facility] [address] [place], [address] Monocytes/100 WBC (Bld) 8.1 % Normal 0-10 [facility] Comment on above: Performed By: #### L 500.4050, L100.0100 ####[facility] [address] [place], [address] Neutrophils/100 WBC (Bld) 66.2 % Normal 47-70 [facility] Comment on above: Performed By: #### L 500.4050, L100.0100 ####[facility] [address] [place], [address] Nucleated RBC (Bld) [#/Vol] 0 10*3/uL Normal 0-5 [facility] Comment on above: Performed By: #### L 500.4050, L100.0100 ####[facility] [address] [place], [address] Platelet mean volume (Bld) [Entitic vol] 10.2 fL Normal 6.2-12.0 [facility] Comment on above: Performed By: #### L 500.4050, L100.0100 ####[facility] [address] [place], [address] Platelets (Bld) [#/Vol] 344 10*3/uL Normal 150-450 [facility] Comment on above: Performed By: #### L 500.4050, L100.0100 ####[facility] [address] [place], [address] RBC (Bld) [#/Vol] 3.36 10*6/uL Low 4.2-5.4 [facility] Comment on above: Performed By: #### L 500.4050, L100.0100 ####[facility] [address] [place], [address] RDW SD 50.1 fl High 35.1-43.9 [facility] Comment on above: Performed By: #### L 500.4050, L100.0100 ####[facility] [address] [place], [address] WBC (Bld) [#/Vol] 13.1 10*3/uL High 4.4-11.0 [facility] Comment on above: Performed By: #### L 500.4050, L100.0100 ####[facility] [address] [place], [address] Comprehensive Metabolic Prof ilon 07-19-2024 Albumin [Mass/Vol] 3.0 g/dL Low 3.2-5.0 [facility] Comment on above: Performed By: #### L 500.4050, L100.0100 ####[facility] [address] [place], [address] Albumin/Globulin [Mass ratio] 1.0 {ratio} Normal 0.9-2.4 [facility] Comment on above: Performed By: #### L 500.4050, L100.0100 ####[facility] [address] [place], [address] ALK P 87 U/L Normal 45-117 [facility] Comment on above: Performed By: #### L 500.4050, L100.0100 ####[facility] [address] [place], [address] ALT [Catalytic activity/Vol] 18 U/L Normal 13-56 [facility] Comment on above: Performed By: #### L 500.4050, L100.0100 ####[facility] [address] [place], [address] AST [Catalytic activity/Vol] 9 U/L Low 15-37 [facility] Comment on above: Performed By: #### L 500.4050, L100.0100 ####[facility] [address] [place], [address] Bilirubin [Mass/Vol] 0.30 mg/dL Normal 0.20-1.00 [facility] Comment on above: Result Comment: For patients on eltrombopag therapy, use of Dimension [place] TBIL is not recommended. Performed By: #### L 500.4050, L100.0100 ####[facility] [address] [place], [address] BUN/CRE 17.1 RATIO Normal 10-20 [facility] Comment on above: Performed By: #### L 500.4050, L100.0100 ####[facility] [address] [place], [address] CA,Total 9.1 mg/dL Normal 8.5-10.1 [facility] Comment on above: Performed By: #### L 500.4050, L100.0100 ####[facility] [address] [place], [address] Chloride [Moles/Vol] 110 mmol/L High 98-107 [facility] Comment on above: Performed By: #### L 500.4050, L100.0100 ####[facility] [address] [place], [address] CO2 [Moles/Vol] 21.0 mmol/L Normal 21.0-32.0 [facility] Comment on above: Performed By: #### L 500.4050, L100.0100 ####[facility] [address] [place], [address] Creatinine [Mass/Vol] 4.32 mg/dL High 0.55-1.02 [facility] Comment on above: Result Comment: The validity of the calculated GFR GFRAA in patients over70 years has not been determined. Clinical correlation isessential. Performed By: #### L 500.4050, L100.0100 ####[facility] [address] [place], [address] ECRCL 10.68 ml/min Normal [facility] Comment on above: Performed By: #### L 500.4050, L100.0100 ####[facility] [address] [place], [address] EST GFR - AA 13 mL/min Low >60 [facility] Comment on above: Result Comment: Afri can Micronesian GFR Calc Performed By: #### L 500.4050, L100.0100 ####[facility] [address] [place], [address] GAP 8 Normal 5-15 [facility] Comment on above: Performed By: #### L 500.4050, L100.0100 ####[facility] [address] [place], [address] GFR/1.73 sq M.predicted among non-blacks MDRD (S/P/Bld) [Vol rate/Area] 11 mL/min/{1.73_m2} Low >60 [facility] Comment on above: Result Comment: Non- GFR Calc Performed By: #### L 500.4050, L100.0100 ####[facility] [address] [place], [address] Globulin (S) [Mass/Vol] 2.9 g/dL Normal 2.2-4.2 [facility] Comment on above: Performed By: #### L 500.4050, L100.0100 ####[facility] [address] [place], [address] Glucose [Mass/Vol] 114 mg/dL High 74-106 [facility] Comment on above: Result Comment: Fast ing Glucose result from 100 to 125 mg/dLsuggests IMPAIRED HOMEOSTASIS per A.D.A. criteria. Performed By: #### L 500.4050, L100.0100 ####[facility] [address] [place], [address] Potassium [Moles/Vol] 3.8 mmol/L Normal 3.5-5.1 [facility] Comment on above: Performed By: #### L 500.4050, L100.0100 ####[facility] [address] [place], [address] Sodium [Moles/Vol] 139 mmol/L Normal 136-145 [facility] Comment on above: Performed By: #### L 500.4050, L100.0100 ####[facility] [address] [place], [address] T PROT 5.9 g/dL Low 6.4-8.2 [facility] Comment on above: Performed By: #### L 500.4050, L100.0100 ####[facility] [address] [place], [address] Urea nitrogen [Mass/Vol] 74 mg/dL High 7-18 [facility] Comment on above: Performed By: #### L 500.4050, L100.0100 ####[facility] [address] [place], [address] CBC W/Diff, Automatedon 11- Absolute Lymph 1.79 X10 3/uL Normal 0.83-4.51 [facility] Comment on above: Performed By: #### L 500.4100, L501.9985, L500.4050, L100.0100 ####[facility] [address] [place], [address] Absolute Neut 10.7 X10 3/uL High 2.0-7.7 [facility] Comment on above: Performed By: #### L 500.4100, L501.9985, L500.4050, L100.0100 ####[facility] [address] [place], [address] Basophils/100 WBC (Bld) 0.6 % Normal 0-1 [facility] Comment on above: Performed By: #### L 500.4100, L501.9985, L500.4050, L100.0100 ####[facility] [address] [place], [address] Eosinophils/100 WBC (Bld) 0.4 % Normal 0-5 [facility] Comment on above: Performed By: #### L 500.4100, L501.9985, L500.4050, L100.0100 ####[facility] [address] [place], [address] Erythrocyte distribution width (RBC) [Ratio] 14.4 % Normal 11.6-14.6 [facility] Comment on above: Performed By: #### L 500.4100, L501.9985, L500.4050, L100.0100 ####[facility] [address] [place], [address] Hematocrit (Bld) [Volume fraction] 37.9 % Normal 37-47 [facility] Comment on above: Performed By: #### L 500.4100, L501.9985, L500.4050, L100.0100 ####[facility] [address] [place], [address] Hemoglobin (Bld) [Mass/Vol] 11.9 g/dL Low 12.0-15.0 [facility] Comment on above: Performed By: #### L 500.4100, L501.9985, L500.4050, L100.0100 ####[facility] [address] [place], [address] IG% 0.700 Normal 0.0-0.9 [facility] Comment on above: Result Comment: IG% - Immature Granulocytes (promyelocytes, myelocytes andmetamyelocytes) > 1% indicates that a LEFT SHIFT is Present. Performed By: #### L 500.4100, L501.9985, L500.4050, L100.0100 ####[facility] [address] [place], [address] Lymphocytes/100 WBC (Bld) 12.9 % Low 19-41 [facility] Comment on above: Performed By: #### L 500.4100, L501.9985, L500.4050, L100.0100 ####[facility] [address] [place], [address] MCH (RBC) [Entitic mass] 29.8 pg Normal 27.0-32.0 [facility] Comment on above: Performed By: #### L 500.4100, L501.9985, L500.4050, L100.0100 ####[facility] [address] [place], [address] MCHC (RBC) [Mass/Vol] 31.4 g/dL Low 32-36 [facility] Comment on above: Performed By: #### L 500.4100, L501.9985, L500.4050, L100.0100 ####[facility] [address] [place], [address] MCV (RBC) [Entitic vol] 94.8 fL Normal 81-99 [facility] Comment on above: Performed By: #### L 500.4100, L501.9985, L500.4050, L100.0100 ####[facility] [address] [place], [address] Monocytes/100 WBC (Bld) 8.4 % Normal 0-10 [facility] Comment on above: Performed By: #### L 500.4100, L501.9985, L500.4050, L100.0100 ####[facility] [address] [place], [address] Neutrophils/100 WBC (Bld) 77.0 % High 47-70 [facility] Comment on above: Performed By: #### L 500.4100, L501.9985, L500.4050, L100.0100 ####[facility] [address] [place], [address] Nucleated RBC (Bld) [#/Vol] 0 10*3/uL Normal 0-5 [facility] Comment on above: Performed By: #### L 500.4100, L501.9985, L500.4050, L100.0100 ####[facility] [address] [place], [address] Platelet mean volume (Bld) [Entitic vol] 9.5 fL Normal 6.2-12.0 [facility] Comment on above: Performed By: #### L 500.4100, L501.9985, L500.4050, L100.0100 ####[facility] [address] [place], [address] Platelets (Bld) [#/Vol] 384 10*3/uL Normal 150-450 [facility] Comment on above: Performed By: #### L 500.4100, L501.9985, L500.4050, L100.0100 ####[facility] [address] [place], [address] RBC (Bld) [#/Vol] 4.00 10*6/uL Low 4.2-5.4 [facility] Comment on above: Performed By: #### L 500.4100, L501.9985, L500.4050, L100.0100 ####[facility] [address] [place], [address] RDW SD 50.0 fl High 35.1-43.9 [facility] Comment on above: Performed By: #### L 500.4100, L501.9985, L500.4050, L100.0100 ####[facility] [address] [place], [address] WBC (Bld) [#/Vol] 13.9 10*3/uL High 4.4-11.0 [facility] Comment on above: Performed By: #### L 500.4100, L501.9985, L500.4050, L100.0100 ####[facility] [address] [place], [address] Comprehensive Metabolic Prof sandip 07-17-2024 ALB Normal 3.2-5.0 [facility] Comment on above: Result Comment: MARISELA TAMEZ RN Performed By: #### L 500.4050 ####[facility] [address] [place], [address] ALK P Normal 45-117 [facility] Comment on above: Result Comment: MARISELA TAMEZ RN Performed By: #### L 500.4050 ####[facility] [address] [place], [address] ALT Normal 13-56 [facility] Comment on above: Result Comment: MARISELA TAMEZ RN Performed By: #### L 500.4050 ####[facility] [address] [place], [address] AST Normal 15-37 [facility] Comment on above: Result Comment: MARISELA TAMEZ RN Performed By: #### L 500.4050 ####[facility] [address] [place], [address] BUN Normal 7-18 [facility] Comment on above: Result Comment: MARISELA TAMEZ RN Performed By: #### L 500.4050 ####[facility] [address] [place], [address] BUN/CRE Normal 10-20 [facility] Comment on above: Result Comment: MARISELA TAMEZ RN Performed By: #### L 500.4050 ####[facility] [address] [place], [address] CA,Total Normal 8.5-10.1 [facility] Comment on above: Result Comment: MARISELA TAMEZ RN Performed By: #### L 500.4050 ####[facility] [address] [place], [address] CL Normal 98-107 [facility] Comment on above: Result Comment: MARISELA TAMEZ RN Performed By: #### L 500.4050 ####[facility] [address] [place], [address] CO2 Normal 21.0-32.0 [facility] Comment on above: Result Comment: MARISELA TAMEZ RN Performed By: #### L 500.4050 ####[facility] [address] [place], [address] CREAT,SERUM Normal 0.55-1.02 [facility] Comment on above: Result Comment: MARISELA TAMEZ RN Performed By: #### L 500.4050 ####[facility] [address] [place], [address] EST GFR Normal >60 [facility] Comment on above: Result Comment: MARISELA TAMEZ RN Performed By: #### L 500.4050 ####[facility] [address] [place], [address] EST GFR - AA Normal >60 [facility] Comment on above: Result Comment: MARISELA TAMEZ RN Performed By: #### L 500.4050 ####[facility] [address] [place], [address] GAP Normal 5-15 [facility] Comment on above: Result Comment: MARISELA TAMEZ RN Performed By: #### L 500.4050 ####[facility] [address] [place], [address] GLU Normal 74-106 [facility] Comment on above: Result Comment: MARISELA TAMEZ RN Performed By: #### L 500.4050 ####[facility] [address] [place], [address] Potassium Normal 3.5-5.1 [facility] Comment on above: Result Comment: MARISELA TAMEZ RN Performed By: #### L 500.4050 ####[facility] [address] [place], [address] T BILI Normal 0.20-1.00 [facility] Comment on above: Result Comment: MARISELA TAMEZ RN Performed By: #### L 500.4050 ####[facility] [address] [place], [address] T PROT Normal 6.4-8.2 [facility] Comment on above: Result Comment: MARISELA TAMEZ RN Performed By: #### L 500.4050 ####[facility] [address] [place], [address] Comprehensive Metabolic Profil Normal 136-145 [facility] Comment on above: Result Comment: MARISELA TAMEZ RN Performed By: #### L 500.4050 ####[facility] [address] [place], [address] Albumin [Mass/Vol] 3.9 g/dL Normal 3.2-5.0 [facility] Comment on above: Performed By: #### L 500.4100, L501.9985, L500.4050, L100.0100 ####[facility] [address] [place], [address] Albumin/Globulin [Mass ratio] 1.1 {ratio} Normal 0.9-2.4 [facility] Comment on above: Performed By: #### L 500.4100, L501.9985, L500.4050, L100.0100 ####[facility] [address] [place], [address] ALK P 123 U/L High 45-117 [facility] Comment on above: Performed By: #### L 500.4100, L501.9985, L500.4050, L100.0100 ####[facility] [address] [place], [address] ALT [Catalytic activity/Vol] 31 U/L Normal 13-56 [facility] Comment on above: Performed By: #### L 500.4100, L501.9985, L500.4050, L100.0100 ####[facility] [address] [place], [address] AST [Catalytic activity/Vol] 24 U/L Normal 15-37 [facility] Comment on above: Performed By: #### L 500.4100, L501.9985, L500.4050, L100.0100 ####[facility] [address] [place], [address] Bilirubin [Mass/Vol] 0.50 mg/dL Normal 0.20-1.00 [facility] Comment on above: Result Comment: For patients on eltrombopag therapy, use of Dimension [place] TBIL is not recommended. Performed By: #### L 500.4100, L501.9985, L500.4050, L100.0100 ####[facility] [address] [place], [address] BUN/CRE 11.4 RATIO Normal 10-20 [facility] Comment on above: Performed By: #### L 500.4100, L501.9985, L500.4050, L100.0100 ####[facility] [address] [place], [address] CA,Total 10.2 mg/dL High 8.5-10.1 [facility] Comment on above: Performed By: #### L 500.4100, L501.9985, L500.4050, L100.0100 ####[facility] [address] [place], [address] Chloride [Moles/Vol] 113 mmol/L High 98-107 [facility] Comment on above: Performed By: #### L 500.4100, L501.9985, L500.4050, L100.0100 ####[facility] [address] [place], [address] CO2 [Moles/Vol] 24.0 mmol/L Normal 21.0-32.0 [facility] Comment on above: Performed By: #### L 500.4100, L501.9985, L500.4050, L100.0100 ####[facility] [address] [place], [address] Creatinine [Mass/Vol] 3.08 mg/dL High 0.55-1.02 [facility] Comment on above: Result Comment: The validity of the calculated GFR GFRAA in patients over70 years has not been determined. Clinical correlation isessential. Performed By: #### L 500.4100, L501.9985, L500.4050, L100.0100 ####[facility] [address] [place], [address] ECRCL 14.87 ml/min Normal [facility] Comment on above: Performed By: #### L 500.4100, L501.9985, L500.4050, L100.0100 ####[facility] [address] [place], [address] EST GFR - AA 19 mL/min Low >60 [facility] Comment on above: Result Comment: Afri can Micronesian GFR Calc Performed By: #### L 500.4100, L501.9985, L500.4050, L100.0100 ####[facility] [address] [place], [address] GAP 8 Normal 5-15 [facility] Comment on above: Performed By: #### L 500.4100, L501.9985, L500.4050, L100.0100 ####[facility] [address] [place], [address] GFR/1.73 sq M.predicted among non-blacks MDRD (S/P/Bld) [Vol rate/Area] 16 mL/min/{1.73_m2} Low >60 [facility] Comment on above: Result Comment: Non- GFR Calc Performed By: #### L 500.4100, L501.9985, L500.4050, L100.0100 ####[facility] [address] [place], [address] Globulin (S) [Mass/Vol] 3.7 g/dL Normal 2.2-4.2 [facility] Comment on above: Performed By: #### L 500.4100, L501.9985, L500.4050, L100.0100 ####[facility] [address] [place], [address] Glucose [Mass/Vol] 119 mg/dL High 74-106 [facility] Comment on above: Result Comment: Fast ing Glucose result from 100 to 125 mg/dLsuggests IMPAIRED HOMEOSTASIS per A.D.A. criteria. Performed By: #### L 500.4100, L501.9985, L500.4050, L100.0100 ####[facility] [address] [place], [address] Potassium [Moles/Vol] 3.6 mmol/L Normal 3.5-5.1 [facility] Comment on above: Performed By: #### L 500.4100, L501.9985, L500.4050, L100.0100 ####[facility] [address] [place], [address] Sodium [Moles/Vol] 145 mmol/L Normal 136-145 [facility] Comment on above: Performed By: #### L 500.4100, L501.9985, L500.4050, L100.0100 ####[facility] [address] [place], [address] T PROT 7.6 g/dL Normal 6.4-8.2 [facility] Comment on above: Performed By: #### L 500.4100, L501.9985, L500.4050, L100.0100 ####[facility] [address] [place], [address] Urea nitrogen [Mass/Vol] 35 mg/dL High 7-18 [facility] Comment on above: Performed By: #### L 500.4100, L501.9985, L500.4050, L100.0100 ####[facility] [address] [place], [address] Hemoglobin A1con 07-17-2024 HbA1c (Bld) [Mass fraction] 5.6 % Normal 3.8-5.6 [facility] Comment on above: Result Comment: Norm al < 5.7 % Prediabetic 5.7 - 6.4 % Diabetic >or= 6.5 % Please note range changes. Performed By: #### L 500.4100, L501.9985, L500.4050, L100.0100 ####[facility] [address] [place], [address] Lipid Profileon 07-17-2024 Cholesterol [Mass/Vol] 153 mg/dL Normal 200 [facility] Comment on above: Result Comment: <200 mg/dL Desirable 200-240 mg/dL Borderline >240 mg/dL High Risk Performed By: #### L 500.4100, L501.9985, L500.4050, L100.0100 ####[facility] [address] [place], [address] Cholesterol in HDL [Mass/Vol] 61 mg/dL Normal [facility] Comment on above: Result Comment: The drugs N-Acetylcysteine and Metamizole may falselydepress this assay. Reference Range HDL <40 mg/dL Low HDL Cholesterol HDL >or= 60 mg/dL High HDL Cholesterol Performed By: #### L 500.4100, L501.9985, L500.4050, L100.0100 ####[facility] [address] [place], [address] Cholesterol in LDL [Mass/Vol] 44 mg/dL Normal 0-130 [facility] Comment on above: Performed By: #### L 500.4100, L501.9985, L500.4050, L100.0100 ####[facility] [address] [place], [address] Cholesterol in VLDL [Mass/Vol] 48 mg/dL High 5-40 [facility] Comment on above: Performed By: #### L 500.4100, L501.9985, L500.4050, L100.0100 ####[facility] [address] [place], [address] Triglyceride [Mass/Vol] 242 mg/dL High [facility] Comment on above: Result Comment: The drugs N-Acetylcysteine and Metamizole may falselydepress this assay.Serum Triglycerides Reference Interval Normal <150 mg/dL Borderline high 150 - 199 mg/dL High 200 - 499 mg/dL Very High > or = 500 mg/dL Performed By: #### L 500.4100, L501.9985, L500.4050, L100.0100 ####[facility] [address] [place], [address] MR/CON.PCM.NEon 07-17-2024 MR/CON.PCM.NE Normal [facility] 12 Lead EKGon 07-16-2024 12 Lead EKG Normal [facility] Ammoniaon 07-16-2024 Ammonia (P) [Moles/Vol] 25.0 umol/L Normal - [facility] Comment on above: Performed By: #### L 500.2500, L503.5510, L300.4310, L300.3900, L100.0100, L500.3400 ####[facility] [address] [place], [address] Basic Metabolic Profile (BMP )on 07-16-2024 BUN/CRE 13.4 RATIO Normal -20 [facility] Comment on above: Performed By: #### L 500.2500, L503.5510, L300.4310, L300.3900, L100.0100, L500.3400 ####[facility] [address] [place], [address] CA,Total 9.6 mg/dL Normal 8.5-10.1 [facility] Comment on above: Performed By: #### L 500.2500, L503.5510, L300.4310, L300.3900, L100.0100, L500.3400 ####[facility] [address] [place], [address] Chloride [Moles/Vol] 114 mmol/L High 98-107 [facility] Comment on above: Performed By: #### L 500.2500, L503.5510, L300.4310, L300.3900, L100.0100, L500.3400 ####[facility] [address] [place], [address] CO2 [Moles/Vol] 23.0 mmol/L Normal 21.0-32.0 [facility] Comment on above: Performed By: #### L 500.2500, L503.5510, L300.4310, L300.3900, L100.0100, L500.3400 ####[facility] [address] [place], [address] Creatinine [Mass/Vol] 3.06 mg/dL High 0.55-1.02 [facility] Comment on above: Result Comment: The validity of the calculated GFR GFRAA in patients over70 years has not been determined. Clinical correlation isessential. Performed By: #### L 500.2500, L503.5510, L300.4310, L300.3900, L100.0100, L500.3400 ####[facility] [address] [place], [address] ECRCL 15.87 ml/min Normal [facility] Comment on above: Performed By: #### L 500.2500, L503.5510, L300.4310, L300.3900, L100.0100, L500.3400 ####[facility] [address] [place], [address] EST GFR - AA 19 mL/min Low >60 [facility] Comment on above: Result Comment: Afri can Micronesian GFR Calc Performed By: #### L 500.2500, L503.5510, L300.4310, L300.3900, L100.0100, L500.3400 ####[facility] [address] [place], [address] GAP 7 Normal 5-15 [facility] Comment on above: Performed By: #### L 500.2500, L503.5510, L300.4310, L300.3900, L100.0100, L500.3400 ####[facility] [address] [place], [address] GFR/1.73 sq M.predicted among non-blacks MDRD (S/P/Bld) [Vol rate/Area] 16 mL/min/{1.73_m2} Low >60 [facility] Comment on above: Result Comment: Non- GFR Calc Performed By: #### L 500.2500, L503.5510, L300.4310, L300.3900, L100.0100, L500.3400 ####[facility] [address] [place], [address] Glucose [Mass/Vol] 150 mg/dL High 74-106 [facility] Comment on above: Result Comment: Fast ing Glucose result greater than or equal to 126 mg/dLsuggests DIABETES MELLITUS per A.D.A. criteria. Performed By: #### L 500.2500, L503.5510, L300.4310, L300.3900, L100.0100, L500.3400 ####[facility] [address] [place], [address] Potassium [Moles/Vol] 3.2 mmol/L Low 3.5-5.1 [facility] Comment on above: Performed By: #### L 500.2500, L503.5510, L300.4310, L300.3900, L100.0100, L500.3400 ####[facility] [address] [place], [address] Sodium [Moles/Vol] 144 mmol/L Normal 136-145 [facility] Comment on above: Performed By: #### L 500.2500, L503.5510, L300.4310, L300.3900, L100.0100, L500.3400 ####[facility] [address] [place], [address] Urea nitrogen [Mass/Vol] 41 mg/dL High 7-18 [facility] Comment on above: Performed By: #### L 500.2500, L503.5510, L300.4310, L300.3900, L100.0100, L500.3400 ####[facility] [address] [place], [address] Brain without Contraston Brain without Contrast Normal [facility] Brain/Head without Contrasto n 07-16-2024 Brain/Head without Contrast Normal [facility] CBC W/Diff, Automatedon 07-03 Absolute Lymph 1.32 X10 3/uL Normal 0.83-4.51 [facility] Comment on above: Performed By: #### L 500.2500, L503.5510, L300.4310, L300.3900, L100.0100, L500.3400 ####[facility] [address] [place], [address] Absolute Neut 10.2 X10 3/uL High 2.0-7.7 [facility] Comment on above: Performed By: #### L 500.2500, L503.5510, L300.4310, L300.3900, L100.0100, L500.3400 ####[facility] [address] [place], [address] Basophils/100 WBC (Bld) 0.3 % Normal 0-1 [facility] Comment on above: Performed By: #### L 500.2500, L503.5510, L300.4310, L300.3900, L100.0100, L500.3400 ####[facility] [address] [place], [address] Eosinophils/100 WBC (Bld) 0.1 % Normal 0-5 [facility] Comment on above: Performed By: #### L 500.2500, L503.5510, L300.4310, L300.3900, L100.0100, L500.3400 ####[facility] [address] [place], [place], [phone] Erythrocyte distribution width (RBC) [Ratio] 14.2 % Normal 11.6-14.6 [facility] Comment on above: Performed By: #### L 500.2500, L503.5510, L300.4310, L300.3900, L100.0100, L500.3400 ####[facility] [address] [place], [address] Hematocrit (Bld) [Volume fraction] 32.0 % Low 37-47 [facility] Comment on above: Performed By: #### L 500.2500, L503.5510, L300.4310, L300.3900, L100.0100, L500.3400 ####[facility] [address] [place], [address] Hemoglobin (Bld) [Mass/Vol] 10.4 g/dL Low 12.0-15.0 [facility] Comment on above: Performed By: #### L 500.2500, L503.5510, L300.4310, L300.3900, L100.0100, L500.3400 ####[facility] [address] [place], [address] IG% 0.800 Normal 0.0-0.9 [facility] Comment on above: Result Comment: IG% - Immature Granulocytes (promyelocytes, myelocytes andmetamyelocytes) > 1% indicates that a LEFT SHIFT is Present. Performed By: #### L 500.2500, L503.5510, L300.4310, L300.3900, L100.0100, L500.3400 ####[facility] [address] [place], [address] Lymphocytes/100 WBC (Bld) 11.0 % Low 19-41 [facility] Comment on above: Performed By: #### L 500.2500, L503.5510, L300.4310, L300.3900, L100.0100, L500.3400 ####[facility] [address] [place], [address] MCH (RBC) [Entitic mass] 30.7 pg Normal 27.0-32.0 [facility] Comment on above: Performed By: #### L 500.2500, L503.5510, L300.4310, L300.3900, L100.0100, L500.3400 ####[facility] [address] [place], [address] MCHC (RBC) [Mass/Vol] 32.5 g/dL Normal 32-36 [facility] Comment on above: Performed By: #### L 500.2500, L503.5510, L300.4310, L300.3900, L100.0100, L500.3400 ####[facility] [address] [place], [address] MCV (RBC) [Entitic vol] 94.4 fL Normal 81-99 [facility] Comment on above: Performed By: #### L 500.2500, L503.5510, L300.4310, L300.3900, L100.0100, L500.3400 ####[facility] [address] [place], [address] Monocytes/100 WBC (Bld) 3.0 % Normal 0-10 [facility] Comment on above: Performed By: #### L 500.2500, L503.5510, L300.4310, L300.3900, L100.0100, L500.3400 ####[facility] [address] [place], [address] Neutrophils/100 WBC (Bld) 84.8 % High 47-70 [facility] Comment on above: Performed By: #### L 500.2500, L503.5510, L300.4310, L300.3900, L100.0100, L500.3400 ####[facility] [address] [place], [address] Nucleated RBC (Bld) [#/Vol] 0 10*3/uL Normal 0-5 [facility] Comment on above: Performed By: #### L 500.2500, L503.5510, L300.4310, L300.3900, L100.0100, L500.3400 ####[facility] [address] [place], [address] Platelet mean volume (Bld) [Entitic vol] 9.9 fL Normal 6.2-12.0 [facility] Comment on above: Performed By: #### L 500.2500, L503.5510, L300.4310, L300.3900, L100.0100, L500.3400 ####[facility] [address] [place], [address] Platelets (Bld) [#/Vol] 338 10*3/uL Normal 150-450 [facility] Comment on above: Performed By: #### L 500.2500, L503.5510, L300.4310, L300.3900, L100.0100, L500.3400 ####[facility] [address] [place], [address] RBC (Bld) [#/Vol] 3.39 10*6/uL Low 4.2-5.4 [facility] Comment on above: Performed By: #### L 500.2500, L503.5510, L300.4310, L300.3900, L100.0100, L500.3400 ####[facility] [address] [place], [address] RDW SD 48.1 fl High 35.1-43.9 [facility] Comment on above: Performed By: #### L 500.2500, L503.5510, L300.4310, L300.3900, L100.0100, L500.3400 ####[facility] [address] [place], [address] WBC (Bld) [#/Vol] 12.0 10*3/uL High 4.4-11.0 [facility] Comment on above: Performed By: #### L 500.2500, L503.5510, L300.4310, L300.3900, L100.0100, L500.3400 ####[facility] [address] [place], [address] Chest 1 View (Portable)on Chest 1 View (Portable) Normal [facility] Echo Completeon 07-16-2024 Echo Complete Normal [facility] Emergency Department Summary on 07-16-2024 Emergency Department Summary Normal [facility] H AND P Exam - Hospitaliston 07-16-2024 H&P Exam - Hospitalist Normal [facility] Liver Profileon 07-16-2024 Albumin [Mass/Vol] 3.8 g/dL Normal 3.2-5.0 [facility] Comment on above: Performed By: #### L 500.2500, L503.5510, L300.4310, L300.3900, L100.0100, L500.3400 ####[facility] [address] [place], [address] ALK P 114 U/L Normal 45-117 [facility] Comment on above: Performed By: #### L 500.2500, L503.5510, L300.4310, L300.3900, L100.0100, L500.3400 ####[facility] [address] [place], [address] ALT [Catalytic activity/Vol] 34 U/L Normal 13-56 [facility] Comment on above: Performed By: #### L 500.2500, L503.5510, L300.4310, L300.3900, L100.0100, L500.3400 ####[facility] [address] [place], [address] AST [Catalytic activity/Vol] 19 U/L Normal 15-37 [facility] Comment on above: Performed By: #### L 500.2500, L503.5510, L300.4310, L300.3900, L100.0100, L500.3400 ####[facility] [address] [place], [address] Bilirubin [Mass/Vol] 0.40 mg/dL Normal 0.20-1.00 [facility] Comment on above: Result Comment: For patients on eltrombopag therapy, use of Dimension [place] TBIL is not recommended. Performed By: #### L 500.2500, L503.5510, L300.4310, L300.3900, L100.0100, L500.3400 ####[facility] [address] [place], [address] Bilirubin.direct [Mass/Vol] 0.13 mg/dL Normal 0.00-0.30 [facility] Comment on above: Performed By: #### L 500.2500, L503.5510, L300.4310, L300.3900, L100.0100, L500.3400 ####[facility] [address] [place], [address] Globulin (S) [Mass/Vol] 3.5 g/dL Normal 2.2-4.2 [facility] Comment on above: Performed By: #### L 500.2500, L503.5510, L300.4310, L300.3900, L100.0100, L500.3400 ####[facility] [address] [place], [address] T PROT 7.3 g/dL Normal 6.4-8.2 [facility] Comment on above: Performed By: #### L 500.2500, L503.5510, L300.4310, L300.3900, L100.0100, L500.3400 ####[facility] [address] [place], [address] M100.678on 07-16-2024 M100.678 Pending SARS-CoV-2 (COVID 19) Negative INFLUENZA A Negative INFLUENZA B Negative RSV PCR Negative Normal [facility] Comment on above: Performed By: #### M 100.678 ####[facility] [address] [place], [address] Magnesiumon 07-16-2024 Magnesium [Mass/Vol] 1.9 mg/dL Normal 1.6-2.6 [facility] Comment on above: Order Comment: Comme nts: may add to ED labs Performed By: #### L 501.5200 ####[facility] [address] [place], [address] Partial Thromboplast Timeon 07-16-2024 aPTT Coag (Bld) [Time] 33.1 s Normal 24.1-36.2 [facility] Comment on above: Performed By: #### L 500.2500, L503.5510, L300.4310, L300.3900, L100.0100, L500.3400 ####[facility] [address] [place], [address] Pelvis 1 or 2 Viewson 2023 Pelvis 1 or 2 Views Normal [facility] Prothrombin Time w/INRon INR Coag (PPP) [Relative time] 1.2 {INR} Normal [facility] Comment on above: Performed By: #### L 500.2500, L503.5510, L300.4310, L300.3900, L100.0100, L500.3400 ####[facility] [address] [place], [address] PT Coag (PPP) [Time] 15.6 s High 11.7-14.9 [facility] Comment on above: Performed By: #### L 500.2500, L503.5510, L300.4310, L300.3900, L100.0100, L500.3400 ####[facility] [address] [place], [address] Spine Cervical without Contr ason 07-16-2024 Spine Cervical without Contras Normal [facility] Thyroid Stim Hormone (TSH)on 07-16-2024 TSH 1.330 uIU/mL Normal 0.358-3.740 [facility] Comment on above: Performed By: #### L 501.9520 ####[facility] [address] [place], [address] Urinalysis, Completeon 07-16 BACTERIA 0 SEEN Normal None Seen [facility] Comment on above: Order Comment: BLADD ER TAP Performed By: #### L 400.0001 ####[facility] [address] [place], [address] EPI,SQUAMOUS 0 SEEN Normal 5-10 [facility] Comment on above: Order Comment: BLADD ER TAP Performed By: #### L 400.0001 ####[facility] [address] [place], [address] Mucus Ql (Urine sed) 0 SEEN Normal [facility] Comment on above: Order Comment: BLADD ER TAP Performed By: #### L 400.0001 ####[facility] [address] [place], [address] RBC 0 SEEN Normal 0-5 [facility] Comment on above: Order Comment: BLADD ER TAP Performed By: #### L 400.0001 ####[facility] [address] [facility] [address] WBC 0 SEEN Normal 0-5 [facility] Comment on above: Order Comment: BLADD ER TAP Performed By: #### L 400.0001 ####[facility] [address] [place] [address] Urine Drug Screen (VISTA)on 07-16-2024 AMPHETAMINES Negative Normal <1000 ng/mL [facility] Comment on above: Performed By: #### L 505.5000 ####[facility] [address] [place] [id number] BARBITIURATES Negative Normal < 200 ng/mL [facility] Comment on above: Performed By: #### L 505.5000 ####[facility] [address] [place] [address] BENZODIAZIPINE Negative Normal < 200 ng/mL [facility] Comment on above: Performed By: #### L 505.5000 ####[facility] [address] [place] [address] COCAINE Negative Normal < 300 ng/mL [facility] Comment on above: Performed By: #### L 505.5000 ####[facility] [address] [place] [id number] ECSTACY Negative Normal < 500 ng/mL [facility] Comment on above: Performed By: #### L 505.5000 ####[facility] [address] [place], [address] METHADONE Negative Normal < 300 ng/mL [facility] Comment on above: Performed By: #### L 505.5000 ####[facility] [address] [place], [address] OPIATES Negative Normal < 300 ng/mL [facility] Comment on above: Performed By: #### L 505.5000 ####[facility] [address] [place], [address] PCP Negative Normal < 25 ng/mL [facility] Comment on above: Performed By: #### L 505.5000 ####[facility] [address] [place], [address] THC Negative Normal < 50 ng/mL [facility] Comment on above: Performed By: #### L 505.5000 ####[facility] [address] [place], [address] VISTA UDS PH 6 Normal [facility] Comment on above: Performed By: #### L 505.5000 ####[facility] [address] [place], [address] Venous Blood Gason 4 Blood Gas Type ARELI Normal [facility] Comment on above: Performed By: #### L 9000.0810 ####[facility] [address] [place], [address] CO2 [Moles/Vol] 20 mmol/L Low 23-33 [facility] Comment on above: Performed By: #### L 9000.0810 ####[facility] [address] [place], [address] HCO3 (Bld) [Moles/Vol] 20 mmol/L Low 22-26 [facility] Comment on above: Performed By: #### L 9000.0810 ####[facility] [address] [place], [address] O2 Delivery Dev Not entered Normal [facility] Comment on above: Performed By: #### L 9000.0810 ####[facility] [address] [place], [address] SITE Not entered Normal [facility] Comment on above: Performed By: #### L 9000.0810 ####[facility] [address] [place], [address] VBG BE -5 mmol/L Low -1.0-3.5 [facility] Comment on above: Performed By: #### L 9000.0810 ####[facility] [address] [place], [address] VBG pCO2 30.5 mmHg Low 41-51 [facility] Comment on above: Performed By: #### L 9000.0810 ####[facility] [address] [place], [address] VBG pH 7.41 Normal 7.32-7.42 [facility] Comment on above: Performed By: #### L 9000.0810 ####[facility] [address] [place], [address] VBG PO2 99 mmHg High 25-40 [facility] Comment on above: Performed By: #### L 9000.0810 ####[facility] [address] [place], [address] VBG SO2 98 High 50-70 [facility] Comment on above: Performed By: #### L 9000.0810 ####[facility] [address] [place], [address] EGD Study observation Narrat iveon 03-23-2024 [facility] Gastrointestinal Endoscopy Patient Name: Kary Haddad Procedure Date: 03/23/2024 11:01 AM Date of : 1955 Admit Type: Outpatient Room: [place] [address] Gender: Female Note Status: Finalized Attending MD: Casimiro Torrez MD, [id number] Procedure: Upper GI endoscopy Indications: Follow-up of [...] Note Initiated On: 03/23/2024 11:01 AM [facility]OV[facility] Radiology Study observation (narrative) [facility] Absolute lymphocyte countOrd ered By: Ronald Lowe on 12-03-2023 Lymphocytes Auto (Unsp spec) [#/Vol] 1.83 10*3/uL 0.83-4.51 [facility] Automated lymphocyte count a s percentage of total leukocytesOrdered By: Ronald Lowe on 12-03-2023 Lymphocytes/100 WBC Auto (Unsp spec) 26.7 % 19-41 [facility] Basophil percentageOrdered B y: Ronald Lowe on 12-03-2023 Basophil percentage 2.4 mg/dL 2.5-4.9 [facility] Basophils/100 WBC (Bld) 0.7 % 0-1 [facility] Chloride [Moles/Vol] 117 mmol/L 98-107 [facility] Eosinophils/100 WBC (Bld) 4.4 % 0-5 [facility] Glucose [Mass/Vol] 105 mg/dL 74-106 [facility] Comment on above: Fasting Glucose resu lt from 100 to 125 mg/dL suggests IMPAIRED HOMEOSTASIS per A.D.A. criteria. Hemoglobin (Bld) [Mass/Vol] 9.5 g/dL 12.0-15.0 [facility] Monocytes/100 WBC (Bld) 9.9 % 0-10 [facility] Neutrophils (Bld) [#/Vol] 4.0 10*3/uL 2.0-7.7 [facility] Neutrophils/100 WBC (Bld) 57.9 % 47-70 [facility] Potassium [Moles/Vol] 4.1 mmol/L 3.5-5.1 [facility] Sodium [Moles/Vol] 143 mmol/L 136-145 [facility] WBC (Bld) [#/Vol] 6.9 10*3/uL 4.4-11.0 [facility] Determination of erythrocyte mean corpuscular volume (MCV)Ordered By: Ronald Lowe on 12-03-2023 MCV (RBC) [Entitic vol] 91.1 fL 81-99 [facility] Erythrocyte distribution wid th ratioOrdered By: Ronald Lowe on 12-03-2023 Erythrocyte distribution width (RBC) [Ratio] 13.7 % 11.6-14.6 [facility] Erythrocyte distribution wid th standard deviationOrdered By: Ronald Lowe on 12-03-2023 Erythrocyte distribution width (RBC) [Entitic vol] 46.1 fL 35.1-43.9 [facility] Hematocrit Auto (Bld) [Volum e fraction]Ordered By: Ronald Lowe on 12-03-2023 Hematocrit (Bld) [Volume fraction] 29.8 % 37-47 [facility] Immature granulocytes/100 WB C Auto (Bld)Ordered By: Ronald Loew on 12-03-2023 Immature granulocytes/100 WBC (Bld) 0.400 % 0.0-0.9 [facility] Comment on above: IG% - Immature Granu locytes (promyelocytes, myelocytes and metamyelocytes) > 1% indicates that a LEFT SHIFT is Present. Laboratory - Chemistry and C hemistry - challengeOrdered By: Ronald Lowe on 12-03-2023 CO2 [Moles/Vol] 20.0 mmol/L 21.0-32.0 [facility] Magnesium [Mass/Vol] 1.6 mg/dL 1.6-2.6 [facility] Urea nitrogen/Creatinine [Mass ratio] 16.2 mg/mg 10-20 [facility] Laboratory - Hematology and Cell countsOrdered By: Ronald Lowe on 12-03-2023 MCH (RBC) [Entitic mass] 29.1 pg 27.0-32.0 [facility] MCHC (RBC) [Mass/Vol] 31.9 g/dL 32-36 [facility] Nucleated RBC/100 WBC (Bld) [Ratio] 0 % 0-5 [facility] Platelet mean volume (Bld) [Entitic vol] 11.5 fL 6.2-12.0 [facility] Platelets (Bld) [#/Vol] 276 10*3/uL 150-450 [facility] No Panel InformationOrdered By: Ronald Lowe on 12-03-2023 Estimated Creatinine Clearance Calc 33.93 ml/min [facility] Estimated GFR (MDRD) Amer 47 mL/min >60 [facility] Comment on above: GFR Calc Estimated GFR (MDRD) Non-Af Amer 39 mL/min >60 [facility] Comment on above: Non- GFR Calc RBC Auto (Bld) [#/Vol]Ordere d By: Ronald Lowe on 12-03-2023 RBC (Bld) [#/Vol] 3.27 10*6/uL 4.2-5.4 [facility] Serum or plasma calcium yamil urement (mass/volume)Ordered By: Ronald Lowe on 12-03-2023 Calcium [Mass/Vol] 8.6 mg/dL 8.5-10.1 [facility] Serum or plasma creatinine m easurement (mass/volume)Ordered By: Ronald Lowe on 12-03-2023 Creatinine [Mass/Vol] 1.42 mg/dL 0.55-1.02 [facility] Comment on above: The validity of the calculated GFR & GFRAA in patients over 70 years has not been determined. Clinical correlation is essential. Serum or plasma urea nitroge n measurement (mass/volume)Ordered By: Ronald Lowe on 12-03-2023 Urea nitrogen [Mass/Vol] 23 mg/dL 7-18 [facility] Thin prep Papanicolaou smear with manual screeningOrdered By: Ronald Lowe on 12-03-2023 Thin prep Papanicolaou smear with manual screening 6 5-15 [facility] Absolute lymphocyte countOrd ered By: Raisa Calhoun on 12-01-2023 Lymphocytes Auto (Unsp spec) [#/Vol] 2.01 10*3/uL 0.83-4.51 [facility] Activated partial thrombopla stin time (aPTT) in platelet poor plasma by coagulation aOrdered By: Raisa Calhoun on 12-01-2023 aPTT Coag (PPP) [Time] 28.2 s 24.1-36.2 [facility] Automated lymphocyte count a s percentage of total leukocytesOrdered By: Raisa Calhoun on 12-01-2023 Lymphocytes/100 WBC Auto (Unsp spec) 16.6 % 19-41 [facility] Basophil percentageOrdered B y: Raisa Calhoun on 12-01-2023 Basophils/100 WBC (Bld) 0.7 % 0-1 [facility] Bilirubin [Mass/Vol] 0.40 mg/dL 0.20-1.00 [facility] Comment on above: For patients on eltr ombopag therapy, use of Dimension [place] TBIL is not recommended. Chloride [Moles/Vol] 109 mmol/L 98-107 [facility] Eosinophils/100 WBC (Bld) 2.2 % 0-5 [facility] Glucose [Mass/Vol] 139 mg/dL 74-106 [facility] Comment on above: Fasting Glucose resu lt greater than or equal to 126 mg/dL suggests DIABETES MELLITUS per A.D.A. criteria. Hemoglobin (Bld) [Mass/Vol] 11.1 g/dL 12.0-15.0 [facility] Lactate [Moles/Vol] 1.3 mmol/L 0.4-2.0 [facility] Monocytes/100 WBC (Bld) 8.4 % 0-10 [facility] Neutrophils (Bld) [#/Vol] 8.7 10*3/uL 2.0-7.7 [facility] Neutrophils/100 WBC (Bld) 71.5 % 47-70 [facility] Potassium [Moles/Vol] 3.9 mmol/L 3.5-5.1 [facility] Protein [Mass/Vol] 6.9 g/dL 6.4-8.2 [facility] Sodium [Moles/Vol] 139 mmol/L 136-145 [facility] WBC (Bld) [#/Vol] 12.1 10*3/uL 4.4-11.0 [facility] Determination of erythrocyte mean corpuscular volume (MCV)Ordered By: Raisa Calhoun on 12-01-2023 MCV (RBC) [Entitic vol] 89.7 fL 81-99 [facility] Direct bilirubinOrdered By: Raisa Calhoun on 12-01-2023 Bilirubin.direct [Mass/Vol] 0.12 mg/dL 0.00-0.30 [facility] Erythrocyte distribution wid th ratioOrdered By: Raisa Calhoun on 12-01-2023 Erythrocyte distribution width (RBC) [Ratio] 13.9 % 11.6-14.6 [facility] Erythrocyte distribution wid th standard deviationOrdered By: Raisa Calhoun on 12-01-2023 Erythrocyte distribution width (RBC) [Entitic vol] 45.1 fL 35.1-43.9 [facility] Hematocrit Auto (Bld) [Volum e fraction]Ordered By: Raisa Calhoun on 12-01-2023 Hematocrit (Bld) [Volume fraction] 34.7 % 37-47 [facility] Immature granulocytes/100 WB C Auto (Bld)Ordered By: Raisa Calhoun on 12-01-2023 Immature granulocytes/100 WBC (Bld) 0.600 % 0.0-0.9 [facility] Comment on above: IG% - Immature Granu locytes (promyelocytes, myelocytes and metamyelocytes) > 1% indicates that a LEFT SHIFT is Present. Laboratory - Chemistry and C hemistry - challengeOrdered By: Raisa Calhoun on 12-01-2023 ALP [Catalytic activity/Vol] 76 U/L 45-117 [facility] ALT [Catalytic activity/Vol] 20 U/L 13-56 [facility] CO2 [Moles/Vol] 23.0 mmol/L 21.0-32.0 [facility] Globulin (S) [Mass/Vol] 3.4 g/dL 2.2-4.2 [facility] Urea nitrogen/Creatinine [Mass ratio] 28.0 mg/mg 10-20 [facility] Laboratory - CoagulationOrde red By: Raisa Calhoun on 12-01-2023 INR Coag (Bld) [Relative time] 1.1 {INR} [facility] PT Coag (PPP) [Time] 14.6 s 11.7-14.9 [facility] Laboratory - Hematology and Cell countsOrdered By: Raisa Calhoun on 12-01-2023 MCH (RBC) [Entitic mass] 28.7 pg 27.0-32.0 [facility] MCHC (RBC) [Mass/Vol] 32.0 g/dL 32-36 [facility] Nucleated RBC/100 WBC (Bld) [Ratio] 0 % 0-5 [facility] Platelet mean volume (Bld) [Entitic vol] 10.5 fL 6.2-12.0 [facility] Platelets (Bld) [#/Vol] 401 10*3/uL 150-450 [facility] No Panel InformationOrdered By: Raisa Calhoun on 12-01-2023 Estimated Creatinine Clearance Calc 25.91 ml/min [facility] Estimated GFR (MDRD) Amer 34 mL/min >60 [facility] Comment on above: GFR Calc Estimated GFR (MDRD) Non-Af Amer 28 mL/min >60 [facility] Comment on above: Non- GFR Calc RBC Auto (Bld) [#/Vol]Ordere d By: Raisa Calhoun on 12-01-2023 RBC (Bld) [#/Vol] 3.87 10*6/uL 4.2-5.4 [facility] Serum or plasma calcium yamil urement (mass/volume)Ordered By: Raisa Calhoun on 12-01-2023 Calcium [Mass/Vol] 9.4 mg/dL 8.5-10.1 [facility] Serum or plasma creatinine m easurement (mass/volume)Ordered By: Raisa Calhoun on 12-01-2023 Creatinine [Mass/Vol] 1.86 mg/dL 0.55-1.02 [facility] Comment on above: The validity of the calculated GFR & GFRAA in patients over 70 years has not been determined. Clinical correlation is essential. Serum or plasma urea nitroge n measurement (mass/volume)Ordered By: Raisa Calhoun on 12-01-2023 Urea nitrogen [Mass/Vol] 52 mg/dL 7-18 [facility] Stool gastrointestinal hemog lobin detection by immunologic methodOrdered By: Raisa Calhoun on 12-01-2023 Lower GI hemoglobin IA Ql (Stl) [facility] Thin prep Papanicolaou smear with manual screeningOrdered By: Raisa Calhoun on 12-01-2023 Thin prep Papanicolaou smear with manual screening 3.5 g/dL 3.2-5.0 [facility] Thin prep Papanicolaou smear with manual screening 18 U/L 15-37 [facility] Thin prep Papanicolaou smear with manual screening 7 5-15 [facility] Absolute lymphocyte countOrd ered By: Ronald Lowe on 07-27-2023 Lymphocytes Auto (Unsp spec) [#/Vol] 2.05 10*3/uL 0.83-4.51 [facility] Basophil percentageOrdered B y: Ronald Lowe on 07-27-2023 Basophil percentage 2.7 mg/dL 2.5-4.9 [facility] Basophils/100 WBC (Bld) 0.8 % 0-1 [facility] Chloride [Moles/Vol] 113 mmol/L 98-107 [facility] Eosinophils/100 WBC (Bld) 2.6 % 0-5 [facility] Glucose [Mass/Vol] 127 mg/dL 74-106 [facility] Comment on above: Fasting Glucose resu lt greater than or equal to 126 mg/dL suggests DIABETES MELLITUS per A.D.A. criteria. Neutrophils (Bld) [#/Vol] 6.8 10*3/uL 2.0-7.7 [facility] Neutrophils/100 WBC (Bld) 65.5 % 47-70 [facility] Potassium [Moles/Vol] 3.8 mmol/L 3.5-5.1 [facility] Sodium [Moles/Vol] 140 mmol/L 136-145 [facility] WBC (Bld) [#/Vol] 10.4 10*3/uL 4.4-11.0 [facility] Blood erythrocytes count (nu mber/volume)Ordered By: Ronald Lowe on 07-27-2023 RBC (Bld) [#/Vol] 3.84 10*6/uL 4.2-5.4 [facility] Blood hemoglobin measurement (mass/volume)Ordered By: Ronald Lowe on 07-27-2023 Hemoglobin (Bld) [Mass/Vol] 11.1 g/dL 12.0-15.0 [facility] Blood lymphocytes/100 leukoc ytesOrdered By: Ronald Lowe on 07-27-2023 Lymphocytes/100 WBC (Bld) 19.7 % 19-41 [facility] Blood monocytes/100 leukocyt esOrdered By: Ronald Lowe on 07-27-2023 Monocytes/100 WBC (Bld) 10.8 % 0-10 [facility] Blood platelet mean volumeOr dered By: Ronald Lowe on 07-27-2023 Platelet mean volume (Bld) [Entitic vol] 11.2 fL 6.2-12.0 [facility] Determination of erythrocyte mean corpuscular volume (MCV)Ordered By: Ronald Lowe on 07-27-2023 MCV (RBC) [Entitic vol] 91.9 fL 81-99 [facility] Hematocrit Auto (Bld) [Volum e fraction]Ordered By: Ronald Lowe on 07-27-2023 Hematocrit (Bld) [Volume fraction] 35.3 % 37-47 [facility] Laboratory - Chemistry and C hemistry - challengeOrdered By: Ronald Lowe on 07-27-2023 CO2 [Moles/Vol] 22.0 mmol/L 21.0-32.0 [facility] Magnesium [Mass/Vol] 1.6 mg/dL 1.6-2.6 [facility] Urea nitrogen/Creatinine [Mass ratio] 21.7 mg/mg 10-20 [facility] Laboratory - Hematology and Cell countsOrdered By: Ronald Lowe on 07-27-2023 Erythrocyte distribution width (RBC) [Entitic vol] 49.1 fL 35.1-43.9 [facility] Erythrocyte distribution width (RBC) [Ratio] 14.6 % 11.6-14.6 [facility] Immature granulocytes/100 WBC (Bld) 0.600 % 0.0-0.9 [facility] Comment on above: IG% - Immature Granu locytes (promyelocytes, myelocytes and metamyelocytes) > 1% indicates that a LEFT SHIFT is Present. MCH (RBC) [Entitic mass] 28.9 pg 27.0-32.0 [facility] Nucleated RBC/100 WBC (Bld) [Ratio] 0 % 0-5 [facility] MCHC Auto (RBC) [Mass/Vol]Or dered By: Ronald Lowe on 07-27-2023 MCHC (RBC) [Mass/Vol] 31.4 g/dL 32-36 [facility] No Panel InformationOrdered By: Ronald Lowe on 07-27-2023 Estimated Creatinine Clearance Calc 30.00 ml/min [facility] Estimated GFR (MDRD) Amer 49 mL/min >60 [facility] Comment on above: GFR Calc Estimated GFR (MDRD) Non-Af Amer 40 mL/min >60 [facility] Comment on above: Non- GFR Calc Platelets bldOrdered By: Donnie Lowe on 07-27-2023 Platelets (Bld) [#/Vol] 301 10*3/uL 150-450 [facility] Serum or plasma calcium yamil urement (mass/volume)Ordered By: Ronald Lowe on 07-27-2023 Calcium [Mass/Vol] 9.1 mg/dL 8.5-10.1 [facility] Serum or plasma creatinine m easurement (mass/volume)Ordered By: Ronald Lowe on 07-27-2023 Creatinine [Mass/Vol] 1.38 mg/dL 0.55-1.02 [facility] Comment on above: The validity of the calculated GFR & GFRAA in patients over 70 years has not been determined. Clinical correlation is essential. Serum or plasma urea nitroge n measurement (mass/volume)Ordered By: Ronald Lowe on 07-27-2023 Urea nitrogen [Mass/Vol] 30 mg/dL 7-18 [facility] Thin prep Papanicolaou smear with manual screeningOrdered By: Ronald Lowe on 07-27-2023 Thin prep Papanicolaou smear with manual screening 5 5-15 [facility] Basophil percentageOrdered B y: Melecio Torrez on 07-26-2023 Bilirubin [Mass/Vol] 0.40 mg/dL 0.20-1.00 [facility] Comment on above: For patients on eltr ombopag therapy, use of Dimension [place] TBIL is not recommended. Protein [Mass/Vol] 6.3 g/dL 6.4-8.2 [facility] Blood manual differential co mment interpretation (narrative result)Ordered By: Melecio Torrez on 07-26-2023 Manual differential comment Fitz (Bld) [Interp] SCANNED [facility] Comment on above: MONOCYTOSIS PRESENT Blood platelet morphology de termination (nominal result)Ordered By: Melecio Torrez on 07-26-2023 Platelet morphology finding Nom (Bld) LARGE [facility] Direct bilirubinOrdered By: Melecio Torrez on 07-26-2023 Bilirubin.direct [Mass/Vol] 0.12 mg/dL 0.00-0.30 [facility] INR in Blood by Coagulation assayOrdered By: Melecio Torrez on 07-26-2023 INR Coag (Bld) [Relative time] 1.1 {INR} [facility] Laboratory - Chemistry and C hemistry - challengeOrdered By: Melecio Torrez on 07-26-2023 ALP [Catalytic activity/Vol] 68 U/L 45-117 [facility] ALT [Catalytic activity/Vol] 26 U/L 13-56 [facility] Globulin (S) [Mass/Vol] 3.1 g/dL 2.2-4.2 [facility] Natriuretic peptide B (Bld) [Mass/Vol] 1014.8 pg/mL 0-100 [facility] Laboratory - CoagulationOrde red By: Melecio Torrez on 07-26-2023 aPTT Coag (Bld) [Time] 45.6 s 24.1-36.2 [facility] PT Coag (PPP) [Time] 14.7 s 11.7-14.9 [facility] No Panel InformationOrdered By: Melecio Torrez on 07-26-2023 Troponin I High Sensitivity 1815 pg/mL 3.0-54.0 [facility] Comment on above: Critical Result(s) C alled at: 01:45:09 07/26/2023 by: Miguel Angel Baldwin. ADRIA BECKFORD (RN) (PCU) Results read back by same. Please Note: New Test Units and Gender Specific Reference Ranges. For more information see Policy Stat Procedure [place] High Sensitivity Troponin (TNIH) and attachments. Review by pathologistOrdered By: Melecio Torrez on 07-26-2023 Pathologist review Fitz (Unsp spec) [Interp] Reviewed [facility] Comment on above: Previous reported re sult: Anna owens Edited by: RGOOD on 07/26/23:1426Neutrophilic leukocytosis.Clinical correlation suggested.Dereck Nunn D.O. 07/26/23 AMENDED REPORT 07/26/231425 PATH REV previously reported as: Anna owens Serum or plasma albumin yamil urement (mass/volume)Ordered By: Melecio Torrez on 07-26-2023 Albumin [Mass/Vol] 3.2 g/dL 3.2-5.0 [facility] Thin prep Papanicolaou smear with manual screeningOrdered By: Melecio Torrez on 07-26-2023 Thin prep Papanicolaou smear with manual screening 22 U/L 15-37 [facility] Absolute lymphocyte countOrd ered By: Valentin Ceballos on 07-25-2023 Lymphocytes Auto (Unsp spec) [#/Vol] 1.03 10*3/uL 0.83-4.51 [facility] Basophil percentageOrdered B y: Valentin Ceballos on 07-25-2023 Basophils/100 WBC (Bld) 0.5 % 0-1 [facility] Chloride [Moles/Vol] 111 mmol/L 98-107 [facility] Eosinophils/100 WBC (Bld) 0.1 % 0-5 [facility] Glucose [Mass/Vol] 146 mg/dL 74-106 [facility] Comment on above: Fasting Glucose resu lt greater than or equal to 126 mg/dL suggests DIABETES MELLITUS per A.D.A. criteria. Neutrophils (Bld) [#/Vol] 16.7 10*3/uL 2.0-7.7 [facility] Neutrophils/100 WBC (Bld) 88.1 % 47-70 [facility] Potassium [Moles/Vol] 3.7 mmol/L 3.5-5.1 [facility] Sodium [Moles/Vol] 142 mmol/L 136-145 [facility] WBC (Bld) [#/Vol] 19.0 10*3/uL 4.4-11.0 [facility] Blood erythrocytes count (nu mber/volume)Ordered By: Valentin Ceballos on 07-25-2023 RBC (Bld) [#/Vol] 4.88 10*6/uL 4.2-5.4 [facility] Blood hemoglobin measurement (mass/volume)Ordered By: Valentin Ceballos on 07-25-2023 Hemoglobin (Bld) [Mass/Vol] 13.9 g/dL 12.0-15.0 [facility] Blood lymphocytes/100 leukoc ytesOrdered By: Valentin Ceballos on 07-25-2023 Lymphocytes/100 WBC (Bld) 5.4 % 19-41 [facility] Blood monocytes/100 leukocyt esOrdered By: Valentin Ceballos on 07-25-2023 Monocytes/100 WBC (Bld) 5.4 % 0-10 [facility] Blood platelet mean volumeOr dered By: Valentin Ceballos on 07-25-2023 Platelet mean volume (Bld) [Entitic vol] 10.6 fL 6.2-12.0 [facility] Determination of erythrocyte mean corpuscular volume (MCV)Ordered By: Valentin Ceballos on 07-25-2023 MCV (RBC) [Entitic vol] 88.5 fL 81-99 [facility] Hematocrit Auto (Bld) [Volum e fraction]Ordered By: Valentin Ceballos on 07-25-2023 Hematocrit (Bld) [Volume fraction] 43.2 % 37-47 [facility] Laboratory - Chemistry and C hemistry - challengeOrdered By: Valentin Ceballos on 07-25-2023 CO2 [Moles/Vol] 21.0 mmol/L 21.0-32.0 [facility] Natriuretic peptide B (Bld) [Mass/Vol] 383.4 pg/mL 0-100 [facility] Urea nitrogen/Creatinine [Mass ratio] 16.3 mg/mg 10-20 [facility] Laboratory - Hematology and Cell countsOrdered By: Valentin Ceballos on 07-25-2023 Erythrocyte distribution width (RBC) [Entitic vol] 45.2 fL 35.1-43.9 [facility] Erythrocyte distribution width (RBC) [Ratio] 14.1 % 11.6-14.6 [facility] Immature granulocytes/100 WBC (Bld) 0.500 % 0.0-0.9 [facility] Comment on above: IG% - Immature Granu locytes (promyelocytes, myelocytes and metamyelocytes) > 1% indicates that a LEFT SHIFT is Present. MCH (RBC) [Entitic mass] 28.5 pg 27.0-32.0 [facility] Nucleated RBC/100 WBC (Bld) [Ratio] 0 % 0-5 [facility] MCHC Auto (RBC) [Mass/Vol]Or dered By: Valentin Ceballos on 07-25-2023 MCHC (RBC) [Mass/Vol] 32.2 g/dL 32-36 [facility] No Panel InformationOrdered By: Valetnin Ceballos on 07-25-2023 Troponin I High Sensitivity 2328 pg/mL 3.0-54.0 [facility] Comment on above: Critical Result(s) C alled at: 21:09:57 07/25/2023 by: Dary Becerra to Kaye Baldwin. Results read back by same. Please Note: New Test Units and Gender Specific Reference Ranges. For more information see Policy Stat Procedure [place] High Sensitivity Troponin (TNIH) and attachments. Estimated Creatinine Clearance Calc 29.36 ml/min [facility] Estimated GFR (MDRD) Amer 47 mL/min >60 [facility] Comment on above: GFR Calc Estimated GFR (MDRD) Non-Af Amer 39 mL/min >60 [facility] Comment on above: Non- GFR Calc Platelets bldOrdered By: Jzoef Ceballos on 07-25-2023 Platelets (Bld) [#/Vol] 429 10*3/uL 150-450 [facility] Serum or plasma calcium yamil urement (mass/volume)Ordered By: Valentin Ceballos on 07-25-2023 Calcium [Mass/Vol] 9.3 mg/dL 8.5-10.1 [facility] Serum or plasma creatinine m easurement (mass/volume)Ordered By: Valentin Ceballos on 07-25-2023 Creatinine [Mass/Vol] 1.41 mg/dL 0.55-1.02 [facility] Comment on above: The validity of the calculated GFR & GFRAA in patients over 70 years has not been determined. Clinical correlation is essential. Serum or plasma urea nitroge n measurement (mass/volume)Ordered By: Valentin Ceballos on 07-25-2023 Urea nitrogen [Mass/Vol] 23 mg/dL 7-18 [facility] Thin prep Papanicolaou smear with manual screeningOrdered By: Valentin Ceballos on 07-25-2023 Thin prep Papanicolaou smear with manual screening 01-14 [facility] Culture, urineOrdered By: Edith Hargrove on 06-05-2023 Bacteria identified Cx Nom (U) Escherichia coli [facility] Vital Signs Date Time Vital Sign Value Performing Clinician Faci lity 05-17-2025 09:17-0400 Body temperature 98.2 [degF] Dr. Phuc Barker MD Work Phone: [facility] 05-17-2025 09:17-0400 Body weight 74.[address] Phuc Barker MD Work Phone: [facility] 05-17-2025 09:17-0400 Diastolic blood pressure 74 mm[Hg] Dr. Phuc Barker MD Work Phone: [facility] 05-17-2025 09:17-0400 Heart rate 75 /min Dr. Phuc Barker MD Work Phone: [facility] 05-17-2025 09:17-0400 Respiratory rate 17 /min Dr. Phuc Barker MD Work Phone: [facility] 05-17-2025 09:17-0400 SaO2% (BldA) [Mass fraction] 96 % Dr. Phuc Barker MD Work Phone: [facility] 05-17-2025 09:17-0400 Systolic blood pressure 126 mm[Hg] Dr. Phuc Barker MD Work Phone: [facility] 04-20-2025 13:06-0400 Body height 156.2 cm Sultana Garcia Work Phone: [facility] 04-20-2025 13:06-0400 Body mass index (BMI) [Ratio] 29.37 kg/m2 Sultana Garcia Work Phone: [facility] 04-20-2025 13:06-0400 Body temperature 97.9 [degF] Sultana Garcia Work Phone: [facility] 04-20-2025 13:06-0400 Body weight 71.67 kg Sultana Garcia Work Phone: [facility] 04-20-2025 13:06-0400 Diastolic blood pressure 78 mm[Hg] Sultana Garcia Work Phone: [facility] 04-20-2025 13:06-0400 Heart rate 67 /min Sultana Garcia Work Phone: [facility] 04-20-2025 13:06-0400 SaO2% (BldA) [Mass fraction] 95 % Sultana Garcia Work Phone: [facility] 04-20-2025 13:06-0400 Systolic blood pressure 123 mm[Hg] Sultana Garcia Work Phone: [facility] 03-23-2024 14:15-0400 Heart rate 69 /min Casimiro Torrez MD Work Phone: [facility] 03-23-2024 14:15-0400 Respiratory rate 17 /min Casimiro Torrez MD Work Phone: [facility] 03-23-2024 14:15-0400 SaO2% (BldA) [Mass fraction] 98 % Casimiro Torrez MD Work Phone: [facility] 03-23-2024 14:05-0400 Body temperature 97.2 [degF] Casimiro Torrez MD Work Phone: [facility] 03-23-2024 14:05-0400 Diastolic blood pressure 53 mm[Hg] Casimiro Torrez MD Work Phone: [facility] 03-23-2024 14:05-0400 Systolic blood pressure 100 mm[Hg] Casimiro Torrez MD Work Phone: [facility] 12-03-2023 07:53-0400 Heart rate 55 /min Dr. Awa Hargrove Work Phone: [facility] 12-03-2023 07:50-0400 Body temperature 98.2 [degF] Dr. Awa Hargrove Work Phone: [facility] 12-03-2023 07:50-0400 Diastolic blood pressure 44 mm[Hg] Dr. Awa Hargrove Work Phone: [facility] 12-03-2023 07:50-0400 Respiratory rate 16 /min Dr. Awa Hargrove Work Phone: [facility] 12-03-2023 07:50-0400 SaO2% (BldA) [Mass fraction] 96 % Dr. Awa Hargrove Work Phone: [facility] 12-03-2023 07:50-0400 Systolic blood pressure 105 mm[Hg] Dr. Awa Hargrove Work Phone: [facility] 12-02-2023 08:56-0400 Body height 154.[address] Awa Hargrove Work Phone: [facility] 12-02-2023 08:56-0400 Body mass index (BMI) [Ratio] 30.8 kg/m2 Dr. Awa Hargrove Work Phone: [facility] 12-02-2023 08:56-0400 Body weight 74.[address] Awa Hargrove Work Phone: [facility] 12-01-2023 14:15-0400 Body temperature 98 [degF] Dr. Awa Hargrove Work Phone: [facility] 12-01-2023 14:15-0400 Diastolic blood pressure 76 mm[Hg] Dr. Awa Hargrove Work Phone: [facility] 12-01-2023 14:15-0400 Heart rate 48 /min Dr. Awa Hargrove Work Phone: [facility] 12-01-2023 14:15-0400 Respiratory rate 14 /min Dr. Awa Hargrove Work Phone: [facility] 12-01-2023 14:15-0400 SaO2% (BldA) [Mass fraction] 98 % Dr. Awa Hargrove Work Phone: [facility] 12-01-2023 14:15-0400 Systolic blood pressure 128 mm[Hg] Dr. Awa Hargrove Work Phone: [facility] 12-01-2023 10:07-0400 Body height 154.[address] Awa Hargrove Work Phone: [facility] 12-01-2023 10:07-0400 Body mass index (BMI) [Ratio] 30.8 kg/m2 Dr. Awa Hargrove Work Phone: [facility] 12-01-2023 10:07-0400 Body weight 74.[address] Awa Hargrove Work Phone: [facility] 07-27-2023 12:39-0500 Body temperature 97.8 [degF] Dr. Awa Hargrove Work Phone: [facility] 07-27-2023 12:39-0500 Diastolic blood pressure 85 mm[Hg] Dr. Awa Hargrove Work Phone: [facility] 07-27-2023 12:39-0500 Heart rate 76 /min Dr. Awa Hargrove Work Phone: [facility] 07-27-2023 12:39-0500 Respiratory rate 16 /min Dr. Awa Hargrove Work Phone: [facility] 07-27-2023 12:39-0500 SaO2% (BldA) [Mass fraction] 95 % Dr. Awa Hargrove Work Phone: [facility] 07-27-2023 12:39-0500 Systolic blood pressure 143 mm[Hg] Dr. Awa Hargrove Work Phone: [facility] 07-25-2023 22:10-0500 Body height 157.[address] Awa Hargrove Work Phone: [facility] 07-25-2023 22:10-0500 Body mass index (BMI) [Ratio] 28.3 kg/m2 Dr. Awa Hargrove Work Phone: [facility] 07-25-2023 22:10-0500 Body weight 70.[address] Awa Hargrove Work Phone: [facility] 07-25-2023 21:53-0500 Body temperature 98.2 [degF] [facility] 07-25-2023 21:53-0500 Diastolic blood pressure 92 mm[Hg] [facility] 07-25-2023 21:53-0500 Heart rate 61 /min [facility] 07-25-2023 21:53-0500 Respiratory rate 20 /min [facility] 07-25-2023 21:53-0500 SaO2% (BldA) [Mass fraction] 96 % [facility] 07-25-2023 21:53-0500 Systolic blood pressure 182 mm[Hg] [facility] 07-25-2023 17:02-0500 Body height 157.48 cm [facility] 07-25-2023 17:02-0500 Body mass index (BMI) [Ratio] 29.5 kg/m2 [facility] 07-25-2023 17:02-0500 Body weight 73.11 kg [facility] Encounters Encounter Date Encounter Type Care Provider Facility Start: 07-21-2025 ambulatory Phuc Barker Facility:[facility] Start: 07-12-2025 ambulatory Phuc Barker Facility:[facility] Start: 06-29-2025 ambulatory Phuc Barker Facility:[facility] Start: 06-03-2025 End: 06-03-2025 ambulatory Phuc Barker Facility:[facility] Start: 06-01-2025 End: 06-01-2025 ambulatory Phuc Barker Facility:[facility] Start: 05-17-2025 End: 05-17-[address] Phuc Barker MD Work Phone: [facility] Start: 05-17-2025 End: 05-17-[address] Giovanny Brady MD -[facility] Work Phone: Start: 05-17-2025 End: 05-17-[address] Giovanny Brady MD -[facility] Work Phone: Start: 05-17-2025 End: 05-17-[address] Phuc Barker MD Work Phone: -[facility] Start: 05-17-2025 End: 05-17-2025 ambulatory Phuc Barker Facility:[facility] Start: 05-14-2025 End: 05-14-2025 ambulatory [facility] Ambulatory Start: 05-04-2025 ambulatory Phuc Barker Facility:[facility] Start: 05-04-[address] Ebonie Chang MD -[facility] Start: 04-29-2025 End: 04-29-2025 Telephone encounter Sultana Garcia Work Phone: Hematology/Oncology Start: 04-22-2025 End: 04-22-2025 Telephone encounter Sultana Garcia Work Phone: Hematology/Oncology Comment on above: Electronic Communica tion Start: 04-20-2025 End: 04-20-2025 Patient encounter procedure Sultana Garcia Work Phone: Hematology/Oncology Start: 04-20-2025 End: 04-20-2025 ambulatory Sultana Garcia Work Phone: Hematology/Oncology Comment on above: Anemia, unspecified type (Primary Dx) Start: 04-06-[address] Devendra delacruz MD -[facility] Start: 04-06-2025 End: 04-06-2025 ambulatory Devendra MCCLELLAND Facility:[facility] Start: 03-30-[address] Devendra delacruz MD -[facility] Start: 03-30-2025 End: 03-30-2025 ambulatory Phuc Barker Facility:[facility] Start: 02-12-2025 ambulatory Phuc Barker Facility:[facility] Start: 02-12-[address] Devendra delacruz MD -[facility] Start: 01-13-2025 End: 01-13-[address] Phuc Barker MD Work Phone: [facility] Work Phone: Start: 01-13-2025 End: 01-13-[address] Johana Landrum MD -[facility] Start: 01-13-2025 End: 01-13-2025 ambulatory Phuc Barker Facility:[facility] Start: 12-02-2024 End: 12-02-[address] Johana Landrum MD -[facility] Start: 12-02-[address] Johana Landrum MD -[facility] Start: 12-02-2024 End: 12-02-2024 ambulatory Johana MCCLELLAND Facility:[facility] Start: 11-30-2024 End: 11-30-[address] Phuc Barker MD Work Phone: [facility] Work Phone: Start: 11-30-2024 End: 11-30-[address] Johana Landrum MD -[facility] Start: 11-30-2024 End: 11-30-2024 ambulatory Johana MCCLELLAND Facility:[facility] Start: 11-12-2024 End: 11-12-2024 ambulatory [facility] Ambulatory Start: 09-21-2024 End: 09-21-[address] Johana Landrum MD [facility] Start: 09-21-2024 End: 09-21-2024 ambulatory Johana MCCLELLAND Facility:[facility] Start: 08-31-2024 End: 08-31-[address] Johana Landrum MD [facility] Start: 08-31-2024 End: 08-31-2024 ambulatory Johana MCCLELLAND Facility:[facility] Start: 08-27-2024 End: 08-27-2024 Departed Referred [facility] -[facility] Start: 08-27-2024 End: 08-27-2024 ambulatory [facility] Facility:[facility] Start: 07-24-2024 End: 07-24-2024 Emergency department patient visit Phuc Barker Facility:[facility] Start: 07-16-2024 ambulatory Phuc Barker Facility:[facility] Start: 07-16-2024 ambulatory Hawa L Luke Facility :[facility] Start: 07-16-2024 End: 07-22-2024 Evaluation and management of inpatient Phuc Barker Facility:[facility] Start: 06-22-2024 End: 06-22-2024 ambulatory Renita R 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 Edith Hargrove Work Phone: [facility] Work Phone: Start: 12-03-2023 Non-patient / Non-visit Dr. Edith Hargrove Work Phone: [facility] Start: 12-02-2023 Non-patient / Non-visit Dr. Edith Hargrove Work Phone: [facility] Work Phone: Start: 12-02-2023 Non-patient / Non-visit Dr. Edith Hargrove Work Phone: [facility] Start: 12-01-2023 End: 12-03-2023 Evaluation and management of inpatient Dr. Awa Hargrove Work Phone: [facility]-Medical Surgical 3 Work Phone: Start: 12-01-2023 Non-patient / Non-visit Dr. Edith Hargrove Work Phone: [facility] Work Phone: Start: 10-25-2023 End: 10-25-[address] Awa Hargrove Work Phone: [facility]-Speech Therapy Work Phone: Start: 09-16-2023 End: 09-16-[address] wAa Hargrove Work Phone: [facility] Work Phone: Start: 09-16-2023 End: 09-16-[address] Awa Hargorve Work Phone: [facility]-Radiology, [facility] Work Phone: Start: 07-29-2023 Non-patient / Non-visit Dr. Edith Hargrove Work Phone: [facility] Start: 07-27-2023 Non-patient / Non-visit Dr. Edith Hargrove Work Phone: [facility] Work Phone: Start: 07-26-2023 Non-patient / Non-visit Dr. Edith Hargrove Work Phone: [facility] Start: 07-26-2023 Non-patient / Non-visit Dr. Edith Hargrove Work Phone: [facility] Phys[facility] Work Phone: Start: 07-25-2023 End: 07-25-2023 Non-patient / Non-visit Dr. Awa Hargrove Work Phone: [facility] Work Phone: Start: 07-25-2023 End: 07-27-2023 Evaluation and management of inpatient [facility]-Progressive Care Unit Work Phone: Start: 06-05-2023 End: 06-05-2023 Patient encounter procedure [facility]-Laboratory, Specimen Work Phone: Start: 10-20-2021 End: 10-20-2021 Discharged Recurring [facility]-Physical Therapy Procedures Date Procedure Procedure Detail Performing Clinician Start: 06-01-[address] Phuc Barker MD Work Phone: Start: 05-17-[address] Phuc Barker MD Work Phone: Comment on above: Performed at: [facility] [id number] Director: Rk Petty MD, Phone: [phone] at: [facility] [address] [id number] Director: Hussein Aguilar PhD, Phone: [phone] Start: 05-17-2025 Antibody to centromere measurement Dr. El Barker MD Work Phone: Comment on above: Test not performed Start: 05-17-2025 Antibody to extractable nuclear antigen measurement Dr. Phuc Barker MD Work Phone: Comment on above: Test not performed Start: 05-17-2025 Antibody to TAJ-[address] Phuc golden MD Work Phone: [...] Phuc dotson MD Work Phone: Start: 05-17-[address] antibody [address] Phuc rae MD Work [...] RSV Vaccine (1 - 1-dose 75+ series) [facility] Start: 04-20-2028 Diabetes Screening Diabetes Screening [facility] Start: 08-27-2027 Screening for malignant neoplasm of colon [facility] Start: 06-22-2027 Diabetes Screening Diabetes Screening [facility] Start: 06-20-2027 Diabetes Screening Diabetes Screening [facility] Start: 03-02-2027 Diabetes Screening Diabetes Screening [facility] Start: 07-30-2025 End: 10-29-2025 CBC W Auto Differential panel - Blood COMPLETE BLOOD COUNT AND DIFFERENTIAL Lab STAT 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, not on chronic dialysis (HCC) Expected: 07/30/2025 (Approximate), Expires: 10/29/2025 [facility] Work Phone: Comment on above: Expected: 07/30/2025 (Approximate), Expi res: 10/29/2025 Start: 06-15-2025 Hepatitis B Vaccine (3 of 3 - Risk Dialysis Recombivax 3-dose series) Hepatitis B Vaccine (3 of 3 - Risk Dialysis Recombivax 3-dose series) [facility] Start: 06-01-2025 Registered Referred Registered [facility] Start: 05-18-2025 Electroencephalogram [facility] Start: 05-03-2025 Influenza vaccination Influenza Vaccine (#1) [facility] Start: 03-03-2025 Lipid panel Lipid Screening [facility] Start: 09-02-2024 Advance Directive Discussion Advance Directive Discussion [facility] Start: 09-02-2024 Medicare Advantage Annual Wellness Visit Medicare Advantage Annual Wellness Visit [facility] Start: 07-23-2024 End: 07-23-2024 Patient encounter procedure 07/23/2024 1:30 PM EST Office Visit [facility] [address] [place] [id number] Sosa Salas APRN.ACID CONDITIONING WORKER [address] [place] [address] SDH (subdural hematoma) (HCC) [S06.5XAA [facility] Comment on above: SDH (subdural hematoma) (HCC) [S06.5XAA Start: 07-20-2024 End: 07-20-2024 Patient encounter procedure 07/20/2024 11:00 AM EST Appointment [facility] [address] [place] [phone] SDH (subdural hematoma) (HCC) [S06.5XAA [facility] Comment on above: SDH (subdural hematoma) (HCC) [S06.5XAA Start: 05-03-2024 Covid-19 Vaccine ( season) Covid-19 Vaccine ( season) [facility] Start: 05-03-2024 Influenza vaccination Influenza Vaccine (#1) [facility] Start: 04-13-2024 End: 04-13-2024 Admission to same day surgery center 04/13/2024 11:30 AM EDT [facility] SURGERY DEPARTMENT [address] [facility] 3rd Floor [place], [place] [id number] Jules Alvarez MD [address] [place], [place] [id number] Go Over EGD/ CT Scan 03/06 [facility] Comment on above: Go Over EGD/ CT Scan 03/06 Start: 03-30-2024 End: 03-30-2024 Admission to same day surgery [facility] 03/30/2024 11:00 AM EDT [facility] SURGERY DEPARTMENT [address] [facility] 3rd [place], [place] [id number] Jules Alvarez MD [address] [place], [place] [id number] Go Over EGD/ CT Scan 03/06 [facility] Comment on above: Go Over EGD/ CT Scan 03/06 Start: 03-23-2024 End: 03-23-2024 Patient encounter procedure 03/23/2024 8:00 AM EDT Appointment [facility] [address] [place] [address] Jules Alvarez MD [address] [place], [place] [id number] [facility] Start: 12-05-2023 Blood chemistry [facility] Start: 12-04-2023 Blood chemistry [facility] Start: 12-03-2023 Patient discharge [facility] Start: 12-02-2023 Electrocardiographic monitoring [facility] Start: 12-01-2023 Ambulation without limitation [facility] Start: 12-01-2023 Assessment of risk of venous thromboembolism [facility] Start: 12-01-2023 Documentation procedure [facility] Start: 12-01-2023 Insertion of catheter into peripheral vein [facility] Start: 12-01-2023 Providing care according to standard [facility] Start: 12-01-2023 Referral to general surgeon [facility] Start: 12-01-2023 [facility] Start: 12-01-2023 Verification routine [facility] Start: 12-01-2023 Admission procedure [facility] Start: 12-01-2023 Hospital admission, emergency, from emergency room, medical nature [facility] Start: 09-02-2023 Advance Directive Discussion Advance Directive Discussion [facility] Start: 09-02-2023 Behavioral Health Screening Behavioral Health Screening [facility] Start: 07-29-2023 Patient referral [facility] Work Phone: Start: 07-27-2023 Patient discharge [facility] Start: 07-26-2023 Notification of physician [facility] Start: 07-26-2023 Patient education [facility] Start: 07-26-2023 Provision of activity privileges [facility] Start: 07-26-2023 Pulse taking [facility] Start: 07-26-2023 Taking patient vital signs [facility] Start: 07-26-2023 Wound care [facility] Start: 07-26-2023 [facility] Start: 07-26-2023 Ultrasonography of breast Breast Limited Unilateral [facility] Start: 07-26-2023 US Breast limited [facility] Start: 07-26-2023 Referral to clinical cytogenetics director [facility] Start: 07-26-2023 Admission procedure [facility] Start: 07-25-2023 End: 07-26-2023 Measuring intake and output [facility] Start: 07-25-2023 End: 07-26-2023 Providing care according to standard [facility] Start: 07-25-2023 Application of intermittent pneumatic compression device [facility] Start: 07-25-2023 Oxygen therapy [facility] Start: 07-25-2023 Tobacco use cessation education [facility] Start: 07-25-2023 Provision of activity privileges [facility] Start: 07-25-2023 Assessment of risk of venous thromboembolism [facility] Start: 07-25-2023 End: 07-26-2023 Insertion of catheter into peripheral vein [facility] Start: 07-25-2023 End: 07-25-2023 [facility] Start: 07-25-2023 Following clinical pathway protocol [facility] Start: 07-25-2023 Partial thromboplastin time, activated [facility] Start: 07-25-2023 Prothrombin time [facility] Start: 07-25-2023 Hospital admission, emergency, from emergency room, medical nature [facility] Start: 07-25-2023 End: 07-26-2023 [facility] Start: 05-03-2023 Covid-19 Vaccine ( season) Covid-19 Vaccine ( season) [facility] Start: 03-03-2021 Hepatitis B surface antibody level LDL Cholesterol [facility] Start: 2018 Pneumococcal Vaccine: 65+ (1 of 1 - PCV) Pneumococcal Vaccine: 65+ (1 of 1 - PCV) [facility] Start: 2018 Screening for osteoporosis Bone Density Screening [facility] Start: 2013 RSV Vaccine (1 - 1-dose 60+ series) RSV Vaccine (1 - 1-dose 60+ series) [facility] Start: 2003 Pneumococcal Vaccine: 50+ (1 of 1 - PCV) Pneumococcal Vaccine: 50+ (1 of 1 - PCV) [facility] Start: 2003 Shingrix Vaccine (1 of 2) Shingrix Vaccine (1 of 2) [facility] Start: 1998 Screening for malignant neoplasm of colon [facility] Start: 1993 Screening for malignant neoplasm of breast Mammogram Screening [facility] Start: 1972 Urine microalbumin profile DTaP,Tdap,Td Vaccine (1 - Tdap) [facility] Start: 1971 Annual PCP Team Chronic Disease Visit Annual PCP Team Chronic Disease Visit [facility] Start: 1971 Anxiety Screening Anxiety Screening [facility] Start: 1971 BP Controlled (<130/80) BP Controlled (<130/80) [facility] Start: 1971 Depression Screening Depression Screening [facility] Start: 1971 Hepatitis C screening Hepatitis C Screening [facility] Start: 1959 Pneumococcal Vaccine: 65+ (1 of 2 - PCV) Pneumococcal Vaccine: 65+ (1 of 2 - PCV) [facility] Blood ammonia measurement [facility] CT Abdomen and Pelvi s W contrast IV CT ABD/PEL W IVCON Radiology Routine Duodenal ulcer with hemorrhage 03/06/2024 12:15 PM EDT [facility] Work Phone: End: 07-20-2025 CT Head WO contrast CT BRAIN WO IVCON Radiology Routine SDH (subdural hematoma) (HCC) 1 Occurrences starting 06/20/2024 until 07/20/2025 [facility] Work Phone: Comment on above: 1 Occurrences starting 06/20/2024 until 07/20/2025 Cytoplasmic ANCA Screen [facility] Erythrocyte mean cor puscular volume determination [facility] Erythrocyte mean cor puscular volume determination [facility] Erythrocyte sediment ation rate [facility] Ferritin [Mass/volum e] in Serum or Plasma [facility] Folic acid measurement, RBC [facility] Hematocrit [Volume F raction] of Blood [facility] Hematocrit [Volume F raction] of Blood [facility] Hemoglobin [Mass/vol ume] in Blood [facility] Hemoglobin [Mass/vol ume] in Blood [facility] INR in Blood by Coag ulation assay [facility] Iron [Mass/mass] in Unspecified specimen [facility] Leukocytes [#/volume ] in Blood [facility] Leukocytes [#/volume ] in Blood [facility] Magnesium measurement [facility] Mean corpuscular hem oglobin concentration determination [facility] Mean corpuscular hem oglobin concentration determination [facility] Mean corpuscular hem oglobin determination [facility] Mean corpuscular hem oglobin determination [facility] MR Brain WO contrast [facility] MR Cervical spine [facility] Neutrophil count [facility] Neutrophil count [facility] Neutrophil percent differential count [facility] Neutrophil percent differential count [facility] Patient referral [facility] Work Phone: Platelets [#/volume] in Blood [facility] Platelets [#/volume] in Blood [facility] Red blood cell count [facility] Red blood cell count [facility] Red cell distributio n width determination [facility] Red cell distributio n width determination [facility] SURGICAL PATHOLOGY SURGICAL PATH OLOGY Lab Routine Duodenal ulcer with hemorrhage Release Upon Ordering for 1 Occurrences starting 03/23/2024 [facility] Work Phone: Comment on above: Release Upon Ordering for 1 Occurrences starting 03/23/2024 Thiamine measurement [facility] Thyroid stimulating hormone measurement [facility] Vitamin B12 measurement [facility] Vitamin B6 measurement [facility] Vitamin D, 1,25-dihy droxy measurement [facility] Immunizations Immunization Date Immunization Notes Care Provider Anni nicolas 06-15-2024 Hepatitis B vaccine (recombinant), CpG adjuvanted Becca Garcia PA-C Work Phone: [facility] 05-11-2024 Hepatitis B vaccine (recombinant), CpG adjuvanted Becca Garcia PA-C Work Phone: [facility] Payers Date Payer Category Payer Unknown [id number] 2024 Medicare (Managed Care) TANA MONROY [facility] [id number] 2024 Medicaid [id number] 2024 Self-pay [id number] 2023 Unknown [employer]M [employer] CROS S AND BLUE SHIELD ANTHEM MEDICARE ADVANTAGE HMO [id number] 2023-Present [phone] [address] [place] [address] HMO [id number] 2023 Medicare [id number] 1955 Unknown [id number] 2.16.840.1.330235.3.579.2. 1244 1955 Unknown [id number] 2.16840.1.595974.3.579.2. 1244 Medicare [id number] Unknown [id number] Unknown [id number] 2.16.840.1.290314.3.579.2. 462 Unknown [id number] 2.16.840.1.097859.3.579.2. 462 Unknown [id number] 2.16.840.1.592815.3.579.2. 462 Unknown [id number] 2.16.840.1.681470.3.579.2. 462 Unknown [id number] 2.16.840.1.725413.3.579.2. 462 Unknown [id number] 2.16.840.1.646584.3.579.2. 462 Unknown [id number] 2.16.840.1.906204.3.579.2. 462 Unknown [id number] 2.16.840.1.733423.3.579.2. 462 Unknown [id number] 2.16.840.1.574962.3.579.2. 462 Unknown [id number] 2.16.840.1.036665.3.579.2. 462 Unknown [id number] 2.16.840.1.582714.3.579.2. 462 Unknown [id number] 2.16.840.1.970049.3.579.2. 462 Unknown [id number] 2.16.840.1.316538.3.579.2. 462 Unknown [id number] 2.840.1.417112.3.579.2. 462 Unknown [id number] 2.840.1.917716.3.579.2. 462 Unknown [id number] 2.840.1.622290.3.579.2. 462 Unknown [id number] 2.840.1.503368.3.579.2. 462 Unknown [id number] 2.840.1.473726.3.579.2. 462 Unknown [id number] 2.840.1.983513.3.579.2. 462 Unknown [id number] 2.840.1.621673.3.579.2. 462 Unknown [id number] 2.840.1.268808.3.579.2. 462 Unknown [id number] 2.840.1.848788.3.579.2. 462 Unknown [id number] 2.840.1.277421.3.579.2. 462 Unknown [id number] 2.840.1.823146.3.579.2. 462 Unknown [id number] 2.840.1.339901.3.579.2. 462 Unknown [id number] 2.840.1.524876.3.579.2. 462 Unknown [id number] 2.840.1.826806.3.579.2. 462 Social History Date Type Detail Facility Start: 09-22-2021 End: 12-01-2023 Tobacco smoking status NHIS Unknown if ever smoked [facility] Start: 1955 Sex Assigned At Female [facility] Start: 02-19-2024 End: 07-24-2024 Tobacco smoking status NHIS Never smoked tobacco [facility] Start: 02-19-2024 Tobacco use and exposure Smokeless tobacco non-user [facility] Start: 02-19-2024 End: 04-20-2025 Alcohol intake Ex-drinker (finding) [facility] Start: 02-19-2024 End: 02-25-2024 History of Social function [facility] Start: 02-19-2024 End: 02-25-2024 Tobacco use panel [facility] Start: 12-18-2023 National Score (1-100), lower number is lower risk 96 [facility] Start: 1955 Sex Assigned At Not on file [facility] Start: 12-15-2024 Sex Female (finding) [facility] NEGATED: Highlighted row [facility] Goals Date Patient Goal Desired Activity /State Functional Status Date Assessment Result Facility 06-24-2024 Are you deaf, or do you have serious difficulty hearing No 06/24/2024 3:21 PM Marisela Thompson RN No [facility] 06-24-2024 Are you blind, or do you have serious difficulty seeing, even when wearing glasses No 06/24/2024 3:21 PM Marisela Thompson RN No [facility] 06-24-2024 Do you have serious difficulty walking or climbing stairs Yes 06/24/2024 3:21 PM Marisela Thompson RN Yes [facility] 06-24-2024 Do you have difficul ty dressing or bathing Yes 06/24/2024 3:21 PM Marisela Thompson RN Yes [facility] 06-24-2024 Because of a physica l, mental, or emotional condition, do you have difficulty doing errands alone such as visiting a physician's office or shopping Yes 06/24/2024 3:21 PM Marisela Thompson RN Yes [facility] 12-03-2023 Functional status Bathroom Privilege [facility] Work Phone: 07-27-2023 Functional status Ambulates;Bath room Privilege [facility] Work Phone: Mental Status Date Assessment Result Facility 06-24-2024 Because of a physica l, mental, or emotional condition, do you have serious difficulty concentrating, remembering, or making decisions No 06/24/2024 3:21 PM EDT Marisela Lamar RN No [facility] 12-02-2023 Cognitive function Voice/Name [facility] Work Phone: 07-27-2023 Cognitive function Awake;Alert;A ppropriate; Follows Commands [facility] Work Phone: 07-27-2023 Cognitive function Voice/Name [facility] Work Phone: 07-25-2023 Cognitive function Voice/Name [facility] Work Phone: Clinical Notes 07-25-2023 to 05-17-2025 Note Date & Type Note Facility 05-17-2025 Evaluation note Diagnosis Onset Date Resolution Abnormal gait acute May 032024 9:05am Anemia acute May 9:05am Dementia acute May 9:05am Neck pain acute May 9:05am Chronic intracranial subdural hematoma chronic May 9:05am [facility] Work Phone: 1(148) 585-103808-28-2025 Telephone encounter Note* Telephone Encounter - Jazzy Arciniega LPN - 04/29/2025 2:51 PM EDT I called and spoke to Hope, patient's nurse at [facility]. Patient is scheduled to see nephrology in early June. She also has a CBC drawn every 28 days; Hope will fax the results in July (3 month CBC). Jazzy Arciniega LPN [facility]08-28-2025 Miscellaneous Notes* Telephone Encounter - Jazzy Arciniega LPN - 04/29/2025 2:51 PM EDT I called and spoke to Hope, patient's nurse at [facility]. Patient is scheduled to see [...] stability. (Orders entered) Pt currently resides in [facility]. I attempted to reach spouse number ivanna busfrancis. No answeron daughter Jeanette's phone (she was present for appt) Case and labs reviewed with Dr Vivas. Sultana Garcia APRN.ACID CONDITIONING WORKER documented in this encounterParkview Health08-28-2025 Telephone encounter Note * Telephone Encounter - [...] stability. (Orders entered) Pt currently resides in [facility]. I attempted to reach spouse number ivanna busy. No answeron daughter Jeanette's phone (she was present for appt) Case and labs reviewed with Dr Vivas. Sultana Garcia APRN.ACID CONDITIONING WORKER [facility]08-21-2025 Telephone encounter Note* Telephone Encounter - Radha Nichols LPN - 04/22/2025 11:06 AM EDT Labs faxed as directed. Radha Nichols LPN [facility]08-21-2025 Miscellaneous Notes* Telephone Encounter - Radha Nichols LPN - 04/22/2025 11:06 AM EDT Labs faxed as directed. Radha Nichols LPN * Telephone Encounter - Yazmin Medel - 04/22/2025 10:24 AM EDT Please fax 04/20 lab results to [facility] at [phone] documented in this encounterPark[facility] Health08-21-2025 Telephone encounter Note * Telephone Encounter - Yazmin Medel - 04/22/2025 10:24 AM EDT Please fax 04/20 lab results to [facility] at [phone] [facility] Work Phone: 1(589) 708-205108-19-2025 Instructions* Patient Instructions* Sultana Garcia - 04/20/2025 2:09 PM EDT Labs today Follow up pending labs for possible IV iron and aranesp injection documented in this encounterParkview Health08-19-2025 NoteHNO ID: [id number] Author: SULTANA GARCIA, ? Service: ? Author [...] daughter Jeanette 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 She is a poor historian, rather tangential. Currently resides in a correction facility since last year. Per chart review [...] daily at bedtime. sodium phosphate,mono-dibasic (FLEET ENEMA CA) 1 suppository by RECTAL route as needed. [...] bedtime. (Patient not taking (more content not included)...[facility]08-19-2025 History of Present illness Narrative* Jose Sultana - 04/20/2025 1:06 PM EDT Progress Note Zahida Beltre 1955 Encounter date: 04/20/2025 HPI: Zahida Beltre is a 69 year old female with extensive PMH of Kidney failure hx of dialysis for about 6 - 8 months, CAD, subdural hematoma, HTN, Chronic anemia. She presents today with her daughter Jeanette 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 She is a poor historian, rather tangential. Currently resides in a correction facility since last year. Per chart review [...] daily at bedtime. sodium phosphate,mono-dibasic (FLEET ENEMA CA) 1 suppository by RECTAL route as needed. [...] as a new anemia referral by her carbon capture power plant operator Dr Marie Anemia, chronic - likely [...] which included preparing to see the patient, [id number]-dh-[id number] patient care, completing clinical documentation, obtaining and/or [...] Drug use: Not Currently documented in this encounterParkview Health11-20-2024 [facility]10-[facility] History of Present illness Narrative* Renita Knott APRN.ACID CONDITIONING WORKER - 06/22/2024 3:43 PM EDT [facility] Outpatient Parenteral Antimicrobial Therapy (OPAT) Start Form Patient Info Patient MRN Patient Name Address Date of [id number] Kary Zacarias [address] [facility] [address] 1955 Start Date 06/22/2024 Physician Group Anna_phi Diagnosis Group Diagnosis Genitourinary: Cystitis Micro-organism IV [...] Treatment Course Kee Singh III, MD Address [address] [place] [address] documented in this encounterParkview Health07-22-2024 History and physical note * Noemy Jaramillo APRN.ACID CONDITIONING WORKER - 03/23/2024 12:25 PM EDT HISTORY AND [...] Hemorrhage Pre-Op Examination Coronary Artery Disease Involving [place] Coronary Artery of [place] Heart Without Angina Pectoris Htn (Hypertension) Mixed Hyperlipidemia Subjective CHIEF COMPLAINT: Preoperative Examination HPI: Patient present to [facility] for the above procedure. Patient here for routine Upper GI Endoscopy screening. Patient had an EGD in December in [place]. This demonstrated an adrenal nodule that was [...] CP and palpitations. +HTN +HLD +hx of CA +CAD GI: See HPI. : Denies dysuria. [...] Continue as prescribed. Coronary artery disease involving [place] coronary artery of [place] heart without angina pectoris Current Assessment & Plan CA in 07/2023. No cardiac stents. Does not follow with cardiology. Managed by PCP. Patient has all medical care in [place]- unable to access any cardiac imaging through [facility] [place] or Care Everywhere. Gastrointestinal Duodenal ulcer with [...] which included preparing to see the patient, [id number]-bj-[id number] patient care, completing clinical documentation, and performing a medically appropriate examination. Instructions Given to Patient: Patient given verbal preop instructions and voices comprehension and compliance. SIGNATURE: Noemy Jaramillo APRN.CNP PATIENT NAME: Kary Haddad DATE: March 23, 2024 TIME: 10:48 AM PAGER/CONTACT #: [facility]07-22-2024 History and physical note* Noemy Jaramillo APRN.CNP [...] Hemorrhage Pre-Op Examination Coronary Artery Disease Involving [place] Coronary Artery of [place] Heart Without Angina Pectoris Htn (Hypertension) Mixed Hyperlipidemia Subjective CHIEF COMPLAINT: Preoperative Examination HPI: Patient present to [facility] for the above procedure. Patient here for routine Upper GI Endoscopy screening. Patient had an EGD in December in [place]. This demonstrated an adrenal nodule that was [...] CP and palpitations. +HTN +HLD +hx of CA +CAD GI: See HPI. : Denies dysuria. [...] Continue as prescribed. Coronary artery disease involving [place] coronary artery of [place] heart without angina pectoris Current Assessment & Plan CA in 07/2023. No cardiac stents. Does not follow with cardiology. Managed by PCP. Patient has all medical care in [place]- unable to access any cardiac imaging through [facility] [place] or Care Everywhere. Gastrointestinal Duodenal ulcer with [...] which included preparing to see the patient, oggi-ra-nwth patient care, completing clinical documentation, and performing a medically appropriate examination. Instructions Given to Patient: Patient given verbal preop instructions and voices comprehension and compliance. SIGNATURE: Noemy Jaramillo APRN.CNP PATIENT NAME: Kary Haddad DATE: March 23, 2024 TIME: 10:48 AM PAGER/CONTACT #: documented in this encounterParkview Health07-05-2024 History of Present illness Narrative* Didi Merrill [...] PATIENT PRESENTS WITH AN IMPLANTABLE OR ATTACHED GATE OPERATOR: No ALLERGIES: Reviewed and unchanged CONTRAST ALLERGY: [...] 2024 TIME: 4:12 PM documented in this encounterParkview Health04-02-2024 Consult note Author Bhaskar Grimes [facility] December 03, 2023 10:02am Note Date/Time December 03, 2023 10:0 2am [facility] Medical Records Department [address] [place] [address] Counseling Note - Pharmacy 12/03/23 1002 MR#: [id number] Acct: [id number] Name: KARY HADDAD Rep #:[id number] : 1955 68 From: Bhaskar Grimes PCP: Dr. Awa Hargrove, DO Status:ADM IN Y Location: MS3 CG397-9 Pharmacy [facility] has performed discharge [...] 12/03/23 12/03/23 1002 <Electronically signed by Bhaskar Grossman r> Date _ Bhaskar Grimes Cosigner Signature (if applicable): Date CC: ~ Signed [facility] Work Phone: 1(637) 992-528904-02-2024 Discharge summary Author Ronald Lowe [facility] December 03, 2023 8:59am Note Date/Time December 03, 2023 8:56 am [facility] Medical Records Department [address] [place] [address] Discharge Summary 12/03/23 0854 MR#: [id number] Acct: [id number] Name: KARY HADDAD Rep #:[id number] : 1955 68 From: Ronald Lowe MD PCP: Dr. Awa Hargrove, DO Status:ADM IN [facility] Prov[facility] Date of Admission: 12/01/23 Date of [...] % (Auto) 57.9, Lymph % (Auto) 26.7, [place] % (Auto) 9.9, Eos % (Auto) 4.4, [...] Self Care Charges/Coding Visit Charges Inpatient E&M: 51085 Disch Hosp >30min 12/03/23 0859 <Electronically signed by Ronald Lowe MD> Cosigner Signature (if applicable): CC: Dr. Ronald Lowe MD; Dr. Awa Hargrove DO~ Signed [facility] Work Phone: 1(430) 195-261404-02-2024 Progress note Author Jules Hudson [facility] December 03, 2023 7:00am Note Date/Time December 03, 2023 7:01 am [facility] Medical Records Department [address] [place] [address] Progress Note - Surgery 12/03/23 0659 MR#: [id number] Acct: [id number] Name: KARY HADDAD Rep #:[id number] : 1955 68 From: Jules pope MD PCP: Dr. Awa Hargrove DO Status:ADM IN Location: [place] [address] Subjective Subjective The patient reported that she [...] % (Auto) 57.9, Lymph % (Auto) 26.7, [place] % (Auto) 9.9, Eos % (Auto) 4.4, [...] to tertiary care. Jules Hudson MD Pager: [facility] [address] [place] [address], [address] [place] [address] Office: 12/03/23 0700 <Electronically signed by Jules Hudson MD> Cosigner Signature (if applicable): CC: ~ Signed [facility] Work Phone: 1(667) 681-448504-01-2024 Progress note Author Ronald Lowe [facility] December 02, 2023 2:56pm Note Date/Time December 02, 2023 9:06 am [facility] Medical Records Department [address] [place] [address] Progress Note - Hospitalist 12/02/23 0901 MR#: [id number] Acct: [id number] Name: KARY HADDAD Rep #:[id number] : 1955 68 From: Ronald Lowe MD PCP: Dr. Awa Hargrove, DO Status:ADM IN [facility] Reason for Visit Reason for Visit: Diagnoses [...] 71.5 H, Lymph % (Auto) 16.6 L, [place] % (Auto) 8.4, Eos % (Auto) 2.2, [...] % (Auto) Cancelled, Lymph % (Auto) Cancelled, [place] % (Auto) Cancelled, Eos % (Auto) Cancelled, [...] Drop Cells Cancelled, Ovalocytes Cancelled, Stomatocytes Cancelled, [place] Bodies Cancelled, [place] Cells Cancelled, Bite Cells Cancelled, Crenated Cell [...] % (Auto) 59.5, Lymph % (Auto) 25.7, [place] % (Auto) 9.6, Eos % (Auto) 3.8, [...] 12:39 EDT Reading Location ID and State: [facility] / [place] , Service support , Chest X-Ray 12/01/23 [...] 50 Minutes Charges/Coding Visit Charges Inpatient E&M: 93905 Subs Hosp L3 12/02/23 1456 <Electronically signed by Ronald Lowe MD> Cosigner Signature (if applicable): CC: ~ Signed [facility] Work Phone: 1(843) 533-677904-01-2024 Progress note Author Jules Hudson [facility] December 02, 2023 11:37am Note Date/Time December 02, 2023 11:3 7am [facility] Medical Records Department [address] [place] [address] Progress Note 12/02/236 MR#: [id number] Acct: [id number] Name: KARY HADDAD Rep #:[id number] : 1955 68 From: Jules pope MD PCP: Dr. Awa Hargrove, DO Status:ADM IN Location: [facility] [id number] Progress Note I performed an EGD on [...] Carafate. Pathology pending. Jules Hudson MD Pager: [facility] [address] [place] [address], [address] [place] [address] Office: 12/02/23 1137 <Electronically signed by Jules Hudson MD> Jules Hudson MD Cosigner Signature (if applicable): CC: ~ Signed [facility] Work Phone: 1(174) 413-421404-01-2024 [facility]04-01-2024 Progress note Author Jules Hudson [facility] December 02, 2023 7:12am Note Date/Time December 02, 2023 7:12 am [facility] Medical Records Department [address] [place] [address] Progress Note - Surgery 12/02/23 0711 MR#: [id number] Acct: [id number] Name: KARY HADDAD Rep #:[id number] : 1955 68 From: Jules pope MD PCP: Dr. Awa Hargrove, DO Status:ADM IN Location: PR3 [id number] Subjective Subjective Patient no complaints overnight and [...] 71.5 H, Lymph % (Auto) 16.6 L, [place] % (Auto) 8.4, Eos % (Auto) 2.2, [...] % (Auto) Cancelled, Lymph % (Auto) Cancelled, [place] % (Auto) Cancelled, Eos % (Auto) Cancelled, [...] Drop Cells Cancelled, Ovalocytes Cancelled, Stomatocytes Cancelled, [place] Bodies Cancelled, [place] Cells Cancelled, Bite Cells [...] % (Auto) 59.5, Lymph % (Auto) 25.7, [place] % (Auto) 9.6, Eos % (Auto) 3.8, [...] the CT scan. Jules Hudson MD Pager: [facility] [address] [place] [address] Outpatient Pavilion, [address] [place] [address] Office: 12/02/2312 <Electronically signed by Jules Hudson MD> Cosigner Signature (if applicable): CC: ~ Signed [facility] Work Phone: 1(987) 562-923103-31-2024 History and physical note Author Phillip Kingsley [facility] December 01, 2023 3:13pm Note Date/Time December 01, 2023 3:[address] [place] [address] Medical Records Department [address] [place] [address] H&P Exam - Hospitalist 12/01/23 1507 MR#: [id number] Acct: [id number] Name: KARY HADDAD Rep #:[id number] : 1955 68 From: Phillip Kingsley DO PCP: Dr. Awa Hargrove DO Status:ADM PING [facility] HPI - General General Date of Admission: [...] plan is for endoscopy on December 01. [facility] Medical History (Updated 12/01/23 @ 15:10 by [...] 71.5 H, Lymph % (Auto) 16.6 L, [place] % (Auto) 8.4, Eos % (Auto) 2.2, [...] with SCDs Charges/Coding Visit Charges Inpatient E&M: 41684 Init Hosp L3 12/01/23 1513 <Electronically signed by Phillip Kingsley DO> Cosigner Signature (if applicable): CC: Dr. Phillip Kingsley DO; Dr. Awa Hargrove DO~ Signed [facility] Work Phone: 1(773) 866-832303-31-2024 Discharge summary Author Raisa Calhoun [facility] December 01, 2023 2:35pm Note Date/Time December 01, 2023 10: 27am [facility] Medical Records Department [address] [place] [address] Emergency Department Summary 12/01/23 MR#: [id number] Acct: [id number] Name: KARY HADDAD Rep #:[id number] : 1955 68 From: Raisa Calhoun MD [...] colonoscopies, 1 of which showed some polyps. [facility] Medical History (Updated 12/01/23 @ 14:24 by [...] 71.5 H Lymph % (Auto) 16.6 L [place] % (Auto) 8.4 Eos % (Auto) 2.2 [...] Duodenal mass Disposition Disposition: Acute Care Hospital [facility] What to do if you have Problems For any increased pain, shortness of breath, bleeding, nausea or vomiting, chestpain, or any unexpected problems, contact your Primary Care Provider. Call [facility] ([phone]) or report to the closest Emergency Room. Call 911 if necessary. 12/01/23 1435 <Electronically signed by Raisa Calhoun MD> Cosigner Signature (if applicable): CC: Dr. Awa Hargrove, DO ~ Signed [facility] Work Phone: 1(778) 876-284603-31-2024 Consult note Author Jules Hudson [facility] December 01, 2023 2:20pm Note Date/Time December 01, 2023 2:2 0pm [facility] Medical Records Department [address] [place] [address] Consultation - Surgical 12/01/23 1416 MR#: [id number] Acct: [id number] Name: KARY HADDAD Rep #:[id number] : 1955 68 From: Jules pope MD PCP: Dr. Awa Hargrove DO Status:REG ER Location: ED Assessment & [...] proceed with procedure. Jules Hudson MD Pager: [facility] [address] [place] [address], [address] [place] [address] Office: HPI Consult Data Date of Consult: 12/01/23 HPI Narrative HPI Narrative: AKRY HADDAD, is a 68 F who presents [...] or vomiting. She denies fevers or chills. [facility] Medical History (Updated 12/01/23 @ 14:18 by [...] 71.5 H, Lymph % (Auto) 16.6 L, [place] % (Auto) 8.4, Eos % (Auto) 2.2, [...] 12:39 EDT Reading Location ID and State: [facility] / [place] , Service support , 12/01/23 1420 <Electronically signed by Jules Hudson MD> Cosigner Signature (if applicable): CC: Dr. Awa Hargrove, DO~ Signed [facility] Work Phone: 1(114) 757-641803-31-2024 Discharge summary Author Raisa Calhoun [facility] December 01, 2023 2:35pm Note Date/Time December 01, 2023 10: 27am [facility] Medical Records Department [address] [place] [address] Emergency Department Summary 12/01/23 MR#: [id number] Acct: [id number] Name: KARY HADDAD Rep #:[id number] : 1955 68 From: Raisa Calhoun MD PCP: Dr. Awa Hargrove, Status:REG ER Location: ED HPI History of [...] colonoscopies, 1 of which showed some polyps. [facility] Medical History (Updated 12/01/23 @ 14:24 by [...] 71.5 H Lymph % (Auto) 16.6 L [place] % (Auto) 8.4 Eos % (Auto) 2.2 [...] Duodenal mass Disposition Disposition: Acute Care Hospital [facility] What to do if you have Problems For any increased pain, shortness of breath, bleeding, nausea or vomiting, chestpain, or any unexpected problems, contact your Primary Care Provider. Call [facility] ([phone]) or report to the closest Emergency Room. Call 911 if necessary. 12/01/23 1421 <Electronically signed by Raisa Calhoun MD> Cosigner Signature (if applicable): CC: Dr. Awa Hargrove, DO ~ Signed [facility] Work Phone: 1(433) 621-963301-15-2024 Procedure [facility] 07-27-2023 Discharge summary Author Ronald Lowe [facility] July 27, 2023 10:37am Note Date/Time July 27, 2023 10:32am [facility] Medical Records Department [address] [place] [address] Discharge Summary 07/27/23 1029 MR#: [id number] Acct: [id number] Name: KARY HADDAD Rep #:[id number] : 1955 68 From: Ronald Lowe MD PCP: Dr. Awa Hargrove, DO Status:ADM IN [facility] Providers Date of Admission: 07/26/23 Date of Discharge: 07/27/23 Primary Care Physician: Dr. Awa Hargrove, DO Consultations 07/26/23 08:00 Consult: Cardiology Routine [...] % (Auto) 65.5, Lymph % (Auto) 19.7, [place] % (Auto) 10.8 H, Eos % (Auto) [...] Shantel at discharge?: Yes Done w/ Acute CA measure.: Yes Documented LVEF (%): 50 Discharge [...] Self Care Charges/Coding Visit Charges Inpatient E&M: 90328 Disch Hosp >30min 07/27/23 1037 <Electronically signed by Ronald Lowe MD> Cosigner Signature (if applicable): CC: Dr. Ronald Lowe MD; Dr. Awa Hargrove DO~ Signed [facility] Work Phone: 1(267) 946-304811-24-2023 Progress note Author Ronald Lowe [facility] July 26, 2023 1:39pm Note Date/Time July 26, 2023 8:07am [facility] Medical Records Department [address] [place] [address] Progress Note - Hospitalist 07/26/23 0759 MR#: [id number] Acct: [id number] Name: KARY HADDAD Rep #:[id number] : 1955 68 From: Ronald Lowe MD PCP: Dr. Awa Hargrove DO Status:ADM IN Location: [place] [address] Reason for Visit Reason for Visit: Diagnoses [...] 88.1 H, Lymph % (Auto) 5.4 L, [place] % (Auto) 5.4, Eos % (Auto) 0.1, [...] (Auto) 69.2, Lymph % (Auto) 16.6 L, [place] % (Auto) 12.2 H, Eos % (Auto) 0.7, Baso % (Auto) 0.7, Absolute Neuts (auto)10.1 H, Absolute Lymphs (auto) 2.42, Nucleated RBC % 0, Differential Comment SCANNED, Diff Path Review May foll, Plt Morphology Comment LARGE, PT 14.7, INR [...] 18:23 EST Reading Location ID and State: [facility] / [place] Tel [phone], Service support , Chest CTA 07/25/23 18:45 [...] 52 Minutes Charges/Coding Visit Charges Inpatient E&M: 70023 Subs Hosp L3 07/26/23 1339 <Electronically signed by Ronald Lowe MD> Cosigner Signature (if applicable): CC: ~ Signed [facility] Work Phone: 1(898) 714-623511-24-2023 Progress note Author Zelalem Hernandez [facility] July 26, 2023 11:37am Note Date/Time July 26, 2023 11:37am [facility] Medical Records Department [address] [place] [address] Progress Note 07/26/23 1136 MR#: [id number] Acct: [id number] Name: KARY HADDAD Rep #:[id number] : 1955 68 From: Zelalem Hernandez MD PCP: Dr. Awa Hargrove, DO Status:ADM IN Location: [place] [address] Progress Note Mild proximal RCA and mid LAD disease. Chest pain and troponin elevation likelysecondary to severe uncontrolled hypertension at presentation. Also consider vasospasm. Recommend adequate control of blood pressure. Start on amlodipine for possible vasospasm. Continue aspirin. Risk factor modification. 07/26/23 1137 <Electronically signed by Zelalem Hernandez MD> Zelalem Hernandez MD Cosigner Signature (if applicable): CC: ~ Signed [facility] Work Phone: 1(660) 973-125911-24-2023 Consult note Author Zelalem Hernandez [facility] July 26, 2023 9:40am Note Date/Time July 26, 2023 9:40am [facility] Medical Records Department [address] [place] [address] Consultation - Cardiology 07/26/23 0935 MR#: [id number] Acct: [id number] Name: KARY HADDAD Rep #:[id number] : 1955 68 From: Zelalem Hernandez MD PCP: Dr. Awa Hargrove DO Status:ADM IN Location: [place] [address] Assessment & Plan Assessment/Plan (1) NSTEMI (non-ST [...] denies any previous history of heart disease. [facility] Medical History (Updated 07/25/23 @ 23:18 by [...] 88.1 H, Lymph % (Auto) 5.4 L, [place] % (Auto) 5.4, Eos % (Auto) 0.1, [...] (Auto) 69.2, Lymph % (Auto) 16.6 L, [place] % (Auto) 12.2 H, Eos % (Auto) 0.7, Baso % (Auto) 0.7, Absolute Neuts (auto)10.1 H, Absolute Lymphs (auto) 2.42, Nucleated RBC % 0, Differential Comment SCANNED, Diff Path Review May roman, Plt Morphology Comment LARGE, PT 14.7, INR [...] 88.1 H, Lymph % (Auto) 5.4 L, [place] % (Auto) 5.4, Eos % (Auto) 0.1, [...] (Auto) 69.2, Lymph % (Auto) 16.6 L, [place] % (Auto) 12.2 H, Eos % (Auto) [...] Hernandez MD; Dr. Awa Hargrove DO~ Signed [facility] Work Phone: 1(169) 814-403411-24-2023 History and physical note Author Melecio Torrez [facility] July 25, 2023 11:25pm Note Date/Time July 25, 2023 11:17pm [facility] Medical Records Department [address] [place] [address] H&P Exam - Hospitalist 07/25/23 2258 MR#: [id number] Acct: [id number] Name: KARY HADDAD Rep #:[id number] : 1955 68 From: Melecio Torrez MD PCP: Dr. Awa Hargrove, DO Status:ADM IN Location: [place] [address] HPI - General General Date of Admission: 07/25/23 Date of Service: 07/25/23 Chief Complaint: Chest pain HPI Narrative AKRY HADDAD, is a 68 F who presents [...] no alcohol use, no other drug abuse. 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 The was also present in the room [...] 88.1 H, Lymph % (Auto) 5.4 L, [place] % (Auto) 5.4, Eos % (Auto) 0.1, [...] 18:23 EST Reading Location ID and State: [facility] / [place] Tel [phone], Service support , Chest CTA 07/25/23 18:45 IMPRESSION: No demonstrated pulmonary embolism or arterial dissection. Left upper lobe nodule likely a granuloma. Electronically Signed: Сергейboy Altman, at 20:23 EST Reading Location ID and State: [facility] / [place] Tel [phone], Service support , ADDENDUM: 07/25/232110 IMPRESSION: undefined Assessment & [...] for NSTEMI. This was discussed with the clinical cytogenetics director on-call,and the patient was started on heparin, [...] ACS also. Charges/Coding Visit Charges Inpatient E&M: 67329 Init Hosp L2 07/25/230 <Electronically signed by Melecio Torrez MD> Cosigner Signature (if applicable): CC: Dr. Melecio Torrez MD; Dr. Awa Hargrove DO~ Signed ADDENDUM by Dr. Melecio Torrez MD on 07/25/23 at 2325 Addendum Started IV Cefazolin for the suspected breast lesion, will consider US of the breast lesion if there is no improvement in the leucocytosis. 07/25/23 2325<Electronically signed by Melecio Torrez MD> Cosigner Signature (if applicable): cc: Dr. Melecio Torrez MD; Dr. Awa Hargrove DO ~* Signed [facility] Work Phone: 1(260) 339-485011-23-2023 Discharge summary Author Valentin [facility] July 25, 2023 9:27pm Note Date/Time July 25, 2023 5:26pm [facility] Medical Records Department [address] [place] [address] Emergency Department Summary 07/25/23 MR#: [id number] Acct: [id number] Name: KARY HADDAD Rep #:[id number] : 1955 68 From: Valentin Caicedo PCP: [...] respiratory distress noted Breast: Breast exam performed land mobile radio technician Azul 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 Right breast with nipple [...] no anemia or thrombocytopenia BMP without significant [place] normalities, there is no anion gap to [...] 88.1 H Lymph % (Auto) 5.4 L [place] % (Auto) 5.4 Eos % (Auto) 0.1 Baso % (Auto) 0.5 Absolute Neuts (auto) 16.7 H Absolute Lymphs (auto) 1.03 Nucleated RBC % 0 Radiography Diagnostic Testing: Clinical Impression(s) from Imaging Studies Chest X-Ray 07/25/23 17:50 IMPRESSION: No radiographic evidence of acute cardiopulmonary disease. Electronically Signed: Сергей Altman DO at 18:23 EST Reading Location ID and State: [address] [place] [address] Tel [phone], Service support , Discharge Plan Triage Chief Complaint: Chest Pain ED Provider: Valentin Ceballos Dx/Rx/DC Orders Primary Care Provider: Awa Hargrove Referrals: Awa Hargrove DO [Primary Care Provider] - What to do if you have Problems For any increased pain, shortness of breath, bleeding, nausea or vomiting, chestpain, or any unexpected problems, contact your Primary Care Provider. Call [facility] ([phone]) or report to the closest Emergency Room. Call 911 if necessary. 07/25/232126 <Electronically signed by Valentin Ceballos DO> Cosigner Signature (if applicable): CC: Dr. Awa Hargrove DO ~ Signed [facility] Work Phone: 1(128) 929-299811-23-2023 Discharge summary Author Valentin Tucker [facility] July 25, 2023 9:27pm Note Date/Time July 25, 2023 5:26pm [facility] Medical Records Department [address] [place] [address] Emergency Department Summary 07/25/23 MR#: [id number] Acct: [id number] Name: KARY HADDAD Rep #:[id number] : 1955 68 From: Valentin Caicedo PCP: Dr. Awa Hargrove, DO Status:REG ER [...] reviewed, Vital signs reviewed Constitutional: please see [facility] HENT: MMM Eyes: Pupils equal round and reactive to light, Extraocular muscles intact Neck: No stridor, no JVD, full neck ROM Lungs: Clear to auscultation, No wheezing or rales. No increased work of breathing, no conversational dyspnea, no accessory muscle use, no nasal flaring. No respiratory distress noted Breast: Breast exam performed land mobile radio technician Azul 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 Right breast with nipple [...] Cardiology (Dr. Hernandez), internal medicine (Dr. Torrez) [facility] Narrative: Patient was initially hypertensive otherwise hemodynamically [...] 88.1 H Lymph % (Auto) 5.4 L [place] % (Auto) 5.4 Eos % (Auto) 0.1 Baso % (Auto) 0.5 Absolute Neuts (auto) 16.7 H Absolute Lymphs (auto) 1.03 Nucleated RBC % 0 Radiography Diagnostic Testing: Clinical Impression(s) from Imaging Studies Chest X-Ray 07/25/23 17:50 IMPRESSION: No radiographic evidence of acute cardiopulmonary disease. Electronically Signed: Сергей Altman DO at 18:23 EST Reading Location ID and State: [facility] / [place] Tel [phone], Service support , Discharge Plan Triage Chief Complaint: Chest Pain ED Provider: Valentin Ceballos Dx/Rx/DC Orders Primary Care Provider: Awa Hargrove Referrals: Awa Hargrove DO [Primary Care Provider] - What to do if you have Problems For any increased pain, shortness of breath, bleeding, nausea or vomiting, chestpain, or any unexpected problems, contact your Primary Care Provider. Call [facility] ([phone]) or report to the closest Emergency Room. Call 911 if necessary. 07/25/232126 <Electronically signed by Valentin Ceballos DO> Cosigner Signature (if applicable): CC: Dr. Awa Hargrove DO ~ Signed [facility] Work Phone: Consult note Author Jules Hudson [facility] December 01, 2023 2:20pm Note Date/Time December 01, 2023 2:2 0pm [facility] Medical Records Department [address] [place] [address] Consultation - Surgical 12/01/23 1416 MR#: [id number] Acct: [id number] Name: KARY HADDAD Rell Rep #:[id number] : 1955 68 From: Jules pope MD PCP: Dr. Awa Hargrove DO Status:REG ER Location: ED Assessment & [...] proceed with procedure. Jules Hudson MD Pager: [facility] [address] [place] [address], [address] [place] [address] Office: HPI Consult Data Date of Consult: [...] or vomiting. She denies fevers or chills. [facility] Medical History (Updated 12/01/23 @ 14:18 by [...] 71.5 H, Lymph % (Auto) 16.6 L, [place] % (Auto) 8.4, Eos % (Auto) 2.2, [...] 12:39 EDT Reading Location ID and State: [address] [place] [address] , Service support , 12/01/23 1420 <Electronically signed by Jules Hudson MD> Cosigner Signature (if applicable): CC: Dr. Awa Hargrove, DO~ Signed [facility] Work Phone: Evaluation noteNo assessment information available [facility] Work Phone: Evaluation note* Diagnosis Onset Date Resolution Status Hypertensive emergency without congestive heart failur e acute Infection acute NSTEMI (non-ST elevated myocardial infarction) acute Resistant hypertension acute CKD (chronic kidney disease) chronic [facility] Work Phone: Evaluation note* Diagnosis Onset Date Resolution Status Infection acute CKD (chronic kidney disease) chronic Hypertensive emergency witho ut congestive heart failure resolved NSTEMI (non-ST elevated myocardial infarction) resolved Resistant hypertension resol garima [facility] Work Phone: Evaluation note* Diagnosis Onset Date Resolution Status Appendicolith acute Back pain acute Duodenal mass acute Leukocytosis acute Upper GI bleed acute [facility] Work Phone: Evaluation note* Diagnosis Onset Date Resolution Status Appendicolith acute Back pain acute Duodenal mass acute Duodenal ulcer acute Leukocytosis acute Upper GI bleed acute [facility] Work Phone: Evaluation note* Diagnosis Duodenal ulcer with hemorrhage Chronic or unspecified duodenal ulcer with hemorrhage, without mention of obstruction [facility] Diagnosis Pre-op examination- Primary Preoperative examination, unspecified Duodenal ulcer with hemorrhage Chronic or unspecified duodenal ulcer with hemorrhage, without mention of obstruction Pre-op examination Preoperative examination, unspecified Coronary artery disease involving [place] coronary artery of [place] heart without angina pectoris Adrenal nodule (HCC) Unspecified disorder of adrenal glands Primary hypertension Unspecified essential hypertension Mixed hyperlipidemia Coronary artery disease involving [place] coronary artery of [place] heart without angina pectoris Adrenal nodule (HCC) Unspecified disorder of adrenal glands HTN (hypertension) Unspecified essential hypertension Mixed hyperlipidemia * Assessment & Plan Note - Noemy Jaramillo APRN.ACID CONDITIONING WORKER - 03/23/2024 11:22 AM EDT Associated Problem(s): [...] EDT Associated Problem(s): Coronary artery disease involving [place] coronary artery of [place] heart without angina pectoris CA in 07/2023. No cardiac stents. Does not follow with cardiology. Managed by PCP. Patient has all medical care in [place]- unable to access any cardiac imaging through [facility] or Care Everywhere. * Assessment & Plan Note - Noemy Jaramillo APRN.CNP - 03/23/2024 10:48 AM EDT Associated Problem(s): Pre-op examination see note for medical conditions which may affect marco-operative course that were addressed at today's visit. [facility]* Diagnosis Pre-op examination- Primary Preoperative examination, unspecified Duodenal ulcer with hemorrhage Chronic or unspecified duodenal ulcer with hemorrhage, without mention of obstruction Pre-op examination Preoperative examination, unspecified Coronary artery disease involving [place] coronary artery of [place] heart without angina pectoris Adrenal nodule (HCC) Unspecified disorder of adrenal glands Primary hypertension Unspecified essential hypertension Mixed hyperlipidemia Coronary artery disease involving [place] coronary artery of [place] heart without angina pectoris Adrenal nodule (HCC) Unspecified disorder of adrenal glands Mixed hyperlipidemia SDH (subdural hematoma) (HCC)- Primary Subdural hemorrhage [facility]* Diagnosis Pre-op examination- Primary Preoperative examination, unspecified Duodenal ulcer with hemorrhage Chronic or unspecified duodenal ulcer with hemorrhage, without mention of obstruction Pre-op examination Preoperative examination, unspecified Coronary artery disease involving [place] coronary artery of [place] heart without angina pectoris Adrenal nodule (HCC) Unspecified disorder of adrenal glands Primary hypertension Unspecified essential hypertension Mixed hyperlipidemia Coronary artery disease involving [place] coronary artery of [place] heart without angina pectoris Adrenal nodule (HCC) Unspecified disorder of adrenal glands Mixed hyperlipidemia Anemia, unspecified type- Primary [facility]* Diagnosis Pre-op examination- Primary Preoperative examination, unspecified Duodenal ulcer with hemorrhage Chronic or unspecified duodenal ulcer with hemorrhage, without mention of obstruction Pre-op examination Preoperative examination, unspecified Coronary artery disease involving [place] coronary artery of [place] heart without angina pectoris Adrenal nodule (HCC) Unspecified disorder of adrenal glands Primary hypertension Unspecified essential hypertension Mixed hyperlipidemia Coronary artery disease involving [place] coronary artery of [place] heart without angina pectoris Adrenal nodule (HCC) Unspecified disorder of adrenal glands Mixed hyperlipidemia 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, not on chronic dialysis (HCC)- Primary [facility]* Diagnosis Onset Date Resolution Status Admit Date Anemia acute May 9:05am Dementia acute May 9:05am [facility] Work Phone: History and physical note Author Phillip Kingsley [facility] December 01, 2023 3:13pm Note Date/Time December 01, 2023 3:1 2pm [facility] Medical Records Department [address] [place] [address] H&P Exam - Hospitalist 12/01/23 1507 MR#: [id number] Acct: [id number] Name: KARY HADDAD Rep #:[id number] : 1955 68 From: Phillip Kingsley DO PCP: Dr. Awa Hargrove DO Status:ADM PING [place] [id number] HPI - General General Date of Admission: [...] plan is for endoscopy on December 01. [facility] Medical History (Updated 12/01/23 @ 15:10 by [...] 71.5 H, Lymph % (Auto) 16.6 L, [place] % (Auto) 8.4, Eos % (Auto) 2.2, [...] with SCDs Charges/Coding Visit Charges Inpatient E&M: 42373 Init Hosp L3 12/01/23 1513 <Electronically signed by Phillip Kingsley DO> Cosigner Signature (if applicable): CC: Dr. Phillip Kingsley DO; Dr. Awa Hargrove DO~ Signed [facility] Work Phone: Reason for referral (narrative)* Outpatient Procedure (Routine) - Closed Specialty Diagnoses / Procedures Referred By Karely t Referred To Contact [facility] Diagnoses Duodenal ulcer with hemorrhage Procedures EGD DIAGNOSTIC ESOPHAGOGASTRODUODENOSC OPY TRANSORAL DIAGNOSTIC Jules Alvarez MD [address] [facility] [place] [address] [facility] [place] [address] [place] [address] Referral ID Status Reason Start Date Expiration Date V isits Requested Visits Authorized [id number] Closed Auto-Generate d Referral 02/21/2024 02/20/2025 1 1 [facility]No [facility] for [facility] Work Phone: Reason for visit Narrative* Outpatient Procedure (Routine) - Closed Specialty Diagnoses / Procedures Referred By Contac t Referred To Contact [facility] Diagnoses Duodenal ulcer with hemorrhage Procedures EGD DIAGNOSTIC ESOPHAGOGASTRODUODENOSC OPY TRANSORAL DIAGNOSTIC Jules Alvarez MD [address] [place] [address] [facility] [place] [address] [place] [address] Referral ID Status Reason Start Date Expiration Date V isits Requested Visits Authorized [id number] Closed Auto-Generate d Referral 02/21/2024 02/20/2025 1 1 [facility] Chief Complaint and Reason for Visit Chief [...] Upper GI bleed Chief Complaint Admit Date [facility] August 27, 2024 5:00am [facility] August 31 5:00am [facility] September 21, 2024 5:00am [facility] November 30, 2024 4 :00am Chief Complaint Admit Date [facility] November 30, 2024 4 :00am [facility] December 02, 2024 5: 00am LABWORK January 13, 2025 5:00a m Chief Complaint Admit Date [facility] February 12, 2025 7: 15am [facility] March 30, 2025 1: 10am [facility] April 06, 2025 4 :00am LABWORK May 04, 2025 5:00am DECLINING MENTAL STATUS May 17, 2025 9:05am Reason for Visit Admit Date Anemia May 17, 2025 9:05am Dementia May 17, 2025 9:05am Chief Complaint Admit Date [facility] February 12, 2025 7: 15am [facility] March 30, 2025 1: 10am [facility] April 06, 2025 4 :00am [...] No July 25, 023 5:08pm Power of Manager Of Distribution No July 25, 2023 5:08pm Advance Directive Response Recorded Date/ Time Living Will No July 25 023 10:10pm Power of Manager Of Distribution No July 25, 2023 10:10pm Advance Directive Response Recorded Date/ Time Living Will No December 01, 2023 10:38am Power of Manager Of Distribution No November 30 10:38am Advance Directive Response Recorded Date/ Time Living Will No December 01, 2023 3:43pm Power of Manager Of Distribution No November 30 3:43pm Date Activated Date [...] CT HEAD/BRAIN W/O CONTRAST MATERIAL Becca Garcia, PAElisabeth [address] [place] [address] [place] [address] Referral ID Status Reason Start Date Expiration Date Visits Requested Visits Authorized [id number] New Request Auto-Generat ed Referral 07/20/2025 1 [...] Ceballos DO Emergency Provider Active Dr. Melecio Torrze MD Admit Provider, Attending Prov ider Active [...] Dr. 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 Awa Hargrove DO Family Provider Active Dr. Phuc Barker MD Primary Care Provider Active Team Status: Inactive Member Role Status Dates Dr. Phuc Barker MD Primary Care Provider Active Start: August 27, 2024 End: August 27, 2024 [facility] Attending Provider Active Start: August [...] Status: Inactive Member Role Status Dates Dr. 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 Phuc Bakrer MD Primary care physician Active Start: May [...] care physician Active Start: June 01, 2025 [facility] Attending physician Active Start: May Source Comments (unrecognize d section and content) In the event this informatio n is protected by the Federal Confidentiality of Alcohol and Drug Abuse Patient Records regulations: The Federal rules restrict any use of the information to criminally investigate or prosecute any alcohol or drug abuse patient.[facility] the event this information is protected by the Federal Confidentiality of Alcohol and Drug Abuse Patient Records regulations: The Federal rules restrict any use of the information to criminally investigate or prosecute any alcohol or drug abuse patient.[facility] the event this information is protected by the Federal Confidentiality of Alcohol and Drug Abuse Patient Records regulations: The Federal rules restrict any use of the information to criminally investigate or prosecute any alcohol or drug abuse patient.[facility] the event this information is protected by the Federal Confidentiality of Alcohol and Drug Abuse Patient Records regulations: The Federal rules restrict any use of the information to criminally investigate or prosecute any alcohol or drug abuse patient.[facility] Health[facility] the event this information is protected by the Federal Confidentiality of Alcohol and Drug Abuse Patient Records regulations: The Federal rules restrict any use of the information to criminally investigate or prosecute any alcohol or drug abuse patient.[facility] the event this information is protected by the Federal Confidentiality of Alcohol and Drug Abuse Patient Records regulations: The Federal rules restrict any use of the information to criminally investigate or prosecute any alcohol or drug abuse patient.[facility] HealthIn the event this information is protected by the Federal Confidentiality of Alcohol and Drug Abuse Patient Records regulations: The Federal rules restrict any use of the information to criminally investigate or prosecute any alcohol or drug abuse patient.[facility] HealthIn the event this information is protected by the Federal Confidentiality of Alcohol and Drug Abuse Patient Records regulations: The Federal rules restrict any use of the information to criminally investigate or prosecute any alcohol or drug abuse patient.[facility] HealthIn the event this information is protected by the Federal Confidentiality of Alcohol and Drug Abuse Patient Records regulations: The Federal rules restrict any use of the information to criminally investigate or prosecute any alcohol or drug abuse patient.[facility] Reason for Visit (unrecogniz ed section and content) Specialty Diagnoses / Procedures Referred By Contac t Referred To Contact CT IMAGING Diagnoses Duodenal ulcer with hemorrhage Procedures CT ABD/PEL W IVCON CT ABD & PELVIS W/CONTRAST Jules Alvarez MD [address] [place] [address] [place] [address] Referral ID Status Reason Start Date Expiration Date V isits Requested Visits Authorized [id number] Closed Auto-Generate d Referral 02/19/2024 03/20/2025 [address] Specialty Diagnoses / Procedures Referred By Contac t Referred To Contact CT IMAGING Diagnoses Duodenal ulcer with hemorrhage Procedures CT ABD/PEL W IVCON CT ABD & PELVIS W/CONTRAST Jules Alvarez MD [address] [place] [address] [place] [address] Reason Comments CoPat Start Reason Comments Electronic Communication Reason Comments New Patient Evaluation INFORMATION SOURCE (unrecogn ized section and content) DATE CREATED AUTHOR 05/16/2025 [facility] DATE CREATED AUTHOR AUTHOR'S ORGANIZ ATION 06/08/2025 [facility] DATE CREATED AUTHOR AUTHOR'S ORGANIZ ATION 07/05/2025 [facility] FOR RECORDS PERTAINING TO PATIENTS WHO [...] BE BASED ON THE PRIMARY CLINICAL RECORDS. [employer] provides no warranty or guarantee of the accuracy or completeness of information in this document.
[2025-07-06 08:39] LABS: Hematocrit 27.2 % (37-47); Hemoglobin 9.2 g/dL (12.0-15.0); Mean Corp Hgb Conc 33.8 g/dL (32-36); Mean Corpuscular Volume 95.4 fL (81-99); Mean Platelet Vol. 10.8 fl (6.2-12.0); Platelet Count 297 K/mm3 (150-450); RBC Distribution Width CV 12.3 % (11.6-14.6); RBC Distribution Width SD 43.2 fl (35.1-43.9); Red Blood Count 2.85 M/mm3 (4.2-5.4); White Blood Count 10.1 K/mm3 (4.4-11.0)
[2025-07-06 09:00] LABS: Albumin, Serum 4.4 g/dL (3.4-4.8); Anion Gap 17 (5-15); BUN 63 mg/dL (4-19); BUN/Creat Ratio 13.8 RATIO (10-20); Calcium,Total 9.3 mg/dL (7.6-11.0); Carbon Dioxide 17.5 mmol/L (21.0-32.0); Chloride 107 mmol/L (98-108); Glucose 106 mg/dL (70-99); Potassium 4.2 mmol/L (3.3-5.1)
[2025-07-06 09:09] LABS: PTHIN 212 pg/mL (11-61)
== END ==
LOC: OLS.SW 05:00
PROVIDERS: PCP Family Medicine; Visit Provider Family Medicine
DX: N18.5 Chronic kidney disease, stage 5 (principal)
CPT/HCPCS: 36415; 80069; 83970; 85027

== ENCOUNTER → 2025-07-12 | Outpatient (CLI) | payer MEDICARE, MEDICAID, SELFPAY | END | disposition home or self-care (01) | PROVIDERS: Referring Provider Psychiatry & Neurology Neurology; Visit Provider Psychiatry & Neurology Neurology | DX: I62.03 Nontraumatic chronic subdural hemorrhage (principal); F03.90 Unspecified dementia, unspecified severity, without behavioral disturbance, psychotic disturbance, mood disturbance, and anxiety | CPT/HCPCS: 95819 ==

== ENCOUNTER → 2025-07-12 | Outpatient (REF) | payer MEDICARE, MEDICAID, SELFPAY ==
[2025-07-13 09:26] LABS: Creatinine, Urine (random) 42.60 mg/dL (28.00-217.00); Protein, Urine (Random) 132.0 mg/dL (0.0-12.0); Protein:Creat Ratio 3099 mg/g CRE (0-200)
== END ==
LOC: OLS.SW 14:00
PROVIDERS: Visit Provider Internal Medicine
DX: Z00.00 Encounter for general adult medical examination without abnormal findings (principal)
CPT/HCPCS: 82570; 84156

== ENCOUNTER → 2025-07-21 | Outpatient (CLI) | payer MEDICARE, SELFPAY ==
--- NOTE | 2025-07-21 09:36 | MRI_ITS ---
PROCEDURE: SPINE CERVICAL (ROUTINE) 07/21/2025 REASON FOR EXAM: NECK PAIN; GAIT DISORDER; EVAL FOR SPINAL STENOSIS TECHNIQUE: Procedure Code: MRISP Modality: MR Procedure: SPINE CERVICAL (ROUTINE) Multiplanar and multisequence images were obtained without IV contrast administration. COMPARISON: CT cervical spine 07/16/2024. FINDINGS: Vertebrae: Cervical vertebral body heights are preserved. Bone marrow signal is unremarkable. Anterior bridging osteophytes consistent with diffuse idiopathic skeletal hyperostosis. Congenital narrowing of the pedicles. Alignment: Normal. No spondylolisthesis. Spinal Cord: Cervical spinal cord is of normal size and signal intensities. Structures at the foramen magnum are unremarkable. C2-3: Facet joints arthropathy. Mild bilateral foramina stenosis. Moderate canal stenosis. C3-4: Facet joints arthropathy. Moderate left and mild right foramina stenosis. Moderate canal stenosis. C4-5: Disc desiccation. Disc bulge. Facet joints arthropathy. Mild bilateral foramina stenosis. Moderate canal stenosis. C5-6: Disc desiccation. Facet joints arthropathy. Mild bilateral foramina stenosis. Moderate canal stenosis. C6-7: Disc desiccation. Disc bulge. Uncovertebral hypertrophy. Moderate bilateral foramina stenosis. Mild canal stenosis. C7-T1: No significant foraminal or canal stenosis. MRI/Spine Cervical (Routine) IMPRESSION: Degenerate changes predominantly for moderate canal stenosis at C3-C4, C4-C5 an d C5-C6. Reading Location: [facility]
--- NOTE | 2025-07-21 09:36 | MRI_ITS ---
PROCEDURE: BRAIN WITHOUT CONTRAST 07/21/2025 REASON FOR EXAM: DEMENTIA; HX R SDH 2023 TECHNIQUE: Procedure Code: MRIBR Modality: MR Procedure: BRAIN WITHOUT CONTRAST Multiplanar and multisequence images were obtained. COMPARISON: July 2024. FINDINGS: Diffusion-weighted images:Negative. ADC map: Negative. Gradient images: Negative. Cerebrum: Mild loss of cerebral volume. Negative for mass the frontal, parietal, temporal and occipital lobes otherwise negative. White matter: Moderate periventricular white matter changes. Numerous T2 lesions in the centrum semiovale and enrique radiata. Cerebellum: Negative for acute infarction. Otherwise negative cerebellum. CSF pathways and ventricles: Negative. Negative for ventricular dilatation or obstruction. 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 No acute infarctions. Brainstem: Midbrain, maris and medulla negative. Midline structures: The corpus callosum, pituitary fossa and cerebellar tonsils are negative. Limbic system: Medial temporal lobes and limbic system negative. Extra-axial spaces: Since the prior exam of the right-sided subdural hematoma has resolved. Or been drained . Negative for acute subarachnoid subdural or epidural hemorrhage. Orbital structures: Globes negative. Extraocular muscles negative. Paranasal sinuses: Mucosal disease in the maxillary sinuses. Remainder of the sinuses negative. Vascular structures: Normal intracranial flow voids including the superior sagittal sinus. Other: No abnormal enhancement. Remainder of exam negative. MRI/Brain without Contrast IMPRESSION: Atrophy and small-vessel disease more than anticipated for patient's age. Interval resolution right-sided subdural hematoma. Negative for acute intracranial pathology. Reading Location: [id number]
== END | disposition home or self-care (01) ==
LOC: MRI 09:22
PROVIDERS: PCP Family Medicine; Referring Provider Psychiatry & Neurology Neurology; Visit Provider Psychiatry & Neurology Neurology
DX: I62.03 Nontraumatic chronic subdural hemorrhage (principal); F03.90 Unspecified dementia, unspecified severity, without behavioral disturbance, psychotic disturbance, mood disturbance, and anxiety; M54.2 Cervicalgia; R26.9 Unspecified abnormalities of gait and mobility
CPT/HCPCS: 70551; 72141

== ENCOUNTER → 2025-07-27 | Outpatient (REF) | payer MEDICARE, MEDICAID, SELFPAY ==
--- OUTSIDE RECORDS SUMMARY | 2025-07-27 04:16 | XMS RPT_ITS | CCD ---
Author Organization [facility] Care Team Providers Care Log Chipper Operator Name Role Phone Dr. Awa Hargrove Primary Care Provider Dr. Valentin Ceballos Emergency Provider [phone] Dr. Melecio Torrez Admit Provider Unavailable Dr. [...] Dr. Awa Hargrove Primary Care Provider [phone] Raisa Calhoun Emergency Provider Dr. Jules Hudson Attending Provider Dr. Claudy Munoz Admit Provider Dr. Claudy Munoz Other Provider Dr. Phillip Kingsley Attending Provider Dr. Jules Hudson Other Provider [phone] Ronald Lowe Attending Provider Unavailable Dr. Ronald Lowe Other Provider Unavailable Malys DO, Awa A Primary Care Provider Mj LOUIS, Dr. Friend Primary Care Provider [facility] Attending Provid er Ayanna Landrum MD, Dr. Vaughn Attending Provider Unavailjimenez Landrum MD, [...] Chang MD, Dr. Nicole Attending Provider [phone] Mj [place]IS, Dr. Friend Referring Provider Caitlyn LOUIS, Dr. Baltazar Attending Provider Mj [place], Dr. Friend Primary Care Physician Rush L[place]IS, Dr. Ramsay Attending Physician Marlene Chang MD, Dr. Nicole Attending Physician [phone] Caitlyn LOUIS, Dr. Baltazar Attending Physician [phone] Caitlyn LOUIS, Dr. Baltazar Referring Provider [phone] [facility] Attending Physic cathi Unavailable SULTANA GARCIA Referring Unavailable DEVENDRA BEVERLY Primary Care Unavailable SULTANA GARCIA Attending Unavailable JAJA CHANG Referring Unavailabl e DEVENDRA BEVERLY Primary Care Unavailable Devendra Beverly Primary Care Unavailable Johana Mckinley Attending Unavailable Phuc Barker Primary Care Unavailable Devendra Fernández Attending Unavailable Giovanny Brady Referring Unavailable Giovanny Brady Attending Unavailable Devendra Beverly Primary Care Unavailable Phuc Barker Referring Unavailable Giovanny Brady Attending Unavailable Phuc Barker Primary Care Unavailable Phuc Barker Primary Care Unavailable Armando Briones Attending Unavailabl e Gudla KRYSTIN, Johana Attending Unavailable Barker, Phuc Primary Care Unavailable Gudla OLS, Johana Referring Unavailable Gudla OLS, Johana Attending Unavailable Barker, Phuc Primary Care Unavailable Gudla OLS, Johana Attending Unavailable Barker, Phuc Primary Care Unavailable Devendra Fernández Attending Unavailable Barker, Phuc Primary Care Unavailable Barker, Phuc Primary Care Unavailable Carmen Cates Attending Unavailabl e Iris, Bonnie Attending Unavailable Barker, Phuc Primary Care Unavailable Barker, Phuc Primary Care Unavailable Gudla KRYSTIN, Johana Attending Unavailable Barker, Phuc Primary Care Unavailable [facility] Attending Unavailable Barker, Phuc Primary Care Unavailable Gukathya KRYSTIN, Johana Attending Unavailable Barker, Phuc Primary Care Unavailable [facility] Attending Unavailable Iris, Bonnie Attending Unavailable Devendra Beverly Primary Care Unavailable Iris, Bonnie Referring Unavailable Barker, Phuc Primary Care Unavailable Devendra Fernández Attending Unavailable [facility] Attending Unavailable Barker, Phuc Primary Care Unavailable Barker, Phuc Primary Care Unavailable Giovanny Brady Referring Unavailable Baddour, Giovanny Attending Unavailable Baddour, Giovanny Referring Unavailable BaddoGiovanny mckeon Attending Unavailable Barker, Phuc Primary Care Unavailable Barker, Phuc Referring Unavailable Devendra Beverly Primary Care Unavailable Cynthia Carvajal Attending Unavailable Barker, Phuc Primary Care Unavailable Devendra Fernández Attending Unavailable Devendra Fernández Referring Unavailable Barker, Phuc Primary Care Unavailable Devendra Fernández Attending Unavailable Allergies Allergy Classification Reported Allergen(s) Allergy Type Date of Onset Reaction(s) Facility (11 sources) amLODIPine; Translations: [AMLODIPINE] Drug Allergy 7 Other: See Comments [facility] (7 sources) Aspartame; Translations: [ASPARTAME] Drug Allergy 5 Other: See Comments [facility] Comment on above: feet & legs (1 source) Aspartame Drug Allergy 5 [facility] Repository Medications Current Medications Medication Drug [...] Start: 05-17-2025 take 2 tablets by mo uth once daily Magnesium 200 mg tablet Active [...] 2 03/23/2024 03/23/2025 Active polyethylene glycol 3350 48730 mg powder for oral solution (5 sources) [...] 22, 2024 2:09pm take 1 capsule by [facility] once daily at bedtime sertraline 150 mg capsule Take 150 mg by mouth daily at bedtime. Active sodium phosphate,mono-dibasi c (FLEET [place]) (3 sources) sodium phosphate ,mono-dibasic (FLEET [place]EMA [place]) 1 suppository by RECTAL route as needed. Active vit B comp no.6-rebin-B-biot in (4 sources) Start: 07-16-2024 Start: 07-16-2024 vit B comp no. 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] Onset: 4 [...] aftercare (4 sources) Drug therapy finding; Translations: [[facility] (current) use of anticoagulants] 06-26-2024 Episodic Other aftercare (2 sources) Other long chain beamer (current) drug therapy; Translations: [Other long chain beamer (current) drug therapy] Onset: 5 Episodic Other [...] sources) Unspecified atherosclerosis; Translations: [Unspecified atherosclerosis] Onset: Chronic Residual codes; unclassified (8 sources) Altered mental status; Translations: [Altered mental status, unspecified] 07-30-2024 Episodic Residual codes; unclassified (1 source) Altered mental status, unspecified; Translations: [Altered mental [...] syndrome; Translations: [Acute kidney failure, unspecified] Onset: 09-25-2024 07-30-2024 Episodic Deficiency and other anemia (5 [...] Test Name Value Interpretation Reference Range Facility Protein+Creatinine Ratio,Uri neon 2025 PROT:CRE RATIO 3099 mg/g CRE High 0-200 [facility] Comment on above: Performed By: #### L 501.0900 ####[facility] [address] [place], [address] Protein (U) [Mass/Vol] 132.0 mg/dL High 0.0-12.0 [facility] Comment on above: Performed By: #### L 501.0900 ####[facility] [address] [place], [address] UR CREAT 42.60 mg/dL Normal 28.00-217.0 0 [facility] Comment on above: Performed By: #### L 501.0900 ####[facility] [address] [place], [address] L3410.9992on 07-12-2025 [facility] Misc. Normal [facility] Comment on above: Order Comment: 516.1 25-HYDROXY (D2+D3)501371 Result Comment: TEST RESULTS VSFRIJ20-Uqpljuvbacqpii D LCMS D2+D3 25-Hydroxy, Vitamin D 54 ng/mL Reference Range: All Ages: Target levels 30 - 100 25-Hydroxy, Vitamin D-2 17 ng/mL This test was developed and its performance characteristics determined by [employer]. It has not been cleared or approved by the Food and Drug Administration. 25-Hydroxy, Vitamin D-3 37 ng/mL This test was developed and its performance characteristics determined by [facility]. It has not been cleared or approved by the Food and Drug Administration. TESTING PERFORMED AT [facility] ORIGINAL REPORT ON FILE IN LAB CONTAINS ADDITIONAL TEST SITE INFORMATION. Performed By: #### L 500.3600, L3410.9992, L509.1000, L100.0500 ####[facility] [address] [place], [address] MR/BMS.BVSon 07-12-2025 MR/BMS.BVS Normal [facility] Protein+Creatinine Ratio,Uri neon 07-07-2025 PROT:CRE RATIO Normal 0-200 [facility] Comment on above: Result Comment: JERZY ECTED IN THE WRONG CONTAINER REJECTED BY LAB 07/08/25@0920 CALLED SW AND LEFT MESSAGE WITH NURSE FOR RECOLLECTION Performed By: #### L 501.0900 ####[facility] [address] [place], [address] PROTEIN,UR.RAN. Normal 0.0-12.0 [facility] Comment on above: Result Comment: JERZY ECTED IN THE WRONG CONTAINER REJECTED BY LAB 07/08/25@0920 CALLED SW AND LEFT MESSAGE WITH NURSE FOR RECOLLECTION Performed By: #### L 501.0900 ####[facility] [address] [place], [address] UR CREAT Normal 28.00-217.0 0 [facility] Comment on above: Result Comment: JERZY ECTED IN THE WRONG CONTAINER REJECTED BY LAB 07/08/25@0920 CALLED SW AND LEFT MESSAGE WITH NURSE FOR RECOLLECTION Performed By: #### L 501.0900 ####[facility] [address] [place], [address] CBC-Complete Blood Cnt No Di ffon 07-06-2025 Erythrocyte distribution width (RBC) [Ratio] 12.3 % Normal 11.6-14.6 [facility] Comment on above: Order Comment: 516.1 Performed By: #### L 500.3600, L3410.9992, L509.1000, L100.0500 ####[facility] [address] [place], [address] Hematocrit (Bld) [Volume fraction] 27.2 % Low 37-47 [facility] Comment on above: Order Comment: 516.1 Performed By: #### L 500.3600, L3410.9992, L509.1000, L100.0500 ####[facility] [address] [place], [address] Hemoglobin (Bld) [Mass/Vol] 9.2 g/dL Low 12.0-15.0 [facility] Comment on above: Order Comment: 516.1 Performed By: #### L 500.3600, L3410.9992, L509.1000, L100.0500 ####[facility] [address] [place], [address] MCH (RBC) [Entitic mass] 32.3 pg High 27.0-32.0 [facility] Comment on above: Order Comment: 516.1 Performed By: #### L 500.3600, L3410.9992, L509.1000, L100.0500 ####[facility] [address] [place], [address] MCHC (RBC) [Mass/Vol] 33.8 g/dL Normal 32-36 [facility] Comment on above: Order Comment: 516.1 Performed By: #### L 500.3600, L3410.9992, L509.1000, L100.0500 ####[facility] [address] [place], [address] MCV (RBC) [Entitic vol] 95.4 fL Normal 81-99 [facility] Comment on above: Order Comment: 516.1 Performed By: #### L 500.3600, L3410.9992, L509.1000, L100.0500 ####[facility] [address] [place], [address] Platelet mean volume (Bld) [Entitic vol] 10.8 fL Normal 6.2-12.0 [facility] Comment on above: Order Comment: 516.1 Performed By: #### L 500.3600, L3410.9992, L509.1000, L100.0500 ####[facility] [address] [place], [address] Platelets (Bld) [#/Vol] 297 10*3/uL Normal 150-450 [facility] Comment on above: Order Comment: 516.1 Performed By: #### L 500.3600, L3410.9992, L509.1000, L100.0500 ####[facility] [address] [place], [address] RBC (Bld) [#/Vol] 2.85 10*6/uL Low 4.2-5.4 [facility] Comment on above: Order Comment: 516.1 Performed By: #### L 500.3600, L3410.9992, L509.1000, L100.0500 ####[facility] [address] [place], [address] RDW SD 43.2 fl Normal 35.1-43.9 [facility] Comment on above: Order Comment: 516.1 Performed By: #### L 500.3600, L3410.9992, L509.1000, L100.0500 ####[facility] [address] [place], [address] WBC (Bld) [#/Vol] 10.1 10*3/uL Normal 4.4-11.0 [facility] Comment on above: Order Comment: 516.1 Performed By: #### L 500.3600, L3410.9992, L509.1000, L100.0500 ####[facility] [address] [place], [address] PTHINon 07-06-2025 PTH 212 pg/mL High 11-61 [facility] Comment on above: Order Comment: 516.1 Performed By: #### L 500.3600, L3410.9992, L509.1000, L100.0500 ####[facility] [address] [place], [address] Renal Profileon 07-06-2025 Albumin [Mass/Vol] 4.4 g/dL Normal 3.4-4.8 [facility] Comment on above: Order Comment: 516.1 Performed By: #### L 500.3600, L3410.9992, L509.1000, L100.0500 ####[facility] [address] [place], [address] BUN/CRE 13.8 RATIO Normal 10-20 [facility] Comment on above: Order Comment: 516.1 Performed By: #### L 500.3600, L3410.9992, L509.1000, L100.0500 ####[facility] [address] [place], [address] Calcium [Mass/Vol] 9.3 mg/dL Normal 7.6-11.0 [facility] Comment on above: Order Comment: 516.1 Performed By: #### L 500.3600, L3410.9992, L509.1000, L100.0500 ####[facility] [address] [place], [address] Chloride [Moles/Vol] 107 mmol/L Normal 98-108 [facility] Comment on above: Order Comment: 516.1 Performed By: #### L 500.3600, L3410.9992, L509.1000, L100.0500 ####[facility] [address] [place], [address] CO2 [Moles/Vol] 17.5 mmol/L Low 21.0-32.0 [facility] Comment on above: Order Comment: 516.1 Performed By: #### L 500.3600, L3410.9992, L509.1000, L100.0500 ####[facility] [address] [place], [address] Creatinine [Mass/Vol] 4.61 mg/dL High 0.70-1.20 [facility] Comment on above: Order Comment: 516.1 Performed By: #### L 500.3600, L3410.9992, L509.1000, L100.0500 ####[facility] [address] [place], [address] GAP 17 High 5-15 [facility] Comment on above: Order Comment: 516.1 Performed By: #### L 500.3600, L3410.9992, L509.1000, L100.0500 ####[facility] [address] [place], [address] GFR/1.73 sq M.predicted among non-blacks MDRD (S/P/Bld) [Vol rate/Area] 10 mL/min/{1.73_m2} Low >60 [facility] Comment on above: Order Comment: 516.1 Result Comment: mL/m in/1.73m2 CKD-EPI Creatinine Equation (2020) Performed By: #### L 500.3600, L3410.9992, L509.1000, L100.0500 ####[facility] [address] [place], [address] Glucose [Mass/Vol] 106 mg/dL High 70-99 [facility] Comment on above: Order Comment: 516.1 Performed By: #### L 500.3600, L3410.9992, L509.1000, L100.0500 ####[facility] [address] [place], [address] Phosphate [Mass/Vol] 5.0 mg/dL High 2.7-4.5 [facility] Comment on above: Order Comment: 516.1 Performed By: #### L 500.3600, L3410.9992, L509.1000, L100.0500 ####[facility] [address] [place], [address] Potassium [Moles/Vol] 4.2 mmol/L Normal 3.3-5.1 [facility] Comment on above: Order Comment: 516.1 Performed By: #### L 500.3600, L3410.9992, L509.1000, L100.0500 ####[facility] [address] [place], [address] Sodium [Moles/Vol] 141 mmol/L Normal 133-145 [facility] Comment on above: Order Comment: 516.1 Performed By: #### L 500.3600, L3410.9992, L509.1000, L100.0500 ####[facility] [address] [place], [address] Urea nitrogen [Mass/Vol] 63 mg/dL High 4-19 [facility] Comment on above: Order Comment: 516.1 Performed By: #### L 500.3600, L3410.9992, L509.1000, L100.0500 ####[facility] [address] [place], [address] KEPPRA (LEVETIRACETAM)on KEPPRA 14.8 ug/mL Normal 10.0-40.0 [facility] Comment on above: Order Comment: 516.1 Result Comment: Perf ormed at: BN - [facility] [address] [id number] Director: Rk Petty MD, Phone: [phone] Performed By: #### L 100.0500, L501.2300, L3310.0000, L500.4050 ####[facility] [address] [place], [address] CBC-Complete Blood Cnt No Di ffon 06-29-2025 Erythrocyte distribution width (RBC) [Ratio] 12.1 % Normal 11.6-14.6 [facility] Comment on above: Order Comment: 516.1 Performed By: #### L 100.0500, L501.2300, L3310.0000, L500.4050 ####[facility] [address] [place], [address] Hematocrit (Bld) [Volume fraction] 27.5 % Low 37-47 [facility] Comment on above: Order Comment: 516.1 Performed By: #### L 100.0500, L501.2300, L3310.0000, L500.4050 ####[facility] [address] [place], [address] Hemoglobin (Bld) [Mass/Vol] 9.2 g/dL Low 12.0-15.0 [facility] Comment on above: Order Comment: 516.1 Performed By: #### L 100.0500, L501.2300, L3310.0000, L500.4050 ####[facility] [address] [place], [address] MCH (RBC) [Entitic mass] 31.9 pg Normal 27.0-32.0 [facility] Comment on above: Order Comment: 516.1 Performed By: #### L 100.0500, L501.2300, L3310.0000, L500.4050 ####[facility] [address] [place], [address] MCHC (RBC) [Mass/Vol] 33.5 g/dL Normal 32-36 [facility] Comment on above: Order Comment: 516.1 Performed By: #### L 100.0500, L501.2300, L3310.0000, L500.4050 ####[facility] [address] [place], [address] MCV (RBC) [Entitic vol] 95.5 fL Normal 81-99 [facility] Comment on above: Order Comment: 516.1 Performed By: #### L 100.0500, L501.2300, L3310.0000, L500.4050 ####[facility] [address] [place], [address] Platelet mean volume (Bld) [Entitic vol] 10.6 fL Normal 6.2-12.0 [facility] Comment on above: Order Comment: 516.1 Performed By: #### L 100.0500, L501.2300, L3310.0000, L500.4050 ####[facility] [address] [place], [address] Platelets (Bld) [#/Vol] 306 10*3/uL Normal 150-450 [facility] Comment on above: Order Comment: 516.1 Performed By: #### L 100.0500, L501.2300, L3310.0000, L500.4050 ####[facility] [address] [place], [address] RBC (Bld) [#/Vol] 2.88 10*6/uL Low 4.2-5.4 [facility] Comment on above: Order Comment: 516.1 Performed By: #### L 100.0500, L501.2300, L3310.0000, L500.4050 ####[facility] [address] [place], [address] RDW SD 41.6 fl Normal 35.1-43.9 [facility] Comment on above: Order Comment: 516.1 Performed By: #### L 100.0500, L501.2300, L3310.0000, L500.4050 ####[facility] [address] [place], [address] WBC (Bld) [#/Vol] 9.5 10*3/uL Normal 4.4-11.0 [facility] Comment on above: Order Comment: 516.1 Performed By: #### L 100.0500, L501.2300, L3310.0000, L500.4050 ####[facility] [address] [place], [address] Comprehensive Metabolic Prof ilon 06-29-2025 Albumin [Mass/Vol] 4.3 g/dL Normal 3.4-4.8 [facility] Comment on above: Order Comment: 516.1 Performed By: #### L 100.0500, L501.2300, L3310.0000, L500.4050 ####[facility] [address] [place], [address] Albumin/Globulin [Mass ratio] 1.9 {ratio} Normal 0.9-2.4 [facility] Comment on above: Order Comment: 516.1 Performed By: #### L 100.0500, L501.2300, L3310.0000, L500.4050 ####[facility] [address] [place], [address] ALK PHOS 80 U/L Normal 35-104 [facility] Comment on above: Order Comment: 516.1 Performed By: #### L 100.0500, L501.2300, L3310.0000, L500.4050 ####[facility] [address] [place], [address] ALT [Catalytic activity/Vol] 13 U/L Normal <=34 [facility] Comment on above: Order Comment: 516.1 Performed By: #### L 100.0500, L501.2300, L3310.0000, L500.4050 ####[facility] [address] [place], [address] AST [Catalytic activity/Vol] 17 U/L Normal <=31 [facility] Comment on above: Order Comment: 516.1 Performed By: #### L 100.0500, L501.2300, L3310.0000, L500.4050 ####[facility] [address] [place], [address] Bilirubin [Mass/Vol] 0.26 mg/dL Normal 0.00-1.30 [facility] Comment on above: Order Comment: 516.1 Performed By: #### L 100.0500, L501.2300, L3310.0000, L500.4050 ####[facility] [address] [place], [address] BUN/CRE 11.8 RATIO Normal 10-20 [facility] Comment on above: Order Comment: 516.1 Performed By: #### L 100.0500, L501.2300, L3310.0000, L500.4050 ####[facility] [address] [place], [address] Calcium [Mass/Vol] 9.5 mg/dL Normal 7.6-11.0 [facility] Comment on above: Order Comment: 516.1 Performed By: #### L 100.0500, L501.2300, L3310.0000, L500.4050 ####[facility] [address] [place], [address] Chloride [Moles/Vol] 106 mmol/L Normal 98-108 [facility] Comment on above: Order Comment: 516.1 Performed By: #### L 100.0500, L501.2300, L3310.0000, L500.4050 ####[facility] [address] [place], [address] CO2 [Moles/Vol] 21.2 mmol/L Normal 21.0-32.0 [facility] Comment on above: Order Comment: 516.1 Performed By: #### L 100.0500, L501.2300, L3310.0000, L500.4050 ####[facility] [address] [place], [address] Creatinine [Mass/Vol] 4.61 mg/dL High 0.70-1.20 [facility] Comment on above: Order Comment: 516.1 Performed By: #### L 100.0500, L501.2300, L3310.0000, L500.4050 ####[facility] [address] [place], [address] GAP 14 Normal 5-15 [facility] Comment on above: Order Comment: 516.1 Performed By: #### L 100.0500, L501.2300, L3310.0000, L500.4050 ####[facility] [address] [place], [address] GFR/1.73 sq M.predicted among non-blacks MDRD (S/P/Bld) [Vol rate/Area] 10 mL/min/{1.73_m2} Low >60 [facility] Comment on above: Order Comment: 516.1 Result Comment: mL/m in/1.73m2 CKD-EPI Creatinine Equation (2020) Performed By: #### L 100.0500, L501.2300, L3310.0000, L500.4050 ####[facility] [address] [place], [address] Globulin (S) [Mass/Vol] 2.3 g/dL Normal 2.2-4.2 [facility] Comment on above: Order Comment: 516.1 Performed By: #### L 100.0500, L501.2300, L3310.0000, L500.4050 ####[facility] [address] [place], [address] Glucose [Mass/Vol] 128 mg/dL High 70-99 [facility] Comment on above: Order Comment: 516.1 Performed By: #### L 100.0500, L501.2300, L3310.0000, L500.4050 ####[facility] [address] [place], [address] Potassium [Moles/Vol] 3.8 mmol/L Normal 3.3-5.1 [facility] Comment on above: Order Comment: 516.1 Performed By: #### L 100.0500, L501.2300, L3310.0000, L500.4050 ####[facility] [address] [place], [address] Sodium [Moles/Vol] 141 mmol/L Normal 133-145 [facility] Comment on above: Order Comment: 516.1 Performed By: #### L 100.0500, L501.2300, L3310.0000, L500.4050 ####[facility] [address] [place], [address] T PROT 6.6 g/dL Normal 5.9-8.4 [facility] Comment on above: Order Comment: 516.1 Performed By: #### L 100.0500, L501.2300, L3310.0000, L500.4050 ####[facility] [address] [place], [address] Urea nitrogen [Mass/Vol] 54 mg/dL High 4- [facility] Comment on above: Order Comment: 516.1 Performed By: #### L 100.0500, L501.2300, L3310.0000, L500.4050 ####[facility] [address] [place], [address] Phosphoruson 06-29-2025 Phosphate [Mass/Vol] 4.9 mg/dL High 2.7-4.5 [facility] Comment on above: Order Comment: 516.1 Performed By: #### L 100.0500, L501.2300, L3310.0000, L500.4050 ####[facility] [address] [place], [address] Basic Metabolic Profile (BMP )on 06-03-2025 BUN/CRE 13.4 RATIO Normal 10- [facility] Comment on above: Order Comment: 516.1 Performed By: #### L 500.2500 ####[facility] [address] [place], [address] Calcium [Mass/Vol] 9.6 mg/dL Normal 7.6-11.0 [facility] Comment on above: Order Comment: 516.1 Performed By: #### L 500.2500 ####[facility] [address] [place], [address] Chloride [Moles/Vol] 104 mmol/L Normal 98-108 [facility] Comment on above: Order Comment: 516.1 Performed By: #### L 500.2500 ####[facility] [address] [place], [address] CO2 [Moles/Vol] 21.4 mmol/L Normal 21.0-32.0 [facility] Comment on above: Order Comment: 516.1 Performed By: #### L 500.2500 ####[facility] [address] [place], [address] Creatinine [Mass/Vol] 4.31 mg/dL High 0.70-1.20 [facility] Comment on above: Order Comment: 516.1 Performed By: #### L 500.2500 ####[facility] [address] [place], [address] GAP 17 High 5-15 [facility] Comment on above: Order Comment: 516.1 Performed By: #### L 500.2500 ####[facility] [address] [place], [address] GFR/1.73 sq M.predicted among non-blacks MDRD (S/P/Bld) [Vol rate/Area] 10 mL/min/{1.73_m2} Low >60 [facility] Comment on above: Order Comment: 516.1 Result Comment: mL/m in/1.73m2 CKD-EPI Creatinine Equation (2020) Performed By: #### L 500.2500 ####[facility] [address] [place], [address] Glucose [Mass/Vol] 136 mg/dL High 70-99 [facility] Comment on above: Order Comment: 516.1 Performed By: #### L 500.2500 ####[facility] [address] [place], [address] Potassium [Moles/Vol] 3.8 mmol/L Normal 3.3-5.1 [facility] Comment on above: Order Comment: 516.1 Performed By: #### L 500.2500 ####[facility] [address] [place], [address] Sodium [Moles/Vol] 143 mmol/L Normal 133-145 [facility] Comment on above: Order Comment: 516.1 Performed By: #### L 500.2500 ####[facility] [address] [place], [address] Urea nitrogen [Mass/Vol] 58 mg/dL High 4-19 [facility] Comment on above: Order Comment: 516.1 Performed By: #### L 500.2500 ####[facility] [address] [place], [address] [facility] 06-03-2025 CNPN Telephone (ALICE) ZAHIDA BELTRE ([id number]) 1955 F Date Time Provider Department 06/03/25 FELECIA SCHWARZ During your visit today, we recorded the following information about you: Radha Nichols LPN 06/03/2025 11:14 AM Signed Received results CMP/CBC from [facility], Delma Garcia HOSPICE MASSAGE THERAPIST looked @ results, informed she did not order the testing , but pt. Has worsening kidney function and needs to see [employer]. Spoke with Nursing on [address] [place] [address] Chang ordered the testing, and they needed to be sure he received the results. Voiced understanding and will fax results to director multimedia. Radha Nichols LPN Allergies As of Date: [...] at bedtime. - sodium phosphate,mono-dibasic (FLEET ENEMA [place]) 1 suppository by RECTAL route as needed. [...] examination [Z01.818] 03/23/2024 Coronary artery disease involving [facility] enrique*03/23/2024 HTN (hypertension) [I10] 03/23/2024 Mixed hyperlipidemia [E78.2] 03/23/2024 Subdural hemorrhage (HCC) [I62.00] 06/18/2024 SDH (subdural hematoma) (HCC) [S06.5XAA] 06/18/2024 Fall [W19.XXXA] 06/19/2024 Age-related osteoporosis without current pathol*04/13/2024 Dependence on renal dialysis (HCC) [Z99.2] 04/07/2024 06/24/2024 Chronic anemia [D64.9] 06/19/2024 Hyponatremia [E87.1] 06/19/2024 06/24/2024 Encounter Status:Closed by RADHA NICHOLS on 06/03/25 Normal [facility] Protein+Creatinine Ratio,Uri neon 06-03-2025 PROT:CRE RATIO 2055 mg/g CRE High 0-200 [facility] Comment on above: Performed By: #### L 400.0001, L501.0900 ####[facility] [address] [place], [address] Protein (U) [Mass/Vol] 126.0 mg/dL High 0.0-12.0 [facility] Comment on above: Performed By: #### L 400.0001, L501.0900 ####[facility] [address] [place], [address] UR CREAT 61.30 mg/dL Normal 28.00-217.0 0 [facility] Comment on above: Performed By: #### L 400.0001, L501.0900 ####[facility] [address] [place], [address] Urinalysis, Completeon 06-03 BACTERIA RARE Normal None Seen [facility] Comment on above: Order Comment: Urine , Random Performed By: #### L 400.0001, L501.0900 ####[facility] [address] [place], [address] EPI,SQUAMOUS 5-10 SEEN Normal 5-10 [facility] Comment on above: Order Comment: Urine , Random Performed By: #### L 400.0001, L501.0900 ####[facility] [address] [place], [address] RBC 5-10 SEEN Normal 0-5 [facility] Comment on above: Order Comment: Urine , Random Performed By: #### L 400.0001, L501.0900 ####[facility] [address] [place], [address] WBC 50-100 SEEN Normal 0-5 [facility] Comment on above: Order Comment: Urine , Random Performed By: #### L 400.0001, L501.0900 ####[facility] [address] [place], [address] Mucus Ql (Urine sed) 0 SEEN Normal [facility] Comment on above: Order Comment: Urine , Random Performed By: #### L 400.0001, L501.0900 ####[facility] [address] [place], [address] Anion gap in Serum or Plasma Ordered By: [facility] on 06-01-2025 Anion gap [Moles/Vol] 16 mmol/L High 5-15 [facility] BUN/creatinine ratioOrdered By: [facility] on 06-01-2025 Urea nitrogen/Creatinine [Mass ratio] 13.8 mg/mg 10-20 [facility] Bilirubin, totalOrdered By: [facility] on 06-01-2025 Bilirubin [Mass/Vol] 0.24 mg/dL 0.00-1.30 [facility] CBC-Complete Blood Cnt No Di ffon 06-01-2025 Erythrocyte distribution width (RBC) [Ratio] 13.2 % Normal 11.6-14.6 [facility] Comment on above: Order Comment: 516.1 Performed By: #### L 100.0500, L500.4050, L501.2300 ####[facility] [address] [place], [address] Hematocrit (Bld) [Volume fraction] 26.0 % Low 37-47 [facility] Comment on above: Order Comment: 516.1 Performed By: #### L 100.0500, L500.4050, L501.2300 ####[facility] [address] [place], [address] Hemoglobin (Bld) [Mass/Vol] 8.4 g/dL Low 12.0-15.0 [facility] Comment on above: Order Comment: 516.1 Performed By: #### L 100.0500, L500.4050, L501.2300 ####[facility] [address] [place], [address] MCH (RBC) [Entitic mass] 31.7 pg Normal 27.0-32.0 [facility] Comment on above: Order Comment: 516.1 Performed By: #### L 100.0500, L500.4050, L501.2300 ####[facility] [address] [place], [address] MCHC (RBC) [Mass/Vol] 32.3 g/dL Normal 32-36 [facility] Comment on above: Order Comment: 516.1 Performed By: #### L 100.0500, L500.4050, L501.2300 ####[facility] [address] [place], [address] MCV (RBC) [Entitic vol] 98.1 fL Normal 81-99 [facility] Comment on above: Order Comment: 516.1 Performed By: #### L 100.0500, L500.4050, L501.2300 ####[facility] [address] [place], [address] Platelet mean volume (Bld) [Entitic vol] 10.9 fL Normal 6.2-12.0 [facility] Comment on above: Order Comment: 516.1 Performed By: #### L 100.0500, L500.4050, L501.2300 ####[facility] [address] [place], [address] Platelets (Bld) [#/Vol] 308 10*3/uL Normal 150-450 [facility] Comment on above: Order Comment: 516.1 Performed By: #### L 100.0500, L500.4050, L501.2300 ####[facility] [address] [place], [address] RBC (Bld) [#/Vol] 2.65 10*6/uL Low 4.2-5.4 [facility] Comment on above: Order Comment: 516.1 Performed By: #### L 100.0500, L500.4050, L501.2300 ####[facility] [address] [place], [address] RDW SD 46.5 fl High 35.1-43.9 [facility] Comment on above: Order Comment: 516.1 Performed By: #### L 100.0500, L500.4050, L501.2300 ####[facility] [address] [place], [address] WBC (Bld) [#/Vol] 10.1 10*3/uL Normal 4.4-11.0 [facility] Comment on above: Order Comment: 516.1 Performed By: #### L 100.0500, L500.4050, L501.2300 ####[facility] [address] [place], [address] Carbon dioxide, total [Moles /volume] in Central venous bloodOrdered By: [facility] on 06-01-2025 CO2 [Moles/Vol] 19.1 mmol/L Low 21.0-32.0 [facility] Chloride assayOrdered By: [facility] on 06-01-2025 Chloride [Moles/Vol] 105 mmol/L 98-108 [facility] Comprehensive Metabolic Prof ilon 06-01-2025 Albumin [Mass/Vol] 4.2 g/dL Normal 3.4-4.8 [facility] Comment on above: Order Comment: 516.1 Performed By: #### L 100.0500, L500.4050, L501.2300 ####[facility] [address] [place], [address] Albumin/Globulin [Mass ratio] 1.8 {ratio} Normal 0.9-2.4 [facility] Comment on above: Order Comment: 516.1 Performed By: #### L 100.0500, L500.4050, L501.2300 ####[facility] [address] [place], [address] ALK PHOS 82 U/L Normal 35-104 [facility] Comment on above: Order Comment: 516.1 Performed By: #### L 100.0500, L500.4050, L501.2300 ####[facility] [address] [place], [address] ALT [Catalytic activity/Vol] 15 U/L Normal <=34 [facility] Comment on above: Order Comment: 516.1 Performed By: #### L 100.0500, L500.4050, L501.2300 ####[facility] [address] [place], [address] AST [Catalytic activity/Vol] 15 U/L Normal <=31 [facility] Comment on above: Order Comment: 516.1 Performed By: #### L 100.0500, L500.4050, L501.2300 ####[facility] [address] [place], [address] Bilirubin [Mass/Vol] 0.24 mg/dL Normal 0.00-1.30 [facility] Comment on above: Order Comment: 516.1 Performed By: #### L 100.0500, L500.4050, L501.2300 ####[facility] [address] [place], [address] BUN/CRE 13.8 RATIO Normal 10-20 [facility] Comment on above: Order Comment: 516.1 Performed By: #### L 100.0500, L500.4050, L501.2300 ####[facility] [address] [place], [address] Calcium [Mass/Vol] 9.3 mg/dL Normal 7.6-11.0 [facility] Comment on above: Order Comment: 516.1 Performed By: #### L 100.0500, L500.4050, L501.2300 ####[facility] [address] [place], [address] Chloride [Moles/Vol] 105 mmol/L Normal 98-108 [facility] Comment on above: Order Comment: 516.1 Performed By: #### L 100.0500, L500.4050, L501.2300 ####[facility] [address] [place], [address] CO2 [Moles/Vol] 19.1 mmol/L Low 21.0-32.0 [facility] Comment on above: Order Comment: 516.1 Performed By: #### L 100.0500, L500.4050, L501.2300 ####[facility] [address] [place], [address] Creatinine [Mass/Vol] 4.42 mg/dL High 0.70-1.20 [facility] Comment on above: Order Comment: 516.1 Performed By: #### L 100.0500, L500.4050, L501.2300 ####[facility] [address] [place], [address] GAP 16 High 5-15 [facility] Comment on above: Order Comment: 516.1 Performed By: #### L 100.0500, L500.4050, L501.2300 ####[facility] [address] [place], [address] GFR/1.73 sq M.predicted among non-blacks MDRD (S/P/Bld) [Vol rate/Area] 10 mL/min/{1.73_m2} Low >60 [facility] Comment on above: Order Comment: 516.1 Result Comment: mL/m in/1.73m2 CKD-EPI Creatinine Equation (2020) Performed By: #### L 100.0500, L500.4050, L501.2300 ####[facility] [address] [place], [address] Globulin (S) [Mass/Vol] 2.3 g/dL Normal 2.2-4.2 [facility] Comment on above: Order Comment: 516.1 Performed By: #### L 100.0500, L500.4050, L501.2300 ####[facility] [address] [place], [address] Glucose [Mass/Vol] 132 mg/dL High 70-99 [facility] Comment on above: Order Comment: 516.1 Performed By: #### L 100.0500, L500.4050, L501.2300 ####[facility] [address] [place], [address] Potassium [Moles/Vol] 3.9 mmol/L Normal 3.3-5.1 [facility] Comment on above: Order Comment: 516.1 Performed By: #### L 100.0500, L500.4050, L501.2300 ####[facility] [address] [place], [address] Sodium [Moles/Vol] 141 mmol/L Normal 133-145 [facility] Comment on above: Order Comment: 516.1 Performed By: #### L 100.0500, L500.4050, L501.2300 ####[facility] [address] [place], [address] T PROT 6.5 g/dL Normal 5.9-8.4 [facility] Comment on above: Order Comment: 516.1 Performed By: #### L 100.0500, L500.4050, L501.2300 ####[facility] [address] [place], [address] Urea nitrogen [Mass/Vol] 61 mg/dL High 4-19 [facility] Comment on above: Order Comment: 516.1 Performed By: #### L 100.0500, L500.4050, L501.2300 ####[facility] [address] [place], [address] Erythrocyte distribution wid th ratioOrdered By: [facility] on 06-01-2025 Erythrocyte distribution width (RBC) [Ratio] 13.2 % 11.6-14.6 [facility] Erythrocyte distribution wid th standard deviationOrdered By: [facility] on 06-01-2025 Erythrocyte distribution width (RBC) [Ratio] 46.5 fl High 35.1-43.9 [facility] Glomerular filtration rate ( GFR) estimation/1.73 sq m using serum, plasma, or whole bOrdered By: [facility] on 06-01-2025 GFR/1.73 sq M.predicted among non-blacks MDRD (S/P/Bld) [Vol rate/Area] 10 mL/min/{1.73_m2} Low >60 [facility] Comment on above: mL/min/1.73m2 CKD-EP I Creatinine Equation (2020) Hematocrit Auto (Bld) [Volum e fraction]Ordered By: [facility] on 06-01-2025 Hematocrit (Bld) [Volume fraction] 26.0 % Low 37-47 [facility] Hemoglobin measurementOrdere d By: [facility] on 06-01-2025 Hemoglobin (Bld) [Mass/Vol] 8.4 g/dL Low 12.0-15.0 [facility] Laboratory - Chemistry and C hemistry - challengeOrdered By: [facility] on 06-01-2025 AST [Catalytic activity/Vol] 15 U/L <32 [facility] MCV (mean corpuscular volume ) determinationOrdered By: [facility] on 06-01-2025 MCV (RBC) [Entitic vol] 98.1 fL 81-99 [facility] Mean corpuscular hemoglobin (MCH) determinationOrdered By: [facility] on 06-01-2025 MCH (RBC) [Entitic mass] 31.7 pg 27.0-32.0 [facility] Mean corpuscular hemoglobin concentration (MCHC) determinationOrdered By: [facility] on 06-01-2025 MCHC (RBC) [Mass/Vol] 32.3 g/dL 32-36 [facility] Mean platelet volume determi nationOrdered By: [facility] on 06-01-2025 Platelet mean volume (Bld) [Entitic vol] 10.9 fL 6.2-12.0 [facility] Phosphoruson 06-01-2025 Phosphate [Mass/Vol] 5.2 mg/dL High 2.7-4.5 [facility] Comment on above: Order Comment: 516.1 Performed By: #### L 100.0500, L500.4050, L501.2300 ####[facility] [address] [place], [address] Platelet countOrdered By: [facility] on 06-01-2025 Platelets (Bld) [#/Vol] 308 10*3/uL 150-450 [facility] Potassium measurement (mass/ volume)Ordered By: [facility] on 06-01-2025 Potassium (Unsp spec) [Mass/Vol] 3.9 mmol/L 3.3-5.1 [facility] RBC Auto (Bld) [#/Vol]Ordere d By: [facility] on 06-01-2025 RBC (Bld) [#/Vol] 2.65 10*6/uL Low 4.2-5.4 [facility] Serum creatinine measurement (mass/volume)Ordered By: [facility] on 06-01-2025 Creatinine [Mass/Vol] 4.42 mg/dL High 0.70-1.20 [facility] Serum globulin measurementOr dered By: [facility] on 06-01-2025 Globulin (S) [Mass/Vol] 2.3 g/dL 2.2-4.2 [facility] Serum glucose measurement (m ass/volume)Ordered By: [facility] on 06-01-2025 Glucose [Mass/Vol] 132 mg/dL High 70-99 [facility] Serum or plasma alanine mckeon otransferase (ALT) measurementOrdered By: [facility] on 06-01-2025 ALT [Catalytic activity/Vol] 15 U/L <35 [facility] Serum or plasma albumin yamil urement (mass/volume)Ordered By: [facility] on 06-01-2025 Albumin [Mass/Vol] 4.2 g/dL 3.4-4.8 [facility] Serum or plasma albumin/glob ulin mass ratioOrdered By: [facility] on 06-01-2025 Albumin/Globulin [Mass ratio] 1.8 {ratio} 0.9-2.4 [facility] Serum or plasma alkaline anthony sphatase measurementOrdered By: [facility] on 06-01-2025 ALP [Catalytic activity/Vol] 82 U/L 35-104 [facility] Serum or plasma calcium yamil urement (mass/volume)Ordered By: [facility] on 06-01-2025 Calcium [Mass/Vol] 9.3 mg/dL 7.6-11.0 [facility] Serum or plasma urea nitroge n measurement (mass/volume)Ordered By: [facility] on 06-01-2025 Urea nitrogen [Mass/Vol] 61 mg/dL High 4-19 [facility] Sodium levelOrdered By: [facility] on 06-01-2025 Sodium [Moles/Vol] 141 mmol/L 133-145 [facility] Total proteinOrdered By: [facility] on 06-01-2025 Protein [Mass/Vol] 6.5 g/dL 5.9-8.4 [facility] White blood cell (WBC) count Ordered By: [facility] on 06-01-2025 WBC (Bld) [#/Vol] 10.1 10*3/uL 4.4-11.0 [facility] Folates, RBCon 05-25-2025 Fol.,Hemolysate > 620.0 Normal Not Estab. [facility] Comment on above: Order Comment: Test( s) 673046-Wwyghdp B6was developed and its performance characteristicsdetermined by [employer]. It has not been cleared or approvedby the Food and Drug Administration. Performed By: #### L 503.0106, L503.5510, L101.9900, L3300.0960, L3100.5450, L3300.8200, L3300.8000, L3130.0010, L3100.1725, L501.9520, L503.6150, L503.6550, L501.5200 ####[facility] [address] [place], [address] Folate, RBC > 2385 Normal >498 [facility] Comment on above: Order Comment: Test( s) 422518-Mqklfyo B6was developed and its performance characteristicsdetermined by [employer]. It has not been cleared or approvedby the Food and Drug Administration. Performed By: #### L 503.0106, L503.5510, L101.9900, L3300.0960, L3100.5450, L3300.8200, L3300.8000, L3130.0010, L3100.1725, L501.9520, L503.6150, L503.6550, L501.5200 ####[facility] [address] [place], [place], [address] Hematocrit (Bld) [Volume fraction] 26.0 % Low 34.0-46.6 [facility] Comment on above: Order Comment: Test( s) 240792-Svodhyn B6was developed and its performance characteristicsdetermined by [employer]. It has not been cleared or approvedby the Food and Drug Administration. Performed By: #### L 503.0106, L503.5510, L101.9900, L3300.0960, L3100.5450, L3300.8200, L3300.8000, L3130.0010, L3100.1725, L501.9520, L503.6150, L503.6550, L501.5200 ####[facility] [address] [place], [address] Concepcion Lambda Light Chainson 05-25-2025 FR KAPPA LT CHN 41.4 mg/L Abnormal 3.3-19.4 [facility] Comment on above: Order Comment: Test( s) 290190-Iqcukgb B6was developed and its performance characteristicsdetermined by [employer]. It has not been cleared or approvedby the Food and Drug Administration. Performed By: #### L 503.0106, L503.5510, L101.9900, L3300.0960, L3100.5450, L3300.8200, L3300.8000, L3130.0010, L3100.1725, L501.9520, L503.6150, L503.6550, L501.5200 ####[facility] [address] [place], [address] FR LAMBDA LT CH 34.3 mg/L Abnormal 5.7-26.3 [facility] Comment on above: Order Comment: Test( s) 452729-Fxkxsof B6was developed and its performance characteristicsdetermined by [employer]. It has not been cleared or approvedby the Food and Drug Administration. Performed By: #### L 503.0106, L503.5510, L101.9900, L3300.0960, L3100.5450, L3300.8200, L3300.8000, L3130.0010, L3100.1725, L501.9520, L503.6150, L503.6550, L501.5200 ####[facility] [address] [place], [address] KAPPA/LAMBDA % 1.21 Normal 0.26-1.65 [facility] Comment on above: Order Comment: Test( s) 877057-Wnakrpf B6was developed and its performance characteristicsdetermined by [employer]. It has not been cleared or approvedby the Food and Drug Administration. Performed By: #### L 503.0106, L503.5510, L101.9900, L3300.0960, L3100.5450, L3300.8200, L3300.8000, L3130.0010, L3100.1725, L501.9520, L503.6150, L503.6550, L501.5200 ####[facility] [address] [place], [address] L3300.8200on 05-25-2025 VITAMIN B6 41.6 ug/L Normal 3.4-65.2 [facility] Comment on above: Order Comment: Test( s) 229105-Okbxlbj B6was developed and its performance characteristicsdetermined by [employer]. It has not been cleared or approvedby the Food and Drug Administration. Result Comment: Ve rified by repeat analysis Deficiency: <3.4 Marginal: 3.4 - 5.1 Adequate: >5.1 Performed By: #### L 503.0106, L503.5510, L101.9900, L3300.0960, L3100.5450, L3300.8200, L3300.8000, L3130.0010, L3100.1725, L501.9520, L503.6150, L503.6550, L501.5200 ####[facility] [address] [facility] [place], [address] Vitamin B1, Thiamineon 05-25 VIT B1 THIAMINE 164.7 nmol/L Normal 66.5-200.0 [facility] Comment on above: Order Comment: Test( s) 132897-Fhezyuk B6was developed and its performance characteristicsdetermined by [employer]. It has not been cleared or approvedby the Food and Drug Administration. Result Comment: Perf ormed at: - [facility] [id number] Director: Hussein Aguilar PhD, Phone: [phone] at: - [facility] [id number] Director: Rk Petty MD, Phone: [phone] Performed By: #### L 503.0106, L503.5510, L101.9900, L3300.0960, L3100.5450, L3300.8200, L3300.8000, L3130.0010, L3100.1725, L501.9520, L503.6150, L503.6550, L501.5200 ####[facility] [address] [place], [place], [address] VINI w/ Reflex Mult Confirmon 05-21-2025 ANTI-DNA (DS)AB TNP Normal [facility] Comment on above: Performed By: #### L 503.0106, L503.5510, L101.9900, L3300.0960, L3100.5450, L3300.8200, L3300.8000, L3130.0010, L3100.1725, L501.9520, L503.6150, L503.6550, L501.5200 ####[facility] [address] [place], [place], [address] ANTI-SS-A TNP Normal [facility] Comment on above: Performed By: #### L 503.0106, L503.5510, L101.9900, L3300.0960, L3100.5450, L3300.8200, L3300.8000, L3130.0010, L3100.1725, L501.9520, L503.6150, L503.6550, L501.5200 ####[facility] [address] [place], [place], [address] ANTI-SS-B TNP Normal [facility] Comment on above: Performed By: #### L 503.0106, L503.5510, L101.9900, L3300.0960, L3100.5450, L3300.8200, L3300.8000, L3130.0010, L3100.1725, L501.9520, L503.6150, L503.6550, L501.5200 ####[facility] [address] [place], [place], [address] Vitamin D 1,25-Dihydroxyon 0 05-21-2025 VIT D 1,25 DIHY 20.8 pg/mL Abnormal 24.8-81.5 [facility] Comment on above: Performed By: #### L 503.0106, L503.5510, L101.9900, L3300.0960, L3100.5450, L3300.8200, L3300.8000, L3130.0010, L3100.1725, L501.9520, L503.6150, L503.6550, L501.5200 ####[facility] [address] [place], [place], [address] Ammoniaon 05-17-2025 Ammonia (P) [Moles/Vol] 16.9 umol/L Normal 11-51 [facility] Comment on above: Performed By: #### L 503.0106, L503.5510, L101.9900, L3300.0960, L3100.5450, L3300.8200, L3300.8000, L3130.0010, L3100.1725, L501.9520, L503.6150, L503.6550, L501.5200 ####[facility] [address] [place], [place], [address] Erythrocyte Sed Rateon 05-17 SED RATE 6 mm/hr Normal 0-30 [facility] [facility] Comment on above: Performed By: #### L 503.0106, L503.5510, L101.9900, L3300.0960, L3100.5450, L3300.8200, L3300.8000, L3130.0010, L3100.1725, L501.9520, L503.6150, L503.6550, L501.5200 ####[facility] [address] [place], [place], [id number] Erythrocyte folate measureme nt with hematocritOrdered By: Giovanny Brady on 05-17-2025 Hematocrit (Bld) [Volume fraction] 26.0 % Low 34.0-46.6 [facility] Erythrocyte sedimentation ra teOrdered By: Giovanny Brady on 05-17-2025 ESR (Bld) [Velocity] 6 mm/h 0-30 [facility] Ferritinon 05-17-2025 Ferritin [Mass/Vol] 936 ng/mL High 22-378 [facility] Comment on above: Performed By: #### L 503.0106, L503.5510, L101.9900, L3300.0960, L3100.5450, L3300.8200, L3300.8000, L3130.0010, L3100.1725, L501.9520, L503.6150, L503.6550, L501.5200 ####[facility] [address] [place], [place], [id number] Ironon 05-17-2025 Iron [Mass/Vol] 106 ug/dL Normal 50-170 [facility] Comment on above: Performed By: #### L 503.0106, L503.5510, L101.9900, L3300.0960, L3100.5450, L3300.8200, L3300.8000, L3130.0010, L3100.1725, L501.9520, L503.6150, L503.6550, L501.5200 ####[facility] [address] [place], [place], [id number] Iron measurement (mass/mass) Ordered By: Giovanny Brady on 05-17-2025 Iron (Unsp spec) [Mass/Mass] 106 ug/dL 50-170 [facility] Magnesiumon 05-17-2025 Magnesium [Mass/Vol] 2.2 mg/dL Normal 1.5-2.2 [facility] Comment on above: Performed By: #### L 503.0106, L503.5510, L101.9900, L3300.0960, L3100.5450, L3300.8200, L3300.8000, L3130.0010, L3100.1725, L501.9520, L503.6150, L503.6550, L501.5200 ####[facility] [address] [place], [address] Magnesium measurement (mass/ volume)Ordered By: Giovanny Brady on 05-17-2025 Magnesium (Unsp spec) [Mass/Vol] 2.2 mg/dL 1.5-2.2 [facility] Neurology Visit Reporton Neurology Visit Report Normal [facility] Serum DNA double strand anti body assay (units/volume)Ordered By: Giovanny Brady on 05-17-2025 DNA double strand Ab Qn (S) DEP [facility] Comment on above: Test not performed Serum Scl-70 antibody assay (units/volume)Ordered By: Giovanny Brady on 05-17-2025 SCL-70 extractable nuclear Ab Qn (S) [facility] Comment on above: Test not performed Serum immunoglobulin kappa l ight chains/immunoglobulin lambda light chains mass ratioOrdered By: Giovanny Brady on 05-17-2025 Immunoglobulin light chains.kappa/Immunoglo bulin light chains.lambda (S) [Mass ratio] 1.21 0.26-1.65 [facility] Serum or plasma calcitriol m easurement (mass/volume)Ordered By: Giovanny Brady on 05-17-2025 1,25-dihydroxyvitamin D3 [Mass/Vol] 20.8 pg/mL Low 24.8-81.5 [facility] Serum or plasma ferritin maris surement (mass/volume)Ordered By: Giovanny Brady on 05-17-2025 Ferritin [Mass/Vol] 936 ng/mL High 22-378 [facility] Serum or plasma immunoglobul in kappa light chains measurement (mass/volume)Ordered By: Giovanny Brady on 05-17-2025 Immunoglobulin light chains.kappa [Mass/Vol] 41.4 mg/L High 3.3-19.4 [facility] Serum or plasma thiamine maris surement (mass/volume)Ordered By: Giovanny Brady on 05-17-2025 Thiamine [Mass/Vol] 164.7 nmol/L 66.5-200.0 [facility] Comment on above: Performed at: [address] [place], [place] [id number] Director: Hussein Aguilar PhD, Phone: [phone] at: [address] [id number] Director: Rk Petty MD, Phone: [phone] TSH DL <= 0.005 mIU/L QnOrde red By: Giovanny Brady on 05-17-2025 TSH Qn 2.250 uIU/mL 0.300-4.200 [facility] Thyroid Stim Hormone (TSH)on 05-17-2025 TSH 2.250 uIU/mL Normal 0.300-4.200 [facility] Comment on above: Performed By: #### L 503.0106, L503.5510, L101.9900, L3300.0960, L3100.5450, L3300.8200, L3300.8000, L3130.0010, L3100.1725, L501.9520, L503.6150, L503.6550, L501.5200 ####[facility] [address] [facility] [place], [address] Venous blood ammonia measure mentOrdered By: Giovanny Brady on 05-17-2025 Ammonia (P) [Moles/Vol] 16.9 umol/L 11-51 [facility] Vitamin B12on 05-17-2025 Cobalamin (Vitamin B12) [Mass/Vol] 676 pg/mL Normal 180-914 [facility] Comment on above: Performed By: #### L 503.0106, L503.5510, L101.9900, L3300.0960, L3100.5450, L3300.8200, L3300.8000, L3130.0010, L3100.1725, L501.9520, L503.6150, L503.6550, L501.5200 ####[facility] [address] [place], [place], [id number] Vitamin B12 ser/plasOrdered By: Giovanny Brady on 05-17-2025 Cobalamin (Vitamin B12) [Mass/Vol] 676 pg/mL 180-914 [facility] Anion gap in Serum or Plasma Ordered By: Bonnie Chang on 05-04-2025 Anion gap [Moles/Vol] 15 mmol/L 5-15 [facility] BUN/creatinine ratioOrdered By: Bonnie Chang on 05-04-2025 Urea nitrogen/Creatinine [Mass ratio] 11.7 mg/mg 10-20 [facility] Bilirubin, totalOrdered By: Bonnie Chang on 05-04-2025 Bilirubin [Mass/Vol] 0.27 mg/dL 0.00-1.30 [facility] CBC-Complete Blood Cnt No Di ffon 05-04-2025 Erythrocyte distribution width (RBC) [Ratio] 12.6 % Normal 11.6-14.6 [facility] Comment on above: Order Comment: 516-1 Performed By: #### L 500.4050, L501.2300, L100.0500 ####[facility] [address] [place], [address] Hematocrit (Bld) [Volume fraction] 25.9 % Low 37-47 [facility] Comment on above: Order Comment: 516-1 Performed By: #### L 500.4050, L501.2300, L100.0500 ####[facility] [address] [place], [address] Hemoglobin (Bld) [Mass/Vol] 8.5 g/dL Low 12.0-15.0 [facility] Comment on above: Order Comment: 516-1 Performed By: #### L 500.4050, L501.2300, L100.0500 ####[facility] [address] [place], [address] MCH (RBC) [Entitic mass] 31.5 pg Normal 27.0-32.0 [facility] Comment on above: Order Comment: 516-1 Performed By: #### L 500.4050, L501.2300, L100.0500 ####[facility] [address] [place], [address] MCHC (RBC) [Mass/Vol] 32.8 g/dL Normal 32-36 [facility] Comment on above: Order Comment: 516-1 Performed By: #### L 500.4050, L501.2300, L100.0500 ####[facility] [address] [place], [address] MCV (RBC) [Entitic vol] 95.9 fL Normal 81-99 [facility] Comment on above: Order Comment: 516-1 Performed By: #### L 500.4050, L501.2300, L100.0500 ####[facility] [address] [place], [address] Platelet mean volume (Bld) [Entitic vol] 10.8 fL Normal 6.2-12.0 [facility] Comment on above: Order Comment: 516-1 Performed By: #### L 500.4050, L501.2300, L100.0500 ####[facility] [address] [place], [address] Platelets (Bld) [#/Vol] 301 10*3/uL Normal 150-450 [facility] Comment on above: Order Comment: 516-1 Performed By: #### L 500.4050, L501.2300, L100.0500 ####[facility] [address] [place], [address] RBC (Bld) [#/Vol] 2.70 10*6/uL Low 4.2-5.4 [facility] Comment on above: Order Comment: 516-1 Performed By: #### L 500.4050, L501.2300, L100.0500 ####[facility] [address] [place], [address] RDW SD 43.2 fl Normal 35.1-43.9 [facility] Comment on above: Order Comment: 516-1 Performed By: #### L 500.4050, L501.2300, L100.0500 ####[facility] [address] [place], [address] WBC (Bld) [#/Vol] 8.4 10*3/uL Normal 4.4-11.0 [facility] Comment on above: Order Comment: 516-1 Performed By: #### L 500.4050, L501.2300, L100.0500 ####[facility] [address] [place], [address] Carbon dioxide, total [Moles /volume] in Central venous bloodOrdered By: Bonnie Chang on 05-04-2025 CO2 [Moles/Vol] 21.5 mmol/L 21.0-32.0 [facility] Chloride assayOrdered By: Nick Chang on 05-04-2025 Chloride [Moles/Vol] 103 mmol/L 98-108 [facility] Comprehensive Metabolic Prof ilon 05-04-2025 Albumin [Mass/Vol] 4.2 g/dL Normal 3.4-4.8 [facility] Comment on above: Order Comment: 516-1 Performed By: #### L 500.4050, L501.2300, L100.0500 ####[facility] [address] [place], [address] Albumin/Globulin [Mass ratio] 1.9 {ratio} Normal 0.9-2.4 [facility] Comment on above: Order Comment: 516-1 Performed By: #### L 500.4050, L501.2300, L100.0500 ####[facility] [address] [place], [address] ALK PHOS 78 U/L Normal 35-104 [facility] Comment on above: Order Comment: 516-1 Performed By: #### L 500.4050, L501.2300, L100.0500 ####[facility] [address] [place], [address] ALT [Catalytic activity/Vol] 14 U/L Normal <=34 [facility] Comment on above: Order Comment: 516-1 Performed By: #### L 500.4050, L501.2300, L100.0500 ####[facility] [address] [place], [address] AST [Catalytic activity/Vol] 16 U/L Normal <=31 [facility] Comment on above: Order Comment: 516-1 Performed By: #### L 500.4050, L501.2300, L100.0500 ####[facility] [address] [place], [address] Bilirubin [Mass/Vol] 0.27 mg/dL Normal 0.00-1.30 [facility] Comment on above: Order Comment: 516-1 Performed By: #### L 500.4050, L501.2300, L100.0500 ####[facility] [address] [place], [address] BUN/CRE 11.7 RATIO Normal 10-20 [facility] Comment on above: Order Comment: 516-1 Performed By: #### L 500.4050, L501.2300, L100.0500 ####[facility] [address] [place], [address] Calcium [Mass/Vol] 9.1 mg/dL Normal 7.6-11.0 [facility] Comment on above: Order Comment: 516-1 Performed By: #### L 500.4050, L501.2300, L100.0500 ####[facility] [address] [place], [address] Chloride [Moles/Vol] 103 mmol/L Normal 98-108 [facility] Comment on above: Order Comment: 516-1 Performed By: #### L 500.4050, L501.2300, L100.0500 ####[facility] [address] [place], [address] CO2 [Moles/Vol] 21.5 mmol/L Normal 21.0-32.0 [facility] Comment on above: Order Comment: 516-1 Performed By: #### L 500.4050, L501.2300, L100.0500 ####[facility] [address] [place], [address] Creatinine [Mass/Vol] 4.78 mg/dL High 0.70-1.20 [facility] Comment on above: Order Comment: 516-1 Performed By: #### L 500.4050, L501.2300, L100.0500 ####[facility] [address] [place], [address] GAP 15 Normal 5-15 [facility] Comment on above: Order Comment: 516-1 Performed By: #### L 500.4050, L501.2300, L100.0500 ####[facility] [address] [place], [address] GFR/1.73 sq M.predicted among non-blacks MDRD (S/P/Bld) [Vol rate/Area] 9 mL/min/{1.73_m2} Low >60 [facility] Comment on above: Order Comment: 516-1 Result Comment: mL/m in/1.73m2 CKD-EPI Creatinine Equation (2020) Performed By: #### L 500.4050, L501.2300, L100.0500 ####[facility] [address] [place], [address] Globulin (S) [Mass/Vol] 2.3 g/dL Normal 2.2-4.2 [facility] Comment on above: Order Comment: 516-1 Performed By: #### L 500.4050, L501.2300, L100.0500 ####[facility] [address] [place], [address] Glucose [Mass/Vol] 131 mg/dL High 70-99 [facility] Comment on above: Order Comment: 516-1 Performed By: #### L 500.4050, L501.2300, L100.0500 ####[facility] [address] [place], [address] Potassium [Moles/Vol] 3.6 mmol/L Normal 3.3-5.1 [facility] Comment on above: Order Comment: 516-1 Performed By: #### L 500.4050, L501.2300, L100.0500 ####[facility] [address] [place], [address] Sodium [Moles/Vol] 140 mmol/L Normal 133-145 [facility] Comment on above: Order Comment: 516-1 Performed By: #### L 500.4050, L501.2300, L100.0500 ####[facility] [address] [place], [address] T PROT 6.5 g/dL Normal 5.9-8.4 [facility] Comment on above: Order Comment: 516-1 Performed By: #### L 500.4050, L501.2300, L100.0500 ####[facility] [address] [place], [address] Urea nitrogen [Mass/Vol] 56 mg/dL High 4-19 [facility] Comment on above: Order Comment: 516-1 Performed By: #### L 500.4050, L501.2300, L100.0500 ####[facility] [address] [place], [address] Erythrocyte distribution wid th ratioOrdered By: Bonnie Chang on 05-04-2025 Erythrocyte distribution width (RBC) [Ratio] 12.6 % 11.6-14.6 [facility] Erythrocyte distribution wid th standard deviationOrdered By: Bonnie Chang on 05-04-2025 Erythrocyte distribution width (RBC) [Ratio] 43.2 fl 35.1-43.9 [facility] Glomerular filtration rate ( GFR) estimation/1.73 sq m using serum, plasma, or whole bOrdered By: Bonnie Chang on 05-04-2025 GFR/1.73 sq M.predicted among non-blacks MDRD (S/P/Bld) [Vol rate/Area] 9 mL/min/{1.73_m2} Low >60 [facility] Comment on above: mL/min/1.73m2 CKD-EP I Creatinine Equation (2020) Hematocrit Auto (Bld) [Volum e fraction]Ordered By: Bonnie Chang on 05-04-2025 Hematocrit (Bld) [Volume fraction] 25.9 % Low 37-47 [facility] Hemoglobin measurementOrdere d By: Bonnie Chang on 05-04-2025 Hemoglobin (Bld) [Mass/Vol] 8.5 g/dL Low 12.0-15.0 [facility] Laboratory - Chemistry and C hemistry - challengeOrdered By: Bonnie Chang on 05-04-2025 AST [Catalytic activity/Vol] 16 U/L <32 [facility] MCV (mean corpuscular volume ) determinationOrdered By: Bonnie Chang on 05-04-2025 MCV (RBC) [Entitic vol] 95.9 fL 81-99 [facility] Mean corpuscular hemoglobin (MCH) determinationOrdered By: Bonnie Chang on 05-04-2025 MCH (RBC) [Entitic mass] 31.5 pg 27.0-32.0 [facility] Mean corpuscular hemoglobin concentration (MCHC) determinationOrdered By: Bonnie Chang on 05-04-2025 MCHC (RBC) [Mass/Vol] 32.8 g/dL 32-36 [facility] Mean platelet volume determi nationOrdered By: Bonnie Chang on 05-04-2025 Platelet mean volume (Bld) [Entitic vol] 10.8 fL 6.2-12.0 [facility] Phosphoruson 05-04-2025 Phosphate [Mass/Vol] 4.8 mg/dL High 2.7-4.5 [facility] Comment on above: Order Comment: 516-1 Performed By: #### L 500.4050, L501.2300, L100.0500 ####[facility] [address] [place], [address] Platelet countOrdered By: Nick Chang on 05-04-2025 Platelets (Bld) [#/Vol] 301 10*3/uL 150-450 [facility] Potassium measurement (mass/ volume)Ordered By: Bonnie Chang on 05-04-2025 Potassium (Unsp spec) [Mass/Vol] 3.6 mmol/L 3.3-5.1 [facility] RBC Auto (Bld) [#/Vol]Ordere d By: Bonnie Chang on 05-04-2025 RBC (Bld) [#/Vol] 2.70 10*6/uL Low 4.2-5.4 [facility] Serum creatinine measurement (mass/volume)Ordered By: Bonnie Chang on 05-04-2025 Creatinine [Mass/Vol] 4.78 mg/dL High 0.70-1.20 [facility] Serum globulin measurementOr dered By: Bonnie Chang on 05-04-2025 Globulin (S) [Mass/Vol] 2.3 g/dL 2.2-4.2 [facility] Serum glucose measurement (m ass/volume)Ordered By: Bonnie Chang on 05-04-2025 Glucose [Mass/Vol] 131 mg/dL High 70-99 [facility] Serum or plasma alanine mckeon otransferase (ALT) measurementOrdered By: Bonnie Chang on 05-04-2025 ALT [Catalytic activity/Vol] 14 U/L <35 [facility] Serum or plasma albumin yamil urement (mass/volume)Ordered By: Bonnie Chang on 05-04-2025 Albumin [Mass/Vol] 4.2 g/dL 3.4-4.8 [facility] Serum or plasma albumin/glob ulin mass ratioOrdered By: Bonnie Chang on 05-04-2025 Albumin/Globulin [Mass ratio] 1.9 {ratio} 0.9-2.4 [facility] Serum or plasma alkaline anthony sphatase measurementOrdered By: Bonnie Chang on 05-04-2025 ALP [Catalytic activity/Vol] 78 U/L 35-104 [facility] Serum or plasma calcium yamil urement (mass/volume)Ordered By: Bonnie Chang on 05-04-2025 Calcium [Mass/Vol] 9.1 mg/dL 7.6-11.0 [facility] Serum or plasma urea nitroge n measurement (mass/volume)Ordered By: Bonnie Chang on 05-04-2025 Urea nitrogen [Mass/Vol] 56 mg/dL High 4-19 [facility] Sodium levelOrdered By: Gray Chang on 05-04-2025 Sodium [Moles/Vol] 140 mmol/L 133-145 [facility] Total proteinOrdered By: Aman Chang on 05-04-2025 Protein [Mass/Vol] 6.5 g/dL 5.9-8.4 [facility] White blood cell (WBC) count Ordered By: Bonnie Chang on 05-04-2025 WBC (Bld) [#/Vol] 8.4 10*3/uL 4.4-11.0 [facility] CNPCatarina 04-29-2025 SALVATORE Telephone (ALICE) ZAHIDA BELTRE ([id number]) 1955 F Date Time Provider Department 04/29/25 [...] stability. (Orders entered) Pt currently resides in [facility]. I attempted to reach spouse number ivanna busy. No answer on daughter Jeanette's phone (she was present for appt) Case and labs reviewed with Dr Vivas. Sultana Garcia, REED.Jazzy Munguia LPN 04/29/2025 2:52 PM Addendum I called and spoke to Hope, patient's nurse at [facility]. Patient is scheduled to see [...] BLOOD COUNT AND DIFFERENTIAL [SQCBCDIF] Order #: [id number] FUTURE Prescriptions as of 04/29/2025 - cloNIDine HCl (CATAPRES) 0.3 mg tablet Take 0.3 mg by mouth three times a day. - cranberry fruit (CRANBERRY) 450 mg tab Take 450 mg by mouth once daily. - famotidine (PEPCID) 20 mg tablet Take 20 mg by mouth daily at bedtime. - sodium phosphate,mono-dibasic (FLEET ENEMA [place]) 1 suppository by RECTAL route as needed. [...] examination [Z01.818] 03/23/2024 Coronary artery disease involving [facility] enrique*03/23/2024 HTN (hypertension) [I10] 03/23/2024 Mixed hyperlipidemia [E78.2] 03/23/2024 Subdural hemorrhage (HCC) [I62.00] 06/18/2024 SDH (subdural hematoma) (HCC) [S06.5XAA] 06/18/2024 Fall [W19.XXXA] 06/19/2024 Age-related osteoporosis without current pathol*04/13/2024 Dependence on renal dialysis (HCC) [Z99.2] 04/07/2024 (more content not included)... Normal [facility] Evelyn 04-22-2025 MARY Telephone (ALICE) ZAHIDA BELTRE ([id number]) 1955 F Date Time Provider Department 04/22/25 SULTANA GARCIA During your visit today, we recorded the following information about you: Yazmin Medel 04/22/2025 10:25 AM Signed Please fax 04/20 lab results to [facility] at [phone] Radha Nichols LPN 04/22/2025 11:06 AM Signed Labs faxed as directed. Radha S Bao, [employer] Allergies As of Date: 04/22/2025 Noted Allergy [...] at bedtime. - sodium phosphate,mono-dibasic (FLEET ENEMA [place]) 1 suppository by RECTAL route as needed. [...] examination [Z01.818] 03/23/2024 Coronary artery disease involving [facility] enrique*03/23/2024 HTN (hypertension) [I10] 03/23/2024 Mixed hyperlipidemia [E78.2] 03/23/2024 Subdural hemorrhage (HCC) [I62.00] 06/18/2024 SDH (subdural hematoma) (HCC) [S06.5XAA] 06/18/2024 Fall [W19.XXXA] 06/19/2024 Age-related osteoporosis without current pathol*04/13/2024 Dependence on renal dialysis (HCC) [Z99.2] 04/07/2024 06/24/2024 Chronic anemia [D64.9] 06/19/2024 Hyponatremia [E87.1] 06/19/2024 06/24/2024 Encounter Status:Closed by RADHA NICHOLS on 04/22/25 Normal [facility] COPPER BLOODOrdered By: Giovanni Hanson on 04-21-2025 Copper [Mass/Vol] 107 ug/dL 80 - 155 ug/dL [facility] Comment on above: This test was devomario ped, and its performance characteristics determined by the [facility] Department of Pathology and Laboratory Medicine. It has not been cleared or approved by the FDA. The [facility] Department of Pathology and Laboratory Medicine is regulated under CLIA as qualified to perform high-complexity testing. This test is used for clinical purposes. It should not be regarded as investigational or for research. ERYTHROPOIETIN/EPOon 025 Erythropoietin (EPO) Qn 13.2 [IU]/L [facility] Erythropoietin (EPO) Qnon Interpretation and review of laboratory results Normal [facility] Test analyzed by the [employer] DxI method. [facility] FERRITINon 04-21-2025 Ferritin [Mass/Vol] 987.0 ng/mL High 14.7 - 205.1 ng/mL [facility] FOLATE, SERUMon 04-21-2025 Folate [Mass/Vol] ng/mL 4.7 - PINF ng/mL [facility] Comment on above: A result of > 20 ng/ mL is not necessarily indicative of a pathologic or treatable condition: it reflects a limitation of the test methodology. Assay reference range: 4.8 to 24.2 ng/mL. Suitable for detection of folate deficiency. Reference: Folate III (Folate III) [package insert V 1.0 Hungarian]. [facility], [place], [place]: July 2015. Ferritin [Mass/Vol]on 2024 Interpretation and review of laboratory results Abnormal [facility] Iron and Iron binding capaci ty panelon 04-21-2025 Interpretation and review of laboratory results Normal [facility] Iron [Mass/Vol] 104 ug/dL 41 - 186 ug/dL [facility] Iron binding capacity [Mass/Vol] 342 ug/dL 232 - 386 ug/dL [facility] Iron/TIBC [Molar ratio] 30.4 % 15.0 - 57.0 % [facility] No Panel InformationOrdered By: Paris Hanson on 04-21-2025 Interpretation and review of laboratory results Normal [facility] No Panel Informationon 04-21 Interpretation and review of laboratory results Normal [facility] VITAMIN B12on 04-21-2025 Cobalamin (Vitamin B12) [Mass/Vol] 840 pg/mL 232 - 1245 pg/mL [facility] ZINC BLDon 04-21-2025 Zinc [Mass/Vol] 84 ug/dL 60 - 120 ug/dL [facility] Comment on above: This test was [employer] ped, and its performance characteristics determined by the [facility] Department of Pathology and Laboratory Medicine. It has not been cleared or approved by the FDA. The [facility] Department of Pathology and Laboratory Medicine is regulated under CLIA as qualified to perform high-complexity testing. This test is used for clinical purposes. It should not be regarded as investigational or for research. CBC panel Auto (Bld)on 04-20 Erythrocyte distribution width (RBC) [Ratio] 12.6 % 11.5 - 15.0 % [facility] Hematocrit (Bld) [Volume fraction] 31.1 % Low 36.0 - 46.0 % [facility] Hemoglobin (Bld) [Mass/Vol] 10.3 g/dL Low 11.5 - 15.5 g/dL [facility] Interpretation and review of laboratory results Abnormal [facility] MCH (RBC) [Entitic mass] 31.7 pg 26.0 - 34.0 pg [facility] MCHC (RBC) [Mass/Vol] 33.1 g/dL 30.5 - 36.0 g/dL [facility] MCV (RBC) [Entitic vol] 95.7 fL 80.0 - 100.0 fL [facility] Nucleated RBC (Bld) [#/Vol] NINF [facility] Platelet mean volume (Bld) [Entitic vol] 9.9 fL 9.0 - 12.7 fL [facility] Platelets (Bld) [#/Vol] 368 10*3/uL [facility] RBC (Bld) [#/Vol] 3.25 10*6/uL Low 3.90 - 5.2 0 m/uL [facility] WBC (Bld) [#/Vol] 12.16 10*3/uL High [facility] Erythrocyte distribution width (RBC) [Ratio] 12.6 % Normal 11.5-15.0 [facility] Comment on above: Order Comment: Speci men Type: BLOOD SPECIMEN Ordering Facility: [facility] Address: [address] [place] [address] Performed By: #### 5 8410-2 #### [facility] CLIA [id number] [address] [place] [address] [place] Hematocrit (Bld) [Volume fraction] 31.1 % Low 36.0-46.0 [facility] Comment on above: Order Comment: Speci men Type: BLOOD SPECIMEN Ordering Facility: [facility] Address: [address] [place] [address] Performed By: #### 5 8410-2 #### [facility] [id number] [address] [place] [address] [place] Hemoglobin (Bld) [Mass/Vol] 10.3 g/dL Low 11.5-15.5 [facility] Comment on above: Order Comment: Speci men Type: BLOOD SPECIMEN Ordering Facility: [facility] Address: [address] [place] [address] Performed By: #### 5 8410-2 #### [facility] [id number] [address] [place] [address] [place] MCH (RBC) [Entitic mass] 31.7 pg Normal 26.0-34.0 [facility] Comment on above: Order Comment: Speci men Type: BLOOD SPECIMEN Ordering Facility: [facility] Address: [address] [place] [address] Performed By: #### 5 8410-2 #### [facility] CLIA [id number] [address] [place] [address] [place] MCHC (RBC) [Mass/Vol] 33.1 g/dL Normal 30.5-36.0 [facility] Comment on above: Order Comment: Speci men Type: BLOOD SPECIMEN Ordering Facility: [facility] Address: [address] [place] [address] Performed By: #### 5 8410-2 #### [facility] CLIA [id number] [address] [place] [address] [place] MCV (RBC) [Entitic vol] 95.7 fL Normal 80.0-100.0 [facility] Comment on above: Order Comment: Speci men Type: BLOOD SPECIMEN Ordering Facility: [facility] Address: [address] [place] [address] Performed By: #### 5 8410-2 #### [facility] CLIA [id number] [address] [place] [address] [place] Nucleated RBC (Bld) [#/Vol] 10*3/uL Normal <0.01 [facility] Comment on above: Order Comment: Speci men Type: BLOOD SPECIMEN Ordering Facility: [facility] Address: [address] [place] [address] Performed By: #### 5 8410-2 #### [facility] CLIA [id number] [address] [place] [address] [place] Platelet mean volume (Bld) [Entitic vol] 9.9 fL Normal 9.0-12.7 [facility] Comment on above: Order Comment: Speci men Type: BLOOD SPECIMEN Ordering Facility: [facility] Address: [address] [place] [address] Performed By: #### 5 8410-2 #### [facility] CLIA [id number] [address] [place] [address] [place] Platelets (Bld) [#/Vol] 368 10*3/uL Normal 150-400 [facility] Comment on above: Order Comment: Speci men Type: BLOOD SPECIMEN Ordering Facility: [facility] Address: [address] [id number] Performed By: #### 5 8410-2 #### [facility] CLIA [id number] [address] [place] [address] [place] RBC (Bld) [#/Vol] 3.25 10*6/uL Low 3.90-5.20 [facility] Comment on above: Order Comment: Speci men Type: BLOOD SPECIMEN Ordering Facility: [facility] Address: [address] [place] [address] Performed By: #### 5 8410-2 #### [facility] CLIA [id number] [address] [place] [address] [place] WBC (Bld) [#/Vol] 12.16 10*3/uL High 3.70-11.00 [facility] Comment on above: Order Comment: Speci men Type: BLOOD SPECIMEN Ordering Facility: [facility] Address: [address] [place] [address] Performed By: #### 5 8410-2 #### [facility] CLIA [id number] [address] [place] [address] [place] CNOVSPon 04-20-2025 OVS Visit (SP) Office (H EMAWS) ZAHIDA BELTRE ([id number]) 1955 F Date Time Provider Department 04/20/25 1:00 PM SULTANA GARCIA During your visit today, we recorded the following information about you: Temperature Pulse Blood pressure Weight 97.9 degrees 67/minute 123/78 71.7 kg Height 1.562 m Sultnaa Garcia 04/23/2025 3:55 PM Signed Progress Note Zahida Beltre 1955 Encounter date: 04/20/2025 HPI: Zahida Beltre is a 69 year old female with extensive PMH of Kidney failure hx of dialysis for about 6 - 8 months, CAD, subdural hematoma, HTN, Chronic anemia. She presents today with her daughter Jeanette as a referral from her director multimedia for management of anemia. She is a poor historian, rather tangential. Currently resides in a half-way facility since last year. Per chart review [...] daily at bedtime. sodium phosphate,mono-dibasic (FLEET ENEMA [place]) 1 suppository by RECTAL route as needed. [...] Take 40 (more content not included)... Normal [facility] COPPER BLOODon 04-20-2025 Copper [Mass/Vol] 107 ug/dL Normal 80-155 [facility] Comment on above: Order Comment: Speci men Type: BLOOD SPECIMEN Ordering Facility: [facility] Address: [address] [place] [address] Result Comment: This test was developed, and its performance characteristics determined by the [facility] Department of Pathology and Laboratory Medicine. It has not been cleared or approved by the FDA. The [facility] Department of Pathology and Laboratory Medicine is regulated under CLIA as qualified to perform high-complexity testing. This test is used for clinical purposes. It should not be regarded as investigational or for research. Performed By: #### 5 763-8, COPPER #### [facility] CLIA [id number] [address] [place] [address] [place] Comprehensive metabolic 2000 panelOrdered By: Farnaz Mata on 04-20-2025 Albumin [Mass/Vol] 4.8 g/dL 3.9 - 4.9 g/dL [facility] ALP [Catalytic activity/Vol] 95 U/L 34 - 123 U/L [facility] ALT [Catalytic activity/Vol] 12 U/L 7 - 38 U/L [facility] Anion gap [Moles/Vol] 17 mmol/L High 8 - 15 mmol/L [facility] AST [Catalytic activity/Vol] 13 U/L 13 - 35 U/L [facility] Bilirubin [Mass/Vol] 0.2 mg/dL 0.2 - 1 .3 mg/dL [facility] Calcium [Mass/Vol] 9.9 mg/dL 8.5 - 10. 2 mg/dL [facility] Chloride [Moles/Vol] 100 mmol/L 98 - 10 7 mmol/L [facility] CO2 [Moles/Vol] 21 mmol/L Low 22 - 30 mmol/L [facility] Creatinine [Mass/Vol] 4.68 mg/dL High 0.58 - 0.96 mg/dL [facility] GFR/1.73 sq M.predicted among non-blacks MDRD (S/P/Bld) [Vol rate/Area] 9 mL/min/{1.73_m2} Low - PINF [facility] Comment on above: Estimated Glomerular Filtration Rate (eGFR) is calculated using the 202 CKD-EPI creatinine equation. This equation utilizes serum creatinine, sex, and age as parameters. The creatinine assay has traceable calibration to isotope dilution-mass spectrometry. Refer to KDIGO guidelines for clinical interpretation. In patients with unstable renal function, e.g. those with acute kidney injury, the eGFR may not accurately reflect actual GFR. Glucose [Mass/Vol] 125 mg/dL High 74 - 99 mg/dL [facility] Comment on above: The [place] Diab[employer] s Association (ADA) provides guidance for [...] Standards of Medical Care in Diabetes 2016, [place] [employer]. Diabetes Care. 2016.39(Suppl 1). Interpretation and review of laboratory results Abnormal [facility] Potassium [Moles/Vol] 4.0 mmol/L 3.7 - 5.1 mmol/L [facility] Protein [Mass/Vol] 7.5 g/dL 6.3 - 8.0 g/dL [facility] Sodium [Moles/Vol] 138 mmol/L 136 - 144 mmol/L [facility] Urea nitrogen [Mass/Vol] 58 mg/dL High 7 - 21 mg/dL [facility] Comprehensive metabolic 2000 panelon 04-20-2025 Albumin [Mass/Vol] 4.8 g/dL Normal 3.9-4.9 [facility] Comment on above: Order Comment: Speci men Type: BLOOD SPECIMEN Ordering Facility: [facility] Address: [facility] [place] [address] Performed By: #### 2 4323-8 #### [facility] CLIA [id number] [address] [place] [address] [place] ALP [Catalytic activity/Vol] 95 U/L Normal 34-123 [facility] Comment on above: Order Comment: Speci men Type: BLOOD SPECIMEN Ordering Facility: [facility] Address: [address] [place] [address] Performed By: #### 2 4323-8 #### [facility] CLIA [id number] [address] [place] [address] [place] ALT [Catalytic activity/Vol] 12 U/L Normal 7-38 [facility] Comment on above: Order Comment: Speci men Type: BLOOD SPECIMEN Ordering Facility: [facility] Address: [address] [place] [address] Performed By: #### 2 4323-8 #### [facility] CLIA [id number] [address] [place] [address] [place] Anion gap [Moles/Vol] 17 mmol/L High 8-15 [facility] Comment on above: Order Comment: Speci men Type: BLOOD SPECIMEN Ordering Facility: [facility] Address: [address] [place] [address] Performed By: #### 2 4323-8 #### [facility] CLIA [id number] [address] [place] [address] [place] AST [Catalytic activity/Vol] 13 U/L Normal 13-35 [facility] Comment on above: Order Comment: Speci men Type: BLOOD SPECIMEN Ordering Facility: [facility] Address: [address] [place] [address] Performed By: #### 2 4323-8 #### [facility] CLIA [id number] [address] [place] [address] [place] Bilirubin [Mass/Vol] 0.2 mg/dL Normal 0.2-1.3 [facility] Comment on above: Order Comment: Speci men Type: BLOOD SPECIMEN Ordering Facility: [facility] Address: [address] [place] [address] Performed By: #### 2 4323-8 #### [facility] CLIA [id number] [address] [place] [address] [place] Calcium [Mass/Vol] 9.9 mg/dL Normal 8.5-10.2 [facility] Comment on above: Order Comment: Speci men Type: BLOOD SPECIMEN Ordering Facility: [facility] Address: [address] [place], [place] [id number] Performed By: #### 2 4323-8 #### [facility] CLIA [id number] [address] [place] [address] [place] Chloride [Moles/Vol] 100 mmol/L Normal 98-107 [facility] Comment on above: Order Comment: Speci men Type: BLOOD SPECIMEN Ordering Facility: [facility] Address: [address] [place] [address] Performed By: #### 2 4323-8 #### [facility] CLIA [id number] [address] [place] [address] [place] CO2 [Moles/Vol] 21 mmol/L Low 22-30 [facility] Comment on above: Order Comment: Speci men Type: BLOOD SPECIMEN Ordering Facility: [facility] Address: [address] [place] [address] Performed By: #### 2 4323-8 #### [facility] CL[facility] [id number] [address] [place] [address] [place] Creatinine [Mass/Vol] 4.68 mg/dL High 0.58-0.96 [facility] Comment on above: Order Comment: Speci men Type: BLOOD SPECIMEN Ordering Facility: [facility] Address: [address] [place] [address] Performed By: #### 2 4323-8 #### [facility] CLIA [id number] [address] [place] [address] [place] eGFRcr SerPlBld CKD-EPI 2020 9 mL/min/1.73m??? Low >=60 [facility] Comment on above: Order Comment: Dee Dee godfrey Type: BLOOD SPECIMEN Ordering Facility: [facility] Address: [address] [place] [address] Result Comment: Saige mated Glomerular Filtration Rate [...] GFR. Performed By: #### 2 4323-8 #### [facility] [id number] [address] [place] [address] [place] Glucose [Mass/Vol] 125 mg/dL High 74-99 [facility] Comment on above: Order Comment: Dee Dee godfrey Type: BLOOD SPECIMEN Ordering Facility: [facility] Address: [address] [place] [address] Result Comment: The [place] Diabetes Association (ADA) provides guidance for cutoff [...] Standards of Medical Care in Diabetes 2016, [place] Diabetes Association. Diabetes Care. 2016.39(Suppl 1). Performed By: #### 2 4323-8 #### [facility] [id number] [address] [place] [address] [place] Potassium [Moles/Vol] 4.0 mmol/L Normal 3.7-5.1 [facility] Comment on above: Order Comment: Speci men Type: BLOOD SPECIMEN Ordering Facility: [facility] Address: [address] [place] [address] Performed By: #### 2 4323-8 #### [facility] CLIA [id number] [address] [place] [address] [place] Protein [Mass/Vol] 7.5 g/dL Normal 6.3-8.0 [facility] Comment on above: Order Comment: Speci men Type: BLOOD SPECIMEN Ordering Facility: [facility] Address: [address] [place] [address] Performed By: #### 2 4323-8 #### [facility] [id number] [address] [place] [address] [place] Sodium [Moles/Vol] 138 mmol/L Normal 136-144 [facility] Comment on above: Order Comment: Speci men Type: BLOOD SPECIMEN Ordering Facility: [facility] Address: [address] [place] [address] Performed By: #### 2 4323-8 #### [facility] [id number] [address] [place] [address] [place] Urea nitrogen [Mass/Vol] 58 mg/dL High 7-21 [facility] Comment on above: Order Comment: Speci men Type: BLOOD SPECIMEN Ordering Facility: [facility] Address: [address] [place] [address] Performed By: #### 2 4323-8 #### [facility] [id number] [address] [place] [address] [place] EPO SerPl-aCncon 04-20-2025 Erythropoietin (EPO) Qn 13.2 mIU/mL Normal 2.6-18.5 [facility] Comment on above: Order Comment: Speci men Type: BLOOD SPECIMENOrdering Facility: [facility] Address: [address] [place] [address] Performed By: #### 1 5061-5 ####[facility] [id number] [place] [address] [place] Ferritin SerPl-[facility] 2024 Ferritin [Mass/Vol] 987.0 ng/mL High 14.7-205.1 [facility] Comment on above: Order Comment: Speci men Type: BLOOD SPECIMEN Ordering Facility: [facility] Address: [address] [place] [address] Performed By: #### 5 0190-8, 2275-4, 2132-05, 2284-04 #### [facility] CLIA [id number] [address] [place] [address] [place] Folate SerPl-[facility] 04-20-20 25 Folate [Mass/Vol] ng/mL Normal >4.7 [facility] Comment on above: Order Comment: Speci men Type: BLOOD SPECIMEN Ordering Facility: [facility] Address: [address] [place] [address] Result Comment: A re sult of > 20 ng/mL is not necessarily indicative of a pathologic or treatable condition: it reflects a limitation of the test methodology. Assay reference range: 4.8 to 24.2 ng/mL. Suitable for detection of folate deficiency. Reference: Folate III (Folate III) [package insert V 1.0 Hungarian]. [facility], [place], [place]: July 2015. Performed By: #### 5 0190-8, 2275-4, 2132-05, 2284-04 #### [facility] CLIA [id number] [address] [place] [address] [place] Iron and Iron binding capaci ty panelon 04-20-2025 Iron [Mass/Vol] 104 ug/dL Normal 41-186 [facility] Comment on above: Order Comment: Speci men Type: BLOOD SPECIMEN Ordering Facility: [facility] Address: [address] [place] [address] Performed By: #### 5 0190-8, 2275-4, 9, 2284-04 #### [facility] CLIA [id number] [address] [place] [address] [place] Iron binding capacity [Mass/Vol] 342 ug/dL Normal 232-386 [facility] Comment on above: Order Comment: Speci men Type: BLOOD SPECIMEN Ordering Facility: [facility] Address: [address] [place] [address] Performed By: #### 5 0190-8, 4, 9, 2284-04 #### [facility] CLIA [id number] [address] [place] [address] [place] Iron/TIBC [Molar ratio] 30.4 % Normal 15.0-57.0 [facility] Comment on above: Order Comment: Speci men Type: BLOOD SPECIMEN Ordering Facility: [facility] Address: [address] [place] [address] Performed By: #### 5 0190-8, 2275-4, 2132-05, 2284-04 #### [facility] CLIA [id number] [address] [place] [address] [place] Vit B12 SerPl-mCncon 025 Cobalamin (Vitamin B12) [Mass/Vol] 840 pg/mL Normal 232-1245 [facility] Comment on above: Order Comment: Speci men Type: BLOOD SPECIMEN Ordering Facility: [facility] Address: [address] [place] [address] Performed By: #### 5 0190-8, 2275-4, 2132-05, 2284-04 #### [facility] CLIA [id number] [address] [place] [address] [place] Zinc SerPl-mCncon 04-20-2025 Zinc [Mass/Vol] 84 ug/dL Normal 60-120 [facility] Comment on above: Order Comment: Speci men Type: BLOOD SPECIMEN Ordering Facility: [facility] Address: [address] [place] [address] Result Comment: This test was developed, and its performance characteristics determined by the [facility] Department of Pathology and Laboratory Medicine. It has not been cleared or approved by the FDA. The [facility] Department of Pathology and Laboratory Medicine is regulated under CLIA as qualified to perform high-complexity testing. This test is used for clinical purposes. It should not be regarded as investigational or for research. Performed By: #### 5 763-8, COPPER #### [facility] CLIA [id number] [address] [place] [address] [place] [address] [place] KEPPRA (LEVETIRACETAM)on KEPPRA 11.2 ug/mL Normal 10.0-40.0 [facility] Comment on above: Order Comment: 516.1 Result Comment: Perf ormed at: [facility] [address] [id number] Director: Rk Petty MD, Phone: [phone] Performed By: #### L 501.2300, L500.4050, L3310.0000, L100.0500 ####[facility] [address] [place], [place], [id number] Anion gap in Serum or Plasma Ordered By: Devendra Beverly on 04-06-2025 Anion gap [Moles/Vol] 16 mmol/L High 5-15 [facility] BUN/creatinine ratioOrdered By: Devendra Beverly on 04-06-2025 Urea nitrogen/Creatinine [Mass ratio] 12.3 mg/mg 10-20 [facility] Bilirubin, totalOrdered By: Devendra Beverly on 04-06-2025 Bilirubin [Mass/Vol] 0.24 mg/dL 0.00-1.30 [facility] CBC-Complete Blood Cnt No Di ffon 04-06-2025 Erythrocyte distribution width (RBC) [Ratio] 12.3 % Normal 11.6-14.6 [facility] Comment on above: Order Comment: 516.1 Performed By: #### L 501.2300, L500.4050, L3310.0000, L100.0500 ####[facility] [address] [place], [address] Hematocrit (Bld) [Volume fraction] 27.1 % Low 37-47 [facility] Comment on above: Order Comment: 516.1 Performed By: #### L 501.2300, L500.4050, L3310.0000, L100.0500 ####[facility] [address] [place], [address] Hemoglobin (Bld) [Mass/Vol] 8.9 g/dL Low 12.0-15.0 [facility] Comment on above: Order Comment: 516.1 Performed By: #### L 501.2300, L500.4050, L3310.0000, L100.0500 ####[facility] [address] [place], [address] MCH (RBC) [Entitic mass] 31.1 pg Normal 27.0-32.0 [facility] Comment on above: Order Comment: 516.1 Performed By: #### L 501.2300, L500.4050, L3310.0000, L100.0500 ####[facility] [address] [place], [address] MCHC (RBC) [Mass/Vol] 32.8 g/dL Normal 32-36 [facility] Comment on above: Order Comment: 516.1 Performed By: #### L 501.2300, L500.4050, L3310.0000, L100.0500 ####[facility] [address] [place], [address] MCV (RBC) [Entitic vol] 94.8 fL Normal 81-99 [facility] Comment on above: Order Comment: 516.1 Performed By: #### L 501.2300, L500.4050, L3310.0000, L100.0500 ####[facility] [address] [place], [address] Platelet mean volume (Bld) [Entitic vol] 10.6 fL Normal 6.2-12.0 [facility] Comment on above: Order Comment: 516.1 Performed By: #### L 501.2300, L500.4050, L3310.0000, L100.0500 ####[facility] [address] [place], [address] Platelets (Bld) [#/Vol] 301 10*3/uL Normal 150-450 [facility] Comment on above: Order Comment: 516.1 Performed By: #### L 501.2300, L500.4050, L3310.0000, L100.0500 ####[facility] [address] [place], [address] RBC (Bld) [#/Vol] 2.86 10*6/uL Low 4.2-5.4 [facility] Comment on above: Order Comment: 516.1 Performed By: #### L 501.2300, L500.4050, L3310.0000, L100.0500 ####[facility] [address] [place], [address] RDW SD 42.8 fl Normal 35.1-43.9 [facility] Comment on above: Order Comment: 516.1 Performed By: #### L 501.2300, L500.4050, L3310.0000, L100.0500 ####[facility] [address] [place], [address] WBC (Bld) [#/Vol] 9.2 10*3/uL Normal 4.4-11.0 [facility] Comment on above: Order Comment: 516.1 Performed By: #### L 501.2300, L500.4050, L3310.0000, L100.0500 ####[facility] [address] [place], [address] Carbon dioxide, total [Moles /volume] in Central venous bloodOrdered By: Devendra Beverly on 04-06-2025 CO2 [Moles/Vol] 21.7 mmol/L 21.0-32.0 [facility] Chloride assayOrdered By: Keaton Beverly on 04-06-2025 Chloride [Moles/Vol] 103 mmol/L 98-108 [facility] Comprehensive Metabolic Prof ilon 04-06-2025 Albumin [Mass/Vol] 4.3 g/dL Normal 3.4-4.8 [facility] Comment on above: Order Comment: 516.1 Performed By: #### L 501.2300, L500.4050, L3310.0000, L100.0500 ####[facility] [address] [place], [address] Albumin/Globulin [Mass ratio] 1.8 {ratio} Normal 0.9-2.4 [facility] Comment on above: Order Comment: 516.1 Performed By: #### L 501.2300, L500.4050, L3310.0000, L100.0500 ####[facility] [address] [place], [address] ALK PHOS 83 U/L Normal 35-104 [facility] Comment on above: Order Comment: 516.1 Performed By: #### L 501.2300, L500.4050, L3310.0000, L100.0500 ####[facility] [address] [place], [address] ALT [Catalytic activity/Vol] 14 U/L Normal <=34 [facility] Comment on above: Order Comment: 516.1 Performed By: #### L 501.2300, L500.4050, L3310.0000, L100.0500 ####[facility] [address] [place], [address] AST [Catalytic activity/Vol] 18 U/L Normal <=31 [facility] Comment on above: Order Comment: 516.1 Performed By: #### L 501.2300, L500.4050, L3310.0000, L100.0500 ####[facility] [address] [place], [address] Bilirubin [Mass/Vol] 0.24 mg/dL Normal 0.00-1.30 [facility] Comment on above: Order Comment: 516.1 Performed By: #### L 501.2300, L500.4050, L3310.0000, L100.0500 ####[facility] [address] [place], [address] BUN/CRE 12.3 RATIO Normal 10-20 [facility] Comment on above: Order Comment: 516.1 Performed By: #### L 501.2300, L500.4050, L3310.0000, L100.0500 ####[facility] [address] [place], [address] Calcium [Mass/Vol] 9.5 mg/dL Normal 7.6-11.0 [facility] Comment on above: Order Comment: 516.1 Performed By: #### L 501.2300, L500.4050, L3310.0000, L100.0500 ####[facility] [address] [place], [address] Chloride [Moles/Vol] 103 mmol/L Normal 98-108 [facility] Comment on above: Order Comment: 516.1 Performed By: #### L 501.2300, L500.4050, L3310.0000, L100.0500 ####[facility] [address] [place], [address] CO2 [Moles/Vol] 21.7 mmol/L Normal 21.0-32.0 [facility] Comment on above: Order Comment: 516.1 Performed By: #### L 501.2300, L500.4050, L3310.0000, L100.0500 ####[facility] [address] [place], [address] Creatinine [Mass/Vol] 4.45 mg/dL High 0.70-1.20 [facility] Comment on above: Order Comment: 516.1 Performed By: #### L 501.2300, L500.4050, L3310.0000, L100.0500 ####[facility] [address] [place], [address] GAP 16 High 5-15 [facility] Comment on above: Order Comment: 516.1 Performed By: #### L 501.2300, L500.4050, L3310.0000, L100.0500 ####[facility] [address] [place], [address] GFR/1.73 sq M.predicted among non-blacks MDRD (S/P/Bld) [Vol rate/Area] 10 mL/min/{1.73_m2} Low >60 [facility] Comment on above: Order Comment: 516.1 Result Comment: mL/m in/1.73m2 CKD-EPI Creatinine Equation (2020) Performed By: #### L 501.2300, L500.4050, L3310.0000, L100.0500 ####[facility] [address] [place], [address] Globulin (S) [Mass/Vol] 2.3 g/dL Normal 2.2-4.2 [facility] Comment on above: Order Comment: 516.1 Performed By: #### L 501.2300, L500.4050, L3310.0000, L100.0500 ####[facility] [address] [place], [address] Glucose [Mass/Vol] 139 mg/dL High 70-99 [facility] Comment on above: Order Comment: 516.1 Performed By: #### L 501.2300, L500.4050, L3310.0000, L100.0500 ####[facility] [address] [place], [address] Potassium [Moles/Vol] 4.0 mmol/L Normal 3.3-5.1 [facility] Comment on above: Order Comment: 516.1 Performed By: #### L 501.2300, L500.4050, L3310.0000, L100.0500 ####[facility] [address] [place], [address] Sodium [Moles/Vol] 140 mmol/L Normal 133-145 [facility] Comment on above: Order Comment: 516.1 Performed By: #### L 501.2300, L500.4050, L3310.0000, L100.0500 ####[facility] [address] [place], [address] T PROT 6.6 g/dL Normal 5.9-8.4 [facility] Comment on above: Order Comment: 516.1 Performed By: #### L 501.2300, L500.4050, L3310.0000, L100.0500 ####[facility] [address] [place], [address] Urea nitrogen [Mass/Vol] 55 mg/dL High 4-19 [facility] Comment on above: Order Comment: 516.1 Performed By: #### L 501.2300, L500.4050, L3310.0000, L100.0500 ####[facility] [address] [place], [address] Erythrocyte distribution wid th ratioOrdered By: Devendra Beverly on 04-06-2025 Erythrocyte distribution width (RBC) [Ratio] 12.3 % 11.6-14.6 [facility] Erythrocyte distribution wid th standard deviationOrdered By: Devendra Beverly on 04-06-2025 Erythrocyte distribution width (RBC) [Ratio] 42.8 fl 35.1-43.9 [facility] Glomerular filtration rate ( GFR) estimation/1.73 sq m using serum, plasma, or whole bOrdered By: Devendra Beverly on 04-06-2025 GFR/1.73 sq M.predicted among non-blacks MDRD (S/P/Bld) [Vol rate/Area] 10 mL/min/{1.73_m2} Low >60 [facility] Comment on above: mL/min/1.73m2 CKD-EP I Creatinine Equation (2020) Hematocrit Auto (Bld) [Volum e fraction]Ordered By: Devendra Beverly on 04-06-2025 Hematocrit (Bld) [Volume fraction] 27.1 % Low 37-47 [facility] Hemoglobin measurementOrdere d By: Devendra Beverly on 04-06-2025 Hemoglobin (Bld) [Mass/Vol] 8.9 g/dL Low 12.0-15.0 [facility] Laboratory - Chemistry and C hemistry - challengeOrdered By: Devendra Beverly on 04-06-2025 AST [Catalytic activity/Vol] 18 U/L <32 [facility] LevetiracetamOrdered By: Tee Beverly on 04-06-2025 levETIRAcetam [Mass/Vol] 11.2 ug/mL 10.0-40.0 [facility] Comment on above: Performed at: [address] [id number] Director: Rk Petty MD, Phone: [phone] MCV (mean corpuscular volume ) determinationOrdered By: Devendra Beverly on 04-06-2025 MCV (RBC) [Entitic vol] 94.8 fL 81-99 [facility] Mean corpuscular hemoglobin (MCH) determinationOrdered By: Devendra Beverly on 04-06-2025 MCH (RBC) [Entitic mass] 31.1 pg 27.0-32.0 [facility] Mean corpuscular hemoglobin concentration (MCHC) determinationOrdered By: Devendra Beverly on 04-06-2025 MCHC (RBC) [Mass/Vol] 32.8 g/dL 32-36 [facility] Mean platelet volume determi nationOrdered By: Devendra Beverly on 04-06-2025 Platelet mean volume (Bld) [Entitic vol] 10.6 fL 6.2-12.0 [facility] Phosphoruson 04-06-2025 Phosphate [Mass/Vol] 4.7 mg/dL High 2.7-4.5 [facility] Comment on above: Order Comment: 516.1 Performed By: #### L 501.2300, L500.4050, L3310.0000, L100.0500 ####[facility] [address] [place], [address] Platelet countOrdered By: Keaton Beverly on 04-06-2025 Platelets (Bld) [#/Vol] 301 10*3/uL 150-450 [facility] Potassium measurement (mass/ volume)Ordered By: Devendra Beverly on 04-06-2025 Potassium (Unsp spec) [Mass/Vol] 4.0 mmol/L 3.3-5.1 [facility] RBC Auto (Bld) [#/Vol]Ordere d By: Devendra Beverly on 04-06-2025 RBC (Bld) [#/Vol] 2.86 10*6/uL Low 4.2-5.4 [facility] Serum creatinine measurement (mass/volume)Ordered By: Devendra Beverly on 04-06-2025 Creatinine [Mass/Vol] 4.45 mg/dL High 0.70-1.20 [facility] Serum globulin measurementOr dered By: Devendra Beverly on 04-06-2025 Globulin (S) [Mass/Vol] 2.3 g/dL 2.2-4.2 [facility] Serum glucose measurement (m ass/volume)Ordered By: Devendra Beverly on 04-06-2025 Glucose [Mass/Vol] 139 mg/dL High 70-99 [facility] Serum or plasma alanine mckeon otransferase (ALT) measurementOrdered By: Devendra Beverly on 04-06-2025 ALT [Catalytic activity/Vol] 14 U/L <35 [facility] Serum or plasma albumin yamil urement (mass/volume)Ordered By: Devendra Beverly on 04-06-2025 Albumin [Mass/Vol] 4.3 g/dL 3.4-4.8 [facility] Serum or plasma albumin/glob ulin mass ratioOrdered By: Devendra Beverly on 04-06-2025 Albumin/Globulin [Mass ratio] 1.8 {ratio} 0.9-2.4 [facility] Serum or plasma alkaline anthony sphatase measurementOrdered By: Devendra Beverly on 04-06-2025 ALP [Catalytic activity/Vol] 83 U/L 35-104 [facility] Serum or plasma calcium yamil urement (mass/volume)Ordered By: Devendra Beverly on 04-06-2025 Calcium [Mass/Vol] 9.5 mg/dL 7.6-11.0 [facility] Serum or plasma urea nitroge n measurement (mass/volume)Ordered By: Devendra Beverly on 04-06-2025 Urea nitrogen [Mass/Vol] 55 mg/dL High 4-19 [facility] Sodium levelOrdered By: Collin Beverly on 04-06-2025 Sodium [Moles/Vol] 140 mmol/L 133-145 [facility] Total proteinOrdered By: Tee Beverly on 04-06-2025 Protein [Mass/Vol] 6.6 g/dL 5.9-8.4 [facility] White blood cell (WBC) count Ordered By: Devendra Beverly on 04-06-2025 WBC (Bld) [#/Vol] 9.2 10*3/uL 4.4-11.0 [facility] Urine Cultureon 04-01-2025 URC Normal [facility] Comment on above: Performed By: #### L 400.0001, M100.2200 ####[facility] [address] [place], [address] Bilirubin Test strip Ql (U)O rdered By: Devendra Beverly on 03-30-2025 Bilirubin Ql (U) Negative Negative [facility] Ketones Test strip Ql (U)Ord ered By: Devendra Beverly on 03-30-2025 Ketones Ql (U) Negative Negative [facility] Microscopic analysis of urin e for red blood cells (RBC)Ordered By: Devendra Beverly on 03-30-2025 Microscopic analysis of urine for red blood cells (RBC) 0 SEEN /hpf 0-5 [facility] Mucus LM Ql (Urine sed)Order ed By: Devendra Beverly on 03-30-2025 Mucus Ql (Urine sed) 0 SEEN /hpf [facility] Nitrite Test strip Ql (U)Ord ered By: Devendra Beverly on 03-30-2025 Nitrite Ql (U) Negative Negative [facility] Protein Test strip Ql (U)Ord ered By: Devendra Beverly on 03-30-2025 Protein Ql (U) 100 mg/dl High Negative [facility] Squamous epithelial cells de tection in urine sediment by light microscopyOrdered By: Devendra Beverly on 03-30-2025 Epithelial cells.squamous LM Ql (Urine sed) 0-5 SEEN /hpf 5-10 [facility] Transitional cells detection in urine sediment by light microscopyOrdered By: Devendra Beverly on 03-30-2025 Transitional cells LM Ql (Urine sed) 0-5 SEEN /hpf 0-5 [facility] Urinalysis, Completeon 03-30 BACTERIA 1+ /hpf Normal None Seen [facility] Comment on above: Order Comment: CLEAN CATCH Performed By: #### L 400.0001, M100.2200 ####[facility] [address] [place], [address] EPI,SQUAMOUS 0-5 SEEN Normal 5-10 [facility] Comment on above: Order Comment: CLEAN CATCH Performed By: #### L 400.0001, M100.2200 ####[facility] [address] [place], [address] WBC 25-50 SEEN Normal 0-5 [facility] Comment on above: Order Comment: CLEAN CATCH Performed By: #### L 400.0001, M100.2200 ####[facility] [address] [place], [address] EPI,TRANSITION 0-5 SEEN Normal 0-5 [facility] Comment on above: Order Comment: CLEAN CATCH Performed By: #### L 400.0001, M100.2200 ####[facility] [address] [place], [address] Mucus Ql (Urine sed) 0 SEEN Normal [facility] Comment on above: Order Comment: CLEAN CATCH Performed By: #### L 400.0001, M100.2200 ####[facility] [address] [place], [address] RBC 0 SEEN Normal 0-5 [facility] Comment on above: Order Comment: CLEAN CATCH Performed By: #### L 400.0001, M100.2200 ####[facility] [address] [place], [address] Urine clarityOrdered By: Tee Beverly on 03-30-2025 Clarity (U) Sl. Cloudy Clear [facility] Urine color determinationOrd ered By: Devendra Beverly on 03-30-2025 Color (U) Yellow Yellow [facility] Urine cultureOrdered By: Tee Beverly on 03-30-2025 Bacteria identified Cx Nom (U) Morganella morganii sp morgani Abnormal [facility] Urine glucose detectionOrder ed By: Devendra Beverly on 03-30-2025 Glucose Ql (U) 100 mg/dl High Normal [facility] Urine leukocyte esterase det ection by dipstickOrdered By: Devendra Beverly on 03-30-2025 Leukocyte esterase Test strip Ql (U) 500 /ul High Negative [facility] Urine pHOrdered By: Devendra warren on 03-30-2025 pH (U) 7.0 [pH] 5.0 - 8.0 [facility] Urine sediment bacteria coun t by microscopy (number/high power field)Ordered By: Devendra Beverly on 03-30-2025 Bacteria LM.HPF (Urine sed) [#/Area] 1 /[HPF] None Seen [facility] Urine specific gravity measu rementOrdered By: Devendra Beverly on 03-30-2025 Specific gravity (U) [Rel density] 1.010 1.002-1.030 [facility] Urine urobilinogen measureme ntOrdered By: Devendra Beverly on 03-30-2025 Urobilinogen Ql (U) Normal mg/dl Normal [facility] White blood cell countOrdere d By: Devendra Beverly on 03-30-2025 White blood cell count 25-50 SEEN /hpf 0-5 [facility] Magnesiumon 02-12-2025 Magnesium [Mass/Vol] 2.2 mg/dL Normal 1.5-2.2 [facility] Comment on above: Performed By: #### L 501.5200 ####[facility] [address] [place], [address] Magnesium measurement (mass/ volume)Ordered By: Devendra Beverly on 02-12-2025 Magnesium (Unsp spec) [Mass/Vol] 2.2 mg/dL 1.5-2.2 [facility] Vitamin D,25 Hydroxyon 01-13 Vitamin D 25-OH 57.4 ng/mL Normal 30-100 [facility] Comment on above: Order Comment: 516-1 Result Comment: Lois min D StatusDeficiency: <20 ng/mL (50nmol/L)Insufficiency: 20-30 ng/mL (50-75 nmol/L)Sufficiency: 30-100 ng/mL (75-250 nmol/L)Toxicity: >100 ng/mL (>250 nmol/L) Performed By: #### L 506.1001 ####[facility] [address] [place], [address] Anion gap in Serum or Plasma Ordered By: Johana Landrum on 12-02-2024 Anion gap [Moles/Vol] 17 mmol/L High 5-15 [facility] BUN/creatinine ratioOrdered By: Johana Landrum on 12-02-2024 Urea nitrogen/Creatinine [Mass ratio] 13.2 mg/mg 10-20 [facility] Basic Metabolic Profile (BMP )on 12-02-2024 BUN/CRE 13.2 RATIO Normal - [facility] Comment on above: Order Comment: 516.1 Performed By: #### L 506.1001, L100.0500, L500.2500, L501.0900 ####[facility] [address] [place], [address] Calcium [Mass/Vol] 9.4 mg/dL Normal 7.6-11.0 [facility] Comment on above: Order Comment: 516.1 Performed By: #### L 506.1001, L100.0500, L500.2500, L501.0900 ####[facility] [address] [place], [address] Chloride [Moles/Vol] 105 mmol/L Normal 98-108 [facility] Comment on above: Order Comment: 516.1 Performed By: #### L 506.1001, L100.0500, L500.2500, L501.0900 ####[facility] [address] [place], [address] CO2 [Moles/Vol] 19.6 mmol/L Low 21.0-32.0 [facility] Comment on above: Order Comment: 516.1 Performed By: #### L 506.1001, L100.0500, L500.2500, L501.0900 ####[facility] [address] [place], [address] Creatinine [Mass/Vol] 3.79 mg/dL High 0.70-1.20 [facility] Comment on above: Order Comment: 516.1 Performed By: #### L 506.1001, L100.0500, L500.2500, L501.0900 ####[facility] [address] [place], [address] GAP 17 High 5-15 [facility] Comment on above: Order Comment: 516.1 Performed By: #### L 506.1001, L100.0500, L500.2500, L501.0900 ####[facility] [address] [place], [address] GFR/1.73 sq M.predicted among non-blacks MDRD (S/P/Bld) [Vol rate/Area] 12 mL/min/{1.73_m2} Low >60 [facility] Comment on above: Order Comment: 516.1 Result Comment: mL/m in/1.73m2 CKD-EPI Creatinine Equation (2020) Performed By: #### L 506.1001, L100.0500, L500.2500, L501.0900 ####[facility] [address] [place], [address] Glucose [Mass/Vol] 127 mg/dL High 70-99 [facility] Comment on above: Order Comment: 516.1 Performed By: #### L 506.1001, L100.0500, L500.2500, L501.0900 ####[facility] [address] [place], [address] Potassium [Moles/Vol] 3.7 mmol/L Normal 3.3-5.1 [facility] Comment on above: Order Comment: 516.1 Performed By: #### L 506.1001, L100.0500, L500.2500, L501.0900 ####[facility] [address] [place], [address] Sodium [Moles/Vol] 141 mmol/L Normal 133-145 [facility] Comment on above: Order Comment: 516.1 Performed By: #### L 506.1001, L100.0500, L500.2500, L501.0900 ####[facility] [address] [place], [address] Urea nitrogen [Mass/Vol] 50 mg/dL High 4-19 [facility] Comment on above: Order Comment: 516.1 Performed By: #### L 506.1001, L100.0500, L500.2500, L501.0900 ####[facility] [address] [place], [address] CBC-Complete Blood Cnt No Di ffon 12-02-2024 Erythrocyte distribution width (RBC) [Ratio] 11.9 % Normal 11.6-14.6 [facility] Comment on above: Order Comment: 516.1 Performed By: #### L 506.1001, L100.0500, L500.2500, L501.0900 ####[facility] [address] [place], [address] Hematocrit (Bld) [Volume fraction] 28.2 % Low 37-47 [facility] Comment on above: Order Comment: 516.1 Performed By: #### L 506.1001, L100.0500, L500.2500, L501.0900 ####[facility] [address] [place], [address] Hemoglobin (Bld) [Mass/Vol] 9.8 g/dL Low 12.0-15.0 [facility] Comment on above: Order Comment: 516.1 Performed By: #### L 506.1001, L100.0500, L500.2500, L501.0900 ####[facility] [address] [place], [address] MCH (RBC) [Entitic mass] 32.1 pg High 27.0-32.0 [facility] Comment on above: Order Comment: 516.1 Performed By: #### L 506.1001, L100.0500, L500.2500, L501.0900 ####[facility] [address] [place], [address] MCHC (RBC) [Mass/Vol] 34.8 g/dL Normal 32-36 [facility] Comment on above: Order Comment: 516.1 Performed By: #### L 506.1001, L100.0500, L500.2500, L501.0900 ####[facility] [address] [place], [address] MCV (RBC) [Entitic vol] 92.5 fL Normal 81-99 [facility] Comment on above: Order Comment: 516.1 Performed By: #### L 506.1001, L100.0500, L500.2500, L501.0900 ####[facility] [address] [place], [address] Platelet mean volume (Bld) [Entitic vol] 10.3 fL Normal 6.2-12.0 [facility] Comment on above: Order Comment: 516.1 Performed By: #### L 506.1001, L100.0500, L500.2500, L501.0900 ####[facility] [address] [place], [address] Platelets (Bld) [#/Vol] 341 10*3/uL Normal 150-450 [facility] Comment on above: Order Comment: 516.1 Performed By: #### L 506.1001, L100.0500, L500.2500, L501.0900 ####[facility] [address] [place], [address] RBC (Bld) [#/Vol] 3.05 10*6/uL Low 4.2-5.4 [facility] Comment on above: Order Comment: 516.1 Performed By: #### L 506.1001, L100.0500, L500.2500, L501.0900 ####[facility] [address] [place], [address] RDW SD 39.9 fl Normal 35.1-43.9 [facility] Comment on above: Order Comment: 516.1 Performed By: #### L 506.1001, L100.0500, L500.2500, L501.0900 ####[facility] [address] [place], [address] WBC (Bld) [#/Vol] 10.2 10*3/uL Normal 4.4-11.0 [facility] Comment on above: Order Comment: 516.1 Performed By: #### L 506.1001, L100.0500, L500.2500, L501.0900 ####[facility] [address] [place], [address] Carbon dioxide, total [Moles /volume] in Central venous bloodOrdered By: Johana Landrum on 12-02-2024 CO2 [Moles/Vol] 19.6 mmol/L Low 21.0-32.0 [facility] Chloride assayOrdered By: Jake Landrum on 12-02-2024 Chloride [Moles/Vol] 105 mmol/L 98-108 [facility] Creatinine Unsp time (U) [Ma ss/Vol]Ordered By: Johana Landrum on 12-02-2024 Creatinine (U) [Mass/Vol] 48.90 mg/dL 28.00-217.0 0 [facility] Erythrocyte distribution wid th (RBC) [Ratio]Ordered By: Johana Landrum on 12-02-2024 Erythrocyte distribution width (RBC) [Entitic vol] 39.9 fL 35.1-43.9 [facility] Erythrocyte distribution wid th ratioOrdered By: Johana Landrum on 12-02-2024 Erythrocyte distribution width (RBC) [Ratio] 11.9 % 11.6-14.6 [facility] Erythrocyte distribution wid th standard deviationOrdered By: Johanajosé manuel Landrum on 12-02-2024 Erythrocyte distribution width (RBC) [Ratio] 39.9 fl 35.1-43.9 [facility] GFR/1.73 sq M.predicted sharif g non-blacks MDRD (S/P/Bld) [Vol rate/Area]Ordered By: Johana Landrum on 12-02-2024 Estimated GFR (MDRD) Non-Af Amer 12 Low >60 [facility] Comment on above: mL/min/1.73m2 CKD-EP I Creatinine Equation (2020) Glomerular filtration rate ( GFR) estimation/1.73 sq m using serum, plasma, or whole bOrdered By: Johana Landrum on 12-02-2024 GFR/1.73 sq M.predicted among non-blacks MDRD (S/P/Bld) [Vol rate/Area] 12 mL/min/{1.73_m2} Low >60 [facility] Comment on above: mL/min/1.73m2 CKD-EP I Creatinine Equation (2020) Hematocrit Auto (Bld) [Volum e fraction]Ordered By: Johana Landrum on 12-02-2024 Hematocrit (Bld) [Volume fraction] 28.2 % Low 37-47 [facility] Hemoglobin measurementOrdere d By: Johana Landrum on 12-02-2024 Hemoglobin (Bld) [Mass/Vol] 9.8 g/dL Low 12.0-15.0 [facility] L506.1001on 12-02-2024 Vitamin D 25-OH 31.9 ng/mL Normal 30-100 [facility] Comment on above: Order Comment: 516.1 Result Comment: Lois min D StatusDeficiency: <20 ng/mL (50nmol/L)Insufficiency: 20-30 ng/mL (50-75 nmol/L)Sufficiency: 30-100 ng/mL (75-250 nmol/L)Toxicity: >100 ng/mL (>250 nmol/L) Performed By: #### L 506.1001, L100.0500, L500.2500, L501.0900 ####[facility] [address] [place], [id number] MCV (mean corpuscular volume ) determinationOrdered By: Johana Landrum on 12-02-2024 MCV (RBC) [Entitic vol] 92.5 fL 81-99 [facility] Mean corpuscular hemoglobin (MCH) determinationOrdered By: Johana Landrum on 12-02-2024 MCH (RBC) [Entitic mass] 32.1 pg High 27.0-32.0 [facility] Mean corpuscular hemoglobin concentration (MCHC) determinationOrdered By: Johana Landrum on 12-02-2024 MCHC (RBC) [Mass/Vol] 34.8 g/dL 32-36 [facility] Mean platelet volume determi nationOrdered By: Johana Landrum on 12-02-2024 Platelet mean volume (Bld) [Entitic vol] 10.3 fL 6.2-12.0 [facility] Platelet countOrdered By: Jake Landrum on 12-02-2024 Platelets (Bld) [#/Vol] 341 10*3/uL 150-450 [facility] Potassium (Unsp spec) [Mass/ Vol]Ordered By: Johana Landrum on 12-02-2024 Potassium [Moles/Vol] 3.7 mmol/L 3.3-5.1 [facility] Potassium measurement (mass/ volume)Ordered By: Johana Landrum on 12-02-2024 Potassium (Unsp spec) [Mass/Vol] 3.7 mmol/L 3.3-5.1 [facility] Protein+Creatinine Ratio,Uri neon 12-02-2024 PROT:CRE RATIO 1973 mg/g CRE High 0-200 [facility] Comment on above: Performed By: #### L 506.1001, L100.0500, L500.2500, L501.0900 ####[facility] [address] [place], [address] Protein (U) [Mass/Vol] 96.5 mg/dL High 0.0-12.0 [facility] Comment on above: Performed By: #### L 506.1001, L100.0500, L500.2500, L501.0900 ####[facility] [address] [place], [address] UR CREAT 48.90 mg/dL Normal 28.00-217.0 0 [facility] Comment on above: Performed By: #### L 506.1001, L100.0500, L500.2500, L501.0900 ####[facility] [address] [place], [address] Protein/Creatinine (U) [Mass ratio]Ordered By: Johana Landrum on 12-02-2024 Urine Protein/Creatinine Ratio 1973 mg/g CRE High 0-200 [facility] RBC Auto (Bld) [#/Vol]Ordere d By: Johana Landrum on 12-02-2024 RBC (Bld) [#/Vol] 3.05 10*6/uL Low 4.2-5.4 [facility] Random urine creatinine yamil urement (mass/volume)Ordered By: Johana Landrum on 12-02-2024 Creatinine Unsp time (U) [Mass/Vol] 48.90 mg/dL 28.00-217.0 0 [facility] Serum creatinine measurement (mass/volume)Ordered By: Johana Landrum on 12-02-2024 Creatinine [Mass/Vol] 3.79 mg/dL High 0.70-1.20 [facility] Serum glucose measurement (m ass/volume)Ordered By: Johana Landrum on 12-02-2024 Glucose [Mass/Vol] 127 mg/dL High 70-99 [facility] Serum or plasma calcium yamil urement (mass/volume)Ordered By: Johana Landrum on 12-02-2024 Calcium [Mass/Vol] 9.4 mg/dL 7.6-11.0 [facility] Serum or plasma urea nitroge n measurement (mass/volume)Ordered By: Johana Landrum on 12-02-2024 Urea nitrogen [Mass/Vol] 50 mg/dL High 4-19 [facility] Sodium levelOrdered By: Doris Landrum on 12-02-2024 Sodium [Moles/Vol] 141 mmol/L 133-145 [facility] Urine protein measurement (m ass/volume)Ordered By: Johana Landrum on 12-02-2024 Protein (U) [Mass/Vol] 96.5 mg/dL High 0.0-12.0 [facility] Urine protein/creatinine mas s ratioOrdered By: Johana Landrum on 12-02-2024 Protein/Creatinine (U) [Mass ratio] 1973 mg/g CRE High 0-200 [facility] Vitamin D, 25-hydroxyOrdered By: Johana Landrum on 12-02-2024 Vitamin D 25-Hydroxy 31.9 ng/mL 30-100 [facility] Comment on above: Vitamin D StatusDefi ciency: <20 ng/mL (50nmol/L)Insufficiency: 20-30 ng/mL (50-75 nmol/L)Sufficiency: 30-100 ng/mL (75-250 nmol/L)Toxicity: >100 ng/mL (>250 nmol/L) White blood cell (WBC) count Ordered By: Johana Landrum on 12-02-2024 WBC (Bld) [#/Vol] 10.2 10*3/uL 4.4-11.0 [facility] Absolute lymphocyte countOrd ered By: Johana Landrum on 11-30-2024 Lymphocytes Auto (Unsp spec) [#/Vol] 2.30 10*3/uL 0.83-4.51 [facility] Absolute neutrophil countOrd ered By: Johanajosé manuel Landrum on 11-30-2024 Neutrophils (Bld) [#/Vol] 6.5 10*3/uL 2.0-7.7 [facility] Anion gap in Serum or Plasma Ordered By: Johana Landrum on 11-30-2024 Anion gap [Moles/Vol] 17 mmol/L High 5-15 [facility] Automated lymphocyte count a s percentage of total leukocytesOrdered By: Johana Landrum on 11-30-2024 Lymphocytes/100 WBC Auto (Unsp spec) 22.4 % 19-41 [facility] BUN/creatinine ratioOrdered By: Johanajosé manuel Landrum on 11-30-2024 Urea nitrogen/Creatinine [Mass ratio] 12.9 mg/mg 10-20 [facility] Basophil percentageOrdered B y: Johana Landrum on 11-30-2024 Basophils/100 WBC (Bld) 0.7 % 0-1 [facility] Bilirubin, totalOrdered By: Johana Landrum on 11-30-2024 Bilirubin [Mass/Vol] 0.18 mg/dL 0.00-1.30 [facility] CBC W/Diff, Automatedon 11-02 Absolute Lymph 2.30 X10 3/uL Normal 0.83-4.51 [facility] Comment on above: Order Comment: 516.1 Performed By: #### L 500.4050, L501.5200, L100.0100 ####[facility] [address] [place], [place], [id number] Absolute Neut 6.5 X10 3/uL Normal 2.0-7.7 [facility] Comment on above: Order Comment: 516.1 Performed By: #### L 500.4050, L501.5200, L100.0100 ####[facility] [address] [place], [address] Basophils/100 WBC (Bld) 0.7 % Normal 0-1 [facility] Comment on above: Order Comment: 516.1 Performed By: #### L 500.4050, L501.5200, L100.0100 ####[facility] [address] [place], [address] Eosinophils/100 WBC (Bld) 3.4 % Normal 0-5 [facility] Comment on above: Order Comment: 516.1 Performed By: #### L 500.4050, L501.5200, L100.0100 ####[facility] [address] [place], [address] Erythrocyte distribution width (RBC) [Ratio] 11.9 % Normal 11.6-14.6 [facility] Comment on above: Order Comment: 516.1 Performed By: #### L 500.4050, L501.5200, L100.0100 ####[facility] [address] [place], [address] Hematocrit (Bld) [Volume fraction] 28.3 % Low 37-47 [facility] Comment on above: Order Comment: 516.1 Performed By: #### L 500.4050, L501.5200, L100.0100 ####[facility] [address] [place], [address] Hemoglobin (Bld) [Mass/Vol] 9.5 g/dL Low 12.0-15.0 [facility] Comment on above: Order Comment: 516.1 Performed By: #### L 500.4050, L501.5200, L100.0100 ####[facility] [address] [place], [address] IG% 1.000 High 0.0-0.9 [facility] Comment on above: Order Comment: 516.1 Result Comment: IG% - Immature Granulocytes (promyelocytes, myelocytes andmetamyelocytes) > 1% indicates that a LEFT SHIFT is Present. Performed By: #### L 500.4050, L501.5200, L100.0100 ####[facility] [address] [place], [address] Lymphocytes/100 WBC (Bld) 22.4 % Normal 19-41 [facility] Comment on above: Order Comment: 516.1 Performed By: #### L 500.4050, L501.5200, L100.0100 ####[facility] [address] [place], [address] MCH (RBC) [Entitic mass] 31.1 pg Normal 27.0-32.0 [facility] Comment on above: Order Comment: 516.1 Performed By: #### L 500.4050, L501.5200, L100.0100 ####[facility] [address] [place], [address] MCHC (RBC) [Mass/Vol] 33.6 g/dL Normal 32-36 [facility] Comment on above: Order Comment: 516.1 Performed By: #### L 500.4050, L501.5200, L100.0100 ####[facility] [address] [place], [address] MCV (RBC) [Entitic vol] 92.8 fL Normal 81-99 [facility] Comment on above: Order Comment: 516.1 Performed By: #### L 500.4050, L501.5200, L100.0100 ####[facility] [address] [place], [address] Monocytes/100 WBC (Bld) 9.5 % Normal 0-10 [facility] Comment on above: Order Comment: 516.1 Performed By: #### L 500.4050, L501.5200, L100.0100 ####[facility] [address] [place], [address] Neutrophils/100 WBC (Bld) 63.0 % Normal 47-70 [facility] Comment on above: Order Comment: 516.1 Performed By: #### L 500.4050, L501.5200, L100.0100 ####[facility] [address] [place], [address] Nucleated RBC (Bld) [#/Vol] 0 10*3/uL Normal 0-5 [facility] Comment on above: Order Comment: 516.1 Performed By: #### L 500.4050, L501.5200, L100.0100 ####[facility] [address] [place], [address] Platelet mean volume (Bld) [Entitic vol] 10.1 fL Normal 6.2-12.0 [facility] Comment on above: Order Comment: 516.1 Performed By: #### L 500.4050, L501.5200, L100.0100 ####[facility] [address] [place], [address] Platelets (Bld) [#/Vol] 335 10*3/uL Normal 150-450 [facility] Comment on above: Order Comment: 516.1 Performed By: #### L 500.4050, L501.5200, L100.0100 ####[facility] [address] [place], [address] RBC (Bld) [#/Vol] 3.05 10*6/uL Low 4.2-5.4 [facility] Comment on above: Order Comment: 516.1 Performed By: #### L 500.4050, L501.5200, L100.0100 ####[facility] [address] [place], [address] RDW SD 40.1 fl Normal 35.1-43.9 [facility] Comment on above: Order Comment: 516.1 Performed By: #### L 500.4050, L501.5200, L100.0100 ####[facility] [address] [place], [address] WBC (Bld) [#/Vol] 10.3 10*3/uL Normal 4.4-11.0 [facility] Comment on above: Order Comment: 516.1 Performed By: #### L 500.4050, L501.5200, L100.0100 ####[facility] [address] [place], [address] Carbon dioxide, total [Moles /volume] in Central venous bloodOrdered By: Johana Landrum on 11-30-2024 CO2 [Moles/Vol] 18.2 mmol/L Low 21.0-32.0 [facility] Chloride assayOrdered By: Jake Landrum on 11-30-2024 Chloride [Moles/Vol] 105 mmol/L 98-108 [facility] Comprehensive Metabolic Prof ilon 11-30-2024 Albumin [Mass/Vol] 4.3 g/dL Normal 3.4-4.8 [facility] Comment on above: Order Comment: 516.1 Performed By: #### L 500.4050, L501.5200, L100.0100 ####[facility] [address] [place], [address] Albumin/Globulin [Mass ratio] 1.8 {ratio} Normal 0.9-2.4 [facility] Comment on above: Order Comment: 516.1 Performed By: #### L 500.4050, L501.5200, L100.0100 ####[facility] [address] [place], [address] ALK PHOS 73 U/L Normal 35-104 [facility] Comment on above: Order Comment: 516.1 Performed By: #### L 500.4050, L501.5200, L100.0100 ####[facility] [address] [place], [address] ALT [Catalytic activity/Vol] 12 U/L Normal <=34 [facility] Comment on above: Order Comment: 516.1 Performed By: #### L 500.4050, L501.5200, L100.0100 ####[facility] [address] [place], [address] AST [Catalytic activity/Vol] 17 U/L Normal <=31 [facility] Comment on above: Order Comment: 516.1 Performed By: #### L 500.4050, L501.5200, L100.0100 ####[facility] [address] [place], [address] Bilirubin [Mass/Vol] 0.18 mg/dL Normal 0.00-1.30 [facility] Comment on above: Order Comment: 516.1 Performed By: #### L 500.4050, L501.5200, L100.0100 ####[facility] [address] [place], [address] BUN/CRE 12.9 RATIO Normal 10-20 [facility] Comment on above: Order Comment: 516.1 Performed By: #### L 500.4050, L501.5200, L100.0100 ####[facility] [address] [place], [address] Calcium [Mass/Vol] 9.6 mg/dL Normal 7.6-11.0 [facility] Comment on above: Order Comment: 516.1 Performed By: #### L 500.4050, L501.5200, L100.0100 ####[facility] [address] [place], [address] Chloride [Moles/Vol] 105 mmol/L Normal 98-108 [facility] Comment on above: Order Comment: 516.1 Performed By: #### L 500.4050, L501.5200, L100.0100 ####[facility] [address] [place], [address] CO2 [Moles/Vol] 18.2 mmol/L Low 21.0-32.0 [facility] Comment on above: Order Comment: 516.1 Performed By: #### L 500.4050, L501.5200, L100.0100 ####[facility] [address] [place], [address] Creatinine [Mass/Vol] 3.82 mg/dL High 0.70-1.20 [facility] Comment on above: Order Comment: 516.1 Performed By: #### L 500.4050, L501.5200, L100.0100 ####[facility] [address] [place], [address] GAP 17 High 5-15 [facility] Comment on above: Order Comment: 516.1 Performed By: #### L 500.4050, L501.5200, L100.0100 ####[facility] [address] [place], [address] GFR/1.73 sq M.predicted among non-blacks MDRD (S/P/Bld) [Vol rate/Area] 12 mL/min/{1.73_m2} Low >60 [facility] Comment on above: Order Comment: 516.1 Result Comment: mL/m in/1.73m2 CKD-EPI Creatinine Equation (2020) Performed By: #### L 500.4050, L501.5200, L100.0100 ####[facility] [address] [place], [address] Globulin (S) [Mass/Vol] 2.4 g/dL Normal 2.2-4.2 [facility] Comment on above: Order Comment: 516.1 Performed By: #### L 500.4050, L501.5200, L100.0100 ####[facility] [address] [place], [address] Glucose [Mass/Vol] 93 mg/dL Normal 70-99 [facility] Comment on above: Order Comment: 516.1 Performed By: #### L 500.4050, L501.5200, L100.0100 ####[facility] [address] [place], [address] Potassium [Moles/Vol] 3.7 mmol/L Normal 3.3-5.1 [facility] Comment on above: Order Comment: 516.1 Performed By: #### L 500.4050, L501.5200, L100.0100 ####[facility] [address] [place], [address] Sodium [Moles/Vol] 140 mmol/L Normal 133-145 [facility] Comment on above: Order Comment: 516.1 Performed By: #### L 500.4050, L501.5200, L100.0100 ####[facility] [address] [place], [address] T PROT 6.7 g/dL Normal 5.9-8.4 [facility] Comment on above: Order Comment: 516.1 Performed By: #### L 500.4050, L501.5200, L100.0100 ####[facility] [address] [place], [address] Urea nitrogen [Mass/Vol] 49 mg/dL High 4-19 [facility] Comment on above: Order Comment: 516.1 Performed By: #### L 500.4050, L501.5200, L100.0100 ####[facility] [address] [place], [address] Eosinophil percentageOrdered By: Johana Landrum on 11-30-2024 Eosinophils/100 WBC (Bld) 3.4 % 0-5 [facility] Erythrocyte distribution wid th (RBC) [Ratio]Ordered By: Johana Landrum on 11-30-2024 Erythrocyte distribution width (RBC) [Entitic vol] 40.1 fL 35.1-43.9 [facility] Erythrocyte distribution wid th ratioOrdered By: Johana Landrum on 11-30-2024 Erythrocyte distribution width (RBC) [Ratio] 11.9 % 11.6-14.6 [facility] Erythrocyte distribution wid th standard deviationOrdered By: Johana Landrum on 11-30-2024 Erythrocyte distribution width (RBC) [Ratio] 40.1 fl 35.1-43.9 [facility] GFR/1.73 sq M.predicted sharif g non-blacks MDRD (S/P/Bld) [Vol rate/Area]Ordered By: Johana Landrum on 11-30-2024 Estimated GFR (MDRD) Non-Af Amer 12 Low >60 [facility] Comment on above: mL/min/1.73m2 CKD-EP I Creatinine Equation (2020) Glomerular filtration rate ( GFR) estimation/1.73 sq m using serum, plasma, or whole bOrdered By: Johana Landrum on 11-30-2024 GFR/1.73 sq M.predicted among non-blacks MDRD (S/P/Bld) [Vol rate/Area] 12 mL/min/{1.73_m2} Low >60 [facility] Comment on above: mL/min/1.73m2 CKD-EP I Creatinine Equation (2020) Hematocrit Auto (Bld) [Volum e fraction]Ordered By: Johana Landrum on 11-30-2024 Hematocrit (Bld) [Volume fraction] 28.3 % Low 37-47 [facility] Hemoglobin measurementOrdere d By: Johana Landrum on 11-30-2024 Hemoglobin (Bld) [Mass/Vol] 9.5 g/dL Low 12.0-15.0 [facility] Immature granulocytes/100 WB C Auto (Bld)Ordered By: Johana Landrum on 11-30-2024 Immature granulocytes/100 WBC (Bld) 1.000 % High 0.0-0.9 [facility] Comment on above: IG% - Immature Granu locytes (promyelocytes, myelocytes and metamyelocytes) > 1% indicates that a LEFT SHIFT is Present. Laboratory - Chemistry and C hemistry - challengeOrdered By: Johana Landrum on 11-30-2024 AST [Catalytic activity/Vol] 17 U/L <32 [facility] Lymphocytes Auto (Unsp spec) [#/Vol]Ordered By: Johanajosé manuel Landrum on 11-30-2024 Lymphocytes (Bld) [#/Vol] 2.30 10*3/uL 0.83-4.51 [facility] Lymphocytes/100 WBC Auto (Un sp spec)Ordered By: Johana Landrum on 11-30-2024 Lymphocytes/100 WBC (Bld) 22.4 % 19-41 [facility] MCV (mean corpuscular volume ) determinationOrdered By: Johana Landrum on 11-30-2024 MCV (RBC) [Entitic vol] 92.8 fL 81-99 [facility] Magnesiumon 11-30-2024 Magnesium [Mass/Vol] 2.1 mg/dL Normal 1.5-2.2 [facility] Comment on above: Order Comment: 516.1 Performed By: #### L 500.4050, L501.5200, L100.0100 ####[facility] [address] [place], [place], [address] Magnesium (Unsp spec) [Mass/ Vol]Ordered By: Johana Landrum on 11-30-2024 Magnesium [Mass/Vol] 2.1 mg/dL 1.5-2.2 [facility] Magnesium measurement (mass/ volume)Ordered By: Johana Landrum on 11-30-2024 Magnesium (Unsp spec) [Mass/Vol] 2.1 mg/dL 1.5-2.2 [facility] Mean corpuscular hemoglobin (MCH) determinationOrdered By: Johana Landrum on 11-30-2024 MCH (RBC) [Entitic mass] 31.1 pg 27.0-32.0 [facility] Mean corpuscular hemoglobin concentration (MCHC) determinationOrdered By: Johana Landrum on 11-30-2024 MCHC (RBC) [Mass/Vol] 33.6 g/dL 32-36 [facility] Mean platelet volume determi nationOrdered By: Johana Landrum on 11-30-2024 Platelet mean volume (Bld) [Entitic vol] 10.1 fL 6.2-12.0 [facility] Monocyte percentageOrdered B y: Johana Landrum on 11-30-2024 Monocytes/100 WBC (Bld) 9.5 % 0-10 [facility] Neutrophil percentageOrdered By: Johana Landrum on 11-30-2024 Neutrophils/100 WBC (Bld) 63.0 % 47-70 [facility] Nucleated red blood cell per centageOrdered By: Johana Landrum on 11-30-2024 Nucleated RBC/100 WBC (Bld) [Ratio] 0 % 0-5 [facility] Platelet countOrdered By: Jake Landrum on 11-30-2024 Platelets (Bld) [#/Vol] 335 10*3/uL 150-450 [facility] Potassium (Unsp spec) [Mass/ Vol]Ordered By: Johana Landrum on 11-30-2024 Potassium [Moles/Vol] 3.7 mmol/L 3.3-5.1 [facility] Potassium measurement (mass/ volume)Ordered By: Johana Landrum on 11-30-2024 Potassium (Unsp spec) [Mass/Vol] 3.7 mmol/L 3.3-5.1 [facility] RBC Auto (Bld) [#/Vol]Ordere d By: Johana Landrum on 11-30-2024 RBC (Bld) [#/Vol] 3.05 10*6/uL Low 4.2-5.4 [facility] Serum creatinine measurement (mass/volume)Ordered By: Johana Landrum on 11-30-2024 Creatinine [Mass/Vol] 3.82 mg/dL High 0.70-1.20 [facility] Serum globulin measurementOr dered By: Johana Landrum on 11-30-2024 Globulin (S) [Mass/Vol] 2.4 g/dL 2.2-4.2 [facility] Serum glucose measurement (m ass/volume)Ordered By: Johana Landrum on 11-30-2024 Glucose [Mass/Vol] 93 mg/dL 70-99 [facility] Serum or plasma alanine mckeon otransferase (ALT) measurementOrdered By: Johana Landrum on 11-30-2024 ALT [Catalytic activity/Vol] 12 U/L <35 [facility] Serum or plasma albumin yamil urement (mass/volume)Ordered By: Johana Landrum on 11-30-2024 Albumin [Mass/Vol] 4.3 g/dL 3.4-4.8 [facility] Serum or plasma albumin/glob ulin mass ratioOrdered By: Johana Landrum on 11-30-2024 Albumin/Globulin [Mass ratio] 1.8 {ratio} 0.9-2.4 [facility] Serum or plasma alkaline anthony sphatase measurementOrdered By: Johana Landrum on 11-30-2024 ALP [Catalytic activity/Vol] 73 U/L 35-104 [facility] Serum or plasma calcium yamil urement (mass/volume)Ordered By: Johana Lanrdum on 11-30-2024 Calcium [Mass/Vol] 9.6 mg/dL 7.6-11.0 [facility] Serum or plasma urea nitroge n measurement (mass/volume)Ordered By: Johana Landrum on 11-30-2024 Urea nitrogen [Mass/Vol] 49 mg/dL High 4-19 [facility] Sodium levelOrdered By: Doris Landrum on 11-30-2024 Sodium [Moles/Vol] 140 mmol/L 133-145 [facility] Total proteinOrdered By: Daisy Landrum on 11-30-2024 Protein [Mass/Vol] 6.7 g/dL 5.9-8.4 [facility] White blood cell (WBC) count Ordered By: Johana Landrum on 11-30-2024 WBC (Bld) [#/Vol] 10.3 10*3/uL 4.4-11.0 [facility] Urine Cultureon 09-24-2024 URC Normal [facility] Comment on above: Performed By: #### M 100.2200, L400.0001 ####[facility] [address] [place], [address] Bilirubin Test strip Ql (U)O rdered By: Johana Landrum on 09-21-2024 Bilirubin Ql (U) Negative Negative [facility] Epithelial cells.squamous LM Ql (Urine sed)Ordered By: Johana Landrum on 09-21-2024 Epithelial cells.squamous LM.HPF (Urine sed) [#/Area] 0 /[HPF] 5-10 [facility] Glucose Ql (U)Ordered By: Jake Landrum on 09-21-2024 Glucose (U) [Mass/Vol] 50 mg/dL High Normal [facility] Ketones Test strip Ql (U)Ord ered By: Johana Landrum on 09-21-2024 Ketones Ql (U) Negative Negative [facility] Microscopic analysis of urin e for red blood cells (RBC)Ordered By: Johana Landrum on 09-21-2024 Urine RBC 0 SEEN /hpf 0-5 [facility] Mucus LM Ql (Urine sed)Order ed By: Johana Landrum on 09-21-2024 Mucus Ql (Urine sed) 0 SEEN /hpf [facility] Nitrite Test strip Ql (U)Ord ered By: Johana Landrum on 09-21-2024 Nitrite Ql (U) Negative Negative [facility] Protein Test strip Ql (U)Ord ered By: Johana Landrum on 09-21-2024 Protein Ql (U) 100 mg/dl High Negative [facility] Urinalysis, Completeon 09-21 EPI,SQUAMOUS 0-5 SEEN Normal 5-10 [facility] Comment on above: Order Comment: CLEAN CATCH Performed By: #### M 100.2200, L400.0001 ####[facility] [address] [place], [address] WBC 25-50 SEEN Normal 0-5 [facility] Comment on above: Order Comment: CLEAN CATCH Performed By: #### M 100.2200, L400.0001 ####[facility] [address] [place], [address] BACTERIA 0 SEEN Normal None Seen [facility] Comment on above: Order Comment: CLEAN CATCH Performed By: #### M 100.2200, L400.0001 ####[facility] [address] [place], [address] Mucus Ql (Urine sed) 0 SEEN Normal [facility] Comment on above: Order Comment: CLEAN CATCH Performed By: #### M 100.2200, L400.0001 ####[facility] [address] [place], [address] RBC 0 SEEN Normal 0-5 [facility] Comment on above: Order Comment: CLEAN CATCH Performed By: #### M 100.2200, L400.0001 ####[facility] [address] [place], [address] Urine blood detectionOrdered By: Johana Landrum on 09-21-2024 Urine Occult Blood 25 /ul High Negative [facility] Urine clarityOrdered By: Daisy Landrum on 09-21-2024 Clarity (U) Sl. Cloudy Clear [facility] Urine color determinationOrd ered By: Johana Landrum on 09-21-2024 Color (U) Yellow Yellow [facility] Urine cultureOrdered By: Daisy Landrum on 09-21-2024 Bacteria identified Cx Nom (U) ESBL Escherichia coli Abnormal [facility] Urine leukocyte esterase det ection by dipstickOrdered By: Johana Landrum on 09-21-2024 Leukocyte esterase Test strip Ql (U) 500 /ul High Negative [facility] Urine pHOrdered By: Johana payton on 09-21-2024 pH (U) 6.5 [pH] 5.0 - 8.0 [facility] Urine sediment bacteria coun t by microscopy (number/high power field)Ordered By: Johana Landrum on 09-21-2024 Bacteria LM.HPF (Urine sed) [#/Area] 0 /[HPF] None Seen [facility] Urine specific gravity measu rementOrdered By: Johana Landrum on 09-21-2024 Specific gravity (U) [Rel density] 1.010 1.002-1.030 [facility] Urobilinogen Ql (U)Ordered B y: Johana Landrum on 09-21-2024 Urine Urobilinogen Normal mg/dl Normal [facility] White blood cell countOrdere d By: Johana Landrum on 09-21-2024 Urine WBC 25-50 SEEN /hpf 0-5 [facility] High density lipoprotein (HD L) measurementOrdered By: Johana Landrum on 08-31-2024 Cholesterol in HDL [Mass/Vol] 46 mg/dL >40 [facility] Comment on above: The drugs N-Acetylcy steine and Metamizole may falsely depress this assay. Reference Range HDL <40 mg/dL Low HDL Cholesterol HDL >or= 60 mg/dL High HDL Cholesterol Lipid Profileon 08-31-2024 Cholesterol [Mass/Vol] 127 mg/dL Normal 200 [facility] Comment on above: Order Comment: Result Comment: <200 mg/dL Desirable 200-240 mg/dL Borderline >240 mg/dL High Risk Performed By: #### L 500.4100 ####[facility] [address] [place], [address] Cholesterol in HDL [Mass/Vol] 46 mg/dL Normal [facility] Comment on above: Order Comment: 517- Result Comment: The drugs N-Acetylcysteine and Metamizole may falselydepress this assay. Reference Range HDL <40 mg/dL Low HDL Cholesterol HDL >or= 60 mg/dL High HDL Cholesterol Performed By: #### L 500.4100 ####[facility] [address] [place], [address] Cholesterol in LDL [Mass/Vol] 33 mg/dL Normal 0-130 [facility] Comment on above: Order Comment: 517- Performed By: #### L 500.4100 ####[facility] [address] [place], [place], [address] Cholesterol in VLDL [Mass/Vol] 48 mg/dL High 5-40 [facility] Comment on above: Order Comment: 517- Performed By: #### L 500.4100 ####[facility] [address] [place], [address] Triglyceride [Mass/Vol] 241 mg/dL High [facility] Comment on above: Order Comment: - Result Comment: The drugs N-Acetylcysteine and Metamizole may falselydepress this assay.Serum Triglycerides Reference Interval Normal <150 mg/dL Borderline high 150 - 199 mg/dL High 200 - 499 mg/dL Very High > or = 500 mg/dL Performed By: #### L 500.4100 ####[facility] [address] [place], [place], [address] Low density lipoprotein (LDL ) cholesterol measurementOrdered By: Johana Landrum on 08-31-2024 Cholesterol in LDL [Mass/Vol] 33 mg/dL 0-130 [facility] Serum or plasma cholesterol measurement (mass/volume)Ordered By: Johana Landrum on 08-31-2024 Cholesterol [Mass/Vol] 127 mg/dL <200 [facility] Comment on above: <200 mg/dL Desirable 200-240 mg/dL Borderline >240 mg/dL High Risk Triglycerides measurementOrd ered By: Johana Landrum on 08-31-2024 Triglyceride [Mass/Vol] 241 mg/dL High <199 [facility] Comment on above: The drugs N-Acetylcy steine and Metamizole may falsely depress this assay.Serum Triglycerides Reference Interval Normal <150 mg/dL Borderline high 150 - 199 mg/dL High 200 - 499 mg/dL Very High > or = 500 mg/dL Very low density lipoprotein (VLDL) cholesterol measurementOrdered By: Johana Landrum on 08-31-2024 VLDL Cholesterol 48 mg/dL High 5-40 [facility] Automated blood erythrocyte countOrdered By: [facility] RBC (Bld) [#/Vol] 3.24 10*6/uL Low 4.2-5.4 [facility] Comment on above: Order Comment: 517.1 Performed By: #### L 500.2500, L100.0500 ####[facility] [address] [place], [address] Automated blood hematocrit ( percentage)Ordered By: [facility] on 08-27-2024 Hematocrit (Bld) [Volume fraction] 29.9 % Low 37-47 [facility] Comment on above: Order Comment: 517.1 Performed By: #### L 500.2500, L100.0500 ####[facility] [address] [place], [address] Basic Metabolic Profile (BMP )on 08-27-2024 BUN/CRE 17.9 RATIO Normal 10-20 [facility] Comment on above: Order Comment: 517.1 Performed By: #### L 500.2500, L100.0500 ####[facility] [address] [place], [address] CA,Total 8.9 mg/dL Normal 8.5-10.1 [facility] Comment on above: Order Comment: 517.1 Performed By: #### L 500.2500, L100.0500 ####[facility] [address] [place], [address] EST GFR - AA 17 mL/min Low >60 [facility] Comment on above: Order Comment: 517.1 Result Comment: Afri can Ukrainian GFR Calc Performed By: #### L 500.2500, L100.0500 ####[facility] [address] [place], [address] GAP 10 Normal 5-15 [facility] Comment on above: Order Comment: 517.1 Performed By: #### L 500.2500, L100.0500 ####[facility] [address] [place], [address] GFR/1.73 sq M.predicted among non-blacks MDRD (S/P/Bld) [Vol rate/Area] 14 mL/min/{1.73_m2} Low >60 [facility] Comment on above: Order Comment: 517.1 Result Comment: Non- GFR Calc Performed By: #### L 500.2500, L100.0500 ####[facility] [address], [address] Blood urea nitrogen (BUN)/cr eatinine ratioOrdered By: [facility] on 08-27-2024 Urea nitrogen/Creatinine [Mass ratio] 17.9 mg/mg - [facility] CBC-Complete Blood Cnt No Di ffon 08-27-2024 RDW SD 46.5 fl High 35.1-43.9 [facility] Comment on above: Order Comment: 517.1 Performed By: #### L 500.2500, L100.0500 ####[facility] [address] [place], [address] Carbon dioxide measurementOr dered By: [facility] on 08-27-2024 CO2 [Moles/Vol] 22.0 mmol/L Normal 21.0-32.0 [facility] Comment on above: Order Comment: 517.1 Performed By: #### L 500.2500, L100.0500 ####[facility] [address], [address] Chloride measurementOrdered By: [facility] on 08-27-2024 Chloride [Moles/Vol] 106 mmol/L Normal 98-107 [facility] Comment on above: Order Comment: 517.1 Performed By: #### L 500.2500, L100.0500 ####[facility] [address] [place], [address] Erythrocyte distribution wid th (RBC) [Ratio]Ordered By: [facility] on 08-27-2024 Erythrocyte distribution width (RBC) [Entitic vol] 46.5 fL High 35.1-43.9 [facility] Erythrocyte distribution wid th ratioOrdered By: [facility] on 08-27-2024 Erythrocyte distribution width (RBC) [Ratio] 13.7 % Normal 11.6-14.6 [facility] Comment on above: Order Comment: 517.1 Performed By: #### L 500.2500, L100.0500 ####[facility] [address] [place], [place], [address] Estimated glomerular filtrat ion rate (GFR) AmericanOrdered By: [facility] on 08-27-2024 Estimated GFR (MDRD) Amer 17 mL/min Low >60 [facility] Comment on above: GFR Calc Glomerular filtration rate ( GFR) estimationOrdered By: [facility] on 08-27-2024 Estimated GFR (MDRD) Non-Af Amer 14 mL/min Low >60 [facility] Comment on above: Non- GFR Calc Glucose measurementOrdered B y: [facility] on 08-27-2024 Glucose [Mass/Vol] 122 mg/dL High 74-106 [facility] Comment on above: Fasting Glucose resu lt from 100 to 125 mg/dL suggests IMPAIRED HOMEOSTASIS per A.D.A. criteria. Order Comment: 517.1 Result Comment: Fast ing Glucose result from 100 to 125 mg/dLsuggests IMPAIRED HOMEOSTASIS per A.D.A. criteria. Performed By: #### L 500.2500, L100.0500 ####[facility] [address] [place], [place], [id number] Hemoglobin measurementOrdere d By: [facility] on 08-27-2024 Hemoglobin (Bld) [Mass/Vol] 9.7 g/dL Low 12.0-15.0 [facility] Comment on above: Order Comment: 517.1 Performed By: #### L 500.2500, L100.0500 ####[facility] [address] [place], [address] MCV (mean corpuscular volume ) determinationOrdered By: [facility] on 08-27-2024 MCV (RBC) [Entitic vol] 92.3 fL Normal 81-99 [facility] Comment on above: Order Comment: 517.1 Performed By: #### L 500.2500, L100.0500 ####[facility] [address] [place], [address] Mean corpuscular hemoglobin (MCH) determinationOrdered By: [facility] on 08-27-2024 MCH (RBC) [Entitic mass] 29.9 pg Normal 27.0-32.0 [facility] Comment on above: Order Comment: 517.1 Performed By: #### L 500.2500, L100.0500 ####[facility] [address] [place], [address] Mean corpuscular hemoglobin concentration (MCHC) determinationOrdered By: [facility] on 08-27-2024 MCHC (RBC) [Mass/Vol] 32.4 g/dL Normal 32-36 [facility] Comment on above: Order Comment: 517.1 Performed By: #### L 500.2500, L100.0500 ####[facility] [address] [place], [address] Mean platelet volume determi nationOrdered By: [facility] on 08-27-2024 Platelet mean volume (Bld) [Entitic vol] 10.9 fL Normal 6.2-12.0 [facility] Comment on above: Order Comment: 517.1 Performed By: #### L 500.2500, L100.0500 ####[facility] [address] [place], [address] Platelet countOrdered By: [facility] on 08-27-2024 Platelets (Bld) [#/Vol] 292 10*3/uL Normal 150-450 [facility] Comment on above: Order Comment: 517.1 Performed By: #### L 500.2500, L100.0500 ####[facility] [address] [place], [address] Potassium measurementOrdered By: [facility] on 08-27-2024 Potassium [Moles/Vol] 3.5 mmol/L Normal 3.5-5.1 [facility] Comment on above: Order Comment: 517.1 Performed By: #### L 500.2500, L100.0500 ####[facility] [address] [place], [address] Protein+Creatinine Ratio,Uri neon 08-27-2024 PROT:CRE RATIO 3233 mg/g CRE High 0-200 [facility] Comment on above: Performed By: #### L 501.0900 ####[facility] [address] [place], [address] Protein (U) [Mass/Vol] 131.6 mg/dL High <11.9 [facility] Comment on above: Performed By: #### L 501.0900 ####[facility] [address] [place], [address] UR CREAT 40.70 mg/dL Normal NO RANGE EST. [facility] Comment on above: Performed By: #### L 501.0900 ####[facility] [address] [place], [address] Protein/Creatinine (U) [Mass ratio]Ordered By: [facility] on 08-27-2024 Urine Protein/Creatinine Ratio 3233 mg/g CRE High 0-200 [facility] Random urine protein measure mentOrdered By: [facility] on 08-27-2024 Protein (U) [Mass/Vol] 131.6 mg/dL High 0.0-11.8 [facility] Serum anion gap measurementO rdered By: [facility] on 08-27-2024 Anion gap [Moles/Vol] 10 mmol/L 5-15 [facility] Serum or plasma calcium yamil urement (mass/volume)Ordered By: [facility] on 08-27-2024 Calcium [Mass/Vol] 8.9 mg/dL 8.5-10.1 [facility] Serum or plasma creatinine m easurement (mass/volume)Ordered By: [facility] on 08-27-2024 Creatinine [Mass/Vol] 3.47 mg/dL High 0.55-1.02 [facility] Comment on above: The validity of the calculated GFR & GFRAA in patients over 70 years has not been determined. Clinical correlation is essential. Order Comment: 517.1 Result Comment: The validity of the calculated GFR GFRAA in patients over70 years has not been determined. Clinical correlation isessential. Performed By: #### L 500.2500, L100.0500 ####[facility] [address] [place], [address] Serum or plasma urea nitroge n measurement (mass/volume)Ordered By: [facility] on 08-27-2024 Urea nitrogen [Mass/Vol] 62 mg/dL High 7-18 [facility] Comment on above: Order Comment: 517.1 Performed By: #### L 500.2500, L100.0500 ####[facility] [address] [place], [address] Sodium levelOrdered By: [facility] on 08-27-2024 Sodium [Moles/Vol] 139 mmol/L Normal 136-145 [facility] Comment on above: Order Comment: 517.1 Performed By: #### L 500.2500, L100.0500 ####[facility] [address] [place], [address] Urine creatinine measurement (mass/volume)Ordered By: [facility] on 08-27-2024 Creatinine (U) [Mass/Vol] 40.70 mg/dL NO RANGE EST. [facility] White blood cell (WBC) count Ordered By: [facility] on 08-27-2024 WBC (Bld) [#/Vol] 11.3 10*3/uL High 4.4-11.0 [facility] Comment on above: Order Comment: 517.1 Performed By: #### L 500.2500, L100.0500 ####[facility] [address] [place], [address] Miscellaneous Lab Procedureo n 08-06-2024 MISC LAB TEST Normal [facility] Comment on above: Order Comment: [id number]/ CYSTATIN C/ SERUM/ [id number]/ CYSTATIN C/ SERUM/ RT Result Comment: TEST RESULTS LIMITSCystatin C 3.85 High mg/L 0.78-1.15 ___ [facility] AT [facility]. ORIGINAL REPORT ON FILE IN LAB CONTAINS ADDITIONAL TEST SITE INFORMATION. Performed By: #### L 801.1541 ####[facility] [address] [place], [address] 12 Lead EKGon 07-24-2024 12 Lead EKG Normal [facility] Basic Metabolic Profile (BMP )on 07-24-2024 BUN/CRE 19.3 RATIO Normal 10-20 [facility] Comment on above: Order Comment: 1Y Performed By: #### L 500.2500, L501.5425, L100.0100 ####[facility] [address] [place], [address] CA,Total 9.3 mg/dL Normal 8.5-10.1 [facility] Comment on above: Order Comment: 1Y Performed By: #### L 500.2500, L501.5425, L100.0100 ####[facility] [address] [place], [address] Chloride [Moles/Vol] 110 mmol/L High 98-107 [facility] Comment on above: Order Comment: 1Y Performed By: #### L 500.2500, L501.5425, L100.0100 ####[facility] [address] [place], [address] CO2 [Moles/Vol] 21.0 mmol/L Normal 21.0-32.0 [facility] Comment on above: Order Comment: 1Y Performed By: #### L 500.2500, L501.5425, L100.0100 ####[facility] [address] [place], [address] Creatinine [Mass/Vol] 3.58 mg/dL High 0.55-1.02 [facility] Comment on above: Order Comment: 1Y Result Comment: The validity of the calculated GFR GFRAA in patients over70 years has not been determined. Clinical correlation isessential. Performed By: #### L 500.2500, L501.5425, L100.0100 ####[facility] [address] [place], [address] ECRCL 13.16 ml/min Normal [facility] Comment on above: Order Comment: 1Y Performed By: #### L 500.2500, L501.5425, L100.0100 ####[facility] [address] [place], [address] EST GFR - AA 16 mL/min Low >60 [facility] Comment on above: Order Comment: 1Y Result Comment: Afri can Ukrainian GFR Calc Performed By: #### L 500.2500, L501.5425, L100.0100 ####[facility] [address] [place], [address] GAP 9 Normal 5-15 [facility] Comment on above: Order Comment: 1Y Performed By: #### L 500.2500, L501.5425, L100.0100 ####[facility] [address] [place], [address] GFR/1.73 sq M.predicted among non-blacks MDRD (S/P/Bld) [Vol rate/Area] 13 mL/min/{1.73_m2} Low >60 [facility] Comment on above: Order Comment: 1Y Result Comment: Non- GFR Calc Performed By: #### L 500.2500, L501.5425, L100.0100 ####[facility] [address] [place], [address] Glucose [Mass/Vol] 103 mg/dL Normal 74-106 [facility] Comment on above: Order Comment: 1Y Result Comment: Fast ing Glucose result from 100 to 125 mg/dLsuggests IMPAIRED HOMEOSTASIS per A.D.A. criteria. Performed By: #### L 500.2500, L501.5425, L100.0100 ####[facility] [address] [place], [address] Potassium [Moles/Vol] 3.6 mmol/L Normal 3.5-5.1 [facility] Comment on above: Order Comment: 1Y Performed By: #### L 500.2500, L501.5425, L100.0100 ####[facility] [address] [place], [address] Sodium [Moles/Vol] 140 mmol/L Normal 136-145 [facility] Comment on above: Order Comment: 1Y Performed By: #### L 500.2500, L501.5425, L100.0100 ####[facility] [address] [place], [address] Urea nitrogen [Mass/Vol] 69 mg/dL High 7-18 [facility] Comment on above: Order Comment: 1Y Performed By: #### L 500.2500, L501.5425, L100.0100 ####[facility] [address] [place], [address] CBC W/Diff, Automatedon 11- Absolute Lymph 2.05 X10 3/uL Normal 0.83-4.51 [facility] Comment on above: Performed By: #### L 500.2500, L501.5425, L100.0100 ####[facility] [address] [place], [address] Absolute Neut 9.9 X10 3/uL High 2.0-7.7 [facility] Comment on above: Performed By: #### L 500.2500, L501.5425, L100.0100 ####[facility] [address] [place], [address] Basophils/100 WBC (Bld) 0.4 % Normal 0-1 [facility] Comment on above: Performed By: #### L 500.2500, L501.5425, L100.0100 ####[facility] [address] [place], [address] Eosinophils/100 WBC (Bld) 1.4 % Normal 0-5 [facility] Comment on above: Performed By: #### L 500.2500, L501.5425, L100.0100 ####[facility] [address] [place], [address] Erythrocyte distribution width (RBC) [Ratio] 14.1 % Normal 11.6-14.6 [facility] Comment on above: Performed By: #### L 500.2500, L501.5425, L100.0100 ####[facility] [address] [place], [address] Hematocrit (Bld) [Volume fraction] 32.3 % Low 37-47 [facility] Comment on above: Performed By: #### L 500.2500, L501.5425, L100.0100 ####[facility] [address] [place], [address] Hemoglobin (Bld) [Mass/Vol] 9.7 g/dL Low 12.0-15.0 [facility] Comment on above: Performed By: #### L 500.2500, L501.5425, L100.0100 ####[facility] [address] [place], [address] IG% 0.800 Normal 0.0-0.9 [facility] Comment on above: Result Comment: IG% - Immature Granulocytes (promyelocytes, myelocytes andmetamyelocytes) > 1% indicates that a LEFT SHIFT is Present. Performed By: #### L 500.2500, L501.5425, L100.0100 ####[facility] [address] [place], [address] Lymphocytes/100 WBC (Bld) 15.4 % Low 19-41 [facility] Comment on above: Performed By: #### L 500.2500, L501.5425, L100.0100 ####[facility] [address] [place], [address] MCH (RBC) [Entitic mass] 29.3 pg Normal 27.0-32.0 [facility] Comment on above: Performed By: #### L 500.2500, L501.5425, L100.0100 ####[facility] [address] [place], [address] MCHC (RBC) [Mass/Vol] 30.0 g/dL Low 32-36 [facility] Comment on above: Performed By: #### L 500.2500, L501.5425, L100.0100 ####[facility] [address] [place], [address] MCV (RBC) [Entitic vol] 97.6 fL Normal 81-99 [facility] Comment on above: Performed By: #### L 500.2500, L501.5425, L100.0100 ####[facility] [address] [place], [address] Monocytes/100 WBC (Bld) 7.7 % Normal 0-10 [facility] Comment on above: Performed By: #### L 500.2500, L501.5425, L100.0100 ####[facility] [address] [place], [address] Neutrophils/100 WBC (Bld) 74.3 % High 47-70 [facility] Comment on above: Performed By: #### L 500.2500, L501.5425, L100.0100 ####[facility] [address] [place], [address] Nucleated RBC (Bld) [#/Vol] 0 10*3/uL Normal 0-5 [facility] Comment on above: Performed By: #### L 500.2500, L501.5425, L100.0100 ####[facility] [address] [place], [address] Platelet mean volume (Bld) [Entitic vol] 11.1 fL Normal 6.2-12.0 [facility] Comment on above: Performed By: #### L 500.2500, L501.5425, L100.0100 ####[facility] [address] [place], [address] Platelets (Bld) [#/Vol] 250 10*3/uL Normal 150-450 [facility] Comment on above: Performed By: #### L 500.2500, L501.5425, L100.0100 ####[facility] [address] [place], [address] RBC (Bld) [#/Vol] 3.31 10*6/uL Low 4.2-5.4 [facility] Comment on above: Performed By: #### L 500.2500, L501.5425, L100.0100 ####[facility] [address] [place], [address] RDW SD 50.5 fl High 35.1-43.9 [facility] Comment on above: Performed By: #### L 500.2500, L501.5425, L100.0100 ####[facility] [address] [place], [address] WBC (Bld) [#/Vol] 13.3 10*3/uL High 4.4-11.0 [facility] Comment on above: Performed By: #### L 500.2500, L501.5425, L100.0100 ####[facility] [address] [place], [address] Chest PA and Lateralon 07-24 Chest PA and Lateral Normal [facility] Emergency Department Summary on 07-24-2024 Emergency Department Summary Normal [facility] L501.4020on 07-24-2024 TROPONIN-I HS 17 pg/mL Normal 3.0-54.0 [facility] Comment on above: Result Comment: Plea se Note: New Test Units and Gender Specific Reference Ranges. For more information see Policy Stat Procedure [place] High Sensitivity Troponin (TNIH) and attachments. Performed By: #### L 501.4020 ####[facility] [address] [place], [address] L501.5425on 07-24-2024 TROPONIN-I HS 15 pg/mL Normal 3.0-54.0 [facility] Comment on above: Order Comment: 1Y Result Comment: Plea se Note: New Test Units and Gender Specific Reference Ranges. For more information see Policy Stat Procedure [place] High Sensitivity Troponin (TNIH) and attachments. Performed By: #### L 500.2500, L501.5425, L100.0100 ####[facility] [address] [place], [address] Basic Metabolic Profile (BMP )on 07-23-2024 BUN Normal 7-18 [facility] Comment on above: Result Comment: Canc elled via OM: Order cancelled - Patient discharged Performed By: #### L 500.2500, L100.0100 ####[facility] [address] [place], [address] BUN/CRE Normal 10-20 [facility] Comment on above: Result Comment: Canc elled via OM: Order cancelled - Patient discharged Performed By: #### L 500.2500, L100.0100 ####[facility] [address] [place], [address] CA,Total Normal 8.5-10.1 [facility] Comment on above: Result Comment: Canc elled via OM: Order cancelled - Patient discharged Performed By: #### L 500.2500, L100.0100 ####[facility] [address] [place], [address] CL Normal 98-107 [facility] Comment on above: Result Comment: Canc elled via OM: Order cancelled - Patient discharged Performed By: #### L 500.2500, L100.0100 ####[facility] [address] [place], [address] CO2 Normal 21.0-32.0 [facility] Comment on above: Result Comment: Canc elled via OM: Order cancelled - Patient discharged Performed By: #### L 500.2500, L100.0100 ####[facility] [address] [place], [address] CREAT,SERUM Normal 0.55-1.02 [facility] Comment on above: Result Comment: Canc elled via OM: Order cancelled - Patient discharged Performed By: #### L 500.2500, L100.0100 ####[facility] [address] [place], [address] EST GFR Normal >60 [facility] Comment on above: Result Comment: Canc elled via OM: Order cancelled - Patient discharged Performed By: #### L 500.2500, L100.0100 ####[facility] [address] [place], [address] EST GFR - AA Normal >60 [facility] Comment on above: Result Comment: Canc elled via OM: Order cancelled - Patient discharged Performed By: #### L 500.2500, L100.0100 ####[facility] [address] [place], [address] GAP Normal 5-15 [facility] Comment on above: Result Comment: Canc elled via OM: Order cancelled - Patient discharged Performed By: #### L 500.2500, L100.0100 ####[facility] [address] [place], [address] GLU Normal 74-106 [facility] Comment on above: Result Comment: Canc elled via OM: Order cancelled - Patient discharged Performed By: #### L 500.2500, L100.0100 ####[facility] [address] [place], [address] Potassium Normal 3.5-5.1 [facility] Comment on above: Result Comment: Canc elled via OM: Order cancelled - Patient discharged Performed By: #### L 500.2500, L100.0100 ####[facility] [address] [place], [address] Basic Metabolic Profile (BMP) Normal 136-145 [facility] Comment on above: Result Comment: Canc elled via OM: Order cancelled - Patient discharged Performed By: #### L 500.2500, L100.0100 ####[facility] [address] [place], [address] CBC W/Diff, Automatedon 11-2 Absolute Neut Normal 2.0-7.7 [facility] Comment on above: Result Comment: Canc elled via OM: Order cancelled - Patient discharged Performed By: #### L 500.2500, L100.0100 ####[facility] [address] [place], [address] HCT Normal 37-47 [facility] Comment on above: Result Comment: Canc elled via OM: Order cancelled - Patient discharged Performed By: #### L 500.2500, L100.0100 ####[facility] [address] [place], [address] HGB Normal 12.0-15.0 [facility] Comment on above: Result Comment: Canc elled via OM: Order cancelled - Patient discharged Performed By: #### L 500.2500, L100.0100 ####[facility] [address] [place], [address] MCH Normal 27.0-32.0 [facility] Comment on above: Result Comment: Canc elled via OM: Order cancelled - Patient discharged Performed By: #### L 500.2500, L100.0100 ####[facility] [address] [place], [address] MCHC Normal 32-36 [facility] Comment on above: Result Comment: Canc elled via OM: Order cancelled - Patient discharged Performed By: #### L 500.2500, L100.0100 ####[facility] [address] [place], [address] MCV Normal 81-99 [facility] Comment on above: Result Comment: Canc elled via OM: Order cancelled - Patient discharged Performed By: #### L 500.2500, L100.0100 ####[facility] [address] [place], [address] NEUT% Normal 47-70 [facility] Comment on above: Result Comment: Canc elled via OM: Order cancelled - Patient discharged Performed By: #### L 500.2500, L100.0100 ####[facility] [address] [place], [address] PLT Normal 150-450 [facility] [facility] Comment on above: Result Comment: Canc elled via OM: Order cancelled - Patient discharged Performed By: #### L 500.2500, L100.0100 ####[facility] [address] [place], [address] RBC Normal 4.2-5.4 [facility] Comment on above: Result Comment: Canc elled via OM: Order cancelled - Patient discharged Performed By: #### L 500.2500, L100.0100 ####[facility] [address] [place], [address] RDW CV Normal 11.6-14.6 [facility] Comment on above: Result Comment: Canc elled via OM: Order cancelled - Patient discharged Performed By: #### L 500.2500, L100.0100 ####[facility] [address] [place], [address] RDW SD Normal 35.1-43.9 [facility] Comment on above: Result Comment: Canc elled via OM: Order cancelled - Patient discharged Performed By: #### L 500.2500, L100.0100 ####[facility] [address] [place], [address] WBC Normal 4.4-11.0 [facility] Comment on above: Result Comment: Canc elled via OM: Order cancelled - Patient discharged Performed By: #### L 500.2500, L100.0100 ####[facility] [address] [place], [address] CBC W/Diff, Automatedon 11-2 0-2023 Absolute Lymph 1.91 X10 3/uL Normal 0.83-4.51 [facility] Comment on above: Performed By: #### L 100.0100 ####[facility] [address] [place], [address] Absolute Neut 6.9 X10 3/uL Normal 2.0-7.7 [facility] Comment on above: Performed By: #### L 100.0100 ####[facility] [address] [place], [address] Basophils/100 WBC (Bld) 0.7 % Normal 0-1 [facility] Comment on above: Performed By: #### L 100.0100 ####[facility] [address] [place], [address] Eosinophils/100 WBC (Bld) 3.9 % Normal 0-5 [facility] Comment on above: Performed By: #### L 100.0100 ####[facility] [address] [place], [address] Erythrocyte distribution width (RBC) [Ratio] 14.4 % Normal 11.6-14.6 [facility] Comment on above: Performed By: #### L 100.0100 ####[facility] [address] [place], [address] Hematocrit (Bld) [Volume fraction] 30.3 % Low 37-47 [facility] Comment on above: Performed By: #### L 100.0100 ####[facility] [address] [place], [address] Hemoglobin (Bld) [Mass/Vol] 9.3 g/dL Low 12.0-15.0 [facility] Comment on above: Performed By: #### L 100.0100 ####[facility] [address] [place], [address] IG% 0.700 Normal 0.0-0.9 [facility] Comment on above: Result Comment: IG% - Immature Granulocytes (promyelocytes, myelocytes andmetamyelocytes) > 1% indicates that a LEFT SHIFT is Present. Performed By: #### L 100.0100 ####[facility] [address] [place], [address] Lymphocytes/100 WBC (Bld) 18.8 % Low 19-41 [facility] Comment on above: Performed By: #### L 100.0100 ####[facility] [address] [place], [address] MCH (RBC) [Entitic mass] 29.4 pg Normal 27.0-32.0 [facility] Comment on above: Performed By: #### L 100.0100 ####[facility] [address] [place], [address] MCHC (RBC) [Mass/Vol] 30.7 g/dL Low 32-36 [facility] Comment on above: Performed By: #### L 100.0100 ####[facility] [address] [place], [address] MCV (RBC) [Entitic vol] 95.9 fL Normal 81-99 [facility] Comment on above: Performed By: #### L 100.0100 ####[facility] [address] [place], [address] Monocytes/100 WBC (Bld) 7.9 % Normal 0-10 [facility] Comment on above: Performed By: #### L 100.0100 ####[facility] [address] [place], [address] Neutrophils/100 WBC (Bld) 68.0 % Normal 47-70 [facility] Comment on above: Performed By: #### L 100.0100 ####[facility] [address] [place], [address] Nucleated RBC (Bld) [#/Vol] 0 10*3/uL Normal 0-5 [facility] Comment on above: Performed By: #### L 100.0100 ####[facility] [address] [place], [address] Platelet mean volume (Bld) [Entitic vol] 10.7 fL Normal 6.2-12.0 [facility] Comment on above: Performed By: #### L 100.0100 ####[facility] [address] [place], [address] Platelets (Bld) [#/Vol] 260 10*3/uL Normal 150-450 [facility] Comment on above: Performed By: #### L 100.0100 ####[facility] [address] [place], [address] RBC (Bld) [#/Vol] 3.16 10*6/uL Low 4.2-5.4 [facility] Comment on above: Performed By: #### L 100.0100 ####[facility] [address] [place], [address] RDW SD 50.7 fl High 35.1-43.9 [facility] Comment on above: Performed By: #### L 100.0100 ####[facility] [address] [place], [address] WBC (Bld) [#/Vol] 10.2 10*3/uL Normal 4.4-11.0 [facility] Comment on above: Performed By: #### L 100.0100 ####[facility] [address] [place], [address] Cerebral Spinal Fluid Cultur mojgan 07-22-2024 CSFC No growth in 72 hours. Normal [facility] Comment on above: Performed By: #### M 100.2000, L350.1000, M100.2300, L501.1600, L200.0100, L501.0400 ####[facility] [address] [place], [address] Renal Profileon 07-22-2024 Albumin [Mass/Vol] 2.9 g/dL Low 3.2-5.0 [facility] Comment on above: Performed By: #### L 500.3600 ####[facility] [address] [place], [address] BUN/CRE 22.4 RATIO High 10-20 [facility] Comment on above: Performed By: #### L 500.3600 ####[facility] [address] [place], [address] CA,Total 8.6 mg/dL Normal 8.5-10.1 [facility] Comment on above: Performed By: #### L 500.3600 ####[facility] [address] [place], [address] Chloride [Moles/Vol] 114 mmol/L High 98-107 [facility] Comment on above: Performed By: #### L 500.3600 ####[facility] [address] [place], [address] CO2 [Moles/Vol] 19.0 mmol/L Low 21.0-32.0 [facility] Comment on above: Performed By: #### L 500.3600 ####[facility] [address] [place], [address] Creatinine [Mass/Vol] 3.84 mg/dL High 0.55-1.02 [facility] Comment on above: Result Comment: The validity of the calculated GFR GFRAA in patients over70 years has not been determined. Clinical correlation isessential. Performed By: #### L 500.3600 ####[facility] [address] [place], [address] ECRCL 12.18 ml/min Normal [facility] Comment on above: Performed By: #### L 500.3600 ####[facility] [address] [place], [address] EST GFR - AA 15 mL/min Low >60 [facility] Comment on above: Result Comment: Afri can Ukrainian GFR Calc Performed By: #### L 500.3600 ####[facility] [address] [place], [address] GFR/1.73 sq M.predicted among non-blacks MDRD (S/P/Bld) [Vol rate/Area] 12 mL/min/{1.73_m2} Low >60 [facility] Comment on above: Result Comment: Non- GFR Calc Performed By: #### L 500.3600 ####[facility] [address] [place], [address] Glucose [Mass/Vol] 100 mg/dL Normal 74-106 [facility] Comment on above: Result Comment: Fast ing Glucose result from 100 to 125 mg/dLsuggests IMPAIRED HOMEOSTASIS per A.D.A. criteria. Performed By: #### L 500.3600 ####[facility] [address] [place], [address] Phosphate [Mass/Vol] 6.2 mg/dL High 2.5-4.9 [facility] Comment on above: Performed By: #### L 500.3600 ####[facility] [address] [place], [address] Potassium [Moles/Vol] 3.9 mmol/L Normal 3.5-5.1 [facility] Comment on above: Performed By: #### L 500.3600 ####[facility] [address] [place], [address] Sodium [Moles/Vol] 142 mmol/L Normal 136-145 [facility] Comment on above: Performed By: #### L 500.3600 ####[facility] [address] [place], [address] Urea nitrogen [Mass/Vol] 86 mg/dL High 7-18 [facility] Comment on above: Performed By: #### L 500.3600 ####[facility] [address] [place], [address] Spinal Fluid Cell Count+Diff on 07-22-2024 PATH REV May follow Normal [facility] Comment on above: Order Comment: Speci men Source? spinal fluid Result Comment: NO E VIDENCE OF MALIGNANCY.KATHLEEN KRAFT MD 07/22/2024 AMENDED REPORT 07/22/24 0830 PATH REV previously reported as: May follow Performed By: #### M 100.2000, L350.1000, M100.2300, L501.1600, L200.0100, L501.0400 ####[facility] [address] [place], [address] Consultation - Nephrologyon 07-21-2024 Consultation - Nephrology Normal [facility] Renal Profileon 07-21-2024 Albumin [Mass/Vol] 3.1 g/dL Low 3.2-5.0 [facility] Comment on above: Performed By: #### L 500.3600 ####[facility] [address] [place], [address] BUN/CRE 21.4 RATIO High 10-20 [facility] Comment on above: Performed By: #### L 500.3600 ####[facility] [address] [place], [address] CA,Total 8.7 mg/dL Normal 8.5-10.1 [facility] Comment on above: Performed By: #### L 500.3600 ####[facility] [address] [place], [address] Chloride [Moles/Vol] 110 mmol/L High 98-107 [facility] Comment on above: Performed By: #### L 500.3600 ####[facility] [address] [place], [address] CO2 [Moles/Vol] 17.0 mmol/L Low 21.0-32.0 [facility] Comment on above: Performed By: #### L 500.3600 ####[facility] [address] [place], [address] Creatinine [Mass/Vol] 4.21 mg/dL High 0.55-1.02 [facility] Comment on above: Result Comment: The validity of the calculated GFR GFRAA in patients over70 years has not been determined. Clinical correlation isessential. Performed By: #### L 500.3600 ####[facility] [address] [place], [address] ECRCL 11.11 ml/min Normal [facility] Comment on above: Performed By: #### L 500.3600 ####[facility] [address] [place], [address] EST GFR - AA 13 mL/min Low >60 [facility] Comment on above: Result Comment: Afri can Ukrainian GFR Calc Performed By: #### L 500.3600 ####[facility] [address] [place], [address] GFR/1.73 sq M.predicted among non-blacks MDRD (S/P/Bld) [Vol rate/Area] 11 mL/min/{1.73_m2} Low >60 [facility] Comment on above: Result Comment: Non- GFR Calc Performed By: #### L 500.3600 ####[facility] [address] [place], [address] Glucose [Mass/Vol] 191 mg/dL High 74-106 [facility] Comment on above: Result Comment: Fast ing Glucose result greater than or equal to 126 mg/dLsuggests DIABETES MELLITUS per A.D.A. criteria. Performed By: #### L 500.3600 ####[facility] [address] [place], [address] Phosphate [Mass/Vol] 5.7 mg/dL High 2.5-4.9 [facility] Comment on above: Performed By: #### L 500.3600 ####[facility] [address] [place], [address] Potassium [Moles/Vol] 3.8 mmol/L Normal 3.5-5.1 [facility] Comment on above: Performed By: #### L 500.3600 ####[facility] [address] [place], [address] Sodium [Moles/Vol] 138 mmol/L Normal 136-145 [facility] Comment on above: Performed By: #### L 500.3600 ####[facility] [address] [place], [address] Urea nitrogen [Mass/Vol] 90 mg/dL High -18 [facility] Comment on above: Performed By: #### L 500.3600 ####[facility] [address] [place], [address] Comprehensive Metabolic [facility] ilon 07-20-2024 Albumin [Mass/Vol] 2.9 g/dL Low 3.2-5.0 [facility] Comment on above: Performed By: #### L 500.4050 ####[facility] [address] [place], [address] Albumin/Globulin [Mass ratio] 1.0 {ratio} Normal 0.9-2.4 [facility] Comment on above: Performed By: #### L 500.4050 ####[facility] [address] [place], [address] ALK P 83 U/L Normal 45-117 [facility] Comment on above: Performed By: #### L 500.4050 ####[facility] [address] [place], [address] ALT [Catalytic activity/Vol] 15 U/L Normal 13-56 [facility] Comment on above: Performed By: #### L 500.4050 ####[facility] [address] [place], [address] AST [Catalytic activity/Vol] 7 U/L Low 15-37 [facility] Comment on above: Performed By: #### L 500.4050 ####[facility] [address] [place], [address] Bilirubin [Mass/Vol] 0.30 mg/dL Normal 0.20-1.00 [facility] Comment on above: Result Comment: For patients on eltrombopag therapy, use of Dimension [place] TBIL is not recommended. Performed By: #### L 500.4050 ####[facility] [address] [place], [address] BUN/CRE 19.2 RATIO Normal 10-20 [facility] Comment on above: Performed By: #### L 500.4050 ####[facility] [address] [place], [address] CA,Total 8.9 mg/dL Normal 8.5-10.1 [facility] Comment on above: Performed By: #### L 500.4050 ####[facility] [address] [place], [address] Chloride [Moles/Vol] 110 mmol/L High 98-107 [facility] Comment on above: Performed By: #### L 500.4050 ####[facility] [address] [place], [address] CO2 [Moles/Vol] 20.0 mmol/L Low 21.0-32.0 [facility] Comment on above: Performed By: #### L 500.4050 ####[facility] [address] [place], [address] Creatinine [Mass/Vol] 4.47 mg/dL High 0.55-1.02 [facility] Comment on above: Result Comment: The validity of the calculated GFR GFRAA in patients over70 years has not been determined. Clinical correlation isessential. Performed By: #### L 500.4050 ####[facility] [address] [place], [address] ECRCL 10.32 ml/min Normal [facility] Comment on above: Performed By: #### L 500.4050 ####[facility] [address] [place], [address] EST GFR - AA 13 mL/min Low >60 [facility] Comment on above: Result Comment: Afri can Ukrainian GFR Calc Performed By: #### L 500.4050 ####[facility] [address] [place], [address] GAP 8 Normal 5-15 [facility] Comment on above: Performed By: #### L 500.4050 ####[facility] [address] [place], [address] GFR/1.73 sq M.predicted among non-blacks MDRD (S/P/Bld) [Vol rate/Area] 10 mL/min/{1.73_m2} Low >60 [facility] Comment on above: Result Comment: Non- GFR Calc Performed By: #### L 500.4050 ####[facility] [address] [place], [address] Globulin (S) [Mass/Vol] 3.0 g/dL Normal 2.2-4.2 [facility] Comment on above: Performed By: #### L 500.4050 ####[facility] [address] [place], [address] Glucose [Mass/Vol] 110 mg/dL High 74-106 [facility] Comment on above: Result Comment: Fast ing Glucose result from 100 to 125 mg/dLsuggests IMPAIRED HOMEOSTASIS per A.D.A. criteria. Performed By: #### L 500.4050 ####[facility] [address] [place], [address] Potassium [Moles/Vol] 4.0 mmol/L Normal 3.5-5.1 [facility] Comment on above: Performed By: #### L 500.4050 ####[facility] [address] [place], [address] Sodium [Moles/Vol] 139 mmol/L Normal 136-145 [facility] Comment on above: Performed By: #### L 500.4050 ####[facility] [address] [place], [address] T PROT 5.9 g/dL Low 6.4-8.2 [facility] Comment on above: Performed By: #### L 500.4050 ####[facility] [address] [place], [address] Urea nitrogen [Mass/Vol] 86 mg/dL High 7-18 [facility] Comment on above: Performed By: #### L 500.4050 ####[facility] [address] [place], [address] Cytology, Body Fluid / CSFon 07-20-2024 CYTOLOGY,BF/CSF SEE PATHOLOGY REPORT Normal [facility] Comment on above: Result Comment: Spec imen submitted to Anatomical Pathology Department fortesting. Performed By: #### M 100.2000, L350.1000, M100.2300, L501.1600, L200.0100, L501.0400 ####[facility] [address] [place], [address] Dx Lumbar Puncture w/IMG Kit maurizio 07-20-2024 Dx Lumbar Puncture w/IMG Guide Normal [facility] Glucose Spinal Fluidon 07-20 GLU SPINAL FLD 65 mg/dL Normal 40-75 [facility] Comment on above: Performed By: #### M 100.2000, L350.1000, M100.2300, L501.1600, L200.0100, L501.0400 ####[facility] [address] [place], [address] Gram Stainon 07-20-2024 GS Gram Stain No organisms seen 1+ Red Blood Cells 1+ White Blood Cells Normal [facility] Comment on above: Performed By: #### M 100.2000, L350.1000, M100.2300, L501.1600, L200.0100, L501.0400 ####[facility] [address] [place], [address] Protein Spinal Fluidon 07-20 PROTEIN CSF 42.0 mg/dL Normal 15.0-45.0 [facility] Comment on above: Performed By: #### M 100.1999, L350.1000, M100.2300, L501.1600, L200.0100, L501.0400 ####[facility] [address] [place], [address] Special Stain Group IIon Special Stain Group II Normal [facility] Comment on above: Performed By: #### P SSII ####[facility] [address] [place], [address] CBC W/Diff, Automatedon 07-03 Absolute Lymph 2.78 X10 3/uL Normal 0.83-4.51 [facility] Comment on above: Performed By: #### L 500.4050, L100.0100 ####[facility] [address] [place], [address] Absolute Neut 8.7 X10 3/uL High 2.0-7.7 [facility] Comment on above: Performed By: #### L 500.4050, L100.0100 ####[facility] [address] [place], [address] Basophils/100 WBC (Bld) 0.8 % Normal 0-1 [facility] Comment on above: Performed By: #### L 500.4050, L100.0100 ####[facility] [address] [place], [address] Eosinophils/100 WBC (Bld) 2.8 % Normal 0-5 [facility] Comment on above: Performed By: #### L 500.4050, L100.0100 ####[facility] [address] [place], [address] Erythrocyte distribution width (RBC) [Ratio] 14.4 % Normal 11.6-14.6 [facility] Comment on above: Performed By: #### L 500.4050, L100.0100 ####[facility] [address] [place], [address] Hematocrit (Bld) [Volume fraction] 31.9 % Low 37-47 [facility] Comment on above: Performed By: #### L 500.4050, L100.0100 ####[facility] [address] [place], [address] Hemoglobin (Bld) [Mass/Vol] 10.1 g/dL Low 12.0-15.0 [facility] Comment on above: Performed By: #### L 500.4050, L100.0100 ####[facility] [address] [place], [address] IG% 0.800 Normal 0.0-0.9 [facility] Comment on above: Result Comment: IG% - Immature Granulocytes (promyelocytes, myelocytes andmetamyelocytes) > 1% indicates that a LEFT SHIFT is Present. Performed By: #### L 500.4050, L100.0100 ####[facility] [address] [place], [address] Lymphocytes/100 WBC (Bld) 21.3 % Normal 19-41 [facility] Comment on above: Performed By: #### L 500.4050, L100.0100 ####[facility] [address] [place], [address] MCH (RBC) [Entitic mass] 30.1 pg Normal 27.0-32.0 [facility] Comment on above: Performed By: #### L 500.4050, L100.0100 ####[facility] [address] [place], [address] MCHC (RBC) [Mass/Vol] 31.7 g/dL Low 32-36 [facility] Comment on above: Performed By: #### L 500.4050, L100.0100 ####[facility] [address] [place], [address] MCV (RBC) [Entitic vol] 94.9 fL Normal 81-99 [facility] Comment on above: Performed By: #### L 500.4050, L100.0100 ####[facility] [address] [place], [address] Monocytes/100 WBC (Bld) 8.1 % Normal 0-10 [facility] Comment on above: Performed By: #### L 500.4050, L100.0100 ####[facility] [address] [place], [address] Neutrophils/100 WBC (Bld) 66.2 % Normal 47-70 [facility] Comment on above: Performed By: #### L 500.4050, L100.0100 ####[facility] [address] [place], [address] Nucleated RBC (Bld) [#/Vol] 0 10*3/uL Normal 0-5 [facility] Comment on above: Performed By: #### L 500.4050, L100.0100 ####[facility] [address] [place], [address] Platelet mean volume (Bld) [Entitic vol] 10.2 fL Normal 6.2-12.0 [facility] Comment on above: Performed By: #### L 500.4050, L100.0100 ####[facility] [address] [place], [address] Platelets (Bld) [#/Vol] 344 10*3/uL Normal 150-450 [facility] Comment on above: Performed By: #### L 500.4050, L100.0100 ####[facility] [address] [place], [address] RBC (Bld) [#/Vol] 3.36 10*6/uL Low 4.2-5.4 [facility] Comment on above: Performed By: #### L 500.4050, L100.0100 ####[facility] [address] [place], [address] RDW SD 50.1 fl High 35.1-43.9 [facility] Comment on above: Performed By: #### L 500.4050, L100.0100 ####[facility] [address] [place], [address] WBC (Bld) [#/Vol] 13.1 10*3/uL High 4.4-11.0 [facility] Comment on above: Performed By: #### L 500.4050, L100.0100 ####[facility] [address] [place], [address] Comprehensive Metabolic Prof [facility] 07-19-2024 Albumin [Mass/Vol] 3.0 g/dL Low 3.2-5.0 [facility] Comment on above: Performed By: #### L 500.4050, L100.0100 ####[facility] [address] [place], [address] Albumin/Globulin [Mass ratio] 1.0 {ratio} Normal 0.9-2.4 [facility] Comment on above: Performed By: #### L 500.4050, L100.0100 ####[facility] [address] [place], [address] ALK P 87 U/L Normal 45-117 [facility] Comment on above: Performed By: #### L 500.4050, L100.0100 ####[facility] [address] [place], [address] ALT [Catalytic activity/Vol] 18 U/L Normal 13-56 [facility] Comment on above: Performed By: #### L 500.4050, L100.0100 ####[facility] [address] [place], [address] AST [Catalytic activity/Vol] 9 U/L Low 15-37 [facility] Comment on above: Performed By: #### L 500.4050, L100.0100 ####[facility] [address] [place], [address] Bilirubin [Mass/Vol] 0.30 mg/dL Normal 0.20-1.00 [facility] Comment on above: Result Comment: For patients on eltrombopag therapy, use of Dimension [place] TBIL is not recommended. Performed By: #### L 500.4050, L100.0100 ####[facility] [address] [place], [address] BUN/CRE 17.1 RATIO Normal 10-20 [facility] Comment on above: Performed By: #### L 500.4050, L100.0100 ####[facility] [address] [place], [address] CA,Total 9.1 mg/dL Normal 8.5-10.1 [facility] Comment on above: Performed By: #### L 500.4050, L100.0100 ####[facility] [address] [place], [address] Chloride [Moles/Vol] 110 mmol/L High 98-107 [facility] Comment on above: Performed By: #### L 500.4050, L100.0100 ####[facility] [address] [place], [address] CO2 [Moles/Vol] 21.0 mmol/L Normal 21.0-32.0 [facility] Comment on above: Performed By: #### L 500.4050, L100.0100 ####[facility] [address] [place], [address] Creatinine [Mass/Vol] 4.32 mg/dL High 0.55-1.02 [facility] Comment on above: Result Comment: The validity of the calculated GFR GFRAA in patients over70 years has not been determined. Clinical correlation isessential. Performed By: #### L 500.4050, L100.0100 ####[facility] [address] [place], [address] ECRCL 10.68 ml/min Normal [facility] Comment on above: Performed By: #### L 500.4050, L100.0100 ####[facility] [address] [place], [address] EST GFR - AA 13 mL/min Low >60 [facility] Comment on above: Result Comment: Afri can Ukrainian GFR Calc Performed By: #### L 500.4050, L100.0100 ####[facility] [address] [place], [address] GAP 8 Normal 5-15 [facility] Comment on above: Performed By: #### L 500.4050, L100.0100 ####[facility] [address] [place], [address] GFR/1.73 sq M.predicted among non-blacks MDRD (S/P/Bld) [Vol rate/Area] 11 mL/min/{1.73_m2} Low >60 [facility] Comment on above: Result Comment: Non- GFR Calc Performed By: #### L 500.4050, L100.0100 ####[facility] [address] [place], [address] Globulin (S) [Mass/Vol] 2.9 g/dL Normal 2.2-4.2 [facility] Comment on above: Performed By: #### L 500.4050, L100.0100 ####[facility] [address] [place], [address] Glucose [Mass/Vol] 114 mg/dL High 74-106 [facility] Comment on above: Result Comment: Fast ing Glucose result from 100 to 125 mg/dLsuggests IMPAIRED HOMEOSTASIS per A.D.A. criteria. Performed By: #### L 500.4050, L100.0100 ####[facility] [address] [place], [address] Potassium [Moles/Vol] 3.8 mmol/L Normal 3.5-5.1 [facility] Comment on above: Performed By: #### L 500.4050, L100.0100 ####[facility] [address] [place], [address] Sodium [Moles/Vol] 139 mmol/L Normal 136-145 [facility] Comment on above: Performed By: #### L 500.4050, L100.0100 ####[facility] [address] [place], [address] T PROT 5.9 g/dL Low 6.4-8.2 [facility] Comment on above: Performed By: #### L 500.4050, L100.0100 ####[facility] [address] [place], [address] Urea nitrogen [Mass/Vol] 74 mg/dL High 7-18 [facility] Comment on above: Performed By: #### L 500.4050, L100.0100 ####[facility] [address] [place], [address] CBC W/Diff, Automatedon 11 Absolute Lymph 1.79 X10 3/uL Normal 0.83-4.51 [facility] Comment on above: Performed By: #### L 500.4100, L501.9985, L500.4050, L100.0100 ####[facility] [address] [place], [address] Absolute Neut 10.7 X10 3/uL High 2.0-7.7 [facility] Comment on above: Performed By: #### L 500.4100, L501.9985, L500.4050, L100.0100 ####[facility] [address] [place], [address] Basophils/100 WBC (Bld) 0.6 % Normal 0-1 [facility] Comment on above: Performed By: #### L 500.4100, L501.9985, L500.4050, L100.0100 ####[facility] [address] [place], [address] Eosinophils/100 WBC (Bld) 0.4 % Normal 0-5 [facility] Comment on above: Performed By: #### L 500.4100, L501.9985, L500.4050, L100.0100 ####[facility] [address] [place], [address] Erythrocyte distribution width (RBC) [Ratio] 14.4 % Normal 11.6-14.6 [facility] Comment on above: Performed By: #### L 500.4100, L501.9985, L500.4050, L100.0100 ####[facility] [address] [place], [address] Hematocrit (Bld) [Volume fraction] 37.9 % Normal 37-47 [facility] Comment on above: Performed By: #### L 500.4100, L501.9985, L500.4050, L100.0100 ####[facility] [address] [place], [address] Hemoglobin (Bld) [Mass/Vol] 11.9 g/dL Low 12.0-15.0 [facility] Comment on above: Performed By: #### L 500.4100, L501.9985, L500.4050, L100.0100 ####[facility] [address] [place], [address] IG% 0.700 Normal 0.0-0.9 [facility] Comment on above: Result Comment: IG% - Immature Granulocytes (promyelocytes, myelocytes andmetamyelocytes) > 1% indicates that a LEFT SHIFT is Present. Performed By: #### L 500.4100, L501.9985, L500.4050, L100.0100 ####[facility] [address] [place], [address] Lymphocytes/100 WBC (Bld) 12.9 % Low 19-41 [facility] Comment on above: Performed By: #### L 500.4100, L501.9985, L500.4050, L100.0100 ####[facility] [address] [place], [address] MCH (RBC) [Entitic mass] 29.8 pg Normal 27.0-32.0 [facility] Comment on above: Performed By: #### L 500.4100, L501.9985, L500.4050, L100.0100 ####[facility] [address] [place], [address] MCHC (RBC) [Mass/Vol] 31.4 g/dL Low 32-36 [facility] Comment on above: Performed By: #### L 500.4100, L501.9985, L500.4050, L100.0100 ####[facility] [address] [place], [address] MCV (RBC) [Entitic vol] 94.8 fL Normal 81-99 [facility] Comment on above: Performed By: #### L 500.4100, L501.9985, L500.4050, L100.0100 ####[facility] [address] [place], [address] Monocytes/100 WBC (Bld) 8.4 % Normal 0-10 [facility] Comment on above: Performed By: #### L 500.4100, L501.9985, L500.4050, L100.0100 ####[facility] [address] [place], [address] Neutrophils/100 WBC (Bld) 77.0 % High 47-70 [facility] Comment on above: Performed By: #### L 500.4100, L501.9985, L500.4050, L100.0100 ####[facility] [address] [place], [address] Nucleated RBC (Bld) [#/Vol] 0 10*3/uL Normal 0-5 [facility] Comment on above: Performed By: #### L 500.4100, L501.9985, L500.4050, L100.0100 ####[facility] [address] [place], [address] Platelet mean volume (Bld) [Entitic vol] 9.5 fL Normal 6.2-12.0 [facility] Comment on above: Performed By: #### L 500.4100, L501.9985, L500.4050, L100.0100 ####[facility] [address] [place], [address] Platelets (Bld) [#/Vol] 384 10*3/uL Normal 150-450 [facility] Comment on above: Performed By: #### L 500.4100, L501.9985, L500.4050, L100.0100 ####[facility] [address] [place], [address] RBC (Bld) [#/Vol] 4.00 10*6/uL Low 4.2-5.4 [facility] Comment on above: Performed By: #### L 500.4100, L501.9985, L500.4050, L100.0100 ####[facility] [address] [place], [address] RDW SD 50.0 fl High 35.1-43.9 [facility] Comment on above: Performed By: #### L 500.4100, L501.9985, L500.4050, L100.0100 ####[facility] [address] [place], [address] WBC (Bld) [#/Vol] 13.9 10*3/uL High 4.4-11.0 [facility] Comment on above: Performed By: #### L 500.4100, L501.9985, L500.4050, L100.0100 ####[facility] [address] [place], [address] Comprehensive Metabolic Prof ilon 07-17-2024 ALB Normal 3.2-5.0 [facility] Comment on above: Result Comment: MARISELA TAMEZ RN Performed By: #### L 500.4050 ####[facility] [address] [place], [address] ALK P Normal 45-117 [facility] Comment on above: Result Comment: MARISELA TAMEZ RN Performed By: #### L 500.4050 ####[facility] [address] [place], [address] ALT Normal 13-56 [facility] Comment on above: Result Comment: MARISELA TAMEZ RN Performed By: #### L 500.4050 ####[facility] [address] [place], [address] AST Normal 15-37 [facility] Comment on above: Result Comment: MARISELA TAMEZ RN Performed By: #### L 500.4050 ####[facility] [address] [place], [address] BUN Normal 7-18 [facility] Comment on above: Result Comment: MARISELA TAMEZ RN Performed By: #### L 500.4050 ####[facility] [address] [place], [address] BUN/CRE Normal 10-20 [facility] Comment on above: Result Comment: MARISELA TAMEZ RN Performed By: #### L 500.4050 ####[facility] [address] [place], [address] CA,Total Normal 8.5-10.1 [facility] Comment on above: Result Comment: MARISELA TAMEZ RN Performed By: #### L 500.4050 ####[facility] [address] [place], [address] CL Normal 98-107 [facility] Comment on above: Result Comment: MARISELA TAMEZ RN Performed By: #### L 500.4050 ####[facility] [address] [place], [address] CO2 Normal 21.0-32.0 [facility] Comment on above: Result Comment: MARISELA TAMEZ RN Performed By: #### L 500.4050 ####[facility] [address] [place], [address] CREAT,SERUM Normal 0.55-1.02 [facility] Comment on above: Result Comment: MARISELA TAMEZ RN Performed By: #### L 500.4050 ####[facility] [address] [place], [address] EST GFR Normal >60 [facility] Comment on above: Result Comment: MARISELA TAMEZ RN Performed By: #### L 500.4050 ####[facility] [address] [place], [address] EST GFR - AA Normal >60 [facility] Comment on above: Result Comment: MARISELA TAMEZ RN Performed By: #### L 500.4050 ####[facility] [address] [place], [address] GAP Normal 5-15 [facility] Comment on above: Result Comment: MARISELA TAMEZ RN Performed By: #### L 500.4050 ####[facility] [address] [place], [address] GLU Normal 74-106 [facility] Comment on above: Result Comment: MARISELA TAMEZ RN Performed By: #### L 500.4050 ####[facility] [address] [place], [address] Potassium Normal 3.5-5.1 [facility] Comment on above: Result Comment: MARISELA TAMEZ RN Performed By: #### L 500.4050 ####[facility] [address] [place], [address] T BILI Normal 0.20-1.00 [facility] Comment on above: Result Comment: MARISELA TAMEZ RN Performed By: #### L 500.4050 ####[facility] [address] [place], [address] T PROT Normal 6.4-8.2 [facility] Comment on above: Result Comment: MARISELA TAMEZ RN Performed By: #### L 500.4050 ####[facility] [address] [place], [address] Comprehensive Metabolic Profil Normal 136-145 [facility] Comment on above: Result Comment: MARISELA TAMEZ RN Performed By: #### L 500.4050 ####[facility] [address] [place], [address] Albumin [Mass/Vol] 3.9 g/dL Normal 3.2-5.0 [facility] Comment on above: Performed By: #### L 500.4100, L501.9985, L500.4050, L100.0100 ####[facility] [address] [place], [address] Albumin/Globulin [Mass ratio] 1.1 {ratio} Normal 0.9-2.4 [facility] Comment on above: Performed By: #### L 500.4100, L501.9985, L500.4050, L100.0100 ####[facility] [address] [place], [address] ALK P 123 U/L High 45-117 [facility] Comment on above: Performed By: #### L 500.4100, L501.9985, L500.4050, L100.0100 ####[facility] [address] [place], [address] ALT [Catalytic activity/Vol] 31 U/L Normal 13-56 [facility] Comment on above: Performed By: #### L 500.4100, L501.9985, L500.4050, L100.0100 ####[facility] [address] [place], [address] AST [Catalytic activity/Vol] 24 U/L Normal 15-37 [facility] Comment on above: Performed By: #### L 500.4100, L501.9985, L500.4050, L100.0100 ####[facility] [address] [place], [address] Bilirubin [Mass/Vol] 0.50 mg/dL Normal 0.20-1.00 [facility] Comment on above: Result Comment: For patients on eltrombopag therapy, use of Dimension [place] TBIL is not recommended. Performed By: #### L 500.4100, L501.9985, L500.4050, L100.0100 ####[facility] [address] [place], [address] BUN/CRE 11.4 RATIO Normal 10-20 [facility] Comment on above: Performed By: #### L 500.4100, L501.9985, L500.4050, L100.0100 ####[facility] [address] [place], [address] CA,Total 10.2 mg/dL High 8.5-10.1 [facility] Comment on above: Performed By: #### L 500.4100, L501.9985, L500.4050, L100.0100 ####[facility] [address] [place], [address] Chloride [Moles/Vol] 113 mmol/L High 98-107 [facility] Comment on above: Performed By: #### L 500.4100, L501.9985, L500.4050, L100.0100 ####[facility] [address] [place], [address] CO2 [Moles/Vol] 24.0 mmol/L Normal 21.0-32.0 [facility] Comment on above: Performed By: #### L 500.4100, L501.9985, L500.4050, L100.0100 ####[facility] [address] [place], [address] Creatinine [Mass/Vol] 3.08 mg/dL High 0.55-1.02 [facility] Comment on above: Result Comment: The validity of the calculated GFR GFRAA in patients over70 years has not been determined. Clinical correlation isessential. Performed By: #### L 500.4100, L501.9985, L500.4050, L100.0100 ####[facility] [address] [place], [address] ECRCL 14.87 ml/min Normal [facility] Comment on above: Performed By: #### L 500.4100, L501.9985, L500.4050, L100.0100 ####[facility] [address] [place], [address] EST GFR - AA 19 mL/min Low >60 [facility] Comment on above: Result Comment: Afri can Ukrainian GFR Calc Performed By: #### L 500.4100, L501.9985, L500.4050, L100.0100 ####[facility] [address] [place], [address] GAP 8 Normal 5-15 [facility] Comment on above: Performed By: #### L 500.4100, L501.9985, L500.4050, L100.0100 ####[facility] [address] [place], [address] GFR/1.73 sq M.predicted among non-blacks MDRD (S/P/Bld) [Vol rate/Area] 16 mL/min/{1.73_m2} Low >60 [facility] Comment on above: Result Comment: Non- GFR Calc Performed By: #### L 500.4100, L501.9985, L500.4050, L100.0100 ####[facility] [address] [place], [address] Globulin (S) [Mass/Vol] 3.7 g/dL Normal 2.2-4.2 [facility] Comment on above: Performed By: #### L 500.4100, L501.9985, L500.4050, L100.0100 ####[facility] [address] [place], [address] Glucose [Mass/Vol] 119 mg/dL High 74-106 [facility] Comment on above: Result Comment: Fast ing Glucose result from 100 to 125 mg/dLsuggests IMPAIRED HOMEOSTASIS per A.D.A. criteria. Performed By: #### L 500.4100, L501.9985, L500.4050, L100.0100 ####[facility] [address] [place], [address] Potassium [Moles/Vol] 3.6 mmol/L Normal 3.5-5.1 [facility] Comment on above: Performed By: #### L 500.4100, L501.9985, L500.4050, L100.0100 ####[facility] [address] [place], [address] Sodium [Moles/Vol] 145 mmol/L Normal 136-145 [facility] Comment on above: Performed By: #### L 500.4100, L501.9985, L500.4050, L100.0100 ####[facility] [address] [place], [address] T PROT 7.6 g/dL Normal 6.4-8.2 [facility] Comment on above: Performed By: #### L 500.4100, L501.9985, L500.4050, L100.0100 ####[facility] [address] [place], [address] Urea nitrogen [Mass/Vol] 35 mg/dL High 7-18 [facility] Comment on above: Performed By: #### L 500.4100, L501.9985, L500.4050, L100.0100 ####[facility] [address] [place], [address] Hemoglobin A1con 07-17-2024 HbA1c (Bld) [Mass fraction] 5.6 % Normal 3.8-5.6 [facility] Comment on above: Result Comment: Norm al < 5.7 % Prediabetic 5.7 - 6.4 % Diabetic >or= 6.5 % Please note range changes. Performed By: #### L 500.4100, L501.9985, L500.4050, L100.0100 ####[facility] [address] [place], [address] Lipid Profileon 07-17-2024 Cholesterol [Mass/Vol] 153 mg/dL Normal 200 [facility] Comment on above: Result Comment: <200 mg/dL Desirable 200-240 mg/dL Borderline >240 mg/dL High Risk Performed By: #### L 500.4100, L501.9985, L500.4050, L100.0100 ####[facility] [address] [place], [address] Cholesterol in HDL [Mass/Vol] 61 mg/dL Normal [facility] Comment on above: Result Comment: The drugs N-Acetylcysteine and Metamizole may falselydepress this assay. Reference Range HDL <40 mg/dL Low HDL Cholesterol HDL >or= 60 mg/dL High HDL Cholesterol Performed By: #### L 500.4100, L501.9985, L500.4050, L100.0100 ####[facility] [address] [place], [address] Cholesterol in LDL [Mass/Vol] 44 mg/dL Normal 0-130 [facility] Comment on above: Performed By: #### L 500.4100, L501.9985, L500.4050, L100.0100 ####[facility] [address] [place], [address] Cholesterol in VLDL [Mass/Vol] 48 mg/dL High 5-40 [facility] Comment on above: Performed By: #### L 500.4100, L501.9985, L500.4050, L100.0100 ####[facility] [address] [place], [address] Triglyceride [Mass/Vol] 242 mg/dL High [facility] Comment on above: Result Comment: The drugs N-Acetylcysteine and Metamizole may falselydepress this assay.Serum Triglycerides Reference Interval Normal <150 mg/dL Borderline high 150 - 199 mg/dL High 200 - 499 mg/dL Very High > or = 500 mg/dL Performed By: #### L 500.4100, L501.9985, L500.4050, L100.0100 ####[facility] [address] [place], [address] MR/CON.PCM.NEon 07-17-2024 MR/CON.PCM.NE Normal [facility] Brain without Contraston Brain without Contrast Normal [facility] Echo Completeon 07-16-2024 Echo Complete Normal [facility] EGD Study observation Narrat iveon 03-23-2024 [facility] Gastrointestinal Endoscopy Patient Name: Kary Haddad Procedure Date: 03/23/2024 11:01 AM Date of : 1955 Admit Type: Outpatient Room: [place] [address] Gender: Female Note Status: Finalized Attending MD: Casimiro Torrez MD, [id number] Procedure: Upper GI endoscopy Indications: Follow-up of [...] Note Initiated On: 03/23/2024 11:01 AM [facility] Radiology Study observation (narrative) [facility] Absolute lymphocyte countOrd ered By: Ronald Lowe on 12-03-2023 Lymphocytes Auto (Unsp spec) [#/Vol] 1.83 10*3/uL 0.83-4.51 [facility] Automated lymphocyte count a s percentage of total leukocytesOrdered By: Ronald Lowe on 12-03-2023 Lymphocytes/100 WBC Auto (Unsp spec) 26.7 % 19-41 [facility] Basophil percentageOrdered B y: Ronald Lowe on 12-03-2023 Basophil percentage 2.4 mg/dL 2.5-4.9 [facility] Basophils/100 WBC (Bld) 0.7 % 0-1 [facility] Chloride [Moles/Vol] 117 mmol/L 98-107 [facility] Eosinophils/100 WBC (Bld) 4.4 % 0-5 [facility] Glucose [Mass/Vol] 105 mg/dL 74-106 [facility] Comment on above: Fasting Glucose resu lt from 100 to 125 mg/dL suggests IMPAIRED HOMEOSTASIS per A.D.A. criteria. Hemoglobin (Bld) [Mass/Vol] 9.5 g/dL 12.0-15.0 [facility] Monocytes/100 WBC (Bld) 9.9 % 0-10 [facility] Neutrophils (Bld) [#/Vol] 4.0 10*3/uL 2.0-7.7 [facility] Neutrophils/100 WBC (Bld) 57.9 % 47-70 [facility] Potassium [Moles/Vol] 4.1 mmol/L 3.5-5.1 [facility] Sodium [Moles/Vol] 143 mmol/L 136-145 [facility] WBC (Bld) [#/Vol] 6.9 10*3/uL 4.4-11.0 [facility] Determination of erythrocyte mean corpuscular volume (MCV)Ordered By: Ronald Lowe on 12-03-2023 MCV (RBC) [Entitic vol] 91.1 fL 81-99 [facility] Erythrocyte distribution wid th ratioOrdered By: Ronald Lowe on 12-03-2023 Erythrocyte distribution width (RBC) [Ratio] 13.7 % 11.6-14.6 [facility] Erythrocyte distribution wid th standard deviationOrdered By: Ronald Lowe on 12-03-2023 Erythrocyte distribution width (RBC) [Entitic vol] 46.1 fL 35.1-43.9 [facility] Hematocrit Auto (Bld) [Volum e fraction]Ordered By: Ronald Lowe on 12-03-2023 Hematocrit (Bld) [Volume fraction] 29.8 % 37-47 [facility] Immature granulocytes/100 WB C Auto (Bld)Ordered By: Ronald Lowe on 12-03-2023 Immature granulocytes/100 WBC (Bld) 0.400 % 0.0-0.9 [facility] Comment on above: IG% - Immature Granu locytes (promyelocytes, myelocytes and metamyelocytes) > 1% indicates that a LEFT SHIFT is Present. Laboratory - Chemistry and C hemistry - challengeOrdered By: Ronald Lowe on 12-03-2023 CO2 [Moles/Vol] 20.0 mmol/L 21.0-32.0 [facility] Magnesium [Mass/Vol] 1.6 mg/dL 1.6-2.6 [facility] Urea nitrogen/Creatinine [Mass ratio] 16.2 mg/mg 10-20 [facility] Laboratory - Hematology and Cell countsOrdered By: Ronald Lowe on 12-03-2023 MCH (RBC) [Entitic mass] 29.1 pg 27.0-32.0 [facility] MCHC (RBC) [Mass/Vol] 31.9 g/dL 32-36 [facility] Nucleated RBC/100 WBC (Bld) [Ratio] 0 % 0-5 [facility] Platelet mean volume (Bld) [Entitic vol] 11.5 fL 6.2-12.0 [facility] Platelets (Bld) [#/Vol] 276 10*3/uL 150-450 [facility] No Panel InformationOrdered By: Ronald Lowe on 12-03-2023 Estimated Creatinine Clearance Calc 33.93 ml/min [facility] Estimated GFR (MDRD) Amer 47 mL/min >60 [facility] Comment on above: GFR Calc Estimated GFR (MDRD) Non-Af Amer 39 mL/min >60 [facility] Comment on above: Non- GFR Calc RBC Auto (Bld) [#/Vol]Ordere d By: Ronald Lowe on 12-03-2023 RBC (Bld) [#/Vol] 3.27 10*6/uL 4.2-5.[address] [facility] er Serum or plasma calcium yamli urement (mass/volume)Ordered By: Ronald Lowe on 12-03-2023 Calcium [Mass/Vol] 8.6 mg/dL 8.5-10.1 [facility] r Serum or plasma creatinine m easurement (mass/volume)Ordered By: Ronald Lowe on 12-03-2023 Creatinine [Mass/Vol] 1.42 mg/dL 0.55-1.02 [facility] Comment on above: The validity of the calculated GFR & GFRAA in patients over 70 years has not been determined. Clinical correlation is essential. Serum or plasma urea nitroge n measurement (mass/volume)Ordered By: Ronald Lowe on 12-03-2023 Urea nitrogen [Mass/Vol] 23 mg/dL 7-18 [facility] Thin prep Papanicolaou smear with manual screeningOrdered By: Ronald Lowe on 12-03-2023 Thin prep Papanicolaou smear with manual screening 6 5-15 [facility] Absolute lymphocyte countOrd ered By: Raisa Calhoun on 12-01-2023 Lymphocytes Auto (Unsp spec) [#/Vol] 2.01 10*3/uL 0.83-4.51 [facility] Activated partial thrombopla stin time (aPTT) in platelet poor plasma by coagulation aOrdered By: Raisa Calhoun on 12-01-2023 aPTT Coag (PPP) [Time] 28.2 s 24.1-36.2 [facility] Automated lymphocyte count a s percentage of total leukocytesOrdered By: Raisa Calhoun on 12-01-2023 Lymphocytes/100 WBC Auto (Unsp spec) 16.6 % 19-41 [facility] Basophil percentageOrdered B y: Raisa Calhoun on 12-01-2023 Basophils/100 WBC (Bld) 0.7 % 0-1 [facility] Bilirubin [Mass/Vol] 0.40 mg/dL 0.20-1.00 [facility] Comment on above: For patients on eltr ombopag therapy, use of Dimension [place] TBIL is not recommended. Chloride [Moles/Vol] 109 mmol/L 98-107 [facility] Eosinophils/100 WBC (Bld) 2.2 % 0-5 [facility] Glucose [Mass/Vol] 139 mg/dL 74-106 [facility] Comment on above: Fasting Glucose resu lt greater than or equal to 126 mg/dL suggests DIABETES MELLITUS per A.D.A. criteria. Hemoglobin (Bld) [Mass/Vol] 11.1 g/dL 12.0-15.0 [facility] Lactate [Moles/Vol] 1.3 mmol/L 0.4-2.0 [facility] Monocytes/100 WBC (Bld) 8.4 % 0-10 [facility] Neutrophils (Bld) [#/Vol] 8.7 10*3/uL 2.0-7.7 [facility] Neutrophils/100 WBC (Bld) 71.5 % 47-70 [facility] Potassium [Moles/Vol] 3.9 mmol/L 3.5-5.1 [facility] Protein [Mass/Vol] 6.9 g/dL 6.4-8.2 [facility] Sodium [Moles/Vol] 139 mmol/L 136-145 [facility] WBC (Bld) [#/Vol] 12.1 10*3/uL 4.4-11.0 [facility] Determination of erythrocyte mean corpuscular volume (MCV)Ordered By: Raisa Calhoun on 12-01-2023 MCV (RBC) [Entitic vol] 89.7 fL 81-99 [facility] Direct bilirubinOrdered By: Raisa Calhoun on 12-01-2023 Bilirubin.direct [Mass/Vol] 0.12 mg/dL 0.00-0.30 [facility] Erythrocyte distribution wid th ratioOrdered By: Raisa Calhoun on 12-01-2023 Erythrocyte distribution width (RBC) [Ratio] 13.9 % 11.6-14.6 [facility] Erythrocyte distribution wid th standard deviationOrdered By: Raisa Calhoun on 12-01-2023 Erythrocyte distribution width (RBC) [Entitic vol] 45.1 fL 35.1-43.9 [facility] Hematocrit Auto (Bld) [Volum e fraction]Ordered By: Raisa Calhoun on 12-01-2023 Hematocrit (Bld) [Volume fraction] 34.7 % 37-47 [facility] Immature granulocytes/100 WB C Auto (Bld)Ordered By: Raisa Calhoun on 12-01-2023 Immature granulocytes/100 WBC (Bld) 0.600 % 0.0-0.9 [facility] Comment on above: IG% - Immature Granu locytes (promyelocytes, myelocytes and metamyelocytes) > 1% indicates that a LEFT SHIFT is Present. Laboratory - Chemistry and C hemistry - challengeOrdered By: Raisa Calhoun on 12-01-2023 ALP [Catalytic activity/Vol] 76 U/L 45-117 [facility] ALT [Catalytic activity/Vol] 20 U/L 13-56 [facility] CO2 [Moles/Vol] 23.0 mmol/L 21.0-32.0 [facility] Globulin (S) [Mass/Vol] 3.4 g/dL 2.2-4.2 [facility] Urea nitrogen/Creatinine [Mass ratio] 28.0 mg/mg 10-20 [facility] Laboratory - CoagulationOrde red By: Raisa Calhoun on 12-01-2023 INR Coag (Bld) [Relative time] 1.1 {INR} [facility] PT Coag (PPP) [Time] 14.6 s 11.7-14.9 [facility] Laboratory - Hematology and Cell countsOrdered By: Raisa Calhoun on 12-01-2023 MCH (RBC) [Entitic mass] 28.7 pg 27.0-32.0 [facility] MCHC (RBC) [Mass/Vol] 32.0 g/dL 32-36 [facility] Nucleated RBC/100 WBC (Bld) [Ratio] 0 % 0-5 [facility] Platelet mean volume (Bld) [Entitic vol] 10.5 fL 6.2-12.0 [facility] Platelets (Bld) [#/Vol] 401 10*3/uL 150-450 [facility] No Panel InformationOrdered By: Raisa Calhoun on 12-01-2023 Estimated Creatinine Clearance Calc 25.91 ml/min [facility] Estimated GFR (MDRD) Amer 34 mL/min >60 [facility] Comment on above: GFR Calc Estimated GFR (MDRD) Non-Af Amer 28 mL/min >60 [facility] Comment on above: Non- GFR Calc RBC Auto (Bld) [#/Vol]Ordere d By: Raisa Calhoun on 12-01-2023 RBC (Bld) [#/Vol] 3.87 10*6/uL 4.2-5.4 [facility] Serum or plasma calcium yamil urement (mass/volume)Ordered By: Raisa Calhoun on 12-01-2023 Calcium [Mass/Vol] 9.4 mg/dL 8.5-10.1 [facility] Serum or plasma creatinine m easurement (mass/volume)Ordered By: Raisa Calhoun on 12-01-2023 Creatinine [Mass/Vol] 1.86 mg/dL 0.55-1.02 [facility] Comment on above: The validity of the calculated GFR & GFRAA in patients over 70 years has not been determined. Clinical correlation is essential. Serum or plasma urea nitroge n measurement (mass/volume)Ordered By: Raisa Calhoun on 12-01-2023 Urea nitrogen [Mass/Vol] 52 mg/dL 7-18 [facility] Stool gastrointestinal hemog lobin detection by immunologic methodOrdered By: Raisa Calhoun on 12-01-2023 Lower GI hemoglobin IA Ql (Stl) [facility] Thin prep Papanicolaou smear with manual screeningOrdered By: Raisa Calhoun on 12-01-2023 Thin prep Papanicolaou smear with manual screening 3.5 g/dL 3.2-5.0 [facility] Thin prep Papanicolaou smear with manual screening 18 U/L 15-37 [facility] Thin prep Papanicolaou smear with manual screening 7 5-15 [facility] Absolute lymphocyte countOrd ered By: Ronald Lowe on 07-27-2023 Lymphocytes Auto (Unsp spec) [#/Vol] 2.05 10*3/uL 0.83-4.51 [facility] Basophil percentageOrdered B y: Ronald Lowe on 07-27-2023 Basophil percentage 2.7 mg/dL 2.5-4.9 [facility] Basophils/100 WBC (Bld) 0.8 % 0-1 [facility] Chloride [Moles/Vol] 113 mmol/L 98-107 [facility] Eosinophils/100 WBC (Bld) 2.6 % 0-5 [facility] Glucose [Mass/Vol] 127 mg/dL 74-106 [facility] Comment on above: Fasting Glucose resu lt greater than or equal to 126 mg/dL suggests DIABETES MELLITUS per A.D.A. criteria. Neutrophils (Bld) [#/Vol] 6.8 10*3/uL 2.0-7.7 [facility] Neutrophils/100 WBC (Bld) 65.5 % 47-70 [facility] Potassium [Moles/Vol] 3.8 mmol/L 3.5-5.1 [facility] Sodium [Moles/Vol] 140 mmol/L 136-145 [facility] WBC (Bld) [#/Vol] 10.4 10*3/uL 4.4-11.0 [facility] Blood erythrocytes count (nu mber/volume)Ordered By: Ronald Lowe on 07-27-2023 RBC (Bld) [#/Vol] 3.84 10*6/uL 4.2-5.4 [facility] Blood hemoglobin measurement (mass/volume)Ordered By: Ronald Lowe on 07-27-2023 Hemoglobin (Bld) [Mass/Vol] 11.1 g/dL 12.0-15.0 [facility] Blood lymphocytes/100 leukoc ytesOrdered By: Ronald Lowe on 07-27-2023 Lymphocytes/100 WBC (Bld) 19.7 % 19-41 [facility] Blood monocytes/100 leukocyt esOrdered By: Ronald Lowe on 07-27-2023 Monocytes/100 WBC (Bld) 10.8 % 0-10 [facility] Blood platelet mean volumeOr dered By: Ronald Lowe on 07-27-2023 Platelet mean volume (Bld) [Entitic vol] 11.2 fL 6.2-12.0 [facility] Determination of erythrocyte mean corpuscular volume (MCV)Ordered By: Ronald Lowe on 07-27-2023 MCV (RBC) [Entitic vol] 91.9 fL 81-99 [facility] Hematocrit Auto (Bld) [Volum e fraction]Ordered By: Ronald Lowe on 07-27-2023 Hematocrit (Bld) [Volume fraction] 35.3 % 37-47 [facility] Laboratory - Chemistry and C hemistry - challengeOrdered By: Ronald Lowe on 07-27-2023 CO2 [Moles/Vol] 22.0 mmol/L 21.0-32.0 [facility] Magnesium [Mass/Vol] 1.6 mg/dL 1.6-2.6 [facility] Urea nitrogen/Creatinine [Mass ratio] 21.7 mg/mg 10-20 [facility] Laboratory - Hematology and Cell countsOrdered By: Ronald Lowe on 07-27-2023 Erythrocyte distribution width (RBC) [Entitic vol] 49.1 fL 35.1-43.9 [facility] Erythrocyte distribution width (RBC) [Ratio] 14.6 % 11.6-14.6 [facility] Immature granulocytes/100 WBC (Bld) 0.600 % 0.0-0.9 [facility] Comment on above: IG% - Immature Granu locytes (promyelocytes, myelocytes and metamyelocytes) > 1% indicates that a LEFT SHIFT is Present. MCH (RBC) [Entitic mass] 28.9 pg 27.0-32.0 [facility] Nucleated RBC/100 WBC (Bld) [Ratio] 0 % 0-5 [facility] MCHC Auto (RBC) [Mass/Vol]Or dered By: Ronald Lowe on 07-27-2023 MCHC (RBC) [Mass/Vol] 31.4 g/dL 32-36 [facility] No Panel InformationOrdered By: Ronald Lowe on 07-27-2023 Estimated Creatinine Clearance Calc 30.00 ml/min [facility] Estimated GFR (MDRD) Amer 49 mL/min >60 [facility] Comment on above: GFR Calc Estimated GFR (MDRD) Non-Af Amer 40 mL/min >60 [facility] Comment on above: Non- GFR Calc Platelets bldOrdered By: Donnie Lowe on 07-27-2023 Platelets (Bld) [#/Vol] 301 10*3/uL 150-450 [facility] Serum or plasma calcium yamil urement (mass/volume)Ordered By: Ronald Lowe on 07-27-2023 Calcium [Mass/Vol] 9.1 mg/dL 8.5-10.1 [facility] Serum or plasma creatinine m easurement (mass/volume)Ordered By: Ronald Lowe on 07-27-2023 Creatinine [Mass/Vol] 1.38 mg/dL 0.55-1.02 [facility] Comment on above: The validity of the calculated GFR & GFRAA in patients over 70 years has not been determined. Clinical correlation is essential. Serum or plasma urea nitroge n measurement (mass/volume)Ordered By: Ronald Lowe on 07-27-2023 Urea nitrogen [Mass/Vol] 30 mg/dL 7-18 [facility] Thin prep Papanicolaou smear with manual screeningOrdered By: Ronald Lowe on 07-27-2023 Thin prep Papanicolaou smear with manual screening 5 5-15 [facility] Basophil percentageOrdered B y: Melecio Torrez on 07-26-2023 Bilirubin [Mass/Vol] 0.40 mg/dL 0.20-1.00 [facility] Comment on above: For patients on eltr ombopag therapy, use of Dimension [place] TBIL is not recommended. Protein [Mass/Vol] 6.3 g/dL 6.4-8.2 [facility] Blood manual differential co mment interpretation (narrative result)Ordered By: Melecio Torrez on 07-26-2023 Manual differential comment Fitz (Bld) [Interp] SCANNED [facility] Comment on above: MONOCYTOSIS PRESENT Blood platelet morphology de termination (nominal result)Ordered By: Melecio Torrez on 07-26-2023 Platelet morphology finding Nom (Bld) LARGE [facility] Direct bilirubinOrdered By: Melecio Torrez on 07-26-2023 Bilirubin.direct [Mass/Vol] 0.12 mg/dL 0.00-0.30 [facility] INR in Blood by Coagulation assayOrdered By: Melecio Torrez on 07-26-2023 INR Coag (Bld) [Relative time] 1.1 {INR} [facility] Laboratory - Chemistry and C hemistry - challengeOrdered By: Melecio Torrez on 07-26-2023 ALP [Catalytic activity/Vol] 68 U/L 45-117 [facility] ALT [Catalytic activity/Vol] 26 U/L 13-56 [facility] Globulin (S) [Mass/Vol] 3.1 g/dL 2.2-4.2 [facility] Natriuretic peptide B (Bld) [Mass/Vol] 1014.8 pg/mL 0-100 [facility] Laboratory - CoagulationOrde red By: Melecio Torrez on 07-26-2023 aPTT Coag (Bld) [Time] 45.6 s 24.1-36.2 [facility] PT Coag (PPP) [Time] 14.7 s 11.7-14.9 [facility] No Panel InformationOrdered By: Melecio Torrez on 07-26-2023 Troponin I High Sensitivity 1815 pg/mL 3.0-54.0 [facility] Comment on above: Critical Result(s) C alled at: 01:45:09 07/26/2023 by: Miguel Angel Baldwin. ADRIA BECKFORD (RN) (PCU) Results read back by same. Please Note: New Test Units and Gender Specific Reference Ranges. For more information see Policy Stat Procedure [place] High Sensitivity Troponin (TNIH) and attachments. Review by pathologistOrdered By: Melecio Torrez on 07-26-2023 Pathologist review Fitz (Unsp spec) [Interp] Reviewed [facility] Comment on above: Previous reported re sult: Anna owens Edited by: MARIA LUISA on 07/26/23:1426Neutrophilic leukocytosis.Clinical correlation suggested.Dereck Nunn D.O. 07/26/23 AMENDED REPORT 07/26/23 1426 PATH REV previously reported as: Anna owens Serum or plasma albumin yamil urement (mass/volume)Ordered By: Melecio Torrez on 07-26-2023 Albumin [Mass/Vol] 3.2 g/dL 3.2-5.0 [facility] Thin prep Papanicolaou smear with manual screeningOrdered By: Melecio Torrez on 07-26-2023 Thin prep Papanicolaou smear with manual screening 22 U/L 15-37 [facility] Absolute lymphocyte countOrd ered By: Valentin Ceballos on 07-25-2023 Lymphocytes Auto (Unsp spec) [#/Vol] 1.03 10*3/uL 0.83-4.51 [facility] Basophil percentageOrdered B y: Valentin Ceballos on 07-25-2023 Basophils/100 WBC (Bld) 0.5 % 0-1 [facility] Chloride [Moles/Vol] 111 mmol/L 98-107 [facility] Eosinophils/100 WBC (Bld) 0.1 % 0-5 [facility] Glucose [Mass/Vol] 146 mg/dL 74-106 [facility] Comment on above: Fasting Glucose resu lt greater than or equal to 126 mg/dL suggests DIABETES MELLITUS per A.D.A. criteria. Neutrophils (Bld) [#/Vol] 16.7 10*3/uL 2.0-7.7 [facility] Neutrophils/100 WBC (Bld) 88.1 % 47-70 [facility] Potassium [Moles/Vol] 3.7 mmol/L 3.5-5.1 [facility] Sodium [Moles/Vol] 142 mmol/L 136-145 [facility] WBC (Bld) [#/Vol] 19.0 10*3/uL 4.4-11.0 [facility] Blood erythrocytes count (nu mber/volume)Ordered By: Valentin Ceballos on 07-25-2023 RBC (Bld) [#/Vol] 4.88 10*6/uL 4.2-5.4 [facility] Blood hemoglobin measurement (mass/volume)Ordered By: Valentin Ceballos on 07-25-2023 Hemoglobin (Bld) [Mass/Vol] 13.9 g/dL 12.0-15.0 [facility] Blood lymphocytes/100 leukoc ytesOrdered By: Valentin Ceballos on 07-25-2023 Lymphocytes/100 WBC (Bld) 5.4 % 19-41 [facility] Blood monocytes/100 leukocyt esOrdered By: Valentin Ceballos on 07-25-2023 Monocytes/100 WBC (Bld) 5.4 % 0-10 [facility] Blood platelet mean volumeOr dered By: Valentin Ceballos on 07-25-2023 Platelet mean volume (Bld) [Entitic vol] 10.6 fL 6.2-12.0 [facility] Determination of erythrocyte mean corpuscular volume (MCV)Ordered By: Valentin Ceballos on 07-25-2023 MCV (RBC) [Entitic vol] 88.5 fL 81-99 [facility] Hematocrit Auto (Bld) [Volum e fraction]Ordered By: Valentin Ceballos on 07-25-2023 Hematocrit (Bld) [Volume fraction] 43.2 % 37-47 [facility] Laboratory - Chemistry and C hemistry - challengeOrdered By: Valentin Ceballos on 07-25-2023 CO2 [Moles/Vol] 21.0 mmol/L 21.0-32.0 [facility] Natriuretic peptide B (Bld) [Mass/Vol] 383.4 pg/mL 0-100 [facility] Urea nitrogen/Creatinine [Mass ratio] 16.3 mg/mg 10-20 [facility] Laboratory - Hematology and Cell countsOrdered By: Valentin Ceballos on 07-25-2023 Erythrocyte distribution width (RBC) [Entitic vol] 45.2 fL 35.1-43.9 [facility] Erythrocyte distribution width (RBC) [Ratio] 14.1 % 11.6-14.6 [facility] Immature granulocytes/100 WBC (Bld) 0.500 % 0.0-0.9 [facility] Comment on above: IG% - Immature Granu locytes (promyelocytes, myelocytes and metamyelocytes) > 1% indicates that a LEFT SHIFT is Present. MCH (RBC) [Entitic mass] 28.5 pg 27.0-32.0 [facility] Nucleated RBC/100 WBC (Bld) [Ratio] 0 % 0-5 [facility] MCHC Auto (RBC) [Mass/Vol]Or dered By: Valentin Ceballos on 07-25-2023 MCHC (RBC) [Mass/Vol] 32.2 g/dL 32-36 [facility] No Panel InformationOrdered By: Valentin Ceballos on 07-25-2023 Troponin I High Sensitivity 2328 pg/mL 3.0-54.0 [facility] Comment on above: Critical Result(s) C alled at: 21:09:57 07/25/2023 by: Dary Becerra to Kaye Baldwin. Results read back by same. Please Note: New Test Units and Gender Specific Reference Ranges. For more information see Policy Stat Procedure [place] High Sensitivity Troponin (TNIH) and attachments. Estimated Creatinine Clearance Calc 29.36 ml/min [facility] Estimated GFR (MDRD) Amer 47 mL/min >60 [facility] Comment on above: GFR Calc Estimated GFR (MDRD) Non-Af Amer 39 mL/min >60 [facility] Comment on above: Non- GFR Calc Platelets bldOrdered By: Jozef Ceballos on 07-25-2023 Platelets (Bld) [#/Vol] 429 10*3/uL 150-450 [facility] Serum or plasma calcium yamil urement (mass/volume)Ordered By: Valentin Ceballos on 07-25-2023 Calcium [Mass/Vol] 9.3 mg/dL 8.5-10.1 [facility] Serum or plasma creatinine m easurement (mass/volume)Ordered By: Valentin Ceballos on 07-25-2023 Creatinine [Mass/Vol] 1.41 mg/dL 0.55-1.02 [facility] Comment on above: The validity of the calculated GFR & GFRAA in patients over 70 years has not been determined. Clinical correlation is essential. Serum or plasma urea nitroge n measurement (mass/volume)Ordered By: Valentin Ceballos on 07-25-2023 Urea nitrogen [Mass/Vol] 23 mg/dL 7-18 [facility] Thin prep Papanicolaou smear with manual screeningOrdered By: Valentin Ceballos on 07-25-2023 Thin prep Papanicolaou smear with manual screening 10 - [facility] Culture, urineOrdered By: Edith Hargrove on 06-05-2023 Bacteria identified Cx Nom (U) Escherichia coli [facility] Vital Signs Date Time Vital Sign Value Performing Clinician Faci lity 05-17-2025 09:17-0400 Body temperature 98.2 [degF] Dr. Phuc Barker MD Work Phone: [facility] 05-17-2025 09:17-0400 Body weight 74.[address] Phuc Barker MD Work Phone: [facility] 05-17-2025 09:17-0400 Diastolic blood pressure 74 mm[Hg] Dr. Phuc Barker MD Work Phone: [facility] 05-17-2025 09:17-0400 Heart rate 75 /min Dr. Phuc Barker MD Work Phone: [facility] 05-17-2025 09:17-0400 Respiratory rate 17 /min Dr. Phuc Barker MD Work Phone: [facility] 05-17-2025 09:17-0400 SaO2% (BldA) [Mass fraction] 96 % Dr. Phuc Barker MD Work Phone: [facility] 05-17-2025 09:17-0400 Systolic blood pressure 126 mm[Hg] Dr. Phuc Barker MD Work Phone: [facility] 04-20-2025 13:06-0400 Body height 156.2 cm Sultana Garcia Work Phone: [facility] 04-20-2025 13:06-0400 Body mass index (BMI) [Ratio] 29.37 kg/m2 Sultana Garcia Work Phone: [facility] 04-20-2025 13:06-0400 Body temperature 97.9 [degF] Sultana Garcia Work Phone: [facility] 04-20-2025 13:06-0400 Body weight 71.67 kg Sultana Garcia Work Phone: [facility] 04-20-2025 13:06-0400 Diastolic blood pressure 78 mm[Hg] Sultana Garcia Work Phone: [facility] 04-20-2025 13:06-0400 Heart rate 67 /min Sultana Garcia Work Phone: [facility] 04-20-2025 13:06-0400 SaO2% (BldA) [Mass fraction] 95 % Sultana Garcia Work Phone: [facility] 04-20-2025 13:06-0400 Systolic blood pressure 123 mm[Hg] Sultana Garcia Work Phone: [facility] 03-23-2024 14:15-0400 Heart rate 69 /min Casimiro Torrez MD Work Phone: [facility] 03-23-2024 14:15-0400 Respiratory rate 17 /min Casimiro Torrez MD Work Phone: [facility] 03-23-2024 14:15-0400 SaO2% (BldA) [Mass fraction] 98 % Casimiro Torrez MD Work Phone: [facility] 03-23-2024 14:05-0400 Body temperature 97.2 [degF] Casimiro Torrez MD Work Phone: [facility] 03-23-2024 14:05-0400 Diastolic blood pressure 53 mm[Hg] Casimiro Torrez MD Work Phone: [facility] 03-23-2024 14:05-0400 Systolic blood pressure 100 mm[Hg] Casimiro Torrez MD Work Phone: [facility] 12-03-2023 07:53-0400 Heart rate 55 /min Dr. Awa Hargrove Work Phone: [facility] 12-03-2023 07:50-0400 Body temperature 98.2 [degF] Dr. Awa Hargrove Work Phone: [facility] 12-03-2023 07:50-0400 Diastolic blood pressure 44 mm[Hg] Dr. Awa Hargrove Work Phone: [facility] 12-03-2023 07:50-0400 Respiratory rate 16 /min Dr. Awa Hargrove Work Phone: [facility] 12-03-2023 07:50-0400 SaO2% (BldA) [Mass fraction] 96 % Dr. Awa Hargrove Work Phone: [facility] 12-03-2023 07:50-0400 Systolic blood pressure 105 mm[Hg] Dr. Awa Hargrove Work Phone: [facility] 12-02-2023 08:56-0400 Body height 154.[address] Awa Hargrove Work Phone: [facility] 12-02-2023 08:56-0400 Body mass index (BMI) [Ratio] 30.8 kg/m2 Dr. Awa Hargrove Work Phone: [facility] 12-02-2023 08:56-0400 Body weight 74.[address] Awa Hargrove Work Phone: [facility] 12-01-2023 14:15-0400 Body temperature 98 [degF] Dr. Awa Hargrove Work Phone: [facility] 12-01-2023 14:15-0400 Diastolic blood pressure 76 mm[Hg] Dr. Awa Hargrove Work Phone: [facility] 12-01-2023 14:15-0400 Heart rate 48 /min Dr. Awa Hargrove Work Phone: [facility] 12-01-2023 14:15-0400 Respiratory rate 14 /min Dr. Awa Hargrove Work Phone: [facility] 12-01-2023 14:15-0400 SaO2% (BldA) [Mass fraction] 98 % Dr. Awa Hargrove Work Phone: [facility] 12-01-2023 14:15-0400 Systolic blood pressure 128 mm[Hg] Dr. Awa Hargrove Work Phone: [facility] 12-01-2023 10:07-0400 Body height 154.[address] Awa Hargrove Work Phone: [facility] 12-01-2023 10:07-0400 Body mass index (BMI) [Ratio] 30.8 kg/m2 Dr. Awa Hargrove Work Phone: [facility] 12-01-2023 10:07-0400 Body weight 74.[address] Awa Hargrove Work Phone: [facility] 07-27-2023 12:39-0500 Body temperature 97.8 [degF] Dr. Awa Hargrove Work Phone: [facility] 07-27-2023 12:39-0500 Diastolic blood pressure 85 mm[Hg] Dr. Awa Hargrove Work Phone: [facility] 07-27-2023 12:39-0500 Heart rate 76 /min Dr. Awa Hargrove Work Phone: [facility] 07-27-2023 12:39-0500 Respiratory rate 16 /min Dr. Awa Hargrove Work Phone: [facility] 07-27-2023 12:39-0500 SaO2% (BldA) [Mass fraction] 95 % Dr. Awa Hargrove Work Phone: [facility] 07-27-2023 12:39-0500 Systolic blood pressure 143 mm[Hg] Dr. Awa Hargrove Work Phone: [facility] 07-25-2023 22:10-0500 Body height 157.[address] Awa Hargrove Work Phone: [facility] 07-25-2023 22:10-0500 Body mass index (BMI) [Ratio] 28.3 kg/m2 Dr. Awa Hargrove Work Phone: [facility] 07-25-2023 22:10-0500 Body weight 70.[address] Awa Hargrove Work Phone: [facility] 07-25-2023 21:53-0500 Body temperature 98.2 [degF] [facility] 07-25-2023 21:53-0500 Diastolic blood pressure 92 mm[Hg] [facility] 07-25-2023 21:53-0500 Heart rate 61 /min [facility] 07-25-2023 21:53-0500 Respiratory rate 20 /min [facility] 07-25-2023 21:53-0500 SaO2% (BldA) [Mass fraction] 96 % [facility] 07-25-2023 21:53-0500 Systolic blood pressure 182 mm[Hg] [facility] 07-25-2023 17:02-0500 Body height 157.48 cm [facility] 07-25-2023 17:02-0500 Body mass index (BMI) [Ratio] 29.5 kg/m2 [facility] 07-25-2023 17: Body weight 73.11 kg [facility] Encounters Encounter Date Encounter Type Care Provider Facility Start: 2025 End: 2025 ambulatory Phuc Barker Facility:[facility] Start: 07-12-2025 ambulatory Devendra Beverly Facility: [facility] Start: 07-06-2025 ambulatory Phuc Barker Facility:[facility] Start: 06-29-2025 ambulatory Phuc Barker Facility:[facility] Start: 06-03-2025 End: 06-03-2025 ambulatory Phuc Barker Facility:[facility] Start: 06-01-2025 End: 06-01-2025 ambulatory [facility] Facility:[facility] Start: 05-17-2025 End: 05-17-[address] Phuc Barker MD Work Phone: [place] [facility] Start: 05-17-2025 End: 05-17-[address] Giovanny Brady MD -[facility] Work Phone: Start: 05-17-2025 End: 05-17-[address] Giovanny Brady MD -[facility] Work Phone: Start: 05-17-2025 End: 05-17-[address] Phuc Barker MD Work Phone: -[facility] Start: 05-17-2025 End: 05-17-2025 ambulatory Giovanny Brady Facility:[facility] Start: 05-14-2025 End: 05-14-2025 ambulatory [facility] Ambulatory Start: 05-04-2025 ambulatory Bonnie Perera ity:[facility] Start: 05-04-[address] Ebonie Chang MD -[facility] Start: 04-29-2025 End: 04-29-2025 Telephone [...] 04-06-[address] Devendra delacruz MD -[facility] Start: 04-06-2025 End: 04-06-2025 ambulatory Devendra MCCLELLAND Facility:[facility] Start: 03-30-[address] Devendra delacruz MD -[facility] Start: 03-30-2025 End: 03-30-2025 ambulatory Puhc Barker Facility:[facility] Start: 02-12-2025 ambulatory Devendra MCCLELLAND Facil ity:[facility] Start: 02-12-[address] Devendra delacruz MD [facility] Start: 01-13-2025 End: 01-13-[address] Phuc Barker MD Work Phone: [facility] Work Phone: Start: 01-13-2025 End: 01-13-[address] Johana Landrum MD -[facility] Start: 01-13-2025 End: 01-13-2025 ambulatory Johana MCCLELLAND Facility:[facility] Start: 12-02-2024 End: 12-02-[address] Johana Landrum MD -[facility] Start: 12-02-[address] Johana Landrum MD -[facility] Start: 12-02-2024 End: 12-02-2024 ambulatory Johana MCCLELLAND Facility:[facility] Start: 11-30-2024 End: 11-30-[address] Phuc Barker MD Work Phone: [facility] Work Phone: Start: 11-30-2024 End: 11-30-[address] Johana Landrum MD -[facility] Start: 11-30-2024 End: 11-30-2024 ambulatory Johana MCCLELLAND Facility:[facility] Start: 11-12-2024 End: 11-12-2024 ambulatory [facility] Ambulatory Start: 09-21-2024 End: 09-21-[address] Johana Landrum MD -[facility] Start: 09-21-2024 End: 09-21-2024 ambulatory Phuc Barker Facility:[facility] Start: 08-31-2024 End: 08-31-[address] Johana Landrum MD -[facility] Start: 08-31-2024 End: 08-31-2024 ambulatory Phuc Barker Facility:[facility] Start: 08-27-2024 End: 08-27-2024 Departed Referred [facility] -[facility] Start: 08-27-2024 End: 08-27-2024 ambulatory Phuc Barker Facility:[facility] Start: 07-24-2024 End: 07-24-2024 Emergency department patient visit Phuc Barker Facility:[facility] Start: 07-16-2024 ambulatory Phuc Barker Facility:[facility] Start: 06-22-2024 End: 06-22-2024 ambulatory Renita Knott [facility] THERAPIST Work Phone: [place] [facility] Comment on [...] examination done Casimiro Torrez MD Work Phone: [facility] Start: 03-06-2024 End: 03-06-2024 Subsequent hospital visit by physician [facility] Cat Scan Comment on above: Duodenal ulcer with hemorrhage [K26.4] Start: 12-03-2023 Non-patient / Non-visit Dr. Edith Hargrove Work Phone: [facility] Work Phone: Start: 12-03-2023 Non-patient / Non-visit Dr. Edith Hargrove Work Phone: [facility] Start: 12-02-2023 Non-patient / Non-visit Dr. Edith Hargrove Work Phone: [facility] Work Phone: Start: 12-02-2023 Non-patient / Non-visit Dr. Edith Hargrove Work Phone: [facility] Start: 12-01-2023 End: 12-03-2023 Evaluation and management of inpatient Dr. Awa [facility] Work Phone: Start: 12-01-2023 Non-patient / Non-visit Dr. Edith Hargrove Work Phone: [facility] Work Phone: Start: 10-25-2023 End: 10-25-[address] Awa Hargrove Work Phone: [facility]Speech Therapy Work Phone: Start: 09-16-2023 End: 09-16-[address] Awa Hargrove Work Phone: [facility] Work Phone: Start: 09-16-2023 End: 09-16-[address] Awa Hargrove Work Phone: [facility]-Radiology, [facility] Work Phone: Start: 07-29-2023 Non-patient / Non-visit Dr. Edith Hargrove Work Phone: [facility] Start: 07-27-2023 Non-patient / Non-visit Dr. Edith Hargrove Work Phone: [facility] Work Phone: Start: 07-26-2023 Non-patient / Non-visit Dr. Edith Hargrove Work Phone: [facility] Start: 07-26-2023 Non-patient / Non-visit Dr. Edith Hargrove Work Phone: [facility] Work Phone: Start: 07-25-2023 End: 07-25-2023 Non-patient / Non-visit Dr. Awa Hargrove Work Phone: [facility] Work Phone: Start: 07-25-2023 End: 07-27-2023 Evaluation and management of inpatient [facility]Progressive Care Unit Work Phone: Start: 06-05-2023 End: 06-05-2023 Patient encounter procedure [facility]Laboratory, Specimen Work Phone: Start: 10-20-2021 End: 10-20-2021 Discharged Recurring [facility]-Physical Therapy Procedures Date Procedure Procedure Detail Performing Clinician Start: 06-01-[address] Phuc Barker MD Work Phone: Start: 05-17-[address] Phuc Barker MD Work Phone: Comment on above: Performed at: [address] [id number] Director: Rk Petty MD, Phone: [phone] at: CB - [facility] [address] [id number] Director: Hussein Aguilar PhD, Phone: [phone] Start: 05-17-2025 Antibody to centromere measurement Dr. [...] Phuc dotson MD Work Phone: Start: 05-17-2025 CORPORATE ACCOUNTING MANAGER antibody measurement Dr. Phuc rae MD Work Phone: Comment on above: Test not performed Start: 05-17-2025 Urine lambda light chain measurement Dr. Phuc Barker MD Work Phone: Start: 05-17-[address] Phuc Barker MD Work Phone: Comment on above: Verified by repeat analysis Deficien cy: <3.4 Marginal: 3.4 - 5.1 Adequate: >5.1 Start: 05-04-2025 Serum inorganic phosphate measurement Dr. Phuc Barkre MD Work Phone: Start: 04-06-2025 Serum inorganic [...] RSV Vaccine (1 - 1-dose 75+ series) [facility] Start: 04-20-2028 Diabetes Screening Diabetes Screening [facility] Start: 08-27-2027 Screening for malignant neoplasm of colon [facility] Start: 06-22-2027 Diabetes Screening Diabetes Screening [facility] Start: 06-20-2027 Diabetes Screening Diabetes Screening [facility] Start: 03-02-2027 Diabetes Screening Diabetes Screening [facility] Start: 07-30-2025 End: 10-29-2025 CBC W Auto Differential panel - Blood COMPLETE BLOOD COUNT AND DIFFERENTIAL Lab STAT 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, not on chronic dialysis (HCC) Expected: 07/30/2025 (Approximate), Expires: 10/29/2025 [facility] Work Phone: Comment on above: Expected: 07/30/2025 (Approximate), Expi res: 10/29/2025 Start: 07-22-2025 ambulatory Facility:[facility] Start: 07-21-2025 ambulatory Facility:[facility] Start: 06-15-2025 Hepatitis B Vaccine (3 of 3 - Risk Dialysis Recombivax 3-dose series) Hepatitis B Vaccine (3 of 3 - Risk Dialysis Recombivax 3-dose series) [facility] Start: 06-01-2025 Registered Referred Registered [facility] Start: 05-18-2025 Electroencephalogram [facility] Start: 05-03-2025 Influenza vaccination Influenza Vaccine (#1) [facility] Start: 03-03-2025 Lipid panel Lipid Screening [facility] Start: 09-02-2024 Advance Directive Discussion Advance Directive Discussion [facility] Start: 09-02-2024 Medicare Advantage Annual Wellness Visit Medicare Advantage Annual Wellness Visit [facility] Start: 07-23-2024 End: 07-23-2024 Patient encounter procedure 07/23/2024 1:30 PM EST Office Visit [facility] [address] [facility] [address] [place] [id number] Sosa Salas, REED.HOSPICE MASSAGE THERAPIST [address] [place] [address] SDH (subdural hematoma) (HCC) [S06.5XAA [facility] Comment on above: SDH (subdural hematoma) (HCC) [S06.5XAA Start: 07-20-2024 End: 07-20-2024 Patient encounter procedure 07/20/2024 11:00 AM EST Appointment [facility] [address] [place] [id number] SDH (subdural hematoma) (HCC) [S06.5XAA [facility] Comment on above: SDH (subdural hematoma) (HCC) [S06.5XAA Start: 05-03-2024 Covid-19 Vaccine ( season) Covid-19 Vaccine ( season) [facility] Start: 05-03-2024 Influenza vaccination Influenza Vaccine (#1) [facility] Start: 04-13-2024 End: 04-13-2024 Admission to same day surgery center 04/13/2024 11:[address] [facility] GENERAL SURGERY DEPARTMENT 1 [facility] [address] [place] [address] Jules Alvarez MD [address] [place] [address] Go Over EGD/ CT Scan 03/06 [facility] SURGERY DEPARTMENT Comment on above: Go Over EGD/ CT Scan 03/06 Start: 03-30-2024 End: 03-30-2024 Admission to same day surgery center 03/30/2024 11:00 AM EDT [facility] SURGERY DEPARTMENT 1 [facility] [address]rd [place] [address] Jules Alvarez MD [address] [place] [address] (Fax) Go Over EGD/ CT Scan 03/06 [facility] SURGERY DEPARTMENT Comment on above: Go Over EGD/ CT Scan 03/06 Start: 03-23-2024 End: 03-23-2024 Patient encounter procedure 03/23/2024 8:00 AM EDT Appointment [facility] [address] [place] [address] Jules Alvarez MD [address] [place] [address] [facility] Start: 12-05-2023 Blood chemistry [facility] Start: 12-04-2023 Blood chemistry [facility] Start: 12-03-2023 Patient discharge [facility] Start: 12-02-2023 Electrocardiographic monitoring [facility] Start: 12-01-2023 Ambulation without limitation [facility] Start: 12-01-2023 Assessment of risk of venous thromboembolism [facility] Start: 12-01-2023 Documentation procedure [facility] Start: 12-01-2023 Insertion of catheter into peripheral vein [facility] Start: 12-01-2023 Providing care according to standard [facility] Start: 12-01-2023 Referral to general surgeon [facility] Start: 12-01-2023 [facility] Start: 12-01-2023 Verification routine [facility] Start: 12-01-2023 Admission procedure [facility] Start: 12-01-2023 Hospital admission, emergency, from emergency room, medical nature [facility] Start: 09-02-2023 Advance Directive Discussion Advance Directive Discussion [facility] Start: 09-02-2023 Behavioral Health Screening Behavioral Health Screening [facility] Start: 07-29-2023 Patient referral [facility] Work Phone: Start: 07-27-2023 Patient discharge [facility] Start: 07-26-2023 Notification of physician [facility] Start: 07-26-2023 Patient education [facility] Start: 07-26-2023 Provision of activity privileges [facility] Start: 07-26-2023 Pulse taking [facility] Start: 07-26-2023 Taking patient vital signs [facility] Start: 07-26-2023 Wound care [facility] Start: 07-26-2023 [facility] Start: 07-26-2023 Ultrasonography of breast Breast Limited Unilateral [facility] Start: 07-26-2023 US Breast limited [facility] Start: 07-26-2023 Referral to security professionals [facility] Start: 07-26-2023 Admission procedure [facility] Start: 07-25-2023 End: 07-26-2023 Measuring intake and output [facility] Start: 07-25-2023 End: 07-26-2023 Providing care according to standard [facility] Start: 07-25-2023 Application of intermittent pneumatic compression device [facility] Start: 07-25-2023 Oxygen therapy [facility] Start: 07-25-2023 Tobacco use cessation education [facility] Start: 07-25-2023 Provision of activity privileges [facility] Start: 07-25-2023 Assessment of risk of venous thromboembolism [facility] Start: 07-25-2023 End: 07-26-2023 Insertion of catheter into peripheral vein [facility] Start: 07-25-2023 End: 07-25-2023 [facility] Start: 07-25-2023 Following clinical pathway protocol [facility] Start: 07-25-2023 Partial thromboplastin time, activated [facility] Start: 07-25-2023 Prothrombin time [facility] Start: 07-25-2023 Hospital admission, emergency, from emergency room, medical nature [facility] Start: 07-25-2023 End: 07-26-2023 [facility] Start: 05-03-2023 Covid-19 Vaccine ( season) Covid-19 Vaccine ( season) [facility] Start: 03-03-2021 Hepatitis B surface antibody level LDL Cholesterol [facility] Start: 2018 Pneumococcal Vaccine: 65+ (1 of 1 - PCV) Pneumococcal Vaccine: 65+ (1 of 1 - PCV) [facility] Start: 2018 Screening for osteoporosis Bone Density Screening [facility] Start: 2013 RSV Vaccine (1 - 1-dose 60+ series) RSV Vaccine (1 - 1-dose 60+ series) [facility] Start: 2003 Pneumococcal Vaccine: 50+ (1 of 1 - PCV) Pneumococcal Vaccine: 50+ (1 of 1 - PCV) [facility] Start: 2003 Shingrix Vaccine (1 of 2) Shingrix Vaccine (1 of 2) [facility] Start: 1998 Screening for malignant neoplasm of colon [facility] Start: 1993 Screening for malignant neoplasm of breast Mammogram Screening [facility] Start: 1972 Urine microalbumin profile DTaP,Tdap,Td Vaccine (1 - Tdap) [facility] Start: 1971 Annual PCP Team Chronic Disease Visit Annual PCP Team Chronic Disease Visit [facility] Start: 1971 Anxiety Screening Anxiety Screening [facility] Start: 1971 BP Controlled (<130/80) BP Controlled (<130/80) [facility] Start: 1971 Depression Screening Depression Screening [facility] Start: 1971 Hepatitis C screening Hepatitis C Screening [facility] Start: 1959 Pneumococcal Vaccine: 65+ (1 of 2 - PCV) Pneumococcal Vaccine: 65+ (1 of 2 - PCV) [facility] Blood ammonia measurement [facility] CT Abdomen and Pelvi s W contrast IV CT ABD/PEL W IVCON Radiology Routine Duodenal ulcer with hemorrhage 03/06/2024 12:15 PM EDT [facility] Work Phone: End: 07-20-2025 CT Head WO contrast CT BRAIN WO IVCON Radiology Routine SDH (subdural hematoma) (HCC) 1 Occurrences starting 06/20/2024 until 07/20/2025 [facility] Work Phone: Comment on above: 1 Occurrences starting 06/20/2024 until 07/20/2025 Cytoplasmic ANCA Screen [facility] Erythrocyte mean cor puscular volume determination [facility] Erythrocyte mean cor puscular volume determination [facility] Erythrocyte sediment ation rate [facility] Ferritin [Mass/volum e] in Serum or Plasma [facility] Folic acid measurement, RBC [facility] Hematocrit [Volume F raction] of Blood [facility] Hematocrit [Volume F raction] of Blood [facility] Hemoglobin [Mass/vol ume] in Blood [facility] Hemoglobin [Mass/vol ume] in Blood [facility] INR in Blood by Coag ulation assay [facility] Iron [Mass/mass] in Unspecified specimen [facility] Leukocytes [#/volume ] in Blood [facility] Leukocytes [#/volume ] in Blood [facility] Magnesium measurement [facility] Mean corpuscular hem oglobin concentration determination [facility] Mean corpuscular hem oglobin concentration determination [facility] Mean corpuscular hem oglobin determination [facility] Mean corpuscular hem oglobin determination [facility] MR Brain WO [facility] MR Cervical spine [facility] Neutrophil count [facility] Neutrophil count [facility] Neutrophil percent differential count [facility] Neutrophil percent differential count [facility] Patient referral [facility] Work Phone: Platelets [#/volume] in Blood [facility] Platelets [#/volume] in Blood [facility] Red blood cell count [facility] Red blood cell count [facility] Red cell distributio n width determination [facility] Red cell distributio n width determination [facility] SURGICAL PATHOLOGY SURGICAL PATH OLOGY Lab Routine Duodenal ulcer with hemorrhage Release Upon Ordering for 1 Occurrences starting 03/23/2024 [facility] Work Phone: Comment on above: Release Upon Ordering for 1 Occurrences starting 03/23/2024 Thiamine measurement [facility] Thyroid stimulating hormone measurement [facility] Vitamin B12 measurement [facility] Vitamin B6 measurement [facility] Vitamin D, 1,25-dihy droxy measurement [facility] Immunizations Immunization Date Immunization Notes Care Provider Anni nicolas 06-15-2024 Hepatitis B vaccine (recombinant), CpG adjuvanted Becca Garcia PA-C Work Phone: [facility] 05-11-2024 Hepatitis B vaccine (recombinant), CpG adjuvanted Becca Garcia PA-C Work Phone: [facility] Payers Date Payer Category Payer Unknown [id number] 2024 Medicare (Managed Care) [employer] H[employer] [id number] 2024 Medicaid [id number] 2024 Self-pay [id number] 2023 Unknown [facility] [employer] MEDICARE ADVANTAGE O [id number] 2023-Present [phone] [address] [place] [address] [facility] [id number] 2023 Medicare [id number] 1955 Unknown [id number]. 1244 1955 Unknown [id number] .[id number]. 124 Medicare [id number] Unknown [id number] Unknown [id number] 2.16.840.1.812112.3.579.2. 462 Unknown [id number] 2.16.840.1.350740.3.579.2. 462 Unknown [id number] 2.16.840.1.338614.3.579.2. 462 Unknown [id number] 2.16.840.1.636659.3.579.2. 462 Unknown [id number] 2.840.1.165970.3.579.2. 462 Unknown [id number] 2.840.1.992553.3.579.2. 462 Unknown [id number] 2.840.1.574071.3.579.2. 462 Unknown [id number] 2.840.1.206320.3.579.2. 462 Unknown [id number] 2.840.1.521192.3.579.2. 462 Unknown [id number] 2.840.1.601194.3.579.2. 462 Unknown [id number] 2.840.1.225498.3.579.2. 462 Unknown [id number] 2.840.1.123535.3.579.2. 462 Unknown [id number] 2.840.1.135628.3.579.2. 462 Unknown [id number] 2.840.1.758228.3.579.2. 462 Unknown [id number] 2.840.1.432692.3.579.2. 462 Unknown [id number] 2.840.1.095302.3.579.2. 462 Unknown [id number] 2.16.840.1.677598.3.579.2. 462 Unknown [id number] 2.840.1.351126.3.579.2. 462 Unknown [id number] 2.840.1.289209.3.579.2. 462 Unknown [id number] 2.16.840.1.146461.3.579.2. 462 Unknown [id number] 2..840.1.441982.3.579.2. 462 Unknown [id number] 2.16.840.1.794133.3.579.2. 462 Unknown [id number] 2.840.1.376913.3.579.2. 462 Social History Date Type Detail Facility Start: 09-22-2021 End: 12-01-2023 Tobacco smoking status TXIS Unknown if ever smoked [facility] Start: 1955 Sex Assigned At Female [facility] Start: 02-19-2024 End: 07-24-2024 Tobacco smoking status NHIS Never smoked tobacco [facility] Start: 02-19-2024 Tobacco use and exposure Smokeless tobacco non-user [facility] Start: 02-19-2024 End: 04-20-2025 Alcohol intake Ex-drinker (finding) [facility] Start: 02-19-2024 End: 02-25-2024 History of Social function [facility] Start: 02-19-2024 End: 02-25-2024 Tobacco use panel [facility] Start: 12-18-2023 National Score (1-100), lower number is lower risk 96 [facility] Start: 1955 Sex Assigned At Not on file [facility] Start: 12-15-2024 Sex Female (finding) [facility] NEGATED: Highlighted row [facility] Goals Date Patient Goal Desired Activity /State Functional Status Date Assessment Result Facility 06-24-2024 Are you deaf, or do you have serious difficulty hearing No 06/24/2024 3:21 PM Marisela Thompson RN No [facility] 06-24-2024 Are you blind, or do you have serious difficulty seeing, even when wearing glasses No 06/24/2024 3:21 PM Marisela Thompson RN No [facility] 06-24-2024 Do you have serious difficulty walking or climbing stairs Yes 06/24/2024 3:21 PM Marisela Thompson RN Yes [facility] 06-24-2024 Do you have difficul ty dressing or bathing Yes 06/24/2024 3:21 PM Marisela Thompson RN Yes [facility] 06-24-2024 Because of a physica l, mental, or emotional condition, do you have difficulty doing errands alone such as visiting a physician's office or shopping Yes 06/24/2024 3:21 PM Marisela Thompson RN Yes [facility] 12-03-2023 Functional status Bathroom Privilege [facility] Work Phone: 07-27-2023 Functional status Ambulates;Bath room Privilege [facility] Work Phone: Mental Status Date Assessment Result Facility 06-24-2024 Because of a physica l, mental, or emotional condition, do you have serious difficulty concentrating, remembering, or making decisions No 06/24/2024 3:21 PM Marisela Thompson RN No [facility] 12-02-2023 Cognitive function Voice/Name [facility] Work Phone: 07-27-2023 Cognitive function Awake;Alert;A ppropriate; Follows Commands [facility] Work Phone: 07-27-2023 Cognitive function Voice/Name [facility] Work Phone: 07-25-2023 Cognitive function Voice/Name [facility] Work Phone: Clinical Notes 07-25-2023 to 05-17-2025 Note Date & Type Note Facility 05-17-2025 Evaluation note Diagnosis Onset Date Resolution Abnormal gait acute May 032024 9:05am Anemia acute May 9:05am Dementia acute May 9:05am Neck pain acute May 9:05am Chronic intracranial subdural hematoma chronic May 9:05am [facility] Work Phone: 1(581) 266-264308-28-2025 Telephone encounter Note* Telephone Encounter - Jazzy Arciniega LPN - 04/29/2025 2:51 PM EDT I called and spoke to Hope, patient's nurse at [facility]. Patient is scheduled to see nephrology in early June. She also has a CBC drawn every 28 days; Hope will fax the results in July (3 month CBC). Jazzy Arciniega LPN [facility]08-28-2025 Miscellaneous Notes* Telephone Encounter - Jazzy Arciniega LPN - 04/29/2025 2:51 PM EDT I called and spoke to Hope, patient's nurse at [facility]. Patient is scheduled to see [...] stability. (Orders entered) Pt currently resides in [facility]. I attempted to reach spouse number rang busy. No answeron daughter Jeanette's phone (she was present for appt) Case and labs reviewed with Dr Vivas. Sultana Garcia APRN.HOSPICE MASSAGE THERAPIST documented in this encounterVeter[facility]08-28-2025 Telephone encounter Note * Telephone Encounter - [...] stability. (Orders entered) Pt currently resides in [facility]. I attempted to reach spouse number rang busy. No answeron daughter Jeanette's phone (she was present for appt) Case and labs reviewed with Dr Vivas. Sultana Garcia APRN.HOSPICE MASSAGE THERAPIST [facility]08-21-2025 Telephone encounter Note* Telephone Encounter - Radha Nichols LPN - 04/22/2025 11:06 AM EDT Labs faxed as directed. Radha Nichols LPN [facility]08-21-2025 Miscellaneous Notes* Telephone Encounter - Radha Nichols LPN - 04/22/2025 11:06 AM EDT Labs faxed as directed. Radha Nichols LPN * Telephone Encounter - Yazmin Medel - 04/22/2025 10:24 AM EDT Please fax 04/20 lab results to [facility] at [phone] documented in this encounterVeterans Health Administration08-21-2025 Telephone encounter Note * Telephone Encounter - Yazmin Medel - 04/22/2025 10:24 AM EDT Please fax 04/20 lab results to [facility] at [phone] [facility] Work Phone: 1(834) 571-228308-19-2025 Instructions* Patient Instructions* Sultana Garcia - 04/20/2025 2:09 PM EDT Labs today Follow up pending labs for possible IV iron and aranesp injection documented in this encounterVeterans Health Administration08-19-2025 NoteHNO ID: [id number] Author: SULTANA GARCIA, ? Service: ? Author [...] daughter Jeanette as a referral from her director multimedia for management of anemia. She is a poor historian, rather tangential. Currently resides in a half-way facility since last year. Per chart review [...] daily at bedtime. sodium phosphate,mono-dibasic (FLEET ENEMA [place]) 1 suppository by RECTAL route as needed. [...] bedtime. (Patient not taking (more content not included)...[facility]08-19-2025 History of Present illness Narrative* Sultana Garcia - 04/20/2025 1:06 PM EDT Progress Note Zahida Beltre 1955 Encounter date: 04/20/2025 HPI: Zahida Beltre is a 69 year old female with extensive PMH of Kidney failure hx of dialysis for about 6 - 8 months, CAD, subdural hematoma, HTN, Chronic anemia. She presents today with her daughter Jeanette as a referral from her director multimedia for management of anemia. She is a poor historian, rather tangential. Currently resides in a half-way facility since last year. Per chart review [...] daily at bedtime. sodium phosphate,mono-dibasic (FLEET ENEMA [place]) 1 suppository by RECTAL route as needed. [...] as a new anemia referral by her director multimedia Dr Marie Anemia, chronic - likely multifactorial [...] which included preparing to see the patient, shrg-wu-rhcn patient care, completing clinical documentation, obtaining and/or [...] Drug use: Not Currently documented in this encounterVeterans Health Administration11-20-2024 [facility]10-21-20[facility] History of Present illness Narrative* Renita Knott APRN.HOSPICE MASSAGE THERAPIST - 06/22/2024 3:43 PM EDT [facility] Outpatient Parenteral Antimicrobial Therapy (OPAT) Start Form Patient Info Patient MRN Patient Name Address Date of [id number] Kary Haddad [address] [facility] [address] 1955 Start Date 06/22/2024 Physician Group Cc_phi [...] Treatment Course Kee Singh III, MD Address [address] [place] [address] documented in this encounterVeterans Health Administration07-22-2024 History and physical note * Noemy Jaramillo APRN.HOSPICE MASSAGE THERAPIST - 03/23/2024 12:25 PM EDT HISTORY AND [...] Hemorrhage Pre-Op Examination Coronary Artery Disease Involving [place] Coronary Artery of [place] Heart Without Angina Pectoris Htn (Hypertension) Mixed Hyperlipidemia Subjective CHIEF COMPLAINT: Preoperative Examination HPI: Patient present to [facility] for the above procedure. Patient here for routine Upper GI Endoscopy screening. Patient had an EGD in December in [place]. This demonstrated an adrenal nodule that was [...] CP and palpitations. +HTN +HLD +hx of MS +CAD GI: See HPI. : Denies dysuria. [...] Continue as prescribed. 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 Current Assessment & Plan MS in 07/2023. No cardiac stents. Does not follow with cardiology. Managed by PCP. Patient has all medical care in [place]- unable to access any cardiac imaging through [facility] or Care Everywhere. Gastrointestinal Duodenal ulcer [...] which included preparing to see the patient, litu-yq-eger patient care, completing clinical documentation, and performing a medically appropriate examination. Instructions Given to Patient: Patient given verbal preop instructions and voices comprehension and compliance. SIGNATURE: Noemy Jaramillo APRN.CNP PATIENT NAME: Kary Haddad DATE: March 23, 2024 TIME: 10:48 AM PAGER/CONTACT #: [facility]07-22-2024 History and physical note* Noemy Jaramillo APRN.CNP [...] Hemorrhage Pre-Op Examination Coronary Artery Disease Involving [place] Coronary Artery of [place] Heart Without Angina Pectoris Htn (Hypertension) Mixed Hyperlipidemia Subjective CHIEF COMPLAINT: Preoperative Examination HPI: Patient present to [facility] for the above procedure. Patient here for routine Upper GI Endoscopy screening. Patient had an EGD in December in [place]. This demonstrated an adrenal nodule that was [...] CP and palpitations. +HTN +HLD +hx of MS +CAD GI: See HPI. : Denies dysuria. [...] Continue as prescribed. 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 Current Assessment & Plan MS in 07/2023. No cardiac stents. Does not follow with cardiology. Managed by PCP. Patient has all medical care in [place]- unable to access any cardiac imaging through [facility] or Care Everywhere. Gastrointestinal Duodenal ulcer [...] which included preparing to see the patient, gfwt-qh-ixjy patient care, completing clinical documentation, and performing a medically appropriate examination. Instructions Given to Patient: Patient given verbal preop instructions and voices comprehension and compliance. SIGNATURE: Noemy Jaramillo APRN.CNP PATIENT NAME: Kary Haddad DATE: March 23, 2024 TIME: 10:48 AM PAGER/CONTACT #: documented in this encounterVeterans Health Administration07-05-2024 History of Present illness Narrative* Didi Merrill [...] PATIENT PRESENTS WITH AN IMPLANTABLE OR ATTACHED GENERAL PRACTITIONER: No ALLERGIES: Reviewed and unchanged CONTRAST ALLERGY: [...] 2024 TIME: 4:12 PM documented in this encounterVeterans Health Administration04-02-2024 Consult note Author Bhaskar Grimes [facility] December 03, 2023 10:02am Note Date/Time December 03, 2023 10:0 2am [facility] Medical Records Department [address] [place] [address] Counseling Note - Pharmacy 12/03/23 1002 MR#: [id number] Acct: [id number] Name: KARY HADDAD Rep #:[id number] : 1955 68 From: Bhaskar Grimes PCP: Dr. Awa Hargrove, DO Status:ADM IN Y Location: [place] [address] Pharmacy [facility] Service has performed discharge medication reconciliation [...] <Electronically signed by Bhaskar martínez> Date _ Bhsakar Grimes Cosigner Signature (if applicable): CC: ~ Signed [facility] Work Phone: 1(580) 475-652104-02-2024 Discharge summary [facility] December 03, 2023 8:59am Note Date/Time December 03, 2023 8:56 am [facility] Medical Records Department [address] [place], [place] [address] [place] [address] Discharge Summary 12/03/23 0854 MR#: [id number] Acct: [id number] Name: KARY HADDAD Rep #:[id number] : 1955 68 From: Ronald Lowe MD PCP: Dr. Awa Hargrove, Status:ADM IN Location: [place] [address] Providers Date of Admission: 12/01/23 Date of Discharge: 12/03/23 Primary Care Physician: Dr. Awa Hargrove, Consultations 12/01/23 16:24 Consult: General Surgery Routine [...] % (Auto) 57.9, Lymph % (Auto) 26.7, Gooding % (Auto) 9.9, Eos % (Auto) 4.4, [...] Self Care Charges/Coding Visit Charges Inpatient E&M: 00035 Disch Hosp >30min 12/03/23 0859 <Electronically signed by Ronald Lowe MD> Cosigner Signature (if applicable): CC: Dr. Ronald Lowe MD; Dr. Awa Hargrove DO~ Signed [facility] Work Phone: 1(373) 445-535504-02-2024 Progress note Author Jules Hudson [facility] December 03, 2023 7:00am Note Date/Time December 03, 2023 7:01 am [facility] Medical Records Department [address] [place] [address] Progress Note - Surgery 12/03/23 0659 MR#: [id number] Acct: [id number] Name: KARY HADDAD Rep #:[id number] : 1955 68 From: Jules pope MD PCP: Dr. Awa Hargrove DO Status:ADM IN Location: [place] [address]1 Subjective Subjective The patient reported that she [...] % (Auto) 57.9, Lymph % (Auto) 26.7, Gooding % (Auto) 9.9, Eos % (Auto) 4.4, [...] to tertiary care. Jules Hudson MD Pager: [facility] [address], [address] [place] [address] Office: 12/03/23 0700 <Electronically signed by Jules Hudson MD> Cosigner Signature (if applicable): CC: ~ Signed [facility] Work Phone: 1(788) 602-123104-01-2024 Progress note Author Ronald Lowe [facility] December 02, 2023 2:56pm Note Date/Time December 02, 2023 9:06 am [facility] Medical Records Department [address] [place] [address] Progress Note - Hospitalist 12/02/23900 MR#: [id number] Acct: [id number] Name: KARY HADDAD Rep #:[id number] : 1955 68 From: Ronald Lowe MD PCP: Dr. Awa Hargrove, DO Status:ADM IN Location: [facility] [place]-2 Reason for Visit Reason for Visit: Diagnoses [...] 71.5 H, Lymph % (Auto) 16.6 L, Gooding % (Auto) 8.4, Eos % (Auto) 2.2, [...] % (Auto) Cancelled, Lymph % (Auto) Cancelled, Gooding % (Auto) Cancelled, Eos % (Auto) Cancelled, [...] Drop Cells Cancelled, Ovalocytes Cancelled, Stomatocytes Cancelled, [place] Bodies Cancelled, Kervin Cells Cancelled, Bite Cells [...] % (Auto) 59.5, Lymph % (Auto) 25.7, Gooding % (Auto) 9.6, Eos % (Auto) 3.8, [...] 12:39 EDT Reading Location ID and State: [address] [place] [address] , Service support , Chest X-Ray 12/01/23 [...] 50 Minutes Charges/Coding Visit Charges Inpatient E&M: 54376 Subs Hosp L3 12/02/23 1456 <Electronically signed by Ronald Lowe MD> Cosigner Signature (if applicable): CC: ~ Signed [facility] Work Phone: 1(315) 538-812104-01-2024 Progress note Author Julesvictoria Hudson [facility] December 02, 2023 11:37am Note Date/Time December 02, 2023 11:3 7am [facility] Medical Records Department [address] [place] [address] Progress Note 12/02/23 1136 MR#: [id number] Acct: [id number] Name: KARY HADDAD Rep #:[id number] : 1955 68 From: Jules pope MD PCP: Dr. Awa Hargrove, DO Status:ADM IN Location: [facility] [place]-0 Progress Note I performed an EGD on [...] Carafate. Pathology pending. Jules Hudson MD Pager: [facility] [address] [place] [address], [address] [place] [address] Office: 12/02/23 1132 <Electronically signed by Jules Hudson MD> Jules Hudson MD Cosigner Signature (if applicable): CC: ~ Signed [facility] Work Phone: 1(800) 723-976404-01-2024 Procedure [facility] 12-02-2023 Procedure [facility]04-01-2024 Progress note Author Jules Hudson [facility] December 02, 2023 7:12am Note Date/Time December 02, 2023 7:12 am [facility] Medical Records Department [address] [place] [address] Progress Note - Surgery 12/02/2311 MR#: [id number] Acct: [id number] Name: KARY HADDAD Rell Rep #:[id number] : 1955 68 From: Jules pope MD PCP: Dr. Awa Hargrove, DO Status:ADM IN Location: [place] [address] Subjective Subjective Patient no complaints overnight and [...] 71.5 H, Lymph % (Auto) 16.6 L, Gooding % (Auto) 8.4, Eos % (Auto) 2.2, [...] % (Auto) Cancelled, Lymph % (Auto) Cancelled, Gooding % (Auto) Cancelled, Eos % (Auto) Cancelled, [...] Drop Cells Cancelled, Ovalocytes Cancelled, Stomatocytes Cancelled, [place] Bodies Cancelled, [place] Cells Cancelled, Bite Cells Cancelled, Crenated Cell [...] % (Auto) 59.5, Lymph % (Auto) 25.7, Gooding % (Auto) 9.6, Eos % (Auto) 3.8, [...] Signed: Jeremie Hernandez MD at 14:50 EDT Reading Location ID and State: 948 / [employer] , Service support , Physical Exam Const oriented x3 and [...] the CT scan. Jules Hudson MD Pager: [facility] [address], [address] [place] [address] Office: 12/02/23 0712 <Electronically signed by Jules Hudson MD> Cosigner Signature (if applicable): CC: ~ Signed [facility] Work Phone: 1(498) 611-802803-31-2024 History and physical note Author Phillip Kingsley [facility] December 01, 2023 3:13pm Note Date/Time December 01, 2023 3:1 2pm [facility] Medical Records Department [address] [place] [address] H&P Exam - Hospitalist 12/01/23 1507 MR#: [id number] Acct: [id number] Name: KARY HADDAD Rep #:[id number] : 1955 68 From: Phillip Kingsley DO PCP: Dr. Awa Hargrove DO Status:ADM PING Location: [facility] AA563-3 HPI - General General Date of Admission: [...] plan is for endoscopy on December 01. [facility] Medical History (Updated 12/01/23 @ 15:10 [...] 71.5 H, Lymph % (Auto) 16.6 L, Gooding % (Auto) 8.4, Eos % (Auto) 2.2, [...] with SCDs Charges/Coding Visit Charges Inpatient E&M: 76546 Init Hosp L3 12/01/23 1513 <Electronically signed by Phillip Kingsley DO> Cosigner Signature (if applicable): CC: Dr. Phillip Kingsley DO; Dr. Awa Hargrove DO~ Signed [facility] Work Phone: 1(603) 848-629903-31-2024 Discharge summary Author Raisa Calhoun [facility] December 01, 2023 2:35pm Note Date/Time December 01, 2023 10: 27am [facility] Medical Records Department [address] [place] [address] Emergency Department Summary 12/01/23 MR#: [id number] Acct: [id number] Name: KARY HADDAD Rep #:[id number] : 1955 68 From: Raisa Calhoun MD [...] colonoscopies, 1 of which showed some polyps. [facility] Medical History (Updated 12/01/23 @ 14:24 [...] 71.5 H Lymph % (Auto) 16.6 L Gooding % (Auto) 8.4 Eos % (Auto) 2.2 [...] bpm with no evidence of ischemia. Dr. Hudosn did ultimately present to the emergency room [...] Leukocytosis, Duodenal mass Disposition Disposition: Acute Care [facility] What to do if you have Problems For any increased pain, shortness of breath, bleeding, nausea or vomiting, chestpain, or any unexpected problems, contact your Primary Care Provider. Call [facility] ([phone]) or report to the closest Emergency Room. Call 911 if necessary. 12/01/23 1435 <Electronically signed by Raisa Calhoun MD> Cosigner Signature (if applicable): CC: Dr. Awa Hargrove, ~ Signed [facility] Work Phone: 1(107) 157-719103-31-2024 Consult note Author Jules Hudson [facility] December 01, 2023 2:20pm Note Date/Time December 01, 2023 2:2 0pm [facility] Medical Records Department [address] [place] [address] Consultation - Surgical 12/01/23 1416 MR#: [id number] Acct: [id number] Name: KARY HADDAD Rep #:[id number] : 1955 68 From: Jules pope MD [...] proceed with procedure. Jules Hudson MD Pager: [facility] [address] [place] [address] [address] [place] [address] Office: HPI Consult Data Date of Consult: [...] or vomiting. She denies fevers or chills. [facility] Medical History (Updated 12/01/23 @ 14:18 [...] 71.5 H, Lymph % (Auto) 16.6 L, Gooding % (Auto) 8.4, Eos % (Auto) 2.2, [...] applicable): CC: Dr. Awa Hargrove, DO~ Signed [facility] Work Phone: 1([phone]) 878-267803-31-2024 Discharge summary Author Raisa Calhoun [facility] December 01, 2023 2:35pm Note Date/Time December 01, 2023 10: 27am [facility] Medical Records Department [address] [place] [address] Emergency Department Summary 12/01/23 MR#: [id number] Acct: [id number] Name: KARY HADDAD Rep #:[id number] : 1955 68 From: Raisa Calhoun MD [...] colonoscopies, 1 of which showed some polyps. [facility] Medical History (Updated 12/01/23 @ 14:24 [...] 71.5 H Lymph % (Auto) 16.6 L Gooding % (Auto) 8.4 Eos % (Auto) 2.2 [...] Duodenal mass Disposition Disposition: Acute Care Hospital [facility] What to do if you have Problems For any increased pain, shortness of breath, bleeding, nausea or vomiting, chestpain, or any unexpected problems, contact your Primary Care Provider. Call [facility] ([phone]) or report to the closest Emergency Room. Call 911 if necessary. 12/01/23 1435 <Electronically signed by Raisa Calhoun MD> Cosigner Signature (if applicable): CC: Dr. Awa Hargrove, ~ Signed [facility] Work Phone: 1(873) 540-542601-15-2024 Procedure [facility] 07-27-2023 Discharge summary Author Ronald Lowe [facility] July 27, 2023 10:37am Note Date/Time July 27, 2023 10:32am [facility] Medical Records Department [address] [place] [address] Discharge Summary 07/27/23 1029 MR#: [id number] Acct: [id number] Name: KARY HADDAD Rep #:[id number] : 1955 68 From: Ronald Lowe MD PCP: Dr. Awa Hargrove DO Status:ADM IN Location: [place] [address] Providers Date of Admission: 07/26/23 Date of [...] % (Auto) 65.5, Lymph % (Auto) 19.7, Gooding % (Auto) 10.8 H, Eos % (Auto) [...] Shantel at discharge?: Yes Done w/ Acute MS measure.: Yes Documented LVEF (%): 50 Discharge [...] Self Care Charges/Coding Visit Charges Inpatient E&M: 78188 Disch Hosp >30min 07/27/23 1037 <Electronically signed by Ronald Lowe MD> Cosigner Signature (if applicable): CC: Dr. Ronald Lowe MD; Dr. Awa Hargrove DO~ Signed [facility] Work Phone: 1(127) 560-555111-24-2023 Progress note Author Ronald Lowe [facility] July 26, 2023 1:39pm Note Date/Time July 26, 2023 8:07am [facility] Medical Records Department [address] [place] [address] Progress Note - Hospitalist 07/26/23 0759 MR#: [id number] Acct: [id number] Name: KARY HADDAD Rep #:[id number] : 1955 68 From: Ronald Lowe MD PCP: Dr. Awa Hargrove DO Status:ADM IN Location: [place] [address]- Reason for Visit Reason for Visit: Diagnoses [...] 88.1 H, Lymph % (Auto) 5.4 L, Gooding % (Auto) 5.4, Eos % (Auto) 0.1, [...] (Auto) 69.2, Lymph % (Auto) 16.6 L, Gooding % (Auto) 12.2 H, Eos % (Auto) [...] 52 Minutes Charges/Coding Visit Charges Inpatient E&M: 16222 Subs Hosp L3 07/26/23 5799 <Electronically signed by Ronald Lowe MD> Cosigner Signature (if applicable): CC: ~ Signed [facility] Work Phone: 1(112) 476-830611-24-2023 Progress note Author Zelalem David [facility] July 26, 2023 11:37am Note Date/Time July 26, 2023 11:37am [facility] Medical Records Department [address] [facility] [place] [address] Progress Note 07/26/23 1136 MR#: [id number] Acct: [id number] Name: KARY HADDAD Rep #:[id number] : 1955 68 From: Zelalem Hernandez MD PCP: Dr. Awa Hargrove, DO Status:ADM IN Location: [place] [address] Progress Note Mild proximal RCA and mid LAD disease. Chest pain and troponin elevation likelysecondary to severe uncontrolled hypertension at presentation. Also consider vasospasm. Recommend adequate control of blood pressure. Start on amlodipine for possible vasospasm. Continue aspirin. Risk factor modification. 07/26/23 1137 <Electronically signed by Zelalem Hernandez MD> Zelalem Hernandez MD Cosigner Signature (if applicable): CC: ~ Signed [facility] Work Phone: 1(647) 776-222711-24-2023 Consult note Author Zelalem [facility] July 26, 2023 9:40am Note Date/Time July 26, 2023 9:40am [facility] Medical Records Department [address] [place] [address] Consultation - Cardiology 07/26/23 0935 MR#: [id number] Acct: [id number] Name: KARY HADDAD Rep #:[id number] : 1955 68 From: Zelalem Hernandez MD PCP: Dr. Awa Hargrove, DO Status:ADM IN Location: [place] [address] Assessment & Plan Assessment/Plan (1) NSTEMI (non-ST [...] denies any previous history of heart disease. [facility] Medical History (Updated 07/25/23 @ 23:18 [...] 88.1 H, Lymph % (Auto) 5.4 L, Gooding % (Auto) 5.4, Eos % (Auto) 0.1, [...] (Auto) 69.2, Lymph % (Auto) 16.6 L, Gooding % (Auto) 12.2 H, Eos % (Auto) [...] 88.1 H, Lymph % (Auto) 5.4 L, Gooding % (Auto) 5.4, Eos % (Auto) 0.1, [...] (Auto) 69.2, Lymph % (Auto) 16.6 L, Gooding % (Auto) 12.2 H, Eos % (Auto) [...] Hernandez MD; Dr. Awa Hargrove DO~ Signed [facility] Work Phone: 1(183) 436-514211-24-2023 History and physical note Author Melecio Torrez [facility] July 25, 2023 11:25pm Note Date/Time July 25, 2023 11:17pm [facility] Medical Records Department [address] [facility] [place] [address] H&P Exam - Hospitalist 07/25/23 2258 MR#: [id number] Acct: [id number] Name: KARY HADDAD Rep #:[id number] : 1955 68 From: Melecio Torrez MD PCP: Dr. Awa Hargrove DO Status:ADM IN Location: [place] [address] HPI - General General Date of Admission: [...] no alcohol use, no other drug abuse. [facility] Medical History (Updated 07/25/23 @ 23:18 [...] in the room throughout the examination as in store representative. The was also present in the room [...] 88.1 H, Lymph % (Auto) 5.4 L, Gooding % (Auto) 5.4, Eos % (Auto) 0.1, [...] acute cardiopulmonary disease. Electronically Signed: Сергей Altman at 18:23 EST , Chest CTA 07/25/23 18:45 IMPRESSION: No demonstrated pulmonary embolism or arterial dissection. Left upper lobe nodule likely a granuloma. Electronically Signed: Сергей DO Agapito at 20:23 EST , ADDENDUM: 07/25/232110 IMPRESSION: [...] for NSTEMI. This was discussed with the security professionals on-call,and the patient was started on heparin, [...] ACS also. Charges/Coding Visit Charges Inpatient E&M: 94161 Init Hosp L2 07/25/232319 <Electronically signed by [...] MD; Dr. Awa Hargrove DO ~* Signed [facility] Work Phone: 1(548) 745-448411-23-2023 Discharge summary Author Valentin Ceballos [facility] July 25, 2023 9:27pm Note Date/Time July 25, 2023 5:26pm [facility] Medical Records Department [address] [place] [address] Emergency Department Summary 07/25/23 MR#: [id number] Acct: [id number] Name: KARY HADDAD Rep #:[id number] : 1955 68 From: Valentin Caicedo PCP: [...] history of Connective tissue disorders (Marfan's Syndrome, Elias Danlos etc). Patient additionally notes several weeks [...] respiratory distress noted Breast: Breast exam performed in store representative Azul 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 Right breast with nipple [...] 88.1 H Lymph % (Auto) 5.4 L Gooding % (Auto) 5.4 Eos % (Auto) 0.1 Baso % (Auto) 0.5 Absolute Neuts (auto) 16.7 H Absolute Lymphs (auto) 1.03 Nucleated RBC % 0 Radiography Diagnostic Testing: Clinical Impression(s) from Imaging Studies Chest X-Ray 07/25/23 17:50 IMPRESSION: No radiographic evidence of acute cardiopulmonary disease. Electronically Signed: Сергей Altman DO at 18:23 EST Reading Location ID and State: [facility] / [place] Tel [phone], Service support , Discharge Plan Triage Chief Complaint: Chest Pain ED Provider: Valentin Ceballos Dx/Rx/DC Orders Primary Care Provider: Awa Hargrove Referrals: Awa Hargrove DO [Primary Care Provider] - What to do if you have Problems For any increased pain, shortness of breath, bleeding, nausea or vomiting, chestpain, or any unexpected problems, contact your Primary Care Provider. Call [facility] ([phone]) or report to the closest Emergency Room. Call 911 if necessary. 07/25/232126 <Electronically signed by Valentin Ceballos DO> Cosigner Signature (if applicable): CC: Dr. Awa Hargrove DO ~ Signed [facility] Work Phone: 1(132) 587-609011-23-2023 Discharge summary Author Valentin Ceballos [facility] July 25, 2023 9:27pm Note Date/Time July 25, 2023 5:26pm [facility] Medical Records Department [address] [place] [address] Emergency Department Summary 07/25/23 MR#: [id number] Acct: [id number] Name: KARY HADDAD Rep #:[id number] : 1955 68 From: Valentin Caicedo PCP: [...] respiratory distress noted Breast: Breast exam performed in store representative Azul RN present. Right breast with nipple retraction, there [...] no anemia or thrombocytopenia BMP without significant Admire normalities, there is no anion gap to [...] 88.1 H Lymph % (Auto) 5.4 L Gooding % (Auto) 5.4 Eos % (Auto) 0.1 Baso % (Auto) 0.5 Absolute Neuts (auto) 16.7 H Absolute Lymphs (auto) 1.03 Nucleated RBC % 0 Radiography Diagnostic Testing: Clinical Impression(s) from Imaging Studies Chest X-Ray 07/25/23 17:50 IMPRESSION: No radiographic evidence of acute cardiopulmonary disease. Electronically Signed: Сергей Altman DO at 18:23 EST Reading Location ID and State: [facility] / [place] Tel [phone], Service support , Discharge Plan Triage Chief Complaint: Chest Pain ED Provider: Valentin Ceballos Dx/Rx/DC Orders Primary Care Provider: Awa Hargrove Referrals: Awa Hargrove DO [Primary Care Provider] - What to do if you have Problems For any increased pain, shortness of breath, bleeding, nausea or vomiting, chestpain, or any unexpected problems, contact your Primary Care Provider. Call [facility] ([phone]) or report to the closest Emergency Room. Call 911 if necessary. 07/25/232126 <Electronically signed by Valentin Ceballos DO> Cosigner Signature (if applicable): CC: Dr. Awa Hargrove DO ~ Signed [facility] Work Phone: Consult note Author Jules Hudson [facility] December 01, 2023 2:20pm Note Date/Time December 01, 2023 2:2 0pm [facility] Medical Records Department [address] [place] [address] Consultation - Surgical 12/01/23 1416 MR#: [id number] Acct: [id number] Name: KARY HADDAD Rep #:[id number] : 1955 68 From: Jules pope MD [...] proceed with procedure. Jules Hudson MD Pager: [facility] [address] [place] [address], [address] [place] [address] Office: HPI Consult Data Date of Consult: [...] or vomiting. She denies fevers or chills. [facility] Medical History (Updated 12/01/23 @ 14:18 [...] 71.5 H, Lymph % (Auto) 16.6 L, Gooding % (Auto) 8.4, Eos % (Auto) 2.2, [...] 12:39 EDT Reading Location ID and State: [facility] / [place] , Service support , 12/01/23 1420 <Electronically signed by Jules Hudson MD> Cosigner Signature (if applicable): CC: Dr. Awa Hargrove, DO~ Signed [facility] Work Phone: Evaluation noteNo assessment information available [facility] Work Phone: Evaluation note* Diagnosis Onset Date Resolution Status Hypertensive emergency without congestive heart failur e acute Infection acute NSTEMI (non-ST elevated myocardial infarction) acute Resistant hypertension acute CKD (chronic kidney disease) chronic [facility] Work Phone: Evaluation note* Diagnosis Onset Date Resolution Status Infection acute CKD (chronic kidney disease) chronic Hypertensive emergency witho ut congestive heart failure resolved NSTEMI (non-ST elevated myocardial infarction) resolved Resistant hypertension resol garima [facility] Work Phone: Evaluation note* Diagnosis Onset Date Resolution Status Appendicolith acute Back pain acute Duodenal mass acute Leukocytosis acute Upper GI bleed acute [facility] Work Phone: Evaluation note* Diagnosis Onset Date Resolution Status Appendicolith acute Back pain acute Duodenal mass acute Duodenal ulcer acute Leukocytosis acute Upper GI bleed acute [facility] Work Phone: Evaluation note* Diagnosis Duodenal ulcer with hemorrhage Chronic or unspecified duodenal ulcer with hemorrhage, without mention of obstruction [facility] Diagnosis Pre-op examination- Primary Preoperative examination, unspecified Duodenal ulcer with hemorrhage Chronic or unspecified duodenal ulcer with hemorrhage, without mention of obstruction Pre-op examination Preoperative examination, unspecified 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 No cardiac stents. Does not follow with cardiology. Managed by PCP. Patient has all medical care in [place]- unable to access any cardiac imaging through [facility] or Care Everywhere. * Assessment & Plan Note - Noemy Jaramillo APRN.CNP - 03/23/2024 10:48 AM EDT Associated Problem(s): Pre-op examination see note for medical conditions which may affect marco-operative course that were addressed at today's visit. 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 Adrenal nodule (HCC) Unspecified disorder of adrenal glands Primary hypertension Unspecified essential hypertension Mixed hyperlipidemia 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 Adrenal nodule (HCC) Unspecified disorder of adrenal glands Mixed hyperlipidemia SDH (subdural hematoma) (HCC)- Primary Subdural hemorrhage 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 Adrenal nodule (HCC) Unspecified disorder of adrenal glands Primary hypertension Unspecified essential hypertension Mixed hyperlipidemia 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 Adrenal nodule (HCC) Unspecified disorder of adrenal glands Mixed hyperlipidemia Anemia, unspecified type- Primary 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 Adrenal nodule (HCC) Unspecified disorder of adrenal glands Primary hypertension Unspecified essential hypertension Mixed hyperlipidemia 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 Adrenal nodule (HCC) Unspecified disorder of adrenal glands Mixed hyperlipidemia 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, not on chronic dialysis (HCC)- Primary [facility] Diagnosis Onset Date Resolution Status Admit Date Anemia acute May 9:05am Dementia acute May 9:05am [facility] Work Phone: History and physical note Author Phillip Kingsley [facility] December 01, 2023 3:13pm Note Date/Time December 01, 2023 3:1 2pm [facility] Medical Records Department [address] [place] [address] H&P Exam - Hospitalist 12/01/23 1507 MR#: [id number] Acct: [id number] Name: KARY HADDAD Rep #:[id number] : 1955 68 From: Phillip Kingsley DO PCP: Dr. Awa Hargrove DO Status:ADM PING Location: [place] [address] HPI - General General Date of Admission: [...] plan is for endoscopy on December 01. [facility] Medical History (Updated 12/01/23 @ 15:10 [...] 71.5 H, Lymph % (Auto) 16.6 L, Gooding % (Auto) 8.4, Eos % (Auto) 2.2, [...] with SCDs Charges/Coding Visit Charges Inpatient E&M: 23761 Init Hosp L3 12/01/23 1513 <Electronically signed by Phillip Kingsley DO> Cosigner Signature (if applicable): CC: Dr. Phillip Kingsley, DO; Dr. Awa Hargrove DO~ Signed [facility] Work Phone: reason for referral (narrative)* Outpatient Procedure (Routine) - Closed Specialty Diagnoses / Procedures Referred By Contac t Referred To Contact [facility] Diagnoses Duodenal ulcer with hemorrhage Procedures EGD DIAGNOSTIC ESOPHAGOGASTRODUODENOSC OPY TRANSORAL DIAGNOSTIC Jules Alvarez MD [address] [place] [address] [address] Referral ID Status Reason Start Date Expiration Date V isits Requested Visits Authorized [id number] Closed Auto-Generate d Referral 02/21/2024 02/20/2025 1 1 [facility]No [facility] for [facility] Work Phone: Reason for visit Narrative* Outpatient Procedure (Routine) - Closed Specialty Diagnoses / Procedures Referred By Contac t Referred To [facility] DISEASE BRISTOL Diagnoses Duodenal ulcer with hemorrhage Procedures EGD DIAGNOSTIC ESOPHAGOGASTRODUODENOSC OPY TRANSORAL DIAGNOSTIC Jules Alvarez MD [address] [place] [address] [address] Referral ID Status Reason Start Date Expiration Date V isits Requested Visits Authorized [id number] Closed Auto-Generate d Referral 02/21/2024 02/20/2025 1 1 [facility] Chief Complaint and Reason for Visit Chief [...] Upper GI bleed Chief Complaint Admit Date [facility] August 27, 2024 5:00am [facility] August 31 5:00am [facility] September 21, 2024 5:00am [facility] November 30, 2024 4 :00am Chief Complaint Admit Date [facility] November 30, 2024 4 :00am [facility] December 02, 2024 5: 00am LABWORK January 13, 2025 5:00a m Chief Complaint Admit Date [facility] February 12, 2025 7: 15am [facility] March 30, 2025 1: 10am [facility] April 06, 2025 4 :00am LABWORK May 04, 2025 5:00am DECLINING MENTAL STATUS May 17, 2025 9:05am Reason for Visit Admit Date Anemia May 17, 2025 9:05am Dementia May 17, 2025 9:05am Chief Complaint Admit Date [facility] February 12, 2025 7: 15am [facility] March 30, 2025 1: 10am [facility] April 06, 2025 4 :00am [...] July 25, 2 023 5:08pm Power of Healthcare Sales Representative No July 25, 2023 5:08pm Advance Directive Response Recorded Date/ Time Living Will No July 25, 2 023 10:10pm Power of Healthcare Sales Representative No July 25, 2023 10:10pm Advance Directive Response Recorded Date/ Time Living Will No December 01, 2023 10:38am Power of Healthcare Sales Representative No November 30 10:38am Advance Directive Response Recorded Date/ Time Living Will No December 01, 2023 3:43pm Power of Healthcare Sales Representative No November 30 3:43pm Date Activated Date [...] CONTRAST MATERIAL Becca Garcia, PAElisabeth [address] [place] [address] [place] [address] Referral ID Status Reason Start Date Expiration Date Visits Requested Visits Authorized [id number] New Request Auto-Generat ed Referral 4 07/20/2025 [...] DO Family Provider Active Dr. Awa Hargrove , DO Primary Care Provider Active Team Status: Active Member Role Status Dates Dr. Awa Hargrove , DO Primary Care Provider Active Dr. Valentin Ceballos DO Emergency Provider Active Dr. Melecio Torrez MD Admit Provider, Attending Prov ider Active Team Status: Inactive Member Role Status Dates Dr. Awa Hargrove , DO Primary Care Provide r, Attending Provider, [...] Dr. Ronald Lowe MD Attending Provider Active Log Chipper Operator Relationship Specialty Start Date End Date Awa Hargrove DO [address] [place] [address] PCP - General Family Medicine 02/19/24 Log Chipper Operator Relationship Specialty Start Date End Date Awa Hargrove DO [address] [place] [address] PCP - General Family Medicine 02/19/24 Log Chipper Operator Relationship Specialty Start Date End Date Awa Hargrove DO [address] [place] [address] PCP - General Family Medicine 02/19/24 Log Chipper Operator Relationship Specialty Start Date End Date Awa Hargrove DO [address] [place] [address] PCP - General Family Medicine 02/19/24 Log Chipper Operator Relationship Specialty Start Date End Date Awa Hargrove DO [address] [place] [address] PCP - General Family Medicine 02/19/24 Log Chipper Operator Relationship Specialty Start Date End Date Awa Hargrove DO [address] [place] [address] PCP - General Family Medicine 02/19/24 Team Status: Active Member Role Status Dates Dr. Awa Hargrove DO Family Provider Active Dr. Phuc Barker MD Primary Care Provider Active Team Status: Inactive Member Role Status Dates Dr. hPuc Barker MD Primary Care Provider Active Start: August 27, 2024 End: August 27, 2024 [facility] Attending Provider Active Start: August [...] January 13, 2025 End: January 13, 2025 Log Chipper Operator Relationship Specialty Start Date End Date Devendra Beverly DO [address] [facility] [place] [address] PCP - General Family Medicine 04/20/25 Team [...] care physician Active Start: June 01, 2025 [facility] Attending physician Active Start: May Source Comments (unrecognize d section and content) In the event this informatio n is protected by the Federal Confidentiality of Alcohol and Drug Abuse Patient Records regulations: The Federal rules restrict any use of the information to criminally investigate or prosecute any alcohol or drug abuse patient.[facility] AdministrationIn the event this information is protected by the Federal Confidentiality of Alcohol and Drug Abuse Patient Records regulations: The Federal rules restrict any use of the information to criminally investigate or prosecute any alcohol or drug abuse patient.[facility] AdministrationIn the event this information is protected by the Federal Confidentiality of Alcohol and Drug Abuse Patient Records regulations: The Federal rules restrict any use of the information to criminally investigate or prosecute any alcohol or drug abuse patient.[facility] AdministrationIn the event this information is protected by the Federal Confidentiality of Alcohol and Drug Abuse Patient Records regulations: The Federal rules restrict any use of the information to criminally investigate or prosecute any alcohol or drug abuse patient.[facility] AdministrationIn the event this information is protected by the Federal Confidentiality of Alcohol and Drug Abuse Patient Records regulations: The Federal rules restrict any use of the information to criminally investigate or prosecute any alcohol or drug abuse patient.[facility] AdministrationIn the event this information is protected by the Federal Confidentiality of Alcohol and Drug Abuse Patient Records regulations: The Federal rules restrict any use of the information to criminally investigate or prosecute any alcohol or drug abuse patient.[facility] AdministrationIn the event this information is protected by the Federal Confidentiality of Alcohol and Drug Abuse Patient Records regulations: The Federal rules restrict any use of the information to criminally investigate or prosecute any alcohol or drug abuse patient.[facility] AdministrationIn the event this information is protected by the Federal Confidentiality of Alcohol and Drug Abuse Patient Records regulations: The Federal rules restrict any use of the information to criminally investigate or prosecute any alcohol or drug abuse patient.[facility] AdministrationIn the event this information is protected by the Federal Confidentiality of Alcohol and Drug Abuse Patient Records regulations: The Federal rules restrict any use of the information to criminally investigate or prosecute any alcohol or drug abuse patient.[facility] Reason for Visit (unrecogniz ed section and content) Specialty Diagnoses / Procedures Referred By Contac t Referred To Contact CT IMAGING Diagnoses Duodenal ulcer with hemorrhage Procedures CT ABD/PEL W IVCON CT ABD & PELVIS W/CONTRAST Visioni, Jules J, MD [address] [place] [address] [place] [address] Referral ID Status Reason Start Date Expiration Date V isits Requested Visits Authorized [id number] Closed Auto-Generate d Referral 02/19/2024 03/20/2025 [address] Specialty Diagnoses / Procedures Referred By Contac t Referred To Contact CT IMAGING Diagnoses Duodenal ulcer with hemorrhage Procedures CT ABD/PEL W IVCON CT ABD & PELVIS W/CONTRAST Jules Alvarez MD [address] [place] [address] [place] [address] Reason Comments CoPat Start Reason Comments Electronic Communication Reason Comments New Patient Evaluation INFORMATION SOURCE (unrecogn ized section and content) DATE CREATED AUTHOR 05/16/2025 [facility] DATE CREATED AUTHOR AUTHOR'S ORGANIZ ATION 06/08/2025 [facility] DATE CREATED AUTHOR AUTHOR'S ORGANIZ ATION 07/16/2025 [facility] FOR RECORDS PERTAINING TO PATIENTS WHO ARE [...] BE BASED ON THE PRIMARY CLINICAL RECORDS. [employer] provides no warranty or guarantee of the accuracy or completeness of information in this document.
[2025-07-27 09:09] LABS: Hematocrit 29.1 % (37-47); Hemoglobin 9.6 g/dL (12.0-15.0); Mean Corp Hgb Conc 33.0 g/dL (32-36); Mean Corpuscular Volume 95.4 fL (81-99); Mean Platelet Vol. 10.8 fl (6.2-12.0); Platelet Count 319 K/mm3 (150-450); RBC Distribution Width CV 12.2 % (11.6-14.6); RBC Distribution Width SD 42.7 fl (35.1-43.9); Red Blood Count 3.05 M/mm3 (4.2-5.4); White Blood Count 10.9 K/mm3 (4.4-11.0)
[2025-07-27 09:33] LABS: AST(SGOT) 18 U/L (<=31); Alanine Aminotransfer ALT/SGPT 15 U/L (<=34); Albumin, Serum 4.5 g/dL (3.4-4.8); Alkaline Phosphatase 90 U/L (35-104); Anion Gap 17 (5-15); BUN 59 mg/dL (4-19); BUN/Creat Ratio 12.6 RATIO (10-20); Calcium,Total 9.1 mg/dL (7.6-11.0); Carbon Dioxide 20.4 mmol/L (21.0-32.0); Chloride 104 mmol/L (98-108); Globulin 2.4 g/dL (2.2-4.2); Glucose 108 mg/dL (70-99); Potassium 3.8 mmol/L (3.3-5.1)
== END ==
LOC: OLS.SW 04:00
PROVIDERS: PCP Family Medicine; Visit Provider Internal Medicine Nephrology
DX: G80.9 Cerebral palsy, unspecified (principal); I48.0 Paroxysmal atrial fibrillation
CPT/HCPCS: 36415; 80053; 84100; 85027

== ENCOUNTER → 2025-08-24 05:00 | Outpatient (REF) | payer MEDICARE, MEDICAID, SELFPAY ==
--- OUTSIDE RECORDS SUMMARY | 2025-08-24 04:11 | XMS RPT_ITS | CCD ---
Author Organization [facility] Care Team Providers Care Graduate Nurse Name Role Phone Dr. Awa Hargrove Primary [...] Dr. Awa Hargrove Primary Care Provider [phone] Raisa Calhoun Emergency Provider Dr. Jules Hudson Attending Provider Dr. Claudy Munoz Admit Provider Dr. Claudy Munoz Other Provider Dr. Phillip Kingsley Attending Provider Dr. Jules Hudson Other Provider Dr. Ronald Lowe Attending Provider Unavailable Dr. Ronald Lowe Other Provider Unavailable Malys DO, Awa A Primary Care Provider Mj LOUIS, Dr. Friend Primary Care Provider [facility] Attending Provid er Ayanna Landrum MD, Dr. [...] Chang MD, Dr. Nicole Attending Physician [phone] Caitlyn LOUIS, Dr. Baltazar Attending Physician Caitlyn LOUIS, Dr. Baltazar Referring Provider [facility] Attending Physic cathi Unavailable SULTANA GARCIA [...] Unavailabl e Iris, Bonnie Attending Unavailable Barker, Hpuc Primary Care Unavailable Barker, Phuc Primary Care Unavailable Gudla KRYSTIN, Johana Attending Unavailable Barker, Phuc Primary Care Unavailable [facility], [place] Attending Unavailable Barker, Phuc Primary Care Unavailable Gukathya KRYSTIN, Johana Attending Unavailable Barker, Phuc Primary Care Unavailable [facility], [place] Attending Unavailable Iris, Bonnie Attending Unavailable Devendra Beverly Primary Care Unavailable Iris, Bonnie Referring Unavailable Barker, Phuc Primary Care Unavailable Devendra Fernández Attending Unavailable [facility], [place] Attending Unavailable Barker, Phuc Primary Care Unavailable [...] [AMLODIPINE] Drug Allergy 7 Other: See Comments [facility] (7 sources) Aspartame; Translations: [ASPARTAME] Drug Allergy 5 Other: See Comments [facility] Comment on above: feet & legs (1 source) Aspartame Drug Allergy 5 [facility] Repository Medications Current Medications Medication Drug [...] 2 03/23/2024 03/23/2025 Active polyethylene glycol 3350 41179 mg powder for oral solution (5 sources) [...] 22, 2024 2:09pm take 1 capsule by [facility] once daily at bedtime sertraline 150 mg capsule Take 150 mg by mouth daily at bedtime. Active sodium phosphate,mono-dibasi c (FLEET ENEMA W[place]) (3 sources) sodium phosphate ,mono-dibasic (FLEET ENEMA WV) 1 suppository by RECTAL route as needed. Active vit B comp no.2-dndgq-F-biot in (4 sources) Start: 07-16-2024 Start: 07-16-2024 vit B comp no. 0-nmlny-S-biotin Active 1 {tbl} PO DAILY July 16, [...] Coronary arteriosclerosis; Translations: [Atherosclerotic heart disease of hoopa coronary artery without angina pectoris] Onset: 4 [...] aftercare (4 sources) Drug therapy finding; Translations: [longterm (current) use of anticoagulants] 06-26-2024 Episodic Other aftercare (2 sources) Other buttermaker helper (current) drug therapy; Translations: [Other buttermaker helper (current) drug therapy] Onset: 5 Episodic Other [...] PROT:CRE RATIO 3099 mg/g CRE High 0-200 [facility] Comment on above: Performed By: #### L 501.0900 ####[facility] [address] [place], [address] Protein (U) [Mass/Vol] 132.0 mg/dL High 0.0-12.0 [facility] Comment on above: Performed By: #### L 501.0900 ####[facility] [address] [place], [address] UR CREAT 42.60 mg/dL Normal 28.00-217.0 0 [facility] Comment on above: Performed By: #### L 501.0900 ####[facility] [address] [place], [address] L3410.9992on 07-12-2025 [facility] Misc. Normal [facility] Comment on above: Order Comment: 516.1 25-HYDROXY (D2+D3)[id number] Result Comment: TEST RESULTS [id number] D LCMS D2+D3 25-Hydroxy, Vitamin D 54 ng/mL Reference Range: All Ages: Target levels 30 - 100 25-Hydroxy, Vitamin D-2 17 ng/mL This test was developed and its performance characteristics determined by [facility]. It has not been cleared or approved by the Food and Drug Administration. 25-Hydroxy, Vitamin D-3 37 ng/mL This test was developed and its performance characteristics determined by [facility]. It has not been cleared or approved by the Food and Drug Administration. TESTING PERFORMED AT [employer]. ORIGINAL REPORT ON FILE IN LAB CONTAINS ADDITIONAL TEST SITE INFORMATION. Performed By: #### L 500.3600, L3410.9992, L509.1000, L100.0500 ####[facility] [address] [place], [address] MR/BMS.BVSon 07-12-2025 MR/BMS.BVS Normal [facility] Protein+Creatinine Ratio,Uri neon 07-07-2025 PROT:CRE RATIO Normal 0-200 [facility] Comment on above: Result Comment: JERZY ECTED IN THE WRONG CONTAINER REJECTED BY LAB 07/08/25@0920 CALLED SW AND LEFT MESSAGE WITH NURSE FOR RECOLLECTION Performed By: #### L 501.0900 ####[facility] [address] [place], [address] PROTEIN,UR.RAN. Normal 0.0-12.0 [facility] Comment on above: Result Comment: JERZY ECTED IN THE WRONG CONTAINER REJECTED BY LAB 07/08/25@0920 CALLED SW AND LEFT MESSAGE WITH NURSE FOR RECOLLECTION Performed By: #### L 501.0900 ####[facility] [address] [place], [address] UR CREAT Normal 28.00-217.0 0 [facility] Comment on above: Result Comment: JERZY ECTED IN THE WRONG CONTAINER REJECTED BY LAB 07/08/25@0920 CALLED SW AND LEFT MESSAGE WITH NURSE FOR RECOLLECTION Performed By: #### L 501.0900 ####[facility] [address] [place], [address] CBC-Complete Blood Cnt No Di ffon 07-06-2025 Erythrocyte distribution width (RBC) [Ratio] 12.3 % Normal 11.6-14.6 [facility] Comment on above: Order Comment: 516.1 Performed By: #### L 500.3600, L3410.9992, L509.1000, L100.0500 ####[facility] [address] [place], [address] Hematocrit (Bld) [Volume fraction] 27.2 % Low 37-47 [facility] Comment on above: Order Comment: 516.1 Performed By: #### L 500.3600, L3410.9992, L509.1000, L100.0500 ####[facility] [address] [place], [address] Hemoglobin (Bld) [Mass/Vol] 9.2 g/dL Low 12.0-15.0 [facility] Comment on above: Order Comment: 516.1 Performed By: #### L 500.3600, L3410.9992, L509.1000, L100.0500 ####[facility] [address] [place], [address] MCH (RBC) [Entitic mass] 32.3 pg High 27.0-32.0 [facility] Comment on above: Order Comment: 516.1 Performed By: #### L 500.3600, L3410.9992, L509.1000, L100.0500 ####[facility] [address] [place], [address] MCHC (RBC) [Mass/Vol] 33.8 g/dL Normal 32-36 [facility] Comment on above: Order Comment: 516.1 Performed By: #### L 500.3600, L3410.9992, L509.1000, L100.0500 ####[facility] [address] [place], [address] MCV (RBC) [Entitic vol] 95.4 fL Normal 81-99 [facility] Comment on above: Order Comment: 516.1 Performed By: #### L 500.3600, L3410.9992, L509.1000, L100.0500 ####[facility] [address] [place], [address] Platelet mean volume (Bld) [Entitic vol] 10.8 fL Normal 6.2-12.0 [facility] Comment on above: Order Comment: 516.1 Performed By: #### L 500.3600, L3410.9992, L509.1000, L100.0500 ####[facility] [address] [place], [address] Platelets (Bld) [#/Vol] 297 10*3/uL Normal 150-450 [facility] Comment on above: Order Comment: 516.1 Performed By: #### L 500.3600, L3410.9992, L509.1000, L100.0500 ####[facility] [address] [place], [address] RBC (Bld) [#/Vol] 2.85 10*6/uL Low 4.2-5.4 [facility] Comment on above: Order Comment: 516.1 Performed By: #### L 500.3600, L3410.9992, L509.1000, L100.0500 ####[facility] [address] [place], [address] RDW SD 43.2 fl Normal 35.1-43.9 [facility] Comment on above: Order Comment: 516.1 Performed By: #### L 500.3600, L3410.9992, L509.1000, L100.0500 ####[facility] [address] [place], [address] WBC (Bld) [#/Vol] 10.1 10*3/uL Normal 4.4-11.0 [facility] Comment on above: Order Comment: 516.1 Performed By: #### L 500.3600, L3410.9992, L509.1000, L100.0500 ####[facility] [address] [place], [address] PTHINon 07-06-2025 PTH 212 pg/mL High 11-61 [facility] Comment on above: Order Comment: 516.1 Performed By: #### L 500.3600, L3410.9992, L509.1000, L100.0500 ####[facility] [address] [place], [address] Renal Profileon 07-06-2025 Albumin [Mass/Vol] 4.4 g/dL Normal 3.4-4.8 [facility] Comment on above: Order Comment: 516.1 Performed By: #### L 500.3600, L3410.9992, L509.1000, L100.0500 ####[facility] [address] [place], [address] BUN/CRE 13.8 RATIO Normal 10-20 [facility] Comment on above: Order Comment: 516.1 Performed By: #### L 500.3600, L3410.9992, L509.1000, L100.0500 ####[facility] [address] [place], [address] Calcium [Mass/Vol] 9.3 mg/dL Normal 7.6-11.0 [facility] Comment on above: Order Comment: 516.1 Performed By: #### L 500.3600, L3410.9992, L509.1000, L100.0500 ####[facility] [address] [place], [address] Chloride [Moles/Vol] 107 mmol/L Normal 98-108 [facility] Comment on above: Order Comment: 516.1 Performed By: #### L 500.3600, L3410.9992, L509.1000, L100.0500 ####[facility] [address] [place], [address] CO2 [Moles/Vol] 17.5 mmol/L Low 21.0-32.0 [facility] Comment on above: Order Comment: 516.1 Performed By: #### L 500.3600, L3410.9992, L509.1000, L100.0500 ####[facility] [address] [place], [address] Creatinine [Mass/Vol] 4.61 mg/dL High 0.70-1.20 [facility] Comment on above: Order Comment: 516.1 Performed By: #### L 500.3600, L3410.9992, L509.1000, L100.0500 ####[facility] [address] [place], [address] GAP 17 High 5-15 [facility] Comment on above: Order Comment: 516.1 Performed By: #### L 500.3600, L3410.9992, L509.1000, L100.0500 ####[facility] [address] [place], [address] GFR/1.73 sq M.predicted among non-blacks MDRD (S/P/Bld) [Vol rate/Area] 10 mL/min/{1.73_m2} Low >60 [facility] Comment on above: Order Comment: 516.1 Result Comment: mL/m in/1.73m2 CKD-EPI Creatinine Equation (2020) Performed By: #### L 500.3600, L3410.9992, L509.1000, L100.0500 ####[facility] [address] [place], [address] Glucose [Mass/Vol] 106 mg/dL High 70-99 [facility] Comment on above: Order Comment: 516.1 Performed By: #### L 500.3600, L3410.9992, L509.1000, L100.0500 ####[facility] [address] [place], [address] Phosphate [Mass/Vol] 5.0 mg/dL High 2.7-4.5 [facility] Comment on above: Order Comment: 516.1 Performed By: #### L 500.3600, L3410.9992, L509.1000, L100.0500 ####[facility] [address] [place], [address] Potassium [Moles/Vol] 4.2 mmol/L Normal 3.3-5.1 [facility] Comment on above: Order Comment: 516.1 Performed By: #### L 500.3600, L3410.9992, L509.1000, L100.0500 ####[facility] [address] [place], [address] Sodium [Moles/Vol] 141 mmol/L Normal 133-145 [facility] Comment on above: Order Comment: 516.1 Performed By: #### L 500.3600, L3410.9992, L509.1000, L100.0500 ####[facility] [address] [place], [address] Urea nitrogen [Mass/Vol] 63 mg/dL High 4-19 [facility] Comment on above: Order Comment: 516.1 Performed By: #### L 500.3600, L3410.9992, L509.1000, L100.0500 ####[facility] [address] [place], [address] KEPPRA (LEVETIRACETAM)on KEPPRA 14.8 ug/mL Normal 10.0-40.0 [facility] Comment on above: Order Comment: 516.1 Result Comment: Perf ormed at: BN - [facility] [address] [id number] Director: Rk Petty MD, Phone: [phone] Performed By: #### L 100.0500, L501.2300, L3310.0000, L500.4050 ####[facility] [address] [place], [address] CBC-Complete Blood Cnt No Di ffon 06-29-2025 Erythrocyte distribution width (RBC) [Ratio] 12.1 % Normal 11.6-14.6 [facility] Comment on above: Order Comment: 516.1 Performed By: #### L 100.0500, L501.2300, L3310.0000, L500.4050 ####[facility] [address] [place], [address] Hematocrit (Bld) [Volume fraction] 27.5 % Low 37-47 [facility] Comment on above: Order Comment: 516.1 Performed By: #### L 100.0500, L501.2300, L3310.0000, L500.4050 ####[facility] [address] [place], [address] Hemoglobin (Bld) [Mass/Vol] 9.2 g/dL Low 12.0-15.0 [facility] Comment on above: Order Comment: 516.1 Performed By: #### L 100.0500, L501.2300, L3310.0000, L500.4050 ####[facility] [address] [place], [address] MCH (RBC) [Entitic mass] 31.9 pg Normal 27.0-32.0 [facility] Comment on above: Order Comment: 516.1 Performed By: #### L 100.0500, L501.2300, L3310.0000, L500.4050 ####[facility] [address] [place], [address] MCHC (RBC) [Mass/Vol] 33.5 g/dL Normal 32-36 [facility] Comment on above: Order Comment: 516.1 Performed By: #### L 100.0500, L501.2300, L3310.0000, L500.4050 ####[facility] [address] [place], [address] MCV (RBC) [Entitic vol] 95.5 fL Normal 81-99 [facility] Comment on above: Order Comment: 516.1 Performed By: #### L 100.0500, L501.2300, L3310.0000, L500.4050 ####[facility] [address] [place], [address] Platelet mean volume (Bld) [Entitic vol] 10.6 fL Normal 6.2-12.0 [facility] Comment on above: Order Comment: 516.1 Performed By: #### L 100.0500, L501.2300, L3310.0000, L500.4050 ####[facility] [address] [place], [address] Platelets (Bld) [#/Vol] 306 10*3/uL Normal 150-450 [facility] Comment on above: Order Comment: 516.1 Performed By: #### L 100.0500, L501.2300, L3310.0000, L500.4050 ####[facility] [address] [place], [address] RBC (Bld) [#/Vol] 2.88 10*6/uL Low 4.2-5.4 [facility] Comment on above: Order Comment: 516.1 Performed By: #### L 100.0500, L501.2300, L3310.0000, L500.4050 ####[facility] [address] [place], [address] RDW SD 41.6 fl Normal 35.1-43.9 [facility] Comment on above: Order Comment: 516.1 Performed By: #### L 100.0500, L501.2300, L3310.0000, L500.4050 ####[facility] [address] [place], [address] WBC (Bld) [#/Vol] 9.5 10*3/uL Normal 4.4-11.0 [facility] Comment on above: Order Comment: 516.1 Performed By: #### L 100.0500, L501.2300, L3310.0000, L500.4050 ####[facility] [address] [place], [address] Comprehensive Metabolic Prof ilon 06-29-2025 Albumin [Mass/Vol] 4.3 g/dL Normal 3.4-4.8 [facility] Comment on above: Order Comment: 516.1 Performed By: #### L 100.0500, L501.2300, L3310.0000, L500.4050 ####[facility] [address] [place], [address] Albumin/Globulin [Mass ratio] 1.9 {ratio} Normal 0.9-2.4 [facility] Comment on above: Order Comment: 516.1 Performed By: #### L 100.0500, L501.2300, L3310.0000, L500.4050 ####[facility] [address] [place], [address] ALK PHOS 80 U/L Normal 35-104 [facility] Comment on above: Order Comment: 516.1 Performed By: #### L 100.0500, L501.2300, L3310.0000, L500.4050 ####[facility] [address] [place], [address] ALT [Catalytic activity/Vol] 13 U/L Normal <=34 [facility] Comment on above: Order Comment: 516.1 Performed By: #### L 100.0500, L501.2300, L3310.0000, L500.4050 ####[facility] [address] [place], [address] AST [Catalytic activity/Vol] 17 U/L Normal <=31 [facility] Comment on above: Order Comment: 516.1 Performed By: #### L 100.0500, L501.2300, L3310.0000, L500.4050 ####[facility] [address] [place], [address] Bilirubin [Mass/Vol] 0.26 mg/dL Normal 0.00-1.30 [facility] Comment on above: Order Comment: 516.1 Performed By: #### L 100.0500, L501.2300, L3310.0000, L500.4050 ####[facility] [address] [place], [address] BUN/CRE 11.8 RATIO Normal 10-20 [facility] Comment on above: Order Comment: 516.1 Performed By: #### L 100.0500, L501.2300, L3310.0000, L500.4050 ####[facility] [address] [place], [address] Calcium [Mass/Vol] 9.5 mg/dL Normal 7.6-11.0 [facility] Comment on above: Order Comment: 516.1 Performed By: #### L 100.0500, L501.2300, L3310.0000, L500.4050 ####[facility] [address] [place], [address] Chloride [Moles/Vol] 106 mmol/L Normal 98-108 [facility] Comment on above: Order Comment: 516.1 Performed By: #### L 100.0500, L501.2300, L3310.0000, L500.4050 ####[facility] [address] [place], [address] CO2 [Moles/Vol] 21.2 mmol/L Normal 21.0-32.0 [facility] Comment on above: Order Comment: 516.1 Performed By: #### L 100.0500, L501.2300, L3310.0000, L500.4050 ####[facility] [address] [place], [address] Creatinine [Mass/Vol] 4.61 mg/dL High 0.70-1.20 [facility] Comment on above: Order Comment: 516.1 Performed By: #### L 100.0500, L501.2300, L3310.0000, L500.4050 ####[facility] [address] [place], [address] GAP 14 Normal 5-15 [facility] Comment on above: Order Comment: 516.1 Performed By: #### L 100.0500, L501.2300, L3310.0000, L500.4050 ####[facility] [address] [place], [address] GFR/1.73 sq M.predicted among non-blacks MDRD (S/P/Bld) [Vol rate/Area] 10 mL/min/{1.73_m2} Low >60 [facility] Comment on above: Order Comment: 516.1 Result Comment: mL/m in/1.73m2 CKD-EPI Creatinine Equation (2020) Performed By: #### L 100.0500, L501.2300, L3310.0000, L500.4050 ####[facility] [address] [place], [address] Globulin (S) [Mass/Vol] 2.3 g/dL Normal 2.2-4.2 [facility] Comment on above: Order Comment: 516.1 Performed By: #### L 100.0500, L501.2300, L3310.0000, L500.4050 ####[facility] [address] [place], [address] Glucose [Mass/Vol] 128 mg/dL High 70-99 [facility] Comment on above: Order Comment: 516.1 Performed By: #### L 100.0500, L501.2300, L3310.0000, L500.4050 ####[facility] [address] [place], [address] Potassium [Moles/Vol] 3.8 mmol/L Normal 3.3-5.1 [facility] Comment on above: Order Comment: 516.1 Performed By: #### L 100.0500, L501.2300, L3310.0000, L500.4050 ####[facility] [address] [place], [address] Sodium [Moles/Vol] 141 mmol/L Normal 133-145 [facility] Comment on above: Order Comment: 516.1 Performed By: #### L 100.0500, L501.2300, L3310.0000, L500.4050 ####[facility] [address] [place], [address] T PROT 6.6 g/dL Normal 5.9-8.4 [facility] Comment on above: Order Comment: 516.1 Performed By: #### L 100.0500, L501.2300, L3310.0000, L500.4050 ####[facility] [address] [place], [address] Urea nitrogen [Mass/Vol] 54 mg/dL High 4- [facility] Comment on above: Order Comment: 516.1 Performed By: #### L 100.0500, L501.2300, L3310.0000, L500.4050 ####[facility] [address] [place], [address] Phosphoruson 06-29-2025 Phosphate [Mass/Vol] 4.9 mg/dL High 2.7-4.5 [facility] Comment on above: Order Comment: 516.1 Performed By: #### L 100.0500, L501.2300, L3310.0000, L500.4050 ####[facility] [address] [place], [address] Basic Metabolic Profile (BMP )on 06-03-2025 BUN/CRE 13.4 RATIO Normal 10- [facility] Comment on above: Order Comment: 516.1 Performed By: #### L 500.2500 ####[facility] [address] [place], [address] Calcium [Mass/Vol] 9.6 mg/dL Normal 7.6-11.0 [facility] Comment on above: Order Comment: 516.1 Performed By: #### L 500.2500 ####[facility] [address] [place], [address] Chloride [Moles/Vol] 104 mmol/L Normal 98-108 [facility] Comment on above: Order Comment: 516.1 Performed By: #### L 500.2500 ####[facility] [address] [place], [address] CO2 [Moles/Vol] 21.4 mmol/L Normal 21.0-32.0 [facility] Comment on above: Order Comment: 516.1 Performed By: #### L 500.2500 ####[facility] [address] [place], [address] Creatinine [Mass/Vol] 4.31 mg/dL High 0.70-1.20 [facility] Comment on above: Order Comment: 516.1 Performed By: #### L 500.2500 ####[facility] [address] [place], [address] GAP 17 High 5-15 [facility] Comment on above: Order Comment: 516.1 Performed By: #### L 500.2500 ####[facility] [address] [place], [address] GFR/1.73 sq M.predicted among non-blacks MDRD (S/P/Bld) [Vol rate/Area] 10 mL/min/{1.73_m2} Low >60 [facility] Comment on above: Order Comment: 516.1 Result Comment: mL/m in/1.73m2 CKD-EPI Creatinine Equation (2020) Performed By: #### L 500.2500 ####[facility] [address] [place], [address] Glucose [Mass/Vol] 136 mg/dL High 70-99 [facility] Comment on above: Order Comment: 516.1 Performed By: #### L 500.2500 ####[facility] [address] [place], [address] Potassium [Moles/Vol] 3.8 mmol/L Normal 3.3-5.1 [facility] Comment on above: Order Comment: 516.1 Performed By: #### L 500.2500 ####[facility] [address] [place], [address] Sodium [Moles/Vol] 143 mmol/L Normal 133-145 [facility] Comment on above: Order Comment: 516.1 Performed By: #### L 500.2500 ####[facility] [address] [place], [address] Urea nitrogen [Mass/Vol] 58 mg/dL High 4-19 [facility] Comment on above: Order Comment: 516.1 Performed By: #### L 500.2500 ####[facility] [address] [place], [address] [facility] [place] [facility] CNPN Telephone (ALICE) ZAHIDA BELTRE ([id number]) 1955 F Date Time Provider Department 06/03/25 FELECIA SCHWARZ During your visit today, we recorded the following information about you: Radha Nichols LPN 06/03/2025 11:14 AM Signed Received results CMP/CBC from [facility], Delma Garcia [employer] looked @ results, informed she did not order the testing , but pt. Has worsening kidney function and needs to see Bill Sorter. Spoke with Nursing on [address] [place] [address] Chang ordered the testing, and they needed to be sure he received the results. 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 Radha Nichols LPN Allergies As of Date: [...] at bedtime. - sodium phosphate,mono-dibasic (FLEET ENEMA [place]) 1 suppository by RECTAL route as needed. [...] examination [Z01.818] 03/23/2024 Coronary artery disease involving hoopa enrique*03/23/2024 HTN (hypertension) [I10] 03/23/2024 Mixed hyperlipidemia [E78.2] 03/23/2024 Subdural hemorrhage (HCC) [I62.00] 06/18/2024 SDH (subdural hematoma) (HCC) [S06.5XAA] 06/18/2024 Fall [W19.XXXA] 06/19/2024 Age-related osteoporosis without current pathol*04/13/2024 Dependence on renal dialysis (HCC) [Z99.2] 04/07/2024 06/24/2024 Chronic anemia [D64.9] 06/19/2024 Hyponatremia [E87.1] 06/19/2024 06/24/2024 Encounter Status:Closed by RADHA NICHOLS on 06/03/25 Normal [facility] Protein+Creatinine Ratio,Uri neon 06-03-2025 PROT:CRE RATIO 2055 mg/g CRE High 0-200 [facility] Comment on above: Performed By: #### L 400.0001, L501.0900 ####[facility] [address], [address] Protein (U) [Mass/Vol] 126.0 mg/dL High 0.0-12.0 [facility] Comment on above: Performed By: #### L 400.0001, L501.0900 ####[facility] [address] [place], [address] UR CREAT 61.30 mg/dL Normal 28.00-217.0 0 [facility] Comment on above: Performed By: #### L 400.0001, L501.0900 ####[facility] [address] [place], [address] Urinalysis, Completeon 06-03 BACTERIA RARE Normal None Seen [facility] Comment on above: Order Comment: Urine , Random Performed By: #### L 400.0001, L501.0900 ####[facility] [address] [place], [address] EPI,SQUAMOUS 5-10 SEEN Normal 5-10 [facility] Comment on above: Order Comment: Urine , Random Performed By: #### L 400.0001, L501.0900 ####[facility] [address] [place], [address] RBC 5-10 SEEN Normal 0-5 [facility] Comment on above: Order Comment: Urine , Random Performed By: #### L 400.0001, L501.0900 ####[facility] [address] [place], [address] WBC 50-100 SEEN Normal 0-5 [facility] Comment on above: Order Comment: Urine , Random Performed By: #### L 400.0001, L501.0900 ####[facility] [address] [place], [address] Mucus Ql (Urine sed) 0 SEEN Normal [facility] Comment on above: Order Comment: Urine , Random Performed By: #### L 400.0001, L501.0900 ####[facility] [address] [place], [address] Anion gap in Serum or Plasma Ordered By: [facility] on 06-01-2025 Anion gap [Moles/Vol] 16 mmol/L High 5-15 [facility] BUN/creatinine ratioOrdered By: [facility] on 06-01-2025 Urea nitrogen/Creatinine [Mass ratio] 13.8 mg/mg 10-20 [facility] Bilirubin, totalOrdered By: [facility] on 06-01-2025 Bilirubin [Mass/Vol] 0.24 mg/dL 0.00-1.30 [facility] CBC-Complete Blood Cnt No Di ffon 06-01-2025 Erythrocyte distribution width (RBC) [Ratio] 13.2 % Normal 11.6-14.6 [facility] Comment on above: Order Comment: 516.1 Performed By: #### L 100.0500, L500.4050, L501.2300 ####[facility] [address] [place], [address] Hematocrit (Bld) [Volume fraction] 26.0 % Low 37-47 [facility] Comment on above: Order Comment: 516.1 Performed By: #### L 100.0500, L500.4050, L501.2300 ####[facility] [address] [place], [address] Hemoglobin (Bld) [Mass/Vol] 8.4 g/dL Low 12.0-15.0 [facility] Comment on above: Order Comment: 516.1 Performed By: #### L 100.0500, L500.4050, L501.2300 ####[facility] [address] [place], [address] MCH (RBC) [Entitic mass] 31.7 pg Normal 27.0-32.0 [facility] Comment on above: Order Comment: 516.1 Performed By: #### L 100.0500, L500.4050, L501.2300 ####[facility] [address] [place], [address] MCHC (RBC) [Mass/Vol] 32.3 g/dL Normal 32-36 [facility] Comment on above: Order Comment: 516.1 Performed By: #### L 100.0500, L500.4050, L501.2300 ####[facility] [address] [place], [address] MCV (RBC) [Entitic vol] 98.1 fL Normal 81-99 [facility] Comment on above: Order Comment: 516.1 Performed By: #### L 100.0500, L500.4050, L501.2300 ####[facility] [address] [place], [address] Platelet mean volume (Bld) [Entitic vol] 10.9 fL Normal 6.2-12.0 [facility] Comment on above: Order Comment: 516.1 Performed By: #### L 100.0500, L500.4050, L501.2300 ####[facility] [address] [place], [address] Platelets (Bld) [#/Vol] 308 10*3/uL Normal 150-450 [facility] Comment on above: Order Comment: 516.1 Performed By: #### L 100.0500, L500.4050, L501.2300 ####[facility] [address] [place], [address] RBC (Bld) [#/Vol] 2.65 10*6/uL Low 4.2-5.4 [facility] Comment on above: Order Comment: 516.1 Performed By: #### L 100.0500, L500.4050, L501.2300 ####[facility] [address] [place], [address] RDW SD 46.5 fl High 35.1-43.9 [facility] Comment on above: Order Comment: 516.1 Performed By: #### L 100.0500, L500.4050, L501.2300 ####[facility] [address] [place], [address] WBC (Bld) [#/Vol] 10.1 10*3/uL Normal 4.4-11.0 [facility] Comment on above: Order Comment: 516.1 Performed By: #### L 100.0500, L500.4050, L501.2300 ####[facility] [address] [place], [address] Carbon dioxide, total [Moles /volume] in Central venous bloodOrdered By: [facility] on 06-01-2025 CO2 [Moles/Vol] 19.1 mmol/L Low 21.0-32.0 [facility] Chloride assayOrdered By: [facility] on 06-01-2025 Chloride [Moles/Vol] 105 mmol/L 98-108 [facility] Comprehensive Metabolic Prof ilon 06-01-2025 Albumin [Mass/Vol] 4.2 g/dL Normal 3.4-4.8 [facility] Comment on above: Order Comment: 516.1 Performed By: #### L 100.0500, L500.4050, L501.2300 ####[facility] [address] [place], [address] Albumin/Globulin [Mass ratio] 1.8 {ratio} Normal 0.9-2.4 [facility] Comment on above: Order Comment: 516.1 Performed By: #### L 100.0500, L500.4050, L501.2300 ####[facility] [address] [place], [address] ALK PHOS 82 U/L Normal 35-104 [facility] Comment on above: Order Comment: 516.1 Performed By: #### L 100.0500, L500.4050, L501.2300 ####[facility] [address] [place], [address] ALT [Catalytic activity/Vol] 15 U/L Normal <=34 [facility] Comment on above: Order Comment: 516.1 Performed By: #### L 100.0500, L500.4050, L501.2300 ####[facility] [address] [place], [address] AST [Catalytic activity/Vol] 15 U/L Normal <=31 [facility] Comment on above: Order Comment: 516.1 Performed By: #### L 100.0500, L500.4050, L501.2300 ####[facility] [address] [place], [address] Bilirubin [Mass/Vol] 0.24 mg/dL Normal 0.00-1.30 [facility] Comment on above: Order Comment: 516.1 Performed By: #### L 100.0500, L500.4050, L501.2300 ####[facility] [address] [place], [address] BUN/CRE 13.8 RATIO Normal 10-20 [facility] Comment on above: Order Comment: 516.1 Performed By: #### L 100.0500, L500.4050, L501.2300 ####[facility] [address] [place], [address] Calcium [Mass/Vol] 9.3 mg/dL Normal 7.6-11.0 [facility] Comment on above: Order Comment: 516.1 Performed By: #### L 100.0500, L500.4050, L501.2300 ####[facility] [address] [place], [address] Chloride [Moles/Vol] 105 mmol/L Normal 98-108 [facility] Comment on above: Order Comment: 516.1 Performed By: #### L 100.0500, L500.4050, L501.2300 ####[facility] [address] [place], [address] CO2 [Moles/Vol] 19.1 mmol/L Low 21.0-32.0 [facility] Comment on above: Order Comment: 516.1 Performed By: #### L 100.0500, L500.4050, L501.2300 ####[facility] [address] [place], [address] Creatinine [Mass/Vol] 4.42 mg/dL High 0.70-1.20 [facility] Comment on above: Order Comment: 516.1 Performed By: #### L 100.0500, L500.4050, L501.2300 ####[facility] [address] [place], [address] GAP 16 High 5-15 [facility] Comment on above: Order Comment: 516.1 Performed By: #### L 100.0500, L500.4050, L501.2300 ####[facility] [address] [place], [address] GFR/1.73 sq M.predicted among non-blacks MDRD (S/P/Bld) [Vol rate/Area] 10 mL/min/{1.73_m2} Low >60 [facility] Comment on above: Order Comment: 516.1 Result Comment: mL/m in/1.73m2 CKD-EPI Creatinine Equation (2020) Performed By: #### L 100.0500, L500.4050, L501.2300 ####[facility] [address] [place], [address] Globulin (S) [Mass/Vol] 2.3 g/dL Normal 2.2-4.2 [facility] Comment on above: Order Comment: 516.1 Performed By: #### L 100.0500, L500.4050, L501.2300 ####[facility] [address] [place], [address] Glucose [Mass/Vol] 132 mg/dL High 70-99 [facility] Comment on above: Order Comment: 516.1 Performed By: #### L 100.0500, L500.4050, L501.2300 ####[facility] [address] [place], [address] Potassium [Moles/Vol] 3.9 mmol/L Normal 3.3-5.1 [facility] Comment on above: Order Comment: 516.1 Performed By: #### L 100.0500, L500.4050, L501.2300 ####[facility] [address] [place], [address] Sodium [Moles/Vol] 141 mmol/L Normal 133-145 [facility] Comment on above: Order Comment: 516.1 Performed By: #### L 100.0500, L500.4050, L501.2300 ####[facility] [address] [place], [address] T PROT 6.5 g/dL Normal 5.9-8.4 [facility] Comment on above: Order Comment: 516.1 Performed By: #### L 100.0500, L500.4050, L501.2300 ####[facility] [address] [place], [address] Urea nitrogen [Mass/Vol] 61 mg/dL High 4-19 [facility] Comment on above: Order Comment: 516.1 Performed By: #### L 100.0500, L500.4050, L501.2300 ####[facility] [address] [place], [address] Erythrocyte distribution wid th ratioOrdered By: [facility] on 06-01-2025 Erythrocyte distribution width (RBC) [Ratio] 13.2 % 11.6-14.6 [facility] Erythrocyte distribution wid th standard deviationOrdered By: [facility] on 06-01-2025 Erythrocyte distribution width (RBC) [Ratio] 46.5 fl High 35.1-43.9 [facility] Glomerular filtration rate ( GFR) estimation/1.73 sq m using serum, plasma, or whole bOrdered By: [facility] on 06-01-2025 GFR/1.73 sq M.predicted among non-blacks MDRD (S/P/Bld) [Vol rate/Area] 10 mL/min/{1.73_m2} Low >60 [facility] Comment on above: mL/min/1.73m2 CKD-EP I Creatinine Equation (2020) Hematocrit Auto (Bld) [Volum e fraction]Ordered By: [facility] on 06-01-2025 Hematocrit (Bld) [Volume fraction] 26.0 % Low 37-47 [facility] Hemoglobin measurementOrdere d By: [facility] on 06-01-2025 Hemoglobin (Bld) [Mass/Vol] 8.4 g/dL Low 12.0-15.0 [facility] Laboratory - Chemistry and C hemistry - challengeOrdered By: [facility] on 06-01-2025 AST [Catalytic activity/Vol] 15 U/L <32 [facility] MCV (mean corpuscular volume ) determinationOrdered By: [facility] on 06-01-2025 MCV (RBC) [Entitic vol] 98.1 fL 81-99 [facility] Mean corpuscular hemoglobin (MCH) determinationOrdered By: [facility] on 06-01-2025 MCH (RBC) [Entitic mass] 31.7 pg 27.0-32.0 [facility] Mean corpuscular hemoglobin concentration (MCHC) determinationOrdered By: [facility] on 06-01-2025 MCHC (RBC) [Mass/Vol] 32.3 g/dL 32-36 [facility] Mean platelet volume determi nationOrdered By: [facility] on 06-01-2025 Platelet mean volume (Bld) [Entitic vol] 10.9 fL 6.2-12.0 [facility] Phosphoruson 06-01-2025 Phosphate [Mass/Vol] 5.2 mg/dL High 2.7-4.5 [facility] Comment on above: Order Comment: 516.1 Performed By: #### L 100.0500, L500.4050, L501.2300 ####[facility] [address] [place], [address] Platelet countOrdered By: [facility] on 06-01-2025 Platelets (Bld) [#/Vol] 308 10*3/uL 150-450 [facility] Potassium measurement (mass/ volume)Ordered By: [facility] on 06-01-2025 Potassium (Unsp spec) [Mass/Vol] 3.9 mmol/L 3.3-5.1 [facility] RBC Auto (Bld) [#/Vol]Ordere d By: [facility] on 06-01-2025 RBC (Bld) [#/Vol] 2.65 10*6/uL Low 4.2-5.4 [facility] Serum creatinine measurement (mass/volume)Ordered By: [facility] on 06-01-2025 Creatinine [Mass/Vol] 4.42 mg/dL High 0.70-1.20 [facility] Serum globulin measurementOr dered By: [facility] on 06-01-2025 Globulin (S) [Mass/Vol] 2.3 g/dL 2.2-4.2 [facility] Serum glucose measurement (m ass/volume)Ordered By: [facility] on 06-01-2025 Glucose [Mass/Vol] 132 mg/dL High 70-99 [facility] Serum or plasma alanine mckeon otransferase (ALT) measurementOrdered By: [facility] on 06-01-2025 ALT [Catalytic activity/Vol] 15 U/L <35 [facility] Serum or plasma albumin yamil urement (mass/volume)Ordered By: [facility] on 06-01-2025 Albumin [Mass/Vol] 4.2 g/dL 3.4-4.8 [facility] Serum or plasma albumin/glob ulin mass ratioOrdered By: [facility] on 06-01-2025 Albumin/Globulin [Mass ratio] 1.8 {ratio} 0.9-2.4 [facility] Serum or plasma alkaline anthony sphatase measurementOrdered By: [facility] on 06-01-2025 ALP [Catalytic activity/Vol] 82 U/L 35-104 [facility] Serum or plasma calcium yamil urement (mass/volume)Ordered By: [facility] on 06-01-2025 Calcium [Mass/Vol] 9.3 mg/dL 7.6-11.0 [facility] Serum or plasma urea nitroge n measurement (mass/volume)Ordered By: [facility] on 06-01-2025 Urea nitrogen [Mass/Vol] 61 mg/dL High 4-19 [facility] Sodium levelOrdered By: [facility] on 06-01-2025 Sodium [Moles/Vol] 141 mmol/L 133-145 [facility] Total proteinOrdered By: [facility] on 06-01-2025 Protein [Mass/Vol] 6.5 g/dL 5.9-8.4 [facility] White blood cell (WBC) count Ordered By: [facility] on 06-01-2025 WBC (Bld) [#/Vol] 10.1 10*3/uL 4.4-11.0 [facility] Folates, RBCon 05-25-2025 Fol.,Hemolysate > 620.0 Normal Not Estab. [facility] Comment on above: Order Comment: Test( s) 719999-Vbvsuow B6was developed and its performance characteristicsdetermined by [employer]. It has not been cleared or approvedby the Food and Drug Administration. Performed By: #### L 503.0106, L503.5510, L101.9900, L3300.0960, L3100.5450, L3300.8200, L3300.8000, L3130.0010, L3100.1725, L501.9520, L503.6150, L503.6550, L501.5200 ####[facility] [address] [place], [address] Folate, RBC > 2385 Normal >498 [facility] Comment on above: Order Comment: Test( s) 363681-Hzxexdl B6was developed and its performance characteristicsdetermined by [employer]. It has not been cleared or approvedby the Food and Drug Administration. Performed By: #### L 503.0106, L503.5510, L101.9900, L3300.0960, L3100.5450, L3300.8200, L3300.8000, L3130.0010, L3100.1725, L501.9520, L503.6150, L503.6550, L501.5200 ####[facility] [address] [employer], [place], [address] Hematocrit (Bld) [Volume fraction] 26.0 % Low 34.0-46.6 [facility] Comment on above: Order Comment: Test( s) 865125-Y[place]vak B6was developed and its performance characteristicsdetermined by [employer]. It has not been cleared or approvedby the Food and Drug Administration. Performed By: #### L 503.0106, L503.5510, L101.9900, L3300.0960, L3100.5450, L3300.8200, L3300.8000, L3130.0010, L3100.1725, L501.9520, L503.6150, L503.6550, L501.5200 ####[facility] [address], [address] [place] Lambda Light Chainson 05-25-2025 FR KAPPA LT CHN 41.4 mg/L Abnormal 3.3-19.4 [facility] Comment on above: Order Comment: Test( s) 799269-Zbupjtm B6was developed and its performance characteristicsdetermined by [employer]. It has not been cleared or approvedby the Food and Drug Administration. Performed By: #### L 503.0106, L503.5510, L101.9900, L3300.0960, L3100.5450, L3300.8200, L3300.8000, L3130.0010, L3100.1725, L501.9520, L503.6150, L503.6550, L501.5200 ####[facility] [address] [place], [address] FR LAMBDA LT CH 34.3 mg/L Abnormal 5.7-26.3 [facility] Comment on above: Order Comment: Test( s) 552583-Ulgsqlp B6was developed and its performance characteristicsdetermined by [employer]. It has not been cleared or approvedby the Food and Drug Administration. Performed By: #### L 503.0106, L503.5510, L101.9900, L3300.0960, L3100.5450, L3300.8200, L3300.8000, L3130.0010, L3100.1725, L501.9520, L503.6150, L503.6550, L501.5200 ####[facility] [address] [place], [address] KAPPA/LAMBDA % 1.21 Normal 0.26-1.65 [facility] Comment on above: Order Comment: Test( s) 731358-Flpdgld B6was developed and its performance characteristicsdetermined by [employer]. It has not been cleared or approvedby the Food and Drug Administration. Performed By: #### L 503.0106, L503.5510, L101.9900, L3300.0960, L3100.5450, L3300.8200, L3300.8000, L3130.0010, L3100.1725, L501.9520, L503.6150, L503.6550, L501.5200 ####[facility] [address], [address] L3300.8200on 05-25-2025 VITAMIN B6 41.6 ug/L Normal 3.4-65.2 [facility] Comment on above: Order Comment: Test( s) 059704-Kbxlptp B6was developed and its performance characteristicsdetermined by [employer]. It has not been cleared or approvedby the Food and Drug Administration. Result Comment: Ve rified by repeat analysis Deficiency: <3.4 Marginal: 3.4 - 5.1 Adequate: >5.1 Performed By: #### L 503.0106, L503.5510, L101.9900, L3300.0960, L3100.5450, L3300.8200, L3300.8000, L3130.0010, L3100.1725, L501.9520, L503.6150, L503.6550, L501.5200 ####[facility] [address] [facility] [place], [address] Vitamin B1, Thiamineon 05-25 VIT B1 THIAMINE 164.7 nmol/L Normal 66.5-200.0 [facility] Comment on above: Order Comment: Test( s) 131804-Cgxlsap B6was developed and its performance characteristicsdetermined by [employer]. It has not been cleared or approvedby the Food and Drug Administration. Result Comment: Perf ormed at: - [facility] [id number] Director: Hussein Aguilar PhD, Phone: [phone] at: - [facility] [id number] Director: Rk Petty MD, Phone: [phone] Performed By: #### L 503.0106, L503.5510, L101.9900, L3300.0960, L3100.5450, L3300.8200, L3300.8000, L3130.0010, L3100.1725, L501.9520, L503.6150, L503.6550, L501.5200 ####[facility] [address] [employer], [place], [address] VINI w/ Reflex Mult Confirmon 05-21-2025 ANTI-DNA (DS)AB TNP Normal [facility] Comment on above: Performed By: #### L 503.0106, L503.5510, L101.9900, L3300.0960, L3100.5450, L3300.8200, L3300.8000, L3130.0010, L3100.1725, L501.9520, L503.6150, L503.6550, L501.5200 ####[facility] [address] [employer] [place], [place], [address] ANTI-SS-A TNP Normal [facility] Comment on above: Performed By: #### L 503.0106, L503.5510, L101.9900, L3300.0960, L3100.5450, L3300.8200, L3300.8000, L3130.0010, L3100.1725, L501.9520, L503.6150, L503.6550, L501.5200 ####[facility] [address] [employer], [place], [id number] ANTI-SS-B TNP Normal [facility] Comment on above: Performed By: #### L 503.0106, L503.5510, L101.9900, L3300.0960, L3100.5450, L3300.8200, L3300.8000, L3130.0010, L3100.1725, L501.9520, L503.6150, L503.6550, L501.5200 ####[facility] [address] [place] [employer], [place], [address] Vitamin D 1,25-Dihydroxyon 0 05-21-2025 VIT D 1,25 DIHY 20.8 pg/mL Abnormal 24.8-81.5 [facility] Comment on above: Performed By: #### L 503.0106, L503.5510, L101.9900, L3300.0960, L3100.5450, L3300.8200, L3300.8000, L3130.0010, L3100.1725, L501.9520, L503.6150, L503.6550, L501.5200 ####[facility] [address] [employer], [place], [address] Ammoniaon 05-17-2025 Ammonia (P) [Moles/Vol] 16.9 umol/L Normal 11-51 [facility] Comment on above: Performed By: #### L 503.0106, L503.5510, L101.9900, L3300.0960, L3100.5450, L3300.8200, L3300.8000, L3130.0010, L3100.1725, L501.9520, L503.6150, L503.6550, L501.5200 ####[facility] [address] [employer], [place], [address] Erythrocyte Sed Rateon 05-17 SED RATE 6 mm/hr Normal 0-30 [facility] Comment on above: Performed By: #### L 503.0106, L503.5510, L101.9900, L3300.0960, L3100.5450, L3300.8200, L3300.8000, L3130.0010, L3100.1725, L501.9520, L503.6150, L503.6550, L501.5200 ####[facility] [address] [employer], [place], [address] Erythrocyte folate measureme nt with hematocritOrdered By: Giovanny Brady on 05-17-2025 Hematocrit (Bld) [Volume fraction] 26.0 % Low 34.0-46.6 [facility] Erythrocyte sedimentation ra teOrdered By: Giovanny Brady on 05-17-2025 ESR (Bld) [Velocity] 6 mm/h 0-30 [facility] Ferritinon 05-17-2025 Ferritin [Mass/Vol] 936 ng/mL High 22-378 [facility] Comment on above: Performed By: #### L 503.0106, L503.5510, L101.9900, L3300.0960, L3100.5450, L3300.8200, L3300.8000, L3130.0010, L3100.1725, L501.9520, L503.6150, L503.6550, L501.5200 ####[facility] [address] [employer], [place], [address] Ironon 05-17-2025 Iron [Mass/Vol] 106 ug/dL Normal 50-170 [facility] Comment on above: Performed By: #### L 503.0106, L503.5510, L101.9900, L3300.0960, L3100.5450, L3300.8200, L3300.8000, L3130.0010, L3100.1725, L501.9520, L503.6150, L503.6550, L501.5200 ####[facility] [address] [employer], [place], [address] Iron measurement (mass/mass) Ordered By: Giovanny Brady on 05-17-2025 Iron (Unsp spec) [Mass/Mass] 106 ug/dL 50-170 [facility] Magnesiumon 05-17-2025 Magnesium [Mass/Vol] 2.2 mg/dL Normal 1.5-2.2 [facility] Comment on above: Performed By: #### L 503.0106, L503.5510, L101.9900, L3300.0960, L3100.5450, L3300.8200, L3300.8000, L3130.0010, L3100.1725, L501.9520, L503.6150, L503.6550, L501.5200 ####[facility] [address] [place], [address] Magnesium measurement (mass/ volume)Ordered By: Giovanny Brady on 05-17-2025 Magnesium (Unsp spec) [Mass/Vol] 2.2 mg/dL 1.5-2.2 [facility] Neurology Visit Reporton Neurology Visit Report Normal [facility] Serum DNA double strand anti body assay (units/volume)Ordered By: Giovanny Brady on 05-17-2025 DNA double strand Ab Qn (S) [facility] Comment on above: Test not performed Serum Scl-70 antibody assay (units/volume)Ordered By: Giovanny Brady on 05-17-2025 SCL-70 extractable nuclear Ab Qn (S) [facility] Comment on above: Test not performed Serum immunoglobulin kappa l ight chains/immunoglobulin lambda light chains mass ratioOrdered By: Giovanny Brady on 05-17-2025 Immunoglobulin light chains.kappa/Immunoglo bulin light chains.lambda (S) [Mass ratio] 1.21 0.26-1.65 [facility] Serum or plasma calcitriol m easurement (mass/volume)Ordered By: Giovanny Brady on 05-17-2025 1,25-dihydroxyvitamin D3 [Mass/Vol] 20.8 pg/mL Low 24.8-81.5 [facility] Serum or plasma ferritin maris surement (mass/volume)Ordered By: Giovanny Brady on 05-17-2025 Ferritin [Mass/Vol] 936 ng/mL High 22-378 [facility] Serum or plasma immunoglobul in kappa light chains measurement (mass/volume)Ordered By: Giovanny Brady on 05-17-2025 Immunoglobulin light chains.kappa [Mass/Vol] 41.4 mg/L High 3.3-19.4 [facility] Serum or plasma thiamine maris surement (mass/volume)Ordered By: Giovanny Brady on 05-17-2025 Thiamine [Mass/Vol] 164.7 nmol/L 66.5-200.0 [facility] Comment on above: Performed at: [id number] [place], [place] [id number] Director: Hussein Aguilar PhD, Phone: [phone] at: [address] [id number] Director: Rk Petty MD, Phone: [phone] TSH DL <= 0.005 mIU/L QnOrde red By: Giovanny Brady on 05-17-2025 TSH Qn 2.250 uIU/mL 0.300-4.200 [facility] Thyroid Stim Hormone (TSH)on 05-17-2025 TSH 2.250 uIU/mL Normal 0.300-4.200 [facility] Comment on above: Performed By: #### L 503.0106, L503.5510, L101.9900, L3300.0960, L3100.5450, L3300.8200, L3300.8000, L3130.0010, L3100.1725, L501.9520, L503.6150, L503.6550, L501.5200 ####[facility] [address] [facility] [place], [address] Venous blood ammonia measure mentOrdered By: Giovanny Brady on 05-17-2025 Ammonia (P) [Moles/Vol] 16.9 umol/L 11-51 [facility] Vitamin B12on 05-17-2025 Cobalamin (Vitamin B12) [Mass/Vol] 676 pg/mL Normal 180-914 [facility] Comment on above: Performed By: #### L 503.0106, L503.5510, L101.9900, L3300.0960, L3100.5450, L3300.8200, L3300.8000, L3130.0010, L3100.1725, L501.9520, L503.6150, L503.6550, L501.5200 ####[facility] [address] [employer] [place], [place], [address] Vitamin B12 ser/plasOrdered By: Giovanny Brady on 05-17-2025 Cobalamin (Vitamin B12) [Mass/Vol] 676 pg/mL 180-914 [facility] Anion gap in Serum or Plasma Ordered By: Bonnie Chang on 05-04-2025 Anion gap [Moles/Vol] 15 mmol/L 5-15 [facility] BUN/creatinine ratioOrdered By: Bonnie Chang on 05-04-2025 Urea nitrogen/Creatinine [Mass ratio] 11.7 mg/mg 10-20 [facility] Bilirubin, totalOrdered By: Bonnie Chang on 05-04-2025 Bilirubin [Mass/Vol] 0.27 mg/dL 0.00-1.30 [facility] CBC-Complete Blood Cnt No Di ffon 05-04-2025 Erythrocyte distribution width (RBC) [Ratio] 12.6 % Normal 11.6-14.6 [facility] Comment on above: Order Comment: 516-1 Performed By: #### L 500.4050, L501.2300, L100.0500 ####[facility] [address] [place], [address] Hematocrit (Bld) [Volume fraction] 25.9 % Low 37-47 [facility] Comment on above: Order Comment: 516-1 Performed By: #### L 500.4050, L501.2300, L100.0500 ####[facility] [address] [place], [address] Hemoglobin (Bld) [Mass/Vol] 8.5 g/dL Low 12.0-15.0 [facility] Comment on above: Order Comment: 516-1 Performed By: #### L 500.4050, L501.2300, L100.0500 ####[facility] [address] [place], [address] MCH (RBC) [Entitic mass] 31.5 pg Normal 27.0-32.0 [facility] Comment on above: Order Comment: 516-1 Performed By: #### L 500.4050, L501.2300, L100.0500 ####[facility] [address] [place], [address] MCHC (RBC) [Mass/Vol] 32.8 g/dL Normal 32-36 [facility] Comment on above: Order Comment: 516-1 Performed By: #### L 500.4050, L501.2300, L100.0500 ####[facility] [address] [place], [address] MCV (RBC) [Entitic vol] 95.9 fL Normal 81-99 [facility] Comment on above: Order Comment: 516-1 Performed By: #### L 500.4050, L501.2300, L100.0500 ####[facility] [address] [place], [address] Platelet mean volume (Bld) [Entitic vol] 10.8 fL Normal 6.2-12.0 [facility] Comment on above: Order Comment: 516-1 Performed By: #### L 500.4050, L501.2300, L100.0500 ####[facility] [address] [place], [address] Platelets (Bld) [#/Vol] 301 10*3/uL Normal 150-450 [facility] Comment on above: Order Comment: 516-1 Performed By: #### L 500.4050, L501.2300, L100.0500 ####[facility] [address] [place], [address] RBC (Bld) [#/Vol] 2.70 10*6/uL Low 4.2-5.4 [facility] Comment on above: Order Comment: 516-1 Performed By: #### L 500.4050, L501.2300, L100.0500 ####[facility] [address] [place], [address] RDW SD 43.2 fl Normal 35.1-43.9 [facility] Comment on above: Order Comment: 516-1 Performed By: #### L 500.4050, L501.2300, L100.0500 ####[facility] [address] [place], [address] WBC (Bld) [#/Vol] 8.4 10*3/uL Normal 4.4-11.0 [facility] Comment on above: Order Comment: 516-1 Performed By: #### L 500.4050, L501.2300, L100.0500 ####[facility] [address] [place], [address] Carbon dioxide, total [Moles /volume] in Central venous bloodOrdered By: Bonnie Chang on 05-04-2025 CO2 [Moles/Vol] 21.5 mmol/L 21.0-32.0 [facility] Chloride assayOrdered By: Nick Chang on 05-04-2025 Chloride [Moles/Vol] 103 mmol/L 98-108 [facility] Comprehensive Metabolic Prof ilon 05-04-2025 Albumin [Mass/Vol] 4.2 g/dL Normal 3.4-4.8 [facility] Comment on above: Order Comment: 516-1 Performed By: #### L 500.4050, L501.2300, L100.0500 ####[facility] [address] [place], [address] Albumin/Globulin [Mass ratio] 1.9 {ratio} Normal 0.9-2.4 [facility] Comment on above: Order Comment: 516-1 Performed By: #### L 500.4050, L501.2300, L100.0500 ####[facility] [address] [place], [address] ALK PHOS 78 U/L Normal 35-104 [facility] Comment on above: Order Comment: 516-1 Performed By: #### L 500.4050, L501.2300, L100.0500 ####[facility] [address] [place], [address] ALT [Catalytic activity/Vol] 14 U/L Normal <=34 [facility] Comment on above: Order Comment: 516-1 Performed By: #### L 500.4050, L501.2300, L100.0500 ####[facility] [address] [place], [address] AST [Catalytic activity/Vol] 16 U/L Normal <=31 [facility] Comment on above: Order Comment: 516-1 Performed By: #### L 500.4050, L501.2300, L100.0500 ####[facility] [address] [place], [address] Bilirubin [Mass/Vol] 0.27 mg/dL Normal 0.00-1.30 [facility] Comment on above: Order Comment: 516-1 Performed By: #### L 500.4050, L501.2300, L100.0500 ####[facility] [address] [place], [address] BUN/CRE 11.7 RATIO Normal 10-20 [facility] Comment on above: Order Comment: 516-1 Performed By: #### L 500.4050, L501.2300, L100.0500 ####[facility] [address] [place], [address] Calcium [Mass/Vol] 9.1 mg/dL Normal 7.6-11.0 [facility] Comment on above: Order Comment: 516-1 Performed By: #### L 500.4050, L501.2300, L100.0500 ####[facility] [address] [place], [address] Chloride [Moles/Vol] 103 mmol/L Normal 98-108 [facility] Comment on above: Order Comment: 516-1 Performed By: #### L 500.4050, L501.2300, L100.0500 ####[facility] [address] [place], [address] CO2 [Moles/Vol] 21.5 mmol/L Normal 21.0-32.0 [facility] Comment on above: Order Comment: 516-1 Performed By: #### L 500.4050, L501.2300, L100.0500 ####[facility] [address] [place], [address] Creatinine [Mass/Vol] 4.78 mg/dL High 0.70-1.20 [facility] Comment on above: Order Comment: 516-1 Performed By: #### L 500.4050, L501.2300, L100.0500 ####[facility] [address] [place], [address] GAP 15 Normal 5-15 [facility] Comment on above: Order Comment: 516-1 Performed By: #### L 500.4050, L501.2300, L100.0500 ####[facility] [address] [place], [address] GFR/1.73 sq M.predicted among non-blacks MDRD (S/P/Bld) [Vol rate/Area] 9 mL/min/{1.73_m2} Low >60 [facility] Comment on above: Order Comment: 516-1 Result Comment: mL/m in/1.73m2 CKD-EPI Creatinine Equation (2020) Performed By: #### L 500.4050, L501.2300, L100.0500 ####[facility] [address] [place], [address] Globulin (S) [Mass/Vol] 2.3 g/dL Normal 2.2-4.2 [facility] Comment on above: Order Comment: 516-1 Performed By: #### L 500.4050, L501.2300, L100.0500 ####[facility] [address] [place], [address] Glucose [Mass/Vol] 131 mg/dL High 70-99 [facility] Comment on above: Order Comment: 516-1 Performed By: #### L 500.4050, L501.2300, L100.0500 ####[facility] [address] [place], [address] Potassium [Moles/Vol] 3.6 mmol/L Normal 3.3-5.1 [facility] Comment on above: Order Comment: 516-1 Performed By: #### L 500.4050, L501.2300, L100.0500 ####[facility] [address] [place], [address] Sodium [Moles/Vol] 140 mmol/L Normal 133-145 [facility] Comment on above: Order Comment: 516-1 Performed By: #### L 500.4050, L501.2300, L100.0500 ####[facility] [address] [place], [address] T PROT 6.5 g/dL Normal 5.9-8.4 [facility] Comment on above: Order Comment: 516-1 Performed By: #### L 500.4050, L501.2300, L100.0500 ####[facility] [address] [place], [address] Urea nitrogen [Mass/Vol] 56 mg/dL High 4-19 [facility] Comment on above: Order Comment: 516-1 Performed By: #### L 500.4050, L501.2300, L100.0500 ####[facility] [address] [place], [address] Erythrocyte distribution wid th ratioOrdered By: Bonnie Chang on 05-04-2025 Erythrocyte distribution width (RBC) [Ratio] 12.6 % 11.6-14.6 [facility] Erythrocyte distribution wid th standard deviationOrdered By: Bonnie Chang on 05-04-2025 Erythrocyte distribution width (RBC) [Ratio] 43.2 fl 35.1-43.9 [facility] Glomerular filtration rate ( GFR) estimation/1.73 sq m using serum, plasma, or whole bOrdered By: Bonnie Chang on 05-04-2025 GFR/1.73 sq M.predicted among non-blacks MDRD (S/P/Bld) [Vol rate/Area] 9 mL/min/{1.73_m2} Low >60 [facility] Comment on above: mL/min/1.73m2 CKD-EP I Creatinine Equation (2020) Hematocrit Auto (Bld) [Volum e fraction]Ordered By: Bonnie Chang on 05-04-2025 Hematocrit (Bld) [Volume fraction] 25.9 % Low 37-47 [facility] Hemoglobin measurementOrdere d By: Bonnie Chang on 05-04-2025 Hemoglobin (Bld) [Mass/Vol] 8.5 g/dL Low 12.0-15.0 [facility] Laboratory - Chemistry and C hemistry - challengeOrdered By: Bonnie Chang on 05-04-2025 AST [Catalytic activity/Vol] 16 U/L <32 [facility] MCV (mean corpuscular volume ) determinationOrdered By: Bonnie Chang on 05-04-2025 MCV (RBC) [Entitic vol] 95.9 fL 81-99 [facility] Mean corpuscular hemoglobin (MCH) determinationOrdered By: Bonnie Chang on 05-04-2025 MCH (RBC) [Entitic mass] 31.5 pg 27.0-32.0 [facility] Mean corpuscular hemoglobin concentration (MCHC) determinationOrdered By: Bonnie Chang on 05-04-2025 MCHC (RBC) [Mass/Vol] 32.8 g/dL 32-36 [facility] Mean platelet volume determi nationOrdered By: Bonnie Chang on 05-04-2025 Platelet mean volume (Bld) [Entitic vol] 10.8 fL 6.2-12.0 [facility] Phosphoruson 05-04-2025 Phosphate [Mass/Vol] 4.8 mg/dL High 2.7-4.5 [facility] Comment on above: Order Comment: 516-1 Performed By: #### L 500.4050, L501.2300, L100.0500 ####[facility] [address] [place], [address] Platelet countOrdered By: Nick Chang on 05-04-2025 Platelets (Bld) [#/Vol] 301 10*3/uL 150-450 [facility] Potassium measurement (mass/ volume)Ordered By: Bonnie Chang on 05-04-2025 Potassium (Unsp spec) [Mass/Vol] 3.6 mmol/L 3.3-5.1 [facility] RBC Auto (Bld) [#/Vol]Ordere d By: Bonnie Chang on 05-04-2025 RBC (Bld) [#/Vol] 2.70 10*6/uL Low 4.2-5.4 [facility] Serum creatinine measurement (mass/volume)Ordered By: Bonnie Chang on 05-04-2025 Creatinine [Mass/Vol] 4.78 mg/dL High 0.70-1.20 [facility] Serum globulin measurementOr dered By: Bonnie Chang on 05-04-2025 Globulin (S) [Mass/Vol] 2.3 g/dL 2.2-4.2 [facility] Serum glucose measurement (m ass/volume)Ordered By: Bonnie Chang on 05-04-2025 Glucose [Mass/Vol] 131 mg/dL High 70-99 [facility] Serum or plasma alanine mckeon otransferase (ALT) measurementOrdered By: Bonnie Chang on 05-04-2025 ALT [Catalytic activity/Vol] 14 U/L <35 [facility] Serum or plasma albumin yamil urement (mass/volume)Ordered By: Bonnie Chang on 05-04-2025 Albumin [Mass/Vol] 4.2 g/dL 3.4-4.8 [facility] Serum or plasma albumin/glob ulin mass ratioOrdered By: Bonnie Chang on 05-04-2025 Albumin/Globulin [Mass ratio] 1.9 {ratio} 0.9-2.4 [facility] Serum or plasma alkaline anthony sphatase measurementOrdered By: Bonnie Chang on 05-04-2025 ALP [Catalytic activity/Vol] 78 U/L 35-104 [facility] Serum or plasma calcium yamil urement (mass/volume)Ordered By: Bonnie Chang on 05-04-2025 Calcium [Mass/Vol] 9.1 mg/dL 7.6-11.0 [facility] Serum or plasma urea nitroge n measurement (mass/volume)Ordered By: Bonnie Chang on 05-04-2025 Urea nitrogen [Mass/Vol] 56 mg/dL High 4-19 [facility] Sodium levelOrdered By: Gray Chang on 05-04-2025 Sodium [Moles/Vol] 140 mmol/L 133-145 [facility] Total proteinOrdered By: Aman Chang on 05-04-2025 Protein [Mass/Vol] 6.5 g/dL 5.9-8.4 [facility] White blood cell (WBC) count Ordered By: Bonnie Chang on 05-04-2025 WBC (Bld) [#/Vol] 8.4 10*3/uL 4.4-11.0 [facility] CNPCatarina 04-29-2025 SAL[place]ORE Telephone (ALICE) ZAHIDA BELTRE ([id number]) 1955 F Date Time Provider Department 04/29/25 [...] stability. (Orders entered) Pt currently resides in [facility]. I attempted to reach spouse number ivanna busy. No answer on daughter Jeanette's phone (she was present for appt) Case and labs reviewed with Dr Vivas. Sultana Garcia, REED.Jazzy Munguia LPN 04/29/2025 2:52 PM Addendum I called and spoke to Hope, patient's nurse at [facility]. Patient is scheduled to see nephrology in early June. She also has a CBC drawn every 28 days; Hope will fax the results in July (3 month CBC). Jazzy Arciniega LPN Allergies As of Date: 04/29/2025 Noted Allergy Reaction AMLODIPINE 09/13/2016 14 - Other: See Comments ASPARTAME 04/20/2025 14 - Other: See Comments Comments: Extremely thirsty Date Reviewed: 04/20/2025 Reviewed by: Sultana Gacria - Fully Assessed Primary Visit Diagnosis: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, not on chronic dialysis (HCC) [N18.5, D63.1] Order(s):COMPLETE BLOOD COUNT AND DIFFERENTIAL [SQCBCDIF] Order #: [id number] FUTURE Prescriptions as of 04/29/2025 - cloNIDine HCl (CATAPRES) 0.3 mg tablet Take 0.3 mg by mouth three times a day. - cranberry fruit (CRANBERRY) 450 mg tab Take 450 mg by mouth once daily. - famotidine (PEPCID) 20 mg tablet Take 20 mg by mouth daily at bedtime. - sodium phosphate,mono-dibasic (FLEET ENEMA [place]) 1 suppository by RECTAL route as needed. [...] examination [Z01.818] 03/23/2024 Coronary artery disease involving hoopa enrique*03/23/2024 HTN (hypertension) [I10] 03/23/2024 Mixed hyperlipidemia [E78.2] 03/23/2024 Subdural hemorrhage (HCC) [I62.00] 06/18/2024 SDH (subdural hematoma) (HCC) [S06.5XAA] 06/18/2024 Fall [W19.XXXA] 06/19/2024 Age-related osteoporosis without current pathol*04/13/2024 Dependence on renal dialysis (HCC) [Z99.2] 04/07/2024 (more content not included)... Normal [facility] Evelyn 04-22-2025 MARY Telephone (ALICE) ZAHIDA BELTRE ([id number]) 1955 F Date Time Provider Department 04/22/25 SULTANA GARCIA During your visit today, we recorded the following information about you: Yazmin Medel 04/22/2025 10:25 AM Signed Please fax 04/20 lab results to [facility] at [phone] Radha Nichols LPN 04/22/2025 11:06 AM Signed Labs faxed as directed. Radha S Bao, SENIOR DATA ANALYST Allergies As of Date: 04/22/2025 Noted Allergy [...] at bedtime. - sodium phosphate,mono-dibasic (FLEET ENEMA WV) 1 suppository by RECTAL route as needed. [...] examination [Z01.818] 03/23/2024 Coronary artery disease involving hoopa enrique*03/23/2024 HTN (hypertension) [I10] 03/23/2024 Mixed hyperlipidemia [E78.2] 03/23/2024 Subdural hemorrhage (HCC) [I62.00] 06/18/2024 SDH (subdural hematoma) (HCC) [S06.5XAA] 06/18/2024 Fall [W19.XXXA] 06/19/2024 Age-related osteoporosis without current pathol*04/13/2024 Dependence on renal dialysis (HCC) [Z99.2] 04/07/2024 06/24/2024 Chronic anemia [D64.9] 06/19/2024 Hyponatremia [E87.1] 06/19/2024 06/24/2024 Encounter Status:Closed by RADHA NICHOLS on 04/22/25 Normal [facility] COPPER BLOODOrdered By: Giovanni Hanson on 04-21-2025 Copper [Mass/Vol] 107 ug/dL 80 - 155 ug/dL [facility] Comment on above: This test was devomario ped, and its performance characteristics determined by the [facility] Department of Pathology and Laboratory Medicine. It has not been cleared or approved by the FDA. The [facility] Department of Pathology and Laboratory Medicine is regulated under CLIA as qualified to perform high-complexity testing. This test is used for clinical purposes. It should not be regarded as investigational or for research. ERYTHROPOIETIN/EPOon 025 Erythropoietin (EPO) Qn 13.2 [IU]/L [facility] Erythropoietin (EPO) Qnon Interpretation and review of laboratory results Normal [facility] Test analyzed by the [employer] DxI method. [facility] FERRITINon 04-21-2025 Ferritin [Mass/Vol] 987.0 ng/mL High 14.7 - 205.1 ng/mL [facility] FOLATE, SERUMon 04-21-2025 Folate [Mass/Vol] ng/mL 4.7 - PINF ng/mL [facility] Comment on above: A result of > 20 ng/ mL is not necessarily indicative of a pathologic or treatable condition: it reflects a limitation of the test methodology. Assay reference range: 4.8 to 24.2 ng/mL. Suitable for detection of folate deficiency. Reference: Folate III (Folate III) [package insert V 1.0 Uzbek]. [facility], [place], [place]: July 2015. Ferritin [Mass/Vol]on 2024 Interpretation and review of laboratory results Abnormal [facility] Iron and Iron binding capaci ty panelon 04-21-2025 Interpretation and review of laboratory results Normal [facility] Iron [Mass/Vol] 104 ug/dL 41 - 186 ug/dL [facility] Iron binding capacity [Mass/Vol] 342 ug/dL 232 - 386 ug/dL [facility] Iron/TIBC [Molar ratio] 30.4 % 15.0 - 57.0 % [facility] No Panel InformationOrdered By: Paris Hanson on 04-21-2025 Interpretation and review of laboratory results Normal [facility] No Panel Informationon 04-21 Interpretation and review of laboratory results Normal [facility] VITAMIN B12on 04-21-2025 Cobalamin (Vitamin B12) [Mass/Vol] 840 pg/mL 232 - 1245 pg/mL [facility] ZINC BLDon 04-21-2025 Zinc [Mass/Vol] 84 ug/dL 60 - 120 ug/dL [facility] Comment on above: This test was FUNGO STUDIOSelo ped, and its performance characteristics determined by the [facility] Department of Pathology and Laboratory Medicine. It has not been cleared or approved by the FDA. The [facility] Department of Pathology and Laboratory Medicine is regulated under CLIA as qualified to perform high-complexity testing. This test is used for clinical purposes. It should not be regarded as investigational or for research. CBC panel Auto (Bld)on 04-20 Erythrocyte distribution width (RBC) [Ratio] 12.6 % 11.5 - 15.0 % [facility] Hematocrit (Bld) [Volume fraction] 31.1 % Low 36.0 - 46.0 % [facility] Hemoglobin (Bld) [Mass/Vol] 10.3 g/dL Low 11.5 - 15.5 g/dL [facility] Interpretation and review of laboratory results Abnormal [facility] MCH (RBC) [Entitic mass] 31.7 pg 26.0 - 34.0 pg [facility] MCHC (RBC) [Mass/Vol] 33.1 g/dL 30.5 - 36.0 g/dL [facility] MCV (RBC) [Entitic vol] 95.7 fL 80.0 - 100.0 fL [facility] Nucleated RBC (Bld) [#/Vol] NINF [facility] Platelet mean volume (Bld) [Entitic vol] 9.9 fL 9.0 - 12.7 fL [facility] Platelets (Bld) [#/Vol] 368 10*3/uL [facility] RBC (Bld) [#/Vol] 3.25 10*6/uL Low 3.90 - 5.2 0 m/uL [facility] WBC (Bld) [#/Vol] 12.16 10*3/uL High [facility] Erythrocyte distribution width (RBC) [Ratio] 12.6 % Normal 11.5-15.0 [facility] Comment on above: Order Comment: Speci men Type: BLOOD SPECIMEN Ordering Facility: [facility] Address: [address] [place] [address] Performed By: #### 5 8410-2 #### [facility] CLIA [id number] [address] [place] [address] [place] Hematocrit (Bld) [Volume fraction] 31.1 % Low 36.0-46.0 [facility] Comment on above: Order Comment: Speci men Type: BLOOD SPECIMEN Ordering Facility: [facility] Address: [address] [place] [address] Performed By: #### 5 8410-2 #### [id number] [address] [place] [address] [place] Hemoglobin (Bld) [Mass/Vol] 10.3 g/dL Low 11.5-15.5 [facility] Comment on above: Order Comment: Speci men Type: BLOOD SPECIMEN Ordering Facility: [facility] Address: [address] [place] [address] Performed By: #### 5 8410-2 #### [facility] [id number] [address] [place] [address] [place] MCH (RBC) [Entitic mass] 31.7 pg Normal 26.0-34.0 [facility] Comment on above: Order Comment: Speci men Type: BLOOD SPECIMEN Ordering Facility: [facility] Address: [address] [place] [address] Performed By: #### 5 8410-2 #### [facility] CLIA [id number] [address] [place] [address] [place] MCHC (RBC) [Mass/Vol] 33.1 g/dL Normal 30.5-36.0 [facility] Comment on above: Order Comment: Speci men Type: BLOOD SPECIMEN Ordering Facility: [facility] Address: [address] [place] [address] Performed By: #### 5 8410-2 #### [facility] CLIA [id number] [address] [place] [address] [place] MCV (RBC) [Entitic vol] 95.7 fL Normal 80.0-100.0 [facility] Comment on above: Order Comment: Speci men Type: BLOOD SPECIMEN Ordering Facility: [facility] Address: [address] [place] [address] Performed By: #### 5 8410-2 #### [facility] CLIA [id number] [address] [place] [address] [place] Nucleated RBC (Bld) [#/Vol] 10*3/uL Normal <0.01 [facility] Comment on above: Order Comment: Speci men Type: BLOOD SPECIMEN Ordering Facility: [facility] Address: [address] [place] [address] Performed By: #### 5 8410-2 #### [facility] CLIA [id number] [address] [place] [address] [place] Platelet mean volume (Bld) [Entitic vol] 9.9 fL Normal 9.0-12.7 [facility] Comment on above: Order Comment: Speci men Type: BLOOD SPECIMEN Ordering Facility: [facility] Address: [address] [place] [address] Performed By: #### 5 8410-2 #### [facility] CLIA [id number] [address] [place] [address] [place] Platelets (Bld) [#/Vol] 368 10*3/uL Normal 150-400 [facility] Comment on above: Order Comment: Speci men Type: BLOOD SPECIMEN Ordering Facility: [facility] Address: [address] [id number] Performed By: #### 5 8410-2 #### [facility] CLIA [id number] [address] [place] [address] [place] RBC (Bld) [#/Vol] 3.25 10*6/uL Low 3.90-5.20 [facility] Comment on above: Order Comment: Speci men Type: BLOOD SPECIMEN Ordering Facility: [facility] Address: [address] [place] [address] Performed By: #### 5 8410-2 #### [facility] CLIA [id number] [address] [place] [address] [place] WBC (Bld) [#/Vol] 12.16 10*3/uL High 3.70-11.00 [facility] Comment on above: Order Comment: Speci men Type: BLOOD SPECIMEN Ordering Facility: [facility] Address: [address] [place] [address] Performed By: #### 5 8410-2 #### [facility] CLIA [id number] [address] [place] [address] [place] CNOVSPon 04-20-2025 OVS Visit (SP) Office (H EMAWS) ZAHIDA BELTRE ([id number]) 1955 F Date Time Provider Department 04/20/25 [...] daughter Jeanette as a 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 She is a poor historian, rather tangential. [facility]. Per chart review [...] daily at bedtime. sodium phosphate,mono-dibasic (FLEET ENEMA [place]) 1 suppository by RECTAL route as needed. [...] Take 40 (more content not included)... Normal [facility] COPPER BLOODon 04-20-2025 Copper [Mass/Vol] 107 ug/dL Normal 80-155 [facility] Comment on above: Order Comment: Speci men Type: BLOOD SPECIMEN [facility]ing Facility: [facility] Address: [address] [place] [address] Result Comment: This test was developed, and its performance characteristics determined by the [facility] Department of Pathology and Laboratory Medicine. It has not been cleared or approved by the FDA. The [facility] Department of Pathology and Laboratory Medicine is regulated under CLIA as qualified to perform high-complexity testing. This test is used for clinical purposes. It should not be regarded as investigational or for research. Performed By: #### 5 763-8, COPPER #### [facility] CLIA [id number] [address] [place] [address] [place] Comprehensive metabolic 2000 panelOrdered By: Farnaz Mata on 04-20-2025 Albumin [Mass/Vol] 4.8 g/dL 3.9 - 4.9 g/dL [facility] ALP [Catalytic activity/Vol] 95 U/L 34 - 123 U/L [facility] ALT [Catalytic activity/Vol] 12 U/L 7 - 38 U/L [facility] Anion gap [Moles/Vol] 17 mmol/L High 8 - 15 mmol/L [facility] AST [Catalytic activity/Vol] 13 U/L 13 - 35 U/L [facility] Bilirubin [Mass/Vol] 0.2 mg/dL 0.2 - 1 .3 mg/dL [facility] Calcium [Mass/Vol] 9.9 mg/dL 8.5 - 10. 2 mg/dL [facility] Chloride [Moles/Vol] 100 mmol/L 98 - 10 7 mmol/L [facility] CO2 [Moles/Vol] 21 mmol/L Low 22 - 30 mmol/L [facility] Creatinine [Mass/Vol] 4.68 mg/dL High 0.58 - 0.96 mg/dL [facility] GFR/1.73 sq M.predicted among non-blacks MDRD (S/P/Bld) [Vol rate/Area] 9 mL/min/{1.73_m2} Low - PINF [facility] Comment on above: Estimated Glomerular Filtration [...] 125 mg/dL High 74 - 99 mg/dL [facility] Comment on above: The [place] Di[employer] [place] Association (ADA) provides guidance for [...] Standards of Medical Care in Diabetes 2016, [place] [employer]. Diabetes Care. 2016.39(Suppl 1). Interpretation and review of laboratory results Abnormal [facility] Potassium [Moles/Vol] 4.0 mmol/L 3.7 - 5.1 mmol/L [facility] Protein [Mass/Vol] 7.5 g/dL 6.3 - 8.0 g/dL [facility] Sodium [Moles/Vol] 138 mmol/L 136 - 144 mmol/L [facility] Urea nitrogen [Mass/Vol] 58 mg/dL High 7 - 21 mg/dL [facility] Comprehensive metabolic 2000 panelon 04-20-2025 Albumin [Mass/Vol] 4.8 g/dL Normal 3.9-4.9 [facility] Comment on above: Order Comment: Speci men Type: BLOOD SPECIMEN [facility]ing Facility: [facility] Address: [facility] [place] [address] Performed By: #### 2 4323-8 #### [facility] CLIA [id number] [address] [place] [address] [place] ALP [Catalytic activity/Vol] 95 U/L Normal 34-123 [facility] Comment on above: Order Comment: Speci men Type: BLOOD SPECIMEN [facility] Facility: [facility] Address: [address] [place] [address] Performed By: #### 2 4323-8 #### [facility] CL[facility] [id number] [address] [place] [address] [place] ALT [Catalytic activity/Vol] 12 U/L Normal 7-38 [facility] Comment on above: Order Comment: Speci men Type: BLOOD SPECIMEN [facility]: [facility] Address: [address] [place] [address] Performed By: #### 2 4323-8 #### [facility] CLIA [id number] [address] [place] [address] [place] Anion gap [Moles/Vol] 17 mmol/L High 8-15 [facility] Comment on above: Order Comment: Speci men Type: BLOOD SPECIMEN [facility]: [facility] Address: [address] [place] [address] Performed By: #### 2 4323-8 #### [facility] CLIA [id number] [address] [place] [address] [place] AST [Catalytic activity/Vol] 13 U/L Normal 13-35 [facility] Comment on above: Order Comment: Speci men Type: BLOOD SPECIMEN [facility] Facility[facility] Address: [address] [place] [address] Performed By: #### 2 4323-8 #### [facility] CLIA [id number] [address] [place] [address] [place] Bilirubin [Mass/Vol] 0.2 mg/dL Normal 0.2-1.3 [facility] Comment on above: Order Comment: Speci men Type: BLOOD SPECIMEN Ordering Facility: [facility] Address: [address] [place] [address] Performed By: #### 2 4323-8 #### [facility] CLIA [id number] [address] [place] [address] [place] Calcium [Mass/Vol] 9.9 mg/dL Normal 8.5-10.2 [facility] Comment on above: Order Comment: Speci men Type: BLOOD SPECIMEN [facility]ing Facility: [facility] Address: [address] [place], [place] [address] Performed By: #### 2 4323-8 #### [facility] CLIA [id number] [address] [place] [address] [place] Chloride [Moles/Vol] 100 mmol/L Normal 98-107 [facility] Comment on above: Order Comment: Speci men Type: BLOOD SPECIMEN Ordering Facility: [facility] Address: [address] [place] [address] Performed By: #### 2 4323-8 #### [facility] CLIA [id number] [address] [place] [address] [place] CO2 [Moles/Vol] 21 mmol/L Low 22-30 [facility] Comment on above: Order Comment: Speci men Type: BLOOD SPECIMEN [facility]ing Facility: [facility] Address: [address] [place] [address] Performed By: #### 2 4323-8 #### [facility] CL[facility] [id number] [address] [place] [address] [place] Creatinine [Mass/Vol] 4.68 mg/dL High 0.58-0.96 [facility] Comment on above: Order Comment: Speci men Type: BLOOD SPECIMEN [facility]ing [facility] Address: [address] [place] [address] Performed By: #### 2 4323-8 #### [facility] CLIA [id number] [address] [place] [address] [place] eGFRcr SerPlBld CKD-EPI 2020 9 mL/min/1.73m??? Low >=60 [facility] Comment on above: Order Comment: Dee Dee godfrey Type: BLOOD SPECIMEN [facility]: [facility] Address: [address] [place] [address] Result Comment: Saige mated Glomerular Filtration Rate [...] GFR. Performed By: #### 2 4323-8 #### [id number] [address] [place] [address] [place] Glucose [Mass/Vol] 125 mg/dL High 74-99 [facility] Comment on above: Order Comment: Dee Dee godfrey Type: BLOOD SPECIMEN [facility] Address: [address] [place] [address] Result Comment: The [place] Diabetes Association (ADA) provides guidance for cutoff [...] Standards of Medical Care in Diabetes 2016, [place] [employer]. Diabetes Care. 2016.39(Suppl 1). Performed By: #### 2 4323-8 #### [facility] [id number] [address] [place] [address] [place] Potassium [Moles/Vol] 4.0 mmol/L Normal 3.7-5.1 [facility] Comment on above: Order Comment: Speci men Type: BLOOD SPECIMEN [facility] Address: [address] [place] [address] Performed By: #### 2 4323-8 #### [facility] CLIA [id number] [address] [place] [address] [place] Protein [Mass/Vol] 7.5 g/dL Normal 6.3-8.0 [facility] Comment on above: Order Comment: Speci men Type: BLOOD SPECIMEN [facility] Address: [address] [place] [address] Performed By: #### 2 4323-8 #### [facility] [id number] [address] [place] [address] [place] Sodium [Moles/Vol] 138 mmol/L Normal 136-144 [facility] Comment on above: Order Comment: Speci men Type: BLOOD SPECIMEN [facility] Address: [address] [place] [address] Performed By: #### 2 4323-8 #### [facility] [id number] [address] [place] [address] [place] Urea nitrogen [Mass/Vol] 58 mg/dL High 7-21 [facility] Comment on above: Order Comment: Speci men Type: BLOOD SPECIMEN [facility] Address: [address] [place] [address] Performed By: #### 2 4323-8 #### [facility] [id number] [address] [place] [address] [place] EPO SerPl-aCncon 04-20-2025 Erythropoietin (EPO) Qn 13.2 mIU/mL Normal 2.6-18.5 [facility] Comment on above: Order Comment: Speci men Type: BLOOD SPECIMENOrdering Facility: [facility] Address: [address] [place] [address] Performed By: #### 1 5061-5 ####[facility] [id number] [place] [address] [place] [facility] Ferritin [Mass/Vol] 987.0 ng/mL High 14.7-205.1 [facility] Comment on above: Order Comment: Speci men Type: BLOOD SPECIMEN [facility] Address: [address] [place] [address] Performed By: #### 5 0190-8, 2275-4, 2132-05, 2284-04 #### [facility] CLIA [id number] [address] [place] [address] [place] Folate [facility] 04-20-20 25 Folate [Mass/Vol] ng/mL Normal >4.7 [facility] Comment on above: Order Comment: Speci men Type: BLOOD SPECIMEN [facility]: [facility] Address: [address] [place] [address] Result Comment: A re sult of > 20 ng/mL is not necessarily indicative of a pathologic or treatable condition: it reflects a limitation of the test methodology. Assay reference range: 4.8 to 24.2 ng/mL. Suitable for detection of folate deficiency. Reference: Folate III (Folate III) [package insert V 1.0 Uzbek]. [facility], [place], [place]: July 2015. Performed By: #### 5 0190-8, 2275-4, 2132-05, 2284-04 #### [facility] CLIA [id number] [address] [place] [address] [place] Iron and Iron binding capaci ty panelon 04-20-2025 Iron [Mass/Vol] 104 ug/dL Normal 41-186 [facility] Comment on above: Order Comment: Speci men Type: BLOOD SPECIMEN [facility] Address: [address] [place] [address] Performed By: #### 5 0190-8, 2275-4, 9, 2284-04 #### [facility] CLIA [id number] [address] [place] [address] [place] Iron binding capacity [Mass/Vol] 342 ug/dL Normal 232-386 [facility] Comment on above: Order Comment: Speci men Type: BLOOD SPECIMEN Order[facility] Address: [address] [place] [address] Performed By: #### 5 0190-8, 4, 9, 2284-04 #### [facility] CLIA [id number] [address] [place] [address] [place] Iron/TIBC [Molar ratio] 30.4 % Normal 15.0-57.0 [facility] Comment on above: Order Comment: Speci men Type: BLOOD SPECIMEN [facility] Address: [address] [place] [address] Performed By: #### 5 0190-8, 2275-4, 2132-05, 2284-04 #### [facility] CLIA [id number] [address] [place] [address] [place] Vit B12 SerPl-mCncon 025 Cobalamin (Vitamin B12) [Mass/Vol] 840 pg/mL Normal 232-1245 [facility] Comment on above: Order Comment: Speci men Type: BLOOD SPECIMEN [facility] Address: [address] [place] [address] Performed By: #### 5 0190-8, 2275-4, 2132-05, 2284-04 #### [facility] CLIA [id number] [address] [place] [address] [place] Zinc SerPl-mCncon 04-20-2025 Zinc [Mass/Vol] 84 ug/dL Normal 60-120 [facility] Comment on above: Order Comment: Speci men Type: BLOOD SPECIMEN [facility] Address: [address] [place] [address] Result Comment: This test was developed, and its performance characteristics determined by the [facility] Department of Pathology and Laboratory Medicine. It has not been cleared or approved by the FDA. The [facility] Department of Pathology and Laboratory Medicine is regulated under CLIA as qualified to perform high-complexity testing. This test is used for clinical purposes. It should not be regarded as investigational or for research. Performed By: #### 5 763-8, COPPER #### [facility] CLIA [id number] [address] [place] [address] [place] [address] [place] KEPPRA (LEVETIRACETAM)on KEPPRA 11.2 ug/mL Normal 10.0-40.0 [facility] Comment on above: Order Comment: 516.1 Result Comment: Perf ormed at: [facility] [address] [id number] Director: Rk Petty MD, Phone: [phone] Performed By: #### L 501.2300, L500.4050, L3310.0000, L100.0500 ####[facility] [address] [employer], [place], [id number] Anion gap in Serum or Plasma Ordered By: Devendra Beverly on 04-06-2025 Anion gap [Moles/Vol] 16 mmol/L High 5-15 [facility] BUN/creatinine ratioOrdered By: Devendra Beverly on 04-06-2025 Urea nitrogen/Creatinine [Mass ratio] 12.3 mg/mg 10-20 [facility] Bilirubin, totalOrdered By: Devendra Beverly on 04-06-2025 Bilirubin [Mass/Vol] 0.24 mg/dL 0.00-1.30 [facility] CBC-Complete Blood Cnt No Di ffon 04-06-2025 Erythrocyte distribution width (RBC) [Ratio] 12.3 % Normal 11.6-14.6 [facility] Comment on above: Order Comment: 516.1 Performed By: #### L 501.2300, L500.4050, L3310.0000, L100.0500 ####[facility] [address] [place], [address] Hematocrit (Bld) [Volume fraction] 27.1 % Low 37-47 [facility] Comment on above: Order Comment: 516.1 Performed By: #### L 501.2300, L500.4050, L3310.0000, L100.0500 ####[facility] [address] [place], [address] Hemoglobin (Bld) [Mass/Vol] 8.9 g/dL Low 12.0-15.0 [facility] Comment on above: Order Comment: 516.1 Performed By: #### L 501.2300, L500.4050, L3310.0000, L100.0500 ####[facility] [address] [place], [address] MCH (RBC) [Entitic mass] 31.1 pg Normal 27.0-32.0 [facility] Comment on above: Order Comment: 516.1 Performed By: #### L 501.2300, L500.4050, L3310.0000, L100.0500 ####[facility] [address] [place], [address] MCHC (RBC) [Mass/Vol] 32.8 g/dL Normal 32-36 [facility] Comment on above: Order Comment: 516.1 Performed By: #### L 501.2300, L500.4050, L3310.0000, L100.0500 ####[facility] [address] [place], [address] MCV (RBC) [Entitic vol] 94.8 fL Normal 81-99 [facility] Comment on above: Order Comment: 516.1 Performed By: #### L 501.2300, L500.4050, L3310.0000, L100.0500 ####[facility] [address] [place], [address] Platelet mean volume (Bld) [Entitic vol] 10.6 fL Normal 6.2-12.0 [facility] Comment on above: Order Comment: 516.1 Performed By: #### L 501.2300, L500.4050, L3310.0000, L100.0500 ####[facility] [address] [place], [address] Platelets (Bld) [#/Vol] 301 10*3/uL Normal 150-450 [facility] Comment on above: Order Comment: 516.1 Performed By: #### L 501.2300, L500.4050, L3310.0000, L100.0500 ####[facility] [address] [place], [address] RBC (Bld) [#/Vol] 2.86 10*6/uL Low 4.2-5.4 [facility] Comment on above: Order Comment: 516.1 Performed By: #### L 501.2300, L500.4050, L3310.0000, L100.0500 ####[facility] [address] [place], [address] RDW SD 42.8 fl Normal 35.1-43.9 [facility] Comment on above: Order Comment: 516.1 Performed By: #### L 501.2300, L500.4050, L3310.0000, L100.0500 ####[facility] [address] [place], [address] WBC (Bld) [#/Vol] 9.2 10*3/uL Normal 4.4-11.0 [facility] Comment on above: Order Comment: 516.1 Performed By: #### L 501.2300, L500.4050, L3310.0000, L100.0500 ####[facility] [address] [place], [address] Carbon dioxide, total [Moles /volume] in Central venous bloodOrdered By: Devendra Beverly on 04-06-2025 CO2 [Moles/Vol] 21.7 mmol/L 21.0-32.0 [facility] Chloride assayOrdered By: Keaton Beverly on 04-06-2025 Chloride [Moles/Vol] 103 mmol/L 98-108 [facility] Comprehensive Metabolic Prof ilon 04-06-2025 Albumin [Mass/Vol] 4.3 g/dL Normal 3.4-4.8 [facility] Comment on above: Order Comment: 516.1 Performed By: #### L 501.2300, L500.4050, L3310.0000, L100.0500 ####[facility] [address] [place], [address] Albumin/Globulin [Mass ratio] 1.8 {ratio} Normal 0.9-2.4 [facility] Comment on above: Order Comment: 516.1 Performed By: #### L 501.2300, L500.4050, L3310.0000, L100.0500 ####[facility] [address] [place], [address] ALK PHOS 83 U/L Normal 35-104 [facility] Comment on above: Order Comment: 516.1 Performed By: #### L 501.2300, L500.4050, L3310.0000, L100.0500 ####[facility] [address] [place], [address] ALT [Catalytic activity/Vol] 14 U/L Normal <=34 [facility] Comment on above: Order Comment: 516.1 Performed By: #### L 501.2300, L500.4050, L3310.0000, L100.0500 ####[facility] [address] [place], [address] AST [Catalytic activity/Vol] 18 U/L Normal <=31 [facility] Comment on above: Order Comment: 516.1 Performed By: #### L 501.2300, L500.4050, L3310.0000, L100.0500 ####[facility] [address] [place], [address] Bilirubin [Mass/Vol] 0.24 mg/dL Normal 0.00-1.30 [facility] Comment on above: Order Comment: 516.1 Performed By: #### L 501.2300, L500.4050, L3310.0000, L100.0500 ####[facility] [address] [place], [address] BUN/CRE 12.3 RATIO Normal 10-20 [facility] Comment on above: Order Comment: 516.1 Performed By: #### L 501.2300, L500.4050, L3310.0000, L100.0500 ####[facility] [address] [place], [address] Calcium [Mass/Vol] 9.5 mg/dL Normal 7.6-11.0 [facility] Comment on above: Order Comment: 516.1 Performed By: #### L 501.2300, L500.4050, L3310.0000, L100.0500 ####[facility] [address] [place], [address] Chloride [Moles/Vol] 103 mmol/L Normal 98-108 [facility] Comment on above: Order Comment: 516.1 Performed By: #### L 501.2300, L500.4050, L3310.0000, L100.0500 ####[facility] [address] [place], [address] CO2 [Moles/Vol] 21.7 mmol/L Normal 21.0-32.0 [facility] Comment on above: Order Comment: 516.1 Performed By: #### L 501.2300, L500.4050, L3310.0000, L100.0500 ####[facility] [address] [place], [address] Creatinine [Mass/Vol] 4.45 mg/dL High 0.70-1.20 [facility] Comment on above: Order Comment: 516.1 Performed By: #### L 501.2300, L500.4050, L3310.0000, L100.0500 ####[facility] [address] [place], [address] GAP 16 High 5-15 [facility] Comment on above: Order Comment: 516.1 Performed By: #### L 501.2300, L500.4050, L3310.0000, L100.0500 ####[facility] [address] [place], [address] GFR/1.73 sq M.predicted among non-blacks MDRD (S/P/Bld) [Vol rate/Area] 10 mL/min/{1.73_m2} Low >60 [facility] Comment on above: Order Comment: 516.1 Result Comment: mL/m in/1.73m2 CKD-EPI Creatinine Equation (2020) Performed By: #### L 501.2300, L500.4050, L3310.0000, L100.0500 ####[facility] [address] [place], [address] Globulin (S) [Mass/Vol] 2.3 g/dL Normal 2.2-4.2 [facility] Comment on above: Order Comment: 516.1 Performed By: #### L 501.2300, L500.4050, L3310.0000, L100.0500 ####[facility] [address] [place], [address] Glucose [Mass/Vol] 139 mg/dL High 70-99 [facility] Comment on above: Order Comment: 516.1 Performed By: #### L 501.2300, L500.4050, L3310.0000, L100.0500 ####[facility] [address] [place], [address] Potassium [Moles/Vol] 4.0 mmol/L Normal 3.3-5.1 [facility] Comment on above: Order Comment: 516.1 Performed By: #### L 501.2300, L500.4050, L3310.0000, L100.0500 ####[facility] [address] [place], [address] Sodium [Moles/Vol] 140 mmol/L Normal 133-145 [facility] Comment on above: Order Comment: 516.1 Performed By: #### L 501.2300, L500.4050, L3310.0000, L100.0500 ####[facility] [address] [place], [address] T PROT 6.6 g/dL Normal 5.9-8.4 [facility] Comment on above: Order Comment: 516.1 Performed By: #### L 501.2300, L500.4050, L3310.0000, L100.0500 ####[facility] [address] [place], [address] Urea nitrogen [Mass/Vol] 55 mg/dL High 4-19 [facility] Comment on above: Order Comment: 516.1 Performed By: #### L 501.2300, L500.4050, L3310.0000, L100.0500 ####[facility] [address] [place], [address] Erythrocyte distribution wid th ratioOrdered By: Devendra Beverly on 04-06-2025 Erythrocyte distribution width (RBC) [Ratio] 12.3 % 11.6-14.6 [facility] Erythrocyte distribution wid th standard deviationOrdered By: Devendra Beverly on 04-06-2025 Erythrocyte distribution width (RBC) [Ratio] 42.8 fl 35.1-43.9 [facility] Glomerular filtration rate ( GFR) estimation/1.73 sq m using serum, plasma, or whole bOrdered By: Devendra Beverly on 04-06-2025 GFR/1.73 sq M.predicted among non-blacks MDRD (S/P/Bld) [Vol rate/Area] 10 mL/min/{1.73_m2} Low >60 [facility] Comment on above: mL/min/1.73m2 CKD-EP I Creatinine Equation (2020) Hematocrit Auto (Bld) [Volum e fraction]Ordered By: Devendra Beverly on 04-06-2025 Hematocrit (Bld) [Volume fraction] 27.1 % Low 37-47 [facility] Hemoglobin measurementOrdere d By: Devendra Beverly on 04-06-2025 Hemoglobin (Bld) [Mass/Vol] 8.9 g/dL Low 12.0-15.0 [facility] Laboratory - Chemistry and C hemistry - challengeOrdered By: Devendra Beverly on 04-06-2025 AST [Catalytic activity/Vol] 18 U/L <32 [facility] LevetiracetamOrdered By: Tee Beverly on 04-06-2025 levETIRAcetam [Mass/Vol] 11.2 ug/mL 10.0-40.0 [facility] Comment on above: Performed at: [address] [id number] Director: Rk Petty MD, Phone: [phone] MCV (mean corpuscular volume ) determinationOrdered By: Devendra Beverly on 04-06-2025 MCV (RBC) [Entitic vol] 94.8 fL 81-99 [facility] Mean corpuscular hemoglobin (MCH) determinationOrdered By: Devendra Beverly on 04-06-2025 MCH (RBC) [Entitic mass] 31.1 pg 27.0-32.0 [facility] Mean corpuscular hemoglobin concentration (MCHC) determinationOrdered By: Devendra Beverly on 04-06-2025 MCHC (RBC) [Mass/Vol] 32.8 g/dL 32-36 [facility] Mean platelet volume determi nationOrdered By: Devendra Beverly on 04-06-2025 Platelet mean volume (Bld) [Entitic vol] 10.6 fL 6.2-12.0 [facility] Phosphoruson 04-06-2025 Phosphate [Mass/Vol] 4.7 mg/dL High 2.7-4.5 [facility] Comment on above: Order Comment: 516.1 Performed By: #### L 501.2300, L500.4050, L3310.0000, L100.0500 ####[facility] [address] [place], [address] Platelet countOrdered By: Keaton Beverly on 04-06-2025 Platelets (Bld) [#/Vol] 301 10*3/uL 150-450 [facility] Potassium measurement (mass/ volume)Ordered By: Devendra Beverly on 04-06-2025 Potassium (Unsp spec) [Mass/Vol] 4.0 mmol/L 3.3-5.1 [facility] RBC Auto (Bld) [#/Vol]Ordere d By: Devendra Beverly on 04-06-2025 RBC (Bld) [#/Vol] 2.86 10*6/uL Low 4.2-5.4 [facility] Serum creatinine measurement (mass/volume)Ordered By: Devendra Beverly on 04-06-2025 Creatinine [Mass/Vol] 4.45 mg/dL High 0.70-1.20 [facility] Serum globulin measurementOr dered By: Devendra Beverly on 04-06-2025 Globulin (S) [Mass/Vol] 2.3 g/dL 2.2-4.2 [facility] Serum glucose measurement (m ass/volume)Ordered By: Devendra Beverly on 04-06-2025 Glucose [Mass/Vol] 139 mg/dL High 70-99 [facility] Serum or plasma alanine mckeon otransferase (ALT) measurementOrdered By: Devendra Beverly on 04-06-2025 ALT [Catalytic activity/Vol] 14 U/L <35 [facility] Serum or plasma albumin yamil urement (mass/volume)Ordered By: Devendra Beverly on 04-06-2025 Albumin [Mass/Vol] 4.3 g/dL 3.4-4.8 [facility] Serum or plasma albumin/glob ulin mass ratioOrdered By: Devendra Beverly on 04-06-2025 Albumin/Globulin [Mass ratio] 1.8 {ratio} 0.9-2.4 [facility] Serum or plasma alkaline anthony sphatase measurementOrdered By: Devendra Beverly on 04-06-2025 ALP [Catalytic activity/Vol] 83 U/L 35-104 [facility] Serum or plasma calcium yamil urement (mass/volume)Ordered By: Devendra Beverly on 04-06-2025 Calcium [Mass/Vol] 9.5 mg/dL 7.6-11.0 [facility] Serum or plasma urea nitroge n measurement (mass/volume)Ordered By: Devendra Beverly on 04-06-2025 Urea nitrogen [Mass/Vol] 55 mg/dL High 4-19 [facility] Sodium levelOrdered By: Collin Beverly on 04-06-2025 Sodium [Moles/Vol] 140 mmol/L 133-145 [facility] Total proteinOrdered By: Tee Beverly on 04-06-2025 Protein [Mass/Vol] 6.6 g/dL 5.9-8.4 [facility] White blood cell (WBC) count Ordered By: Devendra Beverly on 04-06-2025 WBC (Bld) [#/Vol] 9.2 10*3/uL 4.4-11.0 [facility] Urine Cultureon 04-01-2025 URC Normal [facility] Comment on above: Performed By: #### L 400.0001, M100.2200 ####[facility] [address] [place], [address] Bilirubin Test strip Ql (U)O rdered By: Devendra Beverly on 03-30-2025 Bilirubin Ql (U) Negative Negative [facility] Ketones Test strip Ql (U)Ord ered By: Dveendra Beverly on 03-30-2025 Ketones Ql (U) Negative Negative [facility] Microscopic analysis of urin e for red blood cells (RBC)Ordered By: Devendra Beevrly on 03-30-2025 Microscopic analysis of urine for red blood cells (RBC) 0 SEEN /hpf 0-5 [facility] Mucus LM Ql (Urine sed)Order ed By: Devendra Beverly on 03-30-2025 Mucus Ql (Urine sed) 0 SEEN /hpf [facility] Nitrite Test strip Ql (U)Ord ered By: Devendra Beverly on 03-30-2025 Nitrite Ql (U) Negative Negative [facility] Protein Test strip Ql (U)Ord ered By: Devendra Beverly on 03-30-2025 Protein Ql (U) 100 mg/dl High Negative [facility] Squamous epithelial cells de tection in urine sediment by light microscopyOrdered By: Devendra Beverly on 03-30-2025 Epithelial cells.squamous LM Ql (Urine sed) 0-5 SEEN /hpf 5-10 [facility] Transitional cells detection in urine sediment by light microscopyOrdered By: Devendra Beverly on 03-30-2025 Transitional cells LM Ql (Urine sed) 0-5 SEEN /hpf 0-5 [facility] Urinalysis, Completeon 03-30 BACTERIA 1+ /hpf Normal None Seen [facility] Comment on above: Order Comment: CLEAN CATCH Performed By: #### L 400.0001, M100.2200 ####[facility] [address] [place], [address] EPI,SQUAMOUS 0-5 SEEN Normal 5-10 [facility] Comment on above: Order Comment: CLEAN CATCH Performed By: #### L 400.0001, M100.2200 ####[facility] [address], [address] WBC 25-50 SEEN Normal 0-5 [facility] Comment on above: Order Comment: CLEAN CATCH Performed By: #### L 400.0001, M100.2200 ####[facility] [address] [place], [address] EPI,TRANSITION 0-5 SEEN Normal 0-5 [facility] Comment on above: Order Comment: CLEAN CATCH Performed By: #### L 400.0001, M100.2200 ####[facility] [address] [place], [address] Mucus Ql (Urine sed) 0 SEEN Normal [facility] Comment on above: Order Comment: CLEAN CATCH Performed By: #### L 400.0001, M100.2200 ####[facility] [address] [place], [address] RBC 0 SEEN Normal 0-5 [facility] Comment on above: Order Comment: CLEAN CATCH Performed By: #### L 400.0001, M100.2200 ####[facility] [address], [address] Urine clarityOrdered By: Tee Beverly on 03-30-2025 Clarity (U) Sl. Cloudy Clear [facility] Urine color determinationOrd ered By: Devendra Beverly on 03-30-2025 Color (U) Yellow Yellow [facility] Urine cultureOrdered By: Tee Beverly on 03-30-2025 Bacteria identified Cx Nom (U) Morganella morganii sp morgani Abnormal [facility] Urine glucose detectionOrder ed By: Devendra Beverly on 03-30-2025 Glucose Ql (U) 100 mg/dl High Normal [facility] Urine leukocyte esterase det ection by dipstickOrdered By: Devendra Beverly on 03-30-2025 Leukocyte esterase Test strip Ql (U) 500 /ul High Negative [facility] Urine pHOrdered By: Devendra warren on 03-30-2025 pH (U) 7.0 [pH] 5.0 - 8.0 [facility] Urine sediment bacteria coun t by microscopy (number/high power field)Ordered By: Devendra Beverly on 03-30-2025 Bacteria LM.HPF (Urine sed) [#/Area] 1 /[HPF] None Seen [facility] Urine specific gravity measu rementOrdered By: Devendra Beverly on 03-30-2025 Specific gravity (U) [Rel density] 1.010 1.002-1.030 [facility] Urine urobilinogen measureme ntOrdered By: Devendra Beverly on 03-30-2025 Urobilinogen Ql (U) Normal mg/dl Normal [facility] White blood cell countOrdere d By: Devendra Beverly on 03-30-2025 White blood cell count 25-50 SEEN /hpf 0-5 [facility] Magnesiumon 02-12-2025 Magnesium [Mass/Vol] 2.2 mg/dL Normal 1.5-2.2 [facility] Comment on above: Performed By: #### L 501.5200 ####[facility] [address] [place], [address] Magnesium measurement (mass/ volume)Ordered By: Devendra Beverly on 02-12-2025 Magnesium (Unsp spec) [Mass/Vol] 2.2 mg/dL 1.5-2.2 [facility] Vitamin D,25 Hydroxyon 01-13 Vitamin D 25-OH 57.4 ng/mL Normal 30-100 [facility] Comment on above: Order Comment: 516-1 Result Comment: Lois min D StatusDeficiency: <20 ng/mL (50nmol/L)Insufficiency: 20-30 ng/mL (50-75 nmol/L)Sufficiency: 30-100 ng/mL (75-250 nmol/L)Toxicity: >100 ng/mL (>250 nmol/L) Performed By: #### L 506.1001 ####[facility] [address] [place], [address] Anion gap in Serum or Plasma Ordered By: Johana Landrum on 12-02-2024 Anion gap [Moles/Vol] 17 mmol/L High 5-15 [facility] BUN/creatinine ratioOrdered By: Johana Landrum on 12-02-2024 Urea nitrogen/Creatinine [Mass ratio] 13.2 mg/mg 10-20 [facility] Basic Metabolic Profile (BMP )on 12-02-2024 BUN/CRE 13.2 RATIO Normal - [facility] Comment on above: Order Comment: 516.1 Performed By: #### L 506.1001, L100.0500, L500.2500, L501.0900 ####[facility] [address] [place], [address] Calcium [Mass/Vol] 9.4 mg/dL Normal 7.6-11.0 [facility] Comment on above: Order Comment: 516.1 Performed By: #### L 506.1001, L100.0500, L500.2500, L501.0900 ####[facility] [address] [place], [address] Chloride [Moles/Vol] 105 mmol/L Normal 98-108 [facility] Comment on above: Order Comment: 516.1 Performed By: #### L 506.1001, L100.0500, L500.2500, L501.0900 ####[facility] [address] [place], [address] CO2 [Moles/Vol] 19.6 mmol/L Low 21.0-32.0 [facility] Comment on above: Order Comment: 516.1 Performed By: #### L 506.1001, L100.0500, L500.2500, L501.0900 ####[facility] [address] [place], [address] Creatinine [Mass/Vol] 3.79 mg/dL High 0.70-1.20 [facility] Comment on above: Order Comment: 516.1 Performed By: #### L 506.1001, L100.0500, L500.2500, L501.0900 ####[facility] [address] [place], [address] GAP 17 High 5-15 [facility] Comment on above: Order Comment: 516.1 Performed By: #### L 506.1001, L100.0500, L500.2500, L501.0900 ####[facility] [address] [place], [address] GFR/1.73 sq M.predicted among non-blacks MDRD (S/P/Bld) [Vol rate/Area] 12 mL/min/{1.73_m2} Low >60 [facility] Comment on above: Order Comment: 516.1 Result Comment: mL/m in/1.73m2 CKD-EPI Creatinine Equation (2020) Performed By: #### L 506.1001, L100.0500, L500.2500, L501.0900 ####[facility] [address] [place], [address] Glucose [Mass/Vol] 127 mg/dL High 70-99 [facility] Comment on above: Order Comment: 516.1 Performed By: #### L 506.1001, L100.0500, L500.2500, L501.0900 ####[facility] [address] [place], [address] Potassium [Moles/Vol] 3.7 mmol/L Normal 3.3-5.1 [facility] Comment on above: Order Comment: 516.1 Performed By: #### L 506.1001, L100.0500, L500.2500, L501.0900 ####[facility] [address] [place], [address] Sodium [Moles/Vol] 141 mmol/L Normal 133-145 [facility] Comment on above: Order Comment: 516.1 Performed By: #### L 506.1001, L100.0500, L500.2500, L501.0900 ####[facility] [address] [place], [address] Urea nitrogen [Mass/Vol] 50 mg/dL High 4-19 [facility] Comment on above: Order Comment: 516.1 Performed By: #### L 506.1001, L100.0500, L500.2500, L501.0900 ####[facility] [address] [place], [address] CBC-Complete Blood Cnt No Di ffon 12-02-2024 Erythrocyte distribution width (RBC) [Ratio] 11.9 % Normal 11.6-14.6 [facility] Comment on above: Order Comment: 516.1 Performed By: #### L 506.1001, L100.0500, L500.2500, L501.0900 ####[facility] [address] [place], [address] Hematocrit (Bld) [Volume fraction] 28.2 % Low 37-47 [facility] Comment on above: Order Comment: 516.1 Performed By: #### L 506.1001, L100.0500, L500.2500, L501.0900 ####[facility] [address] [place], [address] Hemoglobin (Bld) [Mass/Vol] 9.8 g/dL Low 12.0-15.0 [facility] Comment on above: Order Comment: 516.1 Performed By: #### L 506.1001, L100.0500, L500.2500, L501.0900 ####[facility] [address] [place], [address] MCH (RBC) [Entitic mass] 32.1 pg High 27.0-32.0 [facility] Comment on above: Order Comment: 516.1 Performed By: #### L 506.1001, L100.0500, L500.2500, L501.0900 ####[facility] [address] [place], [address] MCHC (RBC) [Mass/Vol] 34.8 g/dL Normal 32-36 [facility] Comment on above: Order Comment: 516.1 Performed By: #### L 506.1001, L100.0500, L500.2500, L501.0900 ####[facility] [address] [place], [address] MCV (RBC) [Entitic vol] 92.5 fL Normal 81-99 [facility] Comment on above: Order Comment: 516.1 Performed By: #### L 506.1001, L100.0500, L500.2500, L501.0900 ####[facility] [address] [place], [address] Platelet mean volume (Bld) [Entitic vol] 10.3 fL Normal 6.2-12.0 [facility] Comment on above: Order Comment: 516.1 Performed By: #### L 506.1001, L100.0500, L500.2500, L501.0900 ####[facility] [address] [place], [address] Platelets (Bld) [#/Vol] 341 10*3/uL Normal 150-450 [facility] Comment on above: Order Comment: 516.1 Performed By: #### L 506.1001, L100.0500, L500.2500, L501.0900 ####[facility] [address] [place], [address] RBC (Bld) [#/Vol] 3.05 10*6/uL Low 4.2-5.4 [facility] Comment on above: Order Comment: 516.1 Performed By: #### L 506.1001, L100.0500, L500.2500, L501.0900 ####[facility] [address] [place], [address] RDW SD 39.9 fl Normal 35.1-43.9 [facility] Comment on above: Order Comment: 516.1 Performed By: #### L 506.1001, L100.0500, L500.2500, L501.0900 ####[facility] [address] [place], [address] WBC (Bld) [#/Vol] 10.2 10*3/uL Normal 4.4-11.0 [facility] Comment on above: Order Comment: 516.1 Performed By: #### L 506.1001, L100.0500, L500.2500, L501.0900 ####[facility] [address] [place], [address] Carbon dioxide, total [Moles /volume] in Central venous bloodOrdered By: Johana Landrum on 12-02-2024 CO2 [Moles/Vol] 19.6 mmol/L Low 21.0-32.0 [facility] Chloride assayOrdered By: Jake Landrum on 12-02-2024 Chloride [Moles/Vol] 105 mmol/L 98-108 [facility] Creatinine Unsp time (U) [Ma ss/Vol]Ordered By: Johana Landrum on 12-02-2024 Creatinine (U) [Mass/Vol] 48.90 mg/dL 28.00-217.0 0 [facility] Erythrocyte distribution wid th (RBC) [Ratio]Ordered By: Johana Landrum on 12-02-2024 Erythrocyte distribution width (RBC) [Entitic vol] 39.9 fL 35.1-43.9 [facility] Erythrocyte distribution wid th ratioOrdered By: Johana Landrum on 12-02-2024 Erythrocyte distribution width (RBC) [Ratio] 11.9 % 11.6-14.6 [facility] Erythrocyte distribution wid th standard deviationOrdered By: Johanajosé manuel Landrum on 12-02-2024 Erythrocyte distribution width (RBC) [Ratio] 39.9 fl 35.1-43.9 [facility] GFR/1.73 sq M.predicted sharif g non-blacks MDRD (S/P/Bld) [Vol rate/Area]Ordered By: Johana Landrum on 12-02-2024 Estimated GFR (MDRD) Non-Af Amer 12 Low >60 [facility] Comment on above: mL/min/1.73m2 CKD-EP I Creatinine Equation (2020) Glomerular filtration rate ( GFR) estimation/1.73 sq m using serum, plasma, or whole bOrdered By: Johana Landrum on 12-02-2024 GFR/1.73 sq M.predicted among non-blacks MDRD (S/P/Bld) [Vol rate/Area] 12 mL/min/{1.73_m2} Low >60 [facility] Comment on above: mL/min/1.73m2 CKD-EP I Creatinine Equation (2020) Hematocrit Auto (Bld) [Volum e fraction]Ordered By: Johana Landrum on 12-02-2024 Hematocrit (Bld) [Volume fraction] 28.2 % Low 37-47 [facility] Hemoglobin measurementOrdere d By: Johana Landrum on 12-02-2024 Hemoglobin (Bld) [Mass/Vol] 9.8 g/dL Low 12.0-15.0 [facility] L506.1001on 12-02-2024 Vitamin D 25-OH 31.9 ng/mL Normal 30-100 [facility] Comment on above: Order Comment: 516.1 Result Comment: Lois min D StatusDeficiency: <20 ng/mL (50nmol/L)Insufficiency: 20-30 ng/mL (50-75 nmol/L)Sufficiency: 30-100 ng/mL (75-250 nmol/L)Toxicity: >100 ng/mL (>250 nmol/L) Performed By: #### L 506.1001, L100.0500, L500.2500, L501.0900 ####[facility] [address] [place], [place], [id number] MCV (mean corpuscular volume ) determinationOrdered By: Johana Landrum on 12-02-2024 MCV (RBC) [Entitic vol] 92.5 fL 81-99 [facility] Mean corpuscular hemoglobin (MCH) determinationOrdered By: Johana Landrum on 12-02-2024 MCH (RBC) [Entitic mass] 32.1 pg High 27.0-32.0 [facility] Mean corpuscular hemoglobin concentration (MCHC) determinationOrdered By: Johana Landrum on 12-02-2024 MCHC (RBC) [Mass/Vol] 34.8 g/dL 32-36 [facility] Mean platelet volume determi nationOrdered By: Johana Landrum on 12-02-2024 Platelet mean volume (Bld) [Entitic vol] 10.3 fL 6.2-12.0 [facility] Platelet countOrdered By: Jake Landrum on 12-02-2024 Platelets (Bld) [#/Vol] 341 10*3/uL 150-450 [facility] Potassium (Unsp spec) [Mass/ Vol]Ordered By: Johana Landrum on 12-02-2024 Potassium [Moles/Vol] 3.7 mmol/L 3.3-5.1 [facility] Potassium measurement (mass/ volume)Ordered By: Johana Landrum on 12-02-2024 Potassium (Unsp spec) [Mass/Vol] 3.7 mmol/L 3.3-5.1 [facility] Protein+Creatinine Ratio,Uri neon 12-02-2024 PROT:CRE RATIO 1973 mg/g CRE High 0-200 [facility] Comment on above: Performed By: #### L 506.1001, L100.0500, L500.2500, L501.0900 ####[facility] [address] [place], [address] Protein (U) [Mass/Vol] 96.5 mg/dL High 0.0-12.0 [facility] Comment on above: Performed By: #### L 506.1001, L100.0500, L500.2500, L501.0900 ####[facility] [address] [place], [address] UR CREAT 48.90 mg/dL Normal 28.00-217.0 0 [facility] Comment on above: Performed By: #### L 506.1001, L100.0500, L500.2500, L501.0900 ####[facility] [address] [place], [address] Protein/Creatinine (U) [Mass ratio]Ordered By: Johana Landrum on 12-02-2024 Urine Protein/Creatinine Ratio 1973 mg/g CRE High 0-200 [facility] RBC Auto (Bld) [#/Vol]Ordere d By: Johana Landrum on 12-02-2024 RBC (Bld) [#/Vol] 3.05 10*6/uL Low 4.2-5.4 [facility] Random urine creatinine yamil urement (mass/volume)Ordered By: Johana Landrum on 12-02-2024 Creatinine Unsp time (U) [Mass/Vol] 48.90 mg/dL 28.00-217.0 0 [facility] Serum creatinine measurement (mass/volume)Ordered By: Johana Landrum on 12-02-2024 Creatinine [Mass/Vol] 3.79 mg/dL High 0.70-1.20 [facility] Serum glucose measurement (m ass/volume)Ordered By: Johana Landrum on 12-02-2024 Glucose [Mass/Vol] 127 mg/dL High 70-99 [facility] Serum or plasma calcium yamil urement (mass/volume)Ordered By: Johana Landrum on 12-02-2024 Calcium [Mass/Vol] 9.4 mg/dL 7.6-11.0 [facility] Serum or plasma urea nitroge n measurement (mass/volume)Ordered By: Johana Landrum on 12-02-2024 Urea nitrogen [Mass/Vol] 50 mg/dL High 4-19 [facility] Sodium levelOrdered By: Doris Landrum on 12-02-2024 Sodium [Moles/Vol] 141 mmol/L 133-145 [facility] Urine protein measurement (m ass/volume)Ordered By: Johana Landrum on 12-02-2024 Protein (U) [Mass/Vol] 96.5 mg/dL High 0.0-12.0 [facility] Urine protein/creatinine mas s ratioOrdered By: Johana Landrum on 12-02-2024 Protein/Creatinine (U) [Mass ratio] 1973 mg/g CRE High 0-200 [facility] Vitamin D, 25-hydroxyOrdered By: Johana Landrum on 12-02-2024 Vitamin D 25-Hydroxy 31.9 ng/mL 30-100 [facility] Comment on above: Vitamin D StatusDefi ciency: <20 ng/mL (50nmol/L)Insufficiency: 20-30 ng/mL (50-75 nmol/L)Sufficiency: 30-100 ng/mL (75-250 nmol/L)Toxicity: >100 ng/mL (>250 nmol/L) White blood cell (WBC) count Ordered By: Johana Landrum on 12-02-2024 WBC (Bld) [#/Vol] 10.2 10*3/uL 4.4-11.0 [facility] Absolute lymphocyte countOrd ered By: Johana Landrum on 11-30-2024 Lymphocytes Auto (Unsp spec) [#/Vol] 2.30 10*3/uL 0.83-4.51 [facility] Absolute neutrophil countOrd ered By: Johanajosé manuel Landrum on 11-30-2024 Neutrophils (Bld) [#/Vol] 6.5 10*3/uL 2.0-7.7 [facility] Anion gap in Serum or Plasma Ordered By: Johana Landrum on 11-30-2024 Anion gap [Moles/Vol] 17 mmol/L High 5-15 [facility] Automated lymphocyte count a s percentage of total leukocytesOrdered By: Johana Landrum on 11-30-2024 Lymphocytes/100 WBC Auto (Unsp spec) 22.4 % 19-41 [facility] BUN/creatinine ratioOrdered By: Johanajosé manuel Landrum on 11-30-2024 Urea nitrogen/Creatinine [Mass ratio] 12.9 mg/mg 10-20 [facility] Basophil percentageOrdered B y: Johana Landrum on 11-30-2024 Basophils/100 WBC (Bld) 0.7 % 0-1 [facility] Bilirubin, totalOrdered By: Johana Landrum on 11-30-2024 Bilirubin [Mass/Vol] 0.18 mg/dL 0.00-1.30 [facility] CBC W/Diff, Automatedon 11-02 Absolute Lymph 2.30 X10 3/uL Normal 0.83-4.51 [facility] Comment on above: Order Comment: 516.1 Performed By: #### L 500.4050, L501.5200, L100.0100 ####[facility] [address] [employer], [place], [id number] Absolute Neut 6.5 X10 3/uL Normal 2.0-7.7 [facility] Comment on above: Order Comment: 516.1 Performed By: #### L 500.4050, L501.5200, L100.0100 ####[facility] [address] [place], [address] Basophils/100 WBC (Bld) 0.7 % Normal 0-1 [facility] Comment on above: Order Comment: 516.1 Performed By: #### L 500.4050, L501.5200, L100.0100 ####[facility] [address] [place], [address] Eosinophils/100 WBC (Bld) 3.4 % Normal 0-5 [facility] Comment on above: Order Comment: 516.1 Performed By: #### L 500.4050, L501.5200, L100.0100 ####[facility] [address] [place], [address] Erythrocyte distribution width (RBC) [Ratio] 11.9 % Normal 11.6-14.6 [facility] Comment on above: Order Comment: 516.1 Performed By: #### L 500.4050, L501.5200, L100.0100 ####[facility] [address] [place], [address] Hematocrit (Bld) [Volume fraction] 28.3 % Low 37-47 [facility] Comment on above: Order Comment: 516.1 Performed By: #### L 500.4050, L501.5200, L100.0100 ####[facility] [address] [place], [address] Hemoglobin (Bld) [Mass/Vol] 9.5 g/dL Low 12.0-15.0 [facility] Comment on above: Order Comment: 516.1 Performed By: #### L 500.4050, L501.5200, L100.0100 ####[facility] [address] [place], [address] IG% 1.000 High 0.0-0.9 [facility] Comment on above: Order Comment: 516.1 Result Comment: IG% - Immature Granulocytes (promyelocytes, myelocytes andmetamyelocytes) > 1% indicates that a LEFT SHIFT is Present. Performed By: #### L 500.4050, L501.5200, L100.0100 ####[facility] [address] [place], [address] Lymphocytes/100 WBC (Bld) 22.4 % Normal 19-41 [facility] Comment on above: Order Comment: 516.1 Performed By: #### L 500.4050, L501.5200, L100.0100 ####[facility] [address] [place], [address] MCH (RBC) [Entitic mass] 31.1 pg Normal 27.0-32.0 [facility] Comment on above: Order Comment: 516.1 Performed By: #### L 500.4050, L501.5200, L100.0100 ####[facility] [address] [place], [address] MCHC (RBC) [Mass/Vol] 33.6 g/dL Normal 32-36 [facility] Comment on above: Order Comment: 516.1 Performed By: #### L 500.4050, L501.5200, L100.0100 ####[facility] [address] [place], [address] MCV (RBC) [Entitic vol] 92.8 fL Normal 81-99 [facility] Comment on above: Order Comment: 516.1 Performed By: #### L 500.4050, L501.5200, L100.0100 ####[facility] [address] [place], [address] Monocytes/100 WBC (Bld) 9.5 % Normal 0-10 [facility] Comment on above: Order Comment: 516.1 Performed By: #### L 500.4050, L501.5200, L100.0100 ####[facility] [address] [place], [address] Neutrophils/100 WBC (Bld) 63.0 % Normal 47-70 [facility] Comment on above: Order Comment: 516.1 Performed By: #### L 500.4050, L501.5200, L100.0100 ####[facility] [address] [place], [address] Nucleated RBC (Bld) [#/Vol] 0 10*3/uL Normal 0-5 [facility] Comment on above: Order Comment: 516.1 Performed By: #### L 500.4050, L501.5200, L100.0100 ####[facility] [address] [place], [address] Platelet mean volume (Bld) [Entitic vol] 10.1 fL Normal 6.2-12.0 [facility] Comment on above: Order Comment: 516.1 Performed By: #### L 500.4050, L501.5200, L100.0100 ####[facility] [address] [place], [address] Platelets (Bld) [#/Vol] 335 10*3/uL Normal 150-450 [facility] Comment on above: Order Comment: 516.1 Performed By: #### L 500.4050, L501.5200, L100.0100 ####[facility] [address] [place], [address] RBC (Bld) [#/Vol] 3.05 10*6/uL Low 4.2-5.4 [facility] Comment on above: Order Comment: 516.1 Performed By: #### L 500.4050, L501.5200, L100.0100 ####[facility] [address] [place], [address] RDW SD 40.1 fl Normal 35.1-43.9 [facility] [facility] Comment on above: Order Comment: 516.1 Performed By: #### L 500.4050, L501.5200, L100.0100 ####[facility] [address], [address] WBC (Bld) [#/Vol] 10.3 10*3/uL Normal 4.4-11.0 [facility] Comment on above: Order Comment: 516.1 Performed By: #### L 500.4050, L501.5200, L100.0100 ####[facility] [address], [address] Carbon dioxide, total [Moles /volume] in Central venous bloodOrdered By: Johana Landrum on 11-30-2024 CO2 [Moles/Vol] 18.2 mmol/L Low 21.0-32.0 [facility] Chloride assayOrdered By: Jake Landrum on 11-30-2024 Chloride [Moles/Vol] 105 mmol/L 98-108 [facility] Comprehensive Metabolic Prof ilon 11-30-2024 Albumin [Mass/Vol] 4.3 g/dL Normal 3.4-4.8 [facility] Comment on above: Order Comment: 516.1 Performed By: #### L 500.4050, L501.5200, L100.0100 ####[facility] [address] [place], [address] Albumin/Globulin [Mass ratio] 1.8 {ratio} Normal 0.9-2.4 [facility] Comment on above: Order Comment: 516.1 Performed By: #### L 500.4050, L501.5200, L100.0100 ####[facility] [address] [place], [address] ALK PHOS 73 U/L Normal 35-104 [facility] Comment on above: Order Comment: 516.1 Performed By: #### L 500.4050, L501.5200, L100.0100 ####[facility] [address] [place], [address] ALT [Catalytic activity/Vol] 12 U/L Normal <=34 [facility] Comment on above: Order Comment: 516.1 Performed By: #### L 500.4050, L501.5200, L100.0100 ####[facility] [address] [place], [address] AST [Catalytic activity/Vol] 17 U/L Normal <=31 [facility] Comment on above: Order Comment: 516.1 Performed By: #### L 500.4050, L501.5200, L100.0100 ####[facility] [address] [place], [address] Bilirubin [Mass/Vol] 0.18 mg/dL Normal 0.00-1.30 [facility] Comment on above: Order Comment: 516.1 Performed By: #### L 500.4050, L501.5200, L100.0100 ####[facility] [address] [place], [address] BUN/CRE 12.9 RATIO Normal 10-20 [facility] Comment on above: Order Comment: 516.1 Performed By: #### L 500.4050, L501.5200, L100.0100 ####[facility] [address] [place], [address] Calcium [Mass/Vol] 9.6 mg/dL Normal 7.6-11.0 [facility] Comment on above: Order Comment: 516.1 Performed By: #### L 500.4050, L501.5200, L100.0100 ####[facility] [address] [place], [address] Chloride [Moles/Vol] 105 mmol/L Normal 98-108 [facility] Comment on above: Order Comment: 516.1 Performed By: #### L 500.4050, L501.5200, L100.0100 ####[facility] [address] [place], [address] CO2 [Moles/Vol] 18.2 mmol/L Low 21.0-32.0 [facility] Comment on above: Order Comment: 516.1 Performed By: #### L 500.4050, L501.5200, L100.0100 ####[facility] [address] [place], [address] Creatinine [Mass/Vol] 3.82 mg/dL High 0.70-1.20 [facility] Comment on above: Order Comment: 516.1 Performed By: #### L 500.4050, L501.5200, L100.0100 ####[facility] [address] [place], [address] GAP 17 High 5-15 [facility] Comment on above: Order Comment: 516.1 Performed By: #### L 500.4050, L501.5200, L100.0100 ####[facility] [address] [place], [address] GFR/1.73 sq M.predicted among non-blacks MDRD (S/P/Bld) [Vol rate/Area] 12 mL/min/{1.73_m2} Low >60 [facility] Comment on above: Order Comment: 516.1 Result Comment: mL/m in/1.73m2 CKD-EPI Creatinine Equation (2020) Performed By: #### L 500.4050, L501.5200, L100.0100 ####[facility] [address] [place], [address] Globulin (S) [Mass/Vol] 2.4 g/dL Normal 2.2-4.2 [facility] Comment on above: Order Comment: 516.1 Performed By: #### L 500.4050, L501.5200, L100.0100 ####[facility] [address] [place], [address] Glucose [Mass/Vol] 93 mg/dL Normal 70-99 [facility] Comment on above: Order Comment: 516.1 Performed By: #### L 500.4050, L501.5200, L100.0100 ####[facility] [address] [place], [address] Potassium [Moles/Vol] 3.7 mmol/L Normal 3.3-5.1 [facility] Comment on above: Order Comment: 516.1 Performed By: #### L 500.4050, L501.5200, L100.0100 ####[facility] [address] [place], [address] Sodium [Moles/Vol] 140 mmol/L Normal 133-145 [facility] Comment on above: Order Comment: 516.1 Performed By: #### L 500.4050, L501.5200, L100.0100 ####[facility] [address] [place], [address] T PROT 6.7 g/dL Normal 5.9-8.4 [facility] Comment on above: Order Comment: 516.1 Performed By: #### L 500.4050, L501.5200, L100.0100 ####[facility] [address] [place], [address] Urea nitrogen [Mass/Vol] 49 mg/dL High 4-19 [facility] Comment on above: Order Comment: 516.1 Performed By: #### L 500.4050, L501.5200, L100.0100 ####[facility] [address] [place], [address] Eosinophil percentageOrdered By: Johana Landrum on 11-30-2024 Eosinophils/100 WBC (Bld) 3.4 % 0-5 [facility] Erythrocyte distribution wid th (RBC) [Ratio]Ordered By: Johana Landrum on 11-30-2024 Erythrocyte distribution width (RBC) [Entitic vol] 40.1 fL 35.1-43.9 [facility] Erythrocyte distribution wid th ratioOrdered By: Johana Landrum on 11-30-2024 Erythrocyte distribution width (RBC) [Ratio] 11.9 % 11.6-14.6 [facility] Erythrocyte distribution wid th standard deviationOrdered By: Johana Landrum on 11-30-2024 Erythrocyte distribution width (RBC) [Ratio] 40.1 fl 35.1-43.9 [facility] GFR/1.73 sq M.predicted sharif g non-blacks MDRD (S/P/Bld) [Vol rate/Area]Ordered By: Johana Landrum on 11-30-2024 Estimated GFR (MDRD) Non-Af Amer 12 Low >60 [facility] Comment on above: mL/min/1.73m2 CKD-EP I Creatinine Equation (2020) Glomerular filtration rate ( GFR) estimation/1.73 sq m using serum, plasma, or whole bOrdered By: Johana Landrum on 11-30-2024 GFR/1.73 sq M.predicted among non-blacks MDRD (S/P/Bld) [Vol rate/Area] 12 mL/min/{1.73_m2} Low >60 [facility] Comment on above: mL/min/1.73m2 CKD-EP I Creatinine Equation (2020) Hematocrit Auto (Bld) [Volum e fraction]Ordered By: Johana Landrum on 11-30-2024 Hematocrit (Bld) [Volume fraction] 28.3 % Low 37-47 [facility] Hemoglobin measurementOrdere d By: Johana Landrum on 11-30-2024 Hemoglobin (Bld) [Mass/Vol] 9.5 g/dL Low 12.0-15.0 [facility] Immature granulocytes/100 WB C Auto (Bld)Ordered By: Johana Landrum on 11-30-2024 Immature granulocytes/100 WBC (Bld) 1.000 % High 0.0-0.9 [facility] Comment on above: IG% - Immature Granu locytes (promyelocytes, myelocytes and metamyelocytes) > 1% indicates that a LEFT SHIFT is Present. Laboratory - Chemistry and C hemistry - challengeOrdered By: Johana Landrum on 11-30-2024 AST [Catalytic activity/Vol] 17 U/L <32 [facility] Lymphocytes Auto (Unsp spec) [#/Vol]Ordered By: Johanajosé manuel Landrum on 11-30-2024 Lymphocytes (Bld) [#/Vol] 2.30 10*3/uL 0.83-4.51 [facility] Lymphocytes/100 WBC Auto (Un sp spec)Ordered By: Johana Landrum on 11-30-2024 Lymphocytes/100 WBC (Bld) 22.4 % 19-41 [facility] MCV (mean corpuscular volume ) determinationOrdered By: Johana Landrum on 11-30-2024 MCV (RBC) [Entitic vol] 92.8 fL 81-99 [facility] Magnesiumon 11-30-2024 Magnesium [Mass/Vol] 2.1 mg/dL Normal 1.5-2.2 [facility] Comment on above: Order Comment: 516.1 Performed By: #### L 500.4050, L501.5200, L100.0100 ####[facility] [address] [place], [place], [address] Magnesium (Unsp spec) [Mass/ Vol]Ordered By: Johana Landrum on 11-30-2024 Magnesium [Mass/Vol] 2.1 mg/dL 1.5-2.2 [facility] Magnesium measurement (mass/ volume)Ordered By: Johana Landrum on 11-30-2024 Magnesium (Unsp spec) [Mass/Vol] 2.1 mg/dL 1.5-2.2 [facility] Mean corpuscular hemoglobin (MCH) determinationOrdered By: Johana Landrum on 11-30-2024 MCH (RBC) [Entitic mass] 31.1 pg 27.0-32.0 [facility] Mean corpuscular hemoglobin concentration (MCHC) determinationOrdered By: Johana Landrum on 11-30-2024 MCHC (RBC) [Mass/Vol] 33.6 g/dL 32-36 [facility] Mean platelet volume determi nationOrdered By: Johana Landrum on 11-30-2024 Platelet mean volume (Bld) [Entitic vol] 10.1 fL 6.2-12.0 [facility] Monocyte percentageOrdered B y: Johana Landrum on 11-30-2024 Monocytes/100 WBC (Bld) 9.5 % 0-10 [facility] Neutrophil percentageOrdered By: Johana Landrum on 11-30-2024 Neutrophils/100 WBC (Bld) 63.0 % 47-70 [facility] Nucleated red blood cell per centageOrdered By: Johana Landrum on 11-30-2024 Nucleated RBC/100 WBC (Bld) [Ratio] 0 % 0-5 [facility] Platelet countOrdered By: Jake Landrum on 11-30-2024 Platelets (Bld) [#/Vol] 335 10*3/uL 150-450 [facility] Potassium (Unsp spec) [Mass/ Vol]Ordered By: Johana Landrum on 11-30-2024 Potassium [Moles/Vol] 3.7 mmol/L 3.3-5.1 [facility] Potassium measurement (mass/ volume)Ordered By: Johana Landrum on 11-30-2024 Potassium (Unsp spec) [Mass/Vol] 3.7 mmol/L 3.3-5.1 [facility] RBC Auto (Bld) [#/Vol]Ordere d By: Johana Landrum on 11-30-2024 RBC (Bld) [#/Vol] 3.05 10*6/uL Low 4.2-5.4 [facility] Serum creatinine measurement (mass/volume)Ordered By: Johana Landrum on 11-30-2024 Creatinine [Mass/Vol] 3.82 mg/dL High 0.70-1.20 [facility] Serum globulin measurementOr dered By: Johana Landrum on 11-30-2024 Globulin (S) [Mass/Vol] 2.4 g/dL 2.2-4.2 [facility] Serum glucose measurement (m ass/volume)Ordered By: Johana Landrum on 11-30-2024 Glucose [Mass/Vol] 93 mg/dL 70-99 [facility] Serum or plasma alanine mckeon otransferase (ALT) measurementOrdered By: Johana Landrum on 11-30-2024 ALT [Catalytic activity/Vol] 12 U/L <35 [facility] Serum or plasma albumin yamil urement (mass/volume)Ordered By: Johana Landrum on 11-30-2024 Albumin [Mass/Vol] 4.3 g/dL 3.4-4.8 [facility] Serum or plasma albumin/glob ulin mass ratioOrdered By: Johana Landrum on 11-30-2024 Albumin/Globulin [Mass ratio] 1.8 {ratio} 0.9-2.4 [facility] Serum or plasma alkaline anthony sphatase measurementOrdered By: Johana Landrum on 11-30-2024 ALP [Catalytic activity/Vol] 73 U/L 35-104 [facility] Serum or plasma calcium yamil urement (mass/volume)Ordered By: Johana Landrum on 11-30-2024 Calcium [Mass/Vol] 9.6 mg/dL 7.6-11.0 [facility] Serum or plasma urea nitroge n measurement (mass/volume)Ordered By: Johana Landrum on 11-30-2024 Urea nitrogen [Mass/Vol] 49 mg/dL High 4-19 [facility] Sodium levelOrdered By: Doris Landrum on 11-30-2024 Sodium [Moles/Vol] 140 mmol/L 133-145 [facility] Total proteinOrdered By: Daisy Landrum on 11-30-2024 Protein [Mass/Vol] 6.7 g/dL 5.9-8.4 [facility] White blood cell (WBC) count Ordered By: Johana Landrum on 11-30-2024 WBC (Bld) [#/Vol] 10.3 10*3/uL 4.4-11.0 [facility] Urine Cultureon 09-24-2024 URC Normal [facility] Comment on above: Performed By: #### M 100.2200, L400.0001 ####[facility] [address] [place], [address] Bilirubin Test strip Ql (U)O rdered By: Johana Landrum on 09-21-2024 Bilirubin Ql (U) Negative Negative [facility] Epithelial cells.squamous LM Ql (Urine sed)Ordered By: Johana Landrum on 09-21-2024 Epithelial cells.squamous LM.HPF (Urine sed) [#/Area] 0 /[HPF] 5-10 [facility] Glucose Ql (U)Ordered By: Jake Landrum on 09-21-2024 Glucose (U) [Mass/Vol] 50 mg/dL High Normal [facility] Ketones Test strip Ql (U)Ord ered By: Johana Landrum on 09-21-2024 Ketones Ql (U) Negative Negative [facility] Microscopic analysis of urin e for red blood cells (RBC)Ordered By: Johana Landrum on 09-21-2024 Urine RBC 0 SEEN /hpf 0-5 [facility] Mucus LM Ql (Urine sed)Order ed By: Johana Landrum on 09-21-2024 Mucus Ql (Urine sed) 0 SEEN /hpf [facility] Nitrite Test strip Ql (U)Ord ered By: Johana Landrum on 09-21-2024 Nitrite Ql (U) Negative Negative [facility] Protein Test strip Ql (U)Ord ered By: Johana Landrum on 09-21-2024 Protein Ql (U) 100 mg/dl High Negative [facility] Urinalysis, Completeon 09-21 EPI,SQUAMOUS 0-5 SEEN Normal 5-10 [facility] Comment on above: Order Comment: CLEAN CATCH Performed By: #### M 100.2200, L400.0001 ####[facility] [address] [place], [address] WBC 25-50 SEEN Normal 0-5 [facility] Comment on above: Order Comment: CLEAN CATCH Performed By: #### M 100.2200, L400.0001 ####[facility] [address] [place], [address] BACTERIA 0 SEEN Normal None Seen [facility] Comment on above: Order Comment: CLEAN CATCH Performed By: #### M 100.2200, L400.0001 ####[facility] [address] [place], [address] Mucus Ql (Urine sed) 0 SEEN Normal [facility] Comment on above: Order Comment: CLEAN CATCH Performed By: #### M 100.2200, L400.0001 ####[facility] [address] [place], [address] RBC 0 SEEN Normal 0-5 [facility] Comment on above: Order Comment: CLEAN CATCH Performed By: #### M 100.2200, L400.0001 ####[facility] [address] [place], [address] Urine blood detectionOrdered By: Johana Landrum on 09-21-2024 Urine Occult Blood 25 /ul High Negative [facility] Urine clarityOrdered By: Daisy Landrum on 09-21-2024 Clarity (U) Sl. Cloudy Clear [facility] Urine color determinationOrd ered By: Johana Landrum on 09-21-2024 Color (U) Yellow Yellow [facility] Urine cultureOrdered By: Daisy Landrum on 09-21-2024 Bacteria identified Cx Nom (U) ESBL Escherichia coli Abnormal [facility] Urine leukocyte esterase det ection by dipstickOrdered By: Johana Landrum on 09-21-2024 Leukocyte esterase Test strip Ql (U) 500 /ul High Negative [facility] Urine pHOrdered By: Johana payton on 09-21-2024 pH (U) 6.5 [pH] 5.0 - 8.0 [facility] Urine sediment bacteria coun t by microscopy (number/high power field)Ordered By: Johana Landrum on 09-21-2024 Bacteria LM.HPF (Urine sed) [#/Area] 0 /[HPF] None Seen [facility] Urine specific gravity measu rementOrdered By: Johana Landrum on 09-21-2024 Specific gravity (U) [Rel density] 1.010 1.002-1.030 [facility] Urobilinogen Ql (U)Ordered B y: Johana Landrum on 09-21-2024 Urine Urobilinogen Normal mg/dl Normal [facility] White blood cell countOrdere d By: Johana Landrum on 09-21-2024 Urine WBC 25-50 SEEN /hpf 0-5 [facility] High density lipoprotein (HD L) measurementOrdered By: Johana Landrum on 08-31-2024 Cholesterol in HDL [Mass/Vol] 46 mg/dL >40 [facility] Comment on above: The drugs N-Acetylcy steine and Metamizole may falsely depress this assay. Reference Range HDL <40 mg/dL Low HDL Cholesterol HDL >or= 60 mg/dL High HDL Cholesterol Lipid Profileon 08-31-2024 Cholesterol [Mass/Vol] 127 mg/dL Normal 200 [facility] Comment on above: Order Comment: Result Comment: <200 mg/dL Desirable 200-240 mg/dL Borderline >240 mg/dL High Risk Performed By: #### L 500.4100 ####[facility] [address] [place], [address] Cholesterol in HDL [Mass/Vol] 46 mg/dL Normal [facility] Comment on above: Order Comment: 517- Result Comment: The drugs N-Acetylcysteine and Metamizole may falselydepress this assay. Reference Range HDL <40 mg/dL Low HDL Cholesterol HDL >or= 60 mg/dL High HDL Cholesterol Performed By: #### L 500.4100 ####[facility] [address] [place], [address] Cholesterol in LDL [Mass/Vol] 33 mg/dL Normal 0-130 [facility] Comment on above: Order Comment: 517- Performed By: #### L 500.4100 ####[facility] [address] [employer], [place], [address] Cholesterol in VLDL [Mass/Vol] 48 mg/dL High 5-40 [facility] Comment on above: Order Comment: 517- Performed By: #### L 500.4100 ####[facility] [address] [place], [address] Triglyceride [Mass/Vol] 241 mg/dL High [facility] Comment on above: Order Comment: - Result Comment: The drugs N-Acetylcysteine and Metamizole may falselydepress this assay.Serum Triglycerides Reference Interval Normal <150 mg/dL Borderline high 150 - 199 mg/dL High 200 - 499 mg/dL Very High > or = 500 mg/dL Performed By: #### L 500.4100 ####[facility] [address] [employer], [place], [address] Low density lipoprotein (LDL ) cholesterol measurementOrdered By: Johana Landrum on 08-31-2024 Cholesterol in LDL [Mass/Vol] 33 mg/dL 0-130 [facility] Serum or plasma cholesterol measurement (mass/volume)Ordered By: Johana Landrum on 08-31-2024 Cholesterol [Mass/Vol] 127 mg/dL <200 [facility] Comment on above: <200 mg/dL Desirable 200-240 mg/dL Borderline >240 mg/dL High Risk Triglycerides measurementOrd ered By: Johana Landrum on 08-31-2024 Triglyceride [Mass/Vol] 241 mg/dL High <199 [facility] Comment on above: The drugs N-Acetylcy steine and Metamizole may falsely depress this assay.Serum Triglycerides Reference Interval Normal <150 mg/dL Borderline high 150 - 199 mg/dL High 200 - 499 mg/dL Very High > or = 500 mg/dL Very low density lipoprotein (VLDL) cholesterol measurementOrdered By: Johana Landrum on 08-31-2024 VLDL Cholesterol 48 mg/dL High 5-40 [facility] Automated blood erythrocyte countOrdered By: [facility] on 08-27-2024 RBC (Bld) [#/Vol] 3.24 10*6/uL Low 4.2-5.4 [facility] Comment on above: Order Comment: 517.1 Performed By: #### L 500.2500, L100.0500 ####[facility] [address] [place], [address] Automated blood hematocrit ( percentage)Ordered By: [facility] on 08-27-2024 Hematocrit (Bld) [Volume fraction] 29.9 % Low 37-47 [facility] Comment on above: Order Comment: 517.1 Performed By: #### L 500.2500, L100.0500 ####[facility] [address] [place], [address] Basic Metabolic Profile (BMP )on 08-27-2024 BUN/CRE 17.9 RATIO Normal 10-20 [facility] Comment on above: Order Comment: 517.1 Performed By: #### L 500.2500, L100.0500 ####[facility] [address] [place], [address] CA,Total 8.9 mg/dL Normal 8.5-10.1 [facility] Comment on above: Order Comment: 517.1 Performed By: #### L 500.2500, L100.0500 ####[facility] [address] [place], [address] EST GFR - AA 17 mL/min Low >60 [facility] Comment on above: Order Comment: 517.1 Result Comment: Afri can [place] GFR Calc Performed By: #### L 500.2500, L100.0500 ####[facility] [address] [place], [address] GAP 10 Normal 5-15 [facility] Comment on above: Order Comment: 517.1 Performed By: #### L 500.2500, L100.0500 ####[facility] [address] [place], [address] GFR/1.73 sq M.predicted among non-blacks MDRD (S/P/Bld) [Vol rate/Area] 14 mL/min/{1.73_m2} Low >60 [facility] Comment on above: Order Comment: 517.1 Result Comment: Non- GFR Calc Performed By: #### L 500.2500, L100.0500 ####[facility] [address], [address] Blood urea nitrogen (BUN)/cr eatinine ratioOrdered By: [facility] on 08-27-2024 Urea nitrogen/Creatinine [Mass ratio] 17.9 mg/mg - [facility] CBC-Complete Blood Cnt No Di ffon 08-27-2024 RDW SD 46.5 fl High 35.1-43.9 [facility] Comment on above: Order Comment: 517.1 Performed By: #### L 500.2500, L100.0500 ####[facility] [address] [place], [address] Carbon dioxide measurementOr dered By: [facility] on 08-27-2024 CO2 [Moles/Vol] 22.0 mmol/L Normal 21.0-32.0 [facility] Comment on above: Order Comment: 517.1 Performed By: #### L 500.2500, L100.0500 ####[facility] [address], [address] Chloride measurementOrdered By: [facility] on 08-27-2024 Chloride [Moles/Vol] 106 mmol/L Normal 98-107 [facility] Comment on above: Order Comment: 517.1 Performed By: #### L 500.2500, L100.0500 ####[facility] [address] [place], [address] Erythrocyte distribution wid th (RBC) [Ratio]Ordered By: [facility] on 08-27-2024 Erythrocyte distribution width (RBC) [Entitic vol] 46.5 fL High 35.1-43.9 [facility] Erythrocyte distribution wid th ratioOrdered By: [facility] on 08-27-2024 Erythrocyte distribution width (RBC) [Ratio] 13.7 % Normal 11.6-14.6 [facility] Comment on above: Order Comment: 517.1 Performed By: #### L 500.2500, L100.0500 ####[facility] [address] [employer], [place], [id number] Estimated glomerular filtrat ion rate (GFR) AmericanOrdered By: [facility] on 08-27-2024 Estimated GFR (MDRD) Amer 17 mL/min Low >60 [facility] Comment on above: GFR Calc Glomerular filtration rate ( GFR) estimationOrdered By: [facility] on 08-27-2024 Estimated GFR (MDRD) Non-Af Amer 14 mL/min Low >60 [facility] Comment on above: Non- GFR Calc Glucose measurementOrdered B y: [facility] on 08-27-2024 Glucose [Mass/Vol] 122 mg/dL High 74-106 [facility] Comment on above: Fasting Glucose resu lt from 100 to 125 mg/dL suggests IMPAIRED HOMEOSTASIS per A.D.A. criteria. Order Comment: 517.1 Result Comment: Fast ing Glucose result from 100 to 125 mg/dLsuggests IMPAIRED HOMEOSTASIS per A.D.A. criteria. Performed By: #### L 500.2500, L100.0500 ####[facility] [address] [employer], [place], [address] Hemoglobin measurementOrdere d By: [facility] on 08-27-2024 Hemoglobin (Bld) [Mass/Vol] 9.7 g/dL Low 12.0-15.0 [facility] Comment on above: Order Comment: 517.1 Performed By: #### L 500.2500, L100.0500 ####[facility] [address] [place], [address] MCV (mean corpuscular volume ) determinationOrdered By: [facility] on 08-27-2024 MCV (RBC) [Entitic vol] 92.3 fL Normal 81-99 [facility] Comment on above: Order Comment: 517.1 Performed By: #### L 500.2500, L100.0500 ####[facility] [address] [place], [address] Mean corpuscular hemoglobin (MCH) determinationOrdered By: [facility] on 08-27-2024 MCH (RBC) [Entitic mass] 29.9 pg Normal 27.0-32.0 [facility] Comment on above: Order Comment: 517.1 Performed By: #### L 500.2500, L100.0500 ####[facility] [address] [place], [address] Mean corpuscular hemoglobin concentration (MCHC) determinationOrdered By: [facility] on 08-27-2024 MCHC (RBC) [Mass/Vol] 32.4 g/dL Normal 32-36 [facility] Comment on above: Order Comment: 517.1 Performed By: #### L 500.2500, L100.0500 ####[facility] [address] [place], [address] Mean platelet volume determi nationOrdered By: [facility] on 08-27-2024 Platelet mean volume (Bld) [Entitic vol] 10.9 fL Normal 6.2-12.0 [facility] Comment on above: Order Comment: 517.1 Performed By: #### L 500.2500, L100.0500 ####[facility] [address] [place], [address] Platelet countOrdered By: [facility] on 08-27-2024 Platelets (Bld) [#/Vol] 292 10*3/uL Normal 150-450 [facility] Comment on above: Order Comment: 517.1 Performed By: #### L 500.2500, L100.0500 ####[facility] [address] [place], [address] Potassium measurementOrdered By: [facility] on 08-27-2024 Potassium [Moles/Vol] 3.5 mmol/L Normal 3.5-5.1 [facility] Comment on above: Order Comment: 517.1 Performed By: #### L 500.2500, L100.0500 ####[facility] [address] [place], [address] Protein+Creatinine Ratio,Uri neon 08-27-2024 PROT:CRE RATIO 3233 mg/g CRE High 0-200 [facility] Comment on above: Performed By: #### L 501.0900 ####[facility] [address] [place], [address] Protein (U) [Mass/Vol] 131.6 mg/dL High <11.9 [facility] Comment on above: Performed By: #### L 501.0900 ####[facility] [address] [place], [address] UR CREAT 40.70 mg/dL Normal NO RANGE EST. [facility] Comment on above: Performed By: #### L 501.0900 ####[facility] [address] [place], [address] Protein/Creatinine (U) [Mass ratio]Ordered By: [facility] on 08-27-2024 Urine Protein/Creatinine Ratio 3233 mg/g CRE High 0-200 [facility] Random urine protein measure mentOrdered By: [facility] on 08-27-2024 Protein (U) [Mass/Vol] 131.6 mg/dL High 0.0-11.8 [facility] Serum anion gap measurementO rdered By: [facility] on 08-27-2024 Anion gap [Moles/Vol] 10 mmol/L 5-15 [facility] Serum or plasma calcium yamil urement (mass/volume)Ordered By: [facility] on 08-27-2024 Calcium [Mass/Vol] 8.9 mg/dL 8.5-10.1 [facility] Serum or plasma creatinine m easurement (mass/volume)Ordered By: [facility] on 08-27-2024 Creatinine [Mass/Vol] 3.47 mg/dL High 0.55-1.02 [facility] Comment on above: The validity of the calculated GFR & GFRAA in patients over 70 years has not been determined. Clinical correlation is essential. Order Comment: 517.1 Result Comment: The validity of the calculated GFR GFRAA in patients over70 years has not been determined. Clinical correlation isessential. Performed By: #### L 500.2500, L100.0500 ####[facility] [address] [place], [address] Serum or plasma urea nitroge n measurement (mass/volume)Ordered By: [facility] on 08-27-2024 Urea nitrogen [Mass/Vol] 62 mg/dL High 7-18 [facility] Comment on above: Order Comment: 517.1 Performed By: #### L 500.2500, L100.0500 ####[facility] [address] [place], [address] Sodium levelOrdered By: [facility] on 08-27-2024 Sodium [Moles/Vol] 139 mmol/L Normal 136-145 [facility] Comment on above: Order Comment: 517.1 Performed By: #### L 500.2500, L100.0500 ####[facility] [address] [place], [address] Urine creatinine measurement (mass/volume)Ordered By: [facility] on 08-27-2024 Creatinine (U) [Mass/Vol] 40.70 mg/dL NO RANGE EST. [facility] White blood cell (WBC) count Ordered By: [facility] on 08-27-2024 WBC (Bld) [#/Vol] 11.3 10*3/uL High 4.4-11.0 [facility] Comment on above: Order Comment: 517.1 Performed By: #### L 500.2500, L100.0500 ####[facility] [address] [place], [address] Miscellaneous Lab Procedureo n 08-06-2024 MISC LAB TEST Normal [facility] Comment on above: Order Comment: [id number]/ CYSTATIN C/ SERUM/ [id number]/ CYSTATIN C/ SERUM/ RT Result Comment: TEST RESULTS LIMITSCystatin C 3.85 High mg/L 0.78-1.15 ___ [facility]. ORIGINAL REPORT ON FILE IN LAB CONTAINS ADDITIONAL TEST SITE INFORMATION. Performed By: #### L 801.1541 ####[facility] [address] [place], [address] 12 Lead EKGon 07-24-2024 12 Lead EKG Normal [facility] Basic Metabolic Profile (BMP )on 07-24-2024 BUN/CRE 19.3 RATIO Normal 10-20 [facility] Comment on above: Order Comment: 1Y Performed By: #### L 500.2500, L501.5425, L100.0100 ####[facility] [address] [place], [address] CA,Total 9.3 mg/dL Normal 8.5-10.1 [facility] Comment on above: Order Comment: 1Y Performed By: #### L 500.2500, L501.5425, L100.0100 ####[facility] [address] [place], [address] Chloride [Moles/Vol] 110 mmol/L High 98-107 [facility] Comment on above: Order Comment: 1Y Performed By: #### L 500.2500, L501.5425, L100.0100 ####[facility] [address] [place], [address] CO2 [Moles/Vol] 21.0 mmol/L Normal 21.0-32.0 [facility] Comment on above: Order Comment: 1Y Performed By: #### L 500.2500, L501.5425, L100.0100 ####[facility] [address] [place], [address] Creatinine [Mass/Vol] 3.58 mg/dL High 0.55-1.02 [facility] Comment on above: Order Comment: 1Y Result Comment: The validity of the calculated GFR GFRAA in patients over70 years has not been determined. Clinical correlation isessential. Performed By: #### L 500.2500, L501.5425, L100.0100 ####[facility] [address] [place], [address] ECRCL 13.16 ml/min Normal [facility] Comment on above: Order Comment: 1Y Performed By: #### L 500.2500, L501.5425, L100.0100 ####[facility] [address] [place], [address] EST GFR - AA 16 mL/min Low >60 [facility] Comment on above: Order Comment: 1Y Result Comment: Afri can [place] GFR Calc Performed By: #### L 500.2500, L501.5425, L100.0100 ####[facility] [address] [place], [address] GAP 9 Normal 5-15 [facility] Comment on above: Order Comment: 1Y Performed By: #### L 500.2500, L501.5425, L100.0100 ####[facility] [address] [place], [address] GFR/1.73 sq M.predicted among non-blacks MDRD (S/P/Bld) [Vol rate/Area] 13 mL/min/{1.73_m2} Low >60 [facility] Comment on above: Order Comment: 1Y Result Comment: Non- GFR Calc Performed By: #### L 500.2500, L501.5425, L100.0100 ####[facility] [address] [place], [address] Glucose [Mass/Vol] 103 mg/dL Normal 74-106 [facility] Comment on above: Order Comment: 1Y Result Comment: Fast ing Glucose result from 100 to 125 mg/dLsuggests IMPAIRED HOMEOSTASIS per A.D.A. criteria. Performed By: #### L 500.2500, L501.5425, L100.0100 ####[facility] [address] [place], [address] Potassium [Moles/Vol] 3.6 mmol/L Normal 3.5-5.1 [facility] Comment on above: Order Comment: 1Y Performed By: #### L 500.2500, L501.5425, L100.0100 ####[facility] [address] [place], [address] Sodium [Moles/Vol] 140 mmol/L Normal 136-145 [facility] Comment on above: Order Comment: 1Y Performed By: #### L 500.2500, L501.5425, L100.0100 ####[facility] [address] [place], [address] Urea nitrogen [Mass/Vol] 69 mg/dL High 7-18 [facility] Comment on above: Order Comment: 1Y Performed By: #### L 500.2500, L501.5425, L100.0100 ####[facility] [address] [place], [address] CBC W/Diff, Automatedon 11- Absolute Lymph 2.05 X10 3/uL Normal 0.83-4.51 [facility] Comment on above: Performed By: #### L 500.2500, L501.5425, L100.0100 ####[facility] [address] [place], [address] Absolute Neut 9.9 X10 3/uL High 2.0-7.7 [facility] Comment on above: Performed By: #### L 500.2500, L501.5425, L100.0100 ####[facility] [address] [place], [address] Basophils/100 WBC (Bld) 0.4 % Normal 0-1 [facility] Comment on above: Performed By: #### L 500.2500, L501.5425, L100.0100 ####[facility] [address] [place], [address] Eosinophils/100 WBC (Bld) 1.4 % Normal 0-5 [facility] Comment on above: Performed By: #### L 500.2500, L501.5425, L100.0100 ####[facility] [address] [place], [address] Erythrocyte distribution width (RBC) [Ratio] 14.1 % Normal 11.6-14.6 [facility] Comment on above: Performed By: #### L 500.2500, L501.5425, L100.0100 ####[facility] [address] [place], [address] Hematocrit (Bld) [Volume fraction] 32.3 % Low 37-47 [facility] Comment on above: Performed By: #### L 500.2500, L501.5425, L100.0100 ####[facility] [address] [place], [address] Hemoglobin (Bld) [Mass/Vol] 9.7 g/dL Low 12.0-15.0 [facility] Comment on above: Performed By: #### L 500.2500, L501.5425, L100.0100 ####[facility] [address] [place], [address] IG% 0.800 Normal 0.0-0.9 [facility] Comment on above: Result Comment: IG% - Immature Granulocytes (promyelocytes, myelocytes andmetamyelocytes) > 1% indicates that a LEFT SHIFT is Present. Performed By: #### L 500.2500, L501.5425, L100.0100 ####[facility] [address] [place], [address] Lymphocytes/100 WBC (Bld) 15.4 % Low 19-41 [facility] Comment on above: Performed By: #### L 500.2500, L501.5425, L100.0100 ####[facility] [address] [place], [address] MCH (RBC) [Entitic mass] 29.3 pg Normal 27.0-32.0 [facility] Comment on above: Performed By: #### L 500.2500, L501.5425, L100.0100 ####[facility] [address] [place], [address] MCHC (RBC) [Mass/Vol] 30.0 g/dL Low 32-36 [facility] Comment on above: Performed By: #### L 500.2500, L501.5425, L100.0100 ####[facility] [address] [place], [address] MCV (RBC) [Entitic vol] 97.6 fL Normal 81-99 [facility] Comment on above: Performed By: #### L 500.2500, L501.5425, L100.0100 ####[facility] [address] [place], [address] Monocytes/100 WBC (Bld) 7.7 % Normal 0-10 [facility] Comment on above: Performed By: #### L 500.2500, L501.5425, L100.0100 ####[facility] [address] [place], [address] Neutrophils/100 WBC (Bld) 74.3 % High 47-70 [facility] Comment on above: Performed By: #### L 500.2500, L501.5425, L100.0100 ####[facility] [address] [place], [address] Nucleated RBC (Bld) [#/Vol] 0 10*3/uL Normal 0-5 [facility] Comment on above: Performed By: #### L 500.2500, L501.5425, L100.0100 ####[facility] [address] [place], [address] Platelet mean volume (Bld) [Entitic vol] 11.1 fL Normal 6.2-12.0 [facility] Comment on above: Performed By: #### L 500.2500, L501.5425, L100.0100 ####[facility] [address] [place], [address] Platelets (Bld) [#/Vol] 250 10*3/uL Normal 150-450 [facility] Comment on above: Performed By: #### L 500.2500, L501.5425, L100.0100 ####[facility] [address] [place], [address] RBC (Bld) [#/Vol] 3.31 10*6/uL Low 4.2-5.4 [facility] Comment on above: Performed By: #### L 500.2500, L501.5425, L100.0100 ####[facility] [address] [place], [address] RDW SD 50.5 fl High 35.1-43.9 [facility] Comment on above: Performed By: #### L 500.2500, L501.5425, L100.0100 ####[facility] [address] [place], [address] WBC (Bld) [#/Vol] 13.3 10*3/uL High 4.4-11.0 [facility] Comment on above: Performed By: #### L 500.2500, L501.5425, L100.0100 ####[facility] [address] [place], [address] Chest PA and Lateralon 07-24 Chest PA and Lateral Normal [facility] Emergency Department Summary on 07-24-2024 Emergency Department Summary Normal [facility] L501.4020on 07-24-2024 TROPONIN-I HS 17 pg/mL Normal 3.0-54.0 [facility] Comment on above: Result Comment: Plea se Note: New Test Units and Gender Specific Reference Ranges. For more information see Policy Stat Procedure [place] High Sensitivity Troponin (TNIH) and attachments. Performed By: #### L 501.4020 ####[facility] [address] [place], [address] L501.5425on 07-24-2024 TROPONIN-I HS 15 pg/mL Normal 3.0-54.0 [facility] Comment on above: Order Comment: 1Y Result Comment: Plea se Note: New Test Units and Gender Specific Reference Ranges. For more information see Policy Stat Procedure [place] High Sensitivity Troponin (TNIH) and attachments. Performed By: #### L 500.2500, L501.5425, L100.0100 ####[facility] [address] [place], [address] Basic Metabolic Profile (BMP )on 07-23-2024 BUN Normal 7-18 [facility] Comment on above: Result Comment: Canc elled via OM: Order cancelled - Patient discharged Performed By: #### L 500.2500, L100.0100 ####[facility] [address] [place], [address] BUN/CRE Normal 10-20 [facility] Comment on above: Result Comment: Canc elled via OM: Order cancelled - Patient discharged Performed By: #### L 500.2500, L100.0100 ####[facility] [address] [place], [address] CA,Total Normal 8.5-10.1 [facility] Comment on above: Result Comment: Canc elled via OM: Order cancelled - Patient discharged Performed By: #### L 500.2500, L100.0100 ####[facility] [address] [place], [address] CL Normal 98-107 [facility] Comment on above: Result Comment: Canc elled via OM: Order cancelled - Patient discharged Performed By: #### L 500.2500, L100.0100 ####[facility] [address] [place], [address] CO2 Normal 21.0-32.0 [facility] Comment on above: Result Comment: Canc elled via OM: Order cancelled - Patient discharged Performed By: #### L 500.2500, L100.0100 ####[facility] [address] [place], [address] CREAT,SERUM Normal 0.55-1.02 [facility] Comment on above: Result Comment: Canc elled via OM: Order cancelled - Patient discharged Performed By: #### L 500.2500, L100.0100 ####[facility] [address] [place], [address] EST GFR Normal >60 [facility] Comment on above: Result Comment: Canc elled via OM: Order cancelled - Patient discharged Performed By: #### L 500.2500, L100.0100 ####[facility] [address] [place], [address] EST GFR - AA Normal >60 [facility] Comment on above: Result Comment: Canc elled via OM: Order cancelled - Patient discharged Performed By: #### L 500.2500, L100.0100 ####[facility] [address] [place], [address] GAP Normal 5-15 [facility] Comment on above: Result Comment: Canc elled via OM: Order cancelled - Patient discharged Performed By: #### L 500.2500, L100.0100 ####[facility] [address] [place], [address] GLU Normal 74-106 [facility] Comment on above: Result Comment: Canc elled via OM: Order cancelled - Patient discharged Performed By: #### L 500.2500, L100.0100 ####[facility] [address] [place], [address] Potassium Normal 3.5-5.1 [facility] Comment on above: Result Comment: Canc elled via OM: Order cancelled - Patient discharged Performed By: #### L 500.2500, L100.0100 ####[facility] [address] [place], [address] Basic Metabolic Profile (BMP) Normal 136-145 [facility] Comment on above: Result Comment: Canc elled via OM: Order cancelled - Patient discharged Performed By: #### L 500.2500, L100.0100 ####[facility] [address] [place], [address] CBC W/Diff, Automatedon 11-2 Absolute Neut Normal 2.0-7.7 [facility] Comment on above: Result Comment: Canc elled via OM: Order cancelled - Patient discharged Performed By: #### L 500.2500, L100.0100 ####[facility] [address] [place], [address] HCT Normal 37-47 [facility] Comment on above: Result Comment: Canc elled via OM: Order cancelled - Patient discharged Performed By: #### L 500.2500, L100.0100 ####[facility] [address] [place], [address] HGB Normal 12.0-15.0 [facility] Comment on above: Result Comment: Canc elled via OM: Order cancelled - Patient discharged Performed By: #### L 500.2500, L100.0100 ####[facility] [address] [place], [address] MCH Normal 27.0-32.0 [facility] Comment on above: Result Comment: Canc elled via OM: Order cancelled - Patient discharged Performed By: #### L 500.2500, L100.0100 ####[facility] [address] [place], [address] MCHC Normal 32-36 [facility] Comment on above: Result Comment: Canc elled via OM: Order cancelled - Patient discharged Performed By: #### L 500.2500, L100.0100 ####[facility] [address] [place], [address] MCV Normal 81-99 [facility] Comment on above: Result Comment: Canc elled via OM: Order cancelled - Patient discharged Performed By: #### L 500.2500, L100.0100 ####[facility] [address] [place], [address] NEUT% Normal 47-70 [facility] Comment on above: Result Comment: Canc elled via OM: Order cancelled - Patient discharged Performed By: #### L 500.2500, L100.0100 ####[facility] [address] [place], [address] PLT Normal 150-450 [facility] Comment on above: Result Comment: Canc elled via OM: Order cancelled - Patient discharged Performed By: #### L 500.2500, L100.0100 ####[facility] [address] [place], [address] RBC Normal 4.2-5.4 [facility] Comment on above: Result Comment: Canc elled via OM: Order cancelled - Patient discharged Performed By: #### L 500.2500, L100.0100 ####[facility] [address] [place], [address] RDW CV Normal 11.6-14.6 [facility] Comment on above: Result Comment: Canc elled via OM: Order cancelled - Patient discharged Performed By: #### L 500.2500, L100.0100 ####[facility] [address] [place], [address] RDW SD Normal 35.1-43.9 [facility] Comment on above: Result Comment: Canc elled via OM: Order cancelled - Patient discharged Performed By: #### L 500.2500, L100.0100 ####[facility] [address] [place], [address] WBC Normal 4.4-11.0 [facility] Comment on above: Result Comment: Canc elled via OM: Order cancelled - Patient discharged Performed By: #### L 500.2500, L100.0100 ####[facility] [address] [place], [address] CBC W/Diff, Automatedon 11-2 0-2023 Absolute Lymph 1.91 X10 3/uL Normal 0.83-4.51 [facility] Comment on above: Performed By: #### L 100.0100 ####[facility] [address] [place], [address] Absolute Neut 6.9 X10 3/uL Normal 2.0-7.7 [facility] Comment on above: Performed By: #### L 100.0100 ####[facility] [address] [place], [address] Basophils/100 WBC (Bld) 0.7 % Normal 0-1 [facility] Comment on above: Performed By: #### L 100.0100 ####[facility] [address] [place], [address] Eosinophils/100 WBC (Bld) 3.9 % Normal 0-5 [facility] Comment on above: Performed By: #### L 100.0100 ####[facility] [address] [place], [address] Erythrocyte distribution width (RBC) [Ratio] 14.4 % Normal 11.6-14.6 [facility] Comment on above: Performed By: #### L 100.0100 ####[facility] [address] [place], [address] Hematocrit (Bld) [Volume fraction] 30.3 % Low 37-47 [facility] Comment on above: Performed By: #### L 100.0100 ####[facility] [address] [place], [address] Hemoglobin (Bld) [Mass/Vol] 9.3 g/dL Low 12.0-15.0 [facility] Comment on above: Performed By: #### L 100.0100 ####[facility] [address] [place], [address] IG% 0.700 Normal 0.0-0.9 [facility] Comment on above: Result Comment: IG% - Immature Granulocytes (promyelocytes, myelocytes andmetamyelocytes) > 1% indicates that a LEFT SHIFT is Present. Performed By: #### L 100.0100 ####[facility] [address] [place], [address] Lymphocytes/100 WBC (Bld) 18.8 % Low 19-41 [facility] Comment on above: Performed By: #### L 100.0100 ####[facility] [address] [place], [address] MCH (RBC) [Entitic mass] 29.4 pg Normal 27.0-32.0 [facility] Comment on above: Performed By: #### L 100.0100 ####[facility] [address] [place], [address] MCHC (RBC) [Mass/Vol] 30.7 g/dL Low 32-36 [facility] Comment on above: Performed By: #### L 100.0100 ####[facility] [address] [place], [address] MCV (RBC) [Entitic vol] 95.9 fL Normal 81-99 [facility] Comment on above: Performed By: #### L 100.0100 ####[facility] [address] [place], [address] Monocytes/100 WBC (Bld) 7.9 % Normal 0-10 [facility] Comment on above: Performed By: #### L 100.0100 ####[facility] [address] [place], [address] Neutrophils/100 WBC (Bld) 68.0 % Normal 47-70 [facility] Comment on above: Performed By: #### L 100.0100 ####[facility] [address] [place], [address] Nucleated RBC (Bld) [#/Vol] 0 10*3/uL Normal 0-5 [facility] Comment on above: Performed By: #### L 100.0100 ####[facility] [address] [place], [address] Platelet mean volume (Bld) [Entitic vol] 10.7 fL Normal 6.2-12.0 [facility] Comment on above: Performed By: #### L 100.0100 ####[facility] [address] [place], [address] Platelets (Bld) [#/Vol] 260 10*3/uL Normal 150-450 [facility] Comment on above: Performed By: #### L 100.0100 ####[facility] [address] [place], [address] RBC (Bld) [#/Vol] 3.16 10*6/uL Low 4.2-5.4 [facility] Comment on above: Performed By: #### L 100.0100 ####[facility] [address] [place], [address] RDW SD 50.7 fl High 35.1-43.9 [facility] Comment on above: Performed By: #### L 100.0100 ####[facility] [address] [place], [address] WBC (Bld) [#/Vol] 10.2 10*3/uL Normal 4.4-11.0 [facility] Comment on above: Performed By: #### L 100.0100 ####[facility] [address] [place], [address] Cerebral Spinal Fluid Cultur mojagn 07-22-2024 CSFC No growth in 72 hours. Normal [facility] Comment on above: Performed By: #### M 100.2000, L350.1000, M100.2300, L501.1600, L200.0100, L501.0400 ####[facility] [address] [place], [address] Renal Profileon 07-22-2024 Albumin [Mass/Vol] 2.9 g/dL Low 3.2-5.0 [facility] Comment on above: Performed By: #### L 500.3600 ####[facility] [address] [place], [address] BUN/CRE 22.4 RATIO High 10-20 [facility] Comment on above: Performed By: #### L 500.3600 ####[facility] [address] [place], [address] CA,Total 8.6 mg/dL Normal 8.5-10.1 [facility] Comment on above: Performed By: #### L 500.3600 ####[facility] [address] [place], [address] Chloride [Moles/Vol] 114 mmol/L High 98-107 [facility] Comment on above: Performed By: #### L 500.3600 ####[facility] [address] [place], [address] CO2 [Moles/Vol] 19.0 mmol/L Low 21.0-32.0 [facility] Comment on above: Performed By: #### L 500.3600 ####[facility] [address] [place], [address] Creatinine [Mass/Vol] 3.84 mg/dL High 0.55-1.02 [facility] Comment on above: Result Comment: The validity of the calculated GFR GFRAA in patients over70 years has not been determined. Clinical correlation isessential. Performed By: #### L 500.3600 ####[facility] [address] [place] [place], [address] ECRCL 12.18 ml/min Normal [facility] Comment on above: Performed By: #### L 500.3600 ####[facility] [address], [address] EST GFR - AA 15 mL/min Low >60 [facility] Comment on above: Result Comment: Afri can [place] GFR Calc Performed By: #### L 500.3600 ####[facility] [address] [place], [address] GFR/1.73 sq M.predicted among non-blacks MDRD (S/P/Bld) [Vol rate/Area] 12 mL/min/{1.73_m2} Low >60 [facility] Comment on above: Result Comment: Non- GFR Calc Performed By: #### L 500.3600 ####[facility] [address] [place], [address] Glucose [Mass/Vol] 100 mg/dL Normal 74-106 [facility] Comment on above: Result Comment: Fast ing Glucose result from 100 to 125 mg/dLsuggests IMPAIRED HOMEOSTASIS per A.D.A. criteria. Performed By: #### L 500.3600 ####[facility] [address] [place], [address] Phosphate [Mass/Vol] 6.2 mg/dL High 2.5-4.9 [facility] Comment on above: Performed By: #### L 500.3600 ####[facility] [address] [place], [address] Potassium [Moles/Vol] 3.9 mmol/L Normal 3.5-5.1 [facility] Comment on above: Performed By: #### L 500.3600 ####[facility] [address] [place], [address] Sodium [Moles/Vol] 142 mmol/L Normal 136-145 [facility] Comment on above: Performed By: #### L 500.3600 ####[facility] [address] [place], [address] Urea nitrogen [Mass/Vol] 86 mg/dL High 7-18 [facility] Comment on above: Performed By: #### L 500.3600 ####[facility] [address] [place], [address] Spinal Fluid Cell Count+Diff on 07-22-2024 PATH REV May follow Normal [facility] Comment on above: Order Comment: Speci men Source? spinal fluid Result Comment: NO E VIDENCE OF MALIGNANCY.KATHLEEN KRAFT MD 07/22/2024 AMENDED REPORT 07/22/24 0830 PATH REV previously reported as: May follow Performed By: #### M 100.2000, L350.1000, M100.2300, L501.1600, L200.0100, L501.0400 ####[facility] [address] [place], [address] Consultation - Nephrologyon 07-21-2024 Consultation - Nephrology Normal [facility] Renal Profileon 07-21-2024 Albumin [Mass/Vol] 3.1 g/dL Low 3.2-5.0 [facility] Comment on above: Performed By: #### L 500.3600 ####[facility] [address] [place], [address] BUN/CRE 21.4 RATIO High 10-20 [facility] Comment on above: Performed By: #### L 500.3600 ####[facility] [address] [place], [address] CA,Total 8.7 mg/dL Normal 8.5-10.1 [facility] Comment on above: Performed By: #### L 500.3600 ####[facility] [address] [place], [address] Chloride [Moles/Vol] 110 mmol/L High 98-107 [facility] Comment on above: Performed By: #### L 500.3600 ####[facility] [address] [place], [address] CO2 [Moles/Vol] 17.0 mmol/L Low 21.0-32.0 [facility] Comment on above: Performed By: #### L 500.3600 ####[facility] [address] [place], [address] Creatinine [Mass/Vol] 4.21 mg/dL High 0.55-1.02 [facility] Comment on above: Result Comment: The validity of the calculated GFR GFRAA in patients over70 years has not been determined. Clinical correlation isessential. Performed By: #### L 500.3600 ####[facility] [address] [place], [address] ECRCL 11.11 ml/min Normal [facility] Comment on above: Performed By: #### L 500.3600 ####[facility] [address] [place], [address] EST GFR - AA 13 mL/min Low >60 [facility] Comment on above: Result Comment: Afri can [place] GFR Calc Performed By: #### L 500.3600 ####[facility] [address] [place], [address] GFR/1.73 sq M.predicted among non-blacks MDRD (S/P/Bld) [Vol rate/Area] 11 mL/min/{1.73_m2} Low >60 [facility] Comment on above: Result Comment: Non- GFR Calc Performed By: #### L 500.3600 ####[facility] [address] [place], [address] Glucose [Mass/Vol] 191 mg/dL High 74-106 [facility] Comment on above: Result Comment: Fast ing Glucose result greater than or equal to 126 mg/dLsuggests DIABETES MELLITUS per A.D.A. criteria. Performed By: #### L 500.3600 ####[facility] [address] [place], [address] Phosphate [Mass/Vol] 5.7 mg/dL High 2.5-4.9 [facility] Comment on above: Performed By: #### L 500.3600 ####[facility] [address] [place], [address] Potassium [Moles/Vol] 3.8 mmol/L Normal 3.5-5.1 [facility] Comment on above: Performed By: #### L 500.3600 ####[facility] [address] [place], [address] Sodium [Moles/Vol] 138 mmol/L Normal 136-145 [facility] Comment on above: Performed By: #### L 500.3600 ####[facility] [address] [place], [address] Urea nitrogen [Mass/Vol] 90 mg/dL High -18 [facility] Comment on above: Performed By: #### L 500.3600 ####[facility] [address] [place], [address] Comprehensive Metabolic [facility] ilon 07-20-2024 Albumin [Mass/Vol] 2.9 g/dL Low 3.2-5.0 [facility] Comment on above: Performed By: #### L 500.4050 ####[facility] [address] [place], [address] Albumin/Globulin [Mass ratio] 1.0 {ratio} Normal 0.9-2.4 [facility] Comment on above: Performed By: #### L 500.4050 ####[facility] [address] [place], [address] ALK P 83 U/L Normal 45-117 [facility] Comment on above: Performed By: #### L 500.4050 ####[facility] [address] [place], [address] ALT [Catalytic activity/Vol] 15 U/L Normal 13-56 [facility] Comment on above: Performed By: #### L 500.4050 ####[facility] [address] [place], [address] AST [Catalytic activity/Vol] 7 U/L Low 15-37 [facility] Comment on above: Performed By: #### L 500.4050 ####[facility] [address] [place], [address] Bilirubin [Mass/Vol] 0.30 mg/dL Normal 0.20-1.00 [facility] Comment on above: Result Comment: For patients on eltrombopag therapy, use of Dimension Blythe TBIL is not recommended. Performed By: #### L 500.4050 ####[facility] [address] [place], [address] BUN/CRE 19.2 RATIO Normal 10-20 [facility] Comment on above: Performed By: #### L 500.4050 ####[facility] [address] [place], [address] CA,Total 8.9 mg/dL Normal 8.5-10.1 [facility] Comment on above: Performed By: #### L 500.4050 ####[facility] [address] [place], [address] Chloride [Moles/Vol] 110 mmol/L High 98-107 [facility] Comment on above: Performed By: #### L 500.4050 ####[facility] [address] [place], [address] CO2 [Moles/Vol] 20.0 mmol/L Low 21.0-32.0 [facility] Comment on above: Performed By: #### L 500.4050 ####[facility] [address] [place], [address] Creatinine [Mass/Vol] 4.47 mg/dL High 0.55-1.02 [facility] Comment on above: Result Comment: The validity of the calculated GFR GFRAA in patients over70 years has not been determined. Clinical correlation isessential. Performed By: #### L 500.4050 ####[facility] [address] [place], [address] ECRCL 10.32 ml/min Normal [facility] Comment on above: Performed By: #### L 500.4050 ####[facility] [address] [place], [address] EST GFR - AA 13 mL/min Low >60 [facility] Comment on above: Result Comment: Afri can [place] GFR Calc Performed By: #### L 500.4050 ####[facility] [address] [place], [address] GAP 8 Normal 5-15 [facility] Comment on above: Performed By: #### L 500.4050 ####[facility] [address] [place], [address] GFR/1.73 sq M.predicted among non-blacks MDRD (S/P/Bld) [Vol rate/Area] 10 mL/min/{1.73_m2} Low >60 [facility] Comment on above: Result Comment: Non- GFR Calc Performed By: #### L 500.4050 ####[facility] [address] [place], [address] Globulin (S) [Mass/Vol] 3.0 g/dL Normal 2.2-4.2 [facility] Comment on above: Performed By: #### L 500.4050 ####[facility] [address] [place], [address] Glucose [Mass/Vol] 110 mg/dL High 74-106 [facility] Comment on above: Result Comment: Fast ing Glucose result from 100 to 125 mg/dLsuggests IMPAIRED HOMEOSTASIS per A.D.A. criteria. Performed By: #### L 500.4050 ####[facility] [address] [place], [address] Potassium [Moles/Vol] 4.0 mmol/L Normal 3.5-5.1 [facility] Comment on above: Performed By: #### L 500.4050 ####[facility] [address] [place], [address] Sodium [Moles/Vol] 139 mmol/L Normal 136-145 [facility] Comment on above: Performed By: #### L 500.4050 ####[facility] [address] [place], [address] T PROT 5.9 g/dL Low 6.4-8.2 [facility] Comment on above: Performed By: #### L 500.4050 ####[facility] [address] [place], [address] Urea nitrogen [Mass/Vol] 86 mg/dL High 7-18 [facility] Comment on above: Performed By: #### L 500.4050 ####[facility] [address] [place], [address] Cytology, Body Fluid / CSFon 07-20-2024 CYTOLOGY,BF/CSF SEE PATHOLOGY REPORT Normal [facility] Comment on above: Result Comment: Spec imen submitted to Anatomical Pathology Department fortesting. Performed By: #### M 100.2000, L350.1000, M100.2300, L501.1600, L200.0100, L501.0400 ####[facility] [address] [place], [address] Dx Lumbar Puncture w/IMG Kit maurizio 07-20-2024 Dx Lumbar Puncture w/IMG Guide Normal [facility] Glucose Spinal Fluidon 07-20 GLU SPINAL FLD 65 mg/dL Normal 40-75 [facility] Comment on above: Performed By: #### M 100.2000, L350.1000, M100.2300, L501.1600, L200.0100, L501.0400 ####[facility] [address] [place], [address] Gram Stainon 07-20-2024 GS Gram Stain No organisms seen 1+ Red Blood Cells 1+ White Blood Cells Normal [facility] Comment on above: Performed By: #### M 100.2000, L350.1000, M100.2300, L501.1600, L200.0100, L501.0400 ####[facility] [address] [place], [address] Protein Spinal Fluidon 07-20 PROTEIN CSF 42.0 mg/dL Normal 15.0-45.0 [facility] Comment on above: Performed By: #### M 100.1999, L350.1000, M100.2300, L501.1600, L200.0100, L501.0400 ####[facility] [address] [place], [address] Special Stain Group IIon Special Stain Group II Normal [facility] Comment on above: Performed By: #### P SSII ####[facility] [address] [place], [address] CBC W/Diff, Automatedon 07-03 Absolute Lymph 2.78 X10 3/uL Normal 0.83-4.51 [facility] Comment on above: Performed By: #### L 500.4050, L100.0100 ####[facility] [address] [place], [address] Absolute Neut 8.7 X10 3/uL High 2.0-7.7 [facility] Comment on above: Performed By: #### L 500.4050, L100.0100 ####[facility] [address] [place], [address] Basophils/100 WBC (Bld) 0.8 % Normal 0-1 [facility] Comment on above: Performed By: #### L 500.4050, L100.0100 ####[facility] [address] [place], [address] Eosinophils/100 WBC (Bld) 2.8 % Normal 0-5 [facility] Comment on above: Performed By: #### L 500.4050, L100.0100 ####[facility] [address] [place], [address] Erythrocyte distribution width (RBC) [Ratio] 14.4 % Normal 11.6-14.6 [facility] Comment on above: Performed By: #### L 500.4050, L100.0100 ####[facility] [address] [place], [address] Hematocrit (Bld) [Volume fraction] 31.9 % Low 37-47 [facility] Comment on above: Performed By: #### L 500.4050, L100.0100 ####[facility] [address] [place], [address] Hemoglobin (Bld) [Mass/Vol] 10.1 g/dL Low 12.0-15.0 [facility] Comment on above: Performed By: #### L 500.4050, L100.0100 ####[facility] [address] [place], [address] IG% 0.800 Normal 0.0-0.9 [facility] Comment on above: Result Comment: IG% - Immature Granulocytes (promyelocytes, myelocytes andmetamyelocytes) > 1% indicates that a LEFT SHIFT is Present. Performed By: #### L 500.4050, L100.0100 ####[facility] [address] [place], [address] Lymphocytes/100 WBC (Bld) 21.3 % Normal 19-41 [facility] Comment on above: Performed By: #### L 500.4050, L100.0100 ####[facility] [address] [place], [address] MCH (RBC) [Entitic mass] 30.1 pg Normal 27.0-32.0 [facility] Comment on above: Performed By: #### L 500.4050, L100.0100 ####[facility] [address] [place], [address] MCHC (RBC) [Mass/Vol] 31.7 g/dL Low 32-36 [facility] Comment on above: Performed By: #### L 500.4050, L100.0100 ####[facility] [address] [place], [address] MCV (RBC) [Entitic vol] 94.9 fL Normal 81-99 [facility] Comment on above: Performed By: #### L 500.4050, L100.0100 ####[facility] [address] [place], [address] Monocytes/100 WBC (Bld) 8.1 % Normal 0-10 [facility] Comment on above: Performed By: #### L 500.4050, L100.0100 ####[facility] [address] [place], [address] Neutrophils/100 WBC (Bld) 66.2 % Normal 47-70 [facility] Comment on above: Performed By: #### L 500.4050, L100.0100 ####[facility] [address] [place], [address] Nucleated RBC (Bld) [#/Vol] 0 10*3/uL Normal 0-5 [facility] Comment on above: Performed By: #### L 500.4050, L100.0100 ####[facility] [address] [place], [address] Platelet mean volume (Bld) [Entitic vol] 10.2 fL Normal 6.2-12.0 [facility] Comment on above: Performed By: #### L 500.4050, L100.0100 ####[facility] [address] [place], [address] Platelets (Bld) [#/Vol] 344 10*3/uL Normal 150-450 [facility] Comment on above: Performed By: #### L 500.4050, L100.0100 ####[facility] [address] [place], [address] RBC (Bld) [#/Vol] 3.36 10*6/uL Low 4.2-5.4 [facility] Comment on above: Performed By: #### L 500.4050, L100.0100 ####[facility] [address] [place], [address] RDW SD 50.1 fl High 35.1-43.9 [facility] Comment on above: Performed By: #### L 500.4050, L100.0100 ####[facility] [address] [place], [address] WBC (Bld) [#/Vol] 13.1 10*3/uL High 4.4-11.0 [facility] Comment on above: Performed By: #### L 500.4050, L100.0100 ####[facility] [address] [place], [address] Comprehensive Metabolic Prof [facility] 07-19-2024 Albumin [Mass/Vol] 3.0 g/dL Low 3.2-5.0 [facility] Comment on above: Performed By: #### L 500.4050, L100.0100 ####[facility] [address] [place], [address] Albumin/Globulin [Mass ratio] 1.0 {ratio} Normal 0.9-2.4 [facility] Comment on above: Performed By: #### L 500.4050, L100.0100 ####[facility] [address] [place], [address] ALK P 87 U/L Normal 45-117 [facility] Comment on above: Performed By: #### L 500.4050, L100.0100 ####[facility] [address] [place], [address] ALT [Catalytic activity/Vol] 18 U/L Normal 13-56 [facility] Comment on above: Performed By: #### L 500.4050, L100.0100 ####[facility] [address] [place], [address] AST [Catalytic activity/Vol] 9 U/L Low 15-37 [facility] Comment on above: Performed By: #### L 500.4050, L100.0100 ####[facility] [address] [place], [address] Bilirubin [Mass/Vol] 0.30 mg/dL Normal 0.20-1.00 [facility] Comment on above: Result Comment: For patients on eltrombopag therapy, use of Dimension Blythe TBIL is not recommended. Performed By: #### L 500.4050, L100.0100 ####[facility] [address] [place], [address] BUN/CRE 17.1 RATIO Normal 10-20 [facility] Comment on above: Performed By: #### L 500.4050, L100.0100 ####[facility] [address] [place], [address] CA,Total 9.1 mg/dL Normal 8.5-10.1 [facility] Comment on above: Performed By: #### L 500.4050, L100.0100 ####[facility] [address] [place], [address] Chloride [Moles/Vol] 110 mmol/L High 98-107 [facility] Comment on above: Performed By: #### L 500.4050, L100.0100 ####[facility] [address] [place], [address] CO2 [Moles/Vol] 21.0 mmol/L Normal 21.0-32.0 [facility] Comment on above: Performed By: #### L 500.4050, L100.0100 ####[facility] [address] [place], [address] Creatinine [Mass/Vol] 4.32 mg/dL High 0.55-1.02 [facility] Comment on above: Result Comment: The validity of the calculated GFR GFRAA in patients over70 years has not been determined. Clinical correlation isessential. Performed By: #### L 500.4050, L100.0100 ####[facility] [address] [place], [address] ECRCL 10.68 ml/min Normal [facility] Comment on above: Performed By: #### L 500.4050, L100.0100 ####[facility] [address] [place], [address] EST GFR - AA 13 mL/min Low >60 [facility] Comment on above: Result Comment: Afri can [place] GFR Calc Performed By: #### L 500.4050, L100.0100 ####[facility] [address] [place], [address] GAP 8 Normal 5-15 [facility] Comment on above: Performed By: #### L 500.4050, L100.0100 ####[facility] [address] [place], [address] GFR/1.73 sq M.predicted among non-blacks MDRD (S/P/Bld) [Vol rate/Area] 11 mL/min/{1.73_m2} Low >60 [facility] Comment on above: Result Comment: Non- GFR Calc Performed By: #### L 500.4050, L100.0100 ####[facility] [address] [place], [address] Globulin (S) [Mass/Vol] 2.9 g/dL Normal 2.2-4.2 [facility] Comment on above: Performed By: #### L 500.4050, L100.0100 ####[facility] [address] [place], [address] Glucose [Mass/Vol] 114 mg/dL High 74-106 [facility] Comment on above: Result Comment: Fast ing Glucose result from 100 to 125 mg/dLsuggests IMPAIRED HOMEOSTASIS per A.D.A. criteria. Performed By: #### L 500.4050, L100.0100 ####[facility] [address] [place], [address] Potassium [Moles/Vol] 3.8 mmol/L Normal 3.5-5.1 [facility] Comment on above: Performed By: #### L 500.4050, L100.0100 ####[facility] [address] [place], [address] Sodium [Moles/Vol] 139 mmol/L Normal 136-145 [facility] Comment on above: Performed By: #### L 500.4050, L100.0100 ####[facility] [address] [place], [address] T PROT 5.9 g/dL Low 6.4-8.2 [facility] Comment on above: Performed By: #### L 500.4050, L100.0100 ####[facility] [address] [place], [address] Urea nitrogen [Mass/Vol] 74 mg/dL High 7-18 [facility] Comment on above: Performed By: #### L 500.4050, L100.0100 ####[facility] [address] [place], [address] CBC W/Diff, Automatedon 11 Absolute Lymph 1.79 X10 3/uL Normal 0.83-4.51 [facility] Comment on above: Performed By: #### L 500.4100, L501.9985, L500.4050, L100.0100 ####[facility] [address] [place], [address] Absolute Neut 10.7 X10 3/uL High 2.0-7.7 [facility] Comment on above: Performed By: #### L 500.4100, L501.9985, L500.4050, L100.0100 ####[facility] [address] [place], [address] Basophils/100 WBC (Bld) 0.6 % Normal 0-1 [facility] Comment on above: Performed By: #### L 500.4100, L501.9985, L500.4050, L100.0100 ####[facility] [address] [place], [address] Eosinophils/100 WBC (Bld) 0.4 % Normal 0-5 [facility] Comment on above: Performed By: #### L 500.4100, L501.9985, L500.4050, L100.0100 ####[facility] [address] [place], [address] Erythrocyte distribution width (RBC) [Ratio] 14.4 % Normal 11.6-14.6 [facility] Comment on above: Performed By: #### L 500.4100, L501.9985, L500.4050, L100.0100 ####[facility] [address] [place], [address] Hematocrit (Bld) [Volume fraction] 37.9 % Normal 37-47 [facility] Comment on above: Performed By: #### L 500.4100, L501.9985, L500.4050, L100.0100 ####[facility] [address] [place], [address] Hemoglobin (Bld) [Mass/Vol] 11.9 g/dL Low 12.0-15.0 [facility] Comment on above: Performed By: #### L 500.4100, L501.9985, L500.4050, L100.0100 ####[facility] [address] [place], [address] IG% 0.700 Normal 0.0-0.9 [facility] Comment on above: Result Comment: IG% - Immature Granulocytes (promyelocytes, myelocytes andmetamyelocytes) > 1% indicates that a LEFT SHIFT is Present. Performed By: #### L 500.4100, L501.9985, L500.4050, L100.0100 ####[facility] [address] [place], [address] Lymphocytes/100 WBC (Bld) 12.9 % Low 19-41 [facility] Comment on above: Performed By: #### L 500.4100, L501.9985, L500.4050, L100.0100 ####[facility] [address] [place], [address] MCH (RBC) [Entitic mass] 29.8 pg Normal 27.0-32.0 [facility] Comment on above: Performed By: #### L 500.4100, L501.9985, L500.4050, L100.0100 ####[facility] [address] [place], [address] MCHC (RBC) [Mass/Vol] 31.4 g/dL Low 32-36 [facility] Comment on above: Performed By: #### L 500.4100, L501.9985, L500.4050, L100.0100 ####[facility] [address] [place], [address] MCV (RBC) [Entitic vol] 94.8 fL Normal 81-99 [facility] Comment on above: Performed By: #### L 500.4100, L501.9985, L500.4050, L100.0100 ####[facility] [address] [place], [address] Monocytes/100 WBC (Bld) 8.4 % Normal 0-10 [facility] Comment on above: Performed By: #### L 500.4100, L501.9985, L500.4050, L100.0100 ####[facility] [address] [place], [address] Neutrophils/100 WBC (Bld) 77.0 % High 47-70 [facility] Comment on above: Performed By: #### L 500.4100, L501.9985, L500.4050, L100.0100 ####[facility] [address] [place], [address] Nucleated RBC (Bld) [#/Vol] 0 10*3/uL Normal 0-5 [facility] Comment on above: Performed By: #### L 500.4100, L501.9985, L500.4050, L100.0100 ####[facility] [address] [place], [address] Platelet mean volume (Bld) [Entitic vol] 9.5 fL Normal 6.2-12.0 [facility] Comment on above: Performed By: #### L 500.4100, L501.9985, L500.4050, L100.0100 ####[facility] [address] [place], [address] Platelets (Bld) [#/Vol] 384 10*3/uL Normal 150-450 [facility] Comment on above: Performed By: #### L 500.4100, L501.9985, L500.4050, L100.0100 ####[facility] [address] [address] [place], [address] RBC (Bld) [#/Vol] 4.00 10*6/uL Low 4.2-5.4 [facility] Comment on above: Performed By: #### L 500.4100, L501.9985, L500.4050, L100.0100 ####[facility] [address] [place], [address] RDW SD 50.0 fl High 35.1-43.9 [facility] Comment on above: Performed By: #### L 500.4100, L501.9985, L500.4050, L100.0100 ####[facility] [address] [place], [address] WBC (Bld) [#/Vol] 13.9 10*3/uL High 4.4-11.0 [facility] Comment on above: Performed By: #### L 500.4100, L501.9985, L500.4050, L100.0100 ####[facility] [address] [place], [address] Comprehensive Metabolic Prof ilon 07-17-2024 ALB Normal 3.2-5.0 [facility] Comment on above: Result Comment: MARISELA TAMEZ RN Performed By: #### L 500.4050 ####[facility] [address] [place], [address] ALK P Normal 45-117 [facility] Comment on above: Result Comment: MARISELA TAMEZ RN Performed By: #### L 500.4050 ####[facility] [address] [place], [address] ALT Normal 13-56 [facility] Comment on above: Result Comment: MARISELA TAMEZ RN Performed By: #### L 500.4050 ####[facility] [address] [place], [address] AST Normal 15-37 [facility] Comment on above: Result Comment: MARISELA TAMEZ RN Performed By: #### L 500.4050 ####[facility] [address] [place], [address] BUN Normal 7-18 [facility] Comment on above: Result Comment: MARISELA TAMEZ RN Performed By: #### L 500.4050 ####[facility] [address] [place], [address] BUN/CRE Normal 10-20 [facility] Comment on above: Result Comment: MARISELA TAMEZ RN Performed By: #### L 500.4050 ####[facility] [address] [place], [address] CA,Total Normal 8.5-10.1 [facility] Comment on above: Result Comment: MARISELA TAMEZ RN Performed By: #### L 500.4050 ####[facility] [address] [place], [address] CL Normal 98-107 [facility] Comment on above: Result Comment: MARISELA TAMEZ RN Performed By: #### L 500.4050 ####[facility] [address] [place], [address] CO2 Normal 21.0-32.0 [facility] Comment on above: Result Comment: MARISELA TAMEZ RN Performed By: #### L 500.4050 ####[facility] [address] [place], [address] CREAT,SERUM Normal 0.55-1.02 [facility] Comment on above: Result Comment: MARISELA TAMEZ RN Performed By: #### L 500.4050 ####[facility] [address] [place], [address] EST GFR Normal >60 [facility] Comment on above: Result Comment: MARISELA TAMEZ RN Performed By: #### L 500.4050 ####[facility] [address] [place], [address] EST GFR - AA Normal >60 [facility] Comment on above: Result Comment: MARISELA TAMEZ RN Performed By: #### L 500.4050 ####[facility] [address] [place], [address] GAP Normal 5-15 [facility] Comment on above: Result Comment: MARISELA TAMEZ RN Performed By: #### L 500.4050 ####[facility] [address] [place], [address] GLU Normal 74-106 [facility] Comment on above: Result Comment: MARISELA TAMEZ RN Performed By: #### L 500.4050 ####[facility] [address] [place], [address] Potassium Normal 3.5-5.1 [facility] Comment on above: Result Comment: MARISELA TAMEZ RN Performed By: #### L 500.4050 ####[facility] [address] [place], [address] T BILI Normal 0.20-1.00 [facility] Comment on above: Result Comment: MARISELA TAMEZ RN Performed By: #### L 500.4050 ####[facility] [address] [place], [address] T PROT Normal 6.4-8.2 [facility] Comment on above: Result Comment: MARISELA TAMEZ RN Performed By: #### L 500.4050 ####[facility] [address] [place], [address] Comprehensive Metabolic Profil Normal 136-145 [facility] Comment on above: Result Comment: MARISELA TAMEZ RN Performed By: #### L 500.4050 ####[facility] [address] [place], [address] Albumin [Mass/Vol] 3.9 g/dL Normal 3.2-5.0 [facility] Comment on above: Performed By: #### L 500.4100, L501.9985, L500.4050, L100.0100 ####[facility] [address] [place], [address] Albumin/Globulin [Mass ratio] 1.1 {ratio} Normal 0.9-2.4 [facility] Comment on above: Performed By: #### L 500.4100, L501.9985, L500.4050, L100.0100 ####[facility] [address] [place], [address] ALK P 123 U/L High 45-117 [facility] Comment on above: Performed By: #### L 500.4100, L501.9985, L500.4050, L100.0100 ####[facility] [address] [place], [address] ALT [Catalytic activity/Vol] 31 U/L Normal 13-56 [facility] Comment on above: Performed By: #### L 500.4100, L501.9985, L500.4050, L100.0100 ####[facility] [address] [place], [address] AST [Catalytic activity/Vol] 24 U/L Normal 15-37 [facility] Comment on above: Performed By: #### L 500.4100, L501.9985, L500.4050, L100.0100 ####[facility] [address] [place], [address] Bilirubin [Mass/Vol] 0.50 mg/dL Normal 0.20-1.00 [facility] Comment on above: Result Comment: For patients on eltrombopag therapy, use of Dimension Blythe TBIL is not recommended. Performed By: #### L 500.4100, L501.9985, L500.4050, L100.0100 ####[facility] [address] [place], [address] BUN/CRE 11.4 RATIO Normal 10-20 [facility] Comment on above: Performed By: #### L 500.4100, L501.9985, L500.4050, L100.0100 ####[facility] [address] [place], [address] CA,Total 10.2 mg/dL High 8.5-10.1 [facility] Comment on above: Performed By: #### L 500.4100, L501.9985, L500.4050, L100.0100 ####[facility] [address] [place], [address] Chloride [Moles/Vol] 113 mmol/L High 98-107 [facility] Comment on above: Performed By: #### L 500.4100, L501.9985, L500.4050, L100.0100 ####[facility] [address] [place], [address] CO2 [Moles/Vol] 24.0 mmol/L Normal 21.0-32.0 [facility] Comment on above: Performed By: #### L 500.4100, L501.9985, L500.4050, L100.0100 ####[facility] [address] [place], [address] Creatinine [Mass/Vol] 3.08 mg/dL High 0.55-1.02 [facility] Comment on above: Result Comment: The validity of the calculated GFR GFRAA in patients over70 years has not been determined. Clinical correlation isessential. Performed By: #### L 500.4100, L501.9985, L500.4050, L100.0100 ####[facility] [address] [place], [address] ECRCL 14.87 ml/min Normal [facility] Comment on above: Performed By: #### L 500.4100, L501.9985, L500.4050, L100.0100 ####[facility] [address] [place], [address] EST GFR - AA 19 mL/min Low >60 [facility] Comment on above: Result Comment: Afri can [place] GFR Calc Performed By: #### L 500.4100, L501.9985, L500.4050, L100.0100 ####[facility] [address] [place], [address] GAP 8 Normal 5-15 [facility] Comment on above: Performed By: #### L 500.4100, L501.9985, L500.4050, L100.0100 ####[facility] [address] [place], [address] GFR/1.73 sq M.predicted among non-blacks MDRD (S/P/Bld) [Vol rate/Area] 16 mL/min/{1.73_m2} Low >60 [facility] Comment on above: Result Comment: Non- GFR Calc Performed By: #### L 500.4100, L501.9985, L500.4050, L100.0100 ####[facility] [address] [place], [address] Globulin (S) [Mass/Vol] 3.7 g/dL Normal 2.2-4.2 [facility] Comment on above: Performed By: #### L 500.4100, L501.9985, L500.4050, L100.0100 ####[facility] [address] [place], [address] Glucose [Mass/Vol] 119 mg/dL High 74-106 [facility] Comment on above: Result Comment: Fast ing Glucose result from 100 to 125 mg/dLsuggests IMPAIRED HOMEOSTASIS per A.D.A. criteria. Performed By: #### L 500.4100, L501.9985, L500.4050, L100.0100 ####[facility] [address] [place], [address] Potassium [Moles/Vol] 3.6 mmol/L Normal 3.5-5.1 [facility] Comment on above: Performed By: #### L 500.4100, L501.9985, L500.4050, L100.0100 ####[facility] [address] [place], [address] Sodium [Moles/Vol] 145 mmol/L Normal 136-145 [facility] Comment on above: Performed By: #### L 500.4100, L501.9985, L500.4050, L100.0100 ####[facility] [address] [place], [address] T PROT 7.6 g/dL Normal 6.4-8.2 [facility] Comment on above: Performed By: #### L 500.4100, L501.9985, L500.4050, L100.0100 ####[facility] [address] [place], [address] Urea nitrogen [Mass/Vol] 35 mg/dL High 7-18 [facility] Comment on above: Performed By: #### L 500.4100, L501.9985, L500.4050, L100.0100 ####[facility] [address] [place], [address] Hemoglobin A1con 07-17-2024 HbA1c (Bld) [Mass fraction] 5.6 % Normal 3.8-5.6 [facility] Comment on above: Result Comment: Norm al < 5.7 % Prediabetic 5.7 - 6.4 % Diabetic >or= 6.5 % Please note range changes. Performed By: #### L 500.4100, L501.9985, L500.4050, L100.0100 ####[facility] [address] [place], [address] Lipid Profileon 07-17-2024 Cholesterol [Mass/Vol] 153 mg/dL Normal 200 [facility] Comment on above: Result Comment: <200 mg/dL Desirable 200-240 mg/dL Borderline >240 mg/dL High Risk Performed By: #### L 500.4100, L501.9985, L500.4050, L100.0100 ####[facility] [address] [place], [address] Cholesterol in HDL [Mass/Vol] 61 mg/dL Normal [facility] Comment on above: Result Comment: The drugs N-Acetylcysteine and Metamizole may falselydepress this assay. Reference Range HDL <40 mg/dL Low HDL Cholesterol HDL >or= 60 mg/dL High HDL Cholesterol Performed By: #### L 500.4100, L501.9985, L500.4050, L100.0100 ####[facility] [address] [place], [address] Cholesterol in LDL [Mass/Vol] 44 mg/dL Normal 0-130 [facility] Comment on above: Performed By: #### L 500.4100, L501.9985, L500.4050, L100.0100 ####[facility] [address] [place], [address] Cholesterol in VLDL [Mass/Vol] 48 mg/dL High 5-40 [facility] Comment on above: Performed By: #### L 500.4100, L501.9985, L500.4050, L100.0100 ####[facility] [address] [place], [address] Triglyceride [Mass/Vol] 242 mg/dL High [facility] Comment on above: Result Comment: The drugs N-Acetylcysteine and Metamizole may falselydepress this assay.Serum Triglycerides Reference Interval Normal <150 mg/dL Borderline high 150 - 199 mg/dL High 200 - 499 mg/dL Very High > or = 500 mg/dL Performed By: #### L 500.4100, L501.9985, L500.4050, L100.0100 ####[facility] [address] [place], [address] MR/CON.PCM.NEon 07-17-2024 MR/CON.PCM.NE Normal [facility] Brain without Contraston Brain without Contrast Normal [facility] Echo Completeon 07-16-2024 Echo Complete Normal [facility] EGD Study observation Narrat iveon 03-23-2024 [facility] Gastrointestinal Endoscopy Patient Name: Kary Haddad Procedure Date: 03/23/2024 11:01 AM Date of : 1955 Admit Type: Outpatient Room: [place] [address] Gender: Female Note Status: Finalized Attending MD: Casimiro Torrez MD, [id number] Procedure: Upper GI endoscopy Indications: Follow-up of [...] Note Initiated On: 03/23/2024 11:01 AM [facility]OV[facility] Radiology Study observation (narrative) [facility] Absolute lymphocyte countOrd ered By: Ronald Lowe on 12-03-2023 Lymphocytes Auto (Unsp spec) [#/Vol] 1.83 10*3/uL 0.83-4.51 [facility] Automated lymphocyte count a s percentage of total leukocytesOrdered By: Ronald Lowe on 12-03-2023 Lymphocytes/100 WBC Auto (Unsp spec) 26.7 % 19-41 [facility] Basophil percentageOrdered B y: Ronald Lowe on 12-03-2023 Basophil percentage 2.4 mg/dL 2.5-4.9 [facility] Basophils/100 WBC (Bld) 0.7 % 0-1 [facility] Chloride [Moles/Vol] 117 mmol/L 98-107 [facility] Eosinophils/100 WBC (Bld) 4.4 % 0-5 [facility] Glucose [Mass/Vol] 105 mg/dL 74-106 [facility] Comment on above: Fasting Glucose resu lt from 100 to 125 mg/dL suggests IMPAIRED HOMEOSTASIS per A.D.A. criteria. Hemoglobin (Bld) [Mass/Vol] 9.5 g/dL 12.0-15.0 [facility] Monocytes/100 WBC (Bld) 9.9 % 0-10 [facility] Neutrophils (Bld) [#/Vol] 4.0 10*3/uL 2.0-7.7 [facility] Neutrophils/100 WBC (Bld) 57.9 % 47-70 [facility] Potassium [Moles/Vol] 4.1 mmol/L 3.5-5.1 [facility] Sodium [Moles/Vol] 143 mmol/L 136-145 [facility] WBC (Bld) [#/Vol] 6.9 10*3/uL 4.4-11.0 [facility] Determination of erythrocyte mean corpuscular volume (MCV)Ordered By: Ronald Lowe on 12-03-2023 MCV (RBC) [Entitic vol] 91.1 fL 81-99 [facility] Erythrocyte distribution wid th ratioOrdered By: Ronald Lowe on 12-03-2023 Erythrocyte distribution width (RBC) [Ratio] 13.7 % 11.6-14.6 [facility] Erythrocyte distribution wid th standard deviationOrdered By: Ronald Lowe on 12-03-2023 Erythrocyte distribution width (RBC) [Entitic vol] 46.1 fL 35.1-43.9 [facility] Hematocrit Auto (Bld) [Volum e fraction]Ordered By: Ronald Lowe on 12-03-2023 Hematocrit (Bld) [Volume fraction] 29.8 % 37-47 [facility] Immature granulocytes/100 WB C Auto (Bld)Ordered By: Ronald Lowe on 12-03-2023 Immature granulocytes/100 WBC (Bld) 0.400 % 0.0-0.9 [facility] Comment on above: IG% - Immature Granu locytes (promyelocytes, myelocytes and metamyelocytes) > 1% indicates that a LEFT SHIFT is Present. Laboratory - Chemistry and C hemistry - challengeOrdered By: Ronald Lowe on 12-03-2023 CO2 [Moles/Vol] 20.0 mmol/L 21.0-32.0 [facility] Magnesium [Mass/Vol] 1.6 mg/dL 1.6-2.6 [facility] Urea nitrogen/Creatinine [Mass ratio] 16.2 mg/mg 10-20 [facility] Laboratory - Hematology and Cell countsOrdered By: Ronald Lowe on 12-03-2023 MCH (RBC) [Entitic mass] 29.1 pg 27.0-32.0 [facility] MCHC (RBC) [Mass/Vol] 31.9 g/dL 32-36 [facility] Nucleated RBC/100 WBC (Bld) [Ratio] 0 % 0-5 [facility] Platelet mean volume (Bld) [Entitic vol] 11.5 fL 6.2-12.0 [facility] Platelets (Bld) [#/Vol] 276 10*3/uL 150-450 [facility] No Panel InformationOrdered By: Ronald Lowe on 12-03-2023 Estimated Creatinine Clearance Calc 33.93 ml/min [facility] Estimated GFR (MDRD) Amer 47 mL/min >60 [facility] Comment on above: GFR Calc Estimated GFR (MDRD) Non-Af Amer 39 mL/min >60 [facility] Comment on above: Non- GFR Calc RBC Auto (Bld) [#/Vol]Ordere d By: Ronald Lowe on 12-03-2023 RBC (Bld) [#/Vol] 3.27 10*6/uL 4.2-5.4 [facility] Serum or plasma calcium yamil urement (mass/volume)Ordered By: Ronald Lowe on 12-03-2023 Calcium [Mass/Vol] 8.6 mg/dL 8.5-10.1 [facility] Serum or plasma creatinine m easurement (mass/volume)Ordered By: Ronald Lowe on 12-03-2023 Creatinine [Mass/Vol] 1.42 mg/dL 0.55-1.02 [facility] Comment on above: The validity of the calculated GFR & GFRAA in patients over 70 years has not been determined. Clinical correlation is essential. Serum or plasma urea nitroge n measurement (mass/volume)Ordered By: Ronald Lowe on 12-03-2023 Urea nitrogen [Mass/Vol] 23 mg/dL 7-18 [facility] Thin prep Papanicolaou smear with manual screeningOrdered By: Ronald Lowe on 12-03-2023 Thin prep Papanicolaou smear with manual screening 6 5-15 [facility] Absolute lymphocyte countOrd ered By: Raisa Calhoun on 12-01-2023 Lymphocytes Auto (Unsp spec) [#/Vol] 2.01 10*3/uL 0.83-4.51 [facility] Activated partial thrombopla stin time (aPTT) in platelet poor plasma by coagulation aOrdered By: Raisa Calhoun on 12-01-2023 aPTT Coag (PPP) [Time] 28.2 s 24.1-36.2 [facility] Automated lymphocyte count a s percentage of total leukocytesOrdered By: Raisa Calhoun on 12-01-2023 Lymphocytes/100 WBC Auto (Unsp spec) 16.6 % 19-41 [facility] Basophil percentageOrdered B y: Raisa Calhoun on 12-01-2023 Basophils/100 WBC (Bld) 0.7 % 0-1 [facility] Bilirubin [Mass/Vol] 0.40 mg/dL 0.20-1.00 [facility] Comment on above: For patients on eltr ombopag therapy, use of Dimension Blythe TBIL is not recommended. Chloride [Moles/Vol] 109 mmol/L 98-107 [facility] Eosinophils/100 WBC (Bld) 2.2 % 0-5 [facility] Glucose [Mass/Vol] 139 mg/dL 74-106 [facility] Comment on above: Fasting Glucose resu lt greater than or equal to 126 mg/dL suggests DIABETES MELLITUS per A.D.A. criteria. Hemoglobin (Bld) [Mass/Vol] 11.1 g/dL 12.0-15.0 [facility] Lactate [Moles/Vol] 1.3 mmol/L 0.4-2.0 [facility] Monocytes/100 WBC (Bld) 8.4 % 0-10 [facility] Neutrophils (Bld) [#/Vol] 8.7 10*3/uL 2.0-7.7 [facility] Neutrophils/100 WBC (Bld) 71.5 % 47-70 [facility] Potassium [Moles/Vol] 3.9 mmol/L 3.5-5.1 [facility] Protein [Mass/Vol] 6.9 g/dL 6.4-8.2 [facility] Sodium [Moles/Vol] 139 mmol/L 136-145 [facility] WBC (Bld) [#/Vol] 12.1 10*3/uL 4.4-11.0 [facility] Determination of erythrocyte mean corpuscular volume (MCV)Ordered By: Raisa Calhoun on 12-01-2023 MCV (RBC) [Entitic vol] 89.7 fL 81-99 [facility] Direct bilirubinOrdered By: Raisa Calhoun on 12-01-2023 Bilirubin.direct [Mass/Vol] 0.12 mg/dL 0.00-0.30 [facility] Erythrocyte distribution wid th ratioOrdered By: Raisa Calhoun on 12-01-2023 Erythrocyte distribution width (RBC) [Ratio] 13.9 % 11.6-14.6 [facility] Erythrocyte distribution wid th standard deviationOrdered By: Raisa Calhoun on 12-01-2023 Erythrocyte distribution width (RBC) [Entitic vol] 45.1 fL 35.1-43.9 [facility] Hematocrit Auto (Bld) [Volum e fraction]Ordered By: Raisa Calhoun on 12-01-2023 Hematocrit (Bld) [Volume fraction] 34.7 % 37-47 [facility] Immature granulocytes/100 WB C Auto (Bld)Ordered By: Raisa Calhoun on 12-01-2023 Immature granulocytes/100 WBC (Bld) 0.600 % 0.0-0.9 [facility] Comment on above: IG% - Immature Granu locytes (promyelocytes, myelocytes and metamyelocytes) > 1% indicates that a LEFT SHIFT is Present. Laboratory - Chemistry and C hemistry - challengeOrdered By: Raisa Calhoun on 12-01-2023 ALP [Catalytic activity/Vol] 76 U/L 45-117 [facility] ALT [Catalytic activity/Vol] 20 U/L 13-56 [facility] CO2 [Moles/Vol] 23.0 mmol/L 21.0-32.0 [facility] Globulin (S) [Mass/Vol] 3.4 g/dL 2.2-4.2 [facility] Urea nitrogen/Creatinine [Mass ratio] 28.0 mg/mg 10-20 [facility] Laboratory - CoagulationOrde red By: Raisa Calhoun on 12-01-2023 INR Coag (Bld) [Relative time] 1.1 {INR} [facility] PT Coag (PPP) [Time] 14.6 s 11.7-14.9 [facility] Laboratory - Hematology and Cell countsOrdered By: Raisa Calhoun on 12-01-2023 MCH (RBC) [Entitic mass] 28.7 pg 27.0-32.0 [facility] MCHC (RBC) [Mass/Vol] 32.0 g/dL 32-36 [facility] Nucleated RBC/100 WBC (Bld) [Ratio] 0 % 0-5 [facility] Platelet mean volume (Bld) [Entitic vol] 10.5 fL 6.2-12.0 [facility] Platelets (Bld) [#/Vol] 401 10*3/uL 150-450 [facility] No Panel InformationOrdered By: Raisa Calhoun on 12-01-2023 Estimated Creatinine Clearance Calc 25.91 ml/min [facility] Estimated GFR (MDRD) Amer 34 mL/min >60 [facility] Comment on above: GFR Calc Estimated GFR (MDRD) Non-Af Amer 28 mL/min >60 [facility] Comment on above: Non- GFR Calc RBC Auto (Bld) [#/Vol]Ordere d By: Raisa Calhoun on 12-01-2023 RBC (Bld) [#/Vol] 3.87 10*6/uL 4.2-5.4 [facility] Serum or plasma calcium yamil urement (mass/volume)Ordered By: Raisa Calhoun on 12-01-2023 Calcium [Mass/Vol] 9.4 mg/dL 8.5-10.1 [facility] Serum or plasma creatinine m easurement (mass/volume)Ordered By: Raisa Calhoun on 12-01-2023 Creatinine [Mass/Vol] 1.86 mg/dL 0.55-1.02 [facility] Comment on above: The validity of the calculated GFR & GFRAA in patients over 70 years has not been determined. Clinical correlation is essential. Serum or plasma urea nitroge n measurement (mass/volume)Ordered By: Raisa Calhoun on 12-01-2023 Urea nitrogen [Mass/Vol] 52 mg/dL 7-18 [facility] Stool gastrointestinal hemog lobin detection by immunologic methodOrdered By: Raisa Calhoun on 12-01-2023 Lower GI hemoglobin IA Ql (Stl) [facility] Thin prep Papanicolaou smear with manual screeningOrdered By: Raisa Calhoun on 12-01-2023 Thin prep Papanicolaou smear with manual screening 3.5 g/dL 3.2-5.0 [facility] Thin prep Papanicolaou smear with manual screening 18 U/L 15-37 [facility] Thin prep Papanicolaou smear with manual screening 7 5-15 [facility] Absolute lymphocyte countOrd ered By: Ronald Lowe on 07-27-2023 Lymphocytes Auto (Unsp spec) [#/Vol] 2.05 10*3/uL 0.83-4.51 [facility] Basophil percentageOrdered B y: Ronald Lowe on 07-27-2023 Basophil percentage 2.7 mg/dL 2.5-4.9 [facility] Basophils/100 WBC (Bld) 0.8 % 0-1 [facility] Chloride [Moles/Vol] 113 mmol/L 98-107 [facility] Eosinophils/100 WBC (Bld) 2.6 % 0-5 [facility] Glucose [Mass/Vol] 127 mg/dL 74-106 [facility] Comment on above: Fasting Glucose resu lt greater than or equal to 126 mg/dL suggests DIABETES MELLITUS per A.D.A. criteria. Neutrophils (Bld) [#/Vol] 6.8 10*3/uL 2.0-7.7 [facility] Neutrophils/100 WBC (Bld) 65.5 % 47-70 [facility] Potassium [Moles/Vol] 3.8 mmol/L 3.5-5.1 [facility] Sodium [Moles/Vol] 140 mmol/L 136-145 [facility] WBC (Bld) [#/Vol] 10.4 10*3/uL 4.4-11.0 [facility] Blood erythrocytes count (nu mber/volume)Ordered By: Ronald Lowe on 07-27-2023 RBC (Bld) [#/Vol] 3.84 10*6/uL 4.2-5.4 [facility] Blood hemoglobin measurement (mass/volume)Ordered By: Ronald Lowe on 07-27-2023 Hemoglobin (Bld) [Mass/Vol] 11.1 g/dL 12.0-15.0 [facility] Blood lymphocytes/100 leukoc ytesOrdered By: Ronald Lowe on 07-27-2023 Lymphocytes/100 WBC (Bld) 19.7 % 19-41 [facility] Blood monocytes/100 leukocyt esOrdered By: Ronald Lowe on 07-27-2023 Monocytes/100 WBC (Bld) 10.8 % 0-10 [facility] Blood platelet mean volumeOr dered By: Ronald Lowe on 07-27-2023 Platelet mean volume (Bld) [Entitic vol] 11.2 fL 6.2-12.0 [facility] Determination of erythrocyte mean corpuscular volume (MCV)Ordered By: Ronald Lowe on 07-27-2023 MCV (RBC) [Entitic vol] 91.9 fL 81-99 [facility] Hematocrit Auto (Bld) [Volum e fraction]Ordered By: Ronald Lowe on 07-27-2023 Hematocrit (Bld) [Volume fraction] 35.3 % 37-47 [facility] Laboratory - Chemistry and C hemistry - challengeOrdered By: Ronald Lowe on 07-27-2023 CO2 [Moles/Vol] 22.0 mmol/L 21.0-32.0 [facility] Magnesium [Mass/Vol] 1.6 mg/dL 1.6-2.6 [facility] Urea nitrogen/Creatinine [Mass ratio] 21.7 mg/mg 10-20 [facility] Laboratory - Hematology and Cell countsOrdered By: Ronald Lowe on 07-27-2023 Erythrocyte distribution width (RBC) [Entitic vol] 49.1 fL 35.1-43.9 [facility] Erythrocyte distribution width (RBC) [Ratio] 14.6 % 11.6-14.6 [facility] Immature granulocytes/100 WBC (Bld) 0.600 % 0.0-0.9 [facility] Comment on above: IG% - Immature Granu locytes (promyelocytes, myelocytes and metamyelocytes) > 1% indicates that a LEFT SHIFT is Present. MCH (RBC) [Entitic mass] 28.9 pg 27.0-32.0 [facility] Nucleated RBC/100 WBC (Bld) [Ratio] 0 % 0-5 [facility] MCHC Auto (RBC) [Mass/Vol]Or dered By: Ronald Lowe on 07-27-2023 MCHC (RBC) [Mass/Vol] 31.4 g/dL 32-36 [facility] No Panel InformationOrdered By: Ronald Lowe on 07-27-2023 Estimated Creatinine Clearance Calc 30.00 ml/min [facility] Estimated GFR (MDRD) Amer 49 mL/min >60 [facility] Comment on above: GFR Calc Estimated GFR (MDRD) Non-Af Amer 40 mL/min >60 [facility] Comment on above: Non- GFR Calc Platelets bldOrdered By: Donnie Lowe on 07-27-2023 Platelets (Bld) [#/Vol] 301 10*3/uL 150-450 [facility] Serum or plasma calcium yamil urement (mass/volume)Ordered By: Ronald Lowe on 07-27-2023 Calcium [Mass/Vol] 9.1 mg/dL 8.5-10.1 [facility] Serum or plasma creatinine m easurement (mass/volume)Ordered By: Ronald Lowe on 07-27-2023 Creatinine [Mass/Vol] 1.38 mg/dL 0.55-1.02 [facility] Comment on above: The validity of the calculated GFR & GFRAA in patients over 70 years has not been determined. Clinical correlation is essential. Serum or plasma urea nitroge n measurement (mass/volume)Ordered By: Ronald Lowe on 07-27-2023 Urea nitrogen [Mass/Vol] 30 mg/dL 7-18 [facility] Thin prep Papanicolaou smear with manual screeningOrdered By: Ronald Lowe on 07-27-2023 Thin prep Papanicolaou smear with manual screening 5 5-15 [facility] Basophil percentageOrdered B y: Melecio Torrez on 07-26-2023 Bilirubin [Mass/Vol] 0.40 mg/dL 0.20-1.00 [facility] Comment on above: For patients on eltr ombopag therapy, use of Dimension [place] TBIL is not recommended. Protein [Mass/Vol] 6.3 g/dL 6.4-8.2 [facility] Blood manual differential co mment interpretation (narrative result)Ordered By: Melecio Torrez on 07-26-2023 Manual differential comment Fitz (Bld) [Interp] SCANNED [facility] Comment on above: MONOCYTOSIS PRESENT Blood platelet morphology de termination (nominal result)Ordered By: Melecio Torrez on 07-26-2023 Platelet morphology finding Nom (Bld) LARGE [facility] Direct bilirubinOrdered By: Melecio Torrez on 07-26-2023 Bilirubin.direct [Mass/Vol] 0.12 mg/dL 0.00-0.30 [facility] INR in Blood by Coagulation assayOrdered By: Melecio Torrez on 07-26-2023 INR Coag (Bld) [Relative time] 1.1 {INR} [facility] Laboratory - Chemistry and C hemistry - challengeOrdered By: Melecio Torrez on 07-26-2023 ALP [Catalytic activity/Vol] 68 U/L 45-117 [facility] ALT [Catalytic activity/Vol] 26 U/L 13-56 [facility] Globulin (S) [Mass/Vol] 3.1 g/dL 2.2-4.2 [facility] Natriuretic peptide B (Bld) [Mass/Vol] 1014.8 pg/mL 0-100 [facility] - CoagulationOrde red By: Melecio Torrez on 07-26-2023 aPTT Coag (Bld) [Time] 45.6 s 24.1-36.2 [facility] PT Coag (PPP) [Time] 14.7 s 11.7-14.9 [facility] No Panel InformationOrdered By: Melecio Torrez on 07-26-2023 Troponin I High Sensitivity 1815 pg/mL 3.0-54.0 [facility] Comment on above: Critical Result(s) C alled at: 01:45:09 07/26/2023 by: Miguel Angel Baldwin. ADRIA BECKFORD (RN) (PCU) Results read back by same. Please Note: New Test Units and Gender Specific Reference Ranges. For more information see Policy Stat Procedure [facility] High Sensitivity Troponin (TNIH) and attachments. Review by pathologistOrdered By: Melecio Torrez on 07-26-2023 Pathologist review Fitz (Unsp spec) [Interp] Reviewed [facility] Comment on above: Previous reported re sult: Anna owens Edited by: MARIA LUISA on 07/26/23:1426Neutrophilic leukocytosis.Clinical correlation suggested.Dereck Nunn D.O. 07/26/23 AMENDED REPORT 07/26/23 1426 PATH REV previously reported as: Anna owens Serum or plasma albumin yamil urement (mass/volume)Ordered By: Melecio Torrez on 07-26-2023 Albumin [Mass/Vol] 3.2 g/dL 3.2-5.0 [facility] Thin prep Papanicolaou smear with manual screeningOrdered By: Melecio Torrez on 07-26-2023 Thin prep Papanicolaou smear with manual screening 22 U/L 15-37 [facility] Absolute lymphocyte countOrd ered By: Valentin Ceballos on 07-25-2023 Lymphocytes Auto (Unsp spec) [#/Vol] 1.03 10*3/uL 0.83-4.51 [facility] Basophil percentageOrdered B y: Valentin Ceballos on 07-25-2023 Basophils/100 WBC (Bld) 0.5 % 0-1 [facility] Chloride [Moles/Vol] 111 mmol/L 98-107 [facility] Eosinophils/100 WBC (Bld) 0.1 % 0-5 [facility] Glucose [Mass/Vol] 146 mg/dL 74-106 [facility] Comment on above: Fasting Glucose resu lt greater than or equal to 126 mg/dL suggests DIABETES MELLITUS per A.D.A. criteria. Neutrophils (Bld) [#/Vol] 16.7 10*3/uL 2.0-7.7 [facility] Neutrophils/100 WBC (Bld) 88.1 % 47-70 [facility] Potassium [Moles/Vol] 3.7 mmol/L 3.5-5.1 [facility] Sodium [Moles/Vol] 142 mmol/L 136-145 [facility] WBC (Bld) [#/Vol] 19.0 10*3/uL 4.4-11.0 [facility] Blood erythrocytes count (nu mber/volume)Ordered By: Valentin Ceballos on 07-25-2023 RBC (Bld) [#/Vol] 4.88 10*6/uL 4.2-5.4 [facility] Blood hemoglobin measurement (mass/volume)Ordered By: Valentin Ceballos on 07-25-2023 Hemoglobin (Bld) [Mass/Vol] 13.9 g/dL 12.0-15.0 [facility] Blood lymphocytes/100 leukoc ytesOrdered By: Valentin Ceballos on 07-25-2023 Lymphocytes/100 WBC (Bld) 5.4 % 19-41 [facility] Blood monocytes/100 leukocyt esOrdered By: Valentin Ceballos on 07-25-2023 Monocytes/100 WBC (Bld) 5.4 % 0-10 [facility] Blood platelet mean volumeOr dered By: Valentin Ceballos on 07-25-2023 Platelet mean volume (Bld) [Entitic vol] 10.6 fL 6.2-12.0 [facility] Determination of erythrocyte mean corpuscular volume (MCV)Ordered By: Valentin Ceballos on 07-25-2023 MCV (RBC) [Entitic vol] 88.5 fL 81-99 [facility] Hematocrit Auto (Bld) [Volum e fraction]Ordered By: Valentin Ceballos on 07-25-2023 Hematocrit (Bld) [Volume fraction] 43.2 % 37-47 [facility] - Chemistry and C hemistry - challengeOrdered By: Valentin Ceballos on 07-25-2023 CO2 [Moles/Vol] 21.0 mmol/L 21.0-32.0 [facility] Natriuretic peptide B (Bld) [Mass/Vol] 383.4 pg/mL 0-100 [facility] Urea nitrogen/Creatinine [Mass ratio] 16.3 mg/mg 10-20 [facility] - Hematology and Cell countsOrdered By: Valentin Ceballos on 07-25-2023 Erythrocyte distribution width (RBC) [Entitic vol] 45.2 fL 35.1-43.9 [facility] Erythrocyte distribution width (RBC) [Ratio] 14.1 % 11.6-14.6 [facility] Immature granulocytes/100 WBC (Bld) 0.500 % 0.0-0.9 [facility] Comment on above: IG% - Immature Granu locytes (promyelocytes, myelocytes and metamyelocytes) > 1% indicates that a LEFT SHIFT is Present. MCH (RBC) [Entitic mass] 28.5 pg 27.0-32.0 [facility] Nucleated RBC/100 WBC (Bld) [Ratio] 0 % 0-5 [facility] MCHC Auto (RBC) [Mass/Vol]Or dered By: Valentin Ceballos on 07-25-2023 MCHC (RBC) [Mass/Vol] 32.2 g/dL 32-36 [facility] No Panel InformationOrdered By: Valentin Ceballos on 07-25-2023 Troponin I High Sensitivity 2328 pg/mL 3.0-54.0 [facility] Comment on above: Critical Result(s) C alled at: 21:09:57 07/25/2023 by: Dary Becerra to Kaye Baldwin. Results read back by same. Please Note: New Test Units and Gender Specific Reference Ranges. For more information see Policy Stat Procedure [facility] High Sensitivity Troponin (TNIH) and attachments. Estimated Creatinine Clearance Calc 29.36 ml/min [facility] Estimated GFR (MDRD) Amer 47 mL/min >60 [facility] Comment on above: GFR Calc Estimated GFR (MDRD) Non-Af Amer 39 mL/min >60 [facility] Comment on above: Non- GFR Calc Platelets bldOrdered By: Jozef Ceballos on 07-25-2023 Platelets (Bld) [#/Vol] 429 10*3/uL 150-450 [facility] Serum or plasma calcium yamil urement (mass/volume)Ordered By: Valentin Ceballos on 07-25-2023 Calcium [Mass/Vol] 9.3 mg/dL 8.5-10.1 [facility] Serum or plasma creatinine m easurement (mass/volume)Ordered By: Valentin Ceballos on 07-25-2023 Creatinine [Mass/Vol] 1.41 mg/dL 0.55-1.02 [facility] Comment on above: The validity of the calculated GFR & GFRAA in patients over 70 years has not been determined. Clinical correlation is essential. Serum or plasma urea nitroge n measurement (mass/volume)Ordered By: Valentin Ceballos on 07-25-2023 Urea nitrogen [Mass/Vol] 23 mg/dL 7-18 [facility] Thin prep Papanicolaou smear with manual screeningOrdered By: Valentin Ceballos on 07-25-2023 Thin prep Papanicolaou smear with manual screening 10 - [facility] Culture, urineOrdered By: Edith Hargrove on 06-05-2023 Bacteria identified Cx Nom (U) Escherichia coli [facility] Vital Signs Date Time Vital Sign Value Performing Clinician Faci lity 05-17-2025 09:17-0400 Body temperature 98.2 [degF] Dr. Phuc Barker MD Work Phone: [facility] 05-17-2025 09:17-0400 Body weight 74.[address] Phuc Barker MD Work Phone: [facility] 05-17-2025 09:17-0400 Diastolic blood pressure 74 mm[Hg] Dr. Phuc Barker MD Work Phone: [facility] 05-17-2025 09:17-0400 Heart rate 75 /min Dr. Phuc Barker MD Work Phone: [facility] 05-17-2025 09:17-0400 Respiratory rate 17 /min Dr. Phuc Barker MD Work Phone: [facility] 05-17-2025 09:17-0400 SaO2% (BldA) [Mass fraction] 96 % Dr. Phuc Barker MD Work Phone: [facility] 05-17-2025 09:17-0400 Systolic blood pressure 126 mm[Hg] Dr. Phuc Barker MD Work Phone: [facility] 04-20-2025 13:06-0400 Body height 156.2 cm Sultana Garcia Work Phone: [facility] 04-20-2025 13:06-0400 Body mass index (BMI) [Ratio] 29.37 kg/m2 Sultana Garcia Work Phone: [facility] 04-20-2025 13:06-0400 Body temperature 97.9 [degF] Sultana Garcia Work Phone: [facility] 04-20-2025 13:06-0400 Body weight 71.67 kg Sultana Garcia Work Phone: [facility] 04-20-2025 13:06-0400 Diastolic blood pressure 78 mm[Hg] Sultana Garcia Work Phone: [facility] 04-20-2025 13:06-0400 Heart rate 67 /min uSltana Garcia Work Phone: [facility] 04-20-2025 13:06-0400 SaO2% (BldA) [Mass fraction] 95 % Sultana Garcia Work Phone: [facility] 04-20-2025 13:06-0400 Systolic blood pressure 123 mm[Hg] Sultana Garcia Work Phone: [facility] 03-23-2024 14:15-0400 Heart rate 69 /min Casimiro Torrez MD Work Phone: [facility] 03-23-2024 14:15-0400 Respiratory rate 17 /min Casimiro Torrez MD Work Phone: [facility] 03-23-2024 14:15-0400 SaO2% (BldA) [Mass fraction] 98 % Casimiro Torrez MD Work Phone: [facility] 03-23-2024 14:05-0400 Body temperature 97.2 [degF] Casimiro Torrez MD Work Phone: [facility] 03-23-2024 14:05-0400 Diastolic blood pressure 53 mm[Hg] Casimiro Torrez MD Work Phone: [facility] 03-23-2024 14:05-0400 Systolic blood pressure 100 mm[Hg] Casimiro Torrez MD Work Phone: [facility] 12-03-2023 07:53-0400 Heart rate 55 /min Dr. Awa Hargrove Work Phone: [facility] 12-03-2023 07:50-0400 Body temperature 98.2 [degF] Dr. Awa Hargrove Work Phone: [facility] 12-03-2023 07:50-0400 Diastolic blood pressure 44 mm[Hg] Dr. Awa Hargrove Work Phone: [facility] 12-03-2023 07:50-0400 Respiratory rate 16 /min Dr. Awa Hargrove Work Phone: [facility] 12-03-2023 07:50-0400 SaO2% (BldA) [Mass fraction] 96 % Dr. Awa Hargrove Work Phone: [facility] 12-03-2023 07:50-0400 Systolic blood pressure 105 mm[Hg] Dr. Awa Hargrove Work Phone: [facility] 12-02-2023 08:56-0400 Body height 154.[address] Awa Hargrove Work Phone: [facility] 12-02-2023 08:56-0400 Body mass index (BMI) [Ratio] 30.8 kg/m2 Dr. Awa Hargrove Work Phone: [facility] 12-02-2023 08:56-0400 Body weight 74.[address] Awa Hargrove Work Phone: [facility] 12-01-2023 14:15-0400 Body temperature 98 [degF] Dr. Awa Hargrove Work Phone: [facility] 12-01-2023 14:15-0400 Diastolic blood pressure 76 mm[Hg] Dr. Awa Hargrove Work Phone: [facility] 12-01-2023 14:15-0400 Heart rate 48 /min Dr. Awa Hargrove Work Phone: [facility] 12-01-2023 14:15-0400 Respiratory rate 14 /min Dr. Awa Hargrove Work Phone: [facility] 12-01-2023 14:15-0400 SaO2% (BldA) [Mass fraction] 98 % Dr. Awa Hargrove Work Phone: [facility] 12-01-2023 14:15-0400 Systolic blood pressure 128 mm[Hg] Dr. Awa Hargrove Work Phone: [facility] 12-01-2023 10:07-0400 Body height 154.[address] Awa Hargrove Work Phone: [facility] 12-01-2023 10:07-0400 Body mass index (BMI) [Ratio] 30.8 kg/m2 Dr. Awa Hargrove Work Phone: [facility] 12-01-2023 10:07-0400 Body weight 74.[address] Awa Hargrove Work Phone: [facility] 07-27-2023 12:39-0500 Body temperature 97.8 [degF] Dr. Awa Hargrove Work Phone: [facility] 07-27-2023 12:39-0500 Diastolic blood pressure 85 mm[Hg] Dr. Awa Hargrove Work Phone: [facility] 07-27-2023 12:39-0500 Heart rate 76 /min Dr. Awa Hargrove Work Phone: [facility] 07-27-2023 12:39-0500 Respiratory rate 16 /min Dr. Awa Hargrove Work Phone: [facility] 07-27-2023 12:39-0500 SaO2% (BldA) [Mass fraction] 95 % Dr. Awa Hargrove Work Phone: [facility] 07-27-2023 12:39-0500 Systolic blood pressure 143 mm[Hg] Dr. Awa Hargrove Work Phone: [facility] 07-25-2023 22:10-0500 Body height 157.[address] Awa Hargrove Work Phone: [facility] 07-25-2023 22:10-0500 Body mass index (BMI) [Ratio] 28.3 kg/m2 Dr. Awa Hargrove Work Phone: [facility] 07-25-2023 22:10-0500 Body weight 70.[address] Awa Hargrove Work Phone: [facility] 07-25-2023 21:53-0500 Body temperature 98.2 [degF] [facility] 07-25-2023 21:53-0500 Diastolic blood pressure 92 mm[Hg] [facility] 07-25-2023 21:53-0500 Heart rate 61 /min [facility] 07-25-2023 21:53-0500 Respiratory rate 20 /min [facility] 07-25-2023 21:53-0500 SaO2% (BldA) [Mass fraction] 96 % [facility] 07-25-2023 21:53-0500 Systolic blood pressure 182 mm[Hg] [facility] 07-25-2023 17:02-0500 Body height 157.[address] [facility] 07-25-2023 17:02-0500 Body mass index (BMI) [Ratio] 29.5 kg/m2 [facility] 07-25-2023 17: Body weight 73.[address] [facility] Encounters Encounter Date Encounter Type Care Provider Facility Start: 2025 End: 2025 ambulatory Phuc Barker Facility:[facility] Start: 07-12-2025 ambulatory Devendra Beverly Facility: [facility] Start: 07-06-2025 ambulatory Phuc Barker Facility:[facility] Start: 06-29-2025 ambulatory Phuc Barker Facility:[facility] Start: 06-03-2025 End: 06-03-2025 ambulatory Phuc Barker Facility:[facility] Start: 06-01-2025 End: 06-01-2025 ambulatory [facility] Facility:[facility] Start: 05-17-2025 End: 05-17-[address] Phuc Barker MD Work Phone: -[facility] Start: 05-17-2025 End: 05-17-[address] Giovanny Brady MD -[facility] Work Phone: Start: 05-17-2025 End: 05-17-[address] Giovanny Brady MD -[facility] Work Phone: Start: 05-17-2025 End: 05-17-[address] Phuc Barker MD Work Phone: -[facility] Start: 05-17-2025 End: 05-17-2025 ambulatory Giovanny Brady Facility:[facility] Start: 05-14-2025 End: 05-14-2025 ambulatory [facility] Start: 05-04-2025 ambulatory Bonnie Perera ity:[facility] Start: 05-04-[address] Ebonie Chang MD -[facility] Start: 04-29-2025 End: 04-29-2025 Telephone encounter [...] 04-06-[address] Devendra delacruz MD -[facility] Start: 04-06-2025 End: 04-06-2025 ambulatory Devendra MCCLELLAND Facility:[facility] Start: 03-30-[address] Devendra delacruz MD -[facility] Start: 03-30-2025 End: 03-30-2025 ambulatory Phuc Barker Facility:[facility] Start: 02-12-2025 ambulatory Devendra MCCLELLAND Facil ity:[facility] Start: 02-12-[address] Devendra delacruz MD [facility] Start: 01-13-2025 End: 01-13-[address] Phuc Barker MD Work Phone: [facility] Work Phone: Start: 01-13-2025 End: 01-13-[address] Johana Landrum MD -[facility] Start: 01-13-2025 End: 01-13-2025 ambulatory Johana MCCLELLAND Facility:[facility] Start: 12-02-2024 End: 12-02-[address] Johana Landrum MD -[facility] Start: 12-02-[address] Johana Landrum MD -[facility] Start: 12-02-2024 End: 12-02-2024 ambulatory Johana MCCLELLAND Facility:[facility] Start: 11-30-2024 End: 11-30-[address] Phuc Barker MD Work Phone: [facility] Work Phone: Start: 11-30-2024 End: 11-30-[address] Johana Landrum MD -[facility] Start: 11-30-2024 End: 11-30-2024 ambulatory Johana MCCLELLAND Facility:[facility] Start: 11-12-2024 End: 11-12-2024 ambulatory [facility] Start: 09-21-2024 End: 09-21-[address] Johana Landrum MD -[facility] Start: 09-21-2024 End: 09-21-2024 ambulatory Phuc Barker Facility:[facility] Start: 08-31-2024 End: 08-31-[address] 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 Edith Hargrove Work Phone: [facility] Work Phone: Start: 12-03-2023 Non-patient / Non-visit Dr. Edith Hargrove Work Phone: [facility] Start: 12-02-2023 Non-patient / Non-visit Dr. Edith Hargrove Work Phone: [facility] Work Phone: Start: 12-02-2023 Non-patient / Non-visit Dr. Edith Hargrove Work Phone: [facility] Start: 12-01-2023 End: 12-03-2023 Evaluation and management of inpatient Dr. Awa Hargrove [facility] Work Phone: Start: 12-01-2023 Non-patient / Non-visit Dr. Edith Hargrove Work Phone: [facility] Work Phone: Start: 10-25-2023 End: 10-25-[address] Awa Hargrove Work Phone: [facility] Work Phone: Start: 09-16-2023 End: 09-16-[address] Awa Hargrove Work Phone: [facility] Work Phone: Start: 09-16-2023 End: 09-16-[address] Awa Hargrove Work Phone: [facility], [facility] Work Phone: Start: 07-29-2023 Non-patient / Non-visit Dr. Edith Hargrove Work Phone: [facility] Start: 07-27-2023 Non-patient / Non-visit Dr. Edith Hargrove Work Phone: [facility] Work Phone: Start: 07-26-2023 Non-patient / Non-visit Dr. Edith Hargrove Work Phone: [facility] Start: 07-26-2023 Non-patient / Non-visit Dr. Edith Hargrove Work Phone: [facility] Work Phone: Start: 07-25-2023 End: 07-25-2023 Non-patient / Non-visit Dr. Awa Hargrove Work Phone: [facility] Work Phone: Start: 07-25-2023 End: 07-27-2023 Evaluation and management of inpatient [facility] Work Phone: Start: 06-05-2023 End: 06-05-2023 Patient encounter procedure [facility], Specimen Work Phone: Start: 10-20-2021 End: 10-20-2021 Discharged Recurring [facility] Procedures Date Procedure Procedure Detail Performing Clinician Start: 06-01-[address] Phuc Barker MD Work Phone: Start: 05-17-[address] Phuc Barker MD Work Phone: Comment on above: Performed at: [address] [id number] Director: Rk Petty MD, Phone: [phone] at: CB - [facility] [address] [id number] Director: Hussein Aguilar PhD, Phone: [phone] Start: 05-17-2025 Antibody to [address]re measurement Dr. [...] Phuc dotson MD Work Phone: Start: 05-17-2025 NUTRITION AIDES TEACHER antibody measurement Dr. Phuc rae MD Work [...] RSV Vaccine (1 - 1-dose 75+ series) [facility] Start: 04-20-2028 Diabetes Screening Diabetes Screening [facility] Start: 08-27-2027 Screening for malignant neoplasm of colon [facility] Start: 06-22-2027 Diabetes Screening Diabetes Screening [facility] Start: 06-20-2027 Diabetes Screening Diabetes Screening [facility] Start: 03-02-2027 Diabetes Screening Diabetes Screening [facility] Start: 07-30-2025 End: 10-29-2025 CBC W Auto Differential panel - Blood COMPLETE BLOOD COUNT AND DIFFERENTIAL Lab STAT 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 Start: 05-18-2025 Electroencephalogram [facility] Start: 05-03-2025 Influenza vaccination Influenza Vaccine (#1) [facility] Start: 03-03-2025 Lipid panel Lipid Screening [facility] Start: 09-02-2024 Advance Directive Discussion Advance Directive Discussion [facility] Start: 09-02-2024 Medicare Advantage Annual Wellness Visit Medicare Advantage Annual Wellness Visit [facility] Start: 07-23-2024 End: 07-23-2024 Patient encounter procedure 07/23/2024 1:30 PM EST Office Visit [facility] [address] [place] [id number] Sosa Salas, REED.POWER DRIVEN BRUSH MAKER [address] [place] [address] SDH (subdural hematoma) (HCC) [S06.5XAA [facility] Comment on above: SDH (subdural hematoma) (HCC) [S06.5XAA Start: 07-20-2024 End: 07-20-2024 Patient encounter procedure 07/20/2024 11:00 AM EST Appointment [facility] [address] [place] [id number] SDH (subdural hematoma) (HCC) [S06.5XAA [facility] Comment on above: SDH (subdural hematoma) (HCC) [S06.5XAA Start: 05-03-2024 Covid-19 Vaccine ( season) Covid-19 Vaccine ( season) [facility] Start: 05-03-2024 Influenza vaccination Influenza Vaccine (#1) [facility] Start: 04-13-2024 End: 04-13-2024 Admission to same day surgery center 04/13/2024 11:30 AM EDT [facility] GENER[facility] DEPARTMENT [facility] [facility] [address] [place] [address] Jules Alvarez MD [address] [place] [address] Go Over EGD/ CT Scan 03/06 [facility] Comment on above: Go Over EGD/ CT Scan 03/06 Start: 03-30-2024 End: 03-30-2024 Admission to same day surgery center 03/30/2024 11:00 AM EDT [facility] [address] [place] [address] Jules Alvarez MD [address] [place] [address] (Fax) Go Over EGD/ CT Scan 03/06 [facility] Comment on above: Go Over EGD/ CT Scan 03/06 Start: 03-23-2024 End: 03-23-2024 Patient encounter procedure 03/23/2024 8:00 AM EDT Appointment LUCY TORRES [address] [place] [address] Jules Alvarez MD [address] [place] [address] [facility] Start: 12-05-2023 Blood chemistry [facility] Start: 12-04-2023 Blood chemistry [facility] Start: 12-03-2023 Patient discharge [facility] Start: 12-02-2023 Electrocardiographic monitoring [facility] Start: 12-01-2023 Ambulation without limitation [facility] Start: 12-01-2023 Assessment of risk of venous thromboembolism [facility] Start: 12-01-2023 Documentation procedure [facility] Start: 12-01-2023 Insertion of catheter into peripheral vein [facility] Start: 12-01-2023 Providing care according to standard [facility] Start: 12-01-2023 Referral to general surgeon [facility] Start: 12-01-2023 [facility] Start: 12-01-2023 Verification routine [facility] Start: 12-01-2023 Admission procedure [facility] Start: 12-01-2023 Hospital admission, emergency, from emergency room, medical nature [facility] Start: 09-02-2023 Advance Directive Discussion Advance Directive Discussion [facility] Start: 09-02-2023 Behavioral Health Screening Behavioral Health Screening [facility] Start: 07-29-2023 Patient referral [facility] Work Phone: Start: 07-27-2023 Patient discharge [facility] Start: 07-26-2023 Notification of physician [facility] Start: 07-26-2023 Patient education [facility] Start: 07-26-2023 Provision of activity privileges [facility] Start: 07-26-2023 Pulse taking [facility] Start: 07-26-2023 Taking patient vital signs [facility] Start: 07-26-2023 Wound care [facility] Start: 07-26-2023 [facility] Start: 07-26-2023 Ultrasonography of breast Breast Limited Unilateral [facility] Start: 07-26-2023 US Breast limited [facility] Start: 07-26-2023 Referral to access control specialist [facility] Start: 07-26-2023 Admission procedure [facility] Start: 07-25-2023 End: 07-26-2023 Measuring intake and output [facility] Start: 07-25-2023 End: 07-26-2023 Providing care according to standard [facility] Start: 07-25-2023 Application of intermittent pneumatic compression device [facility] Start: 07-25-2023 Oxygen therapy [facility] Start: 07-25-2023 Tobacco use cessation education [facility] Start: 07-25-2023 Provision of activity privileges [facility] Start: 07-25-2023 Assessment of risk of venous thromboembolism [facility] Start: 07-25-2023 End: 07-26-2023 Insertion of catheter into peripheral vein [facility] Start: 07-25-2023 End: 07-25-2023 [facility] Start: 07-25-2023 Following clinical pathway protocol [facility] Start: 07-25-2023 Partial thromboplastin time, activated [facility] Start: 07-25-2023 Prothrombin time [facility] Start: 07-25-2023 Hospital admission, emergency, from emergency room, medical nature [facility] Start: 07-25-2023 End: 07-26-2023 [facility] Start: 05-03-2023 Covid-19 Vaccine ( season) Covid-19 Vaccine ( season) [facility] Start: 03-03-2021 Hepatitis B surface antibody level LDL Cholesterol [facility] Start: 2018 Pneumococcal Vaccine: 65+ (1 of 1 - PCV) Pneumococcal Vaccine: 65+ (1 of 1 - PCV) [facility] Start: 2018 Screening for osteoporosis Bone Density Screening [facility] Start: 2013 RSV Vaccine (1 - 1-dose 60+ series) RSV Vaccine (1 - 1-dose 60+ series) [facility] Start: 2003 Pneumococcal Vaccine: 50+ (1 of 1 - PCV) Pneumococcal Vaccine: 50+ (1 of 1 - PCV) [facility] Start: 2003 Shingrix Vaccine (1 of 2) Shingrix Vaccine (1 of 2) [facility] Start: 1998 Screening for malignant neoplasm of colon [facility] Start: 1993 Screening for malignant neoplasm of breast Mammogram Screening [facility] Start: 1972 Urine microalbumin profile DTaP,Tdap,Td Vaccine (1 - Tdap) [facility] Start: 1971 Annual PCP Team Chronic Disease Visit Annual PCP Team Chronic Disease Visit [facility] Start: 1971 Anxiety Screening Anxiety Screening [facility] Start: 1971 BP Controlled (<130/80) BP Controlled (<130/80) [facility] Start: 1971 Depression Screening Depression Screening [facility] Start: 1971 Hepatitis C screening Hepatitis C Screening [facility] Start: 1959 Pneumococcal Vaccine: 65+ (1 of 2 - PCV) Pneumococcal Vaccine: 65+ (1 of 2 - PCV) [facility] Blood ammonia measurement [facility] CT Abdomen and Pelvi s W contrast IV CT ABD/PEL W IVCON Radiology Routine Duodenal ulcer with hemorrhage 03/06/2024 12:15 PM EDT [facility] Work Phone: End: 07-20-2025 CT Head WO contrast CT BRAIN WO IVCON Radiology Routine SDH (subdural hematoma) (HCC) 1 Occurrences starting 06/20/2024 until 07/20/2025 [facility] Work Phone: Comment on above: 1 Occurrences starting 06/20/2024 until 07/20/2025 Cytoplasmic ANCA Screen [facility] Erythrocyte mean cor puscular volume determination [facility] Erythrocyte mean cor puscular volume determination [facility] Erythrocyte sediment ation rate [facility] Ferritin [Mass/volum e] in Serum or Plasma [facility] Folic acid measurement, RBC [facility] Hematocrit [Volume F raction] of Blood [facility] Hematocrit [Volume F raction] of Blood [facility] Hemoglobin [Mass/vol ume] in Blood [facility] Hemoglobin [Mass/vol ume] in Blood [facility] INR in Blood by Coag ulation assay [facility] Iron [Mass/mass] in Unspecified specimen [facility] Leukocytes [#/volume ] in Blood [facility] Leukocytes [#/volume ] in Blood [facility] Magnesium measurement [facility] Mean corpuscular hem oglobin concentration determination [facility] Mean corpuscular hem oglobin concentration determination [facility] Mean corpuscular hem oglobin determination [facility] Mean corpuscular hem oglobin determination [facility] MR Brain WO [facility] MR Cervical spine [facility] Neutrophil count [facility] Neutrophil count [facility] Neutrophil percent differential count [facility] Neutrophil percent differential count [facility] Patient referral [facility] Work Phone: Platelets [#/volume] in Blood [facility] Platelets [#/volume] in Blood [facility] Red blood cell count [facility] Red blood cell count [facility] Red cell distributio n width determination [facility] Red cell distributio n width determination [facility] SURGICAL PATHOLOGY SURGICAL PATH OLOGY Lab Routine Duodenal ulcer with hemorrhage Release Upon Ordering for 1 Occurrences starting 03/23/2024 [facility] Work Phone: Comment on above: Release Upon Ordering for 1 Occurrences starting 03/23/2024 Thiamine measurement [facility] Thyroid stimulating hormone measurement [facility] Vitamin B12 measurement [facility] Vitamin B6 measurement [facility] Vitamin D, 1,25-dihy droxy measurement [facility] Immunizations Immunization Date Immunization Notes Care Provider Anni nicolas 06-15-2024 Hepatitis B vaccine (recombinant), CpG adjuvanted Becca Garcia PA-C Work Phone: [facility] 05-11-2024 Hepatitis B vaccine (recombinant), CpG adjuvanted Becca Garcia PA-C Work Phone: [facility] Payers Date Payer Category Payer Unknown [id number] 2024 Medicare (Managed Care) [employer] HMO [id number] 2024 Medicaid [id number] 2024 Self-pay [id number] 2023 Unknown [facility] S AND BLUE SHIELD ANTH MEDICARE ADVANTAGE O [id number] 2023-Present [phone] [address] [place] [address] [facility] [id number] 2023 Medicare [id number] 1955 Unknown [id number]. 1244 1955 Unknown [id number]. 124 Medicare [id number] Unknown [id number] Unknown [id number] 2.16.840.1.167587.3.579.2. 462 Unknown [id number] 2.16.840.1.375894.3.579.2. 462 Unknown [id number] 2.16.840.1.250480.3.579.2. 462 Unknown [id number] 2.16.840.1.317578.3.579.2. 462 Unknown [id number] 2.840.1.413029.3.579.2. 462 Unknown [id number] 2.840.1.326338.3.579.2. 462 Unknown [id number] 2.840.1.471861.3.579.2. 462 Unknown [id number] 2.840.1.716260.3.579.2. 462 Unknown [id number] 2.840.1.052164.3.579.2. 462 Unknown [id number] 2.840.1.955138.3.579.2. 462 Unknown [id number] 2.840.1.514375.3.579.2. 462 Unknown [id number] 2.840.1.681394.3.579.2. 462 Unknown [id number] 2.840.1.026363.3.579.2. 462 Unknown [id number] 2.840.1.932931.3.579.2. 462 Unknown [id number] 2.840.1.303398.3.579.2. 462 Unknown [id number] 2.840.1.471121.3.579.2. 462 Unknown [id number] 2.16.840.1.397345.3.579.2. 462 Unknown [id number] 2.840.1.287448.3.579.2. 462 Unknown [id number] 2.840.1.152173.3.579.2. 462 Unknown [id number] 2.16.840.1.259426.3.579.2. 462 Unknown [id number] 2..840.1.198617.3.579.2. 462 Unknown [id number] 2.16.840.1.030799.3.579.2. 462 Unknown [id number] 2.840.1.555391.3.579.2. 462 Social History Date Type Detail Facility Start: 09-22-2021 End: 12-01-2023 Tobacco smoking status CAIS Unknown if ever smoked [facility] Start: 1955 Sex Assigned At Female [facility] Start: 02-19-2024 End: 07-24-2024 Tobacco smoking status NHIS Never smoked tobacco [facility] Start: 02-19-2024 Tobacco use and exposure Smokeless tobacco non-user [facility] Start: 02-19-2024 End: 04-20-2025 Alcohol intake Ex-drinker (finding) [facility] Start: 02-19-2024 End: 02-25-2024 History of Social function [facility] Start: 02-19-2024 End: 02-25-2024 Tobacco use panel [facility] Start: 12-18-2023 National Score (1-100), lower number is lower risk 96 [facility] Start: 1955 Sex Assigned At Not on file [facility] Start: 12-15-2024 Sex Female (finding) [facility] NEGATED: Highlighted row [facility] Goals Date Patient Goal Desired Activity /State Functional Status Date Assessment Result Facility 06-24-2024 Are you deaf, or do you have serious difficulty hearing No 06/24/2024 3:21 PM Marisela Thompson RN No [facility] 06-24-2024 Are you blind, or do you have serious difficulty seeing, even when wearing glasses No 06/24/2024 3:21 PM Marisela Thompson RN No [facility] 06-24-2024 Do you have serious difficulty walking or climbing stairs Yes 06/24/2024 3:21 PM Marisela Thompson RN Yes [facility] 06-24-2024 Do you have difficul ty dressing or bathing Yes 06/24/2024 3:21 PM Marisela Thompson RN Yes [facility] 06-24-2024 Because of a physica l, mental, or emotional condition, do you have difficulty doing errands alone such as visiting a physician's office or shopping Yes 06/24/2024 3:21 PM Marisela Thompson RN Yes [facility] 12-03-2023 Functional status Bathroom Privilege [facility] Work Phone: 07-27-2023 Functional status Ambulates;Bath room Privilege [facility] Work Phone: Mental Status Date Assessment Result Facility 06-24-2024 Because of a physica l, mental, or emotional condition, do you have serious difficulty concentrating, remembering, or making decisions No 06/24/2024 3:21 PM Marisela Thompson RN No [facility] 12-02-2023 Cognitive function Voice/Name [facility] Work Phone: 07-27-2023 Cognitive function Awake;Alert;A ppropriate; Follows Commands [facility] Work Phone: 07-27-2023 Cognitive function Voice/Name [facility] Work Phone: 07-25-2023 Cognitive function Voice/Name [facility] Work Phone: Clinical Notes 07-25-2023 to 05-17-2025 Note Date & Type Note Facility 05-17-2025 Evaluation note Diagnosis Onset Date Resolution Abnormal gait acute May 032024 9:05am Anemia acute May 9:05am Dementia acute May 9:05am Neck pain acute May 9:05am Chronic intracranial subdural hematoma chronic May 9:05am [facility] Work Phone: 1(852) 267-834608-28-2025 Telephone encounter Note* Telephone Encounter - Jazzy Arciniega LPN - 04/29/2025 2:51 PM EDT I called and spoke to Hope, patient's nurse at [facility]. Patient is scheduled to see nephrology in early June. She also has a CBC drawn every 28 days; Hope will fax the results in July (3 month CBC). Jazzy Arciniega LPN [facility]08-28-2025 Miscellaneous Notes* Telephone Encounter - Jazzy Arciniega LPN - 04/29/2025 2:51 PM EDT I called and spoke to Hope, patient's nurse at [facility]. Patient is scheduled to see nephrology [...] stability. (Orders entered) Pt currently resides in [facility]. I attempted to reach spouse number rang busy. No answeron daughter Jeanette's phone (she was present for appt) Case and labs reviewed with Dr Vivas. Sultana Garcia APRN.[employer]OWER [employer]KER documented in this encounterDelaware [facility]08-28-2025 Telephone encounter Note * Telephone Encounter [...] stability. (Orders entered) Pt currently resides in [facility]. I attempted to reach spouse number rang busy. No answeron daughter Jeanette's phone (she was present for appt) Case and labs reviewed with Dr Vivas. Sultana Garcia APRN.[employer]OWER [employer] [facility]08-21-2025 Telephone encounter Note* Telephone Encounter - Radha Nichols LPN - 04/22/2025 11:06 AM EDT Labs faxed as directed. Radha Nichols LPN [facility]08-21-2025 Miscellaneous Notes* Telephone Encounter - Radha Nichols LPN - 04/22/2025 11:06 AM EDT Labs faxed as directed. Radha Nichols LPN * Telephone Encounter - Yazmin Medel - 04/22/2025 10:24 AM EDT Please fax 04/20 lab results to [facility] at [phone] documented in this encounterDelaware [facility]08-21-2025 Telephone encounter Note * Telephone Encounter - Yazmin Medel - 04/22/2025 10:24 AM EDT Please fax 04/20 lab results to [facility] at [phone] [facility] Work Phone: 1(459) 658-913008-19-2025 Instructions* Patient Instructions* Sultana Garcia - 04/20/2025 2:09 PM EDT Labs today Follow up pending labs for possible IV iron and aranesp injection documented in this encounterDelaware [facility] Hospital08-19-2025 NoteHNO ID: [id number] Author: SULTANA GARCIA, ? Service: ? Author [...] daughter Jeanette as a 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 She is a poor historian, rather tangential. Currently resides in a prison facility since last year. Per chart review [...] daily at bedtime. sodium phosphate,mono-dibasic (FLEET ENEMA [place]) 1 suppository by RECTAL route as needed. [...] bedtime. (Patient not taking (more content not included)...[facility]08-19-2025 History of Present illness Narrative* Sultana Garcia - 04/20/2025 1:06 PM EDT Progress Note Zahida Beltre 1955 Encounter date: 04/20/2025 HPI: Zahida Beltre is a 69 year old female with extensive PMH of Kidney failure hx of dialysis for about 6 - 8 months, CAD, subdural hematoma, HTN, Chronic anemia. She presents today with her daughter Jeanette as a 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 She is a poor historian, rather tangential. Currently resides in a prison facility since last year. Per chart review [...] daily at bedtime. sodium phosphate,mono-dibasic (FLEET ENEMA [place]) 1 suppository by RECTAL route as needed. [...] as a new anemia referral by her box spring frame builder Dr Marie Anemia, chronic - likely multifactorial [...] for possible IV iron and aranesp injection uSltana Garcia APRN.[employer]OWER [employer]IV[employer] MAKER I spent a total of 60 minutes on the date of the service which included preparing to see the patient, [id number] patient care, completing clinical documentation, obtaining and/or [...] Drug use: Not Currently documented in [facility] encounterDel[facility]11-20-2024 [facility]10-21-2024 History of Present illness Narrative* Renita Knott APRN.[employer] - 06/22/2024 3:43 PM EDT [facility] Outpatient Parenteral Antimicrobial Therapy (OPAT) Start Form Patient Info Patient MRN Patient Name Address Date of [id number] Kary Haddad [address] [facility] [address] 1955 Start Date 06/22/2024 Physician Group Cc_phi [...] Treatment Course Kee Singh III, MD Address [address] [place] [address] documented in this encounterDelaware [facility] Hospital07-22-2024 History and physical note * Noemy Jaramillo APRN.[employer]OWER [employer] - 03/23/2024 12:25 PM EDT HISTORY [...] Hemorrhage Pre-Op Examination Coronary Artery Disease Involving [place] Coronary Artery of [place] Heart Without Angina Pectoris Htn (Hypertension) Mixed Hyperlipidemia Subjective CHIEF COMPLAINT: Preoperative Examination HPI: Patient present to [facility] for the above procedure. Patient here for routine Upper GI Endoscopy screening. Patient had an EGD in December in [place]. This demonstrated an adrenal nodule that was [...] CP and palpitations. +HTN +HLD +hx of TX +CAD GI: See HPI. : Denies dysuria. [...] Continue as prescribed. Coronary artery disease involving hoopa coronary artery of hoopa heart without angina pectoris Current Assessment & Plan TX in 07/2023. No cardiac stents. Does not follow with cardiology. Managed by PCP. Patient has all medical care in [place]- unable to access any cardiac imaging through [facility] or Care Everywhere. Gastrointestinal Duodenal ulcer with [...] which included preparing to see the patient, [id number] patient care, completing clinical documentation, and performing a medically appropriate examination. Instructions Given to Patient: Patient given verbal preop instructions and voices comprehension and compliance. SIGNATURE: Noemy Jaramillo APRN.CNP PATIENT NAME: Kary Haddad DATE: March 23, 2024 TIME: 10:48 AM PAGER/CONTACT #: [facility]07-22-2024 History and physical note* Noemy Jaramillo [...] Hemorrhage Pre-Op Examination Coronary Artery Disease Involving [place] Coronary Artery of [place] Heart Without Angina Pectoris Htn (Hypertension) Mixed Hyperlipidemia Subjective CHIEF COMPLAINT: Preoperative Examination HPI: Patient present to [facility] for the above procedure. Patient here for routine Upper GI Endoscopy screening. Patient had an EGD in December in [place]. This demonstrated an adrenal nodule that was [...] CP and palpitations. +HTN +HLD +hx of TX +CAD GI: See HPI. : Denies dysuria. [...] Continue as prescribed. Coronary artery disease involving hoopa coronary artery of hoopa heart without angina pectoris Current Assessment & Plan TX in 07/2023. No cardiac stents. Does not follow with cardiology. Managed by PCP. Patient has all medical care in [place]- unable to access any cardiac imaging through [facility] or Care Everywhere. Gastrointestinal Duodenal ulcer with [...] which included preparing to see the patient, [id number] patient care, completing clinical documentation, and performing a medically appropriate examination. Instructions Given to Patient: Patient given verbal preop instructions and voices comprehension and compliance. SIGNATURE: Noemy Jaramillo APRN.CNP PATIENT NAME: Kary Haddad DATE: March 23, 2024 TIME: 10:48 AM PAGER/CONTACT #: documented in this encounterDelaware [facility] Hospital07-05-2024 History of Present illness Narrative* Didi [...] PATIENT PRESENTS WITH AN IMPLANTABLE OR ATTACHED CORE WORKER: No ALLERGIES: Reviewed and unchanged CONTRAST ALLERGY: [...] 2024 TIME: 4:12 PM documented in this encounterDelaware [facility] Hospital04-02-2024 Consult note Author Bhaskar Grimes [facility] December 03, 2023 10:02am Note Date/Time December 03, 2023 10:0 2am [facility] Medical Records Department [address] [place] [address] Counseling Note - Pharmacy 12/03/23 1002 MR#: [id number] Acct: [id number] Name: KARY HADDAD Rep #:[id number] : 1955 68 From: Bhaskar Grimes PCP: Dr. Awa Hargrove, DO Status:ADM IN Y Location: [place] [address] Pharmacy [facility] Service has performed discharge [...] Signature (if applicable): Date CC: ~ Signed [facility] Work Phone: 1(605) 174-586704-02-2024 Discharge summary Author Ronald Lowe [facility] December 03, 2023 8:59am Note Date/Time December 03, 2023 8:56 am [facility] Medical Records Department [address] [place], [place] [address] [place] [address] Discharge Summary 12/03/23 0854 MR#: [id number] Acct: [id number] Name: KARY HADDAD Rep #:[id number] : 1955 68 From: Ronald Lowe MD PCP: Dr. Awa Hargrove DO Status:ADM IN Location: [place] [address]1 Providers Date of Admission: 12/01/23 Date of [...] % (Auto) 57.9, Lymph % (Auto) 26.7, [place] % (Auto) 9.9, Eos % (Auto) 4.4, [...] Self Care Charges/Coding Visit Charges Inpatient E&M: 98886 Disch Hosp >30min 12/03/23 0859 <Electronically signed by Ronald Lowe MD> Cosigner Signature (if applicable): CC: Dr. Ronald Lowe MD; Dr. Awa Hargrove DO~ Signed [facility] Work Phone: 1(266) 642-130004-02-2024 Progress note Author Jules Hudson [facility] December 03, 2023 7:00am Note Date/Time December 03, 2023 7:01 am [facility] Medical Records Department [address] [place] [address] Progress Note - Surgery 12/03/23 0659 MR#: [id number] Acct: [id number] Name: KARY HADDAD Rep #:[id number] : 1955 68 From: Jules pope MD PCP: Dr. Awa Hargrove DO Status:ADM IN Location: [place] [id number] Subjective Subjective The patient reported that she [...] % (Auto) 57.9, Lymph % (Auto) 26.7, [place] % (Auto) 9.9, Eos % (Auto) 4.4, [...] to tertiary care. Jules Hudson MD Pager: [facility] [address] [place] [address], [address] [place] [address] Office: 12/03/23 0700 <Electronically signed by Jules Hudson MD> Cosigner Signature (if applicable): CC: ~ Signed [facility] Work Phone: 1(266) 474-373104-01-2024 Progress note Author Ronald Lowe [facility] December 02, 2023 2:56pm Note Date/Time December 02, 2023 9:06 am [facility] Medical Records Department [address] [place] [address] Progress Note - Hospitalist 12/02/23900 MR#: [id number] Acct: [id number] Name: KARY HADDAD Rell Rep #:[id number] : 1955 68 From: Ronald Lowe MD PCP: Dr. Awa Hargrove, DO Status:ADM IN Location: [place] [address]-1 Reason for Visit Reason for Visit: Diagnoses [...] 71.5 H, Lymph % (Auto) 16.6 L, [place] % (Auto) 8.4, Eos % (Auto) 2.2, [...] % (Auto) Cancelled, Lymph % (Auto) Cancelled, [place] % (Auto) Cancelled, Eos % (Auto) Cancelled, [...] Drop Cells Cancelled, Ovalocytes Cancelled, Stomatocytes Cancelled, [place] Bodies Cancelled, [place] Cells Cancelled, Bite Cells Cancelled, Crenated Cell [...] % (Auto) 59.5, Lymph % (Auto) 25.7, [place] % (Auto) 9.6, Eos % (Auto) 3.8, [...] 12:39 EDT Reading Location ID and State: [address] [place] [address] , Service support , Chest X-Ray 12/01/23 14:13 IMPRESSION: 1. Degenerative changes, as described above. No demonstrated acute cardiopulmonary process. Electronically Signed: Jeremie Hernandez MD at 14:50 EDT Reading Location ID and State: [facility] / [place] , Service support , Physical Exam Narrative GENERAL: cooperative HEENT: [...] 50 Minutes Charges/Coding Visit Charges Inpatient E&M: 83622 [facility] Hosp L3 12/02/23 5415 <Electronically signed by Ronald Lowe MD> Cosigner Signature (if applicable): CC: ~ Signed [facility] Work Phone: 1(760) 210-504404-01-2024 Progress note Author Jules Hudson [facility] December 02, 2023 11:37am Note Date/Time December 02, 2023 11:3 7am [facility] Medical Records Department [address] [place] [address] Progress Note 12/02/23 1136 MR#: [id number] Acct: [id number] Name: KARY HADDAD Rep #:[id number] : 1955 68 From: Jules pope MD PCP: Dr. Awa Hargrove, DO Status:ADM IN Location: [facility] [id number] Progress Note I performed an EGD on [...] Carafate. Pathology pending. Jules Hudson MD Pager: [facility] [address] [place] [address] Outpatient [facility], [address] [place] [address] Office: 12/02/23 1138 <Electronically signed by Jules Hudson MD> Jules Hudson MD Cosigner Signature (if applicable): CC: ~ Signed [facility] Work Phone: 1(986) 881-394904-01-2024 Procedure [facility] 12-02-2023 Procedure [facility]04-01-2024 Progress note Author Jules Hudson [facility] December 02, 2023 7:12am Note Date/Time December 02, 2023 7:12 am [facility] Medical Records Department [address] [place] [address] Progress Note - Surgery 12/02/23710 MR#: [id number] Acct: [id number] Name: HADDADKARY D Rep #:[id number] : 1955 68 From: Jules pope MD PCP: Dr. Awa Hargrove, DO Status:ADM IN Location: [place] [address] Subjective Subjective Patient no complaints overnight and [...] 71.5 H, Lymph % (Auto) 16.6 L, [place] % (Auto) 8.4, Eos % (Auto) 2.2, [...] % (Auto) Cancelled, Lymph % (Auto) Cancelled, [place] % (Auto) Cancelled, Eos % (Auto) Cancelled, [...] Drop Cells Cancelled, Ovalocytes Cancelled, Stomatocytes Cancelled, [place] Bodies Cancelled, [place] Cells Cancelled, Bite Cells Cancelled, Crenated Cell [...] % (Auto) 59.5, Lymph % (Auto) 25.7, [place] % (Auto) 9.6, Eos % (Auto) 3.8, [...] 12:39 EDT Reading Location ID and State: 960 / [facility] in [place] , Service support , Chest X-Ray 12/01/23 14:13 IMPRESSION: 1. Degenerative changes, as described above. No demonstrated acute cardiopulmonary process. Electronically Signed: Jeremie Hernandez MD at 14:50 EDT Reading Location ID and State: 174 / [facility] in [place] , Service support , Physical Exam Const [...] the CT scan. Jules Hudson MD Pager: [facility] [address] [facility] [place] [address] Office: 12/02/23 0729 <Electronically signed by Jules Hudson MD> Cosigner Signature (if applicable): CC: ~ Signed [facility] Work Phone: 1(318) 765-573703-31-2024 History and physical note Author Phillip Kingsley [facility] December 01, 2023 3:13pm Note Date/Time December 01, 2023 3:1 2pm [facility] Medical Records Department [address] [place] [address] H&P Exam - Hospitalist 12/01/23 1507 MR#: [id number] Acct: [id number] Name: KARY HADDAD Rep #:[id number] : 1955 68 From: Phillip Kingsley DO PCP: Dr. Awa Hargrove DO Status:ADM PING Location: [facility] [id number] HPI - General General Date of Admission: [...] plan is for endoscopy on December 01. [facility] Medical History (Updated 12/01/23 @ 15:[address] Phlilip Kingsley DO) CAD (coronary artery disease) Cerebral [...] 71.5 H, Lymph % (Auto) 16.6 L, [place] % (Auto) 8.4, Eos % (Auto) 2.2, [...] with SCDs Charges/Coding Visit Charges Inpatient E&M: 39716 Init Hosp L3 12/01/23 1513 <Electronically signed by Phillip Kingsley DO> Cosigner Signature (if applicable): CC: Dr. Phillip Kingsley DO; Dr. Awa Hargrove DO~ Signed [facility] Work Phone: 1(123) 443-608403-31-2024 Discharge summary Author Raisa Calhoun [facility] December 01, 2023 2:35pm Note Date/Time December 01, 2023 10: 27am [facility] Medical Records Department [address] [place] [address] Emergency Department Summary 12/01/23 MR#: [id number] Acct: [id number] Name: KARY HADDAD Rep #:[id number] : 1955 68 From: Raisa Calhoun MD [...] colonoscopies, 1 of which showed some polyps. [facility] Medical History (Updated 12/01/23 @ 14:24 [...] 71.5 H Lymph % (Auto) 16.6 L [place] % (Auto) 8.4 Eos % (Auto) 2.2 [...] mucocele or similar process. Electronically Signed: Jeremie Hernanedz MD at 12:39 EDT , Treatment and [...] Leukocytosis, Duodenal mass Disposition Disposition: Acute Care [facility] What to do if you have Problems For any increased pain, shortness of breath, bleeding, nausea or vomiting, chestpain, or any unexpected problems, contact your Primary Care Provider. Call [facility] ([phone]) or report to the closest Emergency Room. Call 911 if necessary. 12/01/23 1435 <Electronically signed by Raisa Calhoun MD> Cosigner Signature (if applicable): CC: Dr. Awa Hargrove, DO ~ Signed [facility] Work Phone: 1(449) 681-318003-31-2024 Consult note Author Jules Hudson [facility] December 01, 2023 2:20pm Note Date/Time December 01, 2023 2:2 0pm [facility] Medical Records Department [address] [place] [address] Consultation - Surgical 12/01/23 1416 MR#: [id number] Acct: [id number] Name: KARY HADDAD Rep #:[id number] : 1955 68 From: Jules pope MD [...] proceed with procedure. Jules Hudson MD Pager: [facility] [address] [place] [address], [address] [place] [address] Office: HPI Consult Data Date of Consult: [...] or vomiting. She denies fevers or chills. [facility] Medical History (Updated 12/01/23 @ 14:18 by [...] 71.5 H, Lymph % (Auto) 16.6 L, [place] % (Auto) 8.4, Eos % (Auto) 2.2, [...] applicable): CC: Dr. Awa Hargrove, DO~ Signed [facility] Work Phone: 1(578) 982-471803-31-2024 Discharge summary Author Raisa Calhoun [facility] December 01, 2023 2:35pm Note Date/Time December 01, 2023 10: 27am [facility] Medical Records Department [address] [place] [address] Emergency Department Summary 12/01/23 MR#: [id number] Acct: [id number] Name: KARY HADDAD Rep #:[id number] : 1955 68 From: Raisa Calhoun MD [...] colonoscopies, 1 of which showed some polyps. [facility] Medical History (Updated 12/01/23 @ 14:24 [...] 71.5 H Lymph % (Auto) 16.6 L [place] % (Auto) 8.4 Eos % (Auto) 2.2 [...] Duodenal mass Disposition Disposition: Acute Care Hospital [facility] What to do if you have Problems For any increased pain, shortness of breath, bleeding, nausea or vomiting, chestpain, or any unexpected problems, contact your Primary Care Provider. Call [facility] ([phone]) or report to the closest Emergency Room. Call 911 if necessary. 12/01/23 1435 <Electronically signed by Raisa Calhoun MD> Cosigner Signature (if applicable): CC: Dr. Awa Hargrove, ~ Signed [facility] Work Phone: 1([phone]) 492-792501-15-2024 Procedure [facility] 07-27-2023 Discharge summary Author Ronald Lowe [facility] July 27, 2023 10:37am Note Date/Time July 27, 2023 10:32am [facility] Medical Records Department [address] [place] [address] Discharge Summary 07/27/23 1029 MR#: [id number] Acct: [id number] Name: KARY HADDAD Rell Rep #:[id number] : 1955 68 From: Ronald Lowe MD PCP: Dr. Awa Hargrove DO Status:ADM IN Location: [place] [address] Providers Date of Admission: 07/26/23 Date of [...] % (Auto) 65.5, Lymph % (Auto) 19.7, [place] % (Auto) 10.8 H, Eos % (Auto) [...] ordered:: Not indicated Statins at discharge?: Yes Reic/ARB at discharge?: Yes Beta Shantel at discharge?: Yes Done w/ Acute [place] measure.: Yes Documented LVEF (%): 50 Discharge [...] Self Care Charges/Coding Visit Charges Inpatient E&M: 06438 Disch Hosp >30min 07/27/23 1037 <Electronically signed by Ronald Lowe MD> Cosigner Signature (if applicable): CC: Dr. Ronald Lowe MD; Dr. Awa Hargrove DO~ Signed [facility] Work Phone: 1(784) 787-427011-24-2023 Progress note Author Ronald Lowe [facility] July 26, 2023 1:39pm Note Date/Time July 26, 2023 8:07am [facility] Medical Records Department [address] [place] [address] Progress Note - Hospitalist 07/26/23 0759 MR#: [id number] Acct: [id number] Name: KARY HADDAD Rep #:[id number] : 1955 68 From: Ronald Lowe MD PCP: Dr. Awa Hargrove DO Status:ADM IN Location: [place] [address] Reason for Visit Reason for Visit: Diagnoses [...] 88.1 H, Lymph % (Auto) 5.4 L, [place] % (Auto) 5.4, Eos % (Auto) 0.1, [...] (Auto) 69.2, Lymph % (Auto) 16.6 L, [place] % (Auto) 12.2 H, Eos % (Auto) [...] 18:23 EST Reading Location ID and State: [facility] / [place] Tel [phone], Service support , Chest CTA 07/25/23 18:45 [...] 52 Minutes Charges/Coding Visit Charges Inpatient E&M: 54460 Subs Hosp L3 07/26/23 9465 <Electronically signed by Ronald Lowe MD> Cosigner Signature (if applicable): CC: ~ Signed [facility] Work Phone: 1(572) 719-580911-24-2023 Progress note Author Zelalem David [facility] July 26, 2023 11:37am Note Date/Time July 26, 2023 11:37am [facility] Medical Records Department [address] [facility] [place] [address] Progress Note 07/26/23 1136 MR#: [id number] Acct: [id number] Name: KARY HADDAD Rep #:[id number] : 1955 68 From: Zelalem Hernandez MD PCP: Dr. Awa Hargrove, DO Status:ADM IN Location: [place] [address] Progress Note Mild proximal RCA and mid LAD disease. Chest pain and troponin elevation likelysecondary to severe uncontrolled hypertension at presentation. Also consider vasospasm. Recommend adequate control of blood pressure. Start on amlodipine for possible vasospasm. Continue aspirin. Risk factor modification. 07/26/23 1137 <Electronically signed by Zelalem Hernandez MD> Zelalem Hernandez MD Cosigner Signature (if applicable): CC: ~ Signed [facility] Work Phone: 1(577) 404-218411-24-2023 Consult note Author Zelalem [facility] July 26, 2023 9:40am Note Date/Time July 26, 2023 9:40am [facility] Medical Records Department [address] [place] [address] Consultation - Cardiology 07/26/23 0935 MR#: [id number] Acct: [id number] Name: KARY HADDAD Rep #:[id number] : 1955 68 From: Zelalem Hernandez MD PCP: Dr. Awa Hargrove, DO Status:ADM IN Location: [place] [address] Assessment & Plan Assessment/Plan (1) NSTEMI (non-ST [...] denies any previous history of heart disease. [facility] Medical History (Updated 07/25/23 @ 23:18 by [...] 88.1 H, Lymph % (Auto) 5.4 L, [place] % (Auto) 5.4, Eos % (Auto) 0.1, [...] (Auto) 69.2, Lymph % (Auto) 16.6 L, [place] % (Auto) 12.2 H, Eos % (Auto) 0.7, Baso % (Auto) 0.7, Absolute Neuts (auto)10.1 H, Absolute Lymphs (auto) 2.42, Nucleated RBC % 0, Differential Comment SCANNED, Diff Path Review December foll, Plt Morphology Comment LARGE, PT 14.7, [...] 88.1 H, Lymph % (Auto) 5.4 L, [place] % (Auto) 5.4, Eos % (Auto) 0.1, [...] (Auto) 69.2, Lymph % (Auto) 16.6 L, [place] % (Auto) 12.2 H, Eos % (Auto) [...] Hernandez MD; Dr. Awa Hargrove, DO~ Signed [facility] Work Phone: 1([phone]) 788-596311-24-2023 History and physical note Author Melecio Torrez [facility] July 25, 2023 11:25pm Note Date/Time July 25, 2023 11:17pm [facility] Medical Records Department [address] [place] [address] H&P Exam - Hospitalist 07/25/23 2258 MR#: [id number] Acct: [id number] Name: KARY HADDAD Rep #:[id number] : 1955 68 From: Melecio Torrez MD PCP: Dr. Awa Hargrove DO Status:ADM IN Location: [place] [address] HPI - General General Date of Admission: [...] no alcohol use, no other drug abuse. [facility] Medical History (Updated 07/25/23 @ 23:18 by [...] in the room throughout the examination as parts room assistant. The was also present in the room [...] 88.1 H, Lymph % (Auto) 5.4 L, [place] % (Auto) 5.4, Eos % (Auto) 0.1, [...] for NSTEMI. This was discussed with the access control specialist on-call,and the patient was started on heparin, [...] ACS also. Charges/Coding Visit Charges Inpatient E&M: 59855 Init Hosp L2 07/25/232319 <Electronically signed by [...] MD; Dr. Awa Hargrove DO ~* Signed [facility] Work Phone: 1(489) 151-850811-23-2023 Discharge summary Author Valentin Syedrus [facility] July 25, 2023 9:27pm Note Date/Time July 25, 2023 5:26pm [facility] Medical Records Department [address] [place] [address] Emergency Department Summary 07/25/23 MR#: [id number] Acct: [id number] Name: KARY HADDAD Rep #:[id number] : 1955 68 From: Valentin Caicedo PCP: [...] Oxygen Delivery Method Room Air [facility] [place] Medical decision making narrative: HISTORY OF [...] respiratory distress noted Breast: Breast exam performed parts room assistant Azul 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 Right breast with nipple [...] no anemia or thrombocytopenia BMP without significant [place] normalities, there is no anion gap to [...] 88.1 H Lymph % (Auto) 5.4 L [place] % (Auto) 5.4 Eos % (Auto) 0.1 Baso % (Auto) 0.5 Absolute Neuts (auto) 16.7 H Absolute Lymphs (auto) 1.03 Nucleated RBC % 0 Radiography Diagnostic Testing: Clinical Impression(s) from Imaging Studies Chest X-Ray 07/25/23 17:50 IMPRESSION: No radiographic evidence of acute cardiopulmonary disease. Electronically Signed: Сергей Altman DO at 18:23 EST Reading Location ID and State: [facility] / [place] Tel [phone], Service support , Discharge Plan Triage Chief Complaint: Chest Pain ED Provider: Valentin Ceballos Dx/Rx/DC Orders Primary Care Provider: Awa Hargrove Referrals: Awa Hargrove DO [Primary Care Provider] - What to do if you have Problems For any increased pain, shortness of breath, bleeding, nausea or vomiting, chestpain, or any unexpected problems, contact your Primary Care Provider. Call [facility] ([phone]) or report to the closest Emergency Room. Call 911 if necessary. 07/25/232126 <Electronically signed by Valentin Ceballos DO> Cosigner Signature (if applicable): CC: Dr. Awa Hargrove DO ~ Signed [facility] Work Phone: 1(393) 102-900111-23-2023 Discharge summary Author Valentin Ceballos [facility] July 25, 2023 9:27pm Note Date/Time July 25, 2023 5:26pm [facility] Medical Records Department [address] [facility] [place] [address] Emergency Department Summary 07/25/23 MR#: [id number] Acct: [id number] Name: KARY HADDAD Rep #:[id number] : 1955 68 From: Valentin Caicedo PCP: [...] respiratory distress noted Breast: Breast exam performed parts room assistant Azul 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 Right breast with nipple [...] 88.1 H Lymph % (Auto) 5.4 L [place] % (Auto) 5.4 Eos % (Auto) 0.1 Baso % (Auto) 0.5 Absolute Neuts (auto) 16.7 H Absolute Lymphs (auto) 1.03 Nucleated RBC % 0 Radiography Diagnostic Testing: Clinical Impression(s) from Imaging Studies Chest X-Ray 07/25/23 17:50 IMPRESSION: No radiographic evidence of acute cardiopulmonary disease. Electronically Signed: Сергей Altman DO at 18:23 EST Reading Location ID and State: [facility] / [place] Tel [phone], Service support , Discharge Plan Triage Chief Complaint: Chest Pain ED Provider: Valentin Ceballos Dx/Rx/DC Orders Primary Care Provider: Awa Hargrove Referrals: Awa Hargrove DO [Primary Care Provider] - What to do if you have Problems For any increased pain, shortness of breath, bleeding, nausea or vomiting, chestpain, or any unexpected problems, contact your Primary Care Provider. Call [facility] ([phone]) or report to the closest Emergency Room. Call 911 if necessary. 07/25/232126 <Electronically signed by Valentin Ceballos DO> Cosigner Signature (if applicable): CC: Dr. Awa Hargrove DO ~ Signed [facility] Work Phone: Consult note Author Jules Hudson [facility] December 01, 2023 2:20pm Note Date/Time December 01, 2023 2:2 0pm [facility] Medical Records Department [address] [place] [address] Consultation - Surgical 12/01/23 1416 MR#: [id number] Acct: [id number] Name: KARY HADDAD Rep #:[id number] : 1955 68 From: Jules pope MD [...] proceed with procedure. Jules Hudson MD Pager: [facility] [address] [place] [address], [address] [place] [address] Office: HPI Consult Data Date of Consult: [...] or vomiting. She denies fevers or chills. [facility] Medical History (Updated 12/01/23 @ 14:18 by [...] 71.5 H, Lymph % (Auto) 16.6 L, [place] % (Auto) 8.4, Eos % (Auto) 2.2, [...] applicable): CC: Dr. Awa Hargrove, DO~ Signed [facility] Work Phone: Evaluation noteNo assessment information available [facility] Work Phone: Evaluation note* Diagnosis Onset Date Resolution Status Hypertensive emergency without congestive heart failur e acute Infection acute NSTEMI (non-ST elevated myocardial infarction) acute Resistant hypertension acute CKD (chronic kidney disease) chronic [facility] Work Phone: Evaluation note* Diagnosis Onset Date Resolution Status Infection acute CKD (chronic kidney disease) chronic Hypertensive emergency witho ut congestive heart failure resolved NSTEMI (non-ST elevated myocardial infarction) resolved Resistant hypertension resol garima [facility] Work Phone: Evaluation note* Diagnosis Onset Date Resolution Status Appendicolith acute Back pain acute Duodenal mass acute Leukocytosis acute Upper GI bleed acute [facility] Work Phone: Evaluation note* Diagnosis Onset Date Resolution Status Appendicolith acute Back pain acute Duodenal mass acute Duodenal ulcer acute Leukocytosis acute Upper GI bleed acute [facility] Work Phone: Evaluation note* Diagnosis Duodenal ulcer with hemorrhage Chronic or unspecified duodenal ulcer with hemorrhage, without mention of obstruction [facility] Pre-op examination- Primary Preoperative examination, unspecified Duodenal ulcer with hemorrhage Chronic or unspecified duodenal ulcer with hemorrhage, without mention of obstruction Pre-op examination Preoperative examination, unspecified Coronary artery disease involving hoopa coronary artery of hoopa heart without angina pectoris Adrenal nodule (HCC) Unspecified disorder of adrenal glands Primary hypertension Unspecified essential hypertension Mixed hyperlipidemia Coronary artery disease involving hoopa coronary artery of hoopa heart without angina pectoris Adrenal nodule (HCC) [...] EDT Associated Problem(s): Coronary artery disease involving hoopa coronary artery of hoopa heart without angina pectoris [place] in 07/2023. No cardiac stents. Does not follow with cardiology. Managed by PCP. Patient has all medical care in [place]- unable to access any cardiac imaging through [facility] or Care Everywhere. * Assessment & Plan Note - Noemy Jaramillo APRN.CNP - 03/23/2024 10:48 AM EDT Associated Problem(s): Pre-op examination see note for medical conditions which may affect marco-operative course that were addressed at today's visit. [facility] Diagnosis Pre-op examination- Primary Preoperative examination, unspecified Duodenal ulcer with hemorrhage Chronic or unspecified duodenal ulcer with hemorrhage, without mention of obstruction Pre-op examination Preoperative examination, unspecified Coronary artery disease involving hoopa coronary artery of hoopa heart without angina pectoris Adrenal nodule (HCC) Unspecified disorder of adrenal glands Primary hypertension Unspecified essential hypertension Mixed hyperlipidemia Coronary artery disease involving hoopa coronary artery of hoopa heart without angina pectoris Adrenal nodule (HCC) Unspecified disorder of adrenal glands Mixed hyperlipidemia SDH (subdural hematoma) (HCC)- Primary Subdural hemorrhage [facility] Diagnosis Pre-op examination- Primary Preoperative examination, unspecified Duodenal ulcer with hemorrhage Chronic or unspecified duodenal ulcer with hemorrhage, without mention of obstruction Pre-op examination Preoperative examination, unspecified Coronary artery disease involving hoopa coronary artery of hoopa heart without angina pectoris Adrenal nodule (HCC) Unspecified disorder of adrenal glands Primary hypertension Unspecified essential hypertension Mixed hyperlipidemia Coronary artery disease involving hoopa coronary artery of hoopa heart without angina pectoris Adrenal nodule (HCC) Unspecified disorder of adrenal glands Mixed hyperlipidemia Anemia, unspecified type- Primary [facility] Diagnosis Pre-op examination- Primary Preoperative examination, unspecified Duodenal ulcer with hemorrhage Chronic or unspecified duodenal ulcer with hemorrhage, without mention of obstruction Pre-op examination Preoperative examination, unspecified Coronary artery disease involving hoopa coronary artery of hoopa heart without angina pectoris Adrenal nodule (HCC) Unspecified disorder of adrenal glands Primary hypertension Unspecified essential hypertension Mixed hyperlipidemia Coronary artery disease involving hoopa coronary artery of hoopa heart without angina pectoris Adrenal nodule (HCC) Unspecified disorder of adrenal glands Mixed hyperlipidemia 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, not on chronic dialysis (HCC)- Primary [facility] Diagnosis Onset Date Resolution Status Admit Date Anemia acute May 9:05am Dementia acute May 9:05am [facility] [place] [facility] Work Phone: History and physical note Author Phillip Kingsley [facility] December 01, 2023 3:13pm Note Date/Time December 01, 2023 3:1 2pm [facility] Medical Records Department [address] [place] [address] H&P Exam - Hospitalist 12/01/23 1507 MR#: [id number] Acct: [id number] Name: KARY HADDAD Rep #:[id number] : 1955 68 From: Phillip Kingsley DO PCP: Dr. Awa Hargrove DO Status:ADM PING Location: [place] [address] HPI - General General Date of Admission: [...] plan is for endoscopy on December 01. [facility] Medical History (Updated 12/01/23 @ 15:10 by [...] 71.5 H, Lymph % (Auto) 16.6 L, [place] % (Auto) 8.4, Eos % (Auto) 2.2, [...] with SCDs Charges/Coding Visit Charges Inpatient E&M: 19568 Init Hosp L3 12/01/23 2503 <Electronically signed by Phillip Kingsley DO> Cosigner Signature (if applicable): CC: Dr. Phillip Kingsley DO; Dr. Awa Hargrove DO~ Signed [facility] Work Phone: Reklho for referral (narrative)* Outpatient Procedure (Routine) - Closed Specialty Diagnoses / Procedures Referred By Karely t Referred To Contact [facility] [place] Diagnoses Duodenal ulcer with hemorrhage Procedures EGD DIAGNOSTIC ESOPHAGOGASTRODUODENOSC OPY TRANSORAL DIAGNOSTIC Jules Alvarez MD [address] [place] [address] [address] Referral ID Status Reason Start Date Expiration Date V isits Requested Visits Authorized [id number] Closed Auto-Generate d Referral 02/21/2024 02/20/2025 1 1 [facility] (narrative)No reason for referral information availableWWVUMedicine [facility] Work Phone: Reason for visit Narrative* Outpatient Procedure (Routine) - Closed Specialty Diagnoses / Procedures Referred By Karely t Referred To Contact [facility] [place] Diagnoses Duodenal ulcer with hemorrhage Procedures EGD DIAGNOSTIC ESOPHAGOGASTRODUODENOSC OPY TRANSORAL DIAGNOSTIC Jules Alvarez MD [address] [place] [address] [address] Referral ID Status Reason Start Date Expiration Date V isits Requested Visits Authorized [id number] Closed Auto-Generate d Referral 02/21/2024 02/20/2025 1 1 [facility] Chief Complaint and Reason for Visit [...] Upper GI bleed Chief Complaint Admit Date LONGTERM LABWORK August 27, 2024 5:00am LONGTERM LAB WORK August 31 5:00am LONGTERM LAB WORK September 21, 2024 5:00am LONGTERM LAB WORK November 30, 2024 4 :00am Chief Complaint Admit Date LONGTERM LAB WORK November 30, 2024 4 :00am LONGTERM LAB WORK December 02, 2024 5: 00am LABWORK January 13, 2025 5:00a m Chief Complaint Admit Date LONGTERM LAB WORK February 12, 2025 7: 15am LONGTERM LAB WORK March 30, 2025 1: 10am LONGTERM LAB WORK April 06, 2025 4 :00am LABWORK May 04, 2025 5:00am DECLINING MENTAL STATUS May 17, 2025 9:05am Reason for Visit Admit Date Anemia May 17, 2025 9:05am Dementia May 17, 2025 9:05am Chief Complaint Admit Date LONGTERM LAB WORK February 12, 2025 7: 15am LONGTERM LAB WORK March 30, 2025 1: 10am LONGTERM LAB WORK April 06, 2025 4 :00am [...] July 25, 2 023 5:08pm Power of Telephone Installer No July 25, 2023 5:08pm Advance Directive Response Recorded Date/ Time Living Will No July 25, 023 10:10pm Power of Telephone Installer No July 25, 2023 10:10pm Advance Directive Response Recorded Date/ Time Living Will No December 01, 2023 10:38am Power of Telephone Installer No November 30 10:38am Advance Directive Response Recorded Date/ Time Living Will No December 01, 2023 3:43pm Power of Telephone Installer No November 30 3:43pm Date Activated Date [...] CONTRAST MATERIAL Becca Garcia, R[address] [address] [place] [address] [place] [address] Referral ID Status Reason Start Date Expiration Date Visits Requested Visits Authorized [id number] New Request Auto-Generat ed Referral 4 07/20/2025 [...] , DO Primary Care Provider Active Dr. Zelalem [...] Dr. Ronald Lowe MD Attending Provider Active Graduate Nurse Relationship Specialty Start Date End Date Awa Hargrove DO [address] [place] [address] PCP - General Family Medicine 02/19/24 Graduate Nurse Relationship Specialty Start Date End Date Awa Hargrove DO [address] [place] [address] PCP - General Family Medicine 02/19/24 Graduate Nurse Relationship Specialty Start Date End Date Awa Hargrove DO [address] [place] [address] PCP - General Family Medicine 02/19/24 Graduate Nurse Relationship Specialty Start Date End Date Awa Hargrove DO [address] [place] [address] PCP - General Family Medicine 02/19/24 Graduate Nurse Relationship Specialty Start Date End Date Awa Hargrove DO [address] [place] [address] PCP - General Family Medicine 02/19/24 Graduate Nurse Relationship Specialty Start Date End Date Awa Hargrove DO [address] [place] [address] PCP - General Family Medicine 02/19/24 Team Status: Active Member Role Status Dates Dr. Awa Hargrove DO Family Provider Active Dr. Phuc Barker MD Primary Care Provider Active Team Status: Inactive Member Role Status Dates Dr. Phuc Barker MD Primary Care Provider Active Start: August 27, 2024 End: August 27, 2024 [facility] Attending Provider Active Start: August End: [...] January 13, 2025 End: January 13, 2025 Graduate Nurse Relationship Specialty Start Date End Date Devendra Beverly DO [address] [place] [address] PCP - General Family Medicine 04/20/25 Team [...] care physician Active Start: June 01, 2025 [facility] Attending physician Active Start: May Source Comments (unrecognize d section and content) In the event this informatio n is protected by the Federal Confidentiality of Alcohol and Drug Abuse Patient Records regulations: The Federal rules restrict any use of the information to criminally investigate or prosecute any alcohol or drug abuse patient.[facility] HospitalIn the event this information is protected by the Federal Confidentiality of Alcohol and Drug Abuse Patient Records regulations: The Federal rules restrict any use of the information to criminally investigate or prosecute any alcohol or drug abuse patient.[facility] HospitalIn the event this information is protected by the Federal Confidentiality of Alcohol and Drug Abuse Patient Records regulations: The Federal rules restrict any use of the information to criminally investigate or prosecute any alcohol or drug abuse patient.[facility] HospitalIn the event this information is protected by the Federal Confidentiality of Alcohol and Drug Abuse Patient Records regulations: The Federal rules restrict any use of the information to criminally investigate or prosecute any alcohol or drug abuse patient.[facility] HospitalIn the event this information is protected by the Federal Confidentiality of Alcohol and Drug Abuse Patient Records regulations: The Federal rules restrict any use of the information to criminally investigate or prosecute any alcohol or drug abuse patient.[facility] HospitalIn the event this information is protected by the Federal Confidentiality of Alcohol and Drug Abuse Patient Records regulations: The Federal rules restrict any use of the information to criminally investigate or prosecute any alcohol or drug abuse patient.[facility] HospitalIn the event this information is protected by the Federal Confidentiality of Alcohol and Drug Abuse Patient Records regulations: The Federal rules restrict any use of the information to criminally investigate or prosecute any alcohol or drug abuse patient.[facility] HospitalIn the event this information is protected by the Federal Confidentiality of Alcohol and Drug Abuse Patient Records regulations: The Federal rules restrict any use of the information to criminally investigate or prosecute any alcohol or drug abuse patient.[facility] HospitalIn the event this information is protected by the Federal Confidentiality of Alcohol and Drug Abuse Patient Records regulations: The Federal rules restrict any use of the information to criminally investigate or prosecute any alcohol or drug abuse patient.[facility] Reason for Visit (unrecogniz ed section and content) Specialty Diagnoses / Procedures Referred By Contac t Referred To Contact CT IMAGING Diagnoses Duodenal ulcer with hemorrhage Procedures CT ABD/PEL W IVCON CT ABD & PELVIS W/CONTRAST Jules Alvarez MD [address] [place] [address] [place] [address] Referral ID Status Reason Start Date Expiration Date V isits Requested Visits Authorized [id number] Closed Auto-Generate d Referral 02/19/2024 03/20/2025 1 [address] Specialty Diagnoses / Procedures Referred By Contac t Referred To Contact CT IMAGING Diagnoses Duodenal ulcer with hemorrhage Procedures CT ABD/PEL W IVCON CT ABD & PELVIS W/CONTRAST Jules Alvarez MD [address] [place] [address] [place] [address] Reason Comments CoPat Start Reason Comments Electronic Communication Reason Comments New Patient Evaluation INFORMATION SOURCE (unrecogn ized section and content) DATE CREATED AUTHOR 05/16/2025 [facility] DATE CREATED AUTHOR AUTHOR'S ORGANIZ ATION 06/08/2025 [facility] DATE CREATED AUTHOR AUTHOR'S ORGANIZ ATION 07/16/[address] [facility] FOR RECORDS PERTAINING TO PATIENTS WHO [...] BE BASED ON THE PRIMARY CLINICAL RECORDS. [employer] provides no warranty or guarantee of the accuracy or completeness of information in this document.
[2025-08-24 08:41] LABS: Hematocrit 27.2 % (37-47); Hemoglobin 8.8 g/dL (12.0-15.0); Mean Corp Hgb Conc 32.4 g/dL (32-36); Mean Corpuscular Volume 95.8 fL (81-99); Mean Platelet Vol. 10.7 fl (6.2-12.0); Platelet Count 329 K/mm3 (150-450); RBC Distribution Width CV 11.8 % (11.6-14.6); RBC Distribution Width SD 41.1 fl (35.1-43.9); Red Blood Count 2.84 M/mm3 (4.2-5.4); White Blood Count 9.3 K/mm3 (4.4-11.0)
[2025-08-24 08:54] LABS: AST(SGOT) 15 U/L (<=31); Alanine Aminotransfer ALT/SGPT 11 U/L (<=34); Albumin, Serum 4.0 g/dL (3.4-4.8); Alkaline Phosphatase 80 U/L (35-104); Anion Gap 15 (7-18); BUN 55 mg/dL (4-19); BUN/Creat Ratio 11.4 RATIO (10-20); Calcium,Total 9.1 mg/dL (7.6-11.0); Carbon Dioxide 21.7 mmol/L (20.0-29.0); Chloride 104 mmol/L (96-106); Globulin 2.2 g/dL (2.2-4.2); Glucose 134 mg/dL (70-99); Potassium 3.8 mmol/L (3.5-5.1)
== END ==
LOC: OLS.SW 05:00
PROVIDERS: PCP Family Medicine; Visit Provider Internal Medicine Nephrology
DX: Z79.899 Other long term (current) drug therapy (principal); N18.9 Chronic kidney disease, unspecified
CPT/HCPCS: 36415; 80053; 85027